=== PATIENT | female | born 1965 | race Caucasian/White ===

== ENCOUNTER → 2016-12-16 | Day surgery (SDC) | payer OTHER ==
[2016-12-15 09:14] VITALS: Ht 170.2 cm; Wt 95.5 kg
[~2016-12-16] VITALS: Ht 170.2 cm; Wt 95.5 kg
[~2016-12-16] MED LIST: AMLO2.5T PO; ASPI81TA28 PO; ATOR-26 PO; ATV/1 PO; CANA1TAB PO; DICY20TA10 PO; INSHI7030 SC; KFL500 PO; LCTX PO; LEVO175T3 PO; LIDOCAINE HCL 2% 2 ML VIAL (20MG/ML) ONE; LXP/20 PO; METF-384 PO; MIDAZOLAM HCL 1 MG/ML 2ML VIAL ONE; OMEP20CA9 PO; PROPOFOL IV EMULSION 10 MG/ML 20 ML VIAL IV ONE; TPRSR/25 PO
[2016-12-16 09:07] VITALS: TEMP 37
--- NOTE | 2016-12-16 09:55 | Endo History and Physical ---
History & Physical Date of Service: Dec 16, 2016. Chief Complaint: diarrhea and dyspepsia Referring Physician: Dr. Oralia Mccoy History of Present Illness ABd pain, diarrhea Past Medical History Diabetes, Anxiety, Cancer, Thyroid Disease, Depression Past Surgical History Hx Cardiac Surgery: No Hx Internal Defibrillator: No Hx Pacemaker: No Hx Abdominal Surgery: Yes (ZACKARY) Hx of Implantable Prosthesis: No Hx Post-Op Nausea and Vomiting: No Hx Cancer Surgery: Yes (THRYOIDECTOMY) Hx Thoracic Surgery: No Hx Orthopedic: Yes (LT FEMUR TUMOR REMOVAL X2 (BENIGN)) Hx Urinary Tract Surgery: No Family History None Social History Smoking Status: Never Smoker Hx Substance Use: No Hx Alcohol Use: No Allergies Coded Allergies: NO KNOWN DRUG ALLERGIES (Verified Allergy, Unknown, ., 12/15/16) Adhesives (Verified Adverse Reaction, Mild, TAPE-RASH, 12/15/16) Current Medications Reported Home Medications Medications Dose Route/Sig Max Daily Dose Days Date Category Dicyclomine Hcl 20 Mg Tab 2 Tabs PO HS 12/15/16 Reported Invokana (Canagliflozin) 100 Mg Tab 1 Tab PO QAM 12/15/16 Reported Ativan (Lorazepam) 1 Mg Tab 1 Mg PO Q6H PRN 12/15/16 Reported Aspirin Ec (Aspirin) 81 Mg Tab 81 Mg PO QAM 06/20/16 Reported Humulin 70/30 (Insulin Human Isoph/Insulin Regular) Inj 50 Units SC BID 06/20/16 Reported Glucophage (Metformin Hcl) 1,000 Mg Tab 1,000 Mg PO BID 06/20/16 Reported Metoprolol Succinate ER (Metoprolol Succinate) 25 Mg Tabcr 25 Mg PO HS 06/20/16 Reported Norvasc (Amlodipine Besylate) 2.5 Mg Tab 2.5 Mg PO HS 06/20/16 Reported Lipitor (Atorvastatin Calcium) 80 Mg Tab 80 Mg PO HS 06/20/16 Reported Ativan (Lorazepam) 1 Mg Tab 2 Tabs PO HS 06/20/16 Reported Escitalopram Oxalate 20 Mg Tab 20 Mg PO HS 06/20/16 Reported Prilosec (Omeprazole) 20 Mg Cap 20 Mg PO HS 09/26/14 Reported Levothyroxine Sodium 175 Mcg Tab 175 Mg PO HS 09/26/14 Reported Vital Signs Weight (Kilograms): 95.45 Height (Feet): 5 Height (Inches): 7 Date Time Temp Pulse Resp B/P Pulse Ox O2 Delivery O2 Flow Rate FiO2 12/16/16 09:07 37 70 20 137/76 98 Room Air Physical Exam General Appearance: no apparent distress Respiratory/Chest: Respiratory effort: no dyspnea Auscultation: breath sounds normal Cardiovascular: Heart Auscultation: RRR Abdomen: Inspection & Palpation: soft Assessment and Plan Abd pain, diarrhea - EGD, cscopy
--- NOTE | 2016-12-16 11:00 | GI REPORT ---
Procedure Date: 12/16/2016 9:23 AM Procedure: Upper GI endoscopy Indications: Abdominal pain - Pt describes left and right flank pain. Pain described as sharp, constant, not associated with food, worse when she lies on her left side. Medicines: See the Anesthesia note for documentation of the administered medications Complications: No immediate complications. Estimated Blood Loss: Estimated blood loss: none. Procedure: Pre-Anesthesia Assessment: - ASA Grade Assessment: III - A patient with severe systemic disease. After obtaining informed consent, the endoscope was passed under direct vision. Throughout the procedure, the patient's blood pressure, pulse, and oxygen saturations were monitored continuously. The scope was introduced through the mouth, and advanced to the second part of duodenum. The upper GI endoscopy was accomplished without difficulty. The patient tolerated the procedure well. Findings: The Z-line was irregular and was found 38 cm from the incisors. Biopsies were taken with a cold forceps for histology. The entire examined stomach was normal. Biopsies were taken with a cold forceps for histology. The examined duodenum was normal. Biopsies were taken with a cold forceps for histology. Impression: - Z-line irregular, 38 cm from the incisors. Biopsied. - Normal stomach. Biopsied. - Normal examined duodenum. Biopsied. Recommendation: - F/u with referring; please refer to GI clinic if needed. Her pain is likely functional; Would consider a trial of Bentyl for possible IBS/dysmotility. - Discharge patient to home. Alexey Urbina M.D. Alexey Urbina MD 12/16/2016 11:00:06 AM This report has been signed electronically. Note Initiated On: 12/16/2016 9:23 AM I attest to the content of the Intraoperative Record and orders documented therein, exceptions below
[2016-12-16 11:23] VITALS: BP 118/63; PULSE 66; O2SAT 99
--- NOTE | 2016-12-16 12:06 | Discharge Instructions ---
Endoscopy Patient Instructions Date / Procedure(s) Performed Dec 16, 2016. Colonoscopy, EGD Allergy Information Coded Allergies: NO KNOWN DRUG ALLERGIES (Verified Allergy, Unknown, ., 12/15/16) Adhesives (Verified Adverse Reaction, Mild, TAPE-RASH, 12/15/16) Discharge Date / Findings Dec 16, 2016. Normal colon. Unremarkable EGD. Biopsies done throughout. Medication Instructions Stopped Medication(s): stopped Metformin Wednesday,took ASA yesterday Restart Stopped Medication(s): Resume metformin, asa today. Provider Instructions Activity Restrictions - No exercising or heavy lifting for 24 hours. - Do not drink alcohol the day of the procedure. - Do not drive a car or operate machinery until the day after the procedure. - Do not make any important decisions or sign important papers in 24 hours after the procedure. Following Day: - Return to full activity which may include returning to work/school. Diet Start your diet with liquids and light foods (jello, soup, juice, toast). Then eat your usual diet if not nauseated. Treatment For Common After Affects For mild abdominal pain, bloating, or excessive gas: - Rest - Eat lightly - Lie on right side Follow-Up Information Follow-up with Dr. Oralia Mccoy as scheduled Anesthesia Information What You Should Know You have had a procedure that required some medicine to reduce anxiety and discomfort. This treatment is called moderate sedation. After receiving the treatment, you may be sleepy, but you will be able to breathe on your own. The effects of the treatment may last for several hours. Follow these instructions along with Activity/Diet recommendations noted above: * Do NOT do anything where dizziness or clumsiness would be dangerous. * Rest quietly at home today, then you can be up and about tomorrow. * Have a responsible person stay with you the rest of today. * You may have had an I.V. today. If so, you may take the dressing off later today. Recommendations Call your doctor if: * Trouble breathing * Continuous vomiting for more than 24 hours * Temperature above 101 degrees * Severe abdominal pain or bloating * Pain not relieved by pain medicine ordered * There is increased drainage or redness from any incision * A large amount of rectal bleeding greater than 2-3 tablespoons. (If you had a polyp/s removed or have hemorrhoids, a small amount of blood - from the rectum is to be expected.) * You have any unanswered questions or concerns. IN THE EVENT OF A SERIOUS EMERGENCY, GO TO THE NEAREST EMERGENCY ROOM Your discharge instructions were prepared by provider Aleexy Kraus. Patient Instructions Signature Page Juany Resendez Patient (or Guardian) Signature/Date: I have read and understand the instructions given to me by my caregivers. Caregiver/RN/Doctor Signature/Date: The above-named patient and/or guardian has received patient instructions on this date. + Original Patient Signature Page (only) stays with chart. Please make copy for patient.
--- NOTE | 2016-12-16 14:01 | Anesthesiology Progress Note ---
Anesthesia Post Op Note Date & Time Dec 16, 2016 at 14:01 Vital Signs Pain Intensity: 0 Vital Signs Past 12 Hours Date Time Temp Pulse Resp B/P Pulse Ox O2 Delivery O2 Flow Rate FiO2 12/16/16 11:23 66 20 118/63 99 Room Air 12/16/16 11:08 72 20 103/61 98 Room Air 12/16/16 10:53 72 20 101/55 96 Room Air 12/16/16 09:07 37 70 20 137/76 98 Room Air Notes Mental Status: alert / awake / arousable, participated in evaluation Pt Amnestic to Procedure: Yes Nausea / Vomiting: adequately controlled Pain: adequately controlled Airway Patency, RR, SpO2: stable & adequate BP & HR: stable & adequate Hydration State: stable & adequate Anesthetic Complications: no major complications apparent
[2016-12-17 21:35] LABS: O&P GIARDIA AG NOT DETECTED (NOT DETECTED)
== END | disposition home or self-care (01) ==
LOC: C.GI 08:10
PROVIDERS: ATTEND Internal Medicine Gastroenterology
DX: Z12.11 Encounter for screening for malignant neoplasm of colon (principal); D12.2 Benign neoplasm of ascending colon; K29.50 Unspecified chronic gastritis without bleeding; R19.7 Diarrhea, unspecified; R10.13 Epigastric pain; E11.9 Type 2 diabetes mellitus without complications; Z79.4 Long term (current) use of insulin; Z79.899 Other long term (current) drug therapy; E07.9 Disorder of thyroid, unspecified

== ENCOUNTER 2017-05-04 17:30 | Observation (INO) | payer OTHER ==
[~2017-05-04] VITALS: Ht 170.2 cm; Wt 95.4 kg
[~2017-05-04 17:30] MED LIST changes: -KFL500 PO; -LCTX PO; -LIDOCAINE HCL 2% 2 ML VIAL (20MG/ML) ONE; -MIDAZOLAM HCL 1 MG/ML 2ML VIAL ONE; -PROPOFOL IV EMULSION 10 MG/ML 20 ML VIAL IV ONE
--- NOTE | 2017-05-04 18:17 | DIAGNOSTIC IMAGING REPORT ---
CHEST ONE VIEW PORTABLE CLINICAL HISTORY: weakness dyspnea COMPARISON STUDY: 06/20/2016 FINDINGS: The bones soft tissues and hemidiaphragms are normal. The cardiomediastinal silhouette is normal. The lungs are clear. The pulmonary vasculature is normal. IMPRESSION: Negative chest. Electronically signed by: Christian Hughes M.D. 05/04/2017 6:16 PM Dictated Date/Time: 05/04/2017 6:15 PM
[2017-05-04 18:31] LABS: BASO % 0.7 %; BASO ABS # 0.09 K/uL (0-0.2); COMPLETE YES; EOS % 4.1 %; IG% 0.8 %; LYMPH % 26.1 %; LYMPH ABS # 3.45 K/uL (1.2-3.4); MEAN CELL VOLUME 86.6 fL (80-100); MEAN CORPUSCULAR HEMOGLOBIN 28.9 pg (25-34); MEAN CORPUSCULAR HGB CONC 33.4 g/dl (32-36); MEAN PLATELET VOLUME 9.6 fL (7.4-10.4); MONO % 7.8 %; NEUT % 60.5 %; PLATELET COUNT 320 K/uL (130-400); RED BLOOD COUNT 5.43 M/uL (4.2-5.4); WHITE BLOOD COUNT 13.23 K/uL (4.8-10.8)
[2017-05-04 18:49] LABS: ALT/SGPT 27 U/L (12-78); BLOOD UREA NITROGEN 19 mg/dl (7-18); BUN/CREATININE RATIO 24.6 (10-20); CALCIUM 9.3 mg/dl (8.5-10.1); CARBON DIOXIDE 26 mmol/L (21-32); CHLORIDE 102 mmol/L (98-107); CREATININE 0.79 mg/dl (0.60-1.20); GLUCOSE 135 mg/dl (70-99); MAGNESIUM 1.9 mg/dl (1.8-2.4); SODIUM 137 mmol/L (136-145)
[2017-05-04 18:55] LABS: PROTHROMBIN TIME (PATIENT) 10.2 SECONDS (9.0-12.0)
[2017-05-04 18:59] LABS: ALB/GLOB RATIO 0.9 (0.9-2); ALKALINE PHOSPHATASE 84 U/L (45-117); AST/SGOT 16 U/L (15-37)
[2017-05-04 19:39] LABS: URINE APPEARANCE CLOUDY (CLEAR); URINE BILIRUBIN NEG (NEG); URINE COLOR YELLOW; URINE EPITHELIAL CELL AUTO >30 /lpf (0-5); URINE NITRITE NEG (NEG); URINE SPECIFIC GRAVITY 1.032 (1.000-1.030); UROBILINOGEN NEG (NEG); ZZUR CULT IF INDIC CLEAN CATCH YES
[2017-05-04 19:42] LABS: MANUAL MICROSCOPIC REQUIRED? NO; REVIEW REQ? NO
[2017-05-04] MEDS ORDERED: SODIUM CHLORIDE 0.9% 1000ML 1,000 ML IV STA (19:45)
[2017-05-04] MEDS ORDERED: CEFTRIAXONE SOD INJ 1 GM ADDVIAL IV STA (19:45)
[2017-05-04 19:47] LABS: LYME DISEASE AB IGG NEG (NEG); LYME DISEASE AB IGM NEG (NEG)
--- NOTE | 2017-05-04 20:53 | EMERGENCY ROOM VISIT NOTE ---
History Report prepared by Maximilian: Fiorella Landry Under the Supervision of: Dr. Marti Talbot D.O. First contact with patient: 17:39 Chief Complaint: BILATERAL LEG WEAKNESS Stated Complaint: WEAKNESS IN ARMS & LEGS History of Present Illness The patient is a 52 year old female who presents to the Emergency Room with complaints of persistent bilateral arm and leg weakness starting 1 month ago. The patient was sent here by her PCP for blood work and possible admission. She notes that her arms and legs are sore. She has been taking ibuprofen to no significant relief. She thought she might have the flu at first, but is concerned because her symptoms have not improved. She reports that her legs are itchy, red, and warm. She denies any cough, diarrhea, SOB, or cold symptoms. She has been urinating often because of Invokana. She denies any sick contacts or recent travel. She was started on Invokana 1 month ago. Pt isn't sure if medication is related to this. She denies any other medication changes. Denies sick contacts. She is on aspirin. She has a history of HI and stroke. Source of History: patient Onset: 1 month ago Position: other (bilateral arms and legs) Quality: other (weakness) Timing: other (persistent) Associated Symptoms: No cough, No SOB, No diarrhea Note: Pt reports extremity warmth, redness, itchiness, and soreness. Pt denies cold symptoms. Review of Systems See HPI for pertinent positives & negatives. A total of 10 systems reviewed and were otherwise negative. Past Medical & Surgical Medical Problems: (1) Anxiety (2) Diabetes mellitus, type II (3) History enchondroma of left femur (4) History of thyroid cancer (5) History of toxic multinodular goiter (6) Obsessive compulsive disorder (7) Postsurgical hypothyroidism Surgical Problems: (1) Status post cholecystectomy (2) Status post excision enchondroma left femur (3) Status post thyroidectomy Family History Diabetes mellitus BROTHER BROTHER Myocardial infarction FATHER Ovarian cancer MOTHER Social History Smoking Status: Never Smoker Alcohol Use: none Marital Status: single Housing Status: lives with significant other Occupation Status: unemployed Current/Historical Medications Scheduled Amlodipine Besylate (Norvasc), 2.5 MG PO HS Aspirin (Aspirin Ec), 81 MG PO QAM Atorvastatin (Lipitor), 80 MG PO HS Canagliflozin (Invokana), 1 TAB PO QAM Cephalexin Monohydrate (Cephalexin), 500 MG PO TID Dicyclomine Hcl (Dicyclomine Hcl), 2 TABS PO HS Escitalopram Oxalate (Escitalopram Oxalate), 20 MG PO HS Insulin Human Isophan/Regular (Humulin 70/30), 50 UNITS SC BID Lactobacillus Acidophilus (Lactinex), 2 TAB PO TID Levothyroxine Sodium (Levothyroxine Sodium), 175 MG PO HS Lorazepam (Ativan), 2 TABS PO HS Metformin Hcl (Glucophage), 1,000 MG PO BID Metoprolol Succinate (Metoprolol Succinate ER), 25 MG PO HS Omeprazole (Prilosec), 20 MG PO HS Allergies Coded Allergies: NO KNOWN DRUG ALLERGIES (Verified Allergy, Unknown, ., 05/04/17) Adhesives (Verified Adverse Reaction, Mild, TAPE-RASH, 05/04/17) Physical Exam Vital Signs Date Time Temp Pulse Resp B/P (MAP) Pulse Ox O2 Delivery O2 Flow Rate FiO2 05/04/17 22:00 69 20 116/73 95 Room Air 05/04/17 19:38 74 20 119/76 95 Room Air 05/04/17 17:34 36.7 79 18 121/80 96 Room Air Physical Exam GENERAL: alert, well appearing, well nourished, no distress, non-toxic EYE EXAM: normal conjunctiva, PERRL and EOM's grossly intact OROPHARYNX: no exudate, no erythema, lips, buccal mucosa, and tongue normal and mucous membranes are moist NECK: supple, no nuchal rigidity, no adenopathy, non-tender LUNGS: Clear to auscultation. Normal chest wall mechanics HEART: no murmurs, S1 normal and S2 normal ABDOMEN: abdomen soft, non-tender, normo-active bowel sounds, no masses, no rebound or guarding. BACK: Back is symmetrical on inspection and there is no deformity, no midline tenderness, no CVA tenderness. SKIN: no rashes and no bruising EXTREMITIES: No pitting edema. Normal capillary refill. NEURO EXAM: Normal speech, no facial droop, markedly diminished reflexes in upper and lower extremities bilaterally, weakness in upper and lower extremities in proximal and distal muscles groups. Medical Decision & Procedures ER Provider Diagnostic Interpretation: Xray results have been interpreted by the radiologist and me. CHEST ONE VIEW PORTABLE CLINICAL HISTORY: weakness dyspnea COMPARISON STUDY: 06/20/2016 FINDINGS: The bones soft tissues and hemidiaphragms are normal. The cardiomediastinal silhouette is normal. The lungs are clear. The pulmonary vasculature is normal. IMPRESSION: Negative chest. Electronically signed by: Christian Hughes M.D. 05/04/2017 6:16 PM Dictated Date/Time: 05/04/2017 6:15 PM Laboratory Results 05/04/17 18:15 Test 05/04/17 18:15 05/04/17 18:45 05/04/17 18:50 Prothrombin Time 10.2 SECONDS (9.0-12.0) Prothromb Time International Ratio 1.0 (0.9-1.1) Anion Gap 9.0 mmol/L (3-11) Est Creatinine Clear Calc Drug Dose 96.6 ml/min Estimated GFR () 98.4 Estimated GFR (Non- 84.9 BUN/Creatinine Ratio 24.6 (10-20) Estimated Average Glucose 174 mg/dl Hemoglobin A1c 7.7 % (4.5-5.6) Calcium Level 9.3 mg/dl (8.5-10.1) Magnesium Level 1.9 mg/dl (1.8-2.4) Total Bilirubin 0.5 mg/dl (0.2-1) Aspartate Amino Transf (AST/SGOT) 16 U/L (15-37) Alanine Aminotransferase (ALT/SGPT) 27 U/L (12-78) Alkaline Phosphatase 84 U/L (45-117) Troponin I < 0.015 ng/ml (0-0.045) Total Protein 8.2 gm/dl (6.4-8.2) Albumin 3.8 gm/dl (3.4-5.0) Globulin 4.4 gm/dl (2.5-4.0) Albumin/Globulin Ratio 0.9 (0.9-2) Lipase 162 U/L (73-393) Thyroid Stimulating Hormone (TSH) 2.480 uIu/ml (0.300-4.500) Rapid Plasma Reagin NONREACTIVE (NONREACT) Lyme Disease IgG Antibody NEG (NEG) Lyme Disease IgM Antibody NEG (NEG) Monoscreen NEG (NEG) Urine Color YELLOW Urine Appearance CLOUDY (CLEAR) Urine pH 5.0 (4.5-7.5) Urine Specific [place] 1.032 (1.000-1.030) Urine Protein NEG (NEG) Urine Glucose (UA) 3+ (NEG) Urine Ketones NEG (NEG) Urine Occult Blood TRACE (NEG) Urine Nitrite NEG (NEG) Urine Bilirubin NEG (NEG) Urine Urobilinogen NEG (NEG) Urine Leukocyte Esterase MODERATE (NEG) Urine WBC (Auto) >30 /hpf (0-5) Urine RBC (Auto) 0-4 /hpf (0-4) Urine Hyaline Casts (Auto) 1-5 /lpf (0-5) Urine Epithelial Cells (Auto) >30 /lpf (0-5) Urine Bacteria (Auto) 1+ (NEG) Influenza Type A Antigen Neg for Influ A (NEG) Influenza Type B Antigen Neg for Influ B (NEG) Date/Time Source Procedure Growth Status 05/04/17 18:45 Urine , Clean Catch Urine Culture - Final THREE TYPES OF ORGANISMS PRESENT, ALL... Complete Laboratory results per my review. Medications Administered Medications (Trade) Dose Ordered Sig/Angie Route Start Time Stop Time Status Last Admin Dose Admin Ceftriaxone Sodium (Rocephin Inj) 1 gm NOW STAT IV 05/04/17 19:45 05/04/17 19:47 DC 05/04/17 19:58 1 GM Sodium Chloride 1,000 ml @ 999 mls/hr Q1H1M STAT IV 05/04/17 19:45 05/04/17 20:45 DC 05/04/17 19:45 999 MLS/HR ECG Indication: weakness Rate (beats per minute): 75 Rhythm: sinus rhythm Findings: Q waves (lead 3, aVF), RBBB, no acute ischemic change, other (normal axis) Comparison ECG Date: 20-Jun-2016 Change: no significant change ED Course 1750: The patient was evaluated in room B4B. A complete history and physical exam was performed. 0: I discussed the patient's case with the patient's PCP, Dr. Mccoy, [facility]. She informed me of her concerns regarding the patient. She feels pt needs admission and possible neurology evaluation. 0: Upon reevaluation, the patient is resting comfortably. I discussed the findings and the treatment plan with the patient. She expresses agreement and understanding. She will be evaluated for further management. 1944: NSS 1000 ml @ 999 mls/hr IV, Rocephin Inj 1 gm IV. 2045: I reviewed the patient's [facility] will evaluate the patient for further management. Medical Decision Differential diagnosis: Etiologies such as metabolic, infection, hypo/hyperglycemia, electrolyte abnormalities, cardiac sources, intracerebral event, toxicologic, neurologic, as well as others were entertained. Medication Reconciliation: I attest that I have personally reviewed the patient' s current medication list. Blood pressure screening: Patient was found to have normal blood pressure on screening and does not require follow-up. Pt well appearing here but with appreciable weakness and diminished reflexes with mild ataxia. VS stable. Labs reassuring. Early UTI but doubt etiology for one month of symptoms. Pt aware of all results here and PCP recommendation. Pt agreeable. No clear etiology, doubt cva/ICH, meningitis/ encephalitis. Did not feel pt warranted LP at this time. No evidence of bacteremia/sepsis, doubt vascular etiology. Consults Time Called: 1809 Consulting Physician: Caroline Gomes - [facility] Returned Call: [phone] I discussed the patient's case with her. She informed me of her concerns regarding the patient. Additional Consults: Time Called: 2005 [facility] Returned Call: 2045 Additional Comments: I reviewed the patient's case with him. He will evaluate the patient for further management. Impression Primary Impression: Generalized weakness Additional Impressions: Ataxia UTI (urinary tract infection) Scribe Attestation The scribe's documentation has been prepared under my direction and personally reviewed by me in its entirety. I confirm that the note above accurately reflects all work, treatment, procedures, and medical decision making performed by me. Departure Information Dispostion Being Evaluated By Hospitalist Prescriptions Lactobacillus Acidophilus (Lactinex) Tab 2 TAB PO TID, #30 TAB Prov: Richi Thornton M.D. 05/06/17 Cephalexin Monohydrate (Cephalexin) 500 Mg Cap 500 MG PO TID for 3 Days, #10 CAP Prov: Richi Thornton M.D. 05/06/17 Referrals Oralia Mccoy M.D. (PCP) Patient Instructions My [facility] Problem Qualifiers Additional Impressions: UTI (urinary tract infection) Urinary tract infection type: acute cystitis Hematuria presence: without hematuria Qualified Codes: N30.00 - Acute cystitis without hematuria
--- NOTE | 2017-05-04 21:49 | DIAGNOSTIC IMAGING REPORT ---
HEAD CT NONCONTRAST CT DOSE: 614.27 mGy.cm HISTORY: Mental status change arms, legs weakness TECHNIQUE: Multiaxial CT images of the head were performed without the use of intravenous contrast. Comparison: None. Findings: The paranasal sinuses and mastoid air cells are clear. The calvarium and skull base are intact. The ventricles and sulci are within normal limits. There is no mass, hematoma, midline shift, or acute infarct. Impression: No acute intracranial abnormality. Electronically signed by: Christian Hughes M.D. 05/04/2017 9:47 PM Dictated Date/Time: 05/04/2017 9:47 PM
[2017-05-04] MEDS ORDERED: INSULIN ASPART 100 UNITS/ML 3 ML PEN SC ONE (22:20)
[2017-05-04] MEDS ORDERED: KETOROLAC TROMETHAMINE 30 MG/ML VIAL IV ONE (22:20)
[2017-05-04] MEDS ORDERED: KETOROLAC TROMETHAMINE 30 MG/ML VIAL IV PRN (22:30)
[2017-05-04] MEDS ORDERED: GLUCAGON FOR INJ 1 MG VIAL SQ PRN (22:30)
[2017-05-04] MEDS ORDERED: GLUCOSE 10 TABS/TUBE PO PRN (22:30)
[2017-05-04] MEDS ORDERED: IBUPROFEN 200 MG TAB PO PRN (22:30)
[2017-05-04] MEDS ORDERED: TRAMADOL HCL 50 MG TAB PO PRN (22:30)
[2017-05-04] MEDS ORDERED: ACETAMINOPHEN 325 MG TAB PO PRN (22:30)
[2017-05-04] MEDS ORDERED: SODIUM CHLORIDE 0.9% 1000ML 1,000 ML IV ONE (22:30)
[2017-05-04] MEDS ORDERED: ONDANSETRON INJ 2 MG/ML 2 ML VIAL IV PRN (22:30)
[2017-05-04] MEDS ORDERED: GLUCOSE 40% GEL 15 GM TUBE PO PRN (22:30)
[2017-05-04] MEDS ORDERED: DEXTROSE 50% 50 ML SYR IV PRN (22:30)
[2017-05-04] MEDS ORDERED: IV FLUIDS COMPLETED PRN (23:00)
[2017-05-05] VITALS (7 sets, daily range): BP systolic 116–133; BP diastolic 73–96; PULSE 63–75; TEMP 36.7; O2SAT 97–98; Ht 170.2 cm; Wt 95.4 kg
[2017-05-05] MEDS ORDERED: GADAVIST IV PRN (01:00)
[2017-05-05] MEDS: LEVOTHYROXINE 175 MCG TAB PO SCH ×2 (01:27→19:54)
--- NOTE | 2017-05-05 01:48 | History and Physical ---
History & Physical Date & Time of Service: May 05, 2017 at 01:43 Chief Complaint: legs, arms weakness Primary Care Physician: Oralia Mccoy M.D. History of Present Illness Source: patient, clinic records, hospital records Last month patient started on Invokana by PCP for diabetes. Improved blood sugars. Patient recalls not feeling well after starting medication. Flulike symptoms. Patient later noted achy weakness both legs and arms, more of the legs. Some trouble walking. No headache no chest pain no shortness of breath. Denies abdominal discomfort or bladder symptoms. No unusual back pain. Patient sent to the ER by PCP for worsening symptoms. At the emergency room, patient received ceftriaxone for possible UTI. Past Medical/Surgical History Medical Problems: (1) Anxiety Status: Chronic (2) Diabetes mellitus, type II Status: Chronic (3) History enchondroma of left femur Status: Chronic (4) History of thyroid cancer Status: Chronic (5) History of toxic multinodular goiter Status: Chronic (6) Obsessive compulsive disorder Status: Chronic (7) Postsurgical hypothyroidism Status: Chronic Surgical Problems: (1) Status post cholecystectomy Status: Chronic (2) Status post excision enchondroma left femur Status: Chronic (3) Status post thyroidectomy Status: Chronic Family History Diabetes mellitus BROTHER BROTHER Myocardial infarction FATHER Ovarian cancer MOTHER Social History Smoking Status: Former Smoker Alcohol Use: none Marital Status: single Housing status: lives with significant other Occupational Status: unemployed, disabled Immunizations History of Influenza Vaccine: No History of Tetanus Vaccine?: No Tetanus Immunization Date: Feb 06, 2009 History of Pneumococcal: No History of Hepatitis B Vaccine: Unknown Multi-Drug Resistant Organisms History of MDRO: No Allergies Coded Allergies: NO KNOWN DRUG ALLERGIES (Verified Allergy, Unknown, ., 05/04/17) Adhesives (Verified Adverse Reaction, Mild, TAPE-RASH, 05/04/17) Home Medications Scheduled Amlodipine Besylate (Norvasc), 2.5 MG PO HS Aspirin (Aspirin Ec), 81 MG PO QAM Atorvastatin (Lipitor), 80 MG PO HS Canagliflozin (Invokana), 1 TAB PO QAM Dicyclomine Hcl (Dicyclomine Hcl), 2 TABS PO HS Escitalopram Oxalate (Escitalopram Oxalate), 20 MG PO HS Insulin Human Isophan/Regular (Humulin 70/30), 50 UNITS SC BID Levothyroxine Sodium (Levothyroxine Sodium), 175 MG PO HS Lorazepam (Ativan), 2 TABS PO HS Metformin Hcl (Glucophage), 1,000 MG PO BID Metoprolol Succinate (Metoprolol Succinate ER), 25 MG PO HS Omeprazole (Prilosec), 20 MG PO HS Physical Exam Vital Signs Date Time Temp Pulse Resp B/P (MAP) Pulse Ox O2 Delivery O2 Flow Rate FiO2 05/05/17 01:05 36.7 75 20 116/73 Room Air 05/04/17 22:00 69 20 116/73 95 Room Air 05/04/17 19:38 74 20 119/76 95 Room Air 05/04/17 17:34 36.7 79 18 121/80 96 Room Air General Appearance: no apparent distress, + obese Head: normocephalic Eyes: normal inspection ENT: pharynx normal Neck: supple (short), + pertinent finding Respiratory/Chest: + decreased breath sounds Cardiovascular: regular rate, rhythm Abdomen/GI: soft Extremities/Musculoskelatal: non-tender Neurologic/Psych: + motor weakness, + pertinent finding (upper extremity MMT 4 over 5 lower extremity MMT 3 over 5) Diagnostics Laboratory Results Results Past 24 Hours Test 05/04/17 18:15 05/04/17 18:45 05/04/17 18:50 05/05/17 00:21 Range/Units White Blood Count 13.23 4.8-10.8 K/uL Red Blood Count 5.43 4.2-5.4 M/uL Hemoglobin 15.7 12.0-16.0 g/dL Hematocrit 47.0 37-47 % Mean Corpuscular Volume 86.6 80-100 fL Mean Corpuscular Hemoglobin 28.9 25-34 pg Mean Corpuscular Hemoglobin Concent 33.4 32-36 g/dl Platelet Count 320 130-400 K/uL Mean Platelet Volume 9.6 7.4-10.4 fL Neutrophils (%) (Auto) 60.5 % Lymphocytes (%) (Auto) 26.1 % Monocytes (%) (Auto) 7.8 % Eosinophils (%) (Auto) 4.1 % Basophils (%) (Auto) 0.7 % Neutrophils # (Auto) 8.02 1.4-6.5 K/uL Lymphocytes # (Auto) 3.45 1.2-3.4 K/uL Monocytes # (Auto) 1.03 0.11-0.59 K/uL Eosinophils # (Auto) 0.54 0-0.5 K/uL Basophils # (Auto) 0.09 0-0.2 K/uL RDW Standard Deviation 49.0 36.4-46.3 fL RDW Coefficient of Variation 15.5 11.5-14.5 % Immature Granulocyte % (Auto) 0.8 % Immature Granulocyte # (Auto) 0.10 0.00-0.02 K/uL Prothrombin Time 10.2 9.0-12.0 SECONDS Prothromb Time International Ratio 1.0 0.9-1.1 Sodium Level 137 136-145 mmol/L Potassium Level 4.0 3.5-5.1 mmol/L Chloride Level 102 98-107 mmol/L Carbon Dioxide Level 26 21-32 mmol/L Anion Gap 9.0 3-11 mmol/L Blood Urea Nitrogen 19 7-18 mg/dl Creatinine 0.79 0.60-1.20 mg/dl Est Creatinine Clear Calc Drug Dose 96.6 ml/min Estimated GFR () 98.4 Estimated GFR (Non- 84.9 BUN/Creatinine Ratio 24.6 10-20 Random Glucose 135 70-99 mg/dl Lactic Acid Level 2.1 1.3 0.4-2.0 mmol/L Calcium Level 9.3 8.5-10.1 mg/dl Magnesium Level 1.9 1.8-2.4 mg/dl Total Bilirubin 0.5 0.2-1 mg/dl Aspartate Amino Transf (AST/SGOT) 16 15-37 U/L Alanine Aminotransferase (ALT/SGPT) 27 12-78 U/L Alkaline Phosphatase 84 45-117 U/L Total Creatine Kinase 99 26-192 U/L Troponin I < 0.015 0-0.045 ng/ml Total Protein 8.2 6.4-8.2 gm/dl Albumin 3.8 3.4-5.0 gm/dl Globulin 4.4 2.5-4.0 gm/dl Albumin/Globulin Ratio 0.9 0.9-2 Lipase 162 73-393 U/L Thyroid Stimulating Hormone (TSH) 2.480 0.300-4.500 uIu/ml Lyme Disease IgG Antibody NEG NEG Lyme Disease IgM Antibody NEG NEG Monoscreen NEG NEG Urine Color YELLOW Urine Appearance CLOUDY CLEAR Urine pH 5.0 4.5-7.5 Urine Specific [place] 1.032 1.000-1.030 Urine Protein NEG NEG Urine Glucose (UA) 3+ NEG Urine Ketones NEG NEG Urine Occult Blood TRACE NEG Urine Nitrite NEG NEG Urine Bilirubin NEG NEG Urine Urobilinogen NEG NEG Urine Leukocyte Esterase MODERATE NEG Urine WBC (Auto) >30 0-5 /hpf Urine RBC (Auto) 0-4 0-4 /hpf Urine Hyaline Casts (Auto) 1-5 0-5 /lpf Urine Epithelial Cells (Auto) >30 0-5 /lpf Urine Bacteria (Auto) 1+ NEG Influenza Type A Antigen Neg for Influ A NEG Influenza Type B Antigen Neg for Influ B NEG Test 05/05/17 00:43 Range/Units Bedside Glucose 80 70-90 mg/dl Microbiology Results 05/04/17 Urine Culture, Received Pending Diagnostic Radiology CT head no acute pathology Impression Assessment and Plan AP Bilateral LE > UE weakness of one month duration myopathy (? 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 LE pain 2 to myopathy ro recurrent DVT (hx DVT during as per px (did not need anticoag as per px) hx CVA as per records HTN, stable DM2, insulin requiring, suboptimal control as of recent HgA1c asymptomatic pyuria, no sepsis thyroid CA sp surgery OBS GMF MRI brain Neuro opinion RE ellen leg/arm weakness PT/OT eval LE dopplers ro dvt basal insulin, ISS BG goal 140-180, px due for HgA1C recheck hold Invokana (may need inclusion in ADR list) hold off on antibiotics for asymptomatic pyuria DVT prophylaxis, Lovenox SQ Full code Advanced Directives Existing Living Will: No Existing Power of Dressage Instructor: No VTE Prophylaxis VTE Risk Assessment Done? Y/N: Yes Risk Level: High
[2017-05-05] MEDS ORDERED: LEVOTHYROXINE 175 MCG TAB PO SCH (06:30)
[2017-05-05 06:34] LABS: ESTIMATED AVERAGE GLUCOSE 174 mg/dl; HA1C FLAG Normal (Normal)
[2017-05-05 06:45] LABS: BASO % 0.5 %; BASO ABS # 0.07 K/uL (0-0.2); COMPLETE YES; EOS % 3.6 %; HEMATOCRIT 43.8 % (37-47); IG% 0.5 %; LYMPH % 30.7 %; LYMPH ABS # 4.05 K/uL (1.2-3.4); MEAN CELL VOLUME 86.6 fL (80-100); MEAN CORPUSCULAR HEMOGLOBIN 28.3 pg (25-34); MEAN CORPUSCULAR HGB CONC 32.6 g/dl (32-36); MEAN PLATELET VOLUME 9.6 fL (7.4-10.4); MONO % 9.4 %; NEUT % 55.3 %; PLATELET COUNT 288 K/uL (130-400); RED BLOOD COUNT 5.06 M/uL (4.2-5.4); WHITE BLOOD COUNT 13.21 K/uL (4.8-10.8)
--- NOTE | 2017-05-05 07:04 | DIAGNOSTIC IMAGING REPORT ---
ULTRASOUND BILATERAL LOWER EXTREMITY VENOUS CLINICAL HISTORY: Leg pain. COMPARISON STUDY: Bilateral lower extremity venous ultrasound dated 03/31/2010. TECHNIQUE: Real-time, grayscale, and color Doppler sonography of the deep veins of the right and left lower extremity was performed from the inguinal crease to the calf. Compression and augmentation were utilized. FINDINGS: There is no sonographic evidence of deep venous thrombosis identified in the right or left lower extremity. The common femoral, superficial femoral, and popliteal veins are patent and normally compressible bilaterally. The greater saphenous vein and the profunda femoris vein at the junction with the common femoral vein are clear in both legs. The visualized calf veins are patent bilaterally. IMPRESSION: There is no sonographic evidence of deep venous thrombosis identified in the right or left lower extremity. Electronically signed by: Odilon Colon M.D. 05/05/2017 7:03 AM Dictated Date/Time: 05/05/2017 7:02 AM
--- NOTE | 2017-05-05 07:21 | DIAGNOSTIC IMAGING REPORT ---
MRI OF THE BRAIN COMBO CLINICAL HISTORY: Bilateral upper and lower extremity weakness. COMPARISON STUDY: CT of the brain dated 04/27/1717. MRI of the brain dated 03/18/2015. TECHNIQUE: MRI of the brain was performed utilizing various T1 and T2-weighted sequences in the axial, sagittal, and coronal planes. Contrast-enhanced sequences were acquired following the administration of 9.5 cc of Gadavist. FINDINGS: Brain parenchyma: There are scattered punctate foci of T2 signal abnormality within the periventricular white matter. This likely represents minimal microangiopathic change. The brain parenchyma is otherwise normal in appearance. There is no hemorrhage or mass effect. There is no restricted diffusion to suggest acute ischemia. No enhancing mass lesion is identified on the postcontrast images. Garza-white matter differentiation is preserved. No extra-axial fluid collection is seen. The cerebellar tonsils are normal in configuration. Ventricles, sulci, and cisterns: Normal in configuration. Pituitary and sella: Unremarkable. Intracranial vasculature: Normal flow voids are maintained at the skull base. Orbits: The bony orbits are grossly intact. Orbital contents are normal in appearance. Sinuses and mastoids: Clear. Calvarium: Unremarkable. Cervical cord: Partially visualized cervical spinal cord is normal in morphology and signal intensity. IMPRESSION: No acute intracranial abnormality. Electronically signed by: Odilon Colon M.D. 05/05/2017 7:20 AM Dictated Date/Time: 05/05/2017 7:17 AM
[2017-05-05] MEDS ORDERED: INSULIN GLARGINE SOLOSTAR 100 UNITS/ML 3 ML PEN SC SCH (08:00)
[2017-05-05] MEDS: INSULIN ASPART 100 UNITS/ML 3 ML PEN SC SCH ×4 (08:02→21:19)
[2017-05-05] MEDS: ENOXAPARIN 40 MG/0.4 ML SYR SQ SCH (08:14)
[2017-05-05] MEDS: ASPIRIN 81 MG ECTAB PO SCH (08:14)
[2017-05-05] MEDS: INSULIN GLARGINE SOLOSTAR 100 UNITS/ML 3 ML PEN SC SCH ×2 (08:17→19:53)
--- NOTE | 2017-05-05 14:55 | Progress Note ---
Internal Med Progress Note Date of Service: May 05, 2017. Provider Documentation: SUBJECTIVE: The patient was seen and examined Admitted with weak limbs ,Leg more than the arms Completely resolved now OBJECTIVE: Vital Signs-as noted below Exam: General-no distress at rest Eyes-normal ENT-normal Neck-Supple Lungs-clear to auscultate bilaterally Heart-Regular,no murmur Abdomen-Benign,no masses,bowel sound present Extremities-No edema Neuro-AAOx3 NO focal sensory and or motor deficit Lab data as noted below. 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 Symptoms resolved following admission to the hospital Denies any more symptoms Neurology consulted CT and MRI of the Head-unremarkable PT/OT eval LE pain 2 to myopathy ro recurrent DVT (hx DVT during as per px (did not need anticoag as per px) CVA as per records No evidence of DVT HTN, stable DM2, insulin requiring, suboptimal control as of recent HgA1c SSI and Blood sugar ACHS Possible UTI Asymptomatic pyuria, no sepsis Check U C/S Started on Ceftriaxone Thyroid CA sp surgery DVT prophylaxis, Lovenox SQ Full code Vital Signs: Date Time Temp Pulse Resp B/P (MAP) Pulse Ox O2 Delivery O2 Flow Rate FiO2 05/05/17 09:07 72 98 05/05/17 08:00 97 Room Air 05/05/17 07:12 36.7 64 18 124/75 (91) 97 Room Air 05/05/17 01:05 36.7 75 20 116/73 Room Air 05/04/17 22:00 69 20 116/73 95 Room Air 05/04/17 19:38 74 20 119/76 95 Room Air 05/04/17 17:34 36.7 79 18 121/80 96 Room Air Lab Results: Results Past 24 Hours Test 05/04/17 18:15 05/04/17 18:45 05/04/17 18:50 05/05/17 00:21 Range/Units White Blood Count 13.23 4.8-10.8 K/uL Red Blood Count 5.43 4.2-5.4 M/uL Hemoglobin 15.7 12.0-16.0 g/dL Hematocrit 47.0 37-47 % Mean Corpuscular Volume 86.6 80-100 fL Mean Corpuscular Hemoglobin 28.9 25-34 pg Mean Corpuscular Hemoglobin Concent 33.4 32-36 g/dl Platelet Count 320 130-400 K/uL Mean Platelet Volume 9.6 7.4-10.4 fL Neutrophils (%) (Auto) 60.5 % Lymphocytes (%) (Auto) 26.1 % Monocytes (%) (Auto) 7.8 % Eosinophils (%) (Auto) 4.1 % Basophils (%) (Auto) 0.7 % Neutrophils # (Auto) 8.02 1.4-6.5 K/uL Lymphocytes # (Auto) 3.45 1.2-3.4 K/uL Monocytes # (Auto) 1.03 0.11-0.59 K/uL Eosinophils # (Auto) 0.54 0-0.5 K/uL Basophils # (Auto) 0.09 0-0.2 K/uL RDW Standard Deviation 49.0 36.4-46.3 fL RDW Coefficient of Variation 15.5 11.5-14.5 % Immature Granulocyte % (Auto) 0.8 % Immature Granulocyte # (Auto) 0.10 0.00-0.02 K/uL Prothrombin Time 10.2 9.0-12.0 SECONDS Prothromb Time International Ratio 1.0 0.9-1.1 Sodium Level 137 136-145 mmol/L Potassium Level 4.0 3.5-5.1 mmol/L Chloride Level 102 98-107 mmol/L Carbon Dioxide Level 26 21-32 mmol/L Anion Gap 9.0 3-11 mmol/L Blood Urea Nitrogen 19 7-18 mg/dl Creatinine 0.79 0.60-1.20 mg/dl Est Creatinine Clear Calc Drug Dose 96.6 ml/min Estimated GFR () 98.4 Estimated GFR (Non- 84.9 BUN/Creatinine Ratio 24.6 10-20 Random Glucose 135 70-99 mg/dl Estimated Average Glucose 174 mg/dl Hemoglobin A1c 7.7 4.5-5.6 % Lactic Acid Level 2.1 1.3 0.4-2.0 mmol/L Calcium Level 9.3 8.5-10.1 mg/dl Magnesium Level 1.9 1.8-2.4 mg/dl Total Bilirubin 0.5 0.2-1 mg/dl Aspartate Amino Transf (AST/SGOT) 16 15-37 U/L Alanine Aminotransferase (ALT/SGPT) 27 12-78 U/L Alkaline Phosphatase 84 45-117 U/L Total Creatine Kinase 99 26-192 U/L Troponin I < 0.015 0-0.045 ng/ml Total Protein 8.2 6.4-8.2 gm/dl Albumin 3.8 3.4-5.0 gm/dl Globulin 4.4 2.5-4.0 gm/dl Albumin/Globulin Ratio 0.9 0.9-2 Lipase 162 73-393 U/L Thyroid Stimulating Hormone (TSH) 2.480 0.300-4.500 uIu/ml Rapid Plasma Reagin NONREACTIVE NONREACT Lyme Disease IgG Antibody NEG NEG Lyme Disease IgM Antibody NEG NEG Monoscreen NEG NEG Urine Color YELLOW Urine Appearance CLOUDY CLEAR Urine pH 5.0 4.5-7.5 Urine Specific [place] 1.032 1.000-1.030 Urine Protein NEG NEG Urine Glucose (UA) 3+ NEG Urine Ketones NEG NEG Urine Occult Blood TRACE NEG Urine Nitrite NEG NEG Urine Bilirubin NEG NEG Urine Urobilinogen NEG NEG Urine Leukocyte Esterase MODERATE NEG Urine WBC (Auto) >30 0-5 /hpf Urine RBC (Auto) 0-4 0-4 /hpf Urine Hyaline Casts (Auto) 1-5 0-5 /lpf Urine Epithelial Cells (Auto) >30 0-5 /lpf Urine Bacteria (Auto) 1+ NEG Influenza Type A Antigen Neg for Influ A NEG Influenza Type B Antigen Neg for Influ B NEG Test 05/05/17 00:43 05/05/17 06:12 05/05/17 07:35 05/05/17 14:37 Range/Units Bedside Glucose 80 94 70-90 mg/dl White Blood Count 13.21 4.8-10.8 K/uL Red Blood Count 5.06 4.2-5.4 M/uL Hemoglobin 14.3 12.0-16.0 g/dL Hematocrit 43.8 37-47 % Mean Corpuscular Volume 86.6 80-100 fL Mean Corpuscular Hemoglobin 28.3 25-34 pg Mean Corpuscular Hemoglobin Concent 32.6 32-36 g/dl Platelet Count 288 130-400 K/uL Mean Platelet Volume 9.6 7.4-10.4 fL Neutrophils (%) (Auto) 55.3 % Lymphocytes (%) (Auto) 30.7 % Monocytes (%) (Auto) 9.4 % Eosinophils (%) (Auto) 3.6 % Basophils (%) (Auto) 0.5 % Neutrophils # (Auto) 7.31 1.4-6.5 K/uL Lymphocytes # (Auto) 4.05 1.2-3.4 K/uL Monocytes # (Auto) 1.24 0.11-0.59 K/uL Eosinophils # (Auto) 0.48 0-0.5 K/uL Basophils # (Auto) 0.07 0-0.2 K/uL RDW Standard Deviation 49.2 36.4-46.3 fL RDW Coefficient of Variation 15.6 11.5-14.5 % Immature Granulocyte % (Auto) 0.5 % Immature Granulocyte # (Auto) 0.06 0.00-0.02 K/uL Microbiology Results 05/04/17 Urine Culture, Received Pending
--- NOTE | 2017-05-05 15:57 | Neurology Consultation ---
Neurology Consultation Date of Consultation: May 05, 2017. Attending Physician: Richi Thornton M.D. Primary Care Physician: Oralia Mccoy M.D. Reason for Consultation: bilateral LE weakness History of Present Illness Source: patient Juany is a 52 year old female who has a H anxiety, OCD, DM II insulin dependent, peripheral neuropathy, previous stroke (1 year ago) who was admitted for generalized weakness. She states this started about a month ago. She had recently been placed on Invokona by her PCP for DM control. On admission the medication was held and she was also found to have a UTI which she is being treated with ceftriaxone. denies falls, CP, SOB, abdominal pain, current weakness, N, V. She states along with the weakness she had pain in her limbs like a tooth ache. She states she is 90% back to normal Past Medical/Surgical History Medical Problems: (1) Ataxia Status: Acute (2) Back pain Status: Acute (3) Constipation Status: Acute (4) Contusion of multiple sites Status: Acute (5) Fall Status: Acute (6) Generalized weakness Status: Acute (7) Hyperglycemia Status: Acute (8) UTI (urinary tract infection) Status: Acute (9) UTI (urinary tract infection) Status: Acute Social History Smoking Status: Never smoker Marital Status: single Housing Status: lives with significant other Occupation Status: unemployed Allergies Coded Allergies: NO KNOWN DRUG ALLERGIES (Verified Allergy, Unknown, ., 05/04/17) Adhesives (Verified Adverse Reaction, Mild, TAPE-RASH, 05/04/17) Current Inpatient Medications Current Inpatient Medications Medications (Trade) Dose Ordered Sig/Angie Route Start Time Stop Time Status Last Admin Dose Admin Enoxaparin Sodium (Lovenox Inj) 40 mg Q24H SQ 05/05/17 08:00 06/04/17 07:59 05/05/17 08:14 40 MG Acetaminophen (Tylenol Tab) 650 mg Q4H PRN PO 05/04/17 22:30 06/03/17 22:29 Insulin Aspart (novoLOG ASPART) SLIDING SCALE If C... ACHS SC 05/05/17 06:30 06/04/17 06:59 Glucose (Glucose 40% Gel) 15-30 GRAMS 15 GRAMS... UD PRN PO 05/04/17 22:30 06/03/17 22:29 Glucose (Glucose Chew Tab) 4-8 Tablets 4 Tabl... UD PRN PO 05/04/17 22:30 06/03/17 22:29 Dextrose (Dextrose 50% 50ML Syringe) 25-50ML OF 50% DW IV FOR... UD PRN IV 05/04/17 22:30 06/03/17 22:29 Glucagon (Glucagon Inj) 1 mg UD PRN SQ 05/04/17 22:30 06/03/17 22:29 Amlodipine Besylate (Norvasc Tab) 2.5 mg HS PO 05/05/17 21:00 06/04/17 20:59 Aspirin (Ecotrin Tab) 81 mg QAM PO 05/05/17 08:00 06/04/17 08:59 05/05/17 08:14 81 MG Atorvastatin Calcium (Lipitor Tab) 80 mg HS PO 05/05/17 21:00 06/04/17 20:59 Dicyclomine HCl (Bentyl Tab) 40 mg HS PO 05/05/17 21:00 06/04/17 20:59 Escitalopram Oxalate (Lexapro Tab) 20 mg HS PO 05/05/17 21:00 06/04/17 20:59 Lorazepam (Ativan Tab) 2 mg HS PO 05/05/17 21:00 06/04/17 20:59 Metoprolol Succinate (Toprol Xl Tab) 25 mg HS PO 05/05/17 21:00 06/04/17 20:59 Pantoprazole Sodium (Protonix Tab) 40 mg HS PO 05/05/17 21:00 06/04/17 20:59 Ketorolac Tromethamine (Toradol Inj) 30 mg Q6H PRN IV 05/04/17 22:30 05/09/17 22:29 Ibuprofen (Advil Tab) 400 mg Q6H PRN PO 05/04/17 22:30 06/03/17 22:29 Tramadol HCl (Ultram Tab) 25 mg Q6H PRN PO 05/04/17 22:30 06/03/17 22:29 05/05/17 00:33 25 MG Ondansetron HCl (Zofran Inj) 4 mg Q6H PRN IV 05/04/17 22:30 06/03/17 22:29 Miscellaneous (Iv Fluids Completed) 1 ea PRN PRN N/A 05/04/17 23:00 05/04/18 22:59 Gadobutrol (Gadavist) 9.5 mmol UD PRN IV 05/05/17 01:00 05/09/17 00:59 Levothyroxine Sodium (Synthroid Tab) 175 mcg PM PO 05/05/17 01:30 06/04/17 01:29 Insulin Glargine (Lantus Solostar Pen) 5 unit BID SC 05/05/17 08:00 06/04/17 08:59 05/05/17 08:17 5 UNIT Ceftriaxone Sodium 1 gm/ Dextrose 50 ml @ 100 mls/hr DAILY@1999 IV 05/05/17 20:00 05/08/17 20:29 Physical Exam Vital Signs (Past 24 Hrs): Date Time Temp Pulse Resp B/P (MAP) Pulse Ox O2 Delivery O2 Flow Rate FiO2 05/05/17 15:36 36.7 63 16 126/78 (94) 97 Room Air 05/05/17 09:07 72 98 05/05/17 08:00 97 Room Air 05/05/17 07:12 36.7 64 18 124/75 (91) 97 Room Air 05/05/17 01:05 36.7 75 20 116/73 Room Air 05/04/17 22:00 69 20 116/73 95 Room Air 05/04/17 19:38 74 20 119/76 95 Room Air 05/04/17 17:34 36.7 79 18 121/80 96 Room Air Physical Exam: Constitutional: appearance nourished, healthy and normal Ears, Nose, Mouth and Throat: mucous membranes moist, no injection and skin normal, eyes normal Cardiovascular: normal S-1 and S-2 and regular rate and rhythm Respiratory: clear to auscultation (CTA) and no rales, ronchi or wheeze Musculoskeletal: no peripheral edema and good distal pulses Skin: no stigmata of neurocutaneous disease noted and normal and intact Eyes: extraocular muscles intact (EOMI) and pupils equal, round and reactive to light (PERRL), right eye strabismus with slight eye lid drooping NEUROLOGIC EXAMINATION: Mental status: Alert and interactive Oriented to full date and location Oriented to person Speech fluent with no evidence of aphasia Cranial Nerves smile eye brow raise symmetric, tongue midline Reflexes: Deep tendon reflexes were symmetrical and graded 2/5. Plantar responses were flexor. Sensory: deficit with vibration, cool sensation to upper calf, GT proprioception intact on left absent on right Coordination: Romberg absent Gait/Stance: Posture normal. Gait normal: with steady with steps, base, turning, heel and toe walking and tandem gait. Motor: Negative for pronator drift of out stretched arms with eyes closed. Strength: Normal - 5/5 all extremities Laboratory Results Past 24 Hours: 05/05/17 06:12 Red Blood Count 5.06, Mean Corpuscular Volume 86.6, Mean Corpuscular Hemoglobin 28.3, Mean Corpuscular Hemoglobin Concent 32.6, Mean Platelet Volume 9.6, Neutrophils (%) (Auto) 55.3, Lymphocytes (%) (Auto) 30.7, Monocytes (%) (Auto) 9.4, Eosinophils (%) (Auto) 3.6, Basophils (%) (Auto) 0.5, Neutrophils # (Auto) 7.31, Lymphocytes # (Auto) 4.05, Monocytes # (Auto) 1.24, Eosinophils # (Auto) 0.48, Basophils # (Auto) 0.07 05/04/17 18:15 Test 05/04/17 18:15 05/04/17 18:45 05/04/17 18:50 05/05/17 00:21 Prothrombin Time 10.2 SECONDS (9.0-12.0) Prothromb Time International Ratio 1.0 (0.9-1.1) Anion Gap 9.0 mmol/L (3-11) Est Creatinine Clear Calc Drug Dose 96.6 ml/min Estimated GFR () 98.4 Estimated GFR (Non- 84.9 BUN/Creatinine Ratio 24.6 (10-20) Estimated Average Glucose 174 mg/dl Hemoglobin A1c 7.7 % (4.5-5.6) Calcium Level 9.3 mg/dl (8.5-10.1) Magnesium Level 1.9 mg/dl (1.8-2.4) Total Bilirubin 0.5 mg/dl (0.2-1) Aspartate Amino Transf (AST/SGOT) 16 U/L (15-37) Alanine Aminotransferase (ALT/SGPT) 27 U/L (12-78) Alkaline Phosphatase 84 U/L (45-117) Troponin I < 0.015 ng/ml (0-0.045) Total Protein 8.2 gm/dl (6.4-8.2) Albumin 3.8 gm/dl (3.4-5.0) Globulin 4.4 gm/dl (2.5-4.0) Albumin/Globulin Ratio 0.9 (0.9-2) Lipase 162 U/L (73-393) Thyroid Stimulating Hormone (TSH) 2.480 uIu/ml (0.300-4.500) Rapid Plasma Reagin NONREACTIVE (NONREACT) Lyme Disease IgG Antibody NEG (NEG) Lyme Disease IgM Antibody NEG (NEG) Monoscreen NEG (NEG) Urine Color YELLOW Urine Appearance CLOUDY (CLEAR) Urine pH 5.0 (4.5-7.5) Urine Specific [place] 1.032 (1.000-1.030) Urine Protein NEG (NEG) Urine Glucose (UA) 3+ (NEG) Urine Ketones NEG (NEG) Urine Occult Blood TRACE (NEG) Urine Nitrite NEG (NEG) Urine Bilirubin NEG (NEG) Urine Urobilinogen NEG (NEG) Urine Leukocyte Esterase MODERATE (NEG) Urine WBC (Auto) >30 /hpf (0-5) Urine RBC (Auto) 0-4 /hpf (0-4) Urine Hyaline Casts (Auto) 1-5 /lpf (0-5) Urine Epithelial Cells (Auto) >30 /lpf (0-5) Urine Bacteria (Auto) 1+ (NEG) Influenza Type A Antigen Neg for Influ A (NEG) Influenza Type B Antigen Neg for Influ B (NEG) Lactic Acid Level 1.3 mmol/L (0.4-2.0) Test 05/05/17 06:12 05/05/17 07:35 05/05/17 14:37 White Blood Count 13.21 K/uL (4.8-10.8) Red Blood Count 5.06 M/uL (4.2-5.4) Hemoglobin 14.3 g/dL (12.0-16.0) Hematocrit 43.8 % (37-47) Mean Corpuscular Volume 86.6 fL (80-100) Mean Corpuscular Hemoglobin 28.3 pg (25-34) Mean Corpuscular Hemoglobin Concent 32.6 g/dl (32-36) Platelet Count 288 K/uL (130-400) Mean Platelet Volume 9.6 fL (7.4-10.4) Neutrophils (%) (Auto) 55.3 % Lymphocytes (%) (Auto) 30.7 % Monocytes (%) (Auto) 9.4 % Eosinophils (%) (Auto) 3.6 % Basophils (%) (Auto) 0.5 % Neutrophils # (Auto) 7.31 K/uL (1.4-6.5) Lymphocytes # (Auto) 4.05 K/uL (1.2-3.4) Monocytes # (Auto) 1.24 K/uL (0.11-0.59) Eosinophils # (Auto) 0.48 K/uL (0-0.5) Basophils # (Auto) 0.07 K/uL (0-0.2) RDW Standard Deviation 49.2 fL (36.4-46.3) RDW Coefficient of Variation 15.6 % (11.5-14.5) Immature Granulocyte % (Auto) 0.5 % Immature Granulocyte # (Auto) 0.06 K/uL (0.00-0.02) Bedside Glucose 94 mg/dl (70-90) Imaging CT head- No acute intracranial abnormality. LE doppler- : There is no sonographic evidence of deep venous thrombosis identified in the right or left lower extremity. MRI brain- No acute intracranial abnormality. some white matter changes Impression 52 year old female with UE/LE weakness, now 90 % recovered Plan 1. no evidence of demyelinating disease or new stroke on MRI 2. would continue to hold Invokona she should readdress DM control 3. severe peripheral neuropathy if continue painful would address with PCP or can be seen as outpatient with neurology 4. CK repeated 5. PT/OT for discharge needs 6. no further work up from neurology I have seen and discussed above patient with Dr Colby Cano, neurology I have seen this patient examined her reviewed the history and imaging studies and labs and agree with the above recommendations weakness may reflect effects of uti on preexisting neuropathy but role of invokana cannot be ignored and would suggest that it be held for now uti rxed and when patient is again clincally stable perhaps rechallenge her with it again It has apparently been quite successful in controlling her previously poorly controlled dm and determining if it indeed was responsible for her synptoms would appear to be very important Neuropahy while sensory predominantly thus far seems largely confined to large fiber function and is relatively nonpainful so we can likely defer on the usual neurontinjeffery discussion for now but as above we could get reinvolved neurologically in the future if symptoms change Colby Cano MD
[2017-05-05] MEDS ORDERED: CEFTRIAXONE SOD INJ 1 GM in DEXTROSE 5% ADD-VANTAGE 50ML 50 ML IV SCH (20:00)
[2017-05-05] MEDS ORDERED: ATORVASTATIN 40 MG TAB PO SCH (21:00)
[2017-05-05] MEDS ORDERED: PANTOprazole SOD 40 MG TAB PO SCH (21:00)
[2017-05-05] MEDS ORDERED: AMLODIPINE BESYLATE 5 MG TAB PO SCH (21:00)
[2017-05-05] MEDS ORDERED: DICYCLOMINE HCL 20 MG TAB PO SCH (21:00)
[2017-05-05] MEDS ORDERED: METOPROLOL SUCC 25MG EXT REL TAB PO SCH (21:00)
[2017-05-05] MEDS ORDERED: LORAZEPAM 1 MG TAB PO SCH (21:00)
[2017-05-05] MEDS ORDERED: ESCITALOPRAM OXALATE 20 MG TAB PO SCH (21:00)
[2017-05-06] VITALS: BP 102/54; PULSE 65; TEMP 36.8; O2SAT 96
[2017-05-06 08:01] VITALS: BP 114/67; PULSE 66; TEMP 36.6; O2SAT 97
[2017-05-06] MEDS: ASPIRIN 81 MG ECTAB PO SCH (08:52)
[2017-05-06] MEDS: ENOXAPARIN 40 MG/0.4 ML SYR SQ SCH (08:54)
[2017-05-06] MEDS: INSULIN ASPART 100 UNITS/ML 3 ML PEN SC SCH ×2 (08:57→11:55)
[2017-05-06] MEDS: INSULIN GLARGINE SOLOSTAR 100 UNITS/ML 3 ML PEN SC SCH (08:58)
[2017-05-06] MEDS ORDERED: CEPHALEXIN MONOHYDRATE 500 MG CAP PO ONE (12:25)
--- NOTE | 2017-05-06 12:30 | Progress Note ---
Internal Med Progress Note Date of Service: May 06, 2017. Provider Documentation: SUBJECTIVE: The patient was seen and examined Admitted with weak limbs ,Leg more than the arms Completely resolved now Remains stable Denies any complaints Ambulating well OBJECTIVE: Vital Signs-as noted below Exam: General-no distress at rest Eyes-normal ENT-normal Neck-Supple Lungs-clear to auscultate bilaterally Heart-Regular,no murmur Abdomen-Benign,no masses,bowel sound present Extremities-No edema Neuro-AAOx3 NO focal sensory and or motor deficit Lab data as noted below. ASSESSMENT & PLAN: Bilateral LE > UE weakness of one month duration Possible myopathy ,may have reaction to Invokana vs [employer] pathology Symptoms resolved following admission to the hospital Denies any more symptoms Neurology consulted CT and MRI of the Head-unremarkable PT/OT eval-recommended discharge home Ambulating well Will discharge home today -HOLD INVOKANA NOW Possible UTI Asymptomatic pyuria, no sepsis Check U C/S -Pin point growth Started on Ceftriaxone Will continue Keflex for 3 more days LE pain 2 to myopathy ro recurrent DVT (hx DVT during as per px (did not need anticoag as per px) CVA as per records No evidence of DVT HTN, stable DM2, insulin requiring, suboptimal control as of recent HgA1c SSI and Blood sugar ACHS Thyroid CA sp surgery DVT prophylaxis, Lovenox SQ Full code Vital Signs: Date Time Temp Pulse Resp B/P (MAP) Pulse Ox O2 Delivery O2 Flow Rate FiO2 05/06/17 08:01 36.6 66 16 114/67 (83) 97 Room Air 05/06/17 07:45 Room Air 05/06/17 00:00 Room Air 05/06/17 00:00 36.8 65 18 102/54 (70) 96 Room Air 05/05/17 21:08 74 133/96 (108) 05/05/17 16:00 97 Room Air 05/05/17 15:36 36.7 63 16 126/78 (94) 97 Room Air Lab Results: Results Past 24 Hours Test 05/05/17 14:37 05/05/17 16:38 05/05/17 20:31 05/06/17 07:34 Range/Units Total Creatine Kinase 80 26-192 U/L Bedside Glucose 163 187 183 70-90 mg/dl Test 05/06/17 11:16 Range/Units Bedside Glucose 224 70-90 mg/dl
[2017-05-06] MEDS ORDERED: LCTX PO (12:33)
[2017-05-06] MEDS ORDERED: KFL500 PO (12:33)
--- NOTE | 2017-05-06 12:37 | Discharge Instructions ---
Discharge Instructions Date of Service May 06, 2017. Admission Reason for Admission: Generalized Weakness Discharge Discharge Diagnosis / Problem: Weak Limbs,LE>UE-resolved .Possible UTI Discharge Goals Goal(s): Prevent Disease Progression Activity Recommendations Activity Limitations: resume your previous activity . Instructions / Follow-Up Instructions / Follow-Up Dr Mccoy on 05/13/17 at 10:45 Am.Do not take Invokona until cleared by your PCP Current Hospital Diet Patient's current hospital diet: Diabetes Type 2 Diet, AHA Diet (Heart Healthy) Discharge Diet Recommended Diet: Diabetes Type 2 Diet Pending Studies Studies pending at discharge: no Laboratory Results Hemoglobin A1c Test 05/04/17 18:15 Range/Units Estimated Average Glucose 174 mg/dl Hemoglobin A1c 7.7 H 4.5-5.6 % Medical Emergencies . Who to Call and When: Medical Emergencies: If at any time you feel your situation is an emergency, please call 911 immediately. . Non-Emergent Contact Non-Emergency issues call your: Primary Care Provider . Past History Medical & Surgical History: (1) Ataxia (2) UTI (urinary tract infection) (3) Obsessive compulsive disorder (4) Postsurgical hypothyroidism (5) Diabetes mellitus, type II (6) Status post cholecystectomy (7) Status post thyroidectomy (8) Status post excision enchondroma left femur . "Provider Documentation" section prepared by Richi Thornton. . VTE Core Measure Inpt VTE Proph given/why not?: Enoxaparin (Lovenox)SQ
[2017-05-06 14:51] VITALS: BP 114/67; PULSE 66; TEMP 36.6; O2SAT 97
[2017-05-06] MEDS ORDERED: CEPHALEXIN MONOHYDRATE 500 MG CAP PO SCH (20:00)
--- NOTE | 2017-05-07 07:57 | Discharge Summary ---
Discharge Summary Date of Service May 07, 2017. Discharge Summary Admission Date: May 04, 2017 at 22:19 Discharge Date: May 06, 2017 Discharge Disposition: Home Principal Diagnosis: Weak Limbs,LE>UE-resolved .Possible UTI Secondary Diagnoses/Problems: Please see H&P and Hospital Progress note Consultations: Neurology Medication Reconciliation New Medications: Lactobacillus Acidophilus (Lactinex) Tab 2 TAB PO TID, #30 TAB Cephalexin Monohydrate (Cephalexin) 500 Mg Cap 500 MG PO TID for 3 Days, #10 CAP Continued Medications: Amlodipine Besylate (Norvasc) 2.5 Mg Tab 2.5 MG PO HS Aspirin (Aspirin Ec) 81 Mg Tab 81 MG PO QAM Atorvastatin (Lipitor) 80 Mg Tab 80 MG PO HS Canagliflozin (Invokana) 100 Mg Tab 1 TAB PO QAM Dicyclomine Hcl (Dicyclomine Hcl) 20 Mg Tab 2 TABS PO HS Escitalopram Oxalate (Escitalopram Oxalate) 20 Mg Tab 20 MG PO HS Insulin Human Isophan/Regular (Humulin 70/30) Inj 50 UNITS SC BID Levothyroxine Sodium (Levothyroxine Sodium) 175 Mcg Tab 175 MG PO HS Lorazepam (Ativan) 1 Mg Tab 2 TABS PO HS Metformin Hcl (Glucophage) 1,000 Mg Tab 1000 MG PO BID, TAB Metoprolol Succinate (Metoprolol Succinate ER) 25 Mg Tabcr 25 MG PO HS Omeprazole (Prilosec) 20 Mg Cap 20 MG PO HS Admission Information HPI (per Admitting provider): Last month patient started on Invokana by PCP for diabetes. Improved blood sugars. Patient recalls not feeling well after starting medication. Flulike symptoms. Patient later noted achy weakness both legs and arms, more of the legs. Some trouble walking. No headache no chest pain no shortness of breath. Denies abdominal discomfort or bladder symptoms. No unusual back pain. Patient sent to the ER by PCP for worsening symptoms. At the emergency room, patient received ceftriaxone for possible UTI. Past Medical/Surgical History Medical Problems: (1) Anxiety Status: Chronic (2) Diabetes mellitus, type II Status: Chronic (3) History enchondroma of left femur Status: Chronic (4) History of thyroid cancer Status: Chronic (5) History of toxic multinodular goiter Status: Chronic (6) Obsessive compulsive disorder Status: Chronic (7) Postsurgical hypothyroidism Status: Chronic Surgical Problems: (1) Status post cholecystectomy Status: Chronic (2) Status post excision enchondroma left femur Status: Chronic (3) Status post thyroidectomy Status: Chronic Family History Diabetes mellitus BROTHER BROTHER Myocardial infarction FATHER Ovarian cancer MOTHER Social History Smoking Status: Former Smoker Alcohol Use: none Marital Status: single Housing status: lives with significant other Occupational Status: unemployed, disabled Immunizations History of Influenza Vaccine: No History of Tetanus Vaccine?: No Tetanus Immunization Date: Feb 06, 2009 History of Pneumococcal: No History of Hepatitis B Vaccine: Unknown Multi-Drug Resistant Organisms History of MDRO: No Allergies Coded Allergies: NO KNOWN DRUG ALLERGIES (Verified Allergy, Unknown, ., 05/04/17) Adhesives (Verified Adverse Reaction, Mild, TAPE-RASH, 05/04/17) Home Medications Scheduled Amlodipine Besylate (Norvasc), 2.5 MG PO HS Aspirin (Aspirin Ec), 81 MG PO QAM Atorvastatin (Lipitor), 80 MG PO HS Canagliflozin (Invokana), 1 TAB PO QAM Dicyclomine Hcl (Dicyclomine Hcl), 2 TABS PO HS Escitalopram Oxalate (Escitalopram Oxalate), 20 MG PO HS Insulin Human Isophan/Regular (Humulin 70/30), 50 UNITS SC BID Levothyroxine Sodium (Levothyroxine Sodium), 175 MG PO HS Lorazepam (Ativan), 2 TABS PO HS Metformin Hcl (Glucophage), 1,000 MG PO BID Metoprolol Succinate (Metoprolol Succinate ER), 25 MG PO HS Omeprazole (Prilosec), 20 MG PO HS Physical Ex - H&P Physical Exam Vital Signs Date Time Temp Pulse Resp B/P (MAP) Pulse Ox O2 Delivery O2 Flow Rate FiO2 05/05/17 01:05 36.7 75 20 116/73 Room Air 05/04/17 22:00 69 20 116/73 95 Room Air 05/04/17 19:38 74 20 119/76 95 Room Air 05/04/17 17:34 36.7 79 18 121/80 96 Room Air General Appearance: no apparent distress, + obese Head: normocephalic Eyes: normal inspection ENT: pharynx normal Neck: supple (short), + pertinent finding Respiratory/Chest: + decreased breath sounds Cardiovascular: regular rate, rhythm Abdomen/GI: soft Extremities/Musculoskelatal: non-tender Neurologic/Psych: + motor weakness, + pertinent finding (upper extremity MMT 4 over 5 lower extremity MMT 3 over 5) Diagnostics - H&P Diagnostics Laboratory Results Results Past 24 Hours Test 05/04/17 18:15 05/04/17 18:45 05/04/17 18:50 05/05/17 00:21 Range/Units White Blood Count 13.23 4.8-10.8 K/uL Red Blood Count 5.43 4.2-5.4 M/uL Hemoglobin 15.7 12.0-16.0 g/dL Hematocrit 47.0 37-47 % Mean Corpuscular Volume 86.6 80-100 fL Mean Corpuscular Hemoglobin 28.9 25-34 pg Mean Corpuscular Hemoglobin Concent 33.4 32-36 g/dl Platelet Count 320 130-400 K/uL Mean Platelet Volume 9.6 7.4-10.4 fL Neutrophils (%) (Auto) 60.5 % Lymphocytes (%) (Auto) 26.1 % Monocytes (%) (Auto) 7.8 % Eosinophils (%) (Auto) 4.1 % Basophils (%) (Auto) 0.7 % Neutrophils # (Auto) 8.02 1.4-6.5 K/uL Lymphocytes # (Auto) 3.45 1.2-3.4 K/uL Monocytes # (Auto) 1.03 0.11-0.59 K/uL Eosinophils # (Auto) 0.54 0-0.5 K/uL Basophils # (Auto) 0.09 0-0.2 K/uL RDW Standard Deviation 49.0 36.4-46.3 fL RDW Coefficient of Variation 15.5 11.5-14.5 % Immature Granulocyte % (Auto) 0.8 % Immature Granulocyte # (Auto) 0.10 0.00-0.02 K/uL Prothrombin Time 10.2 9.0-12.0 SECONDS Prothromb Time International Ratio 1.0 0.9-1.1 Sodium Level 137 136-145 mmol/L Potassium Level 4.0 3.5-5.1 mmol/L Chloride Level 102 98-107 mmol/L Carbon Dioxide Level 26 21-32 mmol/L Anion Gap 9.0 3-11 mmol/L Blood Urea Nitrogen 19 7-18 mg/dl Creatinine 0.79 0.60-1.20 mg/dl Est Creatinine Clear Calc Drug Dose 96.6 ml/min Estimated GFR () 98.4 Estimated GFR (Non- 84.9 BUN/Creatinine Ratio 24.6 10-20 Random Glucose 135 70-99 mg/dl Lactic Acid Level 2.1 1.3 0.4-2.0 mmol/L Calcium Level 9.3 8.5-10.1 mg/dl Magnesium Level 1.9 1.8-2.4 mg/dl Total Bilirubin 0.5 0.2-1 mg/dl Aspartate Amino Transf (AST/SGOT) 16 15-37 U/L Alanine Aminotransferase (ALT/SGPT) 27 12-78 U/L Alkaline Phosphatase 84 45-117 U/L Total Creatine Kinase 99 26-192 U/L Troponin I < 0.015 0-0.045 ng/ml Total Protein 8.2 6.4-8.2 gm/dl Albumin 3.8 3.4-5.0 gm/dl Globulin 4.4 2.5-4.0 gm/dl Albumin/Globulin Ratio 0.9 0.9-2 Lipase 162 73-393 U/L Thyroid Stimulating Hormone (TSH) 2.480 0.300-4.500 uIu/ml Lyme Disease IgG Antibody NEG NEG Lyme Disease IgM Antibody NEG NEG Monoscreen NEG NEG Urine Color YELLOW Urine Appearance CLOUDY CLEAR Urine pH 5.0 4.5-7.5 Urine Specific [place] 1.032 1.000-1.030 Urine Protein NEG NEG Urine Glucose (UA) 3+ NEG Urine Ketones NEG NEG Urine Occult Blood TRACE NEG Urine Nitrite NEG NEG Urine Bilirubin NEG NEG Urine Urobilinogen NEG NEG Urine Leukocyte Esterase MODERATE NEG Urine WBC (Auto) >30 0-5 /hpf Urine RBC (Auto) 0-4 0-4 /hpf Urine Hyaline Casts (Auto) 1-5 0-5 /lpf Urine Epithelial Cells (Auto) >30 0-5 /lpf Urine Bacteria (Auto) 1+ NEG Influenza Type A Antigen Neg for Influ A NEG Influenza Type B Antigen Neg for Influ B NEG Test 05/05/17 00:43 Range/Units Bedside Glucose 80 70-90 mg/dl Microbiology Results 05/04/17 Urine Culture, Received Pending Diagnostic Radiology CT head no acute pathology Impression - H&P Impression Assessment and Plan AP Bilateral LE > UE weakness of one month duration myopathy (? Invokana ADR) vs AUTOMATIC LATHE TENDER pathology LE pain 2 to myopathy ro recurrent DVT (hx DVT during as per px (did not need anticoag as per px) hx CVA as per records HTN, stable DM2, insulin requiring, suboptimal control as of recent HgA1c asymptomatic pyuria, no sepsis thyroid CA sp surgery OBS GMF MRI brain Neuro opinion RE ellen leg/arm weakness PT/OT eval LE dopplers ro dvt basal insulin, ISS BG goal 140-180, px due for HgA1C recheck hold Invokana (may need inclusion in ADR list) hold off on antibiotics for asymptomatic pyuria DVT prophylaxis, Lovenox SQ Full code Advanced Directives Existing Living Will: No Existing Power of Supervisor Cold Rolling: No VTE Prophylaxis VTE Risk Assessment Done? Y/N: Yes Risk Level: High Physical Exam (per Admitting): General Appearance: no apparent distress, + obese Head: normocephalic Eyes: normal inspection ENT: pharynx normal Neck: supple (short), + pertinent finding Respiratory/Chest: + decreased breath sounds Cardiovascular: regular rate, rhythm Abdomen/GI: soft Extremities/Musculoskelatal: non-tender Neurologic/Psych: + motor weakness, + pertinent finding (upper extremity MMT 4 over 5 lower extremity MMT 3 over 5) Hospital Course Bilateral LE > UE weakness of one month duration Possible myopathy ,may have reaction to Invokana vs AUT[employer] LATHE T[employer]ER pathology Symptoms resolved following admission to the hospital Denies any more symptoms Neurology consulted CT and MRI of the Head-unremarkable PT/OT eval-recommended discharge home Ambulating well Will discharge home today -HOLD INVOKANA NOW Possible UTI Asymptomatic pyuria, no sepsis Check U C/S -Pin point growth Started on Ceftriaxone Will continue Keflex for 3 more days LE pain 2 to myopathy ro recurrent DVT (hx DVT during as per px (did not need anticoag as per px) CVA as per records No evidence of DVT HTN, stable DM2, insulin requiring, suboptimal control as of recent HgA1c SSI and Blood sugar ACHS Thyroid CA sp surgery DVT prophylaxis, Lovenox SQ Full code Total time spent on discharge = 35 minutes This includes examination of the patient, discharge planning, medication reconciliation, and communication with other providers. Discharge Instructions Date of Service May 06, 2017. Admission Reason for Admission: Generalized Weakness Discharge Discharge Diagnosis / Problem: Weak Limbs,LE>UE-resolved .Possible UTI Discharge Goals Goal(s): Prevent Disease Progression Activity Recommendations Activity Limitations: resume your previous activity . Instructions / Follow-Up Instructions / Follow-Up Dr Mccoy on 05/13/17 at 10:45 Am.Do not take Invokona until cleared by your PCP Current Hospital Diet Patient's current hospital diet: Diabetes Type 2 Diet, AHA Diet (Heart Healthy) Discharge Diet Recommended Diet: Diabetes Type 2 Diet Pending Studies Studies pending at discharge: no Laboratory Results Hemoglobin A1c Test 05/04/17 18:15 Range/Units Estimated Average Glucose 174 mg/dl Hemoglobin A1c 7.7 H 4.5-5.6 % Medical Emergencies . Who to Call and When: Medical Emergencies: If at any time you feel your situation is an emergency, please call 911 immediately. . Non-Emergent Contact Non-Emergency issues call your: Primary Care Provider . Past History Medical & Surgical History: (1) Ataxia (2) UTI (urinary tract infection) (3) Obsessive compulsive disorder (4) Postsurgical hypothyroidism (5) Diabetes mellitus, type II (6) Status post cholecystectomy (7) Status post thyroidectomy (8) Status post excision enchondroma left femur . "Provider Documentation" section prepared by Richi Thornton. . VTE Core Measure Inpt VTE Proph given/why not?: Enoxaparin (Lovenox)SQ <Electronically signed by Richi Thornton M.D.> Signed: 05/06/17 9903 Additional Copies To Oralia Mccoy M.D.
== END 2017-05-06 15:20 | disposition home or self-care (01) ==
LOC: C.EDB 17:30 → C.MS4W 22:19 → ENRESERV 22:30
PROVIDERS: ADMIT Internal Medicine; ATTEND Internal Medicine
DX: R53.1 Weakness (principal); Z79.82 Long term (current) use of aspirin; Z79.4 Long term (current) use of insulin; E11.9 Type 2 diabetes mellitus without complications; Z85.850 Personal history of malignant neoplasm of thyroid; Z90.49 Acquired absence of other specified parts of digestive tract; Z83.3 Family history of diabetes mellitus; Z82.49 Family history of ischemic heart disease and other diseases of the circulatory system; Z80.41 Family history of malignant neoplasm of ovary; Z87.891 Personal history of nicotine dependence; Z79.899 Other long term (current) drug therapy; M79.604 Pain in right leg; M79.605 Pain in left leg

== ENCOUNTER 2018-02-21 15:42 | Inpatient (IN) | payer OTHER ==
[~2018-02-21] VITALS: Ht 175.3 cm; Wt 95.1 kg
[~2018-02-21 15:42] MED LIST changes: -ATV/1 PO; +KFL500 PO
[2018-02-21] MEDS ORDERED: ONDANSETRON INJ 2 MG/ML 2 ML VIAL IV STA (15:58)
[2018-02-21] MEDS ORDERED: SODIUM CHLORIDE 0.9% 1000ML 1,000 ML IV STA (15:58)
[2018-02-21] MEDS: FENTANYL CITRATE INJ 50 MCG/1 ML 2 ML VIAL IV PRN ×2 (16:30→17:45)
[2018-02-21 16:48] LABS: BASO % 0.7 %; BASO ABS # 0.07 K/uL (0-0.2); EOS % 4.3 %; EOS ABS # 0.45 K/uL (0-0.5); HEMATOCRIT 44.9 % (37-47); HEMOGLOBIN 14.7 g/dL (12.0-16.0); IG# 0.05 K/uL (0.00-0.02); LYMPH % 32.2 %; LYMPH ABS # 3.33 K/uL (1.2-3.4); MEAN CELL VOLUME 88.4 fL (80-100); MEAN CORPUSCULAR HEMOGLOBIN 28.9 pg (25-34); MEAN CORPUSCULAR HGB CONC 32.7 g/dl (32-36); MEAN PLATELET VOLUME 9.7 fL (7.4-10.4); MONO % 9.6 %; MONO ABS # 0.99 K/uL (0.11-0.59); NEUT % 52.7 %; NEUT ABS # 5.46 K/uL (1.4-6.5); PLATELET COUNT 299 K/uL (130-400); RED CELL DISTRIBUTION WIDTH CV 14.3 % (11.5-14.5); RED CELL DISTRIBUTION WIDTH SD 46.5 fL (36.4-46.3); WHITE BLOOD COUNT 10.35 K/uL (4.8-10.8)
--- NOTE | 2018-02-21 16:49 | DIAGNOSTIC IMAGING REPORT ---
CHEST ONE VIEW PORTABLE CLINICAL HISTORY: 53 years-old Female presenting with CHEST PAIN. TECHNIQUE: Portable upright AP view of the chest was obtained. COMPARISON: 05/04/2017. FINDINGS: Cardiomediastinal silhouette normal. Mildly low lung volumes with hypoventilatory changes. Subpleural left paramediastinal apical opacity increased in size from prior exam. No other focal opacity. No large effusion or pneumothorax. Degenerative changes of the thoracic spine. Surgical clips noted in the left axilla. Upper abdomen normal. IMPRESSION: 1. Subpleural left paramediastinal apical opacity increased in size from prior exam. This may represent mass effect on the left apex from an adjacent structure. Further evaluation with chest CT to be considered. 2. Mildly low lung volumes with hypoventilatory changes. No convincing evidence of acute cardiopulmonary disease. The report will be called/faxed according to standard departmental protocol. Electronically signed by: Migel Noonan M.D. 02/21/2018 4:47 PM Dictated Date/Time: 02/21/2018 4:46 PM
[2018-02-21 16:58] LABS: PTT PATIENT 26.9 SECONDS (21.0-31.0)
--- NOTE | 2018-02-21 17:01 | DIAGNOSTIC IMAGING REPORT ---
ABD/PELVIS NO IV OR ORAL CONT CLINICAL HISTORY: 53 years-old Female presenting with flank pain, low back pain, history of UTI. TECHNIQUE: Multidetector CT of the abdomen and pelvis was performed without the use of intravenous contrast. IV contrast: None. A dose lowering technique was used consistent with the principles of ALARA (as low as reasonably achievable). COMPARISON: 10/20/2016. CT DOSE (mGy.cm): The estimated cumulative dose is 989.66 mGy.cm. 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 Lung bases: Minimal basilar opacities, likely atelectasis. Normal heart size. No pericardial or pleural effusion. Liver: Normal morphology. Normal density. Biliary: No gross biliary ductal dilatation allowing for noncontrast technique. Gallbladder surgically absent. Pancreas: Mild parenchymal atrophy. Spleen: Normal noncontrast appearance. Adrenal glands: Normal noncontrast appearance. Kidneys and ureters: Normal noncontrast appearance. No nephrolithiasis. No hydronephrosis. Normal ureters. Bladder: Circumferential bladder wall thickening. Pelvic organs: Normal noncontrast appearance. Indeterminate 1.9 cm suspected cyst in the left ovary. Bowel: Normal appendix. No bowel obstruction. Peritoneal cavity: No free fluid or intraperitoneal gas. Lymph nodes: No gross lymphadenopathy allowing for noncontrast technique. Vasculature: Atherosclerosis of the normal caliber abdominal aorta. Abdominal wall: Normal. Musculoskeletal: Degenerative changes of the spine. IMPRESSION: 1. Bladder wall thickening could indicate cystitis. Correlate with urinalysis. No hydronephrosis or nephrolithiasis. 2. 1.9 cm suspected cyst in the left ovary. This is probably benign. No further follow-up is necessary in this perimenopausal female per the [employer] incidental findings committee recommendations. Electronically signed by: Migel Noonan M.D. 02/21/2018 4:59 PM Dictated Date/Time: 02/21/2018 4:52 PM
[2018-02-21 17:09] LABS: ALBUMIN 3.5 gm/dl (3.4-5.0); ALT/SGPT 26 U/L (12-78); AST/SGOT 17 U/L (15-37); BLOOD UREA NITROGEN 13 mg/dl (7-18); CALCIUM 8.1 mg/dl (8.5-10.1); CARBON DIOXIDE 29 mmol/L (21-32); CREATININE 0.74 mg/dl (0.60-1.20); GLUCOSE 95 mg/dl (70-99); LIPASE 148 U/L (73-393); POTASSIUM 3.5 mmol/L (3.5-5.1); SODIUM 137 mmol/L (136-145)
[2018-02-21 17:14] LABS: ALKALINE PHOSPHATASE 85 U/L (45-117); CKMB 2.8 ng/ml (0.5-3.6); TOTAL PROTEIN 7.8 gm/dl (6.4-8.2)
[2018-02-21] MEDS ORDERED: OPTIRAY 320 IV PRN (17:15)
[2018-02-21] MEDS ORDERED: CEFTRIAXONE SOD INJ 1 GM ADDVIAL IV STA (18:15)
--- NOTE | 2018-02-21 18:21 | DIAGNOSTIC IMAGING REPORT ---
CT (CHEST) THORAX WITH CLINICAL HISTORY: 53 years-old Female presenting with CP, abnormal CXR. TECHNIQUE: Multidetector CT imaging of the chest was performed after the administration of intravenous contrast. IV contrast: 114 mL of Optiray 320. A dose lowering technique was used consistent with the principles of ALARA (as low as reasonably achievable). COMPARISON: 04/01/2010 and chest x-ray performed the same day. CT DOSE (mGy.cm): The estimated cumulative dose is 814.01 mGy.cm. FINDINGS: Paper Cleaner topogram: Unremarkable. On soft tissue windows, thyroid not visualized. Ovoid soft tissue density mass at the superior mediastinum on the left, which corresponds to the radiographic finding. This measures 3.9 x 2.1 cm (series 5 image 41). No other axillary, supraclavicular, hilar, or mediastinal lymphadenopathy. Atherosclerosis of the aorta. Mild multichamber enlargement of the heart. No pericardial or pleural effusion. Cholelithiasis. On lung windows, minimal dependent changes likely atelectasis. No other focal nodule or infiltrate. Airways patent. On bone windows, degenerative changes of the spine. IMPRESSION: 1. 3.9 x 2.1 cm mass at the left superior mediastinum. Differential considerations include a nerve sheath tumor or, less likely, pathologically enlarged lymph node. 2. No acute intrathoracic pathology. The report will be called/faxed according to standard departmental protocol. Electronically signed by: Migel Noonan M.D. 02/21/2018 6:19 PM Dictated Date/Time: 02/21/2018 6:14 PM
--- NOTE | 2018-02-21 19:07 | History and Physical ---
History & Physical Date & Time of Service: Feb 21, 2018 at 19:07 Chief Complaint: Heavy Chest Pain/Kidney/Bladder Primary Care Physician: Oralia Mccoy M.D. History of Present Illness Source: patient Patient is a 53-year-old female with past medical history of CAD, CVA, DM II, depression, history of thyroid cancer S/P resection, postsurgical hypothyroidism , NBA, HTN and other problems presents with history of Persistent B/L flank pain and chest heaviness which started this morning. Patient describes the chest pain as heaviness, intermittent, nonradiating, 3/10 intensity which improves with pain medications. Denies any aggravating factors or associated nausea, dizziness, diaphoresis, cough, orthopnea, pedal edema, shortness of breath, fever and chills. She states flank pain is B/L which radiates across her abdomen which is associated with inability to urinate and suprapubic pressure. Also reports associated dysuria but denies any history of hematuria, constipation, fever or chills, nausea, vomiting, diarrhea. Patient required straight cath while in ED to help urinate. She had multiple UTIs in the past, last was in November. She was on Amox, Cipro previously. Denies any H/O urological procedures. Past Medical/Surgical History Medical Problems: (1) Anxiety (2) Ataxia (3) Back pain (4) Constipation (5) Contusion of multiple sites (6) Diabetes mellitus, type II (7) Fall (8) Generalized weakness (9) History enchondroma of left femur (10) History of thyroid cancer (11) History of toxic multinodular goiter (12) Hyperglycemia (13) Obsessive compulsive disorder (14) Postsurgical hypothyroidism (15) UTI (urinary tract infection) (16) UTI (urinary tract infection) Surgical Problems: (1) Status post cholecystectomy (2) Status post excision enchondroma left femur (3) Status post thyroidectomy Family History Diabetes mellitus BROTHER BROTHER Myocardial infarction FATHER Ovarian cancer MOTHER Social History Smoking Status: Never Smoker Alcohol Use: none Drug Use: none Marital Status: single Housing status: lives with significant other Occupational Status: unemployed, disabled Immunizations History of Influenza Vaccine: No History of Tetanus Vaccine?: No Tetanus Immunization Date: Feb 06, 2009 History of Pneumococcal: No History of Hepatitis B Vaccine: Unknown Allergies Coded Allergies: NO KNOWN DRUG ALLERGIES (Verified Allergy, Unknown, ., 05/04/17) Adhesives (Verified Adverse Reaction, Mild, TAPE-RASH, 02/21/18) Home Medications Scheduled Amlodipine Besylate (Norvasc), 2.5 MG PO HS Aspirin (Aspirin Ec), 81 MG PO QAM Atorvastatin (Lipitor), 80 MG PO HS Canagliflozin (Invokana), 100 MG PO QAM Escitalopram Oxalate (Escitalopram Oxalate), 20 MG PO HS Insulin Human Isophan/Regular (Humulin 70/30), 50 UNITS SC BID Levothyroxine Sodium (Levothyroxine Sodium), 175 MCG PO HS Lorazepam (Ativan), 2 MG PO HS Metformin Hcl (Glucophage), 1,000 MG PO BID Metoprolol Succinate (Metoprolol Succinate ER), 25 MG PO HS Omeprazole (Prilosec), 20 MG PO HS Review of Systems See HPI for pertinent positives & negatives. A total of 10 systems reviewed and were otherwise negative. Physical Exam Vital Signs Date Time Temp Pulse Resp B/P (MAP) Pulse Ox O2 Delivery O2 Flow Rate FiO2 02/21/18 17:46 69 16 127/74 98 Room Air 02/21/18 17:01 98 Room Air 02/21/18 17:01 98 Room Air 02/21/18 16:31 70 02/21/18 15:56 36.7 71 20 143/84 98 Room Air 02/21/18 15:54 98 Room Air General Appearance: WD/WN, no apparent distress Head: normocephalic, atraumatic Eyes: normal inspection, PERRL, EOMI, sclerae normal ENT: normal ENT inspection, hearing grossly normal Neck: supple, trachea midline Respiratory/Chest: chest non-tender, lungs clear, normal breath sounds, no respiratory distress, no accessory muscle use Cardiovascular: regular rate, rhythm, no edema, no murmur Abdomen/GI: normal bowel sounds, soft, + tenderness (B/L flank region) Back: normal inspection Extremities/Musculoskelatal: normal inspection, no pedal edema Neurologic/Psych: tag and label cutter II-XII nml as tested, no motor/sensory deficits, alert, normal mood/affect, oriented x 3 Skin: normal color, warm/dry Diagnostics Laboratory Results Results Past 24 Hours Test 02/21/18 00:00 02/21/18 16:20 Range/Units Urine Color YELLOW Urine Appearance CLOUDY CLEAR Urine pH 5.0 4.5-7.5 Urine Specific [place] 1.019 1.000-1.030 Urine Protein NEG NEG Urine Glucose (UA) 3+ NEG Urine Ketones NEG NEG Urine Occult Blood TRACE NEG Urine Nitrite POS NEG Urine Bilirubin NEG NEG Urine Urobilinogen NEG NEG Urine Leukocyte Esterase MODERATE NEG Urine WBC (Auto) >30 0-5 /hpf Urine RBC (Auto) 0-4 0-4 /hpf Urine Hyaline Casts (Auto) 0 0-5 /lpf Urine Epithelial Cells (Auto) >30 0-5 /lpf Urine Bacteria (Auto) 4+ NEG Urine Pathogenic Casts 0 /lpf White Blood Count 10.35 4.8-10.8 K/uL Red Blood Count 5.08 4.2-5.4 M/uL Hemoglobin 14.7 12.0-16.0 g/dL Hematocrit 44.9 37-47 % Mean Corpuscular Volume 88.4 80-100 fL Mean Corpuscular Hemoglobin 28.9 25-34 pg Mean Corpuscular Hemoglobin Concent 32.7 32-36 g/dl Platelet Count 299 130-400 K/uL Mean Platelet Volume 9.7 7.4-10.4 fL Neutrophils (%) (Auto) 52.7 % Lymphocytes (%) (Auto) 32.2 % Monocytes (%) (Auto) 9.6 % Eosinophils (%) (Auto) 4.3 % Basophils (%) (Auto) 0.7 % Neutrophils # (Auto) 5.46 1.4-6.5 K/uL Lymphocytes # (Auto) 3.33 1.2-3.4 K/uL Monocytes # (Auto) 0.99 0.11-0.59 K/uL Eosinophils # (Auto) 0.45 0-0.5 K/uL Basophils # (Auto) 0.07 0-0.2 K/uL RDW Standard Deviation 46.5 36.4-46.3 fL RDW Coefficient of Variation 14.3 11.5-14.5 % Immature Granulocyte % (Auto) 0.5 % Immature Granulocyte # (Auto) 0.05 0.00-0.02 K/uL Prothrombin Time 10.1 9.0-12.0 SECONDS Prothromb Time International Ratio 1.0 0.9-1.1 Activated Partial Thromboplast Time 26.9 21.0-31.0 SECONDS Partial Thromboplastin Ratio 1.0 Sodium Level 137 136-145 mmol/L Potassium Level 3.5 3.5-5.1 mmol/L Chloride Level 103 98-107 mmol/L Carbon Dioxide Level 29 21-32 mmol/L Anion Gap 5.0 3-11 mmol/L Blood Urea Nitrogen 13 7-18 mg/dl Creatinine 0.74 0.60-1.20 mg/dl Est Creatinine Clear Calc Drug Dose 105.8 ml/min Estimated GFR () 105.7 Estimated GFR (Non- 91.2 BUN/Creatinine Ratio 17.9 10-20 Random Glucose 95 70-99 mg/dl Calcium Level 8.1 8.5-10.1 mg/dl Total Bilirubin 0.7 0.2-1 mg/dl Direct Bilirubin 0.1 0-0.2 mg/dl Aspartate Amino Transf (AST/SGOT) 17 15-37 U/L Alanine Aminotransferase (ALT/SGPT) 26 12-78 U/L Alkaline Phosphatase 85 45-117 U/L Total Creatine Kinase 186 26-192 U/L Creatine Kinase MB 2.8 0.5-3.6 ng/ml Creatine Kinase MB Ratio 1.5 0-3.0 Troponin I < 0.015 0-0.045 ng/ml Total Protein 7.8 6.4-8.2 gm/dl Albumin 3.5 3.4-5.0 gm/dl Lipase 148 73-393 U/L Human Chorionic Gonadotropin, Qual NEG NEG Diagnostic Radiology CT ABD: 1. Bladder wall thickening could indicate cystitis. Correlate with urinalysis. No hydronephrosis or nephrolithiasis. 2. 1.9 cm suspected cyst in the left ovary. This is probably benign. No further follow-up is necessary in this perimenopausal female per the [employer] incidental findings committee recommendations. CT Chest: 1. 3.9 x 2.1 cm mass at the left superior mediastinum. Differential considerations include a nerve sheath tumor or, less likely, pathologically enlarged lymph node. 2. No acute intrathoracic pathology. The report will be called/faxed according to standard departmental protocol. CXR: 1. Subpleural left paramediastinal apical opacity increased in size from prior exam. This may represent mass effect on the left apex from an adjacent structure. Further evaluation with chest CT to be considered. 2. Mildly low lung volumes with hypoventilatory changes. No convincing evidence of acute cardiopulmonary disease. The report will be called/faxed according to standard departmental protocol. Renal USD: Unremarkable sonographic exam of the kidneys and urinary bladder. No renal calculi or hydronephrosis. EKG EKG: NSR, RBBB, Non specific T wave changes Impression Assessment and Plan UTI: Presented with dysuria, Inability to Urinate, B/L flank pain, Bladder pressure, abnormal UA No signs of sepsis Start IV Rocephin IV fluids Check Urine culture Urinary Retention: Imaging studies no signs of obstruction Bladder Scan PRN, Straight Cath PRN Will consider Urology if no resolution Chest Pain: R/O ACS Risk factors: H/O CAD, DM II, Obesity Initial troponin:Negative EKG shows: No signs of acute Ischemia CXR:No convincing evidence of acute cardiopulmonary disease. Trend serial cardiac enzymes, repeat EKG, fasting lipid panel in AM Continue Aspirin, statins Oxygen PRN NPO after midnight Cardiology consulted Left Ovarian Cyst: Family H/O Ovarian Cancer Needs follow up with OBGYN as outpatient Left superior mediastinum Mass: Denies any respiratory symptoms No H/O smoking CT suggestive of possible nerve sheath tumor or pathologically enlarged lymph node. Needs work up as outpatient H/O CVA: Continue Aspirin, Statins DM II Will hold oral diabetic meds Last A1c:7.7 ISS, basal Insulin, Accu checks, Diabetic diet Depression NBA: continue home meds H/O Thyroid cancer S/P resection Postsurgical hypothyroidism continue Levothyroxine check TSH HTN: Stable continue Home meds DVT Px: Heparin SQ Code Status: Full Code Resuscitation Status VTE Prophylaxis Will order VTE Prophylaxis: Yes
--- NOTE | 2018-02-21 19:17 | EMERGENCY ROOM VISIT NOTE ---
History Report prepared by Maximilian: Fiorella Landry Under the Supervision of: Dr. Kali Leyva D.O. First contact with patient: 15:52 Chief Complaint: CHEST PAIN Stated Complaint: HEAVY CHEST PAIN/KIDNEY/BLADDER Nursing Triage Summary: Patient ambulatory to triage, slowly, states "Right now, my chest is heavy. The thing I am most concerned about is pain in my lower back that woke me up around 0440 this morning. The back pain started this morning and is really bad today. I had the pain for the first time a couple of months ago. I have a lot of burning and pain with urination that has been going on for a while too." Patient reports bacteria in urine. Patient was on Amoxil and Bactrim for the urinary infection. Patient reports chest heaviness started this afternoon while sitting in a chair. The heaviness is associated with some shortness of breath and tightness. Patient reports that the pain has been constant since it started. History of Present Illness The patient is a 53 year old female who presents to the Emergency Room with complaints of persistent back pain starting 0400 this morning. The patient reports that she has been treated for a UTI since November. She was on amoxicillin and Cipro. She is continuing to have urinary frequency and burning. She reports lower abdominal pain like her bladder is full, but often does not urinate. Last night, she started having bilateral back pain. She is concerned about a kidney infection. She was sent to the ED by her PCP's office. She is also having constant chest heaviness which started around 1200 today. The patient was just sitting when the chest pain started. The pain does not worsen with walking or breathing. She does not identify anything that improves or worsens her pain. She denies any history of kidney stones. She has a history of [place] and stroke 2 years ago. Source of History: patient Onset: 0400 this morning Position: back (bilateral) Quality: other (kidney pain) Timing: other (persistent) Associated Symptoms: + chest pain, + abdominal pain, + urinary symptoms Review of Systems See HPI for pertinent positives & negatives. A total of 10 systems reviewed and were otherwise negative. Past Medical & Surgical Medical Problems: (1) Anxiety (2) Diabetes mellitus, type II (3) History enchondroma of left femur (4) History of thyroid cancer (5) History of toxic multinodular goiter (6) Obsessive compulsive disorder (7) Postsurgical hypothyroidism Surgical Problems: (1) Status post cholecystectomy (2) Status post excision enchondroma left femur (3) Status post thyroidectomy Family History Diabetes mellitus BROTHER BROTHER Myocardial infarction FATHER Ovarian cancer MOTHER Social History Smoking Status: Never Smoker Alcohol Use: none Marital Status: single Housing Status: lives with significant other Occupation Status: unemployed, disabled Current/Historical Medications Scheduled Amlodipine Besylate (Norvasc), 2.5 MG PO HS Aspirin (Aspirin Ec), 81 MG PO QAM Atorvastatin (Lipitor), 80 MG PO HS Canagliflozin (Invokana), 100 MG PO QAM Escitalopram Oxalate (Escitalopram Oxalate), 20 MG PO HS Insulin Human Isophan/Regular (Humulin 70/30), 50 UNITS SC BID Levothyroxine Sodium (Levothyroxine Sodium), 175 MCG PO HS Lorazepam (Ativan), 2 MG PO HS Metformin Hcl (Glucophage), 1,000 MG PO BID Metoprolol Succinate (Metoprolol Succinate ER), 25 MG PO HS Omeprazole (Prilosec), 20 MG PO HS Allergies Coded Allergies: NO KNOWN DRUG ALLERGIES (Verified Allergy, Unknown, ., 05/04/17) Adhesives (Verified Adverse Reaction, Mild, TAPE-RASH, 02/21/18) Physical Exam Vital Signs Date Time Temp Pulse Resp B/P (MAP) Pulse Ox O2 Delivery O2 Flow Rate FiO2 02/21/18 19:10 70 18 135/76 94 Room Air 02/21/18 17:46 69 16 127/74 98 Room Air 02/21/18 17:01 98 Room Air 02/21/18 17:01 98 Room Air 02/21/18 16:31 70 02/21/18 15:56 36.7 71 20 143/84 98 Room Air 02/21/18 15:54 98 Room Air Physical Exam GENERAL: Patient is awake, alert, somewhat anxious appearing and uncomfortable. EYES: The conjunctivae are clear. The pupils are round and reactive. EARS, NOSE, MOUTH AND THROAT: The nose is without any evidence of any deformity. Mucous membranes are moist tongue is midline NECK: The neck is nontender and supple. RESPIRATORY: Normal respiratory effort is noted there is no evidence of wheezing rhonchi or rales CARDIOVASCULAR: Regular rate and rhythm noted there no murmurs rubs or gallops normal S1 normal S2 GASTROINTESTINAL: The abdomen is moderately distended and diffusely tender. There was no guarding or rigidity appreciated. PELVIS: The Pelvis is stable. No tenderness to palpation is noted. BACK: No midline tenderness appreciated. There was bilateral CVA tenderness to percussion. Range of motion appeared intact. MUSCULOSKELETAL/EXTREMITIES: There is no evidence of gross deformity full range of motion is noted in the hips and shoulders SKIN: There is no obvious evidence of any rash. There are no petechiae, pallor or cyanosis noted. NEUROLOGIC: Patient is awake alert and oriented x3 strength is symmetric patellar reflexes are 2+ bilaterally Medical Decision & Procedures ER Provider Diagnostic Interpretation: X-ray results as stated below per interpretation by me and the radiologist. Radiology results as stated below per my review and radiologist interpretation: CHEST ONE VIEW PORTABLE CLINICAL HISTORY: 53 years-old Female presenting with CHEST PAIN. TECHNIQUE: Portable upright AP view of the chest was obtained. COMPARISON: 05/04/2017. FINDINGS: Cardiomediastinal silhouette normal. Mildly low lung volumes with hypoventilatory changes. Subpleural left paramediastinal apical opacity increased in size from prior exam. No other focal opacity. No large effusion or pneumothorax. Degenerative changes of the thoracic spine. Surgical clips noted in the left axilla. Upper abdomen normal. IMPRESSION: 1. Subpleural left paramediastinal apical opacity increased in size from prior exam. This may represent mass effect on the left apex from an adjacent structure. Further evaluation with chest CT to be considered. 2. Mildly low lung volumes with hypoventilatory changes. No convincing evidence of acute cardiopulmonary disease. The report will be called/faxed according to standard departmental protocol. Electronically signed by: Migel Noonan M.D. 02/21/2018 4:47 PM Dictated Date/Time: 02/21/2018 4:[address] (CHEST) THORAX WITH CLINICAL HISTORY: 53 years-old Female presenting with CP, abnormal CXR. TECHNIQUE: Multidetector CT imaging of the chest was performed after the administration of intravenous contrast. IV contrast: 114 mL of Optiray 320. A dose lowering technique was used consistent with the principles of ALARA (as low as reasonably achievable). COMPARISON: 04/01/2010 and chest x-ray performed the same day. CT DOSE (mGy.cm): The estimated cumulative dose is 814.01 mGy.cm. FINDINGS: Navigation Teacher topogram: Unremarkable. On soft tissue windows, thyroid not visualized. Ovoid soft tissue density mass at the superior mediastinum on the left, which corresponds to the radiographic finding. This measures 3.9 x 2.1 cm (series 5 image 41). No other axillary, supraclavicular, hilar, or mediastinal lymphadenopathy. Atherosclerosis of the aorta. Mild multichamber enlargement of the heart. No pericardial or pleural effusion. Cholelithiasis. On lung windows, minimal dependent changes likely atelectasis. No other focal nodule or infiltrate. Airways patent. On bone windows, degenerative changes of the spine. IMPRESSION: 1. 3.9 x 2.1 cm mass at the left superior mediastinum. Differential considerations include a nerve sheath tumor or, less likely, pathologically enlarged lymph node. 2. No acute intrathoracic pathology. The report will be called/faxed according to standard departmental protocol. Electronically signed by: Migel Noonan M.D. 02/21/2018 6:19 PM Dictated Date/Time: 02/21/2018 6:14 PM ABD/PELVIS NO IV OR ORAL CONT CLINICAL HISTORY: 53 years-old Female presenting with flank pain, low back pain, history of UTI. TECHNIQUE: Multidetector CT of the abdomen and pelvis was performed without the use of intravenous contrast. IV contrast: None. A dose lowering technique was used consistent with the principles of ALARA (as low as reasonably achievable). COMPARISON: 10/20/2016. CT DOSE (mGy.cm): The estimated cumulative dose is 989.66 mGy.cm. FINDINGS: Navigation Teacher topogram: Cholecystectomy clips noted. Lung bases: Minimal basilar opacities, likely atelectasis. Normal heart size. No pericardial or pleural effusion. Liver: Normal morphology. Normal density. Biliary: No gross biliary ductal dilatation allowing for noncontrast technique. Gallbladder surgically absent. Pancreas: Mild parenchymal atrophy. Spleen: Normal noncontrast appearance. Adrenal glands: Normal noncontrast appearance. Kidneys and ureters: Normal noncontrast appearance. No nephrolithiasis. No hydronephrosis. Normal ureters. Bladder: Circumferential bladder wall thickening. Pelvic organs: Normal noncontrast appearance. Indeterminate 1.9 cm suspected cyst in the left ovary. Bowel: Normal appendix. No bowel obstruction. Peritoneal cavity: No free fluid or intraperitoneal gas. Lymph nodes: No gross lymphadenopathy allowing for noncontrast technique. Vasculature: Atherosclerosis of the normal caliber abdominal aorta. Abdominal wall: Normal. Musculoskeletal: Degenerative changes of the spine. IMPRESSION: 1. Bladder wall thickening could indicate cystitis. Correlate with urinalysis. No hydronephrosis or nephrolithiasis. 2. 1.9 cm suspected cyst in the left ovary. This is probably benign. No further follow-up is necessary in this perimenopausal female per the [employer] incidental findings committee recommendations. Electronically signed by: Migel Noonan M.D. 02/21/2018 4:59 PM Dictated Date/Time: 02/21/2018 4:52 PM Laboratory Results Test 02/21/18 00:00 02/21/18 16:20 Urine Color YELLOW Urine Appearance CLOUDY (CLEAR) Urine pH 5.0 (4.5-7.5) Urine Specific Hooper 1.019 (1.000-1.030) Urine Protein NEG (NEG) Urine Glucose (UA) 3+ (NEG) Urine Ketones NEG (NEG) Urine Occult Blood TRACE (NEG) Urine Nitrite POS (NEG) Urine Bilirubin NEG (NEG) Urine Urobilinogen NEG (NEG) Urine Leukocyte Esterase MODERATE (NEG) Urine WBC (Auto) >30 /hpf (0-5) Urine RBC (Auto) 0-4 /hpf (0-4) Urine Hyaline Casts (Auto) 0 /lpf (0-5) Urine Epithelial Cells (Auto) >30 /lpf (0-5) Urine Bacteria (Auto) 4+ (NEG) Urine Pathogenic Casts /lpf (0) Immature Granulocyte % (Auto) 0.5 % White Blood Count 10.35 K/uL (4.8-10.8) Red Blood Count 5.08 M/uL (4.2-5.4) Hemoglobin 14.7 g/dL (12.0-16.0) Hematocrit 44.9 % (37-47) Mean Corpuscular Volume 88.4 fL (80-100) Mean Corpuscular Hemoglobin 28.9 pg (25-34) Mean Corpuscular Hemoglobin Concent 32.7 g/dl (32-36) Platelet Count 299 K/uL (130-400) Mean Platelet Volume 9.7 fL (7.4-10.4) Neutrophils (%) (Auto) 52.7 % Lymphocytes (%) (Auto) 32.2 % Monocytes (%) (Auto) 9.6 % Eosinophils (%) (Auto) 4.3 % Basophils (%) (Auto) 0.7 % Neutrophils # (Auto) 5.46 K/uL (1.4-6.5) Lymphocytes # (Auto) 3.33 K/uL (1.2-3.4) Monocytes # (Auto) 0.99 K/uL (0.11-0.59) Eosinophils # (Auto) 0.45 K/uL (0-0.5) Basophils # (Auto) 0.07 K/uL (0-0.2) Immature Granulocyte # (Auto) 0.05 K/uL (0.00-0.02) Prothrombin Time 10.1 SECONDS (9.0-12.0) Prothromb Time International Ratio 1.0 (0.9-1.1) Activated Partial Thromboplast Time 26.9 SECONDS (21.0-31.0) Partial Thromboplastin Ratio 1.0 Total Bilirubin 0.7 mg/dl (0.2-1) Direct Bilirubin 0.1 mg/dl (0-0.2) Aspartate Amino Transf (AST/SGOT) 17 U/L (15-37) Alanine Aminotransferase (ALT/SGPT) 26 U/L (12-78) Alkaline Phosphatase 85 U/L (45-117) Total Creatine Kinase 186 U/L (26-192) Creatine Kinase MB 2.8 ng/ml (0.5-3.6) Creatine Kinase MB Ratio 1.5 (0-3.0) Total Protein 7.8 gm/dl (6.4-8.2) Albumin 3.5 gm/dl (3.4-5.0) Lipase 148 U/L (73-393) Human Chorionic Gonadotropin, Qual NEG (NEG) Laboratory results per my review. Medications Administered Medications (Trade) Dose Ordered Sig/Angie Route Start Time Stop Time Status Last Admin Dose Admin Ondansetron HCl (Zofran Inj) 4 mg NOW STAT IV 02/21/18 15:58 02/21/18 16:02 DC 02/21/18 16:31 4 MG Sodium Chloride 1,000 ml @ 999 mls/hr Q1H1M STAT IV 02/21/18 15:58 02/21/18 16:58 DC 02/21/18 16:31 999 MLS/HR Fentanyl Citrate (Fentanyl Inj) 50 mcg Q15M PRN IV 02/21/18 16:00 02/21/18 21:46 DC 02/21/18 17:45 50 MCG Ceftriaxone Sodium (Rocephin Inj) 1 gm NOW STAT IV 02/21/18 18:15 02/21/18 18:16 DC 02/21/18 19:06 1 GM ECG Per My Interpretation Indication: chest pain Rate (beats per minute): 70 Rhythm: normal sinus Findings: RBBB, other (no PVC) Comparison ECG Date: 04-May-2017 Change: no significant change ED Course 1553: The patient was evaluated in room C3. A complete history and physical examination were performed. 1558: NSS 1,000 ml @ 999 mls/hr IV, Zofran Inj 4 mg IV. 1600: Fentanyl Inj 50 mcg IV. 1815: Rocephin Inj 1 gm IV. 1850: Upon reevaluation, the patient is stable. I discussed results and treatment plan with her. She verbalizes agreement and understanding. The patient will be evaluated for further management and care. 185: I [facility] The patient will be evaluated for further management. Medical Decision Prior records/ancillary studies reviewed. Triage Nursing notes reviewed. The patient's history was concerning for chest pain. Differential diagnosis: Etiologies such as cardiac ischemia, aortic dissection, pulmonary embolism, pneumonia, pneumothorax, musculoskeletal, infections, pericarditis, myocarditis , esophageal rupture, gastrointestinal, as well as others were entertained. The patient is a 53-year-old female who presented to the emergency department with multiple complaints. The patient describes chest discomfort. She is also had ongoing difficulty urinating with dysuria and frequency. The patient was sent to the emergency department by her primary care physician with concerns of this chest pain. I discussed patient's laboratory and radiographic studies with her. She was treated with IV fluids IV pain medicine and IV anti-medics. She was also given IV antibiotics for presumed urinary tract infection. Because of her symptoms and her past medical history risk factors I discussed her case [facility] They have agreed to evaluate the patient in the emergency department for further management and disposition. Medication Reconcilliation Current Medication List: was personally reviewed by me Blood Pressure Screening Patient's blood pressure: Normal blood pressure Blood pressure disposition: Did not require urgent referral Consults Time Called: 1853 Consulting Physician: CAROL Jansen hospitalist Returned Call: 1858 I discussed the patient's case with her. The patient will be evaluated for further management. Impression Primary Impression: UTI (urinary tract infection) Additional Impressions: Chest pain Mediastinal mass Scribe Attestation The scribe's documentation has been prepared under my direction and personally reviewed by me in its entirety. I confirm that the note above accurately reflects all work, treatment, procedures, and medical decision making performed by me. Departure Information Dispostion Being Evaluated By Hospitalist Referrals Oralia Mccoy M.D. (PCP) Patient Instructions My [facility] Problem Qualifiers Primary Impression: UTI (urinary tract infection) Urinary tract infection type: site unspecified Hematuria presence: without hematuria Qualified Codes: N39.0 - Urinary tract infection, site not specified Additional Impressions: Chest pain Chest pain type: unspecified Qualified Codes: R07.9 - Chest pain, unspecified
[2018-02-21] MEDS ORDERED: ACETAMINOPHEN 325 MG TAB PO PRN (20:00)
[2018-02-21] MEDS ORDERED: ONDANSETRON INJ 2 MG/ML 2 ML VIAL IV PRN (20:00)
[2018-02-21] MEDS ORDERED: NITROGLYCERIN 0.4 MG SL PER TAB CHARGE SL PRN (20:00)
[2018-02-21] MEDS ORDERED: ASPIRIN 81 MG ECTAB PO STA (20:15)
[2018-02-21] MEDS ORDERED: ATV/1 PO (20:20)
[2018-02-21 20:28] VITALS: BP 139/78; PULSE 76; TEMP 36.7; BMI 31.2; BMI 31.3
[2018-02-21] MEDS ORDERED: LEVOTHYROXINE 175 MCG TAB PO SCH (21:00)
[2018-02-21] MEDS ORDERED: PANTOprazole SOD 40 MG TAB PO SCH (21:00)
[2018-02-21] MEDS ORDERED: AMLODIPINE BESYLATE 5 MG TAB PO SCH (21:00)
[2018-02-21] MEDS ORDERED: ATORVASTATIN 40 MG TAB PO SCH (21:00)
[2018-02-21] MEDS ORDERED: METOPROLOL SUCC 25MG EXT REL TAB PO SCH (21:00)
--- NOTE | 2018-02-21 21:46 | DIAGNOSTIC IMAGING REPORT ---
(RENAL)RETROPERITON COMP HISTORY: 53 years-old Female flank pain, Inability to Urinate acute bilateral flank pain with difficulty urinating COMPARISON: CT abdomen and pelvis of same day TECHNIQUE: Multiple real-time sonographic images of the kidneys and bladder were obtained assessing grayscale appearance and color flow FINDINGS: Right kidney measures 11.9 x 5.4 x 6.3 cm and is unremarkable without renal calculi, hydronephrosis or suspicious mass lesions. The left kidney measures 12.4 x 6.3 x 5.3 cm and is also within normal limits without renal calculi, hydronephrosis or suspicious mass lesions. Urinary bladder is unremarkable with bilateral ureteral jets noted. IMPRESSION: Unremarkable sonographic exam of the kidneys and urinary bladder. No renal calculi or hydronephrosis. The above report was generated using voice recognition software. It may contain grammatical, syntax or spelling errors. Electronically signed by: Ashwin Martinez M.D. 02/21/2018 9:45 PM Dictated Date/Time: 02/21/2018 9:44 PM
[2018-02-21] MEDS: NSS + 20MEQ KCL 1000ML 1,000 ML IV SCH (22:24)
[2018-02-21] MEDS: ESCITALOPRAM OXALATE 20 MG TAB PO SCH (22:25)
[2018-02-21] MEDS: OXYCODONE/ACETAMINOPHEN 5-325 TAB PO PRN (22:25)
[2018-02-21] MEDS: HEPARIN SOD 5000 UNIT/0.5 ML CARP SQ SCH (22:30)
[2018-02-21] MEDS ORDERED: DEXTROSE 50% 50 ML SYR IV PRN (22:45)
[2018-02-21] MEDS ORDERED: GLUCAGON FOR INJ 1 MG VIAL SQ PRN (22:45)
[2018-02-21] MEDS ORDERED: GLUCOSE 10 TABS/TUBE PO PRN (22:45)
[2018-02-21] MEDS ORDERED: GLUCOSE 40% GEL 15 GM TUBE PO PRN (22:45)
[2018-02-21] MEDS: INSULIN ASPART 100 UNITS/ML 3 ML PEN SC SCH (23:36)
[2018-02-21 23:49] VITALS: BP 121/79; PULSE 68; TEMP 36.7; O2SAT 96
[2018-02-22] VITALS (8 sets, daily range): BP systolic 99–133; BP diastolic 55–79; PULSE 62–65; TEMP 36.5–36.9; O2SAT 91–97; Ht 175.3 cm; Wt 95.1 kg
[2018-02-22] MEDS: LORAZEPAM 1 MG TAB PO PRN ×2 (00:12→19:40)
[2018-02-22] MEDS: MoRPHine SULFATE 2 MG/ML CARP IV PRN ×2 (00:16→20:48)
[2018-02-22 04:29] LABS: HEMATOCRIT 42.1 % (37-47); HEMOGLOBIN 13.9 g/dL (12.0-16.0); MEAN CORPUSCULAR HEMOGLOBIN 29.4 pg (25-34); MEAN PLATELET VOLUME 9.7 fL (7.4-10.4); PLATELET COUNT 286 K/uL (130-400); RED CELL DISTRIBUTION WIDTH CV 14.3 % (11.5-14.5); RED CELL DISTRIBUTION WIDTH SD 47.1 fL (36.4-46.3); WHITE BLOOD COUNT 10.54 K/uL (4.8-10.8)
[2018-02-22 04:47] LABS: BLOOD UREA NITROGEN 13 mg/dl (7-18); CALCIUM 7.9 mg/dl (8.5-10.1); CARBON DIOXIDE 30 mmol/L (21-32); CREATININE 0.73 mg/dl (0.60-1.20); GLUCOSE 136 mg/dl (70-99); POTASSIUM 3.8 mmol/L (3.5-5.1); SODIUM 138 mmol/L (136-145)
[2018-02-22 04:58] LABS: CHOLESTEROL 115 mg/dl (0-200); LDL CHOLESTEROL CALCULATED 43 mg/dl
[2018-02-22] MEDS: HEPARIN SOD 5000 UNIT/0.5 ML CARP SQ SCH ×3 (06:12→21:55)
[2018-02-22 06:18] LABS: HEMOGLOBIN A1C 8.9 % (4.5-5.6)
[2018-02-22] MEDS: INSULIN ASPART 100 UNITS/ML 3 ML PEN SC SCH ×4 (07:00→20:55)
[2018-02-22] MEDS: INSULIN GLARGINE SOLOSTAR 100 UNITS/ML 3 ML PEN SC SCH ×2 (08:16→20:55)
[2018-02-22] MEDS: ASPIRIN 81 MG ECTAB PO SCH (09:54)
--- NOTE | 2018-02-22 10:41 | ECHOCARDIOGRAM REPORT ---
*NOTICE TO RECEIVING LIBERTARIAN AGENCY This information is strictly Confidential and protected under [place] law. [place] law prohibits you from making any further disclosure of this information unless further disclosure is expressly permitted by the written consent of the person to whom it pertains or is authorized by law. A general authorization for the release of medical or other information is not sufficient for this purpose. Hospital accepts no responsibility if the information is made available to any other person, INCLUDING THE PATIENT. Interpretation Summary * Name: HENRIK HOWARD Study Date: 02/22/2018 06:54 AM BP: 119/73 mmHg * Patient Location: [facility] HR: 63 * : 1965 (M/d/yyyy) Gender: Female Height: 69 in * Age: 53 yrs Ethnicity: CA Weight: 210 lb * Ordering Physician: Mainor Tan * Referring Physician: Oralia Mccoy * Performed By: Heidi Yo RDCS * * Reason For Study: Chest pain * BSA: 2.1 m2 * The study was technically adequate. * -- Conclusions -- * The left ventricular wall motion is normal. * Left ventricular systolic function is normal. * The LV Ejection Fraction = 60-65%. * There is trace tricuspid regurgitation. * Grade I diastolic dysfunction, (abnormal relaxation pattern). Procedure Details * A complete two-dimensional transthoracic echocardiogram was performed (2D, M-mode, Doppler and color flow Doppler). Left Ventricle * The left ventricle is normal in size. * There is normal left ventricular wall thickness. * Left ventricular systolic function is normal. * Ejection Fraction = 60-65%. * The left ventricular wall motion is normal. Right Ventricle * The right ventricle is normal size. * The right ventricular systolic function is normal as assessed by tricuspid annular plane systolic excursion (TAPSE) (normal >1.5 cm). Atria * The left atrial size is normal. * Right atrial size is normal. * There is no evidence of atrial septal defect, but resolution does not allow assessment for a patent foramen ovale. Mitral Valve * The mitral valve is normal. * There is no mitral valve stenosis. * Significant mitral regurgitation is absent. Tricuspid Valve * The tricuspid valve is normal. * There is no tricuspid stenosis. * There is trace tricuspid regurgitation. * Doppler findings do not suggest pulmonary hypertension. Aortic Valve * The aortic valve is trileaflet. * Aortic valve sclerosis mild, without significant aortic valvular stenosis. * Aortic stenosis is absent. * There is no significant aortic regurgitation. Pulmonic Valve * The pulmonary valve is not well seen, but the Doppler examination is normal without significant regurgitation or stenosis. Great Vessels * The aortic root and proximal ascending aorta are normal sized. Pericardium/Pleural * There is no pericardial effusion. Great Vessels * Normal inferior vena cava diameter and respiratory variation suggests normal central venous pressure. * Normal inferior vena cava size and collapsability with sniff indicates a normal right atrial pressure of 3 mmHg Left Ventricular Diastolic Function * Grade I diastolic dysfunction, (abnormal relaxation pattern). MMode 2D Measurements and Calculations IVSd 0.92 cm LVIDd 4.2 cm LVIDs 2.7 cm LVPWd 1.1 cm IVS/LVPW 0.83 FS 35.3 % EDV(Teich) 79.1 ml ESV(Teich) 27.6 ml EF(Teich) 65.1 % EDV(cubed) 74.8 ml ESV(cubed) 20.2 ml EF(cubed) 73.0 % LV mass(C)d 141.3 grams LV mass(C)dI 67.0 grams/m\S\2 SV(Teich) 51.5 ml SI(Teich) 24.4 ml/m\S\2 SV(cubed) 54.6 ml SI(cubed) 25.9 ml/m\S\2 Ao root diam 2.7 cm Ao root area 5.9 cm\S\2 ACS 1.4 cm LA dimension 3.4 cm asc Aorta Diam 2.8 cm LA/Ao 1.2 LVOT diam 2.0 cm LVOT area 3.1 cm\S\2 LVAd ap4 31.3 cm\S\2 LVLd ap4 8.3 cm EDV(MOD-sp4) 97.2 ml EDV(sp4-el) 100.0 ml LVAs ap4 16.4 cm\S\2 LVLs ap4 6.7 cm ESV(MOD-sp4) 34.5 ml ESV(sp4-el) 34.2 ml EF(MOD-sp4) 64.6 % EF(sp4-el) 65.8 % LVAd ap2 30.8 cm\S\2 LVLd ap2 8.3 cm EDV(MOD-sp2) 97.5 ml EDV(sp2-el) 96.6 ml LVAs ap2 16.4 cm\S\2 LVLs ap2 6.6 cm ESV(MOD-sp2) 33.8 ml ESV(sp2-el) 34.2 ml EF(MOD-sp2) 65.4 % EF(sp2-el) 64.6 % LVLd %diff -0.11 % EDV(MOD-bp) 96.6 ml LVLs %diff -0.73 % ESV(MOD-bp) 33.8 ml EF(MOD-bp) 65.0 % SV(MOD-sp4) 62.8 ml SI(MOD-sp4) 29.8 ml/m\S\2 SV(MOD-sp2) 63.7 ml SI(MOD-sp2) 30.2 ml/m\S\2 SV(MOD-bp) 62.8 ml SI(MOD-bp) 29.8 ml/m\S\2 SV(sp4-el) 65.7 ml SI(sp4-el) 31.2 ml/m\S\2 SV(sp2-el) 62.5 ml SI(sp2-el) 29.6 ml/m\S\2 Doppler Measurements and Calculations MV E max halina 63.5 cm/sec MV A max halina 72.3 cm/sec MV E/A 0.88 MV dec time 0.21 sec Ao V2 max 93.7 cm/sec Ao max PG 3.5 mmHg Ao max PG (full) 1.7 mmHg GEORGE(V,A) 2.2 cm\S\2 GEORGE(V,D) 2.2 cm\S\2 LV V1 max PG 1.8 mmHg LV V1 max 66.9 cm/sec PA V2 max 77.4 cm/sec PA max PG 2.4 mmHg PA acc slope 272.6 cm/sec\S\2 PA acc time 0.17 sec TR max halina 208.4 cm/sec PA pr(Accel) 2.9 mmHg
[2018-02-22] MEDS ORDERED: AMLODIPINE BESYLATE 5 MG TAB PO ONE (11:00)
--- NOTE | 2018-02-22 11:09 | Cardiology Consultation ---
Cardiology Consultation Date of Consultation: Feb 22, 2018 History of Present Illness Patient is a 53 year old female seen in cardiology consultation per the request of Dr. Tan for the evaluation of chest discomfort. The patient follows with Dr. Orozco of our practice with most recent clinic visit in January 2018. She has a long-standing history of diabetes. She underwent cardiac catheterization in December 2015 after an abnormal dobutamine stress echocardiogram with findings of branch vessel diabetic coronary artery disease with narrowing of the LAD, circumflex, and posterolateral right coronary branch for which medical management was recommended. She is a history of a chronic right bundle branch block. The patient tells me that she has been having problems with recurrent urinary tract infection since November, and has been on multiple medications. The last several days she has been having a pain in her right low back that radiates around her right flank and into the pubic region and she has had difficulty passing her urine. 2 nights ago she had onset of bandlike chest pressure over her anterior chest at 4 AM. The pain subsided on its own, and was present to a lesser degree throughout the day yesterday until she ultimately came to the emergency room for evaluation. EKG and serial troponin levels have been negative thus far. Currently when I saw the patient on the telemetry floor she was feeling well with the exception of having ongoing dysuria. Past Medical/Surgical History Problem List: Medical Problems: (1) Anxiety (2) Diabetes mellitus, type II (3) History enchondroma of left femur (4) History of thyroid cancer (5) History of toxic multinodular goiter (6) Obsessive compulsive disorder (7) Postsurgical hypothyroidism Surgical Problems: (1) Status post cholecystectomy (2) Status post excision enchondroma left femur (3) Status post thyroidectomy History Past Surgical History: 1. Cardiac catheterization 2015 2.Cholecystectomy, 2004 3.Remote thyroidectomy 2008 Social History: She works at home, she performs a lot of physical labor on her property including chopping wood at baseline Family History: Her father of a myocardial infarction in his 50s Review Of Systems 10 point review of systems was negative with the exception of that noted above. In addition the patient does have chronic back and shoulder discomfort with a chronic rotator cuff Allergies Coded Allergies: NO KNOWN DRUG ALLERGIES (Verified Allergy, Unknown, ., 05/04/17) Adhesives (Verified Adverse Reaction, Mild, TAPE-RASH, 02/21/18) Medications Reported Home Medications Medications Dose Route/Sig Max Daily Dose Days Date Category Invokana (Canagliflozin) 100 Mg Tab 100 Mg PO QAM 12/15/16 Reported Aspirin Ec (Aspirin) 81 Mg Tab 81 Mg PO QAM 06/20/16 Reported Humulin 70/30 (Insulin Human Isoph/Insulin Regular) Inj 50 Units SC BID 06/20/16 Reported Glucophage (Metformin Hcl) 1,000 Mg Tab 1,000 Mg PO BID 06/20/16 Reported Metoprolol Succinate ER (Metoprolol Succinate) 25 Mg Tabcr 25 Mg PO HS 06/20/16 Reported Norvasc (Amlodipine Besylate) 2.5 Mg Tab 2.5 Mg PO HS 06/20/16 Reported Lipitor (Atorvastatin Calcium) 80 Mg Tab 80 Mg PO HS 06/20/16 Reported Ativan (Lorazepam) 1 Mg Tab 2 Mg PO HS 06/20/16 Reported Escitalopram Oxalate 20 Mg Tab 20 Mg PO HS 06/20/16 Reported Prilosec (Omeprazole) 20 Mg Cap 20 Mg PO HS 09/26/14 Reported Levothyroxine Sodium 175 Mcg Tab 175 Mcg PO HS 09/26/14 Reported Physical Exam Vital Signs (Last 8hrs): Last 8 Hrs Date Time Temp Pulse Resp B/P (MAP) Pulse Ox O2 Delivery O2 Flow Rate FiO2 02/22/18 08:00 Room Air 02/22/18 07:23 36.6 63 20 117/76 (90) 94 Room Air 02/22/18 04:25 36.5 63 16 119/73 (88) 92 Room Air 02/22/18 04:15 92 Room Air General Appearance: Alert and Oriented x3. NAD. Head: Normocephalic Atraumatic. Eyes: PERRLA, EOMI, conjunctiva and sclera clear Neck: Supple. No carotid bruits noted. No JVD. No HJD. Respiratory: Breath sounds clear to auscultation bilaterally. No w/r/r. Cardiovascular: Reg rate and rhythm. S1 and S2 noted. No murmurs, rubs, gallops. PMI non displace. Abdomen: Normal bowel sounds, soft nontender. no abdominal bruits. Extremities: No edema, no clubbing or cyanosis. distal pulses 2/4 bilaterally. Neuro: No focal deficits. Psychiatric: Normal affect. Data Last 24 Hours Test 02/21/18 16:20 02/21/18 22:11 02/22/18 04:19 02/22/18 06:25 White Blood Count 10.35 K/uL 10.54 K/uL Red Blood Count 5.08 M/uL 4.73 M/uL Hemoglobin 14.7 g/dL 13.9 g/dL Hematocrit 44.9 % 42.1 % Mean Corpuscular Volume 88.4 fL 89.0 fL Mean Corpuscular Hemoglobin 28.9 pg 29.4 pg Mean Corpuscular Hemoglobin Concent 32.7 g/dl 33.0 g/dl Platelet Count 299 K/uL 286 K/uL Mean Platelet Volume 9.7 fL 9.7 fL Neutrophils (%) (Auto) 52.7 % Lymphocytes (%) (Auto) 32.2 % Monocytes (%) (Auto) 9.6 % Eosinophils (%) (Auto) 4.3 % Basophils (%) (Auto) 0.7 % Neutrophils # (Auto) 5.46 K/uL Lymphocytes # (Auto) 3.33 K/uL Monocytes # (Auto) 0.99 K/uL Eosinophils # (Auto) 0.45 K/uL Basophils # (Auto) 0.07 K/uL RDW Standard Deviation 46.5 fL 47.1 fL RDW Coefficient of Variation 14.3 % 14.3 % Immature Granulocyte % (Auto) 0.5 % Immature Granulocyte # (Auto) 0.05 K/uL Prothrombin Time 10.1 SECONDS Prothromb Time International Ratio 1.0 Activated Partial Thromboplast Time 26.9 SECONDS Partial Thromboplastin Ratio 1.0 Sodium Level 137 mmol/L 138 mmol/L Potassium Level 3.5 mmol/L 3.8 mmol/L Chloride Level 103 mmol/L 105 mmol/L Carbon Dioxide Level 29 mmol/L 30 mmol/L Anion Gap 5.0 mmol/L 3.0 mmol/L Blood Urea Nitrogen 13 mg/dl 13 mg/dl Creatinine 0.74 mg/dl 0.73 mg/dl Est Creatinine Clear Calc Drug Dose 105.8 ml/min 107.5 ml/min Estimated GFR () 105.7 107.5 Estimated GFR (Non- 91.2 92.7 BUN/Creatinine Ratio 17.9 18.3 Random Glucose 95 mg/dl 136 mg/dl Calcium Level 8.1 mg/dl 7.9 mg/dl Total Bilirubin 0.7 mg/dl Direct Bilirubin 0.1 mg/dl Aspartate Amino Transf (AST/SGOT) 17 U/L Alanine Aminotransferase (ALT/SGPT) 26 U/L Alkaline Phosphatase 85 U/L Total Creatine Kinase 186 U/L Creatine Kinase MB 2.8 ng/ml Creatine Kinase MB Ratio 1.5 Troponin I < 0.015 ng/ml < 0.015 ng/ml < 0.015 ng/ml Total Protein 7.8 gm/dl Albumin 3.5 gm/dl Lipase 148 U/L Human Chorionic Gonadotropin, Qual NEG Bedside Glucose 207 mg/dl 139 mg/dl Estimated Average Glucose 209 mg/dl Hemoglobin A1c 8.9 % Magnesium Level 2.0 mg/dl Triglycerides Level 130 mg/dl Cholesterol Level 115 mg/dl HDL Cholesterol 46 mg/dl LDL Cholesterol, Calculated 43 mg/dl VLDL Cholesterol, Calculated 26 mg/dl Cholesterol/HDL Ratio 2.5 Thyroid Stimulating Hormone (TSH) 3.800 uIu/ml Test 02/22/18 10:37 Bedside Glucose 134 mg/dl EKG performed on 02/21/18 again this morning 02/22/18 reveals sinus rhythm with right bundle branch block. EKG on 02/21/18 revealed T-wave inversions in V2 V3 which have since resolved on the repeat today. Assessment & Plan Impression: 1. Patient's age and suggestive of recurrent urinary tract infection 2. Superimposed chest pressure Discussion/recommendations: The patient is feeling well from a cardiac perspective at present. Concerned that perhaps her progressive urinary symptoms are in fact causing her to have increased myocardial workload and demand ischemia. Is difficult to say whether or not the T-wave inversions noted on the EKG on presentation yesterday are pathologic given her right bundle branch block. Cardiac enzymes are negative and she is comfortable at present. She has known small vessel diabetic related coronary disease. At present, I recommend that we continue treatment of suspected urinary tract infection. Urine cultures are pending at present she is on Rocephin. We will increase her antianginal medications with planned increase in amlodipine from 2.5 mg to 5 mg. I am going to advance patient's diet and observe her. Resting transthoracic echocardiogram been requested by the admitting team and I will follow-up on this. Review of her medication list reveals that she is on a diabetic agent Invokana as an outpatient. This medication can be associated with recurrent urinary tract infections, and perhaps ongoing use of this agent needs to be reassessed during his hospital stay for moving forward.
[2018-02-22] MEDS: OXYCODONE/ACETAMINOPHEN 5-325 TAB PO PRN ×2 (12:52→19:40)
--- NOTE | 2018-02-22 14:26 | Progress Note ---
Internal Med Progress Note Date of Service: Feb 22, 2018. Provider Documentation: SUBJECTIVE: The patient was seen and examined in the telemetry unit Was admitted with back pain and chest pressure Noted to have UTI Clinically better today and complains to have some back pain OBJECTIVE: Vital Signs-as noted below Exam: General-no distress at rest Eyes-normal ENT-normal Neck-supple Lungs-clear to auscultate bilaterally Heart-regular, no murmur appreciated Abdomen-benign, soft, mildly tender hypogastrium and bilateral renal angles Extremities-no edema Neuro-, awake, awake and oriented 3 alert No focal neuro deficit appreciated Lab data as noted below. ASSESSMENT & PLAN: UTI: Presented with dysuria, Inability to Urinate, B/L flank pain, Bladder pressure, abnormal UA Started on IV Rocephin and will continue IV fluids and encourage more oral fluid intake Urine culture-pending Clinically better Urinary Retention: Imaging studies no signs of obstruction Bladder Scan PRN, Straight Cath PRN Renal US-0unremarkable Chest Pain: R/O ACS Risk factors: H/O CAD, DM II, Obesity Initial troponin:Negative and serial troponis -negative EKG shows: No signs of acute Ischemia Appreciate cardiology input Left Ovarian Cyst: Family H/O Ovarian Cancer Needs follow up with OBGYN as outpatient Left superior mediastinum Mass: Denies any respiratory symptoms No H/O smoking CT suggestive of possible nerve sheath tumor or pathologically enlarged lymph node. Needs work up as outpatient H/O CVA: Continue Aspirin, Statins DM II Will hold oral diabetic meds Last A1c:7.7 ISS, basal Insulin, Accu checks, Diabetic diet Blood sugar controlled Depression NBA: continue home meds H/O Thyroid cancer S/P resection Postsurgical hypothyroidism continue Levothyroxine check TSH HTN: Stable continue Home meds DVT Px: Heparin SQ Code Status: Full Code Vital Signs: Date Time Temp Pulse Resp B/P (MAP) Pulse Ox O2 Delivery O2 Flow Rate FiO2 02/22/18 12:00 Room Air 02/22/18 11:07 36.9 64 18 124/77 (93) 96 Room Air 02/22/18 08:00 Room Air 02/22/18 07:23 36.6 63 20 117/76 (90) 94 Room Air 02/22/18 04:25 36.5 63 16 119/73 (88) 92 Room Air 02/22/18 04:15 92 Room Air 02/22/18 00:15 95 Room Air 02/21/18 23:49 36.7 68 17 121/79 (93) 96 Room Air 02/21/18 20:36 70 18 133/71 96 Room Air 02/21/18 20:28 36.7 76 18 139/78 Room Air 02/21/18 19:10 70 18 135/76 94 Room Air 02/21/18 17:46 69 16 127/74 98 Room Air 02/21/18 17:01 98 Room Air 02/21/18 17:01 98 Room Air 02/21/18 16:31 70 02/21/18 15:56 36.7 71 20 143/84 98 Room Air 02/21/18 15:54 98 Room Air Lab Results: Results Past 24 Hours Test 02/21/18 16:20 02/21/18 22:11 02/22/18 04:19 02/22/18 06:25 Range/Units White Blood Count 10.35 10.54 4.8-10.8 K/uL Red Blood Count 5.08 4.73 4.2-5.4 M/uL Hemoglobin 14.7 13.9 12.0-16.0 g/dL Hematocrit 44.9 42.1 37-47 % Mean Corpuscular Volume 88.4 89.0 80-100 fL Mean Corpuscular Hemoglobin 28.9 29.4 25-34 pg Mean Corpuscular Hemoglobin Concent 32.7 33.0 32-36 g/dl Platelet Count 299 286 130-400 K/uL Mean Platelet Volume 9.7 9.7 7.4-10.4 fL Neutrophils (%) (Auto) 52.7 % Lymphocytes (%) (Auto) 32.2 % Monocytes (%) (Auto) 9.6 % Eosinophils (%) (Auto) 4.3 % Basophils (%) (Auto) 0.7 % Neutrophils # (Auto) 5.46 1.4-6.5 K/uL Lymphocytes # (Auto) 3.33 1.2-3.4 K/uL Monocytes # (Auto) 0.99 0.11-0.59 K/uL Eosinophils # (Auto) 0.45 0-0.5 K/uL Basophils # (Auto) 0.07 0-0.2 K/uL RDW Standard Deviation 46.5 47.1 36.4-46.3 fL RDW Coefficient of Variation 14.3 14.3 11.5-14.5 % Immature Granulocyte % (Auto) 0.5 % Immature Granulocyte # (Auto) 0.05 0.00-0.02 K/uL Prothrombin Time 10.1 9.0-12.0 SECONDS Prothromb Time International Ratio 1.0 0.9-1.1 Activated Partial Thromboplast Time 26.9 21.0-31.0 SECONDS Partial Thromboplastin Ratio 1.0 Sodium Level 137 138 136-145 mmol/L Potassium Level 3.5 3.8 3.5-5.1 mmol/L Chloride Level 103 105 98-107 mmol/L Carbon Dioxide Level 29 30 21-32 mmol/L Anion Gap 5.0 3.0 3-11 mmol/L Blood Urea Nitrogen 13 13 7-18 mg/dl Creatinine 0.74 0.73 0.60-1.20 mg/dl Est Creatinine Clear Calc Drug Dose 105.8 107.5 ml/min Estimated GFR () 105.7 107.5 Estimated GFR (Non- 91.2 92.7 BUN/Creatinine Ratio 17.9 18.3 10-20 Random Glucose 95 136 70-99 mg/dl Calcium Level 8.1 7.9 8.5-10.1 mg/dl Total Bilirubin 0.7 0.2-1 mg/dl Direct Bilirubin 0.1 0-0.2 mg/dl Aspartate Amino Transf (AST/SGOT) 17 15-37 U/L Alanine Aminotransferase (ALT/SGPT) 26 12-78 U/L Alkaline Phosphatase 85 45-117 U/L Total Creatine Kinase 186 26-192 U/L Creatine Kinase MB 2.8 0.5-3.6 ng/ml Creatine Kinase MB Ratio 1.5 0-3.0 Troponin I < 0.015 < 0.015 < 0.015 0-0.045 ng/ml Total Protein 7.8 6.4-8.2 gm/dl Albumin 3.5 3.4-5.0 gm/dl Lipase 148 73-393 U/L Human Chorionic Gonadotropin, Qual NEG NEG Bedside Glucose 207 139 70-90 mg/dl Estimated Average Glucose 209 mg/dl Hemoglobin A1c 8.9 4.5-5.6 % Magnesium Level 2.0 1.8-2.4 mg/dl Triglycerides Level 130 0-150 mg/dl Cholesterol Level 115 0-200 mg/dl HDL Cholesterol 46 mg/dl LDL Cholesterol, Calculated 43 mg/dl VLDL Cholesterol, Calculated 26 mg/dl Cholesterol/HDL Ratio 2.5 Thyroid Stimulating Hormone (TSH) 3.800 0.300-4.500 uIu/ml Test 02/22/18 10:37 Range/Units Bedside Glucose 134 70-90 mg/dl Microbiology Results 02/22/18 Urine Culture, Received Pending
[2018-02-22] MEDS: NSS + 20MEQ KCL 1000ML 1,000 ML IV SCH (15:33)
[2018-02-22] MEDS ORDERED: NURSING DECISION MEDICATION ORDER SCH (17:30)
[2018-02-22] MEDS: METOPROLOL SUCC 25MG EXT REL TAB PO SCH (17:32)
[2018-02-22] MEDS: PANTOprazole SOD 40 MG TAB PO SCH (17:32)
[2018-02-22] MEDS: CEFTRIAXONE SOD INJ 1 GM in DEXTROSE 5% ADD-VANTAGE 50ML 50 ML IV SCH (17:32)
[2018-02-22] MEDS: LEVOTHYROXINE 175 MCG TAB PO SCH (17:32)
[2018-02-22] MEDS: ESCITALOPRAM OXALATE 20 MG TAB PO SCH (17:33)
[2018-02-22] MEDS: ATORVASTATIN 40 MG TAB PO SCH (17:33)
[2018-02-23 04:05] VITALS: BP 117/75; PULSE 64; TEMP 36.3; O2SAT 91
[2018-02-23] MEDS: HEPARIN SOD 5000 UNIT/0.5 ML CARP SQ SCH ×3 (06:04→20:52)
[2018-02-23 07:01] VITALS: BP 118/74; PULSE 64; TEMP 36.7; O2SAT 93
[2018-02-23] MEDS: AMLODIPINE BESYLATE 5 MG TAB PO SCH (08:59)
[2018-02-23] MEDS: ASPIRIN 81 MG ECTAB PO SCH (08:59)
[2018-02-23] MEDS: INSULIN ASPART 100 UNITS/ML 3 ML PEN SC SCH ×4 (09:00→20:51)
[2018-02-23] MEDS: INSULIN GLARGINE SOLOSTAR 100 UNITS/ML 3 ML PEN SC SCH ×2 (09:01→20:52)
[2018-02-23 10:34] VITALS: BP 127/78; PULSE 63; TEMP 36.9; O2SAT 93
--- NOTE | 2018-02-23 12:43 | Cardiology Follow-Up ---
Subjective General Date of Service: Feb 23, 2018. Chief Complaint: Follow-up, chest pain Pt evaluation today including: conversation w/ patient, physical exam History of Present Illness The patient is a 53 year old female seen in cardiology follow-up. Her chest pain is resolved. Her flank pain and suprapubic pain has improved, and she is urinating. She is currently on Rocephin. Urine culture is just come back as being positive for E. coli. Sensitivities are currently pending. EKG this morning reveals stable sinus rhythm with right bundle branch block and nonspecific anterior anteroseptal repolarization abnormalities, perhaps consistent with underlying right bundle branch block. Allergies Coded Allergies: NO KNOWN DRUG ALLERGIES (Verified Allergy, Unknown, ., 05/04/17) Adhesives (Verified Adverse Reaction, Mild, TAPE-RASH, 02/21/18) Social History Smoking Status: Never Smoker Hx Tobacco Use In Past Year?: No Hx Alcohol Use - Type And Amou: No Hx Substance Use - Type And Am: No Problem List Medical Problems: (1) Ataxia Status: Acute (2) Back pain Status: Acute (3) Chest pain Status: Acute (4) Constipation Status: Acute (5) Contusion of multiple sites Status: Acute (6) Fall Status: Acute (7) Generalized weakness Status: Acute (8) Hyperglycemia Status: Acute (9) Mediastinal mass Status: Acute (10) UTI (urinary tract infection) Status: Acute (11) UTI (urinary tract infection) Status: Acute (12) UTI (urinary tract infection) Status: Acute Physical Exam Vital Signs Last Vital Signs Documentation Date Time Temp Pulse Resp B/P (MAP) Pulse Ox O2 Delivery O2 Flow Rate FiO2 02/23/18 12:00 Room Air 02/23/18 10:34 36.9 63 20 127/78 (94) 93 Physical Exam Constitutional: Level of Distress: NAD Head: normocephalic Neck: supple Lungs: Auscultation: no wheezing, no rales/crackles, no rhonchi Cardiovascular: Heart Auscultation: RRR, normal S2, no rubs Extremities: no edema Neurologic: Gait & Station: pertinent finding (No focal neurologic deficits) Assessment and Plan Assessment and Plan Transthoracic echocardiogram performed 02/22/18 are reviewed and apparently by the undersigned: * -- Conclusions -- * The left ventricular wall motion is normal. * Left ventricular systolic function is normal. * The LV Ejection Fraction = 60-65%. * There is trace tricuspid regurgitation. * Grade I diastolic dysfunction, (abnormal relaxation pattern). Impression: 53-year-old female 1. Transient chest discomfort, perhaps angina induced in the setting of distress from underlying urinary tract infection. Cardiac enzymes negative. 2. E. coli UTI 3. 3.9 x 2.1 cm left superior mediastinal mass Plan: As noted in my initial consultation yesterday. The patient has a long-standing history of diabetes and diabetic related coronary artery disease. She had ischemic dobutamine stress echocardiogram in 2016 which prompted cardiac catheterization revealing diffuse small vessel diabetic coronary heart disease for which medical management was recommended. At present, I recommend intensifying her medication and therefore amlodipine was increased from 2.5 mg to 5 mg which she has tolerated well thus far. Await sensitivities of her urinalysis in order to specify antibiotic treatment of choice. Continue subcutaneous heparin. If as we increase the patient's activity after treatment for urinary tract infection if she describes exertional angina, may need to reconsider further ischemic evaluation. Would consider discontinuation of Invokana as outpatient as this medication has the known adverse effect of increased urinary tract infections. Plan to discuss further workup of the mediastinal mass with the primary service regarding outpatient versus inpatient workup. Laboratory Results Last 24 Hours Test 02/22/18 16:25 02/22/18 19:56 02/23/18 06:59 Bedside Glucose 162 mg/dl 174 mg/dl 163 mg/dl
[2018-02-23] MEDS: NSS + 20MEQ KCL 1000ML 1,000 ML IV SCH (13:34)
--- NOTE | 2018-02-23 15:21 | Progress Note ---
Internal Med Progress Note Date of Service: Feb 23, 2018. Provider Documentation: SUBJECTIVE: The patient was seen and examined in the telemetry unit Was admitted with back pain and chest pressure Noted to have UTI Minimal back pain last night Fine this AM OBJECTIVE: Vital Signs-as noted below Exam: General-no distress at rest Eyes-normal ENT-normal Neck-supple Lungs-clear to auscultate bilaterally Heart-regular, no murmur appreciated Abdomen-benign, soft, mildly tender hypogastrium and bilateral renal angles Extremities-no edema Neuro-, awake, awake and oriented 3 alert No focal neuro deficit appreciated Lab data as noted below. ASSESSMENT & PLAN: UTI:--E Coli Presented with dysuria, Inability to Urinate, B/L flank pain, Bladder pressure, abnormal UA Started on IV Rocephin and will continue IV fluids and encourage more oral fluid intake Urine culture-Sensitivity is pending Clinically better Urinary Retention: Imaging studies no signs of obstruction Bladder Scan PRN, Straight Cath PRN Renal US-0unremarkable No acute problem Chest Pain: R/O ACS Risk factors: H/O CAD, DM II, Obesity Initial troponin:Negative and serial troponis -negative EKG shows: No signs of acute Ischemia Appreciate cardiology input No more chest pain Left Ovarian Cyst: Family H/O Ovarian Cancer Needs follow up with OBGYN as outpatient Left superior mediastinum Mass: Denies any respiratory symptoms No H/O smoking CT suggestive of possible nerve sheath tumor or pathologically enlarged lymph node. Needs work up as outpatient H/O CVA: Continue Aspirin, Statins DM II Will hold oral diabetic meds Last A1c:7.7 ISS, basal Insulin, Accu checks, Diabetic diet Blood sugar controlled Depression NBA: continue home meds H/O Thyroid cancer S/P resection Postsurgical hypothyroidism continue Levothyroxine check TSH HTN: Stable continue Home meds DVT Px: Heparin SQ Code Status: Full Code Transfer to Medical Floor Likely discharge tomorrow Vital Signs: Date Time Temp Pulse Resp B/P (MAP) Pulse Ox O2 Delivery O2 Flow Rate FiO2 02/23/18 12:00 Room Air 02/23/18 10:34 36.9 63 20 127/78 (94) 93 Room Air 02/23/18 09:33 Room Air 02/23/18 08:00 Room Air 02/23/18 07:01 36.7 64 20 118/74 (89) 93 Room Air 02/23/18 04:05 36.3 64 14 117/75 (89) 91 Room Air 02/23/18 04:00 Room Air 02/23/18 00:01 Room Air 02/22/18 23:05 36.9 62 15 99/55 (70) 92 Room Air 02/22/18 20:00 Room Air 02/22/18 19:29 36.7 62 18 133/79 (97) 97 Room Air 02/22/18 16:17 36.6 65 17 127/75 (92) 91 Room Air 02/22/18 16:00 Room Air Lab Results: Results Past 24 Hours Test 02/22/18 16:25 02/22/18 19:56 02/23/18 06:59 Range/Units Bedside Glucose 162 174 163 70-90 mg/dl
[2018-02-23 15:29] VITALS: BP 124/73; PULSE 67; TEMP 38; O2SAT 95
[2018-02-23 16:11] VITALS: BP 132/81; PULSE 63; TEMP 36.5; O2SAT 96
[2018-02-23] MEDS: ATORVASTATIN 40 MG TAB PO SCH (18:01)
[2018-02-23] MEDS: METOPROLOL SUCC 25MG EXT REL TAB PO SCH (18:02)
[2018-02-23] MEDS: PANTOprazole SOD 40 MG TAB PO SCH (18:02)
[2018-02-23] MEDS: LEVOTHYROXINE 175 MCG TAB PO SCH (18:02)
[2018-02-23] MEDS: CEFTRIAXONE SOD INJ 1 GM in DEXTROSE 5% ADD-VANTAGE 50ML 50 ML IV SCH (18:04)
[2018-02-23] MEDS ORDERED: POLYETHYLENE (MIRALAX) 17 GM PACK PO PRN (20:00)
[2018-02-23] MEDS ORDERED: DOCUSATE SODIUM 100 MG CAP PO ONE (20:02)
[2018-02-23] MEDS ORDERED: POLYETHYLENE (MIRALAX) 17 GM PACK PO ONE (20:03)
[2018-02-23] MEDS: ESCITALOPRAM OXALATE 20 MG TAB PO SCH (20:38)
[2018-02-23] MEDS: LORAZEPAM 1 MG TAB PO PRN (20:42)
[2018-02-23 23:48] VITALS: BP 113/71; PULSE 63; TEMP 36.7; O2SAT 92
[2018-02-24 05:53] LABS: HEMATOCRIT 43.6 % (37-47); HEMOGLOBIN 14.3 g/dL (12.0-16.0); MEAN CELL VOLUME 89.5 fL (80-100); MEAN CORPUSCULAR HEMOGLOBIN 29.4 pg (25-34); MEAN CORPUSCULAR HGB CONC 32.8 g/dl (32-36); MEAN PLATELET VOLUME 9.4 fL (7.4-10.4); PLATELET COUNT 290 K/uL (130-400); RED CELL DISTRIBUTION WIDTH CV 14.4 % (11.5-14.5); RED CELL DISTRIBUTION WIDTH SD 46.7 fL (36.4-46.3); WHITE BLOOD COUNT 9.68 K/uL (4.8-10.8)
[2018-02-24] MEDS: HEPARIN SOD 5000 UNIT/0.5 ML CARP SQ SCH ×2 (06:34→13:31)
[2018-02-24 07:19] VITALS: BP 123/80; PULSE 66; TEMP 36.6; O2SAT 92
[2018-02-24 08:00] VITALS: O2SAT 92
[2018-02-24] MEDS ORDERED: DOCUSATE SODIUM 100 MG CAP PO SCH (08:00)
[2018-02-24] MEDS: AMLODIPINE BESYLATE 5 MG TAB PO SCH (08:08)
[2018-02-24] MEDS: ASPIRIN 81 MG ECTAB PO SCH (08:08)
[2018-02-24] MEDS: INSULIN ASPART 100 UNITS/ML 3 ML PEN SC SCH ×2 (08:10→13:31)
[2018-02-24] MEDS: INSULIN GLARGINE SOLOSTAR 100 UNITS/ML 3 ML PEN SC SCH (08:11)
[2018-02-24] MEDS: NSS + 20MEQ KCL 1000ML 1,000 ML IV SCH (10:03)
--- NOTE | 2018-02-24 11:17 | Progress Note ---
Internal Med Progress Note Date of Service: Feb 24, 2018. Provider Documentation: SUBJECTIVE: The patient was seen and examined in the telemetry unit Was admitted with back pain and chest pressure Noted to have UTI Complains hypogastric and back pain this morning No frequency Worried about the mediastinal mass OBJECTIVE: Vital Signs-as noted below Exam: General-no distress at rest Eyes-normal ENT-normal Neck-supple Lungs-clear to auscultate bilaterally Heart-regular, no murmur appreciated Abdomen-benign, soft, mildly tender hypogastrium and bilateral renal angles Extremities-no edema Neuro-, awake, awake and oriented 3 alert No focal neuro deficit appreciated Lab data as noted below. ASSESSMENT & PLAN: UTI:--E Coli Presented with dysuria, Inability to Urinate, B/L flank pain, Bladder pressure, abnormal UA Started on IV Rocephin and will continue IV fluids and encourage more oral fluid intake Urine culture-Sensitivity is pending Clinically worse today Advised more fluid intake and more ambulation Urinary Retention: Imaging studies no signs of obstruction Bladder Scan PRN, Straight Cath PRN Renal US-0unremarkable No acute problem Chest Pain: R/O ACS Risk factors: H/O CAD, DM II, Obesity Initial troponin:Negative and serial troponis -negative EKG shows: No signs of acute Ischemia Appreciate cardiology input No more chest pain Left Ovarian Cyst: Family H/O Ovarian Cancer Needs follow up with OBGYN as outpatient Left superior mediastinum Mass: Denies any respiratory symptoms No H/O smoking CT suggestive of possible nerve sheath tumor or pathologically enlarged lymph node. Patient is worried about the Mediastinal Mass-will ask Thoracic surgery opinion H/O CVA: Continue Aspirin, Statins DM II Will hold oral diabetic meds Last A1c:7.7 ISS, basal Insulin, Accu checks, Diabetic diet Blood sugar controlled Depression NBA: continue home meds H/O Thyroid cancer S/P resection Postsurgical hypothyroidism continue Levothyroxine check TSH HTN: Stable continue Home meds DVT Px: Heparin SQ Code Status: Full Code Transfer to Medical Floor Likely discharge this afternoon Vital Signs: Date Time Temp Pulse Resp B/P (MAP) Pulse Ox O2 Delivery O2 Flow Rate FiO2 02/24/18 07:19 36.6 66 18 123/80 (94) 92 Room Air 02/24/18 00:29 Room Air 02/23/18 23:48 36.7 63 18 113/71 (85) 92 Room Air 02/23/18 22:00 Room Air 02/23/18 16:11 36.5 63 18 132/81 (98) 96 Room Air 02/23/18 16:00 Room Air 02/23/18 15:29 38.0 67 18 124/73 (90) 95 Room Air 02/23/18 12:00 Room Air Lab Results: Results Past 24 Hours Test 02/23/18 16:47 02/23/18 20:01 02/24/18 05:24 02/24/18 07:45 Range/Units Bedside Glucose 263 246 231 70-90 mg/dl White Blood Count 9.68 4.8-10.8 K/uL Red Blood Count 4.87 4.2-5.4 M/uL Hemoglobin 14.3 12.0-16.0 g/dL Hematocrit 43.6 37-47 % Mean Corpuscular Volume 89.5 80-100 fL Mean Corpuscular Hemoglobin 29.4 25-34 pg Mean Corpuscular Hemoglobin Concent 32.8 32-36 g/dl RDW Standard Deviation 46.7 36.4-46.3 fL RDW Coefficient of Variation 14.4 11.5-14.5 % Platelet Count 290 130-400 K/uL Mean Platelet Volume 9.4 7.4-10.4 fL
[2018-02-24 15:17] VITALS: BP 122/72; PULSE 67; TEMP 36.8; O2SAT 94
--- NOTE | 2018-02-24 15:42 | Cardiology Follow-Up ---
Subjective General Date of Service: Feb 24, 2018. Chief Complaint: Follow-up, chest pain Pt evaluation today including: conversation w/ patient, physical exam History of Present Illness The patient is a 53 year old female seen in follow up . Patient feels well and is eager for discharge. Her dysuria is improved. Urine cultures revealed pansensitive E. coli. She has had an initial thoracic surgery evaluation by Ricky Cantu PA-C with whom I discuss her case by phone. She denies any chest discomfort with rest or with ambulation. She has been transferred off of telemetry and therefore there is no telemetry available for review. Allergies Coded Allergies: NO KNOWN DRUG ALLERGIES (Verified Allergy, Unknown, ., 05/04/17) Adhesives (Verified Adverse Reaction, Mild, TAPE-RASH, 02/21/18) Social History Smoking Status: Never Smoker Hx Tobacco Use In Past Year?: No Hx Alcohol Use - Type And Amou: No Hx Substance Use - Type And Am: No Problem List Medical Problems: (1) Ataxia Status: Acute (2) Back pain Status: Acute (3) Chest pain Status: Acute (4) Constipation Status: Acute (5) Contusion of multiple sites Status: Acute (6) Fall Status: Acute (7) Generalized weakness Status: Acute (8) Hyperglycemia Status: Acute (9) Mediastinal mass Status: Acute (10) UTI (urinary tract infection) Status: Acute (11) UTI (urinary tract infection) Status: Acute (12) UTI (urinary tract infection) Status: Acute Physical Exam Vital Signs Last Vital Signs Documentation Date Time Temp Pulse Resp B/P (MAP) Pulse Ox O2 Delivery O2 Flow Rate FiO2 02/24/18 15:17 36.8 67 20 122/72 (89) 94 Room Air Physical Exam Constitutional: Level of Distress: NAD Head: normocephalic Neck: supple Lungs: Auscultation: no wheezing, no rales/crackles, no rhonchi Cardiovascular: Heart Auscultation: RRR, normal S2, no rubs Extremities: no edema Neurologic: Gait & Station: pertinent finding (No focal neurologic deficits) Assessment and Plan Assessment and Plan Transthoracic echocardiogram performed 02/22/18 are reviewed and apparently by the undersigned: * -- Conclusions -- * The left ventricular wall motion is normal. * Left ventricular systolic function is normal. * The LV Ejection Fraction = 60-65%. * There is trace tricuspid regurgitation. * Grade I diastolic dysfunction, (abnormal relaxation pattern). Impression: 53-year-old female 1. Transient chest discomfort, perhaps angina induced in the setting of distress from underlying urinary tract infection. Cardiac enzymes negative. 2. E. coli UTI 3. 3.9 x 2.1 cm left superior mediastinal mass Plan: The patient is clinically improved with improvement in her dysuria symptoms and has had no additional chest discomfort. The patient has a long-standing history of diabetes and diabetes related coronary artery disease. She had ischemic dobutamine stress echocardiogram in 2016 which prompted cardiac catheterization revealing diffuse small vessel diabetic coronary heart disease for which medical management was recommended. She has tolerated an increase in her amlodipine from 2.5 mg daily to 5 mg daily. She remains on her same chronic metoprolol succinate dose. I plan no further evaluation in terms of her chest pain at this time. I believe she merely had a episode of angina that was exacerbated from her severe urinary discomfort. It is also somewhat difficult to distinguish between her urinary symptoms and angina given her chronic musculoskeletal back pain and rotator cuff pain. At any rate she is clinically improved now. She is stable from a cardiac perspective to undergo thoracic surgery for further investigation of her mediastinal mass. She will likely be discharged to complete therapy for her urinary tract infection and return to have this performed as an outpatient. The patient is eager for discharge, and I communicated to her that Dr Thornton plans to discharge her after Dr Benites has the opportunity to meet and examine and discuss her abnormal chest CT findings with her and discuss work up of this. Note: amlodipine dose was increased from 2.5 mg daily to 5 mg daily. Laboratory Results Last 24 Hours Test 02/23/18 16:47 02/23/18 20:01 02/24/18 05:24 02/24/18 07:45 Bedside Glucose 263 mg/dl 246 mg/dl 231 mg/dl White Blood Count 9.68 K/uL Red Blood Count 4.87 M/uL Hemoglobin 14.3 g/dL Hematocrit 43.6 % Mean Corpuscular Volume 89.5 fL Mean Corpuscular Hemoglobin 29.4 pg Mean Corpuscular Hemoglobin Concent 32.8 g/dl RDW Standard Deviation 46.7 fL RDW Coefficient of Variation 14.4 % Platelet Count 290 K/uL Mean Platelet Volume 9.4 fL Test 02/24/18 11:15 Bedside Glucose 227 mg/dl
[2018-02-24] MEDS ORDERED: CIPROFLOXACIN 500 MG TAB PO ONE (15:44)
[2018-02-24] MEDS ORDERED: CPR500 PO (15:49)
--- NOTE | 2018-02-24 15:51 | Discharge Instructions ---
Discharge Instructions Date of Service Feb 24, 2018. Admission Reason for Admission: Chest Pain, Mediastinal Mass,Uti Discharge Discharge Diagnosis / Problem: UTI,Chest pain-no ACS,Medistinal mass Discharge Goals Goal(s): Prevent Disease Progression Activity Recommendations Activity Limitations: resume your previous activity . Instructions / Follow-Up Instructions / Follow-Up DR Mccoy on 03/01/18 at 11:45AM.Please keep appointment with Dr Benites Current Hospital Diet Patient's current hospital diet: AHA Diet (Heart Healthy), Diabetes Type 2 Diet Discharge Diet Recommended Diet: AHA Diet (Heart Healthy), Diabetes Type 2 Diet Pending Studies Studies pending at discharge: no Laboratory Results Hemoglobin A1c Test 02/22/18 04:19 Range/Units Estimated Average Glucose 209 mg/dl Hemoglobin A1c 8.9 H 4.5-5.6 % Lipid Panel Test 02/22/18 04:19 Range/Units Triglycerides Level 130 0-150 mg/dl Cholesterol Level 115 0-200 mg/dl HDL Cholesterol 46 mg/dl Cholesterol/HDL Ratio 2.5 LDL Cholesterol, Calculated 43 mg/dl Medical Emergencies . Who to Call and When: Medical Emergencies: If at any time you feel your situation is an emergency, please call 911 immediately. . Non-Emergent Contact Non-Emergency issues call your: Primary Care Provider . Past History Medical & Surgical History: (1) UTI (urinary tract infection) (2) Chest pain (3) History of thyroid cancer (4) Postsurgical hypothyroidism (5) Diabetes mellitus, type II (6) Mediastinal mass (7) Status post cholecystectomy (8) Status post thyroidectomy (9) Status post excision enchondroma left femur . "Provider Documentation" section prepared by Richi Thornton. .
[2018-02-24 16:00] VITALS: O2SAT 92
[2018-02-24] MEDS ORDERED: CEPH500C2 PO (16:01)
[2018-02-24 16:16] VITALS: BP 122/72; PULSE 67; TEMP 36.8; O2SAT 94
[2018-02-24] MEDS ORDERED: CEPHALEXIN MONOHYDRATE 500 MG CAP PO SCH (16:30)
--- NOTE | 2018-02-24 17:27 | Discharge Summary ---
Discharge Summary Date of Service Feb 24, 2018. Discharge Summary Admission Date: Feb 21, 2018 at 20:00 Discharge Date: Feb 24, 2018 Discharge Disposition: Home Principal Diagnosis: UTI,Chest pain-no ACS,Medistinal mass Secondary Diagnoses/Problems: Please see H&P and Hospital progress note Consultations: Cardiology and Thoracic surgeon Medication Reconciliation New Medications: Cephalexin Monohydrate (Keflex) 500 Mg Cap 500 MG PO BID, #10 CAP Continued Medications: Amlodipine Besylate (Norvasc) 2.5 Mg Tab 5 MG PO HS Aspirin (Aspirin Ec) 81 Mg Tab 81 MG PO QAM Atorvastatin (Lipitor) 80 Mg Tab 80 MG PO HS Canagliflozin (Invokana) 100 Mg Tab 100 MG PO QAM Escitalopram Oxalate (Escitalopram Oxalate) 20 Mg Tab 20 MG PO HS Insulin Human Isophan/Regular (Humulin 70/30) Inj 50 UNITS SC BID Levothyroxine Sodium (Levothyroxine Sodium) 175 Mcg Tab 175 MCG PO HS Lorazepam (Ativan) 1 Mg Tab 2 MG PO HS Metformin Hcl (Glucophage) 1,000 Mg Tab 1000 MG PO BID, TAB Metoprolol Succinate (Metoprolol Succinate ER) 25 Mg Tabcr 25 MG PO HS Omeprazole (Prilosec) 20 Mg Cap 20 MG PO HS Admission Information HPI (per Admitting provider): Patient is a 53-year-old female with past medical history of CAD, CVA, DM II, depression, history of thyroid cancer S/P resection, postsurgical hypothyroidism , NBA, HTN and other problems presents with history of Persistent B/L flank pain and chest heaviness which started this morning. Patient describes the chest pain as heaviness, intermittent, nonradiating, 3/10 intensity which improves with pain medications. Denies any aggravating factors or associated nausea, dizziness, diaphoresis, cough, orthopnea, pedal edema, shortness of breath, fever and chills. She states flank pain is B/L which radiates across her abdomen which is associated with inability to urinate and suprapubic pressure. Also reports associated dysuria but denies any history of hematuria, constipation, fever or chills, nausea, vomiting, diarrhea. Patient required straight cath while in ED to help urinate. She had multiple UTIs in the past, last was in November. She was on Amox, Cipro previously. Denies any H/O urological procedures. Past Medical/Surgical History Medical Problems: (1) Anxiety (2) Ataxia (3) Back pain (4) Constipation (5) Contusion of multiple sites (6) Diabetes mellitus, type II (7) Fall (8) Generalized weakness (9) History enchondroma of left femur (10) History of thyroid cancer (11) History of toxic multinodular goiter (12) Hyperglycemia (13) Obsessive compulsive disorder (14) Postsurgical hypothyroidism (15) UTI (urinary tract infection) (16) UTI (urinary tract infection) Surgical Problems: (1) Status post cholecystectomy (2) Status post excision enchondroma left femur (3) Status post thyroidectomy Family History Diabetes mellitus BROTHER BROTHER Myocardial infarction FATHER Ovarian cancer MOTHER Social History Smoking Status: Never Smoker Alcohol Use: none Drug Use: none Marital Status: single Housing status: lives with significant other Occupational Status: unemployed, disabled Immunizations History of Influenza Vaccine: No History of Tetanus Vaccine?: No Tetanus Immunization Date: Feb 06, 2009 History of Pneumococcal: No History of Hepatitis B Vaccine: Unknown Allergies Coded Allergies: NO KNOWN DRUG ALLERGIES (Verified Allergy, Unknown, ., 05/04/17) Adhesives (Verified Adverse Reaction, Mild, TAPE-RASH, 02/21/18) Home Medications Scheduled Amlodipine Besylate (Norvasc), 2.5 MG PO HS Aspirin (Aspirin Ec), 81 MG PO QAM Atorvastatin (Lipitor), 80 MG PO HS Canagliflozin (Invokana), 100 MG PO QAM Escitalopram Oxalate (Escitalopram Oxalate), 20 MG PO HS Insulin Human Isophan/Regular (Humulin 70/30), 50 UNITS SC BID Levothyroxine Sodium (Levothyroxine Sodium), 175 MCG PO HS Lorazepam (Ativan), 2 MG PO HS Metformin Hcl (Glucophage), 1,000 MG PO BID Metoprolol Succinate (Metoprolol Succinate ER), 25 MG PO HS Omeprazole (Prilosec), 20 MG PO HS Review of Systems See HPI for pertinent positives & negatives. A total of 10 systems reviewed and were otherwise negative. Physical Exam H&P v2 Physical Exam Vital Signs Date Time Temp Pulse Resp B/P (MAP) Pulse Ox O2 Delivery O2 Flow Rate FiO2 02/21/18 17:46 69 16 127/74 98 Room Air 02/21/18 17:01 98 Room Air 02/21/18 17:01 98 Room Air 02/21/18 16:31 70 02/21/18 15:56 36.7 71 20 143/84 98 Room Air 02/21/18 15:54 98 Room Air General Appearance: WD/WN, no apparent distress Head: normocephalic, atraumatic Eyes: normal inspection, PERRL, EOMI, sclerae normal ENT: normal ENT inspection, hearing grossly normal Neck: supple, trachea midline Respiratory/Chest: chest non-tender, lungs clear, normal breath sounds, no respiratory distress, no accessory muscle use Cardiovascular: regular rate, rhythm, no edema, no murmur Abdomen/GI: normal bowel sounds, soft, + tenderness (B/L flank region) Back: normal inspection Extremities/Musculoskelatal: normal inspection, no pedal edema Neurologic/Psych: school 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 II-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 nml as tested, no motor/sensory deficits, alert, normal mood/affect, oriented x 3 Skin: normal color, warm/dry Diagnostics H&P v2 Diagnostics Laboratory Results Results Past 24 Hours Test 02/21/18 00:00 02/21/18 16:20 Range/Units Urine Color YELLOW Urine Appearance CLOUDY CLEAR Urine pH 5.0 4.5-7.5 Urine Specific [place] 1.019 1.000-1.030 Urine Protein NEG NEG Urine Glucose (UA) 3+ NEG Urine Ketones NEG NEG Urine Occult Blood TRACE NEG Urine Nitrite POS NEG Urine Bilirubin NEG NEG Urine Urobilinogen NEG NEG Urine Leukocyte Esterase MODERATE NEG Urine WBC (Auto) >30 0-5 /hpf Urine RBC (Auto) 0-4 0-4 /hpf Urine Hyaline Casts (Auto) 0 0-5 /lpf Urine Epithelial Cells (Auto) >30 0-5 /lpf Urine Bacteria (Auto) 4+ NEG Urine Pathogenic Casts 0 /lpf White Blood Count 10.35 4.8-10.8 K/uL Red Blood Count 5.08 4.2-5.4 M/uL Hemoglobin 14.7 12.0-16.0 g/dL Hematocrit 44.9 37-47 % Mean Corpuscular Volume 88.4 80-100 fL Mean Corpuscular Hemoglobin 28.9 25-34 pg Mean Corpuscular Hemoglobin Concent 32.7 32-36 g/dl Platelet Count 299 130-400 K/uL Mean Platelet Volume 9.7 7.4-10.4 fL Neutrophils (%) (Auto) 52.7 % Lymphocytes (%) (Auto) 32.2 % Monocytes (%) (Auto) 9.6 % Eosinophils (%) (Auto) 4.3 % Basophils (%) (Auto) 0.7 % Neutrophils # (Auto) 5.46 1.4-6.5 K/uL Lymphocytes # (Auto) 3.33 1.2-3.4 K/uL Monocytes # (Auto) 0.99 0.11-0.59 K/uL Eosinophils # (Auto) 0.45 0-0.5 K/uL Basophils # (Auto) 0.07 0-0.2 K/uL RDW Standard Deviation 46.5 36.4-46.3 fL RDW Coefficient of Variation 14.3 11.5-14.5 % Immature Granulocyte % (Auto) 0.5 % Immature Granulocyte # (Auto) 0.05 0.00-0.02 K/uL Prothrombin Time 10.1 9.0-12.0 SECONDS Prothromb Time International Ratio 1.0 0.9-1.1 Activated Partial Thromboplast Time 26.9 21.0-31.0 SECONDS Partial Thromboplastin Ratio 1.0 Sodium Level 137 136-145 mmol/L Potassium Level 3.5 3.5-5.1 mmol/L Chloride Level 103 98-107 mmol/L Carbon Dioxide Level 29 21-32 mmol/L Anion Gap 5.0 3-11 mmol/L Blood Urea Nitrogen 13 7-18 mg/dl Creatinine 0.74 0.60-1.20 mg/dl Est Creatinine Clear Calc Drug Dose 105.8 ml/min Estimated GFR () 105.7 Estimated GFR (Non- 91.2 BUN/Creatinine Ratio 17.9 10-20 Random Glucose 95 70-99 mg/dl Calcium Level 8.1 8.5-10.1 mg/dl Total Bilirubin 0.7 0.2-1 mg/dl Direct Bilirubin 0.1 0-0.2 mg/dl Aspartate Amino Transf (AST/SGOT) 17 15-37 U/L Alanine Aminotransferase (ALT/SGPT) 26 12-78 U/L Alkaline Phosphatase 85 45-117 U/L Total Creatine Kinase 186 26-192 U/L Creatine Kinase MB 2.8 0.5-3.6 ng/ml Creatine Kinase MB Ratio 1.5 0-3.0 Troponin I < 0.015 0-0.045 ng/ml Total Protein 7.8 6.4-8.2 gm/dl Albumin 3.5 3.4-5.0 gm/dl Lipase 148 73-393 U/L Human Chorionic Gonadotropin, Qual NEG NEG Diagnostic Radiology CT ABD: 1. Bladder wall thickening could indicate cystitis. Correlate with urinalysis. No hydronephrosis or nephrolithiasis. 2. 1.9 cm suspected cyst in the left ovary. This is probably benign. No further follow-up is necessary in this perimenopausal female per the [employer] incidental findings committee recommendations. CT Chest: 1. 3.9 x 2.1 cm mass at the left superior mediastinum. Differential considerations include a nerve sheath tumor or, less likely, pathologically enlarged lymph node. 2. No acute intrathoracic pathology. The report will be called/faxed according to standard departmental protocol. CXR: 1. Subpleural left paramediastinal apical opacity increased in size from prior exam. This may represent mass effect on the left apex from an adjacent structure. Further evaluation with chest CT to be considered. 2. Mildly low lung volumes with hypoventilatory changes. No convincing evidence of acute cardiopulmonary disease. The report will be called/faxed according to standard departmental protocol. Renal USD: Unremarkable sonographic exam of the kidneys and urinary bladder. No renal calculi or hydronephrosis. EKG EKG: NSR, RBBB, Non specific T wave changes Impression H&P v2 Impression Assessment and Plan UTI: Presented with dysuria, Inability to Urinate, B/L flank pain, Bladder pressure, abnormal UA No signs of sepsis Start IV Rocephin IV fluids Check Urine culture Urinary Retention: Imaging studies no signs of obstruction Bladder Scan PRN, Straight Cath PRN Will consider Urology if no resolution Chest Pain: R/O ACS Risk factors: H/O CAD, DM II, Obesity Initial troponin:Negative EKG shows: No signs of acute Ischemia CXR:No convincing evidence of acute cardiopulmonary disease. Trend serial cardiac enzymes, repeat EKG, fasting lipid panel in AM Continue Aspirin, statins Oxygen PRN NPO after midnight Cardiology consulted Left Ovarian Cyst: Family H/O Ovarian Cancer Needs follow up with OBGYN as outpatient Left superior mediastinum Mass: Denies any respiratory symptoms No H/O smoking CT suggestive of possible nerve sheath tumor or pathologically enlarged lymph node. Needs work up as outpatient H/O CVA: Continue Aspirin, Statins DM II Will hold oral diabetic meds Last A1c:7.7 ISS, basal Insulin, Accu checks, Diabetic diet Depression NBA: continue home meds H/O Thyroid cancer S/P resection Postsurgical hypothyroidism continue Levothyroxine check TSH HTN: Stable continue Home meds DVT Px: Heparin SQ Code Status: Full Code Resuscitation Status VTE Prophylaxis Will order VTE Prophylaxis: Yes Physical Exam (per Admitting): General Appearance: WD/WN, no apparent distress Head: normocephalic, atraumatic Eyes: normal inspection, PERRL, EOMI, sclerae normal ENT: normal ENT inspection, hearing grossly normal Neck: supple, trachea midline Respiratory/Chest: chest non-tender, lungs clear, normal breath sounds, no respiratory distress, no accessory muscle use Cardiovascular: regular rate, rhythm, no edema, no murmur Abdomen/GI: normal bowel sounds, soft, + tenderness (B/L flank region) Back: normal inspection Extremities/Musculoskelatal: normal inspection, no pedal edema Neurologic/Psych: school counsellor II-XII nml as tested, no motor/sensory deficits, alert , normal mood/affect, oriented x 3 Skin: normal color, warm/dry Hospital Course UTI:--E Coli Presented with dysuria, Inability to Urinate, B/L flank pain, Bladder pressure, abnormal UA Started on IV Rocephin and will continue IV fluids and encourage more oral fluid intake Urine culture-Sensitivity is pending Clinically worse today Advised more fluid intake and more ambulation Urinary Retention: Imaging studies no signs of obstruction Bladder Scan PRN, Straight Cath PRN Renal US-0unremarkable No acute problem Chest Pain: R/O ACS Risk factors: H/O CAD, DM II, Obesity Initial troponin:Negative and serial troponis -negative EKG shows: No signs of acute Ischemia Appreciate cardiology input No more chest pain Left Ovarian Cyst: Family H/O Ovarian Cancer Needs follow up with OBGYN as outpatient Left superior mediastinum Mass: Denies any respiratory symptoms No H/O smoking CT suggestive of possible nerve sheath tumor or pathologically enlarged lymph node. Patient is worried about the Mediastinal Mass-will ask Thoracic surgery opinion H/O CVA: Continue Aspirin, Statins DM II Will hold oral diabetic meds Last A1c:7.7 ISS, basal Insulin, Accu checks, Diabetic diet Blood sugar controlled Depression NBA: continue home meds H/O Thyroid cancer S/P resection Postsurgical hypothyroidism continue Levothyroxine check TSH HTN: Stable continue Home meds DVT Px: Heparin SQ Code Status: Full Code Transfer to Medical Floor Likely discharge this afternoon Total time spent on discharge = 35 minutes This includes examination of the patient, discharge planning, medication reconciliation, and communication with other providers. Discharge Instructions Date of Service Feb 24, 2018. Admission Reason for Admission: Chest Pain, Mediastinal Mass,Uti Discharge Discharge Diagnosis / Problem: UTI,Chest pain-no ACS,Medistinal mass Discharge Goals Goal(s): Prevent Disease Progression Activity Recommendations Activity Limitations: resume your previous activity . Instructions / Follow-Up Instructions / Follow-Up DR Mccoy on 03/01/18 at 11:45AM.Please keep appointment with Dr Benites Current Hospital Diet Patient's current hospital diet: AHA Diet (Heart Healthy), Diabetes Type 2 Diet Discharge Diet Recommended Diet: AHA Diet (Heart Healthy), Diabetes Type 2 Diet Pending Studies Studies pending at discharge: no Laboratory Results Hemoglobin A1c Test 02/22/18 04:19 Range/Units Estimated Average Glucose 209 mg/dl Hemoglobin A1c 8.9 H 4.5-5.6 % Lipid Panel Test 02/22/18 04:19 Range/Units Triglycerides Level 130 0-150 mg/dl Cholesterol Level 115 0-200 mg/dl HDL Cholesterol 46 mg/dl Cholesterol/HDL Ratio 2.5 LDL Cholesterol, Calculated 43 mg/dl Medical Emergencies . Who to Call and When: Medical Emergencies: If at any time you feel your situation is an emergency, please call 911 immediately. . Non-Emergent Contact Non-Emergency issues call your: Primary Care Provider . Past History Medical & Surgical History: (1) UTI (urinary tract infection) (2) Chest pain (3) History of thyroid cancer (4) Postsurgical hypothyroidism (5) Diabetes mellitus, type II (6) Mediastinal mass (7) Status post cholecystectomy (8) Status post thyroidectomy (9) Status post excision enchondroma left femur . "Provider Documentation" section prepared by Richi Thornton. . <Electronically signed by Richi Thornton M.D.> Signed: 02/24/18 [id number] Additional Copies To Oralia Mccoy M.D.
--- NOTE | 2018-02-24 18:05 | SURGICAL CONSULTATION ---
DATE OF CONSULTATION: 02/24/2018 REASON FOR CONSULTATION: Left paramediastinal mass. HISTORY OF PRESENT ILLNESS: This 53-year-old with history of coronary artery disease who presented to the hospital with chest discomfort. Amrit Orozco normally follows her from cardiology. She actually had right flank pain and had a urinary tract infection. This was an E. coli which was pansensitive. She stated that she "quit urinating" which is why she came in to the hospital. She was admitted to the hospitalist service and the chest heaviness was associated with her flank pain. She had suprapubic pressure and some dysuria before she stopped urinating. She was on amoxicillin, Cipro in the recent past. She does have a history of urinary tract infections, although does not remember one quite this bad. I was asked to evaluate her when a CT was done of her chest to evaluate her heaviness and she was found to have a paramediastinal mass in her upper left chest. I was asked to evaluate her from a surgical and diagnostic standpoint. Upon further questioning, the patient actually has some radicular type symptoms going down her left arm with paresthesias. She does not really have weakness. She also complains of severe pain between her scapulae on both sides but does not favor either side. This sounds neurogenic also. She underwent an x-ray, did not see any abnormalities, but this has been ongoing. PAST MEDICAL HISTORY: 1. Coronary artery disease. 2. Thyroid carcinoma. 3. Endochondroma, left femur. 4. Multinodular goiter. 5. Hyperglycemia. 6. Obsessive compulsive disorder. 7. Urinary tract infection. 8. Anxiety. 9. Repeated urinary tract infections. PAST SURGICAL HISTORY: 1. 2, para 2. 2. Thyroidectomy. 3. Excision of endochondroma, left femur. 4. Cholecystectomy. MEDICATIONS: (at home): 1. Prilosec. 2. Aspirin. 3. Metoprolol. 4. Norvasc. 5. Metformin. 6. Invokana. 7. Escitalopram. 8. Humulin sodium. 9. Synthroid. 10. Ativan. 11. Amlodipine. ALLERGIES: No known drug allergies. SOCIAL HISTORY: The patient is originally from [place]. She has never smoked cigarettes. She does not use alcohol. She lives with her . Her first is . She has 2 children, 1 in the in [place], [place] and a daughter who lives in [place]. FAMILY MEDICAL HISTORY: The patient's mother had ovarian cancer. Father had coronary artery disease and myocardial infarctions. She has 2 brothers with diabetes mellitus. Two children are healthy. REVIEW OF SYSTEMS: The patient's symptoms came on rather suddenly and these are much improved with the antibiotics. The pain she had in her chest was not associated with any arrhythmias or palpitations. She had no nausea, vomiting, diaphoresis. She felt a bit feverish. She has been a bit short of breath. She denies hematuria or constipation. She has had no fever or chills. She denied nausea, vomiting or diarrhea. The patient has had no skin breakdown. She has had no real peripheral edema. She denies any neurologic symptoms such as amaurosis fugax, transient ischemic attack. The patient denied change in her vision or her hearing. She denied throat pain. PHYSICAL EXAMINATION: GENERAL: This is a 5 feet 9 inch, 210 pound female who is awake, alert and oriented. HEENT: Her extraocular movements are intact. Her pupils are equally round and reactive. Her sclerae are anicteric. Her sclerae are a bit pale. Her tongue is midline. NECK: Supple. I detect no obvious lymphadenopathy, neck vein distention, or tracheal deviation. I could palpate no axillary adenopathy. LUNGS: Actually clear. She has no costovertebral artery tenderness today. ABDOMEN: A bit protuberant, soft, nontender with no chills. EXTREMITIES: She has excellent peripheral pulses. She has no joint effusions. She has no peripheral edema. NEUROLOGIC: She is completely awake, alert and oriented with no focal deficits. DATA: I reviewed her CT scan with radiology. She is going to be discharged and I am going to see her back in the office to make sure she has recovered well from her urinary tract infection. I am going to also do an MRI of her cervical and upper thoracic spine. I believe she is going to require surgical excision. I also think this is probably a neurogenic or a neural sheath tumor. ROB
[2018-02-24] MEDS ORDERED: CIPROFLOXACIN 500 MG TAB PO SCH (20:00)
== END 2018-02-24 16:45 | disposition home or self-care (01) | DRG 689 ==
LOC: C.EDB 15:43 → C.2T 20:00 → ENRESERV 20:06 → C.MS4W 02-23 16:02
PROVIDERS: ADMIT Internal Medicine; ATTEND Internal Medicine
DX: N39.0 Urinary tract infection, site not specified (principal); J98.59 Other diseases of mediastinum, not elsewhere classified; B96.20 Unspecified Escherichia coli [E. coli] as the cause of diseases classified elsewhere; R33.9 Retention of urine, unspecified; E11.59 Type 2 diabetes mellitus with other circulatory complications; I25.10 Atherosclerotic heart disease of native coronary artery without angina pectoris; I10 Essential (primary) hypertension; I25.2 Old myocardial infarction; F32.9 Major depressive disorder, single episode, unspecified; F41.1 Generalized anxiety disorder; E89.0 Postprocedural hypothyroidism; E66.9 Obesity, unspecified; Z79.2 Long term (current) use of antibiotics; Z79.4 Long term (current) use of insulin; Z79.82 Long term (current) use of aspirin; Z79.84 Long term (current) use of oral hypoglycemic drugs; Z79.899 Other long term (current) drug therapy; Z85.850 Personal history of malignant neoplasm of thyroid; Z86.73 Personal history of transient ischemic attack (TIA), and cerebral infarction without residual deficits; Z80.41 Family history of malignant neoplasm of ovary; Z83.3 Family history of diabetes mellitus; Z68.31 Body mass index [BMI] 31.0-31.9, adult

== ENCOUNTER → 2018-03-02 | Outpatient (CLI) | payer OTHER ==
[~2018-03-02] MED LIST changes: +ATV/1 PO; +CEPH500C2 PO; +CLB/200 PO; -DICY20TA10 PO; +GADAVIST IV PRN; -KFL500 PO; +VALA500T60 PO
--- NOTE | 2018-03-02 16:24 | DIAGNOSTIC IMAGING REPORT ---
MRI CERVICAL SPINE COMBO CLINICAL HISTORY: SCHWANNOMA TECHNIQUE: Sagittal and axial T1, T2 and STIR images were obtained. COMPARISON STUDY: Chest CT dated 02/21/2018 There are no suspicious areas of marrow replacement. No intrinsic cervical cord lesions are visualized. C2-3: There is no evidence of disc bulge or focal herniation. There is no spinal or foraminal stenosis. C3-4: There is suspected calcification of the posterior longitudinal ligament. There is minimal mass effect on the anterior thecal sac. There is no significant spinal or foraminal stenosis C4-5: There is suspected calcification of posterior longitudinal ligament. There is no significant spinal or foraminal stenosis C5-6 :There is suspected calcification of posterior longitudinal ligament. There is no significant spinal or foraminal stenosis C6-7: There is a small to moderate left posterior lateral disc protrusion. There is thecal sac deformity. C7-T1: There is no evidence of disc bulge or focal herniation. There is no evidence of spinal or foraminal stenosis. At the T1-2 level, there is a circumscribed intensely enhancing left paravertebral mass measuring 39, by 27, x 40 mm. This contains small nodular foci of decreased signal on both axial T2 merge images, as well as on the postcontrast images. On sagittal images, the mass extends into the T1-2 normal foramen. Likely diagnostic considerations include a neurogenic tumor, or thyroid neoplasm. IMPRESSION: 1. 39 x 27 x 40 mm intensely enhancing left paravertebral mass at the T1-2 level. Likely diagnostic considerations include a neurogenic tumor, or thyroid neoplasm in this patient with a history of bilateral thyroidectomy 2. Small to moderate left posterior lateral disc protrusion at the C6-7 level. Electronically signed by: Olu Agosto M.D. 03/02/2018 4:23 PM Dictated Date/Time: 03/02/2018 4:05 PM
== END | disposition home or self-care (01) ==
LOC: C.MRIBC 14:50
PROVIDERS: ATTEND Surgery
DX: D36.10 Benign neoplasm of peripheral nerves and autonomic nervous system, unspecified (principal)

== ENCOUNTER 2018-03-16 05:27 | Inpatient (IN) | payer OTHER ==
[2018-03-08 12:11] VITALS: BMI 32.0
[2018-03-16] VITALS (10 sets, daily range): BP systolic 107–125; BP diastolic 53–77; PULSE 63–78; TEMP 36.5–36.9; O2SAT 90–97; Ht 172.7 cm; Wt 95.5 kg
[~2018-03-16] VITALS: Ht 172.7 cm; Wt 95.5 kg
[~2018-03-16 05:27] MED LIST changes: -CEPH500C2 PO; -GADAVIST IV PRN
[2018-03-16] MEDS ORDERED: LACTATED RINGER'S 1000ML 1,000 ML IV SCH (06:00)
--- NOTE | 2018-03-16 06:39 | History & Physical Bridge Note ---
H&P Re-Evaluation Bridge Note: I have examined the patient, reviewed the History & Physical and in the interval since the performance of the History & Physical I have noted the following changes of clinical significance: No changes noted
[2018-03-16] MEDS ORDERED: MIDAZOLAM HCL 1 MG/ML 2ML VIAL ONE (06:54)
[2018-03-16] MEDS ORDERED: FENTANYL CITRATE INJ 50 MCG/1 ML 2 ML VIAL ONE ×2 (06:55)
[2018-03-16] MEDS ORDERED: LIDOCAINE HCL 2% JELLY 30 ML TUBE ONE (07:00)
[2018-03-16] MEDS ORDERED: KETOROLAC TROMETHAMINE 30 MG/ML VIAL IV. PRN (07:30)
[2018-03-16] MEDS ORDERED: ONDANSETRON INJ 2 MG/ML 2 ML VIAL IV PRN ×2 (07:30→10:45)
[2018-03-16] MEDS ORDERED: ATROPINE SULFATE 0.1 MG/ML 5ML SYR IV PRN (07:30)
[2018-03-16] MEDS ORDERED: LABETALOL HCL IV 5 MG/ML 20ML IV PRN (07:30)
[2018-03-16] MEDS ORDERED: BUPIVACAINE 0.5 % 5 MG/1 ML MPF 30ML VIAL ONE (07:32)
[2018-03-16] MEDS ORDERED: SODIUM CHLORIDE 0.9% PF 50 ML VIAL ONE ×2 (07:32)
[2018-03-16] MEDS ORDERED: BUPIVACAINE LIPOSOME 1/3% 266 MG/20 ML VIAL ONE (07:32)
[2018-03-16] MEDS ORDERED: EpHEDrine SULFATE 50MG/5ML SYR ONE (09:24)
[2018-03-16] MEDS ORDERED: PROPOFOL IV EMULSION 10 MG/ML 20 ML VIAL ONE (09:24)
[2018-03-16] MEDS ORDERED: LIDOCAINE HCL 2% 2 ML VIAL (20MG/ML) ONE (09:24)
[2018-03-16] MEDS ORDERED: ROCURONIUM BROMIDE 10 MG/ML 5 ML VIAL ONE (09:24)
[2018-03-16] MEDS ORDERED: ONDANSETRON INJ 2 MG/ML 2 ML VIAL ONE (09:24)
[2018-03-16] MEDS ORDERED: CEFAZOLIN SOD 1 GM VIAL ONE (09:24)
[2018-03-16] MEDS ORDERED: PHENYLEPHRINE HCL INJ 10 MG/ML VIAL ONE (10:07)
[2018-03-16] MEDS ORDERED: GLYCOPYRROLATE INJ 0.2 MG/ML VIAL ONE (10:07)
[2018-03-16] MEDS ORDERED: NEOSTIGMINE METHYLSULFATE 5 MG/5 ML SYR ONE (10:07)
[2018-03-16] MEDS ORDERED: TISSEEL FIBRIN SEALANT 4ML TOP ONE (10:11)
--- NOTE | 2018-03-16 10:27 | [facility] Post Operative Brief Note ---
Immediate Operative Summary Operative Date March 16, 2018. Pre-Operative Diagnosis Left upper paraspinal mass Post-Operative Diagnosis Schwannoma Procedure(s) Performed Robotic Assisted Left Video Thoracoscopy with Excision of Neurogenic Tumor Surgeon Dr Benites Track Patrol Surgeon(s) Ricky Cantu PA-C Estimated Blood Loss 10ML Findings Consistent with Post-Op Diagnosis Specimens Frozen section #1 Left upper paraspinal mass sent out at [address] Benites of results A. Schwannoma Anesthesia Type General
[2018-03-16] MEDS ORDERED: METOCLOPRAMIDE HCL INJ 5 MG/ML 2 ML VIAL IV. STA (10:36)
[2018-03-16] MEDS ORDERED: MoRPHine SULFATE 4 MG/ML 1 ML CARP\\VIAL IV PRN (10:45)
[2018-03-16] MEDS: HYDROmorphone INJ 2 MG/ML SYR/VIAL IV PRN ×4 (11:10→11:32)
[2018-03-16] MEDS ORDERED: METOCLOPRAMIDE HCL INJ 5 MG/ML 2 ML VIAL ONE (11:14)
--- NOTE | 2018-03-16 11:33 | DIAGNOSTIC IMAGING REPORT ---
CHEST ONE VIEW PORTABLE HISTORY: Postop. Mediastinal mass excision. COMPARISON: Chest 02/21/2018. FINDINGS: There are low lung volumes. Tiny left apical pneumothorax with a maximal pleural gap of 4 mm. There is a left-sided chest tube terminating in the left lung apex. Trace left chest wall subcutaneous emphysema. Surgical clips within the left axilla. The heart remains mildly enlarged. Linear densities at the left lung base. Cholecystectomy. There is superior mediastinal widening which has progressed. IMPRESSION: 1. Tiny left apical pneumothorax. The left chest tube terminates in the left lung apex. 2. Superior mediastinal widening. This could be related to the recent postoperative change. Follow-up is recommended to ensure stability/resolution and to exclude the possibility of a mediastinal hematoma. Electronically signed by: Elgin Mccoy M.D. 03/16/2018 11:31 AM Dictated Date/Time: 03/16/2018 11:27 AM
--- NOTE | 2018-03-16 12:14 | Anesthesiology Progress Note ---
Anesthesia Post Op Note Date & Time March 16, 2018 at 12:14 Vital Signs Pain Intensity: 4 Vital Signs Past 12 Hours Date Time Temp Pulse Resp B/P (MAP) Pulse Ox O2 Delivery O2 Flow Rate FiO2 03/16/18 11:50 37.0 63 11 112/74 96 Nasal Cannula 2 03/16/18 11:40 62 12 119/64 97 Nasal Cannula 2 03/16/18 11:30 58 12 119/67 96 Nasal Cannula 2 03/16/18 11:20 60 15 125/74 99 Nasal Cannula 2 03/16/18 11:10 56 15 114/70 100 Oxymask 10 03/16/18 11:00 56 11 124/76 99 Oxymask 10 03/16/18 10:50 36.0 54 18 105/64 100 Oxymask 10 03/16/18 06:06 36.5 63 20 125/77 97 Room Air Notes Mental Status: alert / awake / arousable, participated in evaluation Pt Amnestic to Procedure: Yes Nausea / Vomiting: adequately controlled Pain: adequately controlled Airway Patency, RR, SpO2: stable & adequate BP & HR: stable & adequate Hydration State: stable & adequate Anesthetic Complications: no major complications apparent
[2018-03-16] MEDS: SODIUM CHLORIDE 0.9% 1000ML 1,000 ML IV SCH (13:04)
--- NOTE | 2018-03-16 13:09 | OPERATIVE REPORT ---
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 POSTOPERATIVE DIAGNOSIS: Schwannoma T1-T2. PROCEDURE: Robot-assisted thoracoscopic excision of schwannoma T1 and T2. SURGEON: Nilton Benites MD HUMAN RESOURCES SPECIALIST: RALEIGH Lopez. (Mr. Cantu was present for the entire case. He was at the patient's bedside while I was at the console). ANESTHESIA: General anesthesia with endotracheal intubation with a double lumen tube. SPECIFICS OF PROCEDURE AND FINDINGS: This is a very nice 53-year-old female who has multiple issues who presented to the hospital last month and a CT scan was obtained of her abdomen. She actually presented with a urinary tract infection. A CT scan was performed and the mass was noted. She has very little in the way of symptoms. We had a long discussion about this and elected to proceed with resection. On 03/16/2018, the patient underwent an uncomplicated resection of this mass. We had excellent visualization. We identified the subclavian and the vertebral artery and care was taken to avoid injury to this. She had no air leak and no bleeding with this. She tolerated it quite well. DESCRIPTION OF PROCEDURE: Patient brought to operating room and placed in supine position. General anesthesia induced and draped the patient following double lumen tube. She was placed in right lateral decubitus position and the left chest was prepped and draped in usual sterile fashion. Ports were placed through the 8th interspace. A 12 mm camera port, two 8-mm ports were placed on either side of this, 1 anterior and 1 posterior and then the most posteriorly 5 mm port were placed. Upon entering, we see there were no adhesions. Carbon dioxide was infused. I put an assistant infant teacher's port 12 mm anteriorly. We had excellent visualization and we were able to open the pleura with bipolar. There was actually a nice capsule around this; however, it unfortunately ruptured and we carefully removed all of the contents and placed it in an Endobag for removal. This actually facilitated the procedure. We dissected off the arteries and we got this very nicely. Clips were left in 2 areas. I went to remove this in its entirety. Irrigated this out. Frozen section showed a schwannoma. 266 mg of Exparel mixed with 30 mL of bupivacaine and 150 mL of normal saline then used to inject the interspaces for intercostal block well as the incisions. A 20-Cymraes chest tube was left towards the apex through the anterior port and sutured in place. All the ports were closed with 4-0 Monocryl in running continuous fashion. The 2 larger ports were closed with 0 Vicryl for the muscle layers. She tolerated it well with no air leak. I attest to the content of the Intraoperative Record and any orders documented therein. Any exception s are noted below.
[2018-03-16] MEDS ORDERED: CARBOHYDRATES FOR HYPOGLYCEMIA PO PRN (13:15)
[2018-03-16] MEDS ORDERED: GLUCOSE 40% GEL 15 GM TUBE PO PRN (13:15)
[2018-03-16] MEDS ORDERED: DEXTROSE 50% 50 ML SYR IV PRN (13:15)
[2018-03-16] MEDS ORDERED: GLUCOSE 10 TABS/TUBE PO PRN (13:15)
[2018-03-16] MEDS ORDERED: GLUCAGON FOR INJ 1 MG VIAL IM PRN (13:15)
--- NOTE | 2018-03-16 13:45 | Gastrointestinal Consultation ---
Gastrointestinal Consultation Date of Consultation: March 16, 2018 Attending Physician: Delmis Consulting Physician: Jeremiah Reason for Consultation: BRBPR History of Present Illness Patient is a 53 year old female admitted for observation following surgical recision of thoracic schwannoma - GI was asked to evaluate the pt for two episodes of fecal incontinence with BRBPR. Pt was seen and evaluated, chart reviewed. Family at bedside who aided in history as Juany is still drowsy from anesthesia. Notes she does not have regular BRBPR at home. No reports of melena , hematemesis or coffee ground emesis. She denies abd pain, nausea, vomiting. Her only concern is her left eye is sore and itchy. No fever, chills, CP, SOB. EGD 12/16/16: Z-line irregular, 38 cm from the incisors. Biopsied. Normal stomach. Biopsied. Normal examined duodenum. Biopsied. Colonoscopy 12/16/16: 2 mm ascending colon polyp, otherwise WNL Past Medical/Surgical History Medical Problems: (1) Ataxia Status: Acute (2) Back pain Status: Acute (3) Chest pain Status: Acute (4) Constipation Status: Acute (5) Contusion of multiple sites Status: Acute (6) Fall Status: Acute (7) Generalized weakness Status: Acute (8) Hyperglycemia Status: Acute (9) Mediastinal mass Status: Acute (10) UTI (urinary tract infection) Status: Acute (11) UTI (urinary tract infection) Status: Acute (12) UTI (urinary tract infection) Status: Acute Past Medical History: Anxiety Ataxia Back pain ConstipationContusion of multiple sites Diabetes mellitus, type IIFallGeneralized weakness History enchondroma of left femur History of thyroid cancerHistory of toxic multinodular goiterHyperglycemia Obsessive compulsive disorderPostsurgical hypothyroidism UTI (urinary tract infection) Past Surgical History: Status post cholecystectomy Status post excision enchondroma left femur Status post thyroidectomy Family History Diabetes mellitus BROTHER BROTHER Myocardial infarction FATHER Ovarian cancer MOTHER Social History Smoking Status: Never Smoker Alcohol Use: none Drug Use: none Marital Status: single Housing Status: lives with significant other Occupation Status: unemployed, disabled Allergies Coded Allergies: NO KNOWN DRUG ALLERGIES (Verified Allergy, Unknown, ., 03/16/18) Adhesives (Verified Adverse Reaction, Mild, TAPE-RASH, 03/16/18) Current Medications Home Meds and Scripts Medications Dose Route/Sig Max Daily Dose Days Date Category Dose Instructions CeleBREX (Celecoxib) 200 Mg Cap 200 Mg PO DAILY PRN 03/08/18 Reported PATIENT INSTRUCTED TO CONTACT SURGEON OFFICE REGARDING PRE OP INSTRUCTIONS REGARDING USE OF THIS MEDICATION PRIOR TO SURGERY. PATIENT VOICES UNDERSTANDING. Invokana (Canagliflozin) 100 Mg Tab 100 Mg PO QAM 03/08/18 Reported Valtrex (Valacyclovir HCl) 500 Mg Tab 500 Mg PO TID PRN 03/08/18 Reported Aspirin Ec (Aspirin) 81 Mg Tab 81 Mg PO QAM 06/20/16 Reported PT INSTRUCTED TO CONTACT SURGEON OFFICE AND PRESCRIBING PHYSICIAN REGARDING PRE OP INSTRUCTIONS REGARDING THIS MEDICATION. PATIENT VOICES UNDERSTANDING. PATIENT REPORTS SHE WILL CALL TOMORROW 03/11/18. Humulin 70/30 (Insulin Human Isoph/Insulin Regular) Inj 50 Units SC BID 06/20/16 Reported Glucophage (Metformin Hcl) 1,000 Mg Tab 1,000 Mg PO BID 06/20/16 Reported Metoprolol Succinate ER (Metoprolol Succinate) 25 Mg Tabcr 25 Mg PO HS 06/20/16 Reported Norvasc (Amlodipine Besylate) 2.5 Mg Tab 2.5 Mg PO HS 06/20/16 Reported Lipitor (Atorvastatin Calcium) 80 Mg Tab 80 Mg PO HS 06/20/16 Reported Ativan (Lorazepam) 1 Mg Tab 2 Mg PO HS 06/20/16 Reported Escitalopram Oxalate 20 Mg Tab 20 Mg PO HS 06/20/16 Reported Prilosec (Omeprazole) 20 Mg Cap 20 Mg PO HS 09/26/14 Reported Levothyroxine Sodium 175 Mcg Tab 175 Mcg PO HS 09/26/14 Reported Review of Systems Constitutional: No fever, No chills Eyes: + problem reported Respiratory: No cough, No shortness of breath Cardiac: No chest pain, No edema Abdomen: No pain, No nausea, No vomiting, No diarrhea, No constipation, No GI bleeding Physical Exam Date Time Temp Pulse Resp B/P (MAP) Pulse Ox O2 Delivery O2 Flow Rate FiO2 03/16/18 12:25 94 Nasal Cannula 2.0 03/16/18 12:25 Nasal Cannula 2.0 03/16/18 12:25 36.8 71 20 125/72 (89) 94 Nasal Cannula 2.0 03/16/18 12:10 67 19 106/63 95 Nasal Cannula 2 03/16/18 12:00 66 17 119/68 96 Nasal Cannula 2 03/16/18 11:50 37.0 63 11 112/74 96 Nasal Cannula 2 03/16/18 11:40 62 12 119/64 97 Nasal Cannula 2 03/16/18 11:30 58 12 119/67 96 Nasal Cannula 2 03/16/18 11:20 60 15 125/74 99 Nasal Cannula 2 03/16/18 11:10 56 15 114/70 100 Oxymask 10 03/16/18 11:00 56 11 124/76 99 Oxymask 10 03/16/18 10:50 36.0 54 18 105/64 100 Oxymask 10 03/16/18 06:06 36.5 63 20 125/77 97 Room Air General Appearance: no apparent distress Eyes: PERRL ENT: hearing grossly normal Neck: supple, trachea midline Respiratory/Chest: lungs clear, normal breath sounds Abdomen: non tender, soft, no organomegaly Neurologic/Psych: alert, normal mood/affect, oriented x 3 Skin: normal color, warm/dry Laboratory Results Last 24 Hours Test 03/16/18 05:56 03/16/18 05:59 03/16/18 10:56 Human Chorionic Gonadotropin, Qual NEG Bedside Glucose 296 mg/dl 210 mg/dl Impression Patient is a 53 year old female admitted for observation following thoracic surgery w/ report of two incontinent episodes of BRB. She had recent colonoscopy in 2017. Hemorrhoidal vs fissure vs other Plan - CBC - No contraindication to anticoagulation if needed - Continue other medications as ordered - GI to follow up on HCT in the AM. Please call with any questions or concerns. I have seen and examined the patient with CAROL Gibson whose note reflects our findings and plan. Incidental rectal bleeding noted while patient here for removal of a benign mediastinal tumor. She has had a colonoscopy in the last 12 months. Low suspicion for malignancy or other significant cause for bleeding. Suspect outlet bleeding. Will observe and follow H/H. No plan for repeat colonoscopy at this time.
[2018-03-16] MEDS: METOCLOPRAMIDE HCL INJ 5 MG/ML 2 ML VIAL IV. SCH ×2 (14:11→21:30)
[2018-03-16] MEDS: ACETAMINOPHEN IV 1,000 MG in EMPTY BAG 0 ML IV SCH ×2 (14:12→21:30)
[2018-03-16 14:14] LABS: HEMATOCRIT 42.3 % (37-47); HEMOGLOBIN 13.9 g/dL (12.0-16.0); MEAN CELL VOLUME 87.8 fL (80-100); MEAN CORPUSCULAR HEMOGLOBIN 28.8 pg (25-34); MEAN CORPUSCULAR HGB CONC 32.9 g/dl (32-36); MEAN PLATELET VOLUME 9.2 fL (7.4-10.4); PLATELET COUNT 252 K/uL (130-400); RED CELL DISTRIBUTION WIDTH CV 14.4 % (11.5-14.5); RED CELL DISTRIBUTION WIDTH SD 46.1 fL (36.4-46.3); WHITE BLOOD COUNT 17.25 K/uL (4.8-10.8)
[2018-03-16] MEDS: OXYCODONE HCL IR 5 MG TAB (IMMEDIATE RELEASE) PO PRN (16:17)
[2018-03-16] MEDS: INSULIN 70% ASPART PROTAMINE/30% ASPART SC SCH (18:32)
[2018-03-16] MEDS: INSULIN ASPART 100 UNITS/ML 3 ML PEN SC SCH ×2 (18:33→21:19)
[2018-03-16] MEDS ORDERED: METOPROLOL SUCC 25MG EXT REL TAB PO SCH (21:00)
[2018-03-16] MEDS ORDERED: LORAZEPAM 1 MG TAB PO SCH (21:00)
[2018-03-16] MEDS ORDERED: AMLODIPINE BESYLATE 5 MG TAB PO SCH (21:00)
[2018-03-16] MEDS ORDERED: PANTOprazole SOD 40 MG TAB PO SCH (21:00)
[2018-03-16] MEDS ORDERED: ATORVASTATIN 40 MG TAB PO SCH (21:00)
[2018-03-16] MEDS ORDERED: ESCITALOPRAM OXALATE 20 MG TAB PO SCH (21:00)
[2018-03-16] MEDS ORDERED: LEVOTHYROXINE 175 MCG TAB PO SCH (21:00)
[2018-03-16] MEDS: DOCUSATE SODIUM 100 MG CAP PO SCH (21:19)
[2018-03-17] MEDS: OXYCODONE HCL IR 5 MG TAB (IMMEDIATE RELEASE) PO PRN ×2 (00:21→07:23)
[2018-03-17 00:59] VITALS: BP 115/71; PULSE 74; TEMP 36.8; O2SAT 90
[2018-03-17] MEDS: SODIUM CHLORIDE 0.9% 1000ML 1,000 ML IV SCH (02:50)
[2018-03-17 04:55] VITALS: BP 110/67; PULSE 73; TEMP 36.6; O2SAT 93
[2018-03-17] MEDS: METOCLOPRAMIDE HCL INJ 5 MG/ML 2 ML VIAL IV. SCH (05:48)
[2018-03-17] MEDS: ACETAMINOPHEN IV 1,000 MG in EMPTY BAG 0 ML IV SCH (05:49)
[2018-03-17] MEDS ORDERED: CLC100 PO (06:12)
--- NOTE | 2018-03-17 06:14 | Discharge Instructions ---
Discharge Instructions Date of Service March 17, 2018. Admission Reason for Admission: Paraspinal Mass Discharge Discharge Diagnosis / Problem: Schwanoma Discharge Goals Goal(s): Learn about illness Activity Recommendations Activity Limitations: as noted below Lifting Limitations: none 1. Do not fly or drive until cleared to do so by Dr. Benites. . Instructions / Follow-Up Instructions / Follow-Up 1. You may remove dressing in 3 days and shower thereafter. No tub baths. 2. Office appointment with Dr Benites in 1 week. Office will call with date and time of appointment. Go to hospital 1 hour before appointment to have a chest x-ray taken. Current Hospital Diet Patient's current hospital diet: Diabetes Type 1 Diet Discharge Diet Recommended Diet: Diabetes Type 1 Diet Procedures Procedures Performed: Robotic Assisted Left Video Thoracoscopy with Excision of Neurogenic Tumor Pending Studies Studies pending at discharge: no Laboratory Results Hemoglobin A1c Test 02/22/18 04:19 Range/Units Estimated Average Glucose 209 mg/dl Hemoglobin A1c 8.9 H 4.5-5.6 % Lipid Panel Test 02/22/18 04:19 Range/Units Triglycerides Level 130 0-150 mg/dl Cholesterol Level 115 0-200 mg/dl HDL Cholesterol 46 mg/dl Cholesterol/HDL Ratio 2.5 LDL Cholesterol, Calculated 43 mg/dl Medical Emergencies . Who to Call and When: Medical Emergencies: If at any time you feel your situation is an emergency, please call 911 immediately. . Non-Emergent Contact Non-Emergency issues call your: Surgeon Call Non-Emergent contact if: you have a fever, your pain is not controlled, wound has increased drainage . "Provider Documentation" section prepared by Edvin Cantu. .
[2018-03-17 07:00] VITALS: BP 119/74; PULSE 69; TEMP 36.7; O2SAT 92
--- NOTE | 2018-03-17 07:21 | DIAGNOSTIC IMAGING REPORT ---
CHEST ONE VIEW PORTABLE CLINICAL HISTORY: med. mass excision COMPARISON STUDY: 03/16/2018 FINDINGS: The heart remains enlarged. There is stable mediastinal widening. There is a left-sided chest tube present. There is a trace left apical pneumothorax. Bibasilar opacities are likely atelectatic.[ IMPRESSION: 1. Stable mediastinal widening 2. No change the position of the left-sided chest tube. Trace pneumothorax. 3. Minor basilar atelectasis Electronically signed by: Olu Agosto M.D. 03/17/2018 7:20 AM Dictated Date/Time: 03/17/2018 7:18 AM
[2018-03-17 08:06] LABS: HEMATOCRIT 41.9 % (37-47); HEMOGLOBIN 13.7 g/dL (12.0-16.0)
[2018-03-17] MEDS ORDERED: NURSING VERBAL MED ORDER ONE (09:00)
--- NOTE | 2018-03-17 09:29 | DIAGNOSTIC IMAGING REPORT ---
CHEST ONE VIEW PORTABLE HISTORY: tube removal COMPARISON: Chest 03/17/2018. FINDINGS: The left-sided chest tube is been removed. No definite pneumothorax. The heart remains enlarged. There are low lung volumes. Mild superior mediastinal widening remains unchanged. Left basilar atelectasis has improved. Mild central pulmonary vascular congestion without overt edema. IMPRESSION: 1. Left-sided chest tube is been removed. No pneumothorax identified. 2. Mild mediastinal widening, unchanged. 3. Mild central pulmonary vascular congestion without overt edema. Electronically signed by: Elgin Mccoy M.D. 03/17/2018 9:28 AM Dictated Date/Time: 03/17/2018 9:13 AM
[2018-03-17] MEDS ORDERED: KETOROLAC TROMETHAMINE 30 MG/ML VIAL IV. PRN (09:30)
--- NOTE | 2018-03-17 09:32 | Gastroenterology Progress Note ---
Progress Note Date of Service: March 17, 2018 Subjective Pt evaluation today including: conversation w/ patient, physical exam, chart review, lab review, review of studies, review of inpatient medication list Ms. Juany Resendez is a 53 yr old female who underwent Robot-assisted thoracoscopic excision of schwannoma T1 and T2 on 03/16 then experienced two episodes of incontinence of bright red rectal bleeding. Hb yesterday 13.9, today 13.7. No further rectal bleeding or other BMs. Pt denies any abdominal pain, nausea or vomiting. Review of Systems Constitutional: No fever Respiratory: No cough Cardiac: + chest pain (pt quiet - with painful faces and explained, "they just took the tube out.") Abdomen: + see HPI, No pain, No nausea, No vomiting, No diarrhea Musculoskeletal: No joint pain Female : No dysuria Neuro: No memory loss Psych: No depression symptoms Heme: No abnormal bleeding/bruising Endo: No fatigue Skin: No rash Medications Current Inpatient Medications Medications (Trade) Dose Ordered Sig/Angie Route Start Time Stop Time Status Last Admin Dose Admin Amlodipine Besylate (Norvasc Tab) 2.5 mg HS PO 03/16/18 21:00 04/15/18 20:59 03/16/18 21:27 2.5 MG Atorvastatin Calcium (Lipitor Tab) 80 mg HS PO 03/16/18 21:00 04/15/18 20:59 03/16/18 21:26 80 MG Escitalopram Oxalate (Lexapro Tab) 20 mg HS PO 03/16/18 21:00 04/15/18 20:59 03/16/18 21:26 20 MG Insulin Aspart Prota 70%/Aspart 30% (novoLOG MIX 70/ 30) 50 units BIDM SC 03/16/18 17:45 04/15/18 17:44 03/16/18 18:32 50 UNITS Levothyroxine Sodium (Synthroid Tab) 175 mcg HS PO 03/16/18 21:00 04/15/18 20:59 03/16/18 21:26 175 MCG Lorazepam (Ativan Tab) 2 mg HS PO 03/16/18 21:00 04/15/18 20:59 03/16/18 21:25 2 MG Metoprolol Succinate (Toprol Xl Tab) 25 mg HS PO 03/16/18 21:00 04/15/18 20:59 03/16/18 21:26 25 MG Valacyclovir HCl (Valtrex Tab) 500 mg TID PRN PO 03/16/18 10:45 03/26/18 10:44 Miscellaneous Information (Order Awaiting Action) 1 ea QS N/A 03/16/18 16:00 04/15/18 15:59 Pantoprazole Sodium (Protonix Tab) 40 mg HS PO 03/16/18 21:00 04/15/18 20:59 03/16/18 21:26 40 MG Insulin Aspart (novoLOG ASPART) SLIDING SCALE G... ACHS SC 03/16/18 17:15 04/15/18 17:14 03/16/18 21:19 2 UNITS Oxycodone HCl (Roxicodone Immediate Rel Tab) 5 mg Q6H PRN PO 03/16/18 10:45 03/30/18 10:44 03/17/18 07:23 5 MG Ondansetron HCl (Zofran Inj) 4 mg Q4H PRN IV 03/16/18 10:45 04/15/18 10:44 Docusate Sodium (coLACE CAP) 100 mg BID PO 03/16/18 21:00 04/15/18 20:59 03/16/18 21:19 100 MG Metoclopramide HCl (Reglan Inj) 10 mg Q8 IV. 03/16/18 14:00 03/17/18 13:59 03/17/18 05:48 10 MG Morphine Sulfate (MoRPHine SULFATE INJ) Q1H PRN IV 03/16/18 10:45 03/30/18 10:44 03/17/18 07:56 2 MG Glucose (Glucose 40% Gel) 15-30 GRAMS 15 GRAMS... UD PRN PO 03/16/18 13:15 04/15/18 13:14 Glucose (Glucose Chew Tab) 4-8 Tablets 4 Tabl... UD PRN PO 03/16/18 13:15 04/15/18 13:14 Dextrose (Dextrose 50% 50ML Syringe) 25-50ML 25ML FOR ... UD PRN IV 03/16/18 13:15 04/15/18 13:14 Glucagon (Glucagon Inj) 1 mg UD PRN IM 03/16/18 13:15 04/15/18 13:14 Carbohydrates (Carbohydrates For Hypoglycemia) 15-30 GRAMS 15 grams if BSG 54-69... UD PRN PO 03/16/18 13:15 04/15/18 13:14 Acetaminophen (Tylenol Tab) 650 mg Q6H PO 03/17/18 12:00 04/16/18 11:59 Ketorolac Tromethamine (Toradol Inj) 30 mg Q8H PRN IV. 03/17/18 09:30 03/22/18 09:29 Objective Vital Signs Date Time Temp Pulse Resp B/P (MAP) Pulse Ox O2 Delivery O2 Flow Rate FiO2 03/17/18 08:00 Room Air 03/17/18 07:00 36.7 69 18 119/74 (89) 92 Room Air 03/17/18 04:55 36.6 73 15 110/67 (81) 93 Room Air 03/17/18 00:59 36.8 74 16 115/71 (86) 90 Room Air 03/17/18 00:15 Nasal Cannula 2.0 03/16/18 23:02 36.7 75 16 114/70 (85) 92 Room Air 03/16/18 21:04 36.9 78 16 120/73 (89) 90 Room Air 03/16/18 19:09 36.7 72 16 120/75 (90) 93 Room Air 03/16/18 16:57 36.7 74 16 107/68 (81) 95 Nasal Cannula 2.0 03/16/18 16:00 36.8 77 16 110/70 (83) 96 Nasal Cannula 2.0 03/16/18 16:00 Nasal Cannula 2.0 03/16/18 14:55 36.8 77 18 111/69 (83) 96 Nasal Cannula 2.0 03/16/18 13:25 75 16 111/53 (72) 95 2.0 03/16/18 12:55 70 16 118/64 (82) 93 2.0 03/16/18 12:25 94 Nasal Cannula 2.0 03/16/18 12:25 Nasal Cannula 2.0 03/16/18 12:25 36.8 71 20 125/72 (89) 94 Nasal Cannula 2.0 03/16/18 12:10 67 19 106/63 95 Nasal Cannula 2 03/16/18 12:00 66 17 119/68 96 Nasal Cannula 2 03/16/18 11:50 37.0 63 11 112/74 96 Nasal Cannula 2 03/16/18 11:40 62 12 119/64 97 Nasal Cannula 2 03/16/18 11:30 58 12 119/67 96 Nasal Cannula 2 03/16/18 11:20 60 15 125/74 99 Nasal Cannula 2 03/16/18 11:10 56 15 114/70 100 Oxymask 10 03/16/18 11:00 56 11 124/76 99 Oxymask 10 03/16/18 10:50 36.0 54 18 105/64 100 Oxymask 10 Physical Exam General Appearance: + mild distress (post surgical chest pain) Neck: no JVD Respiratory/Chest: lungs clear Cardiovascular: regular rate, rhythm, no JVD, no murmur Abdomen: non tender, soft, + distended (very mild) Extremities: non-tender Neurologic/Psych: alert, oriented x 3 Skin: no jaundice Laboratory Results Last 24 Hours Test 03/16/18 10:56 03/16/18 12:48 03/16/18 14:04 03/16/18 17:32 Bedside Glucose 210 mg/dl 226 mg/dl 185 mg/dl White Blood Count 17.25 K/uL Red Blood Count 4.82 M/uL Hemoglobin 13.9 g/dL Hematocrit 42.3 % Mean Corpuscular Volume 87.8 fL Mean Corpuscular Hemoglobin 28.8 pg Mean Corpuscular Hemoglobin Concent 32.9 g/dl RDW Standard Deviation 46.1 fL RDW Coefficient of Variation 14.4 % Platelet Count 252 K/uL Mean Platelet Volume 9.2 fL Test 03/16/18 20:59 03/17/18 07:37 03/17/18 08:14 Bedside Glucose 196 mg/dl 168 mg/dl Hemoglobin 13.7 g/dL Hematocrit 41.9 % Assessment and Plan Ms Resendez is a 53 yr old female who experienced two episodes of rectal bleeding yesterday, after robotic chest surgery, w/o significant drop in Hb/Hct and w/o further occurrence. Plan: 1. Unsure of the significance of the bleeding, possibly hemorrhoidal or diverticular. 2. Hx of normal colonoscopy in 2017, no recommendation to repeat unless the bleeding recurs and becomes hemodynamically significant. 3. GI will watch peripherally. Please call if rectal bleeding recurs. I have seen and examined the patient with CAROL Dennis whose note reflects our findings and plan. No further bleeding. H/H stable. No abd pain. Please call with questions.
[2018-03-17] MEDS: DOCUSATE SODIUM 100 MG CAP PO SCH (09:44)
[2018-03-17] MEDS: INSULIN 70% ASPART PROTAMINE/30% ASPART SC SCH (09:46)
[2018-03-17] MEDS: INSULIN ASPART 100 UNITS/ML 3 ML PEN SC SCH ×2 (09:46→14:04)
[2018-03-17 11:54] VITALS: BP 105/65; PULSE 75; TEMP 36.8; O2SAT 92
[2018-03-17] MEDS ORDERED: ACETAMINOPHEN 325 MG TAB PO SCH (12:00)
[2018-03-17 13:59] VITALS: BP 105/65; PULSE 75; TEMP 36.8; O2SAT 92
--- NOTE | 2018-03-17 22:07 | DISCHARGE SUMMARY ---
DISCHARGE DIAGNOSIS: Schwannoma T1 and T2, on the left. HOSPITAL COURSE: This is a very nice 53-year-old female, who presented with urinary tract infection recently and had a CT scan, she was found to have a mass which was not present a few years ago at T1 and T2 in the left upper pleural cavity. On 03/16/2018, the patient was brought to the operating room and underwent an uncomplicated robot-assisted resection of this mass. Frozen section shows this to be a schwannoma. She did very well with the surgery with no blood loss. She awakened without a Al syndrome. She had no neurologic issues. We did peel this off of the vertebral artery. At any rate, we had no blood loss. Patient awakened without difficulty. We moved her to the floor. She was complaining of intense midsternal chest pain. This morning, I came in and removed her chest tube and she was still complaining of intense 8/10 pain. After removing the tube I came back to see her at about lunchtime and her pain had resolved. She felt "great." We went ahead and sent her home on some tramadol. Her x-ray looked quite good. Pathology of course is not back at this point. I will see her back in a week with a chest x-ray. Her incisions were clean. I was really quite pleased with this entire case.
== END 2018-03-17 14:27 | disposition home or self-care (01) | DRG 565 ==
LOC: C.ACU 05:27 → C.MSN 06:35 → ENRESERV 11:19
PROVIDERS: ADMIT Surgery; ATTEND Surgery
PROC: 8E0W4CZ Robotic Assisted Procedure of Trunk Region, Percutaneous Endoscopic Approach (ICD-10-PCS; principal; 2018-03-16 07:30)
PROC: 01B Peripheral Nervous System, Excision (ICD-10-PCS; principal; 2018-03-16 07:30)
DX: D36.14 Benign neoplasm of peripheral nerves and autonomic nervous system of thorax (principal); K62.5 Hemorrhage of anus and rectum; Z85.850 Personal history of malignant neoplasm of thyroid; E89.0 Postprocedural hypothyroidism; E11.9 Type 2 diabetes mellitus without complications; Z80.41 Family history of malignant neoplasm of ovary; R15.9 Full incontinence of feces; Z87.440 Personal history of urinary (tract) infections; F42.9 Obsessive-compulsive disorder, unspecified; Z83.3 Family history of diabetes mellitus

== ENCOUNTER → 2018-03-24 | Outpatient (CLI) | payer OTHER ==
[~2018-03-24] MED LIST changes: +CLC100 PO
--- NOTE | 2018-03-24 13:41 | DIAGNOSTIC IMAGING REPORT ---
CHEST 2 VIEWS ROUTINE HISTORY: 53 years-old Female D36.10 Schwannoma COMPARISON: Chest radiograph 03/17/2014 TECHNIQUE: PA and lateral views of the chest FINDINGS: Cardiac silhouette is moderately enlarged. Small left pleural effusion with subsegmental left basilar opacities. There is no pneumothorax. Right lung is generally clear. No overt pulmonary edema. Surgical clips project over the right upper quadrant abdomen and left axillary distribution. Degenerative changes of the shoulders and spine. IMPRESSION: 1. Cardiomegaly without overt pulmonary edema. 2. Small left pleural effusion with subsegmental left basilar opacities favoring atelectasis. The above report was generated using voice recognition software. It may contain grammatical, syntax or spelling errors. Electronically signed by: Ashwin Martinez M.D. 03/24/2018 1:40 PM Dictated Date/Time: 03/24/2018 1:38 PM
== END | disposition home or self-care (01) ==
LOC: C.RAD 13:13
PROVIDERS: ATTEND Surgery
DX: D36.10 Benign neoplasm of peripheral nerves and autonomic nervous system, unspecified (principal); I51.7 Cardiomegaly

== ENCOUNTER 2019-08-02 06:45 | Inpatient (IN) ==
--- NOTE | 2019-07-28 10:32 | Anesthesiology Consultation ---
Date of Service July 28, 2019 Assessment & Plan (1) Encounter for pre-operative examination: Chart Review Chart Review: Pending: Refer to Additional Notes / Consult section and Patient NOT seen in Pre Admission Testing pending labs and cxr Consults Requested none History Surgery Operation Date: 08/09/19 09:05 Proposed Procedures p C6-C7 Anterior Cervical Discectomy and Fusion with Spinal Cord Monitoring - Laz Ortega DO Height/Weight Height: 5 ft 8 in Weight: 96.4 kg Allergies Allergy/AdvReac Type Severity Reaction Status Date / Time adhesive tape Allergy Mild SKIN Verified 07/21/19 08:56 IRRITATION No Known Drug Allergies Allergy Verified 07/21/19 08:56 Medications Home Medications Medication Instructions Recorded Confirmed Last Taken aspirin 81 mg PO QAM 02/18/19 07/21/19 04/09/19 atorvastatin 80 mg PO QPM 02/18/19 07/21/19 04/09/19 escitalopram oxalate 20 mg PO QAM 02/18/19 07/21/19 04/09/19 levothyroxine 175 mcg PO HS 02/18/19 07/21/19 04/09/19 lorazepam 1 - 2 mg PO HS PRN 02/18/19 07/21/19 04/09/19 metformin 1,000 mg PO BID 02/18/19 07/21/19 04/10/19 08:00 metoprolol succinate 25 mg PO QPM 02/18/19 07/21/19 04/09/19 omeprazole 20 mg PO BID 02/18/19 07/21/19 04/10/19 Humulin 70/30 U-100 Insulin 60 unit SUBCUT BID 03/27/19 07/21/19 04/10/19 08:00 Invokana 200 mg PO QAM 03/27/19 07/21/19 04/10/19 08:00 amlodipine 2.5 mg PO HS 03/27/19 07/21/19 04/09/19 valacyclovir 1 gram tablet 1,000 mg PO QAM PRN 06/12/19 07/21/19 Unknown bupropion HCl [Wellbutrin XL] 300 mg PO QAM 07/21/19 07/21/19 Unknown gabapentin 200 mg PO HS 07/21/19 07/21/19 Unknown Past Medical History Medical History Anxiety (Chronic) History of thyroid cancer (Chronic) Diabetes mellitus, type II (Chronic) Schwannoma REMOVED BY DR. GROSSMAN MARCH 2018 Depression Hypertension Myocardial Infarction 12 YEARS AGO (FOLLOWED BY DR. 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 03/16/2018. SANG. A line. No issues. History of thyroidectomy, total History of tonsillectomy History of tooth extraction S/P LASIK surgery of both eyes Status post hysteroscopic ablation of endometrium STOP BANG Total 3 Social History Smoking Status: Never smoker Do You Dip or Chew Tobacco: No Hx Alcohol Use: No Alcohol type: wine alcohol intake frequency: holidays/special occasions only Hx Substance Use: No substance use type: does not use Physical Exam Vital Signs Last Vital Signs Temp 36.5 C 07/28/19 10:06 Pulse 64 07/28/19 10:06 Resp 18 07/28/19 10:06 BP 122/78 07/28/19 10:06 Pulse Ox 97 07/28/19 10:06 Constitutional + obese ENMT Mouth: + dentures Thyromental Distance: < 3.5 Finger Breadths Mallampati Class: II Neck + short neck and + thick neck symptomatic upon full neck extension. no issues with flexion or side to side movement Respiratory normal respiratory effort Auscultation: lungs clear to auscultation bilaterally Cardiovascular Rate/Rhythm: regular rate and regular rhythm Heart Sounds: no murmur Musculoskeletal Spine: + limited cervical ROM and + pain with cervical ROM Psychiatric Orientation: alert and oriented x 3 Testing Electrocardiogram Date: 05/09/19 Findings: + NSR @ RBBB HR 65 Chest X-Ray Date: 12/10/18 TWO VIEW CHEST CLINICAL HISTORY: Thoracic back pain. FINDINGS: PA and lateral chest radiographs are compared to study dated 03/17/2018 and correlated with chest CT dated 10/06/2018. The heart is top normal for projection. The pulmonary vasculature is noncongested. There is bibasilar atelectasis. No airspace consolidation or pleural effusion is identified. There is no pneumothorax. The bony thorax appears intact. Residual enteric contrast is noted in the colon. IMPRESSION: No active disease in the chest. Echocardiogram Date: 05/23/19 negative for inducible ischemia. 05/23/2019 no valvular pathology grade 1 diastolic dysfunction. Other Testing C-spine xray 12/2018 CERVICAL SPINE 3 VIEWS HISTORY: Neck pain. COMPARISON: None. FINDINGS: The cervical spine is visualized from C1 through the superior endplate of T1. There is no fracture. No subluxation. Disc spaces are preserved. Prevertebral soft tissues and the atlantodens interval are intact. IMPRESSION: No fracture or subluxation within the cervical spine.
--- NOTE | 2019-07-28 10:56 | XRay Report ---
XR chest Pre-admission PA/Lat CLINICAL HISTORY: Preoperative chest COMPARISON STUDY: December 27, 2018 FINDINGS: The heart is the upper limits of normal in size. There is mild soft tissue prominence of th e right jamir azygous region, unchanged from the prior study. There is no acute parenchymal consolidat ion. There is no failure. There are no pleural effusions.[ IMPRESSION: No active disease in the chest. Electronically signed by: Olu Agosto M.D. 07/28/2019 10:54 AM
[2019-07-28 11:38] LABS: Basophils # (auto) 0.05 K/uL (0-0.2); Basophils % (auto) 0.6 %; Eosinophils # (auto) 0.45 K/uL (0-0.5); Eosinophils % (auto) 5.6 %; Hematocrit (blood only) 45.1 % (37-47); Hemoglobin 14.5 g/dL (12.0-16.0); Immature Granulocytes # (auto) 0.03 K/uL (0.00-0.02); Immature Granulocytes % (auto) 0.4 %; Lymphocytes # (auto) 2.21 K/uL (1.2-3.4); Lymphocytes % (auto) 27.4 %; Mean Corpuscular Hemoglobin 29.1 pg (25-34); Mean Corpuscular Hgb Conc 32.2 g/dL (32-36); Mean Corpuscular Volume 90.6 fL (80-100); Mean Platelet Volume 10.2 fL (7.4-10.4); Monocytes # (auto) 0.65 K/uL (0.11-0.59); Monocytes % (auto) 8.1 %; Neutrophils # (auto) 4.67 K/uL (1.4-6.5); Neutrophils % (auto) 57.9 %; Platelet Count 255 K/uL (130-400); RDW Coefficient of Variation 14.3 % (11.5-14.5); RDW Standard Deviation 47.3 fL (36.4-46.3); Red Blood Count 4.98 M/uL (4.2-5.4); White Blood Count 8.06 K/uL (4.8-10.8)
[2019-07-28 11:44] LABS: BUN Creatinine Ratio 24.3 (10-20); Creatinine Clr Calc Pharmacy 112.1 ml/min; Est GFR (African American) 113.3; Est GFR (Non-African American) 97.8; Potassium 4.1 mmol/L (3.5-5.1)
[2019-07-28 11:45] LABS: Appearance Urine Cloudy (Clear); Bacteria Urine Automated 4+ (Negative); Bilirubin Urine Negative (Negative); Blood Urine Negative (Negative); Color Urine Yellow; Epithelial Cell Urine Auto >30 /lpf (0-5); Glucose Urine UA 1+ (Negative); Ketones Urine Negative (Negative); Leukocyte Esterase Urine 2+ (Negative); Nitrite Urine Negative (Negative); Protein Urine Negative (Negative); RBC Urine Automated 0-4 /hpf (0-4); Specific Gravity Urine 1.015 (1.000-1.030); Urobilinogen Urine Negative (Negative); WBC Urine Automated >30 /hpf (0-5)
[2019-07-28 11:51] LABS: INR 0.9 (0.9-1.1); Partial Thromboplastin Time 25.9 Seconds (21.0-31.0); Prothrombin Time 9.7 Seconds (9.0-12.0)
[~2019-08-02 06:45] MED LIST changes: +ACETAMINOPHEN 500 MG TAB PO SCH; -AMLO2.5T PO; -ASPI81TA28 PO; -ATOR-26 PO; -ATV/1 PO; -CANA1TAB PO; +CEFAZOLIN 2000MG 2,000 MG/15 ML SYR IV SCH; -CLB/200 PO; -CLC100 PO; +CeleBREX 200 MG CAP PO SCH; +DEXAMETHASONE SOD INJ 4 MG/ML VIAL ONE; +GABAPENTIN 600 MG DOSE PO SCH; +GLYCOPYRROLATE 0.2 MG/ML VIAL ONE; +HYDROmorphone INJ 2 MG/ML SYR/VIAL ONE; -INSHI7030 SC; -LEVO175T3 PO; +LIDOCAINE HCL 2% 2 ML VIAL/AMP(20MG/ML) INFIL ONE; +LR 15ML/HR IV SCH; -LXP/20 PO; -METF-384 PO; +MIDAZOLAM HCL 1 MG/ML 2ML VIAL ONE; +NEOSTIGMINE METHYLSULFATE 1 MG/ML 10ML VIAL ONE; -OMEP20CA9 PO; +ONDANSETRON INJ 2 MG/ML 2 ML VIAL ONE; +PROPOFOL IV EMULSION 10 MG/ML 20 ML VIAL IV ONE; +ROCURONIUM BROMIDE 10 MG/ML 5 ML VIAL ONE; -TPRSR/25 PO; -VALA500T60 PO; +fentaNYL citrate 100 MCG/2 ML VIAL ONE
[2019-08-02] MEDS ORDERED: PROPOFOL IV EMULSION 10 MG/ML 100 ML VIAL IV ONE (07:11)
[2019-08-02] MEDS ORDERED: BACITRACIN INJ 50,000 UNIT VIAL ONE (07:35)
--- NOTE | 2019-08-02 07:35 | History & Physical Bridge Note ---
Date of Service August 02, 2019 History & Physical Bridge Note I have examined the patient, reviewed the History & Physical and in the interval since the performance of the History & Physical I have noted the following changes of clinical significance: no changes noted
--- NOTE | 2019-08-02 07:37 | History & Physical Report ---
Date of Service August 02, 2019 Assessment & Plan (1) Cervical stenosis of spinal canal: Anterior cervical discectomy and fusion C6-7 Present on Admission?: Yes History of Present Illness Chief Complaint: Neck and arm pain Primary Care Provider: Oralia Mccoy MD This is a 54-year-old female presents with chronic persistent arm pain after failing extensive course of nonoperative care is here for surgical intervention. Allergies Allergy/AdvReac Type Severity Reaction Status Date / Time adhesive tape Allergy Mild SKIN Verified 08/02/19 07:09 IRRITATION No Known Drug Allergies Allergy Verified 08/02/19 07:09 Home Medications Home Medications Medication Instructions Recorded Confirmed Type aspirin 81 mg PO QAM 02/18/19 08/02/19 History atorvastatin 80 mg PO QPM 02/18/19 08/02/19 History escitalopram oxalate 20 mg PO QAM 02/18/19 08/02/19 History levothyroxine 175 mcg PO HS 02/18/19 08/02/19 History lorazepam 1 - 2 mg PO HS PRN 02/18/19 08/02/19 History metformin 1,000 mg PO BID 02/18/19 08/02/19 History metoprolol succinate 25 mg PO QPM 02/18/19 08/02/19 History omeprazole 20 mg PO BID 02/18/19 08/02/19 History Humulin 70/30 U-100 Insulin 70 unit SUBCUT BID 03/27/19 08/02/19 History Invokana 200 mg PO QAM 03/27/19 08/02/19 History amlodipine 2.5 mg PO HS 03/27/19 08/02/19 History valacyclovir 1 gram tablet 1,000 mg PO QAM PRN 06/12/19 08/02/19 History bupropion HCl [Wellbutrin XL] 300 mg PO QAM 07/21/19 08/02/19 History gabapentin 200 mg PO HS 07/21/19 08/02/19 History Past Med/Surg History Medical History Anxiety (Chronic) History of thyroid cancer (Chronic) Diabetes mellitus, type II (Chronic) Schwannoma REMOVED BY DR. GROSSMAN MARCH 2018 Hypertension Restless leg syndrome Depression Myocardial Infarction 12 YEARS AGO (FOLLOWED BY DR. 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 03/16/2018. SANG. A line. No issues. 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 Results & Data Vital Signs (Past 12 Hours) Vital Signs Temp Pulse Pulse Resp BP Pulse Ox 08/02/19 07:22 36.6 C 68 68 20 121/84 96
[2019-08-02] MEDS ORDERED: fentaNYL citrate 100 MCG/2 ML VIAL ONE ×3 (08:18→08:44)
[2019-08-02] MEDS ORDERED: LARYING-O-JET KIT (LTA) ONE (08:19)
[2019-08-02] MEDS ORDERED: HYDROmorphone INJ 2 MG/ML SYR/VIAL IV PRN (08:32)
[2019-08-02] MEDS ORDERED: ePHEDrine sulfate 50 MG/ML AMP IV PRN (08:32)
[2019-08-02] MEDS ORDERED: PROMETHAZINE HCL 12.5 MG in SODIUM CHLORIDE 0.9% 50 ML IV PRN ×2 (08:32→11:14)
[2019-08-02] MEDS ORDERED: fentaNYL citrate 100 MCG/2 ML VIAL IV PRN (08:32)
[2019-08-02] MEDS ORDERED: ATROPINE SULFATE 0.1 MG/ML 10ML SYR IV PRN (08:32)
[2019-08-02] MEDS ORDERED: ONDANSETRON INJ 2 MG/ML 2 ML VIAL IV PRN ×2 (08:32→11:14)
[2019-08-02] MEDS ORDERED: FLOSEAL HEMOSTATIC MATRIX 10ML TOP ONE (08:35)
--- NOTE | 2019-08-02 09:26 | Operative Report ---
Post Operative Report Pre & Post Diagnosis Operation Date: 08/02/19 07:45 Pre-Op Diagnosis: Spinal Stenosis Cervical Region Post-Op Diagnosis: Spinal Stenosis Cervical Region Procedure Operation Date: 08/02/19 07:45 Actual Procedures #1 anterior cervical discectomy with bilateral foraminotomies C6-7. #2 anterior cervical arthrodesis C6-7. #3 placement of titanium 9.9 mm cage filled with DBM and C6-7. #4 occasional hernandez plate and screws across C6-7. Surgeon Laz Ortega, Cab Station Attendant Cinthya Tanner Estimated Blood Loss 10 Findings See Below Patient is 5 foot 8 inches tall weighing over 99 kg with a BMI in excess of. Patient's body habitus added significant technical difficulty throughout the procedure creating difficulty with exposure and completion of the procedure. This added at least 50% increase in operative time. Specimens None Indications This is a 54-year-old female who presents with above-mentioned diagnosis after failing extensive course of nonoperative care is here for surgical intervention. Description of Procedure Patient was met with dental find informed consent obtained. Patient was then taken to the operative suite underwent intubation placed in a supine position on the Manfred table the head Avila department head. All bony prominences well- padded eyes inspected to ensure no external pressure response at this point the anterior cervical spine was prepped and draped in normal sterile fashion. With the assistance of fluoroscopy identified the see 6 7 disc space and a transverse incision was placed along the right anterior aspect of the cervical spinal sinus region. Sharp dissection with the assistance polar left cautery performed on April exposing the anterior cervical spine at C6-7. Self-retaining retractors placed. Then performed a complete discectomy of C6-7 out to the uncovertebral joints bilaterally. [place] distracting pins utilized to assist in her visualization. I removed all posterior annular fibers longitudinal ligament noting significant foraminal disease on the left. After this was decompressed endplates of bur to subcortical bleeding bone and a 9 mm Spira titanium cage filled with DBM tapped in position. Distraction apparatus was removed. All anterior osteophytes burred with smooth cortical surface and a hernandez plate and screws applied with the assistance of fluoroscopy. Incision was explored to ensure no damage to surrounding structures remaining bleeding. 15 round SARAH drain inserted. The incision was then closed with 2 Vicryl in a fashion of 4 Monocryl for final skin closure. Steri-Strip sterile dressings placed. Patient will continue to PACU stable condition. Please note Cinthya Tanner present throughout the entire procedure involved in patient positioning complex portions of the surgery and final skin closure. Lastly spinal cord monitoring was utilized that procedure and no changes noted. I attest to the content of the Intraoperative Record and any orders documented therein. Any exceptions are noted below.
--- NOTE | 2019-08-02 09:47 | Fluoroscopy Report ---
FL cervical 2-3V HISTORY: 54 years-old Female C6-C7 ACDF status post fusion of the cervical spine COMPARISON: None available TECHNIQUE: 3 spot fluoroscopic images of the cervical spine were obtained utilizing 24.4 seconds fluo roscopy time. FINDINGS: Anterior plate and screw fusion hardware noted at C6-C7. Overlying soft tissue limits the examination . As visualized, the alignment appears to be within normal limits. Mild multilevel spondylitic spurri ng. IMPRESSION: Fluoroscopic assistance as above. The above report was generated using voice recognition software. It may contain grammatical, syntax o r spelling errors. Electronically signed by: Ashwin Martinez M.D. 08/02/2019 9:46 AM
--- NOTE | 2019-08-02 10:34 | Anesthesiology Progress Note ---
Date of Service August 02, 2019 Anesthesia Post Procedure Vital Signs Vital Signs: Temp Pulse Pulse Resp BP Pulse Ox 08/02/19 10:25 36.4 C L 73 16 132/70 95 08/02/19 10:15 74 16 137/82 95 08/02/19 10:05 70 14 138/76 95 08/02/19 09:55 72 14 146/79 H 99 08/02/19 09:45 76 16 145/86 H 96 08/02/19 09:35 36.2 C L 74 14 148/82 H 98 08/02/19 07:22 36.6 C 68 68 20 121/84 96 Pain Intensity Posterior Neck: Pain Intensity: 3 Transfer of Care Handoff Completed per policy Notes Mental Status: alert / awake / arousable and participated in evaluation Patient Amnestic to Procedure: Yes Nausea / Vomiting: adequately controlled Pain: adequately controlled Airway Patency, RR, SpO2: stable & adequate BP & HR: stable & adequate Hydration State: stable & adequate Anesthetic Complications: no major complications apparent and Pt Satisfied with anesthetic care
[2019-08-02] MEDS ORDERED: SOD PHOSPHATE/SOD BIPHOSPHATE ENEMA 132 ML BTL PR PRN (11:14)
[2019-08-02] MEDS ORDERED: ACETAMINOPHEN 1,000 MG/100 ML VIAL IV PRN (11:14)
[2019-08-02] MEDS ORDERED: RACEPINEPHRINE 2.25% NEBU SOLN 0.5 ML VIAL INH PRN (11:14)
[2019-08-02] MEDS ORDERED: TRAMADOL HCL 50 MG TABLET PO PRN (11:14)
[2019-08-02] MEDS ORDERED: ONDANSETRON 4 MG TAB PO PRN (11:14)
[2019-08-02] MEDS ORDERED: DEXAMETHASONE SOD PHOSPHATE 8 MG in SYRINGE 0 ML IV PRN (11:14)
[2019-08-02] MEDS ORDERED: LORazepam 0.5 MG TAB PO PRN (11:14)
[2019-08-02] MEDS ORDERED: ALUMINUM/MAGNESIUM SUSP 30 ML UDC PO PRN (11:14)
[2019-08-02] MEDS ORDERED: LORazepam 0.5 MG/1 ML VIAL IV PRN (11:14)
[2019-08-02] MEDS ORDERED: MAGNESIUM HYDROXIDE SUSP 30 ML UDC PO PRN (11:14)
[2019-08-02] MEDS ORDERED: ACETAMINOPHEN 500 MG TAB PO PRN (11:14)
[2019-08-02] MEDS ORDERED: NALOXONE HCL 0.4 MG/1 ML VIAL/CARP IV PRN (11:14)
[2019-08-02] MEDS ORDERED: OXYCODONE HCL IR 5 MG TAB (IMMEDIATE RELEASE) PO PRN (11:14)
[2019-08-02] MEDS ORDERED: FAMOTIDINE 20 MG TAB PO PRN (11:14)
[2019-08-02] MEDS ORDERED: METOCLOPRAMIDE HCL INJ 5 MG/ML 2 ML VIAL IV PRN (11:14)
[2019-08-02] MEDS ORDERED: DO NOT ADMINISTER PNEUMOCOCCAL VACCINE PRN (11:14)
[2019-08-02] MEDS ORDERED: DO NOT ADMINISTER FLU VACCINE PRN (11:14)
[2019-08-02] MEDS ORDERED: SODIUM CHLORIDE 0.9% 1000ML 1,000 ML IV SCH (11:25)
--- NOTE | 2019-08-02 12:08 | Consultation ---
Date of Consultation August 02, 2019 Assessment & Plan (1) History of cervical spinal surgery: Post op day# 0 S/P anterior cervical discectomy and fusion C6-C7 by Dr Ortega Post op with some coughing with drinking water -aspiration precautions, will make npo for now -speech eval -pain management per ortho -wound management per ortho -PT/OT as appropriate -DVT prophylaxis per ortho -monitor H&H for acute blood loss anemia (2) UTI (urinary tract infection): C/O dysuria, urinary frequency. Pre-op urine culture on 07/28/19 +e coli -Pt receiving cefazolin post op -Start Rocephin tomorrow (3) CAD (coronary artery disease): cardiac cath 2015 with distal narrowing LAD, circumflex and posterolateral RCA branch -continue metoprolol -plan to resume aspirin, atorvastatin tomorrow if no swallowing difficulties (4) Hypertension: Stable -Continue metoprolol -Plan to resume amlodipine tomorrow if no swallowing difficulties (5) Diabetes mellitus, type II: A1c: 8.9 on 04/13/19 -Hold insulin 70/30 -Basal bolus insulin (6) History of thyroid cancer: S/P surgery TSH: 0.99 on 07/24/19 -Continue oral levothyroxine tomorrow if no swallowing difficulties, may need to change to IV (7) Depression: -Plan to resume bupropion, escitalopram tomorrow if no swallowing difficulties (8) Obesity: BMI: 33.5 -Lifestyle modifications recommended DVT Prophylaxis -SCDs per ortho Follows with Dr Mccoy for routine care Pt was seen and care coordinated with Dr Dasilva. See addendum Pt will be followed by Dr Camargo starting 08/03/19. Thank you for this consultation. We will follow the patient with you during their hospital stay. You can reach a member of the [facility] Hospitalist Team 31/05 via pager @ [phone]. Supervising Physician Co-Signing Physician Notes I, Dr. Viral Dasilva, have seen and examined the patient with physician prosthetic assistant and On physical exam: General: on nasal cannula, no acute distress, but occasional coughing which patient reports is from throat feeling irritation Neck: dressing over anterior neck Heart: regular rate Lung: on nasal cannula oxygen, lungs clear to auscultation Abdomen: soft, nontender, positive bowel sounds, trucnal obesity Extremities: Legs in SCDs Neuro/Psych: awake and alert, verbal, follows directions And I would like to comment in addition to history/assessment/plan as documented by physician prosthetic assistant that this is a 54 year old female patient who: Is being by hospitalist medicine as consultation as patient is under general surgery service who on 08/02/19 had cervical neck surgery for diagnosis of Spinal Stenosis Cervical Region by Dr. Ortega (Actual Procedures #1 anterior cervical discectomy with bilateral foraminotomies C6-7. #2 anterior cervical arthrodesis C6-7. #3 placement of titanium 9.9 mm cage filled with DBM and C6-7. #4 occasional hernandez plate and screws across C6-7.) Obesity with BMI 33.5 -Patients surgical course complicated by her Obesity with BMI 33.[address] Ortega commented that Patient's body habitus added significant technical difficulty throughout the procedure creating difficulty with exposure and completion of the procedure. This added at least 50% increase in operative time. -encourage PT/OT evaluations starting on 08/03/19 Post-operative State ; Post-op Care -because of throat irritation after a neck surgery, discussed with patient of holding off diet for now. Perhaps when feeling better and if patient more hungry then a diet can be started later tonight. However, currently advised to patient to avoid food for now. A formal speech and swallow consultation also ordered -will try to minimize tonights medications to home dose metoprolol alone to minimize pill burden Hypothyroidism -can resume home dose levothyroxine and other home medications starting tomorrow Diabetes with mcfp use of insulin -as NPO, medicine consult ordering D5 normal saline at 60 cc/hr to maintain blood sugars -patient is a known diabetic, so will do q8 hours glucose checks and arrange for short acting insulin to be given for coverage -patient at home on BID 70/30 insulin, will long acting glargine 10 units for now and this can be increased in later days as needed -holding home dose metformin while in the hospital to avoid having a potential lactic acidosis situation especially in context of recent surgery -holding off home dose Invokana for now Urinary tract infection suspected -patient with dysuria symptoms for a while even prior to surgery which can be attributable to Invokana -urine culture with E.coli which could be colonization versus specimen causing urinary tract infection -patient already to get post-op cefazolin x 2 doses -will therefore start ceftriaxone 1 gram daily on 08/03/19 for antibiotic coverage of urinary tract Agree with assessment and plan of other health issues as documented by physician prosthetic assistant Starting on 08/03/19, patient will be followed by my colleague as hospitalist medicine physician analytical consultant, Dr. Camargo History of Present Illness Reason for Consultation: Post op medical management Attending Physician: Laz Ortega, History of Present Illness Pt is 54 y/o F with PMH CAD, insulin dependent DM II, gastroparesis, HTN, HLD, chronic RBBB, depression, anxiety, obesity, thyroid cancer s/p surgery and post surgery hypothyroidism seen in medical consultation s/p anterior cervical discectomy and fusion C 6-C7 by Dr Ortega today. Post op pt reports some neck pain. Denies upper extremity pain or paresthesias. Reports is swallowing saliva without difficulty. Reports coughing with drinking water. Denies SOB, CP, nausea or vomiting. She states for past week week having dysuria, urinary frequency. States that has intermittent dysuria and urinary frequency which has been thought secondary to her Invokana. Denies flank pain, hematuria or fever. Denies V/D/C, THOMASON, dizziness, syncope, vision changes, orthopnea, palpitations, otalgia, rhinorrhea, abdominal pain, extremity weakness, extremity edema, rashes. Allergies Allergy/AdvReac Type Severity Reaction Status Date / Time adhesive tape Allergy Mild SKIN Verified 08/02/19 07:09 IRRITATION No Known Drug Allergies Allergy Verified 08/02/19 07:09 Home Medications Home Medications Medication Instructions Recorded Confirmed Type aspirin 81 mg PO QAM 02/18/19 08/02/19 History atorvastatin 80 mg PO QPM 02/18/19 08/02/19 History escitalopram oxalate 20 mg PO QAM 02/18/19 08/02/19 History levothyroxine 175 mcg PO HS 02/18/19 08/02/19 History lorazepam 1 - 2 mg PO HS PRN 02/18/19 08/02/19 History metformin 1,000 mg PO BID 02/18/19 08/02/19 History metoprolol succinate 25 mg PO QPM 02/18/19 08/02/19 History omeprazole 20 mg PO BID 02/18/19 08/02/19 History Humulin 70/30 U-100 Insulin 70 unit SUBCUT BID 03/27/19 08/02/19 History Invokana 200 mg PO QAM 03/27/19 08/02/19 History amlodipine 2.5 mg PO HS 03/27/19 08/02/19 History valacyclovir 1 gram tablet 1,000 mg PO QAM PRN 06/12/19 08/02/19 History bupropion HCl [Wellbutrin XL] 300 mg PO QAM 07/21/19 08/02/19 History gabapentin 200 mg PO HS 07/21/19 08/02/19 History Patient History Medical History Stroke (Chronic) 7 YEARS AGO (LEFT SIDE WEAKNESS/LEFT EYE DROOPING) Peripheral neuropathy (Chronic) Depression (Chronic) Tumor (Chronic) LEFT FEMUR (BENIGN) 2 TUMORS REMOVED Hypertension (Chronic) Restless leg syndrome (Chronic) Anxiety (Chronic) History of thyroid cancer (Chronic) Diabetes mellitus, type II (Chronic) Schwannoma (Chronic) REMOVED BY DR. GROSSMAN MARCH 2018 Myocardial Infarction 12 YEARS AGO (FOLLOWED BY DR. DODSON) VERBALIZED NO HEART CATH DONE Surgical History H/O blepharoplasty (Chronic) RT/LEFT History of tonsillectomy (Chronic) History of tooth extraction (Chronic) History of thyroidectomy, total (Chronic) History of cholecystectomy (Chronic) History of colonoscopy (Chronic) History of esophagogastroduodenoscopy (EGD) (Chronic) History of anesthesia reaction (Chronic) SLOW TO WAKE UP Family history of reaction to anesthesia (Chronic) BROTHER-NAUSEA Status post hysteroscopic ablation of endometrium (Chronic) S/P LASIK surgery of both eyes (Chronic) History of surgery (Chronic) robot-assist left thorascopic resection of schwannoma from left upper mediastinum. 03/16/2018. SANG. A line. No issues. Family History Grandmother (Maternal) Family history of diabetes mellitus Mother Ovarian cancer Social History Preferred Language: Togolese Communication Ability: Effective Shank Carrier Required: No Beliefs That Will Affect Care: None marital status: Current Living Situation: Significant Other Other Information That Helps Us Care for You: No Feels Safe at Home: Yes Safety Concerns: Feels Safe At This Time Smoking Status: Never smoker Do You Dip or Chew Tobacco: No ; Second Hand Exposure: No ; Tobacco Cessation Education Requested by Patient: No Hx Alcohol Use: No Hx Substance Use: No Review of Systems Review of Systems: All systems reviewed & are unremarkable except as noted in HPI & below Physical Exam Physical Exam: General: no distress, obese Head: normocephalic, atraumatic Eyes: PERRL, EOM's intact, conjunctiva non-injected, anicteric ENT: normal inspection external ears, nose, mucous membranes mildly dry Neck: supple, trachea midline, +dressing to anterior neck is dry and intact Lungs: clear, no respiratory distress, no wheezing/rhonchi/rales CV: RRR, no murmur, no pretibial edema Abd: normal BS, soft, non-tender Ext: no cyanosis, no calf tenderness; distal pulses palpable, sensation to light touch intact Neuro: A&O x 3, no focal deficits noted, normal affect Skin: warm, dry Results & Data Vital Signs (Past 12 Hours) Vital Signs Temp Pulse Pulse Resp BP Pulse Ox 08/02/19 11:37 70 15 99 08/02/19 10:35 36.4 C L 71 16 122/72 08/02/19 10:25 36.4 C L 73 16 132/70 08/02/19 10:15 74 16 137/82 95 08/02/19 10:05 70 14 138/76 08/02/19 09:55 72 14 146/79 H 99 08/02/19 09:45 76 16 145/86 H 96 08/02/19 09:35 36.2 C L 74 14 148/82 H 98 08/02/19 07:22 36.6 C 68 68 20 121/84 96
[2019-08-02] MEDS ORDERED: GLUCOSE 10 TABS/TUBE PO PRN (12:24)
[2019-08-02] MEDS ORDERED: GLUCAGON FOR INJ 1 MG VIAL SQ PRN (12:24)
[2019-08-02] MEDS ORDERED: CARBOHYDRATES FOR HYPOGLYCEMIA PO PRN (12:24)
[2019-08-02] MEDS ORDERED: DEXTROSE 50% 50 ML SYRINGE IV PRN (12:24)
[2019-08-02] MEDS ORDERED: GLUCOSE 40% GEL 15 GM TUBE PO PRN (12:24)
[2019-08-02] MEDS ORDERED: D5W AND 1/2NSS 1,000 ML IV SCH (12:30)
[2019-08-02] MEDS ORDERED: INSULIN GLARGINE SOLOSTAR 100 UNITS/ML 3 ML PEN SC SCH (13:00)
[2019-08-02] MEDS ORDERED: ALBUTEROL 0.5% NEB SOLN 2.5 MG/0.5 ML VIAL NEB PRN (15:17)
[2019-08-02] MEDS ORDERED: DiphenhydrAMINE HCL 50 MG/ML VIAL IV PRN (15:17)
[2019-08-02] MEDS ORDERED: INSULIN GLARGINE SOLOSTAR 100 UNITS/ML 3 ML PEN SC STA (15:28)
[2019-08-02] MEDS: HYDROmorphone INJ 0.5 MG/0.5 ML SYR IV PRN ×3 (15:59→23:12)
[2019-08-02] MEDS ORDERED: INSULIN ASPART 100 UNITS/ML 3 ML PEN SC SCH ×2 (16:30→22:00)
[2019-08-02] MEDS: METOPROLOL TARTRATE 1 MG/ML VIAL IV SCH ×2 (18:17→23:15)
[2019-08-02] MEDS: CEFAZOLIN 2000MG 2,000 MG/15 ML SYR IV SCH (18:19)
[2019-08-02] MEDS ORDERED: Nursing to Pharmacy Communication ONE (19:11)
[2019-08-02] MEDS ORDERED: CHLORASEPTIC 1.4% SOLN 180 ML BTL MT STA (20:27)
[2019-08-02] MEDS ORDERED: ATORVASTATIN 40 MG TAB PO SCH (21:00)
[2019-08-02] MEDS ORDERED: DOCUSATE SODIUM/SENNA 50/8.6MG TAB PO SCH (21:00)
[2019-08-02] MEDS ORDERED: PANTOprazole 40 MG TAB PO SCH (21:00)
[2019-08-02] MEDS ORDERED: LEVOTHYROXINE SODIUM 175 MCG TABLET PO SCH (21:00)
[2019-08-02] MEDS ORDERED: CHLORASEPTIC 1.4% SOLN 180 ML BTL MT PRN (21:00)
[2019-08-02] MEDS ORDERED: GABAPENTIN 100 MG CAP PO SCH (21:00)
[2019-08-02] MEDS ORDERED: AMLODIPINE BESYLATE 5 MG TAB PO SCH (21:00)
[2019-08-02] MEDS ORDERED: METOPROLOL SUCC 25MG EXT REL TAB PO SCH (21:00)
[2019-08-02] MEDS: DEXAMETHASONE SOD PHOSPHATE 8 MG in SYRINGE 0 ML IV SCH (21:26)
[2019-08-03] MEDS ORDERED: INSULIN ASPART 100 UNITS/ML 3 ML PEN SC ONE (00:15)
[2019-08-03] MEDS: CEFAZOLIN 2000MG 2,000 MG/15 ML SYR IV SCH (01:38)
[2019-08-03] MEDS ORDERED: HYDROmorphone INJ 1 MG/ML SYRINGE ONE (02:29)
[2019-08-03] MEDS: HYDROmorphone INJ 1 MG/ML SYRINGE IV PRN ×2 (02:30→06:14)
[2019-08-03 05:56] LABS: Hematocrit (blood only) 43.2 % (37-47); Hemoglobin 14.2 g/dL (12.0-16.0); Mean Corpuscular Hemoglobin 29.6 pg (25-34); Mean Corpuscular Hgb Conc 32.9 g/dL (32-36); Mean Corpuscular Volume 90.2 fL (80-100); Platelet Count 258 K/uL (130-400); RDW Standard Deviation 46.2 fL (36.4-46.3); Red Blood Count 4.79 M/uL (4.2-5.4); White Blood Count 8.74 K/uL (4.8-10.8)
[2019-08-03] MEDS ORDERED: POLYETHYLENE (MIRALAX) 17 GM PACK PO SCH (06:00)
[2019-08-03] MEDS ORDERED: INSULIN ASPART 100 UNITS/ML 3 ML PEN SC SCH ×3 (06:00→09:00)
[2019-08-03] MEDS: METOPROLOL TARTRATE 1 MG/ML VIAL IV SCH ×3 (06:16→18:44)
[2019-08-03] MEDS: DEXAMETHASONE SOD PHOSPHATE 8 MG in SYRINGE 0 ML IV SCH ×3 (06:22→22:03)
[2019-08-03] MEDS ORDERED: LEVOTHYROXINE SODIUM 175 MCG TABLET PO SCH (06:30)
[2019-08-03 06:34] LABS: Albumin Globulin Ratio 0.8 (0.9-2); Albumin Level 3.4 gm/dl (3.4-5.0); BUN Creatinine Ratio 20.8 (10-20); Bilirubin,Total 0.6 mg/dl (0.2-1); Calcium 8.2 mg/dl (8.5-10.1); Creatinine Clr Calc Pharmacy 80.1 ml/min; Est GFR (African American) 75.7; Est GFR (Non-African American) 65.3; Globulin 4.1 gm/dl (2.5-4.0); Potassium 4.1 mmol/L (3.5-5.1); Total Protein 7.5 gm/dl (6.4-8.2)
[2019-08-03] MEDS ORDERED: INSULIN GLARGINE SOLOSTAR 100 UNITS/ML 3 ML PEN SC SCH ×3 (06:45→18:00)
[2019-08-03 06:46] LABS: Beta-Hydroxybutyrate 1.79 mg/dl (0.2-2.81)
[2019-08-03] MEDS: SODIUM CHLORIDE 0.9% 1000ML 1,000 ML IV SCH (06:47)
[2019-08-03] MEDS ORDERED: PHARMACY GLYCEMIC MGMT CONSULT PRN (08:25)
[2019-08-03] MEDS: cefTRIAXone SODIUM 2,000 MG in DEXTROSE 5% 50 ML IV SCH (08:28)
[2019-08-03] MEDS: BuPROPion XL 150 MG TABCR PO SCH (08:29)
[2019-08-03] MEDS ORDERED: INSULIN GLARGINE SOLOSTAR 100 UNITS/ML 3 ML PEN SC STA (08:35)
--- NOTE | 2019-08-03 08:39 | Anesthesiology Progress Note ---
Date of Service August 03, 2019 Anesthesia Post Procedure Vital Signs Vital Signs: Temp Pulse Pulse Pulse Resp BP BP 08/03/19 07:26 36.9 C 68 20 133/72 08/03/19 07:11 71 18 08/03/19 06:16 72 08/03/19 05:00 37 C 76 20 128/65 08/03/19 03:37 76 16 08/03/19 03:04 36.6 C 74 20 117/70 08/03/19 00:54 36.8 C 70 18 125/68 08/02/19 23:15 72 74 16 08/02/19 23:06 37.1 C 70 18 112/73 08/02/19 21:07 36.9 C 68 19 08/02/19 19:05 70 18 08/02/19 18:55 36.9 C 65 20 08/02/19 18:17 72 125/76 08/02/19 17:44 36.9 C 67 16 08/02/19 15:23 69 18 08/02/19 15:00 36.8 C 72 16 08/02/19 13:50 36.8 C 71 16 08/02/19 12:50 36.8 C 70 16 08/02/19 11:50 36.5 C 74 16 08/02/19 11:37 70 15 08/02/19 11:20 36.7 C 83 16 08/02/19 10:50 36.7 C 71 16 08/02/19 10:35 36.4 C L 71 16 08/02/19 10:25 36.4 C L 73 16 08/02/19 10:15 74 16 08/02/19 10:05 70 14 08/02/19 09:55 72 14 08/02/19 09:45 76 16 08/02/19 09:35 36.2 C L 74 14 BP Pulse Ox 08/03/19 07:26 96 08/03/19 07:11 96 08/03/19 06:16 08/03/19 05:00 94 08/03/19 03:37 95 08/03/19 03:04 95 08/03/19 00:54 94 08/02/19 23:15 96 08/02/19 23:06 96 08/02/19 21:07 121/77 97 08/02/19 19:05 99 08/02/19 18:55 127/81 99 08/02/19 18:17 08/02/19 17:44 125/76 99 08/02/19 15:23 100 08/02/19 15:00 123/78 100 08/02/19 13:50 97 08/02/19 12:50 122/72 08/02/19 11:50 145/77 H 08/02/19 11:37 99 08/02/19 11:20 137/74 08/02/19 10:50 123/61 96 08/02/19 10:35 122/72 95 08/02/19 10:25 132/70 95 08/02/19 10:15 137/82 95 08/02/19 10:05 138/76 95 08/02/19 09:55 146/79 H 99 08/02/19 09:45 145/86 H 96 08/02/19 09:35 148/82 H 98 Pain Intensity Posterior Neck: Pain Intensity: 6 Notes Mental Status: alert / awake / arousable and participated in evaluation Patient Amnestic to Procedure: Yes Nausea / Vomiting: adequately controlled Pain: adequately controlled Airway Patency, RR, SpO2: stable & adequate BP & HR: stable & adequate Hydration State: stable & adequate Anesthetic Complications: no major complications apparent and Pt Satisfied with anesthetic care
[2019-08-03] MEDS ORDERED: ESCITALOPRAM OXALATE 20 MG TAB PO SCH (09:00)
[2019-08-03] MEDS ORDERED: ASPIRIN 81 MG ECTAB PO SCH (09:00)
--- NOTE | 2019-08-03 09:01 | Hospitalist Progress Note ---
Date of Service August 03, 2019 Assessment & Plan (1) History of cervical spinal surgery: Post op day# 1 S/P anterior cervical discectomy and fusion C6-C7 by Dr Ortega total SARAH drain output: 35ml -Post op with some coughing with drinking water. Had speech eval recommended npo -NPO -aspiration precautions -pain management per ortho -wound management per ortho -PT/OT as appropriate -DVT prophylaxis per ortho -H&H stable at 14/43, monitor H&H for acute blood loss anemia (2) UTI (urinary tract infection): C/O dysuria, urinary frequency. Pt on Invokana. Pre-op urine culture on 07/28/19 +e coli -Cont Rocephin (3) CAD (coronary artery disease): cardiac cath 2015 with distal narrowing LAD, circumflex and posterolateral RCA branch -Converted metoprolol succinate to Lopressor IV since NPO continue metoprolol -atorvastatin, aspirin was on hold since NPO (4) Hypertension: Stable -Metoprolol succinate po is converted to Lopressor IV since NPO -Amlodipine on hold (5) Diabetes mellitus, type II: A1c: 8.9 on 04/13/19 -Hold metformin, Invokana, home insulin 70/30 -Pt with elevated BSGs, initially received D5W as npo, and is receiving IV Decadron -Basal bolus insulin -Glycemic pharmacy to assist in glycemic control (6) History of thyroid cancer: S/P surgery TSH: 0.99 on 07/24/19 -Levothyroxine po converted to IV since NPO (7) Depression: -bupropion, escitalopram on hold currently while npo (8) GERD (gastroesophageal reflux disease): -Convert po PPI to IV H2 lorenzo as shortage of IV PPI (9) Obesity: BMI: 33.5 -Lifestyle modifications recommended DVT Prophylaxis -SCDs per ortho Pt was seen and care coordinated with Dr Camargo. See addendum Supervising Physician Co-Signing Physician Notes I have seen and examined the patient and have discussed the case with the provider above. I agree with the assessment and plan as stated. 54 yo F s/p ACDF with medicine consulted for assistance with post-operative medical management and help with dysphagia. Her dysphagia which was acute post- operatively, has improved so that she is managing her secretions and now small sips of water, which she was unable to do this morning. Appreciate Speech path attempts to see her to assess this today and track her progress closely. Etiologies are unclear and include but are not limited to swelling and erythema from manipulation during the surgery vs adverse reaction from anesthesia vs other. She is improved; will cont to monitor closely. No meds allowed yet. She denies any significant pain at this time, only sore throat which is managed with chloroseptic spray. Blood surgars are expected to improve after additional Lantus (40 Units) given this morning. Appreciate pharmacy assistance with glycemic management. Ideally will get this <180 for proper wound healing. She continues on the dexamethasone to help with swelling which adds to the hyperglycemia. Physical exam reveals stable vitals, good HR response to IV Lopressor, normal heart and lung exam and post-operative changes on her anterior neck with SARAH drain in place. Site well visualized with bandage change while I was in the room. No ecchymosis or erythema noted. Sutures are in place. Raman, DO Subjective Pt seen and examined. S/P POD #1 ACDF C6-C7. Lying in bed with C-Collar on. Pt reports some neck pain. Yesterday post op with noted coughing with drinking water and has been made NPO. She reports some intermittent coughing with swallow ing saliva overnight. Denies SOB, CP. Denies upper extremity paresthesias or pain. Reports chronic BLE paresthesias which are unchanged. No recorded fevers. No BM yesterday or today. Reports urinating and feels like emptying bladder, still with dysuria. Reports intermittent dysuria while on Invokana. Denies N/V, THOMASON, dizziness, syncope, vision changes, palpitations, abdominal pain, extremity edema, rashes. Review of Systems Review of Systems: All systems reviewed & are unremarkable except as noted in HPI & below Physical Exam Physical Exam: General: no acute distress, obese Head: normocephalic, atraumatic Eyes: conjunctiva non-injected, anicteric ENT: normal inspection external ears, nose, mucous membranes mildly dry Neck: C-Collar in place, supple, +dressing to anterior neck with blood drainage, SARAH drain intact Lungs: clear, no respiratory distress, no wheezing/rhonchi/rales CV: RRR, no murmur, no pretibial edema Abd: normal BS, soft, non-tender Ext: no cyanosis, no calf tenderness; Bilateral upper and lower extremities with distal pulses intact, brisk capillary refill, sensation to light touch intact, ROM intact Neuro: A&O x 3, no focal deficits noted, normal affect Skin: warm, dry Results & Data Vital Signs (Past 12 Hours) Vital Signs Temp Pulse Pulse Resp BP BP Pulse Ox 08/03/19 07:26 36.9 C 68 20 133/72 96 08/03/19 07:11 71 18 96 08/03/19 06:16 72 08/03/19 05:00 37 C 76 20 128/65 94 08/03/19 03:37 76 16 95 08/03/19 03:04 36.6 C 74 20 117/70 95 08/03/19 00:54 36.8 C 70 18 125/68 94 08/02/19 23:15 72 74 16 96 08/02/19 23:06 37.1 C 70 18 112/73 96 08/02/19 21:07 36.9 C 68 19 121/77 97 Laboratory Results Short CBC 07/28/19 08/03/19 08/03/19 Range/Units 09:57 05:22 05:22 WBC 8.74 (4.8-10.8) K/uL Hgb 14.2 (12.0-16.0) g/dL Hct 43.2 (37-47) % Plt Count 258 (130-400) K/uL Sodium 139 135 L (136-145) mmol/L BUN 16 20 H (7-18) mg/dl Creatinine 0.68 0.97 (0.6-1.2) mg/dl Glucose 215 H 332 H* (70-99) mg/dl Calcium 9.0 8.2 L (8.5-10.1) mg/dl BMP 08/03/19 05:22 Sodium 135 L Potassium 4.1 Chloride 97 L Carbon Dioxide 28 BUN 20 H Creatinine 0.97 Glucose 332 H* Calcium 8.2 L Liver Function 08/03/19 Range/Units 05:22 Total Bilirubin 0.6 (0.2-1) mg/dl AST 16 (15-37) U/L ALT 24 (12-78) U/L Alkaline Phosphatase 99 (45-117) U/L Albumin 3.4 (3.4-5.0) gm/dl
[2019-08-03] MEDS: LEVOTHYROXINE SODIUM 88 MCG in SYRINGE 0 ML IV SCH (10:25)
[2019-08-03] MEDS: HYDROmorphone INJ 0.5 MG/0.5 ML SYR IV PRN (10:26)
[2019-08-03] MEDS: INSULIN ASPART 100 UNITS/ML 3 ML PEN SC SCH ×3 (10:27→18:35)
[2019-08-03] MEDS ORDERED: FAMOTIDINE 20 MG TAB PO PRN (11:00)
--- NOTE | 2019-08-03 11:27 | Pharmacy Report ---
Pharmacy Glycemic Short Note 2 - Date of Service August 03, 2019 - Glycemic Short BSG Results (Last 24 hours): 08/02/19 08/02/19 08/02/19 12:09 16:41 22:01 Glucose POC Glucose 168 H 185 H 177 H 08/02/19 08/03/19 08/03/19 23:59 05:22 05:49 Glucose 332 H* POC Glucose 299 H 298 H 08/03/19 10:25 Glucose POC Glucose 271 H OUTPATIENT ANTIDIABETIC REGIMEN: * Humulin 70/30 70 units SQ BID * Invokana 200mg PO qAM * Metformin 1gm PO BID * HbA1c: pending with am labs ASSESSMENT: * Ms Resendez is a 54yo diabetic female POD#1 s/p spinal procedure with Dr Ortega yesterday. * Patient received 10 mg of IV dexamethasone in the OR and has ongoing DXM 8mg IV q8h ordered. This is expected to contribute to SIGNIFICANT steroid-induced hyperglycemia. * Patient is receiving IV Rocephin for UTI. * Patient remains NPO post-op per speech eval recommendations. * BSGs have been elevated post-op. * Basal insulin orders increased this morning, in addition to Novolog parameters being tightened. Will continue to adjust until BSGs are stable. * Regimen will require adjustment as steroid dose is tapered or discontinued. PLAN FOR INPATIENT GLYCEMIC CONTROL: * Hold outpatient oral diabetes medications * Basal insulin * Lantus 40 units SQ this morning * Lantus 50 units SQ BID starting with dinner tonight * Bolus insulin * NovoLog per scale ACHS or Q6hrs while NPO * Goal Range: Low 110 mg/dL - High 150 mg/dL * Correction Factor: 10 mg/dL/unit * Nutritional / Prandial insulin per carb ratio of 1 unit per 3 grams CHO consumed PLAN FOR DISCHARGE: * pending A1c results
--- NOTE | 2019-08-03 11:57 | Orthopedic Progress Note ---
Date of Service August 03, 2019 Assessment & Plan (1) Cervical stenosis of spinal canal: At this time she is being evaluated by speech pathology. She is n.p.o. until there evaluation. Hopefully we will be able to advance her diet and possible discharge home tomorrow. Present on Admission?: Yes Subjective Patient states her neck pain is controlled. She has no arm symptoms. She is on n.p.o. status. Physical Exam Physical Exam: On exam dressings in place collagen in place. She is excellent strength testing. Results & Data Vital Signs (Past 12 Hours) Vital Signs Temp Pulse Pulse Resp BP Pulse Ox 08/03/19 11:24 37 C 68 20 133/69 95 08/03/19 10:57 70 18 96 08/03/19 09:37 37.1 C 71 20 142/69 H 94 08/03/19 07:26 36.9 C 68 20 133/72 96 08/03/19 07:11 71 18 96 08/03/19 06:16 72 08/03/19 05:00 37 C 76 20 128/65 94 08/03/19 03:37 76 16 95 08/03/19 03:04 36.6 C 74 20 117/70 95 08/03/19 00:54 36.8 C 70 18 125/68 94
[2019-08-03] MEDS ORDERED: GABAPENTIN 100 MG CAP PO SCH (21:00)
[2019-08-03] MEDS ORDERED: ATORVASTATIN 40 MG TAB PO SCH (21:00)
[2019-08-03] MEDS ORDERED: AMLODIPINE BESYLATE 5 MG TAB PO SCH (21:00)
[2019-08-03] MEDS ORDERED: PANTOprazole 40 MG TAB PO SCH (21:00)
[2019-08-04] MEDS: HYDROmorphone INJ 1 MG/ML SYRINGE IV PRN (00:08)
[2019-08-04] MEDS: SODIUM CHLORIDE 0.9% 1000ML 1,000 ML IV SCH (00:08)
[2019-08-04] MEDS: METOPROLOL TARTRATE 1 MG/ML VIAL IV SCH ×4 (00:08→18:13)
[2019-08-04] MEDS: INSULIN ASPART 100 UNITS/ML 3 ML PEN SC SCH ×6 (00:13→22:04)
[2019-08-04 01:17] LABS: Basophils # (auto) 0.01 K/uL (0-0.2); Basophils % (auto) 0.1 %; Hematocrit (blood only) 42.1 % (37-47); Hemoglobin 13.7 g/dL (12.0-16.0); Immature Granulocytes # (auto) 0.11 K/uL (0.00-0.02); Immature Granulocytes % (auto) 0.7 %; Lymphocytes # (auto) 1.35 K/uL (1.2-3.4); Lymphocytes % (auto) 8.7 %; Mean Corpuscular Hemoglobin 28.9 pg (25-34); Mean Corpuscular Hgb Conc 32.5 g/dL (32-36); Mean Corpuscular Volume 88.8 fL (80-100); Mean Platelet Volume 9.9 fL (7.4-10.4); Monocytes # (auto) 0.52 K/uL (0.11-0.59); Monocytes % (auto) 3.4 %; Neutrophils # (auto) 13.47 K/uL (1.4-6.5); Neutrophils % (auto) 87.1 %; Platelet Count 276 K/uL (130-400); RDW Coefficient of Variation 13.9 % (11.5-14.5); RDW Standard Deviation 45.5 fL (36.4-46.3); Red Blood Count 4.74 M/uL (4.2-5.4); White Blood Count 15.46 K/uL (4.8-10.8)
[2019-08-04 01:31] LABS: Partial Thromboplastin Ratio 0.9; Partial Thromboplastin Time 25.1 Seconds (21.0-31.0)
[2019-08-04 01:36] LABS: Alanine Aminotransferase 21 U/L (12-78); Albumin Level 3.2 gm/dl (3.4-5.0); Aspartate Aminotransferase 17 U/L (15-37); BUN Creatinine Ratio 25.1 (10-20); Blood Urea Nitrogen 18 mg/dl (7-18); Calcium 8.1 mg/dl (8.5-10.1); Carbon Dioxide 29 mmol/L (21-32); Chloride 100 mmol/L (98-107); Est GFR (African American) 106.7; Est GFR (Non-African American) 92.1; Glucose 275 mg/dl (70-99); Lipase 44 U/L (73-393); Magnesium 1.8 mg/dl (1.8-2.4); Potassium 3.7 mmol/L (3.5-5.1); Sodium 137 mmol/L (136-145)
[2019-08-04 01:41] LABS: Albumin Globulin Ratio 0.8 (0.9-2); Alkaline Phosphatase 88 U/L (45-117); Bilirubin,Total 0.4 mg/dl (0.2-1); Total Protein 7.2 gm/dl (6.4-8.2); Troponin I < 0.015 ng/ml (0-0.045)
[2019-08-04] MEDS ORDERED: NSS + 20MEQ KCL 20 MEQ/1,000 ML BAG IV SCH (02:00)
[2019-08-04] MEDS ORDERED: MAGNESIUM SULFATE / D5W 1 GM/100 ML BAG IV ONE (02:00)
[2019-08-04] MEDS ORDERED: OPTIRAY 320 125ml IV PRN (02:30)
[2019-08-04] MEDS: DEXAMETHASONE SOD PHOSPHATE 8 MG in SYRINGE 0 ML IV SCH ×2 (06:21→14:52)
[2019-08-04] MEDS: HYDROmorphone INJ 0.5 MG/0.5 ML SYR IV PRN (06:22)
[2019-08-04 06:52] LABS: Estimated Average Glucose 203 mg/dl; Hemoglobin A1C 8.7 % (4.5-5.6)
--- NOTE | 2019-08-04 07:23 | CT Scan Report ---
CHEST CTA for PULMONARY ARTERIES CT DOSE: 737.07 mGy.cm HISTORY: Shortness of breath. TECHNIQUE: Multiaxial CT images of the chest were performed following the intravenous administration of contrast to evaluate the pulmonary arteries. Maximal intensity projection images were also obtaine d. A dose lowering technique was utilized adhering to the principles of ALARA. COMPARISON STUDY: Chest CT 03/29/2019. FINDINGS: Normal caliber thoracic aorta with no evidence for dissection. The heart is normal in size. No pleural or pericardial effusions. Small drainage catheter along the base of the right neck. Parti ally visualized cervical spinal fusion hardware is noted. Small amount of subcutaneous fat stranding and punctate foci of subcutaneous gas within the lower anterior neck. This is consistent with a posto perative changes. No filling defects within the pulmonary arteries to suggest pulmonary embolus. No s ignificant mediastinal or hilar lymphadenopathy. Normal esophagus. The visualized liver and spleen ar e unremarkable. No suspicious lytic are blastic osseous lesions. No pneumothorax. The central airways are patent. Bibasilar linear densities favor subsegmental atelectasis. IMPRESSION: 1. No evidence for pulmonary embolus. 2. Bibasilar linear densities are nonspecific but favor subsegmental atelectasis. 2. There is a small drainage catheter within the base of the right neck adjacent to the cervical spin al fusion hardware. This is consistent with a recent postoperative change. Electronically signed by: Elgin Mccoy M.D. 08/04/2019 7:22 AM
[2019-08-04] MEDS: cefTRIAXone SODIUM 2,000 MG in DEXTROSE 5% 50 ML IV SCH (08:55)
[2019-08-04] MEDS: BuPROPion XL 150 MG TABCR PO SCH (08:55)
[2019-08-04] MEDS: LEVOTHYROXINE SODIUM 88 MCG in SYRINGE 0 ML IV SCH (08:58)
[2019-08-04] MEDS ORDERED: INSULIN GLARGINE SOLOSTAR 100 UNITS/ML 3 ML PEN SC SCH ×2 (09:00→21:00)
[2019-08-04] MEDS ORDERED: bisacodyL 10 MG SUPP PR PRN (09:29)
--- NOTE | 2019-08-04 11:32 | Pharmacy Report ---
Pharmacy Glycemic Short Note 2 - Date of Service August 04, 2019 - Glycemic Short BSG Results (Last 24 hours): 08/03/19 08/03/19 08/04/19 14:33 18:15 00:00 Glucose POC Glucose 239 H 249 H 234 H 08/04/19 08/04/19 08/04/19 01:01 06:10 10:00 Glucose 275 H POC Glucose 259 H 290 H OUTPATIENT ANTIDIABETIC REGIMEN: * Humulin 70/30 70 units SQ BID * Invokana 200mg PO qAM * Metformin 1gm PO BID * HbA1c: 8.7% (08/04/19) ASSESSMENT: 08/04/19: * Still significant steroid-induced hyperglycemia today. * Basal insulin was increased this morning and Novolog parameters have been tightened once again. * If BSGs do not improve by this afternoon, would strongly consider adding an IV insulin infusion. * Patient remains NPO d/t concerns of aspiration. 08/03/19 * Ms Resendez is a 54yo diabetic female POD#1 s/p spinal procedure with Dr Ortega yesterday. * Patient received 10 mg of IV dexamethasone in the OR and has ongoing DXM 8mg IV q8h ordered. This is expected to contribute to SIGNIFICANT steroid-induced hyperglycemia. * Patient is receiving IV Rocephin for UTI. * Patient remains NPO post-op per speech eval recommendations. * BSGs have been elevated post-op. * Basal insulin orders increased this morning, in addition to Novolog parameters being tightened. Will continue to adjust until BSGs are stable. * Regimen will require adjustment as steroid dose is tapered or discontinued. PLAN FOR INPATIENT GLYCEMIC CONTROL: * Hold outpatient oral diabetes medications * Basal insulin * Lantus 65 units SQ BID, started this morning * Bolus insulin * NovoLog per scale q4h while NPO and until BSGs have resolved * Goal Range: Low 110 mg/dL - High 150 mg/dL * Correction Factor: 8 mg/dL/unit * Nutritional / Prandial insulin per carb ratio of 1 unit per 3 grams CHO consumed PLAN FOR DISCHARGE: * Patient's A1c (8.7%) indicates sub-optimal outpatient glycemic control for a 54yo. * Suspect that patient's insulin regimen requires adjustment on discharge, especially if she will be dc'd on steroids. * Recommend prompt f/u with outpatient provider to work toward optimizing A1c.
[2019-08-04] MEDS ORDERED: INSULIN HUMAN REGULAR PER UNIT 8 UNITS in SYRINGE 7.92 ML IV ONE (15:15)
--- NOTE | 2019-08-04 15:57 | Orthopedic Progress Note ---
Date of Service August 04, 2019 Assessment & Plan (1) Cervical stenosis of spinal canal: This time sure she is tolerating advance of diet reasonably well. If she continues is pattern we will discharge home tomorrow. I did stand down on the ENT consult she is improving. We can certainly pursue this in the future if necessary. Present on Admission?: Yes Subjective Patient's swelling is improving. Arm symptoms improved. Physical Exam Physical Exam: On exam the incision is clean dry and tract. The drain was removed without difficulty. She is good strength testing. She is tolerating a full liquid diet. Results & Data Vital Signs (Past 12 Hours) Vital Signs Temp Pulse Pulse Pulse Resp BP BP 08/04/19 15:26 36.7 C 56 L 19 118/65 08/04/19 15:13 62 18 08/04/19 11:32 36.4 C L 61 19 122/66 08/04/19 11:13 60 18 08/04/19 10:52 55 L 08/04/19 08:00 57 L 08/04/19 07:06 36.6 C 55 L 17 108/73 08/04/19 07:05 56 L 18 08/04/19 06:14 52 L Pulse Ox 08/04/19 15:26 93 08/04/19 15:13 96 08/04/19 11:32 92 08/04/19 11:13 97 08/04/19 10:52 08/04/19 08:00 08/04/19 07:06 97 08/04/19 07:05 97 08/04/19 06:14
--- NOTE | 2019-08-04 18:19 | Hospitalist Progress Note ---
Date of Service August 04, 2019 Assessment & Plan (1) History of cervical spinal surgery: Post op day# 2 S/P anterior cervical discectomy and fusion C6-C7 by Dr Ortega -pain management per ortho -wound management per ortho -PT/OT as appropriate -DVT prophylaxis per ortho Sore throat has improved and she is managing her secretions better. She is improved from a swallowing standpoint per Speech Pathology. Will transition her to PO and transfer her to the floor. (2) UTI (urinary tract infection): Rocephin changed to Macrobid (3) CAD (coronary artery disease): Nonobstructive disease that is medically managed. Cont holding aspirin until OK with Dr. Ortega, added Lipitor back onto regimen, converted Lopressor IV to Toprol XL. (4) Hypertension: at goal, cont current therapy. (5) Diabetes mellitus, type II: uncontrolled diabetes at baseline with A1C around 9. Now with steroids, this is even higher. Cont aggressive insulin administration for now. Will decide discharge plan once we see the glucose numbers nearer to that time and understand the plan for steroids going home. If steroids to be given going home, this should result in higher insulin needs. Appreciate pharmacy assistance with glucose management. (6) History of thyroid cancer: Cont home Synthroid. (7) Depression: restart Welbutrin and Lexapro per home regimen now. (8) GERD (gastroesophageal reflux disease): Stop ranitidine, cont protonix 40mg PO bID in place of home PPI and for ulcer prophylaxis prevention in setting of high dose steroid administration. (9) DVT prophylaxis: SCDs Full Code Dispo-poss home tomorrow, disposition per Dr. Ortega who is the attending physician. Mona Camargo DO [facility] Hospitalist Subjective pt doing well did have 5 minutes of chest pain and shortness of breath that was shortlived overnight while medications were being administered CTA was performed and negative trop was negative and this was trended this am and also negative. EKG did not reveal evidence of acute ischemia Pt reports diaphoresis since admission, which may have to do with the large amount of steroids she is receiving. glucose remains elevated she is improved from a swallowing standpoint and would like to advance her diet Review of Systems Review of Systems: All systems reviewed & are unremarkable except as noted in HPI & below Physical Exam Physical Exam: CONSTITUTIONAL: WNWD, vitals as above, generally well- appearing EYES: normal conjunctivae, no scleral icterus ENT: MMM, NECK: hard collar in place, +SARAH drain from neck RESPIRATORY: clear to auscultation bilaterally, no crackles, rales or wheezes, normal respiratory effort CARDIOVASCULAR: regular rate and rhythm, S1 and 2 heard without murmurs, gallops or rubs, no JVD, no peripheral edema GASTROINTESTINAL: soft, nontender, nondistended MUSCULOSKELETAL: strength 5/5 throughout, head is normocephalic and atraumatic SKIN: warm and dry, incision site to anterior neck covered with clean, dry gauze NEUROLOGIC: CN 2-12 grossly intact, normal cognition, no gross focal deficits. PSYCHIATRIC: alert cooperative and oriented to person, place and time. Results & Data Vital Signs (Past 12 Hours) Vital Signs Temp Pulse Pulse Pulse Resp BP BP 08/04/19 15:26 36.7 C 56 L 19 118/65 08/04/19 15:13 62 18 08/04/19 11:32 36.4 C L 61 19 122/66 08/04/19 11:13 60 18 08/04/19 10:52 55 L 08/04/19 08:00 57 L 08/04/19 07:06 36.6 C 55 L 17 108/73 08/04/19 07:05 56 L 18 08/04/19 06:14 52 L Pulse Ox 08/04/19 15:26 93 08/04/19 15:13 96 08/04/19 11:32 92 08/04/19 11:13 97 08/04/19 10:52 08/04/19 08:00 08/04/19 07:06 97 08/04/19 07:05 97 08/04/19 06:14 Laboratory Results Short CBC 08/04/19 Range/Units 01:01 WBC 15.46 H (4.8-10.8) K/uL Hgb 13.7 (12.0-16.0) g/dL Hct 42.1 (37-47) % Plt Count 276 (130-400) K/uL BMP 08/04/19 01:01 Sodium 137 Potassium 3.7 Chloride 100 Carbon Dioxide 29 BUN 18 Creatinine 0.73 Glucose 275 H Calcium 8.1 L Cardiac Enzymes 08/04/19 08/04/19 Range/Units 01:01 09:59 Troponin I < 0.015 < 0.015 (0-0.045) ng/ml Liver Function 08/04/19 Range/Units 01:01 Total Bilirubin 0.4 (0.2-1) mg/dl AST 17 (15-37) U/L ALT 21 (12-78) U/L Alkaline Phosphatase 88 (45-117) U/L Albumin 3.2 L (3.4-5.0) gm/dl Medications Administered Current Inpatient Medications Albuterol (Ventolin 0.5% 2.5mg/0.5ml) 2.5 mg NEB Q6R PRN PRN Reason: shortness of breath or wheezing Stop: 09/01/19 15:16 Bisacodyl (Dulcolax) 10 mg SD DAILY PRN PRN Reason: Constipation Stop: 09/03/19 09:28 Bupropion HCl (Wellbutrin-Xl) 300 mg PO QAM [facility] Stop: 09/02/19 08:59 Last Admin: 08/04/19 08:55 Dose: Not Given Documented by: Dextrose (Dextrose 50%) 25 - 50 ml IV UD PRN; Protocol PRN Reason: Hypoglycemia Protocol Stop: 09/01/19 12:23 Diphenhydramine HCl (Benadryl) 12.5 mg IV Q8H PRN PRN Reason: Allergy Symptoms Stop: 09/01/19 15:16 Glucagon (Glucagen) 1 mg SQ UD PRN; Protocol PRN Reason: Hypoglycemia Protocol Stop: 09/01/19 12:23 Glucose (Dex4 Glucose) 4 - 8 tabs PO UD PRN; Protocol PRN Reason: Hypoglycemia Protocol Stop: 09/01/19 12:23 Glucose (Glucose 40%) 15 - 30 gm PO UD PRN; Protocol PRN Reason: Hypoglycemia Protocol Stop: 09/01/19 12:23 Hydromorphone HCl (Dilaudid) 0.5 mg IV Q3H PRN PRN Reason: moderate pain (scale 4-6) Stop: 08/16/19 11:13 Last Admin: 08/04/19 06:22 Dose: 0.5 mg Documented by: Hydromorphone HCl (Dilaudid) 1 mg IV Q3H PRN PRN Reason: SEVERE pain (scale 7-10) Stop: 08/17/19 03:03 Last Admin: 08/04/19 00:08 Dose: 1 mg Documented by: Acetaminophen (Ofirmev) 1,000 mg in 100 mls @ 400 mls/hr IV Q8H PRN PRN Reason: pain rating 1-3 Stop: 09/01/19 11:13 Last Infusion: 08/03/19 03:07 Dose: Infused Documented by: Dexamethasone Sodium Phosphate (8 mg/ Syringe) 2 mls @ 1 mls/min IV NOW PRN PRN Reason: stridor Stop: 09/01/19 11:13 Influenza Virus Vaccine Quadrival (Flu Vaccine, Do Not Administer) 1 ea N/A PRN PRN PRN Reason: Notification Stop: 09/01/19 11:13 Insulin Aspart (Novolog Flexpen) 0 units SC Q4H [facility]; Protocol Stop: 09/03/19 09:59 Last Admin: 08/04/19 14:51 Dose: 15 units Documented by: Insulin Glargine (Lantus Solostar Pen) 65 units SC BID [facility]; Protocol Stop: 09/03/19 08:59 Last Admin: 08/04/19 08:56 Dose: 65 units Documented by: Ioversol (Optiray 320 125ml) 116 ml IV ONCE PRN PRN Reason: Interaction Checking Stop: 08/08/19 02:29 Last Admin: 08/04/19 02:30 Dose: 1 ml Documented by: Levothyroxine Sodium (Synthroid) 175 mcg PO DAILYBB [facility] Stop: 09/04/19 06:29 Metoprolol Succinate (Toprol Xl) 25 mg PO QAM [facility] Stop: 09/04/19 08:59 Miscellaneous Information (Consult Glycemic Management Pharmacy) 1 ea N/A UD PRN PRN Reason: Consult Stop: 09/02/19 08:24 Naloxone HCl (Narcan) 0.1 mg IV Q5M PRN PRN Reason: Oversedation/respiratory dep Stop: 09/01/19 11:13 Nitrofurantoin Macrocrystals (Macrobid) 100 mg PO BID [facility]; Protocol Stop: 08/09/19 20:59 Ondansetron HCl (Zofran) 4 mg IV Q6H PRN PRN Reason: Nausea &/or Vomiting Stop: 09/01/19 11:13 Last Admin: 08/04/19 00:16 Dose: 4 mg Documented by: Pantoprazole Sodium (Protonix) 40 mg PO BID [facility] Stop: 09/03/19 20:59 Phenol (Chloraseptic 1.4% [place]) 1 sprays MT Q12H PRN PRN Reason: Sore Throat Stop: 09/01/19 20:59 Pneumococcal Polyvalent Vaccine (Pneumococcal Vacc, Do Not Administer) 1 ea N/A PRN PRN PRN Reason: Notification Stop: 09/01/19 11:13
[2019-08-04] MEDS: NITROFURANTOIN MONOHYDRATE 100 MG CAP PO SCH (20:41)
[2019-08-04] MEDS: PANTOprazole 40 MG TAB PO SCH (20:41)
[2019-08-04] MEDS ORDERED: ATORVASTATIN 40 MG TAB PO SCH (21:00)
[2019-08-05] MEDS: INSULIN ASPART 100 UNITS/ML 3 ML PEN SC SCH ×2 (02:30→06:06)
[2019-08-05] MEDS ORDERED: LEVOTHYROXINE SODIUM 175 MCG TABLET PO SCH (06:30)
--- NOTE | 2019-08-05 08:30 | Orthopedic Progress Note ---
Date of Service August 05, 2019 Assessment & Plan (1) History of cervical spinal surgery: She is continued to improve. We will discharge her home today. I have stressed a soft diet. Other restrictions have been reviewed. We will continue usage of [place] J collar at all times gait with the exception of bathing eating Supervising Physician Co-Signing Physician Notes Dr. Laz Ortega Subjective Overall doing much better. Tolerating a soft diet. Denies shortness of breath. Is controlling her secretions. Denies radicular arm pain. Neck pain control. She is up and ambulatory. Review of Systems Review of Systems: All systems reviewed & are unremarkable except as noted in HPI & below Physical Exam Physical Exam: She sitting up in bed. Alert and oriented x3. No obvious distress. She is satting 96% on room air. [place] J collar is intact. Dressing is clean dry and intact. Speech is appropriate. 5/5 bilateral biceps, triceps, deltoid. Calves soft nontender bilaterally. Results & Data Vital Signs (Past 12 Hours) Vital Signs Temp Pulse Resp BP Pulse Ox 08/05/19 07:37 61 16 96 08/05/19 07:18 36.5 C 62 18 128/74 93 08/05/19 03:17 57 L 18 92 08/05/19 03:13 36.4 C L 56 L 14 132/76 92 08/05/19 00:05 36.5 C 55 L 14 134/78 95 08/04/19 23:20 64 14 97 08/04/19 21:44 97 08/04/19 21:38 88 L
--- NOTE | 2019-08-05 08:36 | Discharge Summary ---
Date of Service August 05, 2019 Admission HPI Per Admitting Provider This is a 54-year-old female presents with chronic persistent arm pain after failing extensive course of nonoperative care is here for surgical intervention. Admission Exam (Per Admitting) Constitutional WD/WN, vitals as above well developed Eyes normal visual staley by confrontation ENMT external ear and nose normal, oropharynx normal Neck normal visual inspection Thyroidectomy scar. Respiratory normal respiratory effort Cardiovascular Rate/Rhythm: regular rate Chest (Breasts) Chest: normal inspection of chest Gastrointestinal (Abdomen) Inspection/Auscultation: normal bowel sounds Musculoskeletal no cyanosis or clubbing, extremities motor strength 5/5 Spine: + cervical collar present Skin no rashes, warm and dry Neurologic patellar DTR's 2+ bilat, sensation intact normal touch/pain/proprioception and CN's II-XI intact bilaterally Psychiatric A+Ox3, euthymic affect Discharge Data Consultations 08/02/19 11:14 Consult Hospitalist Routine Procedures Performed Operation Date: 08/02/19 07:45 Actual Procedures p C6-C7 Anterior Cervical Discectomy and Fusion with Spinal Cord Monitoring(Not Applicable) - Laz Ortega DO Hospital Course (1) History of cervical spinal surgery: Patient postoperative day has struggled with some dysphagia. She was transferred to the ICU for observation. Speech eval was performed and we are following recommendations. On the evening of postoperative day 2 she felt had some chest pressure. CT the chest was performed and ruled out PE. This has since resolved. She is being discharged home on postoperative day 3. She is handling her secretions. She is following a soft diet. Pain is controlled.She was found to have a UTI which she is being sent home on Macrobid p.o. Discharge Instructions ACTIVITY RECOMMENDATIONS: SELF CARE INSTRUCTIONS AFTER CERVICAL FUSIONS 1. No smoking. Smoking drastically decreases the chance of a solid fusion. 2. No bending, lifting more than 5 pounds, or twisting (roll like a log when turning in bed). 3. You may shower 3 days after surgery. Thoroughly dry wound. Do not soak in the tub. 4. Cervical collar: Must be worn at all times including sleeping. You may remove the brace only to bath, eat and if you are sitting in a recliner. 5. Please walk as much as you can for exercise. Gradually increase the distance that you walk as your endurance increases. SPECIAL CARE INSTRUCTIONS: VERY IMPORTANT TO READ AND REVIEW A. Do not take any anti-inflammatory medications (i.e. Indocin, Advil, Aspirin, Naprosyn, Aleve, Motrin, etc.) as these may inhibit the chance of a solid fusion. Tylenol is okay to take. B. Your surgical incision has been closed with a cosmetic suture under the skin that will dissolve in about 6 weeks. In 14 days, you can use a pair of clean scissors and cut the suture that is left outside of the skin at the ends of your incision. C. Complications are uncommon, but please contact us if you have any signs or symptoms of: 1. wound infection (fever higher than 102.5 degrees F, redness, separation of wound, drainage, or increasing pain from the incision) 2. blood clots in legs (pain, swelling, redness and warmth in legs) 3. urinary tract infection (fever higher than 102.5 degrees, burning upon urination or increased frequency of urination) 4. nerve problems (inability to walk on your toes or heels, numbness, loss of bowel or bladder control) 5. any other symptoms that concern you. D. Please call the office at if you have any concerns or questions about your operation or recovery. MANAGING PAIN AFTER SPINAL SURGERY 1. Narcotic medication is intended for short-term use and will be provided for surgical pain. Surgical pain usually lasts for a period of 4-6 weeks. Narcotic medication includes Percocet, Vicodin, Darvocet, Tylenol #3 or Lortab. 2. Longer-term pain is more appropriately treated with non-narcotic medication such as Tylenol ES. 3. Muscle spasm is not appropriately treated with narcotics. Muscle relaxers such as Soma, Flexeril or Skelaxin can be used along with Tylenol ES. 4. Remember that we all live with some "aches and pains". This is not unusual or uncommon after an injury or as we get older. 5. We will provide appropriate medication within the normal guidelines of their prescribed use. We will also be very cautious and aware of potential abuse and extended duration of patients' medication needs. 6. Please allow 2-3 days to process refills. Prescriptions will not be mailed but must be picked up at the office. FOLLOW UP VISIT: Keep your scheduled follow-up appointment. Any questions, please call the office at . Supervising Physician Co-Signing Physician Notes Dr. Laz Ortega
[2019-08-05] MEDS ORDERED: METOPROLOL SUCC 25MG EXT REL TAB PO SCH (09:00)
[2019-08-05] MEDS ORDERED: INSULIN GLARGINE SOLOSTAR 100 UNITS/ML 3 ML PEN SC SCH (09:00)
--- NOTE | 2019-08-05 09:59 | Pharmacy Report ---
Pharmacy Glycemic Short Note 2 - Date of Service August 05, 2019 - Glycemic Short BSG Results (Last 24 hours): 08/04/19 08/04/19 08/04/19 10:00 12:07 14:48 POC Glucose 290 H 268 H 260 H 08/04/19 08/04/19 08/05/19 18:13 21:39 02:00 POC Glucose 202 H 164 H 131 H 08/05/19 08/05/19 05:58 08:21 POC Glucose 114 H 130 H OUTPATIENT ANTIDIABETIC REGIMEN: * Humulin 70/30 70 units SQ BID * Invokana 200mg PO qAM - Of note, patient reported to CDE that she did not take Invokana for a while due to running out of medication. She resumed this medication shortly before admission. * Metformin 1gm PO BID * HbA1c: 8.7% (08/04/19) ASSESSMENT: 08/05/19: * Dramatic improvement in BSGs noted this morning after IV dexamethasone was discontinued on 08/04 PM. Due to the long half life of dexamethasone, patients typically continue to require aggressive bolus insulin for ~24 hours. * Will conservatively loosen Novolog correction factor and carb ratio. * Will decrease Lantus dose based on home usage of ~140 units/day (50% of this regimen given as basal insulin equals 35 units BID) 08/04/19: * Still significant steroid-induced hyperglycemia today. * Basal insulin was increased this morning and Novolog parameters have been tightened once again. * If BSGs do not improve by this afternoon, would strongly consider adding an IV insulin infusion. * Patient remains NPO d/t concerns of aspiration. 08/03/19 * Ms Resendez is a 54yo diabetic female POD#1 s/p spinal procedure with Dr Ortega yesterday. * Patient received 10 mg of IV dexamethasone in the OR and has ongoing DXM 8mg IV q8h ordered. This is expected to contribute to SIGNIFICANT steroid-induced hyperglycemia. * Patient is receiving IV Rocephin for UTI. * Patient remains NPO post-op per speech eval recommendations. * BSGs have been elevated post-op. * Basal insulin orders increased this morning, in addition to Novolog parameters being tightened. Will continue to adjust until BSGs are stable. * Regimen will require adjustment as steroid dose is tapered or discontinued. PLAN FOR INPATIENT GLYCEMIC CONTROL: * Resume metformin 1000 mg PO BID * Basal insulin - decrease * Lantus per scale SQ BID * 35 units for BSG less than 140 mg/dL * 45 units for BSG 140 mg/dL or more * Bolus insulin - loosen * NovoLog per scale q4h while NPO and until BSGs have resolved * Goal Range: Low 110 mg/dL - High 150 mg/dL * Correction Factor: 12 mg/dL/unit * Nutritional / Prandial insulin per carb ratio of 1 unit per 4 grams CHO consumed PLAN FOR DISCHARGE: * Patient's A1c (8.7%) indicates sub-optimal outpatient glycemic control for a 54yo. * Recommend continuation of metformin and invokana. * Recommend increasing Humulin 70/30 to 80 units SQ BID * Recommend prompt f/u with outpatient provider to work toward optimizing A1c.
[2019-08-05] MEDS: NITROFURANTOIN MONOHYDRATE 100 MG CAP PO SCH (10:04)
[2019-08-05] MEDS: PANTOprazole 40 MG TAB PO SCH (10:05)
[2019-08-05] MEDS: BuPROPion XL 150 MG TABCR PO SCH (11:13)
[2019-08-05] MEDS ORDERED: INSULIN ASPART 100 UNITS/ML 3 ML PEN SC SCH (11:30)
== END 2019-08-05 11:21 | disposition home or self-care (01) | DRG 472 ==
LOC: ASU 06:45 → 3E 09:29 → 2E 15:01 → 3E 08-04 18:51

== ENCOUNTER 2021-03-11 16:10 | Inpatient (IN) ==
[2021-03-11] MEDS ORDERED: LORazepam 1 MG/2 ML VIAL IV STA (16:25)
--- NOTE | 2021-03-11 16:52 | CT Scan Report ---
CT head/brain wo con CLINICAL HISTORY: Headache COMPARISON STUDY: Noncontrast head CT dated 05/04/2017, MRI the brain dated 05/04/2017 TECHNIQUE: Axial CT of the brain is performed from the vertex to the skull base. IV contrast was not administered for this examination. A dose lowering technique was utilized adhering to the principles of ALARA. CT DOSE: 729.78 mGycm FINDINGS: No intra or extra-axial mass lesions are visualized. There is no CT evidence of acute cortical infarc tion. There is no evidence of midline shift. There is no acute hemorrhage. No calvarial fractures ar e visualized. There is no evidence of pathologic ventricular dilatation. There is no evidence of acute sinusitis IMPRESSION: No acute intracranial findings ACT 112: Negative or not required by law. Electronically signed by: Olu Agosto M.D. 03/11/2021 4:51 PM
[2021-03-11 17:45] LABS: Appearance Urine Clear (Clear); Bacteria Urine Automated Negative (Negative); Bilirubin Urine Negative (Negative); Blood Urine Negative (Negative); Color Urine Yellow; Epithelial Cell Urine Auto >30 /lpf (0-5); Glucose Urine UA Negative (Negative); Ketones Urine Trace (Negative); Leukocyte Esterase Urine Trace (Negative); Nitrite Urine Negative (Negative); Protein Urine Negative (Negative); RBC Urine Automated 0-4 /hpf (0-4); Specific Gravity Urine 1.018 (1.000-1.030); Urobilinogen Urine Negative (Negative)
[2021-03-11 17:45] LABS: Basophils # (auto) 0.05 K/uL (0-0.2); Basophils % (auto) 0.5 %; Eosinophils # (auto) 0.18 K/uL (0-0.5); Eosinophils % (auto) 1.7 %; Hematocrit (blood only) 42.7 % (37-47); Hemoglobin 14.1 g/dL (12.0-16.0); Immature Granulocytes # (auto) 0.02 K/uL (0.00-0.02); Immature Granulocytes % (auto) 0.2 %; Lymphocytes # (auto) 3.09 K/uL (1.2-3.4); Lymphocytes % (auto) 29.1 %; Mean Corpuscular Hemoglobin 28.3 pg (25-34); Mean Corpuscular Volume 85.7 fL (80-100); Monocytes # (auto) 1.02 K/uL (0.11-0.59); Monocytes % (auto) 9.6 %; Neutrophils # (auto) 6.26 K/uL (1.4-6.5); Neutrophils % (auto) 58.9 %; Platelet Count 296 K/uL (130-400); RDW Coefficient of Variation 13.5 % (11.5-14.5); RDW Standard Deviation 42.2 fL (36.4-46.3); Red Blood Count 4.98 M/uL (4.2-5.4); White Blood Count 10.62 K/uL (4.8-10.8)
[2021-03-11 18:03] LABS: Amphetamines+Metham, Urine Neg (Neg); Barbiturates, Urine Neg (Neg); Benzodiazepine, Urine Neg (Neg); Cocaine, Urine Neg (Neg); MDMA (Ecstacy), Urine Neg (Neg); Methadone, Urine Neg (Neg); Opiate, Urine Neg (Neg); Phencyclidine, Urine Neg (Neg)
[2021-03-11 18:16] LABS: BUN Creatinine Ratio 19.4 (10-20); Bilirubin,Total 1.4 mg/dl (0.2-1); Calcium 7.8 mg/dl (8.5-10.1); Creatinine Clr Calc Pharmacy 76.4 ml/min; Est GFR (African American) 75.6; Est GFR (Non-African American) 65.2; Globulin 4.1 gm/dl (2.5-4.0); Potassium 4.3 mmol/L (3.5-5.1); Total Protein 8.1 gm/dl (6.4-8.2)
[2021-03-11 18:22] LABS: Acetaminophen < 2 ug/ml (10-30); Salicylate < 1.7 mg/dl (2.8-20)
[2021-03-11 18:27] LABS: Thyroid Stimulating Hormone 0.084 uIu/ml (0.300-4.500)
[2021-03-11 18:39] LABS: T4 Free Thyroxine 1.84 ng/dl (0.8-1.6)
--- NOTE | 2021-03-11 20:20 | Emergency Department Note ---
History of Present Illness General Chief complaint: Mental Health Evaluation Stated complaint: MHID Time Seen by Provider: 03/11/21 16:15 Source: patient and family (Daughter at bedside) History of Present Illness Provider complaint: Mental health evaluation. Onset (ago): day(s) 2 56-year-old female presents emergency department for mental health evaluation. Patient is accompanied by her daughter. Daughter is providing history. Lupe cross is a nurse at this facility. The daughter states that the patient recently lost her spouse. The daughter reports that the patient has been having a tough time dealing with this. The daughter reports she had to go to work today when she came home the patient was having a "mental breakdown". Patient reports she is suicidal. The patient reports that she did take extra pills but she is not sure which which ones. Patient denies any homicidal ideation. No access to firearms. Home Medications Medication Instructions Recorded Confirmed Type aspirin 81 mg PO QAM 02/18/19 03/11/21 History atorvastatin 80 mg PO QPM 02/18/19 03/11/21 History escitalopram oxalate 40 mg PO QAM 02/18/19 03/11/21 History levothyroxine 175 mcg PO HS 02/18/19 03/11/21 History lorazepam 1 - 2 mg PO HS PRN 02/18/19 03/11/21 History metformin 1,000 mg PO BID 02/18/19 03/11/21 History metoprolol succinate 25 mg PO QPM 02/18/19 03/11/21 History omeprazole 20 mg PO BID 02/18/19 03/11/21 History Humulin 70/30 U-100 Insulin 100 unit SUBCUT HS 03/27/19 03/11/21 History amlodipine 2.5 mg PO HS 03/27/19 03/11/21 History valacyclovir 1 gram tablet 1,000 mg PO QAM PRN 06/12/19 03/11/21 History gabapentin 100 mg PO TID 07/21/19 03/11/21 History Allergies Allergy/AdvReac Type Severity Reaction Status Date / Time adhesive tape Allergy Mild SKIN Verified 09/27/20 12:50 IRRITATION Past Med/Surg History Medical History (Updated 03/12/21 @ 01:09 by Justen Galeano) Anxiety Benign neoplasm of vulva of clitoris Depression Diabetes mellitus, type II History of thyroid cancer Hypertension Myocardial Infarction 12 YEARS AGO (FOLLOWED BY DR. DODSON) VERBALIZED NO HEART CATH DONE Peripheral neuropathy Restless leg syndrome Schwannoma REMOVED BY DR. GROSSMAN MARCH 2018 Stroke 7 YEARS AGO (LEFT SIDE WEAKNESS/LEFT EYE DROOPING) Tumor LEFT FEMUR (BENIGN) 2 TUMORS REMOVED Vulvitis Surgical History Family history of reaction to anesthesia BROTHER-NAUSEA H/O blepharoplasty RT/LEFT History of anesthesia reaction SLOW TO WAKE UP History of cholecystectomy History of colonoscopy History of esophagogastroduodenoscopy (EGD) History of surgery robot-assist left thorascopic resection of schwannoma from left upper mediastinum. 03/16/2018. SANG. A line. No issues. History of thyroidectomy, total History of tonsillectomy History of tooth extraction S/P LASIK surgery of both eyes Status post hysteroscopic ablation of endometrium Family History Grandmother (Maternal) Family history of diabetes mellitus Mother Ovarian cancer Social History Smoking Status: Never smoker Second Hand Exposure: No; Hx Alcohol Use: No Hx Substance Use: No Preferred Language: Polish Communication Ability: Effective Rehabilitation Inspector Required: No Beliefs That Will Affect Care: None marital status: Current Living Situation: Significant Other Feels Safe at Home: Yes Assistive Devices: Denture - Upper, Denture - Lower and Glasses Review of Systems A total of 10 systems reviewed and were otherwise negative Physical Exam Vital Signs Vital Signs - 24 hr 03/11/21 16:06 03/11/21 20:18 Temperature 36.6 C Temperature Source Oral Pulse Rate 80 Pulse Rate [Left Finger] 62 Respiratory Rate 18 16 Respiratory Effort / Characteristics Non-Labored Spontaneous Respiratory Depth Normal Respiratory Pattern Regular Blood Pressure 120/87 Blood Pressure [Left Arm] 122/64 Blood Pressure Mean 98 Blood Pressure Mean [Left Arm] 83 Pulse Oximetry 92 100 Oxygen Delivery Method Room Air Sepsis Recent Fever Within 48 Hours No Sepsis New/Unexplained Change in Mental Status No Sepsis Action Taken by Nursing No Action Required Physical Exam HENT: Exam performed. -Head: Normocephalic and atraumatic. -Right Ear: External ear normal. No mastoid tenderness. -Left Ear: External ear normal. No mastoid tenderness. -Mouth/Throat: The oropharynx is clear and moist. No trismus in the jaw. No dental abscesses or uvula swelling. No oropharyngeal exudate or tonsillar abscesses. EYES: Conjunctivae and EOM are normal. Pupils are equal, round, and reactive to light. Right eye exhibits no discharge. Left eye exhibits no discharge. No scleral icterus. NECK: Normal range of motion. Neck supple. No JVD present. No spinous process tenderness present. No carotid bruit present. No rigidity. No tracheal deviation and normal range of motion present. No Brudzinski's sign and no Kernig's sign noted. CV: Normal rate, regular rhythm, normal heart sounds and intact distal pulses. There is no peripheral edema. Palpable radial pulses bue. PULM/CHEST: Effort normal and breath sounds normal. No respiratory distress. No stridor. She has no wheezes. She has no rales. -Chest Wall: She exhibits no tenderness. ABD: The abdomen is soft. Bowel sounds are normal. She has no distension. No mass is present. There is no tenderness. There is no rebound, no guarding, no Marcial's sign and no tenderness at McBurney's point. Rovsig negative MUSC/SKEL: Normal range of motion. There is no peripheral edema, tenderness or deformity. LYMPH: No cervical adenopathy. NEURO: Motor and sensation grossly intact. SKIN: Skin is warm and dry. She is not diaphoretic. PSYCH: Patient is crying and tremulous. Suicidal ideation. Course Course 161: The patient was evaluated in room A6. A complete history and physical exam was perfo 1730: Vital signs stable. Patient is more calm after receiving Ativan. Patient medically cleared. Awaiting evaluation by psychiatric director of casework department. Patient placed in observation at this time. 2129: Patient admitted to 3 S. Administered Medications Insulin Aspart (Insulin Aspart 100 Units/Ml 3 Ml Pen) 0 units SC ACHS WILLIAM Stop: 04/11/21 00:29 Last Admin: 03/12/21 00:40 Dose: Not Given Documented by: [id number] Discontinued Medications Lorazepam (Ativan) 1 mg in 2 mls @ 2 mls/min IV NOW STA Stop: 03/11/21 16:26 Last Admin: 03/11/21 17:34 Dose: 2 mls/min Documented by: [id number] Insulin Glargine (Insulin Glargine Solostar 100 Units/Ml 3 Ml Pen) 15 units SC ONE ONE Stop: 03/12/21 00:31 Last Admin: 03/12/21 00:41 Dose: 15 units Documented by: [id number] Cosigned by: [id number] Medical Decision Making Laboratory Data Result diagrams: 03/11/21 17:32 03/11/21 17:32 Lab Results 03/11/21 03/11/21 03/11/21 Range/Units 16:57 16:57 17:08 WBC (4.8-10.8) K/uL RBC (4.2-5.4) M/uL Hgb (12.0-16.0) g/dL Hct (37-47) % MCV (80-100) fL MCH (25-34) pg MCHC (32-36) g/dL RDW Std Deviation (36.4-46.3) fL RDW Coeff of Daphney (11.5-14.5) % Plt Count (130-400) K/uL MPV (7.4-10.4) fL Immature Gran % (Auto) % Neut % (Auto) % Lymph % (Auto) % [place] % (Auto) % Eos % (Auto) % Baso % (Auto) % Neut # (Auto) (1.4-6.5) K/uL Lymph # (Auto) (1.2-3.4) K/uL [place] # (Auto) (0.11-0.59) K/uL Eos # (Auto) (0-0.5) K/uL Baso # (Auto) (0-0.2) K/uL Immature Gran # (Auto) (0.00-0.02) K/uL Sodium (136-145) mmol/L Potassium (3.5-5.1) mmol/L Chloride (98-107) mmol/L Carbon Dioxide (21-32) mmol/L Anion Gap (3-11) BUN (7-18) mg/dl Creatinine (0.6-1.2) mg/dl Est Cr Clr Drug Dosing ml/min Est GFR ( Amer) Est GFR (Non-Af Amer) BUN/Creatinine Ratio (10-20) Glucose (70-99) mg/dl POC Glucose (70-99) mg/dl Calcium (8.5-10.1) mg/dl Total Bilirubin (0.2-1) mg/dl AST (15-37) U/L ALT (12-78) U/L Alkaline Phosphatase (45-117) U/L Total Protein (6.4-8.2) gm/dl Albumin (3.4-5.0) gm/dl Globulin (2.5-4.0) gm/dl Albumin/Globulin Ratio (0.9-2) TSH (0.300-4.500) uIu/ml Free T4 (0.8-1.6) ng/dl Urine Color Yellow Urine Appearance Clear (Clear) Urine pH 5.0 (4.5-7.5) Ur Specific [place] 1.018 (1.000-1.030) Urine Protein Negative (Negative) Urine Glucose (UA) Negative (Negative) Urine Ketones Trace H (Negative) Urine Blood Negative (Negative) Urine Nitrite Negative (Negative) Urine Bilirubin Negative (Negative) Urine Urobilinogen Negative (Negative) Ur Leukocyte Esterase Trace H (Negative) Urine WBC (Auto) 5-10 H (0-5) /hpf Urine RBC (Auto) 0-4 (0-4) /hpf U Hyaline Cast (Auto) 1-5 (0-5) /lpf U Epithel Cells (Auto) >30 H (0-5) /lpf Urine Bacteria (Auto) Negative (Negative) Ur Renal Epithelial Cell Not Reportable Salicylates (2.8-20) mg/dl Urine Opiates Screen (Neg) Ur Methadone, Qual (Neg) Acetaminophen (10-30) ug/ml Urine Barbiturates (Neg) Ur Phencyclidine (PCP) (Neg) U Amphetamin/Meth Scrn (Neg) MDMA (Ecstasy) Screen (Neg) U Benzodiazepines Scrn (Neg) Ur Cocaine Metabolite (Neg) U Marijuana (THC) Screen (Neg) Ethyl Alcohol mg/dL (0-3) mg/dl COVID-19 Eval Order Covid19 IDNow atMFLC SARS-CoV-2, RNA, NAAT NEGATIVE (NEGATIVE) 03/11/21 03/11/21 03/11/21 Range/Units 17:08 17:18 17:32 WBC 10.62 (4.8-10.8) K/uL RBC 4.98 (4.2-5.4) M/uL Hgb 14.1 (12.0-16.0) g/dL Hct 42.7 (37-47) % MCV 85.7 (80-100) fL MCH 28.3 (25-34) pg MCHC 33.0 (32-36) g/dL RDW Std Deviation 42.2 (36.4-46.3) fL RDW Coeff of Daphney 13.5 (11.5-14.5) % Plt Count 296 (130-400) K/uL MPV 10.0 (7.4-10.4) fL Immature Gran % (Auto) 0.2 % Neut % (Auto) 58.9 % Lymph % (Auto) 29.1 % [place] % (Auto) 9.6 % Eos % (Auto) 1.7 % Baso % (Auto) 0.5 % Neut # (Auto) 6.26 (1.4-6.5) K/uL Lymph # (Auto) 3.09 (1.2-3.4) K/uL [place] # (Auto) 1.02 H (0.11-0.59) K/uL Eos # (Auto) 0.18 (0-0.5) K/uL Baso # (Auto) 0.05 (0-0.2) K/uL Immature Gran # (Auto) 0.02 (0.00-0.02) K/uL Sodium (136-145) mmol/L Potassium (3.5-5.1) mmol/L Chloride (98-107) mmol/L Carbon Dioxide (21-32) mmol/L Anion Gap (3-11) BUN (7-18) mg/dl Creatinine (0.6-1.2) mg/dl Est Cr Clr Drug Dosing ml/min Est GFR ( Amer) Est GFR (Non-Af Amer) BUN/Creatinine Ratio (10-20) Glucose (70-99) mg/dl POC Glucose 144 H (70-99) mg/dl Calcium (8.5-10.1) mg/dl Total Bilirubin (0.2-1) mg/dl AST (15-37) U/L ALT (12-78) U/L Alkaline Phosphatase (45-117) U/L Total Protein (6.4-8.2) gm/dl Albumin (3.4-5.0) gm/dl Globulin (2.5-4.0) gm/dl Albumin/Globulin Ratio (0.9-2) TSH (0.300-4.500) uIu/ml Free T4 (0.8-1.6) ng/dl Urine Color Urine Appearance (Clear) Urine pH (4.5-7.5) Ur Specific [place] (1.000-1.030) Urine Protein (Negative) Urine Glucose (UA) (Negative) Urine Ketones (Negative) Urine Blood (Negative) Urine Nitrite (Negative) Urine Bilirubin (Negative) Urine Urobilinogen (Negative) Ur Leukocyte Esterase (Negative) Urine WBC (Auto) (0-5) /hpf Urine RBC (Auto) (0-4) /hpf U Hyaline Cast (Auto) (0-5) /lpf U Epithel Cells (Auto) (0-5) /lpf Urine Bacteria (Auto) (Negative) Ur Renal Epithelial Cell Salicylates (2.8-20) mg/dl Urine Opiates Screen Neg (Neg) Ur Methadone, Qual Neg (Neg) Acetaminophen (10-30) ug/ml Urine Barbiturates Neg (Neg) Ur Phencyclidine (PCP) Neg (Neg) U Amphetamin/Meth Scrn Neg (Neg) MDMA (Ecstasy) Screen Neg (Neg) U Benzodiazepines Scrn Neg (Neg) Ur Cocaine Metabolite Neg (Neg) U Marijuana (THC) Screen Neg (Neg) Ethyl Alcohol mg/dL (0-3) mg/dl COVID-19 Eval Order SARS-CoV-2, RNA, NAAT (NEGATIVE) 03/11/21 03/11/21 03/11/21 Range/Units 17:32 17:32 17:32 WBC (4.8-10.8) K/uL RBC (4.2-5.4) M/uL Hgb (12.0-16.0) g/dL Hct (37-47) % MCV (80-100) fL MCH (25-34) pg MCHC (32-36) g/dL RDW Std Deviation (36.4-46.3) fL RDW Coeff of Daphney (11.5-14.5) % Plt Count (130-400) K/uL MPV (7.4-10.4) fL Immature Gran % (Auto) % Neut % (Auto) % Lymph % (Auto) % [place] % (Auto) % Eos % (Auto) % Baso % (Auto) % Neut # (Auto) (1.4-6.5) K/uL Lymph # (Auto) (1.2-3.4) K/uL [place] # (Auto) (0.11-0.59) K/uL Eos # (Auto) (0-0.5) K/uL Baso # (Auto) (0-0.2) K/uL Immature Gran # (Auto) (0.00-0.02) K/uL Sodium 139 (136-145) mmol/L Potassium 4.3 (3.5-5.1) mmol/L Chloride 104 (98-107) mmol/L Carbon Dioxide 28 (21-32) mmol/L Anion Gap 7.0 (3-11) BUN 19 H (7-18) mg/dl Creatinine 0.96 (0.6-1.2) mg/dl Est Cr Clr Drug Dosing 76.4 ml/min Est GFR ( Amer) 75.6 Est GFR (Non-Af Amer) 65.2 BUN/Creatinine Ratio 19.4 (10-20) Glucose 147 H (70-99) mg/dl POC Glucose (70-99) mg/dl Calcium 7.8 L (8.5-10.1) mg/dl Total Bilirubin 1.4 H (0.2-1) mg/dl AST 36 (15-37) U/L ALT 37 (12-78) U/L Alkaline Phosphatase 99 (45-117) U/L Total Protein 8.1 (6.4-8.2) gm/dl Albumin 4.0 (3.4-5.0) gm/dl Globulin 4.1 H (2.5-4.0) gm/dl Albumin/Globulin Ratio 1.0 (0.9-2) TSH 0.084 L (0.300-4.500) uIu/ml Free T4 1.84 H (0.8-1.6) ng/dl Urine Color Urine Appearance (Clear) Urine pH (4.5-7.5) Ur Specific [place] (1.000-1.030) Urine Protein (Negative) Urine Glucose (UA) (Negative) Urine Ketones (Negative) Urine Blood (Negative) Urine Nitrite (Negative) Urine Bilirubin (Negative) Urine Urobilinogen (Negative) Ur Leukocyte Esterase (Negative) Urine WBC (Auto) (0-5) /hpf Urine RBC (Auto) (0-4) /hpf U Hyaline Cast (Auto) (0-5) /lpf U Epithel Cells (Auto) (0-5) /lpf Urine Bacteria (Auto) (Negative) Ur Renal Epithelial Cell Salicylates < 1.7 L (2.8-20) mg/dl Urine Opiates Screen (Neg) Ur Methadone, Qual (Neg) Acetaminophen < 2 L (10-30) ug/ml Urine Barbiturates (Neg) Ur Phencyclidine (PCP) (Neg) U Amphetamin/Meth Scrn (Neg) MDMA (Ecstasy) Screen (Neg) U Benzodiazepines Scrn (Neg) Ur Cocaine Metabolite (Neg) U Marijuana (THC) Screen (Neg) Ethyl Alcohol mg/dL < 3.0 (0-3) mg/dl COVID-19 Eval Order SARS-CoV-2, RNA, NAAT (NEGATIVE) 03/11/21 Range/Units 20:04 WBC (4.8-10.8) K/uL RBC (4.2-5.4) M/uL Hgb (12.0-16.0) g/dL Hct (37-47) % MCV (80-100) fL MCH (25-34) pg MCHC (32-36) g/dL RDW Std Deviation (36.4-46.3) fL RDW Coeff of Daphney (11.5-14.5) % Plt Count (130-400) K/uL MPV (7.4-10.4) fL Immature Gran % (Auto) % Neut % (Auto) % Lymph % (Auto) % [place] % (Auto) % Eos % (Auto) % Baso % (Auto) % Neut # (Auto) (1.4-6.5) K/uL Lymph # (Auto) (1.2-3.4) K/uL [place] # (Auto) (0.11-0.59) K/uL Eos # (Auto) (0-0.5) K/uL Baso # (Auto) (0-0.2) K/uL Immature Gran # (Auto) (0.00-0.02) K/uL Sodium (136-145) mmol/L Potassium (3.5-5.1) mmol/L Chloride (98-107) mmol/L Carbon Dioxide (21-32) mmol/L Anion Gap (3-11) BUN (7-18) mg/dl Creatinine (0.6-1.2) mg/dl Est Cr Clr Drug Dosing ml/min Est GFR ( Amer) Est GFR (Non-Af Amer) BUN/Creatinine Ratio (10-20) Glucose (70-99) mg/dl POC Glucose 137 H (70-99) mg/dl Calcium (8.5-10.1) mg/dl Total Bilirubin (0.2-1) mg/dl AST (15-37) U/L ALT (12-78) U/L Alkaline Phosphatase (45-117) U/L Total Protein (6.4-8.2) gm/dl Albumin (3.4-5.0) gm/dl Globulin (2.5-4.0) gm/dl Albumin/Globulin Ratio (0.9-2) TSH (0.300-4.500) uIu/ml Free T4 (0.8-1.6) ng/dl Urine Color Urine Appearance (Clear) Urine pH (4.5-7.5) Ur Specific [place] (1.000-1.030) Urine Protein (Negative) Urine Glucose (UA) (Negative) Urine Ketones (Negative) Urine Blood (Negative) Urine Nitrite (Negative) Urine Bilirubin (Negative) Urine Urobilinogen (Negative) Ur Leukocyte Esterase (Negative) Urine WBC (Auto) (0-5) /hpf Urine RBC (Auto) (0-4) /hpf U Hyaline Cast (Auto) (0-5) /lpf U Epithel Cells (Auto) (0-5) /lpf Urine Bacteria (Auto) (Negative) Ur Renal Epithelial Cell Salicylates (2.8-20) mg/dl Urine Opiates Screen (Neg) Ur Methadone, Qual (Neg) Acetaminophen (10-30) ug/ml Urine Barbiturates (Neg) Ur Phencyclidine (PCP) (Neg) U Amphetamin/Meth Scrn (Neg) MDMA (Ecstasy) Screen (Neg) U Benzodiazepines Scrn (Neg) Ur Cocaine Metabolite (Neg) U Marijuana (THC) Screen (Neg) Ethyl Alcohol mg/dL (0-3) mg/dl COVID-19 Eval Order SARS-CoV-2, RNA, NAAT (NEGATIVE) Imaging Data Radiologist's Impression: Head CT 03/11/21 16:26 CT head/brain wo con CLINICAL HISTORY: Headache COMPARISON STUDY: Noncontrast head CT dated 05/04/2017, MRI the brain dated 05/04/2017 TECHNIQUE: Axial CT of the brain is performed from the vertex to the skull base. IV contrast was not administered for this examination. A dose lowering technique was utilized adhering to the principles of ALARA. CT DOSE: 729.78 mGycm FINDINGS: No intra or extra-axial mass lesions are visualized. There is no CT evidence of acute cortical infarction. There is no evidence of midline shift. There is no acute hemorrhage. No calvarial fractures are visualized. There is no evidence of pathologic ventricular dilatation. There is no evidence of acute sinusitis IMPRESSION: No acute intracranial findings ACT 112: Negative or not required by law. Electronically signed by: Olu Agosto M.D. 03/11/2021 4:51 PM ECG Data Additional Comments: EKG at 2017: Sinus rhythm with rate of 69. CA 150 QRS 128 QTc 495. Right bundle branch block present. No ST elevation or ST depression. T wave inversion in lead III only. MDM Narrative Observation note Indication: Psych eval/placement Patient, with OCD and anxiety was first seen at 1615 hrs and the observation time began at 1730 hrs and was necessary in order to have psych evaluation completed . Upon re-evaluation, 4 hours of observation revealed that the patien t should be admitted to 3 S. Disposition date and time March 11, [id number]. Impression & Plan Suicidal ideation Discharge Plan Visit Data Chief Complaint: Mental Health Evaluation Stated Complaint: MHID ED Provider: Justen Galeano Discharge Problem: Suicidal ideation Patient Disposition: Admitted As Inpatient Discharge Instructions Interventions: ED Discharge Assessment Last Done: 03/11/21 21:56
[2021-03-11] MEDS ORDERED: BISMUTH SUBSALICYLATE LIQD 236 ML PO PRN (21:24)
[2021-03-11] MEDS ORDERED: ALUMINUM/MAGNESIUM SUSP 30 ML UDC PO PRN (21:24)
[2021-03-11] MEDS ORDERED: ACETAMINOPHEN 325 MG TAB PO PRN (21:24)
[2021-03-11] MEDS ORDERED: SODIUM CHLORIDE 0.65% NA SOLN 45 ML (OCEAN) PRN (21:24)
[2021-03-11] MEDS ORDERED: MAGNESIUM HYDROXIDE SUSP 30 ML UDC PO PRN (21:24)
[2021-03-11] MEDS ORDERED: hydrOXYzine HCl 25 MG TAB PO PRN ×2 (21:24)
[2021-03-11] MEDS ORDERED: LORazepam 1 MG TAB PO PRN (22:14)
[2021-03-12] MEDS ORDERED: PHARMACY GLYCEMIC MGMT CONSULT PRN (00:19)
[2021-03-12] MEDS ORDERED: CARBOHYDRATES FOR HYPOGLYCEMIA PO PRN (00:30)
[2021-03-12] MEDS ORDERED: GLUCOSE 40% GEL 15 GM TUBE PO PRN (00:30)
[2021-03-12] MEDS ORDERED: GLUCOSE 10 TABS/TUBE PO PRN (00:30)
[2021-03-12] MEDS ORDERED: GLUCAGON FOR INJ 1 MG VIAL SQ PRN (00:30)
[2021-03-12] MEDS ORDERED: DEXTROSE 50% 50 ML SYRINGE IV PRN (00:30)
[2021-03-12] MEDS ORDERED: INSULIN GLARGINE SOLOSTAR 100 UNITS/ML 3 ML PEN SC ONE ×2 (00:30→11:30)
[2021-03-12] MEDS: INSULIN ASPART 100 UNITS/ML 3 ML PEN SC SCH ×5 (00:40→20:40)
--- NOTE | 2021-03-12 08:49 | Electrocardiogram Report ---
Test Reason : Blood Pressure : / mmHG Vent. Rate : 069 BPM Atrial Rate : 069 BPM P-R Int : 150 ms QRS Dur : 128 ms QT Int : 462 ms P-R-T Axes : 029 078 002 degrees QTc Int : 495 ms Normal sinus rhythm Right bundle branch block Possible Old Inferior infarct (cited on or before 04-AUG-2019) Abnormal ECG When compared with ECG of 04-AUG-2019 08:18, No significant change Confirmed by Enrique Madden ([id number]) on 03/12/2021 8:48:31 AM Referred By: REFERRED SELF Confirmed By:Enrique Madden
[2021-03-12] MEDS: GABAPENTIN 100 MG CAP PO SCH ×3 (10:10→21:50)
[2021-03-12] MEDS: ASPIRIN 81 MG ECTAB PO SCH (10:10)
[2021-03-12] MEDS: LEVOTHYROXINE SODIUM 175 MCG TABLET PO SCH (10:10)
--- NOTE | 2021-03-12 10:47 | Pharmacy Report ---
Pharmacy Glycemic Short Note 2 - Date of Service March 12, 2021 - Glycemic Short BSG Results (Last 24 hours): 03/11/21 03/11/21 03/11/21 17:18 17:32 20:04 Glucose 147 H POC Glucose 144 H 137 H 03/12/21 03/12/21 00:27 09:58 Glucose POC Glucose 138 H 109 H OUTPATIENT ANTIDIABETIC REGIMEN (pump settings were reviewed): * Metformin 1gm PO BID w/ meals * Omnipod Dash: basal 43.95 units/day (1.8 units/hr 4887-6691; 1.9 units/hr 1630 -2359), correction factor 18, carb ratio 5, max bolus 30 units * A1c = 11.6 01/06/21 ASSESSMENT: * Patient typically follows with [facility] at [facility] * She does use the Omnipod system and settings were reviewed in her pump as well as via [employer] * Given patient's poor diet will scale back her basal insulin doses. She reported to [facility] staff that the pump has not been in use since the . She received a single dose of Lantus last evening in a dose ~ 1/3 her usual requirement. Her fasting BSG is at goal this AM despite this lower dose. Moving forward, will give 50% of usual basal once daily in the PM. Once daily dosing will allow for easier transition back to pump. * Novolog will be given SQ ACHS using a CF and CR slightly lesser (smaller do ses) than out-pt needs PLAN FOR INPATIENT GLYCEMIC CONTROL: * Hold outpatient oral diabetes medications * Basal insulin * Lantus 4 units SQ x 1 w/ lunch, then 22 units Q HS * Bolus insulin * NovoLog per scale ACHS or Q6hrs while NPO * Goal Range: Low 110 mg/dL - High 140 mg/dL * Correction Factor: 20 mg/dL/unit * Nutritional / Prandial insulin per carb ratio of 1 unit per 6 grams CHO consumed PLAN FOR DISCHARGE: * Insulin pump setting were altered at her last MTM clinic visit, which was the same date the A1c 11.6 resulted. Will defer insulin regimen adjustments to the MTM clinic on discharge. Will check A1c this visit to determine if control has worsened since last assessment.
--- NOTE | 2021-03-12 11:33 | History & Physical ---
Date of Service March 12, 2021 Impression / Recommendations Impression 56-year-old female with history of major depressive disorder currently presenting with decompensated depression. Patient is intentionally vague regarding her suicidal ideation. Doctor Osteopathic understands it to be passive at this time with no active plans. (1) Major depressive disorder with current active episode: -The patient was admitted to the [address] [place] [address] inpatient mental health unit on every 15 minute checks behavioral with suicide precautions for safety. The patient will participate in group, recreational, and milieu therapies and will be offered additional individual and family sessions as clinically appropriate. 03/12/21--patient's Lexapro will be discontinued. Patient will be started on 50 mg of Zoloft nightly. Inventory Assets Strengths: Supportive family Needs: Medication compliance Stability Risk Factors Assessment Male: No : Yes Do You Have Access To A Gun?: No Health Problems: Yes Mental Health Diagnoses: Yes Substance Use Disorders: No Previous Attempt: No Protective Factors Assessment Employed: No Psychiatric History Identifying Data HENRIK HOWARD is a 56-year-old F who [place], has a history of Major depressive disorder, and was admitted on 03/11/21 21:24 on a 201 voluntary commitment for depression and SI. Chief Complaint "I am very depressed I am not myself". History of Present Illness Patient is a 56-year-old woman with a history of major depressive disorder who presents following a decompensation in her depression. Patient states that she recently had 2 witnessed loss of one of her close friends. This friend while the patient was living in the home with them which reminded her of her 's passing 10 years prior as well as her father's passing 50 years prior. Patient states that she initially felt herself starting to become more d epressed but thought she could manage on her own. After some time she decided to stay with her daughter for a week. Patient states that this was a good weekend she was around her grandchildren and began to feel better. Patient was then set up in her own apartment. Upon entering her apartment patient was unable to fall asleep and found herself tearful and upset most of the night. When her daughter discovered her mood she brought her to the emergency department for evaluation. Patient's daughter adds that mother had been neglecting herself including not using her insulin pump. Patient acknowledges poor mood and poor sleep for the past month. She also acknowledges feelings of hopelessness and worthlessness. She states she has a difficult time dealing with the loss as well as a difficult time being alone. Patient states that her motivation and energy levels are low. She is intentionally vague and guarded when discussing suicidal ideation, but does acknowledge that she had stopped taking her necessary medication including her insulin. Past Psychiatric History Previous Psych History: Patient acknowledges prior psychiatric history of depression following the of her . Patient states that she had difficulty dealing with that as it had reminded her of her father's passing when she was a little girl. Patient states that she was put on some medications following the time of her 's passing and they were intermittently helpful. Current Psychiatric Diagnosis: MDD, Anxiety Do You Have Access To A Gun?: No History of Previous Suicide Attempt: No Past Head Trauma/Neuro History History of Concussion/Seizure: No Allergies Allergy/AdvReac Type Severity Reaction Status Date / Time adhesive tape Allergy Mild SKIN Verified 09/27/20 12:50 IRRITATION Home Medications Medication Instructions Recorded Confirmed Type aspirin 81 mg PO QAM 02/18/19 03/11/21 History atorvastatin 80 mg PO QPM 02/18/19 03/11/21 History escitalopram oxalate 40 mg PO QAM 02/18/19 03/11/21 History levothyroxine 175 mcg PO HS 02/18/19 03/11/21 History lorazepam 1 - 2 mg PO HS PRN 02/18/19 03/11/21 History metformin 1,000 mg PO BID 02/18/19 03/11/21 History metoprolol succinate 25 mg PO QPM 02/18/19 03/11/21 History omeprazole 20 mg PO BID 02/18/19 03/11/21 History Humulin 70/30 U-100 Insulin 100 unit SUBCUT HS 03/27/19 03/11/21 History amlodipine 2.5 mg PO HS 03/27/19 03/11/21 History valacyclovir 1 gram tablet 1,000 mg PO QAM PRN 06/12/19 03/11/21 History gabapentin 100 mg PO TID 07/21/19 03/11/21 History Family History Family History of: None Alcohol History Hx of Alcohol Use Over the Past 12 Months: No AUDIT Total Score: 0 Smoking Use Smoking Status: Never smoker Substance History Hx of Prescription Med Misuse Over the Past 12 Months: No Hx of Over the Counter Med Misuse Over the Past 12 Months: No Hx of Inhalent Misuse Over the Past 12 Months: No Hx of Organic Substance Use Over the Past 12 Months: No Hx of Illegal Substances/Street Drug Use Over Past 12 Months: No Problems as a Result of Past Substance Use: None Identified Personal History Living Arrangements: Apartment Living Arrangements Comments: Had only been in apt for 1 day prior to coming to the hospital. Prior to that had lived with partner of 7 years, when he , she stayed with her daughter until getting this apt. This is the first time of ever staying alone Highest Grade Completed: High School Graduate Number Of Children: 2 Beliefs That Will Affect Care: None Hx Legal Problems: No Hx Traumatic Life Events: Yes Psychological Trauma History Comment: father in arms at 6 years old Patient History Medical History (Updated 03/12/21 @ 11:48 by Migel Dean MD) Anxiety Benign neoplasm of vulva of clitoris Depression Diabetes mellitus, type II History of thyroid cancer Hypertension Myocardial Infarction 12 YEARS AGO (FOLLOWED BY DR. DODSON) VERBALIZED NO HEART CATH DONE Peripheral neuropathy Restless leg syndrome Schwannoma REMOVED BY DR. GROSSMAN MARCH 2018 Stroke 7 YEARS AGO (LEFT SIDE WEAKNESS/LEFT EYE DROOPING) Tumor LEFT FEMUR (BENIGN) 2 TUMORS REMOVED Vulvitis Surgical History Family history of reaction to anesthesia BROTHER-NAUSEA H/O blepharoplasty RT/LEFT History of anesthesia reaction SLOW TO WAKE UP History of cholecystectomy History of colonoscopy History of esophagogastroduodenoscopy (EGD) History of surgery robot-assist left thorascopic resection of schwannoma from left upper mediastinum. 03/16/2018. SANG. A line. No issues. History of thyroidectomy, total History of tonsillectomy History of tooth extraction S/P LASIK surgery of both eyes Status post hysteroscopic ablation of endometrium Family History Grandmother (Maternal) Family history of diabetes mellitus Mother Ovarian cancer Social History Smoking Status: Never smoker Second Hand Exposure: No; Hx Alcohol Use: No Hx Substance Use: No Preferred Language: Cameroonian Communication Ability: Effective Translation Director Required: No Beliefs That Will Affect Care: None marital status: Current Living Situation: Significant Other Feels Safe at Home: Yes Assistive Devices: Denture - Upper, Denture - Lower and Glasses Review of Systems Review of Systems: All systems reviewed & are unremarkable except as noted in HPI & below Physical Exam Mental Examination: Appearance: Disheveled Eye Contact: Fleeting Contact Motor Behavior: Restless Speech: Normal Mood: Depressed Affect: Congruent and Sad Thought Process: Intact Thought Content: Goal Oriented and Linear Hallucinations: None Insight: Fair Judgement: Fair Psychiatric: Orientation: alert and oriented x 3 Apperance: + disheveled Eye Contact: + fair eye contact Motor Behavior: steady gait and station Speech: normal rate/rhythm/volume of speech Affect: + depressed affect Mood: + depressed mood Thought Process: goal directed thought process Thought Content: + hopelessness and + loneliness; no delusions Suicidal Thoughts: + reports suicidal thoughts Homicidal Thoughts: denies homicidal thoughts Hallucinations: no auditory hallucinations and no visual hallu cinations Cognition: recent memory grossly intact Estimated Intelligence: average estimated intelligence Insight: + fair insight Judgement: + poor judgement Vital Signs (Past 24 Hours): Last Vital Signs Temp 36.6 C 03/12/21 06:31 Pulse 70 03/12/21 06:32 Resp 16 03/12/21 06:31 BP 121/76 03/12/21 06:32 Pulse Ox 100 03/11/21 20:18 Exam Statement: A physical exam was performed [in the ER] [on the medical floor] prior to admission to the unit by [ ]. I accept that physical as correct/medical clearance for the inpatient physical exam. Results & Data ([facility]) Laboratory Results Laboratory Results - last 24 hr 03/11/21 03/11/21 03/11/21 16:57 16:57 17:08 WBC RBC Hgb Hct MCV MCH MCHC RDW Std Deviation RDW Coeff of Daphney Plt Count MPV Immature Gran % (Auto) Neut % (Auto) Lymph % (Auto) Real % (Auto) Eos % (Auto) Baso % (Auto) Neut # (Auto) Lymph # (Auto) Real # (Auto) Eos # (Auto) Baso # (Auto) Immature Gran # (Auto) Sodium Potassium Chloride Carbon Dioxide Anion Gap BUN Creatinine Est Cr Clr Drug Dosing Est GFR ( Amer) Est GFR (Non-Af Amer) BUN/Creatinine Ratio Glucose POC Glucose Calcium Total Bilirubin AST ALT Alkaline Phosphatase Total Protein Albumin Globulin Albumin/Globulin Ratio TSH Free T4 Urine Color Yellow Urine Appearance Clear Urine pH 5.0 Ur Specific [place] 1.018 Urine Protein Negative Urine Glucose (UA) Negative Urine Ketones Trace H Urine Blood Negative Urine Nitrite Negative Urine Bilirubin Negative Urine Urobilinogen Negative Ur Leukocyte Esterase Trace H Urine WBC (Auto) 5-10 H Urine RBC (Auto) 0-4 U Hyaline Cast (Auto) 1-5 U Epithel Cells (Auto) >30 H Urine Bacteria (Auto) Negative Ur Renal Epithelial Cell Not Reportable Salicylates Urine Opiates Screen Ur Methadone, Qual Acetaminophen Urine Barbiturates Ur Phencyclidine (PCP) U Amphetamin/Meth Scrn MDMA (Ecstasy) Screen U Benzodiazepines Scrn Ur Cocaine Metabolite U Marijuana (THC) Screen Ethyl Alcohol mg/dL COVID-19 Eval Order Covid19 IDNow atMWVC SARS-CoV-2, RNA, NAAT NEGATIVE 03/11/21 03/11/21 03/11/21 17:08 17:18 17:32 WBC 10.62 RBC 4.98 Hgb 14.1 Hct 42.7 MCV 85.7 MCH 28.3 MCHC 33.0 RDW Std Deviation 42.2 RDW Coeff of Daphney 13.5 Plt Count 296 MPV 10.0 Immature Gran % (Auto) 0.2 Neut % (Auto) 58.9 Lymph % (Auto) 29.1 Real % (Auto) 9.6 Eos % (Auto) 1.7 Baso % (Auto) 0.5 Neut # (Auto) 6.26 Lymph # (Auto) 3.09 Real # (Auto) 1.02 H Eos # (Auto) 0.18 Baso # (Auto) 0.05 Immature Gran # (Auto) 0.02 Sodium Potassium Chloride Carbon Dioxide Anion Gap BUN Creatinine Est Cr Clr Drug Dosing Est GFR ( Amer) Est GFR (Non-Af Amer) BUN/Creatinine Ratio Glucose POC Glucose 144 H Calcium Total Bilirubin AST ALT Alkaline Phosphatase Total Protein Albumin Globulin Albumin/Globulin Ratio TSH Free T4 Urine Color Urine Appearance Urine pH Ur Specific [place] Urine Protein Urine Glucose (UA) Urine Ketones Urine Blood Urine Nitrite Urine Bilirubin Urine Urobilinogen Ur Leukocyte Esterase Urine WBC (Auto) Urine RBC (Auto) U Hyaline Cast (Auto) U Epithel Cells (Auto) Urine Bacteria (Auto) Ur Renal Epithelial Cell Salicylates Urine Opiates Screen Neg Ur Methadone, Qual Neg Acetaminophen Urine Barbiturates Neg Ur Phencyclidine (PCP) Neg U Amphetamin/Meth Scrn Neg MDMA (Ecstasy) Screen Neg U Benzodiazepines Scrn Neg Ur Cocaine Metabolite Neg U Marijuana (THC) Screen Neg Ethyl Alcohol mg/dL COVID-19 Eval Order SARS-CoV-2, RNA, NAAT 03/11/21 03/11/21 03/11/21 17:32 17:32 17:32 WBC RBC Hgb Hct MCV MCH MCHC RDW Std Deviation RDW Coeff of Daphney Plt Count MPV Immature Gran % (Auto) Neut % (Auto) Lymph % (Auto) Real % (Auto) Eos % (Auto) Baso % (Auto) Neut # (Auto) Lymph # (Auto) Real # (Auto) Eos # (Auto) Baso # (Auto) Immature Gran # (Auto) Sodium 139 Potassium 4.3 Chloride 104 Carbon Dioxide 28 Anion Gap 7.0 BUN 19 H Creatinine 0.96 Est Cr Clr Drug Dosing 76.4 Est GFR ( Amer) 75.6 Est GFR (Non-Af Amer) 65.2 BUN/Creatinine Ratio 19.4 Glucose 147 H POC Glucose Calcium 7.8 L Total Bilirubin 1.4 H AST 36 ALT 37 Alkaline Phosphatase 99 Total Protein 8.1 Albumin 4.0 Globulin 4.1 H Albumin/Globulin Ratio 1.0 TSH 0.084 L Free T4 1.84 H Urine Color Urine Appearance Urine pH Ur Specific [place] Urine Protein Urine Glucose (UA) Urine Ketones Urine Blood Urine Nitrite Urine Bilirubin Urine Urobilinogen Ur Leukocyte Esterase Urine WBC (Auto) Urine RBC (Auto) U Hyaline Cast (Auto) U Epithel Cells (Auto) Urine Bacteria (Auto) Ur Renal Epithelial Cell Salicylates < 1.7 L Urine Opiates Screen Ur Methadone, Qual Acetaminophen < 2 L Urine Barbiturates Ur Phencyclidine (PCP) U Amphetamin/Meth Scrn MDMA (Ecstasy) Screen U Benzodiazepines Scrn Ur Cocaine Metabolite U Marijuana (THC) Screen Ethyl Alcohol mg/dL < 3.0 COVID-19 Eval Order SARS-CoV-2, RNA, NAAT 03/11/21 03/12/21 03/12/21 20:04 00:27 09:58 WBC RBC Hgb Hct MCV MCH MCHC RDW Std Deviation RDW Coeff of Daphney Plt Count MPV Immature Gran % (Auto) Neut % (Auto) Lymph % (Auto) Real % (Auto) Eos % (Auto) Baso % (Auto) Neut # (Auto) Lymph # (Auto) Real # (Auto) Eos # (Auto) Baso # (Auto) Immature Gran # (Auto) Sodium Potassium Chloride Carbon Dioxide Anion Gap BUN Creatinine Est Cr Clr Drug Dosing Est GFR ( Amer) Est GFR (Non-Af Amer) BUN/Creatinine Ratio Glucose POC Glucose 137 H 138 H 109 H Calcium Total Bilirubin AST ALT Alkaline Phosphatase Total Protein Albumin Globulin Albumin/Globulin Ratio TSH Free T4 Urine Color Urine Appearance Urine pH Ur Specific [place] Urine Protein Urine Glucose (UA) Urine Ketones Urine Blood Urine Nitrite Urine Bilirubin Urine Urobilinogen Ur Leukocyte Esterase Urine WBC (Auto) Urine RBC (Auto) U Hyaline Cast (Auto) U Epithel Cells (Auto) Urine Bacteria (Auto) Ur Renal Epithelial Cell Salicylates Urine Opiates Screen Ur Methadone, Qual Acetaminophen Urine Barbiturates Ur Phencyclidine (PCP) U Amphetamin/Meth Scrn MDMA (Ecstasy) Screen U Benzodiazepines Scrn Ur Cocaine Metabolite U Marijuana (THC) Screen Ethyl Alcohol mg/dL COVID-19 Eval Order SARS-CoV-2, RNA, NAAT Current Inpatient Medications Current Inpatient Medications: Current Inpatient Medications Acetaminophen (Acetaminophen 325 Mg Tab) 650 mg PO Q4H PRN PRN Reason: Headache or Minor Fever Stop: 04/10/21 21:23 Al Hydrox/Mg Hydrox/Simethicone (Aluminum/Magnesium Susp 30 Ml Udc) 30 ml PO Q4H PRN PRN Reason: GI Upset Stop: 04/10/21 21:23 Amlodipine Besylate (Amlodipine Besylate 5 Mg Tab) 2.5 mg PO HS WILLIAM Stop: 04/11/21 21:59 Aspirin (Aspirin 81 Mg Ectab) 81 mg PO DAILY [facility]IAM Stop: 04/11/21 08:59 Last Admin: 03/12/21 10:10 Dose: 81 mg Documented by: Atorvastatin Calcium (Atorvastatin 40 Mg Tab) 80 mg PO HS WILLIAM Stop: 04/11/21 21:59 Bismuth Subsalicylate (Bismuth Subsalicylate Liqd 236 Ml) 15 ml PO PRN PRN PRN Reason: Loose Stool Stop: 04/10/21 21:23 Dextrose (Dextrose 50% 50 Ml Syringe) 25 - 50 ml IV UD PRN; Protocol PRN Reason: Hypoglycemia Protocol Stop: 04/11/21 00:29 Gabapentin (Gabapentin 100 Mg Cap) 100 mg PO TID [facility] Stop: 04/11/21 08:59 Last Admin: 03/12/21 10:10 Dose: 100 mg Documented by: Glucagon (Glucagon For Inj 1 Mg Vial) 1 mg SQ UD PRN; Protocol PRN Reason: Hypoglycemia Protocol Stop: 04/11/21 00:29 Glucose (Glucose 40% Gel 15 Gm Tube) 15 - 30 gm PO UD PRN; Protocol PRN Reason: Hypoglycemia Protocol Stop: 04/11/21 00:29 Glucose (Glucose 10 Tabs/Tube) 4 - 8 tabs PO UD PRN; Protocol PRN Reason: Hypoglycemia Protocol Stop: 04/11/21 00:29 Insulin Aspart (Insulin Aspart 100 Units/Ml 3 Ml Pen) 0 units SC ACHS WILLIAM Stop: 04/11/21 00:29 Last Admin: 03/12/21 10:12 Dose: Not Given Documented by: Insulin Glargine (Insulin Glargine Solostar 100 Units/Ml 3 Ml Pen) 22 units SC HS [facility] Stop: 04/11/21 21:59 Levothyroxine Sodium (Levothyroxine Sodium 175 Mcg Tablet) 175 mcg PO DAILYBB [facility] Stop: 04/11/21 07:59 Last Admin: 03/12/21 10:10 Dose: 175 mcg Documented by: Lorazepam (Lorazepam 1 Mg Tab) 1 mg PO HS PRN PRN Reason: Anxiety Stop: 04/10/21 22:13 Magnesium Hydroxide (Magnesium Hydroxide Susp 30 Ml Udc) 30 ml PO DAILY PRN PRN Reason: Constipation Stop: 04/10/21 21:23 Metformin HCl (Metformin Hcl 500 Mg Tab) 1,000 mg PO BIDM [facility] Stop: 04/11/21 08:59 Metoprolol Succinate (Metoprolol Succ 25mg Ext Rel Tab) 25 mg PO HS [facility] Stop: 04/11/21 21:59 Miscellaneous (Carbohydrates For Hypoglycemia ) 15 - 30 gm PO UD PRN PRN Reason: Hypoglycemia Treatment Stop: 04/11/21 00:29 Miscellaneous Information (Pharmacy Glycemic Mgmt Consult) 1 ea N/A UD PRN PRN Reason: Consult Stop: 04/11/21 00:18 Sodium Chloride (Sodium Chloride 0.65% Na Soln 45 Ml ([place])) 1 - 2 sprays NA PRN PRN PRN Reason: Nasal Dryness/Congestion Stop: 04/10/21 21:23
[2021-03-12] MEDS: metFORMIN HCL 500 MG TAB PO SCH (17:48)
[2021-03-12] MEDS: amLODIPine BESYLATE 5 MG TAB PO SCH (21:51)
[2021-03-12] MEDS: ATORVASTATIN 40 MG TAB PO SCH (21:52)
[2021-03-12] MEDS: INSULIN GLARGINE SOLOSTAR 100 UNITS/ML 3 ML PEN SC SCH (21:52)
[2021-03-12] MEDS: METOPROLOL SUCC 25MG EXT REL TAB PO SCH (21:53)
[2021-03-12] MEDS ORDERED: SERTRALINE HCL 50 MG TABLET PO SCH (22:00)
[2021-03-13] MEDS: INSULIN ASPART 100 UNITS/ML 3 ML PEN SC SCH ×4 (08:54→22:33)
[2021-03-13] MEDS: LEVOTHYROXINE SODIUM 175 MCG TABLET PO SCH (09:01)
[2021-03-13] MEDS: ASPIRIN 81 MG ECTAB PO SCH (09:02)
[2021-03-13] MEDS: metFORMIN HCL 500 MG TAB PO SCH ×2 (09:02→17:31)
[2021-03-13] MEDS: GABAPENTIN 100 MG CAP PO SCH ×3 (09:02→22:05)
[2021-03-13 10:48] LABS: Estimated Average Glucose 235 mg/dl; Hemoglobin A1C 9.8 % (4.5-5.6)
--- NOTE | 2021-03-13 12:04 | Psychiatric Progress Note ---
Date of Service March 13, 2021 Impression / Recommendations Impression 56-year-old female with history of major depressive disorder currently presenting with decompensated depression. Patient is intentionally vague regarding her suicidal ideation. Clinical Applications Manager understands it to be passive at this time with no active plans. (1) Major depressive disorder with current active episode: -The patient was admitted to the [address] [place] [address] inpatient mental health unit on every 15 minute checks behavioral with suicide precautions for safety. The patient will participate in group, recreational, and milieu therapies and will be offered additional individual and family sessions as clinically appropriate. 7-2-25upwcsue's Zoloft (sertraline) dose of 50 mg will be increased to 75 mg nightly. 03/12/21--patient's Lexapro will be discontinued. Patient will be started on 50 mg of Zoloft nightly. Inventory Assets Strengths: Supportive family Needs: Medication compliance Stability Risk Factors Assessment Male: No : Yes Do You Have Access To A Gun?: No Health Problems: Yes Mental Health Diagnoses: Yes Substance Use Disorders: No Previous Attempt: No Protective Factors Assessment Employed: No Interval History Chief Complaint "Thank you for everything, but I am still worried about being lonely". Review of Systems Sleep Information Total Hours of Sleep: 8.5 Meal Information Percent Meal Consumed - Breakfast: 100 Percent Meal Consumed - Lunch: 50 Percent Meal Consumed - Dinner: 50 Subjective Subjective Patient was seen & assessed and interval progress reviewed with treatment team nursing and social work Patient endorses a good night of sleep as well as a decent appetite. She denies any side effects of the sertraline medication and no side effects observed. Regarding her mood, patient still remains depressed particularly when thinking about her future living situation, and the loneliness she would experience. Patient is looking forward to family meeting with her daughter earlier this afternoon. Physical Exam Psychiatric Orientation: alert and oriented x 3 Apperance: + disheveled Eye Contact: + fair eye contact Motor Behavior: steady gait and station Speech: normal rate/rhythm/volume of speech Affect: + depressed affect Mood: + depressed mood Thought Process: goal directed thought process Thought Content: + hopelessness and + loneliness; no delusions Suicidal Thoughts: + reports suicidal thoughts Homicidal Thoughts: denies homicidal thoughts Hallucinations: no auditory hallucinations and no visual hallucinations Cognition: recent memory grossly intact Estimated Intelligence: average estimated intelligence Insight: + fair insight Judgement: + poor judgement Vital Signs (Past 24 Hours) Last Vital Signs Temp 36.4 C L 03/13/21 06:38 Pulse 62 03/13/21 06:39 Resp 16 03/13/21 06:38 BP 102/66 03/13/21 06:39 Pulse Ox 100 03/11/21 20:18 Results & Data ([facility]) Laboratory Results Laboratory Results - last 24 hr 03/12/21 03/12/21 03/12/21 12:47 17:13 20:35 POC Glucose 111 H 102 H 139 H Estimat Average Glucose Hemoglobin A1c 03/13/21 03/13/21 06:51 08:35 POC Glucose 128 H Estimat Average Glucose 235 Hemoglobin A1c 9.8 H Current Inpatient Medications Current Inpatient Medications: Current Inpatient Medications Acetaminophen (Acetaminophen 325 Mg Tab) 650 mg PO Q4H PRN PRN Reason: Headache or Minor Fever Stop: 04/10/21 21:23 Al Hydrox/Mg Hydrox/Simethicone (Aluminum/Magnesium Susp 30 Ml Udc) 30 ml PO Q4H PRN PRN Reason: GI Upset Stop: 04/10/21 21:23 Amlodipine Besylate (Amlodipine Besylate 5 Mg Tab) 2.5 mg PO HS [facility]IAM Stop: 04/11/21 21:59 Last Admin: 03/12/21 21:51 Dose: 2.5 mg Documented by: Aspirin (Aspirin 81 Mg Ectab) 81 mg PO DAILY [facility] Stop: 04/11/21 08:59 Last Admin: 03/13/21 09:02 Dose: 81 mg Documented by: Atorvastatin Calcium (Atorvastatin 40 Mg Tab) 80 mg PO [facility] Stop: 04/11/21 21:59 Last Admin: 03/12/21 21:52 Dose: 80 mg Documented by: Bismuth Subsalicylate (Bismuth Subsalicylate Liqd 236 Ml) 15 ml PO PRN PRN PRN Reason: Loose Stool Stop: 04/10/21 21:23 Dextrose (Dextrose 50% 50 Ml Syringe) 25 - 50 ml IV UD PRN; Protocol PRN Reason: Hypoglycemia Protocol Stop: 04/11/21 00:29 Gabapentin (Gabapentin 100 Mg Cap) 100 mg PO TID [facility] Stop: 04/11/21 08:59 Last Admin: 03/13/21 09:02 Dose: 100 mg Documented by: Glucagon (Glucagon For Inj 1 Mg Vial) 1 mg SQ UD PRN; Protocol PRN Reason: Hypoglycemia Protocol Stop: 04/11/21 00:29 Glucose (Glucose 40% Gel 15 Gm Tube) 15 - 30 gm PO UD PRN; Protocol PRN Reason: Hypoglycemia Protocol Stop: 04/11/21 00:29 Glucose (Glucose 10 Tabs/Tube) 4 - 8 tabs PO UD PRN; Protocol PRN Reason: Hypoglycemia Protocol Stop: 04/11/21 00:29 Insulin Aspart (Insulin Aspart 100 Units/Ml 3 Ml Pen) 0 units SC [facility] Stop: 04/11/21 00:29 Last Admin: 03/13/21 08:54 Dose: 4 units Documented by: Insulin Glargine (Insulin Glargine Solostar 100 Units/Ml 3 Ml Pen) 22 units SC [facility] Stop: 04/11/21 21:59 Last Admin: 03/12/21 21:52 Dose: 22 units Documented by: Levothyroxine Sodium (Levothyroxine Sodium 175 Mcg Tablet) [facility]: 04/11/21 07:59 Last Admin: 03/13/21 09:01 Dose: 175 mcg Documented by: Lorazepam (Lorazepam 1 Mg Tab) 1 mg PO HS PRN PRN Reason: Anxiety Stop: 04/10/21 22:13 Magnesium Hydroxide (Magnesium Hydroxide Susp 30 Ml Udc) 30 ml PO DAILY PRN PRN Reason: Constipation Stop: 04/10/21 21:23 Metformin HCl (Metformin Hcl 500 Mg Tab) 1,000 mg PO BIDM [facility] Stop: 04/11/21 08:59 Last Admin: 03/13/21 09:02 Dose: 1,000 mg Documented by: Metoprolol Succinate (Metoprolol Succ 25mg Ext Rel Tab) 25 mg PO [facility] Stop: 04/11/21 21:59 Last Admin: 03/12/21 21:53 Dose: 25 mg Documented by: Miscellaneous (Carbohydrates For Hypoglycemia ) 15 - 30 gm PO UD PRN PRN Reason: Hypoglycemia Treatment Stop: 04/11/21 00:29 Miscellaneous Information (Pharmacy Glycemic Mgmt Consult) 1 ea N/A UD PRN PRN Reason: Consult Stop: 04/11/21 00:18 Sertraline HCl (Sertraline Hcl 50 Mg Tablet) 75 mg PO [facility] Stop: 04/12/21 21:59 Sodium Chloride (Sodium Chloride 0.65% Na Soln 45 Ml ([place])) 1 - 2 sprays NA PRN PRN PRN Reason: Nasal Dryness/Congestion Stop: 04/10/21 21:23 Mental Health & Subst Abuse Tx Therapist Name of Therapist: None Manager Of Sustainability Name of Manager Of Sustainability: None Post Discharge Appointments Primary Care Physician Name Of Family Doctor: Kathy Velazquez (can't remember the name)
[2021-03-13] MEDS ORDERED: hydrOXYzine HCl 25 MG TAB PO PRN (16:38)
[2021-03-13] MEDS: hydrOXYzine HCl 25 MG TAB PO PRN (17:15)
[2021-03-13] MEDS ORDERED: SERTRALINE HCL 50 MG TABLET PO SCH (22:00)
[2021-03-13] MEDS: METOPROLOL SUCC 25MG EXT REL TAB PO SCH (22:05)
[2021-03-13] MEDS: amLODIPine BESYLATE 5 MG TAB PO SCH (22:05)
[2021-03-13] MEDS: ATORVASTATIN 40 MG TAB PO SCH (22:05)
[2021-03-13] MEDS: INSULIN GLARGINE SOLOSTAR 100 UNITS/ML 3 ML PEN SC SCH (22:34)
[2021-03-14] MEDS: LEVOTHYROXINE SODIUM 175 MCG TABLET PO SCH (08:38)
[2021-03-14] MEDS: GABAPENTIN 100 MG CAP PO SCH ×3 (08:38→21:09)
[2021-03-14] MEDS: metFORMIN HCL 500 MG TAB PO SCH ×2 (08:38→17:38)
[2021-03-14] MEDS: ASPIRIN 81 MG ECTAB PO SCH (08:38)
[2021-03-14] MEDS: INSULIN ASPART 100 UNITS/ML 3 ML PEN SC SCH ×4 (08:43→21:17)
--- NOTE | 2021-03-14 09:21 | Pharmacy Report ---
Pharmacy Glycemic Short Note 2 - Date of Service March 14, 2021 - Glycemic Short BSG Results (Last 24 hours): 03/13/21 03/13/21 03/13/21 12:44 16:41 20:25 POC Glucose 110 H 105 H 105 H 03/14/21 08:27 POC Glucose 120 H OUTPATIENT ANTIDIABETIC REGIMEN (pump settings were reviewed): * Metformin 1gm PO BID w/ meals * Omnipod Dash: basal 43.95 units/day (1.8 units/hr 0897-2641; 1.9 units/hr 9332-9885), correction factor 18, carb ratio 5, max bolus 30 units * A1c = 11.6 01/06/21 ASSESSMENT: 03/14/21 * Pt has received 32 units of insulin and metformin PO over the past 24hrs * 22 units of basal with Lantus * 10 units of bolus with NovoLog * BSGs 105-128 mg/dl * Excellent glycemic control on current regimen, no changes needed at this time * Updated A1c = 9.8% 03/12/21 * Patient typically follows with [facility] at [facility] * She does use the Omnipod system and settings were reviewed in her pump as well as via [employer] * Given patient's poor diet will scale back her basal insulin doses. She repo rted to [facility] staff that the pump has not been in use since the . She received a single dose of Lantus last evening in a dose ~ 1/3 her usual requirement. Her fasting BSG is at goal this AM despite this lower dose. Moving forward, will give 50% of usual basal once daily in the PM. Once daily dosing will allow for easier transition back to pump. * Novolog will be given SQ ACHS using a CF and CR slightly lesser (smaller doses) than out-pt needs PLAN FOR INPATIENT GLYCEMIC CONTROL: * Metformin 1g PO BID with meals * Basal insulin * Lantus 22 units Q HS * Bolus insulin * NovoLog per scale ACHS or Q6hrs while NPO * Goal Range: Low 110 mg/dL - High 140 mg/dL * Correction Factor: 20 mg/dL/unit * Nutritional / Prandial insulin per carb ratio of 1 unit per 6 grams CHO consumed PLAN FOR DISCHARGE: * Insulin pump setting were altered at her last [facility] clinic visit, which was the same date the A1c 11.6 resulted. Will defer insulin regimen adjustments to the [facility] clinic on discharge. Updated A1c = 9.8% 03/13/21.
--- NOTE | 2021-03-14 15:54 | Psychiatric Progress Note ---
Date of Service March 14, 2021 Impression / Recommendations Impression 56-year-old female with history of major depressive disorder currently presenting with decompensated depression. Patient is intentionally vague regarding her suicidal ideation. Potato Spotter understands it to be passive at this time with no active plans. (1) Major depressive disorder with current active episode: -The patient was admitted to the [address] [place] [address] inpatient mental health unit on every 15 minute checks behavioral with suicide precautions for safety. The patient will participate in group, recreational, and milieu therapies and will be offered additional individual and family sessions as clinically appropriate. 03/14/21--patient sertraline dose will be increased to 100 mg nightly. 03/13/21patient's Zoloft (sertraline) dose of 50 mg will be increased to 75 mg nightly. 03/12/21--patient's Lexapro will be discontinued. Patient will be started on 50 mg of Zoloft nightly. Inventory Assets Strengths: Supportive family Needs: Medication compliance Stability Risk Factors Assessment Male: No : Yes Do You Have Access To A Gun?: No Health Problems: Yes Mental Health Diagnoses: Yes Substance Use Disorders: No Previous Attempt: No Protective Factors Assessment Employed: No Interval History Chief Complaint "I was able to sleep last night". Review of Systems Sleep Information Total Hours of Sleep: 6.5 Meal Information Percent Meal Consumed - Breakfast: 100 Percent Meal Consumed - Lunch: 95 Percent Meal Consumed - Dinner: 75 Subjective Subjective Patient was seen & assessed and interval progress reviewed with treatment team nursing and social work Patient states that she has been able to obtain a good night sleep. She feels that her mood is improved accordingly. Patient states that she is eating well with a good appetite. She is more optimistic and positive today. She is denying any side effects of the medication no side effects observed. Physical Exam Psychiatric Orientation: alert and oriented x 3 Apperance: + disheveled Eye Contact: + fair eye contact Motor Behavior: steady gait and station Speech: normal rate/rhythm/volume of speech Affect: euthymic affect Mood: no depressed mood Thought Process: goal directed thought process Thought Content: reality based without delusions and + loneliness; no delusions Suicidal Thoughts: denies suicidal thoughts Homicidal Thoughts: denies homicidal thoughts Hallucinations: no auditory hallucinations and no visual hallucinations Cognition: recent memory grossly intact Estimated Intelligence: average estimated intelligence Insight: + fair insight Judgement: + fair judgement Vital Signs (Past 24 Hours) Last Vital Signs Temp 36.5 C 03/14/21 05:50 Pulse 63 03/14/21 05:51 Resp 17 03/14/21 05:50 BP 109/72 03/14/21 05:51 Pulse Ox 100 03/11/21 20:18 Results & Data ([facility]) Laboratory Results Laboratory Results - last 24 hr 03/13/21 03/13/21 03/14/21 16:41 20:25 08:27 POC Glucose 105 H 105 H 120 H 03/14/21 12:20 POC Glucose 122 H Current Inpatient Medications Current Inpatient Medications: Current Inpatient Medications Acetaminophen (Acetaminophen 325 Mg Tab) 650 mg PO Q4H PRN PRN Reason: Headache or Minor Fever Stop: 04/10/21 21:23 Al Hydrox/Mg Hydrox/Simethicone (Aluminum/Magnesium Susp 30 Ml Udc) 30 ml PO Q4H PRN PRN Reason: GI Upset Stop: 04/10/21 21:23 Amlodipine Besylate (Amlodipine Besylate 5 Mg Tab) 2.5 mg PO HS [facility] Stop: 04/11/21 21:59 Last Admin: 03/13/21 22:05 Dose: 2.5 mg Documented by: Aspirin (Aspirin 81 Mg Ectab) 81 mg PO DAILY [facility] Stop: 04/11/21 08:59 Last Admin: 03/14/21 08:38 Dose: 81 mg Documented by: Atorvastatin Calcium (Atorvastatin 40 Mg Tab) 80 mg PO HS [facility] Stop: 04/11/21 21:59 Last Admin: 03/13/21 22:05 Dose: 80 mg Documented by: Bismuth Subsalicylate (Bismuth Subsalicylate Liqd 236 Ml) 15 ml PO PRN PRN PRN Reason: Loose Stool Stop: 04/10/21 21:23 Dextrose (Dextrose 50% 50 Ml Syringe) 25 - 50 ml IV UD PRN; Protocol PRN Reason: Hypoglycemia Protocol Stop: 04/11/21 00:29 Gabapentin (Gabapentin 100 Mg Cap) 100 mg PO TID [facility]IAM Stop: 04/11/21 08:59 Last Admin: 03/14/21 14:03 Dose: 100 mg Documented by: Glucagon (Glucagon For Inj 1 Mg Vial) 1 mg SQ UD PRN; Protocol PRN Reason: Hypoglycemia Protocol Stop: 04/11/21 00:29 Glucose (Glucose 40% Gel 15 Gm Tube) 15 - 30 gm PO UD PRN; Protocol PRN Reason: Hypoglycemia Protocol Stop: 04/11/21 00:29 Glucose (Glucose 10 Tabs/Tube) 4 - 8 tabs PO UD PRN; Protocol PRN Reason: Hypoglycemia Protocol Stop: 04/11/21 00:29 Hydroxyzine HCl (Hydroxyzine Hcl 25 Mg Tab) 25 mg PO Q4H PRN PRN Reason: Anxiety Stop: 04/12/21 16:59 Last Admin: 03/13/21 17:15 Dose: 25 mg Documented by: Insulin Aspart (Insulin Aspart 100 Units/Ml 3 Ml Pen) 0 units SC [facility] Stop: 04/11/21 00:29 Last Admin: 03/14/21 12:40 Dose: 9 units Documented by: Insulin Glargine (Insulin Glargine Solostar 100 Units/Ml 3 Ml Pen) 22 units SC [facility] Stop: 04/11/21 21:59 Last Admin: 03/13/21 22:34 Dose: 22 units Documented by: Levothyroxine Sodium (Levothyroxine Sodium 175 Mcg Tablet) [facility] Stop: 04/11/21 07:59 Last Admin: 03/14/21 08:38 Dose: 175 mcg Documented by: Lorazepam (Lorazepam 1 Mg Tab) 1 mg PO HS PRN PRN Reason: Anxiety Stop: 04/10/21 22:13 Magnesium Hydroxide (Magnesium Hydroxide Susp 30 Ml Udc) 30 ml PO DAILY PRN PRN Reason: Constipation Stop: 04/10/21 21:23 Metformin HCl (Metformin Hcl 500 Mg Tab) 1,000 mg PO BIDM [facility] Stop: 04/11/21 08:59 Last Admin: 03/14/21 08:38 Dose: 1,000 mg Documented by: Metoprolol Succinate (Metoprolol Succ 25mg Ext Rel Tab) 25 mg PO HS [facility] Stop: 04/11/21 21:59 Last Admin: 03/13/21 22:05 Dose: 25 mg Documented by: Miscellaneous (Carbohydrates For Hypoglycemia ) 15 - 30 gm PO UD PRN PRN Reason: Hypoglycemia Treatment Stop: 04/11/21 00:29 Miscellaneous Information (Pharmacy Glycemic Mgmt Consult) 1 ea N/A UD PRN PRN Reason: Consult Stop: 04/11/21 00:18 Sertraline HCl (Sertraline Hcl 50 Mg Tablet) 75 mg PO HS [facility] Stop: 04/12/21 21:59 Last Admin: 03/13/21 22:08 Dose: 75 mg Documented by: Sodium Chloride (Sodium Chloride 0.65% Na Soln 45 Ml ([place])) 1 - 2 sprays NA PRN PRN PRN Reason: Nasal Dryness/Congestion Stop: 04/10/21 21:23 Mental Health & Subst Abuse Tx Therapist Name of Therapist: None Animal Cop Name of Animal Cop: None Post Discharge Appointments Primary Care Physician Name Of Family Doctor: Caroline Diaz Primary Care Date of Appointment with PCP: 03/25/21 Time of Appointment with PCP: 11:00 a.m. Provider Appointment Comment: Wade Mathis Contact Information Discharge Discharge Address: [address] [place] [address], [place] [address]
[2021-03-14] MEDS: ATORVASTATIN 40 MG TAB PO SCH (21:09)
[2021-03-14] MEDS: amLODIPine BESYLATE 5 MG TAB PO SCH (21:09)
[2021-03-14] MEDS: METOPROLOL SUCC 25MG EXT REL TAB PO SCH (21:10)
[2021-03-14] MEDS: SERTRALINE HCL 100 MG TABLET PO SCH (21:11)
[2021-03-14] MEDS: INSULIN GLARGINE SOLOSTAR 100 UNITS/ML 3 ML PEN SC SCH (21:18)
[2021-03-15] MEDS: ASPIRIN 81 MG ECTAB PO SCH (08:55)
[2021-03-15] MEDS: LEVOTHYROXINE SODIUM 175 MCG TABLET PO SCH (08:55)
[2021-03-15] MEDS: GABAPENTIN 100 MG CAP PO SCH ×3 (08:55→21:29)
[2021-03-15] MEDS: INSULIN ASPART 100 UNITS/ML 3 ML PEN SC SCH ×4 (08:56→21:32)
[2021-03-15] MEDS: metFORMIN HCL 500 MG TAB PO SCH ×2 (08:56→17:58)
--- NOTE | 2021-03-15 09:37 | Psychiatric Progress Note ---
Date of Service March 15, 2021 Impression / Recommendations Impression 56-year-old female with history of major depressive disorder currently presenting with decompensated depression. Patient is intentionally vague regarding her suicidal ideation. Patient Registration Rep understands it to be passive at this time with no active plans. (1) Major depressive disorder with current active episode: -The patient was admitted to the [address] [place] [address] inpatient mental health unit on every 15 minute checks behavioral with suicide precautions for safety. The patient will participate in group, recreational, and milieu therapies and will be offered additional individual and family sessions as clinically appropriate. 03/15/2021we will maintain patient on 100 mg of sertraline at this time. 03/14/21--patient sertraline dose will be increased to 100 mg nightly. 03/13/21patient's Zoloft (sertraline) dose of 50 mg will be increased to 75 mg nightly. 03/12/21--patient's Lexapro will be discontinued. Patient will be started on 50 mg of Zoloft nightly. Inventory Assets Strengths: Supportive family Needs: Medication compliance Stability Risk Factors Assessment Male: No : Yes Do You Have Access To A Gun?: No Health Problems: Yes Mental Health Diagnoses: Yes Substance Use Disorders: No Previous Attempt: No Protective Factors Assessment Employed: No Interval History Chief Complaint "Last night was very rough and I feel my mood going up and down.". Review of Systems Sleep Information Total Hours of Sleep: 6.5 Meal Information Percent Meal Consumed - Breakfast: 100 Percent Meal Consumed - Lunch: 95 Percent Meal Consumed - Dinner: 100 Subjective Subjective Patient was seen & assessed and interval progress reviewed with treatment team nursing and social work Patient states that she had a difficult night of sleep last night. She states that she found herself tossing and turning with poor sleep. She endorsed having nightmares as well. She is unsure if this can be attributed to the increase in the medication or to the natural progression of the grief process. Patient was told to continue to engage with group therapy as it has been shown to be benefiting her at this time. Mood still remains depressed Physical Exam Psychiatric Orientation: alert and oriented x 3 Apperance: + disheveled Eye Contact: + fair eye contact Motor Behavior: steady gait and station Speech: normal rate/rhythm/volume of speech Affect: + depressed affect Mood: + depressed mood Thought Process: goal directed thought process Thought Content: reality based without delusions, + hopelessness and + loneliness; no delusions Suicidal Thoughts: denies suicidal thoughts Homicidal Thoughts: denies homicidal thoughts Hallucinations: no auditory hallucinations and no visual hallucinations Cognition: recent memory grossly intact Estimated Intelligence: average estimated intelligence Insight: + fair insight Judgement: + poor judgement and + fair judgement Vital Signs (Past 24 Hours) Last Vital Signs Temp 36.4 C L 03/15/21 06:38 Pulse 68 03/15/21 06:39 Resp 16 03/15/21 06:38 BP 121/71 03/15/21 06:39 Pulse Ox 100 03/11/21 20:18 Results & Data ([facility]) Laboratory Results Laboratory Results - last 24 hr 03/14/21 03/14/21 03/14/21 12:20 17:14 20:49 POC Glucose 122 H 86 123 H 03/15/21 08:37 POC Glucose 128 H Current Inpatient Medications Current Inpatient Medications: Current Inpatient Medications Acetaminophen (Acetaminophen 325 Mg Tab) 650 mg PO Q4H PRN PRN Reason: Headache or Minor Fever Stop: 04/10/21 21:23 Al Hydrox/Mg Hydrox/Simethicone (Aluminum/Magnesium Susp 30 Ml Udc) 30 ml PO Q4H PRN PRN Reason: GI Upset Stop: 04/10/21 21:23 Amlodipine Besylate (Amlodipine Besylate 5 Mg Tab) 2.5 mg PO HS [facility] Stop: 04/11/21 21:59 Last Admin: 03/14/21 21:09 Dose: 2.5 mg Documented by: Aspirin (Aspirin 81 Mg Ectab) 81 mg PO DAILY [facility] Stop: 04/11/21 08:59 Last Admin: 03/15/21 08:55 Dose: 81 mg Documented by: Atorvastatin Calcium (Atorvastatin 40 Mg Tab) 80 mg PO HS [facility] Stop: 04/11/21 21:59 Last Admin: 03/14/21 21:09 Dose: 80 mg Documented by: Bismuth Subsalicylate (Bismuth Subsalicylate Liqd 236 Ml) 15 ml PO PRN PRN PRN Reason: Loose Stool Stop: 04/10/21 21:23 Dextrose (Dextrose 50% 50 Ml Syringe) 25 - 50 ml IV UD PRN; Protocol PRN Reason: Hypoglycemia Protocol Stop: 04/11/21 00:29 Gabapentin (Gabapentin 100 Mg Cap) 100 mg PO TID [facility] Stop: 04/11/21 08:59 Last Admin: 03/15/21 08:55 Dose: 100 mg Documented by: Glucagon (Glucagon For Inj 1 Mg Vial) 1 mg SQ UD PRN; Protocol PRN Reason: Hypoglycemia Protocol Stop: 04/11/21 00:29 Glucose (Glucose 40% Gel 15 Gm Tube) 15 - 30 gm PO UD PRN; Protocol PRN Reason: Hypoglycemia Protocol Stop: 04/11/21 00:29 Glucose (Glucose 10 Tabs/Tube) 4 - 8 tabs PO UD PRN; Protocol PRN Reason: Hypoglycemia Protocol Stop: 04/11/21 00:29 Hydroxyzine HCl (Hydroxyzine Hcl 25 Mg Tab) 25 mg PO Q4H PRN PRN Reason: Anxiety Stop: 04/12/21 16:59 Last Admin: 03/13/21 17:15 Dose: 25 mg Documented by: Insulin Aspart (Insulin Aspart 100 Units/Ml 3 Ml Pen) 0 units SC ACHS [facility] Stop: 04/11/21 00:29 Last Admin: 03/15/21 08:56 Dose: 4 units Documented by: Insulin Glargine (Insulin Glargine Solostar 100 Units/Ml 3 Ml Pen) 22 units SC HS [facility] Stop: 04/11/21 21:59 Last Admin: 03/14/21 21:18 Dose: 22 units Documented by: Levothyroxine Sodium (Levothyroxine Sodium 175 Mcg Tablet) 175 mcg PO DAILYBB [facility] Stop: 04/11/21 07:59 Last Admin: 03/15/21 08:55 Dose: 175 mcg Documented by: Lorazepam (Lorazepam 1 Mg Tab) 1 mg PO HS PRN PRN Reason: Anxiety Stop: 04/10/21 22:13 Magnesium Hydroxide (Magnesium Hydroxide Susp 30 Ml Udc) 30 ml PO DAILY PRN PRN Reason: Constipation Stop: 04/10/21 21:23 Metformin HCl (Metformin Hcl 500 Mg Tab) 1,000 mg PO BIDM [facility] Stop: 04/11/21 08:59 Last Admin: 03/15/21 08:56 Dose: 1,000 mg Documented by: Metoprolol Succinate (Metoprolol Succ 25mg Ext Rel Tab) 25 mg PO HS [facility] Stop: 04/11/21 21:59 Last Admin: 03/14/21 21:10 Dose: 25 mg Documented by: Miscellaneous (Carbohydrates For Hypoglycemia ) 15 - 30 gm PO UD PRN PRN Reason: Hypoglycemia Treatment Stop: 04/11/21 00:29 Miscellaneous Information (Pharmacy Glycemic Mgmt Consult) 1 ea N/A UD PRN PRN Reason: Consult Stop: 04/11/21 00:18 Sertraline HCl (Sertraline Hcl 100 Mg Tablet) 100 mg PO HS [facility] Stop: 04/13/21 21:59 Last Admin: 03/14/21 21:11 Dose: 100 mg Documented by: Sodium Chloride (Sodium Chloride 0.65% Na Soln 45 Ml ([place])) 1 - 2 sprays NA PRN PRN PRN Reason: Nasal Dryness/Congestion Stop: 04/10/21 21:23 Mental Health & Subst Abuse Tx Therapist Name of Therapist: None Aerodynamic Consultant Name of Aerodynamic Consultant: None Post Discharge Appointments Primary Care Physician Name Of Family Doctor: Caroline Diaz Primary Care Date of Appointment with PCP: 03/25/21 Time of Appointment with PCP: 11:00 a.m. Provider Appointment Comment: Wade Mathis Contact Information Discharge Discharge Address: [address] [place] [address], [place] [address]
[2021-03-15] MEDS: amLODIPine BESYLATE 5 MG TAB PO SCH (21:30)
[2021-03-15] MEDS: ATORVASTATIN 40 MG TAB PO SCH (21:30)
[2021-03-15] MEDS: INSULIN GLARGINE SOLOSTAR 100 UNITS/ML 3 ML PEN SC SCH (21:33)
[2021-03-15] MEDS: SERTRALINE HCL 100 MG TABLET PO SCH (21:34)
[2021-03-15] MEDS: METOPROLOL SUCC 25MG EXT REL TAB PO SCH (21:34)
--- NOTE | 2021-03-16 07:31 | Pharmacy Report ---
Pharmacy Glycemic Short Note 2 - Date of Service March 16, 2021 - Glycemic Short BSG Results (Last 24 hours): 03/15/21 03/15/21 03/15/21 08:37 12:32 17:05 POC Glucose 128 H 118 H 128 H 03/15/21 20:28 POC Glucose 104 H OUTPATIENT ANTIDIABETIC REGIMEN (pump settings were reviewed): * Metformin 1gm PO BIDM * Omnipod Dash: basal 43.95 units/day (1.8 units/hr 4612-3694; 1.9 units/hr 3072-9035), correction factor 18, carb ratio 5, max bolus 30 units * A1c = 9.8% (03/13/21) ASSESSMENT: 03/16: * Patient received a total of 44 units of insulin yesterday * 22 units basal + 22 units bolus * BSGs were: [phone] mg/dL * Fasting BSG this AM was 114 mg/dL * Patient has been well controlled on current regimen * No changes necessary 03/14: * Pt has received 32 units of insulin and metformin PO over the past 24hrs * 22 units of basal with Lantus * 10 units of bolus with NovoLog * BSGs 105-128 mg/dl * Excellent glycemic control on current regimen, no changes needed at this time PLAN FOR INPATIENT GLYCEMIC CONTROL: * Metformin 1g PO BIDM * Basal insulin * Lantus 22 units Q HS * Bolus insulin * NovoLog per scale ACHS or Q6hrs while NPO * Goal Range: Low 110 mg/dL - High 140 mg/dL * Correction Factor: 20 mg/dL/unit * Nutritional / Prandial insulin per carb ratio of 1 unit per 7 grams CHO consumed PLAN FOR DISCHARGE: * Insulin pump setting were altered at her last [facility] clinic visit, which was the same date the A1c 11.6 resulted. Will defer insulin regimen adjustments to the [facility] clinic on discharge. Updated A1c = 9.8% 03/13/21.
[2021-03-16] MEDS: metFORMIN HCL 500 MG TAB PO SCH ×2 (09:17→17:25)
[2021-03-16] MEDS: LEVOTHYROXINE SODIUM 175 MCG TABLET PO SCH (09:17)
[2021-03-16] MEDS: ASPIRIN 81 MG ECTAB PO SCH (09:17)
[2021-03-16] MEDS: GABAPENTIN 100 MG CAP PO SCH ×3 (09:17→21:24)
[2021-03-16] MEDS: INSULIN ASPART 100 UNITS/ML 3 ML PEN SC SCH ×4 (09:18→21:13)
[2021-03-16] MEDS ORDERED: clonazePAM 0.25 MG TAB PO STA (10:37)
--- NOTE | 2021-03-16 12:30 | Psychiatric Progress Note ---
Date of Service March 16, 2021 Impression / Recommendations Impression 56-year-old female with history of major depressive disorder currently presenting with decompensated depression. Patient is intentionally vague regarding her suicidal ideation. Ios Architect understands it to be passive at this time with no active plans. (1) Major depressive disorder with current active episode: -The patient was admitted to the [address] [place] [address] inpatient mental health unit on every 15 minute checks behavioral with suicide precautions for safety. The patient will participate in group, recreational, and milieu therapies and will be offered additional individual and family sessions as clinically appropriate. 03/16/2021atient states that she has been having adverse reactions to the medication. We will alter the treatment to address this. We will discontinue Zoloft tonight. We will start venlafaxine 37.5 mg p.o. every morning tomorrow morning. We will start clonazepam 0.25 mg twice daily today. Patient remains quite anxious at this time. 03/15/2021we will maintain patient on 100 mg of sertraline at this time. 03/14/21--patient sertraline dose will be increased to 100 mg nightly. 03/13/21patient's Zoloft (sertraline) dose of 50 mg will be increased to 75 mg nightly. 03/12/21--patient's Lexapro will be discontinued. Patient will be started on 50 mg of Zoloft nightly. Inventory Assets Strengths: Supportive family Needs: Medication compliance Stability Risk Factors Assessment Male: No : Yes Do You Have Access To A Gun?: No Health Problems: Yes Mental Health Diagnoses: Yes Substance Use Disorders: No Previous Attempt: No Protective Factors Assessment Employed: No Interval History Chief Complaint " I need to speak to about the medications I am having some side effects and I feel that they are not working well.". Review of Systems Sleep Information Total Hours of Sleep: 5.5 Meal Information Percent Meal Consumed - Breakfast: 75 Percent Meal Consumed - Lunch: 100 Percent Meal Consumed - Dinner: 100 Subjective Subjective Patient was seen & assessed and interval progress reviewed with treatment team nursing and social work Patient reports a poor night of sleep after having night terrors and tossing and turning. Patient feels that the medication is responsible as she formally continues to have such vivid dreams. Furthermore patient is complaining of severe heartburn at night. She states that this has been going on for 2 days and is now intolerable. She endorses anxious mood and displays this as she is speaking with comic book writer. Patient was given the option to take medications to address the side effects or to change to a different medication. Patient expressed agreement Physical Exam Psychiatric Orientation: alert and oriented x 3 Apperance: + disheveled Eye Contact: + fair eye contact Motor Behavior: steady gait and station Speech: normal rate/rhythm/volume of speech Affect: euthymic affect and + depressed affect Mood: + depressed mood Thought Process: goal directed thought process Thought Content: reality based without delusions, + hopelessness and + loneliness; no delusions Suicidal Thoughts: denies suicidal thoughts Homicidal Thoughts: denies homicidal thoughts Hallucinations: no auditory hallucinations and no visual hallucinations Cognition: recent memory grossly intact Estimated Intelligence: average estimated intelligence Insight: + fair insight Judgement: + poor judgement and + fair judgement Vital Signs (Past 24 Hours) Last Vital Signs Temp 36.4 C L 03/16/21 06:34 Pulse 76 03/16/21 06:35 Resp 16 03/16/21 06:34 BP 122/76 03/16/21 06:35 Pulse Ox 100 03/11/21 20:18 Results & Data ([facility]) Laboratory Results Laboratory Results - last 24 hr 03/15/21 03/15/21 03/15/21 12:32 17:05 20:28 POC Glucose 118 H 128 H 104 H 03/16/21 08:36 POC Glucose 114 H Current Inpatient Medications Current Inpatient Medications: Current Inpatient Medications Acetaminophen (Acetaminophen 325 Mg Tab) 650 mg PO Q4H PRN PRN Reason: Headache or Minor Fever Stop: 04/10/21 21:23 Al Hydrox/Mg Hydrox/Simethicone (Aluminum/Magnesium Susp 30 Ml Udc) 30 ml PO Q4H PRN PRN Reason: GI Upset Stop: 04/10/21 21:23 Amlodipine Besylate (Amlodipine Besylate 5 Mg Tab) 2.5 mg PO HS [facility] Stop: 04/11/21 21:59 Last Admin: 03/15/21 21:30 Dose: 2.5 mg Documented by: Aspirin (Aspirin 81 Mg Ectab) 81 mg PO DAILY [facility] Stop: 04/11/21 08:59 Last Admin: 03/16/21 09:17 Dose: 81 mg Documented by: Atorvastatin Calcium (Atorvastatin 40 Mg Tab) [address] [facility] Stop: 04/11/21 21:59 Last Admin: 03/15/21 21:30 Dose: 80 mg Documented by: Bismuth Subsalicylate (Bismuth Subsalicylate Liqd 236 Ml) 15 ml PO PRN PRN PRN Reason: Loose Stool Stop: 04/10/21 21:23 Dextrose (Dextrose 50% 50 Ml Syringe) 25 - 50 ml IV UD PRN; Protocol PRN Reason: Hypoglycemia Protocol Stop: 04/11/21 00:29 Gabapentin (Gabapentin 100 Mg Cap) [address] [facility] Stop: 04/11/21 08:59 Last Admin: 03/16/21 09:17 Dose: 100 mg Documented by: Glucagon (Glucagon For Inj 1 Mg Vial) 1 mg SQ UD PRN; Protocol PRN Reason: Hypoglycemia Protocol Stop: 04/11/21 00:29 Glucose (Glucose 40% Gel 15 Gm Tube) 15 - 30 gm PO UD PRN; Protocol PRN Reason: Hypoglycemia Protocol Stop: 04/11/21 00:29 Glucose (Glucose 10 Tabs/Tube) 4 - 8 tabs PO UD PRN; Protocol PRN Reason: Hypoglycemia Protocol Stop: 04/11/21 00:29 Hydroxyzine HCl (Hydroxyzine Hcl 25 Mg Tab) 25 mg PO Q4H PRN PRN Reason: Anxiety Stop: 04/12/21 16:59 Last Admin: 03/13/21 17:15 Dose: 25 mg Documented by: Insulin Aspart (Insulin Aspart 100 Units/Ml 3 Ml Pen) 0 units SC [facility] Stop: 04/11/21 00:29 Last Admin: 03/16/21 09:18 Dose: 7 units Documented by: Insulin Glargine (Insulin Glargine Solostar 100 Units/Ml 3 Ml Pen) 22 units SC [facility] Stop: 04/11/21 21:59 Last Admin: 03/15/21 21:33 Dose: 22 units Documented by: Levothyroxine Sodium (Levothyroxine Sodium 175 Mcg Tablet) [address] [facility] Stop: 04/11/21 07:59 Last Admin: 03/16/21 09:17 Dose: 175 mcg Documented by: Lorazepam (Lorazepam 1 Mg Tab) 1 mg PO HS PRN PRN Reason: Anxiety Stop: 04/10/21 22:13 Magnesium Hydroxide (Magnesium Hydroxide Susp 30 Ml Udc) 30 ml PO DAILY PRN PRN Reason: Constipation Stop: 04/10/21 21:23 Metformin HCl (Metformin Hcl 500 Mg Tab) 1,000 mg PO BIDM [facility] Stop: 04/11/21 08:59 Last Admin: 03/16/21 09:17 Dose: 1,000 mg Documented by: Metoprolol Succinate (Metoprolol Succ 25mg Ext Rel Tab) 25 mg PO HS [facility] Stop: 04/11/21 21:59 Last Admin: 03/15/21 21:34 Dose: Not Given Documented by: Miscellaneous (Carbohydrates For Hypoglycemia ) 15 - 30 gm PO UD PRN PRN Reason: Hypoglycemia Treatment Stop: 04/11/21 00:29 Miscellaneous Information (Pharmacy Glycemic Mgmt Consult) 1 ea N/A UD PRN PRN Reason: Consult Stop: 04/11/21 00:18 Sodium Chloride (Sodium Chloride 0.65% Na Soln 45 Ml ([place])) 1 - 2 sprays NA PRN PRN PRN Reason: Nasal Dryness/Congestion Stop: 04/10/21 21:23 Venlafaxine HCl (Venlafaxine Hcl Xr 37.5 Mg Capxr) 37.5 mg PO QAM [facility] Stop: 04/16/21 08:59 Mental Health & Subst Abuse Tx Therapist Name of Therapist: None Metal Tank Erector Name of Metal Tank Erector: None Post Discharge Appointments Primary Care Physician Name Of Family Doctor: Caroline Diaz Primary Care Date of Appointment with PCP: 03/25/21 Time of Appointment with PCP: 11:00 a.m. Provider Appointment Comment: Wade Mathis Contact Information Discharge Discharge Address: [address] [place] [address], [place] [address]
[2021-03-16] MEDS: INSULIN GLARGINE SOLOSTAR 100 UNITS/ML 3 ML PEN SC SCH (21:15)
[2021-03-16] MEDS: amLODIPine BESYLATE 5 MG TAB PO SCH (21:24)
[2021-03-16] MEDS: ATORVASTATIN 40 MG TAB PO SCH (21:25)
[2021-03-16] MEDS: METOPROLOL SUCC 25MG EXT REL TAB PO SCH (21:26)
[2021-03-16] MEDS: hydrOXYzine HCl 25 MG TAB PO PRN (21:27)
[2021-03-16] MEDS: clonazePAM 0.25 MG TAB PO SCH (21:46)
[2021-03-16] MEDS ORDERED: INSULIN GLARGINE SOLOSTAR 100 UNITS/ML 3 ML PEN SC SCH (22:00)
[2021-03-17] MEDS: INSULIN ASPART 100 UNITS/ML 3 ML PEN SC SCH ×4 (08:47→20:31)
[2021-03-17] MEDS: GABAPENTIN 100 MG CAP PO SCH ×3 (08:50→20:36)
[2021-03-17] MEDS: LEVOTHYROXINE SODIUM 175 MCG TABLET PO SCH (08:50)
[2021-03-17] MEDS: clonazePAM 0.25 MG TAB PO SCH ×2 (08:50→20:36)
[2021-03-17] MEDS: VENLAFAXINE HCL XR 37.5 MG CAPXR PO SCH (08:51)
[2021-03-17] MEDS: ASPIRIN 81 MG ECTAB PO SCH (08:51)
[2021-03-17] MEDS: metFORMIN HCL 500 MG TAB PO SCH ×2 (08:51→17:39)
--- NOTE | 2021-03-17 11:56 | Psychiatric Progress Note ---
Date of Service March 17, 2021 Impression / Recommendations Impression 56-year-old female with history of major depressive disorder currently presenting with decompensated depression. Patient is intentionally vague regarding her suicidal ideation. Cherry Picker Operator understands it to be passive at this time with no active plans. (1) Major depressive disorder with current active episode: -The patient was admitted to the [address] [place] [address] inpatient mental health unit on every 15 minute checks behavioral with suicide precautions for safety. The patient will participate in group, recreational, and milieu therapies and will be offered additional individual and family sessions as clinically appropriate. 03/16/2021atient states that she has been having adverse reactions to the medication. We will alter the treatment to address this. We will discontinue Zoloft tonight. We will start venlafaxine 37.5 mg p.o. every morning tomorrow morning. We will start clonazepam 0.25 mg twice daily today. Patient remains quite anxious at this time. 03/15/2021we will maintain patient on 100 mg of sertraline at this time. 03/14/21--patient sertraline dose will be increased to 100 mg nightly. 03/13/21patient's Zoloft (sertraline) dose of 50 mg will be increased to 75 mg nightly. 03/12/21--patient's Lexapro will be discontinued. Patient will be started on 50 mg of Zoloft nightly. Inventory Assets Strengths: Supportive family Needs: Medication compliance Stability Risk Factors Assessment Male: No : Yes Do You Have Access To A Gun?: No Health Problems: Yes Mental Health Diagnoses: Yes Substance Use Disorders: No Previous Attempt: No Protective Factors Assessment Employed: No Interval History Chief Complaint "Thank you I am feeling okay". Review of Systems Sleep Information Total Hours of Sleep: 6.5 Meal Information Percent Meal Consumed - Breakfast: 100 Percent Meal Consumed - Lunch: 100 Percent Meal Consumed - Dinner: 75 Subjective Subjective Patient was seen & assessed and interval progress reviewed with treatment team nursing and social work Patient seen in the dayroom interacting appropriately with peers. Patient states that she is no longer experiencing those adverse side effects since having stopped the Zoloft. She does not report any side effects of the venlafaxine. No side effects observed. Patient states that her mood seems improved. She continues to attend groups and feels they are beneficial to her. She is denying any suicidal ideation. She reports getting a good night sleep last night after taking medication to help her with sleep. Physical Exam Psychiatric Orientation: alert and oriented x 3 Apperance: + disheveled Eye Contact: + fair eye contact Motor Behavior: steady gait and station Speech: normal rate/rhythm/volume of speech Affect: euthymic affect and + depressed affect Mood: + depressed mood Thought Process: goal directed thought process Thought Content: reality based without delusions, + hopelessness and + loneliness; no delusions Suicidal Thoughts: denies suicidal thoughts Homicidal Thoughts: denies homicidal thoughts Hallucinations: no auditory hallucinations and no visual hallucinations Cognition: recent memory grossly intact Estimated Intelligence: average estimated intelligence Insight: + fair insight Judgement: + poor judgement and + fair judgement Vital Signs (Past 24 Hours) Last Vital Signs Temp 36.6 C 03/17/21 06:42 Pulse 73 03/17/21 06:43 Resp 16 03/17/21 06:42 BP 111/72 03/17/21 06:43 Pulse Ox 100 03/11/21 20:18 Results & Data ([facility]) Laboratory Results Laboratory Results - last 24 hr 03/16/21 03/16/21 03/16/21 12:42 16:47 20:43 POC Glucose 154 H 140 H 140 H 03/17/21 08:34 POC Glucose 135 H Current Inpatient Medications Current Inpatient Medications: Current Inpatient Medications Acetaminophen (Acetaminophen 325 Mg Tab) 650 mg PO Q4H PRN PRN Reason: Headache or Minor Fever Stop: 04/10/21 21:23 Al Hydrox/Mg Hydrox/Simethicone (Aluminum/Magnesium Susp 30 Ml Udc) 30 ml PO Q4H PRN PRN Reason: GI Upset Stop: 04/10/21 21:23 Amlodipine Besylate (Amlodipine Besylate 5 Mg Tab) 2.5 mg PO HS [facility] Stop: 04/11/21 21:59 Last Admin: 03/16/21 21:24 Dose: 2.5 mg Documented by: Aspirin (Aspirin 81 Mg Ectab) 81 mg PO DAILY [facility] Stop: 04/11/21 08:59 Last Admin: 03/17/21 08:51 Dose: 81 mg Documented by: Atorvastatin Calcium (Atorvastatin 40 Mg Tab) 80 mg PO HS [facility] Stop: 04/11/21 21:59 Last Admin: 03/16/21 21:25 Dose: 80 mg Documented by: Bismuth Subsalicylate (Bismuth Subsalicylate Liqd 236 Ml) 15 ml PO PRN PRN PRN Reason: Loose Stool Stop: 04/10/21 21:23 Clonazepam (Clonazepam 0.25 Mg Tab) 0.25 mg PO BID [facility] Stop: 04/15/21 21:44 Last Admin: 03/17/21 08:50 Dose: 0.25 mg Documented by: Dextrose (Dextrose 50% 50 Ml Syringe) 25 - 50 ml IV UD PRN; Protocol PRN Reason: Hypoglycemia Protocol Stop: 04/11/21 00:29 Gabapentin (Gabapentin 100 Mg Cap) 100 mg PO TID [facility] Stop: 04/11/21 08:59 Last Admin: 03/17/21 08:50 Dose: 100 mg Documented by: Glucagon (Glucagon For Inj 1 Mg Vial) 1 mg SQ UD PRN; Protocol PRN Reason: Hypoglycemia Protocol Stop: 04/11/21 00:29 Glucose (Glucose 40% Gel 15 Gm Tube) 15 - 30 gm PO UD PRN; Protocol PRN Reason: Hypoglycemia Protocol Stop: 04/11/21 00:29 Glucose (Glucose 10 Tabs/Tube) 4 - 8 tabs PO UD PRN; Protocol PRN Reason: Hypoglycemia Protocol Stop: 04/11/21 00:29 Hydroxyzine HCl (Hydroxyzine Hcl 25 Mg Tab) 25 mg PO Q4H PRN PRN Reason: Anxiety Stop: 04/12/21 16:59 Last Admin: 03/16/21 21:27 Dose: 25 mg Documented by: Insulin Aspart (Insulin Aspart 100 Units/Ml 3 Ml Pen) 0 units SC A[facility] Stop: 04/11/21 00:29 Last Admin: 03/17/21 08:47 Dose: 4 units Documented by: Insulin Glargine (Insulin Glargine Solostar 100 Units/Ml 3 Ml Pen) 22 units SC [facility] Stop: 04/11/21 21:59 Last Admin: 03/16/21 21:15 Dose: 22 units Documented by: Levothyroxine Sodium (Levothyroxine Sodium 175 Mcg Tablet) 175 mcg PO DAILYBB [facility] Stop: 04/11/21 07:59 Last Admin: 03/17/21 08:50 Dose: 175 mcg Documented by: Lorazepam (Lorazepam 1 Mg Tab) 1 mg PO HS PRN PRN Reason: Anxiety Stop: 04/10/21 22:13 Magnesium Hydroxide (Magnesium Hydroxide Susp 30 Ml Udc) 30 ml PO DAILY PRN PRN Reason: Constipation Stop: 04/10/21 21:23 Metformin HCl (Metformin Hcl 500 Mg Tab) 1,000 mg PO BIDM [facility] Stop: 04/11/21 08:59 Last Admin: 03/17/21 08:51 Dose: 1,000 mg Documented by: Metoprolol Succinate (Metoprolol Succ 25mg Ext Rel Tab) 25 mg PO HS [facility] Stop: 04/11/21 21:59 Last Admin: 03/16/21 21:26 Dose: 25 mg Documented by: Miscellaneous (Carbohydrates For Hypoglycemia ) 15 - 30 gm PO UD PRN PRN Reason: Hypoglycemia Treatment Stop: 04/11/21 00:29 Miscellaneous Information (Pharmacy Glycemic Mgmt Consult) 1 ea N/A UD PRN PRN Reason: Consult Stop: 04/11/21 00:18 Sodium Chloride (Sodium Chloride 0.65% Na Soln 45 Ml ([place])) 1 - 2 sprays NA PRN PRN PRN Reason: Nasal Dryness/Congestion Stop: 04/10/21 21:23 Venlafaxine HCl (Venlafaxine Hcl Xr 37.5 Mg Capxr) 37.5 mg PO QAM [facility] Stop: 04/16/21 08:59 Last Admin: 03/17/21 08:51 Dose: 37.5 mg Documented by: Mental Health & Subst Abuse Tx Therapist Name of Therapist: None Disc Inspector Name of Disc Inspector: None Post Discharge Appointments Primary Care Physician Name Of Family Doctor: Caroline Diaz Primary Care Date of Appointment with PCP: 03/25/21 Time of Appointment with PCP: 11:00 a.m. Provider Appointment Comment: Wade Mathis Contact Information Discharge Discharge Address: [address] [place] [address], [place] [address]
[2021-03-17] MEDS: amLODIPine BESYLATE 5 MG TAB PO SCH (20:36)
[2021-03-17] MEDS: ATORVASTATIN 40 MG TAB PO SCH (20:37)
[2021-03-17] MEDS: METOPROLOL SUCC 25MG EXT REL TAB PO SCH (20:38)
[2021-03-17] MEDS: INSULIN GLARGINE SOLOSTAR 100 UNITS/ML 3 ML PEN SC SCH (20:38)
[2021-03-17] MEDS: hydrOXYzine HCl 25 MG TAB PO PRN (20:42)
[2021-03-18] MEDS: LEVOTHYROXINE SODIUM 175 MCG TABLET PO SCH (08:14)
[2021-03-18] MEDS: clonazePAM 0.25 MG TAB PO SCH ×2 (08:36→21:27)
[2021-03-18] MEDS: ASPIRIN 81 MG ECTAB PO SCH (08:36)
[2021-03-18] MEDS: metFORMIN HCL 500 MG TAB PO SCH ×2 (08:37→17:18)
[2021-03-18] MEDS: GABAPENTIN 100 MG CAP PO SCH ×3 (08:37→21:27)
[2021-03-18] MEDS: VENLAFAXINE HCL XR 37.5 MG CAPXR PO SCH (08:38)
[2021-03-18] MEDS: INSULIN ASPART 100 UNITS/ML 3 ML PEN SC SCH ×4 (08:45→21:25)
--- NOTE | 2021-03-18 15:28 | Psychiatric Progress Note ---
Date of Service March 18, 2021 Impression / Recommendations Impression 56-year-old female with history of major depressive disorder currently presenting with decompensated depression. Patient is intentionally vague regarding her suicidal ideation. Sap Bw Architect understands it to be passive at this time with no active plans. (1) Major depressive disorder with current active episode: -The patient was admitted to the [address] [place] [address] inpatient mental health unit on every 15 minute checks behavioral with suicide precautions for safety. The patient will participate in group, recreational, and milieu therapies and will be offered additional individual and family sessions as clinically appropriate. 03/18/2021--patient continues to tolerate venlafaxine medication well. Also doing well on clonazepam medication. Patient's mood seems to be returning to baseline and improving incrementally. 03/16/2021atient states that she has been having adverse reactions to the medication. We will alter the treatment to address this. We will discontinue Zoloft tonight. We will start venlafaxine 37.5 mg p.o. every morning tomorrow morning. We will start clonazepam 0.25 mg twice daily today. Patient remains quite anxious at this time. 03/15/2021we will maintain patient on 100 mg of sertraline at this time. 03/14/21--patient sertraline dose will be increased to 100 mg nightly. 03/13/21patient's Zoloft (sertraline) dose of 50 mg will be increased to 75 mg nightly. 03/12/21--patient's Lexapro will be discontinued. Patient will be started on 50 mg of Zoloft nightly. Inventory Assets Strengths: Supportive family Needs: Medication compliance Stability Risk Factors Assessment Male: No : Yes Do You Have Access To A Gun?: No Health Problems: Yes Mental Health Diagnoses: Yes Substance Use Disorders: No Previous Attempt: No Protective Factors Assessment Employed: No Interval History Chief Complaint "I am doing okay". Review of Systems Sleep Information Total Hours of Sleep: 7 Meal Information Percent Meal Consumed - Breakfast: 100 Percent Meal Consumed - Lunch: 100 Percent Meal Consumed - Dinner: 100 Subjective Subjective Patient was seen & assessed and interval progress reviewed with treatment team nursing and social work. Patient is eating and sleeping well. Denies any adverse effects of the medications. Patient was compliant no side effects observed. Patient reports eating her meals as well as sleeping a good night sleep. Denies issues with heartburn that caused this to change regimen previously. Patient seems to be making good progress here. We will start discharge planning. Physical Exam Psychiatric Orientation: alert and oriented x 3 Apperance: + disheveled Eye Contact: + fair eye contact Motor Behavior: steady gait and station Speech: normal rate/rhythm/volume of speech Affect: euthymic affect and + depressed affect Mood: + depressed mood Thought Process: goal directed thought process Thought Content: reality based without delusions, + hopelessness and + loneliness; no delusions Suicidal Thoughts: denies suicidal thoughts Homicidal Thoughts: denies homicidal thoughts Hallucinations: no auditory hallucinations and no visual hallucinations Cognition: recent memory grossly intact Estimated Intelligence: average estimated intelligence Insight: + fair insight Judgement: + poor judgement and + fair judgement Vital Signs (Past 24 Hours) Last Vital Signs Temp 36.6 C 03/18/21 06:31 Pulse 75 03/18/21 06:32 Resp 16 03/18/21 06:31 BP 125/78 03/18/21 06:32 Pulse Ox 100 03/11/21 20:18 Results & Data ([facility]) Laboratory Results Laboratory Results - last 24 hr 03/17/21 03/17/21 03/18/21 17:11 20:10 08:10 POC Glucose 108 H 138 H 178 H 03/18/21 12:30 POC Glucose 168 H Current Inpatient Medications Current Inpatient Medications: Current Inpatient Medications Acetaminophen (Acetaminophen 325 Mg Tab) 650 mg PO Q4H PRN PRN Reason: Headache or Minor Fever Stop: 04/10/21 21:23 Al Hydrox/Mg Hydrox/Simethicone (Aluminum/Magnesium Susp 30 Ml Udc) 30 ml PO Q4H PRN PRN Reason: GI Upset Stop: 04/10/21 21:23 Amlodipine Besylate (Amlodipine Besylate 5 Mg Tab) 2.5 mg PO HS [facility] Stop: 04/11/21 21:59 Last Admin: 03/17/21 20:36 Dose: 2.5 mg Documented by: Aspirin (Aspirin 81 Mg Ectab) 81 mg PO DAILY [facility] Stop: 04/11/21 08:59 Last Admin: 03/18/21 08:36 Dose: 81 mg Documented by: Atorvastatin Calcium (Atorvastatin 40 Mg Tab) 80 mg PO HS [facility] Stop: 04/11/21 21:59 Last Admin: 03/17/21 20:37 Dose: 80 mg Documented by: Bismuth Subsalicylate (Bismuth Subsalicylate Liqd 236 Ml) 15 ml PO PRN PRN PRN Reason: Loose Stool Stop: 04/10/21 21:23 Clonazepam (Clonazepam 0.25 Mg Tab) 0.25 mg PO BID [facility] Stop: 04/15/21 21:44 Last Admin: 03/18/21 08:36 Dose: 0.25 mg Documented by: Dextrose (Dextrose 50% 50 Ml Syringe) 25 - 50 ml IV UD PRN; Protocol PRN Reason: Hypoglycemia Protocol Stop: 04/11/21 00:29 Gabapentin (Gabapentin 100 Mg Cap) 100 mg PO TID [facility] Stop: 04/11/21 08:59 Last Admin: 03/18/21 14:30 Dose: 100 mg Documented by: Glucagon (Glucagon For Inj 1 Mg Vial) 1 mg SQ UD PRN; Protocol PRN Reason: Hypoglycemia Protocol Stop: 04/11/21 00:29 Glucose (Glucose 40% Gel 15 Gm Tube) 15 - 30 gm PO UD PRN; Protocol PRN Reason: Hypoglycemia Protocol Stop: 04/11/21 00:29 Glucose (Glucose 10 Tabs/Tube) 4 - 8 tabs PO UD PRN; Protocol PRN Reason: Hypoglycemia Protocol Stop: 04/11/21 00:29 Hydroxyzine HCl (Hydroxyzine Hcl 25 Mg Tab) 25 mg PO Q4H PRN PRN Reason: Anxiety Stop: 04/12/21 16:59 Last Admin: 03/17/21 20:42 Dose: 25 mg Documented by: Insulin Aspart (Insulin Aspart 100 Units/Ml 3 Ml Pen) 0 units SC ACHS [facility] Stop: 04/11/21 00:29 Last Admin: 03/18/21 12:53 Dose: 12 units Documented by: Insulin Glargine (Insulin Glargine Solostar 100 Units/Ml 3 Ml Pen) 22 units SC HS [facility] Stop: 04/11/21 21:59 Last Admin: 03/17/21 20:38 Dose: 22 units Documented by: Levothyroxine Sodium (Levothyroxine Sodium 175 Mcg Tablet) 175 mcg PO DAILYBB [facility] Stop: 04/11/21 07:59 Last Admin: 03/18/21 08:14 Dose: 175 mcg Documented by: Lorazepam (Lorazepam 1 Mg Tab) 1 mg PO HS PRN PRN Reason: Anxiety Stop: 04/10/21 22:13 Magnesium Hydroxide (Magnesium Hydroxide Susp 30 Ml Udc) 30 ml PO DAILY PRN PRN Reason: Constipation Stop: 04/10/21 21:23 Metformin HCl (Metformin Hcl 500 Mg Tab) 1,000 mg PO BIDM [facility] Stop: 04/11/21 08:59 Last Admin: 03/18/21 08:37 Dose: 1,000 mg Documented by: Metoprolol Succinate (Metoprolol Succ 25mg Ext Rel Tab) 25 mg PO HS [facility] Stop: 04/11/21 21:59 Last Admin: 03/17/21 20:38 Dose: 25 mg Documented by: Miscellaneous (Carbohydrates For Hypoglycemia ) 15 - 30 gm PO UD PRN PRN Reason: Hypoglycemia Treatment Stop: 04/11/21 00:29 Miscellaneous Information (Pharmacy Glycemic Mgmt Consult) 1 ea N/A UD PRN PRN Reason: Consult Stop: 04/11/21 00:18 Sodium Chloride (Sodium Chloride 0.65% Na Soln 45 Ml ([place])) 1 - 2 sprays NA PRN PRN PRN Reason: Nasal Dryness/Congestion Stop: 04/10/21 21:23 Venlafaxine HCl (Venlafaxine Hcl Xr 37.5 Mg Capxr) 37.5 mg PO QAM [facility] Stop: 04/16/21 08:59 Last Admin: 03/18/21 08:38 Dose: 37.5 mg Documented by: Mental Health & Subst Abuse Tx Psychiatrist Name of Psychiatrist: Caroline Psychiatry Psychiatrist's Psychiatric Appointment Comment: Sent referral - please follow up through your PCP Therapist Name of Therapist: None Senior Oracle Soa Developer Name of Senior Oracle Soa Developer: MACEY Nicole Phone Number for Senior Oracle Soa Developer: cell: [phone] Case Management Appointment Comment: Will contact you to set up case work aide Post Discharge Appointments Primary Care Physician Name Of Family Doctor: Caroline Diaz Primary Care Date of Appointment with PCP: 03/25/21 Time of Appointment with PCP: 11:00 a.m. Provider Appointment Comment: Wade Mathis Specialist Name of Specialist: [facility] Phone Number for Specialist: [phone] Contact Information Discharge Discharge Address: [address] [place] [address], [place] [address]
[2021-03-18] MEDS: hydrOXYzine HCl 25 MG TAB PO PRN (19:11)
[2021-03-18] MEDS: INSULIN GLARGINE SOLOSTAR 100 UNITS/ML 3 ML PEN SC SCH (21:26)
[2021-03-18] MEDS: METOPROLOL SUCC 25MG EXT REL TAB PO SCH (21:27)
[2021-03-18] MEDS: ATORVASTATIN 40 MG TAB PO SCH (21:27)
[2021-03-18] MEDS: amLODIPine BESYLATE 5 MG TAB PO SCH (21:27)
[2021-03-19] MEDS: LEVOTHYROXINE SODIUM 175 MCG TABLET PO SCH (07:56)
[2021-03-19] MEDS: ASPIRIN 81 MG ECTAB PO SCH (08:46)
[2021-03-19] MEDS: GABAPENTIN 100 MG CAP PO SCH ×2 (08:46→14:12)
[2021-03-19] MEDS: metFORMIN HCL 500 MG TAB PO SCH (08:46)
[2021-03-19] MEDS: VENLAFAXINE HCL XR 37.5 MG CAPXR PO SCH (08:47)
[2021-03-19] MEDS: clonazePAM 0.25 MG TAB PO SCH (08:48)
[2021-03-19] MEDS: INSULIN ASPART 100 UNITS/ML 3 ML PEN SC SCH ×2 (09:06→12:57)
--- NOTE | 2021-03-19 10:30 | Pharmacy Report ---
Pharmacy Glycemic Short Note 2 - Date of Service March 19, 2021 - Glycemic Short BSG Results (Last 24 hours): 03/18/21 03/18/21 03/18/21 12:30 17:16 20:56 POC Glucose 168 H 132 H 155 H 03/19/21 08:33 POC Glucose 156 H OUTPATIENT ANTIDIABETIC REGIMEN (pump settings were reviewed): * Metformin 1gm PO BIDM * Omnipod Dash: basal 43.95 units/day (1.8 units/hr 7776-6476; 1.9 units/hr 6735-6015), correction factor 18, carb ratio 5, max bolus 30 units * A1c = 9.8% (03/13/21) ASSESSMENT: 03/19/21: * No changes to insulin regimen for the past several days. * BSGs remain stable. * Continue current regimen. 03/16: * Patient received a total of 44 units of insulin yesterday * 22 units basal + 22 units bolus * BSGs were: [id number] mg/dL * Fasting BSG this AM was 114 mg/dL * Patient has been well controlled on current regimen * No changes necessary 03/14: * Pt has received 32 units of insulin and metformin PO over the past 24hrs * 22 units of basal with Lantus * 10 units of bolus with NovoLog * BSGs 105-128 mg/dl * Excellent glycemic control on current regimen, no changes needed at this time PLAN FOR INPATIENT GLYCEMIC CONTROL: * Metformin 1g PO BIDM * Basal insulin * Lantus 22 units Q HS * Bolus insulin * NovoLog per scale ACHS or Q6hrs while NPO * Goal Range: Low 110 mg/dL - High 140 mg/dL * Correction Factor: 20 mg/dL/unit * Nutritional / Prandial insulin per carb ratio of 1 unit per 6 grams CHO consumed PLAN FOR DISCHARGE: * Insulin pump setting were altered at her last [place] clinic visit, which was the same date the A1c 11.6 resulted. Will defer insulin regimen adjustments to the [facility] clinic on discharge. Updated A1c = 9.8% 03/13/21.
--- NOTE | 2021-03-20 09:51 | Discharge Summary ---
Date of Service March 20, 2021 History of Present Illness Patient is a 56-year-old woman with a history of major depressive disorder who presents following a decompensation in her depression. Patient states that she recently had 2 witnessed loss of one of her close friends. This friend while the patient was living in the home with them which reminded her of her 's passing 10 years prior as well as her father's passing 50 years prior. Patient states that she initially felt herself starting to become more depressed but thought she could manage on her own. After some time she decided to stay with her daughter for a week. Patient states that this was a good weekend she was around her grandchildren and began to feel better. Patient was then set up in her own apartment. Upon entering her apartment patient was unable to fall asleep and found herself tearful and upset most of the night. When her daughter discovered her mood she brought her to the emergency department for evaluation. Patient's daughter adds that mother had been neglecting herself including not using her insulin pump. Patient acknowledges poor mood and poor sleep for the past month. She also acknowledges feelings of hopelessness and worthlessness. She states she has a difficult time dealing with the loss as well as a difficult time being alone. Patient states that her motivation and energy levels are low. She is intentionally vague and guarded when discussing suicidal ideation, but does acknowledge that she had stopped taking her necessary medication including her insulin. Physical Exam Psychiatric Orientation: alert and oriented x 3 Apperance: + disheveled Eye Contact: + fair eye contact Motor Behavior: steady gait and station Speech: normal rate/rhythm/volume of speech Affect: euthymic affect Mood: no depressed mood Thought Process: goal directed thought process Thought Content: reality based without delusions; no delusions Suicidal Thoughts: denies suicidal thoughts Homicidal Thoughts: denies homicidal thoughts Hallucinations: no auditory hallucinations and no visual hallucinations Cognition: recent memory grossly intact Estimated Intelligence: average estimated intelligence Insight: good insight Judgement: good judgement Vital Signs (Past 24 Hours) Last Vital Signs Temp 36.4 C L 03/19/21 13:41 Pulse 70 03/19/21 13:41 Resp 16 03/19/21 13:41 BP 103/65 03/19/21 13:41 Pulse Ox 100 03/19/21 13:41 Principal Diagnosis Major depressive disorder Psychiatric Data See daily stay summary. In short, safety was maintained, and the patient was cooperative with care. Medication changes included starting patient on Clonazepam and Venlafaxine and they tolerated this well. A family session was held and safety plan was completed prior to discharge. Day of Discharge Assessment Today the patient voices readiness for discharge. They note improvement in mood and deny thoughts to harm self or others. Thoughts remain organized and they are improved from admission. There is no evidence of psychosis. They agree to take medications as prescribed and keep follow-up appointments. They are stable for discharge to outpatient level of care. Transition of Care Transition Of Care Record: was reviewed with the patient Advance Directives Advance Directives Information Provided: Yes Advance Directives: No Mental Health Advance Directive: No Advance Directives on File: No Living Will: No Power of External Relations Director: No Advance Directives Reason:: Declines as Mental Health Visit. Risk Factors Assessment Male: No : Yes Do You Have Access To A Gun?: No Health Problems: Yes Mental Health Diagnoses: Yes Substance Use Disorders: No Previous Attempt: No Protective Factors Assessment Employed: No Tobacco Cessation at Discharge Tobacco Cessation Medication Prescribed at Discharge: Not Applicable/Non-Smoker Total Time Total Time Spent: Greater Than 30 Minutes Total Time Includes: Examination of the patient, Discharge Planning and Medication Reconciliation Discharge Data Lab Results 03/11/21 03/11/21 03/11/21 16:57 16:57 17:08 WBC RBC Hgb Hct MCV MCH MCHC RDW Std Deviation RDW Coeff of Daphney Plt Count MPV Immature Gran % (Auto) Neut % (Auto) Lymph % (Auto) [place] % (Auto) Eos % (Auto) Baso % (Auto) Neut # (Auto) Lymph # (Auto) [place] # (Auto) Eos # (Auto) Baso # (Auto) Immature Gran # (Auto) Sodium Potassium Chloride Carbon Dioxide Anion Gap BUN Creatinine Est Cr Clr Drug Dosing Est GFR ( Amer) Est GFR (Non-Af Amer) BUN/Creatinine Ratio Glucose POC Glucose Estimat Average Glucose Hemoglobin A1c Calcium Total Bilirubin AST ALT Alkaline Phosphatase Total Protein Albumin Globulin Albumin/Globulin Ratio TSH Free T4 Urine Color Yellow Urine Appearance Clear Urine pH 5.0 Ur Specific [place] 1.018 Urine Protein Negative Urine Glucose (UA) Negative Urine Ketones Trace H Urine Blood Negative Urine Nitrite Negative Urine Bilirubin Negative Urine Urobilinogen Negative Ur Leukocyte Esterase Trace H Urine WBC (Auto) 5-10 H Urine RBC (Auto) 0-4 U Hyaline Cast (Auto) 1-5 U Epithel Cells (Auto) >30 H Urine Bacteria (Auto) Negative Ur Renal Epithelial Cell Not Reportable Salicylates Urine Opiates Screen Ur Methadone, Qual Acetaminophen Urine Barbiturates Ur Phencyclidine (PCP) U Amphetamin/Meth Scrn MDMA (Ecstasy) Screen U Benzodiazepines Scrn Ur Cocaine Metabolite U Marijuana (THC) Screen Ethyl Alcohol mg/dL COVID-19 [facility] SARS-CoV-2, RNA, NAAT NEGATIVE 03/11/21 03/11/21 03/11/21 17:08 17:18 17:32 WBC 10.62 RBC 4.98 Hgb 14.1 Hct 42.7 MCV 85.7 MCH 28.3 MCHC 33.0 RDW Std Deviation 42.2 RDW Coeff of Daphney 13.5 Plt Count 296 MPV 10.0 Immature Gran % (Auto) 0.2 Neut % (Auto) 58.9 Lymph % (Auto) 29.1 [place] % (Auto) 9.6 Eos % (Auto) 1.7 Baso % (Auto) 0.5 Neut # (Auto) 6.26 Lymph # (Auto) 3.09 [place] # (Auto) 1.02 H Eos # (Auto) 0.18 Baso # (Auto) 0.05 Immature Gran # (Auto) 0.02 Sodium Potassium Chloride Carbon Dioxide Anion Gap BUN Creatinine Est Cr Clr Drug Dosing Est GFR ( Amer) Est GFR (Non-Af Amer) BUN/Creatinine Ratio Glucose POC Glucose 144 H Estimat Average Glucose Hemoglobin A1c Calcium Total Bilirubin AST ALT Alkaline Phosphatase Total Protein Albumin Globulin Albumin/Globulin Ratio TSH Free T4 Urine Color Urine Appearance Urine pH Ur Specific [place] Urine Protein Urine Glucose (UA) Urine Ketones Urine Blood Urine Nitrite Urine Bilirubin Urine Urobilinogen Ur Leukocyte Esterase Urine WBC (Auto) Urine RBC (Auto) U Hyaline Cast (Auto) U Epithel Cells (Auto) Urine Bacteria (Auto) Ur Renal Epithelial Cell Salicylates Urine Opiates Screen Neg Ur Methadone, Qual Neg Acetaminophen Urine Barbiturates Neg Ur Phencyclidine (PCP) Neg U Amphetamin/Meth Scrn Neg MDMA (Ecstasy) Screen Neg U Benzodiazepines Scrn Neg Ur Cocaine Metabolite Neg U Marijuana (THC) Screen Neg Ethyl Alcohol mg/dL COVID-19 Eval Order SARS-CoV-2, RNA, NAAT 03/11/21 03/11/21 03/11/21 17:32 17:32 17:32 WBC RBC Hgb Hct MCV MCH MCHC RDW Std Deviation RDW Coeff of Daphney Plt Count MPV Immature Gran % (Auto) Neut % (Auto) Lymph % (Auto) [place] % (Auto) Eos % (Auto) Baso % (Auto) Neut # (Auto) Lymph # (Auto) [place] # (Auto) Eos # (Auto) Baso # (Auto) Immature Gran # (Auto) Sodium 139 Potassium 4.3 Chloride 104 Carbon Dioxide 28 Anion Gap 7.0 BUN 19 H Creatinine 0.96 Est Cr Clr Drug Dosing 76.4 Est GFR ( Amer) 75.6 Est GFR (Non-Af Amer) 65.2 BUN/Creatinine Ratio 19.4 Glucose 147 H POC Glucose Estimat Average Glucose Hemoglobin A1c Calcium 7.8 L Total Bilirubin 1.4 H AST 36 ALT 37 Alkaline Phosphatase 99 Total Protein 8.1 Albumin 4.0 Globulin 4.1 H Albumin/Globulin Ratio 1.0 TSH 0.084 L Free T4 1.84 H Urine Color Urine Appearance Urine pH Ur Specific [place] Urine Protein Urine Glucose (UA) Urine Ketones Urine Blood Urine Nitrite Urine Bilirubin Urine Urobilinogen Ur Leukocyte Esterase Urine WBC (Auto) Urine RBC (Auto) U Hyaline Cast (Auto) U Epithel Cells (Auto) Urine Bacteria (Auto) Ur Renal Epithelial Cell Salicylates < 1.7 L Urine Opiates Screen Ur Methadone, Qual Acetaminophen < 2 L Urine Barbiturates Ur Phencyclidine (PCP) U Amphetamin/Meth Scrn MDMA (Ecstasy) Screen U Benzodiazepines Scrn Ur Cocaine Metabolite U Marijuana (THC) Screen Ethyl Alcohol mg/dL < 3.0 COVID-19 Eval Order SARS-CoV-2, RNA, NAAT 03/11/21 03/12/21 03/12/21 20:04 00:27 09:58 WBC RBC Hgb Hct MCV MCH MCHC RDW Std Deviation RDW Coeff of Daphney Plt Count MPV Immature Gran % (Auto) Neut % (Auto) Lymph % (Auto) [place] % (Auto) Eos % (Auto) Baso % (Auto) Neut # (Auto) Lymph # (Auto) [place] # (Auto) Eos # (Auto) Baso # (Auto) Immature Gran # (Auto) Sodium Potassium Chloride Carbon Dioxide Anion Gap BUN Creatinine Est Cr Clr Drug Dosing Est GFR ( Amer) Est GFR (Non-Af Amer) BUN/Creatinine Ratio Glucose POC Glucose 137 H 138 H 109 H Estimat Average Glucose Hemoglobin A1c Calcium Total Bilirubin AST ALT Alkaline Phosphatase Total Protein Albumin Globulin Albumin/Globulin Ratio TSH Free T4 Urine Color Urine Appearance Urine pH Ur Specific [place] Urine Protein Urine Glucose (UA) Urine Ketones Urine Blood Urine Nitrite Urine Bilirubin Urine Urobilinogen Ur Leukocyte Esterase Urine WBC (Auto) Urine RBC (Auto) U Hyaline Cast (Auto) U Epithel Cells (Auto) Urine Bacteria (Auto) Ur Renal Epithelial Cell Salicylates Urine Opiates Screen Ur Methadone, Qual Acetaminophen Urine Barbiturates Ur Phencyclidine (PCP) U Amphetamin/Meth Scrn MDMA (Ecstasy) Screen U Benzodiazepines Scrn Ur Cocaine Metabolite U Marijuana (THC) Screen Ethyl Alcohol mg/dL COVID-19 Eval Order SARS-CoV-2, RNA, NAAT 03/12/21 03/12/21 03/12/21 12:47 17:13 20:35 WBC RBC Hgb Hct MCV MCH MCHC RDW Std Deviation RDW Coeff of Daphney Plt Count MPV Immature Gran % (Auto) Neut % (Auto) Lymph % (Auto) [place] % (Auto) Eos % (Auto) Baso % (Auto) Neut # (Auto) Lymph # (Auto) [place] # (Auto) Eos # (Auto) Baso # (Auto) Immature Gran # (Auto) Sodium Potassium Chloride Carbon Dioxide Anion Gap BUN Creatinine Est Cr Clr Drug Dosing Est GFR ( Amer) Est GFR (Non-Af Amer) BUN/Creatinine Ratio Glucose POC Glucose 111 H 102 H 139 H Estimat Average Glucose Hemoglobin A1c Calcium Total Bilirubin AST ALT Alkaline Phosphatase Total Protein Albumin Globulin Albumin/Globulin Ratio TSH Free T4 Urine Color Urine Appearance Urine pH Ur Specific [place] Urine Protein Urine Glucose (UA) Urine Ketones Urine Blood Urine Nitrite Urine Bilirubin Urine Urobilinogen Ur Leukocyte Esterase Urine WBC (Auto) Urine RBC (Auto) U Hyaline Cast (Auto) U Epithel Cells (Auto) Urine Bacteria (Auto) Ur Renal Epithelial Cell Salicylates Urine Opiates Screen Ur Methadone, Qual Acetaminophen Urine Barbiturates Ur Phencyclidine (PCP) U Amphetamin/Meth Scrn MDMA (Ecstasy) Screen U Benzodiazepines Scrn Ur Cocaine Metabolite U Marijuana (THC) Screen Ethyl Alcohol mg/dL COVID-19 Eval Order SARS-CoV-2, RNA, NAAT 03/13/21 03/13/21 03/13/21 06:51 08:35 12:44 WBC RBC Hgb Hct MCV MCH MCHC RDW Std Deviation RDW Coeff of Daphney Plt Count MPV Immature Gran % (Auto) Neut % (Auto) Lymph % (Auto) [place] % (Auto) Eos % (Auto) Baso % (Auto) Neut # (Auto) Lymph # (Auto) [place] # (Auto) Eos # (Auto) Baso # (Auto) Immature Gran # (Auto) Sodium Potassium Chloride Carbon Dioxide Anion Gap BUN Creatinine Est Cr Clr Drug Dosing Est GFR ( Amer) Est GFR (Non-Af Amer) BUN/Creatinine Ratio Glucose POC Glucose 128 H 110 H Estimat Average Glucose 235 Hemoglobin A1c 9.8 H Calcium Total Bilirubin AST ALT Alkaline Phosphatase Total Protein Albumin Globulin Albumin/Globulin Ratio TSH Free T4 Urine Color Urine Appearance Urine pH Ur Specific [place] Urine Protein Urine Glucose (UA) Urine Ketones Urine Blood Urine Nitrite Urine Bilirubin Urine Urobilinogen Ur Leukocyte Esterase Urine WBC (Auto) Urine RBC (Auto) U Hyaline Cast (Auto) U Epithel Cells (Auto) Urine Bacteria (Auto) Ur Renal Epithelial Cell Salicylates Urine Opiates Screen Ur Methadone, Qual Acetaminophen Urine Barbiturates Ur Phencyclidine (PCP) U Amphetamin/Meth Scrn MDMA (Ecstasy) Screen U Benzodiazepines Scrn Ur Cocaine Metabolite U Marijuana (THC) Screen Ethyl Alcohol mg/dL COVID-19 Eval Order SARS-CoV-2, RNA, NAAT 03/13/21 03/13/21 03/14/21 16:41 20:25 08:27 WBC RBC Hgb Hct MCV MCH MCHC RDW Std Deviation RDW Coeff of Daphney Plt Count MPV Immature Gran % (Auto) Neut % (Auto) Lymph % (Auto) [place] % (Auto) Eos % (Auto) Baso % (Auto) Neut # (Auto) Lymph # (Auto) [place] # (Auto) Eos # (Auto) Baso # (Auto) Immature Gran # (Auto) Sodium Potassium Chloride Carbon Dioxide Anion Gap BUN Creatinine Est Cr Clr Drug Dosing Est GFR ( Amer) Est GFR (Non-Af Amer) BUN/Creatinine Ratio Glucose POC Glucose 105 H 105 H 120 H Estimat Average Glucose Hemoglobin A1c Calcium Total Bilirubin AST ALT Alkaline Phosphatase Total Protein Albumin Globulin Albumin/Globulin Ratio TSH Free T4 Urine Color Urine Appearance Urine pH Ur Specific [place] Urine Protein Urine Glucose (UA) Urine Ketones Urine Blood Urine Nitrite Urine Bilirubin Urine Urobilinogen Ur Leukocyte Esterase Urine WBC (Auto) Urine RBC (Auto) U Hyaline Cast (Auto) U Epithel Cells (Auto) Urine Bacteria (Auto) Ur Renal Epithelial Cell Salicylates Urine Opiates Screen Ur Methadone, Qual Acetaminophen Urine Barbiturates Ur Phencyclidine (PCP) U Amphetamin/Meth Scrn MDMA (Ecstasy) Screen U Benzodiazepines Scrn Ur Cocaine Metabolite U Marijuana (THC) Screen Ethyl Alcohol mg/dL COVID-19 Eval Order SARS-CoV-2, RNA, NAAT 03/14/21 03/14/21 03/14/21 12:20 17:14 20:49 WBC RBC Hgb Hct MCV MCH MCHC RDW Std Deviation RDW Coeff of Daphney Plt Count MPV Immature Gran % (Auto) Neut % (Auto) Lymph % (Auto) [place] % (Auto) Eos % (Auto) Baso % (Auto) Neut # (Auto) Lymph # (Auto) [place] # (Auto) Eos # (Auto) Baso # (Auto) Immature Gran # (Auto) Sodium Potassium Chloride Carbon Dioxide Anion Gap BUN Creatinine Est Cr Clr Drug Dosing Est GFR ( Amer) Est GFR (Non-Af Amer) BUN/Creatinine Ratio Glucose POC Glucose 122 H 86 123 H Estimat Average Glucose Hemoglobin A1c Calcium Total Bilirubin AST ALT Alkaline Phosphatase Total Protein Albumin Globulin Albumin/Globulin Ratio TSH Free T4 Urine Color Urine Appearance Urine pH Ur Specific [place] Urine Protein Urine Glucose (UA) Urine Ketones Urine Blood Urine Nitrite Urine Bilirubin Urine Urobilinogen Ur Leukocyte Esterase Urine WBC (Auto) Urine RBC (Auto) U Hyaline Cast (Auto) U Epithel Cells (Auto) Urine Bacteria (Auto) Ur Renal Epithelial Cell Salicylates Urine Opiates Screen Ur Methadone, Qual Acetaminophen Urine Barbiturates Ur Phencyclidine (PCP) U Amphetamin/Meth Scrn MDMA (Ecstasy) Screen U Benzodiazepines Scrn Ur Cocaine Metabolite U Marijuana (THC) Screen Ethyl Alcohol mg/dL COVID-19 Eval Order SARS-CoV-2, RNA, NAAT 03/15/21 03/15/21 03/15/21 08:37 12:32 17:05 WBC RBC Hgb Hct MCV MCH MCHC RDW Std Deviation RDW Coeff of Daphney Plt Count MPV Immature Gran % (Auto) Neut % (Auto) Lymph % (Auto) [place] % (Auto) Eos % (Auto) Baso % (Auto) Neut # (Auto) Lymph # (Auto) [place] # (Auto) Eos # (Auto) Baso # (Auto) Immature Gran # (Auto) Sodium Potassium Chloride Carbon Dioxide Anion Gap BUN Creatinine Est Cr Clr Drug Dosing Est GFR ( Amer) Est GFR (Non-Af Amer) BUN/Creatinine Ratio Glucose POC Glucose 128 H 118 H 128 H Estimat Average Glucose Hemoglobin A1c Calcium Total Bilirubin AST ALT Alkaline Phosphatase Total Protein Albumin Globulin Albumin/Globulin Ratio TSH Free T4 Urine Color Urine Appearance Urine pH Ur Specific [place] Urine Protein Urine Glucose (UA) Urine Ketones Urine Blood Urine Nitrite Urine Bilirubin Urine Urobilinogen Ur Leukocyte Esterase Urine WBC (Auto) Urine RBC (Auto) U Hyaline Cast (Auto) U Epithel Cells (Auto) Urine Bacteria (Auto) Ur Renal Epithelial Cell Salicylates Urine Opiates Screen Ur Methadone, Qual Acetaminophen Urine Barbiturates Ur Phencyclidine (PCP) U Amphetamin/Meth Scrn MDMA (Ecstasy) Screen U Benzodiazepines Scrn Ur Cocaine Metabolite U Marijuana (THC) Screen Ethyl Alcohol mg/dL COVID-19 Eval Order SARS-CoV-2, RNA, NAAT 03/15/21 03/16/21 03/16/21 20:28 08:36 12:42 WBC RBC Hgb Hct MCV MCH MCHC RDW Std Deviation RDW Coeff of Daphney Plt Count MPV Immature Gran % (Auto) Neut % (Auto) Lymph % (Auto) [place] % (Auto) Eos % (Auto) Baso % (Auto) Neut # (Auto) Lymph # (Auto) [place] # (Auto) Eos # (Auto) Baso # (Auto) Immature Gran # (Auto) Sodium Potassium Chloride Carbon Dioxide Anion Gap BUN Creatinine Est Cr Clr Drug Dosing Est GFR ( Amer) Est GFR (Non-Af Amer) BUN/Creatinine Ratio Glucose POC Glucose 104 H 114 H 154 H Estimat Average Glucose Hemoglobin A1c Calcium Total Bilirubin AST ALT Alkaline Phosphatase Total Protein Albumin Globulin Albumin/Globulin Ratio TSH Free T4 Urine Color Urine Appearance Urine pH Ur Specific [place] Urine Protein Urine Glucose (UA) Urine Ketones Urine Blood Urine Nitrite Urine Bilirubin Urine Urobilinogen Ur Leukocyte Esterase Urine WBC (Auto) Urine RBC (Auto) U Hyaline Cast (Auto) U Epithel Cells (Auto) Urine Bacteria (Auto) Ur Renal Epithelial Cell Salicylates Urine Opiates Screen Ur Methadone, Qual Acetaminophen Urine Barbiturates Ur Phencyclidine (PCP) U Amphetamin/Meth Scrn MDMA (Ecstasy) Screen U Benzodiazepines Scrn Ur Cocaine Metabolite U Marijuana (THC) Screen Ethyl Alcohol mg/dL COVID-19 Eval Order SARS-CoV-2, RNA, NAAT 03/16/21 03/16/21 03/17/21 16:47 20:43 08:34 WBC RBC Hgb Hct MCV MCH MCHC RDW Std Deviation RDW Coeff of Daphney Plt Count MPV Immature Gran % (Auto) Neut % (Auto) Lymph % (Auto) [place] % (Auto) Eos % (Auto) Baso % (Auto) Neut # (Auto) Lymph # (Auto) [place] # (Auto) Eos # (Auto) Baso # (Auto) Immature Gran # (Auto) Sodium Potassium Chloride Carbon Dioxide Anion Gap BUN Creatinine Est Cr Clr Drug Dosing Est GFR ( Amer) Est GFR (Non-Af Amer) BUN/Creatinine Ratio Glucose POC Glucose 140 H 140 H 135 H Estimat Average Glucose Hemoglobin A1c Calcium Total Bilirubin AST ALT Alkaline Phosphatase Total Protein Albumin Globulin Albumin/Globulin Ratio TSH Free T4 Urine Color Urine Appearance Urine pH Ur Specific [place] Urine Protein Urine Glucose (UA) Urine Ketones Urine Blood Urine Nitrite Urine Bilirubin Urine Urobilinogen Ur Leukocyte Esterase Urine WBC (Auto) Urine RBC (Auto) U Hyaline Cast (Auto) U Epithel Cells (Auto) Urine Bacteria (Auto) Ur Renal Epithelial Cell Salicylates Urine Opiates Screen Ur Methadone, Qual Acetaminophen Urine Barbiturates Ur Phencyclidine (PCP) U Amphetamin/Meth Scrn MDMA (Ecstasy) Screen U Benzodiazepines Scrn Ur Cocaine Metabolite U Marijuana (THC) Screen Ethyl Alcohol mg/dL COVID-19 Eval Order SARS-CoV-2, RNA, NAAT 03/17/21 03/17/21 03/17/21 12:02 17:11 20:10 WBC RBC Hgb Hct MCV MCH MCHC RDW Std Deviation RDW Coeff of Daphney Plt Count MPV Immature Gran % (Auto) Neut % (Auto) Lymph % (Auto) [place] % (Auto) Eos % (Auto) Baso % (Auto) Neut # (Auto) Lymph # (Auto) [place] # (Auto) Eos # (Auto) Baso # (Auto) Immature Gran # (Auto) Sodium Potassium Chloride Carbon Dioxide Anion Gap BUN Creatinine Est Cr Clr Drug Dosing Est GFR ( Amer) Est GFR (Non-Af Amer) BUN/Creatinine Ratio Glucose POC Glucose 120 H 108 H 138 H Estimat Average Glucose Hemoglobin A1c Calcium Total Bilirubin AST ALT Alkaline Phosphatase Total Protein Albumin Globulin Albumin/Globulin Ratio TSH Free T4 Urine Color Urine Appearance Urine pH Ur Specific [place] Urine Protein Urine Glucose (UA) Urine Ketones Urine Blood Urine Nitrite Urine Bilirubin Urine Urobilinogen Ur Leukocyte Esterase Urine WBC (Auto) Urine RBC (Auto) U Hyaline Cast (Auto) U Epithel Cells (Auto) Urine Bacteria (Auto) Ur Renal Epithelial Cell Salicylates Urine Opiates Screen Ur Methadone, Qual Acetaminophen Urine Barbiturates Ur Phencyclidine (PCP) U Amphetamin/Meth Scrn MDMA (Ecstasy) Screen U Benzodiazepines Scrn Ur Cocaine Metabolite U Marijuana (THC) Screen Ethyl Alcohol mg/dL COVID-19 Eval Order SARS-CoV-2, RNA, NAAT 03/18/21 03/18/21 03/18/21 08:10 12:30 17:16 WBC RBC Hgb Hct MCV MCH MCHC RDW Std Deviation RDW Coeff of Daphney Plt Count MPV Immature Gran % (Auto) Neut % (Auto) Lymph % (Auto) [place] % (Auto) Eos % (Auto) Baso % (Auto) Neut # (Auto) Lymph # (Auto) [place] # (Auto) Eos # (Auto) Baso # (Auto) Immature Gran # (Auto) Sodium Potassium Chloride Carbon Dioxide Anion Gap BUN Creatinine Est Cr Clr Drug Dosing Est GFR ( Amer) Est GFR (Non-Af Amer) BUN/Creatinine Ratio Glucose POC Glucose 178 H 168 H 132 H Estimat Average Glucose Hemoglobin A1c Calcium Total Bilirubin AST ALT Alkaline Phosphatase Total Protein Albumin Globulin Albumin/Globulin Ratio TSH Free T4 Urine Color Urine Appearance Urine pH Ur Specific [place] Urine Protein Urine Glucose (UA) Urine Ketones Urine Blood Urine Nitrite Urine Bilirubin Urine Urobilinogen Ur Leukocyte Esterase Urine WBC (Auto) Urine RBC (Auto) U Hyaline Cast (Auto) U Epithel Cells (Auto) Urine Bacteria (Auto) Ur Renal Epithelial Cell Salicylates Urine Opiates Screen Ur Methadone, Qual Acetaminophen Urine Barbiturates Ur Phencyclidine (PCP) U Amphetamin/Meth Scrn MDMA (Ecstasy) Screen U Benzodiazepines Scrn Ur Cocaine Metabolite U Marijuana (THC) Screen Ethyl Alcohol mg/dL COVID-19 Eval Order SARS-CoV-2, RNA, NAAT 03/18/21 03/19/21 03/19/21 20:56 08:33 12:31 WBC RBC Hgb Hct MCV MCH MCHC RDW Std Deviation RDW Coeff of Daphney Plt Count MPV Immature Gran % (Auto) Neut % (Auto) Lymph % (Auto) [place] % (Auto) Eos % (Auto) Baso % (Auto) Neut # (Auto) Lymph # (Auto) [place] # (Auto) Eos # (Auto) Baso # (Auto) Immature Gran # (Auto) Sodium Potassium Chloride Carbon Dioxide Anion Gap BUN Creatinine Est Cr Clr Drug Dosing Est GFR ( Amer) Est GFR (Non-Af Amer) BUN/Creatinine Ratio Glucose POC Glucose 155 H 156 H 153 H Estimat Average Glucose Hemoglobin A1c Calcium Total Bilirubin AST ALT Alkaline Phosphatase Total Protein Albumin Globulin Albumin/Globulin Ratio TSH Free T4 Urine Color Urine Appearance Urine pH Ur Specific [place] Urine Protein Urine Glucose (UA) Urine Ketones Urine Blood Urine Nitrite Urine Bilirubin Urine Urobilinogen Ur Leukocyte Esterase Urine WBC (Auto) Urine RBC (Auto) U Hyaline Cast (Auto) U Epithel Cells (Auto) Urine Bacteria (Auto) Ur Renal Epithelial Cell Salicylates Urine Opiates Screen Ur Methadone, Qual Acetaminophen Urine Barbiturates Ur Phencyclidine (PCP) U Amphetamin/Meth Scrn MDMA (Ecstasy) Screen U Benzodiazepines Scrn Ur Cocaine Metabolite U Marijuana (THC) Screen Ethyl Alcohol mg/dL COVID-19 Eval Order SARS-CoV-2, RNA, NAAT Hospital Course (1) Major depressive disorder with current active episode: -The patient was admitted to the [address] [place] [address] inpatient mental health unit on every 15 minute checks behavioral with suicide precautions for safety. The patient will participate in group, recreational, and milieu therapies and will be offered additional individual and family sessions as clinically appropriate. 03/18/2021--patient continues to tolerate venlafaxine medication well. Also doing well on clonazepam medication. Patient's mood seems to be returning to baseline and improving incrementally. 03/16/2021atient states that she has been having adverse reactions to the medication. We will alter the treatment to address this. We will discontinue Zoloft tonight. We will start venlafaxine 37.5 mg p.o. every morning tomorrow morning. We will start clonazepam 0.25 mg twice daily today. Patient remains quite anxious at this time. 03/15/2021we will maintain patient on 100 mg of sertraline at this time. 03/14/21--patient sertraline dose will be increased to 100 mg nightly. 03/13/21patient's Zoloft (sertraline) dose of 50 mg will be increased to 75 mg nightly. 03/12/21--patient's Lexapro will be discontinued. Patient will be started on 50 mg of Zoloft nightly. Mental Health & Subst Abuse Tx Psychiatrist Name of Psychiatrist: Aren Kessler, [facility] office, initial appt telehealth Psychiatrist's [phone] Date of Appointment with Psychiatrist: 03/24/21 Time of Appointment with Psychiatrist: Devonte Arenas for consents; 1100 Intake with [facility] Comment: [address] [facility] [address] Martinez, the back of [facility] Psychiatrist Release of Information: Obtained, Reviewed and Signed Therapist Name of Therapist: Will be referred to [facility], unable to locate therapist who accepts ins Ring Packer Name of Ring Packer: MACEY Nicole casemanager Phone Number for Ring Packer: cell: [phone] Date of Appointment with Ring Packer: 03/24/21 Time of Appointment with Ring Packer: 10:30 Case Management Appointment Comment: She plans to meet you at your new apt to help with intake and referral Ring Packer Release of Information: Obtained, Reviewed and Signed Post Discharge Appointments Primary Care Physician Name Of Family Doctor: Caroline [facility] Date of Appointment with PCP: 03/25/21 Time of Appointment with PCP: 11:00 a.m. Provider Appointment Comment: [address] [facility] [facility] Release of Information: Obtained, Reviewed and Signed Partial or Psych Rehab Name of Partial or Psych Rehab: MAXX Nicole is referring Partial or Psych Rehab Appointment Comment[place] [facility] [place] to schedule Release of Information for Partial or Psych Rehab: Obtained, Reviewed and Signed Specialist Name of Specialist: Caroline [facility] Phone Number for Specialist: [phone] Specialty Appointment Comment: Referral started, follow up to see when scheduled Specialist Release of Information: Obtained, Reviewed and Signed Smoking Cessation Counseling Tobacco Cessation Medication Prescribed at Discharge: Not Applicable/Non-Smoker Contact Information Discharge Discharge Address: [address] [place] [address] [place] [address] Discharge Plan Discharge Items Patient Disposition: Home - Self-Care Reason For Visit: MDD Discharge Diagnosis: Major depressive disorder Condition on Discharge: Good Activity: Resume your previous activity Non-emergency contact: Primary Care Provider, Psychiatrist and Therapist Call non-emergency contact if: you have any medication questions and your symptoms worsen Follow-up/Referrals: PCP,NO [Primary Care Provider] - Diet: Regular Addtl Attending Provider Instructions: SPECIAL CARE INSTRUCTIONS: 1. Follow through with your scheduled aftercare appointments. If unable to keep an appointment, please call to reschedule. 2. Take your medication only as prescribed. Medication should not be changed or stopped without the approval of your doctor. In the event of worsening symptoms or concerns about side effects, contact your doctor immediately. 3. Utilize new healthy coping skills, anger management skills, and stress management skills learned during your hospitalization. Journal feelings and process them with a support person. Identify stressors or situations that may result in relapse, deterioration or inappropriate behaviors and develop a plan to deal with those issues. 4. If your coping skills are ineffective and you are in crisis, contact your outpatient providers for direction. If unable to reach your providers, please call the [facility] CRISIS LINE AT , go to the [facility] walk-in center at [address], [address], [place], or go to the closest Emergency Room. 5. Avoid alcohol and un-prescribed drugs. 6. You have been provided with the Mental Health Advance Directives Pamphlet for your review. AFTERCARE APPOINTMENTS: * Please call your insurance company prior to your scheduled appointment to confirm your aftercare providers are covered. Take your insurance information to your appointments. WHO TO CALL AND WHEN: Medical Emergencies: For questions or emergencies related to your hospital stay, please contact the Inpatient Behavioral Health Unit at [phone]. A family service worker is on-call 31/05 for the Behavioral Health Unit for emergencies At any time you feel your situation is an emergency, you may also call 911 immediately. Pending Studies at Discharge: No Stand-Alone Forms: My [facility], Smoking Cessation Medications and DC Order Prescriptions: New venlafaxine 37.5 mg Capsule,Extended Release 24hr 37.5 mg PO QAM Qty: 30 RF: 0 clonazepam 0.5 mg Tablet 0.25 mg PO BID Qty: 60 RF: 0 Continued Humulin 70/30 U-100 Insulin 100 unit/mL (70-30) Suspension 100 unit subcut HS RF: 0 amlodipine 2.5 mg Tablet 2.5 mg PO HS RF: 0 valacyclovir [Valtrex] 1 gram tablet 1,000 mg PO QAM PRN (Reason: Cold Sores) RF: 0 metoprolol succinate 25 mg Tablet Extended Release 24 Hr 25 mg PO QPM RF: 0 aspirin 81 mg Tablet,Delayed Release (Dr/Ec) 81 mg PO QAM RF: 0 atorvastatin 80 mg Tablet 80 mg PO QPM RF: 0 omeprazole 20 mg Tablet,Delayed Release (Dr/Ec) 20 mg PO BID RF: 0 levothyroxine 175 mcg Tablet 175 mcg PO HS RF: 0 metformin 1,000 mg Tablet Extended Release 24hr 1,000 mg PO BID RF: 0 gabapentin 100 mg Capsule 100 mg PO TID RF: 0 Discontinued escitalopram oxalate 20 mg Tablet 40 mg PO QAM RF: 0 lorazepam 1 mg Tablet 1 - 2 mg PO HS PRN (Reason: Anxiety) RF: 0 Discharge Orders: Discharge Order (Routine); Ordered 03/19/21 Ordered By: Migel Dean Admission Data Admit Date/Time: 03/11/21 21:24 Attending Provider: Migel Dean Admit Provider: Migel Dean Primary Care Provider: PCP,NO Other Interventions: Discharge Summary Assessment (RN) Last Done: 03/19/21 13:41 PSY Interdisciplinary Discharge Planning Last Done: 03/19/21 14:17 Coding Level of Care Code 43725 D/C day mgmt > 30 min Diagnoses Major depressive disorder with current active episode F32.9
== END 2021-03-19 15:02 | disposition home or self-care (01) | DRG 881 ==
LOC: ED 16:10 → 3S 21:24

== ENCOUNTER 2021-04-01 17:04 | Inpatient (IN) ==
[2021-04-01 17:44] LABS: Basophils # (auto) 0.03 K/uL (0-0.2); Basophils % (auto) 0.3 %; Eosinophils # (auto) 0.22 K/uL (0-0.5); Eosinophils % (auto) 2.4 %; Hematocrit (blood only) 41.9 % (37-47); Hemoglobin 13.8 g/dL (12.0-16.0); Immature Granulocytes # (auto) 0.01 K/uL (0.00-0.02); Immature Granulocytes % (auto) 0.1 %; Lymphocytes # (auto) 2.91 K/uL (1.2-3.4); Lymphocytes % (auto) 31.4 %; Mean Corpuscular Hemoglobin 28.9 pg (25-34); Mean Corpuscular Hgb Conc 32.9 g/dL (32-36); Mean Corpuscular Volume 87.7 fL (80-100); Mean Platelet Volume 9.8 fL (7.4-10.4); Monocytes # (auto) 0.77 K/uL (0.11-0.59); Monocytes % (auto) 8.3 %; Neutrophils # (auto) 5.33 K/uL (1.4-6.5); Neutrophils % (auto) 57.5 %; Platelet Count 317 K/uL (130-400); RDW Coefficient of Variation 13.5 % (11.5-14.5); RDW Standard Deviation 43.5 fL (36.4-46.3); Red Blood Count 4.78 M/uL (4.2-5.4); White Blood Count 9.27 K/uL (4.8-10.8)
[2021-04-01] MEDS ORDERED: LORazepam 1 MG TAB SL STA (17:47)
--- NOTE | 2021-04-01 17:56 | Emergency Department Note ---
Impression & Plan Depression, Anxiety ED Provider Note Provider: Long Bill MD DATE OF SERVICE: 04/01/2021 CHIEF COMPLAINT: Depression, anxiety HISTORY OF PRESENT ILLNESS: Patient is a 56-year-old female with a history of type 2 diabetes, hypertension, recent hospitalization for depression here on 3 S. presenting today referred from her psychiatrist office. Patient states she is seeing her psychiatrist agrees was today and things not going well and came here. Her daughter has provided a involuntary mental health petition statement as well with concerns for her mother safety; the patient herself seems agreeable for inpatient and discussion. Patient herself is rocking in the room and states she has not slept in 3 days. She is been staying in her own apartment last 3 days and has not slept and eating little. States she feels very anxious and depressed. Patient states she has not had any thoughts to harm others. When asked if she has thoughts to harm her self she states "I do not know ". Patient denies trying to harm her self thus far. Patient states she has been taking her Zoloft and Effexor but does not believe these are strong enough or least they are not working. Patient states she is not functioning and believes she needs help and is open inpatient treatment. Patient states she has had much trauma in her life seeing her mother and father and that her significant other recently several months ago. Patient states this is very unexpected she never been alone before in her life. REVIEW OF SYSTEMS: A total of 10 review of systems was obtained and negative except as stated above in the HPI. PAST MEDICAL HISTORY: As noted above MEDICATIONS: Reviewed home medication with the patient. SOCIAL HISTORY: Non-smoker, currently residing alone in her apartment PHYSICAL EXAM: GENERAL: alert and oriented seated on the stretcher rocking back and forth appears quite anxious Head: normocephalic and atraumatic EYES: No injection, discharge or icterus. NECK: Trachea midline. LUNGS: Airway patent. No retractions or tachypnea. HEART: Regular rate and rhythm. SKIN: Acyanotic, warm, dry, without rashes EXTREMITIES: Without swelling, tenderness or deformity NEUROLOGICAL: No focal deficits. No aphasia. No facial droop or slurred speech. Psych: Patient denies wishes to harm others. She denies hallucinations. Patient appears quite anxious and is rocking back and forth and has some pressed speech. Not tangential or circumferential. Not responding to external stimuli. When asked if she has thoughts of going to harm her self she states "I do not know ". Patient's laboratory studies reviewed. Differential includes Mood disorder, infection, hypoglycemia, electrolyte abnormalities, cardiac sources, intracerebral event, toxicologic, trauma, neuro logic, as well as other pathologies. IMPRESSION/MEDICAL DECISION MAKING: Patient is quite anxious endorses depression. Patient wishing for inpatient treatment. Basic labs obtained here. TSH is somewhat low and free T4 was sent. Slightly worse than before the patient has been on levothyroxine related to postsurgical hypothyroidism; question if this dosage may be too high given these findings. Do not believe the patient is thyrotoxic however. Patient's records were reviewed from recent hospitalization. Patient denies wishing to harm others however is having significant functional issues. Seen with mental health case manager. Referrals will be placed. Given some Ativan here given her significant anxiety upon initial interview. Patient was excepted 3 S. after referrals for her depression & anxiety and a voluntary basis. DIAGNOSIS: Depression and anxiety DISPOSITION: Sent to 3 S. for further inpatient psychiatric care on 201 Past Med/Surg History Medical History (Updated 04/01/21 @ 23:26 by Long Bill M.D.) Anxiety Benign neoplasm of vulva of clitoris Depression Diabetes mellitus, type II History of thyroid cancer Hypertension Myocardial Infarction 12 YEARS AGO (FOLLOWED BY DR. DODSON) VERBALIZED NO HEART CATH DONE Peripheral neuropathy Restless leg syndrome Schwannoma REMOVED BY DR. GROSSMAN MARCH 2018 Stroke 7 YEARS AGO (LEFT SIDE WEAKNESS/LEFT EYE DROOPING) Suicidal ideation Tumor LEFT FEMUR (BENIGN) 2 TUMORS REMOVED Vulvitis Surgical History Family history of reaction to anesthesia BROTHER-NAUSEA H/O blepharoplasty RT/LEFT History of anesthesia reaction SLOW TO WAKE UP History of cholecystectomy History of colonoscopy History of esophagogastroduodenoscopy (EGD) History of surgery robot-assist left thorascopic resection of schwannoma from left upper mediastinum. 03/16/2018. SANG. A line. No issues. History of thyroidectomy, total History of tonsillectomy History of tooth extraction S/P LASIK surgery of both eyes Status post hysteroscopic ablation of endometrium Family History Grandmother (Maternal) Family history of diabetes mellitus Mother Ovarian cancer Social History Smoking Status: Never smoker Second Hand Exposure: No; Hx Alcohol Use: No Hx Substance Use: No Preferred Language: Occitan Communication Ability: Effective Welfare Manager Required: No Beliefs That Will Affect Care: None marital status: Current Living Situation: Significant Other Feels Safe at Home: Yes and Hesitant to Answer Assistive Devices: Denture - Upper, Denture - Lower and Glasses Allergies Allergies Allergy/AdvReac Type Severity Reaction Status Date / Time adhesive tape Allergy Mild SKIN Verified 09/27/20 12:50 IRRITATION Home Meds Home Medications Medication Instructions Recorded Confirmed aspirin 81 mg PO QAM 02/18/19 04/01/21 atorvastatin 80 mg PO QPM 02/18/19 04/01/21 levothyroxine 175 mcg PO HS 02/18/19 04/01/21 metformin 1,000 mg PO BID 02/18/19 04/01/21 omeprazole 20 mg PO BID 02/18/19 04/01/21 Humulin 70/30 U-100 Insulin See Rx Instructions .ROUTE .COMPLEX 03/27/19 04/01/21 amlodipine 2.5 mg PO HS 03/27/19 04/01/21 gabapentin 100 mg PO TID 07/21/19 04/01/21 Previous Rx's Medication Instructions Recorded clonazepam 0.25 mg PO BID #60 tab 03/19/21 venlafaxine 37.5 mg PO QAM #30 cap 03/19/21 Results & Data (ED) Vital Signs Vital Signs - 24 hr 04/01/21 17:07 Temperature 36.3 C L Temperature Source Temporal Artery Scan Pulse Rate 77 Respiratory Rate 20 Respiratory Effort / Characteristics Non-Labored Spontaneous Respiratory Depth Normal Respiratory Pattern Regular Blood Pressure 131/77 Blood Pressure Mean 95 Blood Pressure Position Sitting Pulse Oximetry 97 Oxygen Delivery Method Room Air Sepsis Recent Fever Within 48 Hours No Sepsis New/Unexplained Change in Mental Status N/A Sepsis Action Taken by Nursing No Action Required Laboratory Data Result diagrams: 04/01/21 17:31 04/01/21 17:31 Lab Results 04/01/21 04/01/21 04/01/21 Range/Units 17:31 17:31 17:31 WBC 9.27 (4.8-10.8) K/uL RBC 4.78 (4.2-5.4) M/uL Hgb 13.8 (12.0-16.0) g/dL Hct 41.9 (37-47) % MCV 87.7 (80-100) fL MCH 28.9 (25-34) pg MCHC 32.9 (32-36) g/dL RDW Std Deviation 43.5 (36.4-46.3) fL RDW Coeff of Daphney 13.5 (11.5-14.5) % Plt Count 317 (130-400) K/uL MPV 9.8 (7.4-10.4) fL Immature Gran % (Auto) 0.1 % Neut % (Auto) 57.5 % Lymph % (Auto) 31.4 % [place] % (Auto) 8.3 % Eos % (Auto) 2.4 % Baso % (Auto) 0.3 % Neut # (Auto) 5.33 (1.4-6.5) K/uL Lymph # (Auto) 2.91 (1.2-3.4) K/uL [place] # (Auto) 0.77 H (0.11-0.59) K/uL Eos # (Auto) 0.22 (0-0.5) K/uL Baso # (Auto) 0.03 (0-0.2) K/uL Immature Gran # (Auto) 0.01 (0.00-0.02) K/uL Sodium 136 (136-145) mmol/L Potassium 4.2 (3.5-5.1) mmol/L Chloride 103 (98-107) mmol/L Carbon Dioxide 29 (21-32) mmol/L Anion Gap 4.0 (3-11) BUN 12 (7-18) mg/dl Creatinine 0.76 (0.6-1.2) mg/dl Est Cr Clr Drug Dosing 92.2 ml/min Est GFR ( Amer) 100.2 ml/min Est GFR (Non-Af Amer) 86.5 ml/min BUN/Creatinine Ratio 15.5 (10-20) Glucose 227 H (70-99) mg/dl Calcium 9.0 (8.5-10.1) mg/dl Total Bilirubin 0.9 (0.2-1) mg/dl AST 21 (15-37) U/L ALT 31 (12-78) U/L Alkaline Phosphatase 115 (45-117) U/L Total Protein 7.9 (6.4-8.2) gm/dl Albumin 3.6 (3.4-5.0) gm/dl Globulin 4.3 H (2.5-4.0) gm/dl Albumin/Globulin Ratio 0.8 L (0.9-2) TSH 0.027 L (0.300-4.500) uIu/ml Free T4 1.99 H (0.8-1.6) ng/dl Urine Color Urine Appearance (Clear) Urine pH (4.5-7.5) Ur Specific [place] (1.000-1.030) Urine Protein (Negative) Urine Glucose (UA) (Negative) Urine Ketones (Negative) Urine Blood (Negative) Urine Nitrite (Negative) Urine Bilirubin (Negative) Urine Urobilinogen (Negative) Ur Leukocyte Esterase (Negative) Urine WBC (Auto) (0-5) /hpf Urine RBC (Auto) (0-4) /hpf U Hyaline Cast (Auto) (0-5) /lpf U Epithel Cells (Auto) (0-5) /lpf Urine Bacteria (Auto) (Negative) Salicylates < 1.7 L (2.8-20) mg/dl Urine Opiates Screen (Neg) Ur Methadone, Qual (Neg) Acetaminophen < 2 L (10-30) ug/ml Urine Barbiturates (Neg) Ur Phencyclidine (PCP) (Neg) U Amphetamin/Meth Scrn (Neg) MDMA (Ecstasy) Screen (Neg) U Benzodiazepines Scrn (Neg) Ur Cocaine Metabolite (Neg) U Marijuana (THC) Screen (Neg) Ethyl Alcohol mg/dL (0-3) mg/dl COVID-19 Eval Order SARS-CoV-2 (PCR) (Negative) 04/01/21 04/01/21 04/01/21 Range/Units 17:31 17:57 17:57 WBC (4.8-10.8) K/uL RBC (4.2-5.4) M/uL Hgb (12.0-16.0) g/dL Hct (37-47) % MCV (80-100) fL MCH (25-34) pg MCHC (32-36) g/dL RDW Std Deviation (36.4-46.3) fL RDW Coeff of Daphney (11.5-14.5) % Plt Count (130-400) K/uL MPV (7.4-10.4) fL Immature Gran % (Auto) % Neut % (Auto) % Lymph % (Auto) % [place] % (Auto) % Eos % (Auto) % Baso % (Auto) % Neut # (Auto) (1.4-6.5) K/uL Lymph # (Auto) (1.2-3.4) K/uL [place] # (Auto) (0.11-0.59) K/uL Eos # (Auto) (0-0.5) K/uL Baso # (Auto) (0-0.2) K/uL Immature Gran # (Auto) (0.00-0.02) K/uL Sodium (136-145) mmol/L Potassium (3.5-5.1) mmol/L Chloride (98-107) mmol/L Carbon Dioxide (21-32) mmol/L Anion Gap (3-11) BUN (7-18) mg/dl Creatinine (0.6-1.2) mg/dl Est Cr Clr Drug Dosing ml/min Est GFR ( Amer) ml/min Est GFR (Non-Af Amer) ml/min BUN/Creatinine Ratio (10-20) Glucose (70-99) mg/dl Calcium (8.5-10.1) mg/dl Total Bilirubin (0.2-1) mg/dl AST (15-37) U/L ALT (12-78) U/L Alkaline Phosphatase (45-117) U/L Total Protein (6.4-8.2) gm/dl Albumin (3.4-5.0) gm/dl Globulin (2.5-4.0) gm/dl Albumin/Globulin Ratio (0.9-2) TSH (0.300-4.500) uIu/ml Free T4 (0.8-1.6) ng/dl Urine Color Urine Appearance (Clear) Urine pH (4.5-7.5) Ur Specific [place] (1.000-1.030) Urine Protein (Negative) Urine Glucose (UA) (Negative) Urine Ketones (Negative) Urine Blood (Negative) Urine Nitrite (Negative) Urine Bilirubin (Negative) Urine Urobilinogen (Negative) Ur Leukocyte Esterase (Negative) Urine WBC (Auto) (0-5) /hpf Urine RBC (Auto) (0-4) /hpf U Hyaline Cast (Auto) (0-5) /lpf U Epithel Cells (Auto) (0-5) /lpf Urine Bacteria (Auto) (Negative) Salicylates (2.8-20) mg/dl Urine Opiates Screen (Neg) Ur Methadone, Qual (Neg) Acetaminophen (10-30) ug/ml Urine Barbiturates (Neg) Ur Phencyclidine (PCP) (Neg) U Amphetamin/Meth Scrn (Neg) MDMA (Ecstasy) Screen (Neg) U Benzodiazepines Scrn (Neg) Ur Cocaine Metabolite (Neg) U Marijuana (THC) Screen (Neg) Ethyl Alcohol mg/dL < 3.0 (0-3) mg/dl COVID-19 Eval Order Covid19 at [facility] SARS-CoV-2 (PCR) NEGATIVE (Negative) 04/01/21 04/01/21 Range/Units 18:00 18:00 WBC (4.8-10.8) K/uL RBC (4.2-5.4) M/uL Hgb (12.0-16.0) g/dL Hct (37-47) % MCV (80-100) fL MCH (25-34) pg MCHC (32-36) g/dL RDW Std Deviation (36.4-46.3) fL RDW Coeff of Daphney (11.5-14.5) % Plt Count (130-400) K/uL MPV (7.4-10.4) fL Immature Gran % (Auto) % Neut % (Auto) % Lymph % (Auto) % [place] % (Auto) % Eos % (Auto) % Baso % (Auto) % Neut # (Auto) (1.4-6.5) K/uL Lymph # (Auto) (1.2-3.4) K/uL [place] # (Auto) (0.11-0.59) K/uL Eos # (Auto) (0-0.5) K/uL Baso # (Auto) (0-0.2) K/uL Immature Gran # (Auto) (0.00-0.02) K/uL Sodium (136-145) mmol/L Potassium (3.5-5.1) mmol/L Chloride (98-107) mmol/L Carbon Dioxide (21-32) mmol/L Anion Gap (3-11) BUN (7-18) mg/dl Creatinine (0.6-1.2) mg/dl Est Cr Clr Drug Dosing ml/min Est GFR ( Amer) ml/min Est GFR (Non-Af Amer) ml/min BUN/Creatinine Ratio (10-20) Glucose (70-99) mg/dl Calcium (8.5-10.1) mg/dl Total Bilirubin (0.2-1) mg/dl AST (15-37) U/L ALT (12-78) U/L Alkaline Phosphatase (45-117) U/L Total Protein (6.4-8.2) gm/dl Albumin (3.4-5.0) gm/dl Globulin (2.5-4.0) gm/dl Albumin/Globulin Ratio (0.9-2) TSH (0.300-4.500) uIu/ml Free T4 (0.8-1.6) ng/dl Urine Color Dark Yellow Urine Appearance Clear (Clear) Urine pH 5.0 (4.5-7.5) Ur Specific [place] 1.021 (1.000-1.030) Urine Protein Negative (Negative) Urine Glucose (UA) Trace H (Negative) Urine Ketones Trace H (Negative) Urine Blood Negative (Negative) Urine Nitrite Negative (Negative) Urine Bilirubin Negative (Negative) Urine Urobilinogen Negative (Negative) Ur Leukocyte Esterase 1+ H (Negative) Urine WBC (Auto) 1-5 (0-5) /hpf Urine RBC (Auto) 0-4 (0-4) /hpf U Hyaline Cast (Auto) 5-10 H (0-5) /lpf U Epithel Cells (Auto) >30 H (0-5) /lpf Urine Bacteria (Auto) Negative (Negative) Salicylates (2.8-20) mg/dl Urine Opiates Screen Neg (Neg) Ur Methadone, Qual Neg (Neg) Acetaminophen (10-30) ug/ml Urine Barbiturates Neg (Neg) Ur Phencyclidine (PCP) Neg (Neg) U Amphetamin/Meth Scrn Neg (Neg) MDMA (Ecstasy) Screen Neg (Neg) U Benzodiazepines Scrn Neg (Neg) Ur Cocaine Metabolite Neg (Neg) U Marijuana (THC) Screen Neg (Neg) Ethyl Alcohol mg/dL (0-3) mg/dl COVID-19 Eval Order SARS-CoV-2 (PCR) (Negative) Administered Medications Amlodipine Besylate (Amlodipine Besylate 5 Mg Tab) 2.5 mg PO HS WILLIAM Stop: 05/01/21 20:59 Last Admin: 04/01/21 22:02 Dose: 2.5 mg Documented by: [id number] Atorvastatin Calcium (Atorvastatin 40 Mg Tab) 80 mg PO QPM WILLIAM Stop: 05/01/21 20:59 Last Admin: 04/01/21 22:01 Dose: 80 mg Documented by: [id number] Clonazepam (Clonazepam 0.25 Mg Tab) 0.25 mg PO BID WILLIAM Stop: 05/01/21 20:59 Last Admin: 04/01/21 22:17 Dose: 0.25 mg Documented by: [id number] Gabapentin (Gabapentin 100 Mg Cap) 100 mg PO TID WILLIAM Stop: 05/01/21 20:59 Last Admin: 04/01/21 22:01 Dose: 100 mg Documented by: [id number] Hydroxyzine HCl (Hydroxyzine Hcl 25 Mg Tab) 50 mg PO HSZ PRN PRN Reason: Insomnia Stop: 05/01/21 20:40 Last Admin: 04/01/21 22:17 Dose: 50 mg Documented by: [id number] Insulin Aspart (Insulin Aspart 100 Units/Ml 3 Ml Pen) 0 units SC [facility]; Pro tocol Stop: 05/01/21 21:59 Last Admin: 04/01/21 22:09 Dose: 3 units Documented by: [id number] Cosigned by: [id number] Insulin Glargine (Insulin Glargine Solostar 100 Units/Ml 3 Ml Pen) 22 units SC [facility]; Protocol Stop: 05/01/21 21:59 Last Admin: 04/01/21 22:08 Dose: 22 units Documented by: [id number] Cosigned by: [id number] Pantoprazole Sodium (Pantoprazole 40 Mg Tab) 40 mg PO BID WILLIAM Stop: 05/01/21 20:59 Last Admin: 04/01/21 22:02 Dose: 40 mg Documented by: [id number] Discontinued Medications Lorazepam (Lorazepam 1 Mg Tab) 1 mg SL NOW STA Stop: 04/01/21 17:48 Last Admin: 04/01/21 17:57 Dose: 1 mg Documented by: [id number] Discharge Plan Visit Data Chief Complaint: Mental Health Evaluation Stated Complaint: MENTAL HEALTH EVAL ED Provider: Long Bill Discharge Problem: Depression, Anxiety Patient Disposition: Admitted As Inpatient Discharge Instructions Interventions: ED Discharge Assessment Last Done: 04/01/21 20:57 Discharge Problem: Depression Qualifiers: Depression Type: major depressive disorder Major depression recurrence: recurrent Active/Remission status: currently active Major depression episode severity: severe Psychotic features: without psychotic features Qualified Code(s): F33.2 - Major depressive disorder, recurrent severe without psychotic features
[2021-04-01 18:09] LABS: Albumin Level 3.6 gm/dl (3.4-5.0); BUN Creatinine Ratio 15.5 (10-20); Creatinine Clr Calc Pharmacy 92.2 ml/min; Est GFR (African American) 100.2 ml/min; Est GFR (Non-African American) 86.5 ml/min; Potassium 4.2 mmol/L (3.5-5.1)
[2021-04-01 18:15] LABS: Acetaminophen < 2 ug/ml (10-30); Salicylate < 1.7 mg/dl (2.8-20)
[2021-04-01 18:19] LABS: Albumin Globulin Ratio 0.8 (0.9-2); Bilirubin,Total 0.9 mg/dl (0.2-1); Globulin 4.3 gm/dl (2.5-4.0); Thyroid Stimulating Hormone 0.027 uIu/ml (0.300-4.500); Total Protein 7.9 gm/dl (6.4-8.2)
[2021-04-01 18:33] LABS: Appearance Urine Clear (Clear); Bacteria Urine Automated Negative (Negative); Bilirubin Urine Negative (Negative); Blood Urine Negative (Negative); Color Urine Dark Yellow; Epithelial Cell Urine Auto >30 /lpf (0-5); Glucose Urine UA Trace (Negative); Ketones Urine Trace (Negative); Leukocyte Esterase Urine 1+ (Negative); Nitrite Urine Negative (Negative); Protein Urine Negative (Negative); RBC Urine Automated 0-4 /hpf (0-4); Specific Gravity Urine 1.021 (1.000-1.030); Urobilinogen Urine Negative (Negative)
[2021-04-01 18:50] LABS: T4 Free Thyroxine 1.99 ng/dl (0.8-1.6)
[2021-04-01 18:58] LABS: Amphetamines+Metham, Urine Neg (Neg); Barbiturates, Urine Neg (Neg); Benzodiazepine, Urine Neg (Neg); Cocaine, Urine Neg (Neg); MDMA (Ecstacy), Urine Neg (Neg); Methadone, Urine Neg (Neg); Opiate, Urine Neg (Neg); Phencyclidine, Urine Neg (Neg)
[2021-04-01] MEDS ORDERED: BISMUTH SUBSALICYLATE LIQD 236 ML PO PRN (20:41)
[2021-04-01] MEDS ORDERED: MAGNESIUM HYDROXIDE SUSP 30 ML UDC PO PRN (20:41)
[2021-04-01] MEDS ORDERED: hydrOXYzine HCl 25 MG TAB PO PRN ×2 (20:41)
[2021-04-01] MEDS ORDERED: SODIUM CHLORIDE 0.65% NA SOLN 45 ML (OCEAN) PRN (20:41)
[2021-04-01] MEDS ORDERED: ACETAMINOPHEN 325 MG TAB PO PRN (20:41)
[2021-04-01] MEDS ORDERED: ALUMINUM/MAGNESIUM SUSP 30 ML UDC PO PRN (20:41)
[2021-04-01] MEDS ORDERED: PHARMACY GLYCEMIC MGMT CONSULT PRN (21:15)
[2021-04-01] MEDS ORDERED: CARBOHYDRATES FOR HYPOGLYCEMIA PO PRN (21:30)
[2021-04-01] MEDS ORDERED: GLUCAGON FOR INJ 1 MG VIAL IM PRN (21:30)
[2021-04-01] MEDS ORDERED: GLUCOSE 10 TABS/TUBE PO PRN (21:30)
[2021-04-01] MEDS ORDERED: DEXTROSE 50% 50 ML SYRINGE IV PRN (21:30)
[2021-04-01] MEDS ORDERED: GLUCOSE 40% GEL 15 GM TUBE PO PRN (21:30)
[2021-04-01] MEDS ORDERED: INSULIN GLARGINE SOLOSTAR 100 UNITS/ML 3 ML PEN SC SCH (22:00)
[2021-04-01] MEDS ORDERED: LEVOTHYROXINE SODIUM 175 MCG TABLET PO SCH (22:00)
[2021-04-01] MEDS: ATORVASTATIN 40 MG TAB PO SCH (22:01)
[2021-04-01] MEDS: GABAPENTIN 100 MG CAP PO SCH (22:01)
[2021-04-01] MEDS: amLODIPine BESYLATE 5 MG TAB PO SCH (22:02)
[2021-04-01] MEDS: PANTOprazole 40 MG TAB PO SCH (22:02)
[2021-04-01] MEDS: INSULIN ASPART 100 UNITS/ML 3 ML PEN SC SCH (22:09)
[2021-04-01] MEDS: clonazePAM 0.25 MG TAB PO SCH (22:17)
[2021-04-02] MEDS: LEVOTHYROXINE SODIUM 175 MCG TABLET PO SCH (08:00)
--- NOTE | 2021-04-02 08:37 | Pharmacy Report ---
Pharmacy Glycemic Short Note 2 - Date of Service April 02, 2021 - Glycemic Short BSG Results (Last 24 hours): 04/01/21 04/01/21 04/02/21 17:31 22:07 07:44 Glucose 227 H POC Glucose 187 H 195 H OUTPATIENT ANTIDIABETIC REGIMEN: * metformin 1000 mg PO BIDM * OmniPod Dash * Basal: 7237-4950 - 1.8 unit/hr, 9722-3279 - 1.9 unit/hr (total: 43.95 unit/hr) * ICR: 5, CF: 18 * HbA1c: 9.8% (03/13/21) ASSESSMENT: * PB is a 56 year old female who presented last evening per referral from psychiatrist, as things have not been going well since her recent discharge on 03/19/21 * Omnipod pump disconnected on admission - will manage with SC basal/bolus insulin * Fasting BSG of 195 mg/dL this morning - received 22 units of basal * Maintained good glycemic control last admission, will plan to keep similar insulin doses and continue outpatient metformin * However, fasting BSGs were trending up towards end of last admission, so will plan to provide at least 22 units with allowance for ~25% increase PLAN FOR INPATIENT GLYCEMIC CONTROL: * Metformin 1000 mg PO BIDM * Basal insulin * Lantus 6 units SQ x1 this morning * Lantus 16-22 units SC HS (see EHR for details) * Reassess basal in AM * Bolus insulin * NovoLog per scale ACHS or Q6hrs while NPO * Goal Range: Low 110 mg/dL - High 140 mg/dL * Correction Factor: 20 mg/dL/unit * Nutritional / Prandial insulin per carb ratio of 1 unit per 6 grams CHO consumed PLAN FOR DISCHARGE: * tbd
[2021-04-02] MEDS ORDERED: INSULIN GLARGINE SOLOSTAR 100 UNITS/ML 3 ML PEN SC ONE (09:00)
[2021-04-02] MEDS: GABAPENTIN 100 MG CAP PO SCH ×3 (10:00→20:44)
[2021-04-02] MEDS: ASPIRIN 81 MG ECTAB PO SCH (10:00)
[2021-04-02] MEDS: PANTOprazole 40 MG TAB PO SCH ×2 (10:01→20:46)
[2021-04-02] MEDS: metFORMIN HCL 500 MG TAB PO SCH ×2 (10:01→17:27)
[2021-04-02] MEDS: clonazePAM 0.25 MG TAB PO SCH ×2 (10:02→20:43)
--- NOTE | 2021-04-02 10:11 | History & Physical ---
Date of Service April 02, 2021 Impression / Recommendations Impression 56 yo female presents with ongoing anxiety and depression due to complex bereavement given recent loss of partner and prior witness to own father's as a child. Although she is not actively suicidal she is unable to function at her apartment and is high risk as doesn't want to be a burden to her children and has insulin pump for management of DM. (1) Major depressive disorder with current active episode: Major depression recurrence: unspecified whether recurrent Major depression episode severity: severe Psychotic features: without psychotic features Qualified Code(s): F32.2 - Major depressive disorder, single episode, severe without psychotic features (2) Postsurgical hypothyroidism: current labs show mild overcorrection which may actually help to augment antidepressant, defer to PCP for recheck as outpatient. (3) Diabetes mellitus, type II: no insulin pump while on unit, glycemic pharmacy consult. Inventory Assets Strengths: builds strong attachments, help seeking Needs: sleep regulation, support around self-care Risk Factors Assessment Male: No : Yes Do You Have Access To A Gun?: No Health Problems: Yes Mental Health Diagnoses: Yes Substance Use Disorders: No Previous Attempt: No Previous Psychiatric Hospitalization: Yes Protective Factors Assessment : No Employed: No Supportive Family: Yes Psychiatric History Identifying Data HENRIK HOWARD is a 56-year-old F who was just discharged from on 03/19/21 for similar presentation, has a history of complicated bereavement, and was admitted on 04/01/21 20:41 on a 201 voluntary commitment for poor self-care. Chief Complaint "I didn't sleep for 3 days, I just don't feel safe alone". History of Present Illness Patient was admitted earlier this month for depressive symptoms, increased an xiety, and poor self-care following the of her partner of 7 years in January. This triggered past feelings of loss (ex. 10 years ago, father reportedly in her arms when she was 6 yo) and separation anxiety. She has always been afraid of the dark and she slept holding hands with her boyfriend. Following discharge she lived with her daughter and her family until the past 3 days. Daughter left a petitioning statement on the chart that mother was not taking her medications or managing her diabetes well. Ms. Howard was in contact with [facility] PCP office where she was noted to have lost weight since last contact, "not that that's a problem" and was directed to the ED for assessment following phone consultation by covering provider with psychiatry. She reports constant tearfulness, hopelessness and loss of interest in things but denies SI. She reports not wanting to be a burden for her daughter as Henrik took care of her own mother who had medical issues and "I said I would never do that to my kids." Past Psychiatric History Current Psychiatric Diagnosis: MDD Outpatient Services: had not yet had an appointments following discharge Previous Psych Admissions: [facility] 03/2021 Do You Have Access To A Gun?: No History of Previous Suicide Attempt: No Describe Attempts in the Past: None Past Medication Trials: Lexapro, Zoloft trial, Effexor XR. Allergies Allergy/AdvReac Type Severity Reaction Status Date / Time adhesive tape Allergy Mild SKIN Verified 09/27/20 12:50 IRRITATION Home Medications Medication Instructions Recorded Confirmed Type aspirin 81 mg PO QAM 02/18/19 04/01/21 History atorvastatin 80 mg PO QPM 02/18/19 04/01/21 History levothyroxine 175 mcg PO HS 02/18/19 04/01/21 History metformin 1,000 mg PO BID 02/18/19 04/01/21 History omeprazole 20 mg PO BID 02/18/19 04/01/21 History Humulin 70/30 U-100 Insulin See Rx Instructions .ROUTE .COMPLEX 03/27/19 04/01/21 History amlodipine 2.5 mg PO HS 03/27/19 04/01/21 History gabapentin 100 mg PO TID 07/21/19 04/01/21 History clonazepam 0.25 mg PO BID #60 tab 03/19/21 04/01/21 Rx venlafaxine 37.5 mg PO QAM #30 cap 03/19/21 04/01/21 Rx Family History Family History of: None Alcohol History Hx of Alcohol Use Over the Past 12 Months: No AUDIT Total Score: 0 Smoking Use Have You Smoked or Used Tobacco Products in the Last 30 Days: No Smoking Status: Never smoker Substance History Hx of Prescription Med Misuse Over the Past 12 Months: No Hx of Over the Counter Med Misuse Over the Past 12 Months: No Hx of Inhalent Misuse Over the Past 12 Months: No Hx of Organic Substance Use Over the Past 12 Months: No Hx of Illegal Substances/Street Drug Use Over Past 12 Months: No Problems as a Result of Past Substance Use: None Identified Personal History Living Arrangements: Apartment Highest Grade Completed: High School Graduate Marital Status: Number Of Children: 2 Beliefs That Will Affect Care: None Hx Legal Problems: No Hx Traumatic Life Events: Yes Psychological Trauma History Comment: witness father's as a child Patient History Medical History (Updated 04/02/21 @ 10:14 by Megha Cooley MD) Anxiety Benign neoplasm of vulva of clitoris Depression Diabetes mellitus, type II History of thyroid cancer Hypertension Myocardial Infarction 12 YEARS AGO (FOLLOWED BY DR. DODSON) VERBALIZED NO HEART CATH DONE Peripheral neuropathy Restless leg syndrome Schwannoma REMOVED BY DR. GROSSMAN MARCH 2018 Stroke 7 YEARS AGO (LEFT SIDE WEAKNESS/LEFT EYE DROOPING) Suicidal ideation Tumor LEFT FEMUR (BENIGN) 2 TUMORS REMOVED Vulvitis Surgical History Family history of reaction to anesthesia BROTHER-NAUSEA H/O blepharoplasty RT/LEFT History of anesthesia reaction SLOW TO WAKE UP History of cholecystectomy History of colonoscopy History of esophagogastroduodenoscopy (EGD) History of surgery robot-assist left thorascopic resection of schwannoma from left upper mediastinum. 03/16/2018. SANG. A line. No issues. History of thyroidectomy, total History of tonsillectomy History of tooth extraction S/P LASIK surgery of both eyes Status post hysteroscopic ablation of endometrium Family History Grandmother (Maternal) Family history of diabetes mellitus Mother Ovarian cancer Social History Smoking Status: Never smoker Second Hand Exposure: No; Hx Alcohol Use: No Hx Substance Use: No Preferred Language: Arabic Communication Ability: Effective Decision Analyst Required: No Beliefs That Will Affect Care: None marital status: Current Living Situation: Significant Other Feels Safe at Home: Yes and Hesitant to Answer Assistive Devices: Denture - Upper, Denture - Lower and Glasses Review of Systems Review of Systems: All systems reviewed & are unremarkable except as noted in HPI & below Physical Exam Psychiatric: Orientation: alert and cooperative Apperance: + disheveled Eye Contact: + fair eye contact Motor Behavior: no abnormal motor movements Speech: normal rate/rhythm/volume of speech Affect: + depressed affect Mood: + depressed mood and + anxious mood Thought Process: + perseveration Thought Content: reality based without delusions Suicidal Thoughts: denies suicidal thoughts Homicidal Thoughts: denies homicidal thoughts Hallucinations: no auditory hallucinations and no visual hallucinations Cognition: attention grossly intact Estimated Intelligence: consistent with education level Insight: + limited insight Judgement: + limited judgement Vital Signs (Past 24 Hours): Last Vital Signs Temp 36.6 C 04/02/21 06:40 Pulse 75 04/02/21 06:42 Resp 16 04/02/21 06:40 BP 109/69 04/02/21 06:42 Pulse Ox 98 04/01/21 20:57 Exam Statement: A physical exam was performed in the ED by Landy for the purposes of medical clearance. I accept that physical as correct and adequate for the purposes of the inpatient physical exam. Results & Data ([facility]) Laboratory Results Laboratory Results - last 24 hr 04/01/21 04/01/21 04/01/21 17:31 17:31 17:31 WBC 9.27 RBC 4.78 Hgb 13.8 Hct 41.9 MCV 87.7 MCH 28.9 MCHC 32.9 RDW Std Deviation 43.5 RDW Coeff of Daphney 13.5 Plt Count 317 MPV 9.8 Immature Gran % (Auto) 0.1 Neut % (Auto) 57.5 Lymph % (Auto) 31.4 [place] % (Auto) 8.3 Eos % (Auto) 2.4 Baso % (Auto) 0.3 Neut # (Auto) 5.33 Lymph # (Auto) 2.91 [place] # (Auto) 0.77 H Eos # (Auto) 0.22 Baso # (Auto) 0.03 Immature Gran # (Auto) 0.01 Sodium 136 Potassium 4.2 Chloride 103 Carbon Dioxide 29 Anion Gap 4.0 BUN 12 Creatinine 0.76 Est Cr Clr Drug Dosing 92.2 Est GFR ( Amer) 100.2 Est GFR (Non-Af Amer) 86.5 BUN/Creatinine Ratio 15.5 Glucose 227 H POC Glucose Calcium 9.0 Total Bilirubin 0.9 AST 21 ALT 31 Alkaline Phosphatase 115 Total Protein 7.9 Albumin 3.6 Globulin 4.3 H Albumin/Globulin Ratio 0.8 L TSH 0.027 L Free T4 1.99 H Urine Color Urine Appearance Urine pH Ur Specific [place] Urine Protein Urine Glucose (UA) Urine Ketones Urine Blood Urine Nitrite Urine Bilirubin Urine Urobilinogen Ur Leukocyte Esterase Urine WBC (Auto) Urine RBC (Auto) U Hyaline Cast (Auto) U Epithel Cells (Auto) Urine Bacteria (Auto) Salicylates < 1.7 L Urine Opiates Screen Ur Methadone, Qual Acetaminophen < 2 L Urine Barbiturates Ur Phencyclidine (PCP) U Amphetamin/Meth Scrn MDMA (Ecstasy) Screen U Benzodiazepines Scrn Ur Cocaine Metabolite U Marijuana (THC) Screen Ethyl Alcohol mg/dL COVID-19 Eval Order SARS-CoV-2 (PCR) 04/01/21 04/01/21 04/01/21 17:31 17:57 17:57 WBC RBC Hgb Hct MCV MCH MCHC RDW Std Deviation RDW Coeff of Daphney Plt Count MPV Immature Gran % (Auto) Neut % (Auto) Lymph % (Auto) [place] % (Auto) Eos % (Auto) Baso % (Auto) Neut # (Auto) Lymph # (Auto) [place] # (Auto) Eos # (Auto) Baso # (Auto) Immature Gran # (Auto) Sodium Potassium Chloride Carbon Dioxide Anion Gap BUN Creatinine Est Cr Clr Drug Dosing Est GFR ( Amer) Est GFR (Non-Af Amer) BUN/Creatinine Ratio Glucose POC Glucose Calcium Total Bilirubin AST ALT Alkaline Phosphatase Total Protein Albumin Globulin Albumin/Globulin Ratio TSH Free T4 Urine Color Urine Appearance Urine pH Ur Specific [place] Urine Protein Urine Glucose (UA) Urine Ketones Urine Blood Urine Nitrite Urine Bilirubin Urine Urobilinogen Ur Leukocyte Esterase Urine WBC (Auto) Urine RBC (Auto) U Hyaline Cast (Auto) U Epithel Cells (Auto) Urine Bacteria (Auto) Salicylates Urine Opiates Screen Ur Methadone, Qual Acetaminophen Urine Barbiturates Ur Phencyclidine (PCP) U Amphetamin/Meth Scrn MDMA (Ecstasy) Screen U Benzodiazepines Scrn Ur Cocaine Metabolite U Marijuana (THC) Screen Ethyl Alcohol mg/dL < 3.0 COVID-19 Eval Order Covid19 at [facility] SARS-CoV-2 (PCR) NEGATIVE 04/01/21 04/01/21 04/01/21 18:00 18:00 22:07 WBC RBC Hgb Hct MCV MCH MCHC RDW Std Deviation RDW Coeff of Daphney Plt Count MPV Immature Gran % (Auto) Neut % (Auto) Lymph % (Auto) [place] % (Auto) Eos % (Auto) Baso % (Auto) Neut # (Auto) Lymph # (Auto) [place] # (Auto) Eos # (Auto) Baso # (Auto) Immature Gran # (Auto) Sodium Potassium Chloride Carbon Dioxide Anion Gap BUN Creatinine Est Cr Clr Drug Dosing Est GFR ( Amer) Est GFR (Non-Af Amer) BUN/Creatinine Ratio Glucose POC Glucose 187 H Calcium Total Bilirubin AST ALT Alkaline Phosphatase Total Protein Albumin Globulin Albumin/Globulin Ratio TSH Free T4 Urine Color Dark Yellow Urine Appearance Clear Urine pH 5.0 Ur Specific [place] 1.021 Urine Protein Negative Urine Glucose (UA) Trace H Urine Ketones Trace H Urine Blood Negative Urine Nitrite Negative Urine Bilirubin Negative Urine Urobilinogen Negative Ur Leukocyte Esterase 1+ H Urine WBC (Auto) 1-5 Urine RBC (Auto) 0-4 U Hyaline Cast (Auto) 5-10 H U Epithel Cells (Auto) >30 H Urine Bacteria (Auto) Negative Salicylates Urine Opiates Screen Neg Ur Methadone, Qual Neg Acetaminophen Urine Barbiturates Neg Ur Phencyclidine (PCP) Neg U Amphetamin/Meth Scrn Neg MDMA (Ecstasy) Screen Neg U Benzodiazepines Scrn Neg Ur Cocaine Metabolite Neg U Marijuana (THC) Screen Neg Ethyl Alcohol mg/dL COVID-19 Eval Order SARS-CoV-2 (PCR) 04/02/21 07:44 WBC RBC Hgb Hct MCV MCH MCHC RDW Std Deviation RDW Coeff of Daphney Plt Count MPV Immature Gran % (Auto) Neut % (Auto) Lymph % (Auto) [place] % (Auto) Eos % (Auto) Baso % (Auto) Neut # (Auto) Lymph # (Auto) [place] # (Auto) Eos # (Auto) Baso # (Auto) Immature Gran # (Auto) Sodium Potassium Chloride Carbon Dioxide Anion Gap BUN Creatinine Est Cr Clr Drug Dosing Est GFR ( Amer) Est GFR (Non-Af Amer) BUN/Creatinine Ratio Glucose POC Glucose 195 H Calcium Total Bilirubin AST ALT Alkaline Phosphatase Total Protein Albumin Globulin Albumin/Globulin Ratio TSH Free T4 Urine Color Urine Appearance Urine pH Ur Specific [place] Urine Protein Urine Glucose (UA) Urine Ketones Urine Blood Urine Nitrite Urine Bilirubin Urine Urobilinogen Ur Leukocyte Esterase Urine WBC (Auto) Urine RBC (Auto) U Hyaline Cast (Auto) U Epithel Cells (Auto) Urine Bacteria (Auto) Salicylates Urine Opiates Screen Ur Methadone, Qual Acetaminophen Urine Barbiturates Ur Phencyclidine (PCP) U Amphetamin/Meth Scrn MDMA (Ecstasy) Screen U Benzodiazepines Scrn Ur Cocaine Metabolite U Marijuana (THC) Screen Ethyl Alcohol mg/dL COVID-19 Eval Order SARS-CoV-2 (PCR) Current Inpatient Medications Current Inpatient Medications: Current Inpatient Medications Acetaminophen (Acetaminophen 325 Mg Tab) 650 mg PO Q4H PRN PRN Reason: Headache or Minor Fever Stop: 05/01/21 20:40 Al Hydrox/Mg Hydrox/Simethicone (Aluminum/Magnesium Susp 30 Ml Udc) 30 ml PO Q4H PRN PRN Reason: GI Upset Stop: 05/01/21 20:40 Amlodipine Besylate (Amlodipine Besylate 5 Mg Tab) 2.5 mg PO HS WILLIAM Stop: 05/01/21 20:59 Last Admin: 04/01/21 22:02 Dose: 2.5 mg Documented by: Aspirin (Aspirin 81 Mg Ectab) 81 mg PO QAM WILLIAM Stop: 05/02/21 08:59 Atorvastatin Calcium (Atorvastatin 40 Mg Tab) 80 mg PO QPM WILLIAM Stop: 05/01/21 20:59 Last Admin: 04/01/21 22:01 Dose: 80 mg Documented by: Bismuth Subsalicylate (Bismuth Subsalicylate Liqd 236 Ml) 15 ml PO PRN PRN PRN Reason: Loose Stool Stop: 05/01/21 20:40 Clonazepam (Clonazepam 0.25 Mg Tab) 0.25 mg PO BID WILLIAM Stop: 05/01/21 20:59 Last Admin: 04/01/21 22:17 Dose: 0.25 mg Documented by: Dextrose (Dextrose 50% 50 Ml Syringe) 25 - 50 ml IV UD PRN; Protocol PRN Reason: Hypoglycemia Protocol Stop: 05/01/21 21:29 Gabapentin (Gabapentin 100 Mg Cap) 100 mg PO TID WILLIAM Stop: 05/01/21 20:59 Last Admin: 04/01/21 22:01 Dose: 100 mg Documented by: Glucagon (Glucagon For Inj 1 Mg Vial) 1 mg IM UD PRN; Protocol PRN Reason: Hypoglycemia Protocol Stop: 05/01/21 21:29 Glucose (Glucose 40% Gel 15 Gm Tube) 15 - 30 gm PO UD PRN; Protocol PRN Reason: Hypoglycemia Protocol Stop: 05/01/21 21:29 Glucose (Glucose 10 Tabs/Tube) 4 - 8 tabs PO UD PRN; Protocol PRN Reason: Hypoglycemia Protocol Stop: 05/01/21 21:29 Hydroxyzine HCl (Hydroxyzine Hcl 25 Mg Tab) 50 mg PO HSZ PRN PRN Reason: Insomnia Stop: 05/01/21 20:40 Last Admin: 04/01/21 22:17 Dose: 50 mg Documented by: Hydroxyzine HCl (Hydroxyzine Hcl 25 Mg Tab) 25 mg PO Q4H PRN PRN Reason: Anxiety Stop: 05/01/21 20:40 Insulin Aspart (Insulin Aspart 100 Units/Ml 3 Ml Pen) 0 units SC [facility]; Protocol Stop: 05/01/21 21:59 Last Admin: 04/01/21 22:09 Dose: 3 units Documented by: Insulin Glargine (Insulin Glargine Solostar 100 Units/Ml 3 Ml Pen) 22 units SC [facility]; Protocol Stop: 05/01/21 21:59 Last Admin: 04/01/21 22:08 Dose: 22 units Documented by: Levothyroxine Sodium (Levothyroxine Sodium 175 Mcg Tablet) 175 mcg PO DAILYBB S CH Stop: 05/02/21 07:59 Last Admin: 04/02/21 08:00 Dose: 175 mcg Documented by: Magnesium Hydroxide (Magnesium Hydroxide Susp 30 Ml Udc) 30 ml PO DAILY PRN PRN Reason: Constipation Stop: 05/01/21 20:40 Metformin HCl (Metformin Hcl 500 Mg Tab) 1,000 mg PO BIDM [facility] Stop: 05/02/21 08:59 Miscellaneous (Carbohydrates For Hypoglycemia ) 15 - 30 gm PO UD PRN PRN Reason: Hypoglycemia Treatment Stop: 05/01/21 21:29 Miscellaneous Information (Pharmacy Glycemic Mgmt Consult) 1 ea N/A UD PRN PRN Reason: Consult Stop: 05/01/21 21:14 Pantoprazole Sodium (Pantoprazole 40 Mg Tab) 40 mg PO BID WILLIAM Stop: 05/01/21 20:59 Last Admin: 04/01/21 22:02 Dose: 40 mg Documented by: Sodium Chloride (Sodium Chloride 0.65% Na Soln 45 Ml ([place])) 1 - 2 sprays NA PRN PRN PRN Reason: Nasal Dryness/Congestion Stop: 05/01/21 20:40
[2021-04-02] MEDS: INSULIN ASPART 100 UNITS/ML 3 ML PEN SC SCH ×4 (10:14→20:47)
[2021-04-02] MEDS: amLODIPine BESYLATE 5 MG TAB PO SCH (20:46)
[2021-04-02] MEDS: ATORVASTATIN 40 MG TAB PO SCH (20:46)
[2021-04-02] MEDS ORDERED: INSULIN GLARGINE SOLOSTAR 100 UNITS/ML 3 ML PEN SC SCH (22:00)
--- NOTE | 2021-04-03 08:36 | Pharmacy Report ---
Pharmacy Glycemic Short Note 2 - Date of Service April 03, 2021 - Glycemic Short BSG Results (Last 24 hours): 04/02/21 04/02/21 04/02/21 12:12 17:10 20:40 POC Glucose 136 H 128 H 142 H 04/03/21 07:28 POC Glucose 130 H OUTPATIENT ANTIDIABETIC REGIMEN: * Metformin 1000 mg PO BIDM * OmniPod Dash * Basal: 8909-1275 - 1.8 unit/hr, 5675-6619 - 1.9 unit/hr (total: 43.95 unit/hr) * ICR: 5, CF: 18 * HbA1c: 9.8% (03/13/21) ASSESSMENT: 04/04 * BSGs improved throughout the day yesterday, 195, 136, 128, and 142 mg/dL * Received 47 units of insulin (28 units of basal and 19 units of prandial/correctional bolus) in addition to metformin 1 g PO BIDM * Fasting BSG improved today to 130 mg/dL * Will continue yesterday's basal dose 04/03 * PB is a 56 year old female who presented last evening per referral from ps ychiatrist, as things have not been going well since her recent discharge on 03/19/21 * Omnipod pump disconnected on admission - will manage with SC basal/bolus insulin * Fasting BSG of 195 mg/dL this morning - received 22 units of basal * Maintained good glycemic control last admission, will plan to keep similar insulin doses and continue outpatient metformin * However, fasting BSGs were trending up towards end of last admission, so will plan to provide at least 22 units with allowance for ~25% increase PLAN FOR INPATIENT GLYCEMIC CONTROL: * Metformin 1000 mg PO BIDM * Basal insulin * Lantus 28 units SC HS (full weight-based stress of 2 dosing) * Bolus insulin * NovoLog per scale ACHS or Q6hrs while NPO * Goal Range: Low 110 mg/dL - High 140 mg/dL * Correction Factor: 20 mg/dL/unit * Nutritional / Prandial insulin per carb ratio of 1 unit per 6 grams CHO consumed PLAN FOR DISCHARGE: * tbd
[2021-04-03] MEDS: INSULIN ASPART 100 UNITS/ML 3 ML PEN SC SCH ×4 (08:44→21:06)
[2021-04-03] MEDS: LEVOTHYROXINE SODIUM 175 MCG TABLET PO SCH (08:49)
[2021-04-03] MEDS: metFORMIN HCL 500 MG TAB PO SCH ×2 (08:49→17:36)
[2021-04-03] MEDS: ASPIRIN 81 MG ECTAB PO SCH (08:49)
[2021-04-03] MEDS: clonazePAM 0.25 MG TAB PO SCH ×2 (08:50→20:53)
[2021-04-03] MEDS: GABAPENTIN 100 MG CAP PO SCH ×3 (08:51→20:54)
[2021-04-03] MEDS: PANTOprazole 40 MG TAB PO SCH ×2 (08:51→20:54)
[2021-04-03] MEDS: VENLAFAXINE HCL XR 75 MG CAPXR PO SCH (11:43)
--- NOTE | 2021-04-03 14:44 | Psychiatric Progress Note ---
Date of Service April 03, 2021 Impression / Recommendations Impression 56 yo female presents with ongoing anxiety and depression due to complex bereavement given recent loss of partner and prior witness to own father's as a child. Although she is not actively suicidal she is unable to function at her apartment and is high risk as doesn't want to be a burden to her children and has insulin pump for management of DM. 04/03/21--worsening emotional control this pm as faces realities that "can't live here". (1) Major depressive disorder with current active episode: 04/03/21--reassured patient that a prn for sleep will be provided upon cheryl mcdonald. 04/02/21--The patient was admitted to the [facility] ([facility] mental health unit) on q15 min checks (behavioral with suicide precautions) for safety. The patient will participate in group, recreational, and milieu therapies and will be offered additional individual and family sessions as clinically appropriate. Agreed to titration of Effexor XR to 75 mg daily with target dose of 150 mg daily. (2) Postsurgical hypothyroidism: 04/02/21 current labs show mild overcorrection which may actually help to augment antidepressant, defer to PCP for recheck as outpatient. (3) Diabetes mellitus, type II: 04/02/21 no insulin pump while on unit, glycemic pharmacy consult. Inventory Assets Strengths: builds strong attachments, help seeking Needs: sleep regulation, support around self-care Risk Factors Assessment Male: No : Yes Do You Have Access To A Gun?: No Health Problems: Yes Mental Health Diagnoses: Yes Substance Use Disorders: No Previous Attempt: No Previous Psychiatric Hospitalization: Yes Protective Factors Assessment : No Employed: No Supportive Family: Yes Interval History Chief Complaint "I know I just have to do it but I'm scare and can't stop crying". Review of Systems Sleep Information Total Hours of Sleep: 8.5 Meal Information Percent Meal Consumed - Breakfast: 75 Percent Meal Consumed - Lunch: 100 Percent Meal Consumed - Dinner: 95 Subjective Subjective Patient was seen & assessed and interval progress reviewed with nursing and social work. Slept again but only with light on and has significant fears and separation anxiety at night. Decompensating after emotional meeting with her daughter. Feels very helpless and hopeless like "I don't know why people get over and I can't continue to live". Denies active SI on unit. Physical Exam Psychiatric Orientation: alert and cooperative Apperance: + disheveled Eye Contact: + fair eye contact Motor Behavior: no abnormal motor movements Speech: normal rate/rhythm/volume of speech Affect: + depressed affect Mood: + depressed mood and + anxious mood Thought Process: + perseveration Thought Content: reality based without delusions Suicidal Thoughts: denies suicidal thoughts Homicidal Thoughts: denies homicidal thoughts Hallucinations: no auditory hallucinations and no visual hallucinations Cognition: attention grossly intact Estimated Intelligence: consistent with education level Insight: + limited insight Judgement: + limited judgement Vital Signs (Past 24 Hours) Last Vital Signs Temp 36.4 C L 04/03/21 06:36 Pulse 73 04/03/21 06:36 Resp 16 04/03/21 06:36 BP 107/73 04/03/21 06:36 Pulse Ox 98 04/01/21 20:57 Results & Data (U) Laboratory Results Laboratory Results - last 24 hr 04/02/21 04/02/21 04/03/21 17:10 20:40 07:28 POC Glucose 128 H 142 H 130 H 04/03/21 12:11 POC Glucose 164 H Current Inpatient Medications Current Inpatient Medications: Current Inpatient Medications Acetaminophen (Acetaminophen 325 Mg Tab) 650 mg PO Q4H PRN PRN Reason: Headache or Minor Fever Stop: 05/01/21 20:40 Al Hydrox/Mg Hydrox/Simethicone (Aluminum/Magnesium Susp 30 Ml Udc) 30 ml PO Q4H PRN PRN Reason: GI Upset Stop: 05/01/21 20:40 Amlodipine Besylate (Amlodipine Besylate 5 Mg Tab) 2.5 mg PO HS WILLIAM Stop: 05/01/21 20:59 Last Admin: 04/02/21 20:46 Dose: 2.5 mg Documented by: Aspirin (Aspirin 81 Mg Ectab) 81 mg PO QAM WILLIAM Stop: 05/02/21 08:59 Last Admin: 04/03/21 08:49 Dose: 81 mg Documented by: Atorvastatin Calcium (Atorvastatin 40 Mg Tab) 80 mg PO QPM WILLIAM Stop: 05/01/21 20:59 Last Admin: 04/02/21 20:46 Dose: 80 mg Documented by: Bismuth Subsalicylate (Bismuth Subsalicylate Liqd 236 Ml) 15 ml PO PRN PRN PRN Reason: Loose Stool Stop: 05/01/21 20:40 Clonazepam (Clonazepam 0.25 Mg Tab) 0.25 mg PO BID [facility] Stop: 05/01/21 20:59 Last Admin: 04/03/21 08:50 Dose: 0.25 mg Documented by: Dextrose (Dextrose 50% 50 Ml Syringe) 25 - 50 ml IV UD PRN; Protocol PRN Reason: Hypoglycemia Protocol Stop: 05/01/21 21:29 Gabapentin (Gabapentin 100 Mg Cap) 100 mg PO TID [facility] Stop: 05/01/21 20:59 Last Admin: 04/03/21 13:12 Dose: 100 mg Documented by: Glucagon (Glucagon For Inj 1 Mg Vial) 1 mg IM UD PRN; Protocol PRN Reason: Hypoglycemia Protocol Stop: 05/01/21 21:29 Glucose (Glucose 40% Gel 15 Gm Tube) 15 - 30 gm PO UD PRN; Protocol PRN Reason: Hypoglycemia Protocol Stop: 05/01/21 21:29 Glucose (Glucose 10 Tabs/Tube) 4 - 8 tabs PO UD PRN; Protocol PRN Reason: Hypoglycemia Protocol Stop: 05/01/21 21:29 Hydroxyzine HCl (Hydroxyzine Hcl 25 Mg Tab) 50 mg PO HSZ PRN PRN Reason: Insomnia Stop: 05/01/21 20:40 Last Admin: 04/01/21 22:17 Dose: 50 mg Documented by: Hydroxyzine HCl (Hydroxyzine Hcl 25 Mg Tab) 25 mg PO Q4H PRN PRN Reason: Anxiety Stop: 05/01/21 20:40 Insulin Aspart (Insulin Aspart 100 Units/Ml 3 Ml Pen) 0 units SC [facility]; Protocol Stop: 05/01/21 21:59 Last Admin: 04/03/21 12:58 Dose: 11 units Documented by: Insulin Glargine (Insulin Glargine Solostar 100 Units/Ml 3 Ml Pen) 28 units SC [facility]; Protocol Stop: 05/01/21 21:59 Levothyroxine Sodium (Levothyroxine Sodium 175 Mcg Tablet) 175 mcg PO DAILYBB [facility] Stop: 05/02/21 07:59 Last Admin: 04/03/21 08:49 Dose: 175 mcg Documented by: Magnesium Hydroxide (Magnesium Hydroxide Susp 30 Ml Udc) 30 ml PO DAILY PRN PRN Reason: Constipation Stop: 05/01/21 20:40 Metformin HCl (Metformin Hcl 500 Mg Tab) 1,000 mg PO BIDM WILLIAM Stop: 05/02/21 08:59 Last Admin: 04/03/21 08:49 Dose: 1,000 mg Documented by: Miscellaneous (Carbohydrates For Hypoglycemia ) 15 - 30 gm PO UD PRN PRN Reason: Hypoglycemia Treatment Stop: 05/01/21 21:29 Miscellaneous Information (Pharmacy Glycemic Mgmt Consult) 1 ea N/A UD PRN PRN Reason: Consult Stop: 05/01/21 21:14 Pantoprazole Sodium (Pantoprazole 40 Mg Tab) 40 mg PO BID WILLIAM Stop: 05/01/21 20:59 Last Admin: 04/03/21 08:51 Dose: 40 mg Documented by: Sodium Chloride (Sodium Chloride 0.65% Na Soln 45 Ml ([place])) 1 - 2 sprays NA PRN PRN PRN Reason: Nasal Dryness/Congestion Stop: 05/01/21 20:40 Venlafaxine HCl (Venlafaxine Hcl Xr 75 Mg Capxr) 75 mg PO QAM WILLIAM Stop: 05/03/21 10:14 Last Admin: 04/03/21 11:43 Dose: 75 mg Documented by: Mental Health & Subst Abuse Tx Psychiatrist Name of Psychiatrist: Christina Roberts Psychiatrist's Psychiatric Appointment Comment: [address] [facility] Therapist Name of Therapist: None - being set up with Psychiatric Rehab [employer] Make Up Helper Name of [employer] Make Up Helper: MACEY Nicole Post Discharge Appointments Primary Care Physician Name Of Family Doctor: Caroline Diaz Primary Care Provider [facility] [address] [facility] (1) Major depressive disorder with current active episode Major depression recurrence: unspecified whether recurrent Major depression episode severity: severe Psychotic features: without psychotic features Qualified Code(s): F32.2 - Major depressive disorder, single episode, severe without psychotic features
[2021-04-03] MEDS: ATORVASTATIN 40 MG TAB PO SCH (20:53)
[2021-04-03] MEDS: amLODIPine BESYLATE 5 MG TAB PO SCH (20:54)
[2021-04-03] MEDS: INSULIN GLARGINE SOLOSTAR 100 UNITS/ML 3 ML PEN SC SCH (21:04)
[2021-04-04] MEDS: LEVOTHYROXINE SODIUM 175 MCG TABLET PO SCH (07:48)
[2021-04-04] MEDS: INSULIN ASPART 100 UNITS/ML 3 ML PEN SC SCH ×4 (09:29→19:51)
[2021-04-04] MEDS: ASPIRIN 81 MG ECTAB PO SCH (09:30)
[2021-04-04] MEDS: PANTOprazole 40 MG TAB PO SCH ×2 (09:31→20:59)
[2021-04-04] MEDS: GABAPENTIN 100 MG CAP PO SCH ×3 (09:31→20:58)
[2021-04-04] MEDS: metFORMIN HCL 500 MG TAB PO SCH ×2 (09:31→17:11)
[2021-04-04] MEDS: VENLAFAXINE HCL XR 75 MG CAPXR PO SCH (09:31)
[2021-04-04] MEDS: clonazePAM 0.25 MG TAB PO SCH ×2 (09:32→20:58)
[2021-04-04] MEDS ORDERED: VENLAFAXINE HCL XR 37.5 MG CAPXR PO ONE (10:30)
--- NOTE | 2021-04-04 12:08 | Psychiatric Progress Note ---
Date of Service April 04, 2021 Impression / Recommendations Impression 56 yo female presents with ongoing anxiety and depression due to complex bereavement given recent loss of partner and prior witness to own father's as a child. Although she is not actively suicidal she is unable to function at her apartment and is high risk as doesn't want to be a burden to her children and has insulin pump for management of DM. 04/04/21--slow improvement (1) Major depressive disorder with current active episode: 04/04/21--titrate Effexor XR to 112.5 mg today and 150 mg po qam starting tomorrow. Requesting prn Vistaril 50 mg hs prn for discharge as sleep issues are mainly at home. D/C [facility]. 04/03/21--reassured patient that a prn for sleep will be provided upon discharge. 04/02/21--The patient was admitted to the [facility] ([facility] health unit) on q15 min checks (behavioral with suicide precautions) for safety. The patient will participate in group, recreational, and milieu therapies and will be offered additional individual and family sessions as clinically appropriate. Agreed to titration of Effexor XR to 75 mg daily with target dose of 150 mg daily. (2) Postsurgical hypothyroidism: 04/02/21 current labs show mild overcorrection which may actually help to augment antidepressant, defer to PCP for recheck as outpatient. (3) Diabetes mellitus, type II: 04/02/21 no insulin pump while on unit, glycemic pharmacy consult. Inventory Assets Strengths: builds strong attachments, help seeking Needs: sleep regulation, support around self-care Risk Factors Assessment Male: No : Yes Do You Have Access To A Gun?: No Health Problems: Yes Mental Health Diagnoses: Yes Substance Use Disorders: No Previous Attempt: No Previous Psychiatric Hospitalization: Yes Protective Factors Assessment : No Employed: No Supportive Family: Yes Interval History Chief Complaint "I'm going to by some plants". commenting on how to make her room more homey. Review of Systems Sleep Information Total Hours of Sleep: 7.5 Meal Information Percent Meal Consumed - Breakfast: 75 Percent Meal Consumed - Lunch: 100 Percent Meal Consumed - Dinner: 75 Subjective Subjective Patient was seen & assessed and interval progress reviewed with treatment team. She rated mood as a 3 last pm and "pissy", refers to self as stubborn. Is less angry with her daughter. Doesn't seem clear how to structure her time. Apartment doesn't allow pets, no even fish so she feels that plants would keep her company. Denies medication related side effects. States that when came to hospital she had thoughts of impulsively taking extra medication. Clarifies that mainly felt her anxiety was out of control but "I'm glad i'm here as I'm not sure I wouldn't have done it." Physical Exam Psychiatric Orientation: alert and cooperative Apperance: appropriately dressed Eye Contact: + fair eye contact Motor Behavior: no abnormal motor movements Speech: normal rate/rhythm/volume of speech Affect: + depressed affect Mood: + anxious mood Thought Process: + perseveration Thought Content: reality based without delusions Suicidal Thoughts: denies suicidal thoughts Homicidal Thoughts: denies homicidal thoughts Hallucinations: no auditory hallucinations and no visual hallucinations Cognition: attention grossly intact Estimated Intelligence: consistent with education level Insight: + limited insight Judgement: + limited judgement Vital Signs (Past 24 Hours) Last Vital Signs Temp 36.5 C 04/04/21 06:41 Pulse 78 04/04/21 06:42 Resp 16 04/04/21 06:41 BP 107/66 04/04/21 06:42 Pulse Ox 98 04/01/21 20:57 Results & Data ([facility]) Laboratory Results Laboratory Results - last 24 hr 04/03/21 04/03/21 04/03/21 12:11 17:10 20:58 POC Glucose 164 H 160 H 220 H 04/04/21 07:45 POC Glucose 154 H Current Inpatient Medications Current Inpatient Medications: Current Inpatient Medications Acetaminophen (Acetaminophen 325 Mg Tab) 650 mg PO Q4H PRN PRN Reason: Headache or Minor Fever Stop: 05/01/21 20:40 Al Hydrox/Mg Hydrox/Simethicone (Aluminum/Magnesium Susp 30 Ml Udc) 30 ml PO Q4H PRN PRN Reason: GI Upset Stop: 05/01/21 20:40 Amlodipine Besylate (Amlodipine Besylate 5 Mg Tab) 2.5 mg PO HS WILLIAM Stop: 05/01/21 20:59 Last Admin: 04/03/21 20:54 Dose: 2.5 mg Documented by: Aspirin (Aspirin 81 Mg Ectab) 81 mg PO QAM WILLIAM Stop: 05/02/21 08:59 Last Admin: 04/04/21 09:30 Dose: 81 mg Documented by: Atorvastatin Calcium (Atorvastatin 40 Mg Tab) 80 mg PO QPM WILLIAM Stop: 05/01/21 20:59 Last Admin: 04/03/21 20:53 Dose: 80 mg Documented by: Bismuth Subsalicylate (Bismuth Subsalicylate Liqd 236 Ml) 15 ml PO PRN PRN PRN Reason: Loose Stool Stop: 05/01/21 20:40 Clonazepam (Clonazepam 0.25 Mg Tab) 0.25 mg PO BID WILLIAM Stop: 05/01/21 20:59 Last Admin: 04/04/21 09:32 Dose: 0.25 mg Documented by: Dextrose (Dextrose 50% 50 Ml Syringe) 25 - 50 ml IV UD PRN; Protocol PRN Reason: Hypoglycemia Protocol Stop: 05/01/21 21:29 Gabapentin (Gabapentin 100 Mg Cap) 100 mg PO TID WILLIAM Stop: 05/01/21 20:59 Last Admin: 04/04/21 09:31 Dose: 100 mg Documented by: Glucagon (Glucagon For Inj 1 Mg Vial) 1 mg IM UD PRN; Protocol PRN Reason: Hypoglycemia Protocol Stop: 05/01/21 21:29 Glucose (Glucose 40% Gel 15 Gm Tube) 15 - 30 gm PO UD PRN; Protocol PRN Reason: Hypoglycemia Protocol Stop: 05/01/21 21:29 Glucose (Glucose 10 Tabs/Tube) 4 - 8 tabs PO UD PRN; Protocol PRN Reason: Hypoglycemia Protocol Stop: 05/01/21 21:29 Hydroxyzine HCl (Hydroxyzine Hcl 25 Mg Tab) 50 mg PO HSZ PRN PRN Reason: Insomnia Stop: 05/01/21 20:40 Last Admin: 04/01/21 22:17 Dose: 50 mg Documented by: Hydroxyzine HCl (Hydroxyzine Hcl 25 Mg Tab) 25 mg PO Q4H PRN PRN Reason: Anxiety Stop: 05/01/21 20:40 Insulin Aspart (Insulin Aspart 100 Units/Ml 3 Ml Pen) 0 units SC [facility]; Protocol Stop: 05/01/21 21:59 Last Admin: 04/04/21 09:29 Dose: 9 units Documented by: Insulin Glargine (Insulin Glargine Solostar 100 Units/Ml 3 Ml Pen) 28 units SC HS [facility]; Protocol Stop: 05/01/21 21:59 Last Admin: 04/03/21 21:04 Dose: 28 units Documented by: Levothyroxine Sodium (Levothyroxine Sodium 175 Mcg Tablet) 175 mcg PO DAILYBB WILLIAM Stop: 05/02/21 07:59 Last Admin: 04/04/21 07:48 Dose: 175 mcg Documented by: Magnesium Hydroxide (Magnesium Hydroxide Susp 30 Ml Udc) 30 ml PO DAILY PRN PRN Reason: Constipation Stop: 05/01/21 20:40 Metformin HCl (Metformin Hcl 500 Mg Tab) 1,000 mg PO BIDM WILLIAM Stop: 05/02/21 08:59 Last Admin: 04/04/21 09:31 Dose: 1,000 mg Documented by: Miscellaneous (Carbohydrates For Hypoglycemia ) 15 - 30 gm PO UD PRN PRN Reason: Hypoglycemia Treatment Stop: 05/01/21 21:29 Miscellaneous Information (Pharmacy Glycemic Mgmt Consult) 1 ea N/A UD PRN PRN Reason: Consult Stop: 05/01/21 21:14 Pantoprazole Sodium (Pantoprazole 40 Mg Tab) 40 mg PO BID WILLIAM Stop: 05/01/21 20:59 Last Admin: 04/04/21 09:31 Dose: 40 mg Documented by: Sodium Chloride (Sodium Chloride 0.65% Na Soln 45 Ml ([place])) 1 - 2 sprays NA PRN PRN PRN Reason: Nasal Dryness/Congestion Stop: 05/01/21 20:40 Venlafaxine HCl (Venlafaxine Hcl Xr 150 Mg Capxr) 150 mg PO QAM WILLIAM Stop: 05/05/21 08:59 Mental Health & Subst Abuse Tx Psychiatrist Name of Psychiatrist: Christina Roberts Psychiatrist's Time of Appointment with Psychiatrist: Will follow up with you to schedule Psychiatric Appointment Comment: [address] [facility] Therapist Name of Therapist: None - being set up with Psychiatric Rehab Calender Inspector Name of Calender Inspector: MACEY Nicole Phone Number for Calender Inspector: [phone] Date of Appointment with Calender Inspector: 04/10/21 Time of Appointment with Calender Inspector: 11:30 a.m. Case Management Appointment Comment: Will follow up with you Post Discharge Appointments Primary Care Physician Name Of Family Doctor: Caroline Aguilera - Dr. Glen Diaz Primary Care Date of Appointment with PCP: 04/14/21 Time of Appointment with PCP: 11:00 a.m. Provider Appointment Comment: Wade Mathis Contact Information Discharge Discharge Address: [address] [place] [address] [place] [id number] (1) Major depressive disorder with current active episode Major depression recurrence: unspecified whether recurrent Major depression episode severity: severe Psychotic features: without psychotic features Qualified Code(s): F32.2 - Major depressive disorder, single episode, severe without psychotic features
[2021-04-04] MEDS: ATORVASTATIN 40 MG TAB PO SCH (20:58)
[2021-04-04] MEDS: amLODIPine BESYLATE 5 MG TAB PO SCH (20:59)
[2021-04-04] MEDS: INSULIN GLARGINE SOLOSTAR 100 UNITS/ML 3 ML PEN SC SCH (21:00)
[2021-04-05] MEDS: VENLAFAXINE HCL XR 150 MG CAPXR PO SCH (07:54)
[2021-04-05] MEDS: GABAPENTIN 100 MG CAP PO SCH ×3 (07:54→21:09)
[2021-04-05] MEDS: PANTOprazole 40 MG TAB PO SCH ×2 (07:55→21:09)
[2021-04-05] MEDS: metFORMIN HCL 500 MG TAB PO SCH ×2 (07:55→16:52)
[2021-04-05] MEDS: ASPIRIN 81 MG ECTAB PO SCH (07:55)
[2021-04-05] MEDS: LEVOTHYROXINE SODIUM 175 MCG TABLET PO SCH (07:56)
[2021-04-05] MEDS: clonazePAM 0.25 MG TAB PO SCH ×2 (08:09→21:10)
[2021-04-05] MEDS: INSULIN ASPART 100 UNITS/ML 3 ML PEN SC SCH ×4 (08:57→21:07)
--- NOTE | 2021-04-05 14:27 | Psychiatric Progress Note ---
Date of Service April 05, 2021 Impression / Recommendations Impression 56 yo female presents with ongoing anxiety and depression due to complex bereavement given recent loss of partner and prior witness to own father's as a child. Although she is not actively suicidal she is unable to function at her apartment and is high risk as doesn't want to be a burden to her children and has insulin pump for management of DM. 03/09 07/29--patient taken first dose of higher level of antidepressant (venlafaxine 150 mg XL) without side effects today. 04/04/21--slow improvement (1) Major depressive disorder with current active episode: 04/04/21--titrate Effexor XR to 112.5 mg today and 150 mg po qam starting tomorrow. Requesting prn Vistaril 50 mg hs prn for discharge as sleep issues are mainly at home. D/C MNPR. 04/03/21--reassured patient that a prn for sleep will be provided upon discharge. 04/02/21--The patient was admitted to the [facility] ([facility] unit) on q15 min checks (behavioral with suicide precautions) for safety. The patient will participate in group, recreational, and milieu therapies and will be offered additional individual and family sessions as clinically appropriate. Agreed to titration of Effexor XR to 75 mg daily with target dose of 150 mg daily. (2) Postsurgical hypothyroidism: 04/02/21 current labs show mild overcorrection which may actually help to augment antidepressant, defer to PCP for recheck as outpatient. (3) Diabetes mellitus, type II: 04/02/21 no insulin pump while on unit, glycemic pharmacy consult. Inventory Assets Strengths: builds strong attachments, help seeking Needs: sleep regulation, support around self-care Risk Factors Assessment Male: No : Yes Do You Have Access To A Gun?: No Health Problems: Yes Mental Health Diagnoses: Yes Substance Use Disorders: No Previous Attempt: No Previous Psychiatric Hospitalization: Yes Protective Factors Assessment : No Employed: No Supportive Family: Yes Interval History Chief Complaint "I am okay, I just did not think the medication was enough.". Review of Systems Sleep Information Total Hours of Sleep: 8 Meal Information Percent Meal Consumed - Breakfast: 90 Percent Meal Consumed - Lunch: 100 Percent Meal Consumed - Dinner: 100 Nutrition Comment: per meal record Subjective Subjective Patient was seen & assessed and interval progress reviewed with treatment team nursing and social work. Patient seen doing her laundry in the main room. She denies any issues. No side effects of the medication ribs observed or reported. Patient is sleeping well and eating well. She states that her mood is "fine" but then goes on to state how she was very depressed on the lower doses of medication after leaving the hospital the first time. Patient acknowledging that she took her dose of 150 mg extended release this morning, and reports no issues at this time. Maintaining her ADLs. Physical Exam Psychiatric Orientation: alert and cooperative Apperance: appropriately dressed and + disheveled Eye Contact: + fair eye contact Motor Behavior: no abnormal motor movements Speech: normal rate/rhythm/volume of speech Affect: + depressed affect Mood: + depressed mood and + anxious mood Thought Process: + perseveration Thought Content: reality based without delusions Suicidal Thoughts: denies suicidal thoughts Homicidal Thoughts: denies homicidal thoughts Hallucinations: no auditory hallucinations and no visual hallucinations Cognition: attention grossly intact Estimated Intelligence: consistent with education level Insight: + limited insight Judgement: + limited judgement Vital Signs (Past 24 Hours) Last Vital Signs Temp 36.6 C 04/05/21 06:00 Pulse 74 04/05/21 06:31 Resp 16 04/05/21 06:00 BP 100/61 04/05/21 06:31 Pulse Ox 98 04/01/21 20:57 Results & Data ([facility]) Laboratory Results Laboratory Results - last 24 hr 04/04/21 04/04/21 04/05/21 17:11 19:45 07:48 POC Glucose 97 156 H 132 H 04/05/21 12:26 POC Glucose 131 H Current Inpatient Medications Current Inpatient Medications: Current Inpatient Medications Acetaminophen (Acetaminophen 325 Mg Tab) 650 mg PO Q4H PRN PRN Reason: Headache or Minor Fever Stop: 05/01/21 20:40 Al Hydrox/Mg Hydrox/Simethicone (Aluminum/Magnesium Susp 30 Ml Udc) 30 ml PO Q4H PRN PRN Reason: GI Upset Stop: 05/01/21 20:40 Amlodipine Besylate (Amlodipine Besylate 5 Mg Tab) 2.5 mg PO HS WILLIAM Stop: 05/01/21 20:59 Last Admin: 04/04/21 20:59 Dose: 2.5 mg Documented by: Aspirin (Aspirin 81 Mg Ectab) 81 mg PO QAM [facility] Stop: 05/02/21 08:59 Last Admin: 04/05/21 07:55 Dose: 81 mg Documented by: Atorvastatin Calcium (Atorvastatin 40 Mg Tab) 80 mg PO QPM WILLIAM Stop: 05/01/21 20:59 Last Admin: 04/04/21 20:58 Dose: 80 mg Documented by: Bismuth Subsalicylate (Bismuth Subsalicylate Liqd 236 Ml) 15 ml PO PRN PRN PRN Reason: Loose Stool Stop: 05/01/21 20:40 Clonazepam (Clonazepam 0.25 Mg Tab) 0.25 mg PO BID WILLIAM Stop: 05/01/21 20:59 Last Admin: 04/05/21 08:09 Dose: 0.25 mg Documented by: Dextrose (Dextrose 50% 50 Ml Syringe) 25 - 50 ml IV UD PRN; Protocol PRN Reason: Hypoglycemia Protocol Stop: 05/01/21 21:29 Gabapentin (Gabapentin 100 Mg Cap) 100 mg PO TID [facility] Stop: 05/01/21 20:59 Last Admin: 04/05/21 12:55 Dose: 100 mg Documented by: Glucagon (Glucagon For Inj 1 Mg Vial) 1 mg IM UD PRN; Protocol PRN Reason: Hypoglycemia Protocol Stop: 05/01/21 21:29 Glucose (Glucose 40% Gel 15 Gm Tube) 15 - 30 gm PO UD PRN; Protocol PRN Reason: Hypoglycemia Protocol Stop: 05/01/21 21:29 Glucose (Glucose 10 Tabs/Tube) 4 - 8 tabs PO UD PRN; Protocol PRN Reason: Hypoglycemia Protocol Stop: 05/01/21 21:29 Hydroxyzine HCl (Hydroxyzine Hcl 25 Mg Tab) 50 mg PO HSZ PRN PRN Reason: Insomnia Stop: 05/01/21 20:40 Last Admin: 04/01/21 22:17 Dose: 50 mg Documented by: Hydroxyzine HCl (Hydroxyzine Hcl 25 Mg Tab) 25 mg PO Q4H PRN PRN Reason: Anxiety Stop: 05/01/21 20:40 Insulin Aspart (Insulin Aspart 100 Units/Ml 3 Ml Pen) 0 units SC [facility]; Protocol Stop: 05/01/21 21:59 Last Admin: 04/05/21 12:52 Dose: 10 units Documented by: Insulin Glargine (Insulin Glargine Solostar 100 Units/Ml 3 Ml Pen) 28 units SC HS [facility]; Protocol Stop: 05/01/21 21:59 Last Admin: 04/04/21 21:00 Dose: 28 units Documented by: Levothyroxine Sodium (Levothyroxine Sodium 175 Mcg Tablet) 175 mcg PO DAILYBB [facility] Stop: 05/02/21 07:59 Last Admin: 04/05/21 07:56 Dose: 175 mcg Documented by: Magnesium Hydroxide (Magnesium Hydroxide Susp 30 Ml Udc) 30 ml PO DAILY PRN PRN Reason: Constipation Stop: 05/01/21 20:40 Metformin HCl (Metformin Hcl 500 Mg Tab) 1,000 mg PO BIDM [facility] Stop: 05/02/21 08:59 Last Admin: 04/05/21 07:55 Dose: 1,000 mg Documented by: Miscellaneous (Carbohydrates For Hypoglycemia ) 15 - 30 gm PO UD PRN PRN Reason: Hypoglycemia Treatment Stop: 05/01/21 21:29 Miscellaneous Information (Pharmacy Glycemic Mgmt Consult) 1 ea N/A UD PRN PRN Reason: Consult Stop: 05/01/21 21:14 Pantoprazole Sodium (Pantoprazole 40 Mg Tab) 40 mg PO BID WILLIAM Stop: 05/01/21 20:59 Last Admin: 04/05/21 07:55 Dose: 40 mg Documented by: Sodium Chloride (Sodium Chloride 0.65% Na Soln 45 Ml ([place])) 1 - 2 sprays NA PRN PRN PRN Reason: Nasal Dryness/Congestion Stop: 05/01/21 20:40 Venlafaxine HCl (Venlafaxine Hcl Xr 150 Mg Capxr) 150 mg PO QAM [facility] Stop: 05/05/21 08:59 Last Admin: 04/05/21 07:54 Dose: 150 mg Documented by: Mental Health & Subst Abuse Tx Psychiatrist Name of Psychiatrist: Christina Roberts Psychiatrist's Time of Appointment with Psychiatrist: Will follow up with you to schedule Psychiatric Appointment Comment: [address] [facility] Therapist Name of Therapist: None - being set up with Psychiatric Rehab Wine Consultant Name of Wine Consultant: MACEY Nicole Phone Number for Wine Consultant: [phone] Date of Appointment with Wine Consultant: 04/10/21 Time of Appointment with Wine Consultant: 11:30 a.m. Case Management Appointment Comment: Will follow up with you Post Discharge Appointments Primary Care Physician Name Of Family Doctor: Caroline Aguilera - Dr. Glen Diaz Primary Care Date of Appointment with PCP: 04/14/21 Time of Appointment with PCP: 11:00 a.m. Provider Appointment Comment: Wade Mathis Contact Information Discharge Discharge Address: [address] [place] [address] [place] [id number] (1) Major depressive disorder with current active episode Major depression recurrence: unspecified whether recurrent Major depression episode severity: severe Psychotic features: without psychotic features Qual ified Code(s): F32.2 - Major depressive disorder, single episode, severe without psychotic features
[2021-04-05] MEDS: INSULIN GLARGINE SOLOSTAR 100 UNITS/ML 3 ML PEN SC SCH (21:08)
[2021-04-05] MEDS: ATORVASTATIN 40 MG TAB PO SCH (21:09)
[2021-04-05] MEDS: amLODIPine BESYLATE 5 MG TAB PO SCH (21:10)
[2021-04-06] MEDS: VENLAFAXINE HCL XR 150 MG CAPXR PO SCH (08:44)
[2021-04-06] MEDS: ASPIRIN 81 MG ECTAB PO SCH (08:44)
[2021-04-06] MEDS: GABAPENTIN 100 MG CAP PO SCH ×3 (08:45→20:51)
[2021-04-06] MEDS: metFORMIN HCL 500 MG TAB PO SCH ×2 (08:45→17:07)
[2021-04-06] MEDS: LEVOTHYROXINE SODIUM 175 MCG TABLET PO SCH (08:45)
[2021-04-06] MEDS: PANTOprazole 40 MG TAB PO SCH ×2 (08:46→20:51)
[2021-04-06] MEDS: clonazePAM 0.25 MG TAB PO SCH ×2 (08:48→20:51)
[2021-04-06] MEDS: INSULIN ASPART 100 UNITS/ML 3 ML PEN SC SCH ×4 (08:50→20:54)
--- NOTE | 2021-04-06 12:14 | Psychiatric Progress Note ---
Date of Service April 06, 2021 Impression / Recommendations Impression 56 yo female presents with ongoing anxiety and depression due to complex bereavement given recent loss of partner and prior witness to own father's as a child. Although she is not actively suicidal she is unable to function at her apartment and is high risk as doesn't want to be a burden to her children and has insulin pump for management of DM. 04/06/21--D/C planning for tomorrow. 04/05/21--patient taken first dose of higher level of antidepressant (venlafaxine 150 mg XL) without side effects today. 04/04/21--slow improvement (1) Major depressive disorder with current active episode: 04/06/2021-- Continue on current dose of venlafaxine. 04/04/21--titrate Effexor XR to 112.5 mg today and 150 mg po qam starting tomorrow. Requesting prn Vistaril 50 mg hs prn for discharge as sleep issues are mainly at home. D/C MNPR. 04/03/21--reassured patient that a prn for sleep will be provided upon discharge. 04/02/21--The patient was admitted to the [facility] ([facility] mental health unit) on q15 min checks (behavioral with suicide precautions) for safety. The patient will participate in group, recreational, and milieu therapies and will be offered additional individual and family sessions as clinically appropriate. Agreed to titration of Effexor XR to 75 mg daily with target dose of 150 mg daily. (2) Postsurgical hypothyroidism: 04/02/21 current labs show mild overcorrection which may actually help to augment antidepressant, defer to PCP for recheck as outpatient. (3) Diabetes mellitus, type II: 04/02/21 no insulin pump while on unit, glycemic pharmacy consult. Inventory Assets Strengths: builds strong attachments, help seeking Needs: sleep regulation, support around self-care Risk Factors Assessment Male: No : Yes Do You Have Access To A Gun?: No Health Problems: Yes Mental Health Diagnoses: Yes Substance Use Disorders: No Previous Attempt: No Previous Psychiatric Hospitalization: Yes Protective Factors Assessment : No Employed: No Supportive Family: Yes Interval History Chief Complaint "I think i'm ready to go today but i'm upset about homa". Review of Systems Sleep Information Total Hours of Sleep: 6.5 Meal Information Percent Meal Consumed - Breakfast: 100 Percent Meal Consumed - Lunch: 75 Percent Meal Consumed - Dinner: 100 Nutrition Comment: per meal record Subjective Subjective Patient was seen & assessed and interval progress reviewed with treatment team nursing and social work. Patient was seen today along with group social worker. Patient states that she is improving with regard to her mood and level of energy. She denies any adverse effects of the medication. She is tearful when discussing the situation with her daughter and her feeling as if she is burden. Supportive therapy offered x 45 mins. Patient's blood sugars remain WNL. Eating well. Sleep is improved although still broken. Physical Exam Psychiatric Orientation: alert and cooperative Apperance: appropriately dressed and + disheveled Eye Contact: + fair eye contact Motor Behavior: no abnormal motor movements Speech: normal rate/rhythm/volume of speech Affect: + depressed affect Mood: + depressed mood and + anxious mood Thought Process: + perseveration Thought Content: reality based without delusions Suicidal Thoughts: denies suicidal thoughts Homicidal Thoughts: denies homicidal thoughts Hallucinations: no auditory hallucinations and no visual hallucinations Cognition: attention grossly intact Estimated Intelligence: consistent with education level Insight: + limited insight Judgement: + limited judgement Vital Signs (Past 24 Hours) Last Vital Signs Temp 36.6 C 04/06/21 06:00 Pulse 80 04/06/21 06:27 Resp 16 04/06/21 06:00 BP 107/68 04/06/21 06:27 Pulse Ox 98 04/01/21 20:57 Results & Data ([facility]) Laboratory Results Laboratory Results - last 24 hr 04/05/21 04/05/21 04/05/21 12:26 16:50 21:00 POC Glucose 131 H 143 H 145 H 04/06/21 08:26 POC Glucose 132 H Current Inpatient Medications Current Inpatient Medications: Current Inpatient Medications Acetaminophen (Acetaminophen 325 Mg Tab) 650 mg PO Q4H PRN PRN Reason: Headache or Minor Fever Stop: 05/01/21 20:40 Al Hydrox/Mg Hydrox/Simethicone (Aluminum/Magnesium Susp 30 Ml Udc) 30 ml PO Q4H PRN PRN Reason: GI Upset Stop: 05/01/21 20:40 Amlodipine Besylate (Amlodipine Besylate 5 Mg Tab) 2.5 mg PO HS WILLIAM Stop: 05/01/21 20:59 Last Admin: 04/05/21 21:10 Dose: 2.5 mg Documented by: Aspirin (Aspirin 81 Mg Ectab) 81 mg PO QAM [facility] Stop: 05/02/21 08:59 Last Admin: 04/06/21 08:44 Dose: 81 mg Documented by: Atorvastatin Calcium (Atorvastatin 40 Mg Tab) 80 mg PO QPM [facility] Stop: 05/01/21 20:59 Last Admin: 04/05/21 21:09 Dose: 80 mg Documented by: Bismuth Subsalicylate (Bismuth Subsalicylate Liqd 236 Ml) 15 ml PO PRN PRN PRN Reason: Loose Stool Stop: 05/01/21 20:40 Clonazepam (Clonazepam 0.25 Mg Tab) 0.25 mg PO BID [facility] Stop: 05/01/21 20:59 Last Admin: 04/06/21 08:48 Dose: 0.25 mg Documented by: Dextrose (Dextrose 50% 50 Ml Syringe) 25 - 50 ml IV UD PRN; Protocol PRN Reason: Hypoglycemia Protocol Stop: 05/01/21 21:29 Gabapentin (Gabapentin 100 Mg Cap) 100 mg PO TID [facility] Stop: 05/01/21 20:59 Last Admin: 04/06/21 08:45 Dose: 100 mg Documented by: Glucagon (Glucagon For Inj 1 Mg Vial) 1 mg IM UD PRN; Protocol PRN Reason: Hypoglycemia Protocol Stop: 05/01/21 21:29 Glucose (Glucose 40% Gel 15 Gm Tube) 15 - 30 gm PO UD PRN; Protocol PRN Reason: Hypoglycemia Protocol Stop: 05/01/21 21:29 Glucose (Glucose 10 Tabs/Tube) 4 - 8 tabs PO UD PRN; Protocol PRN Reason: Hypoglycemia Protocol Stop: 05/01/21 21:29 Hydroxyzine HCl (Hydroxyzine Hcl 25 Mg Tab) 50 mg PO HSZ PRN PRN Reason: Insomnia Stop: 05/01/21 20:40 Last Admin: 04/01/21 22:17 Dose: 50 mg Documented by: Hydroxyzine HCl (Hydroxyzine Hcl 25 Mg Tab) 25 mg PO Q4H PRN PRN Reason: Anxiety Stop: 05/01/21 20:40 Insulin Aspart (Insulin Aspart 100 Units/Ml 3 Ml Pen) 0 units SC [facility]; Protocol Stop: 05/01/21 21:59 Last Admin: 04/06/21 08:50 Dose: 5 units Documented by: Insulin Glargine (Insulin Glargine Solostar 100 Units/Ml 3 Ml Pen) 28 units SC [facility]; Protocol Stop: 05/01/21 21:59 Last Admin: 04/05/21 21:08 Dose: 28 units Documented by: Levothyroxine Sodium (Levothyroxine Sodium 175 Mcg Tablet) 175 mcg PO DAILYBB [facility] Stop: 05/02/21 07:59 Last Admin: 04/06/21 08:45 Dose: 175 mcg Documented by: Magnesium Hydroxide (Magnesium Hydroxide Susp 30 Ml Udc) 30 ml PO DAILY PRN PRN Reason: Constipation Stop: 05/01/21 20:40 Metformin HCl (Metformin Hcl 500 Mg Tab) 1,000 mg PO BIDM [facility] Stop: 05/02/21 08:59 Last Admin: 04/06/21 08:45 Dose: 1,000 mg Documented by: Miscellaneous (Carbohydrates For Hypoglycemia ) 15 - 30 gm PO UD PRN PRN Reason: Hypoglycemia Treatment Stop: 05/01/21 21:29 Miscellaneous Information (Pharmacy Glycemic Mgmt Consult) 1 ea N/A UD PRN PRN Reason: Consult Stop: 05/01/21 21:14 Pantoprazole Sodium (Pantoprazole 40 Mg Tab) 40 mg PO BID [facility] Stop: 05/01/21 20:59 Last Admin: 04/06/21 08:46 Dose: 40 mg Documented by: Sodium Chloride (Sodium Chloride 0.65% Na Soln 45 Ml ([place])) 1 - 2 sprays NA PRN PRN PRN Reason: Nasal Dryness/Congestion Stop: 05/01/21 20:40 Venlafaxine HCl (Venlafaxine Hcl Xr 150 Mg Capxr) 150 mg PO QAM [facility] Stop: 05/05/21 08:59 Last Admin: 04/06/21 08:44 Dose: 150 mg Documented by: Mental Health & Subst Abuse Tx Psychiatrist Name of Psychiatrist: Christina Roberts Psychiatrist's Time of Appointment with Psychiatrist: Will follow up with you to schedule Psychiatric Appointment Comment: [address] [facility] Therapist Name of Therapist: None - being set up with Psychiatric Rehab Crankshaft Straightener Name of Crankshaft Straightener: MACEY Nicole Phone Number for Crankshaft Straightener: [phone] Date of Appointment with Crankshaft Straightener: 04/10/21 Time of Appointment with Crankshaft Straightener: 11:30 a.m. Case Management Appointment Comment: Will follow up with you Post Discharge Appointments Primary Care Physician Name Of Family Doctor: Caroline Aguilera - Dr. Glen Diaz Primary Care Date of Appointment with PCP: 04/14/21 Time of Appointment with PCP: 11:00 a.m. Provider Appointment Comment: Wade Mathis Contact Information Discharge Discharge Address: [address] [place] [address] [place] [address] (1) Major depressive disorder with current active episode Major depression recurrence: unspecified whether recurrent Major depression episode severity: severe Psychotic features: without psychotic features Qualified Code(s): F32.2 - Major depressive disorder, single episode, severe without psychotic features
[2021-04-06] MEDS: amLODIPine BESYLATE 5 MG TAB PO SCH (20:51)
[2021-04-06] MEDS: ATORVASTATIN 40 MG TAB PO SCH (20:51)
[2021-04-06] MEDS: INSULIN GLARGINE SOLOSTAR 100 UNITS/ML 3 ML PEN SC SCH (20:53)
[2021-04-07] MEDS: LEVOTHYROXINE SODIUM 175 MCG TABLET PO SCH (08:14)
[2021-04-07] MEDS: INSULIN ASPART 100 UNITS/ML 3 ML PEN SC SCH (08:58)
[2021-04-07] MEDS: ASPIRIN 81 MG ECTAB PO SCH (08:59)
[2021-04-07] MEDS: GABAPENTIN 100 MG CAP PO SCH (09:00)
[2021-04-07] MEDS: metFORMIN HCL 500 MG TAB PO SCH (09:00)
[2021-04-07] MEDS: VENLAFAXINE HCL XR 150 MG CAPXR PO SCH (09:00)
[2021-04-07] MEDS: PANTOprazole 40 MG TAB PO SCH (09:00)
[2021-04-07] MEDS: clonazePAM 0.25 MG TAB PO SCH (09:01)
--- NOTE | 2021-04-07 10:06 | Discharge Summary ---
Date of Service April 07, 2021 History of Present Illness Patient was admitted earlier this month for depressive symptoms, increased anxiety, and poor self-care following the of her partner of 7 years in January. This triggered past feelings of loss (ex. 10 years ago, father reportedly in her arms when she was 6 yo) and separation anxiety. She has always been afraid of the dark and she slept holding hands with her boyfriend. Following discharge she lived with her daughter and her family until the past 3 days. Daughter left a petitioning statement on the chart that mother was not taking her medications or managing her diabetes well. Ms. Resendez was in contact with [facility] PCP office where she was noted to have lost weight since last contact, "not that that's a problem" and was directed to the ED for assessment following phone consultation by covering provider with psychiatry. She reports constant tearfulness, hopelessness and loss of interest in things but denies SI. She reports not wanting to be a burden for her daughter as Juany took care of her own mother who had medical issues and "I said I would never do that to my kids." Physical Exam Psychiatric Orientation: alert and cooperative Apperance: appropriately dressed and + disheveled Eye Contact: + fair eye contact Motor Behavior: no abnormal motor movements Speech: normal rate/rhythm/volume of speech Affect: euthymic affect Mood: no depressed mood and no anxious mood Thought Process: linear/logical thought process Thought Content: reality based without delusions Suicidal Thoughts: denies suicidal thoughts Homicidal Thoughts: denies homicidal thoughts Hallucinations: no auditory hallucinations and no visual hallucinations Cognition: attention grossly intact Estimated Intelligence: consistent with education level Insight: + fair insight Judgement: + fair judgement Vital Signs (Past 24 Hours) Last Vital Signs Temp 36.8 C 04/07/21 09:47 Pulse 107 H 04/07/21 09:47 Resp 16 04/07/21 09:47 BP 102/69 04/07/21 09:47 Pulse Ox 98 04/07/21 09:47 Principal Diagnosis major depressive disorder Psychiatric Data See daily stay summary. In short, safety was maintained, and the patient was cooperative with care. Medication changes included uptitration of venlafaxine and they tolerated this well. A family session was held and safety plan was completed prior to discharge. Day of Discharge Assessment Today the patient voices readiness for discharge. They note improvement in mood and deny thoughts to harm self or others. Thoughts remain organized and they are improved from admission. There is no evidence of psychosis. They agree to take medications as prescribed and keep follow-up appointments. They are stable for discharge to outpatient level of care. Transition of Care Transition Of Care Record: was reviewed with the patient Advance Directives Advance Directives Information Provided: Yes Advance Directives: No Mental Health Advance Directive: No Advance Directives on File: No Living Will: No Power of Stone Grader: Yes (Pt. "thinks daughter Jessica Dempsey is") Power of Stone Grader Name: Jessica Dempsey Needs confirmed Advance Directives Reason:: Declines as Mental Health Visit. Risk Factors Assessment Male: No : Yes Do You Have Access To A Gun?: No Health Problems: Yes Mental Health Diagnoses: Yes Substance Use Disorders: No Previous Attempt: No Previous Psychiatric Hospitalization: Yes Protective Factors Assessment : No Employed: No Supportive Family: Yes Tobacco Cessation at Discharge Tobacco Cessation Medication Prescribed at Discharge: Not Applicable/Non-Smoker Total Time Total Time Spent: Greater Than 30 Minutes Total Time Includes: Examination of the patient, Discharge Planning and Medication Reconciliation Discharge Data Lab Results 04/01/21 04/01/21 04/01/21 17:31 17:31 17:31 WBC 9.27 RBC 4.78 Hgb 13.8 Hct 41.9 MCV 87.7 MCH 28.9 MCHC 32.9 RDW Std Deviation 43.5 RDW Coeff of Daphney 13.5 Plt Count 317 MPV 9.8 Immature Gran % (Auto) 0.1 Neut % (Auto) 57.5 Lymph % (Auto) 31.4 [place] % (Auto) 8.3 Eos % (Auto) 2.4 Baso % (Auto) 0.3 Neut # (Auto) 5.33 Lymph # (Auto) 2.91 [place] # (Auto) 0.77 H Eos # (Auto) 0.22 Baso # (Auto) 0.03 Immature Gran # (Auto) 0.01 Sodium 136 Potassium 4.2 Chloride 103 Carbon Dioxide 29 Anion Gap 4.0 BUN 12 Creatinine 0.76 Est Cr Clr Drug Dosing 92.2 Est GFR ( Amer) 100.2 Est GFR (Non-Af Amer) 86.5 BUN/Creatinine Ratio 15.5 Glucose 227 H POC Glucose Calcium 9.0 Total Bilirubin 0.9 AST 21 ALT 31 Alkaline Phosphatase 115 Total Protein 7.9 Albumin 3.6 Globulin 4.3 H Albumin/Globulin Ratio 0.8 L TSH 0.027 L Free T4 1.99 H Urine Color Urine Appearance Urine pH Ur Specific [place] Urine Protein Urine Glucose (UA) Urine Ketones Urine Blood Urine Nitrite Urine Bilirubin Urine Urobilinogen Ur Leukocyte Esterase Urine WBC (Auto) Urine RBC (Auto) U Hyaline Cast (Auto) U Epithel Cells (Auto) Urine Bacteria (Auto) Salicylates < 1.7 L Urine Opiates Screen Ur Methadone, Qual Acetaminophen < 2 L Urine Barbiturates Ur Phencyclidine (PCP) U Amphetamin/Meth Scrn MDMA (Ecstasy) Screen U Benzodiazepines Scrn Ur Cocaine Metabolite U Marijuana (THC) Screen Ethyl Alcohol mg/dL COVID-19 Eval Order SARS-CoV-2 (PCR) 04/01/21 04/01/21 04/01/21 17:31 17:57 17:57 WBC RBC Hgb Hct MCV MCH MCHC RDW Std Deviation RDW Coeff of Daphney Plt Count MPV Immature Gran % (Auto) Neut % (Auto) Lymph % (Auto) [place] % (Auto) Eos % (Auto) Baso % (Auto) Neut # (Auto) Lymph # (Auto) [place] # (Auto) Eos # (Auto) Baso # (Auto) Immature Gran # (Auto) Sodium Potassium Chloride Carbon Dioxide Anion Gap BUN Creatinine Est Cr Clr Drug Dosing Est GFR ( Amer) Est GFR (Non-Af Amer) BUN/Creatinine Ratio Glucose POC Glucose Calcium Total Bilirubin AST ALT Alkaline Phosphatase Total Protein Albumin Globulin Albumin/Globulin Ratio TSH Free T4 Urine Color Urine Appearance Urine pH Ur Specific [place] Urine Protein Urine Glucose (UA) Urine Ketones Urine Blood Urine Nitrite Urine Bilirubin Urine Urobilinogen Ur Leukocyte Esterase Urine WBC (Auto) Urine RBC (Auto) U Hyaline Cast (Auto) U Epithel Cells (Auto) Urine Bacteria (Auto) Salicylates Urine Opiates Screen Ur Methadone, Qual Acetaminophen Urine Barbiturates Ur Phencyclidine (PCP) U Amphetamin/Meth Scrn MDMA (Ecstasy) Screen U Benzodiazepines Scrn Ur Cocaine Metabolite U Marijuana (THC) Screen Ethyl Alcohol mg/dL < 3.0 COVID-19 Eval Order Covid19 at [facility] SARS-CoV-2 (PCR) NEGATIVE 04/01/21 04/01/21 04/01/21 18:00 18:00 22:07 WBC RBC Hgb Hct MCV MCH MCHC RDW Std Deviation RDW Coeff of Daphney Plt Count MPV Immature Gran % (Auto) Neut % (Auto) Lymph % (Auto) [place] % (Auto) Eos % (Auto) Baso % (Auto) Neut # (Auto) Lymph # (Auto) [place] # (Auto) Eos # (Auto) Baso # (Auto) Immature Gran # (Auto) Sodium Potassium Chloride Carbon Dioxide Anion Gap BUN Creatinine Est Cr Clr Drug Dosing Est GFR ( Amer) Est GFR (Non-Af Amer) BUN/Creatinine Ratio Glucose POC Glucose 187 H Calcium Total Bilirubin AST ALT Alkaline Phosphatase Total Protein Albumin Globulin Albumin/Globulin Ratio TSH Free T4 Urine Color Dark Yellow Urine Appearance Clear Urine pH 5.0 Ur Specific [place] 1.021 Urine Protein Negative Urine Glucose (UA) Trace H Urine Ketones Trace H Urine Blood Negative Urine Nitrite Negative Urine Bilirubin Negative Urine Urobilinogen Negative Ur Leukocyte Esterase 1+ H Urine WBC (Auto) 1-5 Urine RBC (Auto) 0-4 U Hyaline Cast (Auto) 5-10 H U Epithel Cells (Auto) >30 H Urine Bacteria (Auto) Negative Salicylates Urine Opiates Screen Neg Ur Methadone, Qual Neg Acetaminophen Urine Barbiturates Neg Ur Phencyclidine (PCP) Neg U Amphetamin/Meth Scrn Neg MDMA (Ecstasy) Screen Neg U Benzodiazepines Scrn Neg Ur Cocaine Metabolite Neg U Marijuana (THC) Screen Neg Ethyl Alcohol mg/dL COVID-19 Eval Order SARS-CoV-2 (PCR) 04/02/21 04/02/21 04/02/21 07:44 12:12 17:10 WBC RBC Hgb Hct MCV MCH MCHC RDW Std Deviation RDW Coeff of Daphney Plt Count MPV Immature Gran % (Auto) Neut % (Auto) Lymph % (Auto) [place] % (Auto) Eos % (Auto) Baso % (Auto) Neut # (Auto) Lymph # (Auto) [place] # (Auto) Eos # (Auto) Baso # (Auto) Immature Gran # (Auto) Sodium Potassium Chloride Carbon Dioxide Anion Gap BUN Creatinine Est Cr Clr Drug Dosing Est GFR ( Amer) Est GFR (Non-Af Amer) BUN/Creatinine Ratio Glucose POC Glucose 195 H 136 H 128 H Calcium Total Bilirubin AST ALT Alkaline Phosphatase Total Protein Albumin Globulin Albumin/Globulin Ratio TSH Free T4 Urine Color Urine Appearance Urine pH Ur Specific [place] Urine Protein Urine Glucose (UA) Urine Ketones Urine Blood Urine Nitrite Urine Bilirubin Urine Urobilinogen Ur Leukocyte Esterase Urine WBC (Auto) Urine RBC (Auto) U Hyaline Cast (Auto) U Epithel Cells (Auto) Urine Bacteria (Auto) Salicylates Urine Opiates Screen Ur Methadone, Qual Acetaminophen Urine Barbiturates Ur Phencyclidine (PCP) U Amphetamin/Meth Scrn MDMA (Ecstasy) Screen U Benzodiazepines Scrn Ur Cocaine Metabolite U Marijuana (THC) Screen Ethyl Alcohol mg/dL COVID-19 Eval Order SARS-CoV-2 (PCR) 04/02/21 04/03/21 04/03/21 20:40 07:28 12:11 WBC RBC Hgb Hct MCV MCH MCHC RDW Std Deviation RDW Coeff of Daphney Plt Count MPV Immature Gran % (Auto) Neut % (Auto) Lymph % (Auto) [place] % (Auto) Eos % (Auto) Baso % (Auto) Neut # (Auto) Lymph # (Auto) [place] # (Auto) Eos # (Auto) Baso # (Auto) Immature Gran # (Auto) Sodium Potassium Chloride Carbon Dioxide Anion Gap BUN Creatinine Est Cr Clr Drug Dosing Est GFR ( Amer) Est GFR (Non-Af Amer) BUN/Creatinine Ratio Glucose POC Glucose 142 H 130 H 164 H Calcium Total Bilirubin AST ALT Alkaline Phosphatase Total Protein Albumin Globulin Albumin/Globulin Ratio TSH Free T4 Urine Color Urine Appearance Urine pH Ur Specific [place] Urine Protein Urine Glucose (UA) Urine Ketones Urine Blood Urine Nitrite Urine Bilirubin Urine Urobilinogen Ur Leukocyte Esterase Urine WBC (Auto) Urine RBC (Auto) U Hyaline Cast (Auto) U Epithel Cells (Auto) Urine Bacteria (Auto) Salicylates Urine Opiates Screen Ur Methadone, Qual Acetaminophen Urine Barbiturates Ur Phencyclidine (PCP) U Amphetamin/Meth Scrn MDMA (Ecstasy) Screen U Benzodiazepines Scrn Ur Cocaine Metabolite U Marijuana (THC) Screen Ethyl Alcohol mg/dL COVID-19 Eval Order SARS-CoV-2 (PCR) 04/03/21 04/03/21 04/04/21 17:10 20:58 07:45 WBC RBC Hgb Hct MCV MCH MCHC RDW Std Deviation RDW Coeff of Daphney Plt Count MPV Immature Gran % (Auto) Neut % (Auto) Lymph % (Auto) [place] % (Auto) Eos % (Auto) Baso % (Auto) Neut # (Auto) Lymph # (Auto) [place] # (Auto) Eos # (Auto) Baso # (Auto) Immature Gran # (Auto) Sodium Potassium Chloride Carbon Dioxide Anion Gap BUN Creatinine Est Cr Clr Drug Dosing Est GFR ( Amer) Est GFR (Non-Af Amer) BUN/Creatinine Ratio Glucose POC Glucose 160 H 220 H 154 H Calcium Total Bilirubin AST ALT Alkaline Phosphatase Total Protein Albumin Globulin Albumin/Globulin Ratio TSH Free T4 Urine Color Urine Appearance Urine pH Ur Specific [place] Urine Protein Urine Glucose (UA) Urine Ketones Urine Blood Urine Nitrite Urine Bilirubin Urine Urobilinogen Ur Leukocyte Esterase Urine WBC (Auto) Urine RBC (Auto) U Hyaline Cast (Auto) U Epithel Cells (Auto) Urine Bacteria (Auto) Salicylates Urine Opiates Screen Ur Methadone, Qual Acetaminophen Urine Barbiturates Ur Phencyclidine (PCP) U Amphetamin/Meth Scrn MDMA (Ecstasy) Screen U Benzodiazepines Scrn Ur Cocaine Metabolite U Marijuana (THC) Screen Ethyl Alcohol mg/dL COVID-19 Eval Order SARS-CoV-2 (PCR) 04/04/21 04/04/21 04/04/21 12:27 17:11 19:45 WBC RBC Hgb Hct MCV MCH MCHC RDW Std Deviation RDW Coeff of Daphney Plt Count MPV Immature Gran % (Auto) Neut % (Auto) Lymph % (Auto) [place] % (Auto) Eos % (Auto) Baso % (Auto) Neut # (Auto) Lymph # (Auto) [place] # (Auto) Eos # (Auto) Baso # (Auto) Immature Gran # (Auto) Sodium Potassium Chloride Carbon Dioxide Anion Gap BUN Creatinine Est Cr Clr Drug Dosing Est GFR ( Amer) Est GFR (Non-Af Amer) BUN/Creatinine Ratio Glucose POC Glucose 189 H 97 156 H Calcium Total Bilirubin AST ALT Alkaline Phosphatase Total Protein Albumin Globulin Albumin/Globulin Ratio TSH Free T4 Urine Color Urine Appearance Urine pH Ur Specific [place] Urine Protein Urine Glucose (UA) Urine Ketones Urine Blood Urine Nitrite Urine Bilirubin Urine Urobilinogen Ur Leukocyte Esterase Urine WBC (Auto) Urine RBC (Auto) U Hyaline Cast (Auto) U Epithel Cells (Auto) Urine Bacteria (Auto) Salicylates Urine Opiates Screen Ur Methadone, Qual Acetaminophen Urine Barbiturates Ur Phencyclidine (PCP) U Amphetamin/Meth Scrn MDMA (Ecstasy) Screen U Benzodiazepines Scrn Ur Cocaine Metabolite U Marijuana (THC) Screen Ethyl Alcohol mg/dL COVID-19 Eval Order SARS-CoV-2 (PCR) 04/05/21 04/05/21 04/05/21 07:48 12:26 16:50 WBC RBC Hgb Hct MCV MCH MCHC RDW Std Deviation RDW Coeff of Daphney Plt Count MPV Immature Gran % (Auto) Neut % (Auto) Lymph % (Auto) [place] % (Auto) Eos % (Auto) Baso % (Auto) Neut # (Auto) Lymph # (Auto) [place] # (Auto) Eos # (Auto) Baso # (Auto) Immature Gran # (Auto) Sodium Potassium Chloride Carbon Dioxide Anion Gap BUN Creatinine Est Cr Clr Drug Dosing Est GFR ( Amer) Est GFR (Non-Af Amer) BUN/Creatinine Ratio Glucose POC Glucose 132 H 131 H 143 H Calcium Total Bilirubin AST ALT Alkaline Phosphatase Total Protein Albumin Globulin Albumin/Globulin Ratio TSH Free T4 Urine Color Urine Appearance Urine pH Ur Specific [place] Urine Protein Urine Glucose (UA) Urine Ketones Urine Blood Urine Nitrite Urine Bilirubin Urine Urobilinogen Ur Leukocyte Esterase Urine WBC (Auto) Urine RBC (Auto) U Hyaline Cast (Auto) U Epithel Cells (Auto) Urine Bacteria (Auto) Salicylates Urine Opiates Screen Ur Methadone, Qual Acetaminophen Urine Barbiturates Ur Phencyclidine (PCP) U Amphetamin/Meth Scrn MDMA (Ecstasy) Screen U Benzodiazepines Scrn Ur Cocaine Metabolite U Marijuana (THC) Screen Ethyl Alcohol mg/dL COVID-19 Eval Order SARS-CoV-2 (PCR) 04/05/21 04/06/21 04/06/21 21:00 08:26 12:14 WBC RBC Hgb Hct MCV MCH MCHC RDW Std Deviation RDW Coeff of Daphney Plt Count MPV Immature Gran % (Auto) Neut % (Auto) Lymph % (Auto) [place] % (Auto) Eos % (Auto) Baso % (Auto) Neut # (Auto) Lymph # (Auto) [place] # (Auto) Eos # (Auto) Baso # (Auto) Immature Gran # (Auto) Sodium Potassium Chloride Carbon Dioxide Anion Gap BUN Creatinine Est Cr Clr Drug Dosing Est GFR ( Amer) Est GFR (Non-Af Amer) BUN/Creatinine Ratio Glucose POC Glucose 145 H 132 H 124 H Calcium Total Bilirubin AST ALT Alkaline Phosphatase Total Protein Albumin Globulin Albumin/Globulin Ratio TSH Free T4 Urine Color Urine Appearance Urine pH Ur Specific [place] Urine Protein Urine Glucose (UA) Urine Ketones Urine Blood Urine Nitrite Urine Bilirubin Urine Urobilinogen Ur Leukocyte Esterase Urine WBC (Auto) Urine RBC (Auto) U Hyaline Cast (Auto) U Epithel Cells (Auto) Urine Bacteria (Auto) Salicylates Urine Opiates Screen Ur Methadone, Qual Acetaminophen Urine Barbiturates Ur Phencyclidine (PCP) U Amphetamin/Meth Scrn MDMA (Ecstasy) Screen U Benzodiazepines Scrn Ur Cocaine Metabolite U Marijuana (THC) Screen Ethyl Alcohol mg/dL COVID-19 Eval Order SARS-CoV-2 (PCR) 04/06/21 04/06/21 04/07/21 16:52 20:35 07:56 WBC RBC Hgb Hct MCV MCH MCHC RDW Std Deviation RDW Coeff of Daphney Plt Count MPV Immature Gran % (Auto) Neut % (Auto) Lymph % (Auto) [place] % (Auto) Eos % (Auto) Baso % (Auto) Neut # (Auto) Lymph # (Auto) [place] # (Auto) Eos # (Auto) Baso # (Auto) Immature Gran # (Auto) Sodium Potassium Chloride Carbon Dioxide Anion Gap BUN Creatinine Est Cr Clr Drug Dosing Est GFR ( Amer) Est GFR (Non-Af Amer) BUN/Creatinine Ratio Glucose POC Glucose 171 H 188 H 135 H Calcium Total Bilirubin AST ALT Alkaline Phosphatase Total Protein Albumin Globulin Albumin/Globulin Ratio TSH Free T4 Urine Color Urine Appearance Urine pH Ur Specific [place] Urine Protein Urine Glucose (UA) Urine Ketones Urine Blood Urine Nitrite Urine Bilirubin Urine Urobilinogen Ur Leukocyte Esterase Urine WBC (Auto) Urine RBC (Auto) U Hyaline Cast (Auto) U Epithel Cells (Auto) Urine Bacteria (Auto) Salicylates Urine Opiates Screen Ur Methadone, Qual Acetaminophen Urine Barbiturates Ur Phencyclidine (PCP) U Amphetamin/Meth Scrn MDMA (Ecstasy) Screen U Benzodiazepines Scrn Ur Cocaine Metabolite U Marijuana (THC) Screen Ethyl Alcohol mg/dL COVID-19 Eval Order SARS-CoV-2 (PCR) Hospital Course (1) Major depressive disorder with current active episode: 04/06/2021-- Continue on current dose of venlafaxine. 04/04/21--titrate Effexor XR to 112.5 mg today and 150 mg po qam starting tomorr ow. Requesting prn Vistaril 50 mg hs prn for discharge as sleep issues are mainly at home. D/C MNPR. 04/03/21--reassured patient that a prn for sleep will be provided upon discharge. 04/02/21--The patient was admitted to the [facility] mental health unit) on q15 min checks (behavioral with suicide precautions) for safety. The patient will participate in group, recreational, and milieu therapies and will be offered additional individual and family sessions as clinically appropriate. Agreed to titration of Effexor XR to 75 mg daily with target dose of 150 mg daily. (2) Postsurgical hypothyroidism: 04/02/21 current labs show mild overcorrection which may actually help to augment antidepressant, defer to PCP for recheck as outpatient. (3) Diabetes mellitus, type II: 04/02/21 no insulin pump while on unit, glycemic pharmacy consult. Mental Health & Subst Abuse Tx Psychiatrist Name of Psychiatrist: Christina Roberts Psychiatrist's Time of Appointment with Psychiatrist: Will follow up with you to schedule Psychiatric App[facility]ment [facility] [id number] [facility] Release of Information: Obtained, Reviewed and Signed Therapist Name of Therapist: None - being set up with Psychiatric Rehab Security Operations Specialist Name of Security Operations Specialist: MACEY Nicole Phone Number for Security Operations Specialist: [phone] Date of Appointment with Security Operations Specialist: 04/10/21 Time of Appointment with Security Operations Specialist: 11:30 a.m. Case Management Appointment Comment: Will follow up with you Security Operations Specialist Release of Information: Obtained, Reviewed and Signed Post Discharge Appointments Primary Care Physician Name Of Family Doctor: Caroline Diaz [facility] Date of Appointment with PCP: 04/14/21 Time of Appointment with PCP: 11:00 a.m. Provider Appointment Comment: [address] [facility] Release of Information: Obtained, Reviewed and Signed Smoking Cessation Counseling Tobacco Cessation Medication Prescribed at Discharge: Not Applicable/Non-Smoker Contact Information Discharge Discharge Address: [place] [address] Discharge Plan Discharge Items Patient Disposition: Home - Self-Care Reason For Visit: MDD Discharge Diagnosis: Major depressive disorder Activity: Resume your previous activity Non-emergency contact: Primary Care Provider, Psychiatrist and Therapist Call non-emergency contact if: you have any medication questions Follow-up/Referrals: Glen Diaz DO [Primary Care Provider] - Diet: Regular Addtl Attending Provider Instructions: SPECIAL CARE INSTRUCTIONS: 1. Follow through with your scheduled aftercare appointments. If unable to keep an appointment, please call to reschedule. 2. Take your medication only as prescribed. Medication should not be changed or stopped without the approval of your doctor. In the event of worsening symptoms or concerns about side effects, contact your doctor immediately. 3. Utilize new healthy coping skills, anger management skills, and stress management skills learned during your hospitalization. Journal feelings and process them with a support person. Identify stressors or situations that may result in relapse, deterioration or inappropriate behaviors and develop a plan to deal with those issues. 4. If your coping skills are ineffective and you are in crisis, contact your outpatient providers for direction. If unable to reach your providers, please call the [facility] CRISIS LINE AT , go to the [facility] walk-in center at [address], [place], or go to the closest Emergency Room. 5. Avoid alcohol and un-prescribed drugs. 6. You have been provided with the Mental Health Advance Directives Pamphlet for your review. AFTERCARE APPOINTMENTS: * Please call your insurance company prior to your scheduled appointment to confirm your aftercare providers are covered. Take your insurance information to your appointments. WHO TO CALL AND WHEN: Medical Emergencies: For questions or emergencies related to your hospital stay, please contact the Inpatient Behavioral Health Unit at [phone]. A rn clinician is on-call 31/05 for the Behavioral Health Unit for emergencies At any time you feel your situation is an emergency, you may also call 911 immediately. Pending Studies at Discharge: No Stand-Alone Forms: My [employer], Smoking Cessation Medications and DC Order Prescriptions: New venlafaxine 150 mg Capsule,Extended Release 24hr 150 mg PO QAM Qty: 30 RF: 0 Continued Humulin 70/30 U-100 Insulin 100 unit/mL (70-30) Suspension See Rx Instructions .ROUTE .COMPLEX RF: 0 amlodipine 2.5 mg Tablet 2.5 mg PO HS RF: 0 aspirin 81 mg Tablet,Delayed Release (Dr/Ec) 81 mg PO QAM RF: 0 atorvastatin 80 mg Tablet 80 mg PO QPM RF: 0 omeprazole 20 mg Tablet,Delayed Release (Dr/Ec) 20 mg PO BID RF: 0 levothyroxine 175 mcg Tablet 175 mcg PO HS RF: 0 metformin 1,000 mg Tablet Extended Release 24hr 1,000 mg PO BID RF: 0 gabapentin 100 mg Capsule 100 mg PO TID RF: 0 clonazepam 0.5 mg Tablet 0.25 mg PO BID Qty: 60 RF: 0 Discontinued venlafaxine 37.5 mg Capsule,Extended Release 24hr 37.5 mg PO QAM Qty: 30 RF: 0 Discharge Orders: Discharge Order (Routine); Ordered 04/07/21 Ordered By: Migel Dean Admission Data Admit Date/Time: 04/01/21 20:41 Attending Provider: Migel Dean Admit Provider: Megha Cooley Primary Care Provider: Glen Diaz Other Interventions: Discharge Summary Assessment (RN) Last Done: 04/07/21 09:47 PSY Interdisciplinary Discharge Planning Last Done: 04/07/21 09:17 Coding Level of Care Code 57352 D/C day mgmt > 30 min Diagnoses Major depressive disorder with current active episode F32.2 Major depression recurrence: unspecified whether recurrent Major depression episode severity: severe Psychotic features: without psychotic features Postsurgical hypothyroidism E89.0 Diabetes mellitus, type II E11.9
== END 2021-04-07 11:05 | disposition home or self-care (01) | DRG 885 ==
LOC: ED 17:04 → 3S 20:41 → SUATTDRO 20:41 → 3S 20:57

== ENCOUNTER 2021-05-24 10:38 | Inpatient (IN) ==
[2021-05-24] MEDS ORDERED: CEFEPIME 2,000 MG/20 ML VIAL IV STA (11:23)
[2021-05-24] MEDS ORDERED: VANCOMYCIN HCL 2,250 MG in SODIUM CHLORIDE 0.9% 500 ML IV ONE (11:23)
[2021-05-24] MEDS ORDERED: VANCOMYCIN CONSULT ACTIVE PRN ×2 (11:23→18:03)
[2021-05-24] MEDS ORDERED: SODIUM CHLORIDE 0.9% 1000ML 1,000 ML IV SCH ×2 (11:30→18:03)
--- NOTE | 2021-05-24 11:45 | XRay Report ---
XR chest 1V portable HISTORY: SEPSIS COMPARISON: Chest 07/28/2019. FINDINGS: There are low lung volumes. No pneumothorax. No pleural effusions. No focal lung consolidat ions to suggest pneumonia. No evidence for pulmonary edema. Cervical spinal fusion hardware is again noted. The cardiac silhouette remains borderline enlarged. There are surgical clips within the left a xilla. Stable soft tissue prominence within the right paratracheal location. IMPRESSION: No significant change compared to the prior study. No acute process. ACT 112: Negative or not required by law. Electronically signed by: Elgin Mccoy M.D. 05/24/2021 11:43 AM
--- NOTE | 2021-05-24 11:47 | Emergency Department Note ---
History of Present Illness General Chief complaint: Infection Stated complaint: INFECTION Time Seen by Provider: 05/24/21 11:22 History of Present Illness Maximum Pain Intensity: 9 56-year-old female presents to the ED with a chief complaint of osteomyelitis of her left great toe. The patient states that her toenail ripped off about a month ago when she had fallen. She subsequently developed an infection that was treated with several courses of antibiotics but did not get any better. The patient saw her PCP today and had an x-ray that shows osteomyelitis of the left great toe. She was sent here for admission. Denies any other complaints at this time. No fevers. No nausea vomiting. The patient CBC was normal. Chest x-ray did not show acute process. Lactic acid was 3.4. Glucose is 292. EKG shows a normal sinus rhythm. The patient will be seen by the hospitalist for further inpatient evaluation and care. Home Medications Medication Instructions Recorded Confirmed Type aspirin 81 mg tablet,delayed 81 mg PO QAM 02/18/19 05/24/21 History release atorvastatin 80 mg tablet 80 mg PO QPM 02/18/19 05/24/21 History levothyroxine 175 mcg tablet 175 mcg PO HS 02/18/19 05/24/21 History metformin 1,000 mg tablet,extended 1,000 mg PO BID 02/18/19 05/24/21 History release 24hr omeprazole 20 mg tablet,delayed 20 mg PO BID 02/18/19 05/24/21 History release amlodipine 2.5 mg tablet 2.5 mg PO HS 03/27/19 05/24/21 History insulin human U-100 NPH-regulr See Rx Instructions .ROUTE .COMPLEX 03/27/19 05/24/21 History 70-30 mix 100 unit/mL subcutaneous susp (Humulin 70/30 U-100 Insulin) gabapentin 100 mg capsule 100 mg PO TID 07/21/19 05/24/21 History clonazepam 0.5 mg tablet 0.25 mg PO BID #60 tab 03/19/21 05/24/21 Rx venlafaxine 150 mg 150 mg PO QAM #30 cap 04/07/21 05/24/21 Rx capsule,extended release 24 hr Allergies Allergy/AdvReac Type Severity Reaction Status Date / Time adhesive tape Allergy Mild SKIN Verified 05/24/21 12:47 IRRITATION Past Med/Surg History Medical History Anxiety Benign neoplasm of vulva of clitoris Depression Diabetes mellitus, type II History of thyroid cancer Hypertension Myocardial Infarction 12 YEARS AGO (FOLLOWED BY DR. DODSON) VERBALIZED NO HEART CATH DONE Peripheral neuropathy Restless leg syndrome Schwannoma REMOVED BY DR. GROSSMAN MARCH 2018 Stroke 7 YEARS AGO (LEFT SIDE WEAKNESS/LEFT EYE DROOPING) Suicidal ideation Tumor LEFT FEMUR (BENIGN) 2 TUMORS REMOVED Vulvitis Surgical History Family history of reaction to anesthesia BROTHER-NAUSEA H/O blepharoplasty RT/LEFT History of anesthesia reaction SLOW TO WAKE UP History of cholecystectomy History of colonoscopy History of esophagogastroduodenoscopy (EGD) History of surgery robot-assist left thorascopic resection of schwannoma from left upper mediastinum. 03/16/2018. SANG. A line. No issues. 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 Beliefs That Will Affect Care: None marital status: Current Living Situation: Significant Other Feels Safe at Home: Yes Assistive Devices: Denture - Upper, Denture - Lower and Glasses Review of Systems As above otherwise negative for 10 systems Physical Exam Vital Signs Vital Signs - 24 hr 05/24/21 10:48 05/24/21 11:40 05/24/21 11:45 Temperature 37.1 C Temperature Source Temporal Artery Scan Pulse Rate 97 H 85 82 Pulse Rate from SpO2 Sensor Respiratory Rate 18 17 20 Blood Pressure 95/61 L 125/76 Blood Pressure Mean 72 92 Pulse Oximetry 99 98 98 Oxygen Delivery Method Room Air Sepsis Recent Fever Within 48 Hours No Sepsis New/Unexplained Change in Mental Status No Sepsis Action Taken by Nursing No Action Required 05/24/21 12:00 05/24/21 12:30 05/24/21 13:00 Temperature Temperature Source Pulse Rate 93 H 84 81 Pulse Rate from SpO2 Sensor 86 83 82 Respiratory Rate 23 22 17 Blood Pressure 122/73 118/67 128/69 Blood Pressure Mean 89 84 88 Pulse Oximetry 97 99 98 Oxygen Delivery Method Sepsis Recent Fever Within 48 Hours Sepsis New/Unexplained Change in Mental Status Sepsis Action Taken by Nursing 05/24/21 13:30 05/24/21 14:00 Temperature Temperature Source Pulse Rate 83 82 Pulse Rate from SpO2 Sensor 84 82 Respiratory Rate 18 15 Blood Pressure 139/87 123/79 Blood Pressure Mean 104 93 Pulse Oximetry 98 96 Oxygen Delivery Method Sepsis Recent Fever Within 48 Hours Sepsis New/Unexplained Change in Mental Status Sepsis Action Taken by Nursing CONSTITUTIONAL/VITAL SIGNS: Reviewed / noted above. GENERAL: Non-toxic in appearance. INTEGUMENTARY: Warm, dry, and [place]. HEAD: Normocephalic. EYES: without scleral icterus or trauma. ENT/OROPHARYNX: clear and moist. LYMPHADENOPATHY/NECK: Is supple without lymphadenopathy or meningismus. RESPIRATORY: Lungs clear and equal. CARDIOVASCULAR: Regular rate and rhythm. GI/ABDOMEN: Soft and nontender. No organomegaly or pulsatile mass. No rebound or guarding. Normal bowel sounds. EXTREMITIES: Warm and well perfused. Left great toe has an ulceration and some foul-smelling discharge. BACK: No CVA tenderness. NEUROLOGICAL: Intact without focal deficits. PSYCHIATRIC: normal affect. MUSCULOSKELETAL: Normally developed with good muscle tone. TRIAGE NURSING DOCUMENTATION REVIEWED. Course Administered Medications Discontinued Medications Vancomycin HCl 2,250 mg/ (Sodium Chloride) 545 mls @ 200 mls/hr IV NOW ONE Stop: 05/24/21 14:06 Last Admin: 05/24/21 11:59 Dose: 200 mls/hr Documented by: [id number] Sodium Chloride (Nss 1000ml) 1,000 mls @ 999 mls/hr IV .Q1H1M WILLIAM Stop: 05/24/21 12:30 Last Infusion: 05/24/21 13:32 Dose: 0 mls/hr Documented by: [id number] Admin: 05/24/21 11:56 Dose: 999 mls/hr Documented by: [id number] Cefepime HCl (Maxipime) 2,000 mg in 20 mls @ 5 mls/min IV NOW STA; Protocol Stop: 05/24/21 11:26 Last Admin: 05/24/21 11:56 Dose: 5 mls/min Documented by: [id number] Medical Decision Making Differential Diagnosis Cellulitis, abscess, MRSA infection, DVT, necrotizing fasciitis, dermatitis, drug eruption, allergic reaction, as well as other pathologies. Medical Records Attestation: I reviewed the patient's medical records. Home Medications Current Medication List: was personally reviewed by me Laboratory Data Attestation: I reviewed the patient's lab results. Result diagrams: 05/24/21 11:47 05/24/21 11:47 Lab Results 05/24/21 05/24/21 05/24/21 Range/Units 11:47 11:47 11:47 WBC 8.97 (4.8-10.8) K/uL RBC 4.38 (4.2-5.4) M/uL Hgb 12.7 (12.0-16.0) g/dL Hct 38.6 (37-47) % MCV 88.1 (80-100) fL MCH 29.0 (25-34) pg MCHC 32.9 (32-36) g/dL RDW Std Deviation 44.4 (36.4-46.3) fL RDW Coeff of [place] 13.7 (11.5-14.5) % Plt Count 328 (130-400) K/uL MPV 9.7 (7.4-10.4) fL Immature Gran % (Auto) 0.4 % Neut % (Auto) 53.9 % Lymph % (Auto) 33.8 % [place] % (Auto) 7.8 % Eos % (Auto) 3.5 % Baso % (Auto) 0.6 % Neut # (Auto) 4.84 (1.4-6.5) K/uL Lymph # (Auto) 3.03 (1.2-3.4) K/uL [place] # (Auto) 0.70 H (0.11-0.59) K/uL Eos # (Auto) 0.31 (0-0.5) K/uL Baso # (Auto) 0.05 (0-0.2) K/uL Immature Gran # (Auto) 0.04 H (0.00-0.02) K/uL Sodium 136 (136-145) mmol/L Potassium 4.6 (3.5-5.1) mmol/L Chloride 102 (98-107) mmol/L Carbon Dioxide 28 (21-32) mmol/L Anion Gap 6.0 (3-11) BUN 17 (7-18) mg/dl Creatinine 1.11 (0.6-1.2) mg/dl Est Cr Clr Drug Dosing 63.9 ml/min Est GFR ( Amer) 63.4 ml/min Est GFR (Non-Af Amer) 54.7 ml/min BUN/Creatinine Ratio 15.1 (10-20) Glucose 292 H (70-99) mg/dl Lactate 3.4 H* (0.4-2.0) mmol/L Calcium 8.7 (8.5-10.1) mg/dl Total Bilirubin 0.4 (0.2-1) mg/dl AST 16 (15-37) U/L ALT 28 (12-78) U/L Alkaline Phosphatase 98 (45-117) U/L Total Protein 8.0 (6.4-8.2) gm/dl Albumin 3.6 (3.4-5.0) gm/dl Globulin 4.4 H (2.5-4.0) gm/dl Albumin/Globulin Ratio 0.8 L (0.9-2) Imaging Data Radiologist's Impression: Chest X-Ray 05/24/21 11:23 XR chest 1V portable HISTORY: SEPSIS COMPARISON: Chest 07/28/2019. FINDINGS: There are low lung volumes. No pneumothorax. No pleural effusions. No focal lung consolidations to suggest pneumonia. No evidence for pulmonary edema. Cervical spinal fusion hardware is again noted. The cardiac silhouette remains borderline enlarged. There are surgical clips within the left axilla. Stable soft tissue prominence within the right paratracheal location. IMPRESSION: No significant change compared to the prior study. No acute process. ACT 112: Negative or not required by law. Electronically signed by: Elgin Mccoy M.D. 05/24/2021 11:43 AM ECG Data Additional Comments: Twelve-lead EKG: Per my interpretation there is a normal sinus rhythm at a rate of 85 with right bundle branch block. No ST elevation. No ectopy MDM Narrative Patient presents for admission for osteomyelitis. Evaluation as noted above. The patient CBC and chemistry panel was unremarkable with exception of a glucose of 292 and a lactate of 3.4. EKG showed a normal sinus rhythm. Chest x-ray was negative for acute disease. X-ray of the foot was done at the [facility] outpatient facility that showed osteomyelitis. The [facility] hospitalist was notified and they will see the patient for further inpatient evaluation and care. She was given IV empiric antibiotics in the form of vancomycin and c efepime, And some IV fluids. Impression & Plan Osteomyelitis of great toe of left foot Discharge Plan Visit Data Chief Complaint: Infection Stated Complaint: INFECTION ED Provider: Frandy Bowers Discharge Problem: Osteomyelitis of great toe of left foot Forms Stand Alone Forms: [facility] Prescriptions Prescriptions: No Action Humulin 70/30 U-100 Insulin 100 unit/mL (70-30) Suspension See Rx Instructions .ROUTE .COMPLEX RF: 0 amlodipine 2.5 mg Tablet 2.5 mg PO HS RF: 0 aspirin 81 mg Tablet,Delayed Release (Dr/Ec) 81 mg PO QAM RF: 0 atorvastatin 80 mg Tablet 80 mg PO QPM RF: 0 omeprazole 20 mg Tablet,Delayed Release (Dr/Ec) 20 mg PO BID RF: 0 levothyroxine 175 mcg Tablet 175 mcg PO HS RF: 0 metformin 1,000 mg Tablet Extended Release 24hr 1,000 mg PO BID RF: 0 gabapentin 100 mg Capsule 100 mg PO TID RF: 0 clonazepam 0.5 mg Tablet 0.25 mg PO BID Qty: 60 RF: 0 venlafaxine 150 mg Capsule,Extended Release 24hr 150 mg PO QAM Qty: 30 RF: 0 Referrals Referrals: Glen Diaz DO [Primary Care Provider] -
[2021-05-24 11:58] LABS: Basophils # (auto) 0.05 K/uL (0-0.2); Basophils % (auto) 0.6 %; Eosinophils # (auto) 0.31 K/uL (0-0.5); Eosinophils % (auto) 3.5 %; Hematocrit (blood only) 38.6 % (37-47); Hemoglobin 12.7 g/dL (12.0-16.0); Immature Granulocytes # (auto) 0.04 K/uL (0.00-0.02); Immature Granulocytes % (auto) 0.4 %; Lymphocytes # (auto) 3.03 K/uL (1.2-3.4); Lymphocytes % (auto) 33.8 %; Mean Corpuscular Hgb Conc 32.9 g/dL (32-36); Mean Corpuscular Volume 88.1 fL (80-100); Mean Platelet Volume 9.7 fL (7.4-10.4); Monocytes % (auto) 7.8 %; Neutrophils # (auto) 4.84 K/uL (1.4-6.5); Neutrophils % (auto) 53.9 %; Platelet Count 328 K/uL (130-400); RDW Coefficient of Variation 13.7 % (11.5-14.5); RDW Standard Deviation 44.4 fL (36.4-46.3); Red Blood Count 4.38 M/uL (4.2-5.4); White Blood Count 8.97 K/uL (4.8-10.8)
[2021-05-24 12:15] LABS: Albumin Level 3.6 gm/dl (3.4-5.0); BUN Creatinine Ratio 15.1 (10-20); Calcium 8.7 mg/dl (8.5-10.1); Creatinine Clr Calc Pharmacy 63.9 ml/min; Est GFR (African American) 63.4 ml/min; Est GFR (Non-African American) 54.7 ml/min; Potassium 4.6 mmol/L (3.5-5.1)
[2021-05-24 12:18] LABS: Albumin Globulin Ratio 0.8 (0.9-2); Bilirubin,Total 0.4 mg/dl (0.2-1); Globulin 4.4 gm/dl (2.5-4.0)
[2021-05-24] MEDS ORDERED: PHARMACY GLYCEMIC MGMT CONSULT STA (14:36)
[2021-05-24] MEDS ORDERED: SODIUM CHLORIDE 0.9% 1000ML 500 ML IV ONE (14:50)
[2021-05-24] MEDS ORDERED: CARBOHYDRATES FOR HYPOGLYCEMIA PO PRN ×2 (15:15→18:03)
[2021-05-24] MEDS ORDERED: GLUCOSE 40% GEL 15 GM TUBE PO PRN ×2 (15:15→18:03)
[2021-05-24] MEDS ORDERED: DEXTROSE 50% 50 ML SYRINGE IV PRN ×2 (15:15→18:03)
[2021-05-24] MEDS ORDERED: GLUCAGON FOR INJ 1 MG VIAL IM PRN (15:15)
[2021-05-24] MEDS ORDERED: GLUCOSE 10 TABS/TUBE PO PRN ×2 (15:15→18:03)
[2021-05-24] MEDS ORDERED: metroNIDAZOLE 500 MG/100 ML BAG IV STA (15:23)
[2021-05-24] MEDS ORDERED: PHARMACY GLYCEMIC MGMT CONSULT PRN (15:26)
--- NOTE | 2021-05-24 15:27 | History & Physical Report ---
Date of Service May 24, 2021 Assessment & Plan (1) Osteomyelitis of great toe of left foot: (2) Open wound of left great toe: Plan: This is a 56-year-old female who has significant past medical history of insulin-dependent T2DM, diabetic neuropathy, diabetic retinopathy, postsurgical hypothyroidism secondary to thyroid cancer, depression with anxiety, gastroparesis and other medical problems listed below who presents to ED secondary to worsening left great toe wound x1 month. She was seen and evaluated in orthopedic urgent care [facility] on 05/23. Per report imaging revealed findings consistent with left great toe osteomyelitis. She does have evidence of stage II wound with avulsed toenail and serosanguineous foul-smelling drainage. She does not meet criteria for SIRS/sepsis on admission. Admit to med telemetry Obtain MRI of left great toe Continue IV antibiotics with vancomycin, cefepime and Flagyl Consult wound care, obtain a surface wound culture Blood culture pending ESR 35, CRP 1.44 Consult orthopedics -unassigned is Mayra Offload left great toe until seen by Ortho SQ Heparin for dvt ppx PRN tylenol moderate pain/ Oxycodone 5mg IR severe pain neuropathy precautions (3) Diabetes mellitus, type II: Plan: Uncontrolled type II DM, A1c 05/23 9.3 Utilizes insulin pump, currently off pump as she states that she does not have appropriate supplies Lantus/NovoLog per protocol consult glycemic pharmacy - appreciate their management (4) CAD (coronary artery disease): Plan: chronic, stable, cont medical management. (5) Hypertension: Plan: Follows Dr. Orozco Branch vessel CAD by cardiac cath 12/2015, chronic right bundle jayesh block On ASA, statin, metoprolol as outpatient Denies chest pain or shortness of breath EKG unchanged (6) History of thyroid cancer: Plan: Status post total thyroidectomy Continue levothyroxine (7) Depression: Plan: With anxiety and acute stress reaction, recently January 2021 Continue venlafaxine and clonazepam Mood currently stable (8) DVT prophylaxis: Plan: SQ Heparin Dispo: med tele PCP: Dr. Diaz FULL CODE Pt was seen and examined in collaboration with Dr. Camargo, please see addendum History of Present Illness Chief Complaint: Left great toe wound worsening x1 month. Primary Care Provider: Glen Diaz, DO This is a 56-year-old female who has significant past medical history of insulin-dependent T2DM, diabetic neuropathy, diabetic retinopathy, postsurgical hypothyroidism secondary to thyroid cancer, depression with anxiety, gastroparesis and other medical problems listed below who presents to ED secondary to worsening left great toe wound x1 month. Of significance over a month ago patient sustained a fall when trying to get in the shower. She had her right foot off the soap dish and she is unsure what she hit her left foot off of. Subsequently her left great toenail avulsed and she has had a nonheali ng wound for the past month. Over the past 1 week it has significantly worsened. She has been on oral antibiotics as outpatient including Augmentin, doxycycline and so far 3 doses of Bactrim. She was seen and evaluated by orthopedic urgent care on 05/23 who obtained an x-ray today concerning for left great toe osteomyelitis. Her ESR and CRP at that time were 35 and 16 respectively. She was started on oral Bactrim. She does have a bloody foul- smelling drainage coming from the left foot. She overall has felt sweaty and feverish but no documented fevers. Over the past 5 months she admits to frequent falls. She states, "my legs just go out from under me." She has had no other injuries and denies any syncope, or presyncopal symptoms including lightheadedness, dizziness, chest pain, shortness of breath or nausea. She does history of neuropathy on gabapentin but does have pain on the L great toe extending to the L ankle. She further denies any recent illness, URI symptoms, chest pain, shortness of breath, nausea, vomiting, abdominal pain, change in her bowel or urinary habits. She has been taking her medications as prescribed. She lives with herself and is a recent in the past 4 months. She has been dealing with significant acute stress reaction. Her daughter has been helping her manage her medications. She is on an insulin pump but is currently off of it at the given time secondary to removing it when she was over in Ortho clinic. She states that she does not have her appropriate supplies with her. In ED patient remained hemodynamically stable. She did have an initial lactic acidosis at 3.4. After 1 L of fluid repeat was 2.8. She did receive IV vancomycin and cefepime. Lab work notable for H&H 12.7 and 38.6, RBC 3.87, platelet 328, ESR 35, BUN 17, creatinine 1.11, glucose 292, CRP and procalcitonin pending. Chest x-ray consistent with borderline enlarged cardiac silhouette but no acute abnormality. Allergies Allergy/AdvReac Type Severity Reaction Status Date / Time adhesive tape Allergy Mild SKIN Verified 05/24/21 12:47 IRRITATION Home Medications Medication Instructions Recorded Confirmed Type aspirin 81 mg tablet,delayed 81 mg PO QAM 02/18/19 05/24/21 History release levothyroxine 175 mcg tablet 175 mcg PO DAILY 02/18/19 05/24/21 History metformin 1,000 mg tablet,extended 1,000 mg PO BID 02/18/19 05/24/21 History release 24hr omeprazole 20 mg tablet,delayed 20 mg PO BID 02/18/19 05/24/21 History release amlodipine 2.5 mg tablet 2.5 mg PO HS 03/27/19 05/24/21 History insulin human U-100 NPH-regulr See Rx Instructions .ROUTE .COMPLEX 03/27/19 05/24/21 History 70-30 mix 100 unit/mL subcutaneous susp (Humulin 70/30 U-100 Insulin) gabapentin 100 mg capsule 100 mg PO TID 07/21/19 05/24/21 History clonazepam 0.5 mg tablet 0.25 mg PO BID #60 tab 03/19/21 05/24/21 Rx venlafaxine 150 mg 150 mg PO QAM #30 cap 04/07/21 05/24/21 Rx capsule,extended release 24 hr metoprolol succinate 25 mg 25 mg PO HS 05/24/21 05/24/21 History tablet,extended release 24 hr rosuvastatin 40 mg tablet 40 mg PO DAILY 05/24/21 05/24/21 History Past Med/Surg History Medical History (Updated 05/24/21 @ 15:53 by Aury Jane PA-C) Anxiety Benign neoplasm of vulva of clitoris CAD (coronary artery disease) Depression Diabetes mellitus, type II History of thyroid cancer Hypertension Myocardial Infarction 12 YEARS AGO (FOLLOWED BY DR. OROZCO) VERBALIZED NO HEART CATH DONE Peripheral neuropathy Restless leg syndrome Schwannoma REMOVED BY DR. GROSSMAN MARCH 2018 Stroke 7 YEARS AGO (LEFT SIDE WEAKNESS/LEFT EYE DROOPING) Suicidal ideation Tumor LEFT FEMUR (BENIGN) 2 TUMORS REMOVED Vulvitis Surgical History (Updated 05/24/21 @ 15:36 by Aury Jane PA-C) Family history of reaction to anesthesia BROTHER-NAUSEA H/O blepharoplasty RT/LEFT History of anesthesia reaction SLOW TO WAKE UP History of cholecystectomy History of colonoscopy History of esophagogastroduodenoscopy (EGD) History of neck surgery cervical fusion History of surgery robot-assist left thorascopic resection of schwannoma from left upper mediastinum. 03/16/2018. SANG. A line. No issues. History of thyroidectomy, total History of tonsillectomy History of tooth extraction S/P LASIK surgery of both eyes Status post hysteroscopic ablation of endometrium Family History (Updated 05/24/21 @ 15:37 by Aury Jane PA-C) Grandmother (Maternal) Family history of diabetes mellitus Mother Ovarian cancer Father Myocardial infarction Social History (Updated 05/24/21 @ 15:37 by Aury Jane PA-C) Smoking Status: Never smoker Second Hand Exposure: No; Do You Dip or Chew Tobacco: No; Hx Alcohol Use: Yes Alcohol type: wine Hx Substance Use: No Preferred Language: Yi Communication Ability: Effective 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 Driver Required: No Beliefs That Will Affect Care: None marital status: / Current Living Situation: Alone Feels Safe at Home: Yes Assistive Devices: Denture - Upper, Denture - Lower and Glasses Review of Systems Review of Systems: All systems reviewed & are unremarkable except as noted in HPI & below Physical Exam Physical Exam: Constitutional: WD/WN, female, vitals as above, NAD, sitting up in bed, pleasant, conversing easily Head: Normocephalic, Atraumatic Eyes: PERRL, conjunctivae normal, anicteric sclerae ENMT: external ear and nose normal, oropharynx normal Neck: trachea midline, no thyromegaly normal visual inspection Respiratory: normal respiratory effort, lungs clear to auscultation, no wheeze, rales, rhonchi. Normal insp/exp effort, no accessory muscle use Cardiovascular: RRR, no murmur, left pedal edema, bilateral pedal pulses +2 and equal, bilateral PT pulses +2 and equal, neurovascularly intact in bilateral lower extremities, no edema Vessels: no JVD or carotid bruit Chest: normal inspection of chest Abdomen: normal bowel sounds, soft, nontender, no hepatosplenomegaly Musculoskeletal: no cyanosis or clubbing, extremities motor strength 5/5 Skin: + Avulsed left great toenail, nail bed erythematous, soft, purulent with serosanguineous foul-smelling drainage, no rashes, warm and dry normal turgor Neurologic: PERRL, EOMI, accommodation nl, no face palsy, no dysarthria CN's II-XI intact bilaterally and moves all extremities Psychiatric: A+Ox3, euthymic affect Lymphatic: no cervical or axillary lymphadenopathy : deferred Results & Data Results & Data ([facility]) Vital Signs (Past 12 Hours) Vital Signs Temp Pulse Resp BP Pulse Ox 05/24/21 14:00 82 15 123/79 96 05/24/21 13:30 83 18 139/87 98 05/24/21 13:00 81 17 128/69 98 05/24/21 12:30 84 22 118/67 99 05/24/21 12:00 93 H 23 122/73 97 05/24/21 11:45 82 20 98 05/24/21 11:40 85 17 125/76 98 05/24/21 10:48 37.1 C 97 H 18 95/61 L 99 Laboratory Results Short CBC 05/24/21 Range/Units 11:47 WBC 8.97 (4.8-10.8) K/uL Hgb 12.7 (12.0-16.0) g/dL Hct 38.6 (37-47) % Plt Count 328 (130-400) K/uL BMP 05/24/21 11:47 Sodium 136 Potassium 4.6 Chloride 102 Carbon Dioxide 28 BUN 17 Creatinine 1.11 Glucose 292 H Calcium 8.7 Liver Function 05/24/21 Range/Units 11:47 Total Bilirubin 0.4 (0.2-1) mg/dl AST 16 (15-37) U/L ALT 28 (12-78) U/L Alkaline Phosphatase 98 (45-117) U/L Albumin 3.6 (3.4-5.0) gm/dl Diagnostic Findings Chest X-Ray 05/24/21 11:23 XR chest 1V portable HISTORY: SEPSIS COMPARISON: Chest 07/28/2019. FINDINGS: There are low lung volumes. No pneumothorax. No pleural effusions. No focal lung consolidations to suggest pneumonia. No evidence for pulmonary edema. Cervical spinal fusion hardware is again noted. The cardiac silhouette remains borderline enlarged. There are surgical clips within the left axilla. Stable soft tissue prominence within the right paratracheal location. IMPRESSION: No significant change compared to the prior study. No acute process. ACT 112: Negative or not required by law. Electronically signed by: Elgin Mccoy M.D. 05/24/2021 11:43 AM Medications Administered Medication List Insulin Aspart (Insulin Aspart 100 Units/Ml 3 Ml Pen) 0 units SC ACHS WILLIAM Stop: 06/23/21 16:29 Last Admin: 05/24/21 15:28 Dose: 7 units Documented by: [id number] Cosigned by: [id number] Discontinued Medications Vancomycin HCl 2,250 mg/ (Sodium Chloride) 545 mls @ 200 mls/hr IV NOW ONE Stop: 05/24/21 14:06 Last Infusion: 05/24/21 14:50 Dose: 0 mls/hr Documented by: [id number] Admin: 05/24/21 11:59 Dose: 200 mls/hr Documented by: [id number] Sodium Chloride (Nss 1000ml) 1,000 mls @ 999 mls/hr IV .Q1H1M WILLIAM Stop: 05/24/21 12:30 Last Infusion: 05/24/21 13:32 Dose: 0 mls/hr Documented by: [id number] Admin: 05/24/21 11:56 Dose: 999 mls/hr Documented by: [id number] Cefepime HCl (Maxipime) 2,000 mg in 20 mls @ 5 mls/min IV NOW STA; Protocol Stop: 05/24/21 11:26 Last Admin: 05/24/21 11:56 Dose: 5 mls/min Documented by: [id number] Sodium Chloride (Nss 1000ml) 500 mls @ 999 mls/hr IV .Q31M ONE Stop: 05/24/21 15:20 Last Admin: 05/24/21 15:31 Dose: 999 mls/hr Documented by: [id number] ECG Rate (beats per minute): 85 Rhythm: normal sinus Findings: + RBBB Additional Comments: inferior infarct noted on or before 08/04/19 no change from 03/11/21 COVID-19 Results Results COVID-19 Adm Lab Results: RBC 4.38 M/uL (4.2-5.4) 05/24/21 WBC 8.97 K/uL (4.8-10.8) 05/24/21 Hgb 12.7 g/dL (12.0-16.0) 05/24/21 Hct 38.6 % (37-47) 05/24/21 Plt Count 328 K/uL (130-400) 05/24/21 Neutrophils (%) (Auto) 53.9 % 05/24/21 Lymphocytes (%) (Auto) 33.8 % 05/24/21 Monocytes # (Auto) 0.70 K/uL (0.11-0.59) H 05/24/21 Eosinophils # (Auto) 0.31 K/uL (0-0.5) 05/24/21 Immature Granulocyte % (Auto) 0.4 % 05/24/21 Neutrophils # (Auto) 4.84 K/uL (1.4-6.5) 05/24/21 Lymphocytes # (Auto) 3.03 K/uL (1.2-3.4) 05/24/21 Monocytes # (Auto) 0.70 K/uL (0.11-0.59) H 05/24/21 Eosinophils # (Auto) 0.31 K/uL (0-0.5) 05/24/21 Basophils # (Auto) 0.05 K/uL (0-0.2) 05/24/21 Immature Granulocyte # (Auto) 0.04 K/uL (0.00-0.02) H 05/24/21 Na 136 mmol/L (136-145) 05/24/21 K 4.6 mmol/L (3.5-5.1) 05/24/21 Cl 102 mmol/L (98-107) 05/24/21 CO2 28 mmol/L (21-32) 05/24/21 Anion Gap 6.0 (3-11) 05/24/21 BUN 17 mg/dl (7-18) 05/24/21 Creatinine 1.11 mg/dl (0.6-1.2) 05/24/21 BUN/Creatinine Ratio 15.1 (10-20) 05/24/21 Glucose Level 292 mg/dl (70-99) H 05/24/21 Ca 8.7 mg/dl (8.5-10.1) 05/24/21 Total Bilirubin 0.4 mg/dl (0.2-1) 05/24/21 AST/SGOT 16 U/L (15-37) 05/24/21 ALT/SGPT 28 U/L (12-78) 05/24/21 Alkaline Phosphatase 98 U/L (45-117) 05/24/21 Total Protein 8.0 gm/dl (6.4-8.2) 05/24/21 Albumin 3.6 gm/dl (3.4-5.0) 05/24/21 Globulin 4.4 gm/dl (2.5-4.0) H 05/24/21 Albumin/Globulin Ratio 0.8 (0.9-2) L 05/24/21 CRP 1.44 mg/dl (0-0.29) H 05/24/21 Procalcitonin < 0.05 ng/ml (0-0.5) 05/24/21 COVID-19 PCR NEGATIVE (Negative) 05/24/21 Chest X-Ray 05/24/21 Code Status & VTE Plan Code Status FULL CODE VTE Prophylaxis Plan VTE Prophylaxis will be ordered: Yes Supervising Physician Co-Signing Physician Notes I have seen and examined the patient and have discussed the case with the provider above. I agree with the assessment and plan as stated. 56 yo F with uncontrolled DMII with neuropathy complications. She has good blood flow to the foot and sensation is intact throughout on the feet. Trauma and subsequent spontaneous avulsion of the nail plate approximately one month ago with a poorly healing wound. Despite two rounds of abx, erythema, pain and purulent drainage persist. No systemic symptoms or sepsis. She was seen at urgent care and a foot xray revealed possible osteomyelitis. Purulent drainage can be expressed from the wound and a wound sample was collected in the ER. She is not reporting other issues aside from pain in her foot moving proximally. She has no surrounding cellulitis present. Small closed wound on inside of great toe, nail is avulsed, dried blood/scabbing present. Otherwise physical exam unremarkable and as above. Agree with plan for broad IV abx, MRI to assess depth of infection, and ortho evaluation. DO Raman
[2021-05-24] MEDS: INSULIN ASPART 100 UNITS/ML 3 ML PEN SC SCH ×3 (15:28→23:56)
[2021-05-24 15:41] LABS: C Reactive Protein 1.44 mg/dl (0-0.29)
--- NOTE | 2021-05-24 17:55 | Magnetic Resonance Report ---
MR foot LT w/o con HISTORY: Left great toe swelling. Assess for osteomyelitis. TECHNIQUE: Multiplanar multisequence MRI of the left forefoot was performed without contrast accordin g to standard departmental protocol. COMPARISON STUDY: None. FINDINGS: Soft tissue edema within the left first toe. There is also abnormal faintly T1 hypointense signal within the distal phalanx of the first toe. Therefore, these findings are concerning for early osteomyelitis. No definite fracture or dislocation. No loculated fluid collections to suggest absces s. There is a punctate metallic focus along the dorsal lateral aspect of the first toe resulting in s usceptibility artifact. There is also edema within the plantar muscles of the foot. The Lisfranc join t appears aligned. IMPRESSION: 1. Abnormal marrow signal within the distal phalanx of the first toe. This likely represents a develo ping osteomyelitis. Follow-up dedicated left first toe radiograph recommended to better assess the po ssibility of underlying cortical destruction. 2. Soft tissue swelling within the first toe likely representing a cellulitis. 3. There is a punctate superficial metallic focus within the dorsolateral aspect of the first toe dem onstrate a by susceptibility artifact. This would also be better assessed on follow-up radiograph. ACT 112: Negative or not required by law. Electronically signed by: Elgin Mccoy M.D. 05/24/2021 5:54 PM
[2021-05-24] MEDS ORDERED: POLYETHYLENE (MIRALAX) 17 GM PACK PO PRN (18:03)
[2021-05-24] MEDS ORDERED: ALUMINUM/MAGNESIUM SUSP 30 ML UDC PO PRN (18:03)
[2021-05-24] MEDS ORDERED: CEFEPIME CONSULT ACTIVE PRN (18:03)
[2021-05-24] MEDS ORDERED: ACETAMINOPHEN 325 MG TAB PO PRN (18:03)
[2021-05-24] MEDS ORDERED: ONDANSETRON INJ 2 MG/ML 2 ML VIAL IV PRN (18:03)
[2021-05-24] MEDS ORDERED: MAGNESIUM HYDROXIDE SUSP 30 ML UDC PO PRN (18:03)
[2021-05-24] MEDS ORDERED: GLUCAGON FOR INJ 1 MG VIAL SQ PRN (18:03)
--- NOTE | 2021-05-24 18:56 | Pharmacy Report ---
Pharmacy Glycemic Short Note 2 - Date of Service May 24, 2021 - Glycemic Short BSG Results (Last 24 hours): 05/24/21 05/24/21 11:47 14:49 Glucose 292 H POC Glucose 201 H OUTPATIENT ANTIDIABETIC REGIMEN: * Omnipod (Patient unable to tell me any information about it) * Metformin 1000 mg PO BIDM * HbA1c: 9.8% (03/13/21) ASSESSMENT: * PB Is a 56 year old female with uncontrolled T2DM admitted for IV antibiotic treatment of suspected left great toe osteomyelitis * Currently receiving vancomycin, cefepime, and metronidazole * Omnipod was removed prior to MRI, patient does not have supplies with her and is agreeable to SC basal/bolus * Likely EBONY noted on admission, SCr of 1.1 mg/dL (baseline of ~0.7-0.8 mg/dL) * BSG at time of consult is 201 mg/dL * Will be slightly conservative with insulin dosing, as I cannot confirm any outpatient insulin information at this time PLAN FOR INPATIENT GLYCEMIC CONTROL: * Hold outpatient oral diabetes medications * Basal insulin * Lantus 25 units SC x 1 (slightly less than full weight-based stress of 2) * Bolus insulin * NovoLog per scale ACHS or Q6hrs while NPO * Goal Range: Low 110 mg/dL - High 140 mg/dL * Correction Factor: 25 mg/dL/unit * Nutritional / Prandial insulin per carb ratio of 1 unit per 9 grams CHO consumed PLAN FOR DISCHARGE: * tbd
[2021-05-24] MEDS ORDERED: INSULIN GLARGINE SOLOSTAR 100 UNITS/ML 3 ML PEN SC ONE (19:00)
--- NOTE | 2021-05-24 19:12 | Pharmacy Report ---
Pharmacy Vanc AUC Short Note - Date of Service May 24, 2021 - Assessment & Plan Assessment 56 year old F receiving vancomycin, cefepime, and metronidazole for treatment of left great toe osteomyelitis. Patient presented following an outpatient x-ray that revealed probable osteomyelitis, MRI confirmed. Likely secondary to fall ~1 month ago. Blood and toe cultures are pending. EBONY noted, as SCr is 1.1 mg/dL and baseline SCr is ~0.7-0.8 mg/dL. Lactate elevated at 3.4, procalcitonin negative, no leukocytosis, and afebrile. Plan Vancomycin * AUC/MAGDA is the preferred PK/PD target for vancomycin * AUC guided dosing is effective and associated with decreased risk of nephrotoxicity compared to traditional trough targets * Utilizing slightly higher dosing, as I am predicting improvement in renal function tomorrow and because of osteomyelitis indication * Will initiate at 1000 mg IV q12h (~11 mg/kg) * Will hold of on vanco trough at this time, dose/interval will likely need to be adjusted pending renal function in AM Cefepime * 2 g IV q8h - appropriate based on indication and renal function Metronidazole * 500 mg IV q8h - appropriate Pharmacy will continue to follow and will adjust dose/frequency as necessary. Thank you.
[2021-05-24] MEDS: METOPROLOL SUCC 25MG EXT REL TAB PO SCH (20:56)
[2021-05-24] MEDS: CEFEPIME 2,000 MG in SYRINGE 0 ML IV SCH (20:56)
[2021-05-24] MEDS: PANTOprazole 40 MG TAB PO SCH (20:56)
[2021-05-24] MEDS: clonazePAM 0.25 MG TAB PO SCH (20:56)
[2021-05-24] MEDS: amLODIPine BESYLATE 5 MG TAB PO SCH (20:57)
[2021-05-24] MEDS: GABAPENTIN 100 MG CAP PO SCH (20:57)
[2021-05-24] MEDS ORDERED: INSULIN HUMAN REGULAR PER UNIT 5 UNITS in SYRINGE 4.95 ML IV ONE (21:00)
[2021-05-24] MEDS: oxyCODONE HCL IR 5 MG TAB (IMMEDIATE RELEASE) PO PRN (21:09)
[2021-05-24] MEDS: HEPARIN SOD 5,000 UNIT/0.5 ML VIAL SQ SCH (21:52)
--- NOTE | 2021-05-24 22:16 | Orthopedic Consultation ---
Date of Consultation May 24, 2021 Assessment & Plan (1) Osteomyelitis of great toe of left foot: Discussed the diagnosis with the patient. Recommend antibiotic therapy per her medical team. Consider infectious diseases consult. Recommend she follows up with a car restorer either Dr. Bhavani Triplett in our group or otherwise as she may need amputation of her distal phalanx. Follow-up could be done as an outpatient whenever she is ready to discharge. Wound care per wound nurses. Feel free to contact me with any questions or concerns. History of Present Illness Attending Physician: Mona Camargo, History of Present Illness This is a 56-year-old female who has significant past medical history of insulin-dependent T2DM, diabetic neuropathy, diabetic retinopathy, postsurgical hypothyroidism secondary to thyroid cancer, depression with anxiety, gastroparesis and other medical problems listed below who presents to ED secondary to worsening left great toe wound x1 month. Of significance over a month ago patient sustained a fall when trying to get in the shower. She had her right foot off the soap dish and she is unsure what she hit her left foot off of. Her left great toenail was injured and ripped to the point where it was sticking nearly straight up so she pulled on it to remove it the remainder of the way. She attempted treating this with Epsom salts and local wound cares however She continued to notice purulent drainage. Over the past 1 week it has significantly worsened. She has been on oral antibiotics as outpatient including Augmentin, doxycycline and so far 3 doses of Bactrim. She was seen and evaluated by orthopedic urgent care on 05/23 who obtained an x-ray today concerning for left great toe osteomyelitis. Her ESR and CRP at that time were 35 and 16 respectively. She was started on oral Bactrim. She does have a bloody foul-smelling drainage coming from the left foot. She overall has felt sweaty and feverish but no documented fevers. Over the past 5 months she admits to frequent falls. She states, "my legs just go out from under me." She has had no other injuries and denies any syncope, or presyncopal symptoms including lightheadedness, dizziness, chest pain, shortness of breath or nausea. She does history of neuropathy on gabapentin but does have pain on the L great toe extending to the L ankle. She further denies any recent illness, URI symptoms, chest pain, shortness of breath, nausea, vomiting, abdominal pain, change in her bowel or urinary habits. She has been taking her medications as prescribed. She lives with herself and is a recent in the past 4 months. She has been dealing with significant acute stress reaction. Her daughter has been helping her manage her medications. She is on an insulin pump but is currently off of it at the given time secondary to removing it when she was over in Ortho clinic. She states that she does not have her appropriate supplies with her. In ED patient remained hemodynamically stable. She did have an initial lactic acidosis at 3.4. After 1 L of fluid repeat was 2.8. She did receive IV vancomycin and cefepime. Lab work notable for H&H 12.7 and 38.6, RBC 3.87, platelet 328, ESR 35, BUN 17, creatinine 1.11, glucose 292, CRP and procalcitonin pending. Chest x-ray consistent with borderline enlarged cardiac silhouette but no acute abnormality. Orthopedics was consulted for evaluation Allergies Allergy/AdvReac Type Severity Reaction Status Date / Time adhesive tape Allergy Mild SKIN Verified 05/24/21 12:47 IRRITATION Home Medications Medication Instructions Recorded Confirmed Type aspirin 81 mg tablet,delayed 81 mg PO QAM 02/18/19 05/24/21 History release levothyroxine 175 mcg tablet 175 mcg PO DAILY 02/18/19 05/24/21 History metformin 1,000 mg tablet,extended 1,000 mg PO BID 02/18/19 05/24/21 History release 24hr omeprazole 20 mg tablet,delayed 20 mg PO BID 02/18/19 05/24/21 History release amlodipine 2.5 mg tablet 2.5 mg PO HS 03/27/19 05/24/21 History insulin human U-100 NPH-regulr See Rx Instructions .ROUTE .COMPLEX 03/27/19 05/24/21 History 70-30 mix 100 unit/mL subcutaneous susp (Humulin 70/30 U-100 Insulin) gabapentin 100 mg capsule 100 mg PO TID 07/21/19 05/24/21 History clonazepam 0.5 mg tablet 0.25 mg PO BID #60 tab 03/19/21 05/24/21 Rx venlafaxine 150 mg 150 mg PO QAM #30 cap 04/07/21 05/24/21 Rx capsule,extended release 24 hr metoprolol succinate 25 mg 25 mg PO HS 05/24/21 05/24/21 History tablet,extended release 24 hr rosuvastatin 40 mg tablet 40 mg PO DAILY 05/24/21 05/24/21 History Patient History Medical History Anxiety Benign neoplasm of vulva of clitoris CAD (coronary artery disease) Depression Diabetes mellitus, type II History of thyroid cancer Hypertension Myocardial Infarction 12 YEARS AGO (FOLLOWED BY DR. DODSON) VERBALIZED NO HEART CATH DONE Peripheral neuropathy Restless leg syndrome Schwannoma REMOVED BY DR. GROSSMAN MARCH 2018 Stroke 7 YEARS AGO (LEFT SIDE WEAKNESS/LEFT EYE DROOPING) Suicidal ideation Tumor LEFT FEMUR (BENIGN) 2 TUMORS REMOVED Vulvitis Surgical History Family history of reaction to anesthesia BROTHER-NAUSEA H/O blepharoplasty RT/LEFT History of anesthesia reaction SLOW TO WAKE UP History of cholecystectomy History of colonoscopy History of esophagogastroduodenoscopy (EGD) History of neck surgery cervical fusion History of surgery robot-assist left thorascopic resection of schwannoma from left upper mediastinum. 03/16/2018. SANG. A line. No issues. History of thyroidectomy, total History of tonsillectomy History of tooth extraction S/P LASIK surgery of both eyes Status post hysteroscopic ablation of endometrium Family History Grandmother (Maternal) Family history of diabetes mellitus Mother Ovarian cancer Father Myocardial infarction Social History Smoking Status: Never smoker Second Hand Exposure: No; Do You Dip or Chew Tobacco: No; Hx Alcohol Use: Yes Alcohol type: wine Hx Substance Use: No Preferred Language: Nepali Communication Ability: Effective Air Director Required: No Beliefs That Will Affect Care: None marital status: / Current Living Situation: Alone Feels Safe at Home: Yes Assistive Devices: Denture - Upper, Denture - Lower and Glasses Physical Exam Physical Exam: On exam she is a pleasant female alert and oriented x3 in no acute distress. Left foot exam shows the patient's toenail to be missing off the great toe. She has a small eschar noted along the lateral aspect of the nailbed. No active drainage but this is where she says it drains from. There is some mild redness along the nail fold. She says this is about as red as its been. She is able to fire flexor and extensor tendons to the great toe. She has some tenderness to palpation over the distal phalanx maximally. More mild tenderness over the proximal phalanx. No pain with passive range of motion of the IP joint or the MTP joint. Results & Data ([facility]) Vital Signs (Past 12 Hours) Vital Signs Temp Pulse Pulse Resp BP BP BP 05/24/21 20:00 36.8 C 82 20 137/74 05/24/21 18:37 89 05/24/21 18:11 36.6 C 91 H 20 144/75 H 05/24/21 17:41 88 20 138/84 05/24/21 16:30 85 21 131/74 05/24/21 16:00 82 14 134/77 05/24/21 15:30 86 19 132/71 05/24/21 15:00 85 17 141/84 H 05/24/21 14:31 80 14 05/24/21 14:00 82 15 123/79 05/24/21 13:30 83 18 139/87 05/24/21 13:00 81 17 128/69 05/24/21 12:30 84 22 118/67 05/24/21 12:00 93 H 23 122/73 05/24/21 11:45 82 20 05/24/21 11:40 85 17 125/76 05/24/21 10:48 37.1 C 97 H 18 95/61 L Pulse Ox 05/24/21 20:00 97 05/24/21 18:37 05/24/21 18:11 97 05/24/21 17:41 96 05/24/21 16:30 96 05/24/21 16:00 05/24/21 15:30 05/24/21 15:00 05/24/21 14:31 96 05/24/21 14:00 96 05/24/21 13:30 98 05/24/21 13:00 98 05/24/21 12:30 99 05/24/21 12:00 97 05/24/21 11:45 98 05/24/21 11:40 98 05/24/21 10:48 99 Diagnostic Findings I reviewed her MRI scan of her foot. This shows bone marrow edema within the distal phalanx. Findings consistent with osteomyelitis. Proximal phalanx appears uninvolved. Soft tissue swelling is noted.
[2021-05-24] MEDS: metroNIDAZOLE 500 MG/100 ML BAG IV SCH (23:59)
[2021-05-25] MEDS ORDERED: VANCOMYCIN HCL 1,000 MG in SODIUM CHLORIDE 0.9% 250 ML IV SCH
[2021-05-25] MEDS: CEFEPIME 2,000 MG in SYRINGE 0 ML IV SCH ×3 (03:54→20:21)
[2021-05-25] MEDS: INSULIN ASPART 100 UNITS/ML 3 ML PEN SC SCH ×5 (03:58→21:15)
[2021-05-25] MEDS: LEVOTHYROXINE SODIUM 175 MCG TABLET PO SCH (05:57)
[2021-05-25] MEDS: HEPARIN SOD 5,000 UNIT/0.5 ML VIAL SQ SCH ×3 (05:57→21:29)
[2021-05-25 06:35] LABS: Basophils # (auto) 0.03 K/uL (0-0.2); Basophils % (auto) 0.4 %; Eosinophils # (auto) 0.39 K/uL (0-0.5); Eosinophils % (auto) 5.4 %; Hematocrit (blood only) 34.1 % (37-47); Hemoglobin 11.2 g/dL (12.0-16.0); Immature Granulocytes # (auto) 0.04 K/uL (0.00-0.02); Immature Granulocytes % (auto) 0.6 %; Lymphocytes # (auto) 2.66 K/uL (1.2-3.4); Lymphocytes % (auto) 36.8 %; Mean Corpuscular Hemoglobin 28.4 pg (25-34); Mean Corpuscular Hgb Conc 32.8 g/dL (32-36); Mean Corpuscular Volume 86.3 fL (80-100); Mean Platelet Volume 9.7 fL (7.4-10.4); Monocytes # (auto) 0.74 K/uL (0.11-0.59); Monocytes % (auto) 10.2 %; Neutrophils # (auto) 3.37 K/uL (1.4-6.5); Neutrophils % (auto) 46.6 %; Platelet Count 269 K/uL (130-400); RDW Coefficient of Variation 13.8 % (11.5-14.5); RDW Standard Deviation 43.4 fL (36.4-46.3); Red Blood Count 3.95 M/uL (4.2-5.4); White Blood Count 7.23 K/uL (4.8-10.8)
[2021-05-25 06:58] LABS: Appearance Urine Clear (Clear); Bilirubin Urine Negative (Negative); Blood Urine Negative (Negative); Color Urine Yellow; Glucose Urine UA Trace (Negative); Ketones Urine Negative (Negative); Leukocyte Esterase Urine Negative (Negative); Nitrite Urine Negative (Negative); Protein Urine Negative (Negative); Specific Gravity Urine 1.009 (1.000-1.030); Urobilinogen Urine Negative (Negative)
[2021-05-25 07:22] LABS: Albumin Globulin Ratio 0.9 (0.9-2); BUN Creatinine Ratio 20.8 (10-20); Bilirubin,Total 0.4 mg/dl (0.2-1); Calcium 8.2 mg/dl (8.5-10.1); Creatinine Clr Calc Pharmacy 92.1 ml/min; Est GFR (African American) 98.6 ml/min; Est GFR (Non-African American) 85.1 ml/min; Globulin 3.5 gm/dl (2.5-4.0); Potassium 3.7 mmol/L (3.5-5.1); Total Protein 6.5 gm/dl (6.4-8.2)
[2021-05-25] MEDS: metroNIDAZOLE 500 MG/100 ML BAG IV SCH ×3 (08:02→23:28)
[2021-05-25] MEDS: clonazePAM 0.25 MG TAB PO SCH ×2 (08:02→20:22)
[2021-05-25] MEDS: GABAPENTIN 100 MG CAP PO SCH ×3 (08:02→20:23)
[2021-05-25] MEDS: PANTOprazole 40 MG TAB PO SCH ×2 (08:02→20:23)
[2021-05-25] MEDS: ROSUVASTATIN CALCIUM 20 MG TAB PO SCH (08:02)
[2021-05-25] MEDS: ASPIRIN 81 MG ECTAB PO SCH (08:02)
[2021-05-25] MEDS: VENLAFAXINE HCL XR 150 MG CAPXR PO SCH (08:03)
--- NOTE | 2021-05-25 10:55 | XRay Report ---
XR foot LT min 3V routine CLINICAL HISTORY: re-eval metallic focus, ?deg cortical destruction. First toe infection. COMPARISON: MRI of the left foot May 24, 2021. FINDINGS: No definite correlate for the focus of susceptibility artifact within the medial aspect of the left first toe is identified on this examination. A punctate density is noted along the medial a spect of the distal phalanx of the left first toe however this does not correspond to the focus of treviño sceptibility artifact by MRI. No clear bony destruction is identified within the distal phalanx of th e left first toe by radiography. No acute fracture is present. Tarsometatarsal joints are intact. Not e is made of posterior and plantar calcaneal spurring. IMPRESSION: 1. Left first toe soft tissue swelling. No bony destruction by radiography. 2. No definite correlate for the focus of susceptibility artifact on MRI. ACT 112: Negative or not required by law. Electronically signed by: Erik Roman M.D. 05/25/2021 10:53 AM
--- NOTE | 2021-05-25 12:05 | Pharmacy Report ---
Pharmacy Glycemic Short Note 2 - Date of Service May 25, 2021 - Glycemic Short BSG Results (Last 24 hours): 05/24/21 05/24/21 05/24/21 11:47 14:49 20:16 Glucose 292 H POC Glucose 201 H 332 H* 05/24/21 05/24/21 05/25/21 20:17 23:47 03:53 Glucose POC Glucose 308 H* 274 H 206 H 05/25/21 05/25/21 05/25/21 05:50 07:28 11:34 Glucose 204 H POC Glucose 243 H 306 H* 05/25/21 11:35 Glucose POC Glucose 305 H* OUTPATIENT ANTIDIABETIC REGIMEN: * Omnipod (Patient unable to tell me any information about it) * from admission March 2021: Basal rate 43.95units/day, CF 18, CR 5 * Metformin 1000 mg PO BIDM * HbA1c: 9.8% (03/13/21) ASSESSMENT: 05/25 * Blood sugars uncontrolled, fasting 243mg/dl and up to 305mg/dl today prior to lunch, likely due to insufficient basal and bolus, despite tightening CF/CR at breakfast. * Increase basal to be similar to suspected outpatient pump settings and tighten CF/CR for better glycemic control, especially in the setting of osteomyelitis. 05/24 * PB Is a 56 year old female with uncontrolled T2DM admitted for IV antibiotic treatment of suspected left great toe osteomyelitis * Currently receiving vancomycin, cefepime, and metronidazole * Omnipod was removed prior to MRI, patient does not have supplies with her and is agreeable to SC basal/bolus * Likely EBONY noted on admission, SCr of 1.1 mg/dL (baseline of ~0.7-0.8 mg/dL) * BSG at time of consult is 201 mg/dL * Will be slightly conservative with insulin dosing, as I cannot confirm any outpatient insulin information at this time PLAN FOR INPATIENT GLYCEMIC CONTROL: * Hold outpatient oral diabetes medications * Basal insulin * Lantus SQ daily starting now * 40 units BSG < 140mg/dl * 50 units BSG 140mg/dl or greater * Bolus insulin * NovoLog per scale ACHS or Q6hrs while NPO * Goal Range: Low 110 mg/dL - High 140 mg/dL * Correction Factor: 12 mg/dL/unit * Nutritional / Prandial insulin per carb ratio of 1 unit per 4 grams CHO c onsumed PLAN FOR DISCHARGE: * tbd
[2021-05-25] MEDS: INSULIN GLARGINE SOLOSTAR 100 UNITS/ML 3 ML PEN SC SCH (12:11)
[2021-05-25] MEDS: VANCOMYCIN HCL 1,250 MG in SODIUM CHLORIDE 0.9% 250 ML IV SCH ×2 (13:00→23:28)
--- NOTE | 2021-05-25 13:15 | Electrocardiogram Report ---
Test Reason : Blood Pressure : / mmHG Vent. Rate : 085 BPM Atrial Rate : 085 BPM P-R Int : 148 ms QRS Dur : 136 ms QT Int : 388 ms P-R-T Axes : 014 078 -01 degrees QTc Int : 461 ms Normal sinus rhythm Right bundle branch block Inferior infarct (cited on or before 04-AUG-2019) Abnormal ECG When compared with ECG of 11-MAR-2021 20:17, No significant change was found Confirmed by Kali Yo ([id number]) on 05/25/2021 1:15:28 PM Referred By: REFERRED SELF Confirmed By:Kali Yo
[2021-05-25] MEDS ORDERED: INSULIN ASPART 100 UNITS/ML 3 ML PEN SC ONE (14:30)
--- NOTE | 2021-05-25 17:14 | Hospitalist Progress Note ---
Date of Service May 25, 2021 Assessment & Plan (1) Osteomyelitis of great toe of left foot: Plan: Continue broad-spectrum antibiotics with vancomycin, cefepime and Flagyl. Orthopedics is seen patient and no indication for surgical debridement at this time. Wound culture is growing group beta strep with sensitivities pending. Infectious disease consult is in place for tomorrow. Patient is stable and no concern for sepsis. A repeat foot x-ray revealed no definite correlate for the focus of susceptibility artifact that was seen on MRI. And there is no bony destruction by radiography. Continue pain medication as needed. Minimize oxycodone use. May consider scheduled Tylenol. (2) Diabetes mellitus, type II: Plan: Uncontrolled type II DM, A1c 05/23 9.3 Utilizes insulin pump which is disposable. She does not have this with her and is fine with basal bolus insulin during the hospital stay. Lantus/NovoLog per protocol consult glycemic pharmacy - appreciate their management (3) CAD (coronary artery disease): Plan: chronic, stable, cont medical management. Follows Dr. Orozco Branch vessel CAD by cardiac cath 12/2015, chronic RBBB On ASA, statin, metoprolol as outpatient Denies chest pain or shortness of breath EKG unchanged (4) Hypertension: Plan: controlled, cont current therapy. (5) History of thyroid cancer: Plan: Status post total thyroidectomy Continue levothyroxine (6) Depression: Plan: Continue venlafaxine and clonazepam per home regimen (7) DVT prophylaxis: Plan: SQ Heparin Full Code Dispo-dc telemetry, pending infectious disease recommendations. Mona [facility]argo [facility] and Anticipated Discharge Date Admission Date: May 24, 2021 Subjective 56 yo F admitted for osteomyelitis of the left great toe Seen by ortho overnight-no indication for surgical debridement Consult in for ID Continues on broad abx Pain managed with narcotics She is somewhat sleepy but doing well Non-weight bearing on this foot. Review of Systems Review of Systems: All systems were reviewed and negative except as indicated in HPI above. Physical Exam Physical Exam: CONSTITUTIONAL: WNWD, vitals as above, generally well- appearing EYES: normal conjunctivae, no scleral icterus ENT: external ear and nose normal, MMM RESPIRATORY: clear to auscultation bilaterally, no crackles, rales or wheezes, normal respiratory effort CARDIOVASCULAR: regular rate and rhythm, S1 and 2 heard without murmurs, gallops or rubs, no JVD, no peripheral edema GASTROINTESTINAL: soft, nontender, nondistended. MUSCULOSKELETAL: strength 5/5 throughout, head is normocephalic and atraumatic SKIN: warm and dry, closed wound on great left toe. wrapped in clean dry dressing with no surrounding erythema. Wound site was not directly visualized today. NEUROLOGIC: CN 2-12 grossly intact, no sensory deficit, normal cognition, normal speech, no tremor PSYCHIATRIC: alert cooperative and oriented to person, place and time. Results & Data Results & Data ([facility]) Vital Signs (Past 12 Hours) Vital Signs Temp Pulse Pulse Resp BP Pulse Ox 05/25/21 15:55 36.8 C 86 16 129/76 97 05/25/21 14:20 83 05/25/21 11:27 36.7 C 84 16 120/66 91 05/25/21 08:00 36.5 C 79 16 112/67 91 05/25/21 06:43 74 Laboratory Results Short CBC 05/25/21 Range/Units 05:50 WBC 7.23 (4.8-10.8) K/uL Hgb 11.2 L (12.0-16.0) g/dL Hct 34.1 L (37-47) % Plt Count 269 (130-400) K/uL BMP 05/25/21 05:50 Sodium 142 Potassium 3.7 D Chloride 108 H Carbon Dioxide 28 BUN 16 Creatinine 0.77 D Glucose 204 H Calcium 8.2 L Liver Function 05/25/21 Range/Units 05:50 Total Bilirubin 0.4 (0.2-1) mg/dl AST 14 L (15-37) U/L ALT 21 (12-78) U/L Alkaline Phosphatase 71 (45-117) U/L Albumin 3.0 L (3.4-5.0) gm/dl Urine 05/25/21 Range/Units 06:30 Urine Color Yellow Urine Appearance Clear (Clear) Urine pH 5.0 (4.5-7.5) Ur Specific Ranson 1.009 (1.000-1.030) Urine Protein Negative (Negative) Urine Glucose (UA) Trace H (Negative) Medications Administered Current Inpatient Medications Acetaminophen (Acetaminophen 325 Mg Tab) 650 mg PO Q4H PRN PRN Reason: Pain or Fever Stop: 06/23/21 18:02 Al Hydrox/Mg Hydrox/Simethicone (Aluminum/Magnesium Susp 30 Ml Udc) 15 ml PO Q4H PRN PRN Reason: Dyspepsia Stop: 06/23/21 18:02 Amlodipine Besylate (Amlodipine Besylate 5 Mg Tab) 2.5 mg PO HS [facility] Stop: 06/23/21 20:59 Last Admin: 05/24/21 20:57 Dose: 2.5 mg Documented by: Aspirin (Aspirin 81 Mg Ectab) 81 mg PO QAM WILILAM Stop: 06/24/21 08:59 Last Admin: 05/25/21 08:02 Dose: 81 mg Documented by: Clonazepam (Clonazepam 0.25 Mg Tab) 0.25 mg PO BID WILLIAM Stop: 06/23/21 20:59 Last Admin: 05/25/21 08:02 Dose: 0.25 mg Documented by: Dextrose (Dextrose 50% 50 Ml Syringe) 25 - 50 ml IV UD PRN; Protocol PRN Reason: Hypoglycemia Protocol Stop: 06/23/21 15:14 Dextrose (Dextrose 50% 50 Ml Syringe) 25 - 50 ml IV UD PRN; Protocol PRN Reason: Hypoglycemia Protocol Stop: 06/23/21 18:02 Gabapentin (Gabapentin 100 Mg Cap) 100 mg PO TID WILLIAM Stop: 06/23/21 20:59 Last Admin: 05/25/21 14:43 Dose: 100 mg Documented by: Glucagon (Glucagon For Inj 1 Mg Vial) 1 mg IM UD PRN; Protocol PRN Reason: Hypoglycemia Protocol Stop: 06/23/21 15:14 Glucagon (Glucagon For Inj 1 Mg Vial) 1 mg SQ UD PRN; Protocol PRN Reason: Hypoglycemia Protocol Stop: 06/23/21 18:02 Glucose (Glucose 40% Gel 15 Gm Tube) 15 - 30 gm PO UD PRN; Protocol PRN Reason: Hypoglycemia Protocol Stop: 06/23/21 15:14 Glucose (Glucose 10 Tabs/Tube) 4 - 8 tabs PO UD PRN; Protocol PRN Reason: Hypoglycemia Protocol Stop: 06/23/21 15:14 Glucose (Glucose 10 Tabs/Tube) 4 - 8 tabs PO UD PRN; Protocol PRN Reason: Hypoglycemia Protocol Stop: 06/23/21 18:02 Glucose (Glucose 40% Gel 15 Gm Tube) 15 - 30 gm PO UD PRN; Protocol PRN Reason: Hypoglycemia Protocol Stop: 06/23/21 18:02 Heparin Sodium (Porcine) (Heparin Sod 5,000 Unit/0.5 Ml Vial) 5,000 units SQ Q8 [facility] Stop: 06/23/21 21:59 Last Admin: 05/25/21 14:43 Dose: 5,000 units Documented by: Metronidazole (Flagyl) 500 mg in 100 mls @ 100 mls/hr IV Q8H WILLIAM Stop: 06/01/21 00:00 Last Admin: 05/25/21 16:42 Dose: 100 mls/hr Documented by: Cefepime HCl 2,000 mg/ Syringe 20 mls @ 5 mls/min IV Q8H [facility]; Protocol Stop: 07/05/21 19:59 Last Admin: 05/25/21 13:00 Dose: 5 mls/min Documented by: Vancomycin HCl 1,250 mg/ (Sodium Chloride) 275 mls @ 200 mls/hr IV Q12H [facility] Stop: 07/06/21 11:59 Last Infusion: 05/25/21 14:23 Dose: Infused Documented by: Insulin Aspart (Insulin Aspart 100 Units/Ml 3 Ml Pen) 0 units SC ACHS [facility] Stop: 06/23/21 16:29 Last Admin: 05/25/21 12:44 Dose: 26 units Documented by: Insulin Glargine (Insulin Glargine Solostar 100 Units/Ml 3 Ml Pen) 0 units SC DAILY [facility]; Protocol Stop: 06/24/21 11:59 Last Admin: 05/25/21 12:11 Dose: 50 units Documented by: Levothyroxine Sodium (Levothyroxine Sodium 175 Mcg Tablet) 175 mcg PO DAILYBB [facility] Stop: 06/24/21 06:29 Last Admin: 05/25/21 05:57 Dose: 175 mcg Documented by: Magnesium Hydroxide (Magnesium Hydroxide Susp 30 Ml Udc) 30 ml PO Q12H PRN PRN Reason: Constipation Stop: 06/23/21 18:02 Metoprolol Succinate (Metoprolol Succ 25mg Ext Rel Tab) 25 mg PO HS [facility] Stop: 06/23/21 20:59 Last Admin: 05/24/21 20:56 Dose: 25 mg Documented by: Miscellaneous (Carbohydrates For Hypoglycemia ) 15 - 30 gm PO UD PRN PRN Reason: Hypoglycemia Treatment Stop: 06/23/21 15:14 Miscellaneous (Carbohydrates For Hypoglycemia ) 15 - 30 gm PO UD PRN PRN Reason: Hypoglycemia Protocol Stop: 06/23/21 18:02 Miscellaneous Information (Pharmacy Glycemic Mgmt Consult) 1 ea N/A UD PRN; Protocol PRN Reason: Consult Stop: 06/23/21 15:25 Miscellaneous Information (Vancomycin Consult Active) 1 ea N/A UD PRN PRN Reason: Consult Stop: 06/23/21 18:02 Miscellaneous Information (Cefepime Consult Active) 1 ea N/A UD PRN PRN Reason: Consult Stop: 06/23/21 18:02 Ondansetron HCl (Ondansetron Inj 2 Mg/Ml 2 Ml Vial) 4 mg IV Q6H PRN PRN Reason: Nausea Stop: 06/23/21 18:02 Oxycodone HCl (Oxycodone Hcl Ir 5 Mg Tab (Immediate Release)) 5 mg PO Q4H PRN PRN Reason: severe pain Stop: 06/07/21 18:02 Last Admin: 05/24/21 21:09 Dose: 5 mg Documented by: Pantoprazole Sodium (Pantoprazole 40 Mg Tab) 40 mg PO BID [facility]; Protocol Stop: 06/23/21 20:59 Last Admin: 05/25/21 08:02 Dose: 40 mg Documented by: Polyethylene Glycol (Polyethylene (Miralax) 17 Gm Pack) 17 gm PO DAILY PRN PRN Reason: Constipation Stop: 06/23/21 18:02 Rosuvastatin Calcium (Rosuvastatin Calcium 20 Mg Tab) 40 mg PO DAILY [facility] Stop: 06/24/21 08:59 Last Admin: 05/25/21 08:02 Dose: 40 mg Documented by: Venlafaxine HCl (Venlafaxine Hcl Xr 150 Mg Capxr) 150 mg PO QAM [facility] Stop: 06/24/21 08:59 Last Admin: 05/25/21 08:03 Dose: 150 mg Documented by:
[2021-05-25] MEDS: amLODIPine BESYLATE 5 MG TAB PO SCH (20:21)
[2021-05-25] MEDS: METOPROLOL SUCC 25MG EXT REL TAB PO SCH (20:55)
[2021-05-26] MEDS: CEFEPIME 2,000 MG in SYRINGE 0 ML IV SCH ×2 (04:38→12:32)
[2021-05-26] MEDS: LEVOTHYROXINE SODIUM 175 MCG TABLET PO SCH (06:19)
[2021-05-26] MEDS: HEPARIN SOD 5,000 UNIT/0.5 ML VIAL SQ SCH ×3 (06:19→21:45)
[2021-05-26] MEDS: ASPIRIN 81 MG ECTAB PO SCH (07:57)
[2021-05-26] MEDS: VENLAFAXINE HCL XR 150 MG CAPXR PO SCH (07:57)
[2021-05-26] MEDS: ROSUVASTATIN CALCIUM 20 MG TAB PO SCH (07:58)
[2021-05-26] MEDS: GABAPENTIN 100 MG CAP PO SCH ×3 (07:58→19:46)
[2021-05-26] MEDS: PANTOprazole 40 MG TAB PO SCH ×2 (07:59→19:45)
[2021-05-26] MEDS: clonazePAM 0.25 MG TAB PO SCH ×2 (08:04→19:44)
[2021-05-26] MEDS: metroNIDAZOLE 500 MG/100 ML BAG IV SCH (08:04)
[2021-05-26] MEDS: INSULIN GLARGINE SOLOSTAR 100 UNITS/ML 3 ML PEN SC SCH (09:07)
[2021-05-26] MEDS: INSULIN ASPART 100 UNITS/ML 3 ML PEN SC SCH ×4 (09:08→21:44)
[2021-05-26 09:45] LABS: Hematocrit (blood only) 35.9 % (37-47); Hemoglobin 11.5 g/dL (12.0-16.0); Mean Corpuscular Hemoglobin 27.8 pg (25-34); Mean Corpuscular Volume 86.7 fL (80-100); Mean Platelet Volume 9.6 fL (7.4-10.4); Platelet Count 287 K/uL (130-400); RDW Standard Deviation 44.1 fL (36.4-46.3); Red Blood Count 4.14 M/uL (4.2-5.4); White Blood Count 7.05 K/uL (4.8-10.8)
[2021-05-26 10:22] LABS: BUN Creatinine Ratio 16.6 (10-20); C Reactive Protein 0.63 mg/dl (0-0.29); Calcium 8.6 mg/dl (8.5-10.1); Creatinine Clr Calc Pharmacy 72.3 ml/min; Est GFR (African American) 73.7 ml/min; Est GFR (Non-African American) 63.6 ml/min; Potassium 3.7 mmol/L (3.5-5.1)
[2021-05-26 10:38] LABS: Beta-Hydroxybutyrate 1.93 mg/dl (0.2-2.81)
[2021-05-26] MEDS ORDERED: VANCOMYCIN TROUGH ONE (11:30)
--- NOTE | 2021-05-26 12:24 | Hospitalist Progress Note ---
Date of Service May 26, 2021 Assessment & Plan (1) Osteomyelitis of great toe of left foot: Plan: Stop vancomycin, cefepime and Flagyl. Start Rocephin 2g IV Q24. ID recs amputation. I ordered a dedicatated XR of L great toe. Orthopedics has seen the patient and no indication for surgical debridement at this time. Wound culture is growing group beta strep with sensitivities pending. Infectious disease consult is on the chart. Patient is stable and no concern for sepsis. A repeat foot x-ray revealed no definite correlate for the focus of susceptibility artifact that was seen on MRI. Will still get dedicated L Great Toe XR. Continue pain medication as needed. Minimize oxycodone use. May consider scheduled Tylenol. (2) Diabetes mellitus, type II: Plan: Uncontrolled type II DM, A1c 05/23 9.3 Utilizes insulin pump which is disposable. She does not have this with her and is fine with basal bolus insulin during the hospital stay. Lantus/NovoLog per protocol consult glycemic pharmacy - appreciate their management (3) CAD (coronary artery disease): Plan: chronic, stable, cont medical management. Follows Dr. Orozco [place] vessel CAD by cardiac cath 12/2015, chronic RBBB On ASA, statin, metoprolol as outpatient Denies chest pain or shortness of breath EKG unchanged (4) Hypertension: Plan: controlled, cont current therapy. (5) History of thyroid cancer: Plan: Status post total thyroidectomy Continue levothyroxine (6) Depression: Plan: Continue venlafaxine and clonazepam per home regimen (7) DVT prophylaxis: Plan: SQ Heparin Full Code Dispo-Med Surg Labs checked ROS-No Headache, No Visual Changes, No Nausea, No Vomiting, No Fever, No Chills, No Neck Pain or Stiffness, No Chest Pain, No Palpitations, No SOB, No SARMIENTO, No Cough, No Sputum, No Wheezing, No Abdominal Pain, No Diarrhea, No Hematemesis, No Hemoptysis, No Unexpected Weight Loss, No Flank pain, No Melena, No Hematochezia, No Frequency, No Urgency, No Burning, No Hematuria, No Rashes, No Diaphoresis. Appetite is Normal, Painful L Great toe Physical Exam Gen-AAO x 3, NAD, Afebrile Head-NCAT, EOMI, PERRLA, Anicteric Sclera, No Posterior Pharyngeal Erythema Neck-Supple, No JVD, No Thyromegaly, No Masses, No LAD, No Bruits Lungs-Clear to Auscultation Bilaterally, No Rales, No Rhonchi, No Wheezing, No Crepitus Chest-No S4, +S1, +S2, No S3, No Murmurs, No Rubs, No Gallops, No Ectopy Abdomen-Soft, Bowel Sounds Present, Non Tender, Non Distended, No Hepatomegaly, No Splenomegaly, No Palpable Masses, No Rebound, No Rigidity, No Guarding Musculoskeletal-Full Range of Motion Bilaterally, No CVAT Extremities-No Cyanosis, No Clubbing, No Edema, L great toe c mild erythema Nuero-Cranial Nerves II-XII grossly intact, Motor WNL, DTRs WNL, Strength WNL, Non Focal Psych-Normal Mood Admission and Anticipated Discharge Date Admission Date: May 24, 2021 Results & Data Results & Data ([facility]) Vital Signs (Past 12 Hours) Vital Signs Temp Pulse Resp BP Pulse Ox 05/26/21 08:08 36.6 C 83 16 124/73 94 05/26/21 03:11 36.6 C 89 18 120/69 97
[2021-05-26] MEDS: VANCOMYCIN HCL 1,250 MG in SODIUM CHLORIDE 0.9% 250 ML IV SCH (12:32)
--- NOTE | 2021-05-26 13:21 | XRay Report ---
LEFT FIRST TOE 3 VIEWS CLINICAL HISTORY: First toe infection. FINDINGS: 3 views of the left first toe are correlated with radiographs of the left foot dated 021. The skeletal structures are osteopenic. No fracture is identified. There is no bony erosion or p eriostitis. Mild degenerative change is seen at the first metatarsophalangeal and interphalangeal rudy nts. Soft tissue edema is noted in the first toe. There is atherosclerotic calcification of the regio nal arteries. Question a punctate foreign body within the lateral soft tissues at the level of the tu ft of the distal phalanx. IMPRESSION: Soft tissue edema with no osseous abnormality identified. Electronically signed by: Odilon Colon M.D. 05/26/2021 1:20 PM
[2021-05-26] MEDS: cefTRIAXone SODIUM 2,000 MG in DEXTROSE 5% 50 ML IV SCH (13:29)
[2021-05-26] MEDS ORDERED: INSULIN GLARGINE SOLOSTAR 100 UNITS/ML 3 ML PEN SC ONE (15:00)
[2021-05-26] MEDS: METOPROLOL SUCC 25MG EXT REL TAB PO SCH (19:46)
[2021-05-26] MEDS: amLODIPine BESYLATE 5 MG TAB PO SCH (19:46)
[2021-05-26] MEDS: oxyCODONE HCL IR 5 MG TAB (IMMEDIATE RELEASE) PO PRN (21:43)
[2021-05-27] MEDS: INSULIN ASPART 100 UNITS/ML 3 ML PEN SC SCH ×4 (00:30→12:39)
[2021-05-27] MEDS: LEVOTHYROXINE SODIUM 175 MCG TABLET PO SCH (06:33)
[2021-05-27] MEDS: HEPARIN SOD 5,000 UNIT/0.5 ML VIAL SQ SCH ×2 (06:33→12:45)
[2021-05-27 07:34] LABS: Hemoglobin 12.1 g/dL (12.0-16.0); Mean Corpuscular Hemoglobin 28.1 pg (25-34); Mean Corpuscular Hgb Conc 32.7 g/dL (32-36); Mean Platelet Volume 9.4 fL (7.4-10.4); Platelet Count 273 K/uL (130-400); RDW Standard Deviation 43.5 fL (36.4-46.3); White Blood Count 8.41 K/uL (4.8-10.8)
[2021-05-27] MEDS: ROSUVASTATIN CALCIUM 20 MG TAB PO SCH (07:52)
[2021-05-27] MEDS: GABAPENTIN 100 MG CAP PO SCH ×2 (07:52→12:45)
[2021-05-27] MEDS: VENLAFAXINE HCL XR 150 MG CAPXR PO SCH (07:53)
[2021-05-27] MEDS: PANTOprazole 40 MG TAB PO SCH (07:53)
[2021-05-27] MEDS: ASPIRIN 81 MG ECTAB PO SCH (07:53)
[2021-05-27] MEDS: clonazePAM 0.25 MG TAB PO SCH (07:57)
[2021-05-27 08:13] LABS: BUN Creatinine Ratio 24.9 (10-20); Calcium 8.8 mg/dl (8.5-10.1); Creatinine Clr Calc Pharmacy 90.8 ml/min; Est GFR (African American) 97.1 ml/min; Est GFR (Non-African American) 83.8 ml/min; Potassium 3.6 mmol/L (3.5-5.1)
[2021-05-27] MEDS: INSULIN GLARGINE SOLOSTAR 100 UNITS/ML 3 ML PEN SC SCH (08:30)
--- NOTE | 2021-05-27 11:01 | Discharge Summary ---
Date of Service May 27, 2021 Admission HPI Per Admitting Provider This is a 56-year-old female who has significant past medical history of insulin-dependent T2DM, diabetic neuropathy, diabetic retinopathy, postsurgical hypothyroidism secondary to thyroid cancer, depression with anxiety, gastroparesis and other medical problems listed below who presents to ED secondary to worsening left great toe wound x1 month. Of significance over a month ago patient sustained a fall when trying to get in the shower. She had her right foot off the soap dish and she is unsure what she hit her left foot off of. Subsequently her left great toenail avulsed and she has had a nonhealing wound for the past month. Over the past 1 week it has significantly worsened. She has been on oral antibiotics as outpatient including Augmentin, doxycycline and so far 3 doses of Bactrim. She was seen and evaluated by orthopedic urgent care on 05/23 who obtained an x-ray today concerning for left great toe osteomyelitis. Her ESR and CRP at that time were 35 and 16 respectively. She was started on oral Bactrim. She does have a bloody foul- smelling drainage coming from the left foot. She overall has felt sweaty and feverish but no documented fevers. Over the past 5 months she admits to frequent falls. She states, "my legs just go out from under me." She has had no other injuries and denies any syncope, or presyncopal symptoms including lightheadedness, dizziness, chest pain, shortness of breath or nausea. She does history of neuropathy on gabapentin but does have pain on the L great toe extending to the L ankle. She further denies any recent illness, URI symptoms, chest pain, shortness of breath, nausea, vomiting, abdominal pain, change in her bowel or urinary habits. She has been taking her medications as prescribed. She lives with herself and is a recent in the past 4 months. She has been dealing with significant acute stress reaction. Her daughter has been helping her manage her medications. She is on an insulin pump but is currently off of it at the given time secondary to removing it when she was over in Ortho clinic. She states that she does not have her appropriate supplies with her. In ED patient remained hemodynamically stable. She did have an initial lactic acidosis at 3.4. After 1 L of fluid repeat was 2.8. She did receive IV vancomycin and cefepime. Lab work notable for H&H 12.7 and 38.6, RBC 3.87, platelet 328, ESR 35, BUN 17, creatinine 1.11, glucose 292, CRP and procalcitonin pending. Chest x-ray consistent with borderline enlarged cardiac silhouette but no acute abnormality. Admission Exam Per Admitting Provider Constitutional: WD/WN, female, vitals as above, NAD, sitting up in bed, pleasant, conversing easily Head: Normocephalic, Atraumatic Eyes: PERRL, conjunctivae normal, anicteric sclerae ENMT: external ear and nose normal, oropharynx normal Neck: trachea midline, no thyromegaly normal visual inspection Respiratory: normal respiratory effort, lungs clear to auscultation, no wheeze, rales, rhonchi. Normal insp/exp effort, no accessory muscle use Cardiovascular: RRR, no murmur, left pedal edema, bilateral pedal pulses +2 and equal, bilateral PT pulses +2 and equal, neurovascularly intact in bilateral lower extremities, no edema Vessels: no JVD or carotid bruit Chest: normal inspection of chest Abdomen: normal bowel sounds, soft, nontender, no hepatosplenomegaly Musculoskeletal: no cyanosis or clubbing, extremities motor strength 5/5 Skin: + Avulsed left great toenail, nail bed erythematous, soft, purulent with serosanguineous foul-smelling drainage, no rashes, warm and dry normal turgor Neurologic: PERRL, EOMI, accommodation nl, no face palsy, no dysarthria CN's II-XI intact bilaterally and moves all extremities Psychiatric: A+Ox3, euthymic affect Lymphatic: no cervical or axillary lymphadenopathy : deferred Principal Diagnosis (1) Osteomyelitis of great toe of left foot: (2) Diabetes mellitus, type II: (3) CAD (coronary artery disease): (4) Hypertension: (5) History of thyroid cancer: (6) Depression: Discharge Exam see below Discharge Data Allergies Allergy/AdvReac Type Severity Reaction Status Date / Time adhesive tape Allergy Mild SKIN Verified 05/24/21 12:47 IRRITATION Consultations 05/24/21 15:22 Consult Orthopedic Surgery Routine 05/25/21 09:06 Consult Infectious Diseases Routine Ordered Studies 05/24/21 15:18 MR foot LT w/o con Routine Current Diagnoses Type 2 diabetes mellitus without complications (05/24/21) Major depressive disorder, single episode, unspecified (05/24/21) Essential (primary) hypertension (05/24/21) Atherosclerotic heart disease of [place] coronary artery without angina pectoris (05/24/21) Osteomyelitis, unspecified (05/24/21) Unspecified open wound of left great toe without damage to nail, initial encounter (05/24/21) Encounter for prophylactic measures, unspecified (05/24/21) Personal history of malignant neoplasm of thyroid (05/24/21) Allergies adhesive tape Allergy (Mild, Verified 05/24/21 12:47) SKIN IRRITATION Height/Weight/Isolation Height 5 ft 8 in Weight 87 kg Chemistry 05/26/21 05/27/21 09:28 07:10 Sodium 137 141 Potassium 3.7 3.6 Chloride 103 106 Carbon Dioxide 28 28 Anion Gap 6.0 7.0 BUN 16 20 H Creatinine 0.98 0.78 Glucose 346 H* 185 H Microbiology 05/24/21 16:26 Toe,Left Great Gram Stain - Final 05/24/21 16:26 Toe,Left Great Wound Culture - Final Group B Beta Strep 05/24/21 11:47 Blood Aerobic Blood Culture - Preliminary No growth in Aerobic bottle after 48 hours. 05/24/21 11:47 Blood Anaerobic Blood Culture - Preliminary No growth in Anaerobic bottle after 48 hours. 05/24/21 11:45 Blood Aerobic Blood Culture - Preliminary No growth in Aerobic bottle after 48 hours. 05/24/21 11:45 Blood Anaerobic Blood Culture - Preliminary No growth in Anaerobic bottle after 48 hours. Diabetes Follow up Diabetes Follow-up Needed for HgbA1c >9% Hospital Course (1) Osteomyelitis of great toe of left foot: Off vancomycin, cefepime and Flagyl. Started Rocephin 2g IV Q24. ID recs amputation. Orthopedics has seen the patient and no indication for surgical debridement at this time. Wound culture is growing group beta strep with sensitivities pending. Infectious disease consult is on the chart. Patient is stable and no concern for sepsis. A repeat foot x-ray revealed no definite correlate for the focus of susceptibility artifact that was seen on MRI. Dedi cated L Great Toe XR no mention of OM. Continue pain medication as needed. Minimize oxycodone use. (2) Diabetes mellitus, type II: Uncontrolled type II DM, A1c 05/23 9.3 Utilizes insulin pump which is disposable. She does not have this with her and is fine with basal bolus insulin during the hospital stay. Lantus/NovoLog per protocol f/u in office (3) CAD (coronary artery disease): chronic, stable, cont medical management. Follows Dr. Orozco [place] vessel CAD by cardiac cath 12/2015, chronic RBBB On ASA, statin, metoprolol as outpatient Denies chest pain or shortness of breath EKG unchanged (4) Hypertension: controlled, cont current therapy. (5) History of thyroid cancer: Status post total thyroidectomy Continue levothyroxine (6) Depression: Continue venlafaxine and clonazepam per home regimen (7) DVT prophylaxis: SQ Heparin Full Code Dispo-Med Surg Labs checked ROS-No Headache, No Visual Changes, No Nausea, No Vomiting, No Fever, No Chills, No Neck Pain or Stiffness, No Chest Pain, No Palpitations, No SOB, No SARMINETO, No Cough, No Sputum, No Wheezing, No Abdominal Pain, No Diarrhea, No Hematemesis, No Hemoptysis, No Unexpected Weight Loss, No Flank pain, No Melena, No Hematochezia, No Frequency, No Urgency, No Burning, No Hematuria, No Rashes, No Diaphoresis. Appetite is Normal, Painful L Great toe Physical Exam Gen-AAO x 3, NAD, Afebrile Head-NCAT, EOMI, PERRLA, Anicteric Sclera, No Posterior Pharyngeal Erythema Neck-Supple, No JVD, No Thyromegaly, No Masses, No LAD, No Bruits Lungs-Clear to Auscultation Bilaterally, No Rales, No Rhonchi, No Wheezing, No Crepitus Chest-No S4, +S1, +S2, No S3, No Murmurs, No Rubs, No Gallops, No Ectopy Abdomen-Soft, Bowel Sounds Present, Non Tender, Non Distended, No Hepatomegaly, No Splenomegaly, No Palpable Masses, No Rebound, No Rigidity, No Guarding Musculoskeletal-Full Range of Motion Bilaterally, No CVAT Extremities-No Cyanosis, No Clubbing, No Edema, L great toe c mild erythema Nuero-Cranial Nerves II-XII grossly intact, Motor WNL, DTRs WNL, Strength WNL, Non Focal Psych-Normal Mood Total Time Total Time Spent Total Time Spent (In Minutes): 45 mins Total Time Includes: Examination of the Patient, Discharge Planning, Medication Reconciliation, Communication With Other Providers and Other Discharge Plan Discharge Items Patient Disposition: Home - Home Health Services Reason For Visit: L GREAT TOE OSTEOMYELITIS Discharge Diagnosis: (1) Osteomyelitis of great toe of left foot: (2) Diabetes mellitus, type II: (3) CAD (coronary artery disease): (4) Hypertension: (5) History of thyroid cancer: (6) Depression: Condition on Discharge: Good Activity: Resume your previous activity Lifting: Gradually increase as tolerated Bathing: No limitations Sexual Activity: When tolerated Exercise/Sports: Gradually increase as tolerated Driving/Machine Use: No limitations Weightbearing: Full weightbearing Non-emergency contact: Primary Care Provider and Surgeon Call non-emergency contact if: you have any medication questions Follow-up/Referrals: Migel Hunt MD [Physician] - (or associate EVY) Torrey Aldana MD [Physician] - (Call for first opening) Glen Diaz DO [Primary Care Provider] - Diet: Carb Consistent or DM2 and Heart Healthy Addtl Attending Provider Instructions: Follow up with Ortho-Call for instructions. Follow up with infectious disease in [place], ask for first available dr CMP, CBC, CRP weekly while on antibiotics Pending Studies at Discharge: No Stand-Alone Forms: My [facility], Opioid Pain Management, Smoking Cessation Medications and DC Order Prescriptions: New acetaminophen 325 mg Tablet 650 mg PO Q4H PRN (Reason: fever or pain) Qty: 90 RF: 0 oxycodone 5 mg Tablet 5 mg PO Q4H PRN (Reason: pain) Qty: 30 RF: 0 ceftriaxone 2 gram recon soln 2 g IV DAILY Qty: 42 RF: 0 Continued Humulin 70/30 U-100 Insulin 100 unit/mL (70-30) Suspension See Rx Instructions .ROUTE .COMPLEX RF: 0 amlodipine 2.5 mg Tablet 2.5 mg PO HS RF: 0 aspirin 81 mg Tablet,Delayed Release (Dr/Ec) 81 mg PO QAM RF: 0 omeprazole 20 mg Tablet,Delayed Release (Dr/Ec) 20 mg PO BID RF: 0 levothyroxine 175 mcg Tablet 175 mcg PO DAILY RF: 0 metformin 1,000 mg Tablet Extended Release 24hr 1,000 mg PO BID RF: 0 gabapentin 100 mg Capsule 100 mg PO TID RF: 0 clonazepam 0.5 mg Tablet 0.25 mg PO BID Qty: 60 RF: 0 metoprolol succinate 25 mg Tablet Extended Release 24 Hr 25 mg PO HS RF: 0 rosuvastatin 40 mg Tablet 40 mg PO DAILY RF: 0 venlafaxine 150 mg Capsule,Extended Release 24hr 150 mg PO QAM Qty: 30 RF: 0 Discharge Orders: Discharge Order (Routine); Ordered 05/27/21 Ordered By: Viral Mccormick Admission Data Admit Date/Time: 05/24/21 14:36 Attending Provider: Viral Mccormick Admit Provider: Mona Camargo Primary Care Provider: Glen Diaz Other Providers: Migel Hunt ; Jamir Fine ; Lachelle Purcell ; Torrey Aldana I. ; Babar Westbrook II ; Charmaine Pierce ; Christian Gutiérrez
[2021-05-27] MEDS: cefTRIAXone SODIUM 2,000 MG in DEXTROSE 5% 50 ML IV SCH (12:08)
== END 2021-05-27 14:10 | disposition home or self-care (01) | DRG 638 ==
LOC: ED 10:38 → SUATTDRO 14:36 → 2W 14:36

== ENCOUNTER 2021-07-13 17:47 | Observation (INO) ==
[2021-07-13 19:01] LABS: Basophils # (auto) 0.05 K/uL (0-0.2); Basophils % (auto) 0.6 %; Eosinophils % (auto) 3.5 %; Hematocrit (blood only) 40.3 % (37-47); Hemoglobin 12.9 g/dL (12.0-16.0); Immature Granulocytes # (auto) 0.02 K/uL (0.00-0.02); Immature Granulocytes % (auto) 0.2 %; Lymphocytes # (auto) 3.05 K/uL (1.2-3.4); Mean Corpuscular Hemoglobin 28.7 pg (25-34); Mean Corpuscular Volume 89.8 fL (80-100); Mean Platelet Volume 9.8 fL (7.4-10.4); Monocytes # (auto) 0.53 K/uL (0.11-0.59); Monocytes % (auto) 6.3 %; Neutrophils # (auto) 4.52 K/uL (1.4-6.5); Neutrophils % (auto) 53.4 %; Platelet Count 307 K/uL (130-400); RDW Coefficient of Variation 14.2 % (11.5-14.5); Red Blood Count 4.49 M/uL (4.2-5.4); White Blood Count 8.47 K/uL (4.8-10.8)
--- NOTE | 2021-07-13 19:04 | XRay Report ---
XR toe(s) LT min 2V CLINICAL HISTORY: great toe infection COMPARISON: Left foot radiographs June 19, 2021. FINDINGS: Amputation of the left first toe is noted. Postoperative appearance is unchanged since rad iograph June 19, 2021. Lateral view demonstrates osseous irregularity at the level of the amputatio n within the distal remaining portion of the proximal phalanx of the left first toe. There is no acut e fracture. IMPRESSION: Status post left first digit amputation. Osseous irregularity within the distal remaining portion of the proximal phalanx of the left first toe shown only on lateral projection. This could r eflect postsurgical change or osteomyelitis. ACT 112: Negative or not required by law. Electronically signed by: Erik Roman M.D. 07/13/2021 7:03 PM
[2021-07-13] MEDS ORDERED: VANCOMYCIN HCL 2,000 MG in SODIUM CHLORIDE 0.9% 500 ML IV ONE (19:24)
[2021-07-13] MEDS ORDERED: VANCOMYCIN CONSULT ACTIVE PRN (19:24)
[2021-07-13 19:26] LABS: BUN Creatinine Ratio 15.4 (10-20); Calcium 8.1 mg/dl (8.5-10.1); Creatinine Clr Calc Pharmacy 47.4 ml/min; Est GFR (African American) 45.5 ml/min; Est GFR (Non-African American) 39.3 ml/min; Potassium 4.8 mmol/L (3.5-5.1)
[2021-07-13] MEDS ORDERED: SODIUM CHLORIDE 0.9% 1000ML 2,000 ML IV ONE (19:28)
[2021-07-13 19:37] LABS: Beta-Hydroxybutyrate 2.06 mg/dl (0.2-2.81)
[2021-07-13] MEDS ORDERED: ONDANSETRON INJ 2 MG/ML 2 ML VIAL IV PRN (21:51)
[2021-07-13] MEDS ORDERED: ACETAMINOPHEN 325 MG TAB PO PRN (21:51)
[2021-07-13] MEDS ORDERED: oxyCODONE HCL IR 5 MG TAB (IMMEDIATE RELEASE) PO PRN (21:51)
[2021-07-13] MEDS ORDERED: PIPERACILL/TAZOBAC CONSULT ACTIVE PRN (21:51)
[2021-07-13] MEDS ORDERED: POLYETHYLENE (MIRALAX) 17 GM PACK PO PRN (21:51)
[2021-07-13] MEDS: SODIUM CHLORIDE 0.9% 1000ML 1,000 ML IV SCH (21:55)
[2021-07-13] MEDS ORDERED: INSULIN ASPART 100 UNITS/ML 3 ML PEN SC SCH (22:15)
[2021-07-13] MEDS ORDERED: PIPERACILLIN/TAZOBACTAM 4.5 GM in DEXTROSE 5% 100 ML IV ONE (22:15)
[2021-07-13] MEDS ORDERED: METOPROLOL SUCC 25MG EXT REL TAB PO SCH (22:15)
[2021-07-13] MEDS ORDERED: amLODIPine BESYLATE 5 MG TAB PO SCH (22:15)
[2021-07-13] MEDS: clonazePAM 0.25 MG TAB PO SCH (22:48)
[2021-07-13] MEDS: GABAPENTIN 100 MG CAP PO SCH (22:48)
[2021-07-13] MEDS: PANTOprazole 40 MG TAB PO SCH (22:49)
--- NOTE | 2021-07-13 23:26 | History and Physical Report ---
DATE OF ADMISSION: 07/13/2021. CHIEF COMPLAINT: Left great toe infection. HISTORY OF PRESENT ILLNESS: This is a 56-year-old female with past medical history significant for diabetes, diabetic neuropathy, diabetic retinopathy, nontoxic multinodular goiter, postsurgical hypothyroidism, vocal cord paralysis and right sided gastroparesis, idiopathic scoliosis, enchondroma femur, history of herpes simplex infection, major depression, family history of ovarian cancer, generalized anxiety disorder, history of thyroid cancer, status post surgery. The patient recently about last month in June, she had a left foot distal phalanx amputation for osteomyelitis. The patient says since the last few days, she noticed some blistering, pain and redness and warmth in that region and she was advised to come to the hospital. Denies any fevers. Able to ambulate on her leg. Denies any other problems. Currently, resting comfortably and hemodynamically stable. Denies any headache, no dizziness, no blurred vision, no earache, no runny nose, no sore throat. Appetite is okay. No difficulty swallowing. No chest pain or shortness of breath. No cough, no nausea, no vomiting, no abdominal pain, normal bowel and bladder movements. ALLERGIES: ADHESIVE TAPE. PAST MEDICAL HISTORY: As mentioned above. PAST SURGICAL HISTORY: Colonoscopy with biopsy, EGD with biopsy, laryngoplasty, laryngoscopy, vocal cord injection on the right side, total thyroidectomy, 8- inch tumor removed from left femur, bilateral cataract surgery, cholecystectomy. MEDICATIONS: The patient is on Tylenol 650 mg p.o. q. 4 hours p.r.n., amlodipine 2.5 mg q.p.m., aspirin 81 mg p.o. a.m., clonazepam 0.25 mg p.o. b.i.d., gabapentin 100 mg p.o. t.i.d., Humulin 70/30, as directed insulin pump, levothyroxine 175 mcg p.o. a.m., metformin 1000 mg p.o. b.i.d., metoprolol succinate 37.5 mg p.o. p.m., omeprazole 20 mg p.o. b.i.d., oxycodone 5 mg p.o. q. 4 hours p.r.n., rosuvastatin 40 mg p.o. a.m., Effexor XR 150 mg p.o. a.m. FAMILY HISTORY: Significant for father of [place]; mother, hospice care for ovarian cancer. SOCIAL HISTORY: . No smoking, alcohol, no drug use. REVIEW OF SYSTEMS: As per HPI. Rest of review of systems is negative. PHYSICAL EXAMINATION: GENERAL: The patient is of moderate build, not in acute distress. VITAL SIGNS: Temperature 36.8, pulse 91, respiratory rate 19, blood pressure 137/67, oxygen 100% on room air. HEENT: Pupils equal, round and reactive to light. Oral mucosa moist. NECK: No JVD, no neck masses. CARDIOVASCULAR: S1 and S2 heard. Regular rate and rhythm. No murmur, no gallop. RESPIRATORY SYSTEM: Normal AP diameter. No accessory muscle use. No wheezing, no crackles. ABDOMEN: Soft, bowel sounds present, nontender, no distention. CENTRAL NERVOUS SYSTEM: Cranial nerves II-XII grossly intact, nonfocal. EXTREMITIES: Left lower extremity, the great toe amputation site is slightly swollen and erythematous and slight tender on palpation. LABORATORY DATA: WBC 8.4, hemoglobin 12.9, hematocrit 40.3, platelets 307. Sodium 138, potassium 4.8, chloride 105, bicarbonate 25, BUN 22, creatinine 1.4, serum glucose 329. Lactate 2.1, calcium 8.1, . SARS-CoV-2 PCR negative. Toe x- ray, status post left 1st digit amputation, osseous irregularity of the distal remaining portion, phalanx of the first toe shown only on lateral projection. This could reflect postsurgical change or osteomyelitis. ASSESSMENT AND PLAN: This is a 56-year-old female who presents with infection of the left great toe amputation site. 1. Left great toe amputation site infection, possibly again recurrence of osteomyelitis. Empirically starting on vancomycin and Zosyn. N.p.o. after midnight, IV fluids. Consult orthopedics in the a.m. for further recommendations. 2. Diabetes. We will hold the metformin. We will hold her insulin pump. The patient is okay for holding insulin pump. Lantus insulin sliding scale. We will monitor blood sugar. Currently, patient will be n.p.o. from midnight. The patient seems to have chronic elevated lactic acid that was at last admission. Could be chronic, could be from acute from ongoing infection. Possible secondary to metformin. We will need to stop the metformin for now and follow out patient. 3. History of thyroid cancer, status post thyroidectomy. 4. Postsurgical hypothyroidism. Continue Synthroid. 5. Depression, anxiety. Continue her on Klonopin and Effexor. 6. Gastroesophageal reflux disease. Continue omeprazole. 7. Hypertension. Amlodipine and metoprolol succinate. We will monitor the blood pressure. 8. History of branch vessel coronary artery disease with cardiac catheterization in December 2015. . Chronic right bundle-branch block. On aspirin, statin, metoprolol. Currently stable. 9. Deep venous thrombosis prophylaxis. We will place on sequential compression devices for now if no plans for procedure to start on heparin subQ. DISPOSITION: We will monitor in the medical floor. PT/OT prior to discharge. Social service to help with discharge planning. Level 1 full code. Job ID: [id number]
--- NOTE | 2021-07-14 01:45 | Emergency Department Note ---
History of Present Illness General Chief complaint: Infection, Wound Stated complaint: BIG TOE AMPUTATED ON LEFT FOOT - POSSIBLY INFECTED Time Seen by Provider: 07/13/21 18:33 History of Present Illness Provider complaint: Left toe infection Onset (ago): day(s) 3 Location: lower extremity and left Radiation: non-radiation Severity: moderate Pain Consistency: + constant Maximum Pain Intensity: 6 Current Pain Intensity: 6 Quality: + aching Relieved By: + none Exacerbated By: + none Associated symptoms: + rash; no fever/chills, no headaches, no nausea/vomiting or no shortness of breath 56-year-old female presents emergency department for left toe infection. Patient states 3 weeks ago [facility] conducted a partial amputation of her left great toe. She states 3 days ago she started noticing redness and s welling over her stump. She denies any fevers. No discharge. Patient states she was told to come to the emergency department by Dr. Chance [facility]. Home Medications Medication Instructions Recorded Confirmed Type aspirin 81 mg tablet,delayed 81 mg PO QAM 02/18/19 07/13/21 History release levothyroxine 175 mcg tablet 175 mcg PO QAM 02/18/19 07/13/21 History metformin 1,000 mg tablet,extended 1,000 mg PO BID 02/18/19 07/13/21 History release 24hr omeprazole 20 mg tablet,delayed 20 mg PO BID 02/18/19 07/13/21 History release amlodipine 2.5 mg tablet 2.5 mg PO QPM 03/27/19 07/13/21 History insulin human U-100 NPH-regulr See Rx Instructions .ROUTE .COMPLEX 03/27/19 07/13/21 History 70-30 mix 100 unit/mL subcutaneous susp (Humulin 70/30 U-100 Insulin) gabapentin 100 mg capsule 100 mg PO TID 07/21/19 07/13/21 History clonazepam 0.5 mg tablet 0.25 mg PO BID #60 tab 03/19/21 07/13/21 Rx metoprolol succinate 25 mg 37.5 mg PO QPM 05/24/21 07/13/21 History tablet,extended release 24 hr rosuvastatin 40 mg tablet 40 mg PO QAM 05/24/21 07/13/21 History acetaminophen 325 mg tablet 650 mg PO Q4H PRN #90 tab 05/27/21 07/13/21 Rx oxycodone 5 mg tablet 5 mg PO Q4H PRN #30 tab 05/27/21 07/13/21 Rx venlafaxine 150 mg 150 mg PO QAM 05/28/21 07/13/21 History capsule,extended release 24 hr (Effexor XR) Allergies Allergy/AdvReac Type Severity Reaction Status Date / Time adhesive tape Allergy Mild PER PT Verified 07/13/21 19:32 "GLUE ON TAPE"--SKIN IRRITATION Past Med/Surg History Medical History Amputation of toe Anxiety Benign neoplasm of vulva of clitoris CAD (coronary artery disease) Depression Diabetes mellitus, type II insulin pump History of thyroid cancer with surgical intervention Hypertension Myocardial Infarction 12 YEARS AGO (FOLLOWED BY DR. DODSON) VERBALIZED NO HEART CATH DONE Peripheral neuropathy Restless leg syndrome Schwannoma REMOVED BY DR. GROSSMAN MARCH 2018 Stroke 7 YEARS AGO (LEFT SIDE WEAKNESS/LEFT EYE DROOPING) > follows with a neurologist unsure of name Suicidal ideation improving Tumor LEFT FEMUR (BENIGN) 2 TUMORS REMOVED > several yrs ago Vulvitis Surgical History Family history of reaction to anesthesia BROTHER-NAUSEA H/O blepharoplasty RT/LEFT History of anesthesia reaction SLOW TO WAKE UP History of cholecystectomy History of colonoscopy History of esophagogastroduodenoscopy (EGD) History of neck surgery anterior cervical discectomy with bilateral foraminotomies C6-7. #2 anterior cervical arthrodesis C6-7. #3 placement of titanium 9.9 mm cage filled with DBM and C6-7. #4 occasional hernandez plate and screws across C6-7 >> ROM no limitations History of surgery robot-assist left thorascopic resection of schwannoma from left upper mediastinum. 03/16/2018. SANG. A line. No issues. History of thyroidectomy, total History of tonsillectomy History of tooth extraction S/P LASIK surgery of both eyes Status post hysteroscopic ablation of endometrium Family History Grandmother (Maternal) Family history of diabetes mellitus Mother Ovarian cancer Father Myocardial infarction Social History Smoking Status: Never smoker Second Hand Exposure: No; Hx Alcohol Use: Yes Alcohol type: wine Hx Substance Use: No Preferred Language: Bruneian Communication Ability: Effective Computer Discovery Teacher Required: No Beliefs That Will Affect Care: None marital status: / Current Living Situation: Alone Other Information That Helps Us Care for You: No Feels Safe at Home: Yes Safety Concerns: Feels Safe At This Time Assistive Devices: Denture - Upper, Denture - Lower and Glasses Review of Systems A total of 10 systems reviewed and were otherwise negative Physical Exam Vital Signs Vital Signs - 24 hr 07/13/21 17:50 07/13/21 18:30 07/13/21 18:33 Temperature 36.2 C L Temperature Source Temporal Artery Scan Pulse Rate 94 H 89 Pulse Rate [Left] 95 H Pulse Rhythm Regular Pulse Rhythm [Left] Regular Pulse Strength [Left] Normal Respiratory Rate 18 18 19 Respiratory Effort / Characteristics Non-Labored Non-Labored Respiratory Depth Normal Normal Respiratory Pattern Regular Blood Pressure 146/63 H Blood Pressure [Left Arm] 129/65 Blood Pressure Mean 90 Blood Pressure Mean [Left Arm] 86 Blood Pressure Position [Left Arm] Lying Pulse Oximetry 97 98 99 Oxygen Delivery Method Room Air Room Air Room Air Sepsis Recent Fever Within 48 Hours No Sepsis New/Unexplained Change in Mental Status No Sepsis Action Taken by Nursing No Action Required 07/13/21 20:00 Temperature 36.8 C Temperature Source Oral Pulse Rate Pulse Rate [Left] 84 Pulse Rhythm Pulse Rhythm [Left] Regular Pulse Strength [Left] Normal Respiratory Rate 18 Respiratory Effort / Characteristics Non-Labored Respiratory Depth Normal Respiratory Pattern Blood Pressure Blood Pressure [Left Arm] 116/64 Blood Pressure Mean Blood Pressure Mean [Left Arm] 81 Blood Pressure Position [Left Arm] Lying Pulse Oximetry 99 Oxygen Delivery Method Room Air Sepsis Recent Fever Within 48 Hours Sepsis New/Unexplained Change in Mental Status Sepsis Action Taken by Nursing Physical Exam GENERAL: She is oriented to person, place, and time. She appears well-developed and well-nourished. She does not appear distressed. HENT: Exam performed. -Head: Normocephalic and atraumatic. -Right Ear: External ear normal. No mastoid tenderness. -Left Ear: External ear normal. No mastoid tenderness. -Mouth/Throat: The oropharynx is clear and moist. No trismus in the jaw. No dental abscesses or uvula swelling. No oropharyngeal exudate or tonsillar abscesses. EYES: Conjunctivae and EOM are normal. Pupils are equal, round, and reactive to light. Right eye exhibits no discharge. Left eye exhibits no discharge. No scleral icterus. NECK: Normal range of motion. Neck supple. No JVD present. No spinous process tenderness present. No carotid bruit present. No rigidity. No tracheal deviation and normal range of motion present. No Brudzinski's sign and no Kernig's sign noted. CV: Normal rate, regular rhythm, normal heart sounds and intact distal pulses. There is no peripheral edema. Palpable radial pulses bue. PULM/CHEST: Effort normal and breath sounds normal. No respiratory distress. No stridor. She has no wheezes. She has no rales. -Chest Wall: She exhibits no tenderness. ABD: The abdomen is soft. Bowel sounds are normal. She has no distension. No mass is present. There is no tenderness. There is no rebound, no guarding, no Marcial's sign and no tenderness at McBurney's point. Rovsig negative MUSC/SKEL: Left foot: Palpable DP and PT pulse. Left great toe stump is erythematous and swollen. Tender to touch. No discharge or crepitus. Right lower extremity within normal limits. LYMPH: No cervical adenopathy. NEURO: She is alert and oriented to person, place, and time. She has normal strength. No cranial nerve deficit or sensory deficit. Coordination and gait normal. GCS eye subscore is 4. GCS verbal subscore is 5. GCS motor subscore is 6. Cerebellar tests wnl. SKIN: Skin is warm and dry. She is not diaphoretic. PSYCH: She has a normal mood and affect. Behavior is normal. Judgment and thought content normal. Course Course 183: The patient was evaluated in room C7. A complete history and physical exam was performed Cardiac monitoring: An order was placed for continuous cardiac monitoring. The monitor shows a rate of 70 with sinus rhythm 1924: Vital signs stable. Imaging shows possible osteomyelitis. No white blood cell count elevation however the patient's lactic acid is elevated at 3.9. 30 cc/kg IV fluid bolus ordered for the patient. Patient was given vancomycin for the possible osteomyelitis. [facility]. Dr. Persaud notified Administered Medications Amlodipine Besylate (Amlodipine Besylate 5 Mg Tab) 2.5 mg PO QPM WILLIAM Stop: 08/12/21 22:14 Last Admin: 07/13/21 22:48 Dose: Not Given Documented by: [id number] Clonazepam (Clonazepam 0.25 Mg Tab) 0.25 mg PO BID WILLIAM Stop: 08/12/21 22:14 Last Admin: 07/13/21 22:48 Dose: Not Given Documented by: [id number] Gabapentin (Gabapentin 100 Mg Cap) 100 mg PO TID WILLIAM Stop: 08/12/21 22:14 Last Admin: 07/13/21 22:48 Dose: Not Given Documented by: [id number] Sodium Chloride (Nss 1000ml) 1,000 mls @ 100 mls/hr IV .Q10H WILLIAM Stop: 07/14/21 17:50 Last Infusion: 07/13/21 23:55 Dose: 100 mls/hr Documented by: [id number] Admin: 07/13/21 21:55 Dose: 100 mls/hr Documented by: [id number] Metoprolol Succinate (Metoprolol Succ 25mg Ext Rel Tab) 37.5 mg PO QPM WILLIAM Stop: 08/12/21 22:14 Last Admin: 07/13/21 22:49 Dose: Not Given Documented by: [id number] Pantoprazole Sodium (Pantoprazole 40 Mg Tab) 40 mg PO BID [facility]; Protocol Stop: 08/12/21 22:14 Last Admin: 07/13/21 22:49 Dose: Not Given Documented by: [id number] Discontinued Medications Vancomycin HCl 2,000 mg/ (Sodium Chloride) 540 mls @ 200 mls/hr IV NOW ONE Stop: 07/13/21 22:05 Last Infusion: 07/13/21 23:55 Dose: 0 mls/hr Documented by: [id number] Infusion: 07/13/21 23:19 Dose: 0 mls/hr Documented by: [id number] Admin: 07/13/21 20:24 Dose: 200 mls/hr Documented by: [id number] Sodium Chloride (Nss 1000ml) 2,000 mls @ 999 mls/hr IV .Q2H1M ONE Stop: 07/13/21 21:28 Last Infusion: 07/13/21 21:55 Dose: 0 mls/hr Documented by: [id number] Admin: 07/13/21 19:31 Dose: 999 mls/hr Documented by: [id number] Piperacillin Sod/Tazobactam (Sod 4.5 gm/ Dextrose) 120 mls @ 200 mls/hr IV ONE ONE; Protocol Stop: 07/13/21 22:50 Last Infusion: 07/13/21 23:55 Dose: 0 mls/hr Documented by: [id number] Admin: 07/13/21 23:19 Dose: 200 mls/hr Documented by: [id number] Insulin Aspart (Insulin Aspart 100 Units/Ml 3 Ml Pen) 0 units SC ACHS WILLIAM Stop: 08/12/21 22:14 Last Admin: 07/13/21 23:34 Dose: Not Given Documented by: [id number] Cosigned by: [id number] Medical Decision Making Laboratory Data Result diagrams: 07/13/21 18:45 07/13/21 18:45 Lab Results 07/13/21 07/13/21 07/13/21 Range/Units 18:45 18:45 18:45 WBC 8.47 (4.8-10.8) K/uL RBC 4.49 (4.2-5.4) M/uL Hgb 12.9 (12.0-16.0) g/dL Hct 40.3 (37-47) % MCV 89.8 (80-100) fL MCH 28.7 (25-34) pg MCHC 32.0 (32-36) g/dL RDW Std Deviation 47.0 H (36.4-46.3) fL RDW Coeff of Daphney 14.2 (11.5-14.5) % Plt Count 307 (130-400) K/uL MPV 9.8 (7.4-10.4) fL Immature Gran % (Auto) 0.2 % Neut % (Auto) 53.4 % Lymph % (Auto) 36.0 % Logan % (Auto) 6.3 % Eos % (Auto) 3.5 % Baso % (Auto) 0.6 % Neut # (Auto) 4.52 (1.4-6.5) K/uL Lymph # (Auto) 3.05 (1.2-3.4) K/uL Logan # (Auto) 0.53 (0.11-0.59) K/uL Eos # (Auto) 0.30 (0-0.5) K/uL Baso # (Auto) 0.05 (0-0.2) K/uL Immature Gran # (Auto) 0.02 (0.00-0.02) K/uL Sodium 138 (136-145) mmol/L Potassium 4.8 (3.5-5.1) mmol/L Chloride 105 (98-107) mmol/L Carbon Dioxide 25 (21-32) mmol/L Anion Gap 8.0 (3-11) BUN 22 H (7-18) mg/dl Creatinine 1.46 H (0.6-1.2) mg/dl Est Cr Clr Drug Dosing 47.4 ml/min Est GFR ( Amer) 45.5 ml/min Est GFR (Non-Af Amer) 39.3 ml/min BUN/Creatinine Ratio 15.4 (10-20) Glucose 329 H* (70-99) mg/dl Lactate 3.9 H* (0.4-2.0) mmol/L Calcium 8.1 L (8.5-10.1) mg/dl Beta-Hydroxybutyric Acd 2.06 (0.2-2.81) mg/dl COVID-19 Eval Order SARS-CoV-2 (PCR) (Negative) 07/13/21 07/13/21 07/13/21 Range/Units 19:40 19:40 20:42 WBC (4.8-10.8) K/uL RBC (4.2-5.4) M/uL Hgb (12.0-16.0) g/dL Hct (37-47) % MCV (80-100) fL MCH (25-34) pg MCHC (32-36) g/dL RDW Std Deviation (36.4-46.3) fL RDW Coeff of Daphney (11.5-14.5) % Plt Count (130-400) K/uL MPV (7.4-10.4) fL Immature Gran % (Auto) % Neut % (Auto) % Lymph % (Auto) % Logan % (Auto) % Eos % (Auto) % Baso % (Auto) % Neut # (Auto) (1.4-6.5) K/uL Lymph # (Auto) (1.2-3.4) K/uL Logan # (Auto) (0.11-0.59) K/uL Eos # (Auto) (0-0.5) K/uL Baso # (Auto) (0-0.2) K/uL Immature Gran # (Auto) (0.00-0.02) K/uL Sodium (136-145) mmol/L Potassium (3.5-5.1) mmol/L Chloride (98-107) mmol/L Carbon Dioxide (21-32) mmol/L Anion Gap (3-11) BUN (7-18) mg/dl Creatinine (0.6-1.2) mg/dl Est Cr Clr Drug Dosing ml/min Est GFR ( Amer) ml/min Est GFR (Non-Af Amer) ml/min BUN/Creatinine Ratio (10-20) Glucose (70-99) mg/dl Lactate 2.1 H* (0.4-2.0) mmol/L Calcium (8.5-10.1) mg/dl Beta-Hydroxybutyric Acd (0.2-2.81) mg/dl COVID-19 Eval Order Covid19 at [facility] SARS-CoV-2 (PCR) NEGATIVE (Negative) Imaging Data Radiologist's Impression: Toe X-Ray 07/13/21 18:42 XR toe(s) LT min 2V CLINICAL HISTORY: great toe infection COMPARISON: Left foot radiographs June 19, 2021. FINDINGS: Amputation of the left first toe is noted. Postoperative appearance is unchanged since radiograph June 19, 2021. Lateral view demonstrates osseous irregularity at the level of the amputation within the distal remaining portion of the proximal phalanx of the left first toe. There is no acute fracture. IMPRESSION: Status post left first digit amputation. Osseous irregularity within the distal remaining portion of the proximal phalanx of the left first toe shown only on lateral projection. This could reflect postsurgical change or osteomyelitis. ACT 112: Negative or not required by law. Electronically signed by: Erik Roman M.D. 07/13/2021 7:03 PM MDM Narrative Vital signs stable. Imaging shows possible osteomyelitis. No white blood cell count elevation however the patient's lactic acid is elevated at 3.9. 30 cc/kg IV fluid bolus ordered for the patient. Patient was given vancomycin for the possible osteomyelitis. [facility] be [facility]. Dr. Persaud notified Impression & Plan Osteomyelitis Discharge Plan Visit Data Chief Complaint: Infection, Wound Stated Complaint: BIG TOE AMPUTATED ON LEFT FOOT - POSSIBLY INFECTED Discharge Problem: Osteomyelitis Patient Disposition: Admitted As Inpatient Discharge Instructions Interventions: ED Discharge Assessment Last Done: 07/13/21 21:28
[2021-07-14] MEDS: PIPERACILLIN/TAZOBACTAM 3.375 GM in DEXTROSE 5% 100 ML IV SCH ×2 (03:50→12:30)
[2021-07-14] MEDS ORDERED: INSULIN ASPART 100 UNITS/ML 3 ML PEN SC SCH ×2 (06:00→11:30)
[2021-07-14 06:30] LABS: Basophils # (auto) 0.06 K/uL (0-0.2); Basophils % (auto) 0.9 %; Eosinophils # (auto) 0.38 K/uL (0-0.5); Eosinophils % (auto) 5.5 %; Hematocrit (blood only) 36.2 % (37-47); Hemoglobin 11.5 g/dL (12.0-16.0); Immature Granulocytes # (auto) 0.01 K/uL (0.00-0.02); Immature Granulocytes % (auto) 0.1 %; Lymphocytes # (auto) 2.24 K/uL (1.2-3.4); Lymphocytes % (auto) 32.5 %; Mean Corpuscular Hemoglobin 28.4 pg (25-34); Mean Corpuscular Hgb Conc 31.8 g/dL (32-36); Mean Corpuscular Volume 89.4 fL (80-100); Mean Platelet Volume 9.6 fL (7.4-10.4); Monocytes % (auto) 11.6 %; Neutrophils % (auto) 49.4 %; Platelet Count 280 K/uL (130-400); RDW Coefficient of Variation 14.3 % (11.5-14.5); RDW Standard Deviation 47.2 fL (36.4-46.3); Red Blood Count 4.05 M/uL (4.2-5.4); White Blood Count 6.89 K/uL (4.8-10.8)
[2021-07-14] MEDS ORDERED: LEVOTHYROXINE SODIUM 175 MCG TABLET PO SCH (06:30)
[2021-07-14 06:51] LABS: BUN Creatinine Ratio 15.7 (10-20); Calcium 7.6 mg/dl (8.5-10.1); Creatinine Clr Calc Pharmacy 71.2 ml/min; Est GFR (African American) 70.2 ml/min; Est GFR (Non-African American) 60.6 ml/min; Magnesium 1.5 mg/dl (1.8-2.4)
[2021-07-14] MEDS: SODIUM CHLORIDE 0.9% 1000ML 1,000 ML IV SCH (07:35)
--- NOTE | 2021-07-14 07:45 | Pharmacy Report ---
Pharmacy Vanc AUC Short Note - Date of Service July 14, 2021 - Assessment & Plan Laboratory Tests 07/13/21 07/14/21 07/14/21 18:45 06:10 06:10 Creatinine 1.46 H 1.02 Est Cr Clr Drug Dosing 47.4 71.2 Random Vancomycin 13.0 Assessment 56 year old F receiving VANC-iv for treatment of INFECTED L GREAT TOE (AMPUTATION SITE)[]. Day # 2/of antimicrobial therapy. Plan Vancomycin * AUC/MAGDA is the preferred PK/PD target for vancomycin * AUC guided dosing is effective and associated with decreased risk of nephrotoxicity compared to traditional trough targets * Trough level of 18 mcg/mL is predicted to achieve target AUC/MAGDA of 400-600 mg/L.hr * MAINTENANCE DOSE: Vanc 1000mg (11mg/kg) IV q12h * Trough level ordered @ [facility] for: 07/15/21 @ 2000 dose Zosyn: Continues 3.375g IV q 8 hours Pharmacy will continue to follow and will adjust dose/frequency as necessary. Thank you.
[2021-07-14] MEDS ORDERED: VANCOMYCIN HCL 1,000 MG in SODIUM CHLORIDE 0.9% 250 ML IV SCH (08:00)
[2021-07-14 08:10] VITALS: BP 111/74; PULSE 74; TEMP 97.7; O2SAT 93
[2021-07-14] MEDS: MAGNESIUM SULFATE / D5W 1 GM/100 ML BAG IV SCH ×2 (08:18→10:22)
[2021-07-14] MEDS: GABAPENTIN 100 MG CAP PO SCH ×2 (08:24→14:16)
[2021-07-14] MEDS: PANTOprazole 40 MG TAB PO SCH (08:24)
[2021-07-14] MEDS: clonazePAM 0.25 MG TAB PO SCH (08:33)
[2021-07-14] MEDS ORDERED: ASPIRIN 81 MG ECTAB PO SCH (09:00)
[2021-07-14] MEDS ORDERED: INSULIN GLARGINE SOLOSTAR 100 UNITS/ML 3 ML PEN SC SCH (09:00)
[2021-07-14] MEDS ORDERED: ROSUVASTATIN CALCIUM 20 MG TAB PO SCH (09:00)
[2021-07-14] MEDS ORDERED: VENLAFAXINE HCL XR 150 MG CAPXR PO SCH (09:00)
--- NOTE | 2021-07-14 09:56 | Hospitalist Progress Note ---
Date of Service July 14, 2021 Assessment & Plan (1) Osteomyelitis of great toe of left foot: Plan: This is a 56-year-old female who presents with infection of the left great toe amputation site. 1. Left great toe amputation site infection, possibly again recurrence of osteomyelitis. Left Toe X-ray - Status post left first digit amputation. Osseous irregularity within the distal remaining portion of the proximal phalanx of the left first toe shown only on lateral projection. This could reflect postsurgical change or osteomyelitis. ESR 21, CRP 0.35 Empirically started on vancomycin and Zosyn. N.p.o. for now until seen by ortho pedics, IV fluids. Orthopedics consulted for further recommendations. Awaiting their eval. 2. Diabetes. We will hold the metformin. We will hold her insulin pump. The patient is okay for holding insulin pump. Lantus insulin sliding scale. We will monitor blood sugar. Currently, patient is n.p.o. from midnight. The patient seems to have chronic elevated lactic acid that was at last admission. Could be chronic, could be from acute from ongoing infection. Possible secondary to metformin. We will need to stop the metformin for now and follow out patient. EBONY - resolved Cr on admission 1.5 Current Cr 1 Hypomagnesemia Currently Mag 1.5 - replete and monitor 3. History of thyroid cancer, status post thyroidectomy. 4. Postsurgical hypothyroidism. Continue Synthroid. 5. Depression, anxiety. Continue her on Klonopin and Effexor. 6. Gastroesophageal reflux disease. Continue omeprazole. 7. Hypertension. Amlodipine and metoprolol succinate. We will monitor the blood pressure. 8. History of branch vessel coronary artery disease with cardiac catheterization in December 2015. 9. Chronic right bundle-branch block. On aspirin, statin, metoprolol. Currently stable. DVT prophylaxis. SCDs for now if no plans for procedure to start on heparin subQ. DISPOSITION: medical floor. PT/OT prior to discharge. Social service to help with discharge planning. Code: Full Admission and Anticipated Discharge Date Admission Date: July 13, 2021 Subjective Patient seen in follow-up of great toe pain, infection/poss. osteomyelitis Currently patient is sitting up in bed, in no acute distress Denies any fevers, chills, chest pain, shortness of breath, abdominal pain, nausea vomiting Reports pain in the great toe Review of Systems Review of Systems: All systems reviewed & are unremarkable except as noted in Subjective Physical Exam Physical Exam: GENERAL: The patient is of moderate build, not in acute distress. HEENT: NC/AT, EOMI, Pupils equal, round and reactive to light. NECK: No JVD, no neck masses. CARDIOVASCULAR: S1 and S2 heard. Regular rate and rhythm. No murmur, no gallop. RESPIRATORY: Normal AP diameter. No accessory muscle use. No wheezing, no crackles. ABDOMEN: Soft, bowel sounds present, nontender, no distention. NEURO: alert and oriented x3, speech fluent, no facial asymmetry, moves extremities EXTREMITIES: Left lower extremity, the great toe amputation site is slightly swollen and erythematous and slight tender on palpation. Results & Data Results & Data ([facility]) Vital Signs (Past 12 Hours) Vital Signs Temp Pulse Resp BP Pulse Ox 07/14/21 07:35 36.5 C 74 18 111/74 93 Laboratory Results 07/14/21 07/14/21 07/14/21 Range/Units 06:10 06:10 06:10 WBC (4.8-10.8) K/uL RBC (4.2-5.4) M/uL Hgb (12.0-16.0) g/dL Hct (37-47) % MCV (80-100) fL MCH (25-34) pg MCHC (32-36) g/dL RDW Std Deviation (36.4-46.3) fL RDW Coeff of Daphney (11.5-14.5) % Plt Count (130-400) K/uL MPV (7.4-10.4) fL Immature Gran % (Auto) % Neut % (Auto) % Lymph % (Auto) % Bremer % (Auto) % Eos % (Auto) % Baso % (Auto) % Neut # (Auto) (1.4-6.5) K/uL Lymph # (Auto) (1.2-3.4) K/uL Bremer # (Auto) (0.11-0.59) K/uL Eos # (Auto) (0-0.5) K/uL Baso # (Auto) (0-0.2) K/uL Immature Gran # (Auto) (0.00-0.02) K/uL ESR 21 (0-30) mm/hr Sodium 140 (136-145) mmol/L Potassium 5.0 (3.5-5.1) mmol/L Chloride 109 H (98-107) mmol/L Carbon Dioxide 28 (21-32) mmol/L Anion Gap 3.0 (3-11) BUN 16 (7-18) mg/dl Creatinine 1.02 (0.6-1.2) mg/dl Est Cr Clr Drug Dosing 71.2 ml/min Est GFR ( Amer) 70.2 ml/min Est GFR (Non-Af Amer) 60.6 ml/min BUN/Creatinine Ratio 15.7 (10-20) Glucose 206 H (70-99) mg/dl POC Glucose (70-99) mg/dl Lactate (0.4-2.0) mmol/L Calcium 7.6 L (8.5-10.1) mg/dl Magnesium 1.5 L (1.8-2.4) mg/dl C-Reactive Protein 0.35 H (0-0.29) mg/dl Beta-Hydroxybutyric Acd (0.2-2.81) mg/dl Random Vancomycin mcg/ml COVID-19 Eval Order SARS-CoV-2 (PCR) (Negative) 07/14/21 07/14/21 07/14/21 Range/Units 06:10 06:10 06:02 WBC 6.89 (4.8-10.8) K/uL RBC 4.05 L (4.2-5.4) M/uL Hgb 11.5 L (12.0-16.0) g/dL Hct 36.2 L (37-47) % MCV 89.4 (80-100) fL MCH 28.4 (25-34) pg MCHC 31.8 L (32-36) g/dL RDW Std Deviation 47.2 H (36.4-46.3) fL RDW Coeff of Daphney 14.3 (11.5-14.5) % Plt Count 280 (130-400) K/uL MPV 9.6 (7.4-10.4) fL Immature Gran % (Auto) 0.1 % Neut % (Auto) 49.4 % Lymph % (Auto) 32.5 % Bremer % (Auto) 11.6 % Eos % (Auto) 5.5 % Baso % (Auto) 0.9 % Neut # (Auto) 3.40 (1.4-6.5) K/uL Lymph # (Auto) 2.24 (1.2-3.4) K/uL Bremer # (Auto) 0.80 H (0.11-0.59) K/uL Eos # (Auto) 0.38 (0-0.5) K/uL Baso # (Auto) 0.06 (0-0.2) K/uL Immature Gran # (Auto) 0.01 (0.00-0.02) K/uL ESR (0-30) mm/hr Sodium (136-145) mmol/L Potassium (3.5-5.1) mmol/L Chloride (98-107) mmol/L Carbon Dioxide (21-32) mmol/L Anion Gap (3-11) BUN (7-18) mg/dl Creatinine (0.6-1.2) mg/dl Est Cr Clr Drug Dosing ml/min Est GFR ( Amer) ml/min Est GFR (Non-Af Amer) ml/min BUN/Creatinine Ratio (10-20) Glucose (70-99) mg/dl POC Glucose 207 H (70-99) mg/dl Lactate (0.4-2.0) mmol/L Calcium (8.5-10.1) mg/dl Magnesium (1.8-2.4) mg/dl C-Reactive Protein (0-0.29) mg/dl Beta-Hydroxybutyric Acd (0.2-2.81) mg/dl Random Vancomycin 13.0 mcg/ml COVID-19 Eval Order SARS-CoV-2 (PCR) (Negative) 07/13/21 07/13/21 07/13/21 Range/Units 21:46 20:42 19:40 WBC (4.8-10.8) K/uL RBC (4.2-5.4) M/uL Hgb (12.0-16.0) g/dL Hct (37-47) % MCV (80-100) fL MCH (25-34) pg MCHC (32-36) g/dL RDW Std Deviation (36.4-46.3) fL RDW Coeff of Daphney (11.5-14.5) % Plt Count (130-400) K/uL MPV (7.4-10.4) fL Immature Gran % (Auto) % Neut % (Auto) % Lymph % (Auto) % Bremer % (Auto) % Eos % (Auto) % Baso % (Auto) % Neut # (Auto) (1.4-6.5) K/uL Lymph # (Auto) (1.2-3.4) K/uL Bremer # (Auto) (0.11-0.59) K/uL Eos # (Auto) (0-0.5) K/uL Baso # (Auto) (0-0.2) K/uL Immature Gran # (Auto) (0.00-0.02) K/uL ESR (0-30) mm/hr Sodium (136-145) mmol/L Potassium (3.5-5.1) mmol/L Chloride (98-107) mmol/L Carbon Dioxide (21-32) mmol/L Anion Gap (3-11) BUN (7-18) mg/dl Creatinine (0.6-1.2) mg/dl Est Cr Clr Drug Dosing ml/min Est GFR ( Amer) ml/min Est GFR (Non-Af Amer) ml/min BUN/Creatinine Ratio (10-20) Glucose (70-99) mg/dl POC Glucose 180 H (70-99) mg/dl Lactate 2.1 H* (0.4-2.0) mmol/L Calcium (8.5-10.1) mg/dl Magnesium (1.8-2.4) mg/dl C-Reactive Protein (0-0.29) mg/dl Beta-Hydroxybutyric Acd (0.2-2.81) mg/dl Random Vancomycin mcg/ml COVID-19 Eval Order SARS-CoV-2 (PCR) NEGATIVE (Negative) 07/13/21 07/13/21 07/13/21 Range/Units 19:40 18:45 18:45 WBC (4.8-10.8) K/uL RBC (4.2-5.4) M/uL Hgb (12.0-16.0) g/dL Hct (37-47) % MCV (80-100) fL MCH (25-34) pg MCHC (32-36) g/dL RDW Std Deviation (36.4-46.3) fL RDW Coeff of Daphney (11.5-14.5) % Plt Count (130-400) K/uL MPV (7.4-10.4) fL Immature Gran % (Auto) % Neut % (Auto) % Lymph % (Auto) % Bremer % (Auto) % Eos % (Auto) % Baso % (Auto) % Neut # (Auto) (1.4-6.5) K/uL Lymph # (Auto) (1.2-3.4) K/uL Bremer # (Auto) (0.11-0.59) K/uL Eos # (Auto) (0-0.5) K/uL Baso # (Auto) (0-0.2) K/uL Immature Gran # (Auto) (0.00-0.02) K/uL ESR (0-30) mm/hr Sodium 138 (136-145) mmol/L Potassium 4.8 (3.5-5.1) mmol/L Chloride 105 (98-107) mmol/L Carbon Dioxide 25 (21-32) mmol/L Anion Gap 8.0 (3-11) BUN 22 H (7-18) mg/dl Creatinine 1.46 H (0.6-1.2) mg/dl Est Cr Clr Drug Dosing 47.4 ml/min Est GFR ( Amer) 45.5 ml/min Est GFR (Non-Af Amer) 39.3 ml/min BUN/Creatinine Ratio 15.4 (10-20) Glucose 329 H* (70-99) mg/dl POC Glucose (70-99) mg/dl Lactate 3.9 H* (0.4-2.0) mmol/L Calcium 8.1 L (8.5-10.1) mg/dl Magnesium (1.8-2.4) mg/dl C-Reactive Protein (0-0.29) mg/dl Beta-Hydroxybutyric Acd 2.06 (0.2-2.81) mg/dl Random Vancomycin mcg/ml COVID-19 Eval Order Covid19 at [facility] SARS-CoV-2 (PCR) (Negative) 07/13/21 Range/Units 18:45 WBC 8.47 (4.8-10.8) K/uL RBC 4.49 (4.2-5.4) M/uL Hgb 12.9 (12.0-16.0) g/dL Hct 40.3 (37-47) % MCV 89.8 (80-100) fL MCH 28.7 (25-34) pg MCHC 32.0 (32-36) g/dL RDW Std Deviation 47.0 H (36.4-46.3) fL RDW Coeff of Daphney 14.2 (11.5-14.5) % Plt Count 307 (130-400) K/uL MPV 9.8 (7.4-10.4) fL Immature Gran % (Auto) 0.2 % Neut % (Auto) 53.4 % Lymph % (Auto) 36.0 % Bremer % (Auto) 6.3 % Eos % (Auto) 3.5 % Baso % (Auto) 0.6 % Neut # (Auto) 4.52 (1.4-6.5) K/uL Lymph # (Auto) 3.05 (1.2-3.4) K/uL Bremer # (Auto) 0.53 (0.11-0.59) K/uL Eos # (Auto) 0.30 (0-0.5) K/uL Baso # (Auto) 0.05 (0-0.2) K/uL Immature Gran # (Auto) 0.02 (0.00-0.02) K/uL ESR (0-30) mm/hr Sodium (136-145) mmol/L Potassium (3.5-5.1) mmol/L Chloride (98-107) mmol/L Carbon Dioxide (21-32) mmol/L Anion Gap (3-11) BUN (7-18) mg/dl Creatinine (0.6-1.2) mg/dl Est Cr Clr Drug Dosing ml/min Est GFR ( Amer) ml/min Est GFR (Non-Af Amer) ml/min BUN/Creatinine Ratio (10-20) Glucose (70-99) mg/dl POC Glucose (70-99) mg/dl Lactate (0.4-2.0) mmol/L Calcium (8.5-10.1) mg/dl Magnesium (1.8-2.4) mg/dl C-Reactive Protein (0-0.29) mg/dl Beta-Hydroxybutyric Acd (0.2-2.81) mg/dl Random Vancomycin mcg/ml COVID-19 Eval Order SARS-CoV-2 (PCR) (Negative)
--- NOTE | 2021-07-14 11:13 | Consultation Report ---
DATE OF SERVICE: 07/14/2021 I was consulted to see the patient about her left big toe. She is status post surgery with Dr. Estela Triplett on 06/13/2021 for osteomyelitis of the left big toe. She called the service yesterday noting t hat the wound did not look good, that there was a blister and drainage. She was instructed to come t o the Emergency Room where she was admitted by the medical service. She is currently on intravenous vancomycin. She reports that the toe is doing much better. The blister has gone down and there is n o further drainage. She did report that there was some drainage. Her past medical history is reviewed and noted. She has multiple medical problems including diabetes , anxiety, high blood pressure, stroke, neuropathy, coronary artery disease, obsessive compulsive dis order. Her allergies and medications are also noted and reviewed. SHE IS ALLERGIC TO ADHESIVE TAPE. She is afebrile. Her vital signs are stable. Her white count is normal. Radiographs show absence o f the distal phalanx. There is no clear evidence of ongoing osteomyelitis. There is no fracture. T he report is noted. On examination, the wound is benign. There is no blister evident. The place on the medial side wher e she states she saw a blister, which has now gone away, looks normal. There is very faint erythema of the toe and minimal swelling. Toward the lateral side of the toe, there is some very minimal escha r consistent with a healing wound along with some dried skin. There is no fluctuance. There is no a ctive drainage or purulence. There is minimal tenderness to firm palpation. She can wiggle the toe. The wound is completely closed. IMPRESSION: Wound problem status post toe amputation, left big toe. PLAN: Findings are discussed. I think the radiographic findings are postsurgical in nature. Clinic ally, the foot looks benign. She reports improvement being on the IV antibiotics. I think there are 2 options available, one is that she could stay here in the hospital and be followed up with Dr. Anthony Castro tomorrow. The other option I think given the benign nature of the toe is to discharge her ho me on some oral antibiotics and have her follow up with Dr. Davila as an outpatient. She could c ontinue her previous treatment. She actually wants to go home after her antibiotics are done. We wi ll coordinate care with Dr. Davila. Job ID: [id number]
[2021-07-14] MEDS ORDERED: Nursing to Pharmacy Communication SCH (11:45)
[2021-07-14] MEDS ORDERED: ADVANCED PROBIOTIC 1250 MG CAPSULE PO SCH (13:00)
--- NOTE | 2021-07-14 13:02 | Hospitalist Progress Note ---
Date of Service July 14, 2021 Assessment & Plan Admission and Anticipated Discharge Date Admission Date: July 13, 2021 Subjective By CMS guidelines, a determination that the admission or continued stay is not medically necessary has been made by a member of the UR committee and a physician for this hospital stay, therefore a Code 44 will be completed and the Inpatient admission will be changed to outpatient. MD Nik Results & Data Results & Data ([facility]) Vital Signs (Past 12 Hours) Vital Signs Temp Pulse Resp BP Pulse Ox 07/14/21 07:35 36.5 C 74 18 111/74 93
--- NOTE | 2021-07-14 13:02 | Discharge Summary ---
Date of Service July 14, 2021 Admission HPI Per Admitting Provider This is a 56-year-old female with past medical history significant for diabetes, diabetic neuropathy, diabetic retinopathy, nontoxic multinodular goiter, postsurgical hypothyroidism, vocal cord paralysis and right sided gastroparesis, idiopathic scoliosis, enchondroma femur, history of herpes simplex infection, major depression, family history of ovarian cancer, generalized anxiety disorder, history of thyroid cancer, status post surgery. The patient recently about last month in June, she had a left foot distal phalanx amputation for osteomyelitis. The patient says since the last few days, she noticed some blistering, pain and redness and warmth in that region and she was advised to come to the hospital. Denies any fevers. Able to ambulate on her leg. Denies any other problems. Currently, resting comfortably and hemodynamically stable. Denies any headache, no dizziness, no blurred vision, no earache, no runny nose, no sore throat. Appetite is okay. No difficulty swallowing. No chest pain or shortness of breath. No cough, no nausea, no vomiting, no abdominal pain, normal bowel and bladder movements. Admission Exam Per Admitting Provider GENERAL: The patient is of moderate build, not in acute distress. VITAL SIGNS: Temperature 36.8, pulse 91, respiratory rate 19, blood pressure 137/67, oxygen 100% on room air. HEENT: Pupils equal, round and reactive to light. Oral mucosa moist. NECK: No JVD, no neck masses. CARDIOVASCULAR: S1 and S2 heard. Regular rate and rhythm. No murmur, no gallop. RESPIRATORY SYSTEM: Normal AP diameter. No accessory muscle use. No wheezing, no crackles. ABDOMEN: Soft, bowel sounds present, nontender, no distention. CENTRAL NERVOUS SYSTEM: Cranial nerves II-XII grossly intact, nonfocal. EXTREMITIES: Left lower extremity, the great toe amputation site is slightly swollen and erythematous and slight tender on palpation. Principal Diagnosis Left great toe infection EBONY Hypomagnesemia Discharge Exam GENERAL: The patient is of moderate build, not in acute distress. HEENT: NC/AT, EOMI, Pupils equal, round and reactive to light. NECK: No JVD, no neck masses. CARDIOVASCULAR: S1 and S2 heard. Regular rate and rhythm. No murmur, no gallop. RESPIRATORY: Normal AP diameter. No accessory muscle use. No wheezing, no crackles. ABDOMEN: Soft, bowel sounds present, nontender, no distention. NEURO: alert and oriented x3, speech fluent, no facial asymmetry, moves extremities EXTREMITIES: Left lower extremity, the great toe amputation site is slightly swollen and erythematous and slight tender on palpation. Discharge Data Allergies Allergy/AdvReac Type Severity Reaction Status Date / Time adhesive tape Allergy Mild PER PT Verified 07/13/21 19:32 "GLUE ON TAPE"--SKIN IRRITATION Consultations 07/13/21 19:25 ED Decision to Admit Stat 07/14/21 07:18 Consult Orthopedic Surgery Routine Hospital Course (1) Osteomyelitis of great toe of left foot: This is a 56-year-old female who presents with infection of the left great toe amputation site. 1. Left great toe amputation site infection, possibly again recurrence of osteomyelitis. Left Toe X-ray - Status post left first digit amputation. Osseous irregularity within the distal remaining portion of the proximal phalanx of the left first toe shown only on lateral projection. This could reflect postsurgical change or osteomyelitis. ESR 21, CRP 0.35 Empirically started on vancomycin and Zosyn. N.p.o. for now until seen by orthopedics, IV fluids. Orthopedics consulted for further recommendations. Awaiting their eval. Per orthopedics, osteomyelitis not likely, and patient can be discharged on p.o. antibiotics, with close follow-up of her outpatient interviewing clerk. Patient would like to go home and will be discharged on p.o. antibiotics. 2. Diabetes. We will hold the metformin. We will hold her insulin pump. The patient is okay for holding insulin pump. Lantus insulin sliding scale. We will monitor blood sugar. Currently, patient is n.p.o. from midnight. The patient seems to have chronic elevated lactic acid that was at last admission. Could be chronic, could be from acute from ongoing infection. Possible secondary to metformin. We will need to stop the metformin for now and follow out patient. EBONY - resolved Cr on admission 1.5 Current Cr 1 Hypomagnesemia Currently Mag 1.5 - replete and monitor 3. History of thyroid cancer, status post thyroidectomy. 4. Postsurgical hypothyroidism. Continue Synthroid. 5. Depression, anxiety. Continue her on Klonopin and Effexor. 6. Gastroesophageal reflux disease. Continue omeprazole. 7. Hypertension. Amlodipine and metoprolol succinate. We will monitor the blood pressure. 8. History of branch vessel coronary artery disease with cardiac catheterization in December 2015. 9. Chronic right bundle-branch block. On aspirin, statin, metoprolol. Currently stable. DISPOSITION: Plan to discharge home, and follow-up with podiatry. Code: Full Total Time Total Time Spent Total Time Spent (In Minutes): 35 Discharge Plan Discharge Items Patient Disposition: Home - Self-Care Reason For Visit: LEFT GREAT TOE INFECTION Discharge Diagnosis: Left great toe infection EBONY Hypomagnesemia Activity: Per Instructions section Non-emergency contact: Primary Care Provider and Surgeon Call non-emergency contact if: you have any medication questions and your symptoms worsen Follow-up/Referrals: Glen Diaz, [Primary Care Provider] - Diet: Carb Consistent or DM2 and Heart Healthy Addtl Attending Provider Instructions: Follow-up with your outpatient interviewing clerk, within 1 week. In the meantime continue oral antibiotics - Augmentin and Bactrim, as prescribed. While you take antibiotics, it is recommended that you take also probiotics, which helps to prevent any stomach upset from taking antibiotics. Pending Studies at Discharge: Yes Studies:: Blood culture results Stand-Alone Forms: My [employer], Smoking Cessation Medications and DC Order Prescriptions: New Advanced Probiotic 625 mg (10 billion cell) Capsule 2 cap PO DAILY Qty: 20 RF: 0 amoxicillin-pot clavulanate [Augmentin] 875-125 mg tablet 1 tab PO BID Qty: 14 RF: 0 sulfamethoxazole-trimethoprim [Bactrim DS] 800-160 mg tablet 1 tab PO BID Qty: 14 RF: 0 Continued Humulin 70/30 U-100 Insulin 100 unit/mL (70-30) Suspension See Rx Instructions .ROUTE .COMPLEX RF: 0 amlodipine 2.5 mg Tablet 2.5 mg PO QPM RF: 0 aspirin 81 mg Tablet,Delayed Release (Dr/Ec) 81 mg PO QAM RF: 0 omeprazole 20 mg Tablet,Delayed Release (Dr/Ec) 20 mg PO BID RF: 0 levothyroxine 175 mcg Tablet 175 mcg PO QAM RF: 0 metformin 1,000 mg Tablet Extended Release 24hr 1,000 mg PO BID RF: 0 gabapentin 100 mg Capsule 100 mg PO TID RF: 0 clonazepam 0.5 mg Tablet 0.25 mg PO BID Qty: 60 RF: 0 metoprolol succinate 25 mg Tablet Extended Release 24 Hr 37.5 mg PO QPM RF: 0 rosuvastatin 40 mg Tablet 40 mg PO QAM RF: 0 acetaminophen 325 mg Tablet 650 mg PO Q4H PRN (Reason: fever or pain) Qty: 90 RF: 0 oxycodone 5 mg Tablet 5 mg PO Q4H PRN (Reason: pain) Qty: 30 RF: 0 venlafaxine [Effexor XR] 150 mg capsule,extended release 24hr 150 mg PO QAM RF: 0 Discharge Orders: Discharge Order (Routine); Ordered 07/14/21 Ordered By: Manuel Zaragoza Admission Data Admit Date/Time: 07/13/21 20:44 Attending Provider: Manuel Zaragoza Admit Provider: Jose Persaud Primary Care Provider: Glen Diaz Other Providers: Jose Persaud ; Migel Hunt
--- NOTE | 2021-07-14 14:43 | Communication Note ---
Date of Service: July 14, 2021 Code 44 attestation: She is a 56-year-old female with diabetes and was admitted with left great toe infection and was thought to be due to osteomyelitis. She was evaluated by the orthopedic surgeon and osteomyelitis has been ruled out and she was advised discharge on oral antibiotic. Her chart, labs and imaging studies reviewed. By [facility] guidelines, a determination that the admission or continued stay is not medically necessary has been made by a member of the UR committee and a physician for this hospital stay, therefore a Code 44 will be completed and the Inpatient admission will be changed to outpatient. Dr Jeffry Thornton Member UR Committee
[2021-07-15] MEDS ORDERED: VANCOMYCIN TROUGH ONE (19:30)
== END 2021-07-14 16:03 | disposition home or self-care (01) ==
LOC: ED 17:47 → 3W 20:44 → INTOOBSV 20:44 → 3W 21:28

== ENCOUNTER 2022-04-23 12:55 | Inpatient (IN) ==
--- NOTE | 2022-04-23 13:21 | Emergency Department Note ---
History of Present Illness General Chief complaint: Mental Health Evaluation Stated complaint: depression, etc Time Seen by Provider: 04/23/22 13:07 Source: patient Mode of arrival: ambulatory Limitations: no limitations History of Present Illness Provider complaint: Mental health evaluation This is a 57-year-old female who presents for mental health evaluation. She events at the encouragement of an outpatient mental health provider who was concerned for her worsening depression. Patient recently lost her , and their wedding anniversary was 2 days ago. This week and is also Father's Day. Patient feels increasing sadness. Patient does wish for inpatient treatment at this time. Pt seen during a time of high acuity and national emergency pandemic while wearing PPE. Home Medications Medication Instructions Recorded Confirmed Type aspirin 81 mg tablet,delayed 81 mg PO QAM 02/18/19 04/23/22 History release metformin 1,000 mg tablet,extended 1,000 mg PO BID 02/18/19 04/23/22 History release 24hr omeprazole 20 mg tablet,delayed 20 mg PO BID 02/18/19 04/23/22 History release amlodipine 2.5 mg tablet 2.5 mg PO QPM 03/27/19 04/23/22 History gabapentin 100 mg capsule 100 mg PO TID 07/21/19 04/23/22 History metoprolol succinate 25 mg 37.5 mg PO QPM 05/24/21 04/23/22 History tablet,extended release 24 hr rosuvastatin 40 mg tablet 40 mg PO QAM 05/24/21 04/23/22 History venlafaxine 150 mg 150 mg PO QAM 05/28/21 04/23/22 History capsule,extended release 24 hr (Effexor XR) cholecalciferol (vitamin D3) 50 50 mcg PO DAILY 12/30/21 04/23/22 History mcg (2,000 unit) capsule (Vitamin D3) cinnamon bark 500 mg capsule 1,000 mg PO QAM 12/30/21 04/23/22 History (Cinnamon) clonazepam 0.5 mg tablet 0.5 mg PO BID PRN 12/30/21 04/23/22 History insulin aspart U-100 100 unit/mL 200 unit SUBCUT UD 12/30/21 04/23/22 History subcutaneous solution insulin pump cart,cont inf,BT 12/30/21 04/23/22 History (Omnipod Dash Pods (Gen 4)) levothyroxine 150 mcg tablet 150 mcg PO DAILY 12/30/21 04/23/22 History (Synthroid) multivitamin with minerals 1 tab PO DAILY 12/30/21 04/23/22 History (Hair,Skin and Nails) turmeric root extract 500 mg 500 mg PO DAILY 12/30/21 04/23/22 History capsule dulaglutide 1.5 mg/0.5 mL 1.5 mg SUBCUT WK 03/18/22 04/23/22 History subcutaneous pen injector (Trulicity) Allergies Allergy/AdvReac Type Severity Reaction Status Date / Time adhesive tape Allergy Mild PER PT Verified 04/23/22 13:35 "GLUE ON TAPE"--SKIN IRRITATION Past Med/Surg History Medical History Amputation of toe Anxiety Benign neoplasm of vulva of clitoris CAD (coronary artery disease) Depression Diabetes mellitus, type II insulin pump History of thyroid cancer with surgical intervention Hypertension Myocardial Infarction 12 YEARS AGO (FOLLOWED BY DR. DODSON) VERBALIZED NO HEART CATH DONE Peripheral neuropathy Restless leg syndrome Schwannoma REMOVED BY DR. GROSSMAN MARCH 2018 Stroke 7 YEARS AGO (LEFT SIDE WEAKNESS/LEFT EYE DROOPING) > follows with a neurologist unsure of name Suicidal ideation improving Tumor LEFT FEMUR (BENIGN) 2 TUMORS REMOVED > several yrs ago Vulvitis Surgical History Family history of reaction to anesthesia BROTHER-NAUSEA H/O blepharoplasty RT/LEFT History of anesthesia reaction SLOW TO WAKE UP History of cholecystectomy History of colonoscopy History of esophagogastroduodenoscopy (EGD) History of neck surgery anterior cervical discectomy with bilateral foraminotomies C6-7. #2 anterior cervical arthrodesis C6-7. #3 placement of titanium 9.9 mm cage filled with DBM and C6-7. #4 occasional hernandez plate and screws across C6-7 >> ROM no limitations History of surgery robot-assist left thorascopic resection of schwannoma from left upper mediastinum. 03/16/2018. SANG. A line. No issues. History of thyroidectomy, total History of tonsillectomy History of tooth extraction S/P LASIK surgery of both eyes Status post hysteroscopic ablation of endometrium Family History Grandmother (Maternal) Family history of diabetes mellitus Mother Ovarian cancer Father Myocardial infarction Social History Smoking Status: Never smoker Second Hand Exposure: No; Hx Alcohol Use: No Hx Substance Use: No Preferred Language: Samoan Communication Ability: Effective Scrap Materials Buyer Required: No Beliefs That Will Affect Care: None marital status: / Current Living Situation: Alone Feels Safe at Home: Yes Assistive Devices: Denture - Upper and Denture - Lower Review of Systems A total of 10 systems reviewed and were otherwise negative All systems reviewed & are unremarkable except as noted in HPI & below Physical Exam Vital Signs Vital Signs - 24 hr 04/23/22 13:03 04/23/22 15:12 Temperature 37.1 C Temperature Source Temporal Artery Scan Pulse Rate 105 H Pulse Rate [Right Finger] 81 Respiratory Rate 20 20 Respiratory Effort / Characteristics Non-Labored Spontaneous Non-Labored Spontaneous Respiratory Depth Normal Normal Respiratory Pattern Regular Regular Blood Pressure 111/72 Blood Pressure [Left Arm] 128/75 Blood Pressure Mean 85 Blood Pressure Mean [Left Arm] 92 Pulse Oximetry 96 96 Oxygen Delivery Method Room Air Room Air Sepsis Recent Fever Within 48 Hours No Sepsis New/Unexplained Change in Mental Status No Sepsis Action Taken by Nursing No Action Required GENERAL: alert, well appearing, well nourished, no distress, non-toxic EYE EXAM: normal conjunctiva, PERRL and EOM's grossly intact OROPHARYNX: no exudate, no erythema, lips, buccal mucosa, and tongue normal and mucous membranes are moist NECK: supple, no nuchal rigidity, no adenopathy, non-tender LUNGS: Clear to auscultation. Normal chest wall mechanics, no w/r/r HEART: no murmurs, S1 normal and S2 normal ABDOMEN: abdomen soft, non-tender, normo-active bowel sounds, no masses, no rebound or guarding. BACK: Back is symmetrical on inspection and there is no deformity, no midline tenderness, no CVA tenderness. SKIN: no rashes and no bruising UPPER EXTREMITIES: upper extremities are grossly normal. FROM, nml pulses b/l. LOWER EXTREMITIES: No pitting edema. FROM, nml pulses b/l. NEURO EXAM: Normal sensorium, cranial nerves II-XII grossly intact, normal speech, no gross weakness of arms, no gross weakness of legs. Gross sensation intact. Course Administered Medications Discontinued Medications Insulin Aspart (Insulin Aspart Per Unit) 10 units SC ONE ONE Stop: 04/23/22 18:31 Last Admin: 04/23/22 18:33 Dose: 10 units Documented by: [id number] Cosigned by: [id number] Insulin Glargine (Insulin Glargine Solostar 100 Units/Ml 3 Ml Pen) 40 units SC ONE ONE Stop: 04/23/22 18:31 Last Admin: 04/23/22 19:17 Dose: 40 units Documented by: [id number] Cosigned by: [id number] Insulin Human Regular (Novolin-R Insulin Per Unit Charge) 6 units SC NOW STA Stop: 04/23/22 15:00 Last Admin: 04/23/22 15:34 Dose: Not Given Documented by: [id number] Insulin Human Regular (Novolin-R Insulin Per Unit Charge) 4 units SC NOW STA Stop: 04/23/22 15:27 Last Admin: 04/23/22 15:32 Dose: 4 units Documented by: [id number] Cosigned by: [id number] Medical Decision Making Medical Records Attestation: I reviewed the patient's medical records. Home Medications Current Medication List: was personally reviewed by me Laboratory Data Attestation: I reviewed the patient's lab results. Result diagrams: 04/23/22 13:45 04/23/22 13:45 Lab Results 04/23/22 04/23/22 04/23/22 Range/Units 13:30 13:30 13:34 WBC (4.8-10.8) K/uL RBC (4.2-5.4) M/uL Hgb (12.0-16.0) g/dL Hct (37-47) % MCV (80-100) fL MCH (25-34) pg MCHC (32-36) g/dL RDW Std Deviation (36.4-46.3) fL RDW Coeff of Daphney (11.5-14.5) % Plt Count (130-400) K/uL MPV (7.4-10.4) fL Immature Gran % (Auto) % Neut % (Auto) % Lymph % (Auto) % Larimer % (Auto) % Eos % (Auto) % Baso % (Auto) % Neut # (Auto) (1.4-6.5) K/uL Lymph # (Auto) (1.2-3.4) K/uL Larimer # (Auto) (0.11-0.59) K/uL Eos # (Auto) (0-0.5) K/uL Baso # (Auto) (0-0.2) K/uL Immature Gran # (Auto) (0.00-0.02) K/uL Sodium (136-145) mmol/L Potassium (3.5-5.1) mmol/L Chloride (98-107) mmol/L Carbon Dioxide (21-32) mmol/L Anion Gap (3-11) BUN (6-23) mg/dl Creatinine (0.6-1.2) mg/dl Est Cr Clr Drug Dosing ml/min Est GFR ( Amer) ml/min Est GFR (Non-Af Amer) ml/min BUN/Creatinine Ratio (10-20) Glucose (70-99(Fasting)) mg/dl POC Glucose (70-99) mg/dl Calcium (8.5-10.1) mg/dl Total Bilirubin (0.2-1.0) mg/dl AST (13-39) U/L ALT (7-52) U/L Alkaline Phosphatase (34-104) U/L Total Protein (6.0-8.3) gm/dl Albumin (3.4-5.0) gm/dl Globulin (2.5-4.0) gm/dl Albumin/Globulin Ratio (0.9-2) TSH (0.300-4.500) uIu/ml Urine Color Yellow Urine Appearance Clear (Clear) Urine pH 6.0 (4.5-7.5) Ur Specific Hasty 1.010 (1.000-1.030) Urine Protein 1+ H (Negative) Urine Glucose (UA) Trace H (Negative) Urine Ketones Negative (Negative) Urine Blood Negative (Negative) Urine Nitrite Negative (Negative) Urine Bilirubin Negative (Negative) Urine Urobilinogen Negative (Negative) Ur Leukocyte Esterase Trace H (Negative) Urine WBC (Auto) 10-30 H (0-5) /hpf Urine RBC (Auto) 0-4 (0-4) /hpf U Hyaline Cast (Auto) 1-5 (0-5) /lpf U Epithel Cells (Auto) >30 H (0-5) /lpf Urine Bacteria (Auto) Negative (Negative) Ur Renal Epithelial Cell Not Reportable Urine Mucus Present A (None Prsent) Salicylates (3.0-30) mg/dl Urine Opiates Screen Neg (Neg) Ur Methadone, Qual Neg (Neg) Acetaminophen (10-30) ug/ml Urine Barbiturates Neg (Neg) Ur Phencyclidine (PCP) Neg (Neg) U Amphetamin/Meth Scrn Neg (Neg) MDMA (Ecstasy) Screen Neg (Neg) U Benzodiazepines Scrn Neg (Neg) Ur Cocaine Metabolite Neg (Neg) U Marijuana (THC) Screen Neg (Neg) Ethyl Alcohol mg/dL (<10.0) mg/dl SARS-CoV-2, RNA, NAAT NEGATIVE (NEGATIVE) 04/23/22 04/23/22 04/23/22 Range/Units 13:45 13:45 13:45 WBC 13.20 H (4.8-10.8) K/uL RBC 5.16 (4.2-5.4) M/uL Hgb 15.0 (12.0-16.0) g/dL Hct 44.9 (37-47) % MCV 87.0 (80-100) fL MCH 29.1 (25-34) pg MCHC 33.4 (32-36) g/dL RDW Std Deviation 46.0 (36.4-46.3) fL RDW Coeff of Daphney 14.4 (11.5-14.5) % Plt Count 302 (130-400) K/uL MPV 9.7 (7.4-10.4) fL Immature Gran % (Auto) 0.3 % Neut % (Auto) 61.5 % Lymph % (Auto) 27.7 % Larimer % (Auto) 9.2 % Eos % (Auto) 0.8 % Baso % (Auto) 0.5 % Neut # (Auto) 8.14 H (1.4-6.5) K/uL Lymph # (Auto) 3.65 H (1.2-3.4) K/uL Larimer # (Auto) 1.21 H (0.11-0.59) K/uL Eos # (Auto) 0.10 (0-0.5) K/uL Baso # (Auto) 0.06 (0-0.2) K/uL Immature Gran # (Auto) 0.04 H (0.00-0.02) K/uL Sodium 136 (136-145) mmol/L Potassium 3.6 (3.5-5.1) mmol/L Chloride 98 (98-107) mmol/L Carbon Dioxide 27 (21-32) mmol/L Anion Gap 11 (3-11) BUN 10 (6-23) mg/dl Creatinine 1.08 (0.6-1.2) mg/dl Est Cr Clr Drug Dosing 64.1 ml/min Est GFR ( Amer) 65.1 ml/min Est GFR (Non-Af Amer) 56.1 ml/min BUN/Creatinine Ratio 9.3 L (10-20) Glucose 299 H (70-99(Fasting)) mg/dl POC Glucose (70-99) mg/dl Calcium 9.2 (8.5-10.1) mg/dl Total Bilirubin 0.6 (0.2-1.0) mg/dl AST 59 H (13-39) U/L ALT 64 H (7-52) U/L Alkaline Phosphatase 105 H (34-104) U/L Total Protein 8.3 (6.0-8.3) gm/dl Albumin 4.6 (3.4-5.0) gm/dl Globulin 3.7 (2.5-4.0) gm/dl Albumin/Globulin Ratio 1.2 (0.9-2) TSH 1.359 (0.300-4.500) uIu/ml Urine Color Urine Appearance (Clear) Urine pH (4.5-7.5) Ur Specific Hasty (1.000-1.030) Urine Protein (Negative) Urine Glucose (UA) (Negative) Urine Ketones (Negative) Urine Blood (Negative) Urine Nitrite (Negative) Urine Bilirubin (Negative) Urine Urobilinogen (Negative) Ur Leukocyte Esterase (Negative) Urine WBC (Auto) (0-5) /hpf Urine RBC (Auto) (0-4) /hpf U Hyaline Cast (Auto) (0-5) /lpf U Epithel Cells (Auto) (0-5) /lpf Urine Bacteria (Auto) (Negative) Ur Renal Epithelial Cell Urine Mucus (None Prsent) Salicylates (3.0-30) mg/dl Urine Opiates Screen (Neg) Ur Methadone, Qual (Neg) Acetaminophen (10-30) ug/ml Urine Barbiturates (Neg) Ur Phencyclidine (PCP) (Neg) U Amphetamin/Meth Scrn (Neg) MDMA (Ecstasy) Screen (Neg) U Benzodiazepines Scrn (Neg) Ur Cocaine Metabolite (Neg) U Marijuana (THC) Screen (Neg) Ethyl Alcohol mg/dL (<10.0) mg/dl SARS-CoV-2, RNA, NAAT (NEGATIVE) 04/23/22 04/23/22 04/23/22 Range/Units 13:45 13:45 15:05 WBC (4.8-10.8) K/uL RBC (4.2-5.4) M/uL Hgb (12.0-16.0) g/dL Hct (37-47) % MCV (80-100) fL MCH (25-34) pg MCHC (32-36) g/dL RDW Std Deviation (36.4-46.3) fL RDW Coeff of Daphney (11.5-14.5) % Plt Count (130-400) K/uL MPV (7.4-10.4) fL Immature Gran % (Auto) % Neut % (Auto) % Lymph % (Auto) % Lar[place] % (Auto) % Eos % (Auto) % Baso % (Auto) % Neut # (Auto) (1.4-6.5) K/uL Lymph # (Auto) (1.2-3.4) K/uL Larimer # (Auto) (0.11-0.59) K/uL Eos # (Auto) (0-0.5) K/uL Baso # (Auto) (0-0.2) K/uL Immature Gran # (Auto) (0.00-0.02) K/uL Sodium (136-145) mmol/L Potassium (3.5-5.1) mmol/L Chloride (98-107) mmol/L Carbon Dioxide (21-32) mmol/L Anion Gap (3-11) BUN (6-23) mg/dl Creatinine (0.6-1.2) mg/dl Est Cr Clr Drug Dosing ml/min Est GFR ( Amer) ml/min Est GFR (Non-Af Amer) ml/min BUN/Creatinine Ratio (10-20) Glucose (70-99(Fasting)) mg/dl POC Glucose 286 H (70-99) mg/dl Calcium (8.5-10.1) mg/dl Total Bilirubin (0.2-1.0) mg/dl AST (13-39) U/L ALT (7-52) U/L Alkaline Phosphatase (34-104) U/L Total Protein (6.0-8.3) gm/dl Albumin (3.4-5.0) gm/dl Globulin (2.5-4.0) gm/dl Albumin/Globulin Ratio (0.9-2) TSH (0.300-4.500) uIu/ml Urine Color Urine Appearance (Clear) Urine pH (4.5-7.5) Ur Specific Hasty (1.000-1.030) Urine Protein (Negative) Urine Glucose (UA) (Negative) Urine Ketones (Negative) Urine Blood (Negative) Urine Nitrite (Negative) Urine Bilirubin (Negative) Urine Urobilinogen (Negative) Ur Leukocyte Esterase (Negative) Urine WBC (Auto) (0-5) /hpf Urine RBC (Auto) (0-4) /hpf U Hyaline Cast (Auto) (0-5) /lpf U Epithel Cells (Auto) (0-5) /lpf Urine Bacteria (Auto) (Negative) Ur Renal Epithelial Cell Urine Mucus (None Prsent) Salicylates < 3.0 L (3.0-30) mg/dl Urine Opiates Screen (Neg) Ur Methadone, Qual (Neg) Acetaminophen < 3 L (10-30) ug/ml Urine Barbiturates (Neg) Ur Phencyclidine (PCP) (Neg) U Amphetamin/Meth Scrn (Neg) MDMA (Ecstasy) Screen (Neg) U Benzodiazepines Scrn (Neg) Ur Cocaine Metabolite (Neg) U Marijuana (THC) Screen (Neg) Ethyl Alcohol mg/dL < 10.0 (<10.0) mg/dl SARS-CoV-2, RNA, NAAT (NEGATIVE) 04/23/22 04/23/22 04/23/22 Range/Units 16:14 17:20 19:07 WBC (4.8-10.8) K/uL RBC (4.2-5.4) M/uL Hgb (12.0-16.0) g/dL Hct (37-47) % MCV (80-100) fL MCH (25-34) pg MCHC (32-36) g/dL RDW Std Deviation (36.4-46.3) fL RDW Coeff of Daphney (11.5-14.5) % Plt Count (130-400) K/uL MPV (7.4-10.4) fL Immature Gran % (Auto) % Neut % (Auto) % Lymph % (Auto) % Lar[place] % (Auto) % Eos % (Auto) % Baso % (Auto) % Neut # (Auto) (1.4-6.5) K/uL Lymph # (Auto) (1.2-3.4) K/uL Larimer # (Auto) (0.11-0.59) K/uL Eos # (Auto) (0-0.5) K/uL Baso # (Auto) (0-0.2) K/uL Immature Gran # (Auto) (0.00-0.02) K/uL Sodium (136-145) mmol/L Potassium (3.5-5.1) mmol/L Chloride (98-107) mmol/L Carbon Dioxide (21-32) mmol/L Anion Gap (3-11) BUN (6-23) mg/dl Creatinine (0.6-1.2) mg/dl Est Cr Clr Drug Dosing ml/min Est GFR ( Amer) ml/min Est GFR (Non-Af Amer) ml/min BUN/Creatinine Ratio (10-20) Glucose (70-99(Fasting)) mg/dl POC Glucose 274 H 269 H 234 H (70-99) mg/dl Calcium (8.5-10.1) mg/dl Total Bilirubin (0.2-1.0) mg/dl AST (13-39) U/L ALT (7-52) U/L Alkaline Phosphatase (34-104) U/L Total Protein (6.0-8.3) gm/dl Albumin (3.4-5.0) gm/dl Globulin (2.5-4.0) gm/dl Albumin/Globulin Ratio (0.9-2) TSH (0.300-4.500) uIu/ml Urine Color Urine Appearance (Clear) Urine pH (4.5-7.5) Ur Specific Hasty (1.000-1.030) Urine Protein (Negative) Urine Glucose (UA) (Negative) Urine Ketones (Negative) Urine Blood (Negative) Urine Nitrite (Negative) Urine Bilirubin (Negative) Urine Urobilinogen (Negative) Ur Leukocyte Esterase (Negative) Urine WBC (Auto) (0-5) /hpf Urine RBC (Auto) (0-4) /hpf U Hyaline Cast (Auto) (0-5) /lpf U Epithel Cells (Auto) (0-5) /lpf Urine Bacteria (Auto) (Negative) Ur Renal Epithelial Cell Urine Mucus (None Prsent) Salicylates (3.0-30) mg/dl Urine Opiates Screen (Neg) Ur Methadone, Qual (Neg) Acetaminophen (10-30) ug/ml Urine Barbiturates (Neg) Ur Phencyclidine (PCP) (Neg) U Amphetamin/Meth Scrn (Neg) MDMA (Ecstasy) Screen (Neg) U Benzodiazepines Scrn (Neg) Ur Cocaine Metabolite (Neg) U Marijuana (THC) Screen (Neg) Ethyl Alcohol mg/dL (<10.0) mg/dl SARS-CoV-2, RNA, NAAT (NEGATIVE) MDM Narrative This is a 57 yo female who presents from outpatient mental health provider due to worsening depression and passive SI. Patient calm and cooperative and seeking inpatient mental health treatment. Patient is a diabetic and did have hyperglycemia although stated her insulin pump wasn't working correctly. She was given subQ insulin and repeat BSG ordered. Mild leukocytosis noted, although pt denies any illness. No evidence of DKA. Patient denies any symptoms on ROS. Possible adr of meds. I suspect mild abnormality of LFT"s due to medications also. Patient being evaluated by [facility] for admission. Impression & Plan Depression, Anxiety, Diabetes mellitus, type II, Hyperglycemia Discharge Plan Visit Data Chief Complaint: Mental Health Evaluation Stated Complaint: depression, etc ED Provider: Kin Gonsalez Discharge Problem: Depression, Anxiety, Diabetes mellitus, type II, Hyperglycemia Forms Stand Alone Forms: My [facility], Suicide Prevention Resources Prescriptions Prescriptions: No Action amlodipine 2.5 mg Tablet 2.5 mg PO QPM RF: 0 aspirin 81 mg Tablet,Delayed Release (Dr/Ec) 81 mg PO QAM RF: 0 omeprazole 20 mg Tablet,Delayed Release (Dr/Ec) 20 mg PO BID RF: 0 metformin 1,000 mg Tablet Extended Release 24hr 1,000 mg PO BID RF: 0 gabapentin 100 mg Capsule 100 mg PO TID RF: 0 metoprolol succinate 25 mg Tablet Extended Release 24 Hr 37.5 mg PO QPM RF: 0 rosuvastatin 40 mg Tablet 40 mg PO QAM RF: 0 venlafaxine [Effexor XR] 150 mg capsule,extended release 24hr 150 mg PO QAM RF: 0 clonazepam 0.5 mg tablet 0.5 mg PO BID PRN (Reason: Anxiety) RF: 0 levothyroxine [Synthroid] 150 mcg Tablet 150 mcg PO DAILY RF: 0 Hair,Skin and Nails Tablet 1 tab PO DAILY RF: 0 cinnamon bark [Cinnamon] 500 mg Capsule 1,000 mg PO QAM RF: 0 cholecalciferol (vitamin D3) [Vitamin D3] 50 mcg (2,000 unit) Capsule 50 mcg PO DAILY RF: 0 turmeric root extract 500 mg Capsule 500 mg PO DAILY RF: 0 insulin aspart U-100 100 unit/mL Solution 200 unit SUBCUT UD RF: 0 (DME) Omnipod Dash Pods (Gen 4) Cartridge SUBCUT RF: 0 Trulicity 1.5 mg/0.5 mL Pen Injector 1.5 mg SUBCUT WK RF: 0 Referrals Referrals: Ivonne French PA-C [Primary Care Provider] - Discharge Problem: Depression Qualifiers: Depression Type: major depressive disorder Major depression recurrence: unspecified whether recurrent Active/Remission status: currently active Major depression episode severity: severe Psychotic features: without psychotic features Qualified Code(s): F32.2 - Major depressive disorder, single episode, severe without psychotic features Diabetes mellitus, type II Qualifiers: Diabetes mellitus custodial insulin use: with terminologist use Diabetes mellitus complication status: with hyperglycemia Qualified Code(s): E11.65 - Type 2 diab etes mellitus with hyperglycemia
[2022-04-23 13:51] LABS: Appearance Urine Clear (Clear); Bacteria Urine Automated Negative (Negative); Bilirubin Urine Negative (Negative); Blood Urine Negative (Negative); Color Urine Yellow; Epithelial Cell Urine Auto >30 /lpf (0-5); Glucose Urine UA Trace (Negative); Ketones Urine Negative (Negative); Leukocyte Esterase Urine Trace (Negative); Nitrite Urine Negative (Negative); Protein Urine 1+ (Negative); RBC Urine Automated 0-4 /hpf (0-4); Urobilinogen Urine Negative (Negative)
[2022-04-23 14:04] LABS: Basophils # (auto) 0.06 K/uL (0-0.2); Basophils % (auto) 0.5 %; Eosinophils % (auto) 0.8 %; Hematocrit (blood only) 44.9 % (37-47); Immature Granulocytes # (auto) 0.04 K/uL (0.00-0.02); Immature Granulocytes % (auto) 0.3 %; Lymphocytes # (auto) 3.65 K/uL (1.2-3.4); Lymphocytes % (auto) 27.7 %; Mean Corpuscular Hemoglobin 29.1 pg (25-34); Mean Corpuscular Hgb Conc 33.4 g/dL (32-36); Mean Platelet Volume 9.7 fL (7.4-10.4); Monocytes # (auto) 1.21 K/uL (0.11-0.59); Monocytes % (auto) 9.2 %; Neutrophils # (auto) 8.14 K/uL (1.4-6.5); Neutrophils % (auto) 61.5 %; Platelet Count 302 K/uL (130-400); RDW Coefficient of Variation 14.4 % (11.5-14.5); Red Blood Count 5.16 M/uL (4.2-5.4)
[2022-04-23 14:13] LABS: Mucus Urine Present (None Prsent)
[2022-04-23 14:36] LABS: Acetaminophen < 3 ug/ml (10-30); Salicylate < 3.0 mg/dl (3.0-30)
[2022-04-23 14:37] LABS: Albumin Globulin Ratio 1.2 (0.9-2); Albumin Level 4.6 gm/dl (3.4-5.0); BUN Creatinine Ratio 9.3 (10-20); Bilirubin,Total 0.6 mg/dl (0.2-1.0); Calcium 9.2 mg/dl (8.5-10.1); Creatinine Clr Calc Pharmacy 64.1 ml/min; Est GFR (African American) 65.1 ml/min; Est GFR (Non-African American) 56.1 ml/min; Globulin 3.7 gm/dl (2.5-4.0); Potassium 3.6 mmol/L (3.5-5.1); Total Protein 8.3 gm/dl (6.0-8.3)
[2022-04-23] MEDS ORDERED: NovoLIN-R INSULIN PER UNIT CHARGE SC STA ×2 (14:59→15:26)
[2022-04-23 15:26] LABS: Amphetamines+Metham, Urine Neg (Neg); Barbiturates, Urine Neg (Neg); Benzodiazepine, Urine Neg (Neg); Cocaine, Urine Neg (Neg); MDMA (Ecstacy), Urine Neg (Neg); Methadone, Urine Neg (Neg); Opiate, Urine Neg (Neg); Phencyclidine, Urine Neg (Neg)
--- NOTE | 2022-04-23 17:05 | Emergency Department Note ---
ED Visit Note The patient was taken in signout from [facility] at the change of shift. Please see that note for details. The patient was pending evaluation by [facility] for inpatient psychiatric admission for severe depression after her recently . Upon [facility] evaluation, it was communicated they will accept the patient once the patient has eaten and her glucose was under better control. The patient had stopped using her insulin pump because she was not eating and so this likely explains the elevated blood sugar but is also known to have uncontrolled diabetes per records. Importantly, there is no metabolic acidosis on chemistry. Additionally, no symptoms or lab results that suggest HHS either. Patient was encouraged to eat her dinner tray and then subsequently will be dosed her insulin accordingly with sliding scale and carb count. She did have some crackers and apple sauce. Review of [facility] records shows patient's hemoglobin A1c in October 2021 was 10. I met with the patient and unfortunately she is not aware what her sliding scale dosing would be in her current depressed state. Patient's case was reviewed with pharmacy. Patient appreciate recommendations and patient was dosed 40 units of Lantus and 10 units with sliding scale. BSG was subsequently 174. Patient was subsequently admitted/accepted to 3 [facility]. 201 was signed. . : Depression Qualifiers: Depression Type: major depressive disorder Major depression recurrence: unspecified whether recurrent Active/Remission status: currently active Major depression episode severity: severe Psychotic features: without psychotic features Qualified Code(s): F32.2 - Major depressive disorder, single episode, severe without psychotic features Diabetes mellitus, type II Qualifiers: Diabetes mellitus adjunct faculty for medical terminology insulin use: with jail use Diabetes mellitus complication status: with hyperglycemia Qualified Code(s): E11.65 - Type 2 diabetes mellitus with hyperglycemia
[2022-04-23] MEDS ORDERED: INSULIN GLARGINE SOLOSTAR 100 UNITS/ML 3 ML PEN SC ONE (18:30)
[2022-04-23] MEDS ORDERED: INSULIN ASPART PER UNIT SC ONE (18:30)
[2022-04-23] MEDS ORDERED: clonazePAM 0.5 MG TAB PO PRN (20:10)
[2022-04-23] MEDS ORDERED: GLUCOSE 10 TABS/TUBE PO PRN (21:15)
[2022-04-23] MEDS ORDERED: CARBOHYDRATES FOR HYPOGLYCEMIA PO PRN (21:15)
[2022-04-23] MEDS ORDERED: GLUCOSE 40% GEL 15 GM TUBE PO PRN (21:15)
[2022-04-23] MEDS ORDERED: GLUCAGON FOR INJ 1 MG VIAL IM PRN (21:15)
[2022-04-23] MEDS ORDERED: DEXTROSE 50% 50 ML SYRINGE IV PRN (21:15)
[2022-04-23] MEDS ORDERED: ALUMINUM/MAGNESIUM SUSP 30 ML UDC PO PRN (21:50)
[2022-04-23] MEDS ORDERED: ACETAMINOPHEN 325 MG TAB PO PRN (21:50)
[2022-04-23] MEDS ORDERED: BISMUTH SUBSALICYLATE LIQD 236 ML PO PRN (21:50)
[2022-04-23] MEDS ORDERED: MAGNESIUM HYDROXIDE SUSP 30 ML UDC PO PRN (21:50)
[2022-04-23] MEDS ORDERED: SODIUM CHLORIDE 0.65% NA SOLN 45 ML (OCEAN) PRN (21:50)
[2022-04-23] MEDS ORDERED: hydrOXYzine HCl 25 MG TAB PO PRN ×2 (21:50)
[2022-04-23] MEDS: amLODIPine BESYLATE 5 MG TAB PO SCH (22:10)
[2022-04-23] MEDS: GABAPENTIN 100 MG CAP PO SCH (22:10)
[2022-04-23] MEDS: METOPROLOL SUCC 25MG EXT REL TAB PO SCH (22:10)
[2022-04-23] MEDS: INSULIN ASPART PER UNIT SC SCH (22:11)
[2022-04-23] MEDS: PANTOprazole 40 MG TAB PO SCH (22:11)
[2022-04-23] MEDS ORDERED: PHARMACY GLYCEMIC MGMT CONSULT PRN (23:42)
[2022-04-24] MEDS ORDERED: INSULIN GLARGINE SOLOSTAR 100 UNITS/ML 3 ML PEN SC SCH ×2 (09:00→10:15)
--- NOTE | 2022-04-24 09:10 | History & Physical ---
Date of Service April 24, 2022 Impression / Recommendations Impression 57 yo female with worsening depression, circumstances similar to stay 1 year ago but appears more withdrawn with delay in response and more difficulty providing history. Cannot exclude pseudodementia, most consistent with psychomotor retardation. Unclear how consistently she has been taking Effexor XR. Will administer 75 mg today so less likely to experience discontinuation syndrome if taking 150 mg sporadically. Likely none for past 2-3 days. (1) Major depressive disorder with current active episode: Major depression recurrence: unspecified whether recurrent Major depression episode severity: severe Psychotic features: without psychotic features Qualified Code(s): F32.2 - Major depressive disorder, single episode, severe without psychotic features (2) Hyperglycemia: (3) Open fracture of right great toe: (4) Diabetic ulcer of toe of right foot: The patient was admitted to the [facility] ([facility]) on q15 min checks (behavioral with suicide precautions) for safety. The patient will participate in group, recreational, and milieu therapies and will be offered additional individual and family sessions as clinically appropriate. Tapering Effexor due to severe recurrence on therapeutic dose. She believes she has taken Wellbutrin in the past so discussed Cymbalta, particularly given co- morbid diabetic neuropathy. Insulin pump is out with glycemic management per pharmacy consult. Wound nurse consult for toe dressing. Inventory Assets Strengths: help seeking, willing for med trials Needs: improved coping, outpatient therapy Suicide Risk Level Suicide Risk Level: High (q15 min suicide checks) (recurrent hospitalizations, severe depression, has access to insulin outside of unit but contracts with staff in hospital) Risk Factors Assessment : Yes Do You Have Access To A Gun?: No Health Problems: Yes Family History of Suicide: Yes Previous Psychiatric Hospitalization: Yes Hopelessness: Yes Protective Factors Assessment Employed: No Psychiatric History Identifying Data HENRIK HOWARD is a 57-year-old F from [place], presents with similar symptoms as last 2 psychiatric admissions 03/2021 to , and was admitted on 04/23/22 21:50 on a 201 voluntary commitment for suicidal thoughts and poor self care. Chief Complaint "[]". History of Present Illness The patient has been struggling with depression, increase in anxiety, and poor self-care since the of her partner of 7 years in January 2021. This t riggered past feeling of loss of a previous and also her father dying of a heart attack in front of her as a child. She has felt like she is a burden to her children. During her last stay she was to follow up with [facility] and [facility]. It is not clear that she has been compliant with medications, appointments or seeing a therapist. Since last contact she had a toe amputation and is currently being followed by wound clinic after a fracture of a different digit. During her ED CM assessment she endorsed "sadness, crying, loss of appetite, not taking her medications, not showering, and inability to sleep. She states her peers at group told her she may be experiencing anxiety and admitted to feeling restless and muscle tension. She states that she lives alone and believes she is still struggling/adjusting to that. She denies any tobacco, alcohol, or drug use. Patient states that she feels as if her diabetes has "gotten worse" as of recently since she is not taking care of herself. BSG is noted in the ED to be 299". When assessed by the liaison she did not know the day of the week or that last time she ate. She was encouraged to eat in the ED as part of medical clearance as her insulin pump had been removed and at that point insulin was being held until taking PO. Past Psychiatric History Current Psychiatric Diagnosis: depression, anxiety, ptsd Outpatient Services: [facility]--need to confirm status with Josie Sahu Previous Psych Admissions: 03/2021 X2 [facility], also 2002 for depression Do You Have Access To A Gun?: No History of Previous Suicide Attempt: No Past Medication Trials: Effexor XR, Wellbutrin, Celexa, Lexapro, Zoloft Allergies Allergy/AdvReac Type Severity Reaction Status Date / Time adhesive tape Allergy Mild PER PT Verified 04/23/22 13:35 "GLUE ON TAPE"--SKIN IRRITATION Home Medications Medication Instructions Recorded Confirmed Type aspirin 81 mg tablet,delayed 81 mg PO QAM 02/18/19 04/23/22 History release metformin 1,000 mg tablet,extended 1,000 mg PO BID 02/18/19 04/23/22 History release 24hr omeprazole 20 mg tablet,delayed 20 mg PO BID 02/18/19 04/23/22 History release amlodipine 2.5 mg tablet 2.5 mg PO QPM 03/27/19 04/23/22 History gabapentin 100 mg capsule 100 mg PO TID 07/21/19 04/23/22 History metoprolol succinate 25 mg 37.5 mg PO QPM 05/24/21 04/23/22 History tablet,extended release 24 hr rosuvastatin 40 mg tablet 40 mg PO QAM 05/24/21 04/23/22 History venlafaxine 150 mg 150 mg PO QAM 05/28/21 04/23/22 History capsule,extended release 24 hr (Effexor XR) cholecalciferol (vitamin D3) 50 50 mcg PO DAILY 12/30/21 04/23/22 History mcg (2,000 unit) capsule (Vitamin D3) cinnamon bark 500 mg capsule 1,000 mg PO QAM 12/30/21 04/23/22 History (Cinnamon) clonazepam 0.5 mg tablet 0.5 mg PO BID PRN 12/30/21 04/23/22 History insulin aspart U-100 100 unit/mL 200 unit SUBCUT UD 12/30/21 04/23/22 History subcutaneous solution insulin pump cart,cont inf,BT 12/30/21 04/23/22 History (Omnipod Dash Pods (Gen 4)) levothyroxine 150 mcg tablet 150 mcg PO DAILY 12/30/21 04/23/22 History (Synthroid) multivitamin with minerals 1 tab PO DAILY 12/30/21 04/23/22 History (Hair,Skin and Nails) turmeric root extract 500 mg 500 mg PO DAILY 12/30/21 04/23/22 History capsule dulaglutide 1.5 mg/0.5 mL 1.5 mg SUBCUT WK 03/18/22 04/23/22 History subcutaneous pen injector (Trulicity) Family History Family History of: None Alcohol History Hx of Alcohol Use Over the Past 12 Months: No AUDIT Total Score: 0 Smoking Use Have You Smoked or Used Tobacco Products in the Last 30 Days: No Smoking Status: Never smoker Substance History Hx of Prescription Med Misuse Over the Past 12 Months: No Hx of Over the Counter Med Misuse Over the Past 12 Months: No Hx of Inhalent Misuse Over the Past 12 Months: No Hx of Organic Substance Use Over the Past 12 Months: No Hx of Illegal Substances/Street Drug Use Over Past 12 Months: No Problems as a Result of Past Substance Use: None Identified Personal History Living Arrangements: Apartment Employment Status: Disabled Marital Status: Beliefs That Will Affect Care: None Current Legal Problems: No Hx Legal Problems: No Hx Traumatic Life Events: Yes Patient History Medical History Amputation of toe Anxiety Benign neoplasm of vulva of clitoris CAD (coronary artery disease) Depression Diabetes mellitus, type II insulin pump History of thyroid cancer with surgical intervention Hypertension Myocardial Infarction 12 YEARS AGO (FOLLOWED BY DR. DODSON) VERBALIZED NO HEART CATH DONE Peripheral neuropathy Restless leg syndrome Schwannoma REMOVED BY DR. GROSSMAN MARCH 2018 Stroke 7 YEARS AGO (LEFT SIDE WEAKNESS/LEFT EYE DROOPING) > follows with a neurologist unsure of name Suicidal ideation improving Tumor LEFT FEMUR (BENIGN) 2 TUMORS REMOVED > several yrs ago Vulvitis Surgical History Family history of reaction to anesthesia BROTHER-NAUSEA H/O blepharoplasty RT/LEFT History of anesthesia reaction SLOW TO WAKE UP History of cholecystectomy History of colonoscopy History of esophagogastroduodenoscopy (EGD) History of neck surgery anterior cervical discectomy with bilateral foraminotomies C6-7. #2 anterior cervical arthrodesis C6-7. #3 placement of titanium 9.9 mm cage filled with DBM and C6-7. #4 occasional hernandez plate and screws across C6-7 >> ROM no limitations History of surgery robot-assist left thorascopic resection of schwannoma from left upper mediastinum. 03/16/2018. SANG. A line. No issues. History of thyroidectomy, total History of tonsillectomy History of tooth extraction S/P LASIK surgery of both eyes Status post hysteroscopic ablation of endometrium Family History Grandmother (Maternal) Family history of diabetes mellitus Mother Ovarian cancer Father Myocardial infarction Social History Smoking Status: Never smoker Second Hand Exposure: No; Hx Alcohol Use: No Hx Substance Use: No Preferred Language: Kyrgyz Communication Ability: Effective Telecommunications Professional Required: No Beliefs That Will Affect Care: None marital status: / Current Living Situation: Alone Feels Safe at Home: Yes Assistive Devices: Glasses Review of Systems Review of Systems: All systems reviewed & are unremarkable except as noted in HPI & below Physical Exam Psychiatric: Orientation: alert and oriented x 3 Apperance: appropriately dressed and appropriately groomed Eye Contact: good eye contact Motor Behavior: no abnormal motor movements Speech: normal rate/rhythm/volume of speech Affect: + depressed affect Mood: + depressed mood Thought Process: goal directed thought process Thought Content: reality based without delusions Suicidal Thoughts: denies suicidal thoughts (but very hopeless, poor self care, passive), denies suicidal plan (though not caring for diabetes is dangerous) and denies suicidal intent (contracts for safety on unit) Homicidal Thoughts: denies homicidal thoughts Hallucinations: no auditory hallucinations and no visual hallucinations Cognition: attention grossly intact and language grossly intact Estimated Intelligence: consistent with education level Insight: + limited insight Judgement: + limited judgement Vital Signs (Past 24 Hours): Last Vital Signs Temp 36.6 C 04/24/22 06:00 Pulse 72 04/24/22 06:17 Resp 16 04/24/22 06:00 BP 114/80 04/24/22 06:17 Pulse Ox 98 04/23/22 22:55 Exam Statement: A physical exam was performed in the ED by Dr. Talbot for the purposes of medical clearance. I accept that physical as correct and adequate for the purposes of the inpatient physical exam. Results & Data ([facility]) Laboratory Results Laboratory Results - last 24 hr 04/23/22 04/23/22 04/23/22 13:30 13:30 13:34 WBC RBC Hgb Hct MCV MCH MCHC RDW Std Deviation RDW Coeff of Daphney Plt Count MPV Immature Gran % (Auto) Neut % (Auto) Lymph % (Auto) Weakley % (Auto) Eos % (Auto) Baso % (Auto) Neut # (Auto) Lymph # (Auto) Weakley # (Auto) Eos # (Auto) Baso # (Auto) Immature Gran # (Auto) Sodium Potassium Chloride Carbon Dioxide Anion Gap BUN Creatinine Est Cr Clr Drug Dosing Est GFR ( Amer) Est GFR (Non-Af Amer) BUN/Creatinine Ratio Glucose POC Glucose Calcium Total Bilirubin AST ALT Alkaline Phosphatase Total Protein Albumin Globulin Albumin/Globulin Ratio TSH Urine Color Yellow Urine Appearance Clear Urine pH 6.0 Ur Specific Clements 1.010 Urine Protein 1+ H Urine Glucose (UA) Trace H Urine Ketones Negative Urine Blood Negative Urine Nitrite Negative Urine Bilirubin Negative Urine Urobilinogen Negative Ur Leukocyte Esterase Trace H Urine WBC (Auto) 10-30 H Urine RBC (Auto) 0-4 U Hyaline Cast (Auto) 1-5 U Epithel Cells (Auto) >30 H Urine Bacteria (Auto) Negative Ur Renal Epithelial Cell Not Reportable Urine Mucus Present A Nasal Screen MRSA (PCR) Salicylates Urine Opiates Screen Neg Ur Methadone, Qual Neg Acetaminophen Urine Barbiturates Neg Ur Phencyclidine (PCP) Neg U Amphetamin/Meth Scrn Neg MDMA (Ecstasy) Screen Neg U Benzodiazepines Scrn Neg Ur Cocaine Metabolite Neg U Marijuana (THC) Screen Neg Ethyl Alcohol mg/dL SARS-CoV-2, RNA, NAAT NEGATIVE 04/23/22 04/23/22 04/23/22 13:45 13:45 13:45 WBC 13.20 H RBC 5.16 Hgb 15.0 Hct 44.9 MCV 87.0 MCH 29.1 MCHC 33.4 RDW Std Deviation 46.0 RDW Coeff of Daphney 14.4 Plt Count 302 MPV 9.7 Immature Gran % (Auto) 0.3 Neut % (Auto) 61.5 Lymph % (Auto) 27.7 Weakley % (Auto) 9.2 Eos % (Auto) 0.8 Baso % (Auto) 0.5 Neut # (Auto) 8.14 H Lymph # (Auto) 3.65 H Weakley # (Auto) 1.21 H Eos # (Auto) 0.10 Baso # (Auto) 0.06 Immature Gran # (Auto) 0.04 H Sodium 136 Potassium 3.6 Chloride 98 Carbon Dioxide 27 Anion Gap 11 BUN 10 Creatinine 1.08 Est Cr Clr Drug Dosing 64.1 Est GFR ( Amer) 65.1 Est GFR (Non-Af Amer) 56.1 BUN/Creatinine Ratio 9.3 L Glucose 299 H POC Glucose Calcium 9.2 Total Bilirubin 0.6 AST 59 H ALT 64 H Alkaline Phosphatase 105 H Total Protein 8.3 Albumin 4.6 Globulin 3.7 Albumin/Globulin Ratio 1.2 TSH 1.359 Urine Color Urine Appearance Urine pH Ur Specific Clements Urine Protein Urine Glucose (UA) Urine Ketones Urine Blood Urine Nitrite Urine Bilirubin Urine Urobilinogen Ur Leukocyte Esterase Urine WBC (Auto) Urine RBC (Auto) U Hyaline Cast (Auto) U Epithel Cells (Auto) Urine Bacteria (Auto) Ur Renal Epithelial Cell Urine Mucus Nasal Screen MRSA (PCR) Salicylates Urine Opiates Screen Ur Methadone, Qual Acetaminophen Urine Barbiturates Ur Phencyclidine (PCP) U Amphetamin/Meth Scrn MDMA (Ecstasy) Screen U Benzodiazepines Scrn Ur Cocaine Metabolite U Marijuana (THC) Screen Ethyl Alcohol mg/dL SARS-CoV-2, RNA, NAAT 04/23/22 04/23/22 04/23/22 13:45 13:45 15:05 WBC RBC Hgb Hct MCV MCH MCHC RDW Std Deviation RDW Coeff of Daphney Plt Count MPV Immature Gran % (Auto) Neut % (Auto) Lymph % (Auto) Weakley % (Auto) Eos % (Auto) Baso % (Auto) Neut # (Auto) Lymph # (Auto) Weakley # (Auto) Eos # (Auto) Baso # (Auto) Immature Gran # (Auto) Sodium Potassium Chloride Carbon Dioxide Anion Gap BUN Creatinine Est Cr Clr Drug Dosing Est GFR ( Amer) Est GFR (Non-Af Amer) BUN/Creatinine Ratio Glucose POC Glucose 286 H Calcium Total Bilirubin AST ALT Alkaline Phosphatase Total Protein Albumin Globulin Albumin/Globulin Ratio TSH Urine Color Urine Appearance Urine pH Ur Specific Clements Urine Protein Urine Glucose (UA) Urine Ketones Urine Blood Urine Nitrite Urine Bilirubin Urine Urobilinogen Ur Leukocyte Esterase Urine WBC (Auto) Urine RBC (Auto) U Hyaline Cast (Auto) U Epithel Cells (Auto) Urine Bacteria (Auto) Ur Renal Epithelial Cell Urine Mucus Nasal Screen MRSA (PCR) Salicylates < 3.0 L Urine Opiates Screen Ur Methadone, Qual Acetaminophen < 3 L Urine Barbiturates Ur Phencyclidine (PCP) U Amphetamin/Meth Scrn MDMA (Ecstasy) Screen U Benzodiazepines Scrn Ur Cocaine Metabolite U Marijuana (THC) Screen Ethyl Alcohol mg/dL < 10.0 SARS-CoV-2, RNA, NAAT 04/23/22 04/23/22 04/23/22 16:14 17:20 19:02 WBC RBC Hgb Hct MCV MCH MCHC RDW Std Deviation RDW Coeff of Daphney Plt Count MPV Immature Gran % (Auto) Neut % (Auto) Lymph % (Auto) Weakley % (Auto) Eos % (Auto) Baso % (Auto) Neut # (Auto) Lymph # (Auto) Weakley # (Auto) Eos # (Auto) Baso # (Auto) Immature Gran # (Auto) Sodium Potassium Chloride Carbon Dioxide Anion Gap BUN Creatinine Est Cr Clr Drug Dosing Est GFR ( Amer) Est GFR (Non-Af Amer) BUN/Creatinine Ratio Glucose POC Glucose 274 H 269 H Calcium Total Bilirubin AST ALT Alkaline Phosphatase Total Protein Albumin Globulin Albumin/Globulin Ratio TSH Urine Color Urine Appearance Urine pH Ur Specific Clements Urine Protein Urine Glucose (UA) Urine Ketones Urine Blood Urine Nitrite Urine Bilirubin Urine Urobilinogen Ur Leukocyte Esterase Urine WBC (Auto) Urine RBC (Auto) U Hyaline Cast (Auto) U Epithel Cells (Auto) Urine Bacteria (Auto) Ur Renal Epithelial Cell Urine Mucus Nasal Screen MRSA (PCR) Negative Salicylates Urine Opiates Screen Ur Methadone, Qual Acetaminophen Urine Barbiturates Ur Phencyclidine (PCP) U Amphetamin/Meth Scrn MDMA (Ecstasy) Screen U Benzodiazepines Scrn Ur Cocaine Metabolite U Marijuana (THC) Screen Ethyl Alcohol mg/dL SARS-CoV-2, RNA, NAAT 04/23/22 04/23/22 04/24/22 19:07 21:02 08:39 WBC RBC Hgb Hct MCV MCH MCHC RDW Std Deviation RDW Coeff of Daphney Plt Count MPV Immature Gran % (Auto) Neut % (Auto) Lymph % (Auto) Weakley % (Auto) Eos % (Auto) Baso % (Auto) Neut # (Auto) Lymph # (Auto) Weakley # (Auto) Eos # (Auto) Baso # (Auto) Immature Gran # (Auto) Sodium Potassium Chloride Carbon Dioxide Anion Gap BUN Creatinine Est Cr Clr Drug Dosing Est GFR ( Amer) Est GFR (Non-Af Amer) BUN/Creatinine Ratio Glucose POC Glucose 234 H 174 H 76 Calcium Total Bilirubin AST ALT Alkaline Phosphatase Total Protein Albumin Globulin Albumin/Globulin Ratio TSH Urine Color Urine Appearance Urine pH Ur Specific Clements Urine Protein Urine Glucose (UA) Urine Ketones Urine Blood Urine Nitrite Urine Bilirubin Urine Urobilinogen Ur Leukocyte Esterase Urine WBC (Auto) Urine RBC (Auto) U Hyaline Cast (Auto) U Epithel Cells (Auto) Urine Bacteria (Auto) Ur Renal Epithelial Cell Urine Mucus Nasal Screen MRSA (PCR) Salicylates Urine Opiates Screen Ur Methadone, Qual Acetaminophen Urine Barbiturates Ur Phencyclidine (PCP) U Amphetamin/Meth Scrn MDMA (Ecstasy) Screen U Benzodiazepines Scrn Ur Cocaine Metabolite U Marijuana (THC) Screen Ethyl Alcohol mg/dL SARS-CoV-2, RNA, NAAT Current Inpatient Medications Current Inpatient Medications: Current Inpatient Medications Acetaminophen (Acetaminophen 325 Mg Tab) 650 mg PO Q4H PRN PRN Reason: Headache or Minor Fever Stop: 05/23/22 21:49 Al Hydrox/Mg Hydrox/Simethicone (Aluminum/Magnesium Susp 30 Ml Udc) 30 ml PO Q4H PRN PRN Reason: GI Upset Stop: 05/23/22 21:49 Amlodipine Besylate (Amlodipine Besylate 5 Mg Tab) 2.5 mg PO QPM WILLIAM Stop: 05/23/22 20:59 Last Admin: 04/23/22 22:10 Dose: 2.5 mg Documented by: Bismuth Subsalicylate (Bismuth Subsalicylate Liqd 236 Ml) 15 ml PO PRN PRN PRN Reason: Loose Stool Stop: 05/23/22 21:49 Clonazepam (Clonazepam 0.5 Mg Tab) 0.5 mg PO BID PRN PRN Reason: Anxiety Stop: 05/23/22 20:09 Dextrose (Dextrose 50% 50 Ml Syringe) 25 - 50 ml IV UD PRN; Protocol PRN Reason: Hypoglycemia Protocol Stop: 05/23/22 21:14 Gabapentin (Gabapentin 100 Mg Cap) 100 mg PO TID WILLIAM Stop: 05/23/22 20:59 Last Admin: 04/23/22 22:10 Dose: 100 mg Documented by: Glucagon (Glucagon For Inj 1 Mg Vial) 1 mg IM UD PRN; Protocol PRN Reason: Hypoglycemia Protocol Stop: 05/23/22 21:14 Glucose (Glucose 40% Gel 15 Gm Tube) 15 - 30 gm PO UD PRN; Protocol PRN Reason: Hypoglycemia Protocol Stop: 05/23/22 21:14 Glucose (Glucose 10 Tabs/Tube) 4 - 8 tabs PO UD PRN; Protocol PRN Reason: Hypoglycemia Protocol Stop: 05/23/22 21:14 Hydroxyzine HCl (Hydroxyzine Hcl 25 Mg Tab) 50 mg PO HSZ PRN PRN Reason: Insomnia Stop: 05/23/22 21:49 Hydroxyzine HCl (Hydroxyzine Hcl 25 Mg Tab) 25 mg PO Q4H PRN PRN Reason: Anxiety Stop: 05/23/22 21:49 Insulin Aspart (Insulin Aspart Per Unit) 0 units SC ACHS WILLIAM Stop: 05/23/22 20:59 Last Admin: 04/23/22 22:11 Dose: Not Given Documented by: Insulin Glargine (Insulin Glargine Solostar 100 Units/Ml 3 Ml Pen) 40 units SC QAM [facility] Stop: 05/24/22 08:59 Magnesium Hydroxide (Magnesium Hydroxide Susp 30 Ml Udc) 30 ml PO DAILY PRN PRN Reason: Constipation Stop: 05/23/22 21:49 Metoprolol Succinate (Metoprolol Succ 25mg Ext Rel Tab) 37.5 mg PO QPM [facility] Stop: 05/23/22 20:59 Last Admin: 04/23/22 22:10 Dose: 37.5 mg Documented by: Miscellaneous (Carbohydrates For Hypoglycemia ) 15 - 30 gm PO UD PRN PRN Reason: Hypoglycemia Treatment Stop: 05/23/22 21:14 Miscellaneous Information (Pharmacy Glycemic Mgmt Consult) 1 ea N/A UD PRN PRN Reason: Consult Stop: 05/23/22 23:41 Pantoprazole Sodium (Pantoprazole 40 Mg Tab) 40 mg PO BID [facility] Stop: 05/23/22 20:59 Last Admin: 04/23/22 22:11 Dose: 40 mg Documented by: Sodium Chloride (Sodium Chloride 0.65% Na Soln 45 Ml ([place])) 1 - 2 sprays NA PRN PRN PRN Reason: Nasal Dryness/Congestion Stop: 05/23/22 21:49
[2022-04-24] MEDS: GABAPENTIN 100 MG CAP PO SCH ×3 (09:35→21:12)
[2022-04-24] MEDS: PANTOprazole 40 MG TAB PO SCH ×2 (09:35→21:13)
[2022-04-24] MEDS: INSULIN ASPART PER UNIT SC SCH ×4 (10:03→21:34)
--- NOTE | 2022-04-24 13:10 | Pharmacy Report ---
Pharmacy Glycemic Short Note 2 - Date of Service April 24, 2022 - Glycemic Short BSG Results (Last 24 hours): 04/23/22 04/23/22 04/23/22 13:45 15:05 16:14 Glucose 299 H POC Glucose 286 H 274 H 04/23/22 04/23/22 04/23/22 17:20 19:07 21:02 Glucose POC Glucose 269 H 234 H 174 H 04/24/22 04/24/22 08:39 12:06 Glucose POC Glucose 76 101 H OUTPATIENT ANTIDIABETIC REGIMEN: * Trulicity 1.5 mg SQ weekly * Novolog in Omnipod insulin pump * Metformin ER 1 gm PO BID ASSESSMENT: * 57 y/o F admitted for mental health evaluation. Patient with history of Type 2 diabetes managed at home on 3 anti-diabetic meds including Novolog insulin pump. * Novolog insulin pump was taken off last night and patient is currently being managed on basal and bolus insulin only. * Oral Metformin on hold currently since patient has hardly been eating well. Plan to resume Metformin when food intake is better. * She received basal insulin 40 units last night. On prior admissions, patient has needed higher basal doses, between 65 to 75 units. * Yesterday at dinner, her BSG trended up to 274 mg/dl, she received 10 units of bolus at that time. * Since she is not eating well currently, I scaled back her basal insulin dose for tonight (between 20-30 units dependant on BSG at HS). * Fasting BSG was only 76 mg/dl this am and pre-lunch BSG of 101 mg/dl. * Novolog continued with meals and HS. PLAN FOR INPATIENT GLYCEMIC CONTROL: * Hold outpatient oral diabetes medications and Trulicity. * Basal insulin * Lantus 20-30 units scale SQ HS based on BSG (see EMR for details). * Bolus insulin * NovoLog per scale ACHS or Q6hrs while NPO * Goal Range: Low 110 mg/dL - High 140 mg/dL * Correction Factor: 20 mg/dL/unit * Nutritional / Prandial insulin per carb ratio of 1 unit per 6 grams CHO consumed
[2022-04-24] MEDS ORDERED: METFORMIN 1000 MG PO SCH (17:45)
[2022-04-24] MEDS: amLODIPine BESYLATE 5 MG TAB PO SCH (21:11)
[2022-04-24] MEDS: METOPROLOL SUCC 25MG EXT REL TAB PO SCH (21:12)
[2022-04-24] MEDS: INSULIN GLARGINE SOLOSTAR 100 UNITS/ML 3 ML PEN SC SCH (21:30)
[2022-04-25 08:57] LABS: Estimated Average Glucose 295 mg/dl; Hemoglobin A1C 11.9 % (4.5-5.6)
[2022-04-25] MEDS ORDERED: VENLAFAXINE HCL XR 75 MG CAPXR PO SCH (09:00)
[2022-04-25] MEDS: INSULIN ASPART PER UNIT SC SCH ×4 (09:25→21:40)
[2022-04-25] MEDS: PANTOprazole 40 MG TAB PO SCH ×2 (09:27→21:20)
[2022-04-25] MEDS: LEVOTHYROXINE SODIUM 150 MCG TABLET PO SCH (09:27)
[2022-04-25] MEDS: ASPIRIN 81 MG ECTAB PO SCH (09:28)
[2022-04-25] MEDS: GABAPENTIN 100 MG CAP PO SCH ×3 (09:28→21:19)
[2022-04-25] MEDS: CHOLECALCIFEROL 1,000 UNITS 25 MCG TAB PO SCH (09:28)
[2022-04-25] MEDS: ROSUVASTATIN CALCIUM 20 MG TAB PO SCH (09:28)
[2022-04-25] MEDS: amLODIPine BESYLATE 5 MG TAB PO SCH (21:17)
[2022-04-25] MEDS: METOPROLOL SUCC 25MG EXT REL TAB PO SCH (21:19)
[2022-04-25] MEDS: INSULIN GLARGINE SOLOSTAR 100 UNITS/ML 3 ML PEN SC SCH (21:46)
[2022-04-26] MEDS: LEVOTHYROXINE SODIUM 150 MCG TABLET PO SCH (08:47)
[2022-04-26] MEDS: ROSUVASTATIN CALCIUM 20 MG TAB PO SCH (08:48)
[2022-04-26] MEDS: ASPIRIN 81 MG ECTAB PO SCH (08:49)
[2022-04-26] MEDS: PANTOprazole 40 MG TAB PO SCH ×2 (08:49→20:50)
[2022-04-26] MEDS: CHOLECALCIFEROL 1,000 UNITS 25 MCG TAB PO SCH (08:49)
[2022-04-26] MEDS: GABAPENTIN 100 MG CAP PO SCH ×3 (08:49→20:50)
[2022-04-26] MEDS: INSULIN ASPART PER UNIT SC SCH ×4 (08:57→21:06)
[2022-04-26] MEDS ORDERED: VENLAFAXINE HCL XR 37.5 MG CAPXR PO ONE (09:00)
[2022-04-26] MEDS ORDERED: DULoxetine HCL 20 MG CAP PO SCH (09:00)
--- NOTE | 2022-04-26 13:02 | Pharmacy Report ---
Pharmacy Glycemic Short Note 2 - Date of Service April 26, 2022 - Glycemic Short BSG Results (Last 24 hours): 04/25/22 04/25/22 04/25/22 13:00 17:16 21:11 POC Glucose 132 H 181 H 173 H 04/26/22 04/26/22 08:35 12:46 POC Glucose 136 H 162 H OUTPATIENT ANTIDIABETIC REGIMEN: * Trulicity 1.5 mg SQ weekly * Novolog in Omnipod insulin pump * Metformin ER 1 gm PO BID HbA1c: 11.9% (04/25/22) ASSESSMENT: 04/26/22 * BSGs remain reasonably well-controlled over past 24 hours * Received 47 units of insulin yesterday (30 units of basal and 17 units of prandial/correctional bolus) * No change anticipated to current insulin regimen today 04/24/22 * 57 y/o F admitted for mental health evaluation. Patient with history of Type 2 diabetes managed at home on 3 anti-diabetic meds including Novolog insulin pump. * Novolog insulin pump was taken off last night and patient is currently being managed on basal and bolus insulin only. * Oral Metformin on hold currently since patient has hardly been eating well. Plan to resume Metformin when food intake is better. * She received basal insulin 40 units last night. On prior admissions, patient has needed higher basal doses, between 65 to 75 units. * Yesterday at dinner, her BSG trended up to 274 mg/dl, she received 10 units of bolus at that time. * Since she is not eating well currently, I scaled back her basal insulin dose for tonight (between 20-30 units dependant on BSG at HS). * Fasting BSG was only 76 mg/dl this am and pre-lunch BSG of 101 mg/dl. * Novolog continued with meals and HS. PLAN FOR INPATIENT GLYCEMIC CONTROL: * Hold outpatient oral diabetes medications and Trulicity. * Basal insulin * Lantus 30 units SC HS * Bolus insulin * NovoLog per scale ACHS or Q6hrs while NPO * Goal Range: Low 110 mg/dL - High 140 mg/dL * Correction Factor: 15 mg/dL/unit * Nutritional / Prandial insulin per carb ratio of 1 unit per 5 grams CHO consumed
--- NOTE | 2022-04-26 13:11 | Psychiatric Progress Note ---
Date of Service LATE ENTRY FOR APRIL 25, 2022 entered on April 26, 2022 Impression / Recommendations Impression 57 yo female with worsening depression, circumstances similar to stay 1 year ago but appears more withdrawn with delay in response and more difficulty providing history. Cannot exclude pseudodementia, most consistent with psychomotor retardation. 04/25/2022: Tapering Effexor in favor of a trial of Cymbalta. (1) Major depressive disorder with current active episode: (2) Hyperglycemia: (3) Open fracture of right great toe: (4) Diabetic ulcer of toe of right foot: 04/25/2022: Risks/benefits/alternatives reviewed re: antidepressants for the treatment of depression and/or anxiety. The patient agreed to a trial of Cymbalta 20 mg daily and titrate when done with Effexor taper. 04/24/2022: The patient was admitted to the [facility] ([facility] mental [facility] unit) on q15 min checks (behavioral with suicide precautions) for safety. The patient will participate in group, recreational, and milieu therapies and will be offered additional individual and family sessions as clinically appropriate. Tapering Effexor due to severe recurrence on therapeutic dose. She believes she has taken Wellbutrin in the past so discussed Cymbalta, particularly given co- morbid diabetic neuropathy. Insulin pump is out with glycemic management per pharmacy consult. Wound nurse consult for toe dressing. Inventory Assets Strengths: help seeking, willing for med trials Needs: improved coping, outpatient therapy Suicide Risk Level Suicide Risk Level: High (q15 min suicide checks) (recurrent hospitalizations, severe depression, has access to insulin outside of unit but contracts with staff in hospital) Risk Factors Assessment : Yes Do You Have Access To A Gun?: No Health Problems: Yes Family History of Suicide: Yes Previous Psychiatric Hospitalization: Yes Hopelessness: Yes Protective Factors Assessment Employed: No Interval History Identifying Information HENRIK HOWARD is a 57-year-old F from [place], presents with similar symptoms as last 2 psychiatric admissions 03/2021 to , and was admitted on 04/23/22 21:50 on a 201 voluntary commitment for suicidal thoughts and poor self care. Chief Complaint "I wasn't right yesterday". Review of Systems Sleep Information Total Hours of Sleep: 6.5 Sleep Comments: pt on q-15 minute checks Meal Information Percent Meal Consumed - Breakfast: 15 Percent Meal Consumed - Lunch: 50 Percent Meal Consumed - Dinner: 10 Subjective Subjective Patient was seen & assessed and interval progress reviewed with treatment team. Patient was rather slowed/quiet compared to her previous presentation. Seemed to have difficulty with memory but overall compliant with diabetes care/dressing changes, etc. Physical Exam Psychiatric Orientation: alert and oriented x 3 Apperance: appropriately dressed and appropriately groomed Eye Contact: good eye contact Motor Behavior: no abnormal motor movements Speech: normal rate/rhythm/volume of speech Affect: + depressed affect Mood: + depressed mood Thought Process: goal directed thought process Thought Content: reality based without delusions Suicidal Thoughts: denies suicidal thoughts (but very hopeless, poor self care, passive) Homicidal Thoughts: denies homicidal thoughts Hallucinations: no auditory hallucinations and no visual hallucinations Cognition: attention grossly intact and language grossly intact Estimated Intelligence: consistent with education level Insight: + limited insight Judgement: + limited judgement Vital Signs (Past 24 Hours) Last Vital Signs Temp 36.8 C 04/26/22 06:32 Pulse 73 04/26/22 06:33 Resp 16 04/26/22 06:32 BP 99/65 L 04/26/22 06:33 Pulse Ox 98 04/23/22 22:55 Results & Data ([facility]) Laboratory Results Laboratory Results - last 24 hr 04/25/22 04/25/22 04/26/22 17:16 21:11 08:35 POC Glucose 181 H 173 H 136 H 04/26/22 12:46 POC Glucose 162 H Current Inpatient Medications Current Inpatient Medications: Current Inpatient Medications Acetaminophen (Acetaminophen 325 Mg Tab) 650 mg PO Q4H PRN PRN Reason: Headache or Minor Fever Stop: 05/23/22 21:49 Al Hydrox/Mg Hydrox/Simethicone (Aluminum/Magnesium Susp 30 Ml Udc) 30 ml PO Q4H PRN PRN Reason: GI Upset Stop: 05/23/22 21:49 Amlodipine Besylate (Amlodipine Besylate 5 Mg Tab) 2.5 mg PO QPM WILLIAM Stop: 05/23/22 20:59 Last Admin: 04/25/22 21:17 Dose: 2.5 mg Documented by: Aspirin (Aspirin 81 Mg Ectab) 81 mg PO QAM WILLIAM Stop: 05/25/22 08:59 Last Admin: 04/26/22 08:49 Dose: 81 mg Documented by: Bismuth Subsalicylate (Bismuth Subsalicylate Liqd 236 Ml) 15 ml PO PRN PRN PRN Reason: Loose Stool Stop: 05/23/22 21:49 Clonazepam (Clonazepam 0.5 Mg Tab) 0.5 mg PO BID PRN PRN Reason: Anxiety Stop: 05/23/22 20:09 Dextrose (Dextrose 50% 50 Ml Syringe) 25 - 50 ml IV UD PRN; Protocol PRN Reason: Hypoglycemia Protocol Stop: 05/23/22 21:14 Duloxetine HCl (Duloxetine Hcl 20 Mg Cap) 20 mg PO QAM WILLIAM Stop: 05/26/22 08:59 Last Admin: 04/26/22 08:48 Dose: 20 mg Documented by: Gabapentin (Gabapentin 100 Mg Cap) 100 mg PO TID [facility] Stop: 05/23/22 20:59 Last Admin: 04/26/22 08:49 Dose: 100 mg Documented by: Glucagon (Glucagon For Inj 1 Mg Vial) 1 mg IM UD PRN; Protocol PRN Reason: Hypoglycemia Protocol Stop: 05/23/22 21:14 Glucose (Glucose 40% Gel 15 Gm Tube) 15 - 30 gm PO UD PRN; Protocol PRN Reason: Hypoglycemia Protocol Stop: 05/23/22 21:14 Glucose (Glucose 10 Tabs/Tube) 4 - 8 tabs PO UD PRN; Protocol PRN Reason: Hypoglycemia Protocol Stop: 05/23/22 21:14 Hydroxyzine HCl (Hydroxyzine Hcl 25 Mg Tab) 50 mg PO HSZ PRN PRN Reason: Insomnia Stop: 05/23/22 21:49 Hydroxyzine HCl (Hydroxyzine Hcl 25 Mg Tab) 25 mg PO Q4H PRN PRN Reason: Anxiety Stop: 05/23/22 21:49 Insulin Aspart (Insulin Aspart Per Unit) 0 units SC ACHS WILLIAM Stop: 05/23/22 20:59 Last Admin: 04/26/22 08:57 Dose: Not Given Documented by: Insulin Glargine (Insulin Glargine Solostar 100 Units/Ml 3 Ml Pen) 30 units SC HS [facility] Stop: 05/24/22 21:59 Levothyroxine Sodium (Levothyroxine Sodium 150 Mcg Tablet) 150 mcg PO DAILYBB WILLIAM Stop: 05/25/22 07:59 Last Admin: 04/26/22 08:47 Dose: 150 mcg Documented by: Magnesium Hydroxide (Magnesium Hydroxide Susp 30 Ml Udc) 30 ml PO DAILY PRN PRN Reason: Constipation Stop: 05/23/22 21:49 Metoprolol Succinate (Metoprolol Succ 25mg Ext Rel Tab) 37.5 mg PO QPM WILLIAM Stop: 05/23/22 20:59 Last Admin: 04/25/22 21:19 Dose: 37.5 mg Documented by: Miscellaneous (Carbohydrates For Hypoglycemia ) 15 - 30 gm PO UD PRN PRN Reason: Hypoglycemia Treatment Stop: 05/23/22 21:14 Miscellaneous Information (Pharmacy Glycemic Mgmt Consult) 1 ea N/A UD PRN PRN Reason: Consult Stop: 05/23/22 23:41 Pantoprazole Sodium (Pantoprazole 40 Mg Tab) 40 mg PO BID WILLIAM Stop: 05/23/22 20:59 Last Admin: 04/26/22 08:49 Dose: 40 mg Documented by: Rosuvastatin Calcium (Rosuvastatin Calcium 20 Mg Tab) 40 mg PO QAM WILLIAM Stop: 05/25/22 08:59 Last Admin: 04/26/22 08:48 Dose: 40 mg Documented by: Sodium Chloride (Sodium Chloride 0.65% Na Soln 45 Ml ([place])) 1 - 2 sprays NA PRN PRN PRN Reason: Nasal Dryness/Congestion Stop: 05/23/22 21:49 Vitamin D (Cholecalciferol 1,000 Units 25 Mcg Tab) 2,000 units PO DAILY WILLIAM Stop: 05/25/22 08:59 Last Admin: 04/26/22 08:49 Dose: 2,000 units Documented by: Mental Health & Subst Abuse Tx Psychiatrist Name of Psychiatrist: Josie Sahu PA-C,[facility] Time of Appointment with Psychiatrist: Pt is uncertain Therapist Name of Therapist: sees [facility] Mondays, Tuesdays, Reimbursement Rep Name of Reimbursement Rep: Denies Post Discharge Appointments Primary Care Physician Name Of Family Doctor: Ivonne French Time of Appointment with PCP: Pt is uncertain Partial or Psych Rehab Name of Partial or Psych Rehab: [facility] Phone Number of Partial or Psych Rehab: [phone] Specialist Name of Specialist: [facility] Phone Number for Specialist: [phone] Contact Information Discharge Discharge Address: [address] [place], [place] [address]RALE[place] Rolon [address] (1) Major depressive disorder with current active episode Major depression recurrence: unspecified whether recurrent Major depression episode severity: severe Psychotic features: without psychotic features Qualified Code(s): F32.2 - Major depressive disorder, single episode, severe without psychotic features
--- NOTE | 2022-04-26 13:34 | Psychiatric Progress Note ---
Date of Service April 26, 2022 Impression / Recommendations Impression 57 yo female with worsening depression, circumstances similar to stay 1 year ago but appears more withdrawn with delay in response and more difficulty providing history. Cannot exclude pseudodementia, most consistent with psychomotor retardation. 04/26/2022: Slight improvement, suspect her retardation or "brain fog" was related to Effexor XR discontinuation syndrome and poor diet/glucose control. (1) Major depressive disorder with current active episode: (2) Hyperglycemia: (3) Open fracture of right great toe: (4) Diabetic ulcer of toe of right foot: 04/26/22: wound management with dressing changes daily/cooperative with boot. Titrate Cymbalta to 30 mg tomorrow am. 04/25/2022: Risks/benefits/alternatives reviewed re: antidepressants for the treatment of depression and/or anxiety. The patient agreed to a trial of Cymbalta 20 mg daily and titrate when done with Effexor taper. 04/24/2022: The patient was admitted to the [facility] ([facility] mental health unit) on q15 min checks (behavioral with suicide precautions) for safety. The patient will participate in group, recreational, and milieu therapies and will be offered additional individual and family sessions as clinically appropriate. Tapering Effexor due to severe recurrence on therapeutic dose. She believes she has taken Wellbutrin in the past so discussed Cymbalta, particularly given co-mo rbid diabetic neuropathy. Insulin pump is out with glycemic management per pharmacy consult. Wound nurse consult for toe dressing. Inventory Assets Strengths: help seeking, willing for med trials Needs: improved coping, outpatient therapy Suicide Risk Level Suicide Risk Level: Moderate (q15 min suicide checks) (manuel on unit, mood appears to be improving.) Risk Factors Assessment : Yes Do You Have Access To A Gun?: No Health Problems: Yes Family History of Suicide: Yes Previous Psychiatric Hospitalization: Yes Hopelessness: Yes Protective Factors Assessment Employed: No Interval History Identifying Information HENRIK HOWARD is a 57-year-old F from [place], presents with similar symptoms as last 2 psychiatric admissions 03/2021 to , and was admitted on 04/23/22 21:50 on a 201 voluntary commitment for suicidal thoughts and poor self care. Chief Complaint "I guess I feel a little more like myself". Review of Systems Sleep Information Total Hours of Sleep: 6.5 Sleep Comments: pt on q-15 minute checks Meal Information Percent Meal Consumed - Breakfast: 15 Percent Meal Consumed - Lunch: 50 Percent Meal Consumed - Dinner: 10 Subjective Subjective Patient was seen & assessed and interval progress reviewed with nursing and social work. The patient has been cooperative with kaylynn. Good glycemic management by pharmacy. States she is better able to communicate. Admits again to poor compliance with medications on an outpatient basis. Physical Exam Psychiatric Orientation: alert and oriented x 3 Apperance: appropriately dressed and appropriately groomed Eye Contact: good eye contact Motor Behavior: no abnormal motor movements Speech: normal rate/rhythm/volume of speech Affect: euthymic affect Mood: + depressed mood Thought Process: goal directed thought process Thought Content: reality based without delusions Suicidal Thoughts: denies suicidal intent (contracts for safety on unit) Homicidal Thoughts: denies homicidal thoughts Hallucinations: no auditory hallucinations and no visual hallucinations Cognition: attention grossly intact and language grossly intact Estimated Intelligence: consistent with education level Insight: + limited insight Judgement: + limited judgement Vital Signs (Past 24 Hours) Last Vital Signs Temp 36.8 C 04/26/22 06:32 Pulse 73 04/26/22 06:33 Resp 16 04/26/22 06:32 BP 99/65 L 04/26/22 06:33 Pulse Ox 98 04/23/22 22:55 Results & Data ([facility]) Laboratory Results Laboratory Results - last 24 hr 04/25/22 04/25/22 04/26/22 17:16 21:11 08:35 POC Glucose 181 H 173 H 136 H 04/26/22 12:46 POC Glucose 162 H Current Inpatient Medications Current Inpatient Medications: Current Inpatient Medications Acetaminophen (Acetaminophen 325 Mg Tab) 650 mg PO Q4H PRN PRN Reason: Headache or Minor Fever Stop: 05/23/22 21:49 Al Hydrox/Mg Hydrox/Simethicone (Aluminum/Magnesium Susp 30 Ml Udc) 30 ml PO Q4H PRN PRN Reason: GI Upset Stop: 05/23/22 21:49 Amlodipine Besylate (Amlodipine Besylate 5 Mg Tab) 2.5 mg PO QPM WILLIAM Stop: 05/23/22 20:59 Last Admin: 04/25/22 21:17 Dose: 2.5 mg Documented by: Aspirin (Aspirin 81 Mg Ectab) 81 mg PO QAM WILLIAM Stop: 05/25/22 08:59 Last Admin: 04/26/22 08:49 Dose: 81 mg Documented by: Bismuth Subsalicylate (Bismuth Subsalicylate Liqd 236 Ml) 15 ml PO PRN PRN PRN Reason: Loose Stool Stop: 05/23/22 21:49 Clonazepam (Clonazepam 0.5 Mg Tab) 0.5 mg PO BID PRN PRN Reason: Anxiety Stop: 05/23/22 20:09 Dextrose (Dextrose 50% 50 Ml Syringe) 25 - 50 ml IV UD PRN; Protocol PRN Reason: Hypoglycemia Protocol Stop: 05/23/22 21:14 Duloxetine HCl (Duloxetine Hcl 20 Mg Cap) 20 mg PO QAM WILLIAM Stop: 05/26/22 08:59 Last Admin: 04/26/22 08:48 Dose: 20 mg Documented by: Gabapentin (Gabapentin 100 Mg Cap) 100 mg PO TID WILLIAM Stop: 05/23/22 20:59 Last Admin: 04/26/22 08:49 Dose: 100 mg Documented by: Glucagon (Glucagon For Inj 1 Mg Vial) 1 mg IM UD PRN; Protocol PRN Reason: Hypoglycemia Protocol Stop: 05/23/22 21:14 Glucose (Glucose 40% Gel 15 Gm Tube) 15 - 30 gm PO UD PRN; Protocol PRN Reason: Hypoglycemia Protocol Stop: 05/23/22 21:14 Glucose (Glucose 10 Tabs/Tube) 4 - 8 tabs PO UD PRN; Protocol PRN Reason: Hypoglycemia Protocol Stop: 05/23/22 21:14 Hydroxyzine HCl (Hydroxyzine Hcl 25 Mg Tab) 50 mg PO HSZ PRN PRN Reason: Insomnia Stop: 05/23/22 21:49 Hydroxyzine HCl (Hydroxyzine Hcl 25 Mg Tab) 25 mg PO Q4H PRN PRN Reason: Anxiety Stop: 05/23/22 21:49 Insulin Aspart (Insulin Aspart Per Unit) 0 units SC ACHS [facility] Stop: 05/23/22 20:59 Last Admin: 04/26/22 13:05 Dose: 4 units Documented by: Insulin Glargine (Insulin Glargine Solostar 100 Units/Ml 3 Ml Pen) 30 units SC HS [facility] Stop: 05/24/22 21:59 Levothyroxine Sodium (Levothyroxine Sodium 150 Mcg Tablet) 150 mcg PO DAILYBB [facility] Stop: 05/25/22 07:59 Last Admin: 04/26/22 08:47 Dose: 150 mcg Documented by: Magnesium Hydroxide (Magnesium Hydroxide Susp 30 Ml Udc) 30 ml PO DAILY PRN PRN Reason: Constipation Stop: 05/23/22 21:49 Metoprolol Succinate (Metoprolol Succ 25mg Ext Rel Tab) 37.5 mg PO QPM WILLIAM Stop: 05/23/22 20:59 Last Admin: 04/25/22 21:19 Dose: 37.5 mg Documented by: Miscellaneous (Carbohydrates For Hypoglycemia ) 15 - 30 gm PO UD PRN PRN Reason: Hypoglycemia Treatment Stop: 05/23/22 21:14 Miscellaneous Information (Pharmacy Glycemic Mgmt Consult) 1 ea N/A UD PRN PRN Reason: Consult Stop: 05/23/22 23:41 Pantoprazole Sodium (Pantoprazole 40 Mg Tab) 40 mg PO BID [facility] Stop: 05/23/22 20:59 Last Admin: 04/26/22 08:49 Dose: 40 mg Documented by: Rosuvastatin Calcium (Rosuvastatin Calcium 20 Mg Tab) 40 mg PO QAM WILLIAM Stop: 05/25/22 08:59 Last Admin: 04/26/22 08:48 Dose: 40 mg Documented by: Sodium Chloride (Sodium Chloride 0.65% Na Soln 45 Ml ([place])) 1 - 2 sprays NA PRN PRN PRN Reason: Nasal Dryness/Congestion Stop: 05/23/22 21:49 Vitamin D (Cholecalciferol 1,000 Units 25 Mcg Tab) 2,000 units PO DAILY WILLIAM Stop: 05/25/22 08:59 Last Admin: 04/26/22 08:49 Dose: 2,000 units Documented by: Mental Health & Subst Abuse Tx Psychiatrist Name of Psychiatrist: Josie Sahu PA-C,[facility] Time of Appointment with Psychiatrist: Pt is uncertain Therapist Name of Therapist: sees [facility] Mondays, Tuesdays, [address] Vendor Name of [address] Vendor: Denies Post Discharge Appointments Primary Care Physician Name Of Family Doctor: Ivonne French Time of Appointment with PCP: Pt is uncertain Partial or Psych Rehab Name of Partial or Psych Rehab: [facility] Phone Number of Partial or Psych Rehab: [phone] Specialist Name of Specialist: [facility] Phone Number for Specialist: [phone] Contact Information Discharge Discharge Address: [address] [place], [place] [address]on [id number] (1) Major depressive disorder with current active episode Major depression recurrence: unspecified whether recurrent Major depression episode severity: severe Psychotic features: without psychotic features Qualified Code(s): F32.2 - Major depressive disorder, single episode, severe without psychotic features
[2022-04-26] MEDS: METOPROLOL SUCC 25MG EXT REL TAB PO SCH (20:51)
[2022-04-26] MEDS: amLODIPine BESYLATE 5 MG TAB PO SCH (20:51)
[2022-04-26] MEDS ORDERED: INSULIN GLARGINE SOLOSTAR 100 UNITS/ML 3 ML PEN SC SCH (22:00)
[2022-04-27] MEDS: INSULIN ASPART PER UNIT SC SCH ×4 (08:34→20:52)
[2022-04-27] MEDS: GABAPENTIN 100 MG CAP PO SCH ×3 (08:35→20:49)
[2022-04-27] MEDS: CHOLECALCIFEROL 1,000 UNITS 25 MCG TAB PO SCH (08:35)
[2022-04-27] MEDS: DULoxetine HCL 30 MG CAP PO SCH (08:36)
[2022-04-27] MEDS: ASPIRIN 81 MG ECTAB PO SCH (08:36)
[2022-04-27] MEDS: LEVOTHYROXINE SODIUM 150 MCG TABLET PO SCH (08:37)
[2022-04-27] MEDS: ROSUVASTATIN CALCIUM 20 MG TAB PO SCH (08:38)
[2022-04-27] MEDS: PANTOprazole 40 MG TAB PO SCH ×2 (08:40→20:50)
--- NOTE | 2022-04-27 17:25 | Psychiatric Progress Note ---
Date of Service April 27, 2022 Impression / Recommendations Impression 57 yo female with worsening depression, circumstances similar to stay 1 year ago but appears more withdrawn with delay in response and more difficulty providing history. Cannot exclude pseudodementia, most consistent with psychomotor retardation. 04/27/22: tolerating Cymbalta (1) Major depressive disorder with current active episode: (2) Hyperglycemia: (3) Open fracture of right great toe: (4) Diabetic ulcer of toe of right foot: 04/27/22: continue current meds and tx plan. 04/26/22: wound management with dressing changes daily/cooperative with boot. Titrate Cymbalta to 30 mg tomorrow am. 04/25/2022: Risks/benefits/alternatives reviewed re: antidepressants for the treatment of depression and/or anxiety. The patient agreed to a trial of Cymbalta 20 mg daily and titrate when done with Effexor taper. 04/24/2022: The patient was admitted to the [facility] on q15 min checks (behavioral with suicide precautions) for safety. The patient will participate in group, recreational, and milieu therapies and will be offered additional individual and family sessions as clinically appropriate. Tapering Effexor due to severe recurrence on therapeutic dose. She believes she has taken Wellbutrin in the past so discussed Cymbalta, particularly given co- morbid diabetic neuropathy. Insulin pump is out with glycemic management per pharmacy consult. Wound nurse consult for toe dressing. Inventory Assets Strengths: help seeking, willing for med trials Needs: improved coping, outpatient therapy Suicide Risk Level Suicide Risk Level: Moderate (q15 min suicide checks) (manuel on unit, mood appears to be improving.) Risk Factors Assessment : Yes Do You Have Access To A Gun?: No Health Problems: Yes Family History of Suicide: Yes Previous Psychiatric Hospitalization: Yes Hopelessness: Yes Protective Factors Assessment Employed: No Interval History Identifying Information HENRIK HOWARD is a 57-year-old F from [place], presents with similar symptoms as last 2 psychiatric admissions 03/2021 to , and was admitted on 04/23/22 21:50 on a 201 voluntary commitment for suicidal thoughts and poor self care. Chief Complaint "yeah I guess I'll be able to manage soon". Review of Systems Sleep Information Total Hours of Sleep: 9 Sleep Comments: pt on q-15 minute checks Meal Information Percent Meal Consumed - Breakfast: 75 Percent Meal Consumed - Lunch: 100 Percent Meal Consumed - Dinner: 75 Subjective Subjective Patient was seen & assessed and interval progress reviewed with treatment team. Educated patient re: her HgbA1c and how this relates to her average daily sugar and self care. telehealth nurse educator came to meet with patient on unit as well. she stated she does not want to pursue a [facility]. She had a meeting with her brother. Physical Exam Psychiatric Orientation: alert and oriented x 3 Apperance: appropriately dressed and appropriately groomed Eye Contact: good eye contact Motor Behavior: no abnormal motor movements Speech: normal rate/rhythm/volume of speech Affect: + depressed affect Mood: + depressed mood Thought Process: goal directed thought process Thought Content: reality based without delusions Suicidal Thoughts: denies suicidal thoughts Homicidal Thoughts: denies homicidal thoughts Hallucinations: no auditory hallucinations and no visual hallucinations Cognition: attention grossly intact and language grossly intact Estimated Intelligence: consistent with education level Insight: + limited insight Judgement: + limited judgement Vital Signs (Past 24 Hours) Last Vital Signs Temp 36.7 C 04/27/22 06:38 Pulse 75 04/27/22 06:38 Resp 16 04/27/22 06:38 BP 105/66 04/27/22 06:38 Pulse Ox 98 04/23/22 22:55 Results & Data ([facility]) Laboratory Results Laboratory Results - last 24 hr 04/26/22 04/26/22 04/27/22 17:14 20:32 08:14 POC Glucose 184 H 223 H 108 H 04/27/22 04/27/22 12:26 16:56 POC Glucose 151 H 187 H Current Inpatient Medications Current Inpatient Medications: Current Inpatient Medications Acetaminophen (Acetaminophen 325 Mg Tab) 650 mg PO Q4H PRN PRN Reason: Headache or Minor Fever Stop: 05/23/22 21:49 Al Hydrox/Mg Hydrox/Simethicone (Aluminum/Magnesium Susp 30 Ml Udc) 30 ml PO Q4H PRN PRN Reason: GI Upset Stop: 05/23/22 21:49 Amlodipine Besylate (Amlodipine Besylate 5 Mg Tab) 2.5 mg PO QPM WILLIAM Stop: 05/23/22 20:59 Last Admin: 04/26/22 20:51 Dose: 2.5 mg Documented by: Aspirin (Aspirin 81 Mg Ectab) 81 mg PO QAM WILLIAM Stop: 05/25/22 08:59 Last Admin: 04/27/22 08:36 Dose: 81 mg Documented by: Bismuth Subsalicylate (Bismuth Subsalicylate Liqd 236 Ml) 15 ml PO PRN PRN PRN Reason: Loose Stool Stop: 05/23/22 21:49 Clonazepam (Clonazepam 0.5 Mg Tab) 0.5 mg PO BID PRN PRN Reason: Anxiety Stop: 05/23/22 20:09 Dextrose (Dextrose 50% 50 Ml Syringe) 25 - 50 ml IV UD PRN; Protocol PRN Reason: Hypoglycemia Protocol Stop: 05/23/22 21:14 Duloxetine HCl (Duloxetine Hcl 30 Mg Cap) 30 mg PO QAM [facility] Stop: 05/27/22 08:59 Last Admin: 04/27/22 08:36 Dose: 30 mg Documented by: Gabapentin (Gabapentin 100 Mg Cap) 100 mg PO TID WILLIAM Stop: 05/23/22 20:59 Last Admin: 04/27/22 13:59 Dose: 100 mg Documented by: Glucagon (Glucagon For Inj 1 Mg Vial) 1 mg IM UD PRN; Protocol PRN Reason: Hypoglycemia Protocol Stop: 05/23/22 21:14 Glucose (Glucose 40% Gel 15 Gm Tube) 15 - 30 gm PO UD PRN; Protocol PRN Reason: Hypoglycemia Protocol Stop: 05/23/22 21:14 Glucose (Glucose 10 Tabs/Tube) 4 - 8 tabs PO UD PRN; Protocol PRN Reason: Hypoglycemia Protocol Stop: 05/23/22 21:14 Hydroxyzine HCl (Hydroxyzine Hcl 25 Mg Tab) 50 mg PO HSZ PRN PRN Reason: Insomnia Stop: 05/23/22 21:49 Hydroxyzine HCl (Hydroxyzine Hcl 25 Mg Tab) 25 mg PO Q4H PRN PRN Reason: Anxiety Stop: 05/23/22 21:49 Insulin Aspart (Insulin Aspart Per Unit) 0 units SC ACHS WILLIAM Stop: 05/23/22 20:59 Last Admin: 04/27/22 12:45 Dose: 5 units Documented by: Insulin Glargine (Insulin Glargine Solostar 100 Units/Ml 3 Ml Pen) 27 units SC HS [facility] Stop: 05/27/22 21:59 Levothyroxine Sodium (Levothyroxine Sodium 150 Mcg Tablet) 150 mcg PO DAILYBB WILLIAM Stop: 05/25/22 07:59 Last Admin: 04/27/22 08:37 Dose: 150 mcg Documented by: Magnesium Hydroxide (Magnesium Hydroxide Susp 30 Ml Udc) 30 ml PO DAILY PRN PRN Reason: Constipation Stop: 05/23/22 21:49 Metoprolol Succinate (Metoprolol Succ 25mg Ext Rel Tab) 37.5 mg PO QPM WILLIAM Stop: 05/23/22 20:59 Last Admin: 04/26/22 20:51 Dose: 37.5 mg Documented by: Miscellaneous (Carbohydrates For Hypoglycemia ) 15 - 30 gm PO UD PRN PRN Reason: Hypoglycemia Treatment Stop: 05/23/22 21:14 Miscellaneous Information (Pharmacy Glycemic Mgmt Consult) 1 ea N/A UD PRN PRN Reason: Consult Stop: 05/23/22 23:41 Pantoprazole Sodium (Pantoprazole 40 Mg Tab) 40 mg PO BID WILLIAM Stop: 05/23/22 20:59 Last Admin: 04/27/22 08:40 Dose: 40 mg Documented by: Rosuvastatin Calcium (Rosuvastatin Calcium 20 Mg Tab) 40 mg PO QAM WILLIAM Stop: 05/25/22 08:59 Last Admin: 04/27/22 08:38 Dose: 40 mg Documented by: Sodium Chloride (Sodium Chloride 0.65% Na Soln 45 Ml ([place])) 1 - 2 sprays NA PRN PRN PRN Reason: Nasal Dryness/Congestion Stop: 05/23/22 21:49 Vitamin D (Cholecalciferol 1,000 Units 25 Mcg Tab) 2,000 units PO DAILY WILLIAM Stop: 05/25/22 08:59 Last Admin: 04/27/22 08:35 Dose: 2,000 units Documented by: Mental Health & Subst Abuse Tx Psychiatrist Name of Psychiatrist: Naheed Sahu PA-C Psychiatrist's Date of Appointment with Psychiatrist: 05/13/22 Time of Appointment with Psychiatrist: 10:00 am Psychiatric Appointment Comment: [address] [facility] [address] Therapist Name of Therapist: None Manufacturing Maintenance Technician Name of Manufacturing Maintenance Technician: None Post Discharge Appointments Primary Care Physician Name Of Family Doctor: [facility] Date of Appointment with PCP: 05/04/22 Time of Appointment with PCP: 10:55 AM Provider Appointment Comment: [address] [place], [place] [address] [address] Partial or Psych Rehab Name of Partial or Psych Rehab: [facility] Phone Number of Partial or Psych Rehab: [phone] Time of Appointment at Partial or Psych Rehab: Resume regular outpatient schedule (Wednesday/Wednesday/) Specialist Name of Specialist: [facility] Phone Number for Specialist: [phone] Date of Appointment with Specialist: 04/29/22 Time of Appointment with Specialist: 10:00 AM Specialty Appointment Comment: [address] [facility], [address] [facility] [address] Contact Information Discharge Discharge Address[address] [address] [place], [place] [address] [address] (1) Major depressive disorder with current active episode Major depression recurrence: unspecified whether recurrent Major depression episode severity: severe Psychotic features: without psychotic features Qualified Code(s): F32.2 - Major depressive disorder, single episode, severe without psychotic features
[2022-04-27] MEDS: amLODIPine BESYLATE 5 MG TAB PO SCH (20:48)
[2022-04-27] MEDS: METOPROLOL SUCC 25MG EXT REL TAB PO SCH (20:49)
[2022-04-27] MEDS ORDERED: INSULIN GLARGINE SOLOSTAR 100 UNITS/ML 3 ML PEN SC SCH (22:00)
[2022-04-28] MEDS: ASPIRIN 81 MG ECTAB PO SCH (08:29)
[2022-04-28] MEDS: LEVOTHYROXINE SODIUM 150 MCG TABLET PO SCH (08:30)
[2022-04-28] MEDS: CHOLECALCIFEROL 1,000 UNITS 25 MCG TAB PO SCH (08:31)
[2022-04-28] MEDS: DULoxetine HCL 30 MG CAP PO SCH (08:32)
[2022-04-28] MEDS: GABAPENTIN 100 MG CAP PO SCH (08:33)
[2022-04-28] MEDS: ROSUVASTATIN CALCIUM 20 MG TAB PO SCH (08:34)
[2022-04-28] MEDS: PANTOprazole 40 MG TAB PO SCH (08:34)
[2022-04-28] MEDS: INSULIN ASPART PER UNIT SC SCH (08:57)
--- NOTE | 2022-04-28 10:05 | Discharge Summary ---
Date of Service April 28, 2022 History of Present Illness The patient has been struggling with depression, increase in anxiety, and poor self-care since the of her partner of 7 years in January 2021. This triggered past feeling of loss of a previous and also her father dying of a heart attack in front of her as a child. She has felt like she is a burden to her children. During her last stay she was to follow up with [facility] and [facility]. It is not clear that she has been compliant with medications, appointments or seeing a therapist. Since last contact she had a toe amputation and is currently being followed by wound clinic after a fracture of a different digit. During her ED CM assessment she endorsed "sadness, crying, loss of appetite, not taking her medications, not showering, and inability to sleep. She states her peers at group told her she may be experiencing anxiety and admitted to feeling restless and muscle tension. She states that she lives alone and believes she is still struggling/adjusting to that. She denies any tobacco, alcohol, or drug use. Patient states that she feels as if her diabetes has "gotten worse" as of recently since she is not taking care of herself. BSG is noted in the ED to be 299". When assessed by the liaison she did not know the day of the week or that last time she ate. She was encouraged to eat in the ED as part of medical clearance as her insulin pump had been removed and at that point insulin was being held until taking PO. Physical Exam Psychiatric See admission H&P and DOD assessment. Vital Signs (Past 24 Hours) Last Vital Signs Temp 36.8 C 04/28/22 06:38 Pulse 74 04/28/22 06:39 Resp 16 04/28/22 06:38 BP 122/76 04/28/22 06:39 Pulse Ox 98 04/23/22 22:55 Principal Diagnosis major depressive disorder Psychiatric Data See daily stay summary. In short, safety was maintained and the patient was cooperative with care. Medication changes included taper of Effexor XR in favor of a trial of Cymbalta and they tolerated this well. A family session was brother and safety plan was completed prior to discharge. Wound nurse was consulted for recs. re: dressing changes and the patient met with the chemical laboratory chief. Day of Discharge Assessment Today the patient voices readiness for discharge. They note improvement in mood and deny thoughts to harm self or others. Thoughts remain organized and they are improved from admission. There is no evidence of psychosis. They agree to take mediations as prescribed and keep follow-up appointments. They are stable for discharge to outpatient level of care. Transition of Care Transition Of Care Record: was reviewed with the patient Advance Directives Advance Directives Information Provided: Yes Advance Directives: No Mental Health Advance Directive: No Advance Directives on File: No Living Will: No Power of Head Screen Worker: No Advance Directives Reason:: Declines as Mental Health Visit. Suicide Risk Level Suicide Risk Level Comments: Suicide risk at discharge is deemed low as the patient is no longer requiring 24-hr monitoring, has a safety plan, and is free of suicidal ideation at discharge. Risk Factors Assessment : Yes Do You Have Access To A Gun?: No Health Problems: Yes Family History of Suicide: Yes Previous Psychiatric Hospitalization: Yes Hopelessness: Yes Protective Factors Assessment Employed: No Tobacco Cessation at Discharge Tobacco Cessation Medication Prescribed at Discharge: Not Applicable/Non-Smoker Total Time Total Time Spent: Greater Than 30 Minutes Discharge Data Consultations wound nurse Lab Results 04/23/22 04/23/22 04/23/22 13:30 13:30 13:34 WBC RBC Hgb Hct MCV MCH MCHC RDW Std Deviation RDW Coeff of [place]aph[place] Plt Count MPV Immature Gran % (Auto) Neut % (Auto) Lymph % (Auto) Creek % (Auto) Eos % (Auto) Baso % (Auto) Neut # (Auto) Lymph # (Auto) Creek # (Auto) Eos # (Auto) Baso # (Auto) Immature Gran # (Auto) Sodium Potassium Chloride Carbon Dioxide Anion Gap BUN Creatinine Est Cr Clr Drug Dosing Est GFR ( Amer) Est GFR (Non-Af Amer) BUN/Creatinine Ratio Glucose POC Glucose Estimat Average Glucose Hemoglobin A1c Calcium Total Bilirubin AST ALT Alkaline Phosphatase Total Protein Albumin Globulin Albumin/Globulin Ratio TSH Urine Color Yellow Urine Appearance Clear Urine pH 6.0 Ur Specific [place] 1.010 Urine Protein 1+ H Urine Glucose (UA) Trace H Urine Ketones Negative Urine Blood Negative Urine Nitrite Negative Urine Bilirubin Negative Urine Urobilinogen Negative Ur Leukocyte Esterase Trace H Urine WBC (Auto) 10-30 H Urine RBC (Auto) 0-4 U Hyaline Cast (Auto) 1-5 U Epithel Cells (Auto) >30 H Urine Bacteria (Auto) Negative Ur Renal Epithelial Cell Not Reportable Urine Mucus Present A Nasal Screen MRSA (PCR) Salicylates Urine Opiates Screen Neg Ur Methadone, Qual Neg Acetaminophen Urine Barbiturates Neg Ur Phencyclidine (PCP) Neg U Amphetamin/Meth Scrn Neg MDMA (Ecstasy) Screen Neg U Benzodiazepines Scrn Neg Ur Cocaine Metabolite Neg U Marijuana (THC) Screen Neg Ethyl Alcohol mg/dL SARS-CoV-2, RNA, NAAT NEGATIVE 04/23/22 04/23/22 04/23/22 13:45 13:45 13:45 WBC 13.20 H RBC 5.16 Hgb 15.0 Hct 44.9 MCV 87.0 MCH 29.1 MCHC 33.4 RDW Std Deviation 46.0 RDW Coeff of [place] 14.4 Plt Count 302 MPV 9.7 Immature Gran % (Auto) 0.3 Neut % (Auto) 61.5 Lymph % (Auto) 27.7 Creek % (Auto) 9.2 Eos % (Auto) 0.8 Baso % (Auto) 0.5 Neut # (Auto) 8.14 H Lymph # (Auto) 3.65 H Creek # (Auto) 1.21 H Eos # (Auto) 0.10 Baso # (Auto) 0.06 Immature Gran # (Auto) 0.04 H Sodium 136 Potassium 3.6 Chloride 98 Carbon Dioxide 27 Anion Gap 11 BUN 10 Creatinine 1.08 Est Cr Clr Drug Dosing 64.1 Est GFR ( Amer) 65.1 Est GFR (Non-Af Amer) 56.1 BUN/Creatinine Ratio 9.3 L Glucose 299 H POC Glucose Estimat Average Glucose Hemoglobin A1c Calcium 9.2 Total Bilirubin 0.6 AST 59 H ALT 64 H Alkaline Phosphatase 105 H Total Protein 8.3 Albumin 4.6 Globulin 3.7 Albumin/Globulin Ratio 1.2 TSH 1.359 Urine Color Urine Appearance Urine pH Ur Specific [place] Urine Protein Urine Glucose (UA) Urine Ketones Urine Blood Urine Nitrite Urine Bilirubin Urine Urobilinogen Ur Leukocyte Esterase Urine WBC (Auto) Urine RBC (Auto) U Hyaline Cast (Auto) U Epithel Cells (Auto) Urine Bacteria (Auto) Ur Renal Epithelial Cell Urine Mucus Nasal Screen MRSA (PCR) Salicylates Urine Opiates Screen Ur Methadone, Qual Acetaminophen Urine Barbiturates Ur Phencyclidine (PCP) U Amphetamin/Meth Scrn MDMA (Ecstasy) Screen U Benzodiazepines Scrn Ur Cocaine Metabolite U Marijuana (THC) Screen Ethyl Alcohol mg/dL SARS-CoV-2, RNA, NAAT 04/23/22 04/23/22 04/23/22 13:45 13:45 15:05 WBC RBC Hgb Hct MCV MCH MCHC RDW Std Deviation RDW Coeff of [place] Plt Count MPV Immature Gran % (Auto) Neut % (Auto) Lymph % (Auto) Creek % (Auto) Eos % (Auto) Baso % (Auto) Neut # (Auto) Lymph # (Auto) Creek # (Auto) Eos # (Auto) Baso # (Auto) Immature Gran # (Auto) Sodium Potassium Chloride Carbon Dioxide Anion Gap BUN Creatinine Est Cr Clr Drug Dosing Est GFR ( Amer) Est GFR (Non-Af Amer) BUN/Creatinine Ratio Glucose POC Glucose 286 H Estimat Average Glucose Hemoglobin A1c Calcium Total Bilirubin AST ALT Alkaline Phosphatase Total Protein Albumin Globulin Albumin/Globulin Ratio TSH Urine Color Urine Appearance Urine pH Ur Specific [place] Urine Protein Urine Glucose (UA) Urine Ketones Urine Blood Urine Nitrite Urine Bilirubin Urine Urobilinogen Ur Leukocyte Esterase Urine WBC (Auto) Urine RBC (Auto) U Hyaline Cast (Auto) U Epithel Cells (Auto) Urine Bacteria (Auto) Ur Renal Epithelial Cell Urine Mucus Nasal Screen MRSA (PCR) Salicylates < 3.0 L Urine Opiates Screen Ur Methadone, Qual Acetaminophen < 3 L Urine Barbiturates Ur Phencyclidine (PCP) U Amphetamin/Meth Scrn MDMA (Ecstasy) Screen U Benzodiazepines Scrn Ur Cocaine Metabolite U Marijuana (THC) Screen Ethyl Alcohol mg/dL < 10.0 SARS-CoV-2, RNA, NAAT 04/23/22 04/23/22 04/23/22 16:14 17:20 19:02 WBC RBC Hgb Hct MCV MCH MCHC RDW Std Deviation RDW Coeff of [place] Plt Count MPV Immature Gran % (Auto) Neut % (Auto) Lymph % (Auto) Creek % (Auto) Eos % (Auto) Baso % (Auto) Neut # (Auto) Lymph # (Auto) Creek # (Auto) Eos # (Auto) Baso # (Auto) Immature Gran # (Auto) Sodium Potassium Chloride Carbon Dioxide Anion Gap BUN Creatinine Est Cr Clr Drug Dosing Est GFR ( Amer) Est GFR (Non-Af Amer) BUN/Creatinine Ratio Glucose POC Glucose 274 H 269 H Estimat Average Glucose Hemoglobin A1c Calcium Total Bilirubin AST ALT Alkaline Phosphatase Total Protein Albumin Globulin Albumin/Globulin Ratio TSH Urine Color Urine Appearance Urine pH Ur Specific [place] Urine Protein Urine Glucose (UA) Urine Ketones Urine Blood Urine Nitrite Urine Bilirubin Urine Urobilinogen Ur Leukocyte Esterase Urine WBC (Auto) Urine RBC (Auto) U Hyaline Cast (Auto) U Epithel Cells (Auto) Urine Bacteria (Auto) Ur Renal Epithelial Cell Urine Mucus Nasal Screen MRSA (PCR) Negative Salicylates Urine Opiates Screen Ur Methadone, Qual Acetaminophen Urine Barbiturates Ur Phencyclidine (PCP) U Amphetamin/Meth Scrn MDMA (Ecstasy) Screen U Benzodiazepines Scrn Ur Cocaine Metabolite U Marijuana (THC) Screen Ethyl Alcohol mg/dL SARS-CoV-2, RNA, NAAT 04/23/22 04/23/22 04/24/22 19:07 21:02 08:39 WBC RBC Hgb Hct MCV MCH MCHC RDW Std Deviation RDW Coeff of [place] Plt Count MPV Immature Gran % (Auto) Neut % (Auto) Lymph % (Auto) Creek % (Auto) Eos % (Auto) Baso % (Auto) Neut # (Auto) Lymph # (Auto) Creek # (Auto) Eos # (Auto) Baso # (Auto) Immature Gran # (Auto) Sodium Potassium Chloride Carbon Dioxide Anion Gap BUN Creatinine Est Cr Clr Drug Dosing Est GFR ( Amer) Est GFR (Non-Af Amer) BUN/Creatinine Ratio Glucose POC Glucose 234 H 174 H 76 Estimat Average Glucose Hemoglobin A1c Calcium Total Bilirubin AST ALT Alkaline Phosphatase Total Protein Albumin Globulin Albumin/Globulin Ratio TSH Urine Color Urine Appearance Urine pH Ur Specific [place] Urine Protein Urine Glucose (UA) Urine Ketones Urine Blood Urine Nitrite Urine Bilirubin Urine Urobilinogen Ur Leukocyte Esterase Urine WBC (Auto) Urine RBC (Auto) U Hyaline Cast (Auto) U Epithel Cells (Auto) Urine Bacteria (Auto) Ur Renal Epithelial Cell Urine Mucus Nasal Screen MRSA (PCR) Salicylates Urine Opiates Screen Ur Methadone, Qual Acetaminophen Urine Barbiturates Ur Phencyclidine (PCP) U Amphetamin/Meth Scrn MDMA (Ecstasy) Screen U Benzodiazepines Scrn Ur Cocaine Metabolite U Marijuana (THC) Screen Ethyl Alcohol mg/dL SARS-CoV-2, RNA, NAAT 04/24/22 04/24/22 04/24/22 12:06 17:17 21:27 WBC RBC Hgb Hct MCV MCH MCHC RDW Std Deviation RDW Coeff of [place] Plt Count MPV Immature Gran % (Auto) Neut % (Auto) Lymph % (Auto) Creek % (Auto) Eos % (Auto) Baso % (Auto) Neut # (Auto) Lymph # (Auto) Creek # (Auto) Eos # (Auto) Baso # (Auto) Immature Gran # (Auto) Sodium Potassium Chloride Carbon Dioxide Anion Gap BUN Creatinine Est Cr Clr Drug Dosing Est GFR ( Amer) Est GFR (Non-Af Amer) BUN/Creatinine Ratio Glucose POC Glucose 101 H 169 H 226 H Estimat Average Glucose Hemoglobin A1c Calcium Total Bilirubin AST ALT Alkaline Phosphatase Total Protein Albumin Globulin Albumin/Globulin Ratio TSH Urine Color Urine Appearance Urine pH Ur Specific [place] Urine Protein Urine Glucose (UA) Urine Ketones Urine Blood Urine Nitrite Urine Bilirubin Urine Urobilinogen Ur Leukocyte Esterase Urine WBC (Auto) Urine RBC (Auto) U Hyaline Cast (Auto) U Epithel Cells (Auto) Urine Bacteria (Auto) Ur Renal Epithelial Cell Urine Mucus Nasal Screen MRSA (PCR) Salicylates Urine Opiates Screen Ur Methadone, Qual Acetaminophen Urine Barbiturates Ur Phencyclidine (PCP) U Amphetamin/Meth Scrn MDMA (Ecstasy) Screen U Benzodiazepines Scrn Ur Cocaine Metabolite U Marijuana (THC) Screen Ethyl Alcohol mg/dL SARS-CoV-2, RNA, NAAT 04/25/22 04/25/22 04/25/22 07:26 09:06 13:00 WBC RBC Hgb Hct MCV MCH MCHC RDW Std Deviation RDW Coeff of [place] Plt Count MPV Immature Gran % (Auto) Neut % (Auto) Lymph % (Auto) Creek % (Auto) Eos % (Auto) Baso % (Auto) Neut # (Auto) Lymph # (Auto) Creek # (Auto) Eos # (Auto) Baso # (Auto) Immature Gran # (Auto) Sodium Potassium Chloride Carbon Dioxide Anion Gap BUN Creatinine Est Cr Clr Drug Dosing Est GFR ( Amer) Est GFR (Non-Af Amer) BUN/Creatinine Ratio Glucose POC Glucose 166 H 132 H Estimat Average Glucose 295 Hemoglobin A1c 11.9 H Calcium Total Bilirubin AST ALT Alkaline Phosphatase Total Protein Albumin Globulin Albumin/Globulin Ratio TSH Urine Color Urine Appearance Urine pH Ur Specific [place] Urine Protein Urine Glucose (UA) Urine Ketones Urine Blood Urine Nitrite Urine Bilirubin Urine Urobilinogen Ur Leukocyte Esterase Urine WBC (Auto) Urine RBC (Auto) U Hyaline Cast (Auto) U Epithel Cells (Auto) Urine Bacteria (Auto) Ur Renal Epithelial Cell Urine Mucus Nasal Screen MRSA (PCR) Salicylates Urine Opiates Screen Ur Methadone, Qual Acetaminophen Urine Barbiturates Ur Phencyclidine (PCP) U Amphetamin/Meth Scrn MDMA (Ecstasy) Screen U Benzodiazepines Scrn Ur Cocaine Metabolite U Marijuana (THC) Screen Ethyl Alcohol mg/dL SARS-CoV-2, RNA, NAAT 04/25/22 04/25/22 04/26/22 17:16 21:11 08:35 WBC RBC Hgb Hct MCV MCH MCHC RDW Std Deviation RDW Coeff of [place]aph[place] Plt Count MPV Immature Gran % (Auto) Neut % (Auto) Lymph % (Auto) Creek % (Auto) Eos % (Auto) Baso % (Auto) Neut # (Auto) Lymph # (Auto) Creek # (Auto) Eos # (Auto) Baso # (Auto) Immature Gran # (Auto) Sodium Potassium Chloride Carbon Dioxide Anion Gap BUN Creatinine Est Cr Clr Drug Dosing Est GFR ( Amer) Est GFR (Non-Af Amer) BUN/Creatinine Ratio Glucose POC Glucose 181 H 173 H 136 H Estimat Average Glucose Hemoglobin A1c Calcium Total Bilirubin AST ALT Alkaline Phosphatase Total Protein Albumin Globulin Albumin/Globulin Ratio TSH Urine Color Urine Appearance Urine pH Ur Specific [place] Urine Protein Urine Glucose (UA) Urine Ketones Urine Blood Urine Nitrite Urine Bilirubin Urine Urobilinogen Ur Leukocyte Esterase Urine WBC (Auto) Urine RBC (Auto) U Hyaline Cast (Auto) U Epithel Cells (Auto) Urine Bacteria (Auto) Ur Renal Epithelial Cell Urine Mucus Nasal Screen MRSA (PCR) Salicylates Urine Opiates Screen Ur Methadone, Qual Acetaminophen Urine Barbiturates Ur Phencyclidine (PCP) U Amphetamin/Meth Scrn MDMA (Ecstasy) Screen U Benzodiazepines Scrn Ur Cocaine Metabolite U Marijuana (THC) Screen Ethyl Alcohol mg/dL SARS-CoV-2, RNA, NAAT 04/26/22 04/26/22 04/26/22 12:46 17:14 20:32 WBC RBC Hgb Hct MCV MCH MCHC RDW Std Deviation RDW Coeff of Daphney Plt Count MPV Immature Gran % (Auto) Neut % (Auto) Lymph % (Auto) Creek % (Auto) Eos % (Auto) Baso % (Auto) Neut # (Auto) Lymph # (Auto) Creek # (Auto) Eos # (Auto) Baso # (Auto) Immature Gran # (Auto) Sodium Potassium Chloride Carbon Dioxide Anion Gap BUN Creatinine Est Cr Clr Drug Dosing Est GFR ( Amer) Est GFR (Non-Af Amer) BUN/Creatinine Ratio Glucose POC Glucose 162 H 184 H 223 H Estimat Average Glucose Hemoglobin A1c Calcium Total Bilirubin AST ALT Alkaline Phosphatase Total Protein Albumin Globulin Albumin/Globulin Ratio TSH Urine Color Urine Appearance Urine pH Ur Specific [place] Urine Protein Urine Glucose (UA) Urine Ketones Urine Blood Urine Nitrite Urine Bilirubin Urine Urobilinogen Ur Leukocyte Esterase Urine WBC (Auto) Urine RBC (Auto) U Hyaline Cast (Auto) U Epithel Cells (Auto) Urine Bacteria (Auto) Ur Renal Epithelial Cell Urine Mucus Nasal Screen MRSA (PCR) Salicylates Urine Opiates Screen Ur Methadone, Qual Acetaminophen Urine Barbiturates Ur Phencyclidine (PCP) U Amphetamin/Meth Scrn MDMA (Ecstasy) Screen U Benzodiazepines Scrn Ur Cocaine Metabolite U Marijuana (THC) Screen Ethyl Alcohol mg/dL SARS-CoV-2, RNA, NAAT 04/27/22 04/27/22 04/27/22 08:14 12:26 16:56 WBC RBC Hgb Hct MCV MCH MCHC RDW Std Deviation RDW Coeff of [place]aph[place] Plt Count MPV Immature Gran % (Auto) Neut % (Auto) Lymph % (Auto) Creek % (Auto) Eos % (Auto) Baso % (Auto) Neut # (Auto) Lymph # (Auto) Creek # (Auto) Eos # (Auto) Baso # (Auto) Immature Gran # (Auto) Sodium Potassium Chloride Carbon Dioxide Anion Gap BUN Creatinine Est Cr Clr Drug Dosing Est GFR ( Amer) Est GFR (Non-Af Amer) BUN/Creatinine Ratio Glucose POC Glucose 108 H 151 H 187 H Estimat Average Glucose Hemoglobin A1c Calcium Total Bilirubin AST ALT Alkaline Phosphatase Total Protein Albumin Globulin Albumin/Globulin Ratio TSH Urine Color Urine Appearance Urine pH Ur Specific [place] Urine Protein Urine Glucose (UA) Urine Ketones Urine Blood Urine Nitrite Urine Bilirubin Urine Urobilinogen Ur Leukocyte Esterase Urine WBC (Auto) Urine RBC (Auto) U Hyaline Cast (Auto) U Epithel Cells (Auto) Urine Bacteria (Auto) Ur Renal Epithelial Cell Urine Mucus Nasal Screen MRSA (PCR) Salicylates Urine Opiates Screen Ur Methadone, Qual Acetaminophen Urine Barbiturates Ur Phencyclidine (PCP) U Amphetamin/Meth Scrn MDMA (Ecstasy) Screen U Benzodiazepines Scrn Ur Cocaine Metabolite U Marijuana (THC) Screen Ethyl Alcohol mg/dL SARS-CoV-2, RNA, NAAT 04/27/22 04/28/22 20:40 08:23 WBC RBC Hgb Hct MCV MCH MCHC RDW Std Deviation RDW Coeff of [place]aph[place] Plt Count MPV Immature Gran % (Auto) Neut % (Auto) Lymph % (Auto) Creek % (Auto) Eos % (Auto) Baso % (Auto) Neut # (Auto) Lymph # (Auto) Creek # (Auto) Eos # (Auto) Baso # (Auto) Immature Gran # (Auto) Sodium Potassium Chloride Carbon Dioxide Anion Gap BUN Creatinine Est Cr Clr Drug Dosing Est GFR ( Amer) Est GFR (Non-Af Amer) BUN/Creatinine Ratio Glucose POC Glucose 208 H 169 H Estimat Average Glucose Hemoglobin A1c Calcium Total Bilirubin AST ALT Alkaline Phosphatase Total Protein Albumin Globulin Albumin/Globulin Ratio TSH Urine Color Urine Appearance Urine pH Ur Specific [place] Urine Protein Urine Glucose (UA) Urine Ketones Urine Blood Urine Nitrite Urine Bilirubin Urine Urobilinogen Ur Leukocyte Esterase Urine WBC (Auto) Urine RBC (Auto) U Hyaline Cast (Auto) U Epithel Cells (Auto) Urine Bacteria (Auto) Ur Renal Epithelial Cell Urine Mucus Nasal Screen MRSA (PCR) Salicylates Urine Opiates Screen Ur Methadone, Qual Acetaminophen Urine Barbiturates Ur Phencyclidine (PCP) U Amphetamin/Meth Scrn MDMA (Ecstasy) Screen U Benzodiazepines Scrn Ur Cocaine Metabolite U Marijuana (THC) Screen Ethyl Alcohol mg/dL SARS-CoV-2, RNA, NAAT Hospital Course (1) Major depressive disorder with current active episode: (2) Hyperglycemia: (3) Open fracture of right great toe: (4) Diabetic ulcer of toe of right foot: 04/27/22: continue current meds and tx plan. 04/26/22: wound management with dressing changes daily/cooperative with boot. Titrate Cymbalta to 30 mg tomorrow am. 04/25/2022: Risks/benefits/alternatives reviewed re: antidepressants for the treatment of depression and/or anxiety. The patient agreed to a trial of Cymbalta 20 mg daily and titrate when done with Effexor taper. 04/24/2022: The patient was admitted to the [facility] ([facility] inpatient mental health unit) on q15 min checks (behavioral with suicide precautions) for safety. The patient will participate in group, recreational, and milieu therapies and will be offered additional individual and family sessions as clinically appropriate. Tapering Effexor due to severe recurrence on therapeutic dose. She believes she has taken Wellbutrin in the past so discussed Cymbalta, particularly given co- morbid diabetic neuropathy. Insulin pump is out with glycemic management per pharmacy consult. Wound nurse consult for toe dressing. Mental Health & Subst Abuse Tx Psychiatrist Name of Psychiatrist: Naheed Sahu PA-C Psychiatrist's Date of Appointment with Psychiatrist: 05/13/22 Time of Appointment with Psychiatrist: 10:00 am Psychiatric Appointment Comment: [address] [facility] [id number] Therapist Name of Therapist: None Class 1 Owner Operator Name of Class 1 Owner Operator: None Post Discharge Appointments Primary Care Physician Name Of Family Doctor: Caroline Rolon - Dr. Evita Olivares Primary [facility] Date of Appointment with PCP: 05/04/22 Time of Appointment with PCP: 10:55 AM Provider Appointment Comment: [address] [facility] [id number] Partial or Psych Rehab Name of Partial or Psych Rehab: [facility] Psych Rehab Phone Number of Partial or Psych Rehab: [phone] Time of Appointment at Partial or Psych Rehab: Resume regular outpatient schedule (Wednesday/Wednesday/) Specialist Name of Specialist: [facility] Phone Number for Specialist: [phone] Date of Appointment with Specialist: 04/29/22 Time of Appointment with Specialist: 10:00 AM Specialty Appointment Comment: [address] [facility], [address] [facility] [address] Smoking Cessation Counseling Tobacco Cessation Medication Prescribed at Discharge: Not Applicable/Non-Smoker Other #1: Name of Aftercare Appointment: [facility]ilateral Arterial Duplex Study Phone Number of Aftercare Appointment: [phone] Date of Aftercare Appointment: 05/04/22 Time of Aftercare Appointment: 1:00 PM Aftercare Appointment Comment: [address] [facility] [address] Contact Information Discharge Discharge Address: [address] [place] [id number] Discharge Plan Discharge Items Patient Disposition: Home - Self-Care Reason For Visit: MDD Discharge Diagnosis: major depressive disorder Activity: Resume your previous activity Non-emergency contact: Primary Care Provider, Psychiatrist and Therapist Call non-emergency contact if: you have any medication questions and your symptoms worsen Follow-up/Referrals: Ivonne French PA-C [Primary Care Provider] - Diet: Carb Consistent or DM2 Addtl Attending Provider Instructions: SPECIAL CARE INSTRUCTIONS: 1. Follow through with your scheduled aftercare appointments. If unable to keep an appointment, please call to reschedule. 2. Take your medication only as prescribed. Medication should not be changed or stopped without the approval of your doctor. In the event of worsening symptoms or concerns about side effects, contact your doctor immediately. 3. Utilize new healthy coping skills, anger management skills, and stress management skills learned during your hospitalization. Journal feelings and process them with a support person. Identify stressors or situations that may result in relapse, deterioration or inappropriate behaviors and develop a plan to deal with those issues. 4. If your coping skills are ineffective and you are in crisis, contact your outpatient providers for direction. If unable to reach your providers, please call the [facility] CRISIS LINE AT , go to the [facility] walk-in center at [address] [facility], [address], [place], or go to the closest Emergency Room. 5. Avoid alcohol and un-prescribed drugs. 6. You have been provided with the Mental Health Advance Directives Pamphlet for your review. 7. Your condition is stable for discharge to outpatient level of care, but recovery is an ongoing process. Ifthoughts to harm yourself or others return, follow the safety plan developed during your stay. Planning for a safe return home includes securing weapons. Our treatment team recommends weaponsbe removed from the home until your outpatient provider reassesses your progress. In rare cases where the items themselvescannot be removed, guns and ammunitionshould be secured separatelyand keys stored by a reliable personoutside of the home. If you were admitted on an involuntary commitment, the police or other legal authorities may be involved in this process. AFTERCARE APPOINTMENTS: * Please call your insurance company prior to your scheduled appointment to confirm your aftercare providers are covered. Take your insurance information to your appointments. WHO TO CALL AND WHEN: Medical Emergencies: For questions or emergencies related to your hospital stay, please contact the Inpatient Behavioral Health Unit at [phone]. A supply chain program manager is on-call 31/05 for the Behavioral Health Unit for emergencies At any time you feel your situation is an emergency, you may also call 911 immediately. Pending Studies at Discharge: No Stand-Alone Forms: [facility], Smoking Cessation Medications and DC Order Prescriptions: New duloxetine 30 mg Capsule,Delayed Release(Dr/Ec) 30 mg PO QAM 30 Days Qty: 30 RF: 0 Continued amlodipine 2.5 mg Tablet 2.5 mg PO QPM RF: 0 aspirin 81 mg Tablet,Delayed Release (Dr/Ec) 81 mg PO QAM RF: 0 omeprazole 20 mg Tablet,Delayed Release (Dr/Ec) 20 mg PO BID RF: 0 gabapentin 100 mg Capsule 100 mg PO TID RF: 0 metoprolol succinate 25 mg Tablet Extended Release 24 Hr 37.5 mg PO QPM RF: 0 rosuvastatin 40 mg Tablet 40 mg PO QAM RF: 0 clonazepam 0.5 mg tablet 0.5 mg PO BID PRN (Reason: Anxiety) RF: 0 levothyroxine [Synthroid] 150 mcg Tablet 150 mcg PO DAILY RF: 0 Hair,Skin and Nails Tablet 1 tab PO DAILY RF: 0 cinnamon bark [Cinnamon] 500 mg Capsule 1,000 mg PO QAM RF: 0 cholecalciferol (vitamin D3) [Vitamin D3] 50 mcg (2,000 unit) Capsule 50 mcg PO DAILY RF: 0 turmeric root extract 500 mg Capsule 500 mg PO DAILY RF: 0 insulin aspart U-100 100 unit/mL Solution 200 unit SUBCUT UD RF: 0 (DME) Omnipod Dash Pods (Gen 4) Cartridge SUBCUT RF: 0 Trulicity 1.5 mg/0.5 mL Pen Injector 1.5 mg SUBCUT WK RF: 0 Changed metformin 1,000 mg Tablet Extended Release 24hr 1,000 mg PO BIDWMEAL Qty: 0 RF: 0 Discontinued venlafaxine [Effexor XR] 150 mg capsule,extended release 24hr 150 mg PO QAM RF: 0 Discharge Orders: Discharge Order (Routine); Ordered 04/28/22 Ordered By: Megha May/Other Patient Handouts: Managing Type 2 Diabetes Admission Data Admit Date/Time: 04/23/22 21:50 Attending Provider: Megha Cooley Admit Provider: Megha Cooley Primary Care Provider: Ivonne French Coding Level of Care Code 95953 D/C day mgmt > 30 min Diagnoses Major depressive disorder with current active episode F32.2 Major depression episode severity: severe Major depression recurrence: unspecified whether recurrent Psychotic features: without psychotic features Hyperglycemia R73.9 Open fracture of right great toe S92.401B Diabetic ulcer of toe of right foot 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
== END 2022-04-28 11:37 | disposition home or self-care (01) | DRG 885 ==
LOC: ED 12:55 → 3S 21:50

== ENCOUNTER 2022-06-15 14:42 | Inpatient (IN) ==
--- NOTE | 2022-06-15 14:55 | Emergency Department Note ---
Impression & Plan Syncope, Elevated troponin, AMS (altered mental status) ED Provider Note NAME: HENRIK HOWARD AGE: 57 SEX: F : 1965 ARRIVES VIA: Ambulance INFORMANT: Patient, EMS ED PROVIDER(S): Roger Felder DO CHIEF COMPLAINT: syncope HPI: Patient is a 57-year-old female with a past medical history of UTI, CAD, osteomyelitis, diabetes, presents the ER for syncopal event. She went to stand up and then she passed out. She has been very confused since then. There is no seizure activity. Patient denies all complaints at this time including headache, change in vision, chest pain, shortness of breath, nausea vomiting or diarrhea. Denies any belly pain. EMS noted that she has been confused since this occurred. She denies any dysuria urgency or frequency. No other exacerbating or remitting factors. ROS: See above HPI for pertinent positives & negatives. A total of 10 systems reviewed and were otherwise negative. PAST MEDICAL HISTORY:See Below PAST SURGICAL HISTORY:See Below FAMILY HISTORY:See Below SOCIAL HISTORY:See Below HOME MEDICATIONS:See Below ALLERGIES:See Below VITALS:See Below PHYSICAL EXAMINATION: GENERAL: Sitting up in bed, alert, well appearing, well nourished, no distress, non-toxic HEAD: NC/AT EYE EXAM: normal conjunctiva. PERRL and EOM's grossly intact. OROPHARYNX: no exudate, no erythema, lips, buccal mucosa, and tongue normal and mucous membranes are moist NECK: supple, no nuchal rigidity, no adenopathy, non-tender LUNGS: Clear to auscultation. Normal chest wall mechanics HEART: no murmurs, S1 normal and S2 normal ABDOMEN: abdomen soft, non-tender, normo-active bowel sounds, no masses, no rebound or guarding. UPPER EXTREMITIES: upper extremities are grossly normal. LOWER EXTREMITIES: No pitting edema. NEURO EXAM: Awake alert not oriented to person place or time, cranial nerves II- XII intact, normal speech, no weakness of arms, no weakness of legs. No drift. Finger to nose intact. Gross sensation intact. MEDICAL DECISION MAKING: Patient is a 57-year-old female who presents ER for above-stated complaint. IV was established blood work is obtained.Labs show no significant leukocytosis or anemia. ABG was unremarkable. BMP with mild hyponatremia 133. LFTs bilirubin was unremarkable. Initial troponin was elevated at 30. Lipase is unremarkable. UA was contaminated. Tox and alcohol were negative. COVID was negative.ED head and cervical spine was unremarkable. Chest x-ray was nondiagnostic. EKG was unremarkable and unchanged. With her confusion and reported syncope with a detectable troponin did discuss with hospitalist for further observation.Patient's mentation gradually improved throughout the stay in the ER. Triage Nursing notes reviewed. Limited review of prior medical records performed Vital Signs: reviewed and remarkable for no significant abnormalities Differential diagnosis: Differential diagnoses includes but is not limited to toxic, metabolic, infectious, traumatic, cardiac, neurologic, hematologic, psychiatric and inflammatory etiologies. ER treatment provided: See below Diagnostics interpreted by me: ECG:Sinus rhythm rate 87 Normal axis Right bundle branch block T wave inversion in V1 QTC 474 No significant change from previous on April 09, 2022 Cardiac Monitoring: An order was placed for continuous cardiac monitoring. The monitor shows a rate of 82 with sinus rhythm. Laboratory studies: As stated above and show below. Imaging studies: The head, cervical spine was unremarkable Chest x-ray no acute pathology Consultation(s): Discussed the hospitalist for further evaluation Procedures: none Critical Care: None Past Med/Surg History Medical History Amputation of toe Anxiety Benign neoplasm of vulva of clitoris CAD (coronary artery disease) Diabetes mellitus, type II insulin pump GERD (gastroesophageal reflux disease) History of thyroid cancer with surgical intervention Hyperglycemia Hypertension Myocardial Infarction 12 YEARS AGO (FOLLOWED BY DR. DODSON) VERBALIZED NO HEART CATH DONE Peripheral neuropathy Restless leg syndrome Schwannoma REMOVED BY DR. GROSSMAN MARCH 2018 Stroke 7 YEARS AGO (LEFT SIDE WEAKNESS/LEFT EYE DROOPING) > follows with a neurologist unsure of name Suicidal ideation resolved per pt Tumor LEFT FEMUR (BENIGN) 2 TUMORS REMOVED > several yrs ago Vulvitis resolved per pt Surgical History Family history of reaction to anesthesia BROTHER-NAUSEA H/O blepharoplasty RT/LEFT History of anesthesia reaction SLOW TO WAKE UP History of cardiac cath March 2022, [facility] > no stents/ just check up per pt History of cholecystectomy History of colonoscopy History of esophagogastroduodenoscopy (EGD) History of neck surgery anterior cervical discectomy with bilateral foraminotomies C6-7. #2 anterior cervical arthrodesis C6-7. #3 placement of titanium 9.9 mm cage filled with DBM and C6-7. #4 occasional hernandez plate and screws across C6-7 >> ROM no limitations History of surgery robot-assist left thorascopic resection of schwannoma from left upper mediastinum. 03/16/2018. SANG. A line. No issues. History of thyroidectomy, total History of tonsillectomy History of tooth extraction S/P LASIK surgery of both eyes Status post hysteroscopic ablation of endometrium Family History Grandmother (Maternal) Family history of diabetes mellitus Mother Ovarian cancer Father Myocardial infarction Social History Smoking Status: Never smoker Second Hand Exposure: Yes; Do You Dip or Chew Tobacco: No; Tobacco Cessation Education Requested by Patient: No Hx Alcohol Use: No Hx Substance Use: No Preferred Language: Albanian Communication Ability: Effective Pc Tech Required: No Beliefs That Will Affect Care: Anabaptism Anabaptism Beliefs: Tenriism marital status: / Current Living Situation: Alone Other Information That Helps Us Care for You: No Feels Safe at Home: Yes Safety Concerns: Feels Safe At This Time Assistive Devices: Denture - Upper, Denture - Lower and Glasses Allergies Allergies Allergy/AdvReac Type Severity Reaction Status Date / Time adhesive tape Allergy Mild PER PT Verified 06/15/22 18:01 "GLUE ON TAPE"--SKIN IRRITATION Home Meds Home Medications Medication Instructions Recorded Confirmed aspirin 81 mg tablet,delayed 81 mg PO QAM 02/18/19 06/15/22 release omeprazole 20 mg tablet,delayed 20 mg PO BID 02/18/19 06/15/22 release amlodipine 2.5 mg tablet 2.5 mg PO QPM 03/27/19 06/15/22 gabapentin 100 mg capsule 100 mg PO TID 07/21/19 06/15/22 metoprolol succinate 25 mg 25 mg PO QAM 05/24/21 06/15/22 tablet,extended release 24 hr rosuvastatin 40 mg tablet 40 mg PO QAM 05/24/21 06/15/22 clonazepam 0.5 mg tablet 0.5 mg PO BID PRN Anxiety 12/30/21 06/15/22 insulin aspart U-100 100 unit/mL 200 unit subcut UD 12/30/21 06/15/22 subcutaneous solution insulin pump cart,cont inf,BT 12/30/21 06/15/22 (Omnipod Dash Pods (Gen 4) subcutaneous cartridge) levothyroxine 150 mcg tablet 150 mcg PO QAM 12/30/21 06/15/22 (Synthroid) turmeric root extract 500 mg 500 mg PO QAM 12/30/21 06/15/22 capsule dulaglutide 1.5 mg/0.5 mL 1.5 mg subcut WK 03/18/22 06/15/22 subcutaneous pen injector (Trulicity) trazodone 50 mg tablet 50 mg PO HS 05/29/22 06/15/22 duloxetine 30 mg capsule,delayed 30 mg PO DAILY 06/15/22 06/15/22 release Previous Rx's Medication Instructions Recorded metformin 1,000 mg tablet,extended 1,000 mg PO BIDWMEAL #0 tabs 04/28/22 release 24hr Results & Data (ED) Vital Signs Vital Signs - 24 hr 06/15/22 14:53 06/15/22 15:12 06/15/22 15:30 Temperature 36.4 C L Temperature Source Oral Pulse Rate 83 Pulse Rate [Apical] 79 Respiratory Rate 18 18 Respiratory Effort / Characteristics Non-Labored Spontaneous Respiratory Depth Normal Blood Pressure Blood Pressure [Right Arm] 122/68 Blood Pressure Mean Blood Pressure Mean [Right Arm] 86 Pulse Oximetry 98 97 Oxygen Delivery Method Room Air Room Air Room Air Sepsis Recent Fever Within 48 Hours No Sepsis New/Unexplained Change in Mental Status No Sepsis Action Taken by Nursing No Action Required 06/15/22 15:10 06/15/22 16:00 06/15/22 16:30 Temperature Temperature Source Pulse Rate Pulse Rate [Apical] 81 Respiratory Rate 18 Respiratory Effort / Characteristics Respiratory Depth Blood Pressure 118/48 L Blood Pressure [Right Arm] 114/58 L Blood Pressure Mean 71 Blood Pressure Mean [Right Arm] 76 Pulse Oximetry 100 Oxygen Delivery Method Room Air Room Air Sepsis Recent Fever Within 48 Hours Sepsis New/Unexplained Change in Mental Status Sepsis Action Taken by Nursing 06/15/22 16:30 06/15/22 16:45 06/15/22 17:00 Temperature Temperature Source Pulse Rate 78 81 Pulse Rate [Apical] Respiratory Rate 20 19 Respiratory Effort / Characteristics Respiratory Depth Blood Pressure 130/72 Blood Pressure [Right Arm] Blood Pressure Mean 91 Blood Pressure Mean [Right Arm] Pulse Oximetry 100 Oxygen Delivery Method Sepsis Recent Fever Within 48 Hours Sepsis New/Unexplained Change in Mental Status Sepsis Action Taken by Nursing 06/15/22 17:00 Temperature Temperature Source Pulse Rate 79 Pulse Rate [Apical] Respiratory Rate 21 Respiratory Effort / Characteristics Respiratory Depth Blood Pressure Blood Pressure [Right Arm] Blood Pressure Mean Blood Pressure Mean [Right Arm] Pulse Oximetry 100 Oxygen Delivery Method Sepsis Recent Fever Within 48 Hours Sepsis New/Unexplained Change in Mental Status Sepsis Action Taken by Nursing Laboratory Data Result diagrams: 06/15/22 15:07 06/15/22 16:11 Lab Results 06/15/22 06/15/22 06/15/22 Range/Units 15:07 15:07 15:07 WBC 10.44 (4.8-10.8) K/ul RBC 4.57 (3.93-5.22) M/uL Hgb 13.1 (12.0-16.0) g/dl Hct 39.5 (34.1-44.9) % MCV 86.4 (80.0-100.0) fL MCH 28.7 (25.0-34.0) pg MCHC 33.2 (32.0-36.0) g/dL RDW Std Deviation 44.1 (36.4-46.3) fL RDW Coeff of Daphney 14.0 (11.5-14.5) % Plt Count 242 (130-400) K/uL MPV 10.2 (9.4-12.3) fL Immature Gran % (Auto) 0.4 % Neut % (Auto) 69.8 % Lymph % (Auto) 19.7 % Jenkins % (Auto) 8.4 % Eos % (Auto) 1.1 % Baso % (Auto) 0.6 % Neut # (Auto) 7.28 H (1.4-6.5) K/uL Lymph # (Auto) 2.06 (1.2-3.4) K/uL Jenkins # (Auto) 0.88 H (0.24-0.82) K/uL Eos # (Auto) 0.12 (0-0.50) K/uL Baso # (Auto) 0.06 (0-0.2) K/uL Immature Gran # (Auto) 0.04 H (0.00-0.02) K/uL VBG pH 7.41 (7.36-7.41) VBG pCO2 42 (38-50) mmHg VBG pO2 47 mmHg VBG HCO3 27 mmol/L VBG O2 Saturation 82.8 % VBG Base Excess 1.7 mEq/L Sodium (136-145) mmol/L Potassium Chloride (98-107) mmol/L Carbon Dioxide (21-32) mmol/L Anion Gap (3-11) BUN (6-23) mg/dl Creatinine (0.6-1.2) mg/dl Est Cr Clr Drug Dosing ml/min Est GFR ( Amer) ml/min Est GFR (Non-Af Amer) ml/min BUN/Creatinine Ratio (10-20) Glucose (70-99(Fasting)) mg/dl Calcium (8.5-10.1) mg/dl Total Bilirubin (0.2-1.0) mg/dl AST ALT (7-52) U/L Alkaline Phosphatase (34-104) U/L Troponin I High Sens (0-14) pg/ml Total Protein (6.0-8.3) gm/dl Albumin (3.4-5.0) gm/dl Globulin (2.5-4.0) gm/dl Albumin/Globulin Ratio (0.9-2) Lipase (11-82) U/L Urine Color Urine Appearance (Clear) Urine pH (4.5-7.5) Ur Specific [place] (1.000-1.030) Urine Protein (Negative) Urine Glucose (UA) (Negative) Urine Ketones (Negative) Urine Blood (Negative) Urine Nitrite (Negative) Urine Bilirubin (Negative) Urine Urobilinogen (Negative) Ur Leukocyte Esterase (Negative) Urine WBC (Auto) (0-5) /hpf Urine RBC (Auto) (0-4) /hpf U Hyaline Cast (Auto) (0-5) /lpf U Epithel Cells (Auto) (0-5) /lpf Urine Bacteria (Auto) (Negative) Urine Opiates Screen (Neg) Ur Methadone, Qual (Neg) Urine Barbiturates (Neg) Ur Phencyclidine (PCP) (Neg) U Amphetamin/Meth Scrn (Neg) MDMA (Ecstasy) Screen (Neg) U Benzodiazepines Scrn (Neg) Ur Cocaine Metabolite (Neg) U Marijuana (THC) Screen (Neg) Ethyl Alcohol mg/dL < 10.0 (<10.0) mg/dl SARS-CoV-2, RNA, NAAT (NEGATIVE) 06/15/22 06/15/22 06/15/22 Range/Units 15:07 15:30 16:11 WBC (4.8-10.8) K/ul RBC (3.93-5.22) M/uL Hgb (12.0-16.0) g/dl Hct (34.1-44.9) % MCV (80.0-100.0) fL MCH (25.0-34.0) pg MCHC (32.0-36.0) g/dL RDW Std Deviation (36.4-46.3) fL RDW Coeff of Daphney (11.5-14.5) % Plt Count (130-400) K/uL MPV (9.4-12.3) fL Immature Gran % (Auto) % Neut % (Auto) % Lymph % (Auto) % Jenkins % (Auto) % Eos % (Auto) % Baso % (Auto) % Neut # (Auto) (1.4-6.5) K/uL Lymph # (Auto) (1.2-3.4) K/uL Jenkins # (Auto) (0.24-0.82) K/uL Eos # (Auto) (0-0.50) K/uL Baso # (Auto) (0-0.2) K/uL Immature Gran # (Auto) (0.00-0.02) K/uL VBG pH (7.36-7.41) VBG pCO2 (38-50) mmHg VBG pO2 mmHg VBG HCO3 mmol/L VBG O2 Saturation % VBG Base Excess mEq/L Sodium 133 L (136-145) mmol/L Potassium TNP 4.5 Chloride 97 L (98-107) mmol/L Carbon Dioxide 24 (21-32) mmol/L Anion Gap 12 H (3-11) BUN 22 (6-23) mg/dl Creatinine 0.90 (0.6-1.2) mg/dl Est Cr Clr Drug Dosing 78.3 ml/min Est GFR ( Amer) 81.1 ml/min Est GFR (Non-Af Amer) 70.0 ml/min BUN/Creatinine Ratio 24.4 H (10-20) Glucose 286 H (70-99(Fasting)) mg/dl Calcium 9.0 (8.5-10.1) mg/dl Total Bilirubin 0.5 (0.2-1.0) mg/dl AST TNP 22 ALT 25 (7-52) U/L Alkaline Phosphatase 62 (34-104) U/L Troponin I High Sens 29.5 H (0-14) pg/ml Total Protein 7.5 (6.0-8.3) gm/dl Albumin 4.3 (3.4-5.0) gm/dl Globulin 3.2 (2.5-4.0) gm/dl Albumin/Globulin Ratio 1.3 (0.9-2) Lipase 23 (11-82) U/L Urine Color Urine Appearance (Clear) Urine pH (4.5-7.5) Ur Specific [place] (1.000-1.030) Urine Protein (Negative) Urine Glucose (UA) (Negative) Urine Ketones (Negative) Urine Blood (Negative) Urine Nitrite (Negative) Urine Bilirubin (Negative) Urine Urobilinogen (Negative) Ur Leukocyte Esterase (Negative) Urine WBC (Auto) (0-5) /hpf Urine RBC (Auto) (0-4) /hpf U Hyaline Cast (Auto) (0-5) /lpf U Epithel Cells (Auto) (0-5) /lpf Urine Bacteria (Auto) (Negative) Urine Opiates Screen (Neg) Ur Methadone, Qual (Neg) Urine Barbiturates (Neg) Ur Phencyclidine (PCP) (Neg) U Amphetamin/Meth Scrn (Neg) MDMA (Ecstasy) Screen (Neg) U Benzodiazepines Scrn (Neg) Ur Cocaine Metabolite (Neg) U Marijuana (THC) Screen (Neg) Ethyl Alcohol mg/dL (<10.0) mg/dl SARS-CoV-2, RNA, NAAT NEGATIVE (NEGATIVE) 06/15/22 06/15/22 Range/Units 16:20 16:20 WBC (4.8-10.8) K/ul RBC (3.93-5.22) M/uL Hgb (12.0-16.0) g/dl Hct (34.1-44.9) % MCV (80.0-100.0) fL MCH (25.0-34.0) pg MCHC (32.0-36.0) g/dL RDW Std Deviation (36.4-46.3) fL RDW Coeff of Daphney (11.5-14.5) % Plt Count (130-400) K/uL MPV (9.4-12.3) fL Immature Gran % (Auto) % Neut % (Auto) % Lymph % (Auto) % Jenkins % (Auto) % Eos % (Auto) % Baso % (Auto) % Neut # (Auto) (1.4-6.5) K/uL Lymph # (Auto) (1.2-3.4) K/uL Jenkins # (Auto) (0.24-0.82) K/uL Eos # (Auto) (0-0.50) K/uL Baso # (Auto) (0-0.2) K/uL Immature Gran # (Auto) (0.00-0.02) K/uL VBG pH (7.36-7.41) VBG pCO2 (38-50) mmHg VBG pO2 mmHg VBG HCO3 mmol/L VBG O2 Saturation % VBG Base Excess mEq/L Sodium (136-145) mmol/L Potassium Chloride (98-107) mmol/L Carbon Dioxide (21-32) mmol/L Anion Gap (3-11) BUN (6-23) mg/dl Creatinine (0.6-1.2) mg/dl Est Cr Clr Drug Dosing ml/min Est GFR ( Amer) ml/min Est GFR (Non-Af Amer) ml/min BUN/Creatinine Ratio (10-20) Glucose (70-99(Fasting)) mg/dl Calcium (8.5-10.1) mg/dl Total Bilirubin (0.2-1.0) mg/dl AST ALT (7-52) U/L Alkaline Phosphatase (34-104) U/L Troponin I High Sens (0-14) pg/ml Total Protein (6.0-8.3) gm/dl Albumin (3.4-5.0) gm/dl Globulin (2.5-4.0) gm/dl Albumin/Globulin Ratio (0.9-2) Lipase (11-82) U/L Urine Color Yellow Urine Appearance Clear (Clear) Urine pH 5.5 (4.5-7.5) Ur Specific [place] 1.010 (1.000-1.030) Urine Protein Negative (Negative) Urine Glucose (UA) 2+ H (Negative) Urine Ketones Negative (Negative) Urine Blood Negative (Negative) Urine Nitrite Negative (Negative) Urine Bilirubin Negative (Negative) Urine Urobilinogen Negative (Negative) Ur Leukocyte Esterase 2+ H (Negative) Urine WBC (Auto) 10-30 H (0-5) /hpf Urine RBC (Auto) 0-4 (0-4) /hpf U Hyaline Cast (Auto) 1-5 (0-5) /lpf U Epithel Cells (Auto) >30 H (0-5) /lpf Urine Bacteria (Auto) Negative (Negative) Urine Opiates Screen Neg (Neg) Ur Methadone, Qual Neg (Neg) Urine Barbiturates Neg (Neg) Ur Phencyclidine (PCP) Neg (Neg) U Amphetamin/Meth Scrn Neg (Neg) MDMA (Ecstasy) Screen Neg (Neg) U Benzodiazepines Scrn Neg (Neg) Ur Cocaine Metabolite Neg (Neg) U Marijuana (THC) Screen Neg (Neg) Ethyl Alcohol mg/dL (<10.0) mg/dl SARS-CoV-2, RNA, NAAT (NEGATIVE) Administered Medications Discontinued Medications Acetaminophen (Acetaminophen 325 Mg Tab) 650 mg PO NOW STA Stop: 06/15/22 17:53 Last Admin: 06/15/22 18:18 Dose: 650 mg Documented By: ASW Imaging Data Radiologist's Impression: Cervical Spine CT 06/15/22 14:50 CT OF THE CERVICAL SPINE WITHOUT CONTRAST CLINICAL HISTORY: Fall. COMPARISON STUDY: Cervical spine fluoroscopic images August 02, 2019. MRI of the cervical spine March 02, 2018. TECHNIQUE: Helical axial images of the cervical spine were obtained without IV contrast. Sagittal and coronal reconstructions were viewed. Automated exposure control was utilized for the study. A dose lowering technique was utilized adhering to the principles of ALARA. FINDINGS: Alignment of the cervical spine is anatomic. Vertebral body heights are maintained. No acute cervical spine fracture or subluxation is present. There is no prevertebral edema. Facet joints are intact. Postoperative findings consistent with C6-C7 anterior discectomy and fusion are noted. Hardware is intact. Multilevel disc space narrowing, osteophytosis and facet arthrosis is present. IMPRESSION: 1. No acute cervical spine fracture or subluxation. 2. Status post C6-C7 anterior discectomy and fusion. ACT 112: Negative or not required by law. Electronically signed by: Erik Roman M.D. 06/15/2022 3:[address] 06/15/22 14:50 CT head/brain wo con CLINICAL HISTORY: fall Technique: Contiguous axial CT images of the head were acquired from the base of the skull to the vertex without intravenous contrast administration. Images were viewed in brain, subdural and bone windows. Automated dose lowering techniques and/or adjustment according to patient size were utilized for this exam. Comparison: None available at the time of this dictation. Findings: The ventricles, basal cisterns, and cerebral sulci are normal. There is no acute intracranial hemorrhage or evidence of acute territorial infarction. Neither mass effect, shift of the midline structures, nor abnormal extra-axial fluid collections are shown. Imaged portions of the paranasal sinuses and mastoid air cells are clear. The orbits appear normal. There are no acute fractures of the calvaria or scalp swelling. Impression: No acute intracranial hemorrhage, no evidence of acute territorial infarction or other acute intracranial disease process. ACT 112: Negative or not required by law. Electronically signed by: Ayaz Santana M.D. 06/15/2022 3:40 PM Chest X-Ray 06/15/22 14:51 XR chest 1V portable CLINICAL HISTORY: Chest Pain. COMPARISON STUDY: 05/24/2021 TECHNIQUE: 1 view of the chest FINDINGS: Single frontal view of the chest demonstrates the cardiomediastinal silhouette to be within normal limits. There is a decreased inspiratory effort with eleva tion of the hemidiaphragms and crowding of the bronchovascular markings at the lung bases and centrally. The lungs are clear of alveolar opacities. There is no evidence for pleural effusion. There is no evidence for vascular congestion. There is no acute osseous pathology. IMPRESSION: 1. There is a decreased inspiratory effort with otherwise no acute chest dis ease. ACT 112: Negative or not required by law. Electronically signed by: Sebastián Benitez M.D. 06/15/2022 4:23 PM Discharge Plan Visit Data Chief Complaint: Syncope ED Provider: Roger Felder Discharge Problem: Syncope, Elevated troponin, AMS (altered mental status) Patient Disposition: Admitted As Inpatient Discharge Instructions Interventions: ED Discharge Assessment Last Done: 06/15/22 19:19
[2022-06-15 15:20] LABS: Base Excess VBG 1.7 mEq/L; HCO3 VBG 27 mmol/L; Oxygen Saturation VBG 82.8 %; PCO2 VBG 42 mmHg (38-50); PO2 VBG 47 mmHg; pH VBG 7.41 (7.36-7.41)
[2022-06-15 15:21] LABS: Basophils # (auto) 0.06 K/uL (0-0.2); Basophils % (auto) 0.6 %; Eosinophils # (auto) 0.12 K/uL (0-0.50); Eosinophils % (auto) 1.1 %; Hematocrit (blood only) 39.5 % (34.1-44.9); Hemoglobin 13.1 g/dl (12.0-16.0); Immature Granulocytes # (auto) 0.04 K/uL (0.00-0.02); Immature Granulocytes % (auto) 0.4 %; Lymphocytes # (auto) 2.06 K/uL (1.2-3.4); Lymphocytes % (auto) 19.7 %; Mean Corpuscular Hemoglobin 28.7 pg (25.0-34.0); Mean Corpuscular Hgb Conc 33.2 g/dL (32.0-36.0); Mean Corpuscular Volume 86.4 fL (80.0-100.0); Mean Platelet Volume 10.2 fL (9.4-12.3); Monocytes # (auto) 0.88 K/uL (0.24-0.82); Monocytes % (auto) 8.4 %; Neutrophils # (auto) 7.28 K/uL (1.4-6.5); Neutrophils % (auto) 69.8 %; Platelet Count 242 K/uL (130-400); RDW Standard Deviation 44.1 fL (36.4-46.3); Red Blood Count 4.57 M/uL (3.93-5.22); White Blood Count 10.44 K/ul (4.8-10.8)
--- NOTE | 2022-06-15 15:41 | CT Scan Report ---
CT head/brain wo con CLINICAL HISTORY: fall Technique: Contiguous axial CT images of the head were acquired from the base of the skull to the [facility] without intravenous contrast administration. Images were viewed in brain, subdural and bone [facility]. Automated dose lowering techniques and/or adjustment according to patient size were utilized for this exam. Comparison: None available at the time of this dictation. Findings: The ventricles, basal cisterns, and cerebral sulci are normal. There is no acute intracranial hemorrh age or evidence of acute territorial infarction. Neither mass effect, shift of the midline structures , nor abnormal extra-axial fluid collections are shown. Imaged portions of the paranasal sinuses and mastoid air cells are clear. The orbits appear normal. There are no acute fractures of the calvaria or scalp swelling. Impression: No acute intracranial hemorrhage, no evidence of acute territorial infarction or other acute intracra nial disease process. ACT 112: Negative or not required by law. Electronically signed by: Ayaz Santana M.D. 06/15/2022 3:40 PM
--- NOTE | 2022-06-15 15:54 | CT Scan Report ---
CT OF THE CERVICAL SPINE WITHOUT CONTRAST CLINICAL HISTORY: Fall. COMPARISON STUDY: Cervical spine fluoroscopic images August 02, 2019. MRI of the cervical spine A [facility] 2017. TECHNIQUE: Helical axial images of the cervical spine were obtained without IV contrast. Sagittal a nd coronal reconstructions were viewed. Automated exposure control was utilized for the study. A do se lowering technique was utilized adhering to the principles of ALARA. FINDINGS: Alignment of the cervical spine is anatomic. Vertebral body heights are maintained. No acut e cervical spine fracture or subluxation is present. There is no prevertebral edema. Facet joints are intact. Postoperative findings consistent with C6-C7 anterior discectomy and fusion are noted. Hard munoz is intact. Multilevel disc space narrowing, osteophytosis and facet arthrosis is present. IMPRESSION: 1. No acute cervical spine fracture or subluxation. 2. Status post C6-C7 anterior discectomy and fusion. ACT 112: Negative or not required by law. Electronically signed by: Erik Roman M.D. 06/15/2022 3:53 PM
[2022-06-15 15:59] LABS: Alanine Aminotransferase 25 U/L (7-52); Albumin Globulin Ratio 1.3 (0.9-2); Albumin Level 4.3 gm/dl (3.4-5.0); Alkaline Phosphatase 62 U/L (34-104); Anion Gap 12 (3-11); BUN Creatinine Ratio 24.4 (10-20); Bilirubin,Total 0.5 mg/dl (0.2-1.0); Blood Urea Nitrogen 22 mg/dl (6-23); Carbon Dioxide 24 mmol/L (21-32); Chloride 97 mmol/L (98-107); Creatinine Clr Calc Pharmacy 78.3 ml/min; Est GFR (African American) 81.1 ml/min; Globulin 3.2 gm/dl (2.5-4.0); Glucose 286 mg/dl (70-99(Fasting)); Lipase 23 U/L (11-82); Sodium 133 mmol/L (136-145); Total Protein 7.5 gm/dl (6.0-8.3); Troponin I High Sensitivity 29.5 pg/ml (0-14)
--- NOTE | 2022-06-15 16:24 | XRay Report ---
XR chest 1V portable CLINICAL HISTORY: Chest Pain. COMPARISON STUDY: 05/24/2021 TECHNIQUE: 1 view of the chest FINDINGS: Single frontal view of the chest demonstrates the cardiomediastinal silhouette to be within normal li mits. There is a decreased inspiratory effort with elevation of the hemidiaphragms and crowding of th e bronchovascular markings at the lung bases and centrally. The lungs are clear of alveolar opacities . There is no evidence for pleural effusion. There is no evidence for vascular congestion. There is n o acute osseous pathology. IMPRESSION: 1. There is a decreased inspiratory effort with otherwise no acute chest disease. ACT 112: Negative or not required by law. Electronically signed by: Sebastián Benitez M.D. 06/15/2022 4:23 PM
[2022-06-15 16:47] LABS: Appearance Urine Clear (Clear); Bacteria Urine Automated Negative (Negative); Bilirubin Urine Negative (Negative); Blood Urine Negative (Negative); Color Urine Yellow; Epithelial Cell Urine Auto >30 /lpf (0-5); Glucose Urine UA 2+ (Negative); Ketones Urine Negative (Negative); Leukocyte Esterase Urine 2+ (Negative); Nitrite Urine Negative (Negative); Protein Urine Negative (Negative); RBC Urine Automated 0-4 /hpf (0-4); Urobilinogen Urine Negative (Negative); pH Urine 5.5 (4.5-7.5)
[2022-06-15 16:52] LABS: Potassium 4.5 mmol/L (3.5-5.1)
[2022-06-15 17:14] LABS: Amphetamines+Metham, Urine Neg (Neg); Barbiturates, Urine Neg (Neg); Benzodiazepine, Urine Neg (Neg); Cocaine, Urine Neg (Neg); MDMA (Ecstacy), Urine Neg (Neg); Methadone, Urine Neg (Neg); Opiate, Urine Neg (Neg); Phencyclidine, Urine Neg (Neg)
--- NOTE | 2022-06-15 17:27 | History & Physical Report ---
Date of Service June 15, 2022 Assessment & Plan (1) Syncope: (2) Diabetes mellitus, type II: (3) Elevated troponin: (4) Chest pain: Plan Patient is a 57-year-old female with past medical history of type 2 diabetes mellitus, postsurgical hypothyroidism, generalized anxiety disorder, diabetic neuropathy, hyperlipidemia, coronary artery disease, chronic RBBB presents to the ED with complaint of chest pain and syncopal episode. 1) Syncopal episode ( ?Cardiogenic) 2) Chest pain 3) Elevated Troponin -Chest pain followed by syncopal episode sitting position No aura, abnormal body movements or confusion following the syncopal episode [id number] EKGsinus rhythm, right bundle branch block; similar to last admission's EKG Echo in 02/2022EF of 55 to 59%; grade 1 diastolic dysfunction Left heart cath in hronic chronic right coronary occlusion with collaterals fill via left anatomy. CT head and cervicalno acute abnormality Plan: Admit to telemetry; trend troponin. EKG as needed. -Cardiology consult; patient was recommended to have Zio patch as outpatient. Continue on aspirin, rosuvastatin and metoprolol. 4) Hyperglycemia Patient on insulin pump. - A1c is 12.6% in 04/2022 Plan; Stop insulin Pump while inpatient. Started on Lantus 16 units twice daily and NovoLog. Hypoglycemia protocol Chronic Conditions: Depression/NBA- Continue duloxetine, klocopin as needed Diabetic neuropathy- continue gabapentin Code status- DNR/DNI Diet- diabetic diet DVT- Lovenox History of Present Illness Chief Complaint: Chest pain for 1 day Syncopal episode Primary Care Provider: Ivonne French PA-C Patient is a 57-year-old female with past medical history of type 2 diabetes mellitus, postsurgical hypothyroidism, generalized anxiety disorder, diabetic neuropathy, hyperlipidemia, coronary artery disease, chronic RBBB presents to the ED with complaint of chest pain and syncopal episode. Patient complains of episode of chest pain on her left side followed by a syncopal episode . The pain was located on the left side, nonradiating, not associated with palpitation, diaphoresis or nausea or vomiting. Patient says that she passed out after the chest pain and does not remember the events thereafter. Patient was sitting when the event happened. She denies any preceding aura, bowel/bladder incontinence or confusion after the syncopal episode. She denies any fever, chills, abdominal pain or urinary symptoms. 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 Her last coronary angiography was on March 19, 2022 which showed a chronic right coronary occlusion with collaterals fill via left anatomy. She was recommended to have Zio patch event monitor during the visit. However, patient denies having Zio patch placed. Last echo was on February 2022, found to have EF of 55 to 59% with grade 1 diastolic dysfunction. Allergies Allergy/AdvReac Type Severity Reaction Status Date / Time adhesive tape Allergy Mild PER PT Verified 06/03/22 07:59 "GLUE ON TAPE"--SKIN IRRITATION Home Medications Medication Instructions Recorded Confirmed Type aspirin 81 mg tablet,delayed 81 mg PO QAM 02/18/19 06/15/22 History release omeprazole 20 mg tablet,delayed 20 mg PO BID 02/18/19 06/15/22 History release amlodipine 2.5 mg tablet 2.5 mg PO QPM 03/27/19 06/15/22 History gabapentin 100 mg capsule 100 mg PO TID 07/21/19 06/15/22 History metoprolol succinate 25 mg 25 mg PO QAM 05/24/21 06/15/22 History tablet,extended release 24 hr rosuvastatin 40 mg tablet 40 mg PO QAM 05/24/21 06/15/22 History cholecalciferol (vitamin D3) 50 50 mcg PO DAILY 12/30/21 06/15/22 History mcg (2,000 unit) capsule (Vitamin D3) clonazepam 0.5 mg tablet 0.5 mg PO BID PRN Anxiety 12/30/21 06/15/22 History insulin aspart U-100 100 unit/mL 200 unit subcut UD 12/30/21 06/15/22 History subcutaneous solution insulin pump cart,cont inf,BT 12/30/21 06/15/22 History (Omnipod Dash Pods (Gen 4) subcutaneous cartridge) levothyroxine 150 mcg tablet 150 mcg PO QAM 12/30/21 06/15/22 History (Synthroid) turmeric root extract 500 mg 500 mg PO QAM 12/30/21 06/15/22 History capsule dulaglutide 1.5 mg/0.5 mL 1.5 mg subcut WK 03/18/22 06/15/22 History subcutaneous pen injector (Trulicity) metformin 1,000 mg tablet,extended 1,000 mg PO BIDWMEAL #0 tabs 04/28/22 06/15/22 Rx release 24hr trazodone 50 mg tablet 50 mg PO HS 05/29/22 06/15/22 History duloxetine 30 mg capsule,delayed 30 mg PO DAILY 06/15/22 06/15/22 History release Past Med/Surg History Medical History Amputation of toe Anxiety Benign neoplasm of vulva of clitoris CAD (coronary artery disease) Diabetes mellitus, type II insulin pump GERD (gastroesophageal reflux disease) History of thyroid cancer with surgical intervention Hyperglycemia Hypertension Myocardial Infarction 12 YEARS AGO (FOLLOWED BY DR. DODSON) VERBALIZED NO HEART CATH DONE Peripheral neuropathy Restless leg syndrome Schwannoma REMOVED BY DR. GROSSMAN MARCH 2018 Stroke 7 YEARS AGO (LEFT SIDE WEAKNESS/LEFT EYE DROOPING) > follows with a neurologist unsure of name Suicidal ideation resolved per pt Tumor LEFT FEMUR (BENIGN) 2 TUMORS REMOVED > several yrs ago Vulvitis resolved per pt Surgical History Family history of reaction to anesthesia BROTHER-NAUSEA H/O blepharoplasty RT/LEFT History of anesthesia reaction SLOW TO WAKE UP History of cardiac cath March 2022, [facility] > no stents/ just check up per pt History of cholecystectomy History of colonoscopy History of esophagogastroduodenoscopy (EGD) History of neck surgery anterior cervical discectomy with bilateral foraminotomies C6-7. #2 anterior cervical arthrodesis C6-7. #3 placement of titanium 9.9 mm cage filled with DBM and C6-7. #4 occasional hernandez plate and screws across C6-7 >> ROM no limitations History of surgery robot-assist left thorascopic resection of schwannoma from left upper mediastinum. 03/16/2018. SANG. A line. No issues. 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 Head: Normocephalic, Atraumatic Eyes: PERRL, conjunctivae normal, anicteric sclerae ENMT: external ear and nose normal, oropharynx normal Neck: trachea midline, no thyromegaly normal visual inspection Respiratory: normal respiratory effort, lungs clear to auscultation, no wheeze, rales, rhonchi. Normal insp/exp effort, no accessory muscle use Cardiovascular: RRR, no murmur, no edema Vessels: no JVD or carotid bruit Chest: normal inspection of chest Abdomen: normal bowel sounds, soft, nontender, no hepatosplenomegaly Musculoskeletal: no cyanosis or clubbing, extremities motor strength 5/5 Skin: no rashes, warm and dry normal turgor Neurologic: PERRL, EOMI, accommodation nl, no face palsy, no dysarthria CN's II- XI intact bilaterally and moves all extremities Psychiatric: A+Ox3, euthymic affect Lymphatic: no cervical or axillary lymphadenopathy : deferred Results & Data Results & Data ([facility]) Vital Signs (Past 12 Hours) Vital Signs Temp Pulse Pulse Resp BP Pulse Ox O2 Del Method 06/15/22 16:00 81 18 114/58 L 100 Room Air 06/15/22 15:10 Room Air 06/15/22 15:30 79 18 122/68 97 Room Air 06/15/22 15:12 Room Air 06/15/22 14:53 36.4 C L 83 18 98 Room Air Diagnostic Findings Cervical Spine CT 06/15/22 14:50 CT OF THE CERVICAL SPINE WITHOUT CONTRAST CLINICAL HISTORY: Fall. COMPARISON STUDY: Cervical spine fluoroscopic images August 02, 2019. MRI of the cervical spine March 02, 2018. TECHNIQUE: Helical axial images of the cervical spine were obtained without IV contrast. Sagittal and coronal reconstructions were viewed. Automated exposure control was utilized for the study. A dose lowering technique was utilized adhering to the principles of ALARA. FINDINGS: Alignment of the cervical spine is anatomic. Vertebral body heights are maintained. No acute cervical spine fracture or subluxation is present. There is no prevertebral edema. Facet joints are intact. Postoperative findings consistent with C6-C7 anterior discectomy and fusion are noted. Hardware is intact. Multilevel disc space narrowing, osteophytosis and facet arthrosis is present. IMPRESSION: 1. No acute cervical spine fracture or subluxation. 2. Status post C6-C7 anterior discectomy and fusion. ACT 112: Negative or not required by law. Electronically signed by: Erik Roman M.D. 06/15/2022 3:[address] 06/15/22 14:50 CT head/brain wo con CLINICAL HISTORY: fall Technique: Contiguous axial CT images of the head were acquired from the base of the skull to the vertex without intravenous contrast administration. Images were viewed in brain, subdural and bone windows. Automated dose lowering techniques and/or adjustment according to patient size were utilized for this exam. Comparison: None available at the time of this dictation. Findings: The ventricles, basal cisterns, and cerebral sulci are normal. There is no acute intracranial hemorrhage or evidence of acute territorial infarction. Neither mass effect, shift of the midline structures, nor abnormal extra-axial fluid collections are shown. Imaged portions of the paranasal sinuses and mastoid air cells are clear. The orbits appear normal. There are no acute fractures of the calvaria or scalp swelling. Impression: No acute intracranial hemorrhage, no evidence of acute territorial infarction or other acute intracranial disease process. ACT 112: Negative or not required by law. Electronically signed by: Ayaz Santana M.D. 06/15/2022 3:40 PM Chest X-Ray 06/15/22 14:51 XR chest 1V portable CLINICAL HISTORY: Chest Pain. COMPARISON STUDY: 05/24/2021 TECHNIQUE: 1 view of the chest FINDINGS: Single frontal view of the chest demonstrates the cardiomediastinal silhouette to be within normal limits. There is a decreased inspiratory effort with elevation of the hemidiaphragms and crowding of the bronchovascular markings at the lung bases and centrally. The lungs are clear of alveolar opacities. There is no evidence for pleural effusion. There is no evidence for vascular congestion. There is no acute osseous pathology. IMPRESSION: 1. There is a decreased inspiratory effort with otherwise no acute chest disease. ACT 112: Negative or not required by law. Electronically signed by: Sebastián Benitez M.D. 06/15/2022 4:23 PM COVID-19 Results Results COVID-19 Adm Lab Results: RBC 4.57 M/uL (3.93-5.22) 06/15/22 WBC 10.44 K/ul (4.8-10.8) 06/15/22 Hgb 13.1 g/dl (12.0-16.0) 06/15/22 Hct 39.5 % (34.1-44.9) 06/15/22 Plt Count 242 K/uL (130-400) 06/15/22 Neutrophils (%) (Auto) 69.8 % 06/15/22 Lymphocytes (%) (Auto) 19.7 % 06/15/22 Monocytes # (Auto) 0.88 K/uL (0.24-0.82) H 06/15/22 Eosinophils # (Auto) 0.12 K/uL (0-0.50) 06/15/22 Immature Granulocyte % (Auto) 0.4 % 06/15/22 Neutrophils # (Auto) 7.28 K/uL (1.4-6.5) H 06/15/22 Lymphocytes # (Auto) 2.06 K/uL (1.2-3.4) 06/15/22 Monocytes # (Auto) 0.88 K/uL (0.24-0.82) H 06/15/22 Eosinophils # (Auto) 0.12 K/uL (0-0.50) 06/15/22 Basophils # (Auto) 0.06 K/uL (0-0.2) 06/15/22 Immature Granulocyte # (Auto) 0.04 K/uL (0.00-0.02) H 06/15 Na 133 mmol/L (136-145) L 06/15/22 K 4.5 mmol/L (3.5-5.1) 06/15/22 Cl 97 mmol/L (98-107) L 06/15/22 CO2 24 mmol/L (21-32) 06/15/22 Anion Gap 12 (3-11) H 06/15/22 BUN 22 mg/dl (6-23) 06/15/22 Creatinine 0.90 mg/dl (0.6-1.2) 06/15/22 BUN/Creatinine Ratio 24.4 (10-20) H 06/15/22 Glucose Level 286 mg/dl (70-99(Fasting)) H 06/15/22 Ca 9.0 mg/dl (8.5-10.1) 06/15/22 Total Bilirubin 0.5 mg/dl (0.2-1.0) 06/15/22 AST/SGOT 22 U/L (13-39) 06/15/22 ALT/SGPT 25 U/L (7-52) 06/15/22 Alkaline Phosphatase 62 U/L (34-104) 06/15/22 Total Protein 7.5 gm/dl (6.0-8.3) 06/15/22 Albumin 4.3 gm/dl (3.4-5.0) 06/15/22 Globulin 3.2 gm/dl (2.5-4.0) 06/15/22 Albumin/Globulin Ratio 1.3 (0.9-2) 06/15/22 SARS-CoV-2, RNA, NAAT Pending 06/15/22 Chest X-Ray 06/15/22 (1) Diabetes mellitus, type II Diabetes mellitus complication status: with hyperglycemia Diabetes mellitus assisted insulin use: with long wall shear operator use Qualified Code(s): E11.65 - Type 2 diabetes mellitus with hyperglycemia; 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
[2022-06-15] MEDS ORDERED: ACETAMINOPHEN 325 MG TAB PO STA (17:52)
[2022-06-15] MEDS ORDERED: GLUCOSE 40% GEL 15 GM TUBE PO PRN (20:07)
[2022-06-15] MEDS ORDERED: DEXTROSE 50% 50 ML SYRINGE IV PRN (20:07)
[2022-06-15] MEDS ORDERED: GLUCAGON FOR INJ 1 MG VIAL SQ PRN (20:07)
[2022-06-15] MEDS ORDERED: ACETAMINOPHEN 325 MG TAB PO PRN (20:07)
[2022-06-15] MEDS ORDERED: CARBOHYDRATES FOR HYPOGLYCEMIA PO PRN (20:07)
[2022-06-15] MEDS ORDERED: GLUCOSE 10 TAB/TUBE PO PRN (20:07)
[2022-06-15] MEDS ORDERED: ONDANSETRON INJ 2 MG/ML 2 ML VIAL IV PRN (20:07)
[2022-06-15] MEDS ORDERED: PHARMACY GLYCEMIC MGMT CONSULT PRN (20:07)
[2022-06-15] MEDS: INSULIN ASPART PER UNIT SC SCH (21:52)
[2022-06-15] MEDS: LANTUS PER UNIT CHARGE SQ SCH (21:52)
[2022-06-15] MEDS: GABAPENTIN 100 MG CAP PO SCH (21:56)
[2022-06-15] MEDS: amLODIPine BESYLATE 5 MG TAB PO SCH (21:56)
[2022-06-15] MEDS: traZODone HCL 50 MG TAB PO SCH (21:57)
[2022-06-15] MEDS: PANTOprazole 40 MG TAB PO SCH (21:57)
[2022-06-15] MEDS: clonazePAM 0.5 MG TAB PO PRN (21:59)
--- NOTE | 2022-06-16 06:14 | Electrocardiogram Report ---
Test Reason : Blood Pressure : / mmHG Vent. Rate : 087 BPM Atrial Rate : 087 BPM P-R Int : 142 ms QRS Dur : 140 ms QT Int : 394 ms P-R-T Axes : 033 081 024 degrees QTc Int : 474 ms Normal sinus rhythm Right bundle branch block Inferior infarct , age undetermined Abnormal ECG When compared with ECG of 09-APR-2022 15:12, No significant change was found Confirmed by Abel Hassan ([id number]) on 06/16/2022 6:13:48 AM Referred By: ED Confirmed By:Abel Hassan
[2022-06-16] MEDS: LEVOTHYROXINE SODIUM 150 MCG TABLET PO SCH (06:34)
--- NOTE | 2022-06-16 06:59 | Hospitalist Progress Note ---
Date of Service June 16, 2022 Assessment & Plan (1) Syncope: (2) Diabetes mellitus, type II: (3) Elevated troponin: (4) Chest pain: Plan Patient is a 57-year-old female with past medical history of type 2 diabetes mellitus, postsurgical hypothyroidism, generalized anxiety disorder, diabetic neuropathy, hyperlipidemia, coronary artery disease, chronic RBBB presents to the ED with complaint of chest pain and syncopal episode. 1) Syncopal episode ( ?Cardiogenic) 2) Chest pain 3) Elevated Troponin -Chest pain followed by syncopal episode sitting position No aura, abnormal body movements or confusion following the syncopal episode [id number] on admission, repeat essentially unchanged EKGsinus rhythm, right bundle branch block; similar to last admission's EKG Echo in 02/2022EF of 55 to 59%; grade 1 diastolic dysfunction Left heart cath in 03/2022 chronic chronic right coronary occlusion with collaterals fill via left anatomy -patient was recommended to have Zio patch as outpatient. CT head and cervicalno acute abnormality Continue on aspirin, rosuvastatin and metoprolol. Cardiology consulted - closely monitor on tele - plan to obtain echo - further recommendations after eval. by attending physician 4) Hyperglycemia Patient on insulin pump. - A1c is 12.6% in 04/2022 -glycemic pharmacy consulted 5) R toe wound -History of osteomyelitis on left toe -Patient had a trauma to the right toe, and was followed by [place] wound clinic -She was discharged by the wound clinic, however continues to have wound there, and also some bleeding -Blood cultures pending -ESR, CRP ordered, x-ray of right toe ordered -When results available, will decide if further Ortho evaluation necessary, or continue with wound care Chronic Conditions: Depression/NBA- Continue duloxetine, klonopin as needed Diabetic neuropathy- continue gabapentin Code status- DNR/DNI Diet- diabetic diet DVT- Lovenox Admission and Anticipated Discharge Date Admission Date: June 15, 2022 Subjective Patient seen in follow-up for chest pain and syncope Patient reports, that overnight she had several more episodes of chest discomfort, she reports pain as stabbing, comes and goes Currently no chest pain, no shortness of breath, no dizziness or lightheadedness. Reports some headache. Also reports right toe trauma, followed by wound care. She was discharged from wound care, however noted some bleeding there. Cardiology consulted Review of Systems Review of Systems: All systems reviewed & are unremarkable except as noted in Subjective Physical Exam Physical Exam: Constitutional: WD/WN F, Alert, oriented x3, not in acute distress. Head: Normocephalic, Atraumatic Eyes: PERRL, EOMI, conjunctivae normal, anicteric sclerae ENMT: external ear and nose normal, oropharynx normal Neck: normal visual inspection Respiratory: normal respiratory effort, lungs clear to auscultation, no wheeze, rales, rhonchi Cardiovascular: RRR, no murmur, no edema Vessels: no JVD Chest: normal inspection of chest Abdomen: normal bowel sounds, soft, nontender Musculoskeletal: moves extremities, no LE edema, R toe - small wound, small amount of bleeding (old injury) Skin: no rashes, warm and dry normal turgor Neurologic: PERRL, EOMI,no face palsy, answers questions appropriately, no dysarthria, moves all extremities Results & Data Results & Data ([facility]) Vital Signs (Past 12 Hours) Vital Signs Temp Pulse Resp BP BP Pulse Ox O2 Del Method 06/16/22 02:41 36.6 C 72 18 101/59 L 94 Room Air 06/15/22 23:22 36.7 C 74 18 109/51 L 96 Room Air 06/15/22 19:45 36.9 C 76 20 136/66 98 Room Air 06/15/22 19:19 Room Air 06/15/22 19:15 75 18 120/71 99 Room Air Laboratory Results 06/15/22 06/15/22 06/15/22 Range/Units 22:58 20:27 17:45 WBC (4.8-10.8) K/ul RBC (3.93-5.22) M/uL Hgb (12.0-16.0) g/dl Hct (34.1-44.9) % MCV (80.0-100.0) fL MCH (25.0-34.0) pg MCHC (32.0-36.0) g/dL RDW Std Deviation (36.4-46.3) fL RDW Coeff of Daphney (11.5-14.5) % Plt Count (130-400) K/uL MPV (9.4-12.3) fL Immature Gran % (Auto) % Neut % (Auto) % Lymph % (Auto) % [place] % (Auto) % Eos % (Auto) % Baso % (Auto) % Neut # (Auto) (1.4-6.5) K/uL Lymph # (Auto) (1.2-3.4) K/uL [place] # (Auto) (0.24-0.82) K/uL Eos # (Auto) (0-0.50) K/uL Baso # (Auto) (0-0.2) K/uL Immature Gran # (Auto) (0.00-0.02) K/uL VBG pH (7.36-7.41) VBG pCO2 (38-50) mmHg VBG pO2 mmHg VBG HCO3 mmol/L VBG O2 Saturation % VBG Base Excess mEq/L Sodium (136-145) mmol/L Potassium Chloride (98-107) mmol/L Carbon Dioxide (21-32) mmol/L Anion Gap (3-11) BUN (6-23) mg/dl Creatinine (0.6-1.2) mg/dl Est Cr Clr Drug Dosing ml/min Est GFR ( Amer) ml/min Est GFR (Non-Af Amer) ml/min BUN/Creatinine Ratio (10-20) Glucose (70-99(Fasting)) mg/dl POC Glucose 201 H (70-99) mg/dl Calcium (8.5-10.1) mg/dl Total Bilirubin (0.2-1.0) mg/dl AST ALT (7-52) U/L Alkaline Phosphatase (34-104) U/L Troponin I High Sens 28.2 H 30.4 H (0-14) pg/ml Total Protein (6.0-8.3) gm/dl Albumin (3.4-5.0) gm/dl Globulin (2.5-4.0) gm/dl Albumin/Globulin Ratio (0.9-2) Lipase (11-82) U/L Urine Color Urine Appearance (Clear) Urine pH (4.5-7.5) Ur Specific [place] (1.000-1.030) Urine Protein (Negative) Urine Glucose (UA) (Negative) Urine Ketones (Negative) Urine Blood (Negative) Urine Nitrite (Negative) Urine Bilirubin (Negative) Urine Urobilinogen (Negative) Ur Leukocyte Esterase (Negative) Urine WBC (Auto) (0-5) /hpf Urine RBC (Auto) (0-4) /hpf U Hyaline Cast (Auto) (0-5) /lpf U Epithel Cells (Auto) (0-5) /lpf Urine Bacteria (Auto) (Negative) Urine Opiates Screen (Neg) Ur Methadone, Qual (Neg) Urine Barbiturates (Neg) Ur Phencyclidine (PCP) (Neg) U Amphetamin/Meth Scrn (Neg) MDMA (Ecstasy) Screen (Neg) U Benzodiazepines Scrn (Neg) Ur Cocaine Metabolite (Neg) U Marijuana (THC) Screen (Neg) Ethyl Alcohol mg/dL (<10.0) mg/dl SARS-CoV-2, RNA, NAAT (NEGATIVE) 06/15/22 06/15/22 06/15/22 Range/Units 16:20 16:20 16:11 WBC (4.8-10.8) K/ul RBC (3.93-5.22) M/uL Hgb (12.0-16.0) g/dl Hct (34.1-44.9) % MCV (80.0-100.0) fL MCH (25.0-34.0) pg MCHC (32.0-36.0) g/dL RDW Std Deviation (36.4-46.3) fL RDW Coeff of Daphney (11.5-14.5) % Plt Count (130-400) K/uL MPV (9.4-12.3) fL Immature Gran % (Auto) % Neut % (Auto) % Lymph % (Auto) % [place] % (Auto) % Eos % (Auto) % Baso % (Auto) % Neut # (Auto) (1.4-6.5) K/uL Lymph # (Auto) (1.2-3.4) K/uL [place] # (Auto) (0.24-0.82) K/uL Eos # (Auto) (0-0.50) K/uL Baso # (Auto) (0-0.2) K/uL Immature Gran # (Auto) (0.00-0.02) K/uL VBG pH (7.36-7.41) VBG pCO2 (38-50) mmHg VBG pO2 mmHg VBG HCO3 mmol/L VBG O2 Saturation % VBG Base Excess mEq/L Sodium (136-145) mmol/L Potassium 4.5 Chloride (98-107) mmol/L Carbon Dioxide (21-32) mmol/L Anion Gap (3-11) BUN (6-23) mg/dl Creatinine (0.6-1.2) mg/dl Est Cr Clr Drug Dosing ml/min Est GFR ( Amer) ml/min Est GFR (Non-Af Amer) ml/min BUN/Creatinine Ratio (10-20) Glucose (70-99(Fasting)) mg/dl POC Glucose (70-99) mg/dl Calcium (8.5-10.1) mg/dl Total Bilirubin (0.2-1.0) mg/dl AST 22 ALT (7-52) U/L Alkaline Phosphatase (34-104) U/L Troponin I High Sens (0-14) pg/ml Total Protein (6.0-8.3) gm/dl Albumin (3.4-5.0) gm/dl Globulin (2.5-4.0) gm/dl Albumin/Globulin Ratio (0.9-2) Lipase (11-82) U/L Urine Color Yellow Urine Appearance Clear (Clear) Urine pH 5.5 (4.5-7.5) Ur Specific [place] 1.010 (1.000-1.030) Urine Protein Negative (Negative) Urine Glucose (UA) 2+ H (Negative) Urine Ketones Negative (Negative) Urine Blood Negative (Negative) Urine Nitrite Negative (Negative) Urine Bilirubin Negative (Negative) Urine Urobilinogen Negative (Negative) Ur Leukocyte Esterase 2+ H (Negative) Urine WBC (Auto) 10-30 H (0-5) /hpf Urine RBC (Auto) 0-4 (0-4) /hpf U Hyaline Cast (Auto) 1-5 (0-5) /lpf U Epithel Cells (Auto) >30 H (0-5) /lpf Urine Bacteria (Auto) Negative (Negative) Urine Opiates Screen Neg (Neg) Ur Methadone, Qual Neg (Neg) Urine Barbiturates Neg (Neg) Ur Phencyclidine (PCP) Neg (Neg) U Amphetamin/Meth Scrn Neg (Neg) MDMA (Ecstasy) Screen Neg (Neg) U Benzodiazepines Scrn Neg (Neg) Ur Cocaine Metabolite Neg (Neg) U Marijuana (THC) Screen Neg (Neg) Ethyl Alcohol mg/dL (<10.0) mg/dl SARS-CoV-2, RNA, NAAT (NEGATIVE) 06/15/22 06/15/22 06/15/22 Range/Units 15:30 15:07 15:07 WBC 10.44 (4.8-10.8) K/ul RBC 4.57 (3.93-5.22) M/uL Hgb 13.1 (12.0-16.0) g/dl Hct 39.5 (34.1-44.9) % MCV 86.4 (80.0-100.0) fL MCH 28.7 (25.0-34.0) pg MCHC 33.2 (32.0-36.0) g/dL RDW Std Deviation 44.1 (36.4-46.3) fL RDW Coeff of Adphney 14.0 (11.5-14.5) % Plt Count 242 (130-400) K/uL MPV 10.2 (9.4-12.3) fL Immature Gran % (Auto) 0.4 % Neut % (Auto) 69.8 % Lymph % (Auto) 19.7 % [place] % (Auto) 8.4 % Eos % (Auto) 1.1 % Baso % (Auto) 0.6 % Neut # (Auto) 7.28 H (1.4-6.5) K/uL Lymph # (Auto) 2.06 (1.2-3.4) K/uL [place] # (Auto) 0.88 H (0.24-0.82) K/uL Eos # (Auto) 0.12 (0-0.50) K/uL Baso # (Auto) 0.06 (0-0.2) K/uL Immature Gran # (Auto) 0.04 H (0.00-0.02) K/uL VBG pH (7.36-7.41) VBG pCO2 (38-50) mmHg VBG pO2 mmHg VBG HCO3 mmol/L VBG O2 Saturation % VBG Base Excess mEq/L Sodium 133 L (136-145) mmol/L Potassium TNP Chloride 97 L (98-107) mmol/L Carbon Dioxide 24 (21-32) mmol/L Anion Gap 12 H (3-11) BUN 22 (6-23) mg/dl Creatinine 0.90 (0.6-1.2) mg/dl Est Cr Clr Drug Dosing 78.3 ml/min Est GFR ( Amer) 81.1 ml/min Est GFR (Non-Af Amer) 70.0 ml/min BUN/Creatinine Ratio 24.4 H (10-20) Glucose 286 H (70-99(Fasting)) mg/dl POC Glucose (70-99) mg/dl Calcium 9.0 (8.5-10.1) mg/dl Total Bilirubin 0.5 (0.2-1.0) mg/dl AST TNP ALT 25 (7-52) U/L Alkaline Phosphatase 62 (34-104) U/L Troponin I High Sens 29.5 H (0-14) pg/ml Total Protein 7.5 (6.0-8.3) gm/dl Albumin 4.3 (3.4-5.0) gm/dl Globulin 3.2 (2.5-4.0) gm/dl Albumin/Globulin Ratio 1.3 (0.9-2) Lipase 23 (11-82) U/L Urine Color Urine Appearance (Clear) Urine pH (4.5-7.5) Ur Specific [place] (1.000-1.030) Urine Protein (Negative) Urine Glucose (UA) (Negative) Urine Ketones (Negative) Urine Blood (Negative) Urine Nitrite (Negative) Urine Bilirubin (Negative) Urine Urobilinogen (Negative) Ur Leukocyte Esterase (Negative) Urine WBC (Auto) (0-5) /hpf Urine RBC (Auto) (0-4) /hpf U Hyaline Cast (Auto) (0-5) /lpf U Epithel Cells (Auto) (0-5) /lpf Urine Bacteria (Auto) (Negative) Urine Opiates Screen (Neg) Ur Methadone, Qual (Neg) Urine Barbiturates (Neg) Ur Phencyclidine (PCP) (Neg) U Amphetamin/Meth Scrn (Neg) MDMA (Ecstasy) Screen (Neg) U Benzodiazepines Scrn (Neg) Ur Cocaine Metabolite (Neg) U Marijuana (THC) Screen (Neg) Ethyl Alcohol mg/dL (<10.0) mg/dl SARS-CoV-2, RNA, NAAT NEGATIVE (NEGATIVE) 06/15/22 06/15/22 Range/Units 15:07 15:07 WBC (4.8-10.8) K/ul RBC (3.93-5.22) M/uL Hgb (12.0-16.0) g/dl Hct (34.1-44.9) % MCV (80.0-100.0) fL MCH (25.0-34.0) pg MCHC (32.0-36.0) g/dL RDW Std Deviation (36.4-46.3) fL RDW Coeff of Daphney (11.5-14.5) % Plt Count (130-400) K/uL MPV (9.4-12.3) fL Immature Gran % (Auto) % Neut % (Auto) % Lymph % (Auto) % [place] % (Auto) % Eos % (Auto) % Baso % (Auto) % Neut # (Auto) (1.4-6.5) K/uL Lymph # (Auto) (1.2-3.4) K/uL [place] # (Auto) (0.24-0.82) K/uL Eos # (Auto) (0-0.50) K/uL Baso # (Auto) (0-0.2) K/uL Immature Gran # (Auto) (0.00-0.02) K/uL VBG pH 7.41 (7.36-7.41) VBG pCO2 42 (38-50) mmHg VBG pO2 47 mmHg VBG HCO3 27 mmol/L VBG O2 Saturation 82.8 % VBG Base Excess 1.7 mEq/L Sodium (136-145) mmol/L Potassium Chloride (98-107) mmol/L Carbon Dioxide (21-32) mmol/L Anion Gap (3-11) BUN (6-23) mg/dl Creatinine (0.6-1.2) mg/dl Est Cr Clr Drug Dosing ml/min Est GFR ( Amer) ml/min Est GFR (Non-Af Amer) ml/min BUN/Creatinine Ratio (10-20) Glucose (70-99(Fasting)) mg/dl POC Glucose (70-99) mg/dl Calcium (8.5-10.1) mg/dl Total Bilirubin (0.2-1.0) mg/dl AST ALT (7-52) U/L Alkaline Phosphatase (34-104) U/L Troponin I High Sens (0-14) pg/ml Total Protein (6.0-8.3) gm/dl Albumin (3.4-5.0) gm/dl Globulin (2.5-4.0) gm/dl Albumin/Globulin Ratio (0.9-2) Lipase (11-82) U/L Urine Color Urine Appearance (Clear) Urine pH (4.5-7.5) Ur Specific [place] (1.000-1.030) Urine Protein (Negative) Urine Glucose (UA) (Negative) Urine Ketones (Negative) Urine Blood (Negative) Urine Nitrite (Negative) Urine Bilirubin (Negative) Urine Urobilinogen (Negative) Ur Leukocyte Esterase (Negative) Urine WBC (Auto) (0-5) /hpf Urine RBC (Auto) (0-4) /hpf U Hyaline Cast (Auto) (0-5) /lpf U Epithel Cells (Auto) (0-5) /lpf Urine Bacteria (Auto) (Negative) Urine Opiates Screen (Neg) Ur Methadone, Qual (Neg) Urine Barbiturates (Neg) Ur Phencyclidine (PCP) (Neg) U Amphetamin/Meth Scrn (Neg) MDMA (Ecstasy) Screen (Neg) U Benzodiazepines Scrn (Neg) Ur Cocaine Metabolite (Neg) U Marijuana (THC) Screen (Neg) Ethyl Alcohol mg/dL < 10.0 (<10.0) mg/dl SARS-CoV-2, RNA, NAAT (NEGATIVE) Medications Administered Current Inpatient Medications Acetaminophen (Acetaminophen 325 Mg Tab) 650 mg PO Q4H PRN PRN Reason: Pain or Fever Stop: 07/15/22 20:06 Amlodipine Besylate (Amlodipine Besylate 5 Mg Tab) 2.5 mg PO QPM WILLIAM Stop: 07/15/22 20:59 Last Admin: 06/15/22 21:56 Dose: 2.5 mg Aspirin (Aspirin 81 Mg Ectab) 81 mg PO QAM WILLIAM Stop: 07/16/22 08:59 Clonazepam (Clonazepam 0.5 Mg Tab) 0.5 mg PO BID PRN PRN Reason: Anxiety Stop: 07/15/22 20:06 Last Admin: 06/15/22 21:59 Dose: 0.5 mg Dextrose (Dextrose 50% 50 Ml Syringe) 25 - 50 ml IV UD PRN; Protocol PRN Reason: Hypoglycemia Protocol Stop: 07/15/22 20:06 Duloxetine HCl (Duloxetine Hcl 30 Mg Cap) 30 mg PO DAILY [facility] Stop: 07/16/22 08:59 Enoxaparin Sodium (Enoxaparin Inj 40 Mg/0.4 Ml Syr) 40 mg SQ QAM [facility] Stop: 07/16/22 08:59 Gabapentin (Gabapentin 100 Mg Cap) 100 mg PO TID [facility] Stop: 07/15/22 20:59 Last Admin: 06/15/22 21:56 Dose: 100 mg Glucagon (Glucagon For Inj 1 Mg Vial) 1 mg SQ UD PRN; Protocol PRN Reason: Hypoglycemia Protocol Stop: 07/15/22 20:06 Glucose (Glucose 40% Gel 15 Gm Tube) 15 - 30 gm PO UD PRN; Protocol PRN Reason: Hypoglycemia Protocol Stop: 07/15/22 20:06 Glucose (Glucose 10 Tab/Tube) 4 - 8 tab PO UD PRN; Protocol PRN Reason: Hypoglycemia Treatment Stop: 07/15/22 20:06 Insulin Aspart (Insulin Aspart Per Unit) 0 units SC ACHS [facility] Stop: 07/15/22 20:59 Last Admin: 06/15/22 21:52 Dose: 9 units Insulin Glargine (Lantus Per Unit Charge) 30 units SQ HS [facility] Stop: 07/15/22 20:59 Last Admin: 06/15/22 21:52 Dose: 30 units Levothyroxine Sodium (Levothyroxine Sodium 150 Mcg Tablet) 150 mcg PO DAILYBB [facility] Stop: 07/16/22 06:29 Last Admin: 06/16/22 06:34 Dose: 150 mcg Metoprolol Succinate (Metoprolol Succ 25mg Ext Rel Tab) 25 mg PO QAM [facility] Stop: 07/16/22 08:59 Miscellaneous (Carbohydrates For Hypoglycemia ) 15 - 30 gm PO UD PRN PRN Reason: Hypoglycemia Protocol Stop: 07/15/22 20:06 Miscellaneous Information (Pharmacy Glycemic Mgmt Consult) 1 each N/A UD PRN PRN Reason: Consult Stop: 07/15/22 20:06 Ondansetron HCl (Ondansetron Inj 2 Mg/Ml 2 Ml Vial) 4 mg IV Q6H PRN PRN Reason: Nausea Stop: 07/15/22 20:06 Pantoprazole Sodium (Pantoprazole 40 Mg Tab) 40 mg PO BID [facility] Stop: 07/15/22 20:59 Last Admin: 06/15/22 21:57 Dose: 40 mg Rosuvastatin Calcium (Rosuvastatin Calcium 20 Mg Tab) 40 mg PO QAM [facility] Stop: 07/16/22 08:59 Trazodone HCl (Trazodone Hcl 50 Mg Tab) 50 mg PO HS [facility] Stop: 07/15/22 20:59 Last Admin: 06/15/22 21:57 Dose: 50 mg (1) Diabetes mellitus, type II Diabetes mellitus complication status: with hyperglycemia Diabetes mellitus 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
[2022-06-16] MEDS: GABAPENTIN 100 MG CAP PO SCH ×3 (08:20→20:57)
[2022-06-16] MEDS: PANTOprazole 40 MG TAB PO SCH ×2 (08:20→20:58)
[2022-06-16] MEDS: ENOXAPARIN INJ 40 MG/0.4 ML SYR SQ SCH (08:20)
[2022-06-16] MEDS: ROSUVASTATIN CALCIUM 20 MG TAB PO SCH (08:21)
[2022-06-16] MEDS: DULoxetine HCL 30 MG CAP PO SCH (08:21)
[2022-06-16] MEDS: ASPIRIN 81 MG ECTAB PO SCH (08:21)
[2022-06-16] MEDS: METOPROLOL SUCC 25MG EXT REL TAB PO SCH (08:21)
[2022-06-16 08:39] LABS: Hematocrit (blood only) 40.3 % (34.1-44.9); Hemoglobin 12.9 g/dl (12.0-16.0); Mean Corpuscular Hemoglobin 28.2 pg (25.0-34.0); Mean Corpuscular Volume 88.2 fL (80.0-100.0); Mean Platelet Volume 9.8 fL (9.4-12.3); Platelet Count 237 K/uL (130-400); RDW Coefficient of Variation 14.3 % (11.5-14.5); RDW Standard Deviation 45.9 fL (36.4-46.3); Red Blood Count 4.57 M/uL (3.93-5.22); White Blood Count 9.29 K/ul (4.8-10.8)
[2022-06-16] MEDS: INSULIN ASPART PER UNIT SC SCH ×4 (08:53→20:56)
[2022-06-16 09:02] LABS: BUN Creatinine Ratio 15.6 (10-20); Calcium 9.3 mg/dl (8.5-10.1); Chol HDL Ratio 2.6 (0-5); Creatinine Clr Calc Pharmacy 72.9 ml/min; Est GFR (Non-African American) 64.7 ml/min; Potassium 4.3 mmol/L (3.5-5.1)
--- NOTE | 2022-06-16 11:23 | Pharmacy Report ---
Pharmacy Glycemic Short Note 2 - Date of Service June 16, 2022 - Glycemic Short BSG Results (Last 24 hours): 06/15/22 06/15/22 06/16/22 15:07 20:27 07:22 Glucose 286 H POC Glucose 201 H 178 H 06/16/22 07:49 Glucose 183 H POC Glucose OUTPATIENT ANTIDIABETIC REGIMEN: * Trulicity * Metformin * Omnipod * HbA1c 11.9% on 04/25/22 ASSESSMENT: * 57 yo M w recent admission in April, admitted w syncope. * Will resume regimen similar to previous admission, except with slightly tighter CHO ratio as post-prandial BSG's were slightly elevated on previous regimen PLAN FOR INPATIENT GLYCEMIC CONTROL: * Hold outpatient oral diabetes medications * Basal insulin * Lantus 30 units SQ HS * Bolus insulin * NovoLog per scale ACHS or Q6hrs while NPO * Goal Range: Low 110 mg/dL - High 140 mg/dL * Correction Factor: 15 mg/dL/unit * Nutritional / Prandial insulin per carb ratio of 1 unit per 4 grams CHO consumed
--- NOTE | 2022-06-16 11:27 | Cardiology Consultation ---
Date of Consultation June 16, 2022 Assessment & Plan (1) AMS (altered mental status): (2) Loss of consciousness: (3) Chest pain: (4) Elevated troponin: (5) CAD (coronary artery disease): Plan 57-year-old female admitted following an episode of witnessed altered consciousness/possible loss of consciousness with associated urinary incontinence, undefined. Cardiac work-up thus far has been unyielding with minimal, possibly chronic, elevation of high sensitivity troponin I. EKG and symptom presentation are not consistent with acute coronary syndrome. Continuous telemetry monitoring without bradyarrhythmias or tachyarrhythmias thus far with recent ZIO monitoring obtained and reassuring as noted. Recommend resting echocardiography and continuous telemetry monitoring while assessing for noncardiac causes. Blood cultures requested. PE appears unlikely though is in the differential. Further recommendations pending the above, evaluation by Dr. Porras Supervising Physician Co-Signing Physician Notes Supervising Physician Attestation: I have personally performed a history and physical examination on the patient. I agree with the physician loan assistant's findings and plan as documented with the following additions. Subjective: Patient eating her evening meal at the time of my assessment. No acute complaints but did have a waxing and waning "stabbing "sensation in her chest when she was trying to sleep last night. Exam: Cardiovascular regular rhythm, no murmurs, no edema Data: EKG 06/15/2022 normal sinus rhythm, right bundle branch block, age-indeterminate inferior infarct pattern, unchanged compared to 04/09/2022 Mild, flat elevation in high-sensitivity troponin x4 measurements Echocardiogram reviewed, normal LV ejection fraction, 55 to 60%. With administration of ultrasound contrast, the right ventricle appears at least mildly dilated with mild to moderate diffuse right ventricular hypokinesis. Assessment and Plan: Incident above Given history of right toe/foot injury, and right ventricular hypokinesis as well as stabbing sensation in her chest, different from previous anginal equivalent, proceed with CT angiogram of the chest rule out PE. DVT prophylaxis: Enoxaparin 40 mg subcutaneous daily Madi Porras, DO History of Present Illness Reason for Consultation: Chest pain, syncope Requesting Physician: Mario Alberto Attending Physician: Nik History of Present Illness Ms. Juany Resendez is a 57-year-old female seen at the request of Dr. Llanes, evaluation of chest pain, syncope. History is somewhat difficult to discern. 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 She notes a weird feeling that is difficult for her to describe, difficulty getting her eyes to focus, sharp pinching left lower chest/left upper quadrant discomfort. She notes one moment speaking to her friend and the next she awoke in the emergency room. She denies biting her tongue. She was incontinent of urine. No reported seizure type activity. As per EMS documentation, 911 was summoned after patient felt near syncopal, felt out of the chair to the ground, and had difficulty breathing. Upon EMS arrival patient was lying on the ground, awoken by verbal stimuli, confused. Glucose was 259. Systolic blood pressure in the 130s. Heart rate in the 80s and regular. SPO2 99 to 100%. Respiratory rate 16. EKG on presentation to the ER revealed normal sinus rhythm at 87 bpm with a chronic right bundle branch block, possible old inferior infarct, unchanged compared to prior tracings. QTc 474 ms. High-sensitivity troponin I minimally elevated, similar findings in April 2022. White blood cell count was normal. H&H were normal at 13.1 and 39.5. Chemistry panel revealed mild hyponatremia with sodium of 133. Glucose was 286. CT scan of the head and cervical spine showed no acute issues. Chest x-ray showed no acute cardiopulmonary findings on plain film evaluation but was limited by decreased inspiratory effort. Continuous telemetry monitoring since admission has revealed sinus rhythm in the 70s and 80s. Recent outpatient ZIO monitor was obtained April 08, 2022 to April 14, 2022, demonstrating sinus as a predominant rhythm with an average heart rate of 79 bpm. Minimum heart rate was 62 bpm. Maximum heart rate was 146 bpm. One asymptomatic episode of SVT was observed lasting 12.8 seconds. Rare atrial and ventricular ectopy observed. Symptoms noted to correlate with sinus rhythm. Patient with a history of coronary artery disease. Abnormal dobutamine stress testing led to cardiac catheterization back in December 2015 revealing branch vessel disease, diabetic coronary disease with distal narrowing of the LAD, left circumflex, and posterolateral RCA branch. Catheterization last on March 19, 2022 (obtained due to complaints of exertional chest pain, increased exertional dyspnea, reduced exercise tolerance, abnormal Lexiscan nuclear stress testing on February 18, 2022 (technically limited, positive for myocardial infarction with mild inferior jamir-infarct ischemia encompassing 5% of the total myocardium)) revealed a chronic right coronary artery occlusion with collateral filling via left anatomy. Additional issues include chronic right bundle branch block, hypertension, dyslipidemia, type 2 diabetes mellitus, cervical radiculopathy status post anterior cervical disc fusion, right vocal cord paresis Past Medical and Surgical History ASCVD Chronic right bundle branch block Hypertension Dyslipidemia Type 2 diabetes mellitus with retinopathy, neuropathy, gastroparesis History of thyroid cancer, postsurgical hypothyroidism Cervical radiculopathy Major depression Generalized anxiety Obesity Cholecystectomy Cataract extraction Colonoscopy with polypectomy Status post partial amputation of the left great toe due to osteomyelitis Traumatic wound to the right great toe in May, with associated laceration and open fracture, followed by the [facility] Current right great toe injury and infection, treated by the wound clinic Family History: Father with an SC at 60. Mother at 75 with ovarian cancer. Two brothers with diabetes mellitus. Two children without cardiac issues. Social History: Nonsmoker. No alcohol. No illegal drug use. . Two children. Disabled. Lives alone. Complete Review of Systems is as stated above, negative, or noncontributory Allergies Allergy/AdvReac Type Severity Reaction Status Date / Time adhesive tape Allergy Mild PER PT Verified 06/15/22 18:01 "GLUE ON TAPE"--SKIN IRRITATION Home Medications Medication Instructions Recorded Confirmed Type aspirin 81 mg tablet,delayed 81 mg PO QAM 02/18/19 06/15/22 History release omeprazole 20 mg tablet,delayed 20 mg PO BID 02/18/19 06/15/22 History release amlodipine 2.5 mg tablet 2.5 mg PO QPM 03/27/19 06/15/22 History gabapentin 100 mg capsule 100 mg PO TID 07/21/19 06/15/22 History metoprolol succinate 25 mg 25 mg PO QAM 05/24/21 06/15/22 History tablet,extended release 24 hr rosuvastatin 40 mg tablet 40 mg PO QAM 05/24/21 06/15/22 History clonazepam 0.5 mg tablet 0.5 mg PO BID PRN Anxiety 12/30/21 06/15/22 History insulin aspart U-100 100 unit/mL 200 unit subcut UD 12/30/21 06/15/22 History subcutaneous solution insulin pump cart,cont inf,BT 12/30/21 06/15/22 History (Omnipod Dash Pods (Gen 4) subcutaneous cartridge) levothyroxine 150 mcg tablet 150 mcg PO QAM 12/30/21 06/15/22 History (Synthroid) turmeric root extract 500 mg 500 mg PO QAM 12/30/21 06/15/22 History capsule dulaglutide 1.5 mg/0.5 mL 1.5 mg subcut WK 03/18/22 06/15/22 History subcutaneous pen injector (Trulicity) metformin 1,000 mg tablet,extended 1,000 mg PO BIDWMEAL #0 tabs 04/28/22 06/15/22 Rx release 24hr trazodone 50 mg tablet 50 mg PO HS 05/29/22 06/15/22 History duloxetine 30 mg capsule,delayed 30 mg PO DAILY 06/15/22 06/15/22 History release Patient History Medical History Amputation of toe Anxiety Benign neoplasm of vulva of clitoris CAD (coronary artery disease) Diabetes mellitus, type II insulin pump GERD (gastroesophageal reflux disease) History of thyroid cancer with surgical intervention Hyperglycemia Hypertension Myocardial Infarction 12 YEARS AGO (FOLLOWED BY DR. DODSON) VERBALIZED NO HEART CATH DONE Peripheral neuropathy Restless leg syndrome Schwannoma REMOVED BY DR. GROSSMAN MARCH 2018 Stroke 7 YEARS AGO (LEFT SIDE WEAKNESS/LEFT EYE DROOPING) > follows with a neurologist unsure of name Suicidal ideation resolved per pt Tumor LEFT FEMUR (BENIGN) 2 TUMORS REMOVED > several yrs ago Vulvitis resolved per pt Surgical History Family history of reaction to anesthesia BROTHER-NAUSEA H/O blepharoplasty RT/LEFT History of anesthesia reaction SLOW TO WAKE UP History of cardiac cath March 2022, [facility] > no stents/ just check up per pt History of cholecystectomy History of colonoscopy History of esophagogastroduodenoscopy (EGD) History of neck surgery anterior cervical discectomy with bilateral foraminotomies C6-7. #2 anterior cervical arthrodesis C6-7. #3 placement of titanium 9.9 mm cage filled with DBM and C6-7. #4 occasional hernandez plate and screws across C6-7 >> ROM no limitations History of surgery robot-assist left thorascopic resection of schwannoma from left upper mediastinum. 03/16/2018. SANG. A line. No issues. History of thyroidectomy, total History of tonsillectomy History of tooth extraction S/P LASIK surgery of both eyes Status post hysteroscopic ablation of endometrium Family History Grandmother (Maternal) Family history of diabetes mellitus Mother Ovarian cancer Father Myocardial infarction Social History Smoking Status: Never smoker Second Hand Exposure: Yes; Do You Dip or Chew Tobacco: No; Tobacco Cessation Education Requested by Patient: No Hx Alcohol Use: No Hx Substance Use: No Preferred Language: Polish Communication Ability: Effective Head Of Housekeeping Required: No Beliefs That Will Affect Care: Jewish Jewish Beliefs: Druze marital status: / Current Living Situation: Alone How many Children do You have: 2 Other Information That Helps Us Care for You: No Feels Safe at Home: Yes Safety Concerns: Feels Safe At This Time Assistive Devices: None Physical Exam Physical Exam: General: A&Ox3. NAD. HENT: Normocephalic. Atraumatic. Mucous membranes are somewhat dry. Eyes: PER. Conjunctiva pink, sclera clear. Neck: Multiple surgical scars. No carotid bruits. No JVD. No HJR. Chest: There is reproducible chest wall tenderness that patient states is different than the prior sharp pain present prior to presentation. Heart: RRR. Soft systolic murmur. No rub. No gallop. Lungs: Clear to auscultation. Abdomen: +BS. Soft. Nontender. No masses or organomegaly. Extremities: Partial amputation of the left great toe, healed. Drainage from the right great toe, not overtly infected by visualization. No clubbing, cyanosis, or edema. Limited neurological examination is without focal deficits. Pulses: radial=2/4, posterior tibial=2/4. Results & Data ([facility]) Vital Signs (Past 12 Hours) Vital Signs Temp Pulse Pulse Resp BP BP Pulse Ox 06/16/22 07:30 73 06/16/22 08:19 103/65 06/16/22 07:22 36.9 C 76 19 99/61 L 93 06/16/22 02:41 36.6 C 72 18 101/59 L 94 O2 Del Method 06/16/22 07:30 06/16/22 08:19 06/16/22 07:22 Room Air 06/16/22 02:41 Room Air Laboratory Results Cardiac Enzymes 06/15/22 06/15/22 06/15/22 Range/Units 15:07 16:11 17:45 AST TNP 22 Troponin I High Sens 29.5 H 30.4 H (0-14) pg/ml 06/15/22 Range/Units 22:58 AST Troponin I High Sens 28.2 H (0-14) pg/ml Lipids 06/16/22 Range/Units 07:49 Triglycerides 146 (0-150) mg/dl Cholesterol 110 (0-200) mg/dl HDL Cholesterol 43 mg/dl Cholesterol/HDL Ratio 2.6 (0-5) CBC 06/15/22 06/16/22 Range/Units 15:07 07:49 WBC 10.44 9.29 (4.8-10.8) K/ul RBC 4.57 4.57 (3.93-5.22) M/uL Hgb 13.1 12.9 (12.0-16.0) g/dl Hct 39.5 40.3 (34.1-44.9) % Plt Count 242 237 (130-400) K/uL Neut # (Auto) 7.28 H (1.4-6.5) K/uL Lymph # (Auto) 2.06 (1.2-3.4) K/uL [place] # (Auto) 0.88 H (0.24-0.82) K/uL Eos # (Auto) 0.12 (0-0.50) K/uL Baso # (Auto) 0.06 (0-0.2) K/uL Comprehensive Metabolic Panel 06/15/22 06/15/22 06/16/22 Range/Units 15:07 16:11 07:49 Sodium 133 L 139 (136-145) mmol/L Potassium TNP 4.5 4.3 Chloride 97 L 101 (98-107) mmol/L Carbon Dioxide 24 30 (21-32) mmol/L BUN 22 15 (6-23) mg/dl Creatinine 0.90 0.96 (0.6-1.2) mg/dl Glucose 286 H 183 H (70-99(Fasting)) mg/dl Calcium 9.0 9.3 (8.5-10.1) mg/dl AST TNP 22 ALT 25 (7-52) U/L Alkaline Phosphatase 62 (34-104) U/L Total Protein 7.5 (6.0-8.3) gm/dl Albumin 4.3 (3.4-5.0) gm/dl Intake and Output 06/15/22 06/16/22 06/16/22 22:59 06:59 14:59 Intake Total 150 / 250 100 / 250 Balance 150 / 250 100 / 250 Intake: Oral 150 / 250 100 / 250 Other: # Unmeasured Voids 2 Weight 88 kg 87 kg Weight Measurement Method Built in [facility]
--- NOTE | 2022-06-16 18:01 | XRay Report ---
XR toe(s) RT min 2V CLINICAL HISTORY: trauma to toe/wound COMPARISON: Right first toe radiographs April 09, 2022. FINDINGS: Alignment of the right first toe is anatomic. No acute fracture is noted. There is no radi ographic evidence for acute osteomyelitis. Moderate osteoarthritis of the right first metatarsophalan geal joint is noted. IMPRESSION: No acute fracture or radiographic evidence for acute osteomyelitis within the right first toe. ACT 112: Negative or not required by law. Electronically signed by: Erik Roman M.D. 06/16/2022 5:59 PM
[2022-06-16] MEDS ORDERED: OPTIRAY 320 125ml IV ONE (18:17)
--- NOTE | 2022-06-16 18:35 | CT Scan Report ---
CT ANGIOGRAPHY OF THE CHEST, PULMONARY EMBOLUS PROTOCOL CLINICAL HISTORY: Atypical chest pain. Altered mental status. Evaluate for pulmonary embolus. COMPARISON STUDY: Chest CT August 04, 2019. Chest radiograph June 15, 2022. TECHNIQUE: Following IV administration of 117 mL of Optiray, helical axial images of the chest were o btained utilizing the pulmonary embolus protocol. Maximal intensity projections and sagittal and cor onal reformats were viewed on an independent 3D workstation. IV contrast was administered without co mplication. Automated exposure control was utilized for the study. A dose lowering technique was ut ilized adhering to the principles of ALARA. CT DOSE: 624.93 mGy.cm FINDINGS: No pulmonary emboli are identified. There is no thoracic aortic dissection. Size of the he art is normal. There is no pericardial effusion. No enlarged axillary, mediastinal or hilar lymph nod es are present. There is no consolidation to suggest pneumonia. A few small pulmonary nodules are unc hanged since CT of March 29, 2019. These are benign. There are no suspicious pulmonary nodules. No cons olidation to suggest pneumonia. Linear and ground glass opacities reflect atelectasis. Gallbladder is surgically absent. IMPRESSION: 1. No pulmonary emboli identified. 2. No acute intrathoracic findings. ACT 112: Negative or not required by law. Electronically signed by: Erik Roman M.D. 06/16/2022 6:33 PM
[2022-06-16] MEDS: LANTUS PER UNIT CHARGE SQ SCH (20:56)
[2022-06-16] MEDS: traZODone HCL 50 MG TAB PO SCH (20:57)
[2022-06-16] MEDS: amLODIPine BESYLATE 5 MG TAB PO SCH (20:58)
[2022-06-16] MEDS: clonazePAM 0.5 MG TAB PO PRN (21:03)
[2022-06-17] MEDS: LEVOTHYROXINE SODIUM 150 MCG TABLET PO SCH (06:03)
[2022-06-17 06:38] LABS: Hematocrit (blood only) 39.1 % (34.1-44.9); Hemoglobin 12.5 g/dl (12.0-16.0); Mean Corpuscular Hemoglobin 28.1 pg (25.0-34.0); Mean Corpuscular Volume 87.9 fL (80.0-100.0); Mean Platelet Volume 9.8 fL (9.4-12.3); Platelet Count 226 K/uL (130-400); Red Blood Count 4.45 M/uL (3.93-5.22); White Blood Count 9.52 K/ul (4.8-10.8)
[2022-06-17 06:56] LABS: Anion Gap 7 (3-11); BUN Creatinine Ratio 19.4 (10-20); Blood Urea Nitrogen 20 mg/dl (6-23); C Reactive Protein < 0.50 mg/dl (0-0.5); Calcium 9.4 mg/dl (8.5-10.1); Carbon Dioxide 31 mmol/L (21-32); Chloride 100 mmol/L (98-107); Creatinine Clr Calc Pharmacy 67.8 ml/min; Est GFR (African American) 68.9 ml/min; Est GFR (Non-African American) 59.5 ml/min; Glucose 171 mg/dl (70-99(Fasting)); Magnesium 1.9 mg/dl (1.7-2.4); Phosphorus 5.1 mg/dl (2.5-4.9); Sodium 138 mmol/L (136-145)
[2022-06-17] MEDS: INSULIN ASPART PER UNIT SC SCH ×4 (08:26→20:59)
[2022-06-17] MEDS: GABAPENTIN 100 MG CAP PO SCH ×3 (08:27→20:05)
[2022-06-17] MEDS: PANTOprazole 40 MG TAB PO SCH ×2 (08:27→20:05)
[2022-06-17] MEDS: ASPIRIN 81 MG ECTAB PO SCH (08:27)
[2022-06-17] MEDS: DULoxetine HCL 30 MG CAP PO SCH (08:27)
[2022-06-17] MEDS: METOPROLOL SUCC 25MG EXT REL TAB PO SCH (08:27)
[2022-06-17] MEDS: ROSUVASTATIN CALCIUM 20 MG TAB PO SCH (08:27)
[2022-06-17] MEDS: ENOXAPARIN INJ 40 MG/0.4 ML SYR SQ SCH (08:28)
--- NOTE | 2022-06-17 08:38 | Pharmacy Report ---
Pharmacy Glycemic Short Note 2 - Date of Service June 17, 2022 - Glycemic Short BSG Results (Last 24 hours): 06/16/22 06/16/22 06/16/22 07:49 11:26 16:21 Glucose 183 H POC Glucose 183 H 133 H 06/16/22 06/17/22 06/17/22 20:46 05:57 07:06 Glucose 171 H POC Glucose 169 H 171 H OUTPATIENT ANTIDIABETIC REGIMEN: * Trulicity 1.5 mg SC every Wednesday * Metformin 1000 mg PO BIDM * Omnipod: * Basal: 3.5 units/hr (84 units/day) * Correction Factor: 7 * Carb Ratio: 4 * HbA1c = 11.9% (04/25/22) ASSESSMENT: 06/17: * Juany received 54 units of insulin yesterday - 30 units basal + 24 units bolus. BSGs acceptable: [phone] mg/dL. * No improvement in fasting BSG today: 171 mg/dL. Will increase basal by 20% today. * No change to Novolog. 06/16: * 57 yo M w recent admission in April, admitted w syncope. * Will resume regimen similar to previous admission, except with slightly tighter CHO ratio as post-prandial BSG's were slightly elevated on previous regimen PLAN FOR INPATIENT GLYCEMIC CONTROL: * Hold outpatient oral diabetes medications * Basal insulin * Lantus 36 units SC HS * Bolus insulin * NovoLog per scale ACHS or Q6hrs while NPO * Goal Range: Low 110 mg/dL - High 140 mg/dL * Correction Factor: 15 mg/dL/unit * Nutritional / Prandial insulin per carb ratio of 1 unit per 4 grams CHO consumed
--- NOTE | 2022-06-17 10:16 | Cardiology Progress Note ---
Date of Service June 17, 2022 Assessment & Plan (1) AMS (altered mental status): (2) Loss of consciousness: (3) Chest pain: (4) Elevated troponin: (5) CAD (coronary artery disease): Plan 57-year-old female admitted following an episode of witnessed altered consciousness/possible loss of consciousness with associated urinary incontinence, undefined and atypical chest pain. Cardiac work-up thus far has been negative. High sensitivity troponin I noted to be minimally elevated and flat, possibly chronic, unchanged from April, without any other evidence to suggest an acute coronary syndrome. Patient with known codominant coronary anatomy with chronic total occlusion mid right coronary artery with distal filling via [id number] collaterals, thin mid and apical left anterior descending with diffuse atherosclerosis via March 19, 2022 cardiac catheterization. Continuous telemetry monitoring without arrhythmias. Recent outpatient ZIO monitoring obtained and reassuring. No further cardiac workup planned at this time. Continue the current cardiac regimen while exploring no ncardiac etiologies to complaints. Admission and Anticipated Discharge Date Admission Date: June 15, 2022 Supervising Physician Co-Signing Physician Notes Supervising Physician Attestation: I have personally performed a history and physical examination on the patient. I agree with the physician res habilitation assistant's findings and plan as documented with the following additions. Subjective: Patient without complaint. Telemetry without arrhythmia. Exam: Lungs clear to auscultation, no edema, right great toe wound noted, bandage in place Data: CTA negative for pulmonary embolism 06/16/2022 Assessment and Plan: As noted above DVT prophylaxis: Subcutaneous Lovenox Madi Porras DO Subjective Patient seen and examined. Chart, medications, and telemetry reviewed. No further chest pain. No palpitations. No resting shortness of breath, cough, orthopnea, PND, or peripheral edema. High-sensitivity troponin high 29.5 -> 30.4 -> 28.2 pg/mL this admission, essentially the same as when in the ER in April. Telemetry: Sinus in the 60s to 80s. No arrhythmias. June 16, 2022 TTE Interpretation Summary ([facility], Dr. Porras): The study is technically difficult, but adequate for the evaluation of the referral indication. There is mild concentric LVH. The left ventricular wall motion is normal. The left ventricular ejection fraction is 55 to 60%. The RV is mildly dilated. RV systolic function is moderately reduced. There is mild aortic valve sclerosis without significant stenosis. Grade 1 diastolic dysfunction. Chest CTA negative for PE or acute intrathoracic findings on June 16, 2022. Physical Exam Physical Exam: General: A&Ox3. NAD. HENT: Normocephalic. Atraumatic. Eyes: PER. Conjunctiva pink, sclera clear. Neck: Multiple surgical scars. No carotid bruits. No JVD. Chest: Reproducible chest wall tenderness Heart: RRR. Grade II/ systolic murmur. No rub. No gallop. Lungs: Clear to auscultation. Abdomen: +BS. Soft. Nontender. No masses or organomegaly. Extremities: Partial amputation of the left great toe, healed. The right great toe is dressed (not removed). No clubbing, cyanosis, or edema. Limited neurological examination is without focal deficits. Pulses: radial=2/4, posterior tibial=2/4. Results & Data ([facility]) Vital Signs (Past 12 Hours) Vital Signs Temp Pulse Pulse Resp BP BP Pulse Ox 06/17/22 09:00 06/17/22 07:45 66 06/17/22 07:15 36.9 C 69 17 106/66 93 06/17/22 03:31 36.4 C L 69 18 117/70 94 06/16/22 23:45 36.6 C 72 16 101/64 95 O2 Del Method 06/17/22 09:00 Room Air 06/17/22 07:45 06/17/22 07:15 Room Air 06/17/22 03:31 Room Air 06/16/22 23:45 Room Air Laboratory Results CBC 06/17/22 Range/Units 05:57 WBC 9.52 (4.8-10.8) K/ul RBC 4.45 (3.93-5.22) M/uL Hgb 12.5 (12.0-16.0) g/dl Hct 39.1 (34.1-44.9) % Plt Count 226 (130-400) K/uL Comprehensive Metabolic Panel 06/17/22 Range/Units 05:57 Sodium 138 (136-145) mmol/L Potassium 4.0 (3.5-5.1) mmol/L Chloride 100 (98-107) mmol/L Carbon Dioxide 31 (21-32) mmol/L BUN 20 (6-23) mg/dl Creatinine 1.03 (0.6-1.2) mg/dl Glucose 171 H (70-99(Fasting)) mg/dl Calcium 9.4 (8.5-10.1) mg/dl Intake and Output 06/16/22 06/17/22 06/17/22 22:59 06:59 14:59 Intake Total 300 / 840 Balance 300 / 840 Intake: Oral 300 / 840 Other: Weight 87 kg 86.7 kg Weight Measurement Method Standing Scale
[2022-06-17] MEDS ORDERED: VANCOMYCIN CONSULT ACTIVE PRN (15:15)
[2022-06-17] MEDS ORDERED: VANCOMYCIN HCL 1,250 MG in SODIUM CHLORIDE 0.9% 250 ML IV SCH (15:15)
[2022-06-17] MEDS ORDERED: PIPERACILLIN/TAZOBACTAM 4.5 GM in DEXTROSE 5% 100 ML IV SCH (15:30)
--- NOTE | 2022-06-17 15:43 | Hospitalist Progress Note ---
Date of Service June 17, 2022 Assessment & Plan (1) Syncope: (2) Chest pain: (3) Elevated troponin: (4) Diabetes mellitus, type II: (5) Diabetic infection of right foot: Plan Patient is a 57-year-old female with past medical history of type 2 diabetes mellitus, postsurgical hypothyroidism, generalized anxiety disorder, diabetic neuropathy, hyperlipidemia, coronary artery disease, chronic RBBB presents to the ED with complaint of chest pain and syncopal episode. 1) Syncopal episode ( ?Cardiogenic) 2) Chest pain 3) Elevated Troponin -Chest pain followed by syncopal episode sitting position [id number] on admission, repeat essentially unchanged EKGsinus rhythm, right bundle branch block; similar to last admission's EKG Echo in 02/2022EF of 55 to 59%; grade 1 diastolic dysfunction Left heart cath in 03/2022 chronic chronic right coronary occlusion with collaterals fill via left anatomy CT head and cervicalno acute abnormality Continue on aspirin, rosuvastatin and metoprolol. Cardiology work-up negative to date and she is improved. No evidence of acute coronary syndrome. Telemetry does not reveal evidence of arrhythmias and recent outpatient ZIO monitoring was obtained and normal. No further cardiac work-up planned. Encourage ambulation and will obtain PT and OT if needed. 4) DMII with hyperglycemia Patient on insulin pump. - A1c is 12.6% in 04/2022 -glycemic pharmacy consulted -inpatient BSG at goal, continues on basal bolus insulin as inpatient. 5) Diabetic R toe wound -History of osteomyelitis on left toe -Patient had a trauma to the right toe, and was followed by [place] wound clinic -She was discharged by the wound clinic two weeks ago, however continues to have wound there, and also some greenish discharge reported two days ago. -Blood cultures pending -ESR, CRP ordered, x-ray of right toe ordered showing cortical irregularity concerning for osteo -Ortho and ID consulted for further investigation/recs -started on broad spectrum antibiotics with Vanc and zosyn Chronic, stable Conditions: Depression/NBA- Continue duloxetine, klonopin as needed Diabetic neuropathy- continue gabapentin Code status- DNR/DNI DVT- Lovenox Dispo-to home after workup complete for her toe. Mona Camargo DO [facility] Hospitalist Admission and Anticipated Discharge Date Admission Date: June 15, 2022 Subjective 57 yo F presents after syncopal episode during group therapy with prodrome. chest pain resolved denies SOB feeling better but hasn't walked around today reports greenish discharge from right toe wound in the last couple of days. There is redness and a wound on this toe Denies fevers and chills. h/o osteo on the left toe s/p amputation last year. toe xr with cortical irregularity suggestive of osteo Review of Systems Review of Systems: All systems were reviewed and negative except as indicated above. Physical Exam Physical Exam: CONSTITUTIONAL: WNWD, vitals as above, generally well- appearing, NAD EYES: normal conjunctivae, no scleral icterus ENT: external ear and nose normal, MMM NECK: trachea midline RESPIRATORY: clear to auscultation bilaterally, no crackles, rales or wheezes, normal respiratory effort CARDIOVASCULAR: regular rate and rhythm, S1 and 2 heard without murmurs, gallops or rubs, no JVD, no peripheral edema CHEST: inspection of chest was normal GASTROINTESTINAL: soft, nontender, ND, no guarding MUSCULOSKELETAL: strength 5/5 throughout, head is normocephalic and atraumatic SKIN: warm and dry, erythematous wound around the nailbed of the first toe on the right foot. No spreading erythema or other signs of cellulitis. NEUROLOGIC: CN 2-12 grossly intact, no sensory deficit, normal cognition, normal speech, no tremor PSYCHIATRIC: alert cooperative and oriented to person, place and time. Euthymic mood, makes good eye contact, language grossly intact, recent and rem ote memory grossly intact. Results & Data Results & Data ([facility]) Vital Signs (Past 12 Hours) Vital Signs Temp Pulse Pulse Resp BP Pulse Ox O2 Del Method 06/17/22 14:56 72 06/17/22 12:38 36.6 C 75 18 117/72 96 Room Air 06/17/22 09:00 Room Air 06/17/22 07:45 66 06/17/22 07:15 36.9 C 69 17 106/66 93 Room Air Laboratory Results Short CBC 06/17/22 Range/Units 05:57 WBC 9.52 (4.8-10.8) K/ul Hgb 12.5 (12.0-16.0) g/dl Hct 39.1 (34.1-44.9) % Plt Count 226 (130-400) K/uL BMP 06/17/22 05:57 Sodium 138 Potassium 4.0 Chloride 100 Carbon Dioxide 31 BUN 20 Creatinine 1.03 Glucose 171 H Calcium 9.4 Medications Administered Current Inpatient Medications Acetaminophen (Acetaminophen 325 Mg Tab) 650 mg PO Q4H PRN PRN Reason: Pain or Fever Stop: 07/15/22 20:06 Last Admin: 06/16/22 08:59 Dose: 650 mg Amlodipine Besylate (Amlodipine Besylate 5 Mg Tab) 2.5 mg PO QPM WILLIAM Stop: 07/15/22 20:59 Last Admin: 06/16/22 20:58 Dose: 2.5 mg Aspirin (Aspirin 81 Mg Ectab) 81 mg PO QAM WILLIAM Stop: 07/16/22 08:59 Last Admin: 06/17/22 08:27 Dose: 81 mg Clonazepam (Clonazepam 0.5 Mg Tab) 0.5 mg PO BID PRN PRN Reason: Anxiety Stop: 07/15/22 20:06 Last Admin: 06/16/22 21:03 Dose: 0.5 mg Dextrose (Dextrose 50% 50 Ml Syringe) 25 - 50 ml IV UD PRN; Protocol PRN Reason: Hypoglycemia Protocol Stop: 07/15/22 20:06 Duloxetine HCl (Duloxetine Hcl 30 Mg Cap) 30 mg PO DAILY WILLIAM Stop: 07/16/22 08:59 Last Admin: 06/17/22 08:27 Dose: 30 mg Enoxaparin Sodium (Enoxaparin Inj 40 Mg/0.4 Ml Syr) 40 mg SQ QAM WILLIAM Stop: 07/16/22 08:59 Last Admin: 06/17/22 08:28 Dose: 40 mg Gabapentin (Gabapentin 100 Mg Cap) 100 mg PO TID WILLIAM Stop: 07/15/22 20:59 Last Admin: 06/17/22 13:56 Dose: 100 mg Glucagon (Glucagon For Inj 1 Mg Vial) 1 mg SQ UD PRN; Protocol PRN Reason: Hypoglycemia Protocol Stop: 07/15/22 20:06 Glucose (Glucose 40% Gel 15 Gm Tube) 15 - 30 gm PO UD PRN; Protocol PRN Reason: Hypoglycemia Protocol Stop: 07/15/22 20:06 Glucose (Glucose 10 Tab/Tube) 4 - 8 tab PO UD PRN; Protocol PRN Reason: Hypoglycemia Treatment Stop: 07/15/22 20:06 Vancomycin HCl 1,250 mg/ (Sodium Chloride) 275 mls @ 200 mls/hr IV Q12H [facility]; Protocol Stop: 07/29/22 15:14 Piperacillin Sod/Tazobactam (Sod 4.5 gm/ Dextrose) 120 mls @ 30 mls/hr IV Q8H [facility]; Protocol Stop: 07/29/22 15:29 Piperacillin Sod/Tazobactam (Sod 3.375 gm/ Dextrose) 115 mls @ 230 mls/hr IV NOW ONE; Protocol Stop: 06/17/22 16:14 Vancomycin HCl 2,000 mg/ (Sodium Chloride) 540 mls @ 200 mls/hr IV ONE ONE Stop: 06/17/22 18:26 Insulin Aspart (Insulin Aspart Per Unit) 0 units SC ACHS [facility]; Protocol Stop: 07/15/22 20:59 Last Admin: 06/17/22 12:25 Dose: 11 units Insulin Glargine (Lantus Per Unit Charge) 36 units SQ HS [facility]; Protocol Stop: 07/15/22 20:59 Levothyroxine Sodium (Levothyroxine Sodium 150 Mcg Tablet) 150 mcg PO DAILYBB [facility] Stop: 07/16/22 06:29 Last Admin: 06/17/22 06:03 Dose: 150 mcg Metoprolol Succinate (Metoprolol Succ 25mg Ext Rel Tab) 25 mg PO QAM [facility] Stop: 07/16/22 08:59 Last Admin: 06/17/22 08:27 Dose: 25 mg Miscellaneous (Carbohydrates For Hypoglycemia ) 15 - 30 gm PO UD PRN PRN Reason: Hypoglycemia Protocol Stop: 07/15/22 20:06 Miscellaneous Information (Pharmacy Glycemic Mgmt Consult) 1 each N/A UD PRN PRN Reason: Consult Stop: 07/15/22 20:06 Miscellaneous Information (Vancomycin Consult Active) 1 each N/A UD PRN PRN Reason: Consult Stop: 07/17/22 15:14 Ondansetron HCl (Ondansetron Inj 2 Mg/Ml 2 Ml Vial) 4 mg IV Q6H PRN PRN Reason: Nausea Stop: 07/15/22 20:06 Pantoprazole Sodium (Pantoprazole 40 Mg Tab) 40 mg PO BID [facility] Stop: 07/15/22 20:59 Last Admin: 06/17/22 08:27 Dose: 40 mg Rosuvastatin Calcium (Rosuvastatin Calcium 20 Mg Tab) 40 mg PO QAM [facility] Stop: 07/16/22 08:59 Last Admin: 06/17/22 08:27 Dose: 40 mg Trazodone HCl (Trazodone Hcl 50 Mg Tab) 50 mg PO [facility] Stop: 07/15/22 20:59 Last Admin: 06/16/22 20:57 Dose: 50 mg (1) Diabetes mellitus, type II Diabetes mellitus complication status: with hyperglycemia Diabetes mellitus correction insulin use: with technologies division chair use Qualified Code(s): E11.65 - Type 2 diabetes mellitus with hyperglycemia; 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
[2022-06-17] MEDS ORDERED: PIPERACILLIN/TAZOBACTAM 3.375 GM in DEXTROSE 5% 100 ML IV ONE (15:45)
[2022-06-17] MEDS ORDERED: VANCOMYCIN HCL 2,000 MG in SODIUM CHLORIDE 0.9% 500 ML IV ONE (15:45)
[2022-06-17 18:16] LABS: Appearance Urine Clear (Clear); Bacteria Urine Automated 2+ (Negative); Bilirubin Urine Negative (Negative); Blood Urine Negative (Negative); Color Urine Yellow; Glucose Urine UA Negative (Negative); Ketones Urine Negative (Negative); Leukocyte Esterase Urine 2+ (Negative); Nitrite Urine Negative (Negative); Protein Urine Negative (Negative); RBC Urine Automated 0-4 /hpf (0-4); Specific Gravity Urine 1.013 (1.000-1.030); Urobilinogen Urine Negative (Negative); WBC Urine Automated >30 /hpf (0-5); pH Urine 6.5 (4.5-7.5)
[2022-06-17] MEDS: amLODIPine BESYLATE 5 MG TAB PO SCH (20:05)
[2022-06-17] MEDS: clonazePAM 0.5 MG TAB PO PRN (20:05)
[2022-06-17] MEDS: traZODone HCL 50 MG TAB PO SCH (20:05)
[2022-06-17] MEDS: PIPERACILLIN/TAZOBACTAM 3.375 GM in DEXTROSE 5% 100 ML IV SCH (20:05)
[2022-06-17] MEDS ORDERED: LANTUS PER UNIT CHARGE SQ SCH (21:00)
[2022-06-18] MEDS: PIPERACILLIN/TAZOBACTAM 3.375 GM in DEXTROSE 5% 100 ML IV SCH ×3 (04:15→20:39)
[2022-06-18] MEDS: VANCOMYCIN HCL 1,000 MG in SODIUM CHLORIDE 0.9% 250 ML IV SCH ×2 (04:20→15:57)
[2022-06-18] MEDS: LEVOTHYROXINE SODIUM 150 MCG TABLET PO SCH (05:43)
--- NOTE | 2022-06-18 09:07 | Pharmacy Report ---
Pharmacy Glycemic Short Note 2 - Date of Service June 18, 2022 - Glycemic Short BSG Results (Last 24 hours): 06/17/22 06/17/22 06/17/22 11:20 16:38 20:08 POC Glucose 156 H 184 H 187 H 06/18/22 07:39 POC Glucose 184 H OUTPATIENT ANTIDIABETIC REGIMEN: * Trulicity 1.5 mg SC every Wednesday * Metformin 1000 mg PO BIDM * Omnipod: * Basal: 3.5 units/hr (84 units/day) * Correction Factor: 7 * Carb Ratio: 4 * HbA1c = 11.9% (04/25/22) ASSESSMENT: 06/18: * Received 66 units of insulin yesterday - 36 units basal + 30 units bolus. BSGs acceptable: 630-007-320-187 mg/dL. * Fasting BSG did not improved today: 184 mg/dL. Will increase basal by 10% which, combined with yesterday's increase, will be 30% total. * No change to Novolog. 06/17: * Juany received 54 units of insulin yesterday - 30 units basal + 24 units bolus. BSGs acceptable: 948-400-916-169 mg/dL. * No improvement in fasting BSG today: 171 mg/dL. Will increase basal by 20% today. * No change to Novolog. 06/16: * 57 yo M w recent admission in April, admitted w syncope. * Will resume regimen similar to previous admission, except with slightly tighter CHO ratio as post-prandial BSG's were slightly elevated on previous regimen PLAN FOR INPATIENT GLYCEMIC CONTROL: * Hold outpatient oral diabetes medications * Basal insulin * Lantus 40 units SC HS * Bolus insulin * NovoLog per scale ACHS or Q6hrs while NPO * Goal Range: Low 110 mg/dL - High 140 mg/dL * Correction Factor: 15 mg/dL/unit * Nutritional / Prandial insulin per carb ratio of 1 unit per 4 grams CHO consumed
[2022-06-18] MEDS: INSULIN ASPART PER UNIT SC SCH ×4 (09:30→20:40)
[2022-06-18] MEDS: PANTOprazole 40 MG TAB PO SCH ×2 (09:39→21:10)
[2022-06-18] MEDS: GABAPENTIN 100 MG CAP PO SCH ×3 (09:41→22:01)
--- NOTE | 2022-06-18 09:41 | Orthopedic Consultation ---
Date of Consultation June 18, 2022 Assessment & Plan (1) Diabetic infection of right foot: Discussed the x-ray findings with the patient. These combined with her clinical exam are highly suspicious for osteomyelitis. I would recommend a MRI of her forefoot to help confirm the diagnosis, and potentially to help with surgical planning. If the MRI does in fact show osteomyelitis, recommend infectious disease should be consulted for antibiotic treatment. Wound care as per the wound care nursing team. She will need follow-up with Dr. Bhavani Triplett as an outpatient. I told her she will need to discuss with her the possibility of having her distal phalanx amputated similar to what she had on the other side as the definitive treatment for her osteomyelitis. No indication for any acute surgical treatment, however. From an orthopedic standpoint, she may discharge from the hospital when medically stable. Feel free to contact orthopedics with any questions or concerns. (2) Acute osteomyelitis of toe of right foot: History of Present Illness Reason for Consultation: Concern for right great toe osteomyelitis Attending Physician: Mona Camargo, History of Present Illness Patient is a 57-year-old female with past medical history of type 2 diabetes mellitus, postsurgical hypothyroidism, generalized anxiety disorder, diabetic neuropathy, hyperlipidemia, coronary artery disease, chronic RBBB presented to the ED on June 15, 2022 with complaint of chest pain and syncopal episode. Patient complains of episode of chest pain on her left side followed by a syncopal episode . The pain was located on the left side, nonradiating, not associated with palpitation, diaphoresis or nausea or vomiting. Patient says that she passed out after the chest pain and does not remember the events thereafter. Patient was sitting when the event happened. She denies any preceding aura, bowel/bladder incontinence or confusion after the syncopal episode. She denies any fever, chills, abdominal pain or urinary symptoms. She has a history of coronary artery disease and follows up with her casino cage manager as outpatient regularly. Her last coronary angiography was on March 19, 2022 which showed a chronic right coronary occlusion with collaterals fill via left anatomy. She was recommended to have Zio patch event monitor during the visit. However, patient denies having Zio patch placed. Last echo was on February 2022, found to have EF of 55 to 59% with grade 1 diastolic dysfunction. She was admitted to the hospital and cardiology was consulted. She has had issues in the past with the right great toe which is followed by the wound care clinic up until about 3 weeks ago. She states that in the last 3 weeks she has been caring for her toe on her own. She reports she was using antibiotic ointment. She says that about 1 day before she came into the hospital she noticed some faint redness around the toe. She does not have a lot of pain but she has neuropathy in all of her toes resulting in inability to feel much pain. She has previously undergone a amputation of the distal phalanx of her left great toe by Dr. Bhavani Triplett in the past and follows with Dr. Bhavani Triplett her herpetologist as an outpatient. Patient denies any fevers or chills. Has not noticed any drainage from the toe. Allergies Allergy/AdvReac Type Severity Reaction Status Date / Time adhesive tape Allergy Mild PER PT Verified 06/15/22 18:01 "GLUE ON TAPE"--SKIN IRRITATION Home Medications Medication Instructions Recorded Confirmed Type aspirin 81 mg tablet,delayed 81 mg PO QAM 02/18/19 06/15/22 History release omeprazole 20 mg tablet,delayed 20 mg PO BID 02/18/19 06/15/22 History release amlodipine 2.5 mg tablet 2.5 mg PO QPM 03/27/19 06/15/22 History gabapentin 100 mg capsule 100 mg PO TID 07/21/19 06/15/22 History metoprolol succinate 25 mg 25 mg PO QAM 05/24/21 06/15/22 History tablet,extended release 24 hr rosuvastatin 40 mg tablet 40 mg PO QAM 05/24/21 06/15/22 History clonazepam 0.5 mg tablet 0.5 mg PO BID PRN Anxiety 12/30/21 06/15/22 History insulin aspart U-100 100 unit/mL 200 unit subcut UD 12/30/21 06/15/22 History subcutaneous solution insulin pump cart,cont inf,BT 12/30/21 06/15/22 History (Omnipod Dash Pods (Gen 4) subcutaneous cartridge) levothyroxine 150 mcg tablet 150 mcg PO QAM 12/30/21 06/15/22 History (Synthroid) turmeric root extract 500 mg 500 mg PO QAM 12/30/21 06/15/22 History capsule dulaglutide 1.5 mg/0.5 mL 1.5 mg subcut WK 03/18/22 06/15/22 History subcutaneous pen injector (Trulicity) metformin 1,000 mg tablet,extended 1,000 mg PO BIDWMEAL #0 tabs 04/28/22 06/15/22 Rx release 24hr trazodone 50 mg tablet 50 mg PO HS 05/29/22 06/15/22 History duloxetine 30 mg capsule,delayed 30 mg PO DAILY 06/15/22 06/15/22 History release Patient History Medical History Amputation of toe Anxiety Benign neoplasm of vulva of clitoris CAD (coronary artery disease) Diabetes mellitus, type II insulin pump GERD (gastroesophageal reflux disease) History of thyroid cancer with surgical intervention Hyperglycemia Hypertension Myocardial Infarction 12 YEARS AGO (FOLLOWED BY DR. DODSON) VERBALIZED NO HEART CATH DONE Peripheral neuropathy Restless leg syndrome Schwannoma REMOVED BY DR. GROSSMAN MARCH 2018 Stroke 7 YEARS AGO (LEFT SIDE WEAKNESS/LEFT EYE DROOPING) > follows with a neurologist unsure of name Suicidal ideation resolved per pt Tumor LEFT FEMUR (BENIGN) 2 TUMORS REMOVED > several yrs ago Vulvitis resolved per pt Surgical History Family history of reaction to anesthesia BROTHER-NAUSEA H/O blepharoplasty RT/LEFT History of anesthesia reaction SLOW TO WAKE UP History of cardiac cath March 2022, [facility] > no stents/ just check up per pt History of cholecystectomy History of colonoscopy History of esophagogastroduodenoscopy (EGD) History of neck surgery anterior cervical discectomy with bilateral foraminotomies C6-7. #2 anterior cervical arthrodesis C6-7. #3 placement of titanium 9.9 mm cage filled with DBM and C6-7. #4 occasional hernandez plate and screws across C6-7 >> ROM no limitations History of surgery robot-assist left thorascopic resection of schwannoma from left upper mediastinum. 03/16/2018. SANG. A line. No issues. History of thyroidectomy, total History of tonsillectomy History of tooth extraction S/P LASIK surgery of both eyes Status post hysteroscopic ablation of endometrium Family History Grandmother (Maternal) Family history of diabetes mellitus Mother Ovarian cancer Father Myocardial infarction Social History Smoking Status: Never smoker Second Hand Exposure: Yes; Do You Dip or Chew Tobacco: No; Tobacco Cessation Education Requested by Patient: No Hx Alcohol Use: No Hx Substance Use: No Communication Ability: Effective Chairman & Ceo Required: No Beliefs That Will Affect Care: Sikhism Sikhism Beliefs: Evangelical marital status: / Current Living Situation: Alone How many Children do You have: 2 Other Information That Helps Us Care for You: No Feels Safe at Home: Yes Safety Concerns: Feels Safe At This Time Assistive Devices: None Physical Exam Physical Exam: On exam she is resting comfortably in bed in no acute distress. Alert and oriented x3. Answers all questions appropriately. Right foot exam reveals the patient to have an open wound along the lateral aspect of the right great toe nailbed. This measures approximately 12 mm x 4 mm. The lateral side of the great toe nail has been removed. There is some faint yellow discoloration at the base of the wound suspicious for purulence although its not actively draining. The perinychium has some erosion along this lateral side of the nailbed. Adjacent to this there is faint erythema approximately 1.5 cm in diameter. Patient has absent sensation to light touch over all the toes with the exception of the little toe. She has a stocking glove type neuropathy going up to around the MTP joints. She has a palpable dorsalis pedis pulse, however I was unable to palpate her posterior tibial pulse. Results & Data ([facility]) Vital Signs (Past 12 Hours) Vital Signs Temp Pulse Resp BP Pulse Ox O2 Del Method 06/18/22 07:00 36.5 C 72 18 116/57 L 91 Room Air 06/18/22 04:06 36.5 C 67 18 116/70 91 Room Air 06/17/22 23:16 36.8 C 75 18 104/62 96 Room Air Diagnostic Findings X-rays 3 views of the right great toe were performed in the hospital on June 16, 2022. There is some subtle cortical erosion of the lateral aspect of the distal phalanx. On the oblique view there is some slight lucency. These findings are concerning for osteomyelitis of the distal phalanx.
[2022-06-18] MEDS: ASPIRIN 81 MG ECTAB PO SCH (09:42)
[2022-06-18] MEDS: ROSUVASTATIN CALCIUM 20 MG TAB PO SCH (09:42)
[2022-06-18] MEDS: DULoxetine HCL 30 MG CAP PO SCH (09:43)
[2022-06-18] MEDS: METOPROLOL SUCC 25MG EXT REL TAB PO SCH (09:43)
[2022-06-18] MEDS: ENOXAPARIN INJ 40 MG/0.4 ML SYR SQ SCH (09:44)
--- NOTE | 2022-06-18 10:27 | Pharmacy Report ---
Pharmacy PK ABX Note - Date of Service June 18, 2022 - Assessment and Plan Assessment 57 year old F receiving Vancomycin and Zosyn empirically for treatment of diabetic foot infection. * PMHx significant for T2DM. * Afebrile and without leukocytosis. ESR/CRP normal. Cultures pending. * Orthopedics and Infectious Disease consulted. ID consult pending. Ortho note states "x-ray results....combined with her clinical exam are highly suspicious for osteomyelitis". Foot MRI ordered as well. Plan Vancomycin * Loading dose: 2000 mg IV x 1 * Maintenance dose: 1000 mg IV every 12 hours * Regimen is predicted to achieve target AUC/MAGDA of 400-600 mg/L.hr * Trough level ordered for: 06/19/22 Zosyn * 3.375 g IV loading dose x 1 followed by 3.375 g IV every 8 hours Pharmacy will continue to follow and will adjust dose/frequency as necessary. Thank you. Pharmacy has transitioned to AUC monitoring for vancomycin. AUC/MAGDA is the preferred PK/PD target and is associated with decreased risk of nephrotoxicity compared to traditional trough targets.
--- NOTE | 2022-06-18 10:52 | Cardiology Progress Note ---
Date of Service June 18, 2022 Assessment & Plan (1) AMS (altered mental status): (2) Loss of consciousness: (3) Chest pain: (4) Elevated troponin: (5) CAD (coronary artery disease): Plan 57-year-old female admitted following an episode of witnessed altered consciousness/possible loss of consciousness with associated urinary incontinence, undefined, and atypical chest pain. Cardiac work-up negative. High sensitivity troponin I noted to be minimally elevated and flat, possibly chronic, unchanged from April, without any other evidence to suggest an acute coronary syndrome. Patient with known codominant coronary anatomy with chronic total occlusion mid right coronary artery with distal filling via [id number] collaterals, thin mid and apical left anterior descending with diffuse atherosclerosis via March 19, 2022 cardiac catheterization. Continuous telemetry monitoring without arrhythmias. Recent outpatient ZIO monitoring obtained and reassuring. No further cardiac workup planned at this time. Continue the current cardiac regimen while exploring noncardiac etiologies to complaints. Signing off; please contact with any questions or concerns. Admission and Anticipated Discharge Date Admission Date: June 15, 2022 Supervising Physician Co-Signing Physician Notes Supervising Physician Attestation: I have personally performed a history and physical examination on the patient. I agree with the physician animal care assistant's findings and plan as documented with the following additions. Subjective: No cardiac complaints Exam: Pulmonary: Lungs clear to auscultation bilaterally Cardiovascular regular rhythm, no murmurs, no edema Assessment and Plan: Assessment and plan as noted in Mr. Cardenas's progress note. Patient remains on antibiotics for treatment of diabetic foot wound. Madi Porras, Subjective Patient seen and examined. Chart, medications, and telemetry reviewed. No cardiac complaints. No chest pain. No palpitations. No resting shortness of breath, cough, orthopnea, PND, or peripheral edema. Telemetry: Sinus in the 60s to 70s. No arrhythmias. June 16, 2022 TTE Interpretation Summary ([facility], Dr. Porras): The study is technically difficult, but adequate for the evaluation of the referral indication. There is mild concentric LVH. The left ventricular wall motion is normal. The left ventricular ejection fraction is 55 to 60%. The RV is mildly dilated. RV systolic function is moderately reduced. There is mild aortic valve sclerosis without significant stenosis. Grade 1 diastolic dysfunction. Chest CTA negative for PE or acute intrathoracic findings on June 16, 2022. Physical Exam Physical Exam: General: A&Ox3. NAD. HENT: Normocephalic. Atraumatic. Eyes: PER. Conjunctiva pink, sclera clear. Neck: Multiple surgical scars. No carotid bruits. No JVD. Heart: RRR. Grade II/ systolic murmur. No rub. No gallop. Lungs: Clear to auscultation. Abdomen: +BS. Soft. Nontender. No masses or organomegaly. Extremities: Partial amputation of the left great toe, healed. No edema. Limited neurological examination is without focal deficits. Results & Data ([facility]) Vital Signs (Past 12 Hours) Vital Signs Temp Pulse Resp BP Pulse Ox O2 Del Method 06/18/22 07:00 36.5 C 72 18 116/57 L 91 Room Air 06/18/22 04:06 36.5 C 67 18 116/70 91 Room Air 06/17/22 23:16 36.8 C 75 18 104/62 96 Room Air Laboratory Results Intake and Output 06/17/22 06/18/22 06/18/22 22:59 06:59 14:59 Intake Total 1335 / 2350 535 / 2350 115 / 115 Output Total 400 / 650 250 / 650 Balance 935 / 1700 285 / 1700 115 / 115 Intake: IV 655 / 1040 385 / 1040 115 / 115 Piperacillin/Tazobactam 3.375 115 / 230 115 / 230 115 / 115 gm In Dextrose 5% 100 ml @ 28. 75 mls/hr IV Q8H [facility] Rx#: [id number] Vancomycin HCl 1,000 mg In 270 / 270 Sodium Chloride 0.9% 250 ml @ 200 mls/hr IV Q12H [facility] Rx#: [id number] Vancomycin HCl 2,000 mg In 540 / 540 Sodium Chloride 0.9% 500 ml @ 200 mls/hr IV [facility] Rx#: [id number] Oral 680 / 1310 150 / 1310 Output: Urine 400 / 650 250 / 650 Other: Weight 87.6 kg Weight Measurement Method Standing Scale
--- NOTE | 2022-06-18 14:35 | Magnetic Resonance Report ---
MR foot RT w/o con HISTORY: 57 years-old Female rule out Right first toe osteomyelitis chronic wound of the right great toe the patient with diabetes. COMPARISON: Toe radiographs 06/16/2022 TECHNIQUE: Multiplanar multisequence MRI of the right foot was obtained without the use of IV contras t. FINDINGS: There is mild multifocal osteoarthritis. No acute fracture, dislocation or osseous erosion. Motion de graded exam. There is minimal marrow edema involving the first distal phalanx with preserved T1 marro w signal. There is diffuse atrophy and edema of the foot musculature. The imaged flexor and extensor tendons appear intact. Mild subcutaneous edema is noted circumferentially involving the great toe wit h edema also noted beneath the nailbed. No drainable fluid collections. IMPRESSION: 1. Minimal marrow edema of the first distal phalanx with preserved T1 marrow signal is suggestive of reactive osteitis. No definitive MR evidence of acute osteomyelitis. 2. Findings suggestive of cellulitis within the great toe with possible paronychia. No abscess. 3. Chronic denervation changes of the foot musculature. ACT 112: Negative or not required by law. The above report was generated using voice recognition software. It may contain grammatical, syntax o r spelling errors. Electronically signed by: Deepak Martinez M.D. 06/18/2022 2:33 PM
[2022-06-18] MEDS ORDERED: LANTUS PER UNIT CHARGE SQ SCH (21:00)
[2022-06-18] MEDS: traZODone HCL 50 MG TAB PO SCH (21:10)
[2022-06-18] MEDS: amLODIPine BESYLATE 5 MG TAB PO SCH (21:10)
--- NOTE | 2022-06-18 22:09 | Hospitalist Progress Note ---
Date of Service June 18, 2022 Assessment & Plan (1) Syncope: (2) Chest pain: (3) Elevated troponin: (4) Diabetes mellitus, type II: (5) Diabetic infection of right foot: Plan Patient is a 57-year-old female with past medical history of type 2 diabetes mellitus, postsurgical hypothyroidism, generalized anxiety disorder, diabetic neuropathy, hyperlipidemia, coronary artery disease, chronic RBBB presents to the ED with complaint of chest pain and syncopal episode. 1) Syncopal episode ( ?Cardiogenic) 2) Chest pain 3) Elevated Troponin -Chest pain followed by syncopal episode sitting position [id number] on admission, repeat essentially unchanged EKGsinus rhythm, right bundle branch block; similar to last admission's EKG Echo in 02/2022EF of 55 to 59%; grade 1 diastolic dysfunction Left heart cath in 03/2022 chronic chronic right coronary occlusion with collaterals fill via left anatomy CT head and cervicalno acute abnormality Continue on aspirin, rosuvastatin and metoprolol. Cardiology work-up negative to date and she is improved. No evidence of acute coronary syndrome. Telemetry does not reveal evidence of arrhythmias and recent outpatient ZIO monitoring was obtained and normal. No further cardiac work-up planned. Encourage ambulation and will obtain PT and OT if needed. 4) DMII with hyperglycemia Patient on insulin pump. - A1c is 12.6% in 04/2022 -glycemic pharmacy consulted -inpatient BSG at goal, continues on basal bolus insulin as inpatient. 5) Diabetic R toe wound -History of osteomyelitis on left toe -Patient had a trauma to the right toe, and was followed by [place] wound [facility] -She was discharged by the wound clinic two weeks ago, however continues to have wound there, and also some greenish discharge reported two days ago. -Blood cultures pending -ESR, CRP ordered, x-ray of right toe ordered showing cortical irregularity concerning for osteo -Ortho and ID consulted for further investigation/recs -started on broad spectrum antibiotics with Vanc and zosyn -MRI revealing reactive osteitis -awaiting ID recs and cont abx for now Chronic, stable Conditions: Depression/NBA- Continue duloxetine, klonopin as needed Diabetic neuropathy- continue gabapentin Code status- DNR/DNI DVT- Lovenox Dispo-to home pending PT and OT evaluations and clinical improvement. Mona Camargo DO [facility] Hospitalist Admission and Anticipated Discharge Date Admission Date: June 15, 2022 Subjective 57 yo F presents after syncopal episode during group therapy with prodrome. some deconditioning and difficulty ambulating toe without pain MRI pending Doing well otherwise Review of Systems Review of Systems: All systems were reviewed and negative except as indicated above. Physical Exam Physical Exam: CONSTITUTIONAL: WNWD, vitals as above, generally well- appearing, NAD EYES: normal conjunctivae, no scleral icterus ENT: external ear and nose normal, MMM NECK: trachea midline RESPIRATORY: clear to auscultation bilaterally, no crackles, rales or wheezes, normal respiratory effort CARDIOVASCULAR: regular rate and rhythm, S1 and 2 heard without murmurs, gallops or rubs, no JVD, no peripheral edema CHEST: inspection of chest was normal GASTROINTESTINAL: soft, nontender, ND, no guarding MUSCULOSKELETAL: strength 5/5 throughout, head is normocephalic and atraumatic SKIN: warm and dry, erythematous wound around the nailbed of the first toe on the right foot. No spreading erythema or other signs of cellulitis. NEUROLOGIC: CN 2-12 grossly intact, no sensory deficit, normal cognition, normal speech, no tremor PSYCHIATRIC: alert cooperative and oriented to person, place and time. Euthymic mood, makes good eye contact, language grossly intact, recent and remote memory grossly intact. Results & Data Results & Data ([facility]) Vital Signs (Past 12 Hours) Vital Signs Temp Pulse Resp BP Pulse Ox O2 Del Method 06/18/22 19:30 36.8 C 76 19 120/70 94 Room Air 06/18/22 17:37 36.5 C 74 20 111/65 97 06/18/22 12:49 36.7 C 73 18 131/69 97 Diagnostic Findings Foot MRI 06/18/22 10:05 MR foot RT w/o con HISTORY: 57 years-old Female rule out Right first toe osteomyelitis chronic wound of the right great toe the patient with diabetes. COMPARISON: Toe radiographs 06/16/2022 TECHNIQUE: Multiplanar multisequence MRI of the right foot was obtained without the use of IV contrast. FINDINGS: There is mild multifocal osteoarthritis. No acute fracture, dislocation or osseous erosion. Motion degraded exam. There is minimal marrow edema involving the first distal phalanx with preserved T1 marrow signal. There is diffuse atrophy and edema of the foot musculature. The imaged flexor and extensor tendons appear intact. Mild subcutaneous edema is noted circumferentially involving the great toe with edema also noted beneath the nailbed. No drainable fluid collections. IMPRESSION: 1. Minimal marrow edema of the first distal phalanx with preserved T1 marrow signal is suggestive of reactive osteitis. No definitive MR evidence of acute osteomyelitis. 2. Findings suggestive of cellulitis within the great toe with possible paronychia. No abscess. 3. Chronic denervation changes of the foot musculature. ACT 112: Negative or not required by law. The above report was generated using voice recognition software. It may contain grammatical, syntax or spelling errors. Electronically signed by: Deepak Martinez M.D. 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
[2022-06-19] MEDS: VANCOMYCIN HCL 1,000 MG in SODIUM CHLORIDE 0.9% 250 ML IV SCH (05:05)
[2022-06-19] MEDS: PIPERACILLIN/TAZOBACTAM 3.375 GM in DEXTROSE 5% 100 ML IV SCH (05:05)
[2022-06-19] MEDS: LEVOTHYROXINE SODIUM 150 MCG TABLET PO SCH (05:07)
[2022-06-19] MEDS: ENOXAPARIN INJ 40 MG/0.4 ML SYR SQ SCH (08:05)
[2022-06-19] MEDS: GABAPENTIN 100 MG CAP PO SCH ×2 (08:05→13:45)
[2022-06-19] MEDS: ASPIRIN 81 MG ECTAB PO SCH (08:05)
[2022-06-19] MEDS: ROSUVASTATIN CALCIUM 20 MG TAB PO SCH (08:06)
[2022-06-19] MEDS: METOPROLOL SUCC 25MG EXT REL TAB PO SCH (08:06)
[2022-06-19] MEDS: DULoxetine HCL 30 MG CAP PO SCH (08:06)
[2022-06-19] MEDS: INSULIN ASPART PER UNIT SC SCH ×2 (08:14→12:49)
[2022-06-19 08:45] LABS: Creatinine Clr Calc Pharmacy 66.8 ml/min; Est GFR (African American) 67.3 ml/min; Est GFR (Non-African American) 58.1 ml/min
[2022-06-19] MEDS ORDERED: LANTUS PER UNIT CHARGE SQ SCH ×2 (09:00→21:00)
--- NOTE | 2022-06-19 09:47 | Orthopedic Progress Note ---
Date of Service June 19, 2022 Assessment & Plan (1) Diabetic infection of right foot: Plan: Discussed results of MRI with Cricket Niño PA-C. There is no acute osteomyelitis of the great toe. She had no erythema or drainage on the dressing today. Pt was strongly advised on monitoring feet daily. Pt has consult in for ID and orthopedics is recommending she follow up with Dr. Bhavani Triplett as an outpatient once she is d/c. Please contact orthopedics with any questions or concerns. Orthopedics will sign off. (2) Paronychia of great toe of right foot: Admission and Anticipated Discharge Date Admission Date: June 15, 2022 Subjective Patient was seen this am approx 9:00 am . She is in good spirits sitting in bed watching television. She states she is not having any pain in her right great toe. She states she has no sensation in the toe. She denies any redness surrounding toe or on right foot. She denies any fever, chills, night sweats, CP or SOB. She would like to discuss her MRI results. Review of Systems Review of Systems: refer to [facility] Physical Exam Physical Exam: Pt is alert and oriented x3. She is in no acute distress and in good spirits. Toe has dressing in place. This was lifted to examine the toe. Neg for any erythema or drainage on dressing. She has no sensation over the toes or plantar aspect of the right foot. She has diminished sensation over the dorsal aspect of the right foot. She is able to move the ankle and toes w/o pain. DP palpable 1+unable to appreciate posterior tibialis pulse. RLE is warm to touch and normal in color. RLE is NVI. Results & Data ([place]) Vital Signs (Past 12 Hours) Vital Signs Temp Pulse Resp BP Pulse Ox O2 Del Method 06/18/22 23:11 36.9 C 69 18 102/61 95 Room Air Diagnostic Findings Foot MRI 06/18/22 10:05 MR foot RT w/o con HISTORY: 57 years-old Female rule out Right first toe osteomyelitis chronic wound of the right great toe the patient with diabetes. COMPARISON: Toe radiographs 06/16/2022 TECHNIQUE: Multiplanar multisequence MRI of the right foot was obtained without the use of IV contrast. FINDINGS: There is mild multifocal osteoarthritis. No acute fracture, dislocation or osseous erosion. Motion degraded exam. There is minimal marrow edema involving the first distal phalanx with preserved T1 marrow signal. There is diffuse atrophy and edema of the foot musculature. The imaged flexor and extensor tendons appear intact. Mild subcutaneous edema is noted circumferentially involving the great toe with edema also noted beneath the nailbed. No drainable fluid collections. IMPRESSION: 1. Minimal marrow edema of the first distal phalanx with preserved T1 marrow signal is suggestive of reactive osteitis. No definitive MR evidence of acute osteomyelitis. 2. Findings suggestive of cellulitis within the great toe with possible paronychia. No abscess. 3. Chronic denervation changes of the foot musculature. ACT 112: Negative or not required by law. The above report was generated using voice recognition software. It may contain grammatical, syntax or spelling errors. Electronically signed by: Deepak Martinez M.D. 06/18/2022 2:33 PM
[2022-06-19] MEDS: PANTOprazole 40 MG TAB PO SCH (09:56)
[2022-06-19] MEDS ORDERED: SODIUM CHLORIDE 0.9% 1000ML 1,000 ML IV ONE (10:48)
--- NOTE | 2022-06-19 10:54 | Pharmacy Report ---
Pharmacy Glycemic Short Note 2 - Date of Service June 19, 2022 - Glycemic Short BSG Results (Last 24 hours): 06/18/22 06/18/22 06/18/22 11:35 16:39 20:21 POC Glucose 152 H 287 H 253 H 06/19/22 07:08 POC Glucose 201 H OUTPATIENT ANTIDIABETIC REGIMEN: * Trulicity 1.5 mg SC every Wednesday * Metformin 1000 mg PO BIDM * Omnipod: * Basal: 3.5 units/hr (84 units/day) * Correction Factor: 7 * Carb Ratio: 4 * HbA1c = 11.9% (04/25/22) ASSESSMENT: 06/19: * Patient received total of 87 units of insulin yesterday, of which 40 units were basal * Fasting BSG elevated at 201 mg/dL -we have been titrating up insulin each day, patient on a very large amount of basal with pump. Will provide scale for basal this evening and titrate up dose * Will continue with once daily dosing of basal as it will be easier to transition to insulin pump on discharge 06/18: * Received 66 units of insulin yesterday - 36 units basal + 30 units bolus. BSGs acceptable: 305-290-067-187 mg/dL. * Fasting BSG did not improved today: 184 mg/dL. Will increase basal by 10% which, combined with yesterday's increase, will be 30% total. * No change to Novolog. 06/17: * Juany received 54 units of insulin yesterday - 30 units basal + 24 units bolus. BSGs acceptable: 784-374-045-169 mg/dL. * No improvement in fasting BSG today: 171 mg/dL. Will increase basal by 20% today. * No change to Novolog. 06/16: * 57 yo M w recent admission in April, admitted w syncope. * Will resume regimen similar to previous admission, except with slightly tighter CHO ratio as post-prandial BSG's were slightly elevated on previous regimen PLAN FOR INPATIENT GLYCEMIC CONTROL: * Hold outpatient oral diabetes medications * Basal insulin * Lantus 40-50 units SC HS * Bolus insulin * NovoLog per scale ACHS or Q6hrs while NPO * Goal Range: Low 110 mg/dL - High 140 mg/dL * Correction Factor: 15 mg/dL/unit * Nutritional / Prandial insulin per carb ratio of 1 unit per 4 grams CHO consumed
--- NOTE | 2022-06-19 15:18 | Discharge Summary ---
Date of Service June 19, 2022 Admission HPI Per Admitting Provider Patient is a 57-year-old female with past medical history of type 2 diabetes mellitus, postsurgical hypothyroidism, generalized anxiety disorder, diabetic neuropathy, hyperlipidemia, coronary artery disease, chronic RBBB presents to the ED with complaint of chest pain and syncopal episode. Patient complains of episode of chest pain on her left side followed by a syncopal episode . The pain was located on the left side, nonradiating, not associated with palpitation, diaphoresis or nausea or vomiting. Patient says that she passed out after the chest pain and does not remember the events thereafter. Patient was sitting when the event happened. She denies any preceding aura, bowel/bladder incontinence or confusion after the syncopal episode. She denies any fever, chills, abdominal pain or urinary symptoms. She has a history of coronary artery disease and follows up with her neurology technologist as outpatient regularly. Her last coronary angiography was on March 19, 2022 which showed a chronic right coronary occlusion with collaterals fill via left anatomy. She was recommended to have Zio patch event monitor during the visit. However, patient denies having Zio patch placed. Last echo was on February 2022, found to have EF of 55 to 59% with grade 1 diastolic dysfunction. Principal Diagnosis syncope right diabetic foot infection Discharge Exam CONSTITUTIONAL: WNWD, vitals as above, generally well-appearing, NAD EYES: normal conjunctivae, no scleral icterus ENT: external ear and nose normal, MMM NECK: trachea midline RESPIRATORY: clear to auscultation bilaterally, no crackles, rales or wheezes, normal respiratory effort CARDIOVASCULAR: regular rate and rhythm, S1 and 2 heard without murmurs, gallops or rubs, no JVD, no peripheral edema CHEST: inspection of chest was normal GASTROINTESTINAL: soft, nontender, ND, no guarding MUSCULOSKELETAL: strength 5/5 throughout, head is normocephalic and atraumatic SKIN: warm and dry, erythematous wound around the nailbed of the first toe on the right foot. No spreading erythema or other signs of cellulitis. NEUROLOGIC: CN 2-12 grossly intact, no sensory deficit, normal cognition, normal speech, no tremor PSYCHIATRIC: alert cooperative and oriented to person, place and time. Euthymic mood, makes good eye contact, language grossly intact, recent and remote memory grossly intact. Discharge Data Allergies Allergy/AdvReac Type Severity Reaction Status Date / Time adhesive tape Allergy Mild PER PT Verified 06/15/22 18:01 "GLUE ON TAPE"--SKIN IRRITATION Consultations 06/15/22 16:31 ED Decision to Admit Stat 06/15/22 20:07 Consult Cardiology Routine 06/17/22 15:38 Consult Orthopedic Surgery Routine Ordered Studies 06/15/22 14:50 CT cervical spine wo con Stat CT head/brain wo con Stat 06/16/22 17:06 CT for pulmonary embolism PE [CT angio chest PE protocol] Urgent 06/18/22 10:05 MR foot RT w/o con Routine Hospital Course (1) Syncope: (2) Chest pain: (3) Elevated troponin: (4) Diabetes mellitus, type II: (5) Diabetic infection of right foot: Plan 57-year-old female was admitted following an episode of witnessed altered consciousness with possible loss of consciousness with associated urinary incontinence. She was found to have evidence of a urinary tract infection and orthostatic hypotension. Blood pressure was improved after normal saline administration. He was placed on vancomycin and Zosyn for a diabetic foot wound. She has a history of osteomyelitis and underwent an x-ray which revealed cortical irregularity in the right great toe. An MRI of the forefoot confirmed reactive osteitis and no evidence of osteomyelitis. Therefore, antibiotics were de-escalated. These antibiotics also covered the urinary tract infection. She was given a Darco shoe for help with ambulation and reported no pain. Of note cardiology was consulted for her syncopal episode given the elevated troponin that did not rise with high velocity. Continuous telemetry monitoring revealed no evidence of bradycardia arrhythmias or tachyarrhythmias and her recent ZIO monitoring as outpatient was reassuring. Resting echocardiogram was performed revealing an ejection fraction of 55 to 60% with a moderately reduced right ventricular systolic function. She had evidence of mild concentric left ventricular hypertrophy and the right ventricle was mildly dilated. Aortic stenosis was absent and grade 1 diastolic dysfunction was present. No further cardiac work-up was felt to be needed at this time. At time of discharge she was hemodynamically stable and afebrile and tolerating p.o. She was oxygenating well on room air and discharged in stable condition with close primary care follow-up recommended. Total Time Total Time Spent Total Time Spent (In Minutes): 60 Discharge Plan Discharge Items Patient Disposition: Home - Self-Care Reason For Visit: SYNCOPE Discharge Diagnosis: Syncope Diabetic foot infection Condition on Discharge: Good Activity: Resume your previous activity Non-emergency contact: Primary Care Provider Call non-emergency contact if: you have any medication questions, your symptoms worsen, your pain is not controlled, your pain is worsening, your pain is unusual for you, your pain is concerning for you and you have a fever Follow-up/Referrals: Ivonne French PA-C [Primary Care Provider] - (Date & Time 06/25/2022 12:00 PM Provider Juan Manuel Mancia MD [facility] ) Diet: Carb Consistent or DM2 Addtl Attending Provider Instructions: Please take all medications as instructed on discharge list below. Please complete the antibiotics as prescribed and followup with the wound care center for continued care of your nail and surrounding tissues. It is recommended that you follow-up with your primary care physician within 1 week to re-evaluate your foot and ensure you are healing well and tolerating the new medications for your foot. Also this will be important to discuss your syncopal episode and factors that may have contributed including food/water intake, medication review, etc. Please use the Darco orthotic shoe provided to take pressure off your foot as you walk around. It was a pleasure taking care of you! Please call if you have any questions or problems. You can reach a [facility] hospitalist on duty at [facility] 24 hours a day by calling [phone]. Take care of yourself. Mona Camargo, [facility] Hospitalist Pending Studies at Discharge: No Stand-Alone Forms: My [facility] Medications and DC Order Prescriptions: New amoxicillin-pot clavulanate 875-125 mg Tablet 1 tab PO BIDM Qty: 14 0RF sulfamethoxazole-trimethoprim [Bactrim DS] 800-160 mg Tablet 2 tab PO Q12 Qty: 28 0RF fluconazole [Diflucan] 150 mg tablet 150 mg PO ONCE PRN (Reason: as needed for yeast infections) Qty: 1 0RF Continued amlodipine 2.5 mg Tablet 2.5 mg PO QPM aspirin 81 mg Tablet,Delayed Release (Dr/Ec) 81 mg PO QAM omeprazole 20 mg Tablet,Delayed Release (Dr/Ec) 20 mg PO BID gabapentin 100 mg Capsule 100 mg PO TID metoprolol succinate 25 mg Tablet Extended Release 24 Hr 25 mg PO QAM rosuvastatin 40 mg Tablet 40 mg PO QAM clonazepam 0.5 mg tablet 0.5 mg PO BID PRN (Reason: Anxiety) levothyroxine [Synthroid] 150 mcg Tablet 150 mcg PO QAM turmeric root extract 500 mg Capsule 500 mg PO QAM insulin aspart U-100 100 unit/mL Solution 200 unit SUBCUT UD Rx Instructions: 200 units in omnipod pads form diabetes control (DME) Omnipod Dash Pods (Gen 4) Cartridge SUBCUT duloxetine 30 mg Capsule,Delayed Release(Dr/Ec) 30 mg PO DAILY Trulicity 1.5 mg/0.5 mL Pen Injector 1.5 mg SUBCUT WK Rx Instructions: pt states she doses on Mondays metformin 1,000 mg Tablet Extended Release 24hr 1,000 mg PO BIDWMEAL Qty: 0 0RF trazodone 50 mg Tablet 50 mg PO HS Discharge Orders: Discharge Order (Routine); Ordered 06/19/22 Ordered By: Mona Camargo Admission Data Admit Date/Time: 06/15/22 17:15 Attending Provider: Mona Camargo Admit Provider: Dinesh Llanes Primary Care Provider: Ivonne French Other Providers: Dinesh Llanes ; Madi Porras ; Migel Hunt Other Interventions: Discharge Summary Assessment (RN) Last Done: 06/19/22 15:49
[2022-06-19] MEDS ORDERED: VANCOMYCIN TROUGH LEVEL ONE (15:30)
[2022-06-19] MEDS ORDERED: AMOXICILLIN/CLAVULANATE 875 MG TAB PO SCH (17:00)
[2022-06-19] MEDS ORDERED: SULFAMETHOXAZOLE/TRIMETHOPRIM DS 800/160MG TAB PO SCH (21:00)
== END 2022-06-19 15:50 | disposition home or self-care (01) | DRG 312 ==
LOC: ED 14:42 → 2S 17:15 → SUATTDRO 17:15 → 2S 19:19
DX: Z66 Do not resuscitate; R07.9 Chest pain, unspecified; Z79.4 Long term (current) use of insulin; E89.0 Postprocedural hypothyroidism; R55 Syncope and collapse; Z79.82 Long term (current) use of aspirin; E87.1 Hypo-osmolality and hyponatremia; E11.43 Type 2 diabetes mellitus with diabetic autonomic (poly)neuropathy; F41.1 Generalized anxiety disorder; E11.65 Type 2 diabetes mellitus with hyperglycemia; I25.10 Atherosclerotic heart disease of native coronary artery without angina pectoris; R79.89 Other specified abnormal findings of blood chemistry; I45.10 Unspecified right bundle-branch block; E11.69 Type 2 diabetes mellitus with other specified complication; I25.2 Old myocardial infarction; E66.9 Obesity, unspecified; F32.A Depression, unspecified; Z68.29 Body mass index [BMI] 29.0-29.9, adult; M86.9 Osteomyelitis, unspecified; E11.40 Type 2 diabetes mellitus with diabetic neuropathy, unspecified; Z85.850 Personal history of malignant neoplasm of thyroid; E11.319 Type 2 diabetes mellitus with unspecified diabetic retinopathy without macular edema

== ENCOUNTER 2022-12-02 19:18 | Inpatient (IN) ==
[2022-12-02] MEDS ORDERED: SODIUM CHLORIDE 0.9% 1000ML 1,000 ML IV SCH (19:45)
--- NOTE | 2022-12-02 19:48 | Emergency Department Note ---
Impression & Plan Acute confusion, Syncope, Elevated lactic acid level, Hypomagnesemia ED Provider Note NAME: HENRIK HOWARD AGE: 57 SEX: F : 1965 ARRIVES VIA: Ambulance INFORMANT: [Patient][ems, nursing] ED PROVIDER(S): [Odilon Sierra MD] CHIEF COMPLAINT: Altered mental state HISTORY OF PRESENT ILLNESS: The patient is a 57-year-old female who presents by ambulance for confusion. The patient had gone to the [facility] walk-in clinic. She was altered. She had a syncopal spell in the chair while there. She apparently ran out of her insulin and has not had much to eat in 5 days. BSG by EMS was 274. Patient complains of some right knee pain, she thinks she must have bumped her knee when she passed out. She is a very poor historian, she cannot remember how she got to the [facility] walk-in clinic. She denies any chest pain or shortness of breath presently. Given the mental state, no further history obtainable. Of note, the patient does have a history of a previous stroke affecting her left side. She apparently has an ongoing left eye and left facial droop and some left-sided weakness from this previous CVA. PMHx/PSHx: See Below SOCIAL HISTORY: See Below. PHYSICAL EXAM: GENERAL: Patient is in no acute distress. HEENT: No acute trauma, normocephalic atraumatic, mucous membranes moist, no nasal congestion. NECK: No stridor, no adenopathy, no meningismus, trachea is midline. LUNGS: Clear to auscultation bilaterally, no wheeze, no rhonchi, breath sounds equal. HEART: Without murmurs gallops or rubs, regular rate and rhythm. ABDOMEN: Soft, nontender, bowel sounds positive, no peritonitis. EXTREMITIES: No cyanosis or edema, full range of motion of all the joints without pain or difficulty, no signs for acute trauma. I cannot elicit any focal discomfort with palpation of the right knee, no hematoma or joint effusion NEUROLOGIC: Confused, no speech slur. Raises her arms with equal strength. Extremity tremor noted SKIN: No rash, no jaundice, no diaphoresis. DIFFERENTIAL DIAGNOSIS: Dysrhythmia, electrolyte imbalance, dehydration, stroke, alcohol abuse, renal or liver failure, infection, psychosis, among others. EMERGENCY DEPARTMENT COURSE/PROCEDURES: Prior/Outside records reviewed: EMS records. ECG per my interpretation: Indication was confusion. The ECG shows a normal sinus rhythm with a rate of 79. There is a right bundle branch block. There are some inverted T waves seen diffusely. There is no ST elevation. The QTc is 470. Continuous Cardiac Monitoring per my interpretation: An order was placed for continuous cardiac monitoring. The monitor shows a rate of 77 with normal sinus rhythm. Critical Care Note: I have personally spent 39 minutes of critical care time in the direct management of this patient. This includes bedside care, interpretation of diagnostic studies, and testing, discussion with consultants, patient, and family members, and other required patient management activities. This 39 minutes is in excess of all separately billable procedures. MEDICAL DECISION MAKING: There is no leukocytosis or concerning anemia. There is a normal platelet count. No renal failure. Magnesium is low at 1.6. No concerning liver enzyme elevation. The patient appeared to be in a euthyroid state. ECG shows a normal sinus rhythm, no ST elevation. There was a right bundle branch block. Cardiac enzyme testing x1 does show a slight elevation, this troponin elevation could be from cardiac injury or potentially just mismatch. Urinalysis showed glucose, no infection. COVID, RSV and influenza testing was negative. Urine tox was positive for potentially ecstasy. Lactic acid level was elevated, this elevation could be from dehydration or potentially infection. Chest film per my review did not show pneumonia or CHF. Brain CT showed no acute bleed or mass- effect. On exam, the patient was somewhat confused. She could not remember how she had arrived at the outpatient center. The patient was not worked up as a stroke alert as the timing for all her symptoms was unclear. tPA was not indicated. The patient received IV saline, 2 L. She was given IV magnesium. He does appear somewhat improved. At this point, the cause for her confusion is unclear, the amount of time that she has been confused is unclear. I do think a hospital stay and further work-up/testing is indicated. I did speak with the patient about my findings, I did speak with case management. The on-call hospitalist was consulted. Patient does have a psychiatric history, psychosis must be considered as well as a potential reason for her presentation. DISPOSITION: Based on the patient's presentation and findings, I believe hospital admission is warranted/appropriate. Past Med/Surg History Medical History Amputation of toe Anxiety Benign neoplasm of vulva of clitoris CAD (coronary artery disease) Diabetes mellitus, type II insulin pump GERD (gastroesophageal reflux disease) History of thyroid cancer with surgical intervention Hyperglycemia Hypertension Myocardial Infarction 12 YEARS AGO (FOLLOWED BY DR. DODSON) VERBALIZED NO HEART CATH DONE Paronychia of great toe of right foot Peripheral neuropathy Restless leg syndrome Schwannoma REMOVED BY DR. GROSSMAN MARCH 2018 Stroke 7 YEARS AGO (LEFT SIDE WEAKNESS/LEFT EYE DROOPING) > follows with a neurologist unsure of name Suicidal ideation resolved per pt Tumor LEFT FEMUR (BENIGN) 2 TUMORS REMOVED > several yrs ago Vulvitis resolved per pt Surgical History Family history of reaction to anesthesia BROTHER-NAUSEA H/O blepharoplasty RT/LEFT History of anesthesia reaction SLOW TO WAKE UP History of cardiac cath March 2022, [facility] > no stents/ just check up per pt History of cholecystectomy History of colonoscopy History of esophagogastroduodenoscopy (EGD) History of neck surgery anterior cervical discectomy with bilateral foraminotomies C6-7. #2 anterior cervical arthrodesis C6-7. #3 placement of titanium 9.9 mm cage filled with DBM and C6-7. #4 occasional hernandez plate and screws across C6-7 >> ROM no limitations History of surgery robot-assist left thorascopic resection of schwannoma from left upper mediastinum. 03/16/2018. SANG. A line. No issues. History of thyroidectomy, total History of tonsillectomy History of tooth extraction S/P LASIK surgery of both eyes Status post hysteroscopic ablation of endometrium Family History Grandmother (Maternal) Family history of diabetes mellitus Mother Ovarian cancer Father Myocardial infarction Social History Smoking Status: Never smoker Second Hand Exposure: Yes; Hx Alcohol Use: No Hx Substance Use: No Preferred Language: Kosovan Communication Ability: Effective Roll Wrapper Required: No Beliefs That Will Affect Care: Hoahaoism Hoahaoism Beliefs: Anglican marital status: / Current Living Situation: Alone How many Children do You have: 2 Feels Safe at Home: Yes Assistive Devices: None Allergies Allergies Allergy/AdvReac Type Severity Reaction Status Date / Time adhesive tape Allergy Mild PER PT Verified 12/02/22 21:16 "GLUE ON TAPE"--SKIN IRRITATION Home Meds Home Medications Medication Instructions Recorded Confirmed aspirin 81 mg tablet,delayed 81 mg PO QAM 02/18/19 12/02/22 release omeprazole 20 mg tablet,delayed 20 mg PO BID 02/18/19 12/02/22 release amlodipine 2.5 mg tablet 2.5 mg PO QAM 03/27/19 12/02/22 gabapentin 100 mg capsule 100 mg PO TID 07/21/19 12/02/22 metoprolol succinate 25 mg 25 mg PO QAM 05/24/21 12/02/22 tablet,extended release 24 hr rosuvastatin 40 mg tablet 40 mg PO HS 05/24/21 12/02/22 clonazepam 0.5 mg tablet 0.5 mg PO BID PRN Anxiety 12/30/21 12/02/22 insulin pump cart,cont inf,BT 12/30/21 06/15/22 (Omnipod Dash Pods (Gen 4) subcutaneous cartridge) levothyroxine 150 mcg tablet 150 mcg PO QAM 12/30/21 12/02/22 (Synthroid) trazodone 50 mg tablet 50 mg PO HS 05/29/22 12/02/22 Striction D 1 tab PO BID 12/02/22 12/02/22 desvenlafaxine succinate 25 mg 25 mg PO QAM 12/02/22 12/02/22 tablet,extended release 24 hr duloxetine 60 mg capsule,delayed 60 mg PO QAM 12/02/22 12/02/22 release insulin aspart U-100 100 unit/mL 20 unit subcut TIDM 12/02/22 12/02/22 (3 mL) subcutaneous pen (Novolog FlexPen U-100 Insulin aspart) insulin glargine 100 unit/mL 30 unit subcut HS 12/02/22 12/02/22 subcutaneous solution (Lantus U-100 Insulin) melatonin 10 mg tablet 10 mg PO HS 12/02/22 12/02/22 metformin 1,000 mg tablet,extended 1,000 mg PO BIDM 12/02/22 12/02/22 release 24hr Results & Data (ED) Vital Signs Vital Signs - 24 hr 12/02/22 19:32 12/02/22 19:58 12/02/22 19:58 Temperature 36.6 C Temperature Source Oral Pulse Rate 76 Pulse Rate [Apical] 74 Pulse Rhythm [Apical] Regular Pulse Strength [Apical] Normal Respiratory Rate 18 Respiratory Effort / Characteristics Non-Labored Respiratory Depth Normal Respiratory Pattern Regular Blood Pressure 141/83 H Blood Pressure [Right Arm] 141/83 H Blood Pressure Mean 102 Blood Pressure Mean [Right Arm] 102 Blood Pressure Position [Right Arm] Lying Pulse Oximetry 95 96 Oxygen Delivery Method Room Air Room Air Room Air Sepsis Recent Fever Within 48 Hours No Sepsis New/Unexplained Change in Mental Status No Sepsis Action Taken by Nursing No Action Required 12/02/22 19:58 12/02/22 22:44 Temperature Temperature Source Pulse Rate 79 Pulse Rate [Apical] 77 Pulse Rhythm [Apical] Regular Pulse Strength [Apical] Normal Respiratory Rate 18 18 Respiratory Effort / Characteristics Non-Labored Respiratory Depth Normal Respiratory Pattern Regular Blood Pressure Blood Pressure [Right Arm] 126/61 Blood Pressure Mean Blood Pressure Mean [Right Arm] 82 Blood Pressure Position [Right Arm] Pulse Oximetry 96 94 Oxygen Delivery Method Room Air Room Air Sepsis Recent Fever Within 48 Hours Sepsis New/Unexplained Change in Mental Status Sepsis Action Taken by [facility] Medications Current Medication List: was personally reviewed by me Laboratory Data Attestation: I reviewed the patient's lab results. 12/02/22 19:30 12/02/22 19:30 Lab Results 12/02/22 12/02/22 12/02/22 Range/Units 19:30 19:30 19:30 WBC 9.38 (4.8-10.8) K/ul RBC 4.79 (4.20-5.40) M/uL Hgb 13.4 (12.0-16.0) g/dl Hct 40.3 (37.0-47.0) % MCV 84.1 (80.0-100.0) fL MCH 28.0 (25.0-34.0) pg MCHC 33.3 (32.0-36.0) g/dL RDW Std Deviation 40.0 (36.4-46.3) fL RDW Coeff of Daphney 13.1 (11.5-14.5) % Plt Count 252 (130-400) K/uL MPV 10.0 (9.4-12.4) fL Immature Gran % (Auto) 0.3 % Neut % (Auto) 50.9 % Lymph % (Auto) 37.8 % [place] % (Auto) 9.1 % Eos % (Auto) 1.3 % Baso % (Auto) 0.6 % Neut # (Auto) 4.77 (1.40-6.50) K/uL Lymph # (Auto) 3.55 H (1.2-3.4) K/uL [place] # (Auto) 0.85 H (0.11-0.59) K/uL Eos # (Auto) 0.12 (0-0.50) K/uL Baso # (Auto) 0.06 (0-0.2) K/uL Immature Gran # (Auto) 0.03 (0.01-0.20) K/uL Sodium 134 L (136-145) mmol/L Potassium 4.0 (3.5-5.1) mmol/L Chloride 96 L (98-107) mmol/L Carbon Dioxide 28 (21-32) mmol/L Anion Gap 10 (3-11) BUN 17 (6-23) mg/dl Creatinine 0.92 (0.6-1.2) mg/dl Est Cr Clr Drug Dosing 75.2 ml/min Est GFR ( Amer) 79.0 ml/min Est GFR (Non-Af Amer) 68.2 ml/min BUN/Creatinine Ratio 18.5 (10-20) Glucose 265 H (70-99(Fasting)) mg/dl Lactate (0.4-2.0) mmol/L Calcium 9.6 (8.5-10.1) mg/dl Magnesium 1.6 L (1.7-2.4) mg/dl Total Bilirubin 0.5 (0.2-1.0) mg/dl AST 18 (13-39) U/L ALT 20 (7-52) U/L Alkaline Phosphatase 60 (34-104) U/L Troponin I High Sens 36.0 H (0-14) pg/ml Total Protein 7.3 (6.0-8.3) gm/dl Albumin 4.4 (3.4-5.0) gm/dl Globulin 2.9 (2.5-4.0) gm/dl Albumin/Globulin Ratio 1.5 (0.9-2) TSH 1.088 (0.300-4.500) uIu/ml Urine Color Urine Appearance (Clear) Urine pH (4.5-7.5) Ur Specific [place] (1.000-1.030) Urine Protein (Negative) Urine Glucose (UA) (Negative) Urine Ketones (Negative) Urine Blood (Negative) Urine Nitrite (Negative) Urine Bilirubin (Negative) Urine Urobilinogen (Negative) Ur Leukocyte Esterase (Negative) Urine WBC (Auto) (0-5) /hpf Urine RBC (Auto) (0-4) /hpf U Hyaline Cast (Auto) (0-5) /lpf U Epithel Cells (Auto) (0-5) /lpf Urine Bacteria (Auto) (Negative) Urine Opiates Screen (Neg) Ur Methadone, Qual (Neg) Urine Barbiturates (Neg) Ur Phencyclidine (PCP) (Neg) U Amphetamin/Meth Scrn (Neg) MDMA (Ecstasy) Screen (Neg) U Benzodiazepines Scrn (Neg) Ur Cocaine Metabolite (Neg) U Marijuana (THC) Screen (Neg) Ethyl Alcohol mg/dL (<10.0) mg/dl SARS-CoV-2 (PCR) (Negative) Influenza Type A (PCR) (Neg) Influenza Type B (PCR) (Neg) RSV (RT-PCR) (Neg) 12/02/22 12/02/22 12/02/22 Range/Units 19:30 19:59 20:04 WBC (4.8-10.8) K/ul RBC (4.20-5.40) M/uL Hgb (12.0-16.0) g/dl Hct (37.0-47.0) % MCV (80.0-100.0) fL MCH (25.0-34.0) pg MCHC (32.0-36.0) g/dL RDW Std Deviation (36.4-46.3) fL RDW Coeff of Daphney (11.5-14.5) % Plt Count (130-400) K/uL MPV (9.4-12.4) fL Immature Gran % (Auto) % Neut % (Auto) % Lymph % (Auto) % [place] % (Auto) % Eos % (Auto) % Baso % (Auto) % Neut # (Auto) (1.40-6.50) K/uL Lymph # (Auto) (1.2-3.4) K/uL [place] # (Auto) (0.11-0.59) K/uL Eos # (Auto) (0-0.50) K/uL Baso # (Auto) (0-0.2) K/uL Immature Gran # (Auto) (0.01-0.20) K/uL Sodium (136-145) mmol/L Potassium (3.5-5.1) mmol/L Chloride (98-107) mmol/L Carbon Dioxide (21-32) mmol/L Anion Gap (3-11) BUN (6-23) mg/dl Creatinine (0.6-1.2) mg/dl Est Cr Clr Drug Dosing ml/min Est GFR ( Amer) ml/min Est GFR (Non-Af Amer) ml/min BUN/Creatinine Ratio (10-20) Glucose (70-99(Fasting)) mg/dl Lactate 3.5 H* (0.4-2.0) mmol/L Calcium (8.5-10.1) mg/dl Magnesium (1.7-2.4) mg/dl Total Bilirubin (0.2-1.0) mg/dl AST (13-39) U/L ALT (7-52) U/L Alkaline Phosphatase (34-104) U/L Troponin I High Sens (0-14) pg/ml Total Protein (6.0-8.3) gm/dl Albumin (3.4-5.0) gm/dl Globulin (2.5-4.0) gm/dl Albumin/Globulin Ratio (0.9-2) TSH (0.300-4.500) uIu/ml Urine Color Urine Appearance (Clear) Urine pH (4.5-7.5) Ur Specific [place] (1.000-1.030) Urine Protein (Negative) Urine Glucose (UA) (Negative) Urine Ketones (Negative) Urine Blood (Negative) Urine Nitrite (Negative) Urine Bilirubin (Negative) Urine Urobilinogen (Negative) Ur Leukocyte Esterase (Negative) Urine WBC (Auto) (0-5) /hpf Urine RBC (Auto) (0-4) /hpf U Hyaline Cast (Auto) (0-5) /lpf U Epithel Cells (Auto) (0-5) /lpf Urine Bacteria (Auto) (Negative) Urine Opiates Screen (Neg) Ur Methadone, Qual (Neg) Urine Barbiturates (Neg) Ur Phencyclidine (PCP) (Neg) U Amphetamin/Meth Scrn (Neg) MDMA (Ecstasy) Screen (Neg) U Benzodiazepines Scrn (Neg) Ur Cocaine Metabolite (Neg) U Marijuana (THC) Screen (Neg) Ethyl Alcohol mg/dL < 10.0 (<10.0) mg/dl SARS-CoV-2 (PCR) NEGATIVE (Negative) Influenza Type A (PCR) Negative (Neg) Influenza Type B (PCR) Negative (Neg) RSV (RT-PCR) Negative (Neg) 12/02/22 12/02/22 Range/Units 20:10 20:10 WBC (4.8-10.8) K/ul RBC (4.20-5.40) M/uL Hgb (12.0-16.0) g/dl Hct (37.0-47.0) % MCV (80.0-100.0) fL MCH (25.0-34.0) pg MCHC (32.0-36.0) g/dL RDW Std Deviation (36.4-46.3) fL RDW Coeff of Daphney (11.5-14.5) % Plt Count (130-400) K/uL MPV (9.4-12.4) fL Immature Gran % (Auto) % Neut % (Auto) % Lymph % (Auto) % [place] % (Auto) % Eos % (Auto) % Baso % (Auto) % Neut # (Auto) (1.40-6.50) K/uL Lymph # (Auto) (1.2-3.4) K/uL [place] # (Auto) (0.11-0.59) K/uL Eos # (Auto) (0-0.50) K/uL Baso # (Auto) (0-0.2) K/uL Immature Gran # (Auto) (0.01-0.20) K/uL Sodium (136-145) mmol/L Potassium (3.5-5.1) mmol/L Chloride (98-107) mmol/L Carbon Dioxide (21-32) mmol/L Anion Gap (3-11) BUN (6-23) mg/dl Creatinine (0.6-1.2) mg/dl Est Cr Clr Drug Dosing ml/min Est GFR ( Amer) ml/min Est GFR (Non-Af Amer) ml/min BUN/Creatinine Ratio (10-20) Glucose (70-99(Fasting)) mg/dl Lactate (0.4-2.0) mmol/L Calcium (8.5-10.1) mg/dl Magnesium (1.7-2.4) mg/dl Total Bilirubin (0.2-1.0) mg/dl AST (13-39) U/L ALT (7-52) U/L Alkaline Phosphatase (34-104) U/L Troponin I High Sens (0-14) pg/ml Total Protein (6.0-8.3) gm/dl Albumin (3.4-5.0) gm/dl Globulin (2.5-4.0) gm/dl Albumin/Globulin Ratio (0.9-2) TSH (0.300-4.500) uIu/ml Urine Color Yellow Urine Appearance Clear (Clear) Urine pH 5.5 (4.5-7.5) Ur Specific [place] 1.023 (1.000-1.030) Urine Protein Trace H (Negative) Urine Glucose (UA) 3+ H (Negative) Urine Ketones Negative (Negative) Urine Blood Negative (Negative) Urine Nitrite Negative (Negative) Urine Bilirubin Negative (Negative) Urine Urobilinogen Negative (Negative) Ur Leukocyte Esterase Negative (Negative) Urine WBC (Auto) 1-5 (0-5) /hpf Urine RBC (Auto) 0-4 (0-4) /hpf U Hyaline Cast (Auto) 0 (0-5) /lpf U Epithel Cells (Auto) 10-20 H (0-5) /lpf Urine Bacteria (Auto) Negative (Negative) Urine Opiates Screen Neg (Neg) Ur Methadone, Qual Neg (Neg) Urine Barbiturates Neg (Neg) Ur Phencyclidine (PCP) Neg (Neg) U Amphetamin/Meth Scrn Neg (Neg) MDMA (Ecstasy) Screen Pos H (Neg) U Benzodiazepines Scrn Neg (Neg) Ur Cocaine Metabolite Neg (Neg) U Marijuana (THC) Screen Neg (Neg) Ethyl Alcohol mg/dL (<10.0) mg/dl SARS-CoV-2 (PCR) (Negative) Influenza Type A (PCR) (Neg) Influenza Type B (PCR) (Neg) RSV (RT-PCR) (Neg) Administered Medications Discontinued Medications Sodium Chloride (Nss 1000ml) 1,000 mls @ 999 mls/hr IV .Q1H1M WILLIAM Stop: 12/02/22 20:45 Last Infusion: 12/02/22 21:26 Dose: 0 mls/hr Documented By: Admin: 12/02/22 20:22 Dose: 999 mls/hr Documented By: MES Magnesium Sulfate/Dextrose (Magnesium Sulfate / D5w) 1 gm in 100 mls @ 100 mls/hr IV NOW STA Stop: 12/02/22 21:15 Last Infusion: 12/02/22 21:26 Dose: 0 mls/hr Documented By: Admin: 12/02/22 20:22 Dose: 100 mls/hr Documented By: MES Sodium Chloride (Nss 1000ml) 1,000 mls @ 999 mls/hr IV .Q1H1M ONE Stop: 12/02/22 22:06 Last Infusion: 12/02/22 22:21 Dose: 0 mls/hr Documented By: Admin: 12/02/22 21:26 Dose: 999 mls/hr Documented By: RSL Imaging Data Radiologist's Impression: Chest X-Ray 12/02/22 19:40 XR chest 1V portable HISTORY: 57 years-old Female weakness acute weakness COMPARISON: Chest radiograph June 15, 2022 TECHNIQUE: AP view of the chest FINDINGS: Cardiac silhouette is enlarged. No pneumothorax, pleural effusion, airspace consolidation or overt pulmonary edema. Degenerative changes of the shoulders and spine. Surgical clips of the left axilla. Cervical spinal fusion hardware. IMPRESSION: Cardiomegaly without acute process. ACT 112: Negative or not required by law. The above report was generated using voice recognition software. It may contain grammatical, syntax or spelling errors. Electronically signed by: Deepak Martinez M.D. 12/02/2022 8:[address] 12/02/22 19:40 CT head/brain wo con CLINICAL HISTORY: 57 years-old Female with confusion. Acutely altered mental status with confusion TECHNIQUE: Multiple axial CT images of the head were obtained without contrast. A dose lowering technique was utilized adhering to the principles of ALARA. CT DOSE: 1048.27 mGy.cm COMPARISON: Head CT June 15, 2022 FINDINGS: No acute intracranial hemorrhage, midline shift, intracranial mass, hydrocephalus, territorial ischemia or abnormal extra-axial collection. Mildly motion degraded exam. The calvarium is intact. Prior bilateral lens repair. The paranasal sinuses, mastoid air cells, and middle ear cavities are clear. IMPRESSION: No acute intracranial abnormality. ACT 112: Negative or not required by law. The above report was generated using voice recognition software. It may contain grammatical, syntax or spelling errors. Electronically signed by: Deepak Martinez M.D. 12/02/2022 8:44 PM Discharge Plan Visit Data Chief Complaint: Altered Mental Status ED Provider: Odilon Sierra Discharge Problem: Acute confusion, Syncope, Elevated lactic acid level, Hypomagnesemia Patient Disposition: Admitted As Inpatient Condition: Fair Forms Stand Alone Forms: [facility] [employer] Prescriptions Prescriptions: No Action amlodipine 2.5 mg Tablet 2.5 mg PO QAM aspirin 81 mg Tablet,Delayed Release (Dr/Ec) 81 mg PO QAM omeprazole 20 mg Tablet,Delayed Release (Dr/Ec) 20 mg PO BID gabapentin 100 mg Capsule 100 mg PO TID metoprolol succinate 25 mg Tablet Extended Release 24 Hr 25 mg PO QAM rosuvastatin 40 mg Tablet 40 mg PO HS clonazepam 0.5 mg tablet 0.5 mg PO BID PRN (Reason: Anxiety) Rx Instructions: PER PT "HAVE BEEN OUT FOR SOME TIME, CAN'T REMEMBER WHEN TAKEN LAST". levothyroxine [Synthroid] 150 mcg Tablet 150 mcg PO QAM (DME) Omnipod Dash Pods (Gen 4) Cartridge SUBCUT trazodone 50 mg Tablet 50 mg PO HS insulin glargine [Lantus U-100 Insulin] 100 unit/mL Solution 30 unit SUBCUT HS Rx Instructions: PER PT "DID NOT SEND NEEDLES FOR PENS, UNABLE TO TAKE FOR ABOUT 5 DAYS". insulin aspart U-100 [Novolog FlexPen U-100 Insulin] 100 unit/mL (3 mL) Insulin Pen 20 unit SUBCUT TIDM Rx Instructions: PER PT "DID NOT SEND NEEDLES FOR PENS, UNABLE TO TAKE FOR ABOUT 5 DAYS". duloxetine 60 mg Capsule,Delayed Release(Dr/Ec) 60 mg PO QAM Rx Instructions: PER PT "HAVE BEEN OUT FOR SOME TIME, CAN'T REMEMBER WHEN TAKEN LAST". melatonin 10 mg Tablet 10 mg PO HS desvenlafaxine succinate 25 mg Tablet Extended Release 24 Hr 25 mg PO QAM Rx Instructions: PER PT "HAVE BEEN OUT FOR SOME TIME, CAN'T REMEMBER WHEN TAKEN LAST". Striction D 1 tab PO BID metformin 1,000 mg tablet extended release 24 hr 1,000 mg PO BIDM Referrals Referrals: Ivonne French PA-C [Primary Care Provider] -
[2022-12-02 19:57] LABS: Basophils # (auto) 0.06 K/uL (0-0.2); Basophils % (auto) 0.6 %; Eosinophils # (auto) 0.12 K/uL (0-0.50); Eosinophils % (auto) 1.3 %; Hematocrit (blood only) 40.3 % (37.0-47.0); Hemoglobin 13.4 g/dl (12.0-16.0); Immature Granulocytes # (auto) 0.03 K/uL (0.01-0.20); Immature Granulocytes % (auto) 0.3 %; Lymphocytes # (auto) 3.55 K/uL (1.2-3.4); Lymphocytes % (auto) 37.8 %; Mean Corpuscular Hgb Conc 33.3 g/dL (32.0-36.0); Mean Corpuscular Volume 84.1 fL (80.0-100.0); Monocytes # (auto) 0.85 K/uL (0.11-0.59); Monocytes % (auto) 9.1 %; Neutrophils # (auto) 4.77 K/uL (1.40-6.50); Neutrophils % (auto) 50.9 %; Platelet Count 252 K/uL (130-400); RDW Coefficient of Variation 13.1 % (11.5-14.5); Red Blood Count 4.79 M/uL (4.20-5.40); White Blood Count 9.38 K/ul (4.8-10.8)
--- NOTE | 2022-12-02 20:08 | XRay Report ---
XR chest 1V portable HISTORY: 57 years-old Female weakness acute weakness COMPARISON: Chest radiograph June 15, 2022 TECHNIQUE: AP view of the chest FINDINGS: Cardiac silhouette is enlarged. No pneumothorax, pleural effusion, airspace consolidation or overt pu lmonary edema. Degenerative changes of the shoulders and spine. Surgical clips of the left axilla. Ce rvical spinal fusion hardware. IMPRESSION: Cardiomegaly without acute process. ACT 112: Negative or not required by law. The above report was generated using voice recognition software. It may contain grammatical, syntax o r spelling errors. Electronically signed by: Deepak Martinez M.D. 12/02/2022 8:06 PM
[2022-12-02 20:13] LABS: Albumin Globulin Ratio 1.5 (0.9-2); Albumin Level 4.4 gm/dl (3.4-5.0); BUN Creatinine Ratio 18.5 (10-20); Bilirubin,Total 0.5 mg/dl (0.2-1.0); Calcium 9.6 mg/dl (8.5-10.1); Creatinine Clr Calc Pharmacy 75.2 ml/min; Est GFR (Non-African American) 68.2 ml/min; Globulin 2.9 gm/dl (2.5-4.0); Magnesium 1.6 mg/dl (1.7-2.4); Total Protein 7.3 gm/dl (6.0-8.3)
[2022-12-02] MEDS ORDERED: MAGNESIUM SULFATE / D5W 1 GM/100 ML BAG IV STA (20:16)
[2022-12-02 20:33] LABS: Appearance Urine Clear (Clear); Bacteria Urine Automated Negative (Negative); Bilirubin Urine Negative (Negative); Blood Urine Negative (Negative); Cast Urine Automated 0 /lpf (0-5); Color Urine Yellow; Glucose Urine UA 3+ (Negative); Ketones Urine Negative (Negative); Leukocyte Esterase Urine Negative (Negative); Nitrite Urine Negative (Negative); Protein Urine Trace (Negative); RBC Urine Automated 0-4 /hpf (0-4); Specific Gravity Urine 1.023 (1.000-1.030); Urobilinogen Urine Negative (Negative); pH Urine 5.5 (4.5-7.5)
--- NOTE | 2022-12-02 20:46 | CT Scan Report ---
CT head/brain wo con CLINICAL HISTORY: 57 years-old Female with confusion. Acutely altered mental status with confusion TECHNIQUE: Multiple axial CT images of the head were obtained without contrast. A dose lowering tech nique was utilized adhering to the principles of ALARA. CT DOSE: 1048.27 mGy.cm COMPARISON: Head CT June 15, 2022 FINDINGS: No acute intracranial hemorrhage, midline shift, intracranial mass, hydrocephalus, territorial ischem ia or abnormal extra-axial collection. Mildly motion degraded exam. The calvarium is intact. Prior bilateral lens repair. The paranasal sinuses, mastoid air cells, and m iddle ear cavities are clear. IMPRESSION: No acute intracranial abnormality. ACT 112: Negative or not required by law. The above report was generated using voice recognition software. It may contain grammatical, syntax o r spelling errors. Electronically signed by: Deepak Martinez M.D. 12/02/2022 8:44 PM
[2022-12-02] MEDS ORDERED: SODIUM CHLORIDE 0.9% 1000ML 1,000 ML IV ONE (21:06)
[2022-12-02 21:14] LABS: Influenza A virus by PCR Negative (Neg); Influenza B virus by PCR Negative (Neg); RSV by PCR Negative (Neg); SARS CoV2 RNA(COVID-19) Ceph NEGATIVE (Negative)
[2022-12-02 21:25] LABS: Amphetamines+Metham, Urine Neg (Neg); Barbiturates, Urine Neg (Neg); Benzodiazepine, Urine Neg (Neg); Cocaine, Urine Neg (Neg); MDMA (Ecstacy), Urine Pos (Neg); Methadone, Urine Neg (Neg); Opiate, Urine Neg (Neg); Phencyclidine, Urine Neg (Neg)
[2022-12-02] MEDS ORDERED: LACTATED RINGER'S 1,000 ML IV ONE (23:19)
--- NOTE | 2022-12-03 01:54 | History & Physical Report ---
Date of Service December 03, 2022 Assessment & Plan (1) Chest pain: Plan: Left-sided chest pain with troponin elevation Possible NSTEMI Syncope Differentials include : Cardiac pathology Orthostasis given possible autonomic neuropathy from poorly controlled DM Seizures given history CVA and incontinence symptoms Encephalopathy secondary to clinical dehydration Home neuropsychotropic meds contributory, hx anxiety/mood disorder/OCD. Lactic acidosis secondary to clinical dehydration hypertension, stable hyperlipidemia on statin Rx DM2 insulin requiring, suboptimal control as of recent hemoglobin A1c of 9 last September 2022 thyroid CA status post surgery postsurgical hypothyroidism, euthyroid as of today's TSH OBS PCU Aspirin for CAD prevention Follow troponin TTE, Cardiology consult Re: Chest pain with troponin elevation N.p.o. until patient seen by cardiology in anticipation of ischemic work-up Check orthostatic vitals, EEG in addition to TTE for syncopal work-up IVF, follow lactic acid Hold home neuropsychotropic medications until patient mentation back to baseline Basal bolus insulin adjusted for n.p.o. status, ISS BG goal 1 10-1 40 PT OT eval once medically stable. DVT prophylaxis per Lovenox subcu Full code Text document was generated using [employer] voice recognition software. It may contain grammatical or spelling errors. Kindly contact undersigned for clarification of any documentation item in question. History of Present Illness Chief Complaint: Confusion as per records Primary Care Provider: Ivonne French PA-C History obtained from patient and records. Patient is a fair historian. Medical history significant for CVA, hypertension, hyperlipidemia, DM2 insulin requiring, thyroid CA status post surgery, postsurgical hypothyroidism, anxiety/mood disorder/OCD. Last confinement June 2022 for syncope attributed to UTI and hypotension. Patient ran out of insulin supplies about 2 weeks ago. Poor appetite the last few days. Shaky and unstable on her feet. Some nausea symptoms without abdominal pain. Intermittent left-sided pleuritic chest pain complaints with shortness of breath the last 2 days. No cough symptoms. Patient seen at urgent care center yesterday for evaluation. Patient noted to be confused and distractible. Transient syncopal event witnessed by outpatient provider lasting 10 seconds while patient's BP was being checked.. No witnessed G TC seizures as per outpatient provider note. Urinary incontinence noted. Patient admits to depression but denies suicidality. SBP 140s and BSG BSG 245 at urgent care center. Patient brought by EMS to ER for evaluation. Medical History as above Surgical History : Toe amputation left, laryngoplasty, thyroidectomy, blepharoplasty, cataract surgeries, cholecystectomy Family History : Heart disease, ovarian cancer, MS, DM Personal/Social history : Non-smoker, no EtOH intake, disabled Allergies Allergy/AdvReac Type Severity Reaction Status Date / Time adhesive tape Allergy Mild PER PT Verified 12/02/22 21:16 "GLUE ON TAPE"--SKIN IRRITATION Home Medications Medication Instructions Recorded Confirmed Type aspirin 81 mg tablet,delayed 81 mg PO QAM 02/18/19 12/02/22 History release omeprazole 20 mg tablet,delayed 20 mg PO BID 02/18/19 12/02/22 History release amlodipine 2.5 mg tablet 2.5 mg PO QAM 03/27/19 12/02/22 History gabapentin 100 mg capsule 100 mg PO TID 07/21/19 12/02/22 History metoprolol succinate 25 mg 25 mg PO QAM 05/24/21 12/02/22 History tablet,extended release 24 hr rosuvastatin 40 mg tablet 40 mg PO HS 05/24/21 12/02/22 History clonazepam 0.5 mg tablet 0.5 mg PO BID PRN Anxiety 12/30/21 12/02/22 History insulin pump cart,cont inf,BT 12/30/21 06/15/22 History (Omnipod Dash Pods (Gen 4) subcutaneous cartridge) levothyroxine 150 mcg tablet 150 mcg PO QAM 12/30/21 12/02/22 History (Synthroid) trazodone 50 mg tablet 50 mg PO HS 05/29/22 12/02/22 History Striction D 1 tab PO BID 12/02/22 12/02/22 History desvenlafaxine succinate 25 mg 25 mg PO QAM 12/02/22 12/02/22 History tablet,extended release 24 hr duloxetine 60 mg capsule,delayed 60 mg PO QAM 12/02/22 12/02/22 History release insulin aspart U-100 100 unit/mL 20 unit subcut TIDM 12/02/22 12/02/22 History (3 mL) subcutaneous pen (Novolog FlexPen U-100 Insulin aspart) insulin glargine 100 unit/mL 30 unit subcut HS 12/02/22 12/02/22 History subcutaneous solution (Lantus U-100 Insulin) melatonin 10 mg tablet 10 mg PO HS 12/02/22 12/02/22 History metformin 1,000 mg tablet,extended 1,000 mg PO BIDM 12/02/22 12/02/22 History release 24hr Past Med/Surg History Medical History Amputation of toe Anxiety Benign neoplasm of vulva of clitoris CAD (coronary artery disease) Diabetes mellitus, type II insulin pump GERD (gastroesophageal reflux disease) History of thyroid cancer with surgical intervention Hyperglycemia Hypertension Myocardial Infarction 12 YEARS AGO (FOLLOWED BY DR. DODSON) VERBALIZED NO HEART CATH DONE Paronychia of great toe of right foot Peripheral neuropathy Restless leg syndrome Schwannoma REMOVED BY DR. GROSSMAN MARCH 2018 Stroke 7 YEARS AGO (LEFT SIDE WEAKNESS/LEFT EYE DROOPING) > follows with a neurologist unsure of name Suicidal ideation resolved per pt Tumor LEFT FEMUR (BENIGN) 2 TUMORS REMOVED > several yrs ago Vulvitis resolved per pt Surgical History Family history of reaction to anesthesia BROTHER-NAUSEA H/O blepharoplasty RT/LEFT History of anesthesia reaction SLOW TO WAKE UP History of cardiac cath March 2022, [facility] > no stents/ just check up per pt History of cholecystectomy History of colonoscopy History of esophagogastroduodenoscopy (EGD) History of neck surgery anterior cervical discectomy with bilateral foraminotomies C6-7. #2 anterior cervical arthrodesis C6-7. #3 placement of titanium 9.9 mm cage filled with DBM and C6-7. #4 occasional hernandez plate and screws across C6-7 >> ROM no limitations History of surgery robot-assist left thorascopic resection of schwannoma from left upper mediastinum. 03/16/2018. SANG. A line. No issues. History of thyroidectomy, total History of tonsillectomy History of tooth extraction S/P LASIK surgery of both eyes Status post hysteroscopic ablation of endometrium Family History Grandmother (Maternal) Family history of diabetes mellitus Mother Ovarian cancer Father Myocardial infarction Social History Smoking Status: Never smoker Second Hand Exposure: No; Do You Dip or Chew Tobacco: No; Tobacco Cessation Education Requested by Patient: No Hx Alcohol Use: No Hx Substance Use: No Preferred Language: German Communication Ability: Effective Profile Trimmer Required: No Beliefs That Will Affect Care: None marital status: / Current Living Situation: Alone How many Children do You have: 2 Other Information That Helps Us Care for You: No Feels Safe at Home: Yes Safety Concerns: Feels Safe At This Time Assistive Devices: Denture - Upper, Denture - Lower and Glasses Review of Systems Review of Systems: As per HPI, all other systems reviewed and negative Physical Exam Physical Exam: GENERAL: Comfortable, obese, slow to respond to some questions, no respiratory distress SKIN: Normal color, warm HEENT: [place] palpebral conjunctivae, no ptosis, dry buccal mucosa NECK : Supple, short neck, no tenderness CHEST : Decreased breath sounds, no tenderness HEART : RRR, no obvious murmurs ABDOMEN: Some distention, nontender EXTREMITIES : No LE swelling/tenderness, no other conspicuous deformities noted NEUROLOGIC : Coherent but slow to respond to some questions, no facial asymmetry, gait and stance not assessed Results & Data Results & Data ([facility]) Vital Signs (Past 12 Hours) Vital Signs Temp Pulse Pulse Resp BP BP Pulse Ox 12/03/22 00:00 73 18 130/72 97 12/02/22 22:44 77 18 126/61 94 12/02/22 19:58 79 18 96 12/02/22 19:58 74 18 141/83 H 96 12/02/22 19:58 12/02/22 19:32 36.6 C 76 141/83 H 95 O2 Del Method 12/03/22 00:00 Room Air 12/02/22 22:44 Room Air 12/02/22 19:58 Room Air 12/02/22 19:58 Room Air 12/02/22 19:58 Room Air 12/02/22 19:32 Room Air Laboratory Results Laboratory Results WBC 9.38 K/ul (4.8-10.8) 12/02/22 19:30 RBC 4.79 M/uL (4.20-5.40) 12/02/22 19:30 Hgb 13.4 g/dl (12.0-16.0) 12/02/22 19:30 Hct 40.3 % (37.0-47.0) 12/02/22: MCV 84.1 fL (80.0-100.0) 12/02/22: MCH 28.0 pg (25.0-34.0) 12/02/22 MCHC 33.3 g/dL (32.0-36.0) 12/02/22 RDW Std Deviation 40.0 fL (36.4-46.3) 12/02/22 RDW Coeff of Daphney 13.1 % (11.5-14.5) 12/02/22 Plt Count 252 K/uL (130-400) 12/02/22 MPV 10.0 fL (9.4-12.4) 12/02/22 Immature Gran % (Auto) 0.3 % 12/02/22: Neut % (Auto) 50.9 % 12/02/22: Lymph % (Auto) 37.8 % 12/02/22: [place] % (Auto) 9.1 % 12/02/22: Eos % (Auto) 1.3 % 12/02/22: Baso % (Auto) 0.6 % 12/02/22: Neut # (Auto) 4.77 K/uL (1.40-6.50) 12/02/22: Lymph # (Auto) 3.55 K/uL (1.2-3.4) H 12/02/22: [place] # (Auto) 0.85 K/uL (0.11-0.59) H 12/02/22: Eos # (Auto) 0.12 K/uL (0-0.50) 12/02/22: Baso # (Auto) 0.06 K/uL (0-0.2) 12/02/22 Immature Gran # (Auto) 0.03 K/uL (0.01-0.20) 12/02/22 Sodium 134 mmol/L (136-145) L 12/02/22: Potassium 4.0 mmol/L (3.5-5.1) 12/02/22 Chloride 96 mmol/L (98-107) L 12/02/22 19:30 Carbon Dioxide 28 mmol/L (21-32) 12/02/22 19:30 Anion Gap 10 (3-11) 12/02/22 19:30 BUN 17 mg/dl (6-23) 12/02/22 19:30 Creatinine 0.92 mg/dl (0.6-1.2) 12/02/22 19:30 Est Cr Clr Drug Dosing 75.2 ml/min 12/02/22 19:30 Est GFR ( Amer) 79.0 ml/min 12/02/22 19:30 Est GFR (Non-Af Amer) 68.2 ml/min 12/02/22 19:30 BUN/Creatinine Ratio 18.5 (10-20) 12/02/22 19: Glucose 265 mg/dl (70-99(Fasting)) H 12/02/22 19:30 Lactate 3.2 mmol/L (0.4-2.0) H* 12/02/22 22:37 Calcium 9.6 mg/dl (8.5-10.1) 12/02/22 19: Magnesium 1.6 mg/dl (1.7-2.4) L 12/02/22 19:30 Total Bilirubin 0.5 mg/dl (0.2-1.0) 12/02/22 19:30 AST 18 U/L (13-39) 12/02/22 19:30 ALT 20 U/L (7-52) 12/02/22 19:30 Alkaline Phosphatase 60 U/L (34-104) 12/02/22 19:30 Troponin I High Sens 36.0 pg/ml (0-14) H 12/02/22 19:30 Total Protein 7.3 gm/dl (6.0-8.3) 12/02/22 19:30 Albumin 4.4 gm/dl (3.4-5.0) 12/02/22 19:30 Globulin 2.9 gm/dl (2.5-4.0) 12/02/22 19:30 Albumin/Globulin Ratio 1.5 (0.9-2) 12/02/22 19:30 TSH 1.088 uIu/ml (0.300-4.500) 12/02/22 19:30 Urine Color Yellow 12/02/22 20:10 Urine Appearance Clear (Clear) 12/02/22 20:10 Urine pH 5.5 (4.5-7.5) 12/02/22 20:10 Ur Specific [place] 1.023 (1.000-1.030) 12/02/22 20:10 Urine Protein Trace (Negative) H 12/02/22 20:10 Urine Glucose (UA) 3+ (Negative) H 12/02/22 20:10 Urine Ketones Negative (Negative) 12/02/22 20:10 Urine Blood Negative (Negative) 12/02/22 20:10 Urine Nitrite Negative (Negative) 12/02/22 20:10 Urine Bilirubin Negative (Negative) 12/02/22 20:10 Urine Urobilinogen Negative (Negative) 12/02/22 20:10 Ur Leukocyte Esterase Negative (Negative) 12/02/22 20:10 Urine WBC (Auto) 1-5 /hpf (0-5) 12/02/22 20:10 Urine RBC (Auto) 0-4 /hpf (0-4) 12/02/22 20:10 U Hyaline Cast (Auto) 0 /lpf (0-5) 12/02/22 20:10 U Epithel Cells (Auto) 10-20 /lpf (0-5) H 12/02/22 20:10 Urine Bacteria (Auto) Negative (Negative) 12/02/22 20:10 Urine Opiates Screen Neg (Neg) 12/02/22 20:10 Ur Methadone, Qual Neg (Neg) 12/02/22 20:10 Urine Barbiturates Neg (Neg) 12/02/22 20:10 Ur Phencyclidine (PCP) Neg (Neg) 12/02/22 20:10 U Amphetamin/Meth Scrn Neg (Neg) 12/02/22 20:10 MDMA (Ecstasy) Screen Pos (Neg) H 12/02/22 20:10 U Benzodiazepines Scrn Neg (Neg) 12/02/22 20:10 Ur Cocaine Metabolite Neg (Neg) 12/02/22 20:10 U Marijuana (THC) Screen Neg (Neg) 12/02/22 20:10 Ethyl Alcohol mg/dL < 10.0 mg/dl (<10.0) 12/02/22 19:30 SARS-CoV-2 (PCR) NEGATIVE (Negative) 12/02/22 20:04 Influenza Type A (PCR) Negative (Neg) 12/02/22 20:04 Influenza Type B (PCR) Negative (Neg) 12/02/22 20:04 RSV (RT-PCR) Negative (Neg) 12/02/22 20:04 Impressions Chest X-Ray 12/02/22 19:40 XR chest 1V portable HISTORY: 57 years-old Female weakness acute weakness COMPARISON: Chest radiograph June 15, 2022 TECHNIQUE: AP view of the chest FINDINGS: Cardiac silhouette is enlarged. No pneumothorax, pleural effusion, airspace consolidation or overt pulmonary edema. Degenerative changes of the shoulders and spine. Surgical clips of the left axilla. Cervical spinal fusion hardware. IMPRESSION: Cardiomegaly without acute process. ACT 112: Negative or not required by law. The above report was generated using voice recognition software. It may contain grammatical, syntax or spelling errors. Electronically signed by: Deepak Martinez M.D. 12/02/2022 8:[address] 12/02/22 19:40 CT head/brain wo con CLINICAL HISTORY: 57 years-old Female with confusion. Acutely altered mental status with confusion TECHNIQUE: Multiple axial CT images of the head were obtained without contrast. A dose lowering technique was utilized adhering to the principles of ALARA. CT DOSE: 1048.27 mGy.cm COMPARISON: Head CT June 15, 2022 FINDINGS: No acute intracranial hemorrhage, midline shift, intracranial mass, hydrocephalus, territorial ischemia or abnormal extra-axial collection. Mildly motion degraded exam. The calvarium is intact. Prior bilateral lens repair. The paranasal sinuses, mastoid air cells, and middle ear cavities are clear. IMPRESSION: No acute intracranial abnormality. ACT 112: Negative or not required by law. The above report was generated using voice recognition software. It may contain grammatical, syntax or spelling errors. Electronically signed by: Deepak Martinez M.D. 12/02/2022 8:[address] chest initial read: No evidence of PE. Surgical changes cervical spine. Steatosis liver. EKG as per my interpretation :Rate 80, NSR, normal axis, RBBB, T wave abnormalities inferior lateral leads
[2022-12-03] MEDS ORDERED: DEXTROSE 50% 50 ML SYRINGE IV PRN (03:07)
[2022-12-03] MEDS ORDERED: GLUCAGON FOR INJ 1 MG VIAL SQ PRN (03:07)
[2022-12-03] MEDS ORDERED: GLUCOSE 10 TAB/TUBE PO PRN (03:07)
[2022-12-03] MEDS ORDERED: CARBOHYDRATES FOR HYPOGLYCEMIA PO PRN (03:07)
[2022-12-03] MEDS ORDERED: GLUCOSE 40% GEL 15 GM TUBE PO PRN (03:07)
[2022-12-03] MEDS ORDERED: LANTUS PER UNIT CHARGE SQ SCH (03:09)
[2022-12-03] MEDS ORDERED: LANTUS PER UNIT CHARGE SQ STA (03:09)
[2022-12-03] MEDS ORDERED: PROMETHAZINE HCL 12.5 MG in SODIUM CHLORIDE 0.9% 50 ML IV PRN (03:11)
[2022-12-03 03:16] LABS: Partial Thromboplastin Time 27.1 Seconds (21.0-31.0)
[2022-12-03] MEDS ORDERED: OPTIRAY 320 500ml IV ONE (04:20)
[2022-12-03] MEDS: INSULIN ASPART PER UNIT SC SCH ×4 (04:59→21:28)
[2022-12-03] MEDS ORDERED: LACTATED RINGER'S 1,000 ML IV ONE (05:00)
[2022-12-03] MEDS ORDERED: NITROGLYCERIN SL 0.4 MG/TAB TAB SL PRN (05:21)
[2022-12-03] MEDS ORDERED: ACETAMINOPHEN 325 MG TAB PO PRN (05:21)
[2022-12-03] MEDS: LEVOTHYROXINE SODIUM 150 MCG TABLET PO SCH (06:21)
[2022-12-03 07:21] LABS: BUN Creatinine Ratio 16.7 (10-20); Calcium 8.7 mg/dl (8.5-10.1); Creatinine Clr Calc Pharmacy 82.4 ml/min; Est GFR (African American) 88.2 ml/min; Est GFR (Non-African American) 76.1 ml/min; Magnesium 1.7 mg/dl (1.7-2.4); Potassium 4.3 mmol/L (3.5-5.1)
[2022-12-03 07:30] LABS: Troponin I High Sensitivity 36.4 pg/ml (0-14)
--- NOTE | 2022-12-03 09:08 | Electrocardiogram Report ---
Test Reason : Blood Pressure : / mmHG Vent. Rate : 079 BPM Atrial Rate : 079 BPM P-R Int : 164 ms QRS Dur : 140 ms QT Int : 410 ms P-R-T Axes : 070 089 016 degrees QTc Int : 470 ms Poor data quality, interpretation may be adversely affected Normal sinus rhythm Right bundle branch block T wave abnormality, consider inferolateral ischemia Abnormal ECG When compared with ECG of 28-JUL-2022 15:40, Minimal criteria for Anterior infarct are no longer Present No significant change was found Confirmed by Randy Victor ([id number]) on 12/03/2022 9:07:46 AM Referred By: REFERRED SELF Confirmed By:Cedrick Victor
[2022-12-03 09:27] LABS: Basophils # (auto) 0.07 K/uL (0-0.2); Basophils % (auto) 0.9 %; Eosinophils # (auto) 0.07 K/uL (0-0.50); Eosinophils % (auto) 0.9 %; Hematocrit (blood only) 37.1 % (37.0-47.0); Hemoglobin 12.5 g/dl (12.0-16.0); Immature Granulocytes # (auto) 0.03 K/uL (0.01-0.20); Immature Granulocytes % (auto) 0.4 %; Lymphocytes # (auto) 2.02 K/uL (1.2-3.4); Lymphocytes % (auto) 27.2 %; Mean Corpuscular Hemoglobin 28.5 pg (25.0-34.0); Mean Corpuscular Hgb Conc 33.7 g/dL (32.0-36.0); Mean Corpuscular Volume 84.5 fL (80.0-100.0); Mean Platelet Volume 9.8 fL (9.4-12.4); Monocytes % (auto) 6.7 %; Neutrophils # (auto) 4.74 K/uL (1.40-6.50); Neutrophils % (auto) 63.9 %; Platelet Count 243 K/uL (130-400); RDW Coefficient of Variation 13.2 % (11.5-14.5); RDW Standard Deviation 40.4 fL (36.4-46.3); Red Blood Count 4.39 M/uL (4.20-5.40); White Blood Count 7.43 K/ul (4.8-10.8)
[2022-12-03] MEDS: amLODIPine BESYLATE 5 MG TAB PO SCH (09:37)
[2022-12-03] MEDS: ASPIRIN 81 MG ECTAB PO SCH (09:42)
[2022-12-03] MEDS: PANTOprazole 40 MG TAB PO SCH ×2 (09:43→20:10)
[2022-12-03] MEDS: METOPROLOL SUCC 25MG EXT REL TAB PO SCH (09:43)
[2022-12-03] MEDS: ENOXAPARIN INJ 40 MG/0.4 ML SYR SQ SCH (09:44)
--- NOTE | 2022-12-03 10:00 | CT Scan Report ---
CT angio chest PE protocol CLINICAL HISTORY: cp TECHNIQUE: Multidetector row helical CT of the chest was performed with angiographic protocol. Barb[place] l and sagittal reformations were obtained. Coronal and sagittal MIPS were obtained from the axial livan a set and were submitted for review. Automated dose lowering techniques and/or adjustment according to patient size were utilized for this exam. Comparison: Comparison is made to CT chest 06/16/2022 FINDINGS: Lungs and pleura: Dependent atelectasis is seen bilaterally. No suspicious pulmonary nodules. Heart and pericardium: Heart size is normal. No pericardial effusion. Vessels: No evidence of pulmonary embolism. Pulmonary trunk measures 31 mm. Mediastinum and laura: Unremarkable. Chest wall and lower neck: Unremarkable. Abdomen: Hepatic steatosis is noted. Bones: ACDF is partially visualized. Degenerative changes are seen in the thoracic spine. IMPRESSION: No pulmonary embolus is seen. ACT 112: Negative or not required by law. Electronically signed by: Ayaz Santana M.D. 12/03/2022 8:16 AM
--- NOTE | 2022-12-03 14:10 | Hospitalist Progress Note ---
Date of Service December 03, 2022 Assessment & Plan (1) Chest pain: Plan: Chest Pain Rule out ACS Mild Troponin Elevation --CTA:No pulmonary embolus is seen. --ECHO: Left ventricle is normal in size, normal systolic function, EF 55 to 60%, right ventricle systolic function is qualitatively normal, left atrial size is normal, right atrial size is normal, grade 2 diastolic dysfunction, aortic valve sclerosis mild, without significant aortic valvular stenosis. --EKG:NSR, RBBB, T wave abnormality -Cardiology Consulted Syncope ? Autonomic Neuropathy CT head:No acute intracranial abnormality. EEG:pending Check Orthostatics Monitor on Tele Cardiology consulted Anxiety/mood disorder/OCD. Resume home meds as able Lactic acidosis Chronic hypertension, stable hyperlipidemia on statin Rx DM2 insulin requiring, suboptimal control as of recent hemoglobin A1c of 9 last September 2022 thyroid CA status post surgery postsurgical hypothyroidism, euthyroid as of today's TSH DM II Hold home meds Continue Insulin while hospitalized Monitor BGs DVT Px: Lovenox SQ Code Status Full code Admission and Anticipated Discharge Date Admission Date: December 03, 2022 Subjective Patient is seen and examined at bedside States having poor appetite Reports intermittent chest pain Currently denies any dyspnea, dizziness, nausea, abdominal pain No other complaints Review of Systems Review of Systems: All systems reviewed & are unremarkable except as noted in Subjective Physical Exam Physical Exam: Physical Exam: Vitals signs as noted above General Appearance:Obese, no apparent distress Head: normocephalic, Atraumatic Eyes: normal inspection, EOMI Neck: supple, Trachea midline Respiratory/Chest: Decreased breath sounds, CTA, No accessory muscle use Cardiovascular: S1, S2, No murmur Abdomen/GI:Soft, Non tender, Bowel sounds present Extremities/Musculoskeletal:normal inspection, no edema Neurologic/Psych:AAOX3, grossly no focal neurological deficits Skin: normal color, warm Results & Data Results & Data ([facility]) Vital Signs (Past 12 Hours) Vital Signs Temp Pulse Pulse Resp BP BP BP 12/03/22 12:48 37.0 C 70 19 109/63 12/03/22 07:00 72 12/03/22 07:28 36.8 C 74 19 119/69 12/03/22 05:59 12/03/22 05:40 37.3 C 104 H 18 152/66 H 12/03/22 05:20 12/03/22 05:31 37.3 C 104 H 20 152/66 H 12/03/22 04:00 74 16 12/03/22 04:00 122/67 12/03/22 03:50 75 16 12/03/22 03:40 74 16 12/03/22 03:30 76 17 12/03/22 03:30 131/56 L 12/03/22 03:20 74 15 12/03/22 03:10 74 16 12/03/22 03:00 74 16 12/03/22 03:00 127/61 12/03/22 02:50 77 19 12/03/22 02:40 76 16 12/03/22 02:30 77 14 12/03/22 02:30 134/68 12/03/22 02:20 76 15 12/03/22 02:10 73 14 Pulse Ox O2 Del Method 12/03/22 12:48 91 Room Air 12/03/22 07:00 12/03/22 07:28 Room Air 12/03/22 05:59 Room Air 12/03/22 05:40 96 Room Air 12/03/22 05:20 94 Room Air 12/03/22 05:31 96 Room Air 12/03/22 04:00 12/03/22 04:00 12/03/22 03:50 98 12/03/22 03:40 97 12/03/22 03:30 12/03/22 03:30 12/03/22 03:20 99 12/03/22 03:10 97 12/03/22 03:00 12/03/22 03:00 12/03/22 02:50 97 12/03/22 02:40 97 12/03/22 02:30 12/03/22 02:30 12/03/22 02:20 99 12/03/22 02:10 98 Laboratory Results Short CBC 12/02/22 12/03/22 Range/Units 19:30 06:40 WBC 9.38 7.43 (4.8-10.8) K/ul Hgb 13.4 12.5 (12.0-16.0) g/dl Hct 40.3 37.1 (37.0-47.0) % Plt Count 252 243 (130-400) K/uL BMP 12/02/22 12/03/22 19:30 06:40 Sodium 134 L 135 L Potassium 4.0 4.3 Chloride 96 L 100 Carbon Dioxide 28 28 BUN 17 14 Creatinine 0.92 0.84 Glucose 265 H 266 H Calcium 9.6 8.7 Liver Function 12/02/22 Range/Units 19:30 Total Bilirubin 0.5 (0.2-1.0) mg/dl AST 18 (13-39) U/L ALT 20 (7-52) U/L Alkaline Phosphatase 60 (34-104) U/L Albumin 4.4 (3.4-5.0) gm/dl Urine 12/02/22 Range/Units 20:10 Urine Color Yellow Urine Appearance Clear (Clear) Urine pH 5.5 (4.5-7.5) Ur Specific [place] 1.023 (1.000-1.030) Urine Protein Trace H (Negative) Urine Glucose (UA) 3+ H (Negative)
--- NOTE | 2022-12-03 14:20 | Cardiology Consultation ---
Date of Consultation December 03, 2022 Assessment & Plan (1) Acute confusion: (2) Syncope: (3) AMS (altered mental status): (4) Diabetes: Plan I think it is unlikely that the patient's troponin elevations are due to acute coronary syndrome. Her EKG is unchanged with an old right bundle branch block. Echocardiogram shows no wall motion abnormalities. I would recommend no additional cardiac testing at this time unless her clinical course changes. History of Present Illness Attending Physician: Mainor Tan MD History of Present Illness This is a 57-year-old diabetic female who ran out of her insulin several weeks ago and has been admitted with confusion and mental status changes. She had a similar presentation less than a year ago at which time she had minor elevation of her cardiac troponins as she does now. No symptoms that would suggest acute coronary syndrome. EKG shows no acute changes and her echocardiogram shows no wall motion abnormalities that would suggest ischemic heart disease. She has no complaints today. Allergies Allergy/AdvReac Type Severity Reaction Status Date / Time adhesive tape Allergy Mild PER PT Verified 12/02/22 21:16 "GLUE ON TAPE"--SKIN IRRITATION Home Medications Medication Instructions Recorded Confirmed Type aspirin 81 mg tablet,delayed 81 mg PO QAM 02/18/19 12/02/22 History release omeprazole 20 mg tablet,delayed 20 mg PO BID 02/18/19 12/02/22 History release amlodipine 2.5 mg tablet 2.5 mg PO QAM 03/27/19 12/02/22 History gabapentin 100 mg capsule 100 mg PO TID 07/21/19 12/02/22 History metoprolol succinate 25 mg 25 mg PO QAM 05/24/21 12/02/22 History tablet,extended release 24 hr rosuvastatin 40 mg tablet 40 mg PO HS 05/24/21 12/02/22 History clonazepam 0.5 mg tablet 0.5 mg PO BID PRN Anxiety 12/30/21 12/02/22 History insulin pump cart,cont inf,BT 12/30/21 06/15/22 History (Omnipod Dash Pods (Gen 4) subcutaneous cartridge) levothyroxine 150 mcg tablet 150 mcg PO QAM 12/30/21 12/02/22 History (Synthroid) trazodone 50 mg tablet 50 mg PO HS 05/29/22 12/02/22 History Striction D 1 tab PO BID 12/02/22 12/02/22 History desvenlafaxine succinate 25 mg 25 mg PO QAM 12/02/22 12/02/22 History tablet,extended release 24 hr duloxetine 60 mg capsule,delayed 60 mg PO QAM 12/02/22 12/02/22 History release insulin aspart U-100 100 unit/mL 20 unit subcut TIDM 12/02/22 12/02/22 History (3 mL) subcutaneous pen (Novolog FlexPen U-100 Insulin aspart) insulin glargine 100 unit/mL 30 unit subcut HS 12/02/22 12/02/22 History subcutaneous solution (Lantus U-100 Insulin) melatonin 10 mg tablet 10 mg PO HS 12/02/22 12/02/22 History metformin 1,000 mg tablet,extended 1,000 mg PO BIDM 12/02/22 12/02/22 History release 24hr Patient History Medical History Amputation of toe Anxiety Benign neoplasm of vulva of clitoris CAD (coronary artery disease) Diabetes mellitus, type II insulin pump GERD (gastroesophageal reflux disease) History of thyroid cancer with surgical intervention Hyperglycemia Hypertension Myocardial Infarction 12 YEARS AGO (FOLLOWED BY DR. DODSON) VERBALIZED NO HEART CATH DONE Paronychia of great toe of right foot Peripheral neuropathy Restless leg syndrome Schwannoma REMOVED BY DR. GROSSMAN MARCH 2018 Stroke 7 YEARS AGO (LEFT SIDE WEAKNESS/LEFT EYE DROOPING) > follows with a neurologist unsure of name Suicidal ideation resolved per pt Tumor LEFT FEMUR (BENIGN) 2 TUMORS REMOVED > several yrs ago Vulvitis resolved per pt Surgical History Family history of reaction to anesthesia BROTHER-NAUSEA H/O blepharoplasty RT/LEFT History of anesthesia reaction SLOW TO WAKE UP History of cardiac cath March 2022, [facility] > no stents/ just check up per pt History of cholecystectomy History of colonoscopy History of esophagogastroduodenoscopy (EGD) History of neck surgery anterior cervical discectomy with bilateral foraminotomies C6-7. #2 anterior cervical arthrodesis C6-7. #3 placement of titanium 9.9 mm cage filled with DBM and C6-7. #4 occasional hernandez plate and screws across C6-7 >> ROM no limitations History of surgery robot-assist left thorascopic resection of schwannoma from left upper medias tinum. 03/16/2018. SANG. A line. No issues. 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 All other 10 point review of systems are negative. Physical Exam Physical Exam: General: no acute distress and stated age Head: normocephalic, no masses, lesions, tenderness or abnormalities Eyes: conjunctiva are pink and non-injected, sclera clear Neck: supple, no adenopathy, no bruits, normal jugular venous pulse, no hepatojugular reflux Chest: normal shape and normal respiratory effort Lungs: clear to auscultation and percussion Cardiac Exam: - regular rate & rhythm, no murmurs gallops or rubs - normal S1, normal S2 Pulses: 2(+) throughout Abdomen: abdomen soft, non-tender, no abnormal masses and no hepatosplenomegaly Musculoskeletal: no gait disturbance, no joint inflammation, no deforming arthritis Extremities: no edema and no cyanosis Neuro: grossly normal exam Results & Data ([facility]) Vital Signs (Past 12 Hours) Vital Signs Temp Pulse Pulse Resp BP BP BP 12/03/22 14:13 36.7 C 73 17 115/67 12/03/22 12:48 37.0 C 70 19 109/63 12/03/22 07:00 72 12/03/22 07:28 36.8 C 74 19 119/69 12/03/22 05:59 12/03/22 05:40 37.3 C 104 H 18 152/66 H 12/03/22 05:20 12/03/22 05:31 37.3 C 104 H 20 152/66 H 12/03/22 04:00 74 16 12/03/22 04:00 122/67 12/03/22 03:50 75 16 12/03/22 03:40 74 16 12/03/22 03:30 76 17 12/03/22 03:30 131/56 L 12/03/22 03:20 74 15 12/03/22 03:10 74 16 12/03/22 03:00 74 16 12/03/22 03:00 127/61 12/03/22 02:50 77 19 12/03/22 02:40 76 16 12/03/22 02:30 77 14 12/03/22 02:30 134/68 12/03/22 02:20 76 15 Pulse Ox O2 Del Method 12/03/22 14:13 92 Room Air 12/03/22 12:48 91 Room Air 12/03/22 07:00 12/03/22 07:28 Room Air 12/03/22 05:59 Room Air 12/03/22 05:40 96 Room Air 12/03/22 05:20 94 Room Air 12/03/22 05:31 96 Room Air 12/03/22 04:00 12/03/22 04:00 12/03/22 03:50 98 12/03/22 03:40 97 12/03/22 03:30 12/03/22 03:30 12/03/22 03:20 99 12/03/22 03:10 97 12/03/22 03:00 12/03/22 03:00 12/03/22 02:50 97 12/03/22 02:40 97 12/03/22 02:30 12/03/22 02:30 12/03/22 02:20 99 Laboratory Results Laboratory Results - last 24 hr 12/02/22 12/02/22 12/02/22 19:30 19:30 19:30 WBC 9.38 RBC 4.79 Hgb 13.4 Hct 40.3 MCV 84.1 MCH 28.0 MCHC 33.3 RDW Std Deviation 40.0 RDW Coeff of Daphney 13.1 Plt Count 252 MPV 10.0 Immature Gran % (Auto) 0.3 Neut % (Auto) 50.9 Lymph % (Auto) 37.8 [place] % (Auto) 9.1 Eos % (Auto) 1.3 Baso % (Auto) 0.6 Neut # (Auto) 4.77 Lymph # (Auto) 3.55 H [place] # (Auto) 0.85 H Eos # (Auto) 0.12 Baso # (Auto) 0.06 Immature Gran # (Auto) 0.03 APTT PTT Ratio Sodium 134 L Potassium 4.0 Chloride 96 L Carbon Dioxide 28 Anion Gap 10 BUN 17 Creatinine 0.92 Est Cr Clr Drug Dosing 75.2 Est GFR ( Amer) 79.0 Est GFR (Non-Af Amer) 68.2 BUN/Creatinine Ratio 18.5 Glucose 265 H POC Glucose Lactate Calcium 9.6 Magnesium 1.6 L Total Bilirubin 0.5 AST 18 ALT 20 Alkaline Phosphatase 60 Ammonia Troponin I High Sens 36.0 H Total Protein 7.3 Albumin 4.4 Globulin 2.9 Albumin/Globulin Ratio 1.5 TSH 1.088 Urine Color Urine Appearance Urine pH Ur Specific [place] Urine Protein Urine Glucose (UA) Urine Ketones Urine Blood Urine Nitrite Urine Bilirubin Urine Urobilinogen Ur Leukocyte Esterase Urine WBC (Auto) Urine RBC (Auto) U Hyaline Cast (Auto) U Epithel Cells (Auto) Urine Bacteria (Auto) Urine Opiates Screen Ur Methadone, Qual Urine Barbiturates Ur Phencyclidine (PCP) U Amphetamin/Meth Scrn Urine MDEA MDMA (Ecstasy) Screen MDMA Urine MDMA U Benzodiazepines Scrn Ur Cocaine Metabolite U Marijuana (THC) Screen Ethyl Alcohol mg/dL SARS-CoV-2 (PCR) Influenza Type A (PCR) Influenza Type B (PCR) RSV (RT-PCR) 12/02/22 12/02/22 12/02/22 19:30 19:59 20:04 WBC RBC Hgb Hct MCV MCH MCHC RDW Std Deviation RDW Coeff of Daphney Plt Count MPV Immature Gran % (Auto) Neut % (Auto) Lymph % (Auto) [place] % (Auto) Eos % (Auto) Baso % (Auto) Neut # (Auto) Lymph # (Auto) [place] # (Auto) Eos # (Auto) Baso # (Auto) Immature Gran # (Auto) APTT PTT Ratio Sodium Potassium Chloride Carbon Dioxide Anion Gap BUN Creatinine Est Cr Clr Drug Dosing Est GFR ( Amer) Est GFR (Non-Af Amer) BUN/Creatinine Ratio Glucose POC Glucose Lactate 3.5 H* Calcium Magnesium Total Bilirubin AST ALT Alkaline Phosphatase Ammonia Troponin I High Sens Total Protein Albumin Globulin Albumin/Globulin Ratio TSH Urine Color Urine Appearance Urine pH Ur Specific [place] Urine Protein Urine Glucose (UA) Urine Ketones Urine Blood Urine Nitrite Urine Bilirubin Urine Urobilinogen Ur Leukocyte Esterase Urine WBC (Auto) Urine RBC (Auto) U Hyaline Cast (Auto) U Epithel Cells (Auto) Urine Bacteria (Auto) Urine Opiates Screen Ur Methadone, Qual Urine Barbiturates Ur Phencyclidine (PCP) U Amphetamin/Meth Scrn Urine MDEA MDMA (Ecstasy) Screen MDMA Urine MDMA U Benzodiazepines Scrn Ur Cocaine Metabolite U Marijuana (THC) Screen Ethyl Alcohol mg/dL < 10.0 SARS-CoV-2 (PCR) NEGATIVE Influenza Type A (PCR) Negative Influenza Type B (PCR) Negative RSV (RT-PCR) Negative 12/02/22 12/02/22 12/02/22 20:10 20:10 20:10 WBC RBC Hgb Hct MCV MCH MCHC RDW Std Deviation RDW Coeff of Daphney Plt Count MPV Immature Gran % (Auto) Neut % (Auto) Lymph % (Auto) [place] % (Auto) Eos % (Auto) Baso % (Auto) Neut # (Auto) Lymph # (Auto) [place] # (Auto) Eos # (Auto) Baso # (Auto) Immature Gran # (Auto) APTT PTT Ratio Sodium Potassium Chloride Carbon Dioxide Anion Gap BUN Creatinine Est Cr Clr Drug Dosing Est GFR ( Amer) Est GFR (Non-Af Amer) BUN/Creatinine Ratio Glucose POC Glucose Lactate Calcium Magnesium Total Bilirubin AST ALT Alkaline Phosphatase Ammonia Troponin I High Sens Total Protein Albumin Globulin Albumin/Globulin Ratio TSH Urine Color Yellow Urine Appearance Clear Urine pH 5.5 Ur Specific [place] 1.023 Urine Protein Trace H Urine Glucose (UA) 3+ H Urine Ketones Negative Urine Blood Negative Urine Nitrite Negative Urine Bilirubin Negative Urine Urobilinogen Negative Ur Leukocyte Esterase Negative Urine WBC (Auto) 1-5 Urine RBC (Auto) 0-4 U Hyaline Cast (Auto) 0 U Epithel Cells (Auto) 10-20 H Urine Bacteria (Auto) Negative Urine Opiates Screen Neg Ur Methadone, Qual Neg Urine Barbiturates Neg Ur Phencyclidine (PCP) Neg U Amphetamin/Meth Scrn Neg Urine MDEA Pending MDMA (Ecstasy) Screen Pos H MDMA Pending Urine MDMA Pending U Benzodiazepines Scrn Neg Ur Cocaine Metabolite Neg U Marijuana (THC) Screen Neg Ethyl Alcohol mg/dL SARS-CoV-2 (PCR) Influenza Type A (PCR) Influenza Type B (PCR) RSV (RT-PCR) 12/02/22 12/03/22 12/03/22 22:37 02:10 02:10 WBC RBC Hgb Hct MCV MCH MCHC RDW Std Deviation RDW Coeff of Daphney Plt Count MPV Immature Gran % (Auto) Neut % (Auto) Lymph % (Auto) [place] % (Auto) Eos % (Auto) Baso % (Auto) Neut # (Auto) Lymph # (Auto) [place] # (Auto) Eos # (Auto) Baso # (Auto) Immature Gran # (Auto) APTT PTT Ratio Sodium Potassium Chloride Carbon Dioxide Anion Gap BUN Creatinine Est Cr Clr Drug Dosing Est GFR ( Amer) Est GFR (Non-Af Amer) BUN/Creatinine Ratio Glucose POC Glucose Lactate 3.2 H* 2.2 H* Calcium Magnesium Total Bilirubin AST ALT Alkaline Phosphatase Ammonia 24.0 Troponin I High Sens Total Protein Albumin Globulin Albumin/Globulin Ratio TSH Urine Color Urine Appearance Urine pH Ur Specific [place] Urine Protein Urine Glucose (UA) Urine Ketones Urine Blood Urine Nitrite Urine Bilirubin Urine Urobilinogen Ur Leukocyte Esterase Urine WBC (Auto) Urine RBC (Auto) U Hyaline Cast (Auto) U Epithel Cells (Auto) Urine Bacteria (Auto) Urine Opiates Screen Ur Methadone, Qual Urine Barbiturates Ur Phencyclidine (PCP) U Amphetamin/Meth Scrn Urine MDEA MDMA (Ecstasy) Screen MDMA Urine MDMA U Benzodiazepines Scrn Ur Cocaine Metabolite U Marijuana (THC) Screen Ethyl Alcohol mg/dL SARS-CoV-2 (PCR) Influenza Type A (PCR) Influenza Type B (PCR) RSV (RT-PCR) 12/03/22 12/03/22 12/03/22 02:10 02:10 04:50 WBC RBC Hgb Hct MCV MCH MCHC RDW Std Deviation RDW Coeff of Daphney Plt Count MPV Immature Gran % (Auto) Neut % (Auto) Lymph % (Auto) [place] % (Auto) Eos % (Auto) Baso % (Auto) Neut # (Auto) Lymph # (Auto) [place] # (Auto) Eos # (Auto) Baso # (Auto) Immature Gran # (Auto) APTT 27.1 PTT Ratio 1.0 Sodium Potassium Chloride Carbon Dioxide Anion Gap BUN Creatinine Est Cr Clr Drug Dosing Est GFR ( Amer) Est GFR (Non-Af Amer) BUN/Creatinine Ratio Glucose POC Glucose 263 H Lactate Calcium Magnesium Total Bilirubin AST ALT Alkaline Phosphatase Ammonia Troponin I High Sens 34.8 H Total Protein Albumin Globulin Albumin/Globulin Ratio TSH Urine Color Urine Appearance Urine pH Ur Specific [place] Urine Protein Urine Glucose (UA) Urine Ketones Urine Blood Urine Nitrite Urine Bilirubin Urine Urobilinogen Ur Leukocyte Esterase Urine WBC (Auto) Urine RBC (Auto) U Hyaline Cast (Auto) U Epithel Cells (Auto) Urine Bacteria (Auto) Urine Opiates Screen Ur Methadone, Qual Urine Barbiturates Ur Phencyclidine (PCP) U Amphetamin/Meth Scrn Urine MDEA MDMA (Ecstasy) Screen MDMA Urine MDMA U Benzodiazepines Scrn Ur Cocaine Metabolite U Marijuana (THC) Screen Ethyl Alcohol mg/dL SARS-CoV-2 (PCR) Influenza Type A (PCR) Influenza Type B (PCR) RSV (RT-PCR) 12/03/22 12/03/22 12/03/22 06:40 06:40 06:40 WBC 7.43 RBC 4.39 Hgb 12.5 Hct 37.1 MCV 84.5 MCH 28.5 MCHC 33.7 RDW Std Deviation 40.4 RDW Coeff of Daphney 13.2 Plt Count 243 MPV 9.8 Immature Gran % (Auto) 0.4 Neut % (Auto) 63.9 Lymph % (Auto) 27.2 [place] % (Auto) 6.7 Eos % (Auto) 0.9 Baso % (Auto) 0.9 Neut # (Auto) 4.74 Lymph # (Auto) 2.02 [place] # (Auto) 0.50 Eos # (Auto) 0.07 Baso # (Auto) 0.07 Immature Gran # (Auto) 0.03 APTT PTT Ratio Sodium 135 L Potassium 4.3 Chloride 100 Carbon Dioxide 28 Anion Gap 7 BUN 14 Creatinine 0.84 Est Cr Clr Drug Dosing 82.4 Est GFR ( Amer) 88.2 Est GFR (Non-Af Amer) 76.1 BUN/Creatinine Ratio 16.7 Glucose 266 H POC Glucose Lactate 2.6 H* Calcium 8.7 Magnesium 1.7 Total Bilirubin AST ALT Alkaline Phosphatase Ammonia Troponin I High Sens 36.4 H Total Protein Albumin Globulin Albumin/Globulin Ratio TSH Urine Color Urine Appearance Urine pH Ur Specific [place] Urine Protein Urine Glucose (UA) Urine Ketones Urine Blood Urine Nitrite Urine Bilirubin Urine Urobilinogen Ur Leukocyte Esterase Urine WBC (Auto) Urine RBC (Auto) U Hyaline Cast (Auto) U Epithel Cells (Auto) Urine Bacteria (Auto) Urine Opiates Screen Ur Methadone, Qual Urine Barbiturates Ur Phencyclidine (PCP) U Amphetamin/Meth Scrn Urine MDEA MDMA (Ecstasy) Screen MDMA Urine MDMA U Benzodiazepines Scrn Ur Cocaine Metabolite U Marijuana (THC) Screen Ethyl Alcohol mg/dL SARS-CoV-2 (PCR) Influenza Type A (PCR) Influenza Type B (PCR) RSV (RT-PCR) 12/03/22 12/03/22 07:07 11:09 WBC RBC Hgb Hct MCV MCH MCHC RDW Std Deviation RDW Coeff of Daphney Plt Count MPV Immature Gran % (Auto) Neut % (Auto) Lymph % (Auto) [place] % (Auto) Eos % (Auto) Baso % (Auto) Neut # (Auto) Lymph # (Auto) [place] # (Auto) Eos # (Auto) Baso # (Auto) Immature Gran # (Auto) APTT PTT Ratio Sodium Potassium Chloride Carbon Dioxide Anion Gap BUN Creatinine Est Cr Clr Drug Dosing Est GFR ( Amer) Est GFR (Non-Af Amer) BUN/Creatinine Ratio Glucose POC Glucose 254 H 239 H Lactate Calcium Magnesium Total Bilirubin AST ALT Alkaline Phosphatase Ammonia Troponin I High Sens Total Protein Albumin Globulin Albumin/Globulin Ratio TSH Urine Color Urine Appearance Urine pH Ur Specific [place] Urine Protein Urine Glucose (UA) Urine Ketones Urine Blood Urine Nitrite Urine Bilirubin Urine Urobilinogen Ur Leukocyte Esterase Urine WBC (Auto) Urine RBC (Auto) U Hyaline Cast (Auto) U Epithel Cells (Auto) Urine Bacteria (Auto) Urine Opiates Screen Ur Methadone, Qual Urine Barbiturates Ur Phencyclidine (PCP) U Amphetamin/Meth Scrn Urine MDEA MDMA (Ecstasy) Screen MDMA Urine MDMA U Benzodiazepines Scrn Ur Cocaine Metabolite U Marijuana (THC) Screen Ethyl Alcohol mg/dL SARS-CoV-2 (PCR) Influenza Type A (PCR) Influenza Type B (PCR) RSV (RT-PCR) Medications Administered Current Inpatient Medications Acetaminophen (Acetaminophen 325 Mg Tab) 650 mg PO Q4H PRN PRN Reason: Pain or Fever Stop: 01/02/23 05:20 Amlodipine Besylate (Amlodipine Besylate 5 Mg Tab) 2.5 mg PO [facility] Stop: 01/02/23 08:59 Last Admin: 12/03/22 09:37 Dose: 2.5 mg Aspirin (Aspirin 81 Mg Ectab) [facility] Stop: 01/02/23 08:59 Last Admin: 12/03/22 09:42 Dose: 81 mg Dextrose (Dextrose 50% 50 Ml Syringe) 25 - 50 ml IV UD PRN; Protocol PRN Reason: Hypoglycemia Protocol Stop: 01/02/23 03:06 Enoxaparin Sodium (Enoxaparin Inj 40 Mg/0.4 Ml Syr) 40 mg SQ [facility] Stop: 01/02/23 08:59 Last Admin: 12/03/22 09:44 Dose: 40 mg Glucagon (Glucagon For Inj 1 Mg Vial) 1 mg SQ UD PRN; Protocol PRN Reason: Hypoglycemia Protocol Stop: 01/02/23 03:06 Glucose (Glucose 40% Gel 15 Gm Tube) 15 - 30 gm PO UD PRN; Protocol PRN Reason: Hypoglycemia Protocol Stop: 01/02/23 03:06 Glucose (Glucose 10 Tab/Tube) 4 - 8 tab PO UD PRN; Protocol PRN Reason: Hypoglycemia Treatment Stop: 01/02/23 03:06 Lactated Ringer's (Lr) 1,000 mls @ 100 mls/hr IV .Q10H ONE Stop: 12/03/22 14:59 Last Admin: 12/03/22 04:59 Dose: 100 mls/hr Promethazine HCl 12.5 mg/ (Sodium Chloride) 50.5 mls @ 202 mls/hr IV Q6H PRN PRN Reason: Nausea And Vomiting Stop: 01/02/23 03:10 Insulin Aspart (Insulin Aspart Per Unit) 0 units SC [facility] Stop: 01/02/23 03:09 Last Admin: 12/03/22 12:07 Dose: 4 units Insulin Glargine (Lantus Per Unit Charge) 15 units SQ [facility] Stop: 01/02/23 20:59 Levothyroxine Sodium (Levothyroxine Sodium 150 Mcg Tablet) 150 mcg PO DAILYBB [facility] Stop: 01/02/23 06:29 Last Admin: 12/03/22 06:21 Dose: 150 mcg Melatonin (Melatonin 3 Mg Tab) 9 mg PO HS [facility] Stop: 01/02/23 20:59 Metoprolol Succinate (Metoprolol Succ 25mg Ext Rel Tab) 25 mg PO QAM [facility] Stop: 01/02/23 08:59 Last Admin: 12/03/22 09:43 Dose: 25 mg Miscellaneous (Carbohydrates For Hypoglycemia ) 15 - 30 gm PO UD PRN PRN Reason: Hypoglycemia Protocol Stop: 01/02/23 03:06 Nitroglycerin (Nitroglycerin Sl 0.4 Mg/Tab Tab) 0.4 mg SL Q5M PRN PRN Reason: Chest Pain Stop: 01/02/23 05:20 Pantoprazole Sodium (Pantoprazole 40 Mg Tab) 40 mg PO BID [facility] Stop: 01/02/23 08:59 Last Admin: 12/03/22 09:43 Dose: 40 mg Rosuvastatin Calcium (Rosuvastatin Calcium 20 Mg Tab) 40 mg PO HS [facility] Stop: 01/02/23 20:59 (1) Syncope Syncope type: unspecified Qualified Code(s): R55 - Syncope and collapse
[2022-12-03] MEDS: ROSUVASTATIN CALCIUM 20 MG TAB PO SCH (20:10)
[2022-12-03] MEDS: MELATONIN 3 MG TAB PO SCH (20:10)
[2022-12-03] MEDS: LANTUS PER UNIT CHARGE SQ SCH (21:29)
[2022-12-04] MEDS: LEVOTHYROXINE SODIUM 150 MCG TABLET PO SCH (05:07)
[2022-12-04 06:27] LABS: Hematocrit (blood only) 35.9 % (37.0-47.0); Hemoglobin 12.2 g/dl (12.0-16.0); Mean Corpuscular Hemoglobin 28.2 pg (25.0-34.0); Mean Corpuscular Volume 82.9 fL (80.0-100.0); Mean Platelet Volume 9.6 fL (9.4-12.4); Platelet Count 234 K/uL (130-400); RDW Coefficient of Variation 13.2 % (11.5-14.5); RDW Standard Deviation 39.8 fL (36.4-46.3); Red Blood Count 4.33 M/uL (4.20-5.40)
[2022-12-04 06:38] LABS: Estimated Average Glucose 189 mg/dl; Hemoglobin A1C 8.2 % (4.5-5.6)
[2022-12-04 06:47] LABS: Calcium 8.8 mg/dl (8.5-10.1); Magnesium 1.8 mg/dl (1.7-2.4); Potassium 3.8 mmol/L (3.5-5.1)
[2022-12-04 06:53] LABS: BUN Creatinine Ratio 17.1 (10-20); Creatinine Clr Calc Pharmacy 91.8 ml/min; Est GFR (African American) 99.5 ml/min; Est GFR (Non-African American) 85.9 ml/min
[2022-12-04] MEDS: ASPIRIN 81 MG ECTAB PO SCH (08:08)
[2022-12-04] MEDS: METOPROLOL SUCC 25MG EXT REL TAB PO SCH (08:08)
[2022-12-04] MEDS: PANTOprazole 40 MG TAB PO SCH ×2 (08:09→20:25)
[2022-12-04] MEDS: amLODIPine BESYLATE 5 MG TAB PO SCH (08:09)
[2022-12-04] MEDS: ENOXAPARIN INJ 40 MG/0.4 ML SYR SQ SCH (08:11)
[2022-12-04] MEDS: INSULIN ASPART PER UNIT SC SCH ×4 (09:13→20:38)
--- NOTE | 2022-12-04 12:29 | Neurology Consultation ---
Date of Consultation December 04, 2022 Assessment & Plan (1) Acute confusion: Plan NEUROLOGY CONSULTATION Assessment & Plan: Impression: pt with recurrent alteration of awareness in setting of poorly controlled diabetes and significant psychatric disorders and metabolic disorder. overall picture not suggestive of seizure. pt has had similar events in the past and had extensive work up in the past. Not suggestive of Stroke or vascular event either. Agree that is more likely that pt is having orthostatic/autonomic dysfunction causing orthostatic hypersensitivity triggering her events. He ongoing psychia tric mood instability likely also has significant contributing factor and also need to consider somatoform disorder. Recommendations: -strict diabetes control. correct metabolic disorder avoid dehydration and poor po intake. psychiatry consult. i do not feel we need seizure work up at this point. avoid sudden position change and need to improve her mood/psychiatric disorders and nutritional status. supportive care as now. otherwise, not much else to add from neurology. call again if new question. Dr. Colby Tomas MD [facility] Neurology Chief Complaint: syncope History of Present Illness: HPI: pt with reported event of being confused and syncopal like event. As of note, this is not the first time. she has had similar "syncopal" like events and had extensive work up with cardiology and outpt cardiac monitoring and imaging, all negative. pt does have long hx of diabetic control issues with hard time managing her diet. she admits not eating for almost 5 days and running out of insulin. pt also with significant hx of psychiatric disorders with worsening depression and there is report of consideration for possible Pseuodementia type symptoms. she does have metabolic disorders on this admission and CT head and mri brain essentially unremarkable. there is no report of seizure like events. this morning feeling well and back to baseline. History of Present Illness Chief Complaint: Confusion as per records Primary Care Provider: Ivonne French PA-C History obtained from patient and records. Patient is a fair historian. Medical history significant for CVA, hypertension, hyperlipidemia, DM2 insulin requiring, thyroid CA status post surgery, postsurgical hypothyroidism, anxiety/mood disorder/OCD. Last confinement June 2022 for syncope attributed to UTI and hypotension. Patient ran out of insulin supplies about 2 weeks ago. Poor appetite the last few days. Shaky and unstable on her feet. Some nausea symptoms without abdominal pain. Intermittent left-sided pleuritic chest pain complaints with shortness of breath the last 2 days. No cough symptoms. Patient seen at urgent care center yesterday for evaluation. Patient noted to be confused and distractible. Transient syncopal event witnessed by outpatient provider lasting 10 seconds while patient's BP was being checked.. No witnessed G TC seizures as per outpatient provider note. Urinary incontinence noted. Patient admits to depression but denies suicidality. SBP 140s and BSG BSG 245 at urgent care center. Patient brought by EMS to ER for evaluation. Past Medical History: See chart Meds: See chart I personally reviewed all of the medications Social & Family History: See chart Review of Systems: Per initial HPI on admission. Physical Exam: GEN: NAD HEENT: Normocephalic Neuro: Mental status:A & O x 3.No dysarthria or aphasia.No neglect. Fluent speech. No apraxia Cranial Nerves:II-XII intact Motor:Normal bulk and tone,5/5 strength x 4 extremities (no prior report of weakness noted). left distal toe missing from prior surgery. Coordination:Intact Reflexes: down going toes ellen Sensation: Intact grossly b/l Chart reviewed I have spent more than 50% educating patient about potential diagnosis and neurological evaluation and coordinating care with patient's treatment team. Total time spent (including chart review and coordination of care): 80 min (this includes chart review). History of Present Illness Attending Physician: Mainor Tan MD Allergies Allergy/AdvReac Type Severity Reaction Status Date / Time adhesive tape Allergy Mild PER PT Verified 12/02/22 21:16 "GLUE ON TAPE"--SKIN IRRITATION Home Medications Medication Instructions Recorded Confirmed Type aspirin 81 mg tablet,delayed 81 mg PO QAM 02/18/19 12/02/22 History release omeprazole 20 mg tablet,delayed 20 mg PO BID 02/18/19 12/02/22 History release amlodipine 2.5 mg tablet 2.5 mg PO QAM 03/27/19 12/02/22 History gabapentin 100 mg capsule 100 mg PO TID 07/21/19 12/02/22 History metoprolol succinate 25 mg 25 mg PO QAM 05/24/21 12/02/22 History tablet,extended release 24 hr rosuvastatin 40 mg tablet 40 mg PO HS 05/24/21 12/02/22 History clonazepam 0.5 mg tablet 0.5 mg PO BID PRN Anxiety 12/30/21 12/02/22 History insulin pump cart,cont inf,BT 12/30/21 06/15/22 History (Omnipod Dash Pods (Gen 4) subcutaneous cartridge) levothyroxine 150 mcg tablet 150 mcg PO QAM 12/30/21 12/02/22 History (Synthroid) trazodone 50 mg tablet 50 mg PO HS 05/29/22 12/02/22 History Striction D 1 tab PO BID 12/02/22 12/02/22 History desvenlafaxine succinate 25 mg 25 mg PO QAM 12/02/22 12/02/22 History tablet,extended release 24 hr duloxetine 60 mg capsule,delayed 60 mg PO QAM 12/02/22 12/02/22 History release insulin aspart U-100 100 unit/mL 20 unit subcut TIDM 12/02/22 12/02/22 History (3 mL) subcutaneous pen (Novolog FlexPen U-100 Insulin aspart) insulin glargine 100 unit/mL 30 unit subcut HS 12/02/22 12/02/22 History subcutaneous solution (Lantus U-100 Insulin) melatonin 10 mg tablet 10 mg PO HS 12/02/22 12/02/22 History metformin 1,000 mg tablet,extended 1,000 mg PO BIDM 12/02/22 12/02/22 History release 24hr Patient History Medical History Amputation of toe Anxiety Benign neoplasm of vulva of clitoris CAD (coronary artery disease) Diabetes mellitus, type II insulin pump GERD (gastroesophageal reflux disease) History of thyroid cancer with surgical intervention Hyperglycemia Hypertension Myocardial Infarction 12 YEARS AGO (FOLLOWED BY DR. DODSON) VERBALIZED NO HEART CATH DONE Paronychia of great toe of right foot Peripheral neuropathy Restless leg syndrome Schwannoma REMOVED BY DR. GROSSMAN MARCH 2018 Stroke 7 YEARS AGO (LEFT SIDE WEAKNESS/LEFT EYE DROOPING) > follows with a neurolo gist unsure of name Suicidal ideation resolved per pt Tumor LEFT FEMUR (BENIGN) 2 TUMORS REMOVED > several yrs ago Vulvitis resolved per pt Surgical History Family history of reaction to anesthesia BROTHER-NAUSEA H/O blepharoplasty RT/LEFT History of anesthesia reaction SLOW TO WAKE UP History of cardiac cath March 2022, [facility] > no stents/ just check up per pt History of cholecystectomy History of colonoscopy History of esophagogastroduodenoscopy (EGD) History of neck surgery anterior cervical discectomy with bilateral foraminotomies C6-7. #2 anterior cervical arthrodesis C6-7. #3 placement of titanium 9.9 mm cage filled with DBM and C6-7. #4 occasional hernandez plate and screws across C6-7 >> ROM no limitations History of surgery robot-assist left thorascopic resection of schwannoma from left upper mediastinum. 03/16/2018. SANG. A line. No issues. History of thyroidectomy, total History of tonsillectomy History of tooth extraction S/P LASIK surgery of both eyes Status post hysteroscopic ablation of endometrium Family History Grandmother (Maternal) Family history of diabetes mellitus Mother Ovarian cancer Father Myocardial infarction Social History Smoking Status: Never smoker Second Hand Exposure: No; Do You Dip or Chew Tobacco: No; Tobacco Cessation Education Requested by Patient: No Hx Alcohol Use: No Hx Substance Use: No Preferred Language: Mauritian Communication Ability: Effective Debarker Operator Required: No Beliefs That Will Affect Care: None marital status: / Current Living Situation: Alone How many Children do You have: 2 Other Information That Helps Us Care for You: No Feels Safe at Home: Yes Safety Concerns: Feels Safe At This Time Assistive Devices: Denture - Upper, Denture - Lower and Glasses Results & Data ([facility]) Vital Signs (Past 12 Hours) Vital Signs Temp Pulse Pulse Resp BP Pulse Ox O2 Del Method 12/04/22 11:26 Room Air 12/04/22 10:29 36.6 C 76 18 136/81 95 Room Air 12/04/22 07:50 36.8 C 17 94 Room Air 12/04/22 07:42 65 12/04/22 04:07 36.7 C 70 18 123/72 93 Room Air :
[2022-12-04] MEDS ORDERED: GADOBUTROL 65ML VIAL IV ONE (12:46)
--- NOTE | 2022-12-04 13:30 | Magnetic Resonance Report ---
Brain MRI WITH AND WITHOUT CONTRAST HISTORY: Global Amnesia TECHNIQUE: Multiplanar multisequence MRI of the brain was performed both before and after the intrave nous administration of contrast. COMPARISON STUDY: Head CT 12/02/2022. Brain MRI 05/04/2017. FINDINGS: There are no areas of restricted diffusion to suggest acute infarction. The midline structu res are intact. The paranasal sinuses are clear. The mastoid air cells are clear. The ventricles and sulci are within normal limits for age. There is no mass, hematoma, midline shift. The major vascular flow-voids at the skull base are well maintained. Postcontrast sequences show no areas of abnormal e nhancement. Prior bilateral lens replacement. IMPRESSION: No acute intracranial abnormality. ACT 112: Negative or not required by law. Electronically signed by: Elgin Mccoy M.D. 12/04/2022 1:29 PM
[2022-12-04] MEDS ORDERED: clonazePAM 0.5 MG TAB PO PRN (14:18)
--- NOTE | 2022-12-04 14:20 | Hospitalist Progress Note ---
Date of Service December 04, 2022 Assessment & Plan (1) Chest pain: Plan: Chest Pain Rule out ACS Mild Troponin Elevation --CTA:No pulmonary embolus is seen. --ECHO: Left ventricle is normal in size, normal systolic function, EF 55 to 60%, right ventricle systolic function is qualitatively normal, left atrial size is normal, right atrial size is normal, grade 2 diastolic dysfunction, aortic valve sclerosis mild, without significant aortic valvular stenosis. --EKG:NSR, RBBB, T wave abnormality -Appreciate Cardiology Input Syncope Possible Autonomic Neuropathy Amnesia ? Depression contributing CT head:No acute intracranial abnormality. MRI Brain:No acute intracranial abnormality. Negative Orthostatics EEG:pending Ammonia, TSH, and B12 within normal Appreciate Neurology, Cardiology Input Anxiety/mood disorder/OCD. Resume home meds Psychiatry consulted Lactic acidosis Chronic Hypertension Continue amlodipine, metoprolol Hyperlipidemia on statin Thyroid CA S/P surgery Postsurgical hypothyroidism TSH normal Continue Levothyroxine DM II Hold home meds Continue Insulin while hospitalized Monitor BGs DVT Px: Lovenox SQ Code Status Full code Admission and Anticipated Discharge Date Admission Date: December 04, 2022 Subjective Patient is seen and examined at bedside States having blurry vision and couldn't remember events yesterday Also reports poor appetite Denies any dyspnea, chest pain, dizziness, nausea, abdominal pain Admits to feeling depressed, denies any suicidal thoughts Review of Systems Review of Systems: All systems reviewed & are unremarkable except as noted in Subjective Physical Exam Physical Exam: Physical Exam: Vitals signs as noted above General Appearance:Obese, no apparent distress Head: normocephalic, Atraumatic Eyes: normal inspection, EOMI Neck: supple, Trachea midline Respiratory/Chest: Decreased breath sounds, CTA, No accessory muscle use Cardiovascular: S1, S2, No murmur Abdomen/GI:Soft, Non tender, Bowel sounds present Extremities/Musculoskeletal:normal inspection, no edema Neurologic/Psych:AAOX3, grossly no focal neurological deficits Skin: normal color, warm Results & Data Results & Data ([facility]) Vital Signs (Past 12 Hours) Vital Signs Temp Pulse Pulse Resp BP Pulse Ox O2 Del Method 12/04/22 11:26 Room Air 12/04/22 10:29 36.6 C 76 18 136/81 95 Room Air 12/04/22 07:50 36.8 C 17 94 Room Air 12/04/22 07:42 65 12/04/22 04:07 36.7 C 70 18 123/72 93 Room Air Laboratory Results Short CBC 12/04/22 Range/Units 05:59 WBC 8.50 (4.8-10.8) K/ul Hgb 12.2 (12.0-16.0) g/dl Hct 35.9 L (37.0-47.0) % Plt Count 234 (130-400) K/uL BMP 12/04/22 05:59 Sodium 137 Potassium 3.8 Chloride 101 Carbon Dioxide 29 BUN 13 Creatinine 0.76 Glucose 177 H Calcium 8.8
--- NOTE | 2022-12-04 15:28 | Electrocardiogram Report ---
Test Reason : Blood Pressure : / mmHG Vent. Rate : 064 BPM Atrial Rate : 064 BPM P-R Int : 184 ms QRS Dur : 150 ms QT Int : 464 ms P-R-T Axes : 053 068 -10 degrees QTc Int : 478 ms Normal sinus rhythm Right bundle branch block possible Inferior infarct (cited on or before 15-JUN-2022) Abnormal ECG When compared with ECG of 03-DEC-2022 05:19, (unconfirmed) No significant change was found Confirmed by Randy Vitcor ([id number]) on 12/04/2022 3:28:09 PM Referred By: REFERRED SELF Confirmed By:Cedrick Victor
--- NOTE | 2022-12-04 15:37 | Electrocardiogram Report ---
Test Reason : Blood Pressure : / mmHG Vent. Rate : 082 BPM Atrial Rate : 082 BPM P-R Int : 170 ms QRS Dur : 136 ms QT Int : 402 ms P-R-T Axes : 052 079 002 degrees QTc Int : 469 ms Normal sinus rhythm Right bundle branch block possible Inferior infarct , age undetermined T wave abnormality, consider lateral ischemia Abnormal ECG When compared with ECG of 02-DEC-2022 19:26, No significant change was found Confirmed by Randy Victor ([id number]) on 12/04/2022 3:36:51 PM Referred By: REFERRED SELF Confirmed By:Cedrick Victor
[2022-12-04] MEDS: DULoxetine HCL 60 MG CAP PO SCH (16:21)
[2022-12-04] MEDS: ROSUVASTATIN CALCIUM 20 MG TAB PO SCH (20:25)
[2022-12-04] MEDS: GABAPENTIN 100 MG CAP PO SCH (20:25)
[2022-12-04] MEDS: traZODone HCL 50 MG TAB PO SCH (20:25)
[2022-12-04] MEDS: MELATONIN 3 MG TAB PO SCH (20:25)
[2022-12-04] MEDS: LANTUS PER UNIT CHARGE SQ SCH (20:39)
[2022-12-05] MEDS: LEVOTHYROXINE SODIUM 150 MCG TABLET PO SCH (05:45)
[2022-12-05 06:54] LABS: Calcium 8.8 mg/dl (8.5-10.1); Potassium 3.4 mmol/L (3.5-5.1)
[2022-12-05 07:00] LABS: BUN Creatinine Ratio 19.8 (10-20); Creatinine Clr Calc Pharmacy 445.8 ml/min; Est GFR (African American) 92.1 ml/min; Est GFR (Non-African American) 79.5 ml/min
[2022-12-05] MEDS: INSULIN ASPART PER UNIT SC SCH ×4 (08:33→22:02)
[2022-12-05] MEDS: DULoxetine HCL 60 MG CAP PO SCH (08:35)
[2022-12-05] MEDS: METOPROLOL SUCC 25MG EXT REL TAB PO SCH (08:36)
[2022-12-05] MEDS: ASPIRIN 81 MG ECTAB PO SCH (08:36)
[2022-12-05] MEDS: PANTOprazole 40 MG TAB PO SCH ×2 (08:36→21:51)
[2022-12-05] MEDS: amLODIPine BESYLATE 5 MG TAB PO SCH (08:36)
[2022-12-05] MEDS: GABAPENTIN 100 MG CAP PO SCH ×3 (08:37→21:50)
[2022-12-05] MEDS: ENOXAPARIN INJ 40 MG/0.4 ML SYR SQ SCH (08:38)
[2022-12-05] MEDS ORDERED: POTASSIUM CHLORIDE CRTAB 20 MEQ TABCR PO ONE (09:15)
--- NOTE | 2022-12-05 14:30 | Hospitalist Progress Note ---
Date of Service December 05, 2022 Assessment & Plan (1) Chest pain: Plan: Chest Pain Less likely ACS Mild Troponin Elevation --CTA:No pulmonary embolus is seen. --ECHO: Left ventricle is normal in size, normal systolic function, EF 55 to 60%, right ventricle systolic function is qualitatively normal, left atrial size is normal, right atrial size is normal, grade 2 diastolic dysfunction, aortic valve sclerosis mild, without significant aortic valvular stenosis. --EKG:NSR, RBBB, T wave abnormality -Appreciate Cardiology Input Resolved Syncope Possible Autonomic Neuropathy Amnesia ? Depression contributing CT head:No acute intracranial abnormality. MRI Brain:No acute intracranial abnormality. Negative Orthostatics EEG:pending Ammonia, TSH, and B12 within normal Appreciate Neurology, Cardiology Input No rhythm issues on monitor Anxiety/mood disorder/OCD. Resumed home meds Psychiatry consulted- Await Input Lactic acidosis Chronic Hypertension Continue amlodipine, metoprolol Hyperlipidemia on statin Thyroid CA S/P surgery Postsurgical hypothyroidism TSH normal Continue Levothyroxine DM II Hold home meds Continue Insulin while hospitalized Monitor BGs DVT Px: Lovenox SQ Code Status Full code Admission and Anticipated Discharge Date Admission Date: December 04, 2022 Subjective Patient is seen and examined at bedside States feeling better No new complaints Very poor oral intake Denies any dyspnea, chest pain, dizziness, nausea, abdominal pain Review of Systems Review of Systems: All systems reviewed & are unremarkable except as noted in Subjective Physical Exam Physical Exam: Physical Exam: Vitals signs as noted above General Appearance:Obese, no apparent distress Head: normocephalic, Atraumatic Eyes: normal inspection, EOMI Neck: supple, Trachea midline Respiratory/Chest: Decreased breath sounds, CTA, No accessory muscle use Cardiovascular: S1, S2, No murmur Abdomen/GI:Soft, Non tender, Bowel sounds present Extremities/Musculoskeletal:normal inspection, no edema Neurologic/Psych:AAOX3, grossly no focal neurological deficits Skin: normal color, warm Results & Data Results & Data ([facility]) Vital Signs (Past 12 Hours) Vital Signs Temp Pulse Pulse Resp BP BP Pulse Ox 12/05/22 12:08 36.8 C 72 18 150/71 H 96 12/05/22 07:21 36.9 C 68 18 136/70 94 12/05/22 04:17 36.7 C 64 20 130/72 93 O2 Del Method 01/28/23 12:08 Room Air 12/05/22 07:21 Room Air 12/05/22 04:17 Room Air Laboratory Results [facility] 12/05/22 05:26 Sodium 139 Potassium 3.4 L Chloride 103 Carbon Dioxide 28 BUN 16 Creatinine 0.81 Glucose 151 H Calcium 8.8
--- NOTE | 2022-12-05 16:05 | Psychiatric Consultation ---
Date of Consultation December 05, 2022 Impression / Recommendations Impression Currently doing well in terms of psychiatric symptoms - major depression is under moderately good control and is not experiencing obsessions or compulsions to a degree that causes signficant impairment. (1) Obsessive compulsive disorder: (2) Major depressive disorder with current active episode: Major depression recurrence: unspecified whether recurrent Major depression episode severity: severe Psychotic features: without psychotic features Qualified Code(s): F32.2 - Major depressive disorder, single episode, severe without psychotic features Plan Recommend continuing psychiatric medications unchanged. Pt should follow up as already planned with her outpatient team. Psych History Identifying Data 57 y/o woman with a history of major depression who was brought by ambulance after presenting to the [facility] walk-in clinic confused. Chief Complaint "Pretty good". History of Present Illness 57 y/o woman admitted with confusion. It's believed she may have gone without food for several days and may have missed insulin as well. She has no recall of a period of several days preceding her admission. She doesn't believe she was without food but says that in switching to a new insulin she got the injector but no needle tips. Today, she is very pleasant, cooperative, and cheerful. She says her depresion is "under pretty good control". She says she attends outpatient treatment appointments regularly and takes medication consistently, although she can't name any of her medications. She denies any suicidal thoughts. Past Psychiatric History Previous Psych History: Recurrent Major Depression Obsessive-compulsive Disorder Do You Have Access To A Gun?: No Allergies Allergy/AdvReac Type Severity Reaction Status Date / Time adhesive tape Allergy Mild PER PT Verified 12/02/22 21:16 "GLUE ON TAPE"--SKIN IRRITATION Home Medications Medication Instructions Recorded Confirmed Type aspirin 81 mg tablet,delayed 81 mg PO QAM 02/18/19 12/02/22 History release omeprazole 20 mg tablet,delayed 20 mg PO BID 02/18/19 12/02/22 History release amlodipine 2.5 mg tablet 2.5 mg PO QAM 03/27/19 12/02/22 History gabapentin 100 mg capsule 100 mg PO TID 07/21/19 12/02/22 History metoprolol succinate 25 mg 25 mg PO QAM 05/24/21 12/02/22 History tablet,extended release 24 hr rosuvastatin 40 mg tablet 40 mg PO HS 05/24/21 12/02/22 History clonazepam 0.5 mg tablet 0.5 mg PO BID PRN Anxiety 12/30/21 12/02/22 History insulin pump cart,cont inf,BT 12/30/21 06/15/22 History (Omnipod Dash Pods (Gen 4) subcutaneous cartridge) levothyroxine 150 mcg tablet 150 mcg PO QAM 12/30/21 12/02/22 History (Synthroid) trazodone 50 mg tablet 50 mg PO HS 05/29/22 12/02/22 History Striction D 1 tab PO BID 12/02/22 12/02/22 History desvenlafaxine succinate 25 mg 25 mg PO QAM 12/02/22 12/02/22 History tablet,extended release 24 hr duloxetine 60 mg capsule,delayed 60 mg PO QAM 12/02/22 12/02/22 History release insulin aspart U-100 100 unit/mL 20 unit subcut TIDM 12/02/22 12/02/22 History (3 mL) subcutaneous pen (Novolog FlexPen U-100 Insulin aspart) insulin glargine 100 unit/mL 30 unit subcut HS 12/02/22 12/02/22 History subcutaneous solution (Lantus U-100 Insulin) melatonin 10 mg tablet 10 mg PO HS 12/02/22 12/02/22 History metformin 1,000 mg tablet,extended 1,000 mg PO BIDM 12/02/22 12/02/22 History release 24hr Patient History Medical History Amputation of toe Anxiety Benign neoplasm of vulva of clitoris CAD (coronary artery disease) Diabetes mellitus, type II insulin pump GERD (gastroesophageal reflux disease) History of thyroid cancer with surgical intervention Hyperglycemia Hypertension Myocardial Infarction 12 YEARS AGO (FOLLOWED BY DR. DODSON) VERBALIZED NO HEART CATH DONE Paronychia of great toe of right foot Peripheral neuropathy Restless leg syndrome Schwannoma REMOVED BY DR. GROSSMAN MARCH 2018 Stroke 7 YEARS AGO (LEFT SIDE WEAKNESS/LEFT EYE DROOPING) > follows with a neurologist unsure of name Suicidal ideation resolved per pt Tumor LEFT FEMUR (BENIGN) 2 TUMORS REMOVED > several yrs ago Vulvitis resolved per pt Surgical History Family history of reaction to anesthesia BROTHER-NAUSEA H/O blepharoplasty RT/LEFT History of anesthesia reaction SLOW TO WAKE UP History of cardiac cath March 2022, [facility] > no stents/ just check up per pt History of cholecystectomy History of colonoscopy History of esophagogastroduodenoscopy (EGD) History of neck surgery anterior cervical discectomy with bilateral foraminotomies C6-7. #2 anterior cervical arthrodesis C6-7. #3 placement of titanium 9.9 mm cage filled with DBM and C6-7. #4 occasional hernandez plate and screws across C6-7 >> ROM no limitations History of surgery robot-assist left thorascopic resection of schwannoma from left upper mediastinum. 03/16/2018. SANG. A line. No issues. History of thyroidectomy, total History of tonsillectomy History of tooth extraction S/P LASIK surgery of both eyes Status post hysteroscopic ablation of endometrium Family History Grandmother (Maternal) Family history of diabetes mellitus Mother Ovarian cancer Father Myocardial infarction Social History Smoking Status: Never smoker Second Hand Exposure: No; Do You Dip or Chew Tobacco: No; Tobacco Cessation Education Requested by Patient: No Hx Alcohol Use: No Hx Substance Use: No Preferred Language: Micronesian Communication Ability: Effective Gum Puller Required: No Beliefs That Will Affect Care: None marital status: / Current Living Situation: Alone How many Children do You have: 2 Other Information That Helps Us Care for You: No Feels Safe at Home: Yes Safety Concerns: Feels Safe At This Time Assistive Devices: None Physical Exam Psychiatric: Orientation: alert and oriented x 3 Apperance: appropriately dressed and appropriately groomed Eye Contact: good eye contact Motor Behavior: no abnormal motor movements Speech: normal rate/rhythm/volume of speech Affect: euthymic affect Mood: + dysphoric mood Thought Process: goal directed thought process, linear/logical thought process and clear/coherent thought process Thought Content: reality based without delusions Suicidal Thoughts: denies suicidal thoughts Homicidal Thoughts: denies homicidal thoughts Hallucinations: no auditory hallucinations and no visual hallucinations Cognition: attention grossly intact and language grossly intact Estimated Intelligence: average estimated intelligence Insight: good insight Judgement: good judgement Vital Signs (Past 24 Hours): Last Vital Signs Temp 36.6 C 12/05/22 15:32 Pulse 73 12/05/22 15:32 Resp 17 12/05/22 15:32 BP 133/79 12/05/22 15:32 Pulse Ox 95 12/05/22 15:32 O2 Del Method 12/05/22 15:32 O2 Flow Rate 3 12/03/22 02:05 Review of Systems Psychiatric: no hopelessness, no anhedonia, no change in appetite, no suicidal ideation, no homicidal ideation, no hallucinations and no visual hallucinations Results & Data (PSY) Medications Administered Amlodipine Besylate (Amlodipine Besylate 5 Mg Tab) 2.5 mg PO [facility] Stop: 01/02/23 08:59 Last Admin: 12/05/22 08:36 Dose: 2.5 mg Documented By: Admin: 12/04/22 08:09 Dose: 2.5 mg Documented By: Admin: 12/03/22 09:37 Dose: 2.5 mg Documented By: Aspirin (Aspirin 81 Mg Ectab) 81 mg PO [facility] Stop: 01/02/23 08:59 Last Admin: 12/05/22 08:36 Dose: 81 mg Documented By: Admin: 12/04/22 08:08 Dose: 81 mg Documented By: Admin: 12/03/22 09:42 Dose: 81 mg Documented By: Duloxetine HCl (Duloxetine Hcl 60 Mg Cap) 60 mg PO [facility] Stop: 01/03/23 14:29 Last Admin: 12/05/22 08:35 Dose: 60 mg Documented By: Admin: 12/04/22 16:21 Dose: 60 mg Documented By: Enoxaparin Sodium (Enoxaparin Inj 40 Mg/0.4 Ml Syr) 40 mg SQ [facility] Stop: 01/02/23 08:59 Last Admin: 12/05/22 08:38 Dose: 40 mg Documented By: Admin: 12/04/22 08:11 Dose: 40 mg Documented By: Admin: 12/03/22 09:44 Dose: 40 mg Documented By: Gabapentin (Gabapentin 100 Mg Cap) 100 mg PO TID [facility] Stop: 01/03/23 20:59 Last Admin: 12/05/22 14:24 Dose: 100 mg Documented By: Admin: 12/05/22 08:37 Dose: 100 mg Documented By: Admin: 12/04/22 20:25 Dose: 100 mg Documented By: DAT Insulin Aspart (Insulin Aspart Per Unit) 0 units SC ACHS [facility] Stop: 01/02/23 03:09 Last Admin: 12/05/22 12:24 Dose: 2 units Documented By: DOMINIQUE Co-signed By: CARYN Admin: 12/05/22 08:33 Dose: 2 units Documented By: DOMINIQUE Co-signed By: TIFFANIE Admin: 12/04/22 20:38 Dose: 1 units Documented By: DAT Co-signed By: TOMAS Admin: 12/04/22 17:25 Dose: 3 units Documented By: Co-signed By: YAKOV Admin: 12/04/22 13:01 Dose: 3 units Documented By: Co-signed By: YAKOV Admin: 12/04/22 09:13 Dose: 2 units Documented By: Co-signed By: YAKOV Admin: 12/03/22 21:28 Dose: 3 units Documented By: DAT Co-signed By: TOMAS Admin: 12/03/22 17:42 Dose: 5 units Documented By: Co-signed By: GIOVANI Admin: 12/03/22 12:07 Dose: 4 units Documented By: Co-signed By: ALCON Admin: 12/03/22 04:59 Dose: 5 units Documented By: AMANDA Co-signed By: ROC Insulin Glargine (Lantus Per Unit Charge) 15 units SQ [facility] Stop: 01/02/23 20:59 Last Admin: 12/04/22 20:39 Dose: 15 units Documented By: DAT Co-signed By: TOMAS Admin: 12/03/22 21:29 Dose: 15 units Documented By: DAT Co-signed By: TOMAS Levothyroxine Sodium (Levothyroxine Sodium 150 Mcg Tablet) [facility] Stop: 01/02/23 06:29 Last Admin: 12/05/22 05:45 Dose: 150 mcg Documented By: Admin: 12/04/22 05:07 Dose: 150 mcg Documented By: Admin: 12/03/22 06:21 Dose: 150 mcg Documented By: DOROTHY Melatonin (Melatonin 3 Mg Tab) 9 mg PO [facility] Stop: 01/02/23 20:59 Last Admin: 12/04/22 20:25 Dose: 9 mg Documented By: Admin: 12/03/22 20:10 Dose: 9 mg Documented By: DAT Metoprolol Succinate (Metoprolol Succ 25mg Ext Rel Tab) 25 mg PO QAM [facility] Stop: 01/02/23 08:59 Last Admin: 12/05/22 08:36 Dose: 25 mg Documented By: Admin: 12/04/22 08:08 Dose: 25 mg Documented By: Admin: 12/03/22 09:43 Dose: 25 mg Documented By: Miscellaneous (Desvenlafaxine ~ Order Awaiting Action) 1 each N/A QS [facility] Stop: 01/03/23 15:59 Last Admin: 12/05/22 09:41 Dose: Not Given Documented By: Admin: 12/04/22 22:04 Dose: Not Given Documented By: Admin: 12/04/22 15:50 Dose: Not Given Documented By: Pantoprazole Sodium (Pantoprazole 40 Mg Tab) 40 mg PO BID [facility] Stop: 01/02/23 08:59 Last Admin: 12/05/22 08:36 Dose: 40 mg Documented By: Admin: 12/04/22 20:25 Dose: 40 mg Documented By: Admin: 12/04/22 08:09 Dose: 40 mg Documented By: Admin: 12/03/22 20:10 Dose: 40 mg Documented By: Admin: 12/03/22 09:43 Dose: 40 mg Documented By: Rosuvastatin Calcium (Rosuvastatin Calcium 20 Mg Tab) 40 mg PO [facility] Stop: 01/02/23 20:59 Last Admin: 12/04/22 20:25 Dose: 40 mg Documented By: Admin: 12/03/22 20:10 Dose: 40 mg Documented By: DAT Trazodone HCl (Trazodone Hcl 50 Mg Tab) 50 mg PO [facility] Stop: 01/03/23 20:59 Last Admin: 12/04/22 20:25 Dose: 50 mg Documented By: DAT Coding Level of Care Code INP/OBS CONSULT LVL 3, 45 MIN Diagnoses Obsessive compulsive disorder F42.9 Major depressive disorder with current active episode F32.2 Major depression recurrence: unspecified whether recurrent Major depression episode severity: severe Psychotic features: without psychotic features Time Spent (min) 51
[2022-12-05] MEDS: ROSUVASTATIN CALCIUM 20 MG TAB PO SCH (21:50)
[2022-12-05] MEDS: MELATONIN 3 MG TAB PO SCH (21:51)
[2022-12-05] MEDS: traZODone HCL 50 MG TAB PO SCH (21:51)
[2022-12-05] MEDS: LANTUS PER UNIT CHARGE SQ SCH (22:02)
[2022-12-06] MEDS: LEVOTHYROXINE SODIUM 150 MCG TABLET PO SCH (06:08)
[2022-12-06 07:46] LABS: Calcium 8.8 mg/dl (8.5-10.1); Potassium 3.5 mmol/L (3.5-5.1)
[2022-12-06 07:52] LABS: BUN Creatinine Ratio 17.5 (10-20); Creatinine Clr Calc Pharmacy 69.3 ml/min; Est GFR (African American) 74.1 ml/min; Est GFR (Non-African American) 63.9 ml/min
[2022-12-06] MEDS: METOPROLOL SUCC 25MG EXT REL TAB PO SCH (09:12)
[2022-12-06] MEDS: amLODIPine BESYLATE 5 MG TAB PO SCH (09:12)
[2022-12-06] MEDS: DULoxetine HCL 60 MG CAP PO SCH (09:12)
[2022-12-06] MEDS: PANTOprazole 40 MG TAB PO SCH (09:13)
[2022-12-06] MEDS: GABAPENTIN 100 MG CAP PO SCH ×2 (09:13→13:30)
[2022-12-06] MEDS: ASPIRIN 81 MG ECTAB PO SCH (09:13)
[2022-12-06] MEDS: INSULIN ASPART PER UNIT SC SCH ×2 (09:15→13:31)
[2022-12-06] MEDS: ENOXAPARIN INJ 40 MG/0.4 ML SYR SQ SCH (10:14)
--- NOTE | 2022-12-06 12:55 | Hospitalist Progress Note ---
Date of Service December 06, 2022 Assessment & Plan (1) Chest pain: Plan: Chest Pain Less likely ACS Mild Troponin Elevation --CTA:No pulmonary embolus is seen. --ECHO: Left ventricle is normal in size, normal systolic function, EF 55 to 60%, right ventricle systolic function is qualitatively normal, left atrial size is normal, right atrial size is normal, grade 2 diastolic dysfunction, aortic valve sclerosis mild, without significant aortic valvular stenosis. --EKG:NSR, RBBB, T wave abnormality -Appreciate Cardiology Input Resolved Syncope Possible Autonomic Neuropathy Amnesia ? Depression contributing CT head:No acute intracranial abnormality. MRI Brain:No acute intracranial abnormality. Negative Orthostatics EEG:pending Ammonia, TSH, and B12 within normal Appreciate Neurology, Cardiology Input No rhythm issues on monitor Anxiety/mood disorder/OCD. Continue home meds Appreciate Psychiatry Input Lactic acidosis Chronic Hypertension Continue amlodipine, metoprolol Hyperlipidemia on statin Thyroid CA S/P surgery Postsurgical hypothyroidism TSH normal Continue Levothyroxine DM II Hold home meds Continue Insulin while hospitalized Monitor BGs Ambulatory Dysfunction PT/OT recommends Rehab Plan to discharge to rehab facility if patient agrees DVT Px: Lovenox SQ Code Status Full code Admission and Anticipated Discharge Date Admission Date: December 04, 2022 Subjective Patient is seen and examined at bedside Sitting in chair comfortably Appetite better as per patient Denies any dyspnea, chest pain, dizziness, nausea, abdominal pain Offers no other compaints Review of Systems Review of Systems: All systems reviewed & are unremarkable except as noted in Subjective Physical Exam Physical Exam: Physical Exam: Vitals signs as noted above General Appearance:Obese, no apparent distress Head: normocephalic, Atraumatic Eyes: normal inspection, EOMI Neck: supple, Trachea midline Respiratory/Chest: Decreased breath sounds, CTA, No accessory muscle use Cardiovascular: S1, S2, No murmur Abdomen/GI:Soft, Non tender, Bowel sounds present Extremities/Musculoskeletal:normal inspection, no edema Neurologic/Psych:AAOX3, grossly no focal neurological deficits Skin: normal color, warm Results & Data Results & Data ([facility]) Vital Signs (Past 12 Hours) Vital Signs Temp Pulse Resp BP Pulse Ox O2 Del Method 12/06/22 07:45 36.7 C 64 18 132/73 94 Room Air Laboratory Results [facility] 12/06/22 06:56 Sodium 141 Potassium 3.5 Chloride 104 Carbon Dioxide 30 BUN 17 Creatinine 0.97 Glucose 137 H Calcium 8.8
--- NOTE | 2022-12-06 13:49 | Discharge Summary ---
Date of Service December 06, 2022 Admission HPI Per Admitting Provider History obtained from patient and records. Patient is a fair historian. Medical history significant for CVA, hypertension, hyperlipidemia, DM2 insulin requiring, thyroid CA status post surgery, postsurgical hypothyroidism, anxiety/mood disorder/OCD. Last confinement June 2022 for syncope attributed to UTI and hypotension. Patient ran out of insulin supplies about 2 weeks ago. Poor appetite the last few days. Shaky and unstable on her feet. Some nausea symptoms without abdominal pain. Intermittent left-sided pleuritic chest pain complaints with shortness of breath the last 2 days. No cough symptoms. Patient seen at urgent care center yesterday for evaluation. Patient noted to be confused and distractible. Transient syncopal event witnessed by outpatient provider lasting 10 seconds while patient's BP was being checked.. No witnessed G TC seizures as per outpatient provider note. Urinary incontinence noted. Patient admits to depression but denies suicidality. SBP 140s and BSG BSG 245 at urgent care center. Patient brought by EMS to ER for evaluation. Medical History as above Surgical History : Toe amputation left, laryngoplasty, thyroidectomy, blep haroplasty, cataract surgeries, cholecystectomy Family History : Heart disease, ovarian cancer, MS, DM Personal/Social history : Non-smoker, no EtOH intake, disabled Admission Exam Per Admitting Provider GENERAL: Comfortable, obese, slow to respond to some questions, no respiratory distress SKIN: Normal color, warm HEENT: [place] palpebral conjunctivae, no ptosis, dry buccal mucosa NECK : Supple, short neck, no tenderness CHEST : Decreased breath sounds, no tenderness HEART : RRR, no obvious murmurs ABDOMEN: Some distention, nontender EXTREMITIES : No LE swelling/tenderness, no other conspicuous deformities noted NEUROLOGIC : Coherent but slow to respond to some questions, no facial asymmetry, gait and stance not assessed Principal Diagnosis Chest Pain--Resolved Syncope- Possible Autonomic Neuropathy Mood disorder Discharge Data Allergies Allergy/AdvReac Type Severity Reaction Status Date / Time adhesive tape Allergy Mild PER PT Verified 12/02/22 21:16 "GLUE ON TAPE"--SKIN IRRITATION Consultations 12/02/22 21:41 ED Decision to Admit Stat 12/03/22 11:21 Consult Cardiology Routine 12/04/22 10:40 Consult Psychiatry Routine 12/04/22 10:43 Consult Neurology Routine Procedures Performed Laboratory Results WBC 8.50 K/ul (4.8-10.8) 12/04/22 05:59 RBC 4.33 M/uL (4.20-5.40) 12/04/22 05:59 Hgb 12.2 g/dl (12.0-16.0) 12/04/22 05:59 Hct 35.9 % (37.0-47.0) L 12/04/22 05:59 MCV 82.9 fL (80.0-100.0) 12/04/22 05:59 MCH 28.2 pg (25.0-34.0) 12/04/22 05:59 MCHC 34.0 g/dL (32.0-36.0) 12/04/22 05:59 RDW Std Deviation 39.8 fL (36.4-46.3) 12/04/22 05:59 RDW Coeff of Daphney 13.2 % (11.5-14.5) 12/04/22 05:59 Plt Count 234 K/uL (130-400) 12/04/22 05:59 MPV 9.6 fL (9.4-12.4) 12/04/22 05:59 Immature Gran % (Auto) 0.4 % 12/03/22 06:40 Neut % (Auto) 63.9 % 12/03/22 06:40 Lymph % (Auto) 27.2 % 12/03/22 06:40 [place] % (Auto) 6.7 % 12/03/22 06:40 Eos % (Auto) 0.9 % 12/03/22 06:40 Baso % (Auto) 0.9 % 12/03/22 06:40 Neut # (Auto) 4.74 K/uL (1.40-6.50) 12/03/22 06:40 Lymph # (Auto) 2.02 K/uL (1.2-3.4) 12/03/22 06:40 [place] # (Auto) 0.50 K/uL (0.11-0.59) 12/03/22 06:40 Eos # (Auto) 0.07 K/uL (0-0.50) 12/03/22 06:40 Baso # (Auto) 0.07 K/uL (0-0.2) 12/03/22 06:40 Immature Gran # (Auto) 0.03 K/uL (0.01-0.20) 12/03/22 06:40 APTT 27.1 Seconds (21.0-31.0) 12/03/22 02:10 PTT Ratio 1.0 12/03/22 02:10 Sodium 141 mmol/L (136-145) 12/06/22 06:56 Potassium 3.5 mmol/L (3.5-5.1) 12/06/22 06:56 Chloride 104 mmol/L (98-107) 12/06/22 06:56 Carbon Dioxide 30 mmol/L (21-32) 12/06/22 06:56 Anion Gap 7 (3-11) 12/06/22 06:56 BUN 17 mg/dl (6-23) 12/06/22 06:56 Creatinine 0.97 mg/dl (0.6-1.2) 12/06/22 06:56 Est Cr Clr Drug Dosing 69.3 ml/min 12/06/22 06:56 Est GFR ( Amer) 74.1 ml/min 12/06/22 06:56 Est GFR (Non-Af Amer) 63.9 ml/min 12/06/22 06:56 BUN/Creatinine Ratio 17.5 (10-20) 12/06/22 06:56 Glucose 137 mg/dl (70-99(Fasting)) H 12/06/22 06:56 POC Glucose 182 mg/dl (70-99) H 12/06/22 12:16 Estimat Average Glucose 189 mg/dl 12/04/22 05:59 Hemoglobin A1c 8.2 % (4.5-5.6) H 12/04/22 05:59 Lactate 2.6 mmol/L (0.4-2.0) H* 12/03/22 06:40 Calcium 8.8 mg/dl (8.5-10.1) 12/06/22 06:56 Phosphorus 3.6 mg/dl (2.5-4.9) 12/04/22 05:59 Magnesium 2.0 mg/dl (1.7-2.4) 12/05/22 05:26 Total Bilirubin 0.5 mg/dl (0.2-1.0) 12/02/22 19:30 AST 18 U/L (13-39) 12/02/22 19:30 ALT 20 U/L (7-52) 12/02/22 19:30 Alkaline Phosphatase 60 U/L (34-104) 12/02/22 19:30 Ammonia 24.0 umol/L (18-72) 12/03/22 02:10 Troponin I High Sens 36.4 pg/ml (0-14) H 12/03/22 06:40 Total Protein 7.3 gm/dl (6.0-8.3) 12/02/22 19:30 Albumin 4.4 gm/dl (3.4-5.0) 12/02/22 19:30 Globulin 2.9 gm/dl (2.5-4.0) 12/02/22 19:30 Albumin/Globulin Ratio 1.5 (0.9-2) 12/02/22 19:30 Vitamin B12 364 pg/ml (180-914) 12/04/22 10:59 TSH 1.088 uIu/ml (0.300-4.500) 12/02/22 19:30 Urine Color Yellow 12/02/22 20:10 Urine Appearance Clear (Clear) 12/02/22 20:10 Urine pH 5.5 (4.5-7.5) 12/02/22 20:10 Ur Specific [place] 1.023 (1.000-1.030) 12/02/22 20:10 Urine Protein Trace (Negative) H 12/02/22 20:10 Urine Glucose (UA) 3+ (Negative) H 12/02/22 20:10 Urine Ketones Negative (Negative) 12/02/22 20:10 Urine Blood Negative (Negative) 12/02/22 20:10 Urine Nitrite Negative (Negative) 12/02/22 20:10 Urine Bilirubin Negative (Negative) 12/02/22 20:10 Urine Urobilinogen Negative (Negative) 12/02/22 20:10 Ur Leukocyte Esterase Negative (Negative) 12/02/22 20:10 Urine WBC (Auto) 1-5 /hpf (0-5) 12/02/22 20:10 Urine RBC (Auto) 0-4 /hpf (0-4) 12/02/22 20:10 U Hyaline Cast (Auto) 0 /lpf (0-5) 12/02/22 20:10 U Epithel Cells (Auto) 10-20 /lpf (0-5) H 12/02/22 20:10 Urine Bacteria (Auto) Negative (Negative) 12/02/22 20:10 Urine Opiates Screen Neg (Neg) 12/02/22 20:10 Ur Methadone, Qual Neg (Neg) 12/02/22 20:10 Urine Barbiturates Neg (Neg) 12/02/22 20:10 Ur Phencyclidine (PCP) Neg (Neg) 12/02/22 20:10 U Amphetamin/Meth Scrn Neg (Neg) 12/02/22 20:10 MDMA (Ecstasy) Screen Pos (Neg) H 12/02/22 20:10 U Benzodiazepines Scrn Neg (Neg) 12/02/22 20:10 Ur Cocaine Metabolite Neg (Neg) 12/02/22 20:10 U Marijuana (THC) Screen Neg (Neg) 12/02/22 20:10 Ethyl Alcohol mg/dL < 10.0 mg/dl (<10.0) 12/02/22 19:30 RPR Nonreactive (Nonreactive) 12/04/22 10:59 SARS-CoV-2 (PCR) NEGATIVE (Negative) 12/02/22 20:04 Hepatitis C Ab (EIA) NON-REACTIVE (NON-REACTIVE) 12/04/22 05:59 Hep C Ab Signal/Cutoff <0.02 (<1.00) 12/04/22 05:59 Influenza Type A (PCR) Negative (Neg) 12/02/22 20:04 Influenza Type B (PCR) Negative (Neg) 12/02/22 20:04 RSV (RT-PCR) Negative (Neg) 12/02/22 20:04 Impressions Chest X-Ray 12/02/22 19:40 XR chest 1V portable HISTORY: 57 years-old Female weakness acute weakness COMPARISON: Chest radiograph June 15, 2022 TECHNIQUE: AP view of the chest FINDINGS: Cardiac silhouette is enlarged. No pneumothorax, pleural effusion, airspace consolidation or overt pulmonary edema. Degenerative changes of the shoulders and spine. Surgical clips of the left axilla. Cervical spinal fusion hardware. IMPRESSION: Cardiomegaly without acute process. ACT 112: Negative or not required by law. The above report was generated using voice recognition software. It may contain grammatical, syntax or spelling errors. Electronically signed by: Deepak Martinez M.D. 12/02/2022 8:[address] 12/02/22 19:40 CT head/brain wo con CLINICAL HISTORY: 57 years-old Female with confusion. Acutely altered mental status with confusion TECHNIQUE: Multiple axial CT images of the head were obtained without contrast. A dose lowering technique was utilized adhering to the principles of ALARA. CT DOSE: 1048.27 mGy.cm COMPARISON: Head CT June 15, 2022 FINDINGS: No acute intracranial hemorrhage, midline shift, intracranial mass, hydrocephalus, territorial ischemia or abnormal extra-axial collection. Mildly m otion degraded exam. The calvarium is intact. Prior bilateral lens repair. The paranasal sinuses, mastoid air cells, and middle ear cavities are clear. IMPRESSION: No acute intracranial abnormality. ACT 112: Negative or not required by law. The above report was generated using voice recognition software. It may contain grammatical, syntax or spelling errors. Electronically signed by: Deepak Martinez M.D. 12/02/2022 8:44 PM Chest CTA 12/03/22 02:56 CT angio chest PE protocol CLINICAL HISTORY: cp TECHNIQUE: Multidetector row helical CT of the chest was performed with angiographic protocol. Coronal and sagittal reformations were obtained. Coronal and sagittal MIPS were obtained from the axial data set and were submitted for review. Automated dose lowering techniques and/or adjustment according to patient size were utilized for this exam. Comparison: Comparison is made to CT chest 06/16/2022 FINDINGS: Lungs and pleura: Dependent atelectasis is seen bilaterally. No suspicious pulmonary nodules. Heart and pericardium: Heart size is normal. No pericardial effusion. Vessels: No evidence of pulmonary embolism. Pulmonary trunk measures 31 mm. Mediastinum and laura: Unremarkable. Chest wall and lower neck: Unremarkable. Abdomen: Hepatic steatosis is noted. Bones: ACDF is partially visualized. Degenerative changes are seen in the thoracic spine. IMPRESSION: No pulmonary embolus is seen. ACT 112: Negative or not required by law. Electronically signed by: Ayaz Santana M.D. 12/03/2022 8:16 AM Brain MRI 12/04/22 10:34 Brain MRI WITH AND WITHOUT CONTRAST HISTORY: Global Amnesia TECHNIQUE: Multiplanar multisequence MRI of the brain was performed both before and after the intravenous administration of contrast. COMPARISON STUDY: Head CT 12/02/2022. Brain MRI 05/04/2017. FINDINGS: There are no areas of restricted diffusion to suggest acute infarction. The midline structures are intact. The paranasal sinuses are clear. The mastoid air cells are clear. The ventricles and sulci are within normal limits for age. There is no mass, hematoma, midline shift. The major vascular flow-voids at the skull base are well maintained. Postcontrast sequences show no areas of abnormal enhancement. Prior bilateral lens replacement. IMPRESSION: No acute intracranial abnormality. ACT 112: Negative or not required by law. Electronically signed by: Elgin Mccoy M.D. 12/04/2022 1:29 PM Ordered Studies 12/02/22 19:40 CT head/brain wo con Stat 12/03/22 02:56 CT angio chest PE protocol Stat 12/04/22 10:34 MRI Brain [MR brain wo/w con] Urgent Hospital Course (1) Chest pain: Chest Pain Less likely ACS Mild Troponin Elevation --CTA:No pulmonary embolus is seen. --ECHO: Left ventricle is normal in size, normal systolic function, EF 55 to 60%, right ventricle systolic function is qualitatively normal, left atrial size is normal, right atrial size is normal, grade 2 diastolic dysfunction, aortic valve sclerosis mild, without significant aortic valvular stenosis. --EKG:NSR, RBBB, T wave abnormality -Appreciate Cardiology Input Resolved Syncope Possible Autonomic Neuropathy Amnesia ? Depression contributing CT head:No acute intracranial abnormality. MRI Brain:No acute intracranial abnormality. Negative [employer] EEG:pending Ammonia, TSH, and B12 within normal Appreciate Neurology, Cardiology Input No rhythm issues on monitor Anxiety/mood disorder/OCD. Continue home meds Appreciate Psychiatry Input Lactic acidosis Chronic Hypertension Continue amlodipine, metoprolol Hyperlipidemia on statin Thyroid CA S/P surgery Postsurgical hypothyroidism TSH normal Continue Levothyroxine DM II Hold home meds Continue Insulin while hospitalized Monitor BGs Ambulatory Dysfunction PT/OT recommends Rehab Plan to discharge to rehab facility if patient agrees DVT Px: Lovenox SQ Code Status Full code Total Time Total Time Spent Total Time Spent (In Minutes): 52 minutes Discharge Plan Discharge Items Patient Disposition: Home - Self-Care Reason For Visit: CP Discharge Diagnosis: Chest Pain--Resolved Syncope- Possible Autonomic Neuropathy Mood disorder Condition on Discharge: Fair Activity: Per Instructions section Exercise/Sports: Gradually increase as tolerated Non-emergency contact: Primary Care Provider and Psychiatrist Call non-emergency contact if: you have any medication questions, your symptoms worsen, your pain is concerning for you and you have a fever Follow-up/Referrals: Ivonne French PA-C [Primary Care Provider] - Diet: Carb Consistent or DM2 Addtl Attending Provider Instructions: Follow-up with your primary care physician Gillian TIDWELL in 1 week Follow-up with your psychiatrist in 3 to 4 weeks Seek immediate medical attention if your symptoms reoccur or worsen Please take all medications as instructed on discharge list below. Please call if you have any questions or problems. You can reach a [facility] hospitalist on duty at [facility] 24 hours a day by calling [phone] Pending Studies at Discharge: No Stand-Alone Forms: My [facility] [employer], Smoking Cessation Medications and DC Order Prescriptions: Continued amlodipine 2.5 mg Tablet 2.5 mg PO QAM aspirin 81 mg Tablet,Delayed Release (Dr/Ec) 81 mg PO QAM omeprazole 20 mg Tablet,Delayed Release (Dr/Ec) 20 mg PO BID gabapentin 100 mg Capsule 100 mg PO TID metoprolol succinate 25 mg Tablet Extended Release 24 Hr 25 mg PO QAM rosuvastatin 40 mg Tablet 40 mg PO HS clonazepam 0.5 mg tablet 0.5 mg PO BID PRN (Reason: Anxiety) Rx Instructions: PER PT "HAVE BEEN OUT FOR SOME TIME, CAN'T REMEMBER WHEN TAKEN LAST". levothyroxine [Synthroid] 150 mcg Tablet 150 mcg PO QAM (DME) Omnipod Dash Pods (Gen 4) Cartridge SUBCUT trazodone 50 mg Tablet 50 mg PO HS insulin glargine [Lantus U-100 Insulin] 100 unit/mL Solution 30 unit SUBCUT HS Rx Instructions: PER PT "DID NOT SEND NEEDLES FOR PENS, UNABLE TO TAKE FOR ABOUT 5 DAYS". insulin aspart U-100 [Novolog FlexPen U-100 Insulin] 100 unit/mL (3 mL) Insulin Pen 20 unit SUBCUT TIDM Rx Instructions: PER PT "DID NOT SEND NEEDLES FOR PENS, UNABLE TO TAKE FOR ABOUT 5 DAYS". duloxetine 60 mg Capsule,Delayed Release(Dr/Ec) 60 mg PO QAM Rx Instructions: PER PT "HAVE BEEN OUT FOR SOME TIME, CAN'T REMEMBER WHEN TAKEN LAST". melatonin 10 mg Tablet 10 mg PO HS desvenlafaxine succinate 25 mg Tablet Extended Release 24 Hr 25 mg PO QAM Rx Instructions: PER PT "HAVE BEEN OUT FOR SOME TIME, CAN'T REMEMBER WHEN TAKEN LAST". Striction D 1 tab PO BID metformin 1,000 mg tablet extended release 24 hr 1,000 mg PO BIDM Discharge Orders: Discharge Order (Routine); Ordered 12/06/22 Ordered By: Mainor Tan Admission Data Admit Date/Time: 12/04/22 10:44 Attending Provider: Mainor Tan Admit Provider: Nilton Morales Primary Care Provider: Ivonne French Other Providers: Nilton Morales ; Anant Alejandra ; Madi Porras ; Amrit Orozco ; Yoan Olivares ; Pablo Michael ; Christian Cardenas ; Mayrse Lorenzana ; Carolina Hazel ; Yadira Al ; Boris Beverly ; Ayana Wells ; Megha Cooley ; Christian Alfredo ; Colby Tomas Other Interventions: Discharge Summary Assessment (RN) Last Done: 12/06/22 13:26
--- NOTE | 2022-12-07 22:12 | Electroencephalogram ---
EEG Procedure Note Date of Service December 04, 2022 Start / End Times Start Time: 09:20 End Time: 09:[address] Tan History A 57 year old female with encephaloapthy. EEG performed for evaluation of epileptiform activity. Home Medication List Medication Instructions Recorded Confirmed Type aspirin 81 mg tablet,delayed 81 mg PO QAM 02/18/19 12/02/22 History release omeprazole 20 mg tablet,delayed 20 mg PO BID 02/18/19 12/02/22 History release amlodipine 2.5 mg tablet 2.5 mg PO QAM 03/27/19 12/02/22 History gabapentin 100 mg capsule 100 mg PO TID 07/21/19 12/02/22 History metoprolol succinate 25 mg 25 mg PO QAM 05/24/21 12/02/22 History tablet,extended release 24 hr rosuvastatin 40 mg tablet 40 mg PO HS 05/24/21 12/02/22 History clonazepam 0.5 mg tablet 0.5 mg PO BID PRN Anxiety 12/30/21 12/02/22 History insulin pump cart,cont inf,BT 12/30/21 06/15/22 History (Omnipod Dash Pods (Gen 4) subcutaneous cartridge) levothyroxine 150 mcg tablet 150 mcg PO QAM 12/30/21 12/02/22 History (Synthroid) trazodone 50 mg tablet 50 mg PO HS 05/29/22 12/02/22 History Striction D 1 tab PO BID 12/02/22 12/02/22 History desvenlafaxine succinate 25 mg 25 mg PO QAM 12/02/22 12/02/22 History tablet,extended release 24 hr duloxetine 60 mg capsule,delayed 60 mg PO QAM 12/02/22 12/02/22 History release insulin aspart U-100 100 unit/mL 20 unit subcut TIDM 12/02/22 12/02/22 History (3 mL) subcutaneous pen (Novolog FlexPen U-100 Insulin aspart) insulin glargine 100 unit/mL 30 unit subcut HS 12/02/22 12/02/22 History subcutaneous solution (Lantus U-100 Insulin) melatonin 10 mg tablet 10 mg PO HS 12/02/22 12/02/22 History metformin 1,000 mg tablet,extended 1,000 mg PO BIDM 12/02/22 12/02/22 History release 24hr Inpatient Medication List Discontinued Medications Amlodipine Besylate (Amlodipine Besylate 5 Mg Tab) [facility]: 01/02/23 08:59 Last Admin: 12/06/22 09:12 Dose: 2.5 mg Documented By: Admin: 12/05/22 08:36 Dose: 2.5 mg Documented By: Admin: 12/04/22 08:09 Dose: 2.5 mg Documented By: Admin: 12/03/22 09:37 Dose: 2.5 mg Documented By: Aspirin (Aspirin 81 Mg Ectab) 81 mg PO QAM [facility] Stop: 01/02/23 08:59 Last Admin: 12/06/22 09:13 Dose: 81 mg Documented By: Admin: 12/05/22 08:36 Dose: 81 mg Documented By: Admin: 12/04/22 08:08 Dose: 81 mg Documented By: Admin: 12/03/22 09:42 Dose: 81 mg Documented By: Duloxetine HCl (Duloxetine Hcl 60 Mg Cap) [facility] [place] Stop: 01/03/23 14:29 Last Admin: 12/06/22 09:12 Dose: 60 mg Documented By: Admin: 12/05/22 08:35 Dose: 60 mg Documented By: Admin: 12/04/22 16:21 Dose: 60 mg Documented By: Enoxaparin Sodium (Enoxaparin Inj 40 Mg/0.4 Ml Syr) 40 mg SQ QAM [facility] Stop: 01/02/23 08:59 Last Admin: 12/06/22 10:14 Dose: Not Given Documented By: Admin: 12/05/22 08:38 Dose: 40 mg Documented By: Admin: 12/04/22 08:11 Dose: 40 mg Documented By: Admin: 12/03/22 09:44 Dose: 40 mg Documented By: Gabapentin (Gabapentin 100 Mg Cap) 100 mg PO TID [facility] Stop: 01/03/23 20:59 Last Admin: 12/06/22 13:30 Dose: 100 mg Documented By: Admin: 12/06/22 09:13 Dose: 100 mg Documented By: Admin: 12/05/22 21:50 Dose: 100 mg Documented By: Admin: 12/05/22 14:24 Dose: 100 mg Documented By: Admin: 12/05/22 08:37 Dose: 100 mg Documented By: Admin: 12/04/22 20:25 Dose: 100 mg Documented By: DAT Gadobutrol (Gadobutrol 65ml Vial) 9 ml IV ONCE ONE Stop: 12/04/22 12:47 Last Admin: 12/04/22 12:49 Dose: 9 ml Documented By: SGE Sodium Chloride (Nss 1000ml) 1,000 mls @ 999 mls/hr IV .Q1H1M [facility] Stop: 12/02/22 20:45 Last Infusion: 12/02/22 21:26 Dose: 0 mls/hr Documented By: Admin: 12/02/22 20:22 Dose: 999 mls/hr Documented By: MES Magnesium Sulfate/Dextrose (Magnesium Sulfate / D5w) 1 gm in 100 mls @ 100 mls/hr IV NOW STA Stop: 12/02/22 21:15 Last Infusion: 12/02/22 21:26 Dose: 0 mls/hr Documented By: Admin: 12/02/22 20:22 Dose: 100 mls/hr Documented By: MES Sodium Chloride (Nss 1000ml) 1,000 mls @ 999 mls/hr IV .Q1H1M ONE Stop: 12/02/22 22:06 Last Infusion: 12/02/22 22:21 Dose: 0 mls/hr Documented By: Admin: 12/02/22 21:26 Dose: 999 mls/hr Documented By: RSL Lactated Ringer's (Lr) 1,000 mls @ 200 mls/hr IV .Q5H ONE Stop: 12/03/22 04:18 Last Infusion: 12/03/22 05:35 Dose: 0 mls/hr Documented By: Admin: 12/03/22 00:26 Dose: 200 mls/hr Documented By: RSL Lactated Ringer's (Lr) 1,000 mls @ 100 mls/hr IV .Q10H ONE Stop: 12/03/22 14:59 Last Infusion: 12/03/22 15:07 Dose: 0 mls/hr Documented By: Admin: 12/03/22 04:59 Dose: 100 mls/hr Documented By: AMANDA Insulin Aspart (Insulin Aspart Per Unit) 0 units SC ACHS [facility] Stop: 01/02/23 03:09 Last Admin: 12/06/22 13:31 Dose: 4 units Documented By: KEVYN Co-signed By: PURNIMA Admin: 12/06/22 09:15 Dose: 2 units Documented By: KEVYN Co-signed By: CARMELLA Admin: 12/05/22 22:02 Dose: 3 units Documented By: TEE Co-signed By: SHELLY Admin: 12/05/22 17:06 Dose: 2 units Documented By: DOMINIQUE Co-signed By: TIFFANIE Admin: 12/05/22 12:24 Dose: 2 units Documented By: DOMINIQUE Co-signed By: CARYN Admin: 12/05/22 08:33 Dose: 2 units Documented By: DOMINIQUE Co-signed By: TIFFANIE Admin: 12/04/22 20:38 Dose: 1 units Documented By: AMJeffry Co-signed By: TOMAS Admin: 12/04/22 17:25 Dose: 3 units Documented By: Co-signed By: YAKOV Admin: 12/04/22 13:01 Dose: 3 units Documented By: Co-signed By: YAOKV Admin: 12/04/22 09:13 Dose: 2 units Documented By: Co-signed By: YAKOV Admin: 12/03/22 21:28 Dose: 3 units Documented By: DAT Co-signed By: TOMAS Admin: 12/03/22 17:42 Dose: 5 units Documented By: Co-signed By: GIOVANI Admin: 12/03/22 12:07 Dose: 4 units Documented By: Co-signed By: ALCON Admin: 12/03/22 04:59 Dose: 5 units Documented By: AMANDA Co-signed By: ROC Insulin Glargine (Lantus Per Unit Charge) 15 units SQ HS [facility] Stop: 01/02/23 20:59 Last Admin: 12/05/22 22:02 Dose: 15 units Documented By: TEE Co-signed By: SHELLY Admin: 12/04/22 20:39 Dose: 15 units Documented By: AMJeffry Co-signed By: TOMAS Admin: 12/03/22 21:29 Dose: 15 units Documented By: AMJeffry Co-signed By: TOMAS Insulin Glargine (Lantus Per Unit Charge) 15 units SQ TODAY@0309 [facility] Stop: 12/03/22 06:00 Last Admin: 12/03/22 05:39 Dose: 15 units Documented By: DOROTHY Co-signed By: JEAN Ioversol (Optiray 320 500ml) 125 ml IV ONCE ONE Stop: 12/03/22 04:21 Last Admin: 12/03/22 04:20 Dose: 115 ml Documented By: VU Levothyroxine Sodium (Levothyroxine Sodium 150 Mcg Tablet) 150 mcg PO DAILYBB [facility] Stop: 01/02/23 06:29 Last Admin: 12/06/22 06:08 Dose: 150 mcg Documented By: Admin: 12/05/22 05:45 Dose: 150 mcg Documented By: Admin: 12/04/22 05:07 Dose: 150 mcg Documented By: Admin: 12/03/22 06:21 Dose: 150 mcg Documented By: DOROTHY Melatonin (Melatonin 3 Mg Tab) 9 mg PO HS [facility] Stop: 01/02/23 20:59 Last Admin: 12/05/22 21:51 Dose: 9 mg Documented By: Admin: 12/04/22 20:25 Dose: 9 mg Documented By: Admin: 12/03/22 20:10 Dose: 9 mg Documented By: DAT Metoprolol Succinate (Metoprolol Succ 25mg Ext Rel Tab) 25 mg PO QAM [facility] Stop: 01/02/23 08:59 Last Admin: 12/06/22 09:12 Dose: 25 mg Documented By: Admin: 12/05/22 08:36 Dose: 25 mg Documented By: Admin: 12/04/22 08:08 Dose: 25 mg Documented By: Admin: 12/03/22 09:43 Dose: 25 mg Documented By: Miscellaneous (Desvenlafaxine ~ Order Awaiting Action) 1 each N/A QS [facility] Stop: 01/03/23 15:59 Last Admin: 12/06/22 09:13 Dose: Not Given Documented By: Admin: 12/05/22 23:20 Dose: Not Given Documented By: Admin: 12/05/22 17:07 Dose: Not Given Documented By: Admin: 12/05/22 09:41 Dose: Not Given Documented By: Admin: 12/04/22 22:04 Dose: Not Given Documented By: Admin: 12/04/22 15:50 Dose: Not Given Documented By: Pantoprazole Sodium (Pantoprazole 40 Mg Tab) 40 mg PO BID [facility] Stop: 01/02/23 08:59 Last Admin: 12/06/22 09:13 Dose: 40 mg Documented By: Admin: 12/05/22 21:51 Dose: 40 mg Documented By: Admin: 12/05/22 08:36 Dose: 40 mg Documented By: Admin: 12/04/22 20:25 Dose: 40 mg Documented By: Admin: 12/04/22 08:09 Dose: 40 mg Documented By: Admin: 12/03/22 20:10 Dose: 40 mg Documented By: Admin: 12/03/22 09:43 Dose: 40 mg Documented By: Potassium Chloride (Potassium Chloride Crtab 20 Meq Tabcr) 40 meq PO ONE ONE Stop: 12/05/22 09:16 Last Admin: 12/05/22 09:41 Dose: 40 meq Documented By: DOMINIQUE Rosuvastatin Calcium (Rosuvastatin Calcium 20 Mg Tab) 40 mg PO [facility] Stop: 01/02/23 20:59 Last Admin: 12/05/22 21:50 Dose: 40 mg Documented By: Admin: 12/04/22 20:25 Dose: 40 mg Documented By: Admin: 12/03/22 20:10 Dose: 40 mg Documented By: DAT Trazodone HCl (Trazodone Hcl 50 Mg Tab) 50 mg PO HS [facility] Stop: 01/03/23 20:59 Last Admin: 12/05/22 21:51 Dose: 50 mg Documented By: Admin: 12/04/22 20:25 Dose: 50 mg Documented By: DAT Description This is a 21 electrode EEG with a single channel dedicated to limited EKG. The electrodes were placed in accordance with the International 10-20 system. REPORT: At the onset of the EEG, the patient is awake. The background activity consist of 10-11 Hz, persistent, posteriorly dominant, moderate amplitude, symmetric and rhythmic activity that is reactive to eye opening. Anteriorly, it consist of a mixture of low voltage indeterminate activity and 15-25 Hz, persistent, low amplitude, symmetric and rhythmic activity. Stepwise intermittent photic stimulation does not induce any abnormalities. Drowsiness is characterized by low amplitude mixed frequency activity, roving eye movements, and decreased eye blinking and muscle artifact. Interpretation IMPRESSION: This is a normal awake and drowsy EEG. There is no evidence of focal slowing or epileptiform activity.
[2022-12-08 16:57] LABS: MDA negative; MDEA negative; MDMA (Ecstasy) Urine, Confirm negative
== END 2022-12-06 15:54 | disposition home or self-care (01) | DRG 74 ==
LOC: ED 19:18 → 2S 19:18 → SUATTDRO 12-03 03:06 → 2S 12-03 05:20 → 3W 12-05 14:30

== ENCOUNTER 2024-01-29 21:03 | Inpatient (IN) ==
--- OUTSIDE RECORDS SUMMARY | 2024-01-29 21:18 | External Medical Summary | Summary of Care ---
Author Name Unknown Organization [facility] Address [address] [address] Phone [phone] Care Team Providers Care Tag And Label Cutter Name Role Phone Ivonne French PA-C Primary Care Provider [phone] Reason for Visit * Reason Comments Treatment HOLD BLOOD HGB 7.9 ( Pt refusing blood) Encounter Details Date Type Department Care Team (Late st Contact Info) Description 01/28/2024 8:30 AM EDT Hem/Onc Treatment Hematology/Oncology Treatment, [facility] [address] [place] [address] [facility], Chair4 Hem Onc [address] [place], [place] [id number] Allergies Active Allergy Reactions Criticality Noted Date Comments Adhesive Tape 04/21/2016 Glue off the old style medical tape. documented as of this encounter (statuses as of 01/28/2024) Medications Medication Sig Dispensed Refills Start Date End Date Status Aspirin 81 MG Tablet Take 1 Tablet by mouth in the morning. 0 Active DULoxetine HCl 60 MG Oral Capsule Delayed Release Particles (Cymbalta) Take 1 Capsule by mouth in the morning. 180 Capsule 0 11/24/2022 Active OneTouch Delica Lancets 33G Use to test blood sugar three times daily E 11.9 300 Each 5 05/25/2023 Active OneTouch Verio w/Device Kit Use up to 3 times a day E11.9 1 Kit 0 05/25/2023 Active Pen [place] 32G X 4 MM Use as directed. Use to inject insulin 4 times daily 100 Each 5 05/25/2023 Active Triamcinolone Acetonide 0.1 % External Ointment (Aristocort)Indica tions:Contact dermatitis, unspecified contact dermatitis type, unspecified trigger Apply topically to affected area 2 times a day. Apply to hands and feet 80 g 2 05/25/2023 Active Levothyroxine Sodium 150 MCG Oral Tablet (Synthroid) One tab daily Wednesday through Wednesday - half tab daily Wednesday and wednesday 90 Tablet 1 07/20/2023 Active Isosorbide Mononitrate ER 30 MG Oral Tablet Extended Release 24 Hour (Imdur) Take 1 Tablet by mouth in the morning. 30 Tablet 1 09/03/2023 Active Magnesium 400 MG Oral TabletIndications: Restless legs syndrome Take 1 Tablet by mouth at bedtime. 90 Tablet 1 09/03/2023 Active Mounjaro 10 MG/0.5ML Subcutaneous Solution Pen-injector (Tirzepatide) Inject 10 mg under the skin once a week. 6 mL 1 09/09/2023 Active Linzess 72 MCG Oral Capsule (linaCLOtide)Indic ations:Drug-induce d constipation Take 1 Capsule by mouth daily before breakfast. 90 Capsule 1 10/14/2023 Active Omeprazole 20 MG Oral Capsule Delayed Release (PriLOSEC) Take 1 Capsule by mouth in the morning and 1 Capsule before bedtime. 180 Capsule 1 10/14/2023 Active Rosuvastatin Calcium 20 MG Oral Tablet (Crestor) Take 1 Tablet by mouth daily. 90 Tablet 3 11/16/2023 Active OneTouch Verio In Vitro Strip (Glucose Blood) Use up to 3 times a day E11.9 400 Strip 3 11/19/2023 Active Allopurinol 300 MG Oral Tablet (Zyloprim)Indicati ons: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sion (HCC) Take 1 Tablet by mouth in the morning. 30 Tablet 2 11/23/2023 Active Insulin Glargine Solostar 100 UNIT/ML Subcutaneous Solution Pen-injector (Lantus SoloStar) Inject 25 Units under the skin at bedtime. 45 mL 3 12/28/2023 Active Metoprolol Succinate ER 25 MG Oral Tablet Extended Release 24 Hour (toPROL XL)Indications:Cor onary artery disease involving anvik coronary artery of anvik heart without angina pectoris Take 2 Tablets by mouth daily in the morning. 135 Tablet 1 12/28/2023 Active Acyclovir 400 MG Oral Tablet (Zovirax) Take 1 Tablet by mouth in the morning and 1 Tablet before bedtime. 60 Tablet 3 12/28/2023 Active levoFLOXacin 500 MG Oral Tablet (Levaquin) Take 1 Tablet by mouth daily in the morning. 30 Tablet 1 12/29/2023 Active OneTouch Verio In Vitro Strip (Glucose Blood) Use when checking blood glucose levels 4 times per day 200 Strip 5 12/28/2023 Active OneTouch Delica Plus [id number] Use as directed. Use when checking blood glucose levels 4 times per day 200 Each 10 12/28/2023 Active BD Pen Needle Ellie U/F 32G X 4 MM (Insulin Pen Needle) Use with insulin pens to inject insulin under the skin 4 times per day 150 Each 12/28/2023 Active NovoLOG FlexPen 100 UNIT/ML Subcutaneous Solution Pen-injector (insulin aspart) Inject under the skin as directed per the following sliding scale: less than 80 mg/dL: no insulin 81-100: 2 units 101-150: 4 units 151-190: 5 units 191 - 230: 6 units 231 - 270: 7 units 271 - 310: 8 units 311 - 350: 9 units 351 - 390: 10 units 21 mL 3 12/28/2023 Active Magic Swizzle (Lidocaine-Benadry l-Maalox) oral solutionIndication s: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sion (HCC),Hypervolemia , unspecified hypervolemia type Swish and spit 15 mL in the morning and 15 mL at noon and 15 mL before bedtime. 300 mL 1 01/04/2024 Active Furosemide 40 MG Oral Tablet (Lasix)Indications :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sion (HCC),Hypervolemia , unspecified hypervolemia type Take 1 Tablet by mouth in the morning. 31 Tablet 01/05/2024 Active Potassium Chloride ER 20 MEQ Oral Tablet Extended Release Take 1 Tablet by mouth in the morning. 31 Tablet 01/05/2024 Active Calcium Carb-Cholecalcifer ol 600-20 MG-MCG Oral Tablet (Caltrate 600+D3)Indications :Hypocalcemia Take 1 Tablet by mouth every morning. 90 Tablet 1 01/10/2024 Active Sennosides-Docusat e Sodium 8.6-50 MG Oral Tablet (Senokot S)Indications:Cons tipation, unspecified constipation type Take 2 Tablets by mouth in the morning and 2 Tablets before bedtime. 60 Tablet 1 01/10/2024 Active Lactulose 10 GM/15ML Oral Solution (Constulose) Take 15 mL by mouth 2 times a day as needed (constipation). severe constipation 237 mL 1 01/21/2024 Active Bisacodyl 10 MG Rectal Suppository (Dulcolax)Indicati ons:Constipation, unspecified constipation type Administer 1 Suppository into the rectum in the morning. 12 Suppository 0 01/21/2024 Active documented as of this encounter (statuses as of 01/28/2024) Active Problems Problem Noted Date Diagnosed Date Hypomagnesemia 01/07/2024 Hypocalcemia 01/07/2024 Acute myeloid leukemia 01/07/2024 Encounter to discuss test results 01/07/2024 Immunocompromised state due to drug therapy 12/09 Hypokalemia 12/18/2023 EBONY (acute kidney injury) 12/10/2023 Acute urinary retention 12/10/2023 At high risk for fluid overload 12/10/2023 Antineoplastic chemotherapy induced pancytopenia 12/09/2023 Precordial pain 12/05/2023 Thrombocytopenia 12/05/2023 Coronary artery disease 12/05/2023 Hyperkalemia 11/26/2023 Hyperphosphatemia 11/26/2023 Encounter for antineoplastic chemotherapy 2023 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 nya 11/24/2023 DM type 2 causing neurological disease ASCVD (arteriosclerotic cardiovascular disease) 11/24/2023 Febrile neutropenia 11/24/2023 Pyogenic inflammation of bone 11/24/2023 Osteomyelitis of great toe of left foot 11/09/19 24 Varicose veins of both lower extremities 023 Gastroesophageal reflux disease 08/15/2021 Hyperlipidemia 08/15/2021 Hyperthyroidism 08/15/2021 MEDICATION USE AGREEMENT 08/15/2021 Toe amputee 07/31/2021 S/P foot surgery, right 07/17/2021 Major depressive disorder, single episode, mild 01/06/2021 Diabetic polyneuropathy asso ciated with type 2 diabetes mellitus 01/06/2021 Vocal fold paralysis, right 10/09/2019 Overview: Post op HNP (herniated nucleus pulposus), cervical 05/09 Diabetic retinopathy associa bimal with diabetes mellitus due to underlying condition 08/24/2016 Herpes simplex virus infection 06/07/2015 NBA (generalized anxiety disorder) 03/11/2015 Compulsive eating patterns 08/09/2013 Herpes simplex type 1 antibody positive 06/07/20 13 Enchondroma of femur 05/10/2013 Diabetes mellitus 12/03/2011 Overview: ICD-10 update of inactive term OBESITY, BMI 30-34 (SEE ACTUAL BMI) 01/30/2010 Overview: Per Obesity Taxonomy Non-toxic multinodular goiter 12/09/2009 Overview: Main path dx was Nodular hyperplasia Postsurgical hypothyroidism 12/09/2009 Gastroparesis 07/13/2008 Diabetic neuropathy 12/14/2007 Idiopathic scoliosis 05/16/2007 Overview: Mild lower lumbar ADVANCE DIRECTIVE INFORMATION 03/10/2006 Overview: Pt given information Depressive disorder 03/23/2003 Overview: ICD-10 update of inactive term family history ovarian cancer (mother) documented as of this encounter (statuses as of 01/28/2024) Resolved Problems Problem Noted Date Diagnosed Date Resolved Date Acute hypoxemic respiratory failure 12/13/2023 01/07/2024 Toe osteomyelitis, left 05/29/2021 02/0 02/2022 Ulcer of left great toe due to diabetes mellitus 05/29/2021 11/10/2021 Morbid obesity, unspecified obesity type 02/13/2020 04/24/2021 Diabetes mellitus 08/16/2013 11/24/2022 Candidal vulvovaginitis 12/02/201003/08 History of thyroid cancer 12/05/2009 Overview: Incidental finding of a 1 mm focus of 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 OBESITY, UNSPECIFIED 03/23/2003 010 Overview: Per Obesity Taxonomy documented as of this encounter (statuses as of 01/28/2024) Immunizations Name Administration Dates Next Due COVID-19 mRNA, LNP-s, No Pre serve, 2-Dose Series (Moderna) 08/19/2021,07/22/2021 Hepatitis B, 20+ yrs 06/25/2017,03/28/2015 Pneumococcal Polysaccharide PPV23 (Pneumovax) TD, Preservative Free 10/26/2019 TDAP (age 11 and older)(Adacel) 02/28/2009 documented as of this encounter Social History Tobacco Use Types Packs/Day Years Used Date Smoking Tobacco: Never Passive Smoke Exposure: Current Smokeless Tobacco: Never Alcohol Use Standard Drinks/Week Comments No 0 (1 standard drink = 0.6 oz pur e alcohol) PHQ-2 Answer Date Recorded PHQ Adult Total Score 2 12/30/2023 Hunger Vital Sign Answer Date Recorded Within the past 12 months, y ou worried that your food would run out before you got the money to buy more. Never true 12/30/19 24 Within the past 12 months, t he food you bought just didn't last and you didn't have money to get more. Never true 12/30/2023 Sex and Gender Information Value Date Recorded Sex Assigned at Female 11/24/2022 9:33 AM EST Gender Identity Female 11/24/2022 9:33 AM EST Sexual Orientation Straight 07/22/2021 1: 54 PM EDT Job Start Date Occupation Industry Not on file Not on file Not on file documented as of this encounter Functional Status Functional Status Response Date of Assess ment Are you deaf or do you have serious difficulty h earing? No 11/24/2023 Are you blind or do you have serious difficulty seeing, even when wearing glasses? No 11/24/2023 Do you have serious difficul ty walking or climbing stairs? (5 years old or older) No 11/24/2023 Do you have difficulty dress ing or bathing? (5 years old or older) No 11/24/2023 Because of a physical, menta l, or emotional condition, do you have difficulty doing errands alone such as visiting a doctor s office or shopping? (15 years old or older) No 11/24/19 24 Cognitive Status Response Date of Assessm ent Because of a physical, menta l, or emotional condition, do you have serious difficulty concentrating, remembering, or making decisions? (5 years old or older) No 11/24/2023 documented as of this encounter Nursing Notes * Zahraa Drake, RN - 01/28/2024 8:30 AM EDT Pt presents today for possible blood transfusion. Pt states she is feeling well. Pt denies any abnormal bleeding from nose, bowel or bladder. Pt denies feeling tachycardic. Pt is refusing PRBC's today. Pt is wishing to reschedule until Wednesday when she sees Dr. Verde in the office. HGB-7.9. Patient left IVC by ambulating. Unaccompanied. Voiced no complaints. Zahraa Drake RN 01/28/2024 8:33 AM documented in this encounter Plan of Treatment Upcoming Encounters Date Type Department Care Team (Late st Contact Info) Description 01/31/2024 8:40 AM EDT Laboratory Laboratory, [address] [address] [facility], Lab [address] [place] [address] 01/31/2024 9:30 AM EDT Office Visit Hematology/Oncology, [address] [address] Ortega Verde MD [address] [place] [address] 01/31/2024 10:00 AM EDT Hem/Onc Treatment Hematology/Oncology Treatment, [address] [place] [address] Gl, Bed1 Hem Onc [address] [place] [address] 02/08/2024 12:30 PM EDT Office Visit Podiatry [address] [place] [address] Nayan Franklin, [facility] [address] [place] [address] 02/09/2024 11:00 AM EDT Office Visit Palliative Medicine, [facility] [address] [facility] 5th [place] [address] Nati Easley PA-C [address] [place] [address] 02/10/2024 11:40 AM EDT [address] [phone] Ivonne French PA-C [address] [facility] [place] [address] 02/11/2024 1:00 PM EDT Office Visit Pharmacy, [facility] [address] [facility] [place] [address] [facility] [address] [facility] [place] [address] 03/14/2024 10:00 AM EDT [address] [phone] Ivonne French PA-C [address] [facility] [address] 04/18/2024 10:00 AM EDT Office Visit [facility] [address] [place] [facility] [phone] Ivonne French PA-C [address] [place] [address] 05/10/2024 8:15 AM EDT Office Visit Ophthalmology, [place] [address] [facility] [place] [address] Migel Ramires MD [address] [facility] [place] [address] 05/16/2024 10:00 AM EDT Office Visit [facility] [address] [place] [facility] [place] [phone] Ivonne French PA-C [address] [place] [facility] [place] [address] Scheduled Procedures Name Priority Associated Diagnoses Date/Ti me COLONOSCOPY FLEXIBLE PROXIMAL DIAGNOSTIC Recall History of colon polyps Health Maintenance Due Date Last Done Comments Pneumococcal Vaccine: Pediatrics (0 to 5 Years) and At-Risk Patients (6 to 64 Years) (2 of 2 - PCV) 12/20/2007 12/20/2006 Hepatitis B (3 of 3 - 19+ 3-dose series) 08/20/2017 06/25/2017, 03/28/2015 COVID-19 Vaccine (3 - Moderna risk series) 09/16/2021 08/19/2021, 07/22/2021 Influenza Vaccine (FLU shot) (#1) 2023 Diabetic Foot Exam 11/24/2023 11/24/2022, 0 07/22/2021, 07/03/2020, Additional history exists Mammogram 01/28/2024 01/27/2023, 01/07, 08/03/2022, Additional history exists Diabetic Eye Exam 05/06/2024 05/06/2023, , 01/21/2022, Additional history exists HbA1c 05/09/2024 11/09/2023, 08/0 06/2023, 04/27/2023, Additional history exists Albumin/Creatinine Ratio 11/15/2024 024, 12/25/2022, 09/16/2022, Additional history exists TSH 12/12/2024 12/12/2023, 04/09, 12/25/2022, Additional history exists Depression Screening 12/30/2024 12/30/2023 GFR 01/27/2025 01/28/2024, 01/07, 01/24/2024, Additional history exists PAP SMEAR-EVERY 3 YRS,AGES 18-100 09/09/2026 09/09/2023, 12/12/2021, 12/20/2015, Additional history exists COLONOSCOPY-EVERY 5 YRS AGES 18-100 06/03/2027 06/03/2022, 06/03/2022, 12/16/2016, Additional history exists DTaP,Tdap,and Td Vaccines (4 - Td or Tdap) 09/24/2031 09/24/2021, 10/26/2019, 02/28/2009 GARDASIL-HPV IMMUNIZATION SERIES Aged Out No longer eligible based on patient's age to complete this topic MENINGOCOCCAL (MENACTRA/MENVEO) Aged Out No longer eligible based on patient's age to complete this topic Zoster Vaccines Discontinued documented as of this encounter Medical Devices Implanted Type Area House Manager Device Identifier Shelf Expiration Date Model / Serial / Lot Lens Intraoc 21.0 - [id number] - [id number] Implanted:Qty : 1 on 07/06/2017 by Luis Eduardo Cole MD at OR [facility] Left: Eye [employer] 01/05/2022 [id number] / [id number] / Lens Intraoc 21.0 - [id number] - [id number] Implanted:Qty : 1 on 07/20/2017 by Luis Eduardo Cole MD at OR [facility] Right: Eye [employer] 01/05/2022 [id number] / [id number] / Syringe Prolaryn Del 1.0cc - [id number] Implanted:Qty : 1 on 11/20/2019 by Amber Jain MD at [place] [facility] Right: Mouth [employer] 10/21/2021 [id number] / / [id number] Implant Silastic 7 Silicone Sw - [id number] Implanted:Qty : 1 on 05/28/2020 by Farhat Pate MD at [place] [facility] Right: Throat Edupath [id number] / / documented as of this encounter Advance Directives Latest Code Status on File Code Status Date Activated Date Inactivated Comments No Code 11/24/2023 7:24 PM 12/28/2023 9:25 PM This order reflects the patients wishes and were consensually agreed upon. Question Answer Comments Discussion of Advance Directives occurred with: Patient Does the patient have a Living Will? No Does the patient have Health Care Power of Skip Pitman? No Code Status History Code Status Date Activated Date Inactivated Comments Full Code 05/28/2020 5:20 PM 05/29/2020 6:19 PM Question Answer Comments Discussion of Advance Directives occurred with: Not Discussed Full Code 07/20/2017 6:51 AM 07/20/2017 12:59 PM This order reflects the patients wishes and were consensually agreed upon. Full Code 07/06/2017 7:58 AM 07/06/2017 1:37 PM This order reflects the patients wishes and were consensually agreed upon. Care Teams Tag And Label Cutter Relationship Specialty Start Date End Date Ivonne French PA-C [address] [place] [address] PCP - General Physician Tab Builder 07/24/21 documented as of this encounter
--- OUTSIDE RECORDS SUMMARY | 2024-01-29 21:19 | External Medical Summary ---
Author Name Unknown Address Unknown Organization K1F[facility] [address] [facility] [place] [address] Laboratory Report Ordering Provider Test Date Status BRADLY BERMAN 01/24/2024 10:28:49 Final Observation Date Value Abnormality Reference (Units ) Status BUN 01/24/2024 10:28:49 21 Above high normal 6-20 (mg/dL) Final Creatinine 01/24/2024 10:28:49 0.8 0.5-1.0 (mg/dL) Final Glomerular filtration rate/1.73 sq M.predicted [Volume Rate/Area] in Serum, Plasma or Blood by Creatinine-based formula (CKD-EPI) 01/24/2024 10:28:49 81 >=60 (mL/min) Final eGFR is calculated based on the CKD-EPI 2020 equation SODIUM 01/24/2024 10:28:49 135 135-146 (m mol/L) Final Potassium 01/24/2024 10:28:49 4.5 3.5-5.1 (m mol/L) Final Cl 01/24/2024 10:28:49 97 Below low normal 98- 107 (mmol/L) Final CO2 01/24/2024 10:28:49 27 22-32 (mmo l/L) Final Anion gap 01/24/2024 10:28:49 11 7-15 (mmol /L) Final Glucose 01/24/2024 10:28:49 493 Above high normal 70 -120 (mg/dL) Final Albumin 01/24/2024 10:28:49 4.0 3.8-5.0 (g /dL) Final AST (Aspartate aminotransferase) 01/24/2024 10:28:49 32 10-35 (U/L) Fin al Alk Phos 01/24/2024 10:28:49 155 Above high normal 35 -130 (U/L) Final Bilirubin, Total 01/24/2024 10:28:49 0.5 <=1 .2 (mg/dL) Final Calcium 01/24/2024 10:28:49 8.8 8.4-10.2 ( mg/dL) Final Protein 01/24/2024 10:28:49 7.5 6.0-8.3 (g /dL) Final ALT (Alanine aminotransferase) 01/24/2024 10:28:49 59 Above high normal 10-35 (U/L) Final Performing Location [facility] [place] [address]. [place] [address]
--- OUTSIDE RECORDS SUMMARY | 2024-01-29 21:19 | External Medical Summary | Summary of Care ---
Author Name Unknown Organization [facility] Address [address] [place] [address] Phone [phone] Care Team Providers Care Lock Plater Name Role Phone Ivonne French PA-C Primary Care Provider [phone] Reason for Visit * Reason Comments Follow Up Encounter Details Date Type Department Care Team (Late st Contact Info) Description 01/24/2024 11:00 AM EDT Office Visit Hematology/Oncology, [facility] [address] [place] [address] Dasha Morris CRNP [address], [place] [id number] 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sion (HCC)*; Constipation, unspecified constipation type; Encounter to discuss test results Allergies Active Allergy Reactions Criticality Noted Date Comments Adhesive Tape 04/21/2016 Glue off the old style medical tape. documented as of this encounter (statuses as of 01/24/2024) Medications Medication Sig Dispensed Refills Start Date [...] E11.9 1 Kit 0 05/25/2023 Active Pen Owings 32G X 4 MM Use as directed. [...] Hour (toPROL XL)Indications:Cor onary artery disease involving [place] coronary artery of [place] heart without angina pectoris Take 2 Tablets [...] per day 200 Strip 5 12/28/2023 Active QuinticTouch Delica Plus [id number] Use as directed. Use when checking blood glucose levels 4 times per day 200 Each 10 12/28/2023 Active BD Pen Needle Ellie U/F 32G X 4 MM (Insulin Pen Needle) Use with insulin pens to inject insulin under the skin 4 times per day 150 Each 3 12/28/2023 Active NovoLOG FlexPen 100 UNIT/ML Subcutaneous [...] and 15 mL before bedtime. 300 mL 01/04/2024 Active Furosemide 40 MG Oral Tablet [...] as of this encounter (statuses as of 01/24/2024) Active Problems Problem Noted Date Diagnosed Date [...] as of this encounter (statuses as of 01/24/2024) Resolved Problems Problem Noted Date Diagnosed Date [...] as of this encounter (statuses as of 01/24/2024) Immunizations Name Administration Dates Next Due COVID-19 [...] on file documented as of this encounter Last Filed Vital Signs Vital Sign Reading Time Taken Comments Blood Pressure 109/50 01/24/2024 11:09 AM EDT Pulse 75 01/24/2024 11:09 AM EDT Temperature 37 C (98.6 F) 01/24/2024 11: 09 AM EDT Respiratory Rate - - Oxygen Saturation 100% 01/24/2024 11: 09 AM EDT Inhaled Oxygen Concentration - - Weight 82.5 kg (181 lb 14.4 oz) 024 11:09 AM EDT Height - - Body Mass Index 27.66 01/12/2024 8:15 AM EST documented in this encounter Functional Status Functional Status Response [...] (15 years old or older) No 11/24/19 Cognitive Status Response Date of Assessm ent Because of a physical, menta l, or emotional condition, do you have serious difficulty concentrating, remembering, or making decisions? (5 years old or older) No 11/24/2023 documented as of this encounter Progress Notes * Dasha Morris CRNP - 01/24/2024 11:09 AM EDT Images from the original note were not included. Hematology/Oncology Outpatient Clinic note [address] [address] Name: Juany Resendez Date: 01/24/2024 CHIEF COMPLAINT: Juany Resendez is a 58 year old female patient here today for f/u visit She is a patient of Dr. 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 Chronic osteomyelitis of left great toe, s/p partial great toe amputation-->As per patient therewas a plan for full amputation, but was canceled because of AML. DM PN HTN HLP LBBB H/O CVA 2 years ago with no residual neurological deficit. S/P partial great toe amputation with chronic osteomyelitis left great toe stump Paralytic ptosis left eyelid Multilevel degenerative changes of the lumbar spine as described above, without evidence of a high-grade canal or foraminal stenosis. No suspicious enhancing abnormalities. Treatment rendered: N/A Current treatment: IP/OP Decitabine and Venetoclax with Inpatient ramp-up (AML) (11/25/23- 12/08/23) C1: Decitabine 20 mg/m2 x 5 d (11/25/23- 11/29/23), Venetoclax 100-->200--->400---> 100 x 14d(11/25/23-12/08/23) C2: Decitabine (01/17/2024 - ) Supportive medications: Acyclovir, Posaconazole, Levaquin ppx Allopurinol Chief Complaint Patient presents with Follow Up Oncology History Treatment Summary Treatment Summary 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sion (HCC) 11/24/2023 Initial Diagnosis 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sion (HCC) 11/25/2023 - Chemotherapy IP/OP Decitabine and Venetoclax with Inpatient ramp-up (AML) [id number] 01/03/2024 - Supportive Therapy SCP - PACKED RED BLOOD CELLS AND PLATELETS FOR ADULTS REQUIRING FREQUENT TRANSFUSIONS (3 TIMES A WEEK FOR 3 MONTHS) [id number] Plan Provider: Ortega Verde MD Treatment goal: Supportive Line of treatment: [No plan line of treatment] Acute myeloid leukemia (HCC) 01/07/2024 Initial Diagnosis Acute myeloid leukemia (HCC) 01/07/2024 - Supportive Therapy Blank Treatment Plan (Cycle 1/ Day 1) Plan Provider: CAROL Dorantes Treatment goal: Supportive Line of treatment: [No plan line of treatment] ECOG: Performance Status 2 = 60-70% Bedtime, < 50% daytime Interval history: Patient presented to my office today, unaccompanied, for follow-up of her AML, after getting Decitabine IV daily last week. Overall, she is doing well. She reports that she tolerated treatment well. Denies fever, chills or night sweats. She feels better with Lasix 40 mg p.o. q.day. she denied shortness of breath, or chest pain. History of present illness (at time of Dr. Verde's initial evaluation on 12/31/2023 ): Juany Resendez is a 58 year old female who presented to my office today, unaccompanied,to review symptoms from recent treatment. Patient is a , she lives alone. She lives about 1 hour away from [facility].Currently on disability. Her brother lives 10 minutes away from her. She had history of partial bigtoe amputation, and she started using cane recently. Patient was initially evaluated by Dr. Rice, then by Dr. Senior in [place], then admitted to the hospital, and coming now to [facility] follow-up with me as an outpatient. He had prolonged hospital stay, with the following hospital course 11/24/2023 - 12/28/2023 (34 days) : "ADMISSION HISTORY & PHYSICAL EXAM (focused): Ms. Resendez is a 58 y/o female who lives in [place] by herself. Her PMH includes DM2 on insulin with partial great toe amputation, HTN, dyslipidemia, multinodular goiter s/p total thyroidectomy with resulting postsurgical hypothyroidism, enchondroma femur, paralytic ptosis left eyelid, HTN/CAD s/p IN years ago, s/p ischemic stroke x 2 years ago without residual sx, right vocal cord paralysis with chronic osteomyelitis left great toe stump who was undergoing pre-op evaluation. Was noted to have abnormal CBC on 11/09/2023 with wbc 5900, PLT 141, ANC 420 and ALC 5100 with myelocytes in peripheral blood. Repeat bloodwork 11/15 showed ANC 350 now with absolute blasts 1400 with 40% blasts in peripheral blood. She was referred to Dr. Jaswinder Rice and underwent bone marrow biopsy 11/17/2023 showing AML with p53 mutation, del5q, monosomy 7. She was subsequently referred to Dr. Senior on 11/23/23 who started her on hydrea and allopurinol. She is subsequently admitted for induction therapy with decitabine/venetoclax. -She admits fatigue over last few months but no f/c/s, decreased appetite or unexplained weight loss. -She admits occasional chest pain 3/10, left sided radiating to left elbow occurring almost weekly for last 1 year. She states her rope cutter is aware of these sx and they are not increasing in frequency or intensity. They are sometimes associated with SOB and nausea and occur both when walking and at rest. Relieved with rest and deep breathing. Denies wheeze, cough. Never smoker. -She admits pain, erythema and swelling in left great toe stump currently none. No open skin wounds. -admits occasional headaches over last 2 years, no associated visual changes. -+constipation, not new. Was doubling up on linzess and took lactulose a few weeks ago with no effect. No BM for several days. Admits some abd fullness. HOSPITAL COURSE (focused): Patient was admitted for induction treatment for newly dx tp53+ AML with venetoclax and decitabine.She has a past medical history significant for coronary artery disease and did experience chest pain early in admission for which cardiology was consulted. She did not have ACS while admitted, but car diology recommended continuing aspirin as much as possible to help prevent IN. her blood counts dropped as expected and aspirin was held briefly when platelets were less than 20,000 and then resumed when platelets were above 20,000. Her medications including posaconazole and venetoclax had prior authorization done and delivered to her home while admitted. She developed febrile neutropenia and hypoxic respiratory failure. She was treated with cefepime, blood cultures remained negative. Hypoxic respiratory failure worsened and she required high- flow nasal cannula oxygen. CT chest showed bilateral ground-glass opacities but did not show focal or nodular opacifications. Pulmonology was consulted and consider bronchoscopy, however, her respiratory status improved significantly with a Lasix drip over several days. She had a repeat echocardiogram that did not show any changes in ejection fraction. She had EBONY during this time and Nephrology agreed with diuresis. Her blood counts improved andshe improved clinically. She was stable on room air no longer requiring oxygen. She required adjustment to her diabetic regimen as she is requiring much lower doses of insulin. She continued to do well clinically and desired to go home. We discharged her home with close follow-up at [facility]." HISTORY OF PRESENT ILLNESS: Juany Resendez is a 58 year old female with a history as outlined above. Currently here for f/u visit today. She states that she is doing ok. No side effects from daily Decitabine last week. She denies fever, chills or night sweats. No peripheral neuropathy. Denies chest pain or shortness of breath. Denies abdominal pain, cramping, constipation or diarrhea. No issues with rash. Denies N/V. We talked about her medications. She has not taken diabetic meds yet today. 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, right 10/09/2019 Post op Past Surgical History: Procedure Laterality Date AMPUTATION OF TOE Left 08/2021 tip of great toe COLONOSCOPY W/ BIOPSY (RECTUM) 04/14/2010 bxs COLONOSCOPY, DIAGNOSTIC (RECTUM) 12/16/2016 adenomatous polyps, repeat 5 yrs/[facility] COLONOSCOPY, DIAGNOSTIC (RECTUM) 06/03/2022 diverticulosis, fair prep, repeat 5 yrs / [facility] EGD, FLEXIBLE, DIAGNOSTIC 12/16/2016 normal bx/[facility] EGD, FLEXIBLE, W/BIOPSY 07/30/2010 esophagitis, await BX LARYNGOPLASTY MEDIALIZATION UNILATERAL Right 05/28/2020 LARYNGOPLASTY, MEDIALIZATION UNILATERAL [place] P[place] [facility] [place], VOCAL CORD INJECTION Right 11/20/2019 LARYNGOSCOPY DIRECT INJECTION VOCAL CORD WITH MICROSCOPE performed by Amber Jain MD [place] [facility] [place] ([facility] ONLY) Bilateral 11/24/2017 Reinheimer-bleph/levators-ou OTHER (3 times) 8 inch benign tumor removed from L femur; regrew x 3 OTHER Removal of a benign LN from L axilla REMOVAL OF THYROID GLAND 10/23/2009 total thyroidectomy 10/23/09, [facility], Dr. Vazquez REMOVE CATARACT, INSERT LENS PROSTH Right 07/20/2017 right EXTRACAPSULAR CATARACT REMOVAL WITH INTRAOCULAR LENS performed by Luis Eduardo Cole MD at OR [facility] REMOVE CATARACT, INSERT LENS PROSTH Left 07/06/2017 left EXTRACAPSULAR CATARACT REMOVAL WITH INTRAOCULAR LENS performed by Luis Eduardo Cole MD at [facility] REMOVE GALLBLADDER 2004 appox date Social History Socioeconomic History Marital status: Spouse name: Nasim ("Ruben") Number of children: 2 Years of education: 12 Highest education level: Not on file Occupational History 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 Tobacco Use Smoking status: Never Passive exposure: Current Smokeless tobacco: Never Vaping Use Vaping Use: Never used Substance and Sexual Activity Alcohol use: No Drug use: No Sexual activity: Yes Other Topics Concern Service Not Asked Blood Transfusions No Caffeine Concern Not Asked Occupational Exposure Not Asked Hobby Hazards Not Asked Sleep Concern Not Asked Stress Concern Not Asked Weight Concern Not Asked Special Diet No Back Care Not Asked Exercise Not Asked Bike Helmet Not Asked Seat Belt Yes Self-Exams Not Asked Social History Narrative Not on file Social Determinants of Health Financial Resource Strain: Not on file Food Insecurity: No Food Insecurity (12/30/2023) Hunger Vital Sign Worried About Running Out of Food in the Last Year: Never true Ran Out of Food in the Last Year: Never true Transportation Needs: Not on file Physical Activity: Not on file Stress: Not on file Social Connections: Not on file Intimate Partner Violence: Not on file Housing Stability: Not on file Review of patient's allergies indicates: Allergen Reactions Tape [Adhesive Tape] Glue off the old style medical tape. Current Outpatient Medications Medication Sig Dispense Refill Aspirin 81 MG Tablet Take 1 Tablet by mouth in the morning. DULoxetine HCl 60 MG Oral Capsule Delayed Release Particles (Cymbalta) Take 1 Capsule by mouth in the morning. 180 Capsule 0 OneTouch Delica Lancets 33G Use to test blood sugar three times daily E 11.9 300 Each 5 OneTouch Verio w/Device Kit Use up to 3 times a day E11.9 1 Kit 0 Pen Owings 32G X 4 MM Use as directed. Use to inject insulin 4 times daily 100 Each 5 Triamcinolone Acetonide 0.1 % External Ointment (Aristocort) Apply topically to affected area 2 times a day. Apply to hands and feet 80 g 2 Levothyroxine Sodium 150 MCG Oral Tablet (Synthroid) One tab daily Wednesday through Wednesday - half tabdaily Wednesday and wednesday 90 Tablet 1 Isosorbide Mononitrate ER 30 MG Oral Tablet Extended Release 24 Hour (Imdur) Take 1 Tablet by mouthin the morning. 30 Tablet 1 Magnesium 400 MG Oral Tablet Take 1 Tablet by mouth at bedtime. 90 Tablet 1 Mounjaro 10 MG/0.5ML Subcutaneous Solution Pen-injector (Tirzepatide) Inject 10 mg under the skin once a week. 6 mL 1 Linzess 72 MCG Oral Capsule (linaCLOtide) Take 1 Capsule by mouth daily before breakfast. 90 Capsule 1 Omeprazole 20 MG Oral Capsule Delayed Release (PriLOSEC) Take 1 Capsule by mouth in the morning and1 Capsule before bedtime. 180 Capsule 1 Rosuvastatin Calcium 20 MG Oral Tablet (Crestor) Take 1 Tablet by mouth daily. 90 Tablet 3 OneTouch Verio In Vitro Strip (Glucose Blood) Use up to 3 times a day E11.9 400 Strip 3 Allopurinol 300 MG Oral Tablet (Zyloprim) Take 1 Tablet by mouth in the morning. 30 Tablet 2 Insulin Glargine Solostar 100 UNIT/ML Subcutaneous Solution Pen-injector (Lantus SoloStar) Inject 25 Units under the skin at bedtime. 45 mL 3 Metoprolol Succinate ER 25 MG Oral Tablet Extended Release 24 Hour (toPROL XL) Take 2 Tablets by mouth daily in the morning. 135 Tablet 1 Acyclovir 400 MG Oral Tablet (Zovirax) Take 1 Tablet by mouth in the morning and 1 Tablet before bedtime. 60 Tablet 3 levoFLOXacin 500 MG Oral Tablet (Levaquin) Take 1 Tablet by mouth daily in the morning. 30 Tablet 1 OneTouch Verio In Vitro Strip (Glucose Blood) Use when checking blood glucose levels 4 times per day 200 Strip 5 OneTouch Delica Plus [id number] Use as directed. Use when checking blood glucose levels 4 times per day 200 Each 10 BD Pen Needle Ellie U/F 32G X 4 MM (Insulin Pen Needle) Use with insulin pens to inject insulin under the skin 4 times per day 150 Each 3 NovoLOG FlexPen 100 UNIT/ML Subcutaneous Solution Pen-injector (insulin aspart) Inject under the skin as directed per the following sliding scale: less than 80 mg/dL: no insulin 81-100: 2 units 101-150: 4 units 151-190: 5 units 191 - 230: 6 units 231 - 270: 7 units 271 - 310: 8 units 311 - 350: 9 units 351 - 390: 10 units 21 mL 3 Magic Swizzle (Skiwxsaey-Ilvqipjo-Sazapa) oral solution Swish and spit 15 mL in the morning and 15 mL at noon and 15 mL before bedtime. 300 mL 1 Furosemide 40 MG Oral Tablet (Lasix) Take 1 Tablet by mouth in the morning. 31 Tablet 5 Potassium Chloride ER 20 MEQ Oral Tablet Extended Release Take 1 Tablet by mouth in the morning. 31Tablet 5 Calcium Carb-Cholecalciferol 600-20 MG-MCG Oral Tablet (Caltrate 600+D3) Take 1 Tablet by mouth every morning. 90 Tablet 1 Sennosides-Docusate Sodium 8.6-50 MG Oral Tablet (Senokot S) Take 2 Tablets by mouth in the morningand 2 Tablets before bedtime. 60 Tablet 1 Lactulose 10 GM/15ML Oral Solution (Constulose) Take 15 mL by mouth 2 times a day as needed (constipation). severe constipation 237 mL 1 Bisacodyl 10 MG Rectal Suppository (Dulcolax) Administer 1 Suppository into the rectum in the morning. 12 Suppository 0 No current facility-administered medications for this visit. REVIEW OF SYSTEMS: Review of Systems Constitutional: Negative for appetite change, chills, fatigue and fever. HENT: Negative for mouth sores, sore throat and trouble swallowing. Respiratory: Negative for chest tightness, cough and hemoptysis. Cardiovascular: Negative for chest pain and leg swelling. Gastrointestinal: Negative for abdominal distention, abdominal pain, blood in stool, constipation, diarrhea, nausea and vomiting. Genitourinary: Negative. Musculoskeletal: Negative for back pain and neck pain. Skin: Negative for itching and rash. Neurological: Negative for dizziness, headaches and numbness. Hematological: Negative for adenopathy. Psychiatric/Behavioral: Negative for sleep disturbance. OBJECTIVE: Filed Vitals: 01/24/24 1109 BP: 109/50 Pulse: 75 Temp: 37 C (98.6 F) TempSrc: Tympanic SpO2: 100% Weight: 82.5 kg (181 lb 14.4 oz) Wt Readings from Last 5 Encounters: 01/24/24 82.5 kg (181 lb 14.4 oz) 01/20/24 84.9 kg (187 lb 1.6 oz) 01/19/24 83.8 kg (184 lb 12.8 oz) 01/17/24 85.2 kg (187 lb 13.3 oz) 01/17/24 85.2 kg (187 lb 14.4 oz) PHYSICAL EXAM: ECOG: Performance Status 1 = 80-90% Symptoms but nearly ambulatory General Appearance: Normal - pale tired appearing patient in no acute distress, flat affect HEENT: Normal - No oral or pharyngeal masses, ulceration or thrush noted, no sinus tenderness Lymph Nodes: Normal - No palpable lymph nodes in the neck or supraclavicular areas Lungs/Thorax: Normal - Clear to auscultation Heart: Normal - Regular rate and rhythm, normal S1, S2, no appreciable murmurs, rubs, gallops Pulses/Extremities: Normal - 2+ throughout and symmetrical, no edema Abdomen: Normal - Soft, nontender, bowel sounds present, no appreciable hepatosplenomegaly, no palpable masses Musculoskeletal: Normal - No pain on palpation over bony prominence, no joint or bony deformity Neurologic: Normal - Grossly intact LABS: Results for orders placed or performed in visit on 01/24/24 COMPREHENSIVE METABOLIC PANEL Result Value Ref Range BUN 21 (H) 6 - 20 mg/dL Creatinine 0.8 0.5 - 1.0 mg/dL Estimated Glomerular Filtration Rate 81 >=60 mL/min Sodium 135 135 - 146 mmol/L Potassium 4.5 3.5 - 5.1 mmol/L Chloride 97 (L) 98 - 107 mmol/L CO2 27 22 - 32 mmol/L Anion Gap 11 7 - 15 mmol/L Glucose 493 (H) 70 - 120 mg/dL Albumin 4.0 3.8 - 5.0 g/dL AST 32 10 - 35 U/L Alkaline Phosphatase 155 (H) 35 - 130 U/L Bilirubin, Total 0.5 <=1.2 mg/dL Calcium 8.8 8.4 - 10.2 mg/dL Protein 7.5 6.0 - 8.3 g/dL ALT 59 (H) 10 - 35 U/L LD Result Value Ref Range LD 209 <=250 U/L URIC ACID Result Value Ref Range Uric Acid 2.0 (L) 2.4 - 5.7 mg/dL CBC Result Value Ref Range WBC 0.78 (LL) 4.00 - 10.80 K/uL RBC 2.76 3.85 - 5.15 M/uL HGB 8.2 (L) 12.0 - 15.3 g/dL HCT 23.9 (L) 36.0 - 45.2 % MCV 86.6 81.5 - 97.5 fL MCH 29.7 27.0 - 34.0 pg MCHC 34.3 32.0 - 36.0 g/dL RDW 14.5 11.5 - 15.5 % PLT 116 (L) 140 - 400 K/uL MPV 9.2 6.6 - 11.1 fL nRBCs 0 <=0 /100 WBCs BILIRUBIN, DIRECT Result Value Ref Range Bilirubin, Direct <0.2 0.0 - 0.3 mg/dL DIFFERENTIAL, TECHNOLOGIST REVIEW Result Value Ref Range WBC 0.78 (LL) 4.00 - 10.80 K/uL Neutrophils % 10.0 (L) 40.0 - 75.0 % Lymphocytes % 87.0 (H) 18.0 - 42.0 % Monocytes % 1.0 1.0 - 11.0 % Basophils % 2.0 0.0 - 2.0 % Absolute Neutrophils 0.08 (L) 1.80 - 7.70 K/uL Absolute Lymphocytes 0.68 (L) 1.00 - 4.80 K/uL Absolute Monocytes 0.01 0.00 - 1.10 K/uL Absolute Basophils 0.02 0.00 - 0.20 K/uL *Note: Due to a large number of results and/or encounters for the requested time period, some results have not been displayed. A complete set of results can be found in Results Review. 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 Molecular: TP53 + (tier 2) 91.5%, CBL+ Unfortunately she has complicated past medical history, and significant comorbidities that will be a barrier for intensive chemotherapy for her AML. Also she carries poor prognosis because of TP53 mutation. Received C1 Decitabine and Venetoclax with Inpatient ramp-up from 11/25/23 to 12/08/23 with very complicated hospital course with acute hypoxic respiratory failure, cardiac decompensation requiring HFNC and Lasix drip. Patient did not receive the full 28 d cycle of venetoclax because of her current cardiac condition. Decitabine 20 mg/m2 x 5 d (11/25/23- 11/29/23) Venetoclax 100-->200--->400---> 100 x 14 d(11/25/23-12/08/23) Mucositis grade 1 Volume overload with bilateral lower extremity edema Pancytopenia Plan: Pt is due for treatment in 2 weeks. Follow up appointment MD in one week Also I offered her best supportive care, but patient prefers to proceed with decitabine for now, and based on her tolerance will decide about next step in her management. Patient is at high-risk of cytopenias, infection, worsening of cardiac condition, hospitalization, and deconditioning. Will continue monitor counts every other day, and transfuse for hemoglobin less than 8 (cardiac, and symptomatic patient). BMB in 3 weeks Continue aspirin, with close monitoring of any bleeding. Continue Senokot-S, MiraLax for constipation. She is following with palliative. Continue all supportive medications as recommended Conitnue Lasix to 40 mg p.o. daily, and add extra Lasix 20 mg with every unit of packed RBCs transfusion. Calcium is normal now. PTH is normal. Magic swizzle for mucositis is helping, continue the same for now. In patients with AML with TP53 mutation, a 10-day course of decitabine may be considered (Shine MOHAN,et al. N Engl J Med 2016;375:2490-9586). Response may not be evident before 3-4 cycles of treatmentwith HMAs (ie, azacitidine, decitabine). Continue HMA treatment until progression if patient is tolerating therapy. Similar delays in response are likely with novel agents in a clinical trial, but endpoints will be defined by the protocol. Plan IR biopsy 3 weeks Check-out note: No PRBCs transfusion today IR referral for BMB in 3 weeks Decitabine IV due in 2 weeks CBC/DIff, Type and screen QOD with Hb GOAL of 8. CMP, LDH and uric acid weekly RTC with [facility] Wednesday or Wednesday Call as needed CAROL Patton documented in this encounter Nursing Notes * oRgelio Orozco MED ASSIST - 01/24/2024 11:13 AM EDT Patient identified by name and date of . Do you have any concerns about pain management for today's visit? No Living Will or Advance Directive for Health Care as noted on problem list. My [facility] is a way you can talk to your provider online through e-mail. Would you like to sign up? I can activate it for you? ALREADY ACTIVE BP 109/50 (BP Site: Right Arm, BP Position: Sitting, BP Cuff Size: Regular) | Pulse 75 | Temp 37 C (98.6 F) (Tympanic) | Wt 82.5 kg (181 lb 14.4 oz) | LMP 09/08/2016 | SpO2 100% | BMI 27.66 kg/m | BSA 1.99 m Patient was instructed to not get up on the exam table/exam chair until directed and assisted by their provider; patient is to remain seated in the chair/ wheelchair/ exam table/ exam chair for fall prevention and safety reasons. Patient is aware to have assistance to step down off exam table/exam chair with personnel. Patient voiced full comprehension of instructions. documented in this encounter Plan of Treatment Upcoming Encounters Date Type Department Care Team (Late st Contact Info) Description 01/26/2024 7:00 AM EDT Laboratory Laboratory, [address] [phone] [facility], Lab [address] [place] [address] [place] [address] 01/26/2024 8:00 AM EDT Hem/Onc Treatment Hematology/Oncology Treatment, [address] [place] [address] [facility], Chair1 Hem Onc [address] [place], [place] [address] [address] 01/26/2024 9:00 AM EDT Office Visit Pharmacy, [facility] 132 [facility] [place] [address] [facility] [address] [place] [address] 01/28/2024 7:30 AM EDT Laboratory Laboratory, [address] [place] [phone] [facility], Lab [address] [place], [place] [address] [address] 01/28/2024 8:30 AM EDT Hem/Onc Treatment Hematology/Oncology Treatment, [address] [address] Gl, Chair4 Hem Onc 400 [place] [address] 01/31/2024 9:00 AM EDT Imaging Radiology [facility] 1st [facility], [address] [place] [address] 01/31/2024 9:30 AM EDT Office Visit Hematology/Oncology, [address] [place] [address] Ortega Verde MD [address] [facility] [address] 02/08/2024 12:30 PM EDT Office Visit Podiatry [address] [place] [address] Nayan Franklin, [facility] 1020 [place] [address] 02/09/2024 11:00 AM EDT Office Visit Palliative Medicine, [address] 5th Floor [place] [address] Nati Easley PA-C 400 [place] [address] 02/10/2024 11:40 AM EDT Office Visit [place] [address] [address] [facility], [place] [address] Ivonne French PA-C [address] [facility], [place] [address] 03/14/2024 10:00 AM EDT Office Visit [facility] [address] [facility] [address] Ivonne French PA-C [address] [facility], [place] [address] 04/18/2024 10:00 AM EDT Office Visit [place] [address] [address] [facility], [place] [address] Ivonne French PA-C [address] [facility], [place] [address] 05/10/2024 8:15 AM EDT Office Visit Ophthalmology, [place] [address] [place] [address] Migel Ramires MD [address] [place] [address] 05/16/2024 10:00 AM EDT Office Visit [place] [address] [address] [facility], [place] [phone] Ivonne French PA-C [address] [facility], [place] [phone] Scheduled Procedures Name Priority Associated Diagnoses Date/Ti [...] history exists Depression Screening 12/30/2024 12/30/2023 GFR 01/23/2025 01/24/2024, 01/06, 01/19/2024, Additional history exists PAP SMEAR-EVERY 3 YRS,AGES [...] this encounter Medical Devices Implanted Type Area Care Navigator Device Identifier Shelf Expiration Date Model / Serial / Lot Lens Intraoc 21.0 - [id number] - [id number] Implanted:Qty : 1 on 07/06/2017 by Luis Eduardo Cole MD at OR [facility] Left: Eye [employer]USCH [employer] LOMB 01/05/2022 [id number] / [id number] / Lens Intraoc 21.0 - [id number] - [id number] Implanted:Qty : 1 on 07/20/2017 by KelseyLuis Eduardo pedro MD at OR [facility] Right: Eye BAUSCH & LOMB 01/05/2022 [id number] / [id number] / Syringe Prolaryn Del 1.0cc - [id number] Implanted:Qty : 1 on 11/20/2019 by Amber Jain MD [place] [facility] [place] Mouth [employer] 10/21/2021 [id number] / / [id number] Implant Silastic 7 Silicone Sw - [id number] Implanted:Qty : 1 on 05/28/2020 by Farhat Pate MD [place] [facility] [place]: Throat Access Network [id number] / / documented as of this encounter Visit Diagnoses Diagnosis 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 Question Answer Comments Discussion of Advance Directives occurred with: Patient Does the patient have a Living Will? No Does the patient have Health Care Power of Salon Professional? No Code Status History Code Status Date [...] and were consensually agreed upon. Care Teams Lock Plater Relationship Specialty Start Date End Date Ivonne French PA-C [address] [place] [address] PCP - General Physician Senior Principal Software Engineer 07/24/21 documented as of this encounter
--- OUTSIDE RECORDS SUMMARY | 2024-01-29 21:19 | External Medical Summary ---
Author Name Unknown Address Unknown Organization K1F:LABORATORY [facility] - [address] [place] [address] Laboratory Report Ordering Provider Test Date Status BRADLY BERMAN 01/28/2024 07:46:33 Final Observation Date Value Abnormality Reference (Units ) Status WBC, Total 01/28/2024 07:46:33 1.53 Below low normal 4.00-10.80 (K/uL) Final RBC 01/28/2024 07:46:33 2.60 3.85-5.15 (M/uL) Final Hemoglobin 01/28/2024 07:46:33 7.9 Below low normal 12.0-15.3 (g/dL) Final HCT 01/28/2024 07:46:33 22.5 Below low normal 36.0-45.2 (%) Final MCV 01/28/2024 07:46:33 86.5 81.5-97.5 (fL) Final MCH 01/28/2024 07:46:33 30.4 27.0-34.0 (pg) Final MCHC 01/28/2024 07:46:33 35.1 32.0-36.0 (g/dL) Final RDW 01/28/2024 07:46:33 14.7 11.5-15.5 (%) Final Platelets 01/28/2024 07:46:33 78 Below low normal 140-400 (K/uL) Final MPV 01/28/2024 07:46:33 9.4 6.6-11.1 (fL) Final Nucleated erythrocytes/100 leukocytes [Ratio] in Blood by Automated count 01/28/2024 07:46:33 0 <=0 (/100 WBCs) Final Performing Location LABORATORY [facility] - [address] [place] [address]
--- OUTSIDE RECORDS SUMMARY | 2024-01-29 21:19 | External Medical Summary ---
Author Name Unknown Address Unknown Organization K1F:LABORATORY [facility] - [address] [place] [address] Laboratory Report Ordering Provider Test Date Status BRADLY BERMAN 01/24/2024 10:28:49 Final Observation Date Value Abnormality Reference (Units ) Status SYNC LEUKOCYTES IN BLOOD BY AUTOMATED COUNT 01/24/2024 10:28:49 0.78 Below lower panic limits 4.00-10.80 (K/uL) Final Neutrophils/100 leukocytes in Blood by Manual count 01/24/2024 10:28:49 10.0 Below low normal 40.0-75.0 (%) Final Lymphocytes/100 leukocytes in Blood by Manual count 01/24/2024 10:28:49 87.0 Above high normal 18.0-42.0 (%) Final Monocytes/100 leukocytes in Blood by Manual count 01/24/2024 10:28:49 1.0 1.0-11.0 (%) Final Basophils/100 leukocytes in Blood by Manual count 01/24/2024 10:28:49 2.0 0.0-2.0 (%) Final Neutrophils [#/volume] in Blood by Manual count 01/24/2024 10:28:49 0.08 Below low normal 1.80-7.70 (K/uL) Final Lymphocytes [#/volume] in Blood by Manual count 01/24/2024 10:28:49 0.68 Below low normal 1.00-4.80 (K/uL) Final Monocytes [#/volume] in Blood by Manual count 01/24/2024 10:28:49 0.01 0.00-1.10 (K/uL) Final Basophils [#/volume] in Blood by Manual count 01/24/2024 10:28:49 0.02 0.00-0.20 (K/uL) Final Performing Location LABORATORY [facility] - [address] [facility] [address] [place] [address]
--- OUTSIDE RECORDS SUMMARY | 2024-01-29 21:19 | External Medical Summary ---
Author Name Unknown Address Unknown Organization K1F:LABORATORY [facility] - [address] [place] [address] Laboratory Report Ordering Provider Test Date Status BRADLY BERMAN 01/28/2024 07:46:33 Final Observation Date Value Abnormality Reference (Units ) Status SYNC LEUKOCYTES IN BLOOD BY AUTOMATED COUNT 01/28/2024 07:46:33 1.53 Below low normal 4.00-10.80 (K/uL) Final Neutrophils/100 leukocytes in Blood by Manual count 01/28/2024 07:46:33 3.0 Below low normal 40.0-75.0 (%) Final Lymphocytes/100 leukocytes in Blood by Manual count 01/28/2024 07:46:33 94.0 Above high normal 18.0-42.0 (%) Final Eosinophils/100 leukocytes in Blood by Manual count 01/28/2024 07:46:33 2.0 0.0-6.0 (%) Final Basophils/100 leukocytes in Blood by Manual count 01/28/2024 07:46:33 1.0 0.0-2.0 (%) Final Neutrophils [#/volume] in Blood by Manual count 01/28/2024 07:46:33 0.05 Below low normal 1.80-7.70 (K/uL) Final Lymphocytes [#/volume] in Blood by Manual count 01/28/2024 07:46:33 1.44 1.00-4.80 (K/uL) Final Eosinophils [#/volume] in Blood by Manual count 01/28/2024 07:46:33 0.03 0.00-0.70 (K/uL) Final Basophils [#/volume] in Blood by Manual count 01/28/2024 07:46:33 0.02 0.00-0.20 (K/uL) Final Performing Location LABORATORY [facility] - 400 [facility] [address] [place] [address]
--- OUTSIDE RECORDS SUMMARY | 2024-01-29 21:19 | External Medical Summary | Summary of Care ---
Author Name Unknown Organization [facility] Address [address] [place] [address] Phone [phone] Care Team Providers Care Manager Traffic Name Role Phone Ivonne French PA-C Primary Care Provider [phone] Reason for Visit * Reason Comments Outpatient Testing Encounter Details Date Type Department Care Team (Late st Contact Info) Description 01/26/2024 7:00 AM EDT Laboratory Laboratory, [facility] 400 [place] [phone] [facility], Lab [address] [place], [place] [phone] 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sion (HCC) Allergies Active Allergy Reactions Criticality Noted Date Comments Adhesive Tape 04/21/2016 Glue off the old style medical tape. documented as of this encounter (statuses as of 01/26/2024) Medications Medication Sig Dispensed Refills Start Date End Date Status Aspirin 81 MG Tablet Take 1 Tablet by mouth in the morning. 0 Active DULoxetine HCl 60 MG Oral Capsule Delayed Release Particles (Cymbalta) Take 1 Capsule by mouth in the morning. 180 Capsule 0 11/24/2022 Active OneTouch Delica Lancets 33G Use to test blood sugar three times daily E 11.9 300 Each 05/25/2023 Active OneTouch Verio w/Device Kit Use up to 3 times a day E11.9 1 Kit 0 05/25/2023 Active Pen Lester 32G X 4 MM Use as directed. Use to inject insulin 4 times daily 100 Each 05/25/2023 Active Triamcinolone Acetonide 0.1 % External [...] Hour (toPROL XL)Indications:Cor onary artery disease involving [place] coronary artery of [place] heart without angina pectoris Take 2 Tablets [...] levels 4 times per day 200 Strip 12/28/2023 Active OneTouch Delica Plus [id number] Use as directed. Use when checking blood [...] 351 - 390: 10 units 21 mL 12/28/2023 Active Magic Swizzle (Lidocaine-Benadry l-Maalox) oral [...] as of this encounter (statuses as of 01/26/2024) Active Problems Problem Noted Date Diagnosed Date [...] as of this encounter (statuses as of 01/26/2024) Resolved Problems Problem Noted Date Diagnosed Date [...] as of this encounter (statuses as of 01/26/2024) Immunizations Name Administration Dates Next Due COVID-19 [...] No 11/24/2023 documented as of this encounter Plan of Treatment Upcoming Encounters Date Type Department Care Team (Late st Contact Info) Description 01/28/2024 7:30 AM EDT Laboratory Laboratory, [address] [phone] [facility], Lab [address] [place] [address] 01/28/2024 8:30 AM EDT Hem/Onc Treatment Hematology/Oncology Treatment, [address] [address] [facility], Chair Hem Onc [address] [place] [address] 01/31/2024 9:00 AM EDT Imaging Radiology [address] [address] 01/31/2024 9:30 AM EDT Office Visit Hematology/Oncology, [address] [address] Ortega Verde MD [address] [place], [place] [address] 02/08/2024 12:30 PM EDT Office Visit Podiatry [address] [place] [address] Nayan Franklin, EVANGELINA 1020 [place] [address] 02/09/2024 11:00 AM EDT Office Visit Palliative Medicine, [facility] 400 [facility] 5th Floor [place] [address] Nati Easley PA-C 400 [facility] [place] [address] 02/10/2024 11:40 AM EDT Office Visit [facility], [place] [address] [facility], [place] [address] Ivonne French PA-C [address] [facility], [place] [address] 02/11/2024 1:00 PM EDT Office Visit Pharmacy, [facility] 132 [facility] [place] [address] [facility] 132 [facility] [place] [address] 03/14/2024 10:00 AM EDT Office Visit [facility], [place] [address] [facility], [place] [address] Ivonne French PA-C [address] [facility], [place] [address] 04/18/2024 10:00 AM EDT Office Visit [facility], [place] [address] [facility] [address] Ivonne French PA-C [address] [facility], [place] [address] 05/10/2024 8:15 AM EDT Office Visit Ophthalmology, [place] 21 [facility] [address] Migel Ramires MD 21 [facility] [address] 05/16/2024 10:00 AM EDT Office Visit [facility] [address] [place] [phone] Ivonne French PA-C [address] [place] [address] Pending Results Name Type Priority Associated Diagnoses Date /Time CBC WITH WBC DIFFERENTIAL Lab STAT 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sion (HCC) 01/26/2024 8:01 AM EDT COMPREHENSIVE METABOLIC PANEL Lab STAT 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sion (HCC) 01/26/2024 8:01 AM EDT TYPE AND SCREEN Lab STAT 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sion (HCC) 01/26/2024 8:01 AM EDT CBC Lab STAT 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sion (HCC) 01/26/2024 8:01 AM EDT DIFFERENTIAL, AUTOMATED Lab STAT 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sion (HCC) 01/26/2024 8:01 AM EDT Scheduled Procedures Name Priority Associated Diagnoses Date/Ti [...] this encounter Medical Devices Implanted Type Area Home Hospice Aide Device Identifier Shelf Expiration Date Model / Serial / Lot Lens Intraoc 21.0 - [id number] - [id number] Implanted:Qty : 1 on 07/06/2017 by Luis Eduardo Cole MD at OR [facility] Left: Eye [employer]CH [employer] LOMB 01/05/2022 [id number] / [id number] / Lens Intraoc 21.0 - [id number] - [id number] Implanted:Qty : 1 on 07/20/2017 by Luis Eduardo Cloe MD at OR [facility] Right: Eye BAUSCH [employer] LOMB 01/05/2022 [id number] / [id number] / Syringe Prolaryn Del 1.0cc - [id number] Implanted:Qty : 1 on 11/20/2019 by Amber Jain MD at OR [facility] Right: Mouth [employer] 10/21/2021 [id number] / / [id number] Implant Silastic 7 Silicone Sw - [id number] Implanted:Qty : 1 on 05/28/2020 by Farhat Pate MD at OR [facility] Right: Throat [employer] [id number] / / documented as of this encounter Visit Diagnoses Diagnosis 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sion (HCC) documented in this encounter Advance Directives Latest Code Status on File Code Status Date Activated Date Inactivated Comments No Code 11/24/2023 7:24 PM 12/28/2023 9:25 PM This order reflects the patients wishes and were consensually agreed upon. Question Answer Comments Discussion of Advance Directives occurred with: Patient Does the patient have a Living Will? No Does the patient have Health Care Power of Intake Man? No Code Status History Code Status Date [...] and were consensually agreed upon. Care Teams Manager Traffic Relationship Specialty Start Date End Date Ivonne French PA-C [address] [facility] [place] [address] PCP - General Physician Neurobiologist 07/24/21 documented as of this encounter
--- OUTSIDE RECORDS SUMMARY | 2024-01-29 21:19 | External Medical Summary ---
Author Name Unknown Address Unknown Organization K1F:LABORATORY [facility] - [address] [place] [address] Laboratory Report Ordering Provider Test Date Status BRADLY BERMAN 01/26/2024 08:01:21 Final Observation Date Value Abnormality Reference (Units ) Status SYNC LEUKOCYTES IN BLOOD BY AUTOMATED COUNT 01/26/2024 08:01:21 0.80 Below lower panic limits 4.00-10.80 (K/uL) Final Neutrophils/100 leukocytes in Blood by Manual count 01/26/2024 08:01:21 7.0 Below low normal 40.0-75.0 (%) Final Lymphocytes/100 leukocytes in Blood by Manual count 01/26/2024 08:01:21 93.0 Above high normal 18.0-42.0 (%) Final Neutrophils [#/volume] in Blood by Manual count 01/26/2024 08:01:21 0.06 Below low normal 1.80-7.70 (K/uL) Final Lymphocytes [#/volume] in Blood by Manual count 01/26/2024 08:01:21 0.74 Below low normal 1.00-4.80 (K/uL) Final Performing Location LABORATORY [facility] - [address] [facility] [address] [place] [address]
--- OUTSIDE RECORDS SUMMARY | 2024-01-29 21:19 | External Medical Summary ---
Author Name Unknown Address Unknown Organization K1F:LABORATORY [facility] - [address] [place] [address] Laboratory Report Ordering Provider Test Date Status RUSH BELL 01/24/2024 10:28:49 Final Observation Date Value Abnormality Reference (Units ) Status Bilirubin, Direct 01/24/2024 10:28:49 <0.2 0. 0-0.3 (mg/dL) Final Performing Location LABORATORY [facility] - [address] [place] [address]
--- OUTSIDE RECORDS SUMMARY | 2024-01-29 21:19 | External Medical Summary | Summary of Care ---
Author Name Unknown Organization [facility] Address [address] [facility] [address] Phone [phone] Care Team Providers Care Last Putter Away Name Role Phone Ivonne French PA-C Primary Care Provider [phone] Reason for Visit * Reason Comments Nurse Documentation Packed Red Blood Opal ls Not Indicated as Hgb 8.2 Encounter Details Date Type Department Care Team (Late st Contact Info) Description 01/26/2024 8:00 AM EDT Hem/Onc Treatment Hematology/Oncology Treatment, [facility] [address] [place] [address] [facility], Chair1 Hem Onc 400 [place] [address] Allergies Active Allergy Reactions Criticality Noted Date [...] E11.9 1 Kit 0 05/25/2023 Active Pen [place] 32G X 4 MM Use as directed. [...] Hour (toPROL XL)Indications:Cor onary artery disease involving [place] coronary artery of [place] heart without angina pectoris Take 2 Tablets [...] 200 Strip 12/28/2023 Active OneTouch Delica Plus [id number] Use as directed. Use when checking blood [...] as of this encounter Nursing Notes * Francesca Beckham RN - 01/26/2024 8:26 AM EDT Packed Red Blood Cells Not Indicated as Hgb 8.2. Pt aware and instructed to keep appointments on 01/28/24. documented in this encounter Plan of Treatment Upcoming Encounters Date Type Department Care Team (Late st Contact Info) Description 01/28/2024 7:30 AM EDT Laboratory Laboratory, [address] [place] [address] [facility], Lab [address] [place], [place] [address] [address] 01/28/2024 8:30 AM EDT Hem/Onc Treatment Hematology/Oncology Treatment, [address] [place] [address] [facility], Chair4 Hem Onc [address] [place], [place] [address] [address] 01/31/2024 9:00 AM EDT Imaging Radiology [facility] 1st [facility], [address] [place] [address] 01/31/2024 9:30 AM EDT Office Visit Hematology/Oncology, [address] [place] [address] Ortega Verde MD [address] [place] [address] 02/08/2024 12:30 PM EDT Office Visit Podiatry [address] [place] [phone] Nayan Franklin, [facility] 10[address] [place] [address] 02/09/2024 11:00 AM EDT Office Visit Palliative Medicine, [facility] 400 [facility] 5th [place] [address] Nati Easley PA-C 400 [place] [address] 02/10/2024 11:40 AM EDT Office Visit [facility], [address] [place] [phone] Ivonne French PA-C 8[address] [place] [address] 02/11/2024 1:00 PM EDT Office Visit Pharmacy, [facility] 132 [facility] [place] [address] [facility] 132 [facility] [place] [address] 03/14/2024 10:00 AM EDT Office Visit [facility], [address] [address] Ivonne French PA-C [address] [facility] [place] [address] 04/18/2024 10:00 AM EDT Office Visit [facility], [address] [address] Ivonne French PA-C [address] [place] [address] 05/10/2024 8:15 AM EDT Office Visit Ophthalmology, [place] 21 [place] [address] Migel Ramires MD 21 [facility] [address] [place] [address] 05/16/2024 10:00 AM EDT Office Visit [facility], [place] [address] [facility] [phone] Ivonne French PA-C [address] [place] [address] Scheduled Procedures Name Priority Associated Diagnoses Date/Ti [...] history exists Depression Screening 12/30/2024 12/30/2023 GFR 01/25/2025 01/26/2024, 01/06, 01/21/2024, Additional history exists PAP SMEAR-EVERY 3 YRS,AGES [...] this encounter Medical Devices Implanted Type Area Senior Manager [employer] Device Identifier Shelf Expiration Date Model / Serial / Lot Lens Intraoc 21.0 - [id number] - [id number] Implanted:Qty : 1 on 07/06/2017 by Luis Eduardo Cole MD at OR [facility] Left: Eye [employer] 01/05/2022 [id number] / [id number] / Lens Intraoc 21.0 - [id number] - [id number] Implanted:Qty : 1 on 07/20/2017 by Luis Eduardo Cole MD at OR [facility] Right: Eye [employer] 01/05/2022 [id number] / [id number] / Syringe Prolaryn Del 1.0cc - [id number] Implanted:Qty : 1 on 11/20/2019 by Amber Jain MD [place] [facility] [place] Mouth [employer] 10/21/2021 [id number] / / [id number] Implant Silastic 7 Silicone Sw - [id number] Implanted:Qty : 1 on 05/28/2020 by Farhat Pate MD [place] [facility] [place] Throat [employer] [id number] / / documented as of this [...] the patient have Health Care Power of Management Consultant? No Code Status History Code Status Date [...] and were consensually agreed upon. Care Teams Last Putter Away Relationship Specialty Start Date End Date Ivonne French PA-C [address] [facility] [place] [address] PCP - General Physician Doctor Of Pharmacy 07/24/21 documented as of this encounter
--- OUTSIDE RECORDS SUMMARY | 2024-01-29 21:19 | External Medical Summary | Summary of Care ---
Author Name Unknown Organization [facility] Address [address] [place] [address] Phone [phone] Care Team Providers Care Dairy Frozen Manager Name Role Phone Ivonne French PA-C Primary Care Provider +1 [phone] Reason for Visit * Reason Comments Outpatient Testing Encounter Details Date Type Department Care Team (Late st Contact Info) Description 01/24/2024 9:00 AM EDT Laboratory Laboratory, [facility] [address] [place] [phone] [facility], Lab [address] [place], [place] [phone] Abnormal LFTs (liver function tests); 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sion [...] E11.9 1 Kit 0 05/25/2023 Active Pen [place] 32G X 4 MM Use as directed. 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 Use when checking blood [...] Team (Late st Contact Info) Description 01/26/2024 9:00 AM EDT Office Visit Pharmacy, [facility] [address] [facility] [place] [address] [facility] [address] [place] [address] 01/31/2024 9:00 AM EDT Imaging Radiology [facility]st [facility] [address] [place] [address] 02/08/2024 12:30 PM EDT Office Visit Podiatry [address] [place] [phone] Nayan Franklin, [facility] [address] [place] [address] 02/09/2024 11:00 AM EDT Office Visit Palliative Medicine, [facility] [address] 400 [facility] 5th Floor [facility] [place] [address] Nati Easley PA-C [address] [place] [address] 02/10/2024 11:40 AM EDT Office Visit Family [facility], [place] [address] [facility] [place] [phone] Ivonne French PA-C [address] [place] [address] 03/14/2024 10:00 AM EDT Office Visit [facility] [place] [address] [place] [facility] [address] Ivonne French PA-C [address] [place] [facility] [place] [address] 04/18/2024 10:00 AM EDT Office Visit [facility] [place] [address] [place] [facility] [address] Ivonne French PA-C [address] [facility], [place] [phone] 05/10/2024 8:15 AM EDT Office Visit Ophthalmology, [place] [address] [place] [address] Migel Ramires MD [address] [place] [address] 05/16/2024 10:00 AM EDT Office Visit [facility] [place] [address] [place] [facility] [place] [address] Ivonne French PA-C [address] [facility], [place] [phone] Pending Results Name Type Priority Associated Diagnoses Date /Time CBC WITH WBC DIFFERENTIAL Lab STAT 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sion (HCC) 01/24/2024 10:28 AM EDT COMPREHENSIVE METABOLIC PANEL Lab STAT 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sion (HCC) 01/24/2024 10:28 AM EDT LD Lab STAT 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sion (HCC) 01/24/2024 10:28 AM EDT URIC ACID Lab STAT 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sion (HCC) 01/24/2024 10:28 AM EDT DIFFERENTIAL, AUTOMATED Lab STAT 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sion (HCC) 01/24/2024 10:28 AM EDT BILIRUBIN, DIRECT Lab Routine Abnormal LFTs (liver function tests) 01/24/2024 10:28 AM EDT Scheduled Procedures Name Priority Associated [...] history exists Depression Screening 12/30/2024 12/30/2023 GFR 01/20/2025 01/21/2024, 01/06, 01/17/2024, Additional history exists PAP SMEAR-EVERY 3 YRS,AGES [...] this encounter Medical Devices Implanted Type Area Printer Slotter Feeder Device Identifier Shelf Expiration Date Model / Serial / Lot Lens Intraoc 21.0 - [id number] - [id number] Implanted:Qty : 1 on 07/06/2017 by Luis Eduardo Cole MD at OR [facility] Left: Eye [employer]USCH [employer] LOMB 01/05/2022 [id number] / [id number] / Lens Intraoc 21.0 - [id number] - [id number] Implanted:Qty : 1 on 07/20/2017 by Luis Eduardo Cole MD at OR [facility] Right: Eye BAUSCH & LOMB 01/05/2022 [id number] / [id number] / Syringe Prolaryn Del 1.0cc - [id number] Implanted:Qty : 1 on 11/20/2019 by Amber Jain MD at OR [facility] Right: Mouth [employer] 10/21/2021 [id number] / / [id number] Implant Silastic 7 Silicone Sw - [id number] Implanted:Qty : 1 on 05/28/2020 by Farhat Pate MD at OR [facility] Right: Throat [employer] [id number] / / documented as of this encounter Procedures Procedure Name Priority Date/Time Associated Diagnosis Comments CBC STAT 01/24/2024 10:28 AM EDT 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sion (HCC) documented in this encounter Results * (ABNORMAL) CBC (01/24/2024 10:28 AM EDT) WBC 0.78(LL) 4.00 - 10.80 K/uL 01/24/2024 10:42 AM EDT LAB[facility]ATORY [facility] RBC 2.76 3.85 - 5.15 M/uL 01/24/2024 10:42 AM EDT [facility] HGB 8.2(L) 12.0 - 15.3 g/dL 01/24/2024 10:42 AM EDT [facility] HCT 23.9(L) 36.0 - 45.2 % 01/24/2024 10:42 AM EDT [facility] MCV 86.6 81.5 - 97.5 fL 01/24/2024 10:42 AM EDT [facility] MCH 29.7 27.0 - 34.0 pg 01/24/2024 10:42 AM EDT [facility] MCHC 34.3 32.0 - 36.0 g/dL 01/24/2024 10:42 AM EDT [facility] RDW 14.5 11.5 - 15.5 % 01/24/2024 10:42 AM EDT [facility] PLT 116(L) 140 - 400 K/uL 01/24/2024 10:42 AM EDT [facility] MPV 9.2 6.6 - 11.1 fL 01/24/2024 10:42 AM EDT [facility] nRBCs 0 <=0 /100 WBCs 01/24/2024 10:42 AM EDT [facility] Blood Venous blood specimen / Unknown Venipuncture / Unknown 01/24/2024 10:28 AM EDT 01/24/2024 10:28 AM EDT Ortega Verde MD LAB BLOOD O RDERABLES Performing Organization Address City/State/[facility] Co de Phone Number [facility] [address] [place] [address] documented in this encounter Visit Diagnoses Diagnosis Abnormal LFTs (liver function tests) Other abnormal blood chemistry 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sion [...] the patient have Health Care Power of Machine Burrer? No Code Status History Code Status Date [...] and were consensually agreed upon. Care Teams Dairy Frozen Manager Relationship Specialty Start Date End Date Ivonne French PA-C [address] [place] [address] PCP - General Physician Envelope Patternmaker 07/24/21 documented as of this encounter
--- OUTSIDE RECORDS SUMMARY | 2024-01-29 21:19 | External Medical Summary ---
Author Name Unknown Address Unknown Organization K1F:LABORATORY [facility] - [address] [place] [address] Ave. [place] [address] Laboratory Report Ordering Provider Test Date Status BRADLY BERMAN 01/26/2024 08:01:21 Final Observation Date Value Abnormality Reference (Units ) Status WBC, Total 01/26/2024 08:01:21 0.80 Below lower panic limits 4.00-10.80 (K/uL) Final RBC 01/26/2024 08:01:21 2.74 3.85-5.15 (M/uL) Final Hemoglobin 01/26/2024 08:01:21 8.2 Below low normal 12.0-15.3 (g/dL) Final HCT 01/26/2024 08:01:21 23.6 Below low normal 36.0-45.2 (%) Final MCV 01/26/2024 08:01:21 86.1 81.5-97.5 (fL) Final MCH 01/26/2024 08:01:21 29.9 27.0-34.0 (pg) Final MCHC 01/26/2024 08:01:21 34.7 32.0-36.0 (g/dL) Final RDW 01/26/2024 08:01:21 14.6 11.5-15.5 (%) Final Platelets 01/26/2024 08:01:21 102 Below low normal 140-400 (K/uL) Final MPV 01/26/2024 08:01:21 9.3 6.6-11.1 (fL) Final Nucleated erythrocytes/100 leukocytes [Ratio] in Blood by Automated count 01/26/2024 08:01:21 0 <=0 (/100 WBCs) Final Performing Location LABORATORY [facility] - [address] [place] [address]
--- OUTSIDE RECORDS SUMMARY | 2024-01-29 21:19 | External Medical Summary ---
Author Name Unknown Address Unknown Organization K1F:LABORATORY [facility] - [address] [place] [address] Laboratory Report Ordering Provider Test Date Status BRADLY BERMAN 01/24/2024 10:28:49 Final Observation Date Value Abnormality Reference (Units ) Status LDH 01/24/2024 10:28:49 209 <=250 (U/L ) Final Performing Location LABORATORY [facility] - [address] [place] [address]
--- OUTSIDE RECORDS SUMMARY | 2024-01-29 21:19 | External Medical Summary | Summary of Care ---
Author Name Unknown Organization [facility] Address [address] [facility] [address] Phone [phone] Care Team Providers Care Auto Wheel Alignment Specialist Name Role Phone Ivonne French PA-C Primary Care Provider [phone] [phone] Reason for Visit * Reason Onset Date Comments Test Results 01/25/2024 Encounter Details Date Type Department Care Team (Late st Contact Info) Description 01/25/2024 Telephone Cardiology, [facility] [address] [place] [phone] Christian Cardenas PA-C [address] [place] [address] Test Results Allergies Active Allergy Reactions Criticality Noted Date Comments Adhesive Tape 04/21/2016 Glue off the old style medical tape. documented as of this encounter (statuses as of 01/25/2024) Medications Medication Sig Dispensed Refills Start Date [...] E11.9 1 Kit 0 05/25/2023 Active Pen [place] 32G X 4 MM Use as directed. [...] Hour (toPROL XL)Indications:Cor onary artery disease involving rosebud coronary artery of rosebud heart without angina pectoris Take 2 Tablets [...] 200 Strip 12/28/2023 Active OneTouch Delica Plus [id number] Use as directed. Use when checking blood [...] as of this encounter (statuses as of 01/25/2024) Active Problems Problem Noted Date Diagnosed Date [...] as of this encounter (statuses as of 01/25/2024) Resolved Problems Problem Noted Date Diagnosed Date [...] as of this encounter (statuses as of 01/25/2024) Immunizations Name Administration Dates Next Due COVID-19 [...] No 11/24/2023 documented as of this encounter Miscellaneous Notes * Telephone Encounter - Debbie Trimble CMA - 01/25/2024 10:02 AM EDT My g sent. * Telephone Encounter - Debbie Trimble CMA - 01/25/2024 10:01 AM EDT ----- Message from Christian Cardenas PA-C sent at 01/24/2024 7:32 PM EDT ----- Glucose significantly elevated - As per ordering provider/PCP/MTM Clinic Metabolic panel otherwise OK/stable. documented in this encounter Plan of Treatment Upcoming Encounters Date Type Department Care Team (Late st Contact Info) Description 01/26/2024 7:00 AM EDT Laboratory Laboratory, [address] [place] [address] [facility], Lab [address] [place], [place] [address] [address] 01/26/2024 8:00 AM EDT Hem/Onc Treatment Hematology/Oncology Treatment, [address] [place] [address] [facility], Chair1 Hem Onc [address] [place], [place] [address] [address] 01/28/2024 7:30 AM EDT Laboratory Laboratory, [address] [address] [facility], Lab [address] [place] [address] 01/28/2024 8:30 AM EDT Hem/Onc Treatment Hematology/Oncology Treatment, [address] [place] [address] [facility], Chair4 Hem Onc [address] [place], [place] [address] [address] 01/31/2024 9:00 AM EDT Imaging Radiology [facility] 1st [facility], [address] [place] [address] 01/31/2024 9:30 AM EDT Office Visit Hematology/Oncology, [address] [address] Ortega Verde MD [address] [place], [place] [phone] 02/08/2024 12:30 PM EDT Office Visit Podiatry [address] [place] [address] Nayan Franklin, [facility] [place] [address] 02/09/2024 11:00 AM EDT Office Visit Palliative Medicine, [address] 5th Floor [place] [address] Nati Easley PA-C [address] [place] [address] 02/10/2024 11:40 AM EDT Office Visit [address] [address] Ivonne French PA-C [address] [facility] [place] [address] 02/11/2024 1:00 PM EDT Office Visit Pharmacy, [facility] 132 [facility] [place] [address] [facility] 132 [facility] [place] [address] 03/14/2024 10:00 AM EDT Office Visit [facility] [place] [address] [facility] [place] [address] Ivonne French PA-C [address] [facility] [place] [address] 04/18/2024 10:00 AM EDT Office Visit [facility], [place] [address] [facility] [place] [phone] Ivonne French PA-C [address] [facility] [address] 05/10/2024 8:15 AM EDT [facility] [address] [place] [address] Migel Ramires MD [address] [place] [address] 05/16/2024 10:00 AM EDT Office Visit [facility], [place] [address] [facility] [place] [address] Ivonne French PA-C [address] [facility] [place] [address] Scheduled Procedures Name Priority Associated Diagnoses Date/Ti [...] this encounter Medical Devices Implanted Type Area Philosophy Faculty Device Identifier Shelf Expiration Date Model / Serial / Lot Lens Intraoc 21.0 - [id number] - [id number] Implanted:Qty : 1 on 07/06/2017 by Luis dEuardo Cole MD at OR [facility] Left: Eye [employer]OM[employer] 01/05/2022 [id number] / [id number] / Lens Intraoc 21.0 - [id number] - [id number] Implanted:Qty : 1 on 07/20/2017 by Luis Eduardo Cole MD at OR [facility] Right: Eye [employer] LOMB 01/05/2022 [id number] / [id number] / Syringe Prolaryn Del 1.0cc - [id number] Implanted:Qty : 1 on 11/20/2019 by Amber Jain MD at OR [facility] Right: Mouth [employer] 10/21/2021 [id number] / / [id number] Implant Silastic 7 Silicone Sw - [id number] Implanted:Qty : 1 on 05/28/2020 by Farhat Pate MD at OR [facility] Right: Throat [employer] [id number] / / documented as of this [...] the patient have Health Care Power of Gasoline Truck Crane Operator? No Code Status History Code Status Date [...] and were consensually agreed upon. Care Teams Auto Wheel Alignment Specialist Relationship Specialty Start Date End Date Ivonne French PA-C [address] [place] [address] PCP - General Physician Nursing Department Chairperson 07/24/21 documented as of this encounter
--- OUTSIDE RECORDS SUMMARY | 2024-01-29 21:19 | External Medical Summary | Summary of Care ---
Author Name Unknown Organization [facility] Address [address] [facility] [address] Phone [phone] Care Team Providers Care Manager Copy Name Role Phone Ivonne French PA-C Primary Care Provider [phone] [phone] Reason for Visit * Reason Comments Nurse Documentation No Blood Products Ne eded Today Hgb 8.2 and Platelets 116,000 Encounter Details Date Type Department Care Team (Late st Contact Info) Description 01/24/2024 10:30 AM EDT Hem/Onc Treatment Hematology/Oncology Treatment, [facility] [address] [place] [address] [facility], Chair1 Hem Onc [address] [place], [place] [phone] Arrived Allergies Active Allergy Reactions Criticality Noted Date [...] E11.9 1 Kit 0 05/25/2023 Active Pen [place] 32G X 4 MM Use as directed. [...] Hour (toPROL XL)Indications:Cor onary artery disease involving douglas coronary artery of douglas heart without angina pectoris Take 2 Tablets by mouth daily in the morning. 135 Tablet 1 12/28/2023 Active Acyclovir 400 MG Oral Tablet (Zovirax) Take 1 Tablet by mouth in the morning and 1 Tablet before bedtime. 60 Tablet 3 12/28/2023 Active levoFLOXacin 500 MG Oral Tablet (Levaquin) Take 1 Tablet by mouth daily in the morning. 30 Tablet 1 12/29/2023 Active Lending WorksTouch Verio In Vitro Strip (Glucose Blood) Use when checking blood glucose levels 4 times per day 200 Strip 5 12/28/2023 Active Lending WorksTouch Delica Plus [id number] Use as directed. Use when checking blood [...] of this encounter Nursing Notes * Francesca Beckham, RN - 01/24/2024 10:58 AM EDT No Blood Products Needed Today Hgb 8.2 and Platelets 116,000 documented in this encounter Plan of Treatment Upcoming Encounters Date Type Department Care Team (Late st Contact Info) Description 01/26/2024 9:00 AM EDT Office Visit Pharmacy, [facility] 132 [facility] [place] [address] [facility] 132 [facility] [place] [address] 01/31/2024 9:00 AM EDT Imaging Radiology [facility] 1st [facility] 132 [facility] [place] [address] 02/08/2024 12:30 PM EDT Office Visit Podiatry [address] [place] [phone] Nayan Franklin, [facility] [address] [place] [address] 02/09/2024 11:00 AM EDT Office Visit Palliative Medicine, [address] 5th Floor [place] [address] Nati Easley PA-C [address] [place], [place] [phone] 02/10/2024 11:40 AM EDT Office Visit [facility] [place] [address] [place] [facility] [address] Ivonne French PA-C [address] [place] [facility] [place] [address] 03/14/2024 10:00 AM EDT Office Visit [facility], [place] [address] [facility] [address] Ivonne French PA-C [address] [place] [facility] [place] [address] 04/18/2024 10:00 AM EDT Office Visit [place] [address] [address] [facility], [place] [phone] [phone] Ivonne French PA-C [address] [facility], [place] [address] 05/10/2024 8:15 AM EDT Office Visit Ophthalmology, [place] [address] [place] [address] Migel Ramires MD [address] [place] [address] 05/16/2024 10:00 AM EDT Office Visit [place] [address] [address] [facility], [place] [phone] [phone] Ivonne French PA-C [address] [facility], [place] [phone] Scheduled Procedures Name Priority Associated Diagnoses Date/Ti [...] this encounter Medical Devices Implanted Type Area Medical Planner Device Identifier Shelf Expiration Date Model / Serial / Lot Lens Intraoc 21.0 - [id number] - [id number] Implanted:Qty : 1 on 07/06/2017 by Luis Eduardo Cole MD at OR [facility] Left: Eye [employer] 01/05/2022 [id number] / [id number] / Lens Intraoc 21.0 - [id number] - [id number] Implanted:Qty : 1 on 07/20/2017 by Luis Eduardo Cole MD at OR [facility] Right: Eye [employer] 01/05/2022 [id number] / [id number] / Syringe Prolaryn Del 1.0cc - [id number] Implanted:Qty : 1 on 11/20/2019 by Amber Jain MD [place] [facility] Right: Mouth [employer] 10/21/2021 [id number] / / [id number] Implant Silastic 7 Silicone Sw - [id number] Implanted:Qty : 1 on 05/28/2020 by Farhat Pate MD [place] [facility] Right: Throat [employer] [id number] / / documented as of this [...] the patient have Health Care Power of Homebound Teacher? No Code Status History Code Status Date [...] were consensually agreed upon. Care Teams Manager Copy Relationship Specialty Start Date End Date Ivonne French PA-C [address] [place] [facility] [place] [address] PCP - General Physician Ctrs 07/24/21 documented as of this encounter
--- OUTSIDE RECORDS SUMMARY | 2024-01-29 21:19 | External Medical Summary ---
Author Name Unknown Address Unknown Organization K1F:LABORATORY [facility] - [address] [place] [address] Laboratory Report Ordering Provider Test Date Status ANTONELLABRADLY Feliz 01/24/2024 10:28:49 Final Observation Date Value Abnormality Reference (Units ) Status Uric Acid 01/24/2024 10:28:49 2.0 Below low normal 2.4 -5.7 (mg/dL) Final Performing Location LABORATORY [facility] - [address] [place] [address]
--- OUTSIDE RECORDS SUMMARY | 2024-01-29 21:19 | External Medical Summary ---
Author Name Unknown Address Unknown Organization K1F:LABORATORY [facility] - [address] [place] [address] Laboratory Report Ordering Provider Test Date Status BRADLY BERMAN 01/24/2024 10:28:49 Final Observation Date Value Abnormality Reference (Units ) Status WBC, Total 01/24/2024 10:28:49 0.78 Below lower panic limits 4.00-10.80 (K/uL) Final RBC 01/24/2024 10:28:49 2.76 3.85-5.15 (M/uL) Final Hemoglobin 01/24/2024 10:28:49 8.2 Below low normal 12.0-15.3 (g/dL) Final HCT 01/24/2024 10:28:49 23.9 Below low normal 36.0-45.2 (%) Final MCV 01/24/2024 10:28:49 86.6 81.5-97.5 (fL) Final MCH 01/24/2024 10:28:49 29.7 27.0-34.0 (pg) Final MCHC 01/24/2024 10:28:49 34.3 32.0-36.0 (g/dL) Final RDW 01/24/2024 10:28:49 14.5 11.5-15.5 (%) Final Platelets 01/24/2024 10:28:49 116 Below low normal 140-400 (K/uL) Final MPV 01/24/2024 10:28:49 9.2 6.6-11.1 (fL) Final Nucleated erythrocytes/100 leukocytes [Ratio] in Blood by Automated count 01/24/2024 10:28:49 0 <=0 (/100 WBCs) Final Performing Location LABORATORY [facility] - [address] [place] [address]
--- OUTSIDE RECORDS SUMMARY | 2024-01-29 21:19 | External Medical Summary ---
Author Name Unknown Address Unknown Organization K1F:LABORATORY [facility] - [address] [place] [address] Laboratory Report Ordering Provider Test Date Status DIEGO BERMANAPPLE 01/26/2024 08:01:21 Final Observation Date Value Abnormality Reference (Units ) Status ABO 01/26/2024 08:01:21 O Final RH 01/26/2024 08:01:21 Positive Final RED BLOOD CELL ANTIBODY SCREEN 01/26/2024 08:01:21 Negative Final SPECIMEN EXPIRATION DATE 01/26/2024 08:01:21 01/29/2024 23:59 Final Performing Location LABORATORY [facility] - [address] [place] [address]
--- OUTSIDE RECORDS SUMMARY | 2024-01-29 21:19 | External Medical Summary ---
Author Name Unknown Address Unknown Organization K1F:[facility] [address] [facility] [place] [address] Laboratory Report Ordering Provider Test Date Status BRADLY BERMAN 01/26/2024 08:01:21 Final Observation Date Value Abnormality Reference (Units ) Status BUN 01/26/2024 08:01:21 21 Above high normal 6-20 (mg/dL) Final Creatinine 01/26/2024 08:01:21 0.9 0.5-1.0 (mg/dL) Final Glomerular filtration rate/1.73 sq M.predicted [Volume Rate/Area] in Serum, Plasma or Blood by Creatinine-based formula (CKD-EPI) 01/26/2024 08:01:21 70 >=60 (mL/min) Final eGFR is calculated based on the CKD-EPI 2020 equation SODIUM 01/26/2024 08:01:21 136 135-146 (m mol/L) Final Potassium 01/26/2024 08:01:21 4.2 3.5-5.1 (m mol/L) Final Cl 01/26/2024 08:01:21 97 Below low normal 98- 107 (mmol/L) Final CO2 01/26/2024 08:01:21 27 22-32 (mmo l/L) Final Anion gap 01/26/2024 08:01:21 12 7-15 (mmol /L) Final Glucose 01/26/2024 08:01:21 355 Above high normal 70 -120 (mg/dL) Final Albumin 01/26/2024 08:01:21 4.0 3.8-5.0 (g /dL) Final AST (Aspartate aminotransferase) 01/26/2024 08:01:21 32 10-35 (U/L) Fin al Alk Phos 01/26/2024 08:01:21 143 Above high normal 35 -130 (U/L) Final Bilirubin, Total 01/26/2024 08:01:21 0.8 <=1 .2 (mg/dL) Final Calcium 01/26/2024 08:01:21 8.7 8.4-10.2 ( mg/dL) Final Protein 01/26/2024 08:01:21 7.3 6.0-8.3 (g /dL) Final ALT (Alanine aminotransferase) 01/26/2024 08:01:21 40 Above high normal 10-35 (U/L) Final Performing Location LABORATORY [facility] [address] [place] [address]
--- OUTSIDE RECORDS SUMMARY | 2024-01-29 21:19 | External Medical Summary | Summary of Care ---
Author Name Unknown Organization [facility] Address [address] [place] [address] Phone [phone] Care Team Providers Care Laboratory Animal Caretaker Name Role Phone Ivonne French PA-C Primary Care Provider [phone] [phone] Reason for Visit * Reason Comments Outpatient Testing Encounter Details Date Type Department Care Team (Late st Contact Info) Description 01/28/2024 7:30 AM EDT Laboratory Laboratory, [facility] [address] [place] [phone] [facility], Lab [address] [place], [place] [id number] 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sion [...] E11.9 1 Kit 0 05/25/2023 Active Pen [place] 32G X 4 MM Use as directed. [...] Hour (toPROL XL)Indications:Cor onary artery disease involving [place] coronary artery of [place] heart without angina pectoris Take 2 Tablets [...] 200 Strip 12/28/2023 Active OneTouch Delica Plus [id number] Use as directed. Use when checking blood [...] 8:30 AM EDT Hem/Onc Treatment Hematology/Oncology Treatment, [address] [address] [facility], Chair4 Hem Onc [address] [place] [address] Arrived 01/31/2024 9:30 AM EDT Office Visit Hematology/Oncology, [address] [place] [address] Ortega Verde MD [address] [place], [place] [id number] 02/08/2024 12:30 PM EDT Office Visit Podiatry [address] [place] [phone] Nayan Franklin, Jeffry [facility] [place] [address] 02/09/2024 11:00 AM EDT Office Visit Palliative Medicine, [address] 5th [place] [address] Nati Easley PAHanyC [address] [place] [address] 02/10/2024 11:40 AM EDT Office Visit [address] [address] Ivonne French PA-C [address] [facility] [place] [address] 02/11/2024 1:00 PM EDT Office Visit Pharmacy, [facility] [address] [facility] [place] [address] [facility] [place] [address] 03/14/2024 10:00 AM EDT Office Visit [facility], [place] [address] [address] [facility] [address] Ivonne French PA-C [address] [facility], [place] [address] 04/18/2024 10:00 AM EDT Office Visit [facility], [place] [address] [address] [facility] [address] Ivonne French PA-C [address] [facility] [address] 05/10/2024 8:15 AM EDT Office Visit [facility], [place] [address] [place] [address] Migel Ramires MD [address] [place] [address] 05/16/2024 10:00 AM EDT Office Visit [facility], [place] [address] [address] [facility] [address] Ivonne French PA-C [address] [facility] [address] Pending Results Name Type Priority Associated Diagnoses Date /Time CBC WITH WBC DIFFERENTIAL Lab STAT 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sion (HCC) 01/28/2024 7:46 AM EDT COMPREHENSIVE METABOLIC PANEL Lab STAT 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sion (HCC) 01/28/2024 7:46 AM EDT DIFFERENTIAL, AUTOMATED Lab STAT 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sion (HCC) 01/28/2024 7:46 AM EDT Scheduled Procedures Name Priority Associated [...] this encounter Medical Devices Implanted Type Area Graphic Design Professor Device Identifier Shelf Expiration Date Model / Serial / Lot Lens Intraoc 21.0 - [id number] - [id number] Implanted:Qty : 1 on 07/06/2017 by Luis Eduardo Cole MD at OR [facility] Left: Eye BAUSCH [employer] LOMB 01/05/2022 [id number] / [id number] / Lens Intraoc 21.0 - [id number] - [id number] Implanted:Qty : 1 on 07/20/2017 by Luis Eduardo Cole MD at OR [facility] Right: Eye BAUSCH & LOMB 01/05/2022 [id number] / [id number] / Syringe Prolaryn Del 1.0cc - [id number] Implanted:Qty : 1 on 11/20/2019 by Amber Jain MD at OR [facility] Right: Mouth [employer] 10/21/2021 [id number] / / [id number] Implant Silastic 7 Silicone Sw - [id number] Implanted:Qty : 1 on 05/28/2020 by Farhat Pate MD at OR [facility] Right: Throat Pairin [id number] / / documented as of this encounter Procedures Procedure Name Priority Date/Time Associated Diagnosis Comments CBC STAT 01/28/2024 7:46 AM EDT 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sion (HCC) documented in this encounter Results * (ABNORMAL) CBC (01/28/2024 7:46 AM EDT) WBC 1.53(L) 4.00 - 10.80 K/uL 01/28/2024 8:01 AM EDT LABORATORY [facility] RBC 2.60 3.85 - 5.15 M/uL 01/28/2024 8:01 AM EDT LABORATORY GL HGB 7.9(L) 12.0 - 15.3 g/dL 01/28/2024 8:01 AM EDT LABORATORY [facility] HCT 22.5(L) 36.0 - 45.2 % 01/28/2024 8:01 AM EDT LABORATORY [facility] MCV 86.5 81.5 - 97.5 fL 01/28/2024 8:01 AM EDT LABORATORY GL MCH 30.4 27.0 - 34.0 pg 01/28/2024 8:01 AM EDT LABORATORY GL MCHC 35.1 32.0 - 36.0 g/dL 01/28/2024 8:01 AM EDT LABORATORY GL RDW 14.7 11.5 - 15.5 % 01/28/2024 8:01 AM EDT LABORATORY GL PLT 78(L) 140 - 400 K/uL 01/28/2024 8:01 AM EDT LABORATORY GL MPV 9.4 6.6 - 11.1 fL 01/28/2024 8:01 AM EDT LABORATORY GL nRBCs 0 <=0 /100 WBCs 01/28/2024 8:01 AM EDT LABORATORY GL Blood Venous blood specimen / Unknown Venipuncture / Unknown 01/28/2024 7:46 AM EDT 01/28/2024 7:46 AM EDT Ortega Verde MD LAB BLOOD O RDERABLES LABORATORY [facility] [address] [place] [address] documented in this encounter Visit Diagnoses Diagnosis Acute myeloid [...] the patient have Health Care Power of Blocker And Sewer? No Code Status History Code Status Date [...] and were consensually agreed upon. Care Teams Laboratory Animal Caretaker Relationship Specialty Start Date End Date Ivonne French PA-C [address] [place] [address] PCP - General Physician Precision Instrument Maker And Repairer 07/24/21 documented as of this encounter
--- OUTSIDE RECORDS SUMMARY | 2024-01-29 21:19 | External Medical Summary ---
Author Name Unknown Address Unknown Organization K1F[facility] [address] [facility] [place] [address] Laboratory Report Ordering Provider Test Date Status BRADLY BERMAN 01/28/2024 07:46:33 Final Observation Date Value Abnormality Reference (Units ) Status BUN 01/28/2024 07:46:33 26 Above high normal 6-20 (mg/dL) Final Creatinine 01/28/2024 07:46:33 1.1 Above high normal 0.5-1.0 (mg/dL) Final Glomerular filtration rate/1.73 sq M.predicted [Volume Rate/Area] in Serum, Plasma or Blood by Creatinine-based formula (CKD-EPI) 01/28/2024 07:46:33 58 Below low normal >=60 (mL/min) Final eGFR is calculated based on the CKD-EPI 2020 equation Sodium 01/28/2024 07:46:33 135 135-146 (m mol/L) Final Potassium 01/28/2024 07:46:33 4.7 3.5-5.1 (m mol/L) Final Cl 01/28/2024 07:46:33 97 Below low normal 98- 107 (mmol/L) Final CO2 01/28/2024 07:46:33 27 22-32 (mmo l/L) Final Anion gap 01/28/2024 07:46:33 11 7-15 (mmol /L) Final Glucose 01/28/2024 07:46:33 326 Above high normal 70 -120 (mg/dL) Final Albumin 01/28/2024 07:46:33 4.0 3.8-5.0 (g /dL) Final AST (Aspartate aminotransferase) 01/28/2024 07:46:33 32 10-35 (U/L) Fin al Alk Phos 01/28/2024 07:46:33 147 Above high normal 35 -130 (U/L) Final Bilirubin, Total 01/28/2024 07:46:33 0.7 <=1 .2 (mg/dL) Final Calcium 01/28/2024 07:46:33 9.2 8.4-10.2 ( mg/dL) Final Protein 01/28/2024 07:46:33 7.1 6.0-8.3 (g /dL) Final ALT (Alanine aminotransferase) 01/28/2024 07:46:33 38 Above high normal 10-35 (U/L) Final Performing Location LABORATORY [facility] - [facility] [place] [address]
--- OUTSIDE RECORDS SUMMARY | 2024-01-29 21:19 | External Medical Summary | Summary of Care ---
Author Name Unknown Organization [facility] Address [address] [place] [address] Phone [phone] Care Team Providers Care Print Shop Assistant Name Role Phone Ivonne French PA-C Primary Care Provider [phone] Reason for Visit * Precert (Within 24 hrs (call dept; emergent)) - Authorized Specialty Diagnoses / Procedures Referred By Contac t Referred To Contact Radiology Diagnoses Constipation, unspecified constipation type Procedures CT ABD/PELVIS W IV AND W ORAL CONTRAST CT ABD/PELVIS W WO IV CONTRAST AND W ORAL CONT Tasneem Bryant CRNP [address] [facility] [place] [address] Referral ID Status Reason Start Date Expiration Date V isits Requested Visits Authorized [id number] Authorized 01/20/2024 [id number] Encounter Details Date Type Department Care Team (Latest Contact Info) Description 01/21/2024 11:45 AM EDT - 01/21/2024 11:59 PM EDT Hospital Encounter Radiology, [address] [address] [facility], [address] [place] [address] Arrived Discharge Disposition: Home - Self Care Allergies Active Allergy Reactions Criticality Noted Date Comments Adhesive Tape 04/21/2016 Glue off the old style medical tape. documented as of this encounter (statuses as of 01/22/2024) Medications Medication Sig Dispensed Refills Start Date End Date Status Aspirin 81 MG Tablet Take 1 Tablet by mouth in the morning. 0 Active DULoxetine HCl 60 MG Oral Capsule Delayed Release Particles (Cymbalta) Take 1 Capsule by mouth in the morning. 180 Capsule 0 11/24/2022 Active rimidiTouch Delica Lancets 33G Use to test blood sugar three times daily E 11.9 300 Each 05/25/2023 Active OneTouch Verio w/Device Kit Use up to 3 times a day E11.9 1 Kit 0 05/25/2023 Active Pen [place] 32G X 4 MM Use as directed. Use to inject insulin 4 times daily 100 Each 05/25/2023 Active Triamcinolone Acetonide 0.1 % External Ointment (Aristocort)Indicat ions:Contact dermatitis, unspecified contact dermatitis type, unspecified trigger [...] 1 09/03/2023 Active Magnesium 400 MG Oral TabletIndications:R estless legs syndrome Take 1 Tablet by mouth at bedtime. 90 Tablet 1 09/03/2023 Active Mounjaro 10 MG/0.5ML Subcutaneous Solution Pen-injector (Tirzepatide) Inject 10 mg under the skin once a week. 6 mL 1 09/09/2023 09/08/2024 Active Linzess 72 MCG Oral Capsule (linaCLOtide)Indica tions:Drug-induced constipation Take 1 Capsule by mouth daily [...] 11/19/2023 Active Allopurinol 300 MG Oral Tablet (Zyloprim)Indicatio ns: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sion (HCC) Take 1 Tablet by mouth in the morning. 30 Tablet 2 11/23/2023 Active Insulin Glargine Solostar 100 UNIT/ML Subcutaneous Solution Pen-injector (Lantus SoloStar) Inject 25 Units under the skin at bedtime. 45 mL 3 12/28/2023 Active Metoprolol Succinate ER 25 MG Oral Tablet Extended Release 24 Hour (toPROL XL)Indications:Craig nary artery disease involving [place] coronary artery of [place] heart without angina pectoris Take 2 Tablets by mouth daily in the morning. 135 Tablet 1 12/28/2023 Active Acyclovir 400 MG Oral Tablet (Zovirax) Take 1 Tablet by mouth in the morning and 1 Tablet before bedtime. 60 Tablet 3 12/28/2023 Active levoFLOXacin 500 MG Oral Tablet (Levaquin) Take 1 Tablet by mouth daily in the morning. 30 Tablet 1 12/29/2023 Active rimidiToPlatter Verio In Vitro Strip (Glucose Blood) Use when checking blood glucose levels 4 times per day 200 Strip 5 12/28/2023 Active rimidiTouch Delica Plus [id number] Use as directed. Use when checking blood [...] 21 mL 3 12/28/2023 Active Magic Swizzle (Lidocaine-Benadryl -Maalox) oral solutionIndications :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sion (HCC),Hypervolemia, unspecified hypervolemia type Swish and spit 15 mL in the morning and 15 mL at noon and 15 mL before bedtime. 300 mL 1 01/04/2024 Active Furosemide 40 MG Oral Tablet (Lasix)Indications: 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sion (HCC),Hypervolemia, unspecified hypervolemia type Take 1 Tablet by mouth in the morning. 31 Tablet 5 01/05/2024 Active Potassium Chloride ER 20 MEQ Oral Tablet Extended Release Take 1 Tablet by mouth in the morning. 31 Tablet 5 01/05/2024 Active Calcium Carb-Cholecalcifero l 600-20 MG-MCG Oral Tablet (Caltrate 600+D3)Indications: Hypocalcemia Take 1 Tablet by mouth every morning. 90 Tablet 1 01/10/2024 04/09/2024 Active Sennosides-Docusate Sodium 8.6-50 MG Oral Tablet (Senokot S)Indications:Const ipation, unspecified constipation type Take 2 Tablets by mouth in the morning and 2 Tablets before bedtime. 60 Tablet 1 01/10/2024 Active documented as of this encounter (statuses as of 01/22/2024) Active Problems Problem Noted Date Diagnosed Date [...] as of this encounter (statuses as of 01/22/2024) Resolved Problems Problem Noted Date Diagnosed Date [...] as of this encounter (statuses as of 01/22/2024) Immunizations Name Administration Dates Next Due COVID-19 [...] Description 01/24/2024 9:00 AM EDT Laboratory Laboratory, [address] [address] [facility], Lab [address] [place] [address] [place] [address] 01/24/2024 10:00 AM EDT Telemedicine Hematology/Oncology, [address] [address] Ortega Verde MD [address] [place] [address] Cart, [facility] Hem On[facility] [address] [place], [place] [address] [address] 01/24/2024 10:30 AM EDT Hem/Onc Treatment Hematology/Oncology Treatment, [address] [place] [address] [facility], Chair1 Hem Onc [address] [place], [place] [address] [address] 01/26/2024 9:00 AM EDT Office Visit Pharmacy, [address] [place] [address] [facility] [address] [place] [address] 01/31/2024 9:00 AM EDT Imaging Radiology [facility] 1st [facility] [address] [place] [address] 02/08/2024 12:30 PM EDT Office Visit Podiatry [facility], [address] [place] [phone] Nayan Franklin, [facility] [address] [place] [address] 02/09/2024 11:00 AM EDT Office Visit Palliative Medicine, [facility] [address] [facility] 5th Floor [place] [address] Nati Easley PA-C [address] [place] [address] 02/10/2024 11:40 AM EDT Office Visit [facility], [place] [address] [address] [facility], [place] [address] Ivonne French PA-C [address] [facility], [place] [address] 03/14/2024 10:00 AM EDT Office Visit [facility], [place] [address] [address] [facility] [address] Ivonne French PA-C [address] [facility], [place] [address] 04/18/2024 10:00 AM EDT Office Visit [facility], [place] [address] [address] [facility] [address] Ivonne French PA-C [address] [facility] [address] 05/10/2024 8:15 AM EDT Office Visit Ophthalmology, [place] [address] [place] [address] Migel Ramires MD [address] [place] [address] 05/16/2024 10:00 AM EDT Office Visit [facility] [address] [facility] [place] [phone] Ivonne French PA-C [address] [place] [address] Scheduled Procedures Name Priority Associated Diagnoses Date/Ti [...] this encounter Medical Devices Implanted Type Area Bilingual Teacher Device Identifier Shelf Expiration Date Model / Serial / Lot Lens Intraoc 21.0 - [id number] - [id number] Implanted:Qty : 1 on 07/06/2017 by Luis Eduardo Cole MD at OR [facility] Left: Eye BAUSCH [employer] LOMB 01/05/2022 [id number] / [id number] / Lens Intraoc 21.0 - [id number] - [id number] Implanted:Qty : 1 on 07/20/2017 by Luis Eduardo Cole MD at OR [facility] Right: Eye BAUSCH [employer] LOMB 01/05/2022 [id number] / [id number] / Syringe Prolaryn Del 1.0cc - [id number] Implanted:Qty : 1 on 11/20/2019 by Amber Jain MD at OR [facility] Right: Mouth [employer] 10/21/2021 [id number] / / [id number] Implant Silastic 7 Silicone Sw - [id number] Implanted:Qty : 1 on 05/28/2020 by Farhat Pate MD at OR [facility] Right: Throat [employer] [id number] / / documented as of this encounter Procedures Procedure Name Priority Date/Time Associated Diagnosis Comments CT ABD/PELVIS W IV AND W ORAL CONTRAST STAT 01/21/2024 1:13 PM EDT Constipation, unspecified constipation type documented in this encounter Results * CT ABD/PELVIS W IV AND W ORAL CONTRAST (01/21/2024 1:13 PM EDT) Anatomical Region Laterality Modality Body, Abdomen, Pelvis Computed T omography 01/21/2024 2:25 PM EDT Impressions 01/21/2024 2:23 PM EDT IMPRESSION 1. No bowel obstruction. 2. Focal fat stranding surrounding a normal sized lymph node along the root of the mesentery, which likely represents either edema or scarring from acute or prior infection/inflammation. Narrative 01/21/2024 2:[address] ABD/PELVIS W IV AND W ORAL CONTRAST01/21/2024 1:13 pm HISTORY suspected bowel obstruction TECHNIQUE Oral contrast: Oral contrast was administered. Intravenous contrast: Intravenous contrast was administered. COMPARISON CT of the chest dated 12/16/2023 FINDINGS LOWER CHEST: Mild dependent atelectasis. ABDOMEN: LIVER: Within normal limits. BILE DUCTS: Normal caliber. GALLBLADDER: Absent. PANCREAS: Within normal limits. SPLEEN: Within normal limits. ADRENALS: Within normal limits. KIDNEYS/URETERS: Mild multifocal scarring throughout both kidneys. Small bilateral external pelvises. No calculus or hydroureteronephrosis. PELVIS: BLADDER: Within normal limits. REPRODUCTIVE ORGANS: Within normal limits. BOWEL: Decompressed stomach. Normal caliber small and large bowel. No wall thickening. Normal appendix. LYMPH NODES: Focal fat stranding surrounding a normal sized lymph node along the root of the mesentery (series 4, image 50). No enlarged lymph nodes. VESSELS: Mild atherosclerotic calcification. No aortic aneurysm. Patent portal, splenic, superior mesenteric, and inferior mesenteric veins. PERITONEUM: No ascites, free air, or fluid collection. RETROPERITONEUM: Within normal limits. ABDOMINAL WALL: Mild diffuse subcutaneous fat stranding, which may represent edema or scarring. A few small hyperdensities in the anterior subcutaneous fat of the abdominal wall likely represent the sequelae of subcutaneous medication injection. BONES: Diffuse degenerative changes. Intraosseous hemangioma in the L1 vertebral body. No suspicious lesion. Procedure Note Roger Harry MD - 01/21/[address] ABD/PELVIS W IV AND W ORAL CONTRAST01/21/2024 1:13 pm HISTORY suspected bowel obstruction TECHNIQUE Oral contrast: Oral contrast was administered. Intravenous contrast: Intravenous contrast was administered. COMPARISON CT of the chest dated 12/16/2023 FINDINGS LOWER CHEST: Mild dependent atelectasis. ABDOMEN: LIVER: Within normal limits. BILE DUCTS: Normal caliber. GALLBLADDER: Absent. PANCREAS: Within normal limits. SPLEEN: Within normal limits. ADRENALS: Within normal limits. KIDNEYS/URETERS: Mild multifocal scarring throughout both kidneys. Smallbilateral external pelvises. No calculus or hydroureteronephrosis. PELVIS: BLADDER: Within normal limits. REPRODUCTIVE ORGANS: Within normal limits. BOWEL: Decompressed stomach. Normal caliber small and large bowel. Nowall thickening. Normal appendix. LYMPH NODES: Focal fat stranding surrounding a normal sized lymph nodealong the root of the mesentery (series 4, image 50). No enlarged lymphnodes. VESSELS: Mild atherosclerotic calcification. No aortic aneurysm. Patentportal, splenic, superior mesenteric, and inferior mesenteric veins. PERITONEUM: No ascites, free air, or fluid collection. RETROPERITONEUM: Within normal limits. ABDOMINAL WALL: Mild diffuse subcutaneous fat stranding, which mayrepresent edema or scarring. A few small hyperdensities in the anteriorsubcutaneous fat of the abdominal wall likely represent the sequelae ofsubcutaneous medication injection. BONES: Diffuse degenerative changes. Intraosseous hemangioma in the [id number] body. No suspicious lesion. IMPRESSION IMPRESSION 1. No bowel obstruction. 2. Focal fat stranding surrounding a normal sized lymph node along theroot of the mesentery, which likely represents either edema or scarringfrom acute or prior infection/inflammation. Tasneem MEDINA RAD CT documented in this encounter Visit Diagnoses Diagnosis Constipation, unspecified constipation type documented in this encounter Administered Medications Inactive Administered Medications - up to 3 most recent administrations Medication Order MAR Action Action Date Dose Rate Site Ioversol (Optiray 320) inj 100 mL 100 mL, Intravenous, ONCE, On 01/21/24 at 1316, For 1 dose, Radiology Medication Routing (Non-IR) Given 01/21/2024 1:15 PM EDT 100 mL documented in this encounter Advance Directives Latest Code Status on File Code Status Date Activated Date Inactivated Comments No Code 11/24/2023 7:24 PM 12/28/2023 9:25 PM This order reflects the patients wishes and were consensually agreed upon. Question Answer Comments Discussion of Advance Directives occurred with: Patient Does the patient have a Living Will? No Does the patient have Health Care Power of Medical Imaging Technician? No Code Status History Code Status Date [...] and were consensually agreed upon. Care Teams Print Shop Assistant Relationship Specialty Start Date End Date Ivonne French PA-C [address] [place] [address] PCP - General Physician [employer] 07/24/21 documented as of this encounter
--- OUTSIDE RECORDS SUMMARY | 2024-01-29 21:20 | External Medical Summary | Summary of Care ---
Author Name Unknown Organization [facility] Address [address] [place] [address] Phone [phone] Care Team Providers Care Business Process Lead Name Role Phone Ivonne Alfonso PA-C Primary Care Provider [phone] Reason for Visit * Reason Onset Date Comments Med Request 01/20/2024 Encounter Details Date Type Department Care Team ([facility] st Contact Info) Description 01/20/2024 Telephone [facility] [address] [place] [address] Ivonne Alfonso PA-C [address] [place] [address] Med Request (/) Allergies Active Allergy Reactions Criticality Noted Date Comments Adhesive Tape 04/21/2016 Glue off the old style medical tape. documented as of this encounter (statuses as of 01/21/2024) Medications Medication Sig Dispensed Refills Start Date [...] E11.9 1 Kit 0 05/25/2023 Active Pen Camp 32G X 4 MM Use as directed. [...] Hour (toPROL XL)Indications:Cor onary artery disease involving [place] coronary artery of [place] heart without angina pectoris Take 2 Tablets [...] 200 Strip 12/28/2023 Active OneTouch Delica Plus [id number] Use as directed. Use when checking blood [...] severe constipation 237 mL 1 01/21/2024 Active documented as of this encounter (statuses as of 01/21/2024) Active Problems Problem Noted Date Diagnosed Date [...] as of this encounter (statuses as of 01/21/2024) Resolved Problems Problem Noted Date Diagnosed Date [...] as of this encounter (statuses as of 01/21/2024) Immunizations Name Administration Dates Next Due COVID-19 [...] shopping? (15 years old or older) No 01/17/20 24 Cognitive Status Response Date of Assessm ent Because of a physical, menta l, or emotional condition, do you have serious difficulty concentrating, remembering, or making decisions? (5 years old or older) No 11/24/2023 documented as of this encounter Miscellaneous Notes * Addendum Note - Ivonne Alfonso PA-C - 01/21/2024 1:27 PM EDTAddended by: IVONNE ALFONSO on: 01/21/2024 01:27 PM Modules accepted: Orders * Telephone Encounter - Fernanda Olson CPhT - 01/20/2024 4:24 PM EDT Patient is requesting that it be refilled , it was discontinued while she was in the hospital. She is also asking if the dose could be higher. Patient requesting refills for Lactulose 10 mg. Upon chart review, medication is listed as discontinued, with discontinuation reason as "none". Please advise if you wish to continue this therapy for the patient. Thank you, Fernanda Olson CPhT [employer] [facility] ([facility]formerly telepharmacy) 01/20/2024,4:24 PM documented in this encounter Plan of Treatment Upcoming Encounters Date Type Department Care Team (Late st Contact Info) Description 01/24/2024 9:00 AM EDT Laboratory Laboratory, [address] [phone] [facility], Lab [address] [place] [address] 01/24/2024 10:00 AM EDT Telemedicine Hematology/Oncology, [address] [address] Ortega Verde MD [address] [place] [address] Cart, Telemed [facility] [address] 01/24/2024 10:30 AM EDT Hem/Onc Treatment Hematology/Oncology Treatment, [address] [place] [address] [facility], Chair1 Hem Onc [address] [place] [address], [place] [address] 01/26/2024 9:00 AM EDT Office Visit Pharmacy, [facility] 132 [facility] [place] [address] [facility] 132 [facility] [place] [address] 01/31/2024 9:00 AM EDT Imaging Radiology [facility]st [facility] 132 [facility] [place] [address] 02/08/2024 12:30 PM EDT Office Visit Podiatry [address] [place] [address] Nayan Franklin, [place] [address] [place] [address] 02/09/2024 11:00 AM EDT Office Visit Palliative Medicine, [address] 5th Floor [place] [address] Nati Easley PA-C 400 [facility] [place] [address] 02/10/2024 11:40 AM EDT Office Visit [address] [place] [phone] Ivonne Alfonso PA-C [address] [facility], [place] [address] 03/14/2024 10:00 AM EDT Office Visit [facility], [place] [address] [address] [facility] [place] [address] Ivonne Alfonso PA-C [address] [facility], [place] [address] 04/18/2024 10:00 AM EDT Office Visit [place] [address] [address] [facility], [place] [address] Ivonne Alfonso PA-C [address] [facility], [place] [address] 05/10/2024 8:15 AM EDT Office Visit [facility] [address] [place] [address] Migel Ramires MD [address] [place] [address] 05/16/2024 10:00 AM EDT Office Visit [place] [address] [address] [facility], [place] [address] Ivonne Alfonso PA-C [address] [facility], [place] [phone] Scheduled Procedures Name Priority Associated Diagnoses Date/Ti [...] this encounter Medical Devices Implanted Type Area Compliance Project Manager Device Identifier Shelf Expiration Date Model / Serial / Lot Lens Intraoc 21.0 - [id number] - [id number] Implanted:Qty : 1 on 07/06/2017 by Luis Eduardo Cole MD at OR [facility] Left: Eye BAUSCH & LOMB 01/05/2022 [id number] / [id number] / Lens Intraoc 21.0 - [id number] - [id number] Implanted:Qty : 1 on 07/20/2017 by Luis Eduardo Cole MD at OR [facility] Right: Eye BAUSCH & LOMB 01/05/2022 [id number] / [id number] / Syringe Prolaryn Del 1.0cc - [id number] Implanted:Qty : 1 on 11/20/2019 by Amber Jain MD at OR [facility] Right: Mouth [employer] 10/21/2021 [id number] / / [id number] Implant Silastic 7 Silicone Sw - [id number] Implanted:Qty : 1 on 05/28/2020 by Farhat Pate MD at OR [facility] Right: Throat Opp.io [id number] / / documented as of this [...] the patient have Health Care Power of Internal Auditor? No Code Status History Code Status Date [...] and were consensually agreed upon. Care Teams Business Process Lead Relationship Specialty Start Date End Date Ivonne Alfonso PA-C [address] [facility] [place] [address] PCP - General Physician Court Messenger 07/24/21 documented as of this encounter
--- OUTSIDE RECORDS SUMMARY | 2024-01-29 21:20 | External Medical Summary | Summary of Care ---
Author Name Unknown Organization [facility] Address [address] [place] [address] Phone [phone] Care Team Providers Care Security Team Lead Name Role Phone Ivonne French PA-C Primary Care Provider [phone] Reason for Visit * Episode Based Medications (Routine) - Authorized Specialty Diagnoses / Procedures Referred By Contac t Referred To Contact Diagnoses 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sion (HCC) Procedures CO DECITABINE INJECTION Nilton Senior MD [address] [place] [address] Anc Hem/Onc [place] [address] [place] [address] Referral ID Status Reason Start Date Expiration Date V isits Requested Visits Authorized [id number] Authorized 11/24/2023 11/07/2099 [id number] Encounter Details Date Type Department Care Team (Latest Contact Info) Description 01/21/2024 10:30 AM EDT Hem/Onc Treatment Hematology/Oncology Treatment, [address] [place] [address] [facility], Chair2 Hem Onc [address] [place] [address] 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sion (HCC)* Allergies Active Allergy Reactions Criticality Noted Date [...] E11.9 1 Kit 0 05/25/2023 Active Pen [place] 32G X 4 MM Use as directed. [...] Hour (toPROL XL)Indications:Craig nary artery disease involving [place] coronary artery of [place] heart without angina pectoris Take 2 Tablets [...] Strip 5 12/28/2023 Active OneTouch Delica Plus Ehpnps83K Use as directed. Use when checking blood [...] Sign Reading Time Taken Comments Blood Pressure 108/53 01/21/2024 10:32 AM EDT Pulse 64 01/21/2024 10:32 AM EDT Temperature 36.7 C (98.1 F) 01/21/2024 10:32 AM E DT Respiratory Rate 18 01/21/2024 10:32 AM EDT Oxygen Saturation - - Inhaled Oxygen Concentration - - Weight - - Height - - Body Mass Index - - documented in this encounter Functional Status Functional [...] as of this encounter Nursing Notes * Felicitas Ly RN - 01/21/2024 12:55 PM EDT Patient in chair 2 for her day 5 chemo today. Chemotherapy/Immunotherapy agents: Dacogen Consent for chemotherapy drug treatment complete, dated, and signed? yes, date - 11/25/22 Treatment lab parameters met? Yes Has treatment weight changed > than 10%? No Treatment preauthorized? Yes VITALS Filed Vitals: 01/21/24 1032 BP: 108/53 Pulse: 64 Resp: 18 Temp: 36.7 C (98.1 F) TempSrc: Tympanic Urine protein: N/A Patient education completed for treatment? Yes Blood transfusion consent signed and complete? Yes 12/07/23 Return appointment scheduled? Yes Patient had provider visit today? No - If no provider visit must complete Pretreatment Assessment Functional Status: Functional status at today's visit: Fully active, able to carry on all pre-disease performance without restriction The drug name, dose, infusion volume, rate and route of administration, expiration date and time, appearance and physical integrity of the drug and rate set on the pump and sequencing of drug administration (as applicable) were verified by me and second sign-in RN. Patient was assessed for symptoms or adverse side effects during treatment. Patient left IVC by ambulating. Unaccompanied. Voiced no complaints. Felicitas Ly, RN 01/21/2024 1:05 PM documented in this encounter Plan of Treatment Upcoming Encounters Date Type Department Care Team (Late st Contact Info) Description 01/24/2024 9:00 AM EDT Laboratory Laboratory, [address] [phone] [facility], Lab [address] [place] [address] 01/24/2024 10:00 AM EDT Telemedicine Hematology/Oncology, [address] [address] Ortega Verde MD [address] [place], [place] [address] Cart, Telemed [facility] Hem Onc Clinic [address] [place] [address] 01/24/2024 10:30 AM EDT Hem/Onc Treatment Hematology/Oncology Treatment, [address] [address] [facility], Chair1 Hem Onc [address] [place] [address] [place] [address] 01/26/2024 9:00 AM EDT Office Visit Pharmacy, [facility] 132 [facility] [place] [address] [facility] 132 [facility] [place] [address] 01/31/2024 9:00 AM EDT Imaging Radiology [facility] 1st Floor, [place] [address] [facility] [place] [address] 02/08/2024 12:30 PM EDT Office Visit Podiatry [address] [place] [address] Nayan Franklin, M [address] [place] [address] 02/09/2024 11:00 AM EDT Office Visit Palliative Medicine, [facility] 400 [facility] 5th [place] [address] Nati Easley PA-C [address] [place] [address] 02/10/2024 11:40 AM EDT Office Visit [facility], [place] [address] [facility] [address] Ivonne French PA-C [address] [place] [address] 03/14/2024 10:00 AM EDT Office Visit [facility], [place] [address] [facility] [address] Ivonne French PA-C [address] [facility], [place] [address] 04/18/2024 10:00 AM EDT Office Visit [facility], [place] [address] [address] [facility] [address] Ivonne French PA-C [address] [facility], [place] [address] 05/10/2024 8:15 AM EDT Office Visit Ophthalmology, [place] [address] [place] [address] Migel Ramires MD [address] [place] [address] 05/16/2024 10:00 AM EDT Office Visit [facility] [address] [place] [phone] Ivonne French PA-C [address] [place] [address] Scheduled Procedures Name Priority Associated Diagnoses Date/Ti [...] this encounter Medical Devices Implanted Type Area Bulk Mail Technician Device Identifier Shelf Expiration Date Model / Serial / Lot Lens Intraoc 21.0 - [id number] - [id number] Implanted:Qty : 1 on 07/06/2017 by Luis Eduardo Cole MD at OR [facility] Left: Eye BAUSCH & LOMB 01/05/2022 [id number] / [id number] / Lens Intraoc 21.0 - [id number] - [id number] Implanted:Qty : 1 on 07/20/2017 by Luis Eduardo Cole MD at OR [facility] Right: Eye BAUSCH & LOMB 01/05/2022 [id number] / [id number] / Syringe Prolaryn Del 1.0cc - [id number] Implanted:Qty : 1 on 11/20/2019 by Amber Jain MD at OR [facility] Right: Mouth [employer] 10/21/2021 [id number] / / [id number] Implant Silastic 7 Silicone Sw - [id number] Implanted:Qty : 1 on 05/28/2020 by Fahrat Pate MD at OR [facility] Right: Throat Sevenpop [id number] / / documented as of this encounter Visit Diagnoses Diagnosis 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sion (HCC)- Primary documented in this encounter Administered Medications Active Administered Medications - up to 3 most recent administrations Medication Order MAR Action Action Date Dose Rate Site diphenhydrAMINE (Benadryl) inj 50 mg 50 mg, IV Push, ONCE PRN Other, Hypersensitivity Reaction, Starting on Wed01/21/24 at 1033, Until 01/22/24 at 1032, For 24 hours EPINEPHrine 1 MG/ML inj 0.3 mg 0.3 mg, Intramuscular, ONCE PRN Other, Hypersensitivity Reaction or Anaphylaxis, Starting on Wed01/21/24 at 1033, Until 01/22/24 at 1032, For 24 hours hEParin 100 UNIT/ML Lock Flush inj 500 Units 500 Units (5 mL), IV Lock, PRN Other, IV Flush, Starting on Wed01/21/24 at 1033, Until 01/22/24 at 1032, For 24 hours, Do not flush if lock, PICC, or central line not in place; IV infusing or unable to flush. Hydrocortisone Sod Suc (PF) (Solu-Cortef) inj 100 mg 100 mg, IV Push, ONCE PRN Other, Hypersensitivity Reaction, Starting on Wed01/21/24 at 1033, Until 01/22/24 at 1032, For 24 hours NSS infusion Intravenous, at 50 mL/hr, PRN, Starting on Wed01/21/24 at 1145, Until Discontinued, Maintenance line Start Infusion 01/21/2024 10:39 AM EDT 50 mL/hr oxygen GAS Inhalation, OXYGEN, First dose on Wed01/21/24 at 1115, Until Discontinued, Device/Managed by: Low Flow Device, Goal SPO2 (%): 91-95, Starting Device: Nasal Cannula, Initial Flow Rate (LPM): 2, Lowest Support: Nasal Cannula: Flow 0-6 LPM. Titrate up/down by 1 LPM., Higher Support: Non-Rebreather (NRB) Mask: Minimum of 10 LPM. Titrate to maintain bag inflation., Titration Interval: Q2 minutes and as needed., Notify Provider: For sudden DECREASE in resting SPO2 to less than 85% and when escalating delivery device., Wean patient off Oxygen when the oxygen saturation is greater than or equal to 93% sodium chloride 0.9 % flush central line 10 mL 10 mL, IV Push, PRN Other, IV Flush, Starting on Wed01/21/24 at 1033, Until 01/22/24 at 1032, For 24 hours, Do not flush if lock, PICC, or central line not in place; IV infusing or unable to flush. Inactive Administered Medications - up to 3 most recent administrations Medication Order MAR Action Action Date Dose Rate Site Decitabine (Dacogen) 41.4 mg in NSS 100 mL infusion 41.4 mg (20 mg/m2 2.07 m2 Treatment Plan BSA from Recorded weight), IV Piggyback, ONCE, 1 dose, On Wed01/21/24 at 1145, Administer over 60 Minutes Start Infusion 01/21/2024 11:05 AM EDT 41.4 mg 100 mL/hr documented in this encounter Advance Directives Latest Code Status on File Code Status Date Activated Date Inactivated Comments No Code 11/24/2023 7:24 PM 12/28/2023 9:25 PM This order reflects the patients wishes and were consensually agreed upon. Question Answer Comments Discussion of Advance Directives occurred with: Patient Does the patient have a Living Will? No Does the patient have Health Care Power of Arranger Assembler? No Code Status History Code Status Date [...] and were consensually agreed upon. Care Teams Security Team Lead Relationship Specialty Start Date End Date Ivonne French PA-C [address] [place] [address] PCP - General Physician Barnworker Groom 07/24/21 documented as of this encounter
--- OUTSIDE RECORDS SUMMARY | 2024-01-29 21:20 | External Medical Summary | Summary of Care ---
Author Name Unknown Organization [facility] Address [address] [place] [address] Phone [phone] Care Team Providers Care Poultry Service Technician Name Role Phone Ivonne French PA-C Primary Care Provider [phone] Reason for Visit * Reason Onset Date Comments Other 01/21/2024 Encounter Details Date Type Department Care Team (Late st Contact Info) Description 01/21/2024 Telephone Hematology/Oncology Treatment, [facility] [address] [place] [address] Tasneem Bryant CRNP [address] [place], [place] [phone] Other Allergies Active Allergy Reactions Criticality Noted Date [...] E11.9 1 Kit 0 05/25/2023 Active Pen Ralph 32G X 4 MM Use as directed. [...] Hour (toPROL XL)Indications:Cor onary artery disease involving [place] coronary artery of [place] heart without angina pectoris Take 2 Tablets [...] 200 Strip 12/28/2023 Active OneTouch Delica Plus Utwasx37F Use as directed. Use when checking blood [...] encounter Miscellaneous Notes * Telephone Encounter - Terrie Baires RN - 01/21/2024 3:23 PM EDT Called and relayed the message from below. Verbalized understanding and is aware of the script that was sent to her pharmacy. * Telephone Encounter - Terrie Baires RN - 01/21/2024 3:21 PM EDT Tasneem Bryant CRNP P [facility] Hem/Onc Nurse Pool/Class I tried calling Juany to let her know that her CT results were negative for bowel obstruction but got her voicemail. I spoke with her today in infusion and I told her I would order a suppository that she can use oncedaily PRN if it was all clear. She has had some relief since yesterday, which was reassuring. I went ahead and ordered the suppository to her [facility] in [place] so that she can pick itup and try it this weekend, in addition to her Senna BID and Miralax PRN. Would you be able to please try and get in touch her to let her know about the suppository? Thank you, Tasneem Bryant documented in this encounter Plan of Treatment Upcoming Encounters Date Type Department Care Team (Late st Contact Info) Description 01/24/2024 9:00 AM EDT Laboratory Laboratory, [facility] [address] [place] [phone] [facility], Lab [address] [place] [address] 01/24/2024 10:00 AM EDT Telemedicine Hematology/Oncology, [address] [address] Ortega Verde MD [address] [place] [address] Cart, Telemed [facility] Hem Onc Clinic [address] [place] [address] 01/24/2024 10:30 AM EDT Hem/Onc Treatment Hematology/Oncology Treatment, [address] [address] [facility], Chair1 Hem Onc [address] [place] [address] 01/26/2024 9:00 AM EDT Office Visit Pharmacy, [facility] [address] [facility] 132 [place] [address] 01/31/2024 9:00 AM EDT Imaging Radiology [facility] 1st [facility] 132 [facility] [place] [address] 02/08/2024 12:30 PM EDT Office Visit Podiatry [address] [place] [address] Nayan Franklin, EVANGELINA [facility]0 [place], [place] [phone] 02/09/2024 11:00 AM EDT Office Visit Palliative Medicine, [address] 5th [place] [address] Nati Easley PA-C 400 [place] [address] 02/10/2024 11:40 AM EDT Office Visit [facility], [place] [address] [address] [facility], [place] [address] Ivonne French PA-C [address] [facility], [place] [address] 03/14/2024 10:00 AM EDT Office Visit [facility], [place] [address] [facility], [place] [address] Ivonne French PA-C [address] [facility], [place] [address] 04/18/2024 10:00 AM EDT Office Visit [facility], [place] [address] [address] [facility], [place] [address] Ivonne French PA-C [address] [facility], [place] [address] 05/10/2024 8:15 AM EDT [facility] [address] [place] [address] Migel Ramires MD [address] [place] [address] 05/16/2024 10:00 AM EDT Office Visit [place] [address] [address] [facility], [place] [address] Ivonne French PA-C [address] [facility], [place] [address] Scheduled Procedures Name Priority Associated Diagnoses Date/Ti [...] this encounter Medical Devices Implanted Type Area Acquisition Analyst Device Identifier Shelf Expiration Date Model / Serial / Lot Lens Intraoc 21.0 - [id number] - [id number] Implanted:Qty : 1 on 07/06/2017 by Luis Eduardo Cole MD at OR [facility] Left: Eye BAUSCH [employer] LOMB 01/05/2022 [id number] / [id number] / Lens Intraoc 21.0 - [id number] - [id number] Implanted:Qty : 1 on 07/20/2017 by Luis Eduardo Cole MD at OR [facility] Right: Eye BAUSCH & LOMB 01/05/2022 [id number] / [id number] / Syringe Prolaryn Del 1.0cc - [id number] Implanted:Qty : 1 on 11/20/2019 by Amber Jain MD at OR [facility] Right: Mouth [employer] 10/21/2021 [id number] / / [id number] Implant Silastic 7 Silicone Sw - [id number] Implanted:Qty : 1 on 05/28/2020 by Farhat Pate MD at OR [facility] Right: Throat JumpSeat [id number] / / documented as of this [...] patient have Health Care Power of Machine Feeder Raw Stock? No Code Status History Code Status Date [...] and were consensually agreed upon. Care Teams Poultry Service Technician Relationship Specialty Start Date End Date Ivonne French PA-C [address] [place] [address] PCP - General Physician Pest Control Supervisor 07/24/21 documented as of this encounter
--- OUTSIDE RECORDS SUMMARY | 2024-01-29 21:20 | External Medical Summary | Summary of Care ---
Author Name Unknown Organization [facility] Address [address] [place] [address] Phone [phone] Care Team Providers Care Injection Operator Name Role Phone Ivonne French PA-C Primary Care Provider [phone] Reason for Visit * Reason Comments Treatment C 2 D 4 Dacogen * Episode Based Medications (Routine) - Authorized Specialty Diagnoses / Procedures Referred By Contsumanth t Referred To Contact Diagnoses 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sion (HCC) Procedures NE DECITABINE INJECTION Nilton Senior MD [address] [place] [address] Anc Hem/Onc [place] [address] [place] [address] Referral ID Status Reason Start Date Expiration Date V isits Requested Visits Authorized [id number] Authorized 11/24/2023 11/07/2099 999 [id number] Encounter Details Date Type Department Care Team (Latest Contact Info) Description 01/20/2024 12:00 PM EDT Hem/Onc Treatment Hematology/Oncology Treatment, [address] [address] [facility], Chair3 Hem Onc [address] [place] [address] [place], [place] [id number] 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sion [...] the morning. 180 Capsule 0 11/24/2022 Active RevverTouch Delica Lancets 33G Use to test blood sugar three times daily E 11.9 300 Each 05/25/2023 Active OneTouch Verio w/Device Kit Use up to 3 times a day E11.9 1 Kit 0 05/25/2023 Active Pen Concan 32G X 4 MM Use as directed. 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 Use when checking blood [...] Nursing Notes * Francesca Beckham, RN - 01/20/2024 12:12 PM EDT [place] [facility] 10 Chemotherapy/Immunotherapy agents: Dacogen Consent for chemotherapy drug treatment complete, dated, and signed? yes, date - 11/25/23 Treatment lab parameters met? Yes Has treatment weight changed > than 10%? No Treatment preauthorized? Yes Urine protein: N/A Patient education completed for treatment? Yes Blood transfusion consent signed and complete? Yes 12/07/23 Return appointment scheduled? Yes Patient had provider visit today? Yes - Ok to release order and treat per provider Functional Status: Functional status at today's visit: Restricted in physically strenuous activity but ambulatory and able to carry out work on a light orsedentary nature, e.g. light house work, office work The drug name, dose, infusion volume, rate and route of administration, expiration date and time, appearance and physical integrity of the drug and rate set on the pump and sequencing of drug administration (as applicable) were verified by me and second sign-in RN. Patient was assessed for symptoms or adverse side effects during treatment. During infusion, pt reported wave of abdominal pain for which Tasneem MEDINA had ordered CT scan. Abdominal pain continued to worsen. Tasneem MEDINA did come over to infusion center to talk to pt. Tasneem MEDINA and pt agreed for pt to go to ER after chemo infusion for further evaluation andmanagement of pain. Pt tolerated treatment at infusion center. Patient left IVC by ambulating. Unaccompanied. Voiced no complaints. Francesca Beckham, RN 01/20/2024 [facility] Nursing Care Plan ID is not set. 01/20/2024 Safety and Risk for Injury Patient will remain free from injury. Assess patient's risk for falls per policy. Encourage activity as ordered per policy. Ensure appropriate safety devices are available. Implement fall prevention plan of care per policy. Include patient and caregiver in decisions related to safety. Perform safety rounds per policy. Provide and maintain safe environment. Goals: Pt will not fall at infusion center. Possible barriers to meeting goals: Ambulating with IV pole. Stability of the patient: Moderately stable - low risk of patient condition declining or worsening Summary regarding today's goals: Met: Pt did not fall at infusion center. Francesca Beckham RN documented in this encounter Plan of Treatment Upcoming Encounters Date Type Department Care Team (Late st Contact Info) Description 01/24/2024 9:00 AM EDT Laboratory Laboratory, [address] [phone] [facility], Lab [address] [place] [address] 01/24/2024 10:00 AM EDT Telemedicine Hematology/Oncology, [address] [address] Ortega Verde MD [address] [place] [address] Cart, Telemed [facility] Hem Onc Clinic [address] [place], [place] [address] [address] 01/24/2024 10:30 AM EDT Hem/Onc Treatment Hematology/Oncology Treatment, [address] [place] [address] [facility], Chair1 Hem Onc [address] [place], [place] [address] [address] 01/26/2024 9:00 AM EDT Office Visit Pharmacy, [facility] [address] [facility] [address] [place] [address] [facility] [address] [facility] [place] [address] 01/31/2024 9:00 AM EDT Imaging Radiology [facility] [address] [facility] [place] [address] 02/08/2024 12:30 PM EDT Office Visit Podiatry [address] [place] [address] Nayan Franklin[facility] [address] [place] [address] 02/09/2024 11:00 AM EDT Office Visit Palliative Medicine, [facility] [address] [facility] 5th Floor [place] [address] Nati Easley PA-C [address] [place] [address] 02/10/2024 11:40 AM EDT Office Visit [address], [place] [phone] Ivonne French PA-C [address] [facility] [place] [address] 03/14/2024 10:00 AM EDT Office Visit [place] [address] [address] [facility], [place] [address] Ivonne French PA-C [address] [facility] [place] [address] 04/18/2024 10:00 AM EDT Office Visit [facility] [address] [place] [facility] [place] [phone] Ivonne French PA-C [address] [place] [address] 05/10/2024 8:15 AM EDT Office Visit Ophthalmology, [place] [address] [place] [address] Migel Ramires MD [address] [place] [address] 05/16/2024 10:00 AM EDT Office Visit [facility] [address] [facility], [place] [address] Ivonne French PA-C [address] [place] [address] Scheduled Procedures Name Priority Associated Diagnoses Date/Ti [...] this encounter Medical Devices Implanted Type Area Foot And Ankle Surgeon Device Identifier Shelf Expiration Date Model / Serial / Lot Lens Intraoc 21.0 - [id number] - [id number] Implanted:Qty : 1 on 07/06/2017 by Luis Eduardo Cole MD at OR [facility] Left: Eye BAUSCH & LOMB 01/05/2022 [id number] / [id number] / Lens Intraoc 21.0 - [id number] - [id number] Implanted:Qty : 1 on 07/20/2017 by Luis Eduardo Cole MD at OR [facility] Right: Eye BAUSCH & LOMB 01/05/2022 [id number] / [id number] / Syringe Prolaryn Del 1.0cc - [id number] Implanted:Qty : 1 on 11/20/2019 by Amber Jain MD at OR [facility] Right: Mouth [employer] 10/21/2021 [id number] / / [id number] Implant Silastic 7 Silicone Sw - [id number] Implanted:Qty : 1 on 05/28/2020 by Farhat Pate MD at OR [facility] Right: Throat [employer] [id number] / / documented as of this encounter Visit Diagnoses Diagnosis 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sion (HCC)- Primary documented in this encounter Administered Medications Inactive Administered Medications - up to 3 most recent administrations Medication Order MAR Action Action Date Dose Rate Site Decitabine (Dacogen) 41.4 mg in NSS 100 mL infusion 41.4 mg (20 mg/m2 2.07 m2 Treatment Plan BSA from Recorded weight), IV Piggyback, ONCE, 1 dose, On Kaity 01/20/24 at 1315, Administer over 60 Minutes Start Infusion 01/20/2024 12:57 PM EDT 41.4 mg 100 mL/hr NSS infusion Intravenous, at 50 mL/hr, PRN, Starting on Kaity 01/20/24 at 1315, Until Kaity 01/20/24 at 1811, Maintenance line Start Infusion 01/20/2024 12:23 PM EDT 50 mL/hr documented in this encounter Advance Directives [...] the patient have Health Care Power of Rehab Therapist? No Code Status History Code Status Date [...] and were consensually agreed upon. Care Teams Injection Operator Relationship Specialty Start Date End Date Ivonne French PA-C [address] [place] [address] PCP - General Physician Acute Care Assistant 07/24/21 documented as of this encounter
--- OUTSIDE RECORDS SUMMARY | 2024-01-29 21:20 | External Medical Summary | Summary of Care ---
Author Name Unknown Organization [facility] Address [address] [place] [address] Phone [phone] Care Team Providers Care Ambulance Officer Name Role Phone Ivonne French PA-C Primary Care Provider [phone] Reason for Visit * Episode Based Medications (Routine) - Authorized Specialty Diagnoses / Procedures Referred By Contac t Referred To Contact Diagnoses 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sion (HCC) Procedures [place] DECITABINE INJECTION Nilton Senior MD [address] [place] [address] Anc Hem/Onc [place] [address] [place] [address] Referral ID Status Reason Start Date Expiration Date V isits Requested Visits Authorized [id number] Authorized 11/24/2023 11/07/2099 999 999 Encounter Details Date Type Department Care Team (Latest Contact Info) Description 01/21/2024 10:30 AM EDT Hem/Onc Treatment Hematology/Oncology Treatment, [address] [place] [address] [facility], Chair2 Hem Onc [address] [place] [address] 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sion [...] E11.9 1 Kit 0 05/25/2023 Active Pen [place] 32G X 4 MM Use as directed. [...] Hour (toPROL XL)Indications:Craig nary artery disease involving diomede coronary artery of diomede heart without angina pectoris Take 2 Tablets [...] Strip 5 12/28/2023 Active OneTouch Delica Plus Zappqs67Y Use as directed. Use when checking blood [...] Description 01/24/2024 9:00 AM EDT Laboratory Laboratory, [address] [phone] [facility], Lab [address] [place] [address] 01/24/2024 10:00 AM EDT Telemedicine Hematology/Oncology, [address] [address] Ortega Verde MD [address] [place], [place] [id number] Cart, Telemed [facility] Hem Onc Clinic [address] [place] [address] 01/24/2024 10:30 AM EDT Hem/Onc Treatment Hematology/Oncology Treatment, [address] [address] [facility], Chair1 Hem Onc [address] [place] [address] [place] [address] 01/26/2024 9:00 AM EDT Office Visit Pharmacy, [facility] 132 [facility] [place] [address] [facility] [address] [facility] [place] [address] 01/31/2024 9:00 AM EDT Imaging Radiology [facility] 1st Floor, [place] 132 Diana Arsh [facility] [place] [address] 02/08/2024 12:30 PM EDT Office Visit Podiatry [address] [place] [address] Nayan Franklin, M [address] [place] [address] 02/09/2024 11:00 AM EDT Office Visit Palliative Medicine, [facility] 400 [facility] 5th [place] [address] Nati Easley PA-C [address] [place] [address] 02/10/2024 11:40 AM EDT Office Visit [facility], [place] [address] [facility] [address] Ivonne French PA-C [address] [place] [address] 03/14/2024 10:00 AM EDT Office Visit [facility], [place] [address] [facility] [address] Ivonne French PA-C [address] [facility], [place] [address] 04/18/2024 10:00 AM EDT Office Visit [facility], [place] [address] [facility] [address] Ivonne French PA-C [address] [facility], [place] [address] 05/10/2024 8:15 AM EDT Office Visit Ophthalmology, [place] 21 [place] [address] Migel Ramires MD 21 [place] [address] 05/16/2024 10:00 AM EDT Office Visit [facility] [address] [place] [address] Ivonne French PA-C [address] [place] [address] Scheduled Procedures Name Priority Associated Diagnoses Date/Ti [...] this encounter Medical Devices Implanted Type Area Dust Mixer Device Identifier Shelf Expiration Date Model / Serial / Lot Lens Intraoc 21.0 - [id number] - [id number] Implanted:Qty : 1 on 07/06/2017 by Luis Eduardo Cole MD at OR [facility] Left: Eye BAUSCH & LOMB 01/05/2022 [id number] / [id number] / Lens Intraoc 21.0 - [id number] - [id number] Implanted:Qty : 1 on 07/20/2017 by Luis Eduardo Cole MD at OR [facility] Right: Eye BAUSCH & LOMB 01/05/2022 [id number] / [id number] / Syringe Prolaryn Del 1.0cc - [id number] Implanted:Qty : 1 on 11/20/2019 by Amber Jain MD at [place] [facility] [place] Right: Mouth [employer] 10/21/2021 [id number] / / [id number] Implant Silastic 7 Silicone Sw - [id number] Implanted:Qty : 1 on 05/28/2020 by Farhat Pate MD at OR [facility] [place] Right: Throat [employer] [id number] / / documented as of this [...] the patient have Health Care Power of Animal Science Instructor? No Code Status History Code Status Date [...] and were consensually agreed upon. Care Teams Ambulance Officer Relationship Specialty Start Date End Date Ivonne French PA-C [address] [place] [address] PCP - General Physician Commercial Banker 07/24/21 documented as of this encounter
--- OUTSIDE RECORDS SUMMARY | 2024-01-29 21:21 | External Medical Summary | Summary of Care ---
Author Name Unknown Organization [facility] Address [address] [place] [address] Phone [phone] Care Team Providers Care Cloth Dye Range Operator Name Role Phone Ivonne French PA-C Primary Care Provider [phone] Reason for Visit * Reason Onset Date Comments Med Request 01/20/2024 Encounter Details Date Type Department Care Team ([facility] st Contact Info) Description 01/20/2024 Telephone [facility] [address] [place] [address] Ivonne French PA-C [address] [place] [address] Med Request (/) Allergies Active [...] E11.9 1 Kit 0 05/25/2023 Active Pen [place] 32G X 4 MM Use as directed. [...] Hour (toPROL XL)Indications:Craig nary artery disease involving [place] coronary artery of [place] heart without angina pectoris [...] 200 Strip 12/28/2023 Active OneTouch Delica Plus Vumyzu38Q Use as directed. Use when checking blood [...] the morning. 31 Tablet 01/05/2024 Active Calcium Carb-Cholecalcifero l 600-20 MG-MCG [...] respiratory failure 12/13/2023 01/07/2024 Toe osteomyelitis, left 05/29/202102/2022 Ulcer of left great toe due to [...] money to buy more. Never true 12/30/19 Within the past 12 months, t he [...] encounter Miscellaneous Notes * Telephone Encounter - Fernanda Olson CPhT [...] the patient. Thank you, Fernanda Olson CPhT Supervisor [facility] ([facility])(formerly telepharmacy) 01/20/2024,4:24 PM documented in this encounter Plan of Treatment Upcoming Encounters Date Type Department Care Team (Late st Contact Info) Description 01/21/2024 11:45 AM EDT Hospital Encounter Radiology, [address] [address] Prep, [facility] [address] [place] [address] 01/24/2024 9:00 AM EDT Laboratory Laboratory, [address] [phone] [facility], Lab [address] [place] [address] 01/24/2024 10:00 AM EDT Telemedicine Hematology/Oncology, [address] [address] Ortega Verde MD [address] [place] [address] Cart, Telemed [facility] Hem Onc Clinic [address] [place] [address] 01/24/2024 10:30 AM EDT Hem/Onc Treatment Hematology/Oncology Treatment, [address] [address] [facility], Chair1 Hem Onc [address] [place], [place] [address] [address] 01/26/2024 9:00 AM EDT Office Visit Pharmacy, [facility] 132 [facility] [place] [address] [facility] 132 [facility] [place] [address] 01/31/2024 9:00 AM EDT Imaging Radiology [facility] 1st [facility] [address] [facility] [place] [address] 02/08/2024 12:30 PM EDT Office Visit Podiatry [address] [place] [address] Nayan Franklin, [facility] [address] [place] [address] 02/09/2024 11:00 AM EDT Office Visit Palliative Medicine, [address] 5th Floor [place] [address] Nati Easley PA-C [address] [facility] [address] 02/10/2024 11:40 AM EDT Office Visit [address] [place] [phone] Ivonne French PA-C [address] [place] [address] 03/14/2024 10:00 AM EDT Office Visit [facility], [place] [address] [facility], [place] [address] Ivonne French PA-C [address] [facility], [place] [address] 04/18/2024 10:00 AM EDT Office Visit [facility], [place] [address] [facility], [place] [address] Ivonne French PA-C [address] [facility], [place] [address] 05/10/2024 8:15 AM EDT Office Visit [facility], [place] [facility] [place] [address] Migel Ramires MD [address] [place] [address] 05/16/2024 10:00 AM EDT Office Visit [facility] [address] [facility], [place] [address] Ivonne French PA-C [address] [facility], [place] [phone] Scheduled Procedures Name Priority Associated Diagnoses Date/Ti [...] this encounter Medical Devices Implanted Type Area Corporate Safety Director Device Identifier Shelf Expiration Date Model / Serial / Lot Lens Intraoc 21.0 - [id number] - [id number] Implanted:Qty : 1 on 07/06/2017 by Luis Eduardo Cole MD at [facility] Left: Eye BAUSCH & LOMB 01/05/2022 [id number] / [id number] / Lens Intraoc 21.0 - [id number] - [id number] Implanted:Qty : 1 on 07/20/2017 by Luis Eduardo Cole MD at OR [facility] Right: Eye BAUSCH & LOMB 01/05/2022 [id number] / [id number] / Syringe Prolaryn Del 1.0cc - [id number] Implanted:Qty : 1 on 11/20/2019 by Amber Jain [place] [facility] [place]: Mouth [employer] 10/21/2021 [id number] / / [id number] Implant Silastic 7 Silicone Sw - [id number] Implanted:Qty : 1 on 05/28/2020 by Farhat Pate [place] [facility]: Throat [employer] [id number] / / documented as of this [...] the patient have Health Care Power of Clubhouse Attendant? No Code Status History Code Status Date [...] and were consensually agreed upon. Care Teams Cloth Dye Range Operator Relationship Specialty Start Date End Date Ivonne French PA-C [address] [place] [address] PCP - General Physician Skidder 07/24/21 documented as of this encounter
--- OUTSIDE RECORDS SUMMARY | 2024-01-29 21:21 | External Medical Summary | Summary of Care ---
Author Name Unknown Organization [facility] Address [address] [place] [address] Phone [phone] Care Team Providers Care Urban Designer Name Role Phone Ivonne French PA-C Primary Care Provider [phone] [phone] Reason for Visit * Reason Comments Chemotherapy C2D3 Dacogen * Episode Based Medications (Routine) - Authorized Specialty Diagnoses / Procedures Referred By Lupis t Referred To Contact Diagnoses 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sion (HCC) Procedures MO DECITABINE INJECTION Nilton Senior MD [address] [place] [address] Anc Hem/Onc [place] [address] [place] [address] Referral ID Status Reason Start Date Expiration Date V isits Requested Visits Authorized [id number] Authorized 11/24/2023 11/07/2099 999 [id number] Encounter Details Date Type Department Care Team (Latest Contact Info) Description 01/19/2024 11:30 AM EDT Hem/Onc Treatment Hematology/Oncology Treatment, [address] [place] [address] [facility], Chair11 Hem Onc [address] [place], [place] [address] [id number] 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sion (HCC)* Allergies Active Allergy Reactions Criticality Noted Date Comments Adhesive Tape 04/21/2016 Glue off the old style medical tape. documented as of this encounter (statuses as of 01/19/2024) Medications Medication Sig Dispensed Refills Start Date End Date Status Aspirin 81 MG Tablet Take 1 Tablet by mouth in the morning. 0 Active DULoxetine HCl 60 MG Oral Capsule Delayed Release Particles (Cymbalta) Take 1 Capsule by mouth in the morning. 180 Capsule 0 11/24/2022 Active SongHi EntertainmentTouch Delica Lancets 33G Use to test blood sugar three times daily E 11.9 300 Each 5 05/25/2023 Active SongHi EntertainmentTouch Verio w/Device Kit Use up to 3 times a day E11.9 1 Kit 0 05/25/2023 Active Pen Shellman 32G X 4 MM Use as directed. 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 Use when checking blood [...] as of this encounter (statuses as of 01/19/2024) Active Problems Problem Noted Date Diagnosed Date [...] as of this encounter (statuses as of 01/19/2024) Resolved Problems Problem Noted Date Diagnosed Date [...] as of this encounter (statuses as of 01/19/2024) Immunizations Name Administration Dates Next Due COVID-19 [...] Sign Reading Time Taken Comments Blood Pressure 113/48 01/19/2024 12:38 PM EDT Pulse 63 01/19/2024 12:38 PM EDT Temperature 36.7 C (98.1 F) 01/19/2024 1 2:38 PM EDT Respiratory Rate 20 01/19/2024 12:3 8 PM EDT Oxygen Saturation - - Inhaled Oxygen Concentration - - Weight 83.8 kg (184 lb 12.8 oz) 024 11:26 AM EDT Height - - Body Mass Index 28.1 01/12/2024 8:15 AM EST documented in this [...] Nursing Notes * Zahraa Drake, RN - 01/19/2024 1:05 PM EDT Patient left IVC by ambulating. Unaccompanied. Voiced no complaints. Zahraa Drake RN 01/19/2024 1:05 PM * Zahraa Drake RN - 01/19/2024 11:33 AM EDT Chair # 7 Chemo agents Dacogen Appetite -good Nausea/Vomiting -denies Diarrhea -denies Constipation -denies Mucositis -denies Fatigue -mild Bleeding -Denies Infection -denies Rash -denies Numbness tingling -denies Pain -denies Radiation N/A ABN Labs -all WNL Alt in Tx: -no Return in -1 day Chemotherapy/Immunotherapy agents: Dacogen Consent for chemotherapy drug treatment complete, dated, and signed? yes, date - 11/25/2023 Treatment lab parameters met? Yes Has treatment weight changed > than 10%? No Treatment preauthorized? Yes VITALS Filed Vitals: 01/19/24 1126 BP: 122/52 Pulse: 70 Resp: 20 Temp: 35.8 C (96.5 F) Weight: 83.8 kg (184 lb 12.8 oz) Urine protein: N/A Patient education completed for treatment? Yes Blood transfusion consent signed and complete? Yes 12/07/2023 Return appointment scheduled? Yes Patient had provider [...] symptoms or adverse side effects during treatment. [facility] Nursing Care Plan ID is not set. 01/19/2024 Safety and Risk for Injury Patient will remain free from injury. Assess patient's risk for falls per policy. Encourage activity as ordered per policy. Ensure appropriate safety devices are available. Implement fall prevention plan of care per policy. Include patient and caregiver in decisions related to safety. Perform safety rounds per policy. Provide and maintain safe environment. Zahraa Drake RN documented in this encounter Plan of Treatment Upcoming Encounters Date Type Department Care Team (Late st Contact Info) Description 01/20/2024 11:30 AM EDT Office Visit Hematology/Oncology, [facility] [address] [place] [address] Tasneem Bryant CRNP [facility] [place] [address] 01/20/2024 12:00 PM EDT Hem/Onc Treatment Hematology/Oncology Treatment, [address], [place] [address] [facility], Chair3 Hem Onc [address] [place] [address], [place] [address] 01/21/2024 9:30 AM EDT Laboratory Laboratory, [address] [place] [address] [facility], Lab [address] [place] [address] 01/21/2024 10:30 AM EDT Hem/Onc Treatment Hematology/Oncology Treatment, [address] [place] [address] [facility], Chair2 Hem Onc [address] [place] [address], [place] [address] 01/24/2024 9:00 AM EDT Laboratory Laboratory, [address] [place] [address] [facility], Lab [address] [place] [address] 01/24/2024 10:00 AM EDT Telemedicine Hematology/Oncology, [address] [place] [address] Ortega Verde MD [address] [place] [address] Alexandra Mcguireed [facility] Hem Onc Clinic [address] [place] [address], [place] [address] 01/24/2024 10:30 AM EDT Hem/Onc Treatment Hematology/Oncology Treatment, [facility] [address] [facility], Chair1 Hem Onc 400 [place] [address] 01/26/2024 9:00 AM EDT Office Visit Pharmacy, [facility] 132 [facility] [place] [address] [facility] 132 [facility] [place] [address] 01/31/2024 9:00 AM EDT Imaging Radiology [facility] 1st [facility] 132 [facility] [place] [address] 02/08/2024 12:30 PM EDT Office Visit Podiatry [address] [place] [address] Nayan [place], [place] [address] [place] [address] 02/09/2024 11:00 AM EDT Office Visit Palliative Medicine, [facility] 400 [facility] 5th [place] [address] Nati Easley PA-C [address] [place] [address] 02/10/2024 11:40 AM EDT [address] [phone] Ivonne French PA-C [address] [facility] [place] [address] 03/14/2024 10:00 AM EDT [address] [phone] Iovnne French PA-C [address] [place] [address] 04/18/2024 10:00 AM EDT Office Visit [place] [address] [place] [facility] [phone] Ivonne French PA-C [address] [place] [address] 05/10/2024 8:15 AM EDT Office Visit Ophthalmology, [place] [facility] [address] Migel Ramires MD 21 [facility] [place] [address] 05/16/2024 10:00 AM EDT Office Visit [place] [address] [place] [facility] [place] [phone] Ivonne French PA-C [address] [facility] [place] [phone] Scheduled Procedures Name Priority Associated Diagnoses Date/Ti [...] history exists Depression Screening 12/30/2024 12/30/2023 GFR 01/18/2025 01/19/2024, 01/06, 01/14/2024, Additional history exists PAP SMEAR-EVERY 3 YRS,AGES [...] this encounter Medical Devices Implanted Type Area Electric Crane Operator Device Identifier Shelf Expiration Date Model / Serial / Lot Lens Intraoc 21.0 - [id number] - [id number] Implanted:Qty : 1 on 07/06/2017 by Luis Eduardo Cole MD at OR [facility] Left: Eye BAUSCH & LOMB 01/05/2022 [id number] / [id number] / Lens Intraoc 21.0 - [id number] - [id number] Implanted:Qty : 1 on 07/20/2017 by Luis Eduardo Cole MD at OR [facility] Right: Eye BAUSCH & LOMB 01/05/2022 [id number] / [id number] / Syringe Prolaryn Del 1.0cc - [id number] Implanted:Qty : 1 on 11/20/2019 [place] J[place] [facility] [place] Mouth [employer] 10/21/2021 [id number] / / [id number] Implant Silastic 7 Silicone Sw - [id number] Implanted:Qty : 1 on 05/28/2020 by Farhat P[place] [facility] [place] Throat Storm Player [id number] / / documented as of this encounter Visit Diagnoses Diagnosis 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sion (HCC)- Primary documented in this encounter Administered Medications Active Administered Medications - up to 3 most recent administrations Medication Order MAR Action Action Date Dose Rate Site diphenhydrAMINE (Benadryl) inj 50 mg 50 mg, IV Push, ONCE PRN Other, Hypersensitivity Reaction, Starting on Wed01/19/24 at 1128, Until Wed01/20/24 at 1127, For 24 hours EPINEPHrine 1 MG/ML inj 0.3 mg 0.3 mg, Intramuscular, ONCE PRN Other, Hypersensitivity Reaction or Anaphylaxis, Starting on Wed01/19/24 at 1128, Until Wed01/20/24 at 1127, For 24 hours hEParin 100 UNIT/ML Lock Flush inj 500 Units 500 Units (5 mL), IV Lock, PRN Other, IV Flush, Starting on Wed01/19/24 at 1128, Until Wed01/20/24 at 1127, For 24 hours, Do not flush if lock, PICC, or central line not in place; IV infusing or unable to flush. Hydrocortisone Sod Suc (PF) (Solu-Cortef) inj 100 mg 100 mg, IV Push, ONCE PRN Other, Hypersensitivity Reaction, Starting on Wed01/19/24 at 1128, Until Kaity 01/20/24 at 1127, For 24 hours NSS infusion Intravenous, at 50 mL/hr, PRN, Starting on Wed01/19/24 at 1230, Until Discontinued, Maintenance line Start Infusion 01/19/2024 11:32 AM EDT 500 mL 50 mL/hr oxygen GAS Inhalation, OXYGEN, First dose on Wed01/19/24 at 1600, Until Discontinued, Device/Managed by: Low Flow Device, [...] Push, PRN Other, IV Flush, Starting on Wed01/19/24 at 1128, Until Kaity 01/20/24 at 1127, For 24 hours, Do not flush if [...] weight), IV Piggyback, ONCE, 1 dose, On Wed01/19/24 at 1230, Administer over 60 Minutes Start Infusion 01/19/2024 11:39 AM EDT 41.4 mg 100 mL/hr documented [...] the patient have Health Care Power of Industrial Manufacturing Technician? No Code Status History Code Status [...] and were consensually agreed upon. Care Teams Urban Designer Relationship Specialty Start Date End Date Ivonne French PA-C [address] [place] [address] PCP - General Physician Automobile Mechanic Supervisor 07/24/21 documented as of this encounter
--- OUTSIDE RECORDS SUMMARY | 2024-01-29 21:21 | External Medical Summary ---
Author Name Unknown Address Unknown Organization K1F:LABORATORY [facility] - [address] [place] [address] Laboratory Report Ordering Provider Test Date Status BRADLY BERMAN 01/21/2024 10:20:51 Final Observation Date Value Abnormality Reference (Units ) Status SYNC LEUKOCYTES IN BLOOD BY AUTOMATED COUNT 01/21/2024 10:20:51 0.84 Below lower panic limits 4.00-10.80 (K/uL) Final Neutrophils/100 leukocytes in Blood by Manual count 01/21/2024 10:20:51 11.0 Below low normal 40.0-75.0 (%) Final Lymphocytes/100 leukocytes in Blood by Manual count 01/21/2024 10:20:51 88.0 Above high normal 18.0-42.0 (%) Final Basophils/100 leukocytes in Blood by Manual count 01/21/2024 10:20:51 1.0 0.0-2.0 (%) Final Neutrophils [#/volume] in Blood by Manual count 01/21/2024 10:20:51 0.09 Below low normal 1.80-7.70 (K/uL) Final Lymphocytes [#/volume] in Blood by Manual count 01/21/2024 10:20:51 0.74 Below low normal 1.00-4.80 (K/uL) Final Basophils [#/volume] in Blood by Manual count 01/21/2024 10:20:51 0.01 0.00-0.20 (K/uL) Final Performing Location LAB[facility]ORY [facility] - [address] [place] [address]
--- OUTSIDE RECORDS SUMMARY | 2024-01-29 21:21 | External Medical Summary | Summary of Care ---
Author Name Unknown Organization [facility] Address [address] [place] [address] Phone [phone] Care Team Providers Care Tea Plantation Worker Name Role Phone Ivonne French PA-C Primary Care Provider [phone] Reason for Visit * Reason Comments Chemotherapy Dacogen * Episode Based Medications (Routine) - Authorized Specialty Diagnoses / Procedures Referred By Contsumanth t Referred To Contact Diagnoses 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sion (HCC) Procedures IN DECITABINE INJECTION Nilton Senior MD [address] [place] [address] Anc Hem/Onc [place] [address] [place] [address] Referral ID Status Reason Start Date Expiration Date V isits Requested Visits Authorized [id number] Authorized 11/24/2023 11/07/[phone] Encounter Details Date Type Department Care Team (Latest Contact Info) Description 01/18/2024 11:30 AM EDT Hem/Onc Treatment Hematology/Oncology Treatment, [address] [place] [address] [facility], Chair4 Hem Onc [address] [place] [address] [place] [address] 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sion [...] the morning. 180 Capsule 0 11/24/2022 Active DigitalSciroccoTouch Delica Lancets 33G Use to test blood sugar three times daily E 11.9 300 Each 05/25/2023 Active DigitalSciroccoTouch Verio w/Device Kit Use up to 3 times a day E11.9 1 Kit 0 05/25/2023 Active Pen [place] 32G X 4 MM Use as directed. 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 Use when checking blood [...] Sign Reading Time Taken Comments Blood Pressure 131/64 01/18/2024 11:19 AM EDT Pulse 68 01/18/2024 11:19 AM EDT Temperature 37.1 C (98.8 F) 01/18/2024 11:19 AM E DT Respiratory Rate 18 01/18/2024 11:19 AM EDT Oxygen Saturation - - Inhaled [...] Nursing Notes * Felicitas Ly RN - 01/18/2024 12:56 PM EDT Chemotherapy/Immunotherapy agents: Dacogen Consent for chemotherapy drug treatment complete, dated, and signed? yes, date - 11/25/23 Treatment lab parameters met? Yes Has treatment weight changed > than 10%? No Treatment preauthorized? Yes VITALS Filed Vitals: 01/18/24 1119 BP: 131/64 Pulse: 68 Resp: 18 Temp: 37.1 C (98.8 F) TempSrc: Tympanic Urine protein: N/A Patient [...] symptoms or adverse side effects during treatment. documented in this encounter Plan of Treatment Upcoming Encounters Date Type Department Care Team (Late st Contact Info) Description 01/20/2024 11:30 AM EDT Office Visit Hematology/Oncology, [address], [place] [address] Tasneem Bryant CRNP [address] [place] [address] 01/20/2024 12:00 PM EDT Hem/Onc Treatment Hematology/Oncology Treatment, [address] [address] [facility], Chair3 Hem Onc [address] [place] [address] [place] [address] 01/21/2024 9:30 AM EDT Laboratory Laboratory, [address], [place] [phone] [facility], Lab [address] [place] [address] 01/21/2024 10:30 AM EDT Hem/Onc Treatment Hematology/Oncology Treatment, [address] [address] [facility], Chair2 Hem Onc [address] [place], [place] [address] [address] 01/24/2024 9:00 AM EDT Laboratory Laboratory, [address] [phone] [facility], Lab [address] [place] [address] [place] [address] 01/24/2024 10:00 AM EDT Telemedicine Hematology/Oncology, [address] [address] Ortega Verde MD [address] [place] [address] Shayla, Telemed [facility] Hem Onc Clinic [address] [place] [address] 01/24/2024 10:30 AM EDT Hem/Onc Treatment Hematology/Oncology Treatment, [address] [address] [facility], Chair1 Hem Onc [address] [place] [address] 01/26/2024 9:00 AM EDT Office Visit Pharmacy, [facility] [address] [facility] [place] [address] 01/31/2024 9:00 AM EDT Imaging Radiology [facility] 1st [facility] 132 [facility] [place] [address] 02/08/2024 12:30 PM EDT Office Visit Podiatry [address] [place] [phone] Nayan [place], [place] [facility] [place] [address] 02/09/2024 11:00 AM EDT Office Visit Palliative Medicine, [address] 5th [place] [address] Nati Easley PA-C [address] [place] [address] [place] [address] 02/10/2024 11:40 AM EDT Office Visit [facility], [place] [address] [address] [facility], [place] [phone] Ivonne French PA-C [address] [facility], [place] [address] 03/14/2024 10:00 AM EDT Office Visit [facility], [place] [address] [facility], [place] [phone] Ivonne French PA-C [address] [facility], [place] [address] 04/18/2024 10:00 AM EDT Office Visit [facility], [place] [address] [address] [facility], [place] [address] Ivonne French PA-C [address] [facility], [place] [address] 05/10/2024 8:15 AM EDT [facility] [place] [address] Migel Ramires MD [address] [place] [address] 05/16/2024 10:00 AM EDT Office Visit [place] [address] [address] [facility], [place] [address] Ivonne French PA-C [address] [facility], [place] [phone] Scheduled Procedures Name Priority Associated Diagnoses Date/Ti [...] this encounter Medical Devices Implanted Type Area Import And Export Clerk Device Identifier Shelf Expiration Date Model / Serial / Lot Lens Intraoc 21.0 - [id number] - [id number] Implanted:Qty : 1 on 07/06/2017 by Luis Eduardo Cole MD at OR [facility] Left: Eye BAUSCH [employer] LOMB 01/05/2022 [id number] / [id number] / Lens Intraoc 21.0 - [id number] - [id number] Implanted:Qty : 1 on 07/20/2017 by Luis Eduardo Cole MD at OR [facility] Right: Eye BAUSCH [employer] LOMB 01/05/2022 [id number] / [id number] / Syringe Prolaryn Del 1.0cc - [id number] Implanted:Qty : 1 on 11/20/2019 [place] [facility] [place] Mouth [employer] 10/21/2021 [id number] / / [id number] Implant Silastic 7 Silicone Sw - [id number] Implanted:Qty : 1 on 05/28/2020 [place] Farhat P[place] [facility] [place] Throat weeSPIN [id number] / / documented as of this [...] weight), IV Piggyback, ONCE, 1 dose, On Wed01/18/24 at 1215, Administer over 60 Minutes Start Infusion 01/18/2024 11:40 AM EDT 41.4 mg 100 mL/hr NSS infusion Intravenous, at 50 mL/hr, PRN, Starting on Wed01/18/24 at 1215, Until Wed01/18/24 at 1659, Maintenance line Start Infusion 01/18/2024 11:23 AM EDT 50 mL/hr documented in this encounter [...] the patient have Health Care Power of Staff Nuclear Medicine Technologist? No Code Status History Code Status Date [...] and were consensually agreed upon. Care Teams Tea Plantation Worker Relationship Specialty Start Date End Date Ivonne French PA-C [address] [place] [address] PCP - General Physician Molder Punch 07/24/21 documented as of this encounter
--- OUTSIDE RECORDS SUMMARY | 2024-01-29 21:21 | External Medical Summary | Summary of Care ---
Author Name Unknown Organization [facility] Address [address] [place] [address] Phone [phone] Care Team Providers Care Department Supervisor Name Role Phone Ivonne French PA-C Primary Care Provider [phone] Reason for Referral * Precert (Within 24 hrs (call dept; emergent)) - Authorized Specialty Diagnoses / Procedures Referred By Contac t Referred To Contact Radiology Diagnoses Constipation, unspecified constipation type Procedures CT ABD/PELVIS W WO IV CONTRAST AND W ORAL CONT Tasneem Bryant CRNP [address] [place] [address] Referral ID Status Reason Start Date Expiration Date V isits Requested Visits Authorized [id number] Authorized 01/20/2024 999 999 Reason for Visit * Reason Comments Follow Up Encounter Details Date Type Department Care Team (Late st Contact Info) Description 01/20/2024 11:30 AM EDT Office Visit Hematology/Oncology , [facility] [address] [facility] [place] [address] Tasneem Bryant CRNP [address] [place] [address] 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sion (HCC)*; Encounter for antineoplastic chemotherapy; Encounter to discuss test results; Constipation, unspecified constipation type Allergies Active Allergy Reactions Criticality Noted Date Comments Adhesive Tape 04/21/2016 Glue off the old style medical tape. documented as of this encounter (statuses as of 01/20/2024) Medications Medication Sig Dispensed Refills Start Date End Date Status Aspirin 81 MG Tablet Take 1 Tablet by mouth in the morning. 0 Active DULoxetine HCl 60 MG Oral Capsule Delayed Release Particles (Cymbalta) Take 1 Capsule by mouth in the morning. 180 Capsule 0 11/24/2022 Active Allegory LawTouch Delica Lancets 33G Use to test blood sugar three times daily E 11.9 300 Each 05/25/2023 Active OneTouch Verio w/Device Kit Use up to 3 times a day E11.9 1 Kit 0 05/25/2023 Active Pen Butternut 32G X 4 MM Use as directed. [...] Hour (toPROL XL)Indications:Craig nary artery disease involving shoalwater coronary artery of shoalwater heart without angina pectoris Take 2 Tablets [...] Strip 5 12/28/2023 Active OneTouch Delica Plus [id number] Use as directed. Use when checking blood [...] as of this encounter (statuses as of 01/20/2024) Active Problems Problem Noted Date Diagnosed Date [...] 24 Varicose veins of both lower extremities 07/28/2 023 Gastroesophageal reflux disease 08/15/2021 Hyperlipidemia 08/15/2021 [...] as of this encounter (statuses as of 01/20/2024) Resolved Problems Problem Noted Date Diagnosed Date [...] as of this encounter (statuses as of 01/20/2024) Immunizations Name Administration Dates Next Due COVID-19 [...] Sign Reading Time Taken Comments Blood Pressure 151/69 01/20/2024 11:21 AM EDT Pulse 68 01/20/2024 11:21 AM EDT Temperature 36 C (96.8 F) 01/20/2024 11:21 AM EDT Respiratory Rate - - Oxygen Saturation 97% 01/20/2024 11:21 AM EDT Inhaled Oxygen Concentration - - Weight 84.9 kg (187 lb 1.6 oz) 01/20/2024 11:21 AM EDT Height - - Body Mass Index 28.45 01/12/2024 8:15 AM EST documented in this [...] as of this encounter Progress Notes * Tasneem Bryant CRNP - 01/20/2024 11:30 AM EDT Images from the original note were not included. Hematology/Oncology Outpatient Clinic note CAROL Ryan Hematology/Oncology, [address] [address] Name: Juany Resendez Date: 01/20/2024 CHIEF COMPLAINT: Juany Resendez is a 58 year old female patient of Dr. Ortega Verde here today for f/u visit today. From Patient chart confirmed with patient. From Dr. Ortega Verde note 01/17/2024. 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 Molecular: [...] - ) Supportive medications: Acyclovir, Posaconazole, Levaquin ppx, Allopurinol Treatment Summary 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sion (HCC) 11/24/2023 Initial Diagnosis 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sion (HCC) 11/25/2023 - Chemotherapy IP/OP Decitabine and Venetoclax with Inpatient ramp-up (AML) [id number] 01/03/2024 - Supportive Therapy SCP - PACKED RED BLOOD CELLS AND PLATELETS FOR ADULTS REQUIRING FREQUENT TRANSFUSIONS (3 TIMES A WEEK FOR 3 MONTHS) [id number] Plan Provider: Ortega Verde MD Treatment goal: Supportive Line of treatment: [No plan line of treatment] Acute myeloid leukemia (HCC) 01/07/2024 Initial Diagnosis Acute myeloid leukemia (HCC) 01/07/2024 - Supportive Therapy Blank Treatment Plan (Cycle 1/ Day 1) Plan Provider: CAROL Dorantes Treatment goal: Supportive Line of treatment: [No plan line of treatment] History of present illness (at time of my initial evaluation on 12/31/2023 ): Juany Resendez is a 58 year old female who presented to my office today, unaccompanied, to establish care with pet care assistant for her newly diagnosed AML. Patient is a , she lives alone. She lives about 1 hour away from [facility].Currently on disability. Her brother lives 10 minutes away from her. She had history of partial bigtoe amputation, and she started using cane recently. Patient was initially evaluated by Dr. Rice, then by Dr. Senior in [place], then admitted to the hospital, and coming now to [facility] follow-up with me as an outpatient. He had prolonged hospital stay, with the following hospital course 11/24/2023 - 12/28/2023 (34 days) : "ADMISSION HISTORY & PHYSICAL EXAM (focused): Ms. Resendez is a 58 y/o female who lives in [place] by herself. Her PMH includes DM2 on insulin with partial great toe amputation, HTN, dyslipidemia, multinodular goiter s/p total thyroidectomy with resulting postsurgical hypothyroidism, enchondroma femur, paralytic ptosis left eyelid, HTN/CAD s/p VA years ago, s/p ischemic stroke x 2 [...] for last 1 year. 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 her blood counts dropped as expected and [...] discharged her home with close follow-up at [facility]." Patient is still feel weak after hospital discharge. She is very confused about her disease, prognosis, and treatment options. ECOG: Performance Status 2 = 60-70% Bedtime, < 50% daytime Interval history: 01/17/2024 - Patient presented to my office today, unaccompanied, for follow-up of her AML, review results of her most recent bone marrow biopsy, discuss about treatment plan. Overall, she is doing well. She has been off AML treatment. She feels better with Lasix 40 mg p.o. q.day. she denied shortness of breath, or chest pain. Her case was reviewed today in Hematology tumor board. HISTORY OF PRESENT ILLNESS: Juany Resendez is a 58 year old female with a history as outlined above. Currently here for f/u visit today. Has been in contact with pharmacy for her diabetic medications and elevated blood sugars. Her appetite is on and off since she started treatment and her intake has not been consistent. Endorses some mild fatigue that does not get in the way of her daily activities. Previously had a mouth ulcer that has resolved using Magic Swizzle at home. Her main concern today is severe constipation that has been worsening over the past two weeks, accompanied by 9/10 abdominal pain today and discomfort both while sitting and lying down. Her PO intakehas decreased due to the pain, drinking adequate fluids, about 4 12-20 ounce water bottle daily. She has been taking Senna-S BID, Miralax BID, and OTC stool softener TID. Explains that she has tried manual disimpaction without much success, sometimes a small amount of liquid stool comes out. She states she has not had what she would consider a BM in about 2 weeks now. She is passing gas 1-2 timesper day. Denies fever, chills, night sweats, headaches, dizziness/lightheadedness, weakness, vision changes,arthralgias, neuropathies, mouth sores, SOB, SARMIENTO, chest tightness, palpitations, nausea, vomiting, dysuria, hematuria, melena, or hematochezia. Past Medical History: Diagnosis Date Diabetic neuropathy (HCC) DM type 2, not at goal (HCC) Enchondroma of femur left Family history of carrier of genetic disease Hyperlipidemia on Crestor Hypertension Mild nonproliferative diabetic retinopathy of both eyes without macular edema ([facility]) Non-toxic multinodular goiter 12/09/[address] [...] DIAGNOSTIC (RECTUM) 12/16/2016 adenomatous polyps, repeat 5 yrs/[facility] COLONOSCOPY, DIAGNOSTIC (RECTUM) 06/03/2022 diverticulosis, fair prep, repeat 5 yrs / [facility] EGD, FLEXIBLE, DIAGNOSTIC 12/16/2016 normal bx/[facility] EGD, FLEXIBLE, W/BIOPSY 07/30/2010 esophagitis, await BX LARYNGOPLASTY MEDIALIZATION UNILATERAL Right 05/28/2020 LARYNGOPLASTY, MEDIALIZATION UNILATERAL performed [place] Farhat Pate [place] [facility] [place]ARY[place]OS[place], VOCAL CORD INJECTION Right 11/20/2019 LARYNGOSCOPY DIRECT INJECTION VOCAL CORD WITH MICROSCOPE performed by Amber Jain MD [place] [facility] MISCELLANEOUS ORDER ([facility] ONLY) Bilateral 11/24/2017 Reinheimer-bleph/levators-ou OTHER (3 times) 8 inch benign tumor removed from L femur; regrew x 3 OTHER Removal of a benign LN from L axilla REMOVAL OF THYROID GLAND 10/23/2009 total thyroidectomy 10/23/09, [facility], Dr. Vazquez REMOVE CATARACT, INSERT LENS PROSTH Right 07/20/2017 right EXTRACAPSULAR CATARACT REMOVAL WITH INTRAOCULAR LENS performed by Luis Eduardo Cole MD at OR [facility] REMOVE CATARACT, INSERT LENS PROSTH Left 07/06/2017 left EXTRACAPSULAR CATARACT REMOVAL WITH INTRAOCULAR LENS performed by Luis Eduardo Cole MD at OR [facility] REMOVE GALLBLADDER 2005 appox date Social History Socioeconomic History Marital [...] a day E11.9 1 Kit 0 Pen Butternut 32G X 4 MM Use as directed. [...] day 200 Strip 5 OneTouch Delica Plus [id number] Use as directed. Use when checking blood [...] 10 units 21 mL 3 Magic Swizzle (Buwsopypr-Jjjlmreo-Urgwma) oral solution Swish and spit 15 mL [...] 2 Tablets before bedtime. 60 Tablet 1 No current facility-administered medications for this visit. REVIEW OF SYSTEMS: See HPI - otherwise negative OBJECTIVE: Filed Vitals: 01/20/24 1121 BP: 151/69 Pulse: 68 Temp: 36 C (96.8 F) TempSrc: Tympanic SpO2: 97% Weight: 84.9 kg (187 lb 1.6 oz) Wt Readings from Last 5 Encounters: 01/20/24 84.9 kg (187 lb 1.6 oz) 01/19/24 83.8 kg (184 lb 12.8 oz) 01/17/24 85.2 kg (187 lb 13.3 oz) 01/17/24 85.2 kg (187 lb 14.4 oz) 01/12/24 86 kg (189 lb 8 oz) PHYSICAL EXAM: ECOG: Performance Status 1 = 80-90% Symptoms but nearly ambulatory General Appearance: Normal - Healthy appearing patient in no acute distress HEENT: Normal - No oral or pharyngeal masses, ulceration or thrush noted, no sinus tenderness Lymph Nodes: Normal - No palpable lymph nodes in the neck or supraclavicular areas Lungs/Thorax: Normal - Clear to auscultation Heart: Normal - Regular rate and rhythm, normal S1, S2, no appreciable murmurs, rubs, gallops Pulses/Extremities: +1 bilateral lower extremity ankle edema. Normal - 2+ throughout and symmetrical. Abdomen: Abdomen distended with distant, hypoactive bowel sounds. No appreciable hepatosplenomegaly, no palpable masses. LABS: Results for orders placed or performed in visit on 01/19/24 COMPREHENSIVE METABOLIC PANEL Result Value Ref Range BUN 17 6 - 20 mg/dL Creatinine 0.9 0.5 - 1.0 mg/dL Estimated Glomerular Filtration Rate 75 >=60 mL/min Sodium 136 135 - 146 mmol/L Potassium 4.0 3.5 - 5.1 mmol/L Chloride 97 (L) 98 - 107 mmol/L CO2 29 22 - 32 mmol/L Anion Gap 10 7 - 15 mmol/L Glucose 333 (H) 70 - 120 mg/dL Albumin 3.9 3.8 - 5.0 g/dL AST 44 (H) 10 - 35 U/L Alkaline Phosphatase 141 (H) 35 - 130 U/L Bilirubin, Total 0.5 <=1.2 mg/dL Calcium 8.7 8.4 - 10.2 mg/dL Protein 7.5 6.0 - 8.3 g/dL ALT 46 (H) 10 - 35 U/L LD Result Value Ref Range LD 223 <=250 U/L URIC ACID Result Value Ref Range Uric Acid 2.4 2.4 - 5.7 mg/dL CBC Result Value Ref Range WBC 0.88 (LL) 4.00 - 10.80 K/uL RBC 2.79 3.85 - 5.15 M/uL HGB 8.3 (L) 12.0 - 15.3 g/dL HCT 24.2 (L) 36.0 - 45.2 % MCV 86.7 81.5 - 97.5 fL MCH 29.7 27.0 - 34.0 pg MCHC 34.3 32.0 - 36.0 g/dL RDW 13.7 11.5 - 15.5 % PLT 119 (L) 140 - 400 K/uL MPV 9.6 6.6 - 11.1 fL nRBCs 0 <=0 /100 WBCs DIFFERENTIAL, TECHNOLOGIST REVIEW Result Value Ref Range WBC 0.88 (LL) 4.00 - 10.80 K/uL Neutrophils % 8.0 (L) 40.0 - 75.0 % Lymphocytes % 91.0 (H) 18.0 - 42.0 % Monocytes % 1.0 1.0 - 11.0 % Absolute Neutrophils 0.07 (L) 1.80 - 7.70 K/uL Absolute Lymphocytes 0.80 (L) 1.00 - 4.80 K/uL Absolute Monocytes 0.01 0.00 - 1.10 K/uL *Note: Due to a large number of results and/or encounters for the requested time period, some results have not been displayed. A complete set of results can be found in Results Review. IMAGING: XR CHEST 1 VIEW Result Date: 12/20/2023 IMPRESSION 1. Pulmonary edema, significantly improved 2. Hypoventilatory exam with bibasilar atelectasis CT CHEST WO CONTRAST Result Date: 12/16/2023 IMPRESSION: Moderate bilateral diffuse ground-glass opacities and bilateral pleural effusions likely due to volume overload given cardiomegaly and dilation of pulmonary trunk. Atypical pneumonia/pneumonitis, ARDS are possibilities. Follow-up to resolution. Added to radiology results pathway communication system at 6:24 pm on 12/16/2023. I have personally reviewed this examination and agree with theresident/fellow physician's interpretation. XR CHEST 1 VIEW Result Date: 12/14/2023 IMPRESSION: Increased diffuse bilateral consolidations may represent multi lobar pneumonia and/or CHF. XR CHEST 1 VIEW Result Date: 12/10/2023 IMPRESSION 1. Underinflated chest. 2. Mild bibasilar airspace disease correlating with that seen onrecent CT. CT CHEST WO CONTRAST Result Date: 12/08/2023 IMPRESSION 1. Patchy ground-glass opacities within the posterior aspect of the left upper lobe and to a lesser extent the left lower lobe which may be infectious/inflammatory in etiology. 2. Trace bilateral pleural effusions with adjacent consolidations and volume loss. Findings favor atelectasis. However superimposed infection cannot be excluded. This exam was submitted to the radiology regulatory compliance officer worklist and the ordering provider will be notified that the final report is available in EPIC. XR CHEST 1 VIEW Result Date: 12/08/2023 IMPRESSION 1. Recommend contrast-enhanced chest CT or CT PE, as above. MRI FOOT LEFT W WO CONTRAST Result Date: 10/01/2023 IMPRESSION No evidence of osteomyelitis or abscess. IMPRESSION/PLAN: AML not having achieved remission Constipation Encounter for antineoplastic chemotherapy Encounter to discuss test results Reviewed results of CBC/diff, CMP, LDH, and Uric acid with the patient today Hgb 8.3 and PLT 119, no PRBC or PLT transfusion today Okay for Decitabine today Decitabine IV planned Q daily this week Repeat CBC/Diff, Type and screen QOD with Hb GOAL of 8 Repeat CMP, LDH and uric acid weekly IR referral for BMB in 4 weeks Continue aspirin, with close monitoring of any bleeding Continue Senokot-S, MiraLax for constipation Following with Palliative Medicine Continue all supportive medications as recommended Acyclovir, Posaconazole, Allopurinol and Levaquin Conitnue Lasix to 40 mg p.o. daily, and add extra Lasix 20 mg with every unit of packed RBCs transfusion No extra Lasix today Calcium is normal now. PTH is normal. Magic swizzle for mucositis is helping, continue the same for now Ordered STAT CT of abdomen and pelvis to evaluate for bowel obstruction Patient felt comfortable getting chemotherapy today and imaging is scheduled for immediately after she is done If no obstruction is present, patient prefers suppository over enema Discussed with the patient that if pain and discomfort become worse while not having a successful BM and/or she begins to experience nausea or vomiting - she should present to the ER RTC as scheduled with Dr. Ortega Verde, with CBC/diff, CMP, LDH and Uric acid CAROL Ryan documented in this encounter Nursing Notes * Ursula Camacho, MORRIS AVILEZ - 01/20/2024 11:23 AM EDT Chief Complaint Patient presents with Follow Up Provider aware of VS. BP 151/69 | Pulse 68 | Temp 36 C (96.8 F) (Tympanic) | Wt 84.9 kg (187 lb 1.6 oz) | LMP 09/08/2016 | SpO2 97% | BMI 28.45 kg/m | BSA 2.02 m Patient was instructed to not get [...] Team (Late st Contact Info) Description 01/20/2024 3:45 PM EDT Hospital En[address]iology, [address] [address] [address], [facility] [address] [place], [place] [address] [address] 01/21/2024 9:30 AM EDT Laboratory Laboratory, [address] [id number] [facility], Lab [address] [place], [place] [address] [address] 01/21/2024 10:30 AM EDT Hem/Onc Treatment Hematology/Oncology [address], [address] [address] [facility], Chair2 Hem Onc [address] [place], [place] [address] [address] 01/24/2024 9:00 AM EDT Laboratory Laboratory, [address] [address] [facility], Lab [address] [place], [place] [address] [address] 01/24/2024 10:00 AM EDT Telemedicine [facility], [facility] [address] [address] Ortega Verde MD [address] [place] [address] Alexandra Mcguireed [facility] Hem Onc Clinic [address] [place] [address] 01/24/2024 10:30 AM EDT Hem/Onc Treatment Hematology/Oncology Treatment, [address] [place] [address] [facility], Chair1 Hem Onc [address] [place] [address] 01/26/2024 9:00 AM EDT Office Visit Pharmacy, [address] [place] [address] [place] [address] 01/31/2024 9:00 AM EDT Imaging Radiology [facility] [address]st [facility] [address] [facility] [place] [address] 02/08/2024 12:30 PM EDT Office Visit Podiatry [address] [place] [id number] Nayan Franklin, [place] [id number] [place] [address] 02/09/2024 11:00 AM EDT Office Visit Palliative Medicine, [address] [place] [address] Nati Easley PA-C [address] [place] [address] 02/10/2024 11:40 AM EDT [facility] [address] [place] [facility] [place] [address] Ivonne French PA-C [address] [place] [facility] [place] [address] 03/14/2024 10:00 AM EDT Office Visit [facility], [place] [address] [place] [facility] [place] [address] Ivonne French PA-C [address] [place] [facility] [place] [address] 04/18/2024 10:00 AM EDT Office Visit [facility], [place] [address] [facility] [place] [address] Ivonne French PA-C [address] [facility], [place] [address] 05/10/2024 8:15 AM EDT Office Visit Ophthalmology, [place] [address] [facility] [place] [address] Migel Ramires MD [address] [facility] [place] [address] 05/16/2024 10:00 AM EDT Office Visit [facility], [place] [address] [address] [facility], [place] [address] Ivonne French PA-C [address] [facility], [place] [id number] Scheduled Orders Name Type Priority Associated Diagnoses Orde r Schedule CT ABD/PELVIS W WO IV CONTRAST AND W ORAL CONT Medical Imaging STAT Constipation, unspecified constipation type Expected: 01/20/2024, Expires: 02/19/2025 Scheduled Procedures Name Priority Associated Diagnoses Date/Ti [...] this encounter Medical Devices Implanted Type Area Underground Utility Locator Device Identifier Shelf Expiration Date Model / Serial / Lot Lens Intraoc 21.0 - [id number] - [id number] Implanted:Qty : 1 on 07/06/2017 by Luis Eduardo Cole MD at OR [facility] Left: Eye [employer] 01/05/2022 [id number] / [id number] / Lens Intraoc 21.0 - [id number] - [id number] Implanted:Qty : 1 on 07/20/2017 by Luis Eduardo Cole MD at OR [facility] Right: Eye [employer] 01/05/2022 [id number] / [id number] / Syringe Prolaryn Del 1.0cc - [id number] Implanted:Qty : 1 on 11/20/2019 [place] Amber Jain [place] [facility] Right: Mouth [employer] 10/21/2021 [id number] / / [id number] Implant Silastic 7 Silicone Sw - [id number] Implanted:Qty : 1 on 05/28/2020 by Farhat Pate MD [place] [facility] Right: Throat Socrative [id number] / / documented as of this encounter Visit Diagnoses Diagnosis 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sion (HCC)- Primary Encounter for antineoplastic chemotherapy Encounter to discuss test results Other specified counseling Constipation, unspecified constipation type documented in this encounter Advance Directives Latest Code Status on File Code Status Date Activated Date Inactivated Comments No Code 11/24/2023 7:24 PM 12/28/2023 9:25 PM This order reflects the patients wishes and were consensually agreed upon. Question Answer Comments Discussion of Advance Directives occurred with: Patient Does the patient have a Living Will? No Does the patient have Health Care Power of [place]? No Code Status History Code Status Date [...] and were consensually agreed upon. Care Teams Department Supervisor Relationship Specialty Start Date End Date Ivonne French PA-C [address] [facility] [place] [address] PCP - General Physician Assembler [employer] 07/24/21 documented as of this encounter
--- OUTSIDE RECORDS SUMMARY | 2024-01-29 21:21 | External Medical Summary | Summary of Care ---
Author Name Unknown Organization [facility] Address [address] [place] [address] Phone [phone] Care Team Providers Care Plating Department Helper Name Role Phone Ivonne French PA-C Primary Care Provider [phone] Reason for Visit * Reason Comments Outpatient Testing Encounter Details Date Type Department Care Team (Late st Contact Info) Description 01/19/2024 10:30 AM EDT Laboratory Laboratory, [facility] [address] [place] [phone] [facility], Lab [address] [place], [place] [id number] 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sion [...] E11.9 1 Kit 0 05/25/2023 Active Pen [place] 32G X 4 MM Use as directed. 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 Use when checking blood [...] Care Team (Late st Contact Info) Description 01/19/2024 11:30 AM EDT Hem/Onc Treatment Hematology/[address] Treatment, [address] [address] [facility], Chair11 Hem Onc [address] [place] [address] [place] [address] Arrived 01/20/2024 11:30 AM EDT Office Visit Hematology/Oncology, [address] [address] Tasneem Bryant CRNP [address] [place] [address] [place] [address] 01/20/2024 12:00 PM EDT Hem/Onc Treatment Hematology/Oncology Treatment, [address] [address] [facility], Chair3 Hem Onc [address] [place], [place] [address] [address] 01/21/2024 9:30 AM EDT Laboratory Laboratory, [address] [address] [facility], Lab [address] [place] [address], [place] [address] 01/21/2024 10:30 AM EDT Hem/Onc Treatment Hematology/Oncology Treatment, [address] [address] [facility], Chair2 Hem Onc [address] [place], [place] [address] [address] 01/24/2024 9:00 AM EDT Laboratory Laboratory, [address] [address] [facility], Lab [address] [place] [address] 01/24/2024 10:00 AM EDT Telemedicine Hematology/Oncology, [address] [address] Ortega Verde MD [address] [place] [address] Shayla, Telemed [facility] Hem Onc Clinic [address] [place] [address] 01/24/2024 10:30 AM EDT Hem/Onc Treatment Hematology/Oncology Treatment, [address] [address] [facility], Chair1 Hem Onc [address] [place] [address] 01/26/2024 9:00 AM EDT Office Visit Pharmacy, [facility] [address] [facility] [place] [address] [facility] [address] [facility] [place] [address] 01/31/2024 9:00 AM EDT Imaging Radiology [address] [facility] [place] [address] 02/08/2024 12:30 PM EDT Office Visit Podiatry [address] [place] [address] Nayan Franklin, EVANGELINA [address] [place] [address] 02/09/2024 11:00 AM EDT Office Visit Palliative Medicine, [facility] [address] [facility] 5th Floor [place] [address] Nati Easley PA-C [address] [place] [address] 02/10/2024 11:40 AM EDT Office Visit [facility], [place] [address] [facility], [place] [address] Ivonne French PA-C [address] [place], [place] [address] 03/14/2024 10:00 AM EDT Office Visit [facility] [place] [address] [place], [place] [address] Ivonne French PA-C [address] [facility], [place] [address] 04/18/2024 10:00 AM EDT Office Visit [facility] [place] [address] [facility] [place] [address] Ivonne French PA-C [address] [place] [address] 05/10/2024 8:15 AM EDT Office Visit Ophthalmology, [place] [address] [facility] [place] [address] Migel Ramires MD 21 [facility] [place] [address] 05/16/2024 10:00 AM EDT Office Visit [facility], [place] [address] [place], [place] [address] Ivonne French PA-C [address] [facility] [place] [address] Pending Results Name Type Priority Associated Diagnoses Date /Time CBC WITH WBC DIFFERENTIAL Lab STAT 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sion (HCC) 01/19/2024 10:25 AM EDT COMPREHENSIVE METABOLIC PANEL Lab STAT 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sion (HCC) 01/19/2024 10:25 AM EDT TYPE AND SCREEN Lab STAT 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sion (HCC) 01/19/2024 10:25 AM EDT LD Lab STAT 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sion (HCC) 01/19/2024 10:25 AM EDT URIC ACID Lab STAT 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sion (HCC) 01/19/2024 10:25 AM EDT DIFFERENTIAL, AUTOMATED Lab STAT 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sion (HCC) 01/19/2024 10:25 AM EDT Scheduled Procedures Name Priority Associated [...] history exists Depression Screening 12/30/2024 12/30/2023 GFR 01/16/2025 01/17/2024, 06/2024, 01/12/2024, Additional history exists PAP SMEAR-EVERY 3 YRS,AGES [...] this encounter Medical Devices Implanted Type Area Filter Tank Tender Helper Device Identifier Shelf Expiration Date Model / Serial / Lot Lens Intraoc 21.0 - [id number] - [id number] Implanted:Qty : 1 on 07/06/2017 by Luis Eduardo Cole MD at OR [facility] Left: Eye BAUSCH & LOMB 01/05/2022 [id number] / [id number] / Lens Intraoc 21.0 - [id number] - [id number] Implanted:Qty : 1 on 07/20/2017 by Luis Eduardo Cole MD at OR [facility] Right: Eye BAUSCH & LOMB 01/05/2022 [id number] / [id number] / Syringe Prolaryn Del 1.0cc - [id number] Implanted:Qty : 1 on 11/20/2019 by Amber Jain MD at OR [facility] Right: Mouth [employer] 10/21/2021 [id number] / / [id number] Implant Silastic 7 Silicone Sw - [id number] Implanted:Qty : 1 on 05/28/2020 by Farhat Pate MD at OR [facility] Right: Throat [employer] [id number] / / documented as of this encounter Procedures Procedure Name Priority Date/Time Associated Diagnosis Comments CBC STAT 01/19/2024 10:25 AM EDT 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sion (HCC) documented in this encounter Results * (ABNORMAL) CBC (01/19/2024 10:25 AM EDT) WBC 0.88(LL) 4.00 - 10.80 K/uL 01/19/2024 10:31 AM EDT LABORATORY [facility] RBC 2.79 3.85 - 5.15 M/uL 01/19/2024 10:31 AM EDT LABORATORY [facility] HGB 8.3(L) 12.0 - 15.3 g/dL 01/19/2024 10:31 AM EDT LABORATORY [facility] HCT 24.2(L) 36.0 - 45.2 % 01/19/2024 10:31 AM EDT LABORATORY [facility] MCV 86.7 81.5 - 97.5 fL 01/19/2024 10:31 AM EDT LAB[facility]ATORY [facility] MCH 29.7 27.0 - 34.0 pg 01/19/2024 10:31 AM EDT LABORATORY [facility] MCHC 34.3 32.0 - 36.0 g/dL 01/19/2024 10:31 AM EDT LAB[facility]ATORY [facility] RDW 13.7 11.5 - 15.5 % 01/19/2024 10:31 AM EDT LABORATORY [facility] PLT 119(L) 140 - 400 K/uL 01/19/2024 10:31 AM EDT LABORATORY [facility] MPV 9.6 6.6 - 11.1 fL 01/19/2024 10:31 AM EDT LABORATORY [facility] nRBCs 0 <=0 /100 WBCs 01/19/2024 10:31 AM EDT LABORATORY [facility] Blood Venous blood specimen / Unknown Venipuncture / Unknown 01/19/2024 10:25 AM EDT 01/19/2024 10:25 AM EDT Ortega Verde MD LAB BLOOD O RDERABLES [facility] [address] [facility] [place] [address] documented in this encounter Visit [...] the patient have Health Care Power of Geoscientist? No Code Status History Code Status Date [...] and were consensually agreed upon. Care Teams Plating Department Helper Relationship Specialty Start Date End Date Ivonne French PA-C [address] [facility] [place] [address] PCP - General Physician Loom Changeover Operator 07/24/21 documented as of this encounter
--- OUTSIDE RECORDS SUMMARY | 2024-01-29 21:21 | External Medical Summary | Summary of Care ---
Author Name Unknown Organization [facility] Address [address] [place] [address] Phone [phone] Care Team Providers Care Bottom Cager Name Role Phone Ivonne French PA-C Primary Care Provider [phone] Reason for Visit * Reason Comments Outpatient Testing Encounter Details Date Type Department Care Team (Late st Contact Info) Description 01/21/2024 9:30 AM EDT Laboratory Laboratory, [facility] [address] [place] [phone] [facility], Lab [address] [place], [place] [phone] 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sion [...] E11.9 1 Kit 0 05/25/2023 Active Pen [place] 32G X 4 MM Use as directed. 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 Use when checking blood [...] 01/21/2024 11:45 AM EDT Hospital Encounter Radiology, [address] [address] Prep, [facility] [address] [place] [address] 01/24/2024 9:00 AM EDT Laboratory Laboratory, [address] [phone] [facility], Lab [address] [place] [address] 01/24/2024 10:00 AM EDT Telemedicine Hematology/Oncology, [address] [address] Ortega Verde MD [address] [place] [address] Shayla, Telemed [facility] Hem Onc Clinic [address] [place] [address] 01/24/2024 10:30 AM EDT Hem/Onc Treatment Hematology/Oncology Treatment, [address] [address] [facility], Chair1 Hem Onc [address] [place] [address] 01/26/2024 9:00 AM EDT Office Visit Pharmacy, [facility] [address] [place] [address] [place], [facility] [address] [place] [address] 01/31/2024 9:00 AM EDT Imaging Radiology [facility] 1st Floor, [place] [address] [facility] [place] [address] 02/08/2024 12:30 PM EDT Office Visit Podiatry [address] [place] [phone] Nayan Franklin, [facility] [address] [place] [address] 02/09/2024 11:00 AM EDT Office Visit Palliative Medicine, [facility] 400 [facility] 5th Floor [facility] [place] [address] Nati Easley PA-C [address] [place] [address] 02/10/2024 11:40 AM EDT Office Visit [facility], [place] [address] [address] [facility], [place] [address] Ivonne French PA-C [address] [facility], [place] [address] 03/14/2024 10:00 AM EDT Office Visit [facility], [place] [address] [address] [facility], [place] [address] Ivonne French PA-C [address] [facility], [place] [address] 04/18/2024 10:00 AM EDT Office Visit [facility], [place] [address] [address] [facility], [place] [address] Ivonne French PA-C [address] [facility], [place] [address] 05/10/2024 8:15 AM EDT Office Visit Ophthalmology[address] [place] [address] Migel Ramires MD 21 [place] [address] 05/16/2024 10:00 AM EDT Office Visit [facility] [address] [place] [address] Ivonne French PA-C [address] [place], [place] [phone] Pending Results Name Type Priority Associated Diagnoses Date /Time CBC WITH WBC DIFFERENTIAL Lab STAT 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sion (HCC) 01/21/2024 10:20 AM EDT COMPREHENSIVE METABOLIC PANEL Lab STAT 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sion (HCC) 01/21/2024 10:20 AM EDT TYPE AND SCREEN Lab STAT 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sion (HCC) 01/21/2024 10:20 AM EDT CBC Lab STAT 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sion (HCC) 01/21/2024 10:20 AM EDT DIFFERENTIAL, AUTOMATED Lab STAT 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sion (HCC) 01/21/2024 10:20 AM EDT Scheduled Procedures Name Priority Associated [...] this encounter Medical Devices Implanted Type Area Dragline Mechanic Device Identifier Shelf Expiration Date Model / Serial / Lot Lens Intraoc 21.0 - [id number] - [id number] Implanted:Qty : 1 on 07/06/2017 by Luis Eduardo Cole MD at OR [facility] Left: Eye BAUSCH & LOMB 01/05/2022 [id number] / [id number] / Lens Intraoc 21.0 - [id number] - [id number] Implanted:Qty : 1 on 07/20/2017 by Luis Eduardo Cole MD at OR [facility] Right: Eye BAUSCH & LOMB 01/05/2022 [id number] / [id number] / Syringe Prolaryn Del 1.0cc - [id number] Implanted:Qty : 1 on 11/20/2019 by Amber Jain MD at OR [facility] Right: Mouth [employer] 10/21/2021 [id number] / / [id number] Implant Silastic 7 Silicone Sw - [id number] Implanted:Qty : 1 on 05/28/2020 by Farhat Pate MD at OR [facility] Right: Throat [employer] [id number] / / documented as of this [...] the patient have Health Care Power of Adzing And Boring Machine Feeder? No Code Status History Code Status Date [...] and were consensually agreed upon. Care Teams Bottom Cager Relationship Specialty Start Date End Date Ivonne French PA-C [address] [place] [address] PCP - General Physician Hand Welt Butter 07/24/21 documented as of this encounter
--- OUTSIDE RECORDS SUMMARY | 2024-01-29 21:21 | External Medical Summary | Summary of Care ---
Author Name Unknown Organization [facility] Address [address] [place] [address] Phone [phone] Care Team Providers Care Mottle Lay Up Operator Name Role Phone Ivonne French PA-C Primary Care Provider [phone] Reason for Visit * Reason Onset Date Comments Med Request 01/20/2024 Encounter Details Date Type Department Care Team ([facility] st Contact Info) Description 01/20/2024 Telephone [facility] [address] [place] [address] Ivonne French PA-C [address] [place] [address] Med Request (/) Allergies Active [...] E11.9 1 Kit 0 05/25/2023 Active Pen [place] 32G X 4 MM Use as directed. [...] Hour (toPROL XL)Indications:Craig nary artery disease involving nikolski coronary artery of nikolski heart without angina pectoris Take 2 Tablets [...] 200 Strip 12/28/2023 Active OneTouch Delica Plus [id number] Use as directed. Use when checking blood [...] the patient. Thank you, Fernanda Olson CPhT [facility] ([facility]formerly telepharmacy) 01/20/2024,4:24 PM documented in this encounter Plan of Treatment Upcoming Encounters Date Type Department Care Team (Late st Contact Info) Description 01/21/2024 9:30 AM EDT Laboratory Laboratory, [address] [address] [facility], Lab [address] [place], [place] [address] [address] 01/21/2024 10:30 AM EDT Hem/Onc Treatment Hematology/Oncology Treatment, [address] [address] [facility], Chair2 Hem Onc [address] [place], [place] [address] [address] 01/21/2024 11:45 AM EDT Hospital Encounter Radiology, [address] [place] [address] Prep, [facility] Ct [address] [place], [place] [address] [address] 01/24/2024 9:00 AM EDT Laboratory Laboratory, [place] [address] [facility], Lab [address] [place] [address] 01/24/2024 10:00 AM EDT Telemedicine Hematology/Oncology, [address] [address] Ortega Verde MD [address] [place] [address] Shayla, Telemed [facility] Hem Onc Clinic [address] [place] [address] 01/24/2024 10:30 AM EDT Hem/Onc Treatment Hematology/Oncology Treatment, [address] [address] [facility], Chair1 Hem Onc [address] [place] [address] 01/26/2024 9:00 AM EDT Office Visit Pharmacy, [facility] 132 [facility] [place] [address] [facility] [address] [place] [address] 01/31/2024 9:00 AM EDT Imaging Radiology [address] 132 [facility] [place] [address] 02/08/2024 12:30 PM EDT Office Visit Podiatry [address] [place] [address] Nayan Franklin, EVANGELINA [address] [place] [address] 02/09/2024 11:00 AM EDT Office Visit Palliative Medicine, [facility] 400 [facility] 5th Floor [place] [address] Nati Easley PA-C 400 [place] [address] 02/10/2024 11:40 AM EDT Office Visit [facility] [place] [address] [facility], [place] [address] Ivonne French PA-C [address] [facility], [place] [address] 03/14/2024 10:00 AM EDT Office Visit [facility] [place] [address] [facility], [place] [address] Ivonne French PA-C [address] [facility], [place] [address] 04/18/2024 10:00 AM EDT Office Visit [facility], [place] [address] [facility], [place] [address] Ivonne French PA-C [address] [facility] [place] [address] 05/10/2024 8:15 AM EDT [facility] [address] [facility] [place] [address] Migel Ramires MD 21 [facility] [place] [address] 05/16/2024 10:00 AM EDT Office Visit [facility], [place] [address] [facility], [place] [address] Ivonne French PA-C [address] [facility], [place] [address] Scheduled Procedures Name Priority Associated Diagnoses Date/Ti [...] this encounter Medical Devices Implanted Type Area Industrial Engineering Analyst Device Identifier Shelf Expiration Date Model / Serial / Lot Lens Intraoc 21.0 - [id number] - [id number] Implanted:Qty : 1 on 07/06/2017 by Luis Eduardo Cole MD at OR [facility] Left: Eye BAUSCH & LOMB 01/05/2022 [id number] / [id number] / Lens Intraoc 21.0 - [id number] - [id number] Implanted:Qty : 1 on 07/20/2017 by Luis Eduardo Cole MD at OR [facility] Right: Eye BAUSCH & LOMB 01/05/2022 [id number] / [id number] / Syringe Prolaryn Del 1.0cc - [id number] Implanted:Qty : 1 on 11/20/2019 by Amber Jain MD at OR [facility] Right: Mouth [employer] 10/21/2021 [id number] / / [id number] Implant Silastic 7 Silicone Sw - [id number] Implanted:Qty : 1 on 05/28/2020 by Farhat Pate MD at OR [facility] Right: Throat [employer] [id number] / / documented as of this [...] the patient have Health Care Power of Care Program Director? No Code Status History Code Status Date [...] and were consensually agreed upon. Care Teams Mottle Lay Up Operator Relationship Specialty Start Date End Date Ivonne French PA-C [address] [facility] [place] [address] PCP - General Physician Specialty Food Products Supervisor 07/24/21 documented as of this encounter
--- OUTSIDE RECORDS SUMMARY | 2024-01-29 21:21 | External Medical Summary | Summary of Care ---
Author Name Unknown Organization [facility] Address [address] [place] [address] Phone [phone] Care Team Providers Care Library Science Instructor Name Role Phone Ivonne French PA-C Primary Care Provider [phone] [phone] Reason for Visit * Reason Comments Treatment C 2 D 4 Dacogen * Episode Based Medications (Routine) - Authorized Specialty Diagnoses / Procedures Referred By Contsumanth t Referred To Contact Diagnoses 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sion (HCC) Procedures IA DECITABINE INJECTION Nilton Senior MD [address] [place] [address] Anc Hem/Onc [place] [address] [place] [address] Referral ID Status Reason Start Date Expiration Date V isits Requested Visits Authorized [id number] Authorized 11/24/2023 11/07/2099 999 999 Encounter Details Date Type Department Care Team (Latest Contact Info) Description 01/20/2024 12:00 PM EDT Hem/Onc Treatment Hematology/Oncology Treatment, [address] [address] [facility], Chair3 Hem Onc [address] [place] [address] [place], [place] [id number] 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sion [...] the morning. 180 Capsule 0 11/24/2022 Active Oculo TherapyTouch Delica Lancets 33G Use to test blood sugar three times daily E 11.9 300 Each 05/25/2023 Active OneTouch Verio w/Device Kit Use up to 3 times a day E11.9 1 Kit 0 05/25/2023 Active Pen [place] 32G X 4 MM Use as directed. 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 Use when checking blood [...] Beckham, RN - 01/20/2024 12:12 PM EDT Alcorn # 10 Chemotherapy/Immunotherapy agents: Dacogen Consent for [...] Voiced no complaints. Francesca Beckham, RN 01/20/2024 [facility] Nursing Care Plan ID is not [...] 01/20/2024 3:45 PM EDT Hospital Encounter Radiology, [address] [address] Prep, [facility] [address] [place], [place] [address] [address] 01/21/2024 9:30 AM EDT Laboratory Laboratory, [address] [address] [facility], Lab [address] [place], [place] [address] [address] 01/21/2024 10:30 AM EDT Hem/Onc Treatment Hematology/Oncology Treatment, [address] [place] [address] [facility], Chair2 Hem Onc [address] [place], [place] [address] [address] 01/24/2024 9:00 AM EDT Laboratory Laboratory, [address] [address] [facility], Lab [address] [place] [address] 01/24/2024 10:00 AM EDT Telemedicine Hematology/Oncology, [address] [address] Ortega Verde MD [address] [place] [address] Cart, Telemed [facility] [address] [place] [address] 01/24/2024 10:30 AM EDT Hem/Onc Treatment Hematology/Oncology Treatment, [address] [address] [facility], Chair1 Hem Onc [address] [place] [address] 01/26/2024 9:00 AM EDT Office Visit Pharmacy, [facility] [address] [place] [address] [facility] [address] [place] [address] 01/31/2024 9:00 AM EDT Imaging Radiology [facility] 1st [facility] [address] [facility] [place] [address] 02/08/2024 12:30 PM EDT Office Visit Podiatry [address] [place] [address] Nayan Franklin, EVANGELINA [facility]0 [place] [address] 02/09/2024 11:00 AM EDT Office Visit Palliative Medicine, [facility] 400 [facility] 5th Floor [place] [address] Nati Easley PA-C 400 [facility] [place] [address] 02/10/2024 11:40 AM EDT Office Visit [facility], [place] [address] [facility], [place] [address] Ivonne French PA-C [address] [place] [address] 03/14/2024 10:00 AM EDT Office Visit [facility], [place] [address] [place], [place] [address] Ivonne French PA-C [address] [place], [place] [address] 04/18/2024 10:00 AM EDT Office Visit [facility] [place] [address] [place], [place] [address] Ivonne French PA-C [address] [place] [address] 05/10/2024 8:15 AM EDT Office Visit Ophthalmology, [place] 21 [facility] [place] [address] Migel Ramires MD 21 [facility] [address] [address] 05/16/2024 10:00 AM EDT Office Visit [facility], [place] [address] [place], [place] [address] Ivonne French PA-C [address] [facility] [place] [address] Scheduled Procedures Name Priority Associated Diagnoses Date/Ti [...] this encounter Medical Devices Implanted Type Area Concert Or Lecture Hall Manager Device Identifier Shelf Expiration Date Model / Serial / Lot Lens Intraoc 21.0 - [id number] - [id number] Implanted:Qty : 1 on 07/06/2017 by Luis Eduardo Cole MD at OR [facility] Left: Eye [employer]USCH [employer] LOMB 01/05/2022 [id number] / [id number] / Lens Intraoc 21.0 - [id number] - [id number] Implanted:Qty : 1 on 07/20/2017 by Luis Eduardo Cole MD at OR [facility] Right: Eye [employer] LOMB 01/05/2022 [id number] / [id number] / Syringe Prolaryn Del 1.0cc - [id number] Implanted:Qty : 1 on 11/20/2019 by Amber Jain MD at [place] [facility] [place] [facility] Right: Mouth [employer] 10/21/2021 [id number] / / [id number] Implant Silastic 7 Silicone Sw - [id number] Implanted:Qty : 1 on 05/28/2020 by Farhat Pate MD at OR [facility] [facility] Right: Throat [employer] [id number] / / documented as of this encounter Visit Diagnoses Diagnosis 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sion (HCC)- Primary documented in this encounter Administered Medications Active Administered Medications - up to 3 most recent administrations Medication Order MAR Action Action Date Dose Rate Site diphenhydrAMINE (Benadryl) inj 50 mg 50 mg, IV Push, ONCE PRN Other, Hypersensitivity Reaction, Starting on Kaity 01/20/24 at 1211, Until Wed01/21/24 at 1210, For 24 hours EPINEPHrine 1 MG/ML inj 0.3 mg 0.3 mg, Intramuscular, ONCE PRN Other, Hypersensitivity Reaction or Anaphylaxis, Starting on Kaity 01/20/24 at 1211, Until Wed01/21/24 at 1210, For 24 hours hEParin 100 UNIT/ML Lock Flush inj 500 Units 500 Units (5 mL), IV Lock, PRN Other, IV Flush, Starting on Wed01/20/24 at 1211, Until Wed01/21/24 at 1210, For 24 hours, Do not flush if lock, PICC, or central line not in place; IV infusing or unable to flush. Hydrocortisone Sod Suc (PF) (Solu-Cortef) inj 100 mg 100 mg, IV Push, ONCE PRN Other, Hypersensitivity Reaction, Starting on Wed01/20/24 at 1211, Until Wed01/21/24 at 1210, For 24 hours NSS infusion Intravenous, at 50 mL/hr, PRN, Starting on Wed01/20/24 at 1315, Until Discontinued, Maintenance line Start Infusion 01/20/2024 12:23 PM EDT 50 mL/hr sodium chloride 0.9 % flush central line 10 mL 10 mL, IV Push, PRN Other, IV Flush, Starting on Wed01/20/24 at 1211, Until Wed01/21/24 at 1210, For 24 hours, Do not flush if [...] weight), IV Piggyback, ONCE, 1 dose, On Wed01/20/24 at 1315, Administer over 60 Minutes Start Infusion 01/20/2024 12:57 PM EDT 41.4 mg 100 mL/hr documented in [...] the patient have Health Care Power of Dock Clerk? No Code Status History Code Status Date [...] and were consensually agreed upon. Care Teams Library Science Instructor Relationship Specialty Start Date End Date Ivonne French PA-C [address] [place] [address] PCP - General Physician Systems Integration Advisor 07/24/21 documented as of this encounter
--- OUTSIDE RECORDS SUMMARY | 2024-01-29 21:21 | External Medical Summary | Summary of Care ---
Author Name Unknown Organization [facility] Address [address] [place] [address] Phone [phone] Care Team Providers Care Piping Drafter Name Role Phone Ivonne French PA-C Primary Care Provider [phone] Reason for Visit * Reason Comments Chemotherapy C2D3 Dacogen * Episode Based Medications (Routine) - Authorized Specialty Diagnoses / Procedures Referred By Lupis t Referred To Contact Diagnoses 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sion (HCC) Procedures WA DECITABINE INJECTION Nilton Senior MD [address] [place] [address] Anc Hem/Onc [place] [address] [place] [address] Referral ID Status Reason Start Date Expiration Date V isits Requested Visits Authorized [id number] Authorized 11/24/2023 11/07/2099 999 999 Encounter Details Date Type Department Care Team (Latest Contact Info) Description 01/19/2024 11:30 AM EDT Hem/Onc Treatment Hematology/Oncology Treatment, [address] [place] [address] [facility], Chair11 Hem Onc [address] [place], [place] [address] [phone] 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sion [...] the morning. 180 Capsule 0 11/24/2022 Active MyWaveTouch Delica Lancets 33G Use to test blood sugar three times daily E 11.9 300 Each 5 05/25/2023 Active MyWaveTouch Verio w/Device Kit Use up to 3 times a day E11.9 1 Kit 0 05/25/2023 Active Pen [place] 32G X 4 MM Use as directed. 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 Use when checking blood [...] symptoms or adverse side effects during treatment. [facility] Nursing Care Plan ID is not set. [...] 01/20/2024 11:30 AM EDT Office Visit Hematology/Oncology, [facility] [address] [place] [address] Tasneem Bryant CRNP 400 [facility] [place] [address] 01/20/2024 12:00 PM EDT Hem/Onc Treatment Hematology/Oncology Treatment, [address], [place] [address] [facility], Chair3 Hem Onc [address] [place] [address], [place] [address] 01/21/2024 9:30 AM EDT Laboratory Laboratory, [address] [place] [address] [facility], Lab [address] [place] [address] 01/21/2024 10:30 AM EDT Hem/Onc Treatment Hematology/Oncology Treatment, [address] [place] [address] [facility], Chair2 Hem Onc [address] [place] [address], [place] [address] 01/24/2024 9:00 AM EDT Laboratory Laboratory, [address] [place] [address] [facility], Lab [address] [place] [address] 01/24/2024 10:00 AM EDT Telemedicine Hematology/Oncology, [address] [place] [address] Ortega Verde MD [address] [place] [address] Alexandra Mcguireed [facility] Hem Onc Clinic [address] [place] [address], [place] [address] 01/24/2024 10:30 AM EDT Hem/Onc Treatment Hematology/Oncology Treatment, [facility] 400 [facility] [address] [facility], Chair1 Hem Onc 400 [place] [address] 01/26/2024 9:00 AM EDT Office Visit Pharmacy, [facility] 132 [facility] [place] [address] [facility] 132 [facility] [place] [address] 01/31/2024 9:00 AM EDT Imaging Radiology [facility] 1st [facility] 132 [facility] [place] [address] 02/08/2024 12:30 PM EDT Office Visit Podiatry [address] [place] [address] Nayan Franklin, [place] [address] [place] [address] 02/09/2024 11:00 AM EDT Office Visit Palliative Medicine, [facility] 400 [facility] 5th [place] [address] Nati Easley PA-C 400 [place] [address] 02/10/2024 11:40 AM EDT Office [address] [phone] Ivonne French PA-C 819 [facility] [place] [address] 03/14/2024 10:00 AM EDT Office Visit [address] [phone] Ivonne French PA-C [address] [place] [address] 04/18/2024 10:00 AM EDT Office Visit [place] [address] [address] [facility] [place] [address] Ivonne French PA-C [address] [place] [address] 05/10/2024 8:15 AM EDT Office Visit Ophthalmology, [place] [facility] [address] Migel Ramires MD 21 [facility] [address] 05/16/2024 10:00 AM EDT Office Visit [place] [address] [address] [facility] [place] [address] Ivonne French PA-C [address] [facility], [place] [address] Scheduled Procedures Name Priority Associated Diagnoses Date/Ti [...] this encounter Medical Devices Implanted Type Area Solar Project Coordination Specialist Device Identifier Shelf Expiration Date Model / Serial / Lot Lens Intraoc 21.0 - [id number] - [id number] Implanted:Qty : 1 on 07/06/2017 by Luis Eduardo Cole MD at OR [facility] Left: Eye [employer] 01/05/2022 [id number] / [id number] / Lens Intraoc 21.0 - [id number] - [id number] Implanted:Qty : 1 on 07/20/2017 by Luis Eduardo Cole MD at OR [facility] Right: Eye [employer] 01/05/2022 [id number] / [id number] / Syringe Prolaryn Del 1.0cc - [id number] Implanted:Qty : 1 on 11/20/2019 by Amber Jain MD at [place] [facility] Right: Mouth [employer] 10/21/2021 [id number] / / [id number] Implant Silastic 7 Silicone Sw - [id number] Implanted:Qty : 1 on 05/28/2020 by Farhat Pate MD at [place] [facility] Right: Throat [employer] [id number] / / documented as of this [...] the patient have Health Care Power of Plate Maker? No Code Status History Code Status Date [...] and were consensually agreed upon. Care Teams Piping Drafter Relationship Specialty Start Date End Date Ivonne French PA-C [address] [place] [address] PCP - General Physician Dress Operator 07/24/21 documented as of this encounter
--- OUTSIDE RECORDS SUMMARY | 2024-01-29 21:21 | External Medical Summary ---
Author Name Unknown Address Unknown Organization K1F:[facility] [address] [facility] [place] [address] Laboratory Report Ordering Provider Test Date Status BRADLY BERMAN 01/21/2024 10:20:51 Final Observation Date Value Abnormality Reference (Units ) Status BUN 01/21/2024 10:20:51 16 6-20 (mg/dL) Final Creatinine 01/21/2024 10:20:51 0.9 0.5-1.0 (mg/dL) Final Glomerular filtration rate/1.73 sq M.predicted [Volume Rate/Area] in Serum, Plasma or Blood by Creatinine-based formula (CKD-EPI) 01/21/2024 10:20:51 77 >=60 (mL/min) Final eGFR is calculated based on the CKD-EPI 2020 equation SODIUM 01/21/2024 10:20:51 137 135-146 (m mol/L) Final Potassium 01/21/2024 10:20:51 4.0 3.5-5.1 (m mol/L) Final Cl 01/21/2024 10:20:51 96 Below low normal 98- 107 (mmol/L) Final CO2 01/21/2024 10:20:51 29 22-32 (mmo l/L) Final Anion gap 01/21/2024 10:20:51 12 7-15 (mmol /L) Final Glucose 01/21/2024 10:20:51 309 Above high normal 70 -120 (mg/dL) Final Albumin 01/21/2024 10:20:51 4.0 3.8-5.0 (g /dL) Final AST (Aspartate aminotransferase) 01/21/2024 10:20:51 103 Above high normal 10-35 (U/L) Final Alk Phos 01/21/2024 10:20:51 162 Above high normal 35 -130 (U/L) Final Bilirubin, Total 01/21/2024 10:20:51 0.6 <=1 .2 (mg/dL) Final Calcium 01/21/2024 10:20:51 8.9 8.4-10.2 ( mg/dL) Final Protein 01/21/2024 10:20:51 7.6 6.0-8.3 (g /dL) Final ALT (Alanine aminotransferase) 01/21/2024 10:20:51 104 Above high normal 10-35 (U/L) Final Performing Location LABORATORY [facility] [place] [address]
--- OUTSIDE RECORDS SUMMARY | 2024-01-29 21:21 | External Medical Summary ---
Author Name Unknown Address Unknown Organization K1F:LABORATORY [facility] - [address] [place] [address] [address] [place] [address] Laboratory Report Ordering Provider Test Date Status BRADLY BERMAN 01/21/2024 10:20:51 Final Observation Date Value Abnormality Reference (Units ) Status WBC, Total 01/21/2024 10:20:51 0.84 Below lower panic limits 4.00-10.80 (K/uL) Final RBC 01/21/2024 10:20:51 2.78 3.85-5.15 (M/uL) Final Hemoglobin 01/21/2024 10:20:51 8.5 Below low normal 12.0-15.3 (g/dL) Final HCT 01/21/2024 10:20:51 24.2 Below low normal 36.0-45.2 (%) Final MCV 01/21/2024 10:20:51 87.1 81.5-97.5 (fL) Final MCH 01/21/2024 10:20:51 30.6 27.0-34.0 (pg) Final MCHC 01/21/2024 10:20:51 35.1 32.0-36.0 (g/dL) Final RDW 01/21/2024 10:20:51 14.1 11.5-15.5 (%) Final Platelets 01/21/2024 10:20:51 140 140-400 (K/uL) Final MPV 01/21/2024 10:20:51 9.8 6.6-11.1 (fL) Final Nucleated erythrocytes/100 leukocytes [Ratio] in Blood by Automated count 01/21/2024 10:20:51 0 <=0 (/100 WBCs) Final Performing Location LABORATORY [facility] - [address] [place] [address]
--- OUTSIDE RECORDS SUMMARY | 2024-01-29 21:22 | External Medical Summary ---
Author Name Unknown Address Unknown Organization K1F:LABORATORY [facility] - [address] [place] [address] Laboratory Report Ordering Provider Test Date Status ANTONELLABRADLY 01/19/2024 10:25:50 Final Observation Date Value Abnormality Reference (Units ) Status Uric Acid 01/19/2024 10:25:50 2.4 2.4-5.7 (m g/dL) Final Performing Location LAB[facility] - [address] [place] [address]
--- OUTSIDE RECORDS SUMMARY | 2024-01-29 21:22 | External Medical Summary | Summary of Care ---
Author Name Unknown Organization [facility] Address [address] [place] [address] Phone [phone] Care Team Providers Care Senior Contracts Administrator Name Role Phone Ivonne French PA-C Primary Care Provider [phone] Reason for Visit * Reason Comments Outpatient Testing Encounter Details Date Type Department Care Team (Late st Contact Info) Description 01/17/2024 10:30 AM EDT Laboratory Laboratory, [facility] 400 [place] [phone] [facility], Lab [address] [place], [place] [phone] 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sion (HCC) Allergies Active Allergy Reactions Criticality Noted Date Comments Adhesive Tape 04/21/2016 Glue off the old style medical tape. documented as of this encounter (statuses as of 01/17/2024) Medications Medication Sig Dispensed Refills Start Date [...] E11.9 1 Kit 0 05/25/2023 Active Pen [place] 32G X 4 MM Use as directed. 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 Use when checking blood [...] as of this encounter (statuses as of 01/17/2024) Active Problems Problem Noted Date Diagnosed Date [...] as of this encounter (statuses as of 01/17/2024) Resolved Problems Problem Noted Date Diagnosed Date [...] as of this encounter (statuses as of 01/17/2024) Immunizations Name Administration Dates Next Due COVID-19 [...] Care Team (Late st Contact Info) Description 01/17/2024 12:00 PM EDT Hem/Onc Treatment Hematology/Oncology Treatment, [facility] [address] [facility], Chair10 Hem Onc [address] [place], [place] [address] [address] Arrived 01/26/2024 9:00 AM EDT Office Visit Pharmacy, [facility] 132 [facility] [place] [address] [facility] 132 [facility] [place] [address] 01/31/2024 9:00 AM EDT Imaging Radiology [facility] 1st [facility] 132 [facility] [place] [address] 02/08/2024 12:30 PM EDT Office Visit Podiatry [address] [place] [address] Nayan Frnaklin, [facility] 1020 [place] [address] 02/09/2024 11:00 AM EDT Office Visit Palliative Medicine, [address] 5th Floor [place] [address] Nati Easley PA-C 400 [place] [address] 02/10/2024 11:40 AM EDT Office Visit [facility] [address] [facility] [address] Ivonne French PA-C [address] [place] [address] 03/14/2024 10:00 AM EDT Office Visit [facility] [place] [address] [place] [facility] [place] [address] Ivonne French PA-C [address] [facility] [place] [address] 04/18/2024 10:00 AM EDT Office Visit [facility] [place] [address] [place] [facility] [place] [address] Ivonne French PA-C [address] [place] [facility] [place] [address] 05/10/2024 8:15 AM EDT Office Visit Ophthalmology, [place] [address] [address] Migel Ramires MD [address] [address] 05/16/2024 10:00 AM EDT Office Visit [facility] [place] [address] [facility], [place] [phone] Ivonne French PA-C [address] [facility], [place] [phone] Pending Results Name Type Priority Associated Diagnoses Date /Time CBC WITH WBC DIFFERENTIAL Lab STAT 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sion (HCC) 01/17/2024 11:16 AM EDT COMPREHENSIVE METABOLIC PANEL Lab STAT 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sion (HCC) 01/17/2024 11:16 AM EDT TYPE AND SCREEN Lab STAT 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sion (HCC) 01/17/2024 11:16 AM EDT LD Lab STAT 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sion (HCC) 01/17/2024 11:16 AM EDT URIC ACID Lab STAT 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sion (HCC) 01/17/2024 11:16 AM EDT CBC Lab STAT 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sion (HCC) 01/17/2024 11:16 AM EDT DIFFERENTIAL, AUTOMATED Lab STAT 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sion (HCC) 01/17/2024 11:16 AM EDT Scheduled Procedures Name Priority Associated [...] history exists Depression Screening 12/30/2024 12/30/2023 GFR 01/13/2025 01/14/2024, 03/0 04/2024, 01/10/2024, Additional history exists PAP SMEAR-EVERY 3 YRS,AGES [...] this encounter Medical Devices Implanted Type Area Bottle Machine Operator Device Identifier Shelf Expiration Date Model / Serial / Lot Lens Intraoc 21.0 - [id number] - [id number] Implanted:Qty : 1 on 07/06/2017 by Luis Eduardo Cole MD at OR [facility] Left: Eye [employer] 01/05/2022 [id number] / [id number] / Lens Intraoc 21.0 - [id number] - [id number] Implanted:Qty : 1 on 07/20/2017 by Luis Eduardo Cole MD at OR [facility] Right: Eye [employer] 01/05/2022 [id number] / [id number] / Syringe Prolaryn Del 1.0cc - [id number] Implanted:Qty : 1 on 11/20/2019 by Amber Jain MD at [place] [facility] Right: Mouth [employer] 10/21/2021 [id number] / / [id number] Implant Silastic 7 Silicone Sw - [id number] Implanted:Qty : 1 on 05/28/2020 by Farhat Pate MD at [place] [facility] Right: Throat [employer] [id number] / / documented as of this [...] the patient have Health Care Power of Fruit Grader? No Code Status History Code Status Date [...] and were consensually agreed upon. Care Teams Senior Contracts Administrator Relationship Specialty Start Date End Date Ivonne French PA-C [address] [place] [address] PCP - General Physician Pharmacovigilance Safety Expert 07/24/21 documented as of this encounter
--- OUTSIDE RECORDS SUMMARY | 2024-01-29 21:22 | External Medical Summary | Summary of Care ---
Author Name Unknown Organization [facility] Address [address] [place] [address] Phone [phone] Care Team Providers Care Federal Air Marshal Name Role Phone Ivonne French PA-C Primary Care Provider [phone] Reason for Visit * Reason Onset Date Comments Scheduling 01/19/2024 Encounter Details Date Type Department Care Team (Late st Contact Info) Description 01/19/2024 Telephone Hematology Oncology [facility] [address] [place] [address] Ortega Verde MD [address] [place] [address] Scheduling Allergies Active Allergy Reactions Criticality Noted Date [...] E11.9 1 Kit 0 05/25/2023 Active Pen [place] 32G X 4 MM Use as directed. 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 Use when checking blood [...] encounter Miscellaneous Notes * Telephone Encounter - Maria R Agosto OSA - 01/19/2024 9:07 AM EDT Called patient to schedule Bone Marrow Biopsy. No answer. Left message for patient to return call. documented in this encounter Plan of Treatment Upcoming Encounters Date Type Department Care Team (Late st Contact Info) Description 01/19/2024 10:30 AM EDT Laboratory Laboratory, [address] [address] [facility], Lab [address] [place] [address] [place] [address] 01/19/2024 11:30 AM EDT Hem/Onc Treatment Hematology/Oncology Treatment, [address] [address] [facility], Chair11 Hem Onc [address] [place] [address] [place] [address] 01/20/2024 11:30 AM EDT Office Visit Hematology/Oncology, [address] [address] Tasneem Bryant CRNP [address] [place], [place] [address] [address] 01/20/2024 12:00 PM EDT Hem/Onc Treatment Hematology/Oncology Treatment, [address] [address] [facility], Chair3 Hem Onc [address] [place] [address] [place] [address] 01/21/2024 9:30 AM EDT Laboratory Laboratory, [address] [address] [facility], Lab [address] [place] [address] 01/21/2024 10:30 AM EDT Hem/Onc Treatment Hematology/Oncology Treatment, [address] [address] [facility], Chair2 Hem Onc [address] [place], [place] [address] [address] 01/24/2024 9:00 AM EDT Laboratory Laboratory, [address] [address] [facility], Lab [address] [place] [address] 01/24/2024 10:00 AM EDT Telemedicine Hematology/Oncology, [address] [address] Ortega Verde MD [address], [place] [id number] Shayla, Telemed [facility] Hem Onc Clinic [address] [place] [address] 01/24/2024 10:30 AM EDT Hem/Onc Treatment Hematology/Oncology Treatment, [address] [address] [facility], Chair1 Hem Onc [address] [place] [address] [address] 01/26/2024 9:00 AM EDT Office Visit Pharmacy, [facility] [address] [facility] [place] [address] [place], [address] [place] [address] 01/31/2024 9:00 AM EDT Imaging Radiology [facility] 1st [facility] [address] [facility] [place] [address] 02/08/2024 12:30 PM EDT Office Visit Podiatry [address] [place] [address] Nayan Franklin, [facility] [address] [place] [address] 02/09/2024 11:00 AM EDT Office Visit Palliative Medicine, [facility] 400 [facility] 5th [place] [address] Nati Easley PA-C [address] [place] [address] 02/10/2024 11:40 AM EDT Office Visit [facility], [place] [address] [address] [facility], [place] [address] Ivonne French PA-C [address] [facility], [place] [address] 03/14/2024 10:00 AM EDT Office Visit [facility], [place] [address] [address] [facility], [place] [address] Ivonne French PA-C [address] [facility], [place] [address] 04/18/2024 10:00 AM EDT Office Visit Family [facility], [place] [address] [address] [facility], [place] [address] Ivonne French PA-C [address] [facility], [place] [address] 05/10/2024 8:15 AM EDT Office Visit Ophthalmology, [place] [address] [place] [address] Migel Ramires MD [address] [place] [address] 05/16/2024 10:00 AM EDT Office Visit [facility] [address] [place] [address] Ivonne French PA-C [address] [place] [address] Scheduled Procedures Name Priority Associated Diagnoses Date/Ti [...] this encounter Medical Devices Implanted Type Area Manager Fire Device Identifier Shelf Expiration Date Model / Serial / Lot Lens Intraoc 21.0 - [id number] - [id number] Implanted:Qty : 1 on 07/06/2017 by Luis Eduardo Cole MD at OR [facility] Left: Eye BAUSCH & LOMB 01/05/2022 [id number] / [id number] / Lens Intraoc 21.0 - [id number] - [id number] Implanted:Qty : 1 on 07/20/2017 by Luis Eduardo Cole MD at OR [facility] Right: Eye BAUSCH & LOMB 01/05/2022 [id number] / [id number] / Syringe Prolaryn Del 1.0cc - [id number] Implanted:Qty : 1 on 11/20/2019 by Amber Jain MD [place] [facility] [place] Mouth [employer] 10/21/2021 [id number] / / [id number] Implant Silastic 7 Silicone Sw - [id number] Implanted:Qty : 1 on 05/28/2020 by Farhat Pate MD at [facility] Right: Throat Gravie [id number] / / documented as of this [...] the patient have Health Care Power of Topstitcher Zigzag? No Code Status History Code Status Date [...] and were consensually agreed upon. Care Teams Federal Air Marshal Relationship Specialty Start Date End Date Ivonne French PA-C [address] [place] [address] PCP - General Physician Die Cast Technician 07/24/21 documented as of this encounter
--- OUTSIDE RECORDS SUMMARY | 2024-01-29 21:22 | External Medical Summary | Summary of Care ---
Author Name Unknown Organization [facility] Address [address] [place] [address] Phone [phone] Care Team Providers Care Dental Technology Advisor Name Role Phone Ivonne French PA-C Primary Care Provider [phone] Reason for Visit * Reason Comments Chemotherapy Dacogen * Episode Based Medications (Routine) - Authorized Specialty Diagnoses / Procedures Referred By Contsumanth t Referred To Contact Diagnoses 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sion (HCC) Procedures MI DECITABINE INJECTION Nilton Senior MD [address] [place] [address] Anc Hem/Onc [place] [address] [place] [address] Referral ID Status Reason Start Date Expiration Date V isits Requested Visits Authorized [id number] Authorized 11/24/2023 11/07/2099 999 [id number] Encounter Details Date Type Department Care Team (Latest Contact Info) Description 01/18/2024 11:30 AM EDT Hem/Onc Treatment Hematology/Oncology Treatment, [address] [place] [address] [facility], Chair4 Hem Onc [address] [place] [address] [place] [address] 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sion (HCC)* Allergies Active Allergy Reactions Criticality Noted Date Comments Adhesive Tape 04/21/2016 Glue off the old style medical tape. documented as of this encounter (statuses as of 01/18/2024) Medications Medication Sig Dispensed Refills Start Date End Date Status Aspirin 81 MG Tablet Take 1 Tablet by mouth in the morning. 0 Active DULoxetine HCl 60 MG Oral Capsule Delayed Release Particles (Cymbalta) Take 1 Capsule by mouth in the morning. 180 Capsule 0 11/24/2022 Active Oxford SemiconductorTouch Delica Lancets 33G Use to test blood sugar three times daily E 11.9 300 Each 05/25/2023 Active Oxford SemiconductorTouch Verio w/Device Kit Use up to 3 times a day E11.9 1 Kit 0 05/25/2023 Active Pen [place] 32G X 4 MM Use as directed. 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 Use when checking blood [...] as of this encounter (statuses as of 01/18/2024) Active Problems Problem Noted Date Diagnosed Date [...] as of this encounter (statuses as of 01/18/2024) Resolved Problems Problem Noted Date Diagnosed Date [...] as of this encounter (statuses as of 01/18/2024) Immunizations Name Administration Dates Next Due COVID-19 [...] Description 01/19/2024 10:30 AM EDT Laboratory Laboratory, [address], [place] [phone] [facility], Lab [address] [place] [address] [place] [address] 01/19/2024 11:30 AM EDT Hem/Onc Treatment Hematology/Oncology Treatment, [address] [address] [facility], Chair11 Hem Onc [address] [place], [place] [address] [address] 01/20/2024 11:30 AM EDT Office Visit Hematology/Oncology, [address] [address] Tasneem Bryant CRNP [address] [place], [place] [address] [address] 01/20/2024 12:00 PM EDT Hem/Onc Treatment Hematology/Oncology Treatment, [address] [address] [facility], Chair3 Hem Onc [address] [place], [place] [address] [address] 01/21/2024 9:30 AM EDT Laboratory Laboratory, [address] [phone] [facility], Lab [address] [place] [address] [place] [address] 01/21/2024 10:30 AM EDT Hem/Onc Treatment Hematology/Oncology Treatment, [address] [address] [facility], Chair2 Hem Onc [address] [place] [address] 01/24/2024 10:00 AM EDT Laboratory Laboratory, [address] [phone] [facility], Lab [address] [place] [address] 01/24/2024 11:00 AM EDT Telemedicine Hematology/Oncology, [address] [address] Ortega Verde MD [address] [place] [address] Alexandra Mcguireed [facility] Hem Onc Clinic [address] [place] [address] 01/24/2024 11:30 AM EDT Hem/Onc Treatment Hematology/Oncology Treatment, [address] [address] [facility], Chair1 Hem Onc [address] [place] [address] 01/26/2024 9:00 AM EDT Office Visit Pharmacy, [facility] [address] [address] [facility] [address] [place] [address] 01/31/2024 9:00 AM EDT Imaging Radiology [facility] 1st Floor, [place] [address] [facility] [place] [address] 02/08/2024 12:30 PM EDT Office Visit Podiatry [facility] [address] [place] [address] [address] [place] [address] Nayan Franklin, [facility] [address] [place] [address] 02/09/2024 11:00 AM EDT Office Visit Palliative Medicine, [facility] [address] [facility] 5th Floor [place] [address] Nati Easley PA-C [address] [place] [address] 02/10/2024 11:40 AM EDT [facility] [place], [place] [address] [address] [facility] [address] Ivonne French PA-C [address] [facility] [place] [address] 03/14/2024 10:00 AM EDT Office [facility] [place] [place], [place] [address] [facility] [address] Ivonne French PA-C [address] [facility], [place] [address] 04/18/2024 10:00 AM EDT Office [facility] [place] [place], [place] [address] [facility] [address] Ivonne French PA-C [address] [facility], [place] [address] 05/10/2024 8:15 AM EDT [facility] [address] [place] [address] Migel Ramires MD [address] [place] [address] 05/16/2024 10:00 AM EDT Office Visit [facility] [address] [place] [address] Ivonne French PA-C [address] [place], [place] [id number] Scheduled Procedures Name Priority Associated Diagnoses Date/Ti [...] Depression Screening 12/30/2024 12/30/2023 GFR 01/16/2025 01/17/2024, 03/06/2024, 01/12/2024, Additional history exists P[facility] S[facility]-EVERY 3 [...] this encounter Medical Devices Implanted Type Area Openstack Cloud Consulting Architect Device Identifier Shelf Expiration Date Model / Serial / Lot Lens Intraoc 21.0 - [id number] - [id number] Implanted:Qty : 1 on 07/06/2017 by Luis Eduardo Cole MD at OR [facility] Left: Eye BAUSCH & LOMB 01/05/2022 [id number] / [id number] / Lens Intraoc 21.0 - [id number] - [id number] Implanted:Qty : 1 on 07/20/2017 by Luis Eduardo Cole MD at OR [facility] Right: Eye BAUSCH & LOMB 01/05/2022 [id number] / [id number] / Syringe Prolaryn Del 1.0cc - [id number] Implanted:Qty : 1 on 11/20/2019 [place] Amber J[place] [facility] [place]: Mouth [employer] 10/21/2021 [id number] / / [id number] Implant Silastic 7 Silicone Sw - [id number] Implanted:Qty : 1 on 05/28/2020 [place] Farhat Pate [place] [facility] [place]: Throat Roamer [id number] / / documented as of this encounter Visit Diagnoses Diagnosis 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sion (HCC)- Primary documented in this encounter Administered Medications Active Administered Medications - up to 3 most recent administrations Medication Order MAR Action Action Date Dose Rate Site diphenhydrAMINE (Benadryl) inj 50 mg 50 mg, IV Push, ONCE PRN Other, Hypersensitivity Reaction, Starting on Wed01/18/24 at 1112, Until Wed01/19/24 at 1111, For 24 hours EPINEPHrine 1 MG/ML inj 0.3 mg 0.3 mg, Intramuscular, ONCE PRN Other, Hypersensitivity Reaction or Anaphylaxis, Starting on Wed01/18/24 at 1112, Until Wed01/19/24 at 1111, For 24 hours hEParin 100 UNIT/ML Lock Flush inj 500 Units 500 Units (5 mL), IV Lock, PRN Other, IV Flush, Starting on Wed01/18/24 at 1112, Until Wed01/19/24 at 1111, For 24 hours, Do not flush if lock, PICC, or central line not in place; IV infusing or unable to flush. Hydrocortisone Sod Suc (PF) (Solu-Cortef) inj 100 mg 100 mg, IV Push, ONCE PRN Other, Hypersensitivity Reaction, Starting on Wed01/18/24 at 1112, Until Wed01/19/24 at 1111, For 24 hours NSS infusion Intravenous, at 50 mL/hr, PRN, Starting on Wed01/18/24 at 1215, Until Discontinued, Maintenance line Start Infusion 01/18/2024 11:23 AM EDT 50 mL/hr oxygen GAS Inhalation, OXYGEN, First dose on Wed01/18/24 at 1145, Until Discontinued, Device/Managed by: Low Flow Device, [...] Push, PRN Other, IV Flush, Starting on Wed01/18/24 at 1112, Until Wed01/19/24 at 1111, For 24 hours, Do not flush if [...] 11:40 AM EDT 41.4 mg 100 mL/hr documented [...] the patient have Health Care Power of Tube Laser Operator? No Code Status History Code Status [...] and were consensually agreed upon. Care Teams Dental Technology Advisor Relationship Specialty Start Date End Date Ivonne French PA-C [address] [place] [address] PCP - General Physician Channel Process Plant Operator 07/24/21 documented as of this encounter
--- OUTSIDE RECORDS SUMMARY | 2024-01-29 21:22 | External Medical Summary ---
Author Name Unknown Address Unknown Organization K1F:[facility] - [address] [place] [address] [address] [place] [address] Laboratory Report Ordering Provider Test Date Status BRADLY BERMAN 01/19/2024 10:25:50 Final Observation Date Value Abnormality Reference (Units ) Status WBC, Total 01/19/2024 10:25:50 0.88 Below lower panic limits 4.00-10.80 (K/uL) Final RBC 01/19/2024 10:25:50 2.79 3.85-5.15 (M/uL) Final Hemoglobin 01/19/2024 10:25:50 8.3 Below low normal 12.0-15.3 (g/dL) Final HCT 01/19/2024 10:25:50 24.2 Below low normal 36.0-45.2 (%) Final MCV 01/19/2024 10:25:50 86.7 81.5-97.5 (fL) Final MCH 01/19/2024 10:25:50 29.7 27.0-34.0 (pg) Final MCHC 01/19/2024 10:25:50 34.3 32.0-36.0 (g/dL) Final RDW 01/19/2024 10:25:50 13.7 11.5-15.5 (%) Final Platelets 01/19/2024 10:25:50 119 Below low normal 140-400 (K/uL) Final MPV 01/19/2024 10:25:50 9.6 6.6-11.1 (fL) Final Nucleated erythrocytes/100 leukocytes [Ratio] in Blood by Automated count 01/19/2024 10:25:50 0 <=0 (/100 WBCs) Final Performing Location [facility] - [address] [place] [address]
--- OUTSIDE RECORDS SUMMARY | 2024-01-29 21:22 | External Medical Summary | Summary of Care ---
Author Name Unknown Organization [facility] Address [address] [place] [address] Phone [phone] Care Team Providers Care Public Health Representative Name Role Phone Ivonne French PA-C Primary Care Provider [phone] Encounter Details Date Type Department Care Team (Late st Contact Info) Description 01/14/2024 12:30 PM EST Hem/Onc Treatment Hematology/Oncology Treatment, [facility] [address] [place] [address] [facility], Chair10 Hem Onc [address] [place] [address] Allergies Active Allergy Reactions Criticality Noted Date Comments Adhesive Tape 04/21/2016 Glue off the old style medical tape. documented as of this encounter (statuses as of 01/14/2024) Medications Medication Sig Dispensed Refills Start Date [...] E11.9 1 Kit 0 05/25/2023 Active Pen [place]vel[place] 32G X 4 MM Use as directed. [...] Hour (toPROL XL)Indications:Craig nary artery disease involving [place]wi[place]ayp coronary artery of ewiia[place]ayp heart without angina pectoris Take 2 Tablets by mouth daily in the morning. 135 Tablet 1 12/28/2023 Active Acyclovir 400 MG Oral Tablet (Zovirax) Take 1 Tablet by mouth in the morning and 1 Tablet before bedtime. 60 Tablet 12/28/2023 Active levoFLOXacin 500 MG Oral Tablet (Levaquin) Take 1 Tablet by mouth daily in the morning. 30 Tablet 1 12/29/2023 Active OneTouch Verio In Vitro Strip (Glucose Blood) Use when checking blood glucose levels 4 times per day 200 Strip 12/28/2023 Active OneTouch Delica Plus Dthdrp45M Use as directed. Use when checking blood [...] units 21 mL 12/28/2023 Active Magic Swizzle (Lidocaine-Benadryl -Maalox) oral [...] as of this encounter (statuses as of 01/14/2024) Active Problems Problem Noted Date Diagnosed Date [...] as of this encounter (statuses as of 01/14/2024) Resolved Problems Problem Noted Date Diagnosed Date [...] as of this encounter (statuses as of 01/14/2024) Immunizations Name Administration Dates Next Due COVID-19 [...] of this encounter Nursing Notes * Felicitas Ly, RN - 01/14/2024 10:58 AM EST Hgb 8.4, no blood products needed today per parameters between 7-8. Felicitas Ly RN 01/14/2024 10:58 AM documented in this encounter Plan of Treatment Upcoming Encounters Date Type Department Care Team (Late st Contact Info) Description 01/14/2024 11:30 AM EST Laboratory Laboratory, [address] [phone] [facility], Lab [address] [place] [address] 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sion (HCC) 01/17/2024 10:30 AM EDT Laboratory Laboratory, [address] [phone] [facility], Lab [address] [place] [address] 01/17/2024 11:30 AM EDT Office Visit Hematology/Oncolog y, [address] [place] [address] Ortega Verde MD [address] [place] [address] 01/17/2024 12:00 PM EDT Hem/Onc Treatment Hematology/Oncolog y Treatment, [address] [place] [address] [facility], Chair10 Hem Onc [address] [place] [address] [place] [address] 01/26/2024 9:00 AM EDT Office Visit Pharmacy, [facility] 132 [facility] [place] [address] [facility] 132 [facility] [place] [address] 01/31/2024 9:00 AM EDT Imaging Radiology [facility] [place] [address] 02/08/2024 12:30 PM EDT Office Visit Podiatry [facility], [address] [place] [address] Nayan Franklin, [facility] [address] [place] [address] 02/09/2024 11:00 AM EDT Office Visit Palliative Medicine, [facility] 400 [facility] 5th [place] [address] Nati Easley PA-C [address] [place] [address] 02/10/2024 11:40 AM EDT Office Visit [facility], [place] [address], [place] [address] Ivonen Frecnh PA-C [address] [facility], [place] [address] 03/14/2024 10:00 AM EDT Office Visit [facility], [place] [address], [place] [address] Ivonne French PA-C [address] [facility], [place] [address] 04/18/2024 10:00 AM EDT Office Visit [facility], [place] [address] [address] [address] Ivonne French PA-C [address] [place] [address] 05/10/2024 8:15 AM EDT Office Visit Ophthalmology, [place] [address] [place] [address] Migel Ramires MD 21 [facility] [place] [address] 05/16/2024 10:00 AM EDT Office Visit [facility], [place] [address] [place] [address] Ivonne French PA-C [address] [place] [address] Scheduled Procedures Name Priority Associated Diagnoses Date/Ti [...] 09/16/2022, Additional history exists TSH 12/12/2024 12/12/2023, 06/2 , 12/25/2022, Additional history exists Depression Screening 12/30/2024 [...] this encounter Medical Devices Implanted Type Area Pre Sales Architect Device Identifier Shelf Expiration Date Model / Serial / Lot Lens Intraoc 21.0 - [id number] - [id number] Implanted:Qty : 1 on 07/06/2017 by Luis Eduardo Cole MD at OR [facility] Left: Eye BAUSCH & LOMB 01/05/2022 [id number] / [id number] / Lens Intraoc 21.0 - [id number] - [id number] Implanted:Qty : 1 on 07/20/2017 by Luis Eduardo Cole MD at OR [facility] Right: Eye BAUSCH & LOMB 01/05/2022 [id number] / [id number] / Syringe Prolaryn Del 1.0cc - [id number] Implanted:Qty : 1 on 11/20/2019 by Amber J[place] [facility] [place] Mouth [employer] 10/21/2021 [id number] / / [id number] Implant Silastic 7 Silicone Sw - [id number] Implanted:Qty : 1 on 05/28/2020 by Farhat Pate MD [place] [facility] [place]: Throat [employer] [id number] / / documented as of this [...] the patient have Health Care Power of Assembler Erector? No Code Status History Code Status Date [...] and were consensually agreed upon. Care Teams Public Health Representative Relationship Specialty Start Date End Date Ivonne French PA-C [address] [place] [address] PCP - General Physician Steel Erector Apprentice 07/24/21 documented as of this encounter
--- OUTSIDE RECORDS SUMMARY | 2024-01-29 21:22 | External Medical Summary ---
Author Name Unknown Address Unknown Organization K1F:[facility] - [address] [place] [address] Laboratory Report Ordering Provider Test Date Status BRADLY BERMAN 01/19/2024 10:25:50 Final Observation Date Value Abnormality Reference (Units ) Status LDH 01/19/2024 10:25:50 223 <=250 (U/L ) Final Performing Location [facility] - [address] [place] [address]
--- OUTSIDE RECORDS SUMMARY | 2024-01-29 21:22 | External Medical Summary ---
Author Name Unknown Address Unknown Organization K1F:[facility]ORY [facility] - [address] [place] [address] Laboratory Report Ordering Provider Test Date Status ANTONELLADIEGOAPPLE 01/17/2024 11:16:38 Final Observation Date Value Abnormality Reference (Units ) Status Uric Acid 01/17/2024 11:16:38 2.1 Below low normal 2.4 -5.7 (mg/dL) Final Performing Location LAB[facility] - [address] [place] [address]
--- OUTSIDE RECORDS SUMMARY | 2024-01-29 21:22 | External Medical Summary | Summary of Care ---
Author Name Unknown Organization [facility] Address [address] [place] [address] Phone [phone] Care Team Providers Care Server Security Administrator Name Role Phone Ivonne French PA-C Primary Care Provider [phone] [phone] Reason for Visit * Reason Comments Chemotherapy Dacogen per Dr Gemini kennedy * Episode Based Medications (Routine) - Authorized Specialty Diagnoses / Procedures Referred By Contsumanth t Referred To Contact Diagnoses 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sion (HCC) Procedures MD DECITABINE INJECTION Nilton Senior MD [address] [place] [address] Anc Hem/Onc [place] [address] [place] [address] Referral ID Status Reason Start Date Expiration Date V isits Requested Visits Authorized [id number] Authorized 11/24/2023 11/07/2099 999 999 Encounter Details Date Type Department Care Team (Latest Contact Info) Description 01/17/2024 12:00 PM EDT Hem/Onc Treatment Hematology/Oncolog y Treatment, [address] [address] [facility], Chair10 Hem Onc [address] [place], [place] [address] [address] 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sion (HCC)*; Encounter for antineoplastic chemotherapy Allergies Active Allergy Reactions Criticality Noted Date [...] E11.9 1 Kit 0 05/25/2023 Active Pen [place] 32G X 4 MM Use as directed. [...] Hour (toPROL XL)Indications:Craig nary artery disease involving eastern shawnee tribe of [...] Strip 5 12/28/2023 Active OneTouch Delica Plus [id number] Use as directed. Use when checking blood [...] Passive Smoke Exposure: Current Smokeless Tobacco: Never Tobacco Cessation:Counseling Given: Not Answered Alcohol Use Standard Drinks/Week Comments No 0 [...] Sign Reading Time Taken Comments Blood Pressure 123/55 01/17/2024 2:37 PM EDT Pulse 62 01/17/2024 2:37 PM EDT Temperature 36.4 C (97.5 F) 01/17/2024 2:37 PM ED T Respiratory Rate 16 01/17/2024 2:37 PM EDT Oxygen Saturation 99% 01/17/2024 12: 54 PM EDT Inhaled Oxygen Concentration - - Weight 85.2 kg (187 lb 13.3 oz) 024 12:54 PM EDT Height - - Body Mass Index 28.56 01/12/2024 8:15 AM EST documented in this [...] as of this encounter Nursing Notes * Amy Baires RN - 01/17/2024 2:40 PM EDT Pt tolerated dacogen without any reported reaction or side effects. Vss. Pt request for peripheral iv site to remain intact for tomorrow infusion. Iv capped/locked and alcohol cap placed on line at this time. Pt instructed to keep area dry, out of direct water. Patient left IVC by ambulating. Unaccompanied. Voiced no complaints. Amy Baires RN 01/17/2024 2:48 PM * Amy Baires RN - 01/17/2024 2:15 PM EDT Pt in mead#21 present for dacogen per request. Chemotherapy/Immunotherapy agents: decitabine(dacogen) Consent for chemotherapy drug treatment complete, dated, and signed? yes, date - 11/25/23 Treatment lab parameters met? Yes Has treatment weight changed > than 10%? No Treatment preauthorized? Yes VITALS Filed Vitals: 01/17/24 1254 BP: 131/54 Pulse: 71 Resp: 16 Temp: 36.8 C (98.2 F) TempSrc: Tympanic SpO2: 99% Weight: 85.2 kg (187 lb 13.3 oz) Urine protein: N/A Patient education completed for treatment? Yes Blood transfusion consent signed and complete? Yes 12/07/23-pt current hgb 8.5 Pt does not meet parameters this date for blood products Return appointment scheduled? Yes Patient had provider [...] symptoms or adverse side effects during treatment. Pt inquiring about starting oral chemo pill. Tt sent to re: clarification. Per ,he is not planning to start oral chemo with pt, just dacogen; message communicated to patient at this time. Pt able to verbalize comprehension. [facility] Nursing Care Plan ID is not set. 01/17/2024 Knowledge Deficit Patient and Caregiver will demonstrate understanding. Assess current knowledge base. Assess level of understanding. Complete patient and caregiver learning assessment. Document Education in EHR. Reinforce education. Teach at level of understanding. Teach via preferred learning methods. Utilize teach back methodology. Goals: pt will be able to verbalize side effects of dacogen infusion Possible barriers to meeting goals: none Stability of the patient: Moderately stable - low risk of patient condition declining or worsening Summary regarding today's goals: Met: pt able to verbalize side effects of dacogen per Chantell handout Amy Baires RN documented in this encounter Miscellaneous Notes * Pt Handout (on AVS) - CHANTELL, PATIENT HANDOUT - 01/17/2024 2:21 PM EDT Images from the original note were not included. [id number] Decitabine Injection Brands: Dacogen Uses For treating cancer. Instructions This medicine is given as an IV injection into a vein. If you miss a dose, contact your doctor for instructions. Drug interactions can change how medicines work or increase risk for side effects. Tell your healthcare providers about all medicines taken. Include prescription and jvzr-ajf-qsfpsyc medicines, vitamins, and herbal medicines. Speak with your doctor or pharmacist before starting or stopping any medicine. Tell your doctor if symptoms do not get better or if they get worse. This medicine may affect your blood sugar levels. If you have diabetes, talk to your doctor before changing the dose of your diabetes medicine. Use effective control to avoid . Keep all appointments for medical exams and tests while on this medicine. Cautions Tell your doctor and pharmacist if you ever had an allergic reaction to a medicine. Some patients taking this medicine have experienced serious side effects. Please speak with your doctor to understand the risks and benefits associated with this medicine. There is an increased risk of bleeding while on this medicine, please tell your doctor or nurse if you notice any excessive bleeding or bruising. Watch for excessive bruising or bleeding. Contact your doctor if you notice any. This medicine may reduce your body's ability to fight infections. Avoid contact with people with colds, flu or other infections. Contact your doctor if you develop fever, cough, sore throat, or chills. Speak with your health care provider before receiving any vaccinations. Do not breastfeed while on this medicine. You may safely start 2 weeks after stoppingtreatment. This medicine can hurt a new baby in the womb. If you become while on this medicine, tell your doctor immediately. Your doctor may switch you to a different medicine. Women must use reliable forms of control while taking this medicine and for 6 months after stopping to prevent . Men with a female partner who is of childbearing age must use reliable control during sexual activity while taking this medicine and for 3 months after stopping to prevent . Side Effects The following is a list of some common side effects from this medicine. Please speak with your doctor about what you should do if you experience these or other side effects. agitated feeling or trouble sleeping constipation or diarrhea hair loss headaches high blood sugar pain, redness, swelling near injection joint or muscle pain nausea and vomiting stomach upset or abdominal pain Call your doctor or get medical help right away if you notice any of these more serious side effects: bleeding that is severe or takes longer to stop bloating shallow, irregular breathing confusion cough that does not go away lack of energy and tiredness fever or chills mouth sores or irritation pale or blue skin, lips or fingernails shortness of breath A few people may have an allergic reaction to this medicine. Symptoms can include difficulty breathing, skin rash, itching, swelling, or severe dizziness. If you notice any of these symptoms, seek medical help quickly. Extra Please speak with your doctor, nurse, or pharmacist if you have any questions about this medicine. [email or web address] IMPORTANT NOTE: This document tells you briefly how to take your medicine, but it does not tell youall there is to know about it. Your doctor or pharmacist may give you other documents about your medicine. Please talk to them if you have any questions. Always follow their advice. There is a more complete description of this medicine available in Spanish. Scan this code on your smartphone or tablet or use the web address below. You can also ask your pharmacist for a printout. If you have any questions, please ask your pharmacist. The display and use of this drug information is subject to Terms of Use. Copyright(c) 2022 [employer] 2873-7513 The [employer]. All rights reserved. This information is not intended as a substitute for professional medical care. Always follow your healthcare professional's instructions. documented in this encounter Plan of Treatment Upcoming Encounters Date Type Department Care Team (Late st Contact Info) Description 01/18/2024 11:30 AM EDT Hem/Onc Treatment Hematology/Oncology Treatment, [address] [place] [address] [facility], Chair4 Hem Onc [address] [place] [address], [place] [address] 01/19/2024 10:30 AM EDT Laboratory Laboratory, [address], [place] [address] [facility], Lab [address] [place] [address], [place] [address] 01/19/2024 11:30 AM EDT Hem/Onc Treatment Hematology/Oncology Treatment, [address], [place] [address] [facility], Chair11 Hem Onc [address] [place] [address], [place] [address] 01/20/2024 11:30 AM EDT Office Visit Hematology/Oncology, [address], [place] [address] Tasneem Bryant CRNP [address] [place] [address], [place] [address] 01/20/2024 12:00 PM EDT Hem/Onc Treatment Hematology/Oncology Treatment, [address], [place] [address] [facility], Chair3 Hem Onc [address] [place] [address], [place] [address] 01/21/2024 9:30 AM EDT Laboratory Laboratory, [address], [place] [address] [facility], Lab [address] [place] [address], [place] [address] 01/21/2024 10:30 AM EDT Hem/Onc Treatment Hematology/Oncology Treatment, [address] [address] [facility], Chair2 Hem Onc [address] [place] [address] 01/24/2024 10:00 AM EDT Laboratory Laboratory, [address] [phone] [facility], Lab [address] [place] [address] 01/24/2024 11:00 AM EDT Telemedicine Hematology/Oncology, [address] [address] Ortega Verde MD [address] [place] [address] Cart, Telemed [facility] Hem Onc Clinic [address] [place] [address] 01/24/2024 11:30 AM EDT Hem/Onc Treatment Hematology/Oncology Treatment, [address] [address] [facility], Chair1 Hem Onc [address] [place] [address] 01/26/2024 9:00 AM EDT Office Visit Pharmacy, [facility] [address] [facility] [place] [address] [place] [address] 01/31/2024 9:00 AM EDT Imaging Radiology [address] 132 [facility] [place] [address] 02/08/2024 12:30 PM EDT Office Visit Podiatry [address] [place] [phone] Nayan Franklin, DPJeffry [address] [place] [address] 02/09/2024 11:00 AM EDT Office Visit Palliative Medicine, [facility] [address] [facility] 5th [place] [address] Nati Easley PA-C [address] [place] [address] 02/10/2024 11:40 AM EDT Office Visit [facility], [place] [address] [address] [facility], [place] [address] Ivonne French PA-C [address] [facility], [place] [address] 03/14/2024 10:00 AM EDT Office Visit [facility], [place] [address] [address] [facility], [place] [address] Ivonne French PA-C [address] [facility], [place] [address] 04/18/2024 10:00 AM EDT Office Visit [facility], [place] [address] [address] [facility], [place] [address] Ivonne French PA-C [address] [facility], [place] [address] 05/10/2024 8:15 AM EDT Office [address] [address] Migel Ramires MD [address] [place] [address] 05/16/2024 10:00 AM EDT Office Visit [facility] [address] [place] [facility] [place] [phone] Ivonne French PA-C [address] [place] [address] Scheduled Procedures Name Priority Associated [...] Depression Screening 12/30/2024 12/30/2023 GFR 01/16/2025 01/17/2024, 0306/2024, 01/12/2024, Additional history exists P[employer]-EVERY 3 [...] this encounter Medical Devices Implanted Type Area Helicopter Mechanic Device Identifier Shelf Expiration Date Model / Serial / Lot Lens Intraoc 21.0 - [id number] - [id number] Implanted:Qty : 1 on 07/06/2017 by Luis Eduardo Cole MD at OR [facility] Left: Eye BAUSCH & LOMB 01/05/2022 [id number] / [id number] / Lens Intraoc 21.0 - [id number] - [id number] Implanted:Qty : 1 on 07/20/2017 by Luis Eduardo Cole MD at OR [facility] Right: Eye BAUSCH & LOMB 01/05/2022 [id number] / [id number] / Syringe Prolaryn Del 1.0cc - [id number] Implanted:Qty : 1 on 11/20/2019 by Amber Jain MD at [place] [facility] Right: Mouth [employer] 10/21/2021 [id number] / / [id number] Implant Silastic 7 Silicone Sw - [id number] Implanted:Qty : 1 on 05/28/2020 by Farhat Pate MD at OR [facility] Right: Throat PulseOn [id number] / / documented as of this encounter Visit Diagnoses Diagnosis 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sion (HCC)- Primary Encounter for antineoplastic chemotherapy documented in this encounter Administered Medications Active Administered Medications - up to 3 most recent administrations Medication Order MAR Action Action Date Dose Rate Site diphenhydrAMINE (Benadryl) inj 50 mg 50 mg, IV Push, ONCE PRN Other, Hypersensitivity Reaction, Starting on Wed01/17/24 at 1245, Until Wed01/18/24 at 1244, For 24 hours EPINEPHrine 1 MG/ML inj 0.3 mg 0.3 mg, Intramuscular, ONCE PRN Other, Hypersensitivity Reaction or Anaphylaxis, Starting on Wed01/17/24 at 1245, Until Wed01/18/24 at 1244, For 24 hours hEParin 100 UNIT/ML Lock Flush inj 500 Units 500 Units (5 mL), IV Lock, PRN Other, IV Flush, Starting on Wed01/17/24 at 1245, Until Wed01/18/24 at 124, For 24 hours, Do not flush if lock, PICC, or central line not in place; IV infusing or unable to flush. Hydrocortisone Sod Suc (PF) (Solu-Cortef) inj 100 mg 100 mg, IV Push, ONCE PRN Other, Hypersensitivity Reaction, Starting on Wed01/17/24 at 1245, Until Wed01/18/24 at 1244, For 24 hours NSS infusion Intravenous, at 50 mL/hr, PRN, Starting on Wed01/17/24 at 1400, Until Discontinued, Maintenance line Start Infusion 01/17/2024 12:53 PM EDT 50 mL/hr sodium chloride 0.9 % flush central line 10 mL 10 mL, IV Push, PRN Other, IV Flush, Starting on Wed01/17/24 at 1245, Until Wed01/18/24 at 1244, For 24 hours, Do not flush if lock, PICC, or central line not in place; IV infusing or unable to flush. Given 01/17/2024 2:45 PM EDT 10 mL Given 01/17/2024 12:47 PM EDT 10 mL Inactive Administered Medications - up to 3 most recent administrations Medication Order MAR Action Action Date Dose Rate Site Decitabine (Dacogen) 41.4 mg in NSS 100 mL infusion 41.4 mg (20 mg/m2 2.07 m2 Treatment Plan BSA from Recorded weight), IV Piggyback, ONCE, 1 dose, On Wed01/17/24 at 1400, Administer over 60 Minutes Start Infusion 01/17/2024 1:30 PM EDT 41.4 mg 100 mL/hr documented [...] the patient have Health Care Power of Agricultural Technician? No Code Status History Code Status [...] and were consensually agreed upon. Care Teams Server Security Administrator Relationship Specialty Start Date End Date Ivonne rFench PA-C [address] [facility] [place] [address] PCP - General Physician Sales Expert 07/24/21 documented as of this encounter
--- OUTSIDE RECORDS SUMMARY | 2024-01-29 21:22 | External Medical Summary | Summary of Care ---
Author Name Unknown Organization [facility] Address [address] [place] [address] Phone [phone] Care Team Providers Care Mission Assessment Specialist Name Role Phone Ivonne French PA-C Primary Care Provider [phone] Reason for Visit * Reason Comments Chemotherapy Dacogen per Dr Gemini kennedy * Episode Based Medications (Routine) - Authorized Specialty Diagnoses / Procedures Referred By Contsumanth t Referred To Contact Diagnoses 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sion (HCC) Procedures MA DECITABINE INJECTION Nilton Senior MD [address] [place] [address] Anc Hem/Onc [place] [address] [place] [address] Referral ID Status Reason Start Date Expiration Date V isits Requested Visits Authorized [id number] Authorized 11/24/2023 11/07/2099 999 999 Encounter Details Date Type Department Care Team (Latest Contact Info) Description 01/17/2024 12:00 PM EDT Hem/Onc Treatment Hematology/Oncolog y Treatment, [address] [address] [facility], Chair10 Hem Onc [address] [place], [place] [address] [address] 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sion [...] E11.9 1 Kit 0 05/25/2023 Active Pen [place] 32G X 4 MM Use as directed. 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 Use when checking blood [...] - 01/17/2024 2:15 PM EDT Pt in cre[place]#21 present for dacogen per request. Chemotherapy/Immunotherapy agents: [...] this time. Pt able to verbalize comprehension. [facility] Nursing Care Plan ID is not [...] from the original note were not included. [id number] Decitabine Injection Brands: Dacogen Uses For treating cancer. Instructions This medicine is given as an IV injection into a vein. If you miss a dose, contact your doctor for instructions. Drug interactions can change how medicines work or increase risk for side effects. Tell your healthcare providers about all medicines taken. Include prescription and wdjm-sqj-hrtdfyy medicines, vitamins, and herbal medicines. Speak with [...] you have any questions about this medicine. [email or web address] IMPORTANT NOTE: This document tells you briefly how to take your medicine, but it does not tell youall there is to know about it. Your doctor or pharmacist may give you other documents about your medicine. Please talk to them if you have any questions. Always follow their advice. There is a more complete description of this medicine available in Italian. Scan this code on your smartphone or tablet or use the web address below. You can also ask your pharmacist for a printout. If you have any questions, please ask your pharmacist. The display and use of this drug information is subject to Terms of Use. Copyright(c) 2022 [employer]. 8059-5522 The [employer]. All rights reserved. This information is not intended as a substitute for professional medical care. Always follow your healthcare professional's instructions. documented in this encounter Plan of Treatment Upcoming Encounters Date Type Department Care Team (Late st Contact Info) Description 01/18/2024 11:30 AM EDT Hem/Onc Treatment Hematology/Oncology Treatment, [address] [place] [address] [facility], Chair4 Hem Onc [address] [place] [address], [place] [address] 01/19/2024 10:30 AM EDT Laboratory Laboratory, [address], [place] [address] [facility], Lab [address] [place] [address], [place] [address] 01/19/2024 11:30 AM EDT Hem/Onc Treatment Hematology/Oncology Treatment, [address], [place] [address] [facility], Chair11 Hem Onc [address] [place] [address], [place] [address] 01/20/2024 11:30 AM EDT Office Visit Hematology/Oncology, [address], [place] [address] Tasneem Bryant CRNP [address] [place] [address], [place] [address] 01/20/2024 12:00 PM EDT Hem/Onc Treatment Hematology/Oncology Treatment, [address], [place] [address] [facility], Chair3 Hem Onc [address] [place] [address], [place] [address] 01/21/2024 9:30 AM EDT Laboratory Laboratory, [address], [place] [address] [facility], Lab [address] [place] [address], [place] [address] 01/21/2024 10:30 AM EDT Hem/Onc Treatment Hematology/Oncology Treatment, [address] [address] [facility], Chair2 Hem Onc [address] [place] [address] 01/24/2024 10:00 AM EDT Laboratory Laboratory, [address] [phone] [facility], Lab [address] [place] [address] 01/24/2024 11:00 AM EDT Telemedicine Hematology/Oncology, [address] [address] Ortega Verde MD [address] [place] [address] Cart, Telemed [facility] Hem Onc Clinic [address] [place] [address] 01/24/2024 11:30 AM EDT Hem/Onc Treatment Hematology/Oncology Treatment, [address] [address] [facility], Chair1 Hem Onc [address] [place] [address] 01/26/2024 9:00 AM EDT Office Visit Pharmacy, [facility] [address] [facility] [place] [address] [place] [address] 01/31/2024 9:00 AM EDT Imaging Radiology [address] 132 [facility] [place] [address] 02/08/2024 12:30 PM EDT Office Visit Podiatry [address] [place] [phone] Nayan Franklin, DPJeffry [address] [place] [address] 02/09/2024 11:00 AM EDT Office Visit Palliative Medicine, [facility] [address] [facility] 5th [place] [address] Nati Easley PA-C [address] [place] [address] 02/10/2024 11:40 AM EDT Office Visit [facility], [place] [address] [address] [facility], [place] [address] Ivonne French PA-C [address] [facility], [place] [address] 03/14/2024 10:00 AM EDT Office Visit [facility], [place] [address] [address] [facility], [place] [address] Ivonne French PA-C [address] [facility], [place] [address] 04/18/2024 10:00 AM EDT Office Visit [facility], [place] [address] [address] [facility], [place] [address] Ivonne French PA-C [address] [facility], [place] [address] 05/10/2024 8:15 AM EDT Office [address] [address] Migel Ramires MD [address] [place] [address] 05/16/2024 10:00 AM EDT Office Visit [facility] [address] [place] [facility] [place] [phone] Ivonne French PA-C [address] [place] [address] Scheduled Procedures Name Priority Associated [...] this encounter Medical Devices Implanted Type Area Load Out Supervisor Device Identifier Shelf Expiration Date Model / Serial / Lot Lens Intraoc 21.0 - [id number] - [id number] Implanted:Qty : 1 on 07/06/2017 by Luis Eduardo Cole MD at OR [facility] Left: Eye BAUSCH & LOMB 01/05/2022 [id number] / [id number] / Lens Intraoc 21.0 - [id number] - [id number] Implanted:Qty : 1 on 07/20/2017 by Luis Eduardo Cole MD at OR [facility] Right: Eye BAUSCH & LOMB 01/05/2022 [id number] / [id number] / Syringe Prolaryn Del 1.0cc - [id number] Implanted:Qty : 1 on 11/20/2019 by Amber Jain MD at OR [facility] Right: Mouth [employer] 10/21/2021 [id number] / / [id number] Implant Silastic 7 Silicone Sw - [id number] Implanted:Qty : 1 on 05/28/2020 by Farhat Pate MD at OR [facility] Right: Throat Loan[employer]ics [id number] / / documented as of this [...] the patient have Health Care Power of Evp Marketing? No Code Status History Code Status Date [...] and were consensually agreed upon. Care Teams Mission Assessment Specialist Relationship Specialty Start Date End Date Ivonne French PA-C [address] [facility] [place] [address] PCP - General Physician Rv Technician 07/24/21 documented as of this encounter
--- OUTSIDE RECORDS SUMMARY | 2024-01-29 21:22 | External Medical Summary | Summary of Care ---
Author Name Unknown Organization [facility] Address [address] [place] [address] Phone [phone] Care Team Providers Care Streets And Buildings Decorator Name Role Phone Ivonne French PA-C Primary Care Provider [phone] Reason for Visit * Reason Comments Follow Up Encounter Details Date Type Department Care Team (Latest Contact Info) Description 01/17/2024 11:30 AM EDT Office Visit Hematology/Oncology , [facility] [address] [place] [address] Ortega Verde MD [address] [place] [address] 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sion (HCC)*; Encounter for chemotherapy management; Encounter for antineoplastic chemotherapy; Encounter to discuss test results; Encounter to discuss treatment options; Constipation, unspecified constipation type Allergies Active Allergy [...] E11.9 1 Kit 0 05/25/2023 Active Pen Rice 32G X 4 MM Use as directed. [...] Hour (toPROL XL)Indications:Craig nary artery disease involving dot lake coronary artery of dot lake heart without angina pectoris Take 2 Tablets by mouth daily in the morning. 135 Tablet 12/28/2023 Active Acyclovir 400 MG Oral Tablet (Zovirax) Take 1 Tablet by mouth in the morning and 1 Tablet before bedtime. 60 Tablet 3 12/28/2023 Active levoFLOXacin 500 MG Oral Tablet (Levaquin) Take 1 Tablet by mouth daily in the morning. 30 Tablet 1 12/29/2023 Active Modern Family DoctorTouch Verio In Vitro Strip (Glucose Blood) Use when checking blood glucose levels 4 times per day 200 Strip 12/28/2023 Active Modern Family DoctorTouch Delica Plus [id number] Use as directed. Use when checking blood glucose levels 4 times per day 200 Each 12/28/2023 Active BD Pen Needle Ellie U/F [...] Sign Reading Time Taken Comments Blood Pressure 131/54 01/17/2024 11:21 AM EDT Pulse 71 01/17/2024 11:21 AM EDT Temperature 36.8 C (98.2 F) 01/17/2024 1 1:21 AM EDT Respiratory Rate - - Oxygen Saturation 99% 01/17/2024 11: 21 AM EDT Inhaled Oxygen Concentration - - Weight 85.2 kg (187 lb 14.4 oz) 024 11:21 AM EDT Height - - Body Mass Index 28.57 01/12/2024 8:15 AM EST documented in this [...] as of this encounter Progress Notes * Ortega Verde MD - 01/17/2024 11:56 AM EDT Images from the original note were not included. 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 Molecular: [...] Chief Complaint Patient presents with Follow Up Treatment Summary 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sion (HCC) 11/24/2023 Initial Diagnosis 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sion (HCC) 11/25/2023 - Chemotherapy IP/OP Decitabine and Venetoclax with Inpatient ramp-up (AML) [id number] 01/03/2024 - Supportive Therapy SCP - PACKED RED BLOOD CELLS AND PLATELETS FOR ADULTS REQUIRING FREQUENT TRANSFUSIONS (3 TIMES A WEEK FOR 3 MONTHS) [id number] Plan Provider: Ortega Verde MD Treatment goal: [...] was reviewed today in Hematology tumor board. 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 Patient is a , she lives alone. She lives about 1 hour away from [facility].Currently on disability. Her brother lives 10 minutes away from her. She had history of partial bigtoe amputation, and she started using cane recently. Patient was initially evaluated by Dr. Rice, then by Dr. Senior in [place], then admitted to the hospital, and coming now to [facility] follow-up with me as an outpatient. He had prolonged hospital stay, with the following hospital course 11/24/2023 - 12/28/2023 (34 days) : "ADMISSION HISTORY & PHYSICAL EXAM (focused): Ms. Resendez is a 58 y/o female who lives in [place] by herself. Her PMH includes DM2 on insulin with partial great toe amputation, HTN, dyslipidemia, multinodular goiter s/p total thyroidectomy with resulting postsurgical hypothyroidism, enchondroma femur, paralytic ptosis left eyelid, HTN/CAD s/p NE years ago, s/p ischemic stroke x 2 [...] for last 1 year. She states her pairer inspector is aware of these sx and they [...] as much as possible to help prevent NE. her blood counts dropped as expected and [...] discharged her home with close follow-up at [facility]." Patient is still feel weak after hospital discharge. She is very confused about her disease, prognosis, and treatment options. Review of Systems: Negative except as mentioned above Past Medical History: Diagnosis Date Diabetic neuropathy [...] DIAGNOSTIC (RECTUM) 12/16/2016 adenomatous polyps, repeat 5 yrs/[facility] COLONOSCOPY, DIAGNOSTIC (RECTUM) 06/03/2022 diverticulosis, fair prep, repeat 5 yrs / [facility] EGD, FLEXIBLE, DIAGNOSTIC 12/16/2016 normal bx/[facility] EGD, FLEXIBLE, W/BIOPSY 07/30/2010 esophagitis, await BX LARYNGOPLASTY MEDIALIZATION UNILATERAL Right 05/28/2020 LARYNGOPLASTY, MEDIALIZATION UNILATERAL performed by Farhat Pate MD at [place] [facility] LARYNGOSCOPY, VOCAL CORD INJECTION Right 11/20/2019 LARYNGOSCOPY DIRECT INJECTION VOCAL CORD WITH MICROSCOPE performed by Amber Jain MD at [facility] MISCELLANEOUS ORDER ([facility] ONLY) Bilateral 11/24/2017 Reinheimer-bleph/levators-ou OTHER (3 times) 8 inch benign tumor removed from L femur; regrew x 3 OTHER Removal of a benign LN from L axilla REMOVAL OF THYROID GLAND 10/23/2009 total thyroidectomy 10/23/09, [facility], Dr. Vazquez REMOVE CATARACT, INSERT LENS PROSTH Right 07/20/2017 right EXTRACAPSULAR CATARACT REMOVAL WITH INTRAOCULAR LENS performed by Luis Eduardo Cole MD at OR [facility] REMOVE CATARACT, INSERT LENS PROSTH Left 07/06/2017 left EXTRACAPSULAR CATARACT REMOVAL WITH INTRAOCULAR LENS performed by Luis Eduardo Cole MD at OR [facility] REMOVE GALLBLADDER 2004 appox date Social History Tobacco Use Smoking status: Never Passive exposure: Current Smokeless tobacco: Never Vaping Use Vaping Use: Never used Substance Use Topics Alcohol use: No Drug use: No Family History Problem Relation Age of Onset Ovarian cancer Mother Multiple Sclerosis Mother Heart Disorder Father Diabetes Brother Diabetes Brother Multiple Sclerosis Grandmother (Maternal) Glaucoma Grandmother (Maternal) Thyroid Disorder Daughter Stroke No significant family history Eye Problems No significant family history Patient denies HX AMD, retinal detachments or blindness Breast Cancer No significant family history Current Outpatient Medications Medication Sig Dispense Refill [...] a day E11.9 1 Kit 0 Pen Rice 32G X 4 MM Use as directed. [...] day 200 Strip 5 OneTouch Delica Plus [id number] Use as directed. Use when checking blood [...] 10 units 21 mL 3 Magic Swizzle (Kmizmfvex-Ullujmep-Azeldy) oral solution Swish and spit 15 mL [...] No current facility-administered medications for this visit. Review of patient's allergies indicates: Allergen Reactions Tape [Adhesive Tape] Glue off the old style medical tape. Physical exam: Vitals 01/07/2024 01/10/2024 01/11/2024 01/12/2024 01/13/2024 15:36 01/17/2024 11:21 Vitals BP 125/62 144/64 111/66 131/54 Pulse 63 64 75 71 Resp 18 16 16 Temp 36.1 C (97 F) 36.2 C (97.2 F) 36.4 C (97.6 F) 36.8 C (98.2 F) SpO2 96 % 99 % 94 % 99 % Weight 193 lb 9.6 oz 193 lb 12.6 oz 189 lb 8 oz 187 lb 14.4 oz Height 1.727 m (5' 8") 1.727 m (5' 8") BMI 29.66 28.82 Notes Notes Patient Instructions Addendum Francesca Beckham RN Progress Notes Signed Kathy Borges MD Telephone Encounter Signed Zahraa Rayo OSA Telephone Encounter Signed Austin Mckenna MSW Progress Notes Signed Carolina Gustafson RN Details More values are hidden. Newest values shown. Go to activity for more data. Wt Readings from Last 6 Encounters: 01/17/24 85.2 kg (187 lb 14.4 oz) 01/12/24 86 kg (189 lb 8 oz) 01/10/24 87.9 kg (193 lb 12.6 oz) 01/10/24 87.9 kg (193 lb 12.8 oz) 01/07/24 87.8 kg (193 lb 9.6 oz) 01/07/24 88.5 kg (195 lb) Patient is comfortable and privacy is respected General: alert and no distress Head: Normocephalic, No masses, lesions, tenderness or abnormalities Rest of exam can not be performed because of video visit. Labs: Results for orders placed or performed in visit on 01/17/24 CBC Result Value Ref Range WBC 0.73 (LL) 4.00 - 10.80 K/uL RBC 2.83 3.85 - 5.15 M/uL HGB 8.5 (L) 12.0 - 15.3 g/dL HCT 24.7 (L) 36.0 - 45.2 % MCV 87.3 81.5 - 97.5 fL MCH 30.0 27.0 - 34.0 pg MCHC 34.4 32.0 - 36.0 g/dL RDW 13.4 11.5 - 15.5 % PLT 127 (L) 140 - 400 K/uL MPV 9.3 6.6 - 11.1 fL nRBCs 3 (H) <=0 /100 WBCs *Note: Due to a large number of results and/or encounters for the requested time period, some results have not been displayed. A complete set of results can be found in Results Review. Imaging: XR CHEST 1 VIEW Result Date: 12/20/2023 [...] This exam was submitted to the radiology general office dispatcher worklist and the ordering provider will be notified that the final report is available in EPIC. XR CHEST 1 VIEW Result Date: 12/08/2023 IMPRESSION 1. Recommend contrast-enhanced chest CT or CT PE, as above. MRI FOOT LEFT W WO CONTRAST Result Date: 10/01/2023 IMPRESSION No evidence of osteomyelitis or abscess. 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 Molecular: [...] with bilateral lower extremity edema Pancytopenia Plan: Her case was discussed earlier today in Hematology tumor board, I reviewed her slides myself, discussed with the team. BMB from 01/11 showed non remission marrow. In one area there is an increase in the number of blasts as well as an occasional scattered islands of erythroid activity. A CD34 stain has approximately 30% positive cells in the background. Again, I informed patient that unfortunately she has aggressive disease with TP53 mutation, and in the setting of significant comorbidities and poor tolerance, she will not be able to tolerate intensive chemotherapy with venetoclax plus decitabine. Case discussed earlier this morning in tumor board, and recommendation is to proceed with single agent decitabine. Also I offered her best supportive care, but patient prefers to proceed with decitabine for now, and based on her tolerance will decide about next step in her management. Patient is at high-risk of cytopenias, infection, worsening of cardiac condition, hospitalization, and deconditioning. Will continue monitor counts every other day, and transfuse for hemoglobin less than 8 (cardiac, and symptomatic patient). BMB in 4 weeks Continue aspirin, with [...] (Shine MOHAN,et al. N Engl J Med 2016;375:4108-5493). Response may not be evident before 3-4 cycles of treatmentwith HMAs (ie, azacitidine, decitabine). Continue HMA treatment until progression if patient is tolerating therapy. Similar delays in response are likely with novel agents in a clinical trial, but endpoints will be defined by the protocol. Plan IR biopsy Check-out note: No PRBCs transfusion today IR referral for BMB in 4 weeks Decitabine IV Q daily this week CBC/DIff, Type and screen QOD with Hb GOAL of 8. CMP, LDH and uric acid weekly RTC with Tasneem in 3 days. RTC with Mehreen in 1 week. Less This chart was completed in part utilizing [employer] Speech Voice Recognition Software. Grammatical errors, random word insertions, pronoun errors, and incomplete sentences are an occasional consequence of this system due to software limitations, ambient noise, and hardware issues. Any formal questions or concerns about the content, text, or information contained within the body of this dictation should be directly addressed to the provider for clarification. I spent a total time of 80 minutes on the date of service in preparation, delivery, and documentation of the care provided, excluding any time spent in the performance of separately billed services. documented in this encounter Nursing Notes * Rogelio Orozco MED ASSIST - 01/17/2024 11:26 AM EDT Patient identified by name and [...] activate it for you? ALREADY ACTIVE BP 131/54 (BP Site: Right Arm, BP Position: Sitting, BP Cuff Size: Regular) | Pulse 71 | Temp 36.8 C (98.2 F) (Tympanic) | Wt 85.2 kg (187 lb 14.4 oz) | LMP 09/08/2016 | SpO2 99% | BMI 28.57 kg/m | BSA 2.02 m Patient was [...] Office Visit Pharmacy, [facility] [address] [facility] [place] [address] [facility] [address] [place] [address] 01/31/2024 9:00 AM EDT Imaging Radiology [facility] [address] [facility] [address] [place] [address] 02/08/2024 12:30 PM EDT Office Visit Podiatry [address] [place] [id number] Nayan Franklin, EVANGELINA [facility] [place] [address] 02/09/2024 11:00 AM EDT Office Visit Palliative Medicine, [facility] [address] [facility] 5th Floor [place] [address] Nati Easley PA-C [address] [place] [address] 02/10/2024 11:40 AM EDT Office Visit [facility] [place], [place] [address] [facility], [place] [address] Ivonne French PA-C [address] [facility], [place] [address] 03/14/2024 10:00 AM EDT Office Visit [facility] [place], [place] [address] [facility], [place] [address] Ivonne French PA-C [address] [facility], [place] [address] 04/18/2024 10:00 AM EDT Office Visit [facility] [place], [place] [address] [facility], [place] [address] Ivonne French PA-C [address] [facility], [place] [address] 05/10/2024 8:15 AM EDT Office Visit Ophthalmology, [place] [address] [facility] [place] [address] Migel Ramires MD [facility] [place] [address] 05/16/2024 10:00 AM EDT Office Visit [facility], [place] [address] [facility], [place] [address] Ivonne French PA-C [address] [place] [address] Scheduled Orders Name Type Priority Associated Diagnoses Orde r Schedule IR BIOPSY Medical Imaging Routine 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sion (HCC) Expected: 02/16/2024, Expires: 02/16/2025 Scheduled Procedures Name Priority Associated Diagnoses Date/Ti [...] Depression Screening 12/30/2024 12/30/2023 GFR 01/16/2025 01/17/2024, 03/0 06/2024, 01/12/2024, Additional history exists PAP SMEAR-EVERY [...] this encounter Medical Devices Implanted Type Area Production Control Planner Device Identifier Shelf Expiration Date Model / Serial / Lot Lens Intraoc 21.0 - [id number] - [id number] Implanted:Qty : 1 on 07/06/2017 by Luis Eduardo Cole MD at OR [facility] Left: Eye [employer] 01/05/2022 [id number] / [id number] / Lens Intraoc 21.0 - [id number] - [id number] Implanted:Qty : 1 on 07/20/2017 by Luis Eduardo Cole MD at OR [facility] Right: Eye [employer] 01/05/2022 [id number] / [id number] / Syringe Prolaryn Del 1.0cc - [id number] Implanted:Qty : 1 on 11/20/2019 by Amber Jain MD at [place] [facility] Right: Mouth [employer] 10/21/2021 [id number] / / [id number] Implant Silastic 7 Silicone Sw - [id number] Implanted:Qty : 1 on 05/28/2020 by Farhat Pate MD at [place] [facility] Right: Throat [employer] [id number] / / documented as of this encounter Visit Diagnoses Diagnosis 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sion (HCC)- Primary Encounter for chemotherapy management Encounter for antineoplastic chemotherapy Encounter to discuss test results Other specified counseling Encounter to discuss treatment options Other specified counseling Constipation, unspecified constipation type [...] the patient have Health Care Power of Loan Servicing Specialist? No Code Status History Code Status Date [...] and were consensually agreed upon. Care Teams Streets And Buildings Decorator Relationship Specialty Start Date End Date Ivonne French PA-C [address] [facility] [place] [address] PCP - General Physician Gear Repair Supervisor 07/24/21 documented as of this encounter
--- OUTSIDE RECORDS SUMMARY | 2024-01-29 21:22 | External Medical Summary ---
Author Name Unknown Address Unknown Organization K1F:[facility] - [address] [place] [address] Laboratory Report Ordering Provider Test Date Status BRADLY BERMAN 01/17/2024 11:16:38 Final Observation Date Value Abnormality Reference (Units ) Status LDH 01/17/2024 11:16:38 200 <=250 (U/L ) Final Performing Location [facility] - [address] [place] [address]
--- OUTSIDE RECORDS SUMMARY | 2024-01-29 21:22 | External Medical Summary ---
Author Name Unknown Address Unknown Organization K1F:[facility] - [address] [place] [address] Laboratory Report Ordering Provider Test Date Status BRADLY BERMAN 01/17/2024 11:16:38 Final Observation Date Value Abnormality Reference (Units ) Status WBC, Total 01/17/2024 11:16:38 0.73 Below lower panic limits 4.00-10.80 (K/uL) Final RBC 01/17/2024 11:16:38 2.83 3.85-5.15 (M/uL) Final Hemoglobin 01/17/2024 11:16:38 8.5 Below low normal 12.0-15.3 (g/dL) Final HCT 01/17/2024 11:16:38 24.7 Below low normal 36.0-45.2 (%) Final MCV 01/17/2024 11:16:38 87.3 81.5-97.5 (fL) Final MCH 01/17/2024 11:16:38 30.0 27.0-34.0 (pg) Final MCHC 01/17/2024 11:16:38 34.4 32.0-36.0 (g/dL) Final RDW 01/17/2024 11:16:38 13.4 11.5-15.5 (%) Final Platelets 01/17/2024 11:16:38 127 Below low normal 140-400 (K/uL) Final MPV 01/17/2024 11:16:38 9.3 6.6-11.1 (fL) Final Nucleated erythrocytes/100 leukocytes [Ratio] in Blood by Automated count 01/17/2024 11:16:38 3 Above high normal <=0 (/100 WBCs) Final Performing Location LAB[facility]ORY [facility] - [address] [place] [address]
--- OUTSIDE RECORDS SUMMARY | 2024-01-29 21:22 | External Medical Summary ---
Author Name Unknown Address Unknown Organization K1F:[facility] - [address] [place] [address] Laboratory Report Ordering Provider Test Date Status BRADLY BERMAN 01/17/2024 11:16:38 Final Observation Date Value Abnormality Reference (Units ) Status SYNC LEUKOCYTES IN BLOOD BY AUTOMATED COUNT 01/17/2024 11:16:38 0.73 Below lower panic limits 4.00-10.80 (K/uL) Final Neutrophils/100 leukocytes in Blood by Manual count 01/17/2024 11:16:38 5.0 Below low normal 40.0-75.0 (%) Final Lymphocytes/100 leukocytes in Blood by Manual count 01/17/2024 11:16:38 92.0 Above high normal 18.0-42.0 (%) Final Monocytes/100 leukocytes in Blood by Manual count 01/17/2024 11:16:38 2.0 1.0-11.0 (%) Final Myelocytes/100 leukocytes in Blood by Manual count 01/17/2024 11:16:38 1.0 Above high normal <=0.0 (%) Final Neutrophils [#/volume] in Blood by Manual count 01/17/2024 11:16:38 0.04 Below low normal 1.80-7.70 (K/uL) Final Lymphocytes [#/volume] in Blood by Manual count 01/17/2024 11:16:38 0.67 Below low normal 1.00-4.80 (K/uL) Final Monocytes [#/volume] in Blood by Manual count 01/17/2024 11:16:38 0.01 0.00-1.10 (K/uL) Final Myelocytes [#/volume] in Blood by Manual count 01/17/2024 11:16:38 0.01 Above high normal <=0.00 (K/uL) Final Performing Location [facility] - [address] [facility] [address] [place] [address]
--- OUTSIDE RECORDS SUMMARY | 2024-01-29 21:22 | External Medical Summary ---
Author Name Unknown Address Unknown Organization K1F[facility] [address] [facility] [place] [address] Laboratory Report Ordering Provider Test Date Status BRADLY BERMAN 01/17/2024 11:16:38 Final Observation Date Value Abnormality Reference (Units ) Status BUN 01/17/2024 11:16:38 23 Above high normal 6-20 (mg/dL) Final Creatinine 01/17/2024 11:16:38 0.9 0.5-1.0 (mg/dL) Final Glomerular filtration rate/1.73 sq M.predicted [Volume Rate/Area] in Serum, Plasma or Blood by Creatinine-based formula (CKD-EPI) 01/17/2024 11:16:38 71 >=60 (mL/min) Final eGFR is calculated based on the CKD-EPI 2020 equation SODIUM 01/17/2024 11:16:38 139 135-146 (m mol/L) Final Potassium 01/17/2024 11:16:38 4.6 3.5-5.1 (m mol/L) Final Cl 01/17/2024 11:16:38 100 98-107 (mm ol/L) Final CO2 01/17/2024 11:16:38 28 22-32 (mmo l/L) Final Anion gap 01/17/2024 11:16:38 11 7-15 (mmol /L) Final Glucose 01/17/2024 11:16:38 301 Above high normal 70 -120 (mg/dL) Final Albumin 01/17/2024 11:16:38 3.6 Below low normal 3.8 -5.0 (g/dL) Final AST (Aspartate aminotransferase) 01/17/2024 11:16:38 32 10-35 (U/L) Fin al Alk Phos 01/17/2024 11:16:38 131 Above high normal 35 -130 (U/L) Final Bilirubin, Total 01/17/2024 11:16:38 0.4 <=1 .2 (mg/dL) Final Calcium 01/17/2024 11:16:38 8.8 8.4-10.2 ( mg/dL) Final Protein 01/17/2024 11:16:38 7.1 6.0-8.3 (g /dL) Final ALT (Alanine aminotransferase) 01/17/2024 11:16:38 35 10-35 (U/L) Colin lee Performing Location LABORATORY [facility] - [address] [place], [place] [address]j[place] [address]
--- OUTSIDE RECORDS SUMMARY | 2024-01-29 21:22 | External Medical Summary ---
Author Name Unknown Address Unknown Organization [facility] [address] [facility] [place] [address] Laboratory Report Ordering Provider Test Date Status BRADLY BERMAN 01/19/2024 10:25:50 Final Observation Date Value Abnormality Reference (Units ) Status BUN 01/19/2024 10:25:50 17 6-20 (mg/dL) Final Creatinine 01/19/2024 10:25:50 0.9 0.5-1.0 (mg/dL) Final Glomerular filtration rate/1.73 sq M.predicted [Volume Rate/Area] in Serum, Plasma or Blood by Creatinine-based formula (CKD-EPI) 01/19/2024 10:25:50 75 >=60 (mL/min) Final eGFR is calculated based on the CKD-EPI 2020 equation SODIUM 01/19/2024 10:25:50 136 135-146 (m mol/L) Final Potassium 01/19/2024 10:25:50 4.0 3.5-5.1 (m mol/L) Final Cl 01/19/2024 10:25:50 97 Below low normal 98- 107 (mmol/L) Final CO2 01/19/2024 10:25:50 29 22-32 (mmo l/L) Final Anion gap 01/19/2024 10:25:50 10 7-15 (mmol /L) Final Glucose 01/19/2024 10:25:50 333 Above high normal 70 -120 (mg/dL) Final Albumin 01/19/2024 10:25:50 3.9 3.8-5.0 (g /dL) Final AST (Aspartate aminotransferase) 01/19/2024 10:25:50 44 Above high normal 10-35 (U/L) Final Alk Phos 01/19/2024 10:25:50 141 Above high normal 35 -130 (U/L) Final Bilirubin, Total 01/19/2024 10:25:50 0.5 <=1 .2 (mg/dL) Final Calcium 01/19/2024 10:25:50 8.7 8.4-10.2 ( mg/dL) Final Protein 01/19/2024 10:25:50 7.5 6.0-8.3 (g /dL) Final ALT (Alanine aminotransferase) 01/19/2024 10:25:50 46 Above high normal 10-35 (U/L) Final Performing Location LABORATORY [facility] - [facility] [place] [address]
--- OUTSIDE RECORDS SUMMARY | 2024-01-29 21:22 | External Medical Summary | Summary of Care ---
Author Name Unknown Organization [facility] Address [address] [place] [address] Phone [phone] Care Team Providers Care Patternator Name Role Phone Ivonne French PA-C Primary Care Provider [phone] Reason for Visit * Reason Onset Date Comments Scheduling 01/18/2024 Encounter Details Date Type Department Care Team (Late st Contact Info) Description 01/18/2024 Telephone Hematology Oncology [facility] [address] [place] [address] Ortega Verde MD [address] [place] [address] Scheduling Allergies Active Allergy Reactions [...] E11.9 1 Kit 0 05/25/2023 Active Pen [place] 32G X 4 MM Use as directed. 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 Use when checking blood [...] Encounter - Maria R Agosto OSA - 01/18/2024 10:26 AM EDT Spoke to patient to schedule the Bone marrow biopsy but she was in route to the hospital for chemo today so I told her I would call her later today to get that scheduled. documented in this encounter Plan of Treatment Upcoming Encounters Date Type Department Care Team (Late st Contact Info) Description 01/18/2024 11:30 AM EDT Hem/Onc Treatment Hematology/Oncology Treatment, [address] [place] [address] [facility], Chair4 Hem Onc [address] [place] [address] [place] [address] 01/19/2024 10:30 AM EDT Laboratory Laboratory, [address] [place] [address] [facility], Lab [address] [place] [address] 01/19/2024 11:30 AM EDT Hem/Onc Treatment Hematology/Oncology Treatment, [address] [address] [facility], Chair11 Hem Onc [address] [place], [place] [address] [address] 01/20/2024 11:30 AM EDT Office Visit Hematology/Oncology, [address] [address] Tasneem Bryant CRNP [address] [place] [address] [place] [address] 01/20/2024 12:00 PM EDT Hem/Onc Treatment Hematology/Oncology Treatment, [address], [place] [address] [facility], Chair3 Hem Onc [address] [place] [address] 01/21/2024 9:30 AM EDT Laboratory Laboratory, [address] [place] [address] [facility], Lab [address] [place] [address] 01/21/2024 10:30 AM EDT Hem/Onc Treatment Hematology/Oncology Treatment, [address] [place] [address] [facility], Chair2 Hem Onc [address] [place] [address], [place] [address] 01/24/2024 10:00 AM EDT Laboratory Laboratory, [address] [place] [phone] [facility], Lab [address] [place] [address] 01/24/2024 11:00 AM EDT Telemedicine Hematology/Oncology, [address] [place] [address] Ortega Verde MD [address] [place] [address] Alexandra Mcguireed [facility] Hem Onc Clinic [address] [place] [address], [place] [address] 01/24/2024 11:30 AM EDT Hem/Onc Treatment Hematology/Oncology Treatment, [address] [address] [facility], Chair1 Hem Onc [address] [place] [address] 01/26/2024 9:00 AM EDT Office Visit Pharmacy, [facility] 132 [facility] [place] [address] [facility] 132 [facility] [place] [address] 01/31/2024 9:00 AM EDT Imaging Radiology [facility] 1st [facility] 132 [facility] [place] [address] 02/08/2024 12:30 PM EDT Office Visit Podiatry [address] [place] [address] Nayan Franklin, [place] [address] [place] [address] 02/09/2024 11:00 AM EDT Office Visit Palliative Medicine, [facility] 400 [facility] 5th Floor [facility] [place] [address] Nati Easley PA-C [address] [place] [address] 02/10/2024 11:40 AM EDT [address] [address] Ivonne French PA-C [address] [facility] [place] [address] 03/14/2024 10:00 AM EDT Office [address] [phone] Ivonne French PA-C [address] [facility] [place] [address] 04/18/2024 10:00 AM EDT Office Visit [facility] [address] [facility], [place] [address] Ivonne French PA-C [address] [facility], [place] [address] 05/10/2024 8:15 AM EDT Office Visit Ophthalmology, [place] [facility] [place] [address] Migel Ramires MD 21 [place] [address] 05/16/2024 10:00 AM EDT Office Visit [facility] [address] [facility] [phone] Ivonne French PA-C [address] [facility], [place] [id number] Scheduled Procedures Name Priority Associated Diagnoses Date/Ti [...] 01/21/2022, Additional history exists HbA1c 05/09/2024 11/09/2023, 080 06/2023, 04/27/2023, Additional history exists Albumin/Creatinine Ratio [...] this encounter Medical Devices Implanted Type Area Wound Care Nurse Device Identifier Shelf Expiration Date Model / Serial / Lot Lens Intraoc 21.0 - [id number] - [id number] Implanted:Qty : 1 on 07/06/2017 by Luis Eduardo Cole MD at OR [facility] Left: Eye BAUSCH & LOMB 01/05/2022 [id number] / [id number] / Lens Intraoc 21.0 - [id number] - [id number] Implanted:Qty : 1 on 07/20/2017 by Luis Eduardo Cole MD at OR [facility] Right: Eye BAUSCH & LOMB 01/05/2022 [id number] / [id number] / Syringe Prolaryn Del 1.0cc - [id number] Implanted:Qty : 1 on 11/20/2019 by Amber Jain MD at OR [facility] Right: Mouth [employer] 10/21/2021 [id number] / / [id number] Implant Silastic 7 Silicone Sw - [id number] Implanted:Qty : 1 on 05/28/2020 by Farhat Pate MD at OR [facility] Right: Throat [employer] [id number] / / documented as of this [...] the patient have Health Care Power of Marketing Sales Supervisor? No Code Status History Code Status Date [...] and were consensually agreed upon. Care Teams Patternator Relationship Specialty Start Date End Date Ivonne French PA-C [address] [place] [address] PCP - General Physician Obstetrics Specialist 07/24/21 documented as of this encounter
--- OUTSIDE RECORDS SUMMARY | 2024-01-29 21:22 | External Medical Summary ---
Author Name Unknown Address Unknown Organization [id number]:LABORATORY [facility] - [address] [place] [address] Laboratory Report Ordering Provider Test Date Status BRADLY BERMAN 01/19/2024 10:25:50 Final Observation Date Value Abnormality Reference (Units ) Status SYNC LEUKOCYTES IN BLOOD BY AUTOMATED COUNT 01/19/2024 10:25:50 0.88 Below lower panic limits 4.00-10.80 (K/uL) Final Neutrophils/100 leukocytes in Blood by Manual count 01/19/2024 10:25:50 8.0 Below low normal 40.0-75.0 (%) Final Lymphocytes/100 leukocytes in Blood by Manual count 01/19/2024 10:25:50 91.0 Above high normal 18.0-42.0 (%) Final Monocytes/100 leukocytes in Blood by Manual count 01/19/2024 10:25:50 1.0 1.0-11.0 (%) Final Neutrophils [#/volume] in Blood by Manual count 01/19/2024 10:25:50 0.07 Below low normal 1.80-7.70 (K/uL) Final Lymphocytes [#/volume] in Blood by Manual count 01/19/2024 10:25:50 0.80 Below low normal 1.00-4.80 (K/uL) Final Monocytes [#/volume] in Blood by Manual count 01/19/2024 10:25:50 0.01 0.00-1.10 (K/uL) Final Performing Location LABORATORY [facility] - [address] [facility] [address] [place] [address]
--- OUTSIDE RECORDS SUMMARY | 2024-01-29 21:22 | External Medical Summary ---
Author Name Unknown Address Unknown Organization K1F:LABORATORY [facility] - [address] [place] [address] Laboratory Report Ordering Provider Test Date Status DIEGO BERMANAPPLE 01/17/2024 11:16:38 Final Observation Date Value Abnormality Reference (Units ) Status ABO 01/17/2024 11:16:38 O Final RH 01/17/2024 11:16:38 Positive Final RED BLOOD CELL ANTIBODY SCREEN 01/17/2024 11:16:38 Negative Final SPECIMEN EXPIRATION DATE 01/17/2024 11:16:38 01/20/2024 23:59 Final Performing Location LABORATORY [facility] - [address] [place] [address]
--- OUTSIDE RECORDS SUMMARY | 2024-01-29 21:23 | External Medical Summary | Summary of Care ---
Author Name Unknown Organization [facility] Address [address] [place] [address] Phone [phone] Care Team Providers Care Web Operations Lead Name Role Phone Ivonne French PA-C Primary Care Provider [phone] Reason for Visit * Reason Onset Date Comments Information 01/11/2024 Encounter Details Date Type Department Care Team ([facility] st Contact Info) Description 01/11/2024 Telephone [facility] [address] [place] [address] Dandy Enamorado MD [address] [place] [address] Information Allergies Active Allergy Reactions Criticality Noted Date Comments Adhesive Tape 04/21/2016 Glue off the old style medical tape. documented as of this encounter (statuses as of 01/12/2024) Medications Medication Sig Dispensed Refills Start Date [...] E11.9 1 Kit 0 05/25/2023 Active Pen [place] 32G X 4 MM Use as directed. 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 Use when checking blood [...] as of this encounter (statuses as of 01/12/2024) Active Problems Problem Noted Date Diagnosed Date [...] as of this encounter (statuses as of 01/12/2024) Resolved Problems Problem Noted Date Diagnosed Date [...] as of this encounter (statuses as of 01/12/2024) Immunizations Name Administration Dates Next Due COVID-19 [...] encounter Miscellaneous Notes * Telephone Encounter - Estephania Crenshaw LPN - 01/12/2024 7:31 AM EST Spoke with pt. She has been busy traveling to [place] three time a week an has not had time. Whenpt has time she will call us back to reopen referral. * Telephone Encounter - Zahraa Rayo OSA - 01/11/2024 4:13 PM EST Yodit called to notify Dr Enamorado's office that they have not seen the patient at all. She does not return phone calls and they even went to the house once and no one answered. They had to closethe referral. They tried her emergency contact and he was not helpful. She mentioned that the office might want to request a well check on her. She also stated that if you get in touch with the patient, they would be glad to take a new referral. Please call Yodit with any questions. Thank you. documented in this encounter Plan of Treatment Upcoming Encounters Date Type Department Care Team (Late st Contact Info) Description 01/12/2024 8:10 AM EST Laboratory Laboratory [facility] Sofie Humboldt [address] [place] [address] [facility] [address] [place] [address] [address] 01/12/2024 8:45 AM EST Office Visit Hematology/Oncology [facility] State Walter Carrizales [address] [place] [address] [phone] Shon Rice MD 200 [facility] [place] [address] 01/12/2024 10:30 AM EST Hem/Onc Treatment Hematology/Oncology Treatment, [address] [place] [id number] [facility], Chair11 Hem Onc [address] [place] [address], [place] [address] 01/14/2024 11:30 AM EST Laboratory Laboratory, [address] [place] [address] [facility], Lab [address] [place] [address], [place] [address] 01/14/2024 12:30 PM EST Hem/Onc Treatment Hematology/Oncology Treatment, [address] [place] [address] [facility], Chair10 Hem Onc [address] [place] [address], [place] [address] 01/17/2024 10:30 AM EDT Laboratory Laboratory, [address] [place] [address] [facility], Lab [address] [place] [address] 01/17/2024 11:30 AM EDT Office Visit Hematology/Oncology, [address] [address] Ortega Verde MD [address] [place] [address] 01/17/2024 12:00 PM EDT Hem/Onc Treatment Hematology/Oncology Treatment, [address] [place] [address] [facility], Chair10 Hem Onc [address] [place] [address], [place] [address] 01/26/2024 9:00 AM EDT Office Visit Pharmacy, [facility] 132 [facility] [place] [address] [facility] [address] [facility] [place] [address] 01/31/2024 9:00 AM EDT Imaging Radiology [facility] 1st [facility] [address] [place] [address] 02/09/2024 11:00 AM EDT Office Visit Palliative Medicine, [facility] 400 [facility] 5th Floor [place] [address] Nati Easley PA-C [address] [place] [address] 02/10/2024 11:40 AM EDT Office Visit Family Practice, [place] [address] [facility] [address] Ivonne French PA-C [address] [facility], [place] [address] 03/14/2024 10:00 AM EDT Office Visit Family Practice, [place] [address] [facility] [place] [address] Ivonne French PA-C [address] [facility], [place] [address] 04/18/2024 10:00 AM EDT Office Visit Family Practice, [place] [address] [facility] [place] [address] Ivonne French PA-C [address] [facility], [place] [address] 05/10/2024 8:15 AM EDT Office Visit Ophthalmology, [address] [place] [address] Migel Ramires MD [address] [place] [address] 05/16/2024 10:00 AM EDT Office Visit [facility] [address] [place] [facility] [place] [address] Ivonne French PA-C [address] [place] [address] Scheduled Procedures Name Priority Associated [...] history exists Depression Screening 12/30/2024 12/30/2023 GFR 01/09/2025 01/10/2024, 030 11/2023, 01/05/2024, Additional history exists PAP SMEAR-EVERY 3 YRS,AGES [...] encounter Medical Devices Implanted Type Area Medical Examiner Device Identifier Shelf Expiration Date Model / Serial / Lot Lens Intraoc 21.0 - [id number] - [id number] Implanted:Qty : 1 on 07/06/2017 by Luis Eduardo Cole MD at OR [facility] Left: Eye BAUSCH & LOMB 01/05/2022 [id number] / [id number] / Lens Intraoc 21.0 - [id number] - [id number] Implanted:Qty : 1 on 07/20/2017 by Luis Eduardo Cole MD at OR [facility] Right: Eye BAUSCH & LOMB 01/05/2022 [id number] / [id number] / Syringe Prolaryn Del 1.0cc - [id number] Implanted:Qty : 1 on 11/20/2019 by Amber Jain MD at OR [facility] Right: Mouth [employer] 10/21/2021 [id number] / / [id number] Implant Silastic 7 Silicone Sw - [id number] Implanted:Qty : 1 on 05/28/2020 by Farhat Pate MD at OR [facility] Right: Throat [employer] [id number] / / documented as of this [...] the patient have Health Care Power of Parks And Recreation Manager? No Code Status History Code Status Date [...] and were consensually agreed upon. Care Teams Web Operations Lead Relationship Specialty Start Date End Date Ivonne French PA-C [address] [place] [address] PCP - General Physician Bail Attacher 07/24/21 documented as of this encounter
--- OUTSIDE RECORDS SUMMARY | 2024-01-29 21:23 | External Medical Summary | Summary of Care ---
Author Name Unknown Organization [facility] Address [address] [place] [address] Phone [phone] Care Team Providers Care Rubber Grinder Name Role Phone Ivonne French PA-C Primary Care Provider [phone] Encounter Details Date Type Department Care Team (Late st Contact Info) Description 01/12/2024 9:15 AM EST Scheduled Telephone Care Coordination and Integration [address] [place] [address] Matthew Lieberman [facility] Health Business Systems Architect [address] [place], [place] [id number] Allergies Active Allergy Reactions Criticality Noted Date [...] E11.9 1 Kit 0 05/25/2023 Active Pen [place] 32G X 4 MM Use as directed. [...] Strip 5 12/28/2023 Active OneTouch Delica Plus Wbmfrx14R Use as directed. Use when checking blood [...] as of this encounter Progress Notes * Matthew Lieberman [facility] Business Systems Architect - 01/12/2024 9:32 AM EST Telemedicine visit: No [facility] Business Systems Architect (DINORAH) documentation: DINORAH attempted follow up phone call for the RNCM andreached the patient's voicemail. DINORAH left a brief message with the RNCM's callback information. Carlos Lieberman [facility] [place] [facility] Business Systems Architect II [facility] [phone] Electronically signed by Matthew Lieberman [facility] [place] [facility] Business Systems Architect at 01/12/2024 9:33 AM EST documented in this encounter Plan of Treatment Upcoming Encounters Date Type Department Care Team (Late st Contact Info) Description 01/14/2024 11:30 AM EST Laboratory Laboratory, [address] [phone] [facility], Lab [address] [place] [address] 01/14/2024 12:30 PM EST Hem/Onc Treatment Hematology/Oncology Treatment, [address] [address] [facility], Chair10 Hem Onc [address] [place] [address] 01/17/2024 10:30 AM EDT Laboratory Laboratory, [address] [address] [facility], Lab [address] [place] [address] 01/17/2024 11:30 AM EDT Office Visit Hematology/Oncology, [address] [place] [address] Ortega Verde MD [address] [place] [address] 01/17/2024 12:00 PM EDT Hem/Onc Treatment Hematology/Oncology Treatment, [facility] 400 [facility], [place] [address] [facility], Chair10 Hem Onc 400 [place] [address] 01/26/2024 9:00 AM EDT Office Visit Pharmacy, [facility] 132 [facility] [place] [address] [facility] [place] [address] 01/31/2024 9:00 AM EDT Imaging Radiology [facility] 1st [facility] 132 [facility] [place] [address] 02/09/2024 11:00 AM EDT Office Visit Palliative Medicine, [facility] 400 [facility] 5th Floor [place] [address] Nati Easley PA-C 400 [facility] [address] 02/10/2024 11:40 AM EDT Office [facility], [place] [address] [address] [facility], [place] [address] Ivonne French PA-C [address] [facility], [place] [address] 03/14/2024 10:00 AM EDT [facility], [place] [address] [address] [facility] [address] Ivonne French PA-C [address] [facility], [place] [address] 04/18/2024 10:00 AM EDT [facility], [place] [address] [address] [facility] [address] Ivonne French PA-C [address] [place] [address] 05/10/2024 8:15 AM EDT Office Visit Ophthalmology, [place] [address] [place] [address] Migel Ramires MD [address] [facility] [place] [address] 05/16/2024 10:00 AM EDT Office Visit Family [facility], [place] [address] [facility] [phone] Ivonne French PA-C [address] [place] [address] Scheduled Procedures Name Priority Associated Diagnoses Date/Ti [...] history exists Depression Screening 12/30/2024 12/30/2023 GFR 01/11/2025 01/12/2024, 03/0 02/2024, 01/07/2024, Additional history exists PAP SMEAR-EVERY 3 YRS,AGES [...] this encounter Medical Devices Implanted Type Area Infectious Diseases Physician Device Identifier Shelf Expiration Date Model / Serial / Lot Lens Intraoc 21.0 - [id number] - [id number] Implanted:Qty : 1 on 07/06/2017 by Luis Eduardo Cole MD at OR [facility] Left: Eye BAUSCH & LOMB 01/05/2022 [id number] / [id number] / Lens Intraoc 21.0 - [id number] - [id number] Implanted:Qty : 1 on 07/20/2017 by Luis Eduardo Cole MD at OR [facility] Right: Eye BAUSCH & LOMB 01/05/2022 [id number] / [id number] / Syringe Prolaryn Del 1.0cc - [id number] Implanted:Qty : 1 on 11/20/2019 by Amber Jain MD at OR [facility] Right: Mouth [employer] 10/21/2021 [id number] / / [id number] Implant Silastic 7 Silicone Sw - [id number] Implanted:Qty : 1 on 05/28/2020 by Farhat Pate MD at OR [facility] Right: Throat [place] [id number] / / documented as of this [...] the patient have Health Care Power of Fibreglass Gun Hand? No Code Status History Code Status Date [...] and were consensually agreed upon. Care Teams Rubber Grinder Relationship Specialty Start Date End Date Ivonne French PA-C [address] [facility] [place] [address] PCP - General Physician Business Systems Architect 07/24/21 documented as of this encounter
--- OUTSIDE RECORDS SUMMARY | 2024-01-29 21:23 | External Medical Summary ---
Author Name Unknown Address Unknown Organization K01:LABORATORY [facility] - [address] [place] [address] Laboratory Report Ordering Provider Test Date Status BRENNAN JOSEPH 01/12/2024 08:45:00 Final Observation Date Value Abnormality Reference (Units ) Status REFERENCE LAB SCANNED REPORT 01/12/2024 08:45:00 See Scanned Report Final Performing Location LABORATORY C - [address] [place] [address]
--- OUTSIDE RECORDS SUMMARY | 2024-01-29 21:23 | External Medical Summary | Summary of Care ---
Author Name Unknown Organization [facility] Address [address] [facility] [address] Phone [phone] Care Team Providers Care Ferry Pilot Name Role Phone Ivonne French PA-C Primary Care Provider [phone] [phone] Reason for Visit * Reason Comments Infusion 1uprbc Encounter Details Date Type Department Care Team (Latest Contact Info) Description 01/10/2024 12:00 PM EST Hem/Onc Treatment Hematology/Oncology Treatment, [address] [address] [facility], Chair9 Hem Onc [address] [place] [id number] 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sion (HCC)* Allergies Active Allergy Reactions Criticality Noted Date Comments Adhesive Tape 04/21/2016 Glue off the old style medical tape. documented as of this encounter (statuses as of 01/10/2024) Medications Medication Sig Dispensed Refills Start Date [...] E11.9 1 Kit 0 05/25/2023 Active Pen [place] 32G X 4 MM Use as directed. 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 135 Tablet 1 12/28/2023 Active Acyclovir 400 MG Oral Tablet (Zovirax) Take 1 Tablet by mouth in the morning and 1 Tablet before bedtime. 60 Tablet 3 12/28/2023 Active levoFLOXacin 500 MG Oral Tablet (Levaquin) Take 1 Tablet by mouth daily in the morning. 30 Tablet 1 12/29/2023 Active MiraklTouch Verio In Vitro Strip (Glucose Blood) Use when checking blood glucose levels 4 times per day 200 Strip 12/28/2023 Active OneTouch Delica Plus [id number] Use as directed. Use when checking blood [...] morning. 90 Tablet 1 01/10/2024 04/09/2024 Active documented as of this encounter (statuses as of 01/10/2024) Active Problems Problem Noted Date Diagnosed Date [...] as of this encounter (statuses as of 01/10/2024) Resolved Problems Problem Noted Date Diagnosed Date [...] as of this encounter (statuses as of 01/10/2024) Immunizations Name Administration Dates Next Due COVID-19 [...] Sign Reading Time Taken Comments Blood Pressure 144/64 01/10/2024 3:26 PM EST Pulse 64 01/10/2024 3:26 PM EST Temperature 36.2 C (97.2 F) 01/10/2024 3:26 PM ES T Respiratory Rate 16 01/10/2024 3:26 PM EST Oxygen Saturation 99% 01/10/2024 2:02 PM EST Inhaled Oxygen Concentration - - Weight - [...] No 11/24/2023 documented as of this encounter Patient Instructions * Patient Instructions* Amy Baires RN - 01/10/2024 12:53 PM EST POST TRANSFUSION INSTRUCTIONS FOR THE AMBULATORY PATIENT You have just completed your blood transfusion. Every effort has been made to ensure that you have received the safest blood product available. However, side effects or complications can occur. Thesecomplications are called transfusion reactions. These reactions are rare. It is important that you be able to recognize a reaction should one occur. If any of the following symptoms occur over the next 12 hours, please notify your physician immediately: Shaking chills Back pain (that is new or different) Chest pain Dizziness (that was not present before the transfusion) Fainting If any of the following symptoms occur over the next 10 days, please notify your physician right away: Fever greater than 100.5F Jaundice (the white part of your eyes turn yellow) Color of urine changes to pink, red, or brown. Shortness of breath (that was not present before the transfusion) Weakness after normal exercise Decrease in amount of urine or frequency or urinating. Every effort has been made to prevent any reactions and make your transfusion as safe as possible. Should you have any questions, please contact your physician. After hours and on weekends, call the hospital-paging demolition hammer operator at one of the below listed numbers and ask to speak with an emergency room physician or the family practice medical doctor of transfusion medicine. [facility] - [phone] [facility] - [phone] [facility] - [phone] [facility] - [phone] [facility] - [phone] [facility] - [phone] [facility] - ext. 4 [facility] - You received 1uprbc Your temperature, pulse, and blood pressure at the end of your transfusion are as follows: Temperature: 36.2 Pulse: 64 Blood Pressure: 144/64 documented in this encounter Nursing Notes * Amy Baires RN - 01/10/2024 3:27 PM EST Lung sounds clear to auscultation in all 4 quadrants. Vss. Pt tolerated 1UPRBC without difficulty. Pt schedule reviewed with her and able to verbalize instructions. Patient left IVC by ambulating. Unaccompanied. Voiced no complaints. Amy Baires RN 01/10/2024 3:33 PM * Amy Baires RN - 01/10/2024 3:18 PM EST Pt in bay#7 present for blood products. Vss. Current hgb 7.1-blood bank triage completed, pt ok for 1 unit PrBC. Consent on file dated 12/07/23 Pt denies any previous reactions to blood products. Pt agreeable to 1UPRBC this date. [facility] Nursing Care Plan ID is not set. 01/10/2024 Safety and Risk for Injury Patient will remain free from injury. Assess patient's risk for falls per policy. Encourage activity as ordered per policy. Ensure appropriate safety devices are available. Implement fall prevention plan of care per policy. Include patient and caregiver in decisions related to safety. Perform safety rounds per policy. Provide and maintain safe environment. Use appropriate transfer methods. Goals: pt will not fall while in iv clinic Possible barriers to meeting goals: iv pole,general malaise Stability of the patient: Moderately stable - low risk of patient condition declining or worsening Summary regarding today's goals: Met: pt did not fall while in iv clinic Amy Baires RN documented in this encounter Plan of Treatment Upcoming Encounters Date Type Department Care Team (Late st Contact Info) Description 01/12/2024 8:10 AM EST Laboratory Laboratory [facility] [place] [address] [place], [place] [address] [place], Lab Scenery [address] [place], [place] [address] 01/12/2024 8:45 AM EST Office Visit Hematology/Oncology [facility] [place] [address] [place] [phone] Shon Rice MD [address] [place], [place] [address] 01/12/2024 10:30 AM EST Hem/Onc Treatment Hematology/Oncology Treatment, [address] [place] [address] [facility], Chair11 Hem Onc [address] [place] [address] 01/14/2024 11:30 AM EST Laboratory Laboratory, [address], [place] [address] [facility], Lab [address] [place] [address], [place] [address] 01/14/2024 12:30 PM EST Hem/Onc Treatment Hematology/Oncology Treatment, [address], [place] [address] [facility], Chair10 Hem Onc [address] [place] [address], [place] [address] 01/17/2024 10:30 AM EDT Laboratory Laboratory, [address], [place] [address] [facility], Lab [address] [place] [address], [place] [address] 01/17/2024 11:30 AM EDT Office Visit Hematology/Oncology, [address] [address] Ortega Verde MD [address] [place] [address] 01/17/2024 12:00 PM EDT Hem/Onc Treatment Hematology/Oncology Treatment, [address] [place] [address] [place], Chair10 Hem Onc [address] [place] [address] 01/26/2024 9:00 AM EDT Office Visit Pharmacy, [facility] [address] [facility] [address] [facility] 132 [facility] [place] [address] 01/31/2024 9:00 AM EDT Imaging Radiology [facility]st [facility] 132 [facility] [place] [address] 02/09/2024 11:00 AM EDT Office Visit Palliative Medicine, [address] 5th [place] [address] Nati Easley PA-C [address] [place] [address] 02/10/2024 11:40 AM EDT Office Visit [address] [phone] Ivonne French PA-C [address] [place] [address] 03/14/2024 10:00 AM EDT Office Visit [place] [address] [place] [place] [address] Ivonne French PA-C [address] [place] [facility] [address] 04/18/2024 10:00 AM EDT Office Visit [facility] [address] [place] [facility] [address] Ivonne French PA-C [address] [place] [facility] [address] 05/10/2024 8:15 AM EDT Office Visit Ophthalmology, [place] [address] [facility] [address] [place] [address] Migel Ramires MD 21 [facility] [place] [address] 05/16/2024 10:00 AM EDT Office Visit [facility] [address] [facility], [place] [address] Ivonne French PA-C [address] [facility], [place] [phone] Scheduled Procedures Name Priority Associated Diagnoses Date/Ti [...] Depression Screening 12/30/2024 12/30/2023 GFR 01/09/2025 01/10/2024, 03/0 11/2023, 01/05/2024, Additional history exists PAP SMEAR-EVERY [...] this encounter Medical Devices Implanted Type Area Texture Artist Device Identifier Shelf Expiration Date Model / Serial / Lot Lens Intraoc 21.0 - [id number] - [id number] Implanted:Qty : 1 on 07/06/2017 by Luis Eduardo Cole MD at [facility] Left: Eye [employer] 01/05/2022 [id number] / [id number] / Lens Intraoc 21.0 - [id number] - [id number] Implanted:Qty : 1 on 07/20/2017 by Luis Eduardo Cole MD at OR [facility] Right: Eye [employer] LOM[employer] 01/05/2022 [id number] / [id number] / Syringe Prolaryn Del 1.0cc - [id number] Implanted:Qty : 1 on 11/20/2019 by Amber Jain MD at OR [facility] Right: Mouth [employer] 10/21/2021 [id number] / / [id number] Implant Silastic 7 Silicone Sw - [id number] Implanted:Qty : 1 on 05/28/2020 by Farhat Pate MD at OR [facility] Right: Throat [employer] [id number] / / documented as of this encounter Procedures Procedure Name Priority Date/Time Associated Diagnosis Comments TRANSFUSE PACKED RED BLOOD CELLS Routine 01/10/2024 12:51 PM EST 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sion (HCC) PREPARE PACKED RED BLOOD CELLS Routine 01/10/2024 12:40 PM EST 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sion (HCC) documented in this encounter Results * TRANSFUSE PACKED RED BLOOD CELLS (01/10/2024 3:15 PM EST) Ortega Verde MD [facility] TR ANFUSE ORDERABLES * TRANSFUSE PACKED RED BLOOD CELLS (01/10/2024 3:15 PM EST) Ortega Verde MD D BANK TR ANFUSE ORDERABLES * PREPARE PACKED RED BLOOD CELLS (01/10/2024 12:40 PM EST) Unit Product Code [id number] [facility] BLOOD BANK Unit Number [id number] [facility] BLOOD [facility] Unit ABO O [facility] BLOOD [facility] Unit Rh POS [facility] BLOOD BANK Unit Crossmatch Compatible [facility] BLOOD BANK Unit Status IS LABOR[facility]O RY [facility] BLOOD BANK Unit Blood Type OPOS [facility] BLOOD BANK Unit Expiration [id number] [facility] BLOOD BANK Unit Barcode 5100 LABORAT ORY [facility] BLOOD BANK 01/10/2024 12:4 0 PM EST Ortega Verde MD BLD BANK [place] ODUCT ORDERABLES [facility] BLOOD BANK [address] [place] [address] documented in this encounter Visit Diagnoses Diagnosis 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sion (HCC)- Primary documented in this encounter Administered Medications Active Administered Medications - up to 3 most recent administrations Medication Order MAR Action Action Date Dose Rate Site Acetaminophen (Tylenol) tab 650 mg 650 mg, Oral, ONCE PRN Other, If previous infusion reaction with blood transfusion, Starting on Wed01/10/24 at 1345, Until Discontinued, Maximum of 4 grams (4000 mg) per day. Acetaminophen (Tylenol) tab 650 mg 650 mg, Oral, ONCE PRN Other, Transfusion Reaction, Starting on Wed01/10/24 at 1235, Until Wed01/11/24 at 1234, For 24 hours, Maximum of 4 grams (4000 mg) per day. diphenhydrAMINE (Benadryl) cap 25 mg 25 mg, Oral, ONCE PRN Other, If previous infusion reaction with blood transfusion, Starting on Wed01/10/24 at 1345, Until Discontinued diphenhydrAMINE (Benadryl) cap 25 mg 25 mg, Oral, ONCE PRN Other, Transfusion Reaction, Starting on Wed01/10/24 at 1235, Until Wed01/11/24 at 1234, For 24 hours diphenhydrAMINE (Benadryl) inj 50 mg 50 mg, IV Push, ONCE PRN Other, Hypersensitivity Reaction, Starting on Wed01/10/24 at 1235, Until Wed01/11/24 at 1234, For 24 hours EPINEPHrine 1 MG/ML inj 0.3 mg 0.3 mg, Intramuscular, ONCE PRN Other, Hypersensitivity Reaction or Anaphylaxis, Starting on Wed01/10/24 at 1235, Until Wed01/11/24 at 1234, For 24 hours hEParin 100 UNIT/ML Lock Flush inj 500 Units 500 Units (5 mL), IV Lock, PRN Other, IV Flush, Starting on Wed01/10/24 at 1235, Until Wed01/11/24 at 1234, For 24 hours, Do not flush if lock, PICC, or central line not in place; IV infusing or unable to flush. Hydrocortisone Sod Suc (PF) (Solu-Cortef) inj 100 mg 100 mg, IV Push, ONCE PRN Other, If previous infusion reaction with blood transfusion, Starting on Wed01/10/24 at 1345, Until Discontinued Hydrocortisone Sod Suc (PF) (Solu-Cortef) inj 100 mg 100 mg, IV Push, ONCE PRN Other, Hypersensitivity Reaction, Starting on Wed01/10/24 at 1235, Until Wed01/11/24 at 1234, For 24 hours NSS infusion 500 mL, Intravenous, at 50 mL/hr, CONTINUOUS, Starting on Wed01/10/24 at 1345, Until Wed01/10/24 at 2344 sodium chloride 0.9 % flush central line 10 mL 10 mL, IV Push, PRN Other, IV Flush, Starting on Wed01/10/24 at 1235, Until Wed01/11/24 at 1234, For 24 hours, Do not flush if lock, PICC, or central line not in place; IV infusing or unable to flush. Given 01/10/2024 3:31 PM EST 10 mL Given 01/10/2024 12:36 PM EST 10 mL documented in this encounter Advance Directives [...] the patient have Health Care Power of Computer Video Game Designer? No Code Status History Code Status Date [...] and were consensually agreed upon. Care Teams Ferry Pilot Relationship Specialty Start Date End Date Ivonne French PA-C [address] [place] [address] PCP - General Physician Manager Transfusion 07/24/21 documented as of this encounter
--- OUTSIDE RECORDS SUMMARY | 2024-01-29 21:23 | External Medical Summary ---
Author Name Unknown Address Unknown Organization K09:[facility] [address] [place] [address] Laboratory Report Ordering Provider Test Date Status BRADLY BERMAN 01/12/2024 07:56:34 Final Observation Date Value Abnormality Reference (Units ) Status BUN 01/12/2024 07:56:34 18 6-20 (mg/dL) Final Creatinine 01/12/2024 07:56:34 1.0 0.5-1.0 (mg/dL) Final Glomerular filtration rate/1.73 sq M.predicted [Volume Rate/Area] in Serum, Plasma or Blood by Creatinine-based formula (CKD-EPI) 01/12/2024 07:56:34 64 >=60 (mL/min) Final eGFR is calculated based on the CKD-EPI 2020 equation SODIUM 01/12/2024 07:56:34 139 135-146 (m mol/L) Final Potassium 01/12/2024 07:56:34 3.7 3.5-5.1 (m mol/L) Final Cl 01/12/2024 07:56:34 99 98-107 (mm ol/L) Final CO2 01/12/2024 07:56:34 28 22-32 (mmo l/L) Final Anion gap 01/12/2024 07:56:34 12 7-15 (mmol /L) Final Glucose 01/12/2024 07:56:34 197 Above high normal 70 -120 (mg/dL) Final Albumin 01/12/2024 07:56:34 3.6 Below low normal 3.8 -5.0 (g/dL) Final AST (Aspartate aminotransferase) 01/12/2024 07:56:34 26 10-35 (U/L) Fin al Alk Phos 01/12/2024 07:56:34 121 35-130 (U/ L) Final Bilirubin, Total 01/12/2024 07:56:34 0.8 <=1 .2 (mg/dL) Final Calcium 01/12/2024 07:56:34 8.3 Below low normal 8.4 -10.2 (mg/dL) Final Protein 01/12/2024 07:56:34 6.9 6.0-8.3 (g /dL) Final ALT (Alanine aminotransferase) 01/12/2024 07:56:34 26 10-35 (U/L) Colin lee Performing Location [facility] [address] [place] [address]
--- OUTSIDE RECORDS SUMMARY | 2024-01-29 21:23 | External Medical Summary | Summary of Care ---
Author Name Unknown Organization [facility] Address [address] [place] [address] Phone [phone] Care Team Providers Care Cut Off Saw Tender Metal Name Role Phone Ivonne French PA-C Primary Care Provider [phone] Reason for Visit * Reason Comments Outpatient Testing Encounter Details Date Type Department Care Team (Late st Contact Info) Description 01/14/2024 11:30 AM EST Laboratory Laboratory, [facility] [address] [place] [address] [facility], Lab [address] [place] [address] 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sion [...] E11.9 1 Kit 0 05/25/2023 Active Pen [place] 32G X 4 MM Use as directed. [...] Hour (toPROL XL)Indications:Craig nary artery disease involving alutiiq coronary artery of alutiiq heart without angina pectoris Take 2 Tablets [...] 200 Strip 12/28/2023 Active OneTouch Delica Plus [id number] Use as directed. Use when checking blood [...] 12:30 PM EST Hem/Onc Treatment Hematology/Oncology Treatment, [address] [address] [facility], Chair10 Hem Onc [address] [place] [address] Arrived 01/17/2024 10:30 AM EDT Laboratory Laboratory, [address] [phone] [facility], Lab [address] [place] [address] 01/17/2024 11:30 AM EDT Office Visit Hematology/Oncology, [address] [address] Ortega Verde MD [address] [place] [address] 01/17/2024 12:00 PM EDT Hem/Onc Treatment Hematology/Oncology Treatment, [address] [address] [facility], Chair10 Hem Onc [address] [place] [address] 01/26/2024 9:00 AM EDT Office Visit Pharmacy, [facility] [address] [place] [address] [facility] [address] [place] [address] 01/31/2024 9:00 AM EDT Imaging Radiology [address] [place] [address] 02/08/2024 12:30 PM EDT Office Visit Podiatry [facility], [address] [place] [address] Nayan Franklin, DPJeffry [address] [facility] [place] [address] 02/09/2024 11:00 AM EDT Office Visit Palliative Medicine, [facility] [address] [facility] 5th [place] [address] Nati Easley PA-C [address] [place] [address] 02/10/2024 11:40 AM EDT Office Visit [facility], [place] [address] [place] [address] Ivonne French PA-C [address] [place] [address] 03/14/2024 10:00 AM EDT Office Visit [facility], [place] [address] [address] [facility], [place] [address] Ivonne French PA-C [address] [place] [facility] [place] [address] 04/18/2024 10:00 AM EDT Office Visit [facility], [place] [address] [address] [facility], [place] [address] Ivonne French PA-C [address] [place] [address] 05/10/2024 8:15 AM EDT [facility] [place] [address] Migel Ramires MD [address] [facility] [place] [address] 05/16/2024 10:00 AM EDT Office Visit [facility] [address] [place] [phone] Ivonne French PA-C [address] [place] [address] Pending Results Name Type Priority Associated Diagnoses Date /Time CBC WITH WBC DIFFERENTIAL Lab STAT 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sion (HCC) 01/14/2024 10:23 AM EST COMPREHENSIVE METABOLIC PANEL Lab STAT 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sion (HCC) 01/14/2024 10:23 AM EST TYPE AND SCREEN Lab STAT 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sion (HCC) 01/14/2024 10:23 AM EST CBC Lab STAT 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sion (HCC) 01/14/2024 10:23 AM EST DIFFERENTIAL, AUTOMATED Lab STAT 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sion (HCC) 01/14/2024 10:23 AM EST Scheduled Procedures Name Priority Associated Diagnoses Date/Ti [...] this encounter Medical Devices Implanted Type Area Patternmaker Helper Device Identifier Shelf Expiration Date Model / Serial / Lot Lens Intraoc 21.0 - [id number] - [id number] Implanted:Qty : 1 on 07/06/2017 by Luis Eduardo Cole MD at OR [facility] Left: Eye [employer] 01/05/2022 [id number] / [id number] / Lens Intraoc 21.0 - [id number] - [id number] Implanted:Qty : 1 on 07/20/2017 by Luis Eduardo Cole MD at OR [facility] Right: Eye [employer]OM[employer] 01/05/2022 [id number] / [id number] / Syringe Prolaryn Del 1.0cc - [id number] Implanted:Qty : 1 on 11/20/2019 by Amber Jain MD at OR [facility] Right: Mouth [employer] 10/21/2021 [id number] / / [id number] Implant Silastic 7 Silicone Sw - [id number] Implanted:Qty : 1 on 05/28/2020 by Farhat Pate MD at OR [facility] Right: Throat [employer] [id number] / / documented as of this [...] patient have Health Care Power of Medical Office Professional Instructor? No Code Status History Code Status [...] and were consensually agreed upon. Care Teams Cut Off Saw Tender Metal Relationship Specialty Start Date End Date Ivonne French PA-C [address] [facility] [place] [address] PCP - General Physician Sales Clerk 07/24/21 documented as of this encounter
--- OUTSIDE RECORDS SUMMARY | 2024-01-29 21:23 | External Medical Summary | Summary of Care ---
Author Name Unknown Organization [facility] Address [address] [place] [address] Phone [phone] Care Team Providers Care Assessment Clinician Name Role Phone Ivonne French PA-C Primary Care Provider [phone] Reason for Visit * Reason Onset Date Comments Other 01/11/2024 LLS/Jani Perks Encounter Details Date Type Department Care Team (Late st Contact Info) Description 01/11/2024 Telephone Hematology/Oncology, [facility] [address] [place] [address] Ortega Verde MD [address] [place] [address] Other (LLS/Jani Perks) Allergies Active Allergy Reactions Criticality Noted Date Comments Adhesive Tape 04/21/2016 Glue off the old style medical tape. documented as of this encounter (statuses as of 01/11/2024) Medications Medication Sig Dispensed Refills Start Date [...] E11.9 1 Kit 0 05/25/2023 Active Pen [place] 32G X 4 MM Use as directed. 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 Use when checking blood [...] as of this encounter (statuses as of 01/11/2024) Active Problems Problem Noted Date Diagnosed Date [...] as of this encounter (statuses as of 01/11/2024) Resolved Problems Problem Noted Date Diagnosed Date [...] as of this encounter (statuses as of 01/11/2024) Immunizations Name Administration Dates Next Due COVID-19 [...] encounter Miscellaneous Notes * Telephone Encounter - Marialuisa Ny LPN - 01/11/2024 11:34 AM EST Juany was supposed to bring income verification to the office so we could submit to S for financial assistance. I have not received any income info. Called pt to remind her of this, left VM. Also made her aware that Rosette would give her a [employer] aung tomorrow at her bone marrow biopsy w/Dr Rice. Advised that she could call back with questions. documented in this encounter Plan of Treatment Upcoming Encounters Date Type Department Care Team (Late st Contact Info) Description 01/12/2024 8:10 AM EST Laboratory Laboratory [facility] [place] [address] [facility] [place] [phone] [place], [address] [place] [address] 01/12/2024 8:45 AM EST Office Visit Hematology/Oncology [facility] [place] [address] [facility] [place] [phone] Shon Rice [facility] [address] 01/12/2024 10:30 AM EST Hem/Onc Treatment Hematology/Oncology [address], [address] [place] [address] [facility], Chair11 Hem Onc [address] [place], [place] [address] [address] 01/14/2024 11:30 AM EST Laboratory Laboratory, [address] [place] [address] [facility], Lab 400 [facility] [address] 01/14/2024 12:30 PM EST Hem/Onc Treatment Hematology/Oncology Treatment, [address] [address] [facility], Chair10 Hem Onc [address] [place] [address] 01/17/2024 10:30 AM EDT Laboratory Laboratory, [address] [phone] [facility], Lab [address] [place] [address] 01/17/2024 11:30 AM EDT Office Visit Hematology/Oncology, [address] [address] Ortega Verde MD [address] [place] [address] 01/17/2024 12:00 PM EDT Hem/Onc Treatment Hematology/Oncology Treatment, [address] [address] [facility], Chair10 Hem Onc [address] [place] [address] 01/26/2024 9:00 AM EDT Office Visit Pharmacy, [facility] [place] [address] [facility] [address] [place] [address] 01/31/2024 9:00 AM EDT Imaging Radiology [address] 132 [place] [address] 02/09/2024 11:00 AM EDT Office Visit Palliative Medicine, [facility] 400 [facility] 5th Floor [place] [address] Nati Easley PA-C 400 [facility] [place] [address] 02/10/2024 11:40 AM EDT Office Visit [facility] [place] [address] [facility], [place] [address] Ivonne French PA-C [address] [place], [place] [address] 03/14/2024 10:00 AM EDT Office Visit [facility] [place] [address] [place], [place] [address] Ivonne French PA-C [address] [facility], [place] [address] 04/18/2024 10:00 AM EDT Office [facility] [place] [address] [facility] [place] [address] Ivonne French PA-C [address] [place] [address] 05/10/2024 8:15 AM EDT Office Visit Ophthalmology, [place] 21 [facility] [place] [address] Migel Ramires MD [facility] [place] [address] 05/16/2024 10:00 AM EDT Office Visit [facility] [place] [address] [place], [place] [address] Ivonne French PA-C [address] [facility] [place] [address] Scheduled Procedures Name Priority Associated Diagnoses Date/Ti [...] this encounter Medical Devices Implanted Type Area Marine Architect Device Identifier Shelf Expiration Date Model / Serial / Lot Lens Intraoc 21.0 - [id number] - [id number] Implanted:Qty : 1 on 07/06/2017 by Luis Eduardo Cole MD at OR [facility] Left: Eye BAUSCH & LOMB 01/05/2022 [id number] / [id number] / Lens Intraoc 21.0 - [id number] - [id number] Implanted:Qty : 1 on 07/20/2017 by Luis Eduardo Cole MD at OR [facility] Right: Eye BAUSCH & LOMB 01/05/2022 [id number] / [id number] / Syringe Prolaryn Del 1.0cc - [id number] Implanted:Qty : 1 on 11/20/2019 by Amber Jain MD at OR [facility] Right: Mouth [employer] 10/21/2021 [id number] / / [id number] Implant Silastic 7 Silicone Sw - [id number] Implanted:Qty : 1 on 05/28/2020 by Farhat Pate MD at OR [facility] Right: Throat Elimi [id number] / / documented as of this [...] the patient have Health Care Power of Pediatric Immunologist? No Code Status History Code Status Date [...] and were consensually agreed upon. Care Teams Assessment Clinician Relationship Specialty Start Date End Date Ivonne French PA-C [address] [facility] [place] [address] PCP - General Physician Wood Processing Worker 07/24/21 documented as of this encounter
--- OUTSIDE RECORDS SUMMARY | 2024-01-29 21:23 | External Medical Summary ---
Author Name Unknown Address Unknown Organization K01:LABORATORY [facility] - [address] [place] [address] Laboratory Report Ordering Provider Test Date Status BRENNAN JOSEPH 01/12/2024 08:45:00 Final Observation Date Value Abnormality Reference (Units ) Status REFERENCE LAB SCANNED REPORT 01/12/2024 08:45:00 See Scanned Report Final Performing Location LABORATORY C - [address] [place] [address]
--- OUTSIDE RECORDS SUMMARY | 2024-01-29 21:23 | External Medical Summary ---
Author Name Unknown Address Unknown Organization K1F:LABORATORY [facility] - [address] [place] [address] [address] [place] [address] Laboratory Report Ordering Provider Test Date Status BRADLY BERMAN 01/14/2024 10:23:48 Final Observation Date Value Abnormality Reference (Units ) Status WBC, Total 01/14/2024 10:23:48 0.81 Below lower panic limits 4.00-10.80 (K/uL) Final RBC 01/14/2024 10:23:48 2.71 3.85-5.15 (M/uL) Final Hemoglobin 01/14/2024 10:23:48 8.4 Below low normal 12.0-15.3 (g/dL) Final HCT 01/14/2024 10:23:48 23.8 Below low normal 36.0-45.2 (%) Final MCV 01/14/2024 10:23:48 87.8 81.5-97.5 (fL) Final MCH 01/14/2024 10:23:48 31.0 27.0-34.0 (pg) Final MCHC 01/14/2024 10:23:48 35.3 32.0-36.0 (g/dL) Final RDW 01/14/2024 10:23:48 13.4 11.5-15.5 (%) Final Platelets 01/14/2024 10:23:48 74 Below low normal 140-400 (K/uL) Final MPV 01/14/2024 10:23:48 9.8 6.6-11.1 (fL) Final Nucleated erythrocytes/100 leukocytes [Ratio] in Blood by Automated count 01/14/2024 10:23:48 0 <=0 (/100 WBCs) Final Performing Location LABORATORY [facility] [place] [address]
--- OUTSIDE RECORDS SUMMARY | 2024-01-29 21:23 | External Medical Summary ---
Author Name Unknown Address Unknown Organization K01:LABORATORY [facility] - [address] [place] [address] Laboratory Report Ordering Provider Test Date Status BRENNAN JOSEPH 01/12/2024 08:45:00 Final Observation Date Value Abnormality Reference (Units ) Status BONE MARROW FOR FLOW CYTOMETRY 01/12/2024 08:45:00 Yes Final Performing Location LABORATORY [facility] - [address] [place] [address]
--- OUTSIDE RECORDS SUMMARY | 2024-01-29 21:23 | External Medical Summary ---
Author Name Unknown Address Unknown Organization K1F:[facility]ORY [facility] [address] [facility] [place] [address] Laboratory Report Ordering Provider Test Date Status BRADLY BERMAN 01/14/2024 10:23:48 Final Observation Date Value Abnormality Reference (Units ) Status BUN 01/14/2024 10:23:48 25 Above high normal 6-20 (mg/dL) Final Creatinine 01/14/2024 10:23:48 0.9 0.5-1.0 (mg/dL) Final Glomerular filtration rate/1.73 sq M.predicted [Volume Rate/Area] in Serum, Plasma or Blood by Creatinine-based formula (CKD-EPI) 01/14/2024 10:23:48 75 >=60 (mL/min) Final eGFR is calculated based on the CKD-EPI 2020 equation SODIUM 01/14/2024 10:23:48 138 135-146 (m mol/L) Final Potassium 01/14/2024 10:23:48 4.1 3.5-5.1 (m mol/L) Final Cl 01/14/2024 10:23:48 98 98-107 (mm ol/L) Final CO2 01/14/2024 10:23:48 27 22-32 (mmo l/L) Final Anion gap 01/14/2024 10:23:48 13 7-15 (mmol /L) Final Glucose 01/14/2024 10:23:48 289 Above high normal 70 -120 (mg/dL) Final Albumin 01/14/2024 10:23:48 3.6 Below low normal 3.8 -5.0 (g/dL) Final AST (Aspartate aminotransferase) 01/14/2024 10:23:48 26 10-35 (U/L) Fin al Alk Phos 01/14/2024 10:23:48 118 35-130 (U/ L) Final Bilirubin, Total 01/14/2024 10:23:48 0.6 <=1 .2 (mg/dL) Final Calcium 01/14/2024 10:23:48 8.4 8.4-10.2 ( mg/dL) Final Protein 01/14/2024 10:23:48 6.9 6.0-8.3 (g /dL) Final ALT (Alanine aminotransferase) 01/14/2024 10:23:48 26 10-35 (U/L) Colin lee Performing Location LABORATORY [facility] [place] [address]
--- OUTSIDE RECORDS SUMMARY | 2024-01-29 21:23 | External Medical Summary | Summary of Care ---
Author Name Unknown Organization [facility] Address [address] [facility] [address] Phone [phone] Care Team Providers Care Director Life Name Role Phone Ivonne French PA-C Primary Care Provider [phone] Reason for Visit * Reason Comments Procedure BONE MARROW BIOPSY Encounter Details Date Type Department Care Team (Late st Contact Info) Description 01/12/2024 8:45 AM EST Office Visit Hematology/Oncology [facility] [place] [facility] [address] Shon Rice MD [address] [place] [address] 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sion [...] E11.9 1 Kit 0 05/25/2023 Active Pen [place] 32G X 4 MM Use as directed. [...] Hour (toPROL XL)Indications:Craig nary artery disease involving orutsararmiut coronary artery of orutsararmiut heart without angina pectoris Take 2 Tablets [...] 200 Strip 12/28/2023 Active OneTouch Delica Plus [id number] Use as directed. Use when checking blood [...] Sign Reading Time Taken Comments Blood Pressure 111/66 01/12/2024 8:15 AM EST Pulse 75 01/12/2024 8:15 AM EST Temperature 36.4 C (97.6 F) 01/12/2024 8:15 AM ES T Respiratory Rate 16 01/12/2024 8:15 AM EST Oxygen Saturation 94% 01/12/2024 8:15 AM EST Inhaled Oxygen Concentration - - Weight 86 kg (189 lb 8 oz) 01/12/2024 8:15 AM ES T Height 172.7 cm (5' 8") 01/12/2024 8:15 AM EST Body Mass Index 28.81 01/12/2024 8:15 AM EST documented in this [...] this encounter Patient Instructions * Patient Instructions* Shon Rice MD - 01/12/2024 8:53 AM EST Patient Instructions for Bone Marrow Aspiration/Biopsy A pressure dressing was applied to your bone marrow aspiration/biopsy site. This should be checked when you return home to look for any bleeding. If the dressing is wet with blood apply pressure to the site for ten minutes and then replace the dressing with a new bandage. If the bleeding doesn't stop, then call the doctor's office immediately or go to the local emergency room. If the dressing is dry when you check it, please remove the dressing prior to going to bed. You may want to cover the site with a bandaid for one or two days until the wound is healed. Should you notice any redness or warmth around the wound, please notify the doctor's office immediately. You may use Tylenol as directed on the bottle for any discomfort that occurs after you return home. Shon Rice MD documented in this encounter Progress Notes * Shon Rice MD - 01/12/2024 8:26 AM EST PROCEDURE: Bone Marrow Biopsy and Aspiration INDICATION: Case of acute myeloid leukemia, received Dacogen and venetoclax between 11/25/2023 -12/08/2023. INFORMED CONSENT: Obtain and in chart. Risks, benefits, and complications discussed with patient prior to procedure. SITE OF BONE MARROW: Right posterior superior iliac crest. ANESTHESIA: 1% Lidocaine - Local SUMMARY OF PROCEDURE: Patient place in left lateral decubitus position and posterior superior iliacspine palpated and marked. Area clean and draped in the usual fashion using sterile technique with Betadine. The skin, superficial and deep tissues, and periosteum anesthetized with 1% lidocaine in the usual fashion. Small skin incision made and bone marrow needle placed through this opening. Bone marrow needle advanced into bone with minimal difficulty. Bone marrow aspirate obtained without difficulty. Bone marrow needle advanced further and biopsy taken in the usual fashion without difficulty. Lab assisted and spicules present with biopsy specimen. Direct pressure applied to incisional sitewith good hemostasis and a 4 x [address] as a pressure dressing. Patient tolerated the procedure well and will remain in the Heme/Onc Clinic for approx 30 minutes. SPECIMENS: Bone marrow aspiration and bone marrow biopsy sent to the laboratory. Bone marrow sent for flow cytometry cytogenetics, FISH. ESTIMATED BLOOD LOSS: Less than approx 2 milliliters. COMPLICATIONS: NONE DISPOSITION: As above, patient to remain in Heme/Onc Clinic for approx 30 minutes prior to going home. May remove pressure dressing tomorrow AM. Will inform her regarding the bone marrow findings. Dr. Shon Rice Hem/Onc documented in this encounter Nursing Notes * Lenore Diaz LPN - 01/12/2024 8:16 AM EST Patient identifed by name and birthdate Do you have any concerns about pain management for today's visit? No Living Will or Advance Directive for Health Care as noted on the problem list. [facility] is a way you can talk to your provider on line through e-mail. Would you like to sign up? I can activate it for you? ALREADY ACTIVE Filed Vitals: 01/12/24 0815 BP: 111/66 Pulse: 75 Resp: 16 Temp: 36.4 C (97.6 F) TempSrc: Tympanic SpO2: 94% Weight: 86 kg (189 lb 8 oz) Height: 1.727 m (5' 8") Patient was instructed to not get up [...] Description 01/14/2024 11:30 AM EST Laboratory Laboratory, [address] [phone] [facility], Lab [address] [place] [address] 01/14/2024 12:30 PM EST Hem/Onc Treatment Hematology/Oncology Treatment, [address] [place] [address] [facility], Chair10 Hem Onc [address] [place] [address] [place] [address] 01/17/2024 10:30 AM EDT Laboratory Laboratory, [address] [place] [address] [facility], Lab [address] [place] [address] 01/17/2024 11:30 AM EDT Office Visit Hematology/Oncology, [address] [place] [address] Ortega Verde MD [address] [place] [address] 01/17/2024 12:00 PM EDT Hem/Onc Treatment Hematology/Oncology Treatment, [address] [place] [address] [facility], Chair10 Hem Onc [facility] [place] [address] 01/26/2024 9:00 AM EDT Office Visit Pharmacy, [facility] [place] [address] [facility] [address] [place] [place] [address] 01/31/2024 9:00 AM EDT Imaging Radiology [facility] 1st [facility] [address] [place] [address] 02/09/2024 11:00 AM EDT Office Visit Palliative Medicine, [facility] [place] 400 [facility] 5th [place] [address] Nati Easley PA-C 400 [facility] [place] [address] 02/10/2024 11:40 AM EDT Office Visit [facility] [place] [address] [address] [facility], [place] [phone] [phone] Ivonne French PA-C [address] [facility], [place] [address] 03/14/2024 10:00 AM EDT Office Visit [facility] [place] [address] [facility], [place] [address] Ivonne French PA-C [address] [facility], [place] [address] 04/18/2024 10:00 AM EDT Office Visit [facility] [place] [address] [facility], [place] [address] Ivonne French PA-C [address] [place] [address] 05/10/2024 8:15 AM EDT Office Visit Ophthalmology, [place] 21 [place] [address] Migel Ramires MD 21 [place] [address] 05/16/2024 10:00 AM EDT Office Visit [facility] [address] [place] [address] Ivonne French PA-C [address] [place] [address] Pending Results Name Type Priority Associated Diagnoses Date /Time BONE MARROW PANEL Lab Routine 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sion (HCC) 01/12/2024 7:56 AM EST SURGICAL PATHOLOGY Pathology Routine 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sion (HCC) 01/12/2024 8:45 AM EST BONE MARROW ASPIRATE LAVENDER (MOLECULAR) - 2 TUB* Lab Routine 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sion (HCC) 01/12/2024 8:45 AM EST BONE MARROW ASPIRATE GREEN (FLOW) Lab Routine 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sion (HCC) 01/12/2024 8:45 AM EST BONE MARROW ASPIRATE GREEN (REFERRED) Lab Routine 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sion (HCC) 01/12/2024 8:45 AM EST BONE MARROW WITH REFLEX TESTING Pathology Routine 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sion (HCC) 01/12/2024 7:56 AM EST COMPREHENSIVE BONE MARROW CONSULTATION Pathology Routine 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sion (HCC) 01/12/2024 8:45 AM EST Scheduled Orders Name Type Priority Associated Diagnoses Orde r Schedule DIAGNOSTIC BONE MARROW; BIOPSY(IES) AND ASPIRATION(S) Procedures Routine 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sion (HCC) Ordered: 01/12/2024 BONE MARROW PANEL Lab Routine 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sion (HCC) Expected: 01/12/2024, Expires: 01/11/2025 Scheduled Procedures Name Priority Associated Diagnoses Date/Ti [...] this encounter Medical Devices Implanted Type Area Airport Operations Officer Device Identifier Shelf Expiration Date Model / Serial / Lot Lens Intraoc 21.0 - [id number] - [id number] Implanted:Qty : 1 on 07/06/2017 by Luis Eduardo Cole MD at OR [facility] Left: Eye BAUSCH [employer] LOMB 01/05/2022 [id number] / [id number] / Lens Intraoc 21.0 - [id number] - [id number] Implanted:Qty : 1 on 07/20/2017 by Luis Eduardo Cole MD at OR [facility] Right: Eye BAUSCH [employer] LOMB 01/05/2022 [id number] / [id number] / Syringe Prolaryn Del 1.0cc - [id number] Implanted:Qty : 1 on 11/20/2019 by Amber Jain MD at OR [facility] [place] [place] Right: Mouth [employer] 10/21/2021 [id number] / / [id number] Implant Silastic 7 Silicone Sw - [id number] Implanted:Qty : 1 on 05/28/2020 by Farhat Pate MD at OR [facility] [place] [place] Right: Throat Skilljar [id number] / / documented as of this encounter Visit Diagnoses Diagnosis 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sion (HCC)- Primary documented in this encounter Advance Directives Latest Code Status on File Code Status Date Activated Date Inactivated Comments No Code 11/24/2023 7:24 PM 12/28/2023 9:25 PM This order reflects the patients wishes and were consensually agreed upon. Question Answer Comments Discussion of Advance Directives occurred with: Patient Does the patient have a Living Will? No Does the patient have Health Care Power of Retail And Promotions Coordinator? No Code Status History Code Status Date [...] and were consensually agreed upon. Care Teams Director Life Relationship Specialty Start Date End Date Ivonne French PA-C [address] [place] [address] PCP - General Physician Attendant [facility] 07/24/21 documented as of this encounter
--- OUTSIDE RECORDS SUMMARY | 2024-01-29 21:23 | External Medical Summary ---
Author Name Unknown Address Unknown Organization K09:LABORATORY [place] [address] Laboratory Report Ordering Provider Test Date Status BRADLY BERMAN 01/12/2024 07:56:34 Final Observation Date Value Abnormality Reference (Units ) Status SYNC LEUKOCYTES IN BLOOD BY AUTOMATED COUNT 01/12/2024 07:56:34 0.74 Below lower panic limits 4.00-10.80 (K/uL) Final Neutrophils/100 leukocytes in Blood by Manual count 01/12/2024 07:56:34 4.0 Below low normal 40.0-75.0 (%) Final Lymphocytes/100 leukocytes in Blood by Manual count 01/12/2024 07:56:34 92.0 Above high normal 18.0-42.0 (%) Final Monocytes/100 leukocytes in Blood by Manual count 01/12/2024 07:56:34 4.0 1.0-11.0 (%) Final Neutrophils [#/volume] in Blood by Manual count 01/12/2024 07:56:34 0.03 Below low normal 1.80-7.70 (K/uL) Final Lymphocytes [#/volume] in Blood by Manual count 01/12/2024 07:56:34 0.68 Below low normal 1.00-4.80 (K/uL) Final Monocytes [#/volume] in Blood by Manual count 01/12/2024 07:56:34 0.03 0.00-1.10 (K/uL) Final Nucleated erythrocytes/100 leukocytes [Ratio] in Blood by Automated count 01/12/2024 07:56:34 Final Performing Location [facility]ATORY [place] [address]
--- OUTSIDE RECORDS SUMMARY | 2024-01-29 21:23 | External Medical Summary ---
Author Name Unknown Address Unknown Organization K1F:LABORATORY [facility] - [address] [place] [address] [place] [address] Laboratory Report Ordering Provider Test Date Status BRADLY BERMAN 01/14/2024 10:23:48 Final Observation Date Value Abnormality Reference (Units ) Status SYNC LEUKOCYTES IN BLOOD BY AUTOMATED COUNT 01/14/2024 10:23:48 0.81 Below lower panic limits 4.00-10.80 (K/uL) Final Neutrophils/100 leukocytes in Blood by Manual count 01/14/2024 10:23:48 6.0 Below low normal 40.0-75.0 (%) Final Lymphocytes/100 leukocytes in Blood by Manual count 01/14/2024 10:23:48 92.0 Above high normal 18.0-42.0 (%) Final Monocytes/100 leukocytes in Blood by Manual count 01/14/2024 10:23:48 2.0 1.0-11.0 (%) Final Neutrophils [#/volume] in Blood by Manual count 01/14/2024 10:23:48 0.05 Below low normal 1.80-7.70 (K/uL) Final Lymphocytes [#/volume] in Blood by Manual count 01/14/2024 10:23:48 0.75 Below low normal 1.00-4.80 (K/uL) Final Monocytes [#/volume] in Blood by Manual count 01/14/2024 10:23:48 0.02 0.00-1.10 (K/uL) Final Performing Location LABORATORY [facility] - [address] [facility] [address] [place] [address]
--- OUTSIDE RECORDS SUMMARY | 2024-01-29 21:23 | External Medical Summary ---
Author Name Unknown Address Unknown Organization K09:LABORATORY [place] [address] Laboratory Report Ordering Provider Test Date Status BRADLY BERMAN 01/12/2024 07:56:34 Final Observation Date Value Abnormality Reference (Units ) Status WBC, Total 01/12/2024 07:56:34 0.74 Below lower panic limits 4.00-10.80 (K/uL) Final RBC 01/12/2024 07:56:34 2.65 3.85-5.15 (M/uL) Final Hemoglobin 01/12/2024 07:56:34 8.0 Below low normal 12.0-15.3 (g/dL) Final HCT 01/12/2024 07:56:34 23.4 Below low normal 36.0-45.2 (%) Final MCV 01/12/2024 07:56:34 88.3 81.5-97.5 (fL) Final MCH 01/12/2024 07:56:34 30.2 27.0-34.0 (pg) Final MCHC 01/12/2024 07:56:34 34.2 32.0-36.0 (g/dL) Final RDW 01/12/2024 07:56:34 13.7 11.5-15.5 (%) Final Platelets 01/12/2024 07:56:34 62 Below low normal 140-400 (K/uL) Final MPV 01/12/2024 07:56:34 9.1 6.6-11.1 (fL) Final Performing Location LABORATORY [place] [address]
--- OUTSIDE RECORDS SUMMARY | 2024-01-29 21:23 | External Medical Summary | Summary of Care ---
Author Name Unknown Organization [facility] Address [address] [place] [address] Phone [phone] Care Team Providers Care Sales Trainer Name Role Phone Ivonne French PA-C Primary Care Provider [phone] Reason for Visit * Reason Onset Date Comments Outreach Specialist Documentation 01/12/2024 Encounter Details Date Type Department Care Team (Late st Contact Info) Description [facility]/12[facility] [address], [place] [phone] Austin Mckenna, MALKA Outreach Specialist Documentation Allergies Active Allergy Reactions Criticality Noted Date [...] E11.9 1 Kit 0 05/25/2023 Active Pen Pierson 32G X 4 MM Use as directed. 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 Use when checking blood [...] failure 12/13/2023 01/07/2024 Toe osteomyelitis, left 05/29/2021 2022 Ulcer of left great toe due to [...] encounter Miscellaneous Notes * Telephone Encounter - Austin Mckenna MSW - 01/12/2024 12:50 PM EST SW left a message for Ms. Resendez introducing himself and encouraging her to call back at her earliest convenience. SW stated he would like to speak with her about possible supports and resources available to her within the [facility]. SW stated he would also be sending his contact informationto her e- mail address. Services provided include: Care Coordination Community Resource Planning Follow-up Calls and Visits Mina Lopez, FULL FASHIONED GARMENT KNITTER, FORGESMITH Patient Access Director Hematology/Oncology [place] Office: [phone] [place] Office: [phone] E-mail: [email or web address] documented in this encounter Plan of Treatment Upcoming Encounters Date Type Department Care Team (Late st Contact Info) Description 01/14/2024 11:30 AM EST Laboratory Laboratory, [address] [place] [phone] [facility], Lab [address] [place] [address] [place] [address] 01/14/2024 12:30 PM EST Hem/Onc Treatment Hematology/Oncology Treatment, [address] [address] [facility], Chair10 Hem Onc [address] [place], [place] [address] [address] 01/17/2024 10:30 AM EDT Laboratory Laboratory, [address] [phone] [facility], Lab [address] [place], [place] [address] [address] 01/17/2024 11:30 AM EDT Office Visit Hematology/Oncology, [address] [address] Ortega Verde MD [address] [place] [address] 01/17/2024 12:00 PM EDT Hem/Onc Treatment Hematology/Oncology Treatment, [facility] 400 [facility] [address] Gl, Chair10 Hem Onc 400 [place] [address] 01/26/2024 9:00 AM EDT Office Visit Pharmacy, [facility] [address] [facility] [place] [address] [facility] [address] [facility] [place] [address] 01/31/2024 9:00 AM EDT Imaging Radiology [facility] [address] [facility] [place] [address] 02/09/2024 11:00 AM EDT Office Visit Palliative Medicine, [address] 5th [place] [address] Nati Easley PA-C 400 [place] [address] 02/10/2024 11:40 AM EDT Office [address] [phone] Ivonne French PA-C [address] [facility] [address] 03/14/2024 10:00 AM EDT Office Visit [place] [address] [address] [facility] [phone] Ivonne French PA-C [address] [facility], [place] [address] 04/18/2024 10:00 AM EDT Office Visit [facility], [place] [address] [address] [facility], [place] [address] Ivonne French PA-C [address] [facility], [place] [address] 05/10/2024 8:15 AM EDT Office Visit Ophthalmology, [place] [address] [facility] [place] [address] Migel Ramires MD [address] [place] [address] 05/16/2024 10:00 AM EDT Office Visit [facility] [address] [facility] [phone] Ivonne French PA-C [address] [facility], [place] [phone] Scheduled Procedures Name Priority Associated Diagnoses Date/Ti [...] Depression Screening 12/30/2024 12/30/2023 GFR 01/11/2025 01/12/2024, 0302/2024, 01/07/2024, Additional history exists PAP SMEAR-EVERY 3 [...] this encounter Medical Devices Implanted Type Area Managed Care Liaison Device Identifier Shelf Expiration Date Model / Serial / Lot Lens Intraoc 21.0 - [id number] - [id number] Implanted:Qty : 1 on 07/06/2017 by Luis Eduardo Cole MD at OR [facility] Left: Eye BAUSCH & LOMB 01/05/2022 [id number] / [id number] / Lens Intraoc 21.0 - [id number] - [id number] Implanted:Qty : 1 on 07/20/2017 by Luis Eduardo Cole MD at OR [facility] Right: Eye BAUSCH & LOMB 01/05/2022 [id number] / [id number] / Syringe Prolaryn Del 1.0cc - [id number] Implanted:Qty : 1 on 11/20/2019 by Amber Jain MD at [place] [facility] Right: Mouth [employer] 10/21/2021 [id number] / / [id number] Implant Silastic 7 Silicone Sw - [id number] Implanted:Qty : 1 on 05/28/2020 by Farhat Pate MD at [place] [facility] Right: Throat [id number] / / documented as of this [...] the patient have Health Care Power of Appliance Worker? No Code Status History Code Status Date [...] and were consensually agreed upon. Care Teams Sales Trainer Relationship Specialty Start Date End Date Ivonne French PA-C [address] [facility] [place] [address] PCP - General Physician Wrapper Selector 07/24/21 documented as of this encounter
--- OUTSIDE RECORDS SUMMARY | 2024-01-29 21:23 | External Medical Summary | Summary of Care ---
Author Name Unknown Organization [facility] Address [address] [place] [address] Phone [phone] Care Team Providers Care Car Scrubber Name Role Phone Ivonne French PA-C Primary Care Provider [phone] Reason for Visit * Reason Comments Outpatient Testing Encounter Details Date Type Department Care Team (Late st Contact Info) Description 01/12/2024 8:10 AM EST Laboratory Laboratory [facility] [address] [place] [phone] [facility] [address] [place] [address] 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sion [...] E11.9 1 Kit 0 05/25/2023 Active Pen [place] 32G X 4 MM Use as directed. [...] Hour (toPROL XL)Indications:Craig nary artery disease involving [place] coronary artery of [place] heart without angina pectoris Take 2 Tablets [...] 200 Strip 12/28/2023 Active OneTouch Delica Plus Tehskd78N Use as directed. Use when checking blood [...] 01/12/2024 8:45 AM EST Office Visit Hematology/Oncology [facility] [place] [address] [facility] [place], [place] [phone] Shon Rice MD [address] [place] [address] Arrived 01/12/2024 10:30 AM EST Hem/Onc Treatment Hematology/Oncology Treatment, [address], [place] [address] [facility], Chair11 Hem Onc [address] [place] [address], [place] [address] 01/14/2024 11:30 AM EST Laboratory Laboratory, [address] [place] [phone] [facility], Lab [address] [place] [address], [place] [address] 01/14/2024 12:30 PM EST Hem/Onc Treatment Hematology/Oncology Treatment, [address], [place] [address] [facility], Chair10 Hem Onc [address] [place] [address], [place] [address] 01/17/2024 10:30 AM EDT Laboratory Laboratory, [address], [place] [address] [facility], Lab [address] [place] [address], [place] [address] 01/17/2024 11:30 AM EDT Office Visit Hematology/Oncology, [address] [place] [address] Ortega Manuel MD [address] [place] [address] 01/17/2024 12:00 PM EDT Hem/Onc Treatment Hematology/Oncology Treatment, [facility] 400 [place] [address] Gl, Chair10 Hem Onc [address] [place] [address] 01/26/2024 9:00 AM EDT Office Visit Pharmacy, [facility] 132 [facility] [place] [address] [facility] 132 [facility] [place] [address] 01/31/2024 9:00 AM EDT Imaging Radiology [facility]st [facility] 132 [facility] [place] [address] 02/09/2024 11:00 AM EDT Office Visit Palliative Medicine, [address] 5th [place] [address] Nati Easley PA-C 400 [place] [address] 02/10/2024 11:40 AM EDT Office Visit [address], [place] [phone] Ivonne French PA-C [address] [facility], [place] [address] 03/14/2024 10:00 AM EDT Office Visit [place] [address] [facility] [phone] Ivonne French PA-C [address] [facility], [place] [address] 04/18/2024 10:00 AM EDT Office Visit [facility] [place] [address] [place] [facility] [place] [phone] Ivonne French PA-C [address] [facility], [place] [phone] 05/10/2024 8:15 AM EDT Office Visit Ophthalmology, [place] [address] [place] [address] Migel Ramires MD [facility] [place] [address] 05/16/2024 10:00 AM EDT Office Visit [facility] [place] [address] [facility], [place] [address] Ivonne French PA-C [address] [facility], [place] [phone] Pending Results Name Type Priority Associated Diagnoses Date /Time CBC WITH WBC DIFFERENTIAL Lab STAT 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sion (HCC) 01/12/2024 7:56 AM EST COMPREHENSIVE METABOLIC PANEL Lab STAT 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sion (HCC) 01/12/2024 7:56 AM EST CBC Lab STAT 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sion (HCC) 01/12/2024 7:56 AM EST DIFFERENTIAL, AUTOMATED Lab STAT 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sion (HCC) 01/12/2024 7:56 AM EST Scheduled Procedures Name Priority Associated [...] 07/03/2020, Additional history exists Mammogram 01/28/2024 01/27/2023, 2 12/2022, 08/03/2022, Additional history exists Diabetic Eye Exam [...] this encounter Medical Devices Implanted Type Area Rig Hand Device Identifier Shelf Expiration Date Model / Serial / Lot Lens Intraoc 21.0 - [id number] - [id number] Implanted:Qty : 1 on 07/06/2017 by Luis Eduardo Cole MD at OR [facility] Left: Eye BAUSCH [employer] LOMB 01/05/2022 [id number] / [id number] / Lens Intraoc 21.0 - [id number] - [id number] Implanted:Qty : 1 on 07/20/2017 by Luis Eduardo Cole MD at OR [facility] Right: Eye BAUSCH & LOMB 01/05/2022 [id number] / [id number] / Syringe Prolaryn Del 1.0cc - [id number] Implanted:Qty : 1 on 11/20/2019 by Amber Jain MD at OR [facility] Right: Mouth [employer] 10/21/2021 [id number] / / [id number] Implant Silastic 7 Silicone Sw - [id number] Implanted:Qty : 1 on 05/28/2020 by Farhat Pate MD at OR [facility] Right: Throat [id number] / / documented as of this [...] the patient have Health Care Power of Commissary Superintendent? No Code Status History Code Status Date [...] and were consensually agreed upon. Care Teams Car Scrubber Relationship Specialty Start Date End Date Ivonne French PA-C [address] [place] [address] [place] [address] PCP - General Physician Rock Splitter 07/24/21 documented as of this encounter
--- OUTSIDE RECORDS SUMMARY | 2024-01-29 21:24 | External Medical Summary | Summary of Care ---
Author Name Unknown Organization [facility] Address [address] [place] [address] Phone [phone] Care Team Providers Care Social Sciences Lecturer Name Role Phone Ivonne French PA-C Primary Care Provider [phone] Reason for Visit * Reason Comments Outpatient Testing Encounter Details Date Type Department Care Team (Late st Contact Info) Description 01/07/2024 11:30 AM EST Laboratory Laboratory, [facility] 400 [place] [phone] [facility], Lab [address] [place] [address] 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sion (HCC); Hypocalcemia Allergies Active Allergy Reactions Criticality Noted Date Comments Adhesive Tape 04/21/2016 Glue off the old style medical tape. documented as of this encounter (statuses as of 01/07/2024) Medications Medication Sig Dispensed Refills Start Date [...] E11.9 1 Kit 0 05/25/2023 Active Pen [place] 32G X 4 MM Use as directed. [...] Hour (toPROL XL)Indications:Craig nary artery disease involving [place] coronary artery of [place] heart without angina pectoris Take 2 Tablets [...] per day 200 Strip 5 12/28/2023 Active tu.nrTouch Delica Plus Jalmfy91G Use as directed. Use when checking blood [...] the morning. 31 Tablet 5 01/05/2024 Active documented as of this encounter (statuses as of 01/07/2024) Active Problems Problem Noted Date Diagnosed Date Immunocompromised state due to drug therapy 12/09 [...] as of this encounter (statuses as of 01/07/2024) Resolved Problems Problem Noted Date Diagnosed Date [...] as of this encounter (statuses as of 01/07/2024) Immunizations Name Administration Dates Next Due COVID-19 [...] Care Team (Late st Contact Info) Description 01/07/2024 12:30 PM EST Hem/Onc Treatment Hematology/Oncology Treatment, [address] [address] [facility], Chair4 Hem Onc [address] [place], [place] [address] [address] Arrived 01/10/2024 10:30 AM EST Laboratory Laboratory, [address] [place] [address] [facility], Lab [address] [place] [address] 01/10/2024 11:30 AM EST Telemedicine Hematology/Oncology , [address] [address] Ortega Verde MD [address] [place] [address] Cart, Telemed [facility] Hem Onc Clinic [address] [place] [address] 01/10/2024 12:00 PM EST Hem/Onc Treatment Hematology/Oncology Treatment, [address] [address] [facility], Chair9 Hem Onc [address] [place] [address] 01/10/2024 12:30 PM EST Office Visit Palliative Medicine, [address] 5th [place] [address] Nati Easley, PA-C [address] [place] [address] 01/12/2024 8:10 AM EST Laboratory Laboratory [address] [place] [place] [address] [place] [address] [place], Lab Scenery [address] [place] [address] 01/12/2024 8:45 AM EST Office Visit Hematology/Oncology [address] [place] [address] [place] [phone] Shon Rice MD [address] [place], [place] [address] 01/14/2024 11:30 AM EST Laboratory Laboratory, [facility] 400 [facility] [place] [address] [facility], Lab [address] [facility] [address] 01/14/2024 12:30 PM EST Hem/Onc Treatment Hematology/Oncology Treatment, [address] [address] [facility], Chair10 Hem Onc [address] [place], [place] [address] [address] 01/17/2024 10:00 AM EDT Hospital Encounter OR [facility], Operating Room, [facility] - 4th Floor [address] [place] [address] [facility], In And Out Surgery [address] [place] [address] 01/17/2024 10:00 AM EDT - 01/17/2024 11:00 AM EDT Surgery OR [facility], Operating Room, [facility] - [address] [place] [address] [place] [address] [facility], In And Out Surgery [address] [place] [address] PRE / POST CARE 01/26/2024 9:00 AM EDT [facility] 132 [facility] [place] [address] [facility] [address] [place] [address] 01/31/2024 9:00 AM EDT Imaging Radiology [address] 132 [place] [address] 02/10/2024 11:40 AM EDT Office [address] [phone] Ivonne French PA-C [address] [facility] [place] [address] 03/14/2024 10:00 AM EDT Office Visit [facility] [place] [address] [place] [address] Ivonne French PA-C [address] [place] [facility] [place] [address] 04/18/2024 10:00 AM EDT Office Visit [facility] [place] [address] [facility], [place] [address] Ivonne French PA-C [address] [facility], [place] [address] 05/10/2024 8:15 AM EDT Office Visit [facility] [place] 21 [place] [address] Migel Ramires MD 21 [place] [address] 05/16/2024 10:00 AM EDT Office Visit [facility] [place] [address] [facility], [place] [phone] Ivonne French PA-C [address] [facility], [place] [phone] Pending Results Name Type Priority Associated Diagnoses Date /Time CBC WITH WBC DIFFERENTIAL Lab STAT 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sion (HCC) 01/07/2024 11:27 AM EST COMPREHENSIVE METABOLIC PANEL Lab STAT 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sion (HCC) 01/07/2024 11:27 AM EST TYPE AND SCREEN Lab STAT 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sion (HCC) 01/07/2024 11:27 AM EST CBC Lab STAT 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sion (HCC) 01/07/2024 11:27 AM EST DIFFERENTIAL, AUTOMATED Lab STAT 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sion (HCC) 01/07/2024 11:27 AM EST 25-HYDROXY VITAMIN D Lab STAT 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sion (HCC) Hypocalcemia 01/07/2024 11:26 AM EST CALCIUM, IONIZED Lab STAT 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sion (HCC) Hypocalcemia 01/07/2024 11:26 AM EST MAGNESIUM Lab STAT 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sion (HCC) Hypocalcemia 01/07/2024 11:26 AM EST PTH-RELATED PROTEIN (PTH-RP) Lab STAT 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sion (HCC) Hypocalcemia 01/07/2024 11:26 AM EST PHOSPHORUS Lab STAT 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sion (HCC) Hypocalcemia 01/07/2024 11:26 AM EST Scheduled Procedures Name Priority Associated Diagnoses Date/Ti me PRE / POST CARE 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sion (HCC) 01/17/2024 10:00 AM EDT COLONOSCOPY FLEXIBLE PROXIMAL DIAGNOSTIC Recall History of [...] history exists Depression Screening 12/30/2024 12/30/2023 GFR 01/05/2025 01/05/2024, 12/10, 12/28/2023, Additional history exists PAP SMEAR-EVERY 3 YRS,AGES [...] this encounter Medical Devices Implanted Type Area Editorial Specialist Device Identifier Shelf Expiration Date Model / Serial / Lot Lens Intraoc 21.0 - [id number] - [id number] Implanted:Qty : 1 on 07/06/2017 by Luis Eduardo Cole MD at OR [facility] Left: Eye BAUSCH [employer] LOMB 01/05/2022 [id number] / [id number] / Lens Intraoc 21.0 - [id number] - [id number] Implanted:Qty : 1 on 07/20/2017 by Luis Eduardo Cole MD at OR [facility] Right: Eye BAUSCH [employer] LOMB 01/05/2022 [id number] / [id number] / Syringe Prolaryn Del 1.0cc - [id number] Implanted:Qty : 1 on 11/20/2019 by Amber Jain [place] [facility] [place]: Mouth [employer] 10/21/2021 [id number] / / [id number] Implant Silastic 7 Silicone Sw - [id number] Implanted:Qty : 1 on 05/28/2020 by Farhat Pate MD [place] [facility] Right: Throat [employer] [id number] / / documented as of this encounter Visit Diagnoses Diagnosis 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sion (HCC) Hypocalcemia 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sion [...] the patient have Health Care Power of Italian Lecturer? No Code Status History Code Status Date [...] and were consensually agreed upon. Care Teams Social Sciences Lecturer Relationship Specialty Start Date End Date Ivonne French PA-C [address] [place] [facility] [address] PCP - General Physician Dietary Aid 07/24/21 documented as of this encounter
--- OUTSIDE RECORDS SUMMARY | 2024-01-29 21:24 | External Medical Summary | Summary of Care ---
Author Name Unknown Organization [facility] Address [address] [place] [address] Phone [phone] Care Team Providers Care Customer Service Driver Name Role Phone Ivonne French PA-C Primary Care Provider [phone] Reason for Visit * Reason Comments Follow Up Encounter Details Date Type Department Care Team (Late st Contact Info) Description 01/10/2024 12:30 PM EST Office Visit Palliative Medicine, [facility] [address] [facility] 5th [place] [address] Nati Easley PA-C [address] [place] [address] Other constipation*; Encounter for palliative care Allergies Active Allergy Reactions Criticality Noted Date [...] E11.9 1 Kit 0 05/25/2023 Active Pen Cascade 32G X 4 MM Use as directed. 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 Use when checking blood [...] Sign Reading Time Taken Comments Blood Pressure 109/46 01/10/2024 11:13 AM EST Pulse 76 01/10/2024 11:13 AM EST Temperature 37.4 C (99.3 F) 01/10/2024 1 1:13 AM EST Respiratory Rate - - Oxygen Saturation 96% 01/10/2024 11: 13 AM EST Inhaled Oxygen Concentration - - Weight 87.9 kg (193 lb 12.6 oz) 024 11:13 AM EST Height - - Body Mass Index 29.46 01/07/2024 9:59 AM EST documented in this encounter Functional [...] this encounter Patient Instructions * Patient Instructions* Reyna Hirsch LPN - 01/10/2024 11:13 AM EST Our Palliative Medicine Clinic is available Wednesday through Wednesday during business hours, so we are unavailable on weekends and holidays. Please ensure that you request refills early in the week as itmay take 1-2 days for them to be addressed and filled, for authorizations to be approved, or for the pharmacy to order them if needed. You can contact our office at [phone], which is our clinic in [place], or you can message us on [email or web address]. If you have an emergency outside of these hours, we recommend calling your primary care clinic, Oncology office, or going to the ER if you have a medical emergency. 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 Patient doing okay, however she is very constipated. She is taking Colace, Linzess and MiraLax daily. Her last bowel movement was 3 days ago. Palliative ROS: Pain: no Nausea/Vomiting no Constipation: as above Confusion: no Sleep: good Activities: trying to do usual activities Appetite: poor, but improving Mood: denies anxiety/depression today Other: Examination: BP 109/46 | Pulse 76 | Temp 37.4 C (99.3 F) | Wt 87.9 kg (193 lb 12.6 oz) | LMP 09/08/2016 | SpO2 96% | BMI 29.46 kg/m | BSA 2.05 m Constitutional: no acute distress, chronically ill HENT: normocephalic, atraumatic. Eyes: anicteric, sclera and conjunctiva normal. Neck: no stridor Chest: normal respiratory effort Abdominal: nondistended Extremities: no edema Data Review: External notes reviewed: - Reviewed notes from Dr Verde from 01/10/2024 - plan is to get a unit of blood - Reviewed notes from PCP on 01/06/23 - no changes Decision-making Capacity: Does Patient have Decisional Capacity? y Does Patient have a Healthcare Agent? Y, brother Advanced Care Planning (see ACP Tab): AD in EMR: no POLST in EMR: no ASSESSMENT/PLAN: Junay Resendez is a 58 year old female seen in follow-up for goals of care and pain and symptom management. AML - Plan is to get blood transfusion today Constipation - Offered suppository, she declines at this time, Heme-Onc sent in a prescription for senna-Colace 2 tablets twice daily, advised her to not take the other Colace that she is taking with this. Follow up in 3-4 weeks I spent a total of 26 minutes on the date of service in preparation, delivery, and documentation ofthe care provided to Juany Resendez excluding any time spent in the performance of separately billed services. Kathy Borges MD Palliative Medicine Physician [facility] Office: [phone] 01/10/2024 documented in this encounter Plan of Treatment Upcoming Encounters Date Type Department Care Team (Late st Contact Info) Description 01/12/2024 8:10 AM EST Laboratory Laboratory [place] [place] [facility] Carrizales [address] [place] [phone] Sofie [facility] [address] [place] [address] 01/12/2024 8:45 AM EST Office Visit Hematology/Oncology Camryn Carrizales [place] [address] [facility] [place], [place] [address] Shon Rice MD [address] [facility] [place] [address] 01/13/2024 9:00 AM EST Hem/Onc Treatment Hematology/Oncology Treatment, [address] [address] [facility], Bed1 Hem Onc [address] [place] [address] 01/14/2024 11:30 AM EST Laboratory Laboratory, [address] [address] [facility], Lab [address] [place] [address] 01/14/2024 12:30 PM EST Hem/Onc Treatment Hematology/Oncology Treatment, [address] [address] [facility], Chair10 Hem Onc [address] [place] [address] 01/17/2024 10:30 AM EDT Laboratory Laboratory, [address] [address] [facility], Lab [address] [place] [address] 01/17/2024 11:30 AM EDT Office Visit Hematology/Oncology, [address] [address] Ortega Verde MD [address] [place], [place] [phone] 01/17/2024 12:00 PM EDT Hem/Onc Treatment Hematology/Oncology Treatment, [facility] [address] [place], [place] [address] [facility], Chair10 Hem Onc [address] [facility] [place], [place] [address] 01/26/2024 9:00 AM EDT Office Visit Pharmacy, [facility] [address] [facility] [place] [address] [facility] [address] [facility] [place] [address] 01/31/2024 9:00 AM EDT Imaging Radiology [facility] 1st [facility] [address] [place] [address] 02/10/2024 11:40 AM EDT Office Visit [facility] [place] [address] [address] [facility] [address] Ivonne French PA-C [address] [facility], [place] [address] 03/14/2024 10:00 AM EDT Office Visit [facility] [place] [address] [address] [facility] [address] Ivonne French PA-C [address] [facility], [place] [address] 04/18/2024 10:00 AM EDT Office Visit [facility] [place] [address] [address] [facility] [place] [address] Ivonne French PA-C [address] [facility], [place] [address] 05/10/2024 8:15 AM EDT Office Visit Ophthalmology, [place] [address] [place] [address] Migel Ramires MD [address] [place] [address] 05/16/2024 10:00 AM EDT Office Visit [facility] [address] [place] [address] Ivonne French PA-C [address] [place], [place] [phone] Scheduled Procedures Name Priority Associated Diagnoses Date/Ti [...] 01/21/2022, Additional history exists HbA1c 05/09/2024 11/09/2023, 08/06/2023, 04/27/2023, Additional history exists Albumin/Creatinine Ratio 11/15/2024 [...] this encounter Medical Devices Implanted Type Area Forestry Fire Aide Device Identifier Shelf Expiration Date Model / Serial / Lot Lens Intraoc 21.0 - [id number] - [id number] Implanted:Qty : 1 on 07/06/2017 by Luis Eduardo Cole MD at OR [facility] Left: Eye [employer] 01/05/2022 [id number] / [id number] / Lens Intraoc 21.0 - [id number] - [id number] Implanted:Qty : 1 on 07/20/2017 by Luis Eduardo Cole MD at OR [facility] Right: Eye [employer]OM[employer] 01/05/2022 [id number] / [id number] / Syringe Prolaryn Del 1.0cc - [id number] Implanted:Qty : 1 on 11/20/2019 by Amber Jain MD at [place] [facility] Right: Mouth [employer] 10/21/2021 [id number] / / [id number] Implant Silastic 7 Silicone Sw - [id number] Implanted:Qty : 1 on 05/28/2020 by Farhat Pate MD at OR [facility] Right: Throat [employer] [id number] / / documented as of this encounter Visit Diagnoses Diagnosis Other constipation- Primary Encounter for palliative care documented in this encounter Advance Directives Latest Code Status on File Code Status Date Activated Date Inactivated Comments No Code 11/24/2023 7:24 PM 12/28/2023 9:25 PM This order reflects the patients wishes and were consensually agreed upon. Question Answer Comments Discussion of Advance Directives occurred with: Patient Does the patient have a Living Will? No Does the patient have Health Care Power of Set O Type Operator? No Code Status History Code Status [...] and were consensually agreed upon. Care Teams Customer Service Driver Relationship Specialty Start Date End Date Ivonne French PA-C [address] [place] [address] PCP - General Physician Senior Geologist 07/24/21 documented as of this encounter"
--- OUTSIDE RECORDS SUMMARY | 2024-01-29 21:24 | External Medical Summary ---
Author Name Unknown Address Unknown Organization K1F:LAB[facility]ATORY [facility] - [address] [place] [address] Laboratory Report Ordering Provider Test Date Status ANTONELLABRADLY 01/10/2024 10:33:28 Final Observation Date Value Abnormality Reference (Units ) Status ABO 01/10/2024 10:33:28 O Final RH 01/10/2024 10:33:28 Positive Final RED BLOOD CELL ANTIBODY SCREEN 01/10/2024 10:33:28 Negative Final SPECIMEN EXPIRATION DATE 01/10/2024 10:33:28 01/13/2024 23:59 Final Performing Location [facility] - [address] [place] [address]
--- OUTSIDE RECORDS SUMMARY | 2024-01-29 21:24 | External Medical Summary ---
Author Name Unknown Address Unknown Organization K1F:[facility] - [address] [place] [address] Laboratory Report Ordering Provider Test Date Status BRADLY BERMAN 01/10/2024 10:33:28 Final Observation Date Value Abnormality Reference (Units ) Status SYNC LEUKOCYTES IN BLOOD BY AUTOMATED COUNT 01/10/2024 10:33:28 0.86 Below lower panic limits 4.00-10.80 (K/uL) Final Neutrophils/100 leukocytes in Blood by Manual count 01/10/2024 10:33:28 4.0 Below low normal 40.0-75.0 (%) Final Lymphocytes/100 leukocytes in Blood by Manual count 01/10/2024 10:33:28 95.0 Above high normal 18.0-42.0 (%) Final Monocytes/100 leukocytes in Blood by Manual count 01/10/2024 10:33:28 1.0 1.0-11.0 (%) Final Neutrophils [#/volume] in Blood by Manual count 01/10/2024 10:33:28 0.03 Below low normal 1.80-7.70 (K/uL) Final Lymphocytes [#/volume] in Blood by Manual count 01/10/2024 10:33:28 0.82 Below low normal 1.00-4.80 (K/uL) Final Monocytes [#/volume] in Blood by Manual count 01/10/2024 10:33:28 0.01 0.00-1.10 (K/uL) Final Performing Location LABORATORY [facility] - [address] [facility] [address] [place] [address]
--- OUTSIDE RECORDS SUMMARY | 2024-01-29 21:24 | External Medical Summary ---
Author Name Unknown Address Unknown Organization K1F:[facility] [address] [facility] [place] [address] Laboratory Report Ordering Provider Test Date Status BRADLY BERMAN 01/10/2024 10:33:28 Final Observation Date Value Abnormality Reference (Units ) Status BUN 01/10/2024 10:33:28 20 6-20 (mg/dL) Final Creatinine 01/10/2024 10:33:28 1.0 0.5-1.0 (mg/dL) Final Glomerular filtration rate/1.73 sq M.predicted [Volume Rate/Area] in Serum, Plasma or Blood by Creatinine-based formula (CKD-EPI) 01/10/2024 10:33:28 64 >=60 (mL/min) Final eGFR is calculated based on the CKD-EPI 2020 equation SODIUM 01/10/2024 10:33:28 141 135-146 (m mol/L) Final Potassium 01/10/2024 10:33:28 3.8 3.5-5.1 (m mol/L) Final Cl 01/10/2024 10:33:28 101 98-107 (mm ol/L) Final CO2 01/10/2024 10:33:28 26 22-32 (mmo l/L) Final Anion gap 01/10/2024 10:33:28 14 7-15 (mmol /L) Final Glucose 01/10/2024 10:33:28 228 Above high normal 70 -120 (mg/dL) Final Albumin 01/10/2024 10:33:28 3.6 Below low normal 3.8 -5.0 (g/dL) Final AST (Aspartate aminotransferase) 01/10/2024 10:33:28 22 10-35 (U/L) Fin al Alk Phos 01/10/2024 10:33:28 124 35-130 (U/ L) Final Bilirubin, Total 01/10/2024 10:33:28 0.6 <=1 .2 (mg/dL) Final Calcium 01/10/2024 10:33:28 8.0 Below low normal 8.4 -10.2 (mg/dL) Final Protein 01/10/2024 10:33:28 6.7 6.0-8.3 (g /dL) Final ALT (Alanine aminotransferase) 01/10/2024 10:33:28 26 10-35 (U/L) Colin lee Performing Location LABORATORY [facility] - [facility] [place] [address]
--- OUTSIDE RECORDS SUMMARY | 2024-01-29 21:24 | External Medical Summary | Summary of Care ---
Author Name Unknown Organization [facility] Address [address] [place] [address] Phone [phone] Care Team Providers Care Health And Physical Education Teacher Name Role Phone Ivonne French PA-C Primary Care Provider [phone] Encounter Details Date Type Department Care Team (Late st Contact Info) Description 01/07/2024 Orders Only Hematology/Oncology, [facility] [address] [place], [place] [phone] Tasneem Bryant CRNP [address] [place], [place] [phone] Hypomagnesemia* Allergies Active Allergy Reactions Criticality Noted Date [...] E11.9 1 Kit 0 05/25/2023 Active Pen [place] 32G X 4 MM Use as directed. [...] Hour (toPROL XL)Indications:Craig nary artery disease involving sokaogon coronary artery of sokaogon heart without angina pectoris Take 2 Tablets [...] 200 Strip 12/28/2023 Active OneTouch Delica Plus [id number] Use as directed. Use when checking blood [...] the morning. 31 Tablet 5 01/05/2024 Active Hospital, Clinic, or Other Facility Administered Medication Ordered Dose Route Frequency Start Date End Date Status magnesium sulfate 1 g in d5w 100mL LOCKED DOSEIndications:Hypomagnese evelyn 1 g IVPB ONCE 01/07/2024 01/08/2024 Active documented as of this encounter (statuses [...] Team (Late st Contact Info) Description 01/10/2024 10:30 AM EST Laboratory Laboratory, [address] [place] [address] [facility], Lab [address] [place], [place] [address] [address] 01/10/2024 11:30 AM EST Telemedicine Hematology/Oncology , [address] [address] Ortega Verde MD [address] [place] [address] Cart, Telemed [facility] Hem Onc Clinic [address] [place] [address] 01/10/2024 12:00 PM EST Hem/Onc Treatment Hematology/Oncology Treatment, [address] [address] [facility], Chair9 Hem Onc [address] [place] [address] 01/10/2024 12:30 PM EST Office Visit Palliative Medicine, [address] 5th [place] [address] Nati Easley, PA-C [address] [place] [address] 01/12/2024 8:10 AM EST Laboratory Laboratory [facility] [place] [address] [place], [place] [address] [place], Lab Scenery [address] [place], [place] [address] 01/12/2024 8:45 AM EST Office Visit Hematology/Oncology [facility] [place] [address] [place] [address] Shon Rice MD [address] [place] [address] 01/14/2024 11:30 AM EST Laboratory Laboratory, [address] [place] [address] [facility], Lab [address] [place] [place] [address] 01/14/2024 12:30 PM EST Hem/Onc Treatment Hematology/Oncology Treatment, [facility] [address] [place] [place] [address] [facility], Chair10 Hem Onc [address] [place] [place] [address] 01/17/2024 10:00 AM EDT Hospital Encounter OR [facility], Operating Room, [facility] - 4th Floor [address] [place] [address] [facility], In And Out Surgery [address] [place] [address] 01/17/2024 10:00 AM EDT - 01/17/2024 11:00 AM EDT Surgery OR [facility], Operating Room, [facility] - 4th Floor [address] [place] [address] [facility], In And Out Surgery [address] [place] [address] PRE / POST CARE 01/26/2024 9:00 AM EDT Office Visit Pharmacy, [facility] [address] [place] [address] [place] [address] [address] [place] [address] 01/31/2024 9:00 AM EDT Imaging Radiology [facility] 1st [facility] [address] [place] [address] 02/10/2024 11:40 AM EDT [facility] [address] [facility] [address] Ivonne French PA-C [address] [facility] [place] [address] 03/14/2024 10:00 AM EDT Office Visit [facility], [place] [address] [address] [facility], [place] [address] Ivonne French PA-C [address] [facility], [place] [address] 04/18/2024 10:00 AM EDT Office Visit [place] [address] [place] [facility] [address] Ivonne French PA-C [address] [facility], [place] [address] 05/10/2024 8:15 AM EDT [facility] [address] [place] [address] Migel Ramires MD [address] [place] [address] 05/16/2024 10:00 AM EDT Office Visit [place] [address] [place] [facility] [address] [phone] Ivonne French PA-C [address] [facility], [place] [phone] Scheduled Procedures Name Priority Associated Diagnoses Date/Ti [...] history exists Depression Screening 12/30/2024 12/30/2023 GFR 01/06/2025 01/07/2024, 12/10, 12/31/2023, Additional history exists PAP SMEAR-EVERY 3 YRS,AGES [...] this encounter Medical Devices Implanted Type Area Video Game Engineer Device Identifier Shelf Expiration Date Model / Serial / Lot Lens Intraoc 21.0 - [id number] - [id number] Implanted:Qty : 1 on 07/06/2017 by Luis Eduardo Cole MD at OR [facility] Left: Eye [employer] 01/05/2022 [id number] / [id number] / Lens Intraoc 21.0 - [id number] - [id number] Implanted:Qty : 1 on 07/20/2017 by Luis Eduardo Cole MD at OR 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 No Code Status History Code Status Date [...] and were consensually agreed upon. Care Teams Health And Physical Education Teacher Relationship Specialty Start Date End Date Ivonne French PA-C [facility] [address] [place] [address] PCP - General Physician Pricing/Signage Team Member 07/24/21 documented as of this encounter
--- OUTSIDE RECORDS SUMMARY | 2024-01-29 21:24 | External Medical Summary ---
Author Name Unknown Address Unknown Organization K1F:LABORATORY [facility] - [address] [place] [address] Laboratory Report Ordering Provider Test Date Status BRADLY BERMAN 01/10/2024 10:33:28 Final Observation Date Value Abnormality Reference (Units ) Status WBC, Total 01/10/2024 10:33:28 0.86 Below lower panic limits 4.00-10.80 (K/uL) Final RBC 01/10/2024 10:33:28 2.38 3.85-5.15 (M/uL) Final Hemoglobin 01/10/2024 10:33:28 7.1 Below low normal 12.0-15.3 (g/dL) Final HCT 01/10/2024 10:33:28 20.8 Below low normal 36.0-45.2 (%) Final MCV 01/10/2024 10:33:28 87.4 81.5-97.5 (fL) Final MCH 01/10/2024 10:33:28 29.8 27.0-34.0 (pg) Final MCHC 01/10/2024 10:33:28 34.1 32.0-36.0 (g/dL) Final RDW 01/10/2024 10:33:28 13.2 11.5-15.5 (%) Final Platelets 01/10/2024 10:33:28 46 Below low normal 140-400 (K/uL) Final MPV 01/10/2024 10:33:28 10.7 6.6-11.1 (fL) Final Nucleated erythrocytes/100 leukocytes [Ratio] in Blood by Automated count 01/10/2024 10:33:28 0 <=0 (/100 WBCs) Final Performing Location [facility] [address] [facility] [place] [address]
--- OUTSIDE RECORDS SUMMARY | 2024-01-29 21:24 | External Medical Summary | Summary of Care ---
Author Name Unknown Organization [facility] Address [address] [place] [address] Phone [phone] Care Team Providers Care Fuel House Attendant Name Role Phone Ivonne French PA-C Primary Care Provider [phone] [phone] Encounter Details Date Type Department Care Team (Late st Contact Info) Description 01/07/2024 Orders Only Hematology/Oncology, [facility] [address] [place], [place] [phone] Tasneem Bryant CRNP [address] [place], [place] [phone] Hypocalcemia* Allergies Active Allergy Reactions Criticality Noted Date [...] E11.9 1 Kit 0 05/25/2023 Active Pen [place] 32G X 4 MM Use as directed. [...] Hour (toPROL XL)Indications:Craig nary artery disease involving mi'kmaq coronary artery of mi'kmaq heart without angina pectoris Take 2 Tablets [...] 200 Strip 12/28/2023 Active OneTouch Delica Plus [id number] Use as directed. Use when checking blood [...] morning. 90 Tablet 1 01/10/2024 04/09/2024 Active Hospital, Clinic, or Other Facility Administered Medication Ordered Dose Route Frequency Start Date End Date Status magnesium sulfate 1 g in d5w 100mL LOCKED DOSEIndications:Hypom agnesemia 1 g IVPB ONCE 01/07/2024 01/07/2024 Discontinued documented as of this encounter (statuses as [...] 12:30 PM EST Office Visit Palliative Medicine, [address]th [place] [address] Nati Easley PA-C [address] [place] [address] Palliative Medicine Outpatient Progress Note 01/12/2024 8:10 AM EST Laboratory [facility] [address] [place] [phone] Rena Lara, [facility] Scenery [address] [place] [address] 01/12/2024 8:45 AM EST Office Visit Hematology/Oncolog y Scenery [place] [address] [place] [address] Shon Rice MD [address] [place] [address] 01/13/2024 9:00 AM EST Hem/Onc Treatment Hematology/Oncolog y Treatment, [address] [place] [address] [facility], Bed1 Hem Onc [address] [place] [address] 01/14/2024 11:30 AM EST Laboratory Laboratory, [address] [address] [facility], Lab [address] [place] [address], [place] [address] 01/14/2024 12:30 PM EST Hem/Onc Treatment Hematology/Oncolog y Treatment, [address] [address] [facility], Chair10 Hem Onc [address] [place], [place] [address], [place] [address] 01/26/2024 9:00 AM EDT Office Visit Pharmacy, [facility] [address] [facility] [place] [address] [facility] [address] [facility] [place] [address] 01/31/2024 9:00 AM EDT Imaging Radiology [address] [facility] [place] [address] 02/10/2024 11:40 AM EDT Office Visit Family Practice, [place] [address] [address] [facility], [place] [address] Ivonne French PA-C [address] [facility], [place] [address] 03/14/2024 10:00 AM EDT Office Visit Family Practice, [place] [address] [facility], [place] [address] Ivonne French PA-C [address] [facility], [place] [address] 04/18/2024 10:00 AM EDT Office Visit Family [facility], [place] [address] [facility] [address] Ivonne French PA-C [address] [facility], [place] [address] 05/10/2024 8:15 AM EDT Office Visit Ophthalmology, [place] [address] [place] [address] Migel Ramires MD [address] [place] [address] 05/16/2024 10:00 AM EDT Office Visit [facility] [address] [place] [facility] [place] [address] Ivonne French PA-C [address] [place] [address] Scheduled Procedures Name Priority Associated Diagnoses Date/Ti [...] this encounter Medical Devices Implanted Type Area Air Pollution Compliance Inspector Device Identifier Shelf Expiration Date Model / Serial / Lot Lens Intraoc 21.0 - [id number] - [id number] Implanted:Qty : 1 on 07/06/2017 by Luis Eduardo Cole MD at OR [facility] Left: Eye BAUSCH & LOMB 01/05/2022 [id number] / [id number] / Lens Intraoc 21.0 - [id number] - [id number] Implanted:Qty : 1 on 07/20/2017 by Luis Eduardo Cole MD at OR [facility] Right: Eye BAUSCH & LOMB 01/05/2022 [id number] / [id number] / Syringe Prolaryn Del 1.0cc - [id number] Implanted:Qty : 1 on 11/20/2019 by Amber Jain MD [place] [facility] Right: Mouth [employer] 10/21/2021 [id number] / / [id number] Implant Silastic 7 Silicone Sw - [id number] Implanted:Qty : 1 on 05/28/2020 by Farhat Paet MD [place] [facility] [place]: Throat [employer] [id number] / / documented as of this encounter Visit Diagnoses Diagnosis Hypocalcemia- Primary documented in this encounter Advance Directives [...] the patient have Health Care Power of Restaurant General Manager? No Code Status History Code Status [...] and were consensually agreed upon. Care Teams Fuel House Attendant Relationship Specialty Start Date End Date Ivonne French PA-C [address] [place] [address] PCP - General Physician Marine Reporter 07/24/21 documented as of this encounter
--- OUTSIDE RECORDS SUMMARY | 2024-01-29 21:24 | External Medical Summary ---
Author Name Unknown Address Unknown Organization K01:[facility] [place] [address] [place] [address] Laboratory Report Ordering Provider Test Date Status BRADLY BERMAN 01/10/2024 10:33:28 Final Observation Date Value Abnormality Reference (Units ) Status Parathyrin.intact [Mass/volume] in Serum or Plasma 01/10/2024 10:33:28 50 15-65 (pg/mL) Final Performing Location [facility] [place] [address] [place] [address]
--- OUTSIDE RECORDS SUMMARY | 2024-01-29 21:24 | External Medical Summary | Summary of Care ---
Author Name Unknown Organization [facility] Address [address] [place] [address] Phone [phone] Care Team Providers Care Development Lead Name Role Phone Ivonne French PA-C Primary Care Provider [phone] Reason for Visit * Reason Comments Outpatient Testing Encounter Details Date Type Department Care Team (Late st Contact Info) Description 01/07/2024 11:30 AM EST Laboratory Laboratory, [facility] [address] [place] [phone] [facility], Lab [address] [place] [address] 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sion [...] E11.9 1 Kit 0 05/25/2023 Active Pen [place] 32G X 4 MM Use as directed. 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 Use when checking blood [...] 12:30 PM EST Hem/Onc Treatment Hematology/Oncology Treatment, [address] [place] [address] [facility], Chair4 Hem Onc [address] [place], [place] [address] [address] Arrived 01/10/2024 10:30 AM EST Laboratory Laboratory, [address] [place] [address] [facility], Lab [address] [place] [address] 01/10/2024 11:30 AM EST Telemedicine Hematology/Oncology , [address] [address] Ortega Verde MD [address] [place] [address] Cart, Telemed [facility] Hem Onc Clinic [address] [place] [address] 01/10/2024 12:00 PM EST Hem/Onc Treatment Hematology/Oncology Treatment, [address] [address] [facility], Chair9 Hem Onc [address] [place] [address] 01/10/2024 12:30 PM EST Office Visit Palliative Medicine, [address] 5th [place] [address] Nati Easley, PA-C [address] [place] [address] 01/12/2024 8:10 AM EST Laboratory Laboratory Scenery [place] [address] [place] [address] [place], Lab Scenery [address] [place] [address] 01/12/2024 8:45 AM EST Office Visit Hematology/Oncology Scenery [place] [address] [place] [phone] Shon Rice MD [address] [place], [place] [address] 01/14/2024 11:30 AM EST Laboratory Laboratory, [facility] [address] [facility] [place] [address] [facility], Lab [address] [facility] [address] 01/14/2024 12:30 PM EST Hem/Onc Treatment Hematology/Oncology Treatment, [address] [address] [facility], Chair10 Hem Onc [address] [place], [place] [address] [address] 01/17/2024 10:00 AM EDT Hospital Encounter OR [facility], Operating Room, [facility] - 4th Floor [address] [place] [address] [facility], In And Out Surgery [address] [place] [address] 01/17/2024 10:00 AM EDT - 01/17/2024 11:00 AM EDT Surgery OR [facility], Operating Room, [facility] - [address] [place] [address] [place] [address] [facility], In And Out Surgery [address] [place] [address] PRE / POST CARE 01/26/2024 9:00 AM EDT Office Visit Pharmacy, [facility] [address] [facility] [place] [address] [facility] [address] [place] [address] 01/31/2024 9:00 AM EDT Imaging Radiology [address] [place] [address] 02/10/2024 11:40 AM EDT Office [address] [phone] Ivonne French PA-C [address] [place] [facility] [address] 03/14/2024 10:00 AM EDT Office Visit [facility] [place] [address] [place] [facility] [place] [address] Ivonne French PA-C [address] [place] [facility] [address] 04/18/2024 10:00 AM EDT Office Visit [facility] [place] [address] [facility], [place] [address] Ivonne French PA-C [address] [facility], [place] [phone] 05/10/2024 8:15 AM EDT Office Visit [facility] [place] [address] [place] [address] Migel Ramires MD [address] [place] [address] 05/16/2024 10:00 AM EDT Office Visit [facility] [place] [address] [facility], [place] [phone] Ivonne French PA-C [address] [facility], [place] [phone] Pending Results Name Type Priority Associated Diagnoses [...] this encounter Medical Devices Implanted Type Area Ep Specialist Device Identifier Shelf Expiration Date Model / Serial / Lot Lens Intraoc 21.0 - [id number] - [id number] Implanted:Qty : 1 on 07/06/2017 by Luis Eduardo Cole MD at OR [facility] Left: Eye BAUSCH & LOMB 01/05/2022 [id number] / [id number] / Lens Intraoc 21.0 - [id number] - [id number] Implanted:Qty : 1 on 07/20/2017 by Luis Eduardo Cole MD at OR [facility] Right: Eye BAUSCH & LOMB 01/05/2022 [id number] / [id number] / Syringe Prolaryn Del 1.0cc - [id number] Implanted:Qty : 1 on 11/20/2019 by Amber Jain MD at [place] [facility] Right: Mouth [employer] 10/21/2021 [id number] / / [id number] Implant Silastic 7 Silicone Sw - [id number] Implanted:Qty : 1 on 05/28/2020 by Farhat Pate MD at [place] [facility] Right: Throat [employer] [id number] / / documented as of this [...] the patient have Health Care Power of Spool Salvager? No Code Status History Code Status Date [...] and were consensually agreed upon. Care Teams Development Lead Relationship Specialty Start Date End Date Ivonne French PA-C [address] [place] [address] PCP - General Physician Pharmacy Tech 07/24/21 documented as of this encounter
--- OUTSIDE RECORDS SUMMARY | 2024-01-29 21:24 | External Medical Summary | Summary of Care ---
Author Name Unknown Organization [facility] Address [address] [place] [address] Phone [phone] Care Team Providers Care Jewelry Internship Name Role Phone Ivonne French PA-C Primary Care Provider [phone] Reason for Visit * Reason Onset Date Comments Scheduling 12/31/2023 Encounter Details Date Type Department Care Team (Late st Contact Info) Description 12/31/2023 Telephone Interventional Radiology, [facility] [address] [place] [address] Richard Moreira PA-C [address] [place] [address] Scheduling Allergies Active Allergy Reactions [...] E11.9 1 Kit 0 05/25/2023 Active Pen [place] 32G X 4 MM Use as directed. 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 Use when checking blood [...] 10 units 21 mL 3 12/28/2023 Active documented as of this encounter (statuses [...] failure 12/13/2023 01/07/2024 Toe osteomyelitis, left 05/29/2021 0202/2022 Ulcer of left great toe due to [...] encounter Miscellaneous Notes * Telephone Encounter - Memo Young RN - 01/10/2024 9:46 AM EST Spoke with patient about upcoming procedure scheduled for 01/16 at [facility], pt states this appointment was cancelled. * Telephone Encounter - Maria R Agosto OSA - 12/31/2023 10:44 AM EST Spoke to patient to schedule the Bone Marrow Biopsy for 01/16 at [facility]. Patient identified by: name/birthdate Person taught: Patient METHOD: Lecture-telephone interview Patient Preferred Learning Methods: Lecture-Telephone interview PATIENT INSTRUCTIONS GIVEN: - General Preoperative Instructions Reviewed - NPO Instructions Reviewed, pt to stop eating 8 hours prior to procedure and stop drinking 2 hoursprior to procedure. -Software Development Project Manager required Location and check-in instructions Verbalizes understanding of education: Yes Procedure date at time of Imaging Encounter: 01/16 What procedure is patient having? Bone Marrow Biopsy Laterality confirmed as no Does the patient have a yellow bar? Did not The Patient was given the opportunity to ask questions concerning the procedure. Signature: GILBERT Garcia 12/31/2023 documented in this encounter Plan of Treatment Upcoming Encounters Date Type Department Care Team (Late st Contact Info) Description 01/10/2024 10:30 AM EST Laboratory Laboratory, [address] [address] [facility], Lab [address] [place] [address] 01/10/2024 11:30 AM EST Telemedicine Hematology/Oncology, [address] [address] Ortega Verde MD [address] [place] [address] Cart, Telemed [facility] Hem Onc Clinic [address] [place] [address] 01/10/2024 12:00 PM EST Hem/Onc Treatment Hematology/Oncology Treatment, [address] [address] [facility], Chair9 Hem Onc [address] [place] [address] 01/10/2024 12:30 PM EST Office Visit Palliative Medicine, [address] 5th [place] [address] Nati Easley PA-C [address] [place] [address] 01/12/2024 8:10 AM EST Laboratory Laboratory Camryn Carriz[place] 200 [facility] [place] [address] [place] Lab Scenery [address] [place], [place] [address] 01/12/2024 8:45 AM EST Office Visit Hematology/Oncology [facility] Sofie [place] [address] [place] [address] Shon Rice MD [address] [place] [address] 01/14/2024 11:30 AM EST Laboratory Laboratory, [address] [phone] [facility], Lab [address] [place] [address] 01/14/2024 12:30 PM EST Hem/Onc Treatment Hematology/Oncology Treatment, [address] [address] [facility], Chair10 Hem Onc [address] [place] [address] [place] [address] 01/26/2024 9:00 AM EDT Office Visit Pharmacy, [facility] [address] [facility] [place] [address] [place] [address] 01/31/2024 9:00 AM EDT Imaging Radiology [facility] [address] [facility] [place] [address] 02/10/2024 11:40 AM EDT Office Visit [facility] [address] [place] [address] Ivonne French PA-C [address] [place] [address] 03/14/2024 10:00 AM EDT Office Visit [facility] [place] [address] [facility], [place] [address] Ivonne French PA-C [address] [facility], [place] [address] 04/18/2024 10:00 AM EDT Office Visit [facility] [address] [place] [facility] [place] [address] Ivonne French PA-C [address] [facility], [place] [address] 05/10/2024 8:15 AM EDT [facility] [place] [address] Migel Ramires MD 21 [place] [address] 05/16/2024 10:00 AM EDT Office Visit [place] [address] [facility] [place] [address] [phone] Ivonne French PA-C [address] [facility], [place] [address] Scheduled Procedures Name Priority Associated Diagnoses Date/Ti [...] this encounter Medical Devices Implanted Type Area Psychiatric Technician Assistant Device Identifier Shelf Expiration Date Model / Serial / Lot Lens Intraoc 21.0 - [id number] - [id number] Implanted:Qty : 1 on 07/06/2017 by Luis Eduardo Cole MD at OR [facility] Left: Eye BAUSCH & LOMB 01/05/2022 [id number] / [id number] / Lens Intraoc 21.0 - [id number] - [id number] Implanted:Qty : 1 on 07/20/2017 by Luis Eduardo Cole MD at OR [facility] Right: Eye BAUSCH & LOMB 01/05/2022 [id number] / [id number] / Syringe Prolaryn Del 1.0cc - [id number] Implanted:Qty : 1 on 11/20/2019 by Amber Jain MD at [place] [facility] Right: Mouth [employer] 10/21/2021 [id number] / / [id number] Implant Silastic 7 Silicone Sw - [id number] Implanted:Qty : 1 on 05/28/2020 by Farhat Pate MD at OR [facility] Right: Throat [employer] [id number] / / documented as of [...] the patient have Health Care Power of Consulting Property Manager? No Code Status History Code Status [...] and were consensually agreed upon. Care Teams Jewelry Internship Relationship Specialty Start Date End Date Ivonne French PA-C [address] [facility] [place] [address] PCP - General Physician Assisted Living Administrator 07/24/21 documented as of this encounter
--- OUTSIDE RECORDS SUMMARY | 2024-01-29 21:24 | External Medical Summary | Summary of Care ---
Author Name Unknown Organization [facility] [address] [address] Address [address] [place] [address] Phone [phone] Care Team Providers Care Jewel Hole Finish Opener Name Role Phone Ivonne French PA-C Primary Care Provider [phone] Reason for Visit * Reason Comments Follow Up Encounter Details Date Type Department Care Team (Late st Contact Info) Description 01/10/2024 11:30 AM EST Telemedicine Hematology/Oncology, [facility] [address] [place] [address] Ortega Verde MD [address] [place] [address] Shayla, Telemed [facility] Hem Onc Clinic [address] [place] [address] 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sion (HCC)*; Hypocalcemia; Constipation, unspecified constipation type; Encounter to discuss test results; Encounter to discuss treatment options; Volume overload state of heart; Antineoplastic chemotherapy induced anemia Allergies Active Allergy Reactions Criticality Noted Date [...] E11.9 1 Kit 0 05/25/2023 Active Pen Billings 32G X 4 MM Use as directed. [...] under the skin at bedtime. 45 mL 12/28/2023 Active Metoprolol Succinate ER 25 MG Oral Tablet Extended Release 24 Hour (toPROL XL)Indications:Craig nary artery disease involving [place] coronary artery of [place] heart without angina pectoris Take 2 Tablets by mouth daily in the morning. 135 Tablet 12/28/2023 Active Acyclovir 400 MG Oral Tablet (Zovirax) Take 1 Tablet by mouth in the morning and 1 Tablet before bedtime. 60 Tablet 12/28/2023 Active levoFLOXacin 500 MG Oral Tablet (Levaquin) Take 1 Tablet by mouth daily in the morning. 30 Tablet 12/29/2023 Active OneTouch Verio In Vitro Strip (Glucose Blood) Use when checking blood glucose levels 4 times per day 200 Strip 12/28/2023 Active OneTouch Delica Plus [id number] Use as directed. Use when checking blood [...] Time Taken Comments Blood Pressure 109/46 01/10/2024 11:08 AM EST Pulse 76 01/10/2024 11:08 AM EST Temperature 37.4 C (99.3 F) 01/10/2024 1 1:08 AM EST Respiratory Rate - - Oxygen Saturation 96% 01/10/2024 11: 08 AM EST Inhaled Oxygen Concentration - - Weight 87.9 kg (193 lb 12.8 oz) 024 11:08 AM EST Height - - Body Mass Index 29.47 01/07/2024 9:59 AM EST documented in this [...] Progress Notes * Ortega Verde MD - 01/10/2024 10:43 AM EST Images from the original note were not included. TeleVIDEO Visit Patient location: CLINIC. I was not in a hospital or clinic location. After connecting through televideo, patient was verified with two unique identifiers. 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 My office door was closed. No one else was in the room with me. Patient acknowledged consent and understanding of privacy and security of the Telemedicine visit, and gave permission to have atelemedicine presenter stay in the room in order to assist with the history and to conduct the examas needed. I informed the patient that I have reviewed their record in [facility] and presented the opportunity for them to ask any questions regarding the visit today. The patient agreed to participate. 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 Molecular: [...] stenosis. No suspicious enhancing abnormalities. Treatment rendered: IP/OP Decitabine and Venetoclax with Inpatient ramp-up (AML) (11/25/23- 12/08/23) Decitabine 20 mg/m2 x 5 d (11/25/23- 11/29/23) Venetoclax 100-->200--->400---> 100 x 14 d(11/25/23-12/08/23) Current treatment: TBD Supportive medications: Acyclovir, Posaconazole, Levaquin ppx Allopurinol Chief Complaint Patient presents with Follow Up Treatment Summary 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sion (HCC) 11/24/2023 Initial Diagnosis 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sion (HCC) 11/25/2023 - Chemotherapy IP/OP Decitabine and Venetoclax with Inpatient ramp-up (AML) [id number] 01/03/2024 - Supportive Therapy SCP - PACKED RED BLOOD CELLS AND PLATELETS FOR ADULTS REQUIRING FREQUENT TRANSFUSIONS (3 TIMES A WEEK FOR 3 MONTHS) [id number] Plan Provider: Ortega Verde MD Treatment goal: [...] office today, unaccompanied, for follow-up of her AML. Overall, she is doing well. She has been off treatment. She was seen by Cardiology last week, and they recommended increase Lasix to 40 mg p.o. daily. Patient has been complaining of constipation. She is scheduled for bone marrow biopsy on January 12, [address] Rice. History of present illness (at time of my initial evaluation on 12/31/2023 ): Juany Resendez is a 58 year old female who presented to my office today, unaccompanied, to establish care with publicity manager for her newly diagnosed AML. Patient is a , she lives alone. She lives about 1 hour away from [facility].Currently on disability. Her brother lives 10 minutes away from her. She had history of partial bigtoe amputation, and she started using cane recently. Patient was initially evaluated by Dr. Rice, then by Dr. Senior in [place], then admitted to the hospital, and coming now to [facility] follow-up with me as an outpatient. He had prolonged hospital stay, with the following hospital course 11/24/2023 - 12/28/2023 (34 days) : "ADMISSION HISTORY & PHYSICAL EXAM (focused): Ms. Resendez is a 58 y/o female who lives in [place] by herself. Her PMH includes DM2 on insulin with partial great toe amputation, HTN, dyslipidemia, multinodular goiter s/p total thyroidectomy with resulting postsurgical hypothyroidism, enchondroma femur, paralytic ptosis left eyelid, HTN/CAD s/p SC years ago, s/p ischemic stroke x 2 [...] for last 1 year. She states her frequency checker is aware of these sx and they [...] as much as possible to help prevent SC. her blood counts dropped as expected and [...] discharged her home with close follow-up at [facility]." Patient is still feel weak [...] DIAGNOSTIC (RECTUM) 12/16/2016 adenomatous polyps, repeat 5 yrs/[facility] COLONOSCOPY, DIAGNOSTIC (RECTUM) 06/03/2022 diverticulosis, fair prep, repeat 5 yrs / [facility] EGD, FLEXIBLE, DIAGNOSTIC 12/16/2016 normal bx/[facility] EGD, FLEXIBLE, W/BIOPSY 07/30/2010 esophagitis, await BX LARYNGOPLASTY MEDIALIZATION UNILATERAL Right 05/28/2020 LARYNGOPLASTY, MEDIALIZATION UNILATERAL performed by Farhat Pate MD at [place] [facility] LARYNGOSCOPY, VOCAL CORD INJECTION Right 11/20/2019 LARYNGOSCOPY DIRECT INJECTION VOCAL CORD WITH MICROSCOPE performed by Amber Jain MD at OR [facility] MISCELLANEOUS ORDER ([facility] ONLY) Bilateral 11/24/2017 Reinheimer-bleph/levators-ou OTHER (3 times) 8 inch benign tumor removed from L femur; regrew x 3 OTHER Removal of a benign LN from L axilla REMOVAL OF THYROID GLAND 10/23/2009 total thyroidectomy 10/23/09, [facility], Dr. Vazquez REMOVE CATARACT, INSERT LENS PROSTH Right 07/20/2017 right EXTRACAPSULAR CATARACT REMOVAL WITH INTRAOCULAR LENS performed by Luis Eduardo Cole MD at OR [facility] REMOVE CATARACT, INSERT LENS PROSTH Left 07/06/2017 left EXTRACAPSULAR CATARACT REMOVAL WITH INTRAOCULAR LENS performed by Luis Eduardo Cole MD at OR [facility] REMOVE GALLBLADDER 2004 appox date Social History [...] Current Outpatient Medications Medication Sig Dispense Refill Sennosides-Docusate Sodium 8.6-50 MG Oral Tablet (Senokot S) Take 2 Tablets by mouth in the morningand 2 Tablets before bedtime. 60 Tablet 1 Aspirin 81 MG Tablet Take 1 Tablet [...] a day E11.9 1 Kit 0 Pen Billings 32G X 4 MM Use as directed. [...] day 200 Strip 5 OneTouch Delica Plus [id number] Use as directed. Use when checking blood [...] 10 units 21 mL 3 Magic Swizzle (Wlnftlork-Rptvcgzk-Dlbzkr) oral solution Swish and spit 15 mL [...] by mouth every morning. 90 Tablet 1 No current facility-administered medications for this visit. Review of patient's allergies indicates: Allergen Reactions Tape [Adhesive Tape] Glue off the old style medical tape. Physical exam: Vitals 01/03/2024 01/04/2024 01/05/2024 01/06/2024 01/07/2024 01/10/2024 Vitals BP 135/69 98/46 125/62 109/46 Pulse 61 77 63 76 Resp 18 18 18 Temp 36.1 C (97 F) 36 C (96.8 F) 36.1 C (97 F) 37.4 C (99.3 F) SpO2 100 % 100 % 96 % 96 % Weight 192 lb 7.4 oz 196 lb 1.6 oz 193 lb 9.6 oz 193 lb 12.6 oz Height 1.727 m (5' 8") BMI 29.66 Notes Notes Patient Instructions Signed Felicitas Ly RN Telephone Encounter Signed Christian Cardenas PA-C Telephone Encounter Signed Reyna Lowery OSA Telephone Encounter Addendum Rosette Cilnton RN Patient Instructions Addendum Francesca Beckham RN Progress Notes Sign when Signing Visit Nati Easley PA-C Details More values are hidden. Newest values shown. Go to activity for more data. Wt Readings from Last 6 Encounters: 01/10/24 87.9 kg (193 lb 12.8 oz) 01/07/24 87.8 kg (193 lb 9.6 oz) 01/07/24 88.5 kg (195 lb) 01/05/24 89 kg (196 lb 1.6 oz) 01/05/24 88 kg (194 lb) 01/03/24 87.3 kg (192 lb 7.4 oz) Patient is comfortable and privacy is respected General: alert and no distress Head: Normocephalic, No masses, lesions, tenderness or abnormalities Rest of exam can not be performed because of video visit. Labs: Results for orders placed or performed in visit on 01/10/24 COMPREHENSIVE METABOLIC PANEL Result Value Ref Range BUN 20 6 - 20 mg/dL Creatinine 1.0 0.5 - 1.0 mg/dL Estimated Glomerular Filtration Rate 64 >=60 mL/min Sodium 141 135 - 146 mmol/L Potassium 3.8 3.5 - 5.1 mmol/L Chloride 101 98 - 107 mmol/L CO2 26 22 - 32 mmol/L Anion Gap 14 7 - 15 mmol/L Glucose 228 (H) 70 - 120 mg/dL Albumin 3.6 (L) 3.8 - 5.0 g/dL AST 22 10 - 35 U/L Alkaline Phosphatase 124 35 - 130 U/L Bilirubin, Total 0.6 <=1.2 mg/dL Calcium 8.0 (L) 8.4 - 10.2 mg/dL Protein 6.7 6.0 - 8.3 g/dL ALT 26 10 - 35 U/L TYPE AND SCREEN Result Value Ref Range ABO O Rh Positive Red Blood Cell Antibody Screen Negative Specimen Expiration Date 01/13/2024 23:59 CBC Result Value Ref Range WBC 0.86 (LL) 4.00 - 10.80 K/uL RBC 2.38 3.85 - 5.15 M/uL HGB 7.1 (L) 12.0 - 15.3 g/dL HCT 20.8 (L) 36.0 - 45.2 % MCV 87.4 81.5 - 97.5 fL MCH 29.8 27.0 - 34.0 pg MCHC 34.1 32.0 - 36.0 g/dL RDW 13.2 11.5 - 15.5 % PLT 46 (L) 140 - 400 K/uL MPV 10.7 6.6 - 11.1 fL nRBCs 0 <=0 /100 WBCs DIFFERENTIAL, TECHNOLOGIST REVIEW Result Value Ref Range WBC 0.86 (LL) 4.00 - 10.80 K/uL Neutrophils % 4.0 (L) 40.0 - 75.0 % Lymphocytes % 95.0 (H) 18.0 - 42.0 % Monocytes % 1.0 1.0 - 11.0 % Absolute Neutrophils 0.03 (L) 1.80 - 7.70 K/uL Absolute Lymphocytes 0.82 (L) 1.00 - 4.80 K/uL Absolute Monocytes [...] This exam was submitted to the radiology labor relations officer worklist and the ordering provider will [...] loss of RUNX1 or chromosome 21/21q, del 8p68-p51, monosomy 7, consistent with complex karyotype. Molecular: [...] with bilateral lower extremity edema Pancytopenia Plan: Hemoglobin today 7.1. Will continue holding chemotherapy, transfused 1 unit of packed RBCs today. Scheduled for repeat bone marrow biopsy on January 12, [address] Rice, will review her repeat bone marrow biopsy on him tumor board next week. Will continue monitor counts every other day, and transfuse for hemoglobin less than 8 (cardiac, and symptomatic patient). Continue aspirin, with close monitoring of any bleeding. Will add Senokot-S for constipation Will be seen by palliative team today. I discussed with palliative team today. Different treatment options includin- Julio + Decitabine (May be very challenging for her d/t cardiac condition and expected severe pancytopenia) 2- Single agent HMA 3- BSC 4- Palliative/Hospice Continue all supportive medications as recommended Because of progressive lower extremity edema, shortness of breath, and her need for IV Lasix duringhospitalization, cardiology increase her Lasix to 40 mg p.o. daily, which I agree on. I also recommended adding extra Lasix 20 mg with every unit of packed RBCs transfusion. Corrected calcium is 8.3. She reports that she has been having these twitches is in her hands even prior to her hospitalization. Will continue to monitor. I added PTH today. Will see Cardiology again in 2 weeks. Magic swizzle for mucositis is helping, continue the same for now. In patients with AML with TP53 mutation, a 10-day course of decitabine may be considered (Shine MOHAN,et al. N Engl J Med 2016;375:4342-3791). Response may not be evident before 3-4 cycles of treatmentwith HMAs (ie, azacitidine, decitabine). Continue HMA treatment until progression if patient is tolerating therapy. Similar delays in response are likely with novel agents in a clinical trial, but endpoints will be defined by the protocol. Oral Aza maintenance therapy was associated with significantly longer overall and relapse-free survival than placebo among older patients with AML who were in remission after chemotherapy. Side effects were mainly gastrointestinal symptoms and neutropenia. Fcrqwsj-lu-zelr measures were maintained throughout treatment. (Supported by [employer]; QUIRAAR AML-001 ClinicalTrials.gov number, [id number].) Plan PTH Sennosides-Docusate Sodium 8.6-50 MG Oral Tablet (Senokot S) Check-out note: PRBCs transfusion today CBC/DIff, CMP, Type and screen QOD with Hb GOAL of 8. LDH and uric acid weekly RTC with Makary on Tuesday 01/16. This chart was completed in part utilizing [employer] Speech Voice Recognition Software. Grammatical errors, random word insertions, pronoun errors, and incomplete sentences are an occasional consequence of this system due to software limitations, ambient noise, and hardware issues. Any formal questions or concerns about the content, text, or information contained within the body of this dictation should be directly addressed to the provider for clarification. I spent a total time of 60 minutes on the date of service in preparation, delivery, and documentation of the care provided, excluding any time spent in the performance of separately billed services. documented in this encounter Nursing Notes * Rogelio Orozco MED ASSIST - 01/10/2024 11:12 AM EST Patient identified by name and date of . Do you have any concerns about pain management for today's visit? No Living Will or Advance Directive for Health Care as noted on problem list. My [facility] is a way you can talk to your provider online through e-mail. Would you like to sign up? I can activate it for you? ALREADY ACTIVE BP 109/46 (BP Site: Right Arm, BP Position: Sitting, BP Cuff Size: Regular) | Pulse 76 | Temp 37.4 C (99.3 F) (Tympanic) | Wt 87.9 kg (193 lb 12.8 oz) | LMP 09/08/2016 | SpO2 96% | BMI 29.47 kg/m | BSA 2.05 m Patient was instructed to not get [...] Description 01/12/2024 8:10 AM EST Laboratory Laboratory [facility] Walter Carrizales [address] [place] [id number] Sofie Lab [facility] [address] [place] [address] 01/12/2024 8:45 AM EST Office Visit Hematology/Oncology [facility] Marroquin [address] [place] [id number] Shon Rice MD [address] [place] [address] 01/13/2024 9:00 AM EST Hem/Onc Treatment Hematology/Oncology Treatment, [address] [place] [address] [facility], Bed1 Hem Onc [address] [place] [address] 01/14/2024 11:30 AM EST Laboratory Laboratory, [address] [place] [address] [facility], Lab [address] [place] [address] 01/14/2024 12:30 PM EST Hem/Onc Treatment Hematology/Oncology Treatment, [address] [address] [facility], Chair10 Hem Onc [address] [place] [address], [place] [address] 01/17/2024 10:30 AM EDT Laboratory Laboratory, [address] [place] [address] [facility], Lab [address] [place] [address] 01/17/2024 11:30 AM EDT Office Visit Hematology/Oncology, [address] [place] [address] Ortega Verde MD [address] [place] [address] 01/17/2024 12:00 PM EDT Hem/Onc Treatment Hematology/Oncology Treatment, [address] [address] [facility], Chair10 Hem Onc [address] [place], [place] [address], [place] [address] 01/26/2024 9:00 AM EDT Office Visit Pharmacy, [facility] [place] [address] [facility] [place] [address] [facility] [address] [facility] [place] [address] 01/31/2024 9:00 AM EDT Imaging Radiology [facility] [facility] [address] [facility] [place] [address] 02/10/2024 11:40 AM EDT Office Visit Family Practice, [place] [address] [address] [facility], [place] [address] Ivonne French PA-C [address] [facility], [place] [address] 03/14/2024 10:00 AM EDT Office Visit Family Practice, [place] [address] [facility], [place] [address] Ivonne French PA-C [address] [place] [place] [address] 04/18/2024 10:00 AM EDT Office Visit Family [facility], [place] [address] [facility] [address] Ivonne French PA-C [address] [facility], [place] [address] 05/10/2024 8:15 AM EDT Office Visit Ophthalmology, [address] [place] [address] [address] Migel Ramires MD [address] [place] [address] [address] 05/16/2024 10:00 AM EDT Office Visit [facility], [place] [address] [place] [address] Ivonne French PA-C [address] [place] [address] Pending Results Name Type Priority Associated Diagnoses Date /Time PTH Lab STAT Hypocalcemia 01/10/2024 10:33 AM EST Scheduled Orders Name Type Priority Associated Diagnoses Orde r Schedule PTH Lab STAT Hypocalcemia Expected: 01/10/2024, Expires: Scheduled Procedures Name Priority Associated Diagnoses Date/Ti [...] this encounter Medical Devices Implanted Type Area Pharmacovigilance Scientist Device Identifier Shelf Expiration Date Model / Serial / Lot Lens Intraoc 21.0 - [id number] - [id number] Implanted:Qty : 1 on 07/06/2017 by Luis Eduardo Cole MD at OR [facility] Left: Eye [employer] 01/05/2022 [id number] / [id number] / Lens Intraoc 21.0 - [id number] - [id number] Implanted:Qty : 1 on 07/20/2017 by Luis Eduardo Cole MD at OR [facility] Right: Eye [employer] 01/05/2022 [id number] / [id number] / Syringe Prolaryn Del 1.0cc - [id number] Implanted:Qty : 1 on 11/20/2019 by Amber Jain MD at [facility] Right: Mouth [employer] 10/21/2021 [id number] / / [id number] Implant Silastic 7 Silicone Sw - [id number] Implanted:Qty : 1 on 05/28/2020 by Farhat Pate MD at OR [facility] Right: Throat Aspida [id number] / / documented as of this encounter Visit Diagnoses Diagnosis 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sion (HCC)- Primary Hypocalcemia Constipation, unspecified constipation type Encounter to discuss test results Other specified counseling Encounter to discuss treatment options Other specified counseling Volume overload state of heart Antineoplastic chemotherapy induced anemia documented in this encounter Advance Directives Latest Code Status on File Code Status Date Activated Date Inactivated Comments No Code 11/24/2023 7:24 PM 12/28/2023 9:25 PM This order reflects the patients wishes and were consensually agreed upon. Question Answer Comments Discussion of Advance Directives occurred with: Patient Does the patient have a Living Will? No Does the patient have Health Care Power of Assessment Specialist? No Code Status History Code Status [...] and were consensually agreed upon. Care Teams Jewel Hole Finish Opener Relationship Specialty Start Date End Date Ivonne French PA-C [address] [place] [address] PCP - General Physician Behavioral Analyst 07/24/21 documented as of this encounter
--- OUTSIDE RECORDS SUMMARY | 2024-01-29 21:24 | External Medical Summary | Summary of Care ---
Author Name Unknown Organization [facility] Address [address] [place] [address] Phone [phone] Care Team Providers Care Lie Detector Operator Name Role Phone Ivonne French PA-C Primary Care Provider [phone] Reason for Visit * Reason Comments Outpatient Testing Encounter Details Date Type Department Care Team (Late st Contact Info) Description 01/10/2024 10:30 AM EST Laboratory Laboratory, [facility] [address] [place] [phone] [facility], Lab [address] [place] [address] 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sion [...] E11.9 1 Kit 0 05/25/2023 Active Pen [place] 32G X 4 MM Use as directed. 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 Use when checking blood [...] Description 01/10/2024 11:30 AM EST Telemedicine Hematology/Oncology, [address] [place] [address] Ortega Verde MD [address] [place] [address] [facility] Hem Onc Clinic [address] [place] [address] 01/10/2024 12:00 PM EST Hem/Onc Treatment Hematology/Oncology Treatment, [address] [address] [facility], Chair9 Hem Onc [address] [place] [address] Arrived 01/10/2024 12:30 PM EST Office Visit Palliative Medicine, [address] [place] [address] Nati Easley PA-C [address] [place] [address] Arrived 01/12/2024 8:10 AM EST Laboratory Laboratory [facility] Sofie [place] [address] [place] [phone] [facility] [address] [place], [place] [address] 01/12/2024 8:45 AM EST Office Visit Hematology/Oncology [facility] [place] [address] [place], [place] [phone] Shon Rice MD [address] [place], [place] [address] 01/14/2024 11:30 AM EST Laboratory Laboratory, [address] [address] [facility], Lab [address] [place] [address] 01/14/2024 12:30 PM EST Hem/Onc Treatment Hematology/Oncology Treatment, [facility] [address] [facility] [place], [place] [address] [facility], Chair10 Hem Onc [address] [facility] [place], [place] [address] 01/26/2024 9:00 AM EDT Office Visit Pharmacy, [facility] [address] [facility] [place] [address] [facility] [address] [facility] [place] [address] 01/31/2024 9:00 AM EDT Imaging Radiology [facility] 1st [facility] [address] [place] [address] 02/10/2024 11:40 AM EDT Office Visit [facility] [place] [address] [facility], [place] [address] Ivonne French PA-C [address] [facility], [place] [address] 03/14/2024 10:00 AM EDT Office Visit [facility] [place] [address] [facility] [address] Ivonne French PA-C [address] [facility], [place] [address] 04/18/2024 10:00 AM EDT Office Visit [facility] [place] [address] [facility], [place] [address] Ivonne French PA-C [address] [facility] [address] 05/10/2024 8:15 AM EDT Office Visit Ophthalmology, [place] [address] [place] [address] Migel Ramires MD [address] [place] [address] 05/16/2024 10:00 AM EDT [facility] [address] [place] [phone] Ivonne French PA-C [address] [place], [place] [phone] Pending Results Name Type Priority Associated Diagnoses Date /Time CBC WITH WBC DIFFERENTIAL Lab STAT 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sion (HCC) 01/10/2024 10:33 AM EST COMPREHENSIVE METABOLIC PANEL Lab STAT 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sion (HCC) 01/10/2024 10:33 AM EST TYPE AND SCREEN Lab STAT 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sion (HCC) 01/10/2024 10:33 AM EST CBC Lab STAT 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sion (HCC) 01/10/2024 10:33 AM EST DIFFERENTIAL, AUTOMATED Lab STAT 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sion (HCC) 01/10/2024 10:33 AM EST Scheduled Procedures Name Priority Associated [...] this encounter Medical Devices Implanted Type Area R And D Lab Technician Device Identifier Shelf Expiration Date Model / Serial / Lot Lens Intraoc 21.0 - [id number] - [id number] Implanted:Qty : 1 on 07/06/2017 by Luis Eduardo Cole MD at OR [facility] Left: Eye BAUSCH [employer] LOMB 01/05/2022 [id number] / [id number] / Lens Intraoc 21.0 - [id number] - [id number] Implanted:Qty : 1 on 07/20/2017 by Luis Eduardo Cole MD at OR [facility] Right: Eye BAUSCH & LOMB 01/05/2022 [id number] / [id number] / Syringe Prolaryn Del 1.0cc - [id number] Implanted:Qty : 1 on 11/20/2019 by Amber J[place] [facility] [place]: Mouth [employer] 10/21/2021 [id number] / / [id number] Implant Silastic 7 Silicone Sw - [id number] Implanted:Qty : 1 on 05/28/2020 by Farhat Pate MD [place] [facility] Right: Throat iDoneThis [id number] / / documented as of this [...] the patient have Health Care Power of Crusher Loader Equipment Operator? No Code Status History Code Status [...] and were consensually agreed upon. Care Teams Lie Detector Operator Relationship Specialty Start Date End Date Ivonne French PA-C [address] [facility] [place] [address] PCP - General Physician Grants And Contracts Assistant 07/24/21 documented as of this encounter
--- OUTSIDE RECORDS SUMMARY | 2024-01-29 21:24 | External Medical Summary | Summary of Care ---
Author Name Unknown Organization [facility] Address [address] [place] [place] [address] Phone [phone] Care Team Providers Care Editor Farm Journal Name Role Phone Ivonne French PA-C Primary Care Provider [phone] Reason for Visit * Reason Comments Treatment Packed Red Blood Opal ls and Magnesium Infusion Encounter Details Date Type Department Care Team (Latest Contact Info) Description 01/07/2024 12:30 PM EST Hem/Onc Treatment Hematology/Oncology Treatment, [address] [address] [facility], Chair4 Hem Onc [address] [place] [address] 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sion (HCC)*; Encounter to discuss test results; Hypocalcemia; Hypomagnesemia Allergies Active Allergy Reactions Criticality Noted Date [...] E11.9 1 Kit 0 05/25/2023 Active Pen [place] 32G X 4 MM Use as directed. [...] Strip 5 12/28/2023 Active OneTouch Delica Plus [id number] Use as directed. Use when checking blood [...] Sign Reading Time Taken Comments Blood Pressure 125/62 01/07/2024 4:02 PM EST Pulse 63 01/07/2024 4:02 PM EST Temperature 36.1 C (97 F) 01/07/2024 4:02 PM EST Respiratory Rate 18 01/07/2024 4:02 PM EST Oxygen Saturation - - Inhaled Oxygen Concentration - - Weight 87.8 kg (193 lb 9.6 oz) 01/07/2024 12:05 PM EST Height - - Body Mass Index 29.44 01/07/2024 9:59 AM EST documented in this [...] this encounter Patient Instructions * Patient Instructions* Francesca Beckham RN - 01/07/2024 2:35 PM EST POST TRANSFUSION INSTRUCTIONS FOR THE [...] hours and on weekends, call the hospital-paging wrecker operator at one of the below listed numbers and ask to speak with an emergency room physician or the medical center representative of transfusion medicine. [facility] - [phone] [facility] - [phone] [facility] - [phone] [facility], a campus of [facility] - [phone] [facility] - [phone] [facility] - [phone] [facility] - ext. 4 [facility] - You received 1 unit of packed red blood cells. Your temperature, pulse, and blood pressure at the end of your transfusion are as follows: Temperature: 36.4 Pulse: 63 Blood Pressure: 122/61 documented in this encounter Nursing Notes * Francesca Beckham RN - 01/07/2024 12:06 PM EST [place] # 10 Pt is here for 1 unit of packed red blood cells and magnesium infusion. Consent for blood signed on 12/07/23. Lungs auscultated to be clear throughout prior to starting transfusion and following blood transfusion. Pt tolerated blood transfusion and magnesium infusion well. Patient left IVC by ambulating. Unaccompanied. Voiced no complaints. Francesca Beckham RN 01/07/2024 [facility] Nursing Care Plan ID is not set. 01/07/2024 Safety and Risk for Injury Patient will [...] Description 01/10/2024 10:30 AM EST Laboratory Laboratory, [address] [place] [address] [facility], Lab [address] [place] [address] 01/10/2024 11:30 AM EST Telemedicine Hematology/Oncology , [address] [place] [address] Ortega Verde MD [address] [place] [address] Shayla, Telemed [facility] Hem Onc Clinic [address] [place] [address] 01/10/2024 12:00 PM EST Hem/Onc Treatment Hematology/Oncology Treatment, [address] [address] [facility], Chair9 Hem Onc [address] [place] [address] 01/10/2024 12:30 PM EST Office Visit Palliative Medicine, [address] [place] [address] Nati Easley PA-C [address] [place] [address] 01/12/2024 8:10 AM EST Laboratory Laboratory [facility] [address] [place] [phone] [place] [address] 01/12/2024 8:45 AM EST Office Visit Hematology/Oncology [facility] [place] [address] [place], [place] [phone] Shon Rice MD [address] [place] [address] 01/14/2024 11:30 AM EST Laboratory Laboratory, [address] [address] [facility], Lab [address] [place] [address] 01/14/2024 12:30 PM EST Hem/Onc Treatment Hematology/Oncology Treatment, [facility] [address] [place] [address] [facility], Chair10 Hem Onc [address] [place] [address] 01/17/2024 10:00 AM EDT Hospital Encounter OR [facility], Operating Room, [facility] - 4th Floor [address] [place] [address] [facility], In And Out Surgery [address] [place] [address] 01/17/2024 10:00 AM EDT - 01/17/2024 11:00 AM EDT Surgery OR [facility], Operating Room, [facility] - 4th Floor [address] [place] [address] [facility], In And Out Surgery [address] [place] [address] PRE / POST CARE 01/26/2024 9:00 AM EDT Office Visit Pharmacy, [facility] [address] [place] [address] [facility] [address] [place] [address] 01/31/2024 9:00 AM EDT Imaging Radiology [facility] 1st [facility] [address] [place] [address] 02/10/2024 11:40 AM EDT Office Visit Nyasia Floresefonte [address] [place] [phone] Ivonne French PA-C [address] [facility] [place] [address] 03/14/2024 10:00 AM EDT Office Visit [place] [address] [place] [phone] Ivonne French PA-C [address] [place] [address] 04/18/2024 10:00 AM EDT Office Visit [place] [address] [place] [facility] [place] [address] Ivonne French PA-C [address] [place] [address] 05/10/2024 8:15 AM EDT Office Visit Ophthalmology, [place] [address] [facility] [place] [address] Migel Ramires MD [address] [place] [address] 05/16/2024 10:00 AM EDT Office Visit [place] [address] [place] [phone] Ivonne French PA-C [address] [place], [place] [phone] Scheduled Procedures Name Priority Associated Diagnoses Date/Ti [...] this encounter Medical Devices Implanted Type Area Invas Tech Device Identifier Shelf Expiration Date Model / Serial / Lot Lens Intraoc 21.0 - [id number] - [id number] Implanted:Qty : 1 on 07/06/2017 by Luis Eduardo Cole MD at [facility] Left: Eye BAUSCH [employer]OM[employer] 01/05/2022 [id number] / [id number] / Lens Intraoc 21.0 - [id number] - [id number] Implanted:Qty : 1 on 07/20/2017 by Luis Eduardo Cole MD at OR [facility] Right: Eye [employer]OM[employer] 01/05/2022 [id number] / [id number] / Syringe Prolaryn Del 1.0cc - [id number] Implanted:Qty : 1 on 11/20/2019 by Amber Jain MD [place] [facility] [place]: Mouth [employer] 10/21/2021 [id number] / / [id number] Implant Silastic 7 Silicone Sw - [id number] Implanted:Qty : 1 on 05/28/2020 by Farhat Pate MD [place] [facility] Right: Throat [employer] [id number] / / documented as of this encounter Procedures Procedure Name Priority Date/Time Associated Diagnosis Comments TRANSFUSE PACKED RED BLOOD CELLS Routine 01/07/2024 12:34 PM EST 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sion (HCC) PREPARE PACKED RED BLOOD CELLS Routine 01/07/2024 12:05 PM EST 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sion (HCC) documented in this encounter Results * TRANSFUSE PACKED RED BLOOD CELLS (01/07/2024 2:46 PM EST) Ortega Verde MD [facility] BANK TR ANFUSE ORDERABLES * TRANSFUSE PACKED RED BLOOD CELLS (01/07/2024 2:46 PM EST) Ortega Verde MD [facility] B[facility] TR ANFUSE ORDERABLES * PREPARE PACKED RED BLOOD CELLS (01/07/2024 12:05 PM EST) Unit Product Code [id number] LABORATORY [facility] BLOOD BANK Unit Number [id number] LABO RATORY [facility] BLOOD BANK Unit ABO O LABORATORY [facility] BLOOD BANK Unit Rh POS LABORATORY [facility] BLOOD BANK Unit Crossmatch Compatible LABORATORY [facility] BLOOD BANK Unit Status IS LABORATO RY [facility] BLOOD BANK Unit Blood Type OPOS LABORATORY [facility] BLOOD BANK Unit Expiration [id number] LABORATORY [facility] BLOOD BANK Unit Barcode 5100 LABORAT ORY [facility] BLOOD BANK 01/07/2024 12:0 5 PM EST Ortega Verde MD BLD BANK ND ODUCT ORDERABLES LABORATORY [facility] BLOOD BANK [address] [place] [address] documented in this encounter Visit Diagnoses Diagnosis 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sion (HCC)- Primary Encounter to discuss test results Other specified counseling Hypocalcemia Hypomagnesemia 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 Acetaminophen (Tylenol) tab 650 mg 650 mg, Oral, ONCE PRN Other, Transfusion Reaction, Starting on Wed01/07/24 at 1202, Until 01/08/24 at 1201, For 24 hours, Maximum of 4 grams (4000 mg) per day. diphenhydrAMINE (Benadryl) cap 25 mg 25 mg, Oral, ONCE PRN Other, If previous infusion reaction with blood transfusion, Starting on Wed01/07/24 at 1315, Until Discontinued diphenhydrAMINE (Benadryl) cap 25 mg 25 mg, Oral, ONCE PRN Other, Transfusion Reaction, Starting on Wed01/07/24 at 1202, Until 01/08/24 at 1201, For 24 hours diphenhydrAMINE (Benadryl) inj 50 mg 50 mg, IV Push, ONCE PRN Other, Hypersensitivity Reaction, Starting on Wed01/07/24 at 1202, Until 01/08/24 at 1201, For 24 hours diphenhydrAMINE (Benadryl) inj 50 mg 50 mg, IV Push, ONCE PRN Other, Hypersensitivity Reaction, Starting on Wed01/07/24 at 1421, Until 01/08/24 at 1420, For 24 hours EPINEPHrine 1 MG/ML inj 0.3 mg 0.3 mg, Intramuscular, ONCE PRN Other, Hypersensitivity Reaction or Anaphylaxis, Starting on Wed01/07/24 at 1202, Until 01/08/24 at 1201, For 24 hours EPINEPHrine 1 MG/ML inj 0.3 mg 0.3 mg, Intramuscular, ONCE PRN Other, Hypersensitivity Reaction or Anaphylaxis, Starting on Wed01/07/24 at 1421, Until 01/08/24 at 1420, For 24 hours hEParin 100 UNIT/ML Lock Flush inj 500 Units 500 Units (5 mL), IV Lock, PRN Other, IV Flush, Starting on Wed01/07/24 at 1202, Until 01/08/24 at 1201, For 24 hours, Do not flush if lock, PICC, or central line not in place; IV infusing or unable to flush. hEParin 100 UNIT/ML Lock Flush inj 500 Units 500 Units (5 mL), IV Lock, PRN Other, IV Flush, Starting on Wed01/07/24 at 1421, Until 01/08/24 at 1420, For 24 hours, Do not flush if lock, PICC, or central line not in place; IV infusing or unable to flush. Hydrocortisone Sod Suc (PF) (Solu-Cortef) inj 100 mg 100 mg, IV Push, ONCE PRN Other, If previous infusion reaction with blood transfusion, Starting on Wed01/07/24 at 1315, Until Discontinued Hydrocortisone Sod Suc (PF) (Solu-Cortef) inj 100 mg 100 mg, IV Push, ONCE PRN Other, Hypersensitivity Reaction, Starting on Wed01/07/24 at 1202, Until 01/08/24 at 1201, For 24 hours Hydrocortisone Sod Suc (PF) (Solu-Cortef) inj 100 mg 100 mg, IV Push, ONCE PRN Other, Hypersensitivity Reaction, Starting on Wed01/07/24 at 1421, Until 01/08/24 at 1420, For 24 hours NSS infusion 500 mL, Intravenous, at 50 mL/hr, CONTINUOUS, Starting on Wed01/07/24 at 1315, Until Wed01/07/24 at 2314 Start Infusion 01/07/2024 2:48 PM EST 500 mL 50 mL/hr oxygen GAS Inhalation, OXYGEN, First dose on Wed01/07/24 at 1600, Until Discontinued, Device/Managed by: Low [...] Push, PRN Other, IV Flush, Starting on Wed01/07/24 at 1202, Until 01/08/24 at 1201, For 24 hours, Do not flush if lock, PICC, or central line not in place; IV infusing or unable to flush. sodium chloride 0.9 % flush central line 10 mL 10 mL, IV Push, PRN Other, IV Flush, Starting on Wed01/07/24 at 1421, Until 01/08/24 at 1420, For 24 hours, Do not flush if lock, PICC, or central line not in place; IV infusing or unable to flush. Inactive Administered Medications - up to 3 most recent administrations Medication Order MAR Action Action Date Dose Rate Site NSS 100 mL with magnesium sulfate 1 g INFUSION Peripheral IV, at 100 mL/hr Administer over 1 Hours, ONCE, 1 dose, On Wed01/07/24 at 1500 Start Infusion 01/07/2024 2:51 PM EST 100 mL/hr documented in this encounter Advance [...] the patient have Health Care Power of Clearing House Clerk? No Code Status History Code Status [...] and were consensually agreed upon. Care Teams Editor Farm Journal Relationship Specialty Start Date End Date Ivonne French PA-C [address] [place] [address] PCP - General Physician Stone Mill Operator 07/24/21 documented as of this encounter
--- OUTSIDE RECORDS SUMMARY | 2024-01-29 21:25 | External Medical Summary | Summary of Care ---
Author Name Unknown Organization [facility] Address [address] [place] [address] Phone [phone] Care Team Providers Care Digital Asset Coordinator Name Role Phone Ivonne French PA-C Primary Care Provider [phone] [phone] Reason for Visit * Reason Onset Date Comments Appointment 01/06/2024 Encounter Details Date Type Department Care Team (Late st Contact Info) Description 01/06/2024 Telephone Hematology/Oncology Treatment, [place] [address] [place] [address] Ortega Verde MD [address] [place] [address] Appointment Allergies Active Allergy Reactions Criticality Noted Date Comments Adhesive Tape 04/21/2016 Glue off the old style medical tape. documented as of this encounter (statuses as of 01/06/2024) Medications Medication Sig Dispensed Refills Start Date [...] E11.9 1 Kit 0 05/25/2023 Active Pen [place] 32G X 4 MM Use as directed. [...] Hour (toPROL XL)Indications:Craig nary artery disease involving lumbee coronary artery of lumbee heart without angina pectoris Take 2 Tablets [...] Strip 5 12/28/2023 Active OneTouch Delica Plus Aladtb25A Use as directed. 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 Needs repeat BMBx next week. Requesting to have this done at . Reviewed with Dr Rice, he is agreeable. Scheduling: - please call patient to offer BMBx appt with Dr Rice 01/12/24 at 8:45am - she will need labs 30 min prior "CBCd, CMP" - please notify lab this is being added (for the usual- flow, cyto, fish) so that they have this ontheir schedule Thanks! documented in this encounter Plan of Treatment Upcoming Encounters Date Type Department Care Team (Late st Contact Info) Description 01/07/2024 10:00 AM EST Office Visit [facility] [address] [facility], [place] [address] Ivonne French PA-C [address] [place] [facility] [address] 01/07/2024 11:30 AM EST Laboratory Laboratory, [address] [phone] [facility], Lab [address] [place] [address] 01/07/2024 12:30 PM EST Hem/Onc Treatment Hematology/Oncology Treatment, [address] [address] [facility], [facility] Hem Onc [address] [place] [address] 01/10/2024 10:30 AM EST Laboratory Laboratory, [address] [phone] [facility], Lab [address] [place] [address] 01/10/2024 11:30 AM EST Telemedicine Hematology/Oncology , [address] [address] Ortega Verde MD [address] [place] [address] Cart, Telemed [facility] Hem Onc Clinic [address] [place], [place] [address] [address] 01/10/2024 12:00 PM EST Hem/Onc Treatment Hematology/Oncology Treatment, [address], [place] [address] [facility], Chair9 Hem Onc [address] [place] [address], [place] [address] 01/10/2024 12:30 PM EST Office Visit Palliative Medicine, [address] 5th [facility], [place] [address] Nati Easley, PA-C [address] [place] [address] 01/14/2024 11:30 AM EST Laboratory Laboratory, [address], [place] [address] [facility], Lab [address] [place] [address], [place] [address] 01/14/2024 12:30 PM EST Hem/Onc Treatment Hematology/Oncology Treatment, [address], [place] [address] [facility], Chair10 Hem Onc [address] [place] [address], [place] [address] 01/17/2024 10:00 AM EDT Hospital Encounter OR [facility], Operating Room, [facility] - 4th Floor [address] [place] [address] [place] [address] [facility], In And Out Surgery [address] [place] [address] [place] [address] 01/17/2024 10:00 AM EDT - 01/17/2024 11:00 AM EDT Surgery OR [facility], Operating Room, [facility] - 4th Floor [address] [place] [address] [place] [address] [facility], [facility] [place] [address] PRE / POST CARE 01/26/2024 9:00 AM EDT Office Visit Pharmacy, [facility] [address] [facility] [place] [address] [facility] [address] [facility] [place] [address] 01/31/2024 9:00 AM EDT Imaging Radiology [facility] 1st [facility] [address] [place] [address] 02/10/2024 11:40 AM EDT Office Visit [facility] [address] [facility] [phone] Ivonne French PA-C [address] [facility] [place] [address] 05/10/2024 8:15 AM EDT Office Visit Ophthalmology, [place] [address] [place] [address] Migel Ramires MD [address] [place] [address] Scheduled Procedures Name Priority Associated Diagnoses Date/Ti [...] 11/24/2022, 0 07/22/2021, 07/03/2020, Additional history exists B-12 12/25/2023 12/25/2022, 06/0 06/2022, 07/23/2021, Additional history exists Mammogram 01/28/2024 01/27/2023, 01/07, [...] this encounter Medical Devices Implanted Type Area Rice Cleaning Machine Tender Device Identifier Shelf Expiration Date Model / Serial / Lot Lens Intraoc 21.0 - [id number] - [id number] Implanted:Qty : 1 on 07/06/2017 by Luis Eduardo Cole MD at OR [facility] Left: Eye [employer]US[employer] LOMB 01/05/2022 [id number] / [id number] / Lens Intraoc 21.0 - [id number] - [id number] Implanted:Qty : 1 on 07/20/2017 by Luis Eduardo Cole MD at OR [facility] Right: Eye BAUSCH & LOMB 01/05/2022 [id number] / [id number] / Syringe Prolaryn Del 1.0cc - [id number] Implanted:Qty : 1 on 11/20/2019 by Amber Jain MD at OR [facility] Right: Mouth [employer] 10/21/2021 [id number] / / [id number] Implant Silastic 7 Silicone Sw - [id number] Implanted:Qty : 1 on 05/28/2020 by Farhat Pate MD at OR [facility] Right: Throat Synthego [id number] / / documented as of this [...] the patient have Health Care Power of Ladies Locker Room Attendant? No Code Status History Code Status [...] and were consensually agreed upon. Care Teams Digital Asset Coordinator Relationship Specialty Start Date End Date Ivonne French PA-C [address] [place] [address] PCP - General Physician Epidemiology Internship 07/24/21 documented as of this encounter
--- OUTSIDE RECORDS SUMMARY | 2024-01-29 21:25 | External Medical Summary ---
Author Name Unknown Address Unknown Organization K1F:[facility] [address] [facility] [place] [address] Laboratory Report Ordering Provider Test Date Status BRADLY BERMAN 01/07/2024 11:27:15 Final Observation Date Value Abnormality Reference (Units ) Status BUN 01/07/2024 11:27:15 28 Above high normal 6-20 (mg/dL) Final Creatinine 01/07/2024 11:27:15 1.0 0.5-1.0 (mg/dL) Final Glomerular filtration rate/1.73 sq M.predicted [Volume Rate/Area] in Serum, Plasma or Blood by Creatinine-based formula (CKD-EPI) 01/07/2024 11:27:15 67 >=60 (mL/min) Final eGFR is calculated based on the CKD-EPI 2020 equation SODIUM 01/07/2024 11:27:15 137 135-146 (m mol/L) Final Potassium 01/07/2024 11:27:15 4.0 3.5-5.1 (m mol/L) Final Cl 01/07/2024 11:27:15 97 Below low normal 98- 107 (mmol/L) Final CO2 01/07/2024 11:27:15 25 22-32 (mmo l/L) Final Anion gap 01/07/2024 11:27:15 15 7-15 (mmol /L) Final Glucose 01/07/2024 11:27:15 353 Above high normal 70 -120 (mg/dL) Final Albumin 01/07/2024 11:27:15 3.5 Below low normal 3.8 -5.0 (g/dL) Final AST (Aspartate aminotransferase) 01/07/2024 11:27:15 19 10-35 (U/L) Fin al Alk Phos 01/07/2024 11:27:15 128 35-130 (U/ L) Final Bilirubin, Total 01/07/2024 11:27:15 0.6 <=1 .2 (mg/dL) Final Calcium 01/07/2024 11:27:15 7.9 Below low normal 8.4 -10.2 (mg/dL) Final Protein 01/07/2024 11:27:15 6.7 6.0-8.3 (g /dL) Final ALT (Alanine aminotransferase) 01/07/2024 11:27:15 26 10-35 (U/L) Colin lee Performing Location LABORATORY [address] [place] [address]
--- OUTSIDE RECORDS SUMMARY | 2024-01-29 21:25 | External Medical Summary ---
Author Name Unknown Address Unknown Organization K1F:[facility] - [address] [place] [address] Laboratory Report Ordering Provider Test Date Status PHILLIP SERNA 01/07/2024 11:26:08 Final Observation Date Value Abnormality Reference (Units ) Status Magnesium 01/07/2024 11:26:08 1.5 1.5-2.6 (m g/dL) Final Performing Location LABORATORY [facility] - [address] [place] [address]
--- OUTSIDE RECORDS SUMMARY | 2024-01-29 21:25 | External Medical Summary ---
Author Name Unknown Address Unknown Organization : Laboratory Report Ordering Provider Test Date Status PHILLIP SERNA 01/07/2024 11:26:08 Final Observation Date Value Abnormality Reference (Units ) Status PTH-related Protein 01/07/2024 11:26:08 9 Below low normal 11-20 (pg/mL) Final This is a C-terminal PTH-RP assay. PTH-RP is
useful in the differential diagnosis of
hypercalcemia and levels may be elevated in
patients with tumor-associated hypercalcemia.
Elevated results may also be observed in patients
with renal disease.
This test was developed and its analytical
performance characteristics have been determined
by [facility]. It has not been cleared or
approved by FDA. This assay has been validated
pursuant to the CLIA regulations and is used for
clinical purposes.
Test performed by [facility]
[address],
[place] [address]

Blind Stitch Machine Operator: Kusum Rothman MD,PHD,LUIS CARLOS
Test Reported by [facility],
[facility],
[address] [place], [place]
Elgin Redman M.D., Ph.D., Director of Laboratories
, CLIA [id number] Performing Location
--- OUTSIDE RECORDS SUMMARY | 2024-01-29 21:25 | External Medical Summary | Summary of Care ---
Author Name Unknown Organization [facility] Address [address] [place] [address] Phone [phone] Care Team Providers Care Home Health Caregiver Name Role Phone Ivonne French PA-C Primary Care Provider [phone] Reason for Visit * Reason Onset Date Comments Appointment 01/06/2024 Encounter Details Date Type Department Care Team (Late st Contact Info) Description 01/06/2024 Telephone Hematology/Oncology Treatment, [place] [address] [place] [address] Ortega Verde MD [address] [place] [address] Appointment Allergies Active Allergy Reactions [...] E11.9 1 Kit 0 05/25/2023 Active Pen [place] 32G X 4 MM Use as directed. 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 Use when checking blood [...] encounter Miscellaneous Notes * Telephone Encounter - Lenore Diaz LPN - 01/07/2024 8:07 AM EST Called cell left detailed message about scheduling BMBX 01/11 arrival at 815am for labs and 845 for procedure and to return our call to confirm information above * Telephone Encounter - Rosette Clinton RN - 01/06/2024 3:27 PM EST Patient currently seeing Dr Verde at [facility]. Needs repeat BMBx next week. Requesting to [...] Description 01/07/2024 11:30 AM EST Laboratory Laboratory, [address] [phone] [facility], Lab [address] [place] [address] 01/07/2024 12:30 PM EST Hem/Onc Treatment Hematology/Oncology Treatment, [address] [address] [facility], [facility] Hem Onc [address] [place] [address] 01/10/2024 10:30 AM EST Laboratory Laboratory, [address] [phone] [facility], Lab [address] [place] [address] 01/10/2024 11:30 AM EST Telemedicine Hematology/Oncology , [address] [address] Ortega Verde MD [address] [place] [address] Cart, Telemed [facility] Hem Onc Clinic [address] [place] [address] 01/10/2024 12:00 PM EST Hem/Onc Treatment Hematology/Oncology Treatment, [address] [place] [address] [facility], Chair9 Hem Onc [address] [place] [address], [place] [address] 01/10/2024 12:30 PM EST Office Visit Palliative Medicine, [address] 5th [facility] [place] [address] Nati Easley PA-C [address] [place] [address] 01/12/2024 8:10 AM EST Laboratory Laboratory [facility] [address] [place] [phone] [place] [address] 01/12/2024 8:45 AM EST Office Visit Hematology/Oncology [facility] [place] [address] [facility] [phone] Shon Rice MD [address] [place] [facility] [place] [address] 01/14/2024 11:30 AM EST Laboratory Laboratory, [address], [place] [address] [facility], Lab [address] [place] [address], [place] [address] 01/14/2024 12:30 PM EST Hem/Onc Treatment Hematology/Oncology Treatment, [address] [address] [facility], Chair10 Hem Onc [address] [place] [address] 01/17/2024 10:00 AM EDT Hospital Encounter OR [facility], Operating Room, [facility] - 4th Floor [address] [place] [address] [facility], In And Out Surgery [address] [place] [address] 01/17/2024 10:00 AM EDT - 01/17/2024 11:00 AM EDT Surgery OR [facility], Operating Room, [facility] - 4th Floor [address] [place] [address] [facility], In And Out Surgery [address] [place] [address] PRE / POST CARE 01/26/2024 9:00 AM EDT Office Visit Pharmacy, [facility] [address] [facility] [place] [address] [facility] [address] [facility] [place] [address] 01/31/2024 9:00 AM EDT Imaging Radiology [facility] 1st [facility] [address] [place] [address] 02/10/2024 11:40 AM EDT Office Visit [facility] [address] [place] [phone] Ivonne French PA-C [address] [place] [address] 05/10/2024 8:15 AM EDT Office Visit Ophthalmology, [address] [place] [address] Migel Ramires MD [address] [place] [address] Scheduled Procedures Name Priority Associated Diagnoses Date/Ti [...] this encounter Medical Devices Implanted Type Area Director Of Audiology Device Identifier Shelf Expiration Date Model / Serial / Lot Lens Intraoc 21.0 - [id number] - [id number] Implanted:Qty : 1 on 07/06/2017 by Luis Eduardo Cole MD at OR [facility] Left: Eye BAUSCH & LOMB 01/05/2022 [id number] / [id number] / Lens Intraoc 21.0 - [id number] - [id number] Implanted:Qty : 1 on 07/20/2017 by Luis Eduardo Cole MD at OR [facility] Right: Eye BAUSCH & LOMB 01/05/2022 [id number] / [id number] / Syringe Prolaryn Del 1.0cc - [id number] Implanted:Qty : 1 on 11/20/2019 by Amber Jain MD at OR [facility] Right: Mouth [employer] 10/21/2021 [id number] / / [id number] Implant Silastic 7 Silicone Sw - [id number] Implanted:Qty : 1 on 05/28/2020 by Farhat Pate MD at OR [facility] Right: Throat [employer] [id number] / / documented as of this [...] the patient have Health Care Power of Ocular Pathologist? No Code Status History Code Status Date [...] and were consensually agreed upon. Care Teams Home Health Caregiver Relationship Specialty Start Date End Date Ivonne French PA-C [address] [place] [address] PCP - General Physician Scientific Linguist 07/24/21 documented as of this encounter
--- OUTSIDE RECORDS SUMMARY | 2024-01-29 21:25 | External Medical Summary | Summary of Care ---
Author Name Unknown Organization [facility] Address [address] [place] [address] Phone [phone] Care Team Providers Care Senior Analytical Chemist Name Role Phone Ivonne French PA-C Primary Care Provider [phone] Reason for Visit * Reason Onset Date Comments Appointment 01/06/2024 Encounter Details Date Type Department Care Team (Late st Contact Info) Description 01/06/2024 Telephone Hematology/Oncology Treatment, [place] [address] [place] [address] Ortega Verde MD [address] [place] [address] Appointment Allergies Active Allergy Reactions [...] E11.9 1 Kit 0 05/25/2023 Active Pen [place] 32G X 4 MM Use as directed. [...] Hour (toPROL XL)Indications:Craig nary artery disease involving southern ute coronary artery of southern ute heart without angina pectoris Take 2 Tablets [...] Strip 5 12/28/2023 Active OneTouch Delica Plus Kyavbd27Y Use as directed. Use when checking blood [...] Encounter - Lenore Diaz LPN - 01/07/2024 10:12 AM EST Lab was made aware of appt * Telephone Encounter - Lenore Diaz LPN - 01/07/2024 8:07 AM EST Called cell left detailed message about scheduling BMBX 01/11 arrival at 815am for labs and 845 for procedure and to return our call to confirm information above * Telephone Encounter - Rosette Clinton RN - 01/06/2024 3:27 PM EST Patient currently seeing Dr Verde at [facility]. Needs repeat BMBx next week. Requesting [...] Description 01/07/2024 11:30 AM EST Laboratory Laboratory, [address] [phone] [facility], Lab [address] [place] [address], [place] [address] 01/07/2024 12:30 PM EST Hem/Onc Treatment Hematology/Oncology Treatment, [address] [address] [facility], Chair4 Hem Onc [address] [place] [address], [place] [address] 01/10/2024 10:30 AM EST Laboratory Laboratory, [address] [address] [facility], Lab [address] [facility], [place] [address] 01/10/2024 11:30 AM EST Telemedicine Hematology/Oncology , [address] [address] Ortega Verde MD [address] [place] [address] Shayla, Telemed [facility] Hem Onc Clinic [address] [place] [address] 01/10/2024 12:00 PM EST Hem/Onc Treatment Hematology/Oncology Treatment, [address] [address] [facility], Chair9 Hem Onc [address] [place] [address] 01/10/2024 12:30 PM EST Office Visit Palliative Medicine, [address] 5th [place] [address] Nati Easley PA-C [address] [place] [address] 01/12/2024 8:10 AM EST Laboratory Laboratory [facility] [address] [place] [phone] [facility] [address] [place] [address] 01/12/2024 8:45 AM EST Office Visit Hematology/Oncology [facility] [place] [address] [place], [place] [phone] Shon Rice MD [address] [place] [address] 01/14/2024 11:30 AM EST Laboratory Laboratory, [address] [address] [facility], Lab [address] [place] [address] 01/14/2024 12:30 PM EST Hem/Onc Treatment Hematology/Oncology Treatment, [facility] [address] [place] [address] [facility], Chair10 Hem Onc [address] [address] 01/17/2024 10:00 AM EDT Hospital Encounter OR [facility], Operating Room, [facility] - 4th Floor [address] [place] [address] [facility], In And Out Surgery [address] [place] [address] 01/17/2024 10:00 AM EDT - 01/17/2024 11:00 AM EDT Surgery OR [facility], Operating Room, [facility] - 4th Floor [address] [address] [facility], In And Out Surgery [address] [place] [address] PRE / POST CARE 01/26/2024 9:00 AM EDT Office Visit Pharmacy, [facility] [place] [address] [facility] [address] [place] [address] 01/31/2024 9:00 AM EDT Imaging Radiology [facility] 1st [facility] 132 [facility] [place] [address] 02/10/2024 11:40 AM EDT Office Visit [facility] [address] [place] [phone] Ivonne French PA-C [address] [place] [address] 05/10/2024 8:15 AM EDT Office Visit Ophthalmology, [address] [place] [address] Migel Ramires MD 21 [facility] [place] [address] Scheduled Procedures Name Priority Associated Diagnoses Date/Ti [...] this encounter Medical Devices Implanted Type Area Nuclear Medicine Medical Director Device Identifier Shelf Expiration Date Model / Serial / Lot Lens Intraoc 21.0 - [id number] - [id number] Implanted:Qty : 1 on 07/06/2017 by Luis Eduardo Cole MD at OR [facility] Left: Eye [employer]CH [employer] LOMB 01/05/2022 [id number] / [id number] / Lens Intraoc 21.0 - [id number] - [id number] Implanted:Qty : 1 on 07/20/2017 by Luis Eduardo Cole MD at OR [facility] Right: Eye [employer] LOMB 01/05/2022 [id number] / [id number] / Syringe Prolaryn Del 1.0cc - [id number] Implanted:Qty : 1 on 11/20/2019 by Amber Jain MD at OR [facility] Right: Mouth [employer] 10/21/2021 [id number] / / [id number] Implant Silastic 7 Silicone Sw - [id number] Implanted:Qty : 1 on 05/28/2020 by Farhat Pate MD at OR [facility] Right: Throat Desti [id number] / / documented as of this [...] the patient have Health Care Power of Assistant Foreman? No Code Status History Code Status Date [...] were consensually agreed upon. Care Teams Senior Analytical Chemist Relationship Specialty Start Date End Date Ivonne French PA-C [address] [place] [address] PCP - General Physician Claim Service Representative 07/24/21 documented as of this encounter
--- OUTSIDE RECORDS SUMMARY | 2024-01-29 21:25 | External Medical Summary ---
Author Name Unknown Address Unknown Organization K1F:LABORATORY [facility] - [address] [place] [place] [address] Laboratory Report Ordering Provider Test Date Status BRADLY BERMAN 01/07/2024 11:27:17 Final Observation Date Value Abnormality Reference (Units ) Status SYNC LEUKOCYTES IN BLOOD BY AUTOMATED COUNT 01/07/2024 11:27:17 0.70 Below lower panic limits 4.00-10.80 (K/uL) Final Lymphocytes/100 leukocytes in Blood by Manual count 01/07/2024 11:27:17 99.0 Above high normal 18.0-42.0 (%) Final Monocytes/100 leukocytes in Blood by Manual count 01/07/2024 11:27:17 1.0 1.0-11.0 (%) Final Lymphocytes [#/volume] in Blood by Manual count 01/07/2024 11:27:17 0.69 Below low normal 1.00-4.80 (K/uL) Final Monocytes [#/volume] in Blood by Manual count 01/07/2024 11:27:17 0.01 0.00-1.10 (K/uL) Final Performing Location LABORATORY [facility] - 400 [facility] [place] [place] [address]
--- OUTSIDE RECORDS SUMMARY | 2024-01-29 21:25 | External Medical Summary ---
Author Name Unknown Address Unknown Organization K1F:LABORATORY [facility] - [address] [place] [address] Laboratory Report Ordering Provider Test Date Status BRADLY BERMAN 01/07/2024 11:27:17 Final Observation Date Value Abnormality Reference (Units ) Status WBC, Total 01/07/2024 11:27:17 0.70 Below lower panic limits 4.00-10.80 (K/uL) Final RBC 01/07/2024 11:27:17 2.33 3.85-5.15 (M/uL) Final Hemoglobin 01/07/2024 11:27:17 6.9 Below low normal 12.0-15.3 (g/dL) Final HCT 01/07/2024 11:27:17 20.4 Below low normal 36.0-45.2 (%) Final MCV 01/07/2024 11:27:17 87.6 81.5-97.5 (fL) Final MCH 01/07/2024 11:27:17 29.6 27.0-34.0 (pg) Final MCHC 01/07/2024 11:27:17 33.8 32.0-36.0 (g/dL) Final RDW 01/07/2024 11:27:17 13.7 11.5-15.5 (%) Final Platelets 01/07/2024 11:27:17 36 Below low normal 140-400 (K/uL) Final MPV 01/07/2024 11:27:17 10.7 6.6-11.1 (fL) Final Nucleated erythrocytes/100 leukocytes [Ratio] in Blood by Automated count 01/07/2024 11:27:17 0 <=0 (/100 WBCs) Final Performing Location [facility] - [address] [place] [address]
--- OUTSIDE RECORDS SUMMARY | 2024-01-29 21:25 | External Medical Summary ---
Author Name Unknown Address Unknown Organization K1F:[facility] - [address] [place] [address] Laboratory Report Ordering Provider Test Date Status PHILLIP SERNA 01/07/2024 11:26:08 Final Observation Date Value Abnormality Reference (Units ) Status Phosphate 01/07/2024 11:26:08 3.7 2.5-4.8 (m g/dL) Final Performing Location [facility] - [address] [place] [address]
--- OUTSIDE RECORDS SUMMARY | 2024-01-29 21:25 | External Medical Summary | Summary of Care ---
Author Name Unknown Organization [facility] Address [address] [place] [address] Phone [phone] Care Team Providers Care Well Logging Operator Mud Analysis Name Role Phone Ivonne French PA-C Primary Care Provider [phone] Reason for Visit * Reason Onset Date Comments Appointment 01/06/2024 Encounter Details Date Type Department Care Team (Late st Contact Info) Description 01/06/2024 Telephone Hematology/Oncology Treatment, [place] [address] [place] [address] Ortega Vered MD [address] [place] [address] Appointment Allergies Active Allergy Reactions [...] E11.9 1 Kit 0 05/25/2023 Active Pen Lincoln 32G X 4 MM Use as directed. [...] Hour (toPROL XL)Indications:Craig nary artery disease involving [place] coronary artery of [place] heart without angina pectoris Take 2 Tablets [...] Strip 5 12/28/2023 Active OneTouch Delica Plus [id number] Use as directed. Use when checking blood [...] EST Patient currently seeing Dr Verde at [facility]. Needs repeat BMBx next week. Requesting [...] Description 01/07/2024 10:00 AM EST Office Visit [facility] [address] [facility], [place] [address] Ivonne Frecnh PA-C [address] [place] [facility] [place] [facility] [address] 01/07/2024 11:30 AM EST Laboratory Laboratory, [address] [phone] [facility], Lab [address] [place] [address] 01/07/2024 12:30 PM EST Hem/Onc Treatment Hematology/Oncology Treatment, [address] [address] [facility], [facility] Hem Onc [address] [place] [address] 01/10/2024 10:30 AM EST Laboratory Laboratory, [address] [phone] [facility], Lab [address] [place] [address] 01/10/2024 11:30 AM EST Telemedicine Hematology/Oncology , [address] [address] Ortega Verde MD [address] [place] [address] Cart, Telemed [facility] Hem Onc Clinic [address] [place], [place] [address] [address] 01/10/2024 12:00 PM EST Hem/Onc Treatment Hematology/Oncology Treatment, [address] [address] [facility], Chair9 Hem Onc [address] [place] [address] 01/10/2024 12:00 PM EST Laboratory Laboratory Hem/Onc [facility], [place] [address] [place] [address] [place], [place] [address] [place] [address] 01/10/2024 12:30 PM EST Office Visit Palliative Medicine, [address] [address] Nati Easley PA-C [address] [place] [address] 01/10/2024 1:00 PM EST Office Visit Hematology Oncology [facility], [place] [address] [place] [address] Cassandra Garcia CRNP [address] [place] [address] Leonie Ordaz PA-C [address] [place] [address] 01/14/2024 11:30 AM EST Laboratory Laboratory, [address] [phone] [facility], Lab [address] [place] [address] 01/14/2024 12:30 PM EST Hem/Onc Treatment Hematology/Oncology Treatment, [facility] [address] [place] [address] [facility], Chair10 Hem Onc [address] [place] [address] 01/17/2024 10:00 AM EDT Hospital Encounter OR [facility], Operating Room, [facility] - 4th Floor [address] [place] [address] [facility], In And Out Surgery [address] [place] [address] 01/17/2024 10:00 AM EDT Appointment Radiology, [facility] [address] [place] [address] 01/17/2024 10:00 AM EDT - 01/17/2024 11:00 AM EDT Surgery OR [facility], Operating Room, [facility] - 4th Floor [address] [place] [address] [facility], In And Out Surgery [address] [place] [address] PRE / POST CARE 01/26/2024 9:00 AM EDT Office Visit Pharmacy, [facility] [address] [facility] [place] [address] [place] [address] [place] [address] 01/31/2024 9:00 AM EDT Imaging Radiology [facility] 1st [facility] [address] [facility] [place] [address] 02/10/2024 11:40 AM EDT Office Visit [facility] [address] [facility] [phone] Ivonne French PA-C [address] [facility] [address] 05/10/2024 8:15 AM EDT Office Visit Ophthalmology, [address] [place] [address] Migel Ramires MD [address] [facility] [address] [place] [address] Scheduled Procedures Name Priority Associated Diagnoses Date/Ti [...] this encounter Medical Devices Implanted Type Area Dog Pound Attendant Device Identifier Shelf Expiration Date Model / Serial / Lot Lens Intraoc 21.0 - [id number] - [id number] Implanted:Qty : 1 on 07/06/2017 by Luis Eduardo Cole MD at OR [facility] Left: Eye [employer] 01/05/2022 [id number] / [id number] / Lens Intraoc 21.0 - [id number] - [id number] Implanted:Qty : 1 on 07/20/2017 by Luis Eduardo Cole MD at OR [facility] Right: Eye [employer]OM[employer] 01/05/2022 [id number] / [id number] / Syringe Prolaryn Del 1.0cc - [id number] Implanted:Qty : 1 on 11/20/2019 by Amber Jain MD at OR [facility] Right: Mouth [employer] 10/21/2021 [id number] / / [id number] Implant Silastic 7 Silicone Sw - [id number] Implanted:Qty : 1 on 05/28/2020 by Farhat Pate MD at OR [facility] Right: Throat [employer] [id number] / / documented as of this [...] the patient have Health Care Power of Production Floater? No Code Status History Code Status Date [...] and were consensually agreed upon. Care Teams Well Logging Operator Mud Analysis Relationship Specialty Start Date End Date Ivonne French PA-C [address] [place] [address] PCP - General Physician Ekg Monitor Tech 07/24/21 documented as of this encounter
--- OUTSIDE RECORDS SUMMARY | 2024-01-29 21:25 | External Medical Summary ---
Author Name Unknown Address Unknown Organization K1F:LABORATORY [facility] - [address] [place] [address] Laboratory Report Ordering Provider Test Date Status PHILLIP SERNA 01/07/2024 11:26:08 Final Observation Date Value Abnormality Reference (Units ) Status Calcium.ionized [Moles/volume] in Serum or Plasma by Ion-selective membrane electrode (ISE) 01/07/2024 11:26:08 1.03 Below low normal 1.13-1.32 (mmol/L) Final This test was developed and its performance characteristics dtermined by [employer]. It has not been cleared or approved by the [place] Food and Drug Administration Performing Location [facility] - [address] [place] [address]
--- OUTSIDE RECORDS SUMMARY | 2024-01-29 21:25 | External Medical Summary | Summary of Care ---
Author Name Unknown Organization [facility] Address [address] [place] [address] Phone [phone] Care Team Providers Care Industrial Maintenance Manager Name Role Phone Ivonne French PA-C Primary Care Provider [phone] Reason for Visit * Reason Onset Date Comments Scheduling 01/05/2024 BMB Encounter Details Date Type Department Care Team (Late st Contact Info) Description 01/05/2024 Telephone Hematology/Oncology Treatment, [facility] [address] [place] [address] Ortega Vedre MD [address] [place] [address] Scheduling (BMB) Allergies Active Allergy Reactions Criticality Noted Date [...] E11.9 1 Kit 0 05/25/2023 Active Pen Irving 32G X 4 MM Use as directed. 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 Wanted to check with [facility] first. [facility] nurses contacted - verbalized Dr. Rice willing to do BMB 01/11 at 0845. Patient agreeable to thisand aware of the changes to her scheduled appointments. No further questions voiced at this time. * Telephone Encounter - Reyna Lowery OSA - 01/05/2024 1:53 PM EST Pt called states she had a vm from hem/onc but not sure who had left the message. * Telephone Encounter - Terrie Baires RN - 01/05/2024 12:30 PM EST Spoke with patient at her appointment today, 01/05/24 regarding her bone marrow biopsy that is scheduled for 01/17/24. Aware the provider wants to have this done sooner. There are no available appointments in [place] to complete this sooner. Did ask if she would be willing to travel to [place] to get this done if they have an appointment available and the patient verbalized she was. Staff message sent to Amara Waters to see if this can be coordinated. documented in this encounter Plan of Treatment Upcoming Encounters Date Type Department Care Team (Late st Contact Info) Description 01/07/2024 10:00 AM EST Office Visit [facility] [address] [place] [phone] Ivonne French PA-C [address] [place] [address] 01/07/2024 11:30 AM EST Laboratory Laboratory, [address] [address] [facility], Lab [address] [place], [place] [address] [address] 01/07/2024 12:30 PM EST Hem/Onc Treatment Hematology/Oncology Treatment, [address] [place] [address] [facility], Chair Hem Onc [address] [place], [place] [address] [address] 01/10/2024 10:30 AM EST Laboratory Laboratory, [address] [phone] [facility], Lab [address] [place] [address] 01/10/2024 11:30 AM EST Telemedicine Hematology/Oncology , [address] [address] Ortega Verde MD [address] [place] [address] Shayla, Telemed [facility] Hem Onc Clinic [address] [place] [address] 01/10/2024 12:00 PM EST Hem/Onc Treatment Hematology/Oncology Treatment, [address] [address] [facility], Chair9 Hem Onc [address] [place] [address] 01/10/2024 12:30 PM EST Office Visit Palliative Medicine, [address] [place] [address] Nati Easley PAHanyC [address] [place] [address] 01/14/2024 11:30 AM EST Laboratory Laboratory, [address] [place] [phone] [facility], Lab [address] [place] [address] 01/14/2024 12:30 PM EST Hem/Onc Treatment Hematology/Oncology Treatment, [facility] [address] [place] [address] [facility], Chair10 Hem Onc [address] [place] [address] 01/17/2024 10:00 AM EDT Hospital Encounter OR [facility], Operating Room, [facility] - 4th Floor [address] [place] [address] [facility], In And Out Surgery [address] [place] [address] 01/17/2024 10:00 AM EDT - 01/17/2024 11:00 AM EDT Surgery OR [facility], Operating Room, [facility] - 4th Floor [address] [address] [facility], In And Out Surgery [address] [place] [address] PRE / POST CARE 01/26/2024 9:00 AM EDT Office Visit Pharmacy, [facility] [address] [facility] [place] [address] [facility] [address] [facility] [place] [address] 01/31/2024 9:00 AM EDT Imaging Radiology [address] [place] [address] 02/10/2024 11:40 AM EDT Office Visit [facility] [address] [facility] [phone] Ivonne French PA-C [address] [place] [address] 05/10/2024 8:15 AM EDT Office Visit Ophthalmology, [place] [address] [place] [address] Migel Ramires MD [address] [place] [address] Scheduled Procedures Name Priority Associated Diagnoses Date/Ti [...] this encounter Medical Devices Implanted Type Area Clean Up Person Device Identifier Shelf Expiration Date Model / Serial / Lot Lens Intraoc 21.0 - [id number] - [id number] Implanted:Qty : 1 on 07/06/2017 by Luis Eduardo Cole MD at OR [facility] Left: Eye [employer] 01/05/2022 [id number] / [id number] / Lens Intraoc 21.0 - [id number] - [id number] Implanted:Qty : 1 on 07/20/2017 by Luis Eduardo Cole MD at OR [facility] Right: Eye [employer] 01/05/2022 [id number] / [id number] / Syringe Prolaryn Del 1.0cc - [id number] Implanted:Qty : 1 on 11/20/2019 by Amber Jain MD at OR [facility] Right: Mouth [employer] 10/21/2021 [id number] / / [id number] Implant Silastic 7 Silicone Sw - [id number] Implanted:Qty : 1 on 05/28/2020 by Farhat Pate MD at OR [facility] Right: Throat [employer] [id number] / / documented as of this encounter Visit Diagnoses Diagnosis 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sion (HCC)- Primary 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sion [...] the patient have Health Care Power of School Clerk? No Code Status History Code Status [...] and were consensually agreed upon. Care Teams Industrial Maintenance Manager Relationship Specialty Start Date End Date Ivonne French PA-C [address] [place] [address] PCP - General Physician Assembler Clip On Sunglasses 07/24/21 documented as of this encounter
--- OUTSIDE RECORDS SUMMARY | 2024-01-29 21:25 | External Medical Summary ---
Author Name Unknown Address Unknown Organization K01:LABORATORY [facility] - [address] [place] [address] Laboratory Report Ordering Provider Test Date Status PHILLIP SERNA 01/07/2024 11:26:08 Final Deficient: <20 ng/mL
Ins ufficient: 20-29 ng/mL
Recommended/Optimum:30-50 ng/mL

Vitamin D intoxication is rare. If suspicious of Vitamin D toxicity, evaluation of serum Calcium and PTH is recommended. Observation Date Value Abnormality Reference (Units ) Status 25-OH Vitamin D total 01/07/2024 11:26:08 27 >19 (ng/mL) Final Performing Location LABORATORY [facility] - [address] [place] [address]
--- OUTSIDE RECORDS SUMMARY | 2024-01-29 21:25 | External Medical Summary | Summary of Care ---
Author Name Unknown Organization [facility] Address [address] [place] [address] Phone [phone] Care Team Providers Care Cook Candy Name Role Phone Ivonne French PA-C Primary Care Provider [phone] Reason for Visit * Reason Comments Follow Up 4 month return Encounter Details Date Type Department Care Team (Late st Contact Info) Description 01/07/2024 10:00 AM EST Office Visit [facility] [address] [place] [address] Ivonne French PA-C [address] [place] [address] Major depressive disorder, single episode, mild (HCC)*; DM type 2 causing neurological disease (HCC); EBONY (acute kidney injury) (HCC); 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sion [...] E11.9 1 Kit 0 05/25/2023 Active Pen Pitman 32G X 4 MM Use as directed. [...] Hour (toPROL XL)Indications:Craig nary artery disease involving aniak coronary artery of aniak heart without angina pectoris Take 2 Tablets [...] per day 200 Strip 5 12/28/2023 Active On The BillTouch Delica Plus [id number] Use as directed. Use when checking blood [...] Sign Reading Time Taken Comments Blood Pressure 116/58 01/07/2024 9:59 AM EST Pulse 82 01/07/2024 9:59 AM EST Temperature 36.3 C (97.3 F) 01/07/2024 9:59 AM ES T Respiratory Rate 16 01/07/2024 9:59 AM EST Oxygen Saturation 96% 01/07/2024 9:59 AM EST Inhaled Oxygen Concentration - - Weight 88.5 kg (195 lb) 01/07/2024 9:59 AM EST Height 172.7 cm (5' 8") 01/07/2024 9:59 AM EST Body Mass Index 29.65 01/07/2024 9:59 AM EST documented in this [...] as of this encounter Progress Notes * Ivonne French PA-C - 01/07/2024 10:02 AM EST Images from the original note were not included. History of Present Illness Juany Resendez is a 58 year old female that presents for Follow Up (4 month return ) Here for reg return At her last appointment, she was in for preop Cbc was abnormal Eventual labs showed AML Had hospital course for induction therapy Has seen cardiology and heme onc. She reports she is not doing well Feels tired. She has not really had time to process Sugar has been great Things taste funny to her Metallic taste . Toe amputation is on hold. Physical Exam Vitals: 01/07/24 0959 Temp: 36.3 C (97.3 F) Pulse: 82 Resp: 16 SpO2: 96% BP: 116/58 BMI: 29.66 BP Readings from Last 3 Encounters: 01/07/24 116/58 01/05/24 98/46 01/05/24 114/54 Wt Readings from Last 3 Encounters: 01/07/24 88.5 kg (195 lb) 01/05/24 89 kg (196 lb 1.6 oz) 01/05/24 88 kg (194 lb) BMI Readings from Last 3 Encounters: 01/07/24 29.65 kg/m 01/05/24 29.82 kg/m 01/05/24 29.50 kg/m Ht Readings from Last 3 Encounters: 01/07/24 1.727 m (5' 8") 11/24/23 1.727 m (5' 8") 11/23/23 1.727 m (5' 7.99") General: alert, healthy, and no distress Head: Normocephalic, No masses, lesions, tenderness or abnormalities Extremities: less than 2 second capillary refill, no joint deformities, effusion, or inflammation Skin: skin color, texture, turgor are normal, no rashes or significant lesions Assessment and Plan Major depressive disorder, single episode, mild (HCC) (Primary) - sees psych, encouraged to reach out DM type 2 causing neurological disease (HCC) Hemoglobin AIC Results: EBONY (acute kidney injury) (HCC) - repeat bmp normalized 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sion (HCC) Sees heme onc Wrap-Up Time: I spent a total of 20-29 minutes (exact time 29 mins) on the date of service in preparation, delivery, and documentation of the care provided to Juany Resendez excluding any time spent in the performance of separately billed services. Ivonne French PA-C 01/07/2024 10:20 AM documented in this encounter Nursing Notes * Iman Rapp CCMA - 01/07/2024 9:59 AM EST Juany Resendez is a 58 year old female who presents today for Chief Complaint Patient presents with Follow Up 4 month return documented in this encounter Plan of Treatment Upcoming Encounters Date Type Department Care Team (Late st Contact Info) Description 01/07/2024 11:30 AM EST Laboratory Laboratory, [address] [place] [phone] [facility], Lab [address] [facility] [address] 01/07/2024 12:30 PM EST Hem/Onc Treatment Hematology/Oncology Treatment, [address] [facility] [place] [address] [facility], Chair4 Hem Onc [address] [place], [place] [address] [address] 01/10/2024 10:30 AM EST Laboratory Laboratory, [address] [place] [phone] [facility], Lab [address] [place] [address] 01/10/2024 11:30 AM EST Telemedicine Hematology/Oncology , [address] [address] Ortega Verde MD [address] [place] [address] Cart, Telemed [facility] Hem Onc Clinic [address] [place] [address] 01/10/2024 12:00 PM EST Hem/Onc Treatment Hematology/Oncology Treatment, [address] [address] [facility], Chair9 Hem Onc [address] [place] [address] 01/10/2024 12:30 PM EST Office Visit Palliative Medicine, [address] 5th [place] [address] Nati Easley, PA-C [address] [place] [address] 01/12/2024 8:10 AM EST Laboratory Laboratory [facility] [place] [address] [place], [place] [phone] [facility] [place], [address] Scenery [address] [place], [place] [address] 01/12/2024 8:45 AM EST Office Visit Hematology/Oncology [facility] [address] [place] [address] [place] [phone] Shon Rice MD [address] [place] [address] 01/14/2024 11:30 AM EST Laboratory Laboratory, [facility] [address] [place] [address] [facility], Lab 400 [facility] [place] [address] 01/14/2024 12:30 PM EST Hem/Onc Treatment Hematology/Oncology Treatment, [facility] [address] [facility] [place] [address] [facility], Chair10 Hem Onc [address] [place], [place] [address] [address] 01/17/2024 10:00 AM EDT Hospital Encounter OR [facility], Operating Room, [facility] - 4th Floor [address] [place] [address] [facility], In And Out Surgery [address] [place] [address] 01/17/2024 10:00 AM EDT - 01/17/2024 11:00 AM EDT Surgery OR [facility], Operating Room, [facility] - 4th Floor [address] [place] [address] [facility], In And Out Surgery [address] [place] [address] PRE / POST CARE 01/26/2024 9:00 AM EDT Office Visit Pharmacy, [facility] [address] [place] [address] [facility] [address] [place] [address] 01/31/2024 9:00 AM EDT Imaging Radiology [facility] [address] [facility] [address] [place] [address] 02/10/2024 11:40 AM EDT [address] [phone] Ivonne French PA-C [address] [facility], [place] [address] 03/14/2024 10:00 AM EDT Office Visit [facility], [place] [address] [place] [facility] [address] Ivonne French PA-C [address] [facility], [place] [address] 04/18/2024 10:00 AM EDT Office Visit [place] [address] [facility], [place] [address] Ivonne French PA-C [address] [facility], [place] [address] 05/10/2024 8:15 AM EDT Office Visit Ophthalmology, [place] [address] [place] [address] Migel Ramires MD [address] [place] [address] 05/16/2024 10:00 AM EDT Office Visit [place] [address] [address] [facility], [place] [address] Ivonne French PA-C [address] [facility], [place] [phone] Scheduled Procedures Name Priority Associated Diagnoses Date/Ti [...] this encounter Medical Devices Implanted Type Area Tile Grader Device Identifier Shelf Expiration Date Model / Serial / Lot Lens Intraoc 21.0 - [id number] - [id number] Implanted:Qty : 1 on 07/06/2017 by Luis Eduardo Cole MD at OR [facility] Left: Eye BAUSCH & LOMB 01/05/2022 [id number] / [id number] / Lens Intraoc 21.0 - [id number] - [id number] Implanted:Qty : 1 on 07/20/2017 by Luis Eduardo Cole MD at OR [facility] Right: Eye BAUSCH & LOMB 01/05/2022 [id number] / [id number] / Syringe Prolaryn Del 1.0cc - [id number] Implanted:Qty : 1 on 11/20/2019 by Amber Jain MD at [place] [facility] Right: Mouth [employer] 10/21/2021 [id number] / / [id number] Implant Silastic 7 Silicone Sw - [id number] Implanted:Qty : 1 on 05/28/2020 by Farhat Pate MD at [place] [facility] Right: Throat earthmine [id number] / / documented as of this encounter Visit Diagnoses Diagnosis Major depressive disorder, single episode, mild (HCC)- Primary Major depressive disorder, single episode, mild DM type 2 causing neurological disease (HCC) Type II or unspecified type diabetes mellitus with neurological manifestations, not stated as uncontrolled EBONY (acute kidney injury) (HCC) Acute kidney failure, unspecified 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sion (HCC) 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sion [...] the patient have Health Care Power of Senior Controls Technician? No Code Status History Code Status [...] and were consensually agreed upon. Care Teams Cook Candy Relationship Specialty Start Date End Date Ivonne French PA-C [address] [address] PCP - General Physician Drop Wire Aliner 07/24/21 documented as of this encounter
--- OUTSIDE RECORDS SUMMARY | 2024-01-29 21:25 | External Medical Summary ---
Author Name Unknown Address Unknown Organization K1F:LABORATORY [facility] - [address] [place] [address] Laboratory Report Ordering Provider Test Date Status DIEGO BERMANAPPLE 01/07/2024 11:27:20 Final Observation Date Value Abnormality Reference (Units ) Status ABO 01/07/2024 11:27:20 O Final RH 01/07/2024 11:27:20 Positive Final RED BLOOD CELL ANTIBODY SCREEN 01/07/2024 11:27:20 Negative Final SPECIMEN EXPIRATION DATE 01/07/2024 11:27:20 01/10/2024 23:59 Final Performing Location LABORATORY [facility] - [address] [place] [address]
--- OUTSIDE RECORDS SUMMARY | 2024-01-29 21:25 | External Medical Summary | Summary of Care ---
Author Name Unknown Organization [facility] Address [address] [place] [address] Phone [phone] Care Team Providers Care Academic Support Specialist Name Role Phone Ivonne French PA-C Primary Care Provider [phone] Reason for Visit * Reason Onset Date Comments Appointment 01/06/2024 Encounter Details Date Type Department Care Team (Late st Contact Info) Description 01/06/2024 Telephone Hematology/Oncology Treatment, [place] [address] [place] [address] Ortega Verde MD [address] [place] [address] Appointment Allergies Active Allergy Reactions [...] E11.9 1 Kit 0 05/25/2023 Active Pen Kimberly 32G X 4 MM Use as directed. [...] Strip 5 12/28/2023 Active OneTouch Delica Plus Uyafpo81W Use as directed. Use when checking blood [...] EST Patient currently seeing Dr Verde at [facility]. Needs repeat BMBx next week. Requesting [...] Description 01/07/2024 10:00 AM EST Office Visit [facility] [address] [facility], [place] [address] Ivonne French PA-C [address] [place] [address] 01/07/2024 11:30 AM EST Laboratory Laboratory, [address] [phone] [facility], Lab [address] [place] [address] 01/07/2024 12:30 PM EST Hem/Onc Treatment Hematology/Oncology Treatment, [address] [address] [facility], [facility] Hem Onc [address] [place] [address] 01/10/2024 10:30 AM EST Laboratory Laboratory, [address] [phone] [facility], Lab [address] [place] [address] 01/10/2024 11:30 AM EST Telemedicine Hematology/Oncology , [address] [address] Ortega Verde MD [address] [place] [address] Cart, Telemed [facility] Hem Onc Clinic [address] [place], [place] [address] [address] 01/10/2024 12:00 PM EST Hem/Onc Treatment Hematology/Oncology Treatment, [address] [address] [facility], Chair9 Hem Onc [address] [place] [address] 01/10/2024 12:30 PM EST Office Visit Palliative Medicine, [address] [place] [address] Nati Easley PA-Antoni [address] [place] [address] 01/12/2024 8:10 AM EST Laboratory Laboratory [facility] [address] [place] [phone] [place] [address] 01/12/2024 8:45 AM EST Office Visit Hematology/Oncology [facility] [address] [place], [place] [phone] Shon Rice MD [address] [place] [address] 01/14/2024 11:30 AM EST Laboratory Laboratory, [address], [place] [address] [facility], Lab [address] [place] [address] 01/14/2024 12:30 PM EST Hem/Onc Treatment Hematology/Oncology Treatment, [address], [place] [address] [facility], Chair10 Hem Onc [address] [place] [address], [place] [address] 01/17/2024 10:00 AM EDT Hospital Encounter OR [facility], Operating Room, [facility] - 4th Floor [address] [place] [address] [facility], In And Out Surgery [address] [place] [address] 01/17/2024 10:00 AM EDT - 01/17/2024 11:00 AM EDT Surgery OR [facility], Operating Room, [facility] - 4th Floor [address] [place] [address] [facility], In And Out Surgery [address] [place] [address] PRE / POST CARE 01/26/2024 9:00 AM EDT Office Visit Pharmacy, [facility] [address] [facility] [place] [address] [facility] [place] [address] 01/31/2024 9:00 AM EDT Imaging Radiology [address] [place] [address] 02/10/2024 11:40 AM EDT Office Visit [facility] [address] [place] [address] Ivonne French PA-C [address] [place] [address] 05/10/2024 8:15 AM EDT Office Visit Ophthalmology, [place] [address] [place] [address] Migel Ramires MD [address] [place] [address] Scheduled Procedures Name Priority Associated Diagnoses Date/Ti [...] this encounter Medical Devices Implanted Type Area Stencil Maker Device Identifier Shelf Expiration Date Model / Serial / Lot Lens Intraoc 21.0 - [id number] - [id number] Implanted:Qty : 1 on 07/06/2017 by Luis Eduardo Cole MD at OR [facility] Left: Eye BAUSCH & LOMB 01/05/2022 [id number] / [id number] / Lens Intraoc 21.0 - [id number] - [id number] Implanted:Qty : 1 on 07/20/2017 by Luis Eduardo Cole MD at OR [facility] Right: Eye BAUSCH & LOMB 01/05/2022 [id number] / [id number] / Syringe Prolaryn Del 1.0cc - [id number] Implanted:Qty : 1 on 11/20/2019 by Amber Jain MD [place] [facility] [place]: Mouth [employer] 10/21/2021 [id number] / / [id number] Implant Silastic 7 Silicone Sw - [id number] Implanted:Qty : 1 on 05/28/2020 by Farhat Pate MD [place] [facility] [place]: Throat LocalSense [id number] / / documented as of this [...] the patient have Health Care Power of Plant Anatomy Teacher? No Code Status History Code Status [...] and were consensually agreed upon. Care Teams Academic Support Specialist Relationship Specialty Start Date End Date Ivonne French PA-C [address] [place] [address] PCP - General Physician Bundle Breaker 07/24/21 documented as of this encounter
--- OUTSIDE RECORDS SUMMARY | 2024-01-29 21:25 | External Medical Summary | Summary of Care ---
Author Name Unknown Organization [facility] Address [address] [place] [address] Phone [phone] Care Team Providers Care Copywriter Name Role Phone Ivonne French PA-C Primary Care Provider [phone] Reason for Visit * Reason Comments Follow Up Encounter Details Date Type Department Care Team (Late st Contact Info) Description 01/05/2024 8:30 AM EST Office Visit Cardiology, [facility] [address] [facility] [place] [address] Christian Cardenas PA-C [address] [place] [address] Precordial chest pain*; 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sion (HCC); Hypervolemia, unspecified hypervolemia type; Coronary artery disease involving prairie band coronary artery of prairie band heart, unspecified whether angina present; HTN, goal below 130/80; Dyslipidemia, goal LDL below 70 Allergies Active Allergy Reactions Criticality Noted Date Comments Adhesive Tape 04/21/2016 Glue off the old style medical tape. documented as of this encounter (statuses as of 01/05/2024) Medications Medication Sig Dispensed Refills Start Date [...] E11.9 1 Kit 0 05/25/2023 Active Pen [place] 32G X 4 MM Use as directed. Use to inject insulin 4 times daily 100 Each 5 05/25/2023 Active Triamcinolone Acetonide 0.1 % External Ointment (Aristocort)Indic ations:Contact dermatitis, unspecified contact dermatitis type, unspecified trigger [...] 1 09/03/2023 Active Magnesium 400 MG Oral TabletIndications :Restless legs syndrome Take 1 Tablet by mouth at bedtime. 90 Tablet 1 09/03/2023 Active Mounjaro 10 MG/0.5ML Subcutaneous Solution Pen-injector (Tirzepatide) Inject 10 mg under the skin once a week. 6 mL 1 09/09/2023 4 Active Linzess 72 MCG Oral Capsule (linaCLOtide)Lety cations:Drug-marian isael constipation Take 1 Capsule by mouth daily [...] 11/19/2023 Active Allopurinol 300 MG Oral Tablet (Zyloprim)Indicat ions: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sion (HCC) Take 1 Tablet by mouth in the morning. 30 Tablet 2 11/23/2023 Active Insulin Glargine Solostar 100 UNIT/ML Subcutaneous Solution Pen-injector (Lantus SoloStar) Inject 25 Units under the skin at bedtime. 45 mL 3 12/28/2023 Active Metoprolol Succinate ER 25 MG Oral Tablet Extended Release 24 Hour (toPROL XL)Indications:Co ronary artery disease involving prairie band coronary artery of prairie band heart without angina pectoris Take 2 Tablets [...] 200 Strip 12/28/2023 Active OneTouch Delica Plus [id number] Use as directed. Use when checking blood [...] units 21 mL 12/28/2023 Active Magic Swizzle (Lidocaine-Benadr yl-Maalox) oral solutionIndicatio ns: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sion (HCC),Hypervolemi a, unspecified hypervolemia type Swish and spit 15 mL in the morning and 15 mL at noon and 15 mL before bedtime. 300 mL 01/04/2024 Active Furosemide 40 MG Oral Tablet (Lasix)Indication s: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sion (HCC),Hypervolemi a, unspecified hypervolemia type Take 1 Tablet by mouth in the morning. 31 Tablet 01/05/2024 Active Potassium Chloride ER 20 MEQ Oral Tablet Extended Release Take 1 Tablet by mouth in the morning. 31 Tablet 01/05/2024 Active Furosemide 20 MG Oral Tablet (Lasix)Indication s: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sion (HCC),Hypervolemi a, unspecified hypervolemia type Take 1 Tablet by mouth in the morning. 90 Tablet 0 01/03/2024 4 Discontinued documented as of this encounter (statuses as of 01/05/2024) Active Problems Problem Noted Date Diagnosed Date [...] as of this encounter (statuses as of 01/05/2024) Resolved Problems Problem Noted Date Diagnosed Date [...] as of this encounter (statuses as of 01/05/2024) Immunizations Name Administration Dates Next Due COVID-19 [...] Sign Reading Time Taken Comments Blood Pressure 114/54 01/05/2024 8:16 AM EST Pulse 76 01/05/2024 8:16 AM EST Temperature - - Respiratory Rate 18 01/05/2024 8:16 AM EST Oxygen Saturation - - Inhaled Oxygen Concentration - - Weight 88 kg (194 lb) 01/05/2024 8:16 AM EST Height - - Body Mass Index 29.5 11/24/2023 5:00 PM EST documented in this encounter Functional Status [...] as of this encounter Progress Notes * Christian Cardenas PA-C - 01/05/2024 8:19 AM EST History of Present Illness: Juany Resendez is a 58 year old female here today as an add on, evaluation of chest pain. Patient with interim diagnosis of acute myeloid leukemia. Poor prognosis noted. [facility] [place] Decit[place] and Ventoclax in November 2023. Hospital course complicated. Records reviewed. "When I was down in [facility] I was having chest pain and stuff. They had to put that white pill under my tongue. I was pretty much out of it for a few days there. The day before yesterday, at night, I had chest pain again. The a/c tech down there said I need to sleep with my head higher than my heart." The patient presents today for evaluation of 4 out of 10 chest pressure under the left breast. The pains occurs randomly. When the pain occurs, it's duration is a few minutes. The discomfort radiatesdown the left arm. Associated symptoms described are shortness of breath. Precipitating factors arenot described by the patient. Factors which relieve the discomfort are breathing through the nose and out the mouth. The characteristics of the pain suggest angina leading to anxiety. + Peripheral edema since [facility]. + Four pillow orthopnea. + Shortness of breath. Just started furosemide yesterday, without increased urine output. No pleuritic chest pain. No dizziness, near syncope, or syncope. No fevers since [facility]. No epistaxis since [facility]. No hemoptysis, melena, hematochezia, or hematuria. Past Medical and Surgical History ASCVD Abnormal dobutamine stress testing led to cardiac catheterization back in December 2015 revealing branch vessel disease, diabetic coronary disease with distal narrowing of the LAD, left circumflex, and posterolateral RCA branch. Catheterization last on March 19, 2022 (obtained due to complaints of exertional chest pain, increased exertional dyspnea, reduced exercise tolerance, abnormal Lexiscan nuclear stress testing on February 18, 2022 (technically limited, positive for myocardial infarction with mild inferior jamir-infarct ischemia encompassing 5% of the total myocardium)) revealed a chronic right coronary artery occlusion with collateral filling via left anatomy, thin mid and apical left anterior descending with diffuse atherosclerosis Chronic right bundle branch block Hypertension Dyslipidemia Type 2 diabetes mellitus with retinopathy, neuropathy, gastroparesis History of thyroid cancer, postsurgical hypothyroidism Cervical radiculopathy status post anterior cervical disc fusion Major depression Generalized anxiety Obesity Cholecystectomy Cataract extraction Colonoscopy with polypectomy 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 Herpes simplex type 1 antibody positive B00.9 Compulsive eating patterns F50.9 NBA (generalized anxiety disorder) F41.1 Herpes simplex virus infection B00.9 Diabetic retinopathy associated with diabetes mellitus due to underlying condition ([facility]) E08.319 Vocal fold paralysis, 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 Major depressive disorder, single episode, mild ([facility]) F32.0 Diabetic polyneuropathy associated with type 2 diabetes mellitus (HCC) E11.42 Gastroesophageal reflux disease K21.9 HNP (herniated nucleus pulposus), cervical M50.20 Hyperlipidemia E78.5 Hyperthyroidism E05.90 S/P foot surgery, right Z98.890 Toe amputee ([facility]) Z89.429 MEDICATION USE AGREEMENT [id number] Varicose veins of both lower extremities I83.93 Osteomyelitis of great toe of left foot ([facility]) M86.9 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sion ([facility]) C92.00 DM type 2 causing neurological disease (HCC) E11.49 ASCVD (arteriosclerotic cardiovascular disease) I25.10 Febrile neutropenia ([facility]) D70.9, R50.81 Pyogenic inflammation of bone (HCC) M86.9 Encounter for antineoplastic chemotherapy Z51.11 Hyperkalemia E87.5 Hyperphosphatemia E83.39 Precordial pain R07.2 Thrombocytopenia (HCC) D69.6 Coronary artery disease I25.10 Antineoplastic chemotherapy induced pancytopenia (HCC) D61.810, T45.1X5A EBONY (acute kidney injury) (HCC) N17.9 Acute urinary retention R33.8 At high risk for fluid overload Z91.89 Acute hypoxemic respiratory failure (HCC) J96.01 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) D84.821, Z79.899 Hypokalemia E87.6 Past Medical History: Diagnosis Date Diabetic neuropathy [...] DIAGNOSTIC (RECTUM) 12/16/2016 adenomatous polyps, repeat 5 yrs/[facility] COLONOSCOPY, DIAGNOSTIC (RECTUM) 06/03/2022 diverticulosis, fair prep, repeat 5 yrs / [facility] EGD, FLEXIBLE, DIAGNOSTIC 12/16/2016 normal bx/[facility] EGD, FLEXIBLE, W/BIOPSY 07/30/2010 esophagitis, await BX LARYNGOPLASTY MEDIALIZATION UNILATERAL Right 05/28/2020 LARYNGOPLASTY, MEDIALIZATION UNILATERAL performed by Farhat Pate MD at [place] [facility] LARYNGOSCOPY, VOCAL CORD INJECTION Right 11/20/2019 LARYNGOSCOPY DIRECT INJECTION VOCAL CORD WITH MICROSCOPE performed by Amber Jain MD at [facility] MISCELLANEOUS ORDER ([facility] ONLY) Bilateral 11/24/2017 Reinheimer-bleph/levators-ou OTHER 1990's (3 times) 8 inch benign tumor removed from L femur; regrew x 3 OTHER Removal of a benign LN from L axilla REMOVAL OF THYROID GLAND 10/23/2009 total thyroidectomy 10/23/09, [facility], Dr. Vazquez REMOVE CATARACT, INSERT LENS PROSTH Right 07/20/2017 right EXTRACAPSULAR CATARACT REMOVAL WITH INTRAOCULAR LENS performed by Luis Eduardo Cole MD at OR [facility] REMOVE CATARACT, INSERT LENS PROSTH Left 07/06/2017 left EXTRACAPSULAR CATARACT REMOVAL WITH INTRAOCULAR LENS performed by Luis Eduardo Cole MD at [facility] REMOVE GALLBLADDER 2005 appox date Family History: Father with an DC at 60. Mother at 75 with ovarian cancer. Two brothers with diabetes mellitus. Two children without cardiac issues. Social History: Nonsmoker. No alcohol. No illegal drug use. . Two children. Son in the [facility]. Daughter lives in [place]. Three grandchild (daughter). Disabled. Lives alone. Complete Review of Systems is as stated above, negative, or noncontributory. Review of patient's allergies indicates: Allergen Reactions Tape [Adhesive Tape] Glue off the old style medical tape. Current Outpatient Medications Medication Sig Dispense Refill Aspirin 81 MG Tablet Take 1 Tablet by mouth in the morning. DULoxetine HCl 60 MG Oral Capsule Delayed Release Particles (Cymbalta) Take 1 Capsule by mouth in the morning. 180 Capsule 0 Levothyroxine Sodium 150 MCG Oral Tablet (Synthroid) [...] Tablet by mouth daily. 90 Tablet 3 Allopurinol 300 MG Oral Tablet (Zyloprim) [...] daily in the morning. 30 Tablet 1 NovoLOG FlexPen 100 UNIT/ML Subcutaneous Solution Pen-injector (insulin aspart) Inject under the skin as directed per the following sliding scale: less than 80 mg/dL: no insulin 81-100: 2 units 101-150: 4 units 151-190: 5 units 191 - 230: 6 units 231 - 270: 7 units 271 - 310: 8 units 311 - 350: 9 units 351 - 390: 10 units 21 mL 3 Furosemide 20 MG Oral Tablet (Lasix) Take 1 Tablet by mouth in the morning. 90 Tablet 0 Magic Swizzle (Iwsqliaka-Pamzgnbi-Dnetip) oral solution Swish and spit 15 mL in the morning and 15 mL at noon and 15 mL before bedtime. 300 mL 1 OneTouch Delica Lancets 33G Use to test blood sugar three times daily E 11.9 300 Each 5 OneTouch Verio w/Device Kit Use up to 3 times a day E11.9 1 Kit 0 Pen [place] 32G X 4 MM Use as directed. Use to inject insulin 4 times daily 100 Each 5 Triamcinolone Acetonide 0.1 % External Ointment (Aristocort) Apply topically to affected area 2 times a day. Apply to hands and feet 80 g 2 OneTouch Verio In Vitro Strip (Glucose Blood) Use up to 3 times a day E11.9 400 Strip 3 OneTouch Verio In Vitro Strip (Glucose Blood) Use when checking blood glucose levels 4 times per day 200 Strip 5 OneTouch Delica Plus [id number] Use as directed. Use when checking blood glucose levels 4 times per day 200 Each 10 BD Pen Needle Ellie U/F 32G X 4 MM (Insulin Pen Needle) Use with insulin pens to inject insulin under the skin 4 times per day 150 Each 3 No current facility-administered medications for this visit. OBJECTIVE/PHYSICAL EXAMINATION: BP 114/54 | Pulse 76 | Resp 18 | Wt 88 kg (194 lb) | LMP 09/08/2016 | BMI 29.50 kg/m | BSA 2.05 m General: Alert, no distress, comfortable and cooperative Skin: Pale Eyes: PER. Conjunctiva pink, sclera pale HENT: Normocephalic. Atraumatic. Neck: No carotid bruits. No JVD. No HJR. Heart: RRR, 70 bpm. No murmur. No rub. No gallop. Lungs: Decreased breath sounds at the bases. Faint right basilar rales. No wheeze. Abdomen: +BS. Soft. Nontender. No masses. No organomegaly. Extremities: 1+ edema. No clubbing. No cyanosis. Pulses: radial=2/4, posterior tibial=1/4. Limited neurological examination: No focal deficit. Data: December 03, 2022 TTE Interpretation Summary ([facility], Dr. Michael): Normal size left ventricle. Normal LV systolic function. Ejection fraction 55 to 60%. RV not well visualized. RV systolic function qualitatively normal. Normal left atrial size. Normal right atrial size. Grade 2 diastolic dysfunction. Mild aortic valve sclerosis without significant aortic valve stenosis. November 25, 2023 TTE Interpretation Summary ([facility], as per Dr. Quinones): The qualitative LV ejection fraction is 55-59% (normal). No LV segmental wall motion abnormalities. Image quality does not allow for measruement of global longitudinal strain. The right ventricular cavity size is normal (basal dimen nya < 4.2 cm RV apical 4 chamber view). The right ventricular systolic function is qualitatively normal. December 10, 2023 TTE Interpretation Summary ([facility], as per Dr. Quinones): The examination is adequate to evaluate the referral indication. The qualitative LV ejection fraction is 60-64% (normal). No LV segmental wall motion abnormalities. The right ventricular cavity size is normal. The right ventricular systolic function is qualitatively normal. Dilated IVC with reduced collapsability with sniff indicates an elevated right atrial pressure of 15mmHg. Mild pulmonary hypertension is present December 20, 2023 TTE Interpretation Summary ([facility], Dr. Jimenez): The examination is limited quality but adequate for evaluation of the referral indication.The apical images are are very limited. The left ventricular wall motion is normal by limited analysis. All left ventricular segments are not visualized. Probably nomal LV systolic function. Becasue not all of sanjana LV juares are seen a more quantitative assessment of the ejection fraction could not be given. The left ventricular diastolic function is mildly abnormal (grade I). Mild aortic valve regurgitation is present. Mild tricuspid regurgitation is present.Indeterminate IVC size and collapsability. Right atrial pressure estimated at 8 mmHg. EKG on December 19, 2023 revealed normal sinus rhythm at 60 bpm with a right bundle branch block. CBC yesterday notable for hemoglobin of 6.9. Platelet count 30 K. Status post transfusion of pRBC's. EKG on January 05, 2024 normal sinus rhythm at 72 bpm. Chronic right bundle branch block. ASSESSMENT: 58 year old female seen today as an add on due to chest pain, angina, leading to anxiety. Angina aggravated by significant anemia and volume overload. Patient with known CAD as detailed above. Patient high risk for cardiovascular events. RECOMMENDATIONS/PLAN: Maintain hemoglobin of at least 8 g/dL. Increase furosemide to 40 mg/day. Start potassium chloride 20 mEq/day Metabolic panel in one week Continue aspirin 81 mg/day Continue metoprolol succinate 50 mg/day Continue Isosorbide at 30 mg/day mg/day for now (consider titration to 60 mg/day) PRN Sublingual nitroglycerin provided, use and risks explained. Recommend medical management, very high risk for catheterization and intervention which would require uninterrupted dual antiplatelet therapy. Cardiology follow-up in 2 weeks or as needed. ER with emergencies. Christian Cardenas PA-C Department of Cardiology Instructions written. Benefits, use, and risks of the above explained. Medication list updated. Prescription for furosemide and potassium sent to the pharmacy of her choice electronically. I spent a total of 30-39 minutes (exact time 38 mins) on the date of service in preparation, delivery, and documentation of the care provided to Juany Resendez excluding any time spent in the performance of separately billed services. This chart was completed in part utilizing [employer] Speech Voice RecognitionSoftware. Grammatical errors, random word insertions, prounoun errors, and incomplete sentences arean occasional consequence of this system due to software limitations, ambient noise, and hardware issues. Any formal questions or concerns about the content, text, or information contained within thebody of this dictation should be directly addressed to the provider for clarification. documented in this encounter Procedure Notes * Madi Porras DO - 01/05/2024 8:25 AM ESTAssociated Order(s): EKG REASON FOR STUDY: cp;cp CONCLUSIONS: Normal sinus rhythm Right bundle branch block Abnormal ECG When compared with ECG of 19-DEC-2023 15:10, No significant change was found Ventricular Rate: 72 Atrial Rate: 72 UT Interval: 160 QRS Duration: 136 QT/QTc: 484/529 ms P-R-T [place]anger: 48 : 83 : 8 degrees documented in this encounter Nursing Notes * Laz Richmond RN - 01/05/2024 8:14 AM EST Examination Room: room 2 Name: Juany Resendez Date of : (1965). Reason for Visit: for follow up Interim Hospitalization(s): [facility] 11/14/2023-12/26/2023 Problems/Concerns: acute myeloid leukemia Chest Pain/SOB: has shortness of breath with chest pain [facility] Discussed: Not applicable [employer], a [employer] is a way you can talk to your provider online through e-mail. Would you like to sign up? I can activate it for you? YES Patient was instructed to not get up on the exam table until directed and assisted by their provider; patient is to remain seated in the chair/ wheelchair/ exam table for fall prevention and safety reasons. Patient is aware to have assistance to step down off exam table with personnel. Patient voiced full comprehension of instructions. documented in this encounter Plan of Treatment Upcoming Encounters Date Type Department Care Team (Late st Contact Info) Description 01/07/2024 10:00 AM EST Office Visit Family Practice, [place] [address] [facility], [place] [phone] Ivonne French PA-C [address] [facility] [place] [address] 01/07/2024 11:30 AM EST Laboratory Laboratory, [address] [phone] [facility], Lab [address] [place] [address] 01/07/2024 12:30 PM EST Hem/Onc Treatment Hematology/Oncology Treatment, [address] [place] [address] [facility] Hem Onc [address] [place] [address], [place] [address] 01/10/2024 10:30 AM EST Laboratory Laboratory, [address] [place] [address] [facility], Lab [address] [place] [address], [place] [address] 01/10/2024 11:30 AM EST Telemedicine Hematology/Oncology , [address] [place] [address] Ortega Verde MD [address] [place] [address] Alexandra Mcguireed [facility] Hem Onc Clinic [address] [place] [address] 01/10/2024 12:00 PM EST Hem/Onc Treatment Hematology/Oncology Treatment, [address] [address] [facility], Chair9 Hem Onc [address] [place] [address], [place] [address] 01/10/2024 12:30 PM EST Office Visit Palliative Medicine, [address], [place] [address] Nati Easley PA-Antoni [address] [place] [address] [place] [address] 01/12/2024 10:30 AM EST Laboratory Laboratory, [address], [place] [phone] [facility], Lab [address] [place] [address], [place] [address] 01/12/2024 11:30 AM EST Hem/Onc Treatment Hematology/Oncology Treatment, [address], [place] [address] [facility], Chair7 Hem Onc [address] [place] [address], [place] [address] 01/14/2024 11:30 AM EST Laboratory Laboratory, [address], [place] [address] [facility], Lab [address] [place] [address], [place] [address] 01/14/2024 12:30 PM EST Hem/Onc Treatment Hematology/Oncology Treatment, [address], [place] [address] [facility], Chair10 Hem Onc [address] [place] [address], [place] [address] 01/17/2024 10:00 AM EDT Hospital Encounter OR [facility], Operating Room, [facility] - 4th Floor [address] [place] [address] [facility], In And Out Surgery [address] [place] [address] 01/17/2024 10:00 AM EDT Appointment Radiology, [facility] [address] [place] [address] 01/17/2024 10:00 AM EDT - 01/17/2024 11:00 AM EDT Surgery OR [facility], Operating Room, [facility] - 4th Floor [address] [place] [address] [facility], In And Out Surgery [address] [place] [address] PRE / POST CARE 01/26/2024 9:00 AM EDT Office Visit Pharmacy, [facility] [address] [place] [address] [facility] [place] [address] 01/31/2024 9:00 AM EDT Imaging Radiology [facility] [facility] [address] [place] [address] 02/10/2024 11:40 AM EDT Office Visit [facility] [address] [place] [phone] Ivonne French PA-C [address] [place] [address] 05/10/2024 8:15 AM EDT Office Visit Ophthalmology, [place] [address] [place] [address] Migel Ramires MD [address] [place] [address] Scheduled Procedures Name Priority Associated Diagnoses Date/Ti [...] this encounter Medical Devices Implanted Type Area Prevocational/Rehabilitation Counselor Device Identifier Shelf Expiration Date Model / Serial / Lot Lens Intraoc 21.0 - [id number] - [id number] Implanted:Qty : 1 on 07/06/2017 by Luis Eduardo Cole MD at OR [facility] Left: Eye [employer] 01/05/2022 [id number] / [id number] / Lens Intraoc 21.0 - [id number] - [id number] Implanted:Qty : 1 on 07/20/2017 by Luis Eduardo Cole MD at OR [facility] Right: Eye [employer] 01/05/2022 [id number] / [id number] / Syringe Prolaryn Del 1.0cc - [id number] Implanted:Qty : 1 on 11/20/2019 by Amber Jain MD at [place] [facility] Right: Mouth [employer] 10/21/2021 [id number] / / [id number] Implant Silastic 7 Silicone Sw - [id number] Implanted:Qty : 1 on 05/28/2020 by Farhat Pate MD at [place] [facility] Right: Throat [id number] / / documented as of this encounter Procedures Procedure Name Priority Date/Time Associated Diagnosis Comments UT ECG ROUTINE ECG W/LEAST 12 LDS W/I&R Routine 01/05/2024 8:25 AM EST Precordial chest pain documented in this encounter Results * EKG (01/05/2024 8:25 AM EST) 01/05/2024 8:25 AM EST Narrative Procedure Note Madi Porras DO - 01/05/2024 8:25 AM EST REASON FOR STUDY: cp;cp CONCLUSIONS: Normal sinus rhythm Right bundle branch block Abnormal ECG When compared with ECG of 19-DEC-2023 15:10, No significant change was found Ventricular Rate: 72 Atrial Rate: 72 UT Interval: 160 QRS Duration: 136 QT/QTc: 484/529 ms P-R-T Granger: 48 : 83 : 8 degrees Christian Cardenas PA-C EKG [facility] documented in this encounter Visit Diagnoses Diagnosis Precordial chest pain- Primary Precordial pain 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sion (HCC) Hypervolemia, unspecified hypervolemia type Coronary artery disease involving prairie band coronary artery of prairie band heart, unspecified whether angina present HTN, goal below 130/80 Unspecified essential hypertension Dyslipidemia, goal LDL below 70 Other and unspecified hyperlipidemia 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sion [...] the patient have Health Care Power of Attending Physician? No Code Status History Code Status Date [...] and were consensually agreed upon. Care Teams Copywriter Relationship Specialty Start Date End Date Ivonne French PA-C [address] [facility] [place] [address] PCP - General Physician Coloring Room Man 07/24/21 documented as of this encounter
--- OUTSIDE RECORDS SUMMARY | 2024-01-29 21:25 | External Medical Summary | Summary of Care ---
Author Name Unknown Organization [facility] Address [address] [place] [address] Phone [phone] Care Team Providers Care Ordnance Artificer Helper Name Role Phone Ivonne French PA-C Primary Care Provider [phone] Reason for Visit * Reason Onset Date Comments Appointment 01/06/2024 Encounter Details Date Type Department Care Team (Late st Contact Info) Description 01/06/2024 Telephone Hematology/Oncology Treatment, [place] [address] [place] [address] Ortega Verde MD [address] [place] [address] Appointment Allergies Active Allergy Reactions [...] E11.9 1 Kit 0 05/25/2023 Active Pen [place] 32G X 4 MM Use as directed. 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 Use when checking blood [...] EST Patient currently seeing Dr Verde at [facility]. Needs repeat BMBx next week. Requesting [...] Description 01/07/2024 10:00 AM EST Office Visit [facility] [address] [place] [phone] Ivonne French PA-C [address] [place], [place] [phone] 01/07/2024 11:30 AM EST Laboratory Laboratory, [address] [place] [phone] [facility], Lab [address] [place] [address] 01/07/2024 12:30 PM EST Hem/Onc Treatment Hematology/Oncology Treatment, [address] [address] [facility], Chair4 Hem Onc [address] [place] [address], [place] [address] 01/10/2024 10:30 AM EST Laboratory Laboratory, [address] [place] [phone] [facility], Lab [address] [place] [address] 01/10/2024 11:30 AM EST Telemedicine Hematology/Oncology , [address] [address] Ortega Verde MD [address] [place] [address] Cart, Telemed [facility] Hem Onc Clinic [address] [place] [address] 01/10/2024 12:00 PM EST Hem/Onc Treatment Hematology/Oncology Treatment, [address] [address] [facility], Chair9 Hem Onc [address] [place] [address] 01/10/2024 12:30 PM EST Office Visit Palliative Medicine, [address] [address] Nati Easley, PA-C [address] [place] [address] 01/12/2024 8:10 AM EST Laboratory Laboratory [facility] [address] [place], [place] [phone] [place], [facility] [address] [place], [place] [address] 01/12/2024 8:45 AM EST Office Visit Hematology/Oncology [facility] Sofie [place] [address] [place], [place] [phone] Shon Rice MD [address] [place], [place] [address] 01/14/2024 11:30 AM EST Laboratory Laboratory, [address] [phone] [facility], Lab [address] [place] [address] 01/14/2024 12:30 PM EST Hem/Onc Treatment Hematology/Oncology Treatment, [facility] [address] [place] [address] [place], Chair10 Hem Onc [address] [place] [address] 01/17/2024 10:00 AM EDT Hospital Encounter OR [facility], Operating Room, [facility] - 4th Floor [address] [place] [address] [facility], In And Out Surgery [address] [place] [address] 01/17/2024 10:00 AM EDT - 01/17/2024 11:00 AM EDT Surgery OR [facility], Operating Room, [facility] Floor [address] [place] [address] [facility], In And Out Surgery [address] [place] [address] PRE / POST CARE 01/26/2024 9:00 AM EDT Office Visit Pharmacy, [facility] [address] [facility] [place] [address] [place] [address] 01/31/2024 9:00 AM EDT Imaging Radiology [facility] [address] [facility] [place] [address] 02/10/2024 11:40 AM EDT Office Visit [facility] [address] [facility] [phone] Ivonne French PA-C [address] [facility] [place] [address] 05/10/2024 8:15 AM EDT Office Visit Ophthalmology, [address] [place] [address] Migel Ramires MD [address] [place] [address] Scheduled Procedures Name Priority Associated Diagnoses Date/Ti [...] this encounter Medical Devices Implanted Type Area Linen Manager Device Identifier Shelf Expiration Date Model / Serial / Lot Lens Intraoc 21.0 - [id number] - [id number] Implanted:Qty : 1 on 07/06/2017 by Luis Eduardo Cole MD at OR [facility] Left: Eye BAUSCH & LOMB 01/05/2022 [id number] / [id number] / Lens Intraoc 21.0 - [id number] - [id number] Implanted:Qty : 1 on 07/20/2017 by Luis Eduardo Cole MD at OR [facility] Right: Eye BAUSCH & LOMB 01/05/2022 [id number] / [id number] / Syringe Prolaryn Del 1.0cc - [id number] Implanted:Qty : 1 on 11/20/2019 by Amber Jain MD [place] [facility] [place]: Mouth [employer] 10/21/2021 [id number] / / [id number] Implant Silastic 7 Silicone Sw - [id number] Implanted:Qty : 1 on 05/28/2020 by Farhat Pate MD [place] [facility] [place]: Throat Validus [id number] / / documented as of this [...] the patient have Health Care Power of Pocket Setter Lockstitch? No Code Status History Code Status Date [...] and were consensually agreed upon. Care Teams Ordnance Artificer Helper Relationship Specialty Start Date End Date Ivonne French PA-C [address] [facility] [place] [address] PCP - General Physician Remote Advisor 07/24/21 documented as of this encounter
--- OUTSIDE RECORDS SUMMARY | 2024-01-29 21:26 | External Medical Summary | Summary of Care ---
Author Name Unknown Organization [facility] Address [address] [place] [address] Phone [phone] Care Team Providers Care Plisse Machine Operator Helper Name Role Phone Ivonne French PA-C Primary Care Provider [phone] Reason for Visit * Reason Onset Date Comments Scheduling 01/05/2024 BMB Encounter Details Date Type Department Care Team (Late st Contact Info) Description 01/05/2024 Telephone Hematology/Oncology Treatment, [facility] [address] [place] [address] Ortega Verde MD [address] [place] [address] Scheduling (BMB) Allergies Active Allergy [...] E11.9 1 Kit 0 05/25/2023 Active Pen [place] 32G X 4 MM Use as directed. 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 Use when checking blood [...] Miscellaneous Notes * Telephone Encounter - Terrie Baires, RN - 01/05/2024 12:30 PM EST Spoke with patient at her appointment today, 01/05/24 regarding her bone marrow biopsy that is scheduled for 01/17/24. Aware the provider wants to have this done sooner. There are no available appointments in [place] to complete this sooner. Did ask if she would be willing to travel to [place] to get this done if they have an appointment available and the patient verbalized she was. Staff message sent to Amara Waters to see if this can be coordinated. documented in this encounter Plan of Treatment Upcoming Encounters Date Type Department Care Team (Late st Contact Info) Description 01/07/2024 10:00 AM EST Office Visit [facility] [address] [facility], [place] [phone] Ivonne French PA-C [address] [facility], [place] [address] 01/07/2024 11:30 AM EST Laboratory Laboratory, [address] [phone] [facility], Lab [address] [place] [address] 01/07/2024 12:30 PM EST Hem/Onc Treatment Hematology/Oncology Treatment, [address] [address] [facility], [facility] Hem Onc [address] [place] [address] 01/10/2024 10:30 AM EST Laboratory Laboratory, [address] [phone] [facility], Lab [address] [place] [address] 01/10/2024 11:30 AM EST Telemedicine Hematology/Oncology , [address] [address] Ortega Verde MD [address] [facility] [address] Shayla, Telemed [facility] Hem Onc Clinic [address] [place], [place] [address] [address] 01/10/2024 12:00 PM EST Hem/Onc Treatment Hematology/Oncology Treatment, [address], [place] [address] [facility], Chair9 Hem Onc [address] [place] [address], [place] [address] 01/10/2024 12:30 PM EST Office Visit Palliative Medicine, [address], [place] [address] Nati Easley PA-C [address] [place] [address] [place] [address] 01/12/2024 10:30 AM EST Laboratory Laboratory, [address], [place] [address] [facility], Lab [address] [place] [address], [place] [address] 01/12/2024 11:30 AM EST Hem/Onc Treatment Hematology/Oncology Treatment, [address], [place] [address] [facility], Chair7 Hem Onc [address] [place] [address], [place] [address] 01/14/2024 11:30 AM EST Laboratory Laboratory, [address], [place] [address] [facility], Lab [address] [place] [address], [place] [address] 01/14/2024 12:30 PM EST Hem/Onc Treatment Hematology/Oncology Treatment, [address], [place] [address] [facility], Chair10 Hem Onc [address] [place] [address] 01/17/2024 10:00 AM EDT Hospital Encounter OR [facility], Operating Room, [facility] - 4th Floor [address] [place] [address] [facility], In And Out Surgery [address] [place] [address] 01/17/2024 10:00 AM EDT Appointment Radiology, [facility] [address] [place] [address] 01/17/2024 10:00 AM EDT - 01/17/2024 11:00 AM EDT Surgery OR [facility], Operating Room, [facility] - 4th Floor [address] [place] [address] [facility], In And Out Surgery [address] [place] [address] PRE / POST CARE 01/26/2024 9:00 AM EDT Office Visit Pharmacy, [facility] [address] [facility] [place] [address] [facility] [address] [place] [address] 01/31/2024 9:00 AM EDT Imaging Radiology [facility] 1st [facility] [address] [facility] [place] [address] 02/10/2024 11:40 AM EDT Office Visit [facility] [address] [facility] [phone] Ivonne French PA-C [address] [place] [address] 05/10/2024 8:15 AM EDT Office Visit Ophthalmology, [place] [address] [place] [address] Migel Ramires MD [address] [facility] [place] [address] Scheduled Procedures Name Priority Associated Diagnoses Date/Ti [...] this encounter Medical Devices Implanted Type Area Aquatic Instructor Device Identifier Shelf Expiration Date Model / Serial / Lot Lens Intraoc 21.0 - [id number] - [id number] Implanted:Qty : 1 on 07/06/2017 by Luis Eduardo Cole MD at OR [facility] Left: Eye BAUSCH & LOMB 01/05/2022 [id number] / [id number] / Lens Intraoc 21.0 - [id number] - [id number] Implanted:Qty : 1 on 07/20/2017 by Luis Eduardo Cole MD at OR [facility] Right: Eye BAUSCH & LOMB 01/05/2022 [id number] / [id number] / Syringe Prolaryn Del 1.0cc - [id number] Implanted:Qty : 1 on 11/20/2019 by Amber Jain MD at [place] [facility] Right: Mouth [employer] 10/21/2021 [id number] / / [id number] Implant Silastic 7 Silicone Sw - [id number] Implanted:Qty : 1 on 05/28/2020 by Farhat Pate MD at [place] [facility] Right: Throat eCurv [id number] / / documented as of this [...] the patient have Health Care Power of Ruling Machine Feeder? No Code Status History Code [...] and were consensually agreed upon. Care Teams Plisse Machine Operator Helper Relationship Specialty Start Date End Date Ivonne French PA-C [address] [place] [address] PCP - General Physician Director Fixed Income 07/24/21 documented as of this encounter
--- OUTSIDE RECORDS SUMMARY | 2024-01-29 21:26 | External Medical Summary ---
Author Name Unknown Address Unknown Organization K1F:[facility] - [address] [place] [address] Laboratory Report Ordering Provider Test Date Status BRADLY BERMAN 01/05/2024 10:14:36 Final Anticoagulation may affect t esting. Refer to [employer] Test Catalog for a list of effects. Observation Date Value Abnormality Reference (Units ) Status aPTT panel - Platelet poor plasma 01/05/2024 10:14:36 42 Above high normal 21-38 (seconds) Final Performing Location [facility] - [address] [place] [address]
--- OUTSIDE RECORDS SUMMARY | 2024-01-29 21:26 | External Medical Summary | Summary of Care ---
Author Name Unknown Organization [facility] Address [address] [place] [address] Phone [phone] Care Team Providers Care Forestry Worker Name Role Phone Ivnone French PA-C Primary Care Provider [phone] Reason for Visit * Reason Comments Outpatient Testing Encounter Details Date Type Department Care Team (Late st Contact Info) Description 01/05/2024 10:30 AM EST Laboratory Laboratory, [facility] [address] [place] [phone] [facility], Lab [address] [place] [address] 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sion (HCC); Pancytopenia ([facility]); DM type 2 causing neurological disease (HCC); 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 [...] Hour (toPROL XL)Indications:Craig nary artery disease involving little traverse coronary artery of little traverse heart without angina pectoris Take 2 Tablets by mouth daily in the morning. 135 Tablet 12/28/2023 Active Acyclovir 400 MG Oral Tablet (Zovirax) Take 1 Tablet by mouth in the morning and 1 Tablet before bedtime. 60 Tablet 12/28/2023 Active levoFLOXacin 500 MG Oral Tablet (Levaquin) Take 1 Tablet by mouth daily in the morning. 30 Tablet 12/29/2023 Active HeiaHeia.comTouch Verio In Vitro Strip (Glucose Blood) Use when checking blood glucose levels 4 times per day 200 Strip 12/28/2023 Active HeiaHeia.comTouch Delica Plus [id number] Use as directed. Use when checking blood [...] Team (Late st Contact Info) Description 01/05/2024 11:30 AM EST Office Visit Hematology/Oncolog , [address] [place] [address] Tasneem Mcdonald CRNP [address] [place] [address] [place] [address] PENDING VISIT DRAFT 01/05/2024 12:00 PM EST Hem/Onc Treatment Hematology/Oncolog y Treatment, [address], [place] [address] [facility], Chair10 Hem Onc [address] [place] [address], [place] [address] Arrived 01/07/2024 10:00 AM EST Office Visit [facility] [address] [place] [facility] [place] [phone] Ivonne French PA-C [address] [facility] [place] [address] 01/07/2024 11:30 AM EST Laboratory Laboratory, [address], [place] [address] [facility], Lab [address] [place] [address], [place] [address] 01/07/2024 12:30 PM EST Hem/Onc Treatment Hematology/Oncolog y Treatment, [address] [address] [facility], Chair4 Hem Onc [address] [place] [address], [place] [address] 01/10/2024 10:30 AM EST Laboratory Laboratory, [address], [place] [address] [facility], Lab [address] [place] [address], [place] [address] 01/10/2024 11:30 AM EST Telemedicine Hematology/Oncolog y, [address] [address] Ortega Verde MD [address] [place] [address] Shayla, Telemed [facility] Hem Onc Clinic [address] [place] [address] 01/10/2024 12:00 PM EST Hem/Onc Treatment Hematology/Oncolog y Treatment, [address] [address] [facility], Chair9 Hem Onc [address] [place] [address] 01/10/2024 12:30 PM EST Office Visit Palliative Medicine, [address], [place] [address] Nati Easley PA-C [address] [place] [address] 01/12/2024 10:30 AM EST Laboratory Laboratory, [address] [address] [facility], Lab [address] [place] [address] 01/12/2024 11:30 AM EST Hem/Onc Treatment Hematology/Oncolog y Treatment, [address] [address] [facility], Chair7 Hem Onc [address] [place] [address] 01/14/2024 11:30 AM EST Laboratory Laboratory, [address] [place] [address] [facility], Lab 400 [facility] [place] [address] 01/14/2024 12:30 PM EST Hem/Onc Treatment Hematology/Oncolog y Treatment, [address] [place] [address] [facility], Chair10 Hem Onc [address] [place], [place] [address] [address] 01/17/2024 10:00 AM EDT Hospital Encounter OR [facility], Operating Room, [facility] - 4th Floor [facility] [place] [address] [facility], In And Out Surgery [address] [place] [address] [place] [address] 01/17/2024 10:00 AM EDT Appointment Radiology, [address] [address] 01/17/2024 10:00 AM EDT - 01/17/2024 11:00 AM EDT Surgery OR [facility], Operating Room, [facility] - 4th Floor [address] [place], [place] [address] [address] [facility], In And Out Surgery [address] [place] [address] [place] [address] PRE / POST CARE 01/26/2024 9:00 AM EDT Office Visit Pharmacy, [facility] [address] [place] [address] [facility] [address] [place] [address] 01/31/2024 9:00 AM EDT Imaging Radiology [facility] 1st [facility] [address] [place] [address] 02/10/2024 11:40 AM EDT Office [address] [phone] Ivonne French PA-C [address] [place] [address] 05/10/2024 8:15 AM EDT Office Visit Ophthalmology, [place] [address] [place] [address] Migel Ramires MD [address] [facility] [place] [address] Pending Results Name Type Priority Associated Diagnoses Date /Time CBC WITH WBC DIFFERENTIAL Lab STAT 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sion (HCC) 01/05/2024 10:14 AM EST COMPREHENSIVE METABOLIC PANEL Lab STAT 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sion (HCC) 01/05/2024 10:14 AM EST TYPE AND SCREEN Lab STAT 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sion (HCC) 01/05/2024 10:14 AM EST LD Lab STAT 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sion (HCC) 01/05/2024 10:14 AM EST URIC ACID Lab STAT 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sion (HCC) 01/05/2024 10:14 AM EST PT INR Lab STAT 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sion (HCC) Pancytopenia (HCC) 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) Diabetic mononeuropathy associated with diabetes mellitus due to underlying condition (HCC) Diabetes mellitus (HCC) Hyperthyroidism Thrombocytopenia (HCC) 01/05/2024 10:14 AM EST APTT Lab STAT 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sion (HCC) Pancytopenia (HCC) 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) Diabetic mononeuropathy associated with diabetes mellitus due to underlying condition (HCC) Diabetes mellitus (HCC) Hyperthyroidism Thrombocytopenia (HCC) 01/05/2024 10:14 AM EST DIFFERENTIAL, AUTOMATED Lab STAT 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sion (HCC) 01/05/2024 10:14 AM EST Scheduled Procedures Name Priority Associated [...] history exists Depression Screening 12/30/2024 12/30/2023 GFR 12/31/2024 12/31/2023, 12/10, 12/27/2023, Additional history exists PAP SMEAR-EVERY 3 YRS,AGES [...] this encounter Medical Devices Implanted Type Area Cradle Placer Device Identifier Shelf Expiration Date Model / Serial / Lot Lens Intraoc 21.0 - [id number] - [id number] Implanted:Qty : 1 on 07/06/2017 by Luis Eduardo Cole MD at OR [facility] Left: Eye BAUSCH & LOMB 01/05/2022 [id number] / [id number] / Lens Intraoc 21.0 - [id number] - [id number] Implanted:Qty : 1 on 07/20/2017 by Luis Eduardo Cole MD at OR [facility] Right: Eye BAUSCH & LOMB 01/05/2022 [id number] / [id number] / Syringe Prolaryn Del 1.0cc - [id number] Implanted:Qty : 1 on 11/20/2019 by Amber Jain MD at [place] [facility] Right: Mouth [employer] 10/21/2021 [id number] / / [id number] Implant Silastic 7 Silicone Sw - [id number] Implanted:Qty : 1 on 05/28/2020 by Farhat Pate MD at [place] [facility] Right: Throat [employer] [id number] / / documented as of this encounter Procedures Procedure Name Priority Date/Time Associated Diagnosis Comments CBC STAT 01/05/2024 10:14 AM EST 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sion (HCC) documented in this encounter Results * (ABNORMAL) CBC (01/05/2024 10:14 AM EST) WBC 0.66(LL) 4.00 - 10.80 K/uL 01/05/2024 10:29 AM EST LABORATORY [facility] RBC 2.43 3.85 - 5.15 M/uL 01/05/2024 10:29 AM EST [facility] HGB 7.4(L) 12.0 - 15.3 g/dL 01/05/2024 10:29 AM EST [facility] HCT 20.8(L) 36.0 - 45.2 % 01/05/2024 10:29 AM EST [facility] MCV 85.6 81.5 - 97.5 fL 01/05/2024 10:29 AM EST [facility] MCH 30.5 27.0 - 34.0 pg 01/05/2024 10:29 AM EST [facility] MCHC 35.6 32.0 - 36.0 g/dL 01/05/2024 10:29 AM EST [facility] RDW 14.1 11.5 - 15.5 % 01/05/2024 10:29 AM EST [facility] PLT 29(L) 140 - 400 K/uL 01/05/2024 10:29 AM EST [facility] MPV 10.2 6.6 - 11.1 fL 01/05/2024 10:29 AM EST [facility] nRBCs 0 <=0 /100 WBCs 01/05/2024 10:29 AM EST [facility] Blood Venous blood specimen / Unknown Venipuncture / Unknown 01/05/2024 10:14 AM EST 01/05/2024 10:14 AM EST Ortega Verde MD LAB BLOOD O RDERABLES Performing Organization Address City/State/[facility] Co de Phone Number LABORATORY GL [address] [place] [address] documented in this encounter Visit Diagnoses Diagnosis 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sion (HCC) Pancytopenia (HCC) Other pancytopenia DM type 2 causing neurological disease (HCC) Type II or unspecified type diabetes mellitus with neurological manifestations, not stated as uncontrolled 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 No Code Status History Code Status [...] and were consensually agreed upon. Care Teams Forestry Worker Relationship Specialty Start Date End Date Ivonne French PA-C [address] [place] [address] PCP - General Physician Head Of Training And Development 07/24/21 documented as of this encounter
--- OUTSIDE RECORDS SUMMARY | 2024-01-29 21:26 | External Medical Summary ---
Author Name Unknown Address Unknown Organization K1F:LABORATORY [facility] - [address] [place] [address] Laboratory Report Ordering Provider Test Date Status ANTONELLADIEGOAPPLE 01/05/2024 10:14:36 Final Observation Date Value Abnormality Reference (Units ) Status Uric Acid 01/05/2024 10:14:36 1.7 Below low normal 2.4 -5.7 (mg/dL) Final Performing Location LABORATORY GL - [address] [place] [address]
--- OUTSIDE RECORDS SUMMARY | 2024-01-29 21:26 | External Medical Summary ---
Author Name Unknown Address Unknown Organization K1F[facility] [address] [facility] [place] [address] Laboratory Report Ordering Provider Test Date Status BRADLY BERMAN 01/05/2024 10:14:36 Final Observation Date Value Abnormality Reference (Units ) Status BUN 01/05/2024 10:14:36 23 Above high normal 6-20 (mg/dL) Final Creatinine 01/05/2024 10:14:36 0.9 0.5-1.0 (mg/dL) Final Glomerular filtration rate/1.73 sq M.predicted [Volume Rate/Area] in Serum, Plasma or Blood by Creatinine-based formula (CKD-EPI) 01/05/2024 10:14:36 70 >=60 (mL/min) Final eGFR is calculated based on the CKD-EPI 2020 equation SODIUM 01/05/2024 10:14:36 136 135-146 (m mol/L) Final Potassium 01/05/2024 10:14:36 4.3 3.5-5.1 (m mol/L) Final Cl 01/05/2024 10:14:36 98 98-107 (mm ol/L) Final CO2 01/05/2024 10:14:36 25 22-32 (mmo l/L) Final Anion gap 01/05/2024 10:14:36 13 7-15 (mmol /L) Final Glucose 01/05/2024 10:14:36 245 Above high normal 70 -120 (mg/dL) Final Albumin 01/05/2024 10:14:36 3.5 Below low normal 3.8 -5.0 (g/dL) Final AST (Aspartate aminotransferase) 01/05/2024 10:14:36 19 10-35 (U/L) Fin al Alk Phos 01/05/2024 10:14:36 131 Above high normal 35 -130 (U/L) Final Bilirubin, Total 01/05/2024 10:14:36 0.7 <=1 .2 (mg/dL) Final Calcium 01/05/2024 10:14:36 7.7 Below low normal 8.4 -10.2 (mg/dL) Final Protein 01/05/2024 10:14:36 6.5 6.0-8.3 (g /dL) Final ALT (Alanine aminotransferase) 01/05/2024 10:14:36 34 10-35 (U/L) Colin lee Performing Location LABORATORY [address] [place] [address]
--- OUTSIDE RECORDS SUMMARY | 2024-01-29 21:26 | External Medical Summary ---
Author Name Unknown Address Unknown Organization K1F:LABORATORY [facility] - [address] [place] [address] [address] [place] [address] Laboratory Report Ordering Provider Test Date Status BRADLY BERMAN 01/05/2024 10:14:36 Final Observation Date Value Abnormality Reference (Units ) Status WBC, Total 01/05/2024 10:14:36 0.66 Below lower panic limits 4.00-10.80 (K/uL) Final RBC 01/05/2024 10:14:36 2.43 3.85-5.15 (M/uL) Final Hemoglobin 01/05/2024 10:14:36 7.4 Below low normal 12.0-15.3 (g/dL) Final HCT 01/05/2024 10:14:36 20.8 Below low normal 36.0-45.2 (%) Final MCV 01/05/2024 10:14:36 85.6 81.5-97.5 (fL) Final MCH 01/05/2024 10:14:36 30.5 27.0-34.0 (pg) Final MCHC 01/05/2024 10:14:36 35.6 32.0-36.0 (g/dL) Final RDW 01/05/2024 10:14:36 14.1 11.5-15.5 (%) Final Platelets 01/05/2024 10:14:36 29 Below low normal 140-400 (K/uL) Final MPV 01/05/2024 10:14:36 10.2 6.6-11.1 (fL) Final Nucleated erythrocytes/100 leukocytes [Ratio] in Blood by Automated count 01/05/2024 10:14:36 0 <=0 (/100 WBCs) Final Performing Location LABORATORY [facility] [address] [facility] [place] [address]
--- OUTSIDE RECORDS SUMMARY | 2024-01-29 21:26 | External Medical Summary | Summary of Care ---
Author Name Unknown Organization [facility] Address [address] [facility] [place] [address] Phone [phone] Care Team Providers Care Answering Service Operator Name Role Phone Ivonne French PA-C Primary Care Provider [phone] Reason for Visit * Reason Onset Date Comments Scheduling 01/04/2024 URGENT - Please transfer call to [address] [place] [address] - Change in 01/05 schedule. Encounter Details Date Type Department Care Team (Late st Contact Info) Description 01/04/2024 Telephone Hematology/Oncology, [facility] [address] [place] [address] Tasneem Bryant CRNP [address] [place] [address] Scheduling (URGENT - Please transfer call ... Allergies Active Allergy Reactions Criticality Noted Date Comments Adhesive Tape 04/21/2016 Glue off the old style medical tape. documented as of this encounter (statuses as of 01/04/2024) Medications Medication Sig Dispensed Refills Start Date [...] E11.9 1 Kit 0 05/25/2023 Active Pen [place] 32G X 4 MM Use as directed. 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 Use when checking blood [...] 10 units 21 mL 3 12/28/2023 Active Furosemide 20 MG Oral Tablet (Lasix)Indications :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sion (HCC),Hypervolemia , unspecified hypervolemia type Take 1 Tablet by mouth in the morning. 90 Tablet 0 01/03/2024 Active Magic Swizzle (Lidocaine-Benadry l-Maalox) oral solutionIndication s: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sion (HCC),Hypervolemia , unspecified hypervolemia type Swish and spit 15 mL in the morning and 15 mL at noon and 15 mL before bedtime. 300 mL 1 01/03/2024 Discontinue d(Refill) documented as of this encounter (statuses as of 01/04/2024) Active Problems Problem Noted Date Diagnosed Date [...] as of this encounter (statuses as of 01/04/2024) Resolved Problems Problem Noted Date Diagnosed Date [...] as of this encounter (statuses as of 01/04/2024) Immunizations Name Administration Dates Next Due COVID-19 [...] encounter Miscellaneous Notes * Telephone Encounter - Aury Schulz OSA - 01/04/2024 3:11 PM EST Patient and brother have been notified of the message. Patient and brother have no further questions. Thank you. * Telephone Encounter - Donovan Perez OSA - 01/04/2024 2:27 PM EST PLEASE MAKE PT AWARE OF EACH OF THESE APPOINTMENTS IF SHE CALLS or transfer her call to Donovan or Charmaine @ ext [phone] Pt is currently scheduled tomorrow (01/05/24) in the [facility] Cardiology Office @ 830 am. I left a voicemail for the pt with these appt details... Her schedule for here is labs at 1030 for cbc and T&C then to see CAROL Boateng here in Hem/Onc @1130 and with tentative PRBC @ 1200. I have attempted to call this pt multiple times today and have left messages each time. Not actually talked to her at all. * Telephone Encounter - Donovan Perez OSA - 01/04/2024 10:18 AM EST URGENT: PLEASE TRANSFER CALL TO DONOVAN OR CHARMAINE @ EXT [phone] Need pt to have labs draw at 8 am, see Tasneem @ 9 and tent prbc @ 930... Switching spots with other pt to accommodate IR scheduling.... documented in this encounter Plan of Treatment Upcoming Encounters Date Type Department Care Team (Late st Contact Info) Description 01/05/2024 8:30 AM EST Office Visit [facility]iology, [facility] [place] [address] Christian Cardenas PA-C [address] [place] [address] 01/05/2024 10:30 AM EST Laboratory Laboratory, [address] [place] [phone] [facility], Lab [address] [place] [address] [place] [address] 01/05/2024 11:30 AM EST Office Visit Hematology/Oncology , [address] [place] [address] Tasneem Bryant CRNP [address] [place] [address], [place] [address] 01/05/2024 12:00 PM EST Hem/Onc Treatment Hematology/Oncology Treatment, [address], [place] [address] [facility], Chair10 Hem Onc [address] [place] [address], [place] [address] 01/07/2024 10:00 AM EST Office Visit [facility] [address] [facility], [place] [phone] Ivonne French PA-C [address] [facility], [place] [address] 01/07/2024 11:30 AM EST Laboratory Laboratory, [address], [place] [address] [facility], Lab [address] [place] [address], [place] [address] 01/07/2024 12:30 PM EST Hem/Onc Treatment Hematology/Oncology Treatment, [address], [place] [address] [facility], Chair4 Hem Onc [address] [place] [address], [place] [address] 01/10/2024 10:30 AM EST Laboratory Laboratory, [address], [place] [address] [facility], Lab [address] [place] [address], [place] [address] 01/10/2024 11:30 AM EST Telemedicine Hematology/Oncology , [address] [place] [address] Ortega Verde MD [address] [place] [address] Shayla, Telemed [facility] Hem Onc Clinic [address] [place] [address], [place] [address] 01/10/2024 12:00 PM EST Hem/Onc Treatment Hematology/Oncology Treatment, [address] [place] [address] [facility], Chair9 Hem Onc [address] [place] [address], [place] [address] 01/10/2024 12:30 PM EST Office Visit Palliative Medicine, [address], [place] [address] Nati Easley PA-C [address] [place] [address] [place] [address] 01/12/2024 10:30 AM EST Laboratory Laboratory, [address] [place] [address] [facility], Lab [address] [place] [address], [place] [address] 01/12/2024 11:30 AM EST Hem/Onc Treatment Hematology/Oncology Treatment, [address], [place] [address] [facility], Chair7 Hem Onc [address] [place] [address], [place] [address] 01/14/2024 11:30 AM EST Laboratory Laboratory, [address], [place] [address] [facility], Lab [address] [place] [address] 01/14/2024 12:30 PM EST Hem/Onc Treatment Hematology/Oncology Treatment, [facility] [address] [place] [address] [facility], Chair10 Hem Onc [address] [facility] [place] [address] 01/17/2024 10:00 AM EDT Hospital Encounter OR [facility], Operating Room, [facility] - 4th Floor [address] [place] [address] [facility], In And Out Surgery [address] [place] [address] 01/17/2024 10:00 AM EDT Appointment Radiology, [address] [place] [address] 01/17/2024 10:00 AM EDT - 01/17/2024 11:00 AM EDT Surgery OR [facility], Operating Room, [facility] - 4th Floor [address] [place] [address] [facility], In And Out Surgery [address] [place] [address] PRE / POST CARE 01/26/2024 9:00 AM EDT Office Visit Pharmacy, [facility] 132 [place] [address] [facility] 132 [place] [address] 01/31/2024 9:00 AM EDT Imaging Radiology [address] 132 [place] [address] 02/10/2024 11:40 AM EDT [address] [phone] Ivonne French PA-C [address] [place] [address] 05/10/2024 8:15 AM EDT Office Visit Ophthalmology, [address] [place] [address] Migel Ramires MD [address] [place] [address] Scheduled Procedures Name Priority Associated Diagnoses Date/Ti [...] this encounter Medical Devices Implanted Type Area Tailer In Device Identifier Shelf Expiration Date Model / Serial / Lot Lens Intraoc 21.0 - [id number] - [id number] Implanted:Qty : 1 on 07/06/2017 by Luis Eduardo Cole MD at OR [facility] Left: Eye [employer] 01/05/2022 [id number] / [id number] / Lens Intraoc 21.0 - [id number] - [id number] Implanted:Qty : 1 on 07/20/2017 by Luis Eduardo Cole MD at OR [facility] Right: Eye [employer] 01/05/2022 [id number] / [id number] / Syringe Prolaryn Del 1.0cc - [id number] Implanted:Qty : 1 on 11/20/2019 by Amber Jain MD at OR [facility] Right: Mouth [employer] 10/21/2021 [id number] / / [id number] Implant Silastic 7 Silicone Sw - [id number] Implanted:Qty : 1 on 05/28/2020 by Farhat Pate MD at OR [facility] Right: Throat [employer] [id number] / / documented as of this [...] the patient have Health Care Power of Medicine And Health Service Manager? No Code Status History Code Status [...] and were consensually agreed upon. Care Teams Answering Service Operator Relationship Specialty Start Date End Date Ivonne French PA-C [address] [place] [address] PCP - General Physician Foot Piece Assembler 07/24/21 documented as of this encounter
--- OUTSIDE RECORDS SUMMARY | 2024-01-29 21:26 | External Medical Summary | Summary of Care ---
Author Name Unknown Organization [facility] Address [address] [place] [address] Phone [phone] Care Team Providers Care Translation Director Name Role Phone Ivonne French PA-C Primary Care Provider [phone] Reason for Visit * Reason Onset Date Comments Scheduling 01/05/2024 BMB Encounter Details Date Type Department Care Team (Late st Contact Info) Description 01/05/2024 Telephone Hematology/Oncology Treatment, [facility] [address] [place] [address] Ortega Verde MD [address] [place] [address] Scheduling (BMB) Allergies Active Allergy [...] E11.9 1 Kit 0 05/25/2023 Active Pen [place] 32G X 4 MM Use as directed. [...] Hour (toPROL XL)Indications:Craig nary artery disease involving [place] coronary artery of [place] heart without angina pectoris Take 2 Tablets [...] per day 200 Strip 5 12/28/2023 Active Health: EltTouch Delica Plus [id number] Use as directed. Use when checking blood [...] encounter Miscellaneous Notes * Telephone Encounter - Reyna Lowery OSA [...] sooner. There are no available appointments in [place] to complete this sooner. Did ask if she would be willing to travel to [place] to get this done if they have an appointment available and the patient verbalized she was. Staff message sent to Amara Waters to see if this can be coordinated. documented in this encounter Plan of Treatment Upcoming Encounters Date Type Department Care Team (Late st Contact Info) Description 01/07/2024 10:00 AM EST Office Visit [facility] [address] [place] [phone] Ivonne French PA-C [address] [place] [address] 01/07/2024 11:30 AM EST Laboratory Laboratory, [address] [place] [phone] [facility], Lab [address] [place] [address] 01/07/2024 12:30 PM EST Hem/Onc Treatment Hematology/Oncology Treatment, [address] [place] [address] [facility], Chair4 Hem Onc [address] [place], [place] [address] [address] 01/10/2024 10:30 AM EST Laboratory Laboratory, [address] [address] [facility], Lab [address] [place] [address], [place] [address] 01/10/2024 11:30 AM EST Telemedicine Hematology/Oncology , [address] [place] [address] Ortega Verde MD [address] [place] [address] Shakira Mcguire [facility] Hem Onc Clinic [address] [place] [address] 01/10/2024 12:00 PM EST Hem/Onc Treatment Hematology/Oncology Treatment, [address] [address] [facility], Chair9 Hem Onc [address] [place] [address] 01/10/2024 12:30 PM EST Office Visit Palliative Medicine, [address] [place] [address] Nati Easley PA-C [address] [place] [address] 01/12/2024 10:30 AM EST Laboratory Laboratory, [address] [phone] [facility], Lab [address] [place] [address] 01/12/2024 11:30 AM EST Hem/Onc Treatment Hematology/Oncology Treatment, [address], [place] [address] [facility], Chair7 Hem Onc [address] [place] [address] 01/14/2024 11:30 AM EST Laboratory Laboratory, [address] [phone] [facility], Lab [address] [place] [address] 01/14/2024 12:30 PM EST Hem/Onc Treatment Hematology/Oncology Treatment, [facility] [address] [place] [address] [facility], Chair10 Hem Onc [address] [place] [address] 01/17/2024 10:00 AM EDT Hospital Encounter OR [facility], Operating Room, [facility] - 4th Floor [address] [place] [address] [facility], In And Out Surgery [address] [place] [address] 01/17/2024 10:00 AM EDT Appointment Radiology, [facility] [address] [place] [address] 01/17/2024 10:00 AM EDT - 01/17/2024 11:00 AM EDT Surgery OR [facility], Operating Room, [facility] - 4th Floor [address] [place] [address] [facility], In And Out Surgery [address] [address] PRE / POST CARE 01/26/2024 9:00 AM EDT Office Visit Pharmacy, [facility] [address] [place] [address] [facility] [address] [place] [address] 01/31/2024 9:00 AM EDT Imaging Radiology [facility] 1st [facility] [address] [place] [address] 02/10/2024 11:40 AM EDT [address] [phone] Ivonne French PA-C [address] [facility] [address] 05/10/2024 8:15 AM EDT Office Visit Ophthalmology, [facility] [address] [place] [address] Migel Ramires MD [address] [place] [address] Scheduled Procedures Name Priority Associated Diagnoses Date/Ti [...] this encounter Medical Devices Implanted Type Area Mechanical Estimator Device Identifier Shelf Expiration Date Model / Serial / Lot Lens Intraoc 21.0 - [id number] - [id number] Implanted:Qty : 1 on 07/06/2017 by Luis Eduardo Cole MD at [facility] Left: Eye BAUSCH & LOMB 01/05/2022 [id number] / [id number] / Lens Intraoc 21.0 - [id number] - [id number] Implanted:Qty : 1 on 07/20/2017 by Luis Eduardo Cole MD at OR [facility] Right: Eye BAUSCH & LOMB 01/05/2022 [id number] / [id number] / Syringe Prolaryn Del 1.0cc - [id number] Implanted:Qty : 1 on 11/20/2019 by Amber Jain MD [place] [facility] [place]: Mouth [employer] 10/21/2021 [id number] / / [id number] Implant Silastic 7 Silicone Sw - [id number] Implanted:Qty : 1 on 05/28/2020 by Farhat Pate MD at OR [facility] Right: Throat Cell>Point [id number] / / documented as of this [...] the patient have Health Care Power of Physical Education Professor? No Code Status History Code Status Date [...] and were consensually agreed upon. Care Teams Translation Director Relationship Specialty Start Date End Date Ivonne French PA-C [address] [facility] [place] [address] PCP - General Physician Hydrological Technical Officer 07/24/21 documented as of this encounter
--- OUTSIDE RECORDS SUMMARY | 2024-01-29 21:26 | External Medical Summary | Summary of Care ---
Author Name Unknown Organization [facility] Address [address] [facility] [address] Phone [phone] Care Team Providers Care Petrography Teacher Name Role Phone Ivonne French PA-C Primary Care Provider [phone] Reason for Visit * Reason Onset Date Comments Advice 01/04/2024 Needs urgent aung t Encounter Details Date Type Department Care Team (Late st Contact Info) Description 01/04/2024 Telephone Cardiology, [facility] [address] [place] [address] Yadira Al CRNP [address] [place] [address] Advice (Needs urgent appt) Allergies Active Allergy Reactions Criticality Noted Date [...] E11.9 1 Kit 0 05/25/2023 Active Pen [place] 32G X 4 MM Use as directed. [...] Hour (toPROL XL)Indications:Craig nary artery disease involving [place] coronary artery of [place] heart without angina pectoris Take 2 Tablets by mouth daily in the morning. 135 Tablet 1 12/28/2023 Active Acyclovir 400 MG Oral Tablet (Zovirax) Take 1 Tablet by mouth in the morning and 1 Tablet before bedtime. 60 Tablet 3 12/28/2023 Active levoFLOXacin 500 MG Oral Tablet (Levaquin) Take 1 Tablet by mouth daily in the morning. 30 Tablet 1 12/29/2023 Active DashBurstTouch Verio In Vitro Strip (Glucose Blood) Use when checking blood glucose levels 4 times per day 200 Strip 5 12/28/2023 Active DashBurstTouch Delica Plus [id number] Use as directed. Use when checking blood [...] 12/28/2023 Active Furosemide 20 MG Oral Tablet (Lasix)Indications: 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sion (HCC),Hypervolemia, unspecified hypervolemia type Take 1 Tablet by mouth in the morning. 90 Tablet 0 01/03/2024 Active Magic Swizzle (Lidocaine-Benadryl -Maalox) oral solutionIndications :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sion (HCC),Hypervolemia, unspecified hypervolemia type Swish and spit 15 mL in the morning and 15 mL at noon and 15 mL before bedtime. 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 * Telephone Encounter - nA Mallory OSA - 01/04/2024 1:42 PM EST Person calling: Arsh Mcgovern Infusion Relationship to patient: nurse Number to return call: Pt's # [phone] Reason for call: Palliative, Hematology Oncology Docs need this pt seen this week due to new & worsening issues. Please call the pt back Pharmacy: N/A Provider Name:MikaelaYadira documented in this encounter Plan of Treatment Upcoming Encounters Date Type Department Care Team (Late st Contact Info) Description 01/05/2024 8:30 AM EST Office Visit Cardiology, [facility] [address] [place] [address] Christian Cardenas PA-C [address] [place] [address] 01/05/2024 10:30 AM EST Laboratory Laboratory, [address] [phone] [facility], Lab [address] [place] [address] 01/05/2024 11:30 AM EST Office Visit Hematology/Oncology , [address] [address] Tasneem Bryant CRNP [address] [place] [address] 01/05/2024 12:00 PM EST Hem/Onc Treatment Hematology/Oncology Treatment, [address] [place] [address] [facility], Chair10 Hem Onc [address] [place] [address] 01/07/2024 10:00 AM EST Office Visit [place] [address] [address] [facility] [place] [address] Ivonne French PA-C [address] [facility] [place] [address] 01/07/2024 11:30 AM EST Laboratory Laboratory, [address], [place] [address] [facility], Lab [address] [place] [address], [place] [address] 01/07/2024 12:30 PM EST Hem/Onc Treatment Hematology/Oncology Treatment, [address], [place] [address] [facility], Chair4 Hem Onc [address] [place], [place] [address] [address] 01/10/2024 10:30 AM EST Laboratory Laboratory, [address], [place] [address] [facility], Lab [address] [place] [address], [place] [address] 01/10/2024 11:30 AM EST Telemedicine Hematology/Oncology , [address] [address] Ortega Verde MD [address] [place] [address] Shayla, Telemed [facility] Hem Onc Clinic [address] [place], [place] [address] [address] 01/10/2024 12:00 PM EST Hem/Onc Treatment Hematology/Oncology Treatment, [address] [address] [facility], Chair9 Hem Onc [address] [place], [place] [address] [address] 01/10/2024 12:30 PM EST Office Visit Palliative Medicine, [address], [place] [address] Nati Easley PA-C [address] [place] [address] 01/12/2024 10:30 AM EST Laboratory Laboratory, [address], [place] [address] [facility], Lab [address] [place] [address], [place] [address] 01/12/2024 11:30 AM EST Hem/Onc Treatment Hematology/Oncology Treatment, [address], [place] [address] [facility], Chair7 Hem Onc [address] [place] [address], [place] [address] 01/14/2024 11:30 AM EST Laboratory Laboratory, [address], [place] [address] [facility], Lab [address] [place] [address], [place] [address] 01/14/2024 12:30 PM EST Hem/Onc Treatment Hematology/Oncology Treatment, [address] [address] [facility], Chair10 Hem Onc [address] [place] [address], [place] [address] 01/17/2024 10:00 AM EDT Hospital Encounter OR [facility], Operating Room, [facility] - 4th Floor [address] [place], [place] [address] [address] [facility], In And Out Surgery [address] [place] [address] [place] [address] 01/17/2024 10:00 AM EDT Appointment Radiology, [address] [place] [address] 01/17/2024 10:00 AM EDT - 01/17/2024 11:00 AM EDT Surgery OR [facility], Operating Room, [facility] - 4th Floor [address] [place] [address] [facility], In And Out Surgery [address] [place] [address] PRE / POST CARE 01/26/2024 9:00 AM EDT Office Visit Pharmacy, [facility] 132 [facility] [place] [address] [facility] 132 [facility] [place] [address] 01/31/2024 9:00 AM EDT Imaging Radiology [facility] 1st [facility] 132 [facility] [place] [address] 02/10/2024 11:40 AM EDT Office Visit [facility] [address] [place] [address] Ivonne French PA-C [address] [place] [address] 05/10/2024 8:15 AM EDT Office Visit Ophthalmology, [facility] [address] [place] [address] Migel Ramires MD [address] [place] [address] Scheduled Procedures Name Priority Associated Diagnoses Date/Ti [...] this encounter Medical Devices Implanted Type Area Red Cap Device Identifier Shelf Expiration Date Model / Serial / Lot Lens Intraoc 21.0 - [id number] - [id number] Implanted:Qty : 1 on 07/06/2017 by Luis Eduardo Cole MD at OR [facility] Left: Eye [employer]OM[employer] 01/05/2022 [id number] / [id number] / Lens Intraoc 21.0 - [id number] - [id number] Implanted:Qty : 1 on 07/20/2017 by Luis Eduardo Cole MD at OR [facility] Right: Eye BAUSCH & LOMB 01/05/2022 [id number] / [id number] / Syringe Prolaryn Del 1.0cc - [id number] Implanted:Qty : 1 on 11/20/2019 by Amber Jain MD [place] [facility] [place] Mouth [employer] 10/21/2021 [id number] / / [id number] Implant Silastic 7 Silicone Sw - [id number] Implanted:Qty : 1 on 05/28/2020 by Farhat Pate MD [place] [facility] [place] Throat [place] [id number] / / documented as of this [...] the patient have Health Care Power of Boom Man? No Code Status History Code Status [...] and were consensually agreed upon. Care Teams Petrography Teacher Relationship Specialty Start Date End Date Ivonne French PA-C [address] [facility] [place] [phone] PCP - General Physician Ceramic Engineer 07/24/21 documented as of this encounter
--- OUTSIDE RECORDS SUMMARY | 2024-01-29 21:26 | External Medical Summary | Summary of Care ---
Author Name Unknown Organization [facility] Address [address] [place] [address] Phone [phone] Care Team Providers Care Tar Leveler Name Role Phone Ivonne French PA-C Primary Care Provider [phone] Reason for Visit * Reason Comments Follow Up Encounter Details Date Type Department Care Team (Late st Contact Info) Description 01/05/2024 11:30 AM EST Office Visit Hematology/Oncology, [facility] [address] [place] [address] Tasneem Bryant CRNP [address] [place] [address] 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sion (HCC)*; Encounter to discuss test results; Hypocalcemia; Coarse tremors Allergies Active Allergy Reactions Criticality Noted Date [...] E11.9 1 Kit 0 05/25/2023 Active Pen [place] 32G X 4 MM Use as directed. [...] Hour (toPROL XL)Indications:Craig nary artery disease involving telida coronary artery of telida heart without angina pectoris Take 2 Tablets [...] Strip 5 12/28/2023 Active OneTouch Delica Plus [id number] Use as directed. Use when checking blood [...] 9:33 AM EST Sexual Orientation Straight 07/22/2021 1 :54 PM EDT Job Start Date Occupation Industry Not on file Not on file Not on file documented as of this encounter Last Filed Vital Signs Vital Sign Reading Time Taken Comments Blood Pressure 98/46 01/05/2024 11:27 AM EST Pulse 77 01/05/2024 11:27 AM EST Temperature 36 C (96.8 F) 01/05/2024 11:27 AM EST Respiratory Rate - - Oxygen Saturation 100% 01/05/2024 11:27 AM EST Inhaled Oxygen Concentration - - Weight 89 kg (196 lb 1.6 oz) 01/05/2024 11:27 AM EST Height - - Body Mass Index 29.82 11/24/2023 5:00 PM EST documented in this [...] Progress Notes * Tasneem Bryant CRNP - 01/05/2024 9:00 AM EST Images from the original note were not included. Hematology/Oncology Outpatient Clinic note CAR[facility] Ryan Hematology/Oncology, [address] [address] Name: Juany Resendez Date: 01/04/2024 CHIEF COMPLAINT: Juany Resendez is a 58 year old female patient of Dr. Ortega Verde here today for f/u visit today. From Patient chart confirmed with patient. From Dr. Ortega Verde note 01/03/2024. 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 Molecular: [...] treatment: TBD Supportive medications: Acyclovir, Posaconazole, Levaquin ppx, Allopurinol TREATMENT HISTORY: Treatment Summary 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sion (HCC) 11/24/2023 Initial Diagnosis 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sion (HCC) 11/25/2023 - Chemotherapy IP/OP Decitabine and Venetoclax with Inpatient ramp-up (AML) [id number] 01/03/2024 - Supportive Therapy SCP - PACKED RED BLOOD CELLS AND PLATELETS FOR ADULTS REQUIRING FREQUENT TRANSFUSIONS (3 TIMES A WEEK FOR 3 MONTHS) [id number] Plan Provider: Ortega Verde MD Treatment goal: Supportive Line of treatment: [No plan line of treatment] ONCOLOGY HISTORY: History of present illness (at time of my initial evaluation on 12/31/2023 ): Juany Resendez is a 58 year old female who presented to my office today, unaccompanied, to establish care with cafe associate for her newly diagnosed AML. Patient is a , she lives alone. She lives about 1 hour away from [facility].Currently on disability. Her brother lives 10 minutes away from her. She had history of partial bigtoe amputation, and she started using cane recently. Patient was initially evaluated by Dr. Rice, then by Dr. Senior in [place], then admitted to the hospital, and coming now to [facility] follow-up with me as an outpatient. She had prolonged hospital stay, with the following hospital course 11/24/2023 - 12/28/2023 (34 days): "ADMISSION HISTORY & PHYSICAL EXAM (focused): Ms. Resendez is a 58 y/o female who lives in [place] by herself. Her PMH includes DM2 on insulin with partial great toe amputation, HTN, dyslipidemia, multinodular goiter s/p total thyroidectomy with resulting postsurgical hypothyroidism, enchondroma femur, paralytic ptosis left eyelid, HTN/CAD s/p OK years ago, s/p ischemic stroke x 2 [...] for last 1 year. She states her machinist apprentice is aware of these sx and they [...] as much as possible to help prevent OK. her blood counts dropped as expected and [...] discharged her home with close follow-up at [facility]." Patient is still feel weak after hospital discharge. She is very confused about her disease, prognosis, and treatment options. INTERVAL HISTORY: ECOG: Performance Status 2 = 60-70% Bedtime, < 50% daytime Interval history: Patient presented to my office today, unaccompanied, for follow-up of her AML. Patient reviewed print out of the education material of AML. She reported shortness of breath last night, and worsening lower extremity edema. Also reported soreness in the inner part of the right cheek. HISTORY OF PRESENT ILLNESS: Juany Resendez is a 58 year old female with a history as outlined above. Currently here for f/u visit today, unaccompanied. She was very recently diagnosed with AML and experienced and extended hospitalization at [facility] for inpatient chemotherapy during which time she required HFNC and a lasix drip. She was discharged home 12/28/2023, since followed in [facility] Hem/Onc clinic. Currently scheduled [facility] forCBC monitoring. On Wednesday she experienced some chest heaviness with difficulty breathing while lying flat which has completely resolved, no recurrence at this time. Improved when she slept with additional pillows. She had an appointment with Cardiology in [facility] this AM and made them aware. Started PO lasix yesterday evening. Has all prophylactic medications at home and taking as prescribed. On Wednesday she reached out with generalized joint pain and headache that improves with Tylenol butnot resolved but much improved. Reports that her appetite has been very poor since her diagnosis, that everything tastes like metal, but is doing her best to eat and drink. In the clinic today she has mild tremors at rest, she states that she started with tremors about 2 weeks ago, and that they affect her ability to use her smartphone. Denies fever, weakness, fatigue, cough, vision changes, SOB/SARMIENTO, chest pain/tightness/heaviness, palpitations, rash, paresthesias, myalgias, abdominal pain, nausea, vomiting, diarrhea, constipation, melena, or hematochezia. Past Medical History: Diagnosis [...] 12/16/2016 adenomatous polyps, repeat 5 yrs/[facility] COLONOSCOPY, DIAGNOSTIC (RECTUM) 06/03/2022 diverticulosis, fair prep, repeat 5 yrs / [facility] EGD, FLEXIBLE, DIAGNOSTIC 12/16/2016 normal bx/[facility] EGD, FLEXIBLE, W/BIOPSY 07/30/2010 esophagitis, await BX LARYNGOPLASTY MEDIALIZATION UNILATERAL Right 05/28/2020 LARYNGOPLASTY, MEDIALIZATION UNILATERAL performed by Farhat Pate MD at [facility] LARYNGOSCOPY, VOCAL CORD INJECTION Right 11/20/2019 LARYNGOSCOPY DIRECT INJECTION VOCAL CORD WITH MICROSCOPE performed by Amber Jain MD at OR [facility] MISCELLANEOUS ORDER ([facility] ONLY) Bilateral 11/24/2017 Reinheimer-bleph/levators-ou OTHER (3 times) 8 inch benign tumor removed from L femur; regrew x 3 OTHER Removal of a benign LN from L axilla REMOVAL OF THYROID GLAND 10/23/2009 total thyroidectomy 10/23/09, [facility], Dr. Vazquez REMOVE CATARACT, INSERT LENS PROSTH Right 07/20/2017 right EXTRACAPSULAR CATARACT REMOVAL WITH INTRAOCULAR LENS performed by Luis Eduardo Cole MD at OR [facility] REMOVE CATARACT, INSERT LENS PROSTH Left 07/06/2017 left EXTRACAPSULAR CATARACT REMOVAL WITH INTRAOCULAR LENS performed by Luis Eduardo Cole MD at OR [facility] REMOVE GALLBLADDER 2005 appox date Social History [...] a day E11.9 1 Kit 0 Pen [place] 32G X 4 MM Use as directed. [...] day 200 Strip 5 OneTouch Delica Plus [id number] Use as directed. Use when checking blood [...] 10 units 21 mL 3 Magic Swizzle (Dtzctxyno-Fydrzovj-Zhucob) oral solution Swish and spit 15 mL in the morning and 15 mL at noon and 15 mL before bedtime. 300 mL 1 Furosemide 20 MG Oral Tablet (Lasix) Take 1 Tablet by mouth in the morning. 90 Tablet 0 No current facility-administered medications for this visit. REVIEW OF SYSTEMS: See HPI - otherwise negative OBJECTIVE: Filed Vitals: 01/05/24 1127 BP: 98/46 Pulse: 77 Temp: 36 C (96.8 F) TempSrc: Tympanic SpO2: 100% Weight: 89 kg (196 lb 1.6 oz) Wt Readings from Last 5 Encounters: 01/05/24 89 kg (196 lb 1.6 oz) 01/05/24 88 kg (194 lb) 01/03/24 87.3 kg (192 lb 7.4 oz) 01/03/24 87.3 kg (192 lb 8 oz) 12/31/23 87.2 kg (192 lb 4.8 oz) PHYSICAL EXAM: ECOG: Performance Status 1 = 80-90% Symptoms but nearly ambulatory General Appearance: Normal - Healthy appearing patient in no acute distress Lymph Nodes: Normal - No palpable lymph nodes in the neck or supraclavicular areas Lungs/Thorax: Normal - Clear to auscultation Heart: Normal - Regular rate and rhythm, normal S1, S2, no appreciable murmurs, rubs, gallops Pulses/Extremities: +1 pitting bilateral ankle edema. Normal pulses - 2+ throughout and symmetrical. Neurologic: Moderate tremors bilateral upper extremities. Otherwise normal neuro exam. LABS: Results for orders placed or performed in visit on 01/05/24 COMPREHENSIVE METABOLIC PANEL Result Value Ref Range BUN 23 (H) 6 - 20 mg/dL Creatinine 0.9 0.5 - 1.0 mg/dL Estimated Glomerular Filtration Rate 70 >=60 mL/min Sodium 136 135 - 146 mmol/L Potassium 4.3 3.5 - 5.1 mmol/L Chloride 98 98 - 107 mmol/L CO2 25 22 - 32 mmol/L Anion Gap 13 7 - 15 mmol/L Glucose 245 (H) 70 - 120 mg/dL Albumin 3.5 (L) 3.8 - 5.0 g/dL AST 19 10 - 35 U/L Alkaline Phosphatase 131 (H) 35 - 130 U/L Bilirubin, Total 0.7 <=1.2 mg/dL Calcium 7.7 (L) 8.4 - 10.2 mg/dL Protein 6.5 6.0 - 8.3 g/dL ALT 34 10 - 35 U/L LD Result Value Ref Range LD 191 <=250 U/L URIC ACID Result Value Ref Range Uric Acid 1.7 (L) 2.4 - 5.7 mg/dL PT INR Result Value Ref Range Prothrombin Time 14.7 11.6 - 15.2 seconds INR 1.2 0.8 - 1.2 APTT Result Value Ref Range aPTT 42 (H) 21 - 38 seconds CBC Result Value Ref Range WBC 0.66 (LL) 4.00 - 10.80 K/uL RBC 2.43 3.85 - 5.15 M/uL HGB 7.4 (L) 12.0 - 15.3 g/dL HCT 20.8 (L) 36.0 - 45.2 % MCV 85.6 81.5 - 97.5 fL MCH 30.5 27.0 - 34.0 pg MCHC 35.6 32.0 - 36.0 g/dL RDW 14.1 11.5 - 15.5 % PLT 29 (L) 140 - 400 K/uL MPV 10.2 6.6 - 11.1 fL nRBCs 0 <=0 /100 WBCs *Note: Due to a [...] This exam was submitted to the radiology public health service officer worklist and the ordering provider will be notified that the final report is available in [facility]. XR CHEST 1 VIEW Result Date: 12/08/2023 IMPRESSION 1. Recommend contrast-enhanced chest CT or CT PE, as above. MRI FOOT LEFT W WO CONTRAST Result Date: 10/01/2023 IMPRESSION No evidence of osteomyelitis or abscess. IMPRESSION/PLAN: Acute Myeloid Leukemia not having achieved remission Hypocalcemia Tremors Encounter to discuss test results Reviewed CBC/Diff, CMP, LDH, and Uric acid results with the patient today No PRBC or Platelet transfusion today 01/04/2024 Hgb 7.4 PLT 29 Monitor CBC/Diff every other day and transfuse PRN for Hgb < 7 and PLT < 10 Low threshold to transfuse PRBCs for Hgb 7-8 if symptomatic due to cardiac hx Ordered ionized calcium, magnesium, phosphorus, PTH, and vitamin D labs to be drawn STAT to evaluate hypocalcemia Patient agreeable to go to the [facility] lab and have them drawn immediately following her appointment today Tremors may be caused by hypocalcemia - will decide next steps based on results Plan reviewed and discussed with Dr. Verde Bone marrow biopsy scheduled for 01/17/2024 Will try to schedule sooner, patient willing to travel to [place] Schedule follow up with Cardiology Patient was told that she would return in two weeks but there do not appear to be any upcoming scheduled appointments RTC as scheduled with CAROL Pal documented in this encounter Nursing Notes * Ursula Camacho MED ASSIST - 01/05/2024 11:30 AM EST Chief Complaint Patient presents with Follow Up Provider aware of VS. BP 98/46 | Pulse 77 | Temp 36 C (96.8 F) (Tympanic) | Wt 89 kg (196 lb 1.6 oz) | LMP 09/08/2016| SpO2 100% | BMI 29.82 kg/m | BSA 2.07 m Patient was instructed to not get [...] Description 01/07/2024 10:00 AM EST Office Visit [address] [place] [address] Ivonne French PA-C [address] [place] [address] 01/07/2024 11:30 AM EST Laboratory Laboratory, [address] [id number] [facility], Lab [address] [place] [address] 01/07/2024 12:30 PM EST Hem/Onc Treatment Hematology/Oncology Treatment, [address] [place] [address] [facility], Chair4 Hem Onc [address] [place] [address], [place] [address] 01/10/2024 10:30 AM EST Laboratory Laboratory, [address] [place] [address] [facility], Lab [address] [place] [address] 01/10/2024 11:30 AM EST Telemedicine Hematology/Oncology , [address] [place] [address] Ortega Verde MD [address] [place] [address] Shayla, Telemed [facility] Hem Onc Clinic [address] [place] [address], [place] [address] 01/10/2024 12:00 PM EST Hem/Onc Treatment Hematology/Oncology Treatment, [address] [address] [facility], Chair9 Hem Onc [address] [place] [address], [place] [address] 01/10/2024 12:30 PM EST Office Visit Palliative Medicine, [address] [facility], [place] [address] Nati Easley, PA-C [address] [place] [address] 01/12/2024 10:30 AM EST Laboratory Laboratory, [address], [place] [address] [facility], Lab [address] [place] [address], [place] [address] 01/12/2024 11:30 AM EST Hem/Onc Treatment Hematology/Oncology Treatment, [address], [place] [address] [facility], Chair7 Hem Onc [address] [place] [address], [place] [address] 01/14/2024 11:30 AM EST Laboratory Laboratory, [address], [place] [address] [facility], Lab [address] [place] [address], [place] [address] 01/14/2024 12:30 PM EST Hem/Onc Treatment Hematology/Oncology Treatment, [address], [place] [address] [facility], Chair10 Hem Onc [address] [place] [address], [place] [address] 01/17/2024 10:00 AM EDT Hospital Encounter OR [facility], Operating Room, [facility] - 4th Floor [address] [place] [address] [facility], In And Out Surgery [address] [place] [address] 01/17/2024 10:00 AM EDT Appointment Radiology, [facility] [address] [place] [address] 01/17/2024 10:00 AM EDT - 01/17/2024 11:00 AM EDT Surgery OR [facility], Operating Room, [facility] - 4th Floor [address] [place] [address] [facility], In And Out Surgery [address] [place] [address] PRE / POST CARE 01/26/2024 9:00 AM EDT Office Visit Pharmacy, [facility] [address] [facility] [place] [address] [facility] [address] [facility] [place] [address] 01/31/2024 9:00 AM EDT Imaging Radiology [address] [place] [address] 02/10/2024 11:40 AM EDT Office Visit [facility] [address] [place] [address] Ivonne French PA-C [address] [place] [address] 05/10/2024 8:15 AM EDT Office Visit Ophthalmology, [place] [address] [place] [address] Migel Ramires MD [address] [place] [address] Scheduled Orders Name Type Priority Associated Diagnoses Orde r Schedule 25-HYDROXY VITAMIN D Lab STAT 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sion (HCC) Hypocalcemia Expected: 01/05/2024, Expires: 01/05/2025 CALCIUM, IONIZED Lab STAT 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sion (HCC) Hypocalcemia Expected: 01/05/2024, Expires: 01/05/2025 MAGNESIUM Lab STAT 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sion (HCC) Hypocalcemia Expected: 01/05/2024, Expires: 01/05/2025 PTH-RELATED PROTEIN (PTH-RP) Lab STAT 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sion (HCC) Hypocalcemia Expected: 01/05/2024, Expires: 01/05/2025 PHOSPHORUS Lab STAT 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sion (HCC) Hypocalcemia Expected: 01/05/2024, Expires: 01/05/2025 Scheduled Procedures Name Priority Associated Diagnoses Date/Ti [...] this encounter Medical Devices Implanted Type Area Heater Operator Helper Device Identifier Shelf Expiration Date Model / Serial / Lot Lens Intraoc 21.0 - [id number] - [id number] Implanted:Qty : 1 on 07/06/2017 by Luis Eduardo Cole MD at OR [facility] Left: Eye [employer] 01/05/2022 [id number] / [id number] / Lens Intraoc 21.0 - [id number] - [id number] Implanted:Qty : 1 on 07/20/2017 by Luis Eduardo Cole MD at OR [facility] Right: Eye [employer] 01/05/2022 [id number] / [id number] / Syringe Prolaryn Del 1.0cc - [id number] Implanted:Qty : 1 on 11/20/2019 by Amber Jain MD at OR [facility] Right: Mouth [employer] 10/21/2021 [id number] / / [id number] Implant Silastic 7 Silicone Sw - [id number] Implanted:Qty : 1 on 05/28/2020 by Farhat Pate MD at OR [facility] Right: Throat [employer] [id number] / / documented as of this encounter Visit Diagnoses Diagnosis 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sion (HCC)- Primary Encounter to discuss test results Other specified counseling Hypocalcemia Coarse tremors Abnormal involuntary movements 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sion [...] patient have Health Care Power of Medical Transcriptionist? No Code Status History Code Status Date [...] and were consensually agreed upon. Care Teams Tar Leveler Relationship Specialty Start Date End Date Ivonne French PA-C [address] [place] [address] PCP - General Physician Chemical Process Operator 07/24/21 documented as of this encounter
--- OUTSIDE RECORDS SUMMARY | 2024-01-29 21:26 | External Medical Summary ---
Author Name Unknown Address Unknown Organization K1F:LABORATORY [facility] - [address] [place] [address] Laboratory Report Ordering Provider Test Date Status BRADLY BERMAN 01/05/2024 10:14:36 Final Warfarin Therapy
INR: 2 .0-3.0 conventional anticoagulation
INR: 2.5- 3.5 high intensity anticoagulation Observation Date Value Abnormality Reference (Units ) Status PT 01/05/2024 10:14:36 14.7 11.6-15.2 (seconds) Final INR 01/05/2024 10:14:36 1.2 0.8-1.2 Final Performing Location LAB[facility] - [address] [place] [address]
--- OUTSIDE RECORDS SUMMARY | 2024-01-29 21:26 | External Medical Summary ---
Author Name Unknown Address Unknown Organization K1F:[facility] - [address] [place] [address] Laboratory Report Ordering Provider Test Date Status BRADLY BERMAN 01/05/2024 10:14:36 Final Observation Date Value Abnormality Reference (Units ) Status LDH 01/05/2024 10:14:36 191 <=250 (U/L ) Final Performing Location LABORATORY [facility] - [address] [place] [address]
--- OUTSIDE RECORDS SUMMARY | 2024-01-29 21:26 | External Medical Summary | Summary of Care ---
Author Name Unknown Organization [facility] Address [address] [facility] [address] Phone [phone] Care Team Providers Care Balance Recesser Name Role Phone Ivonne French PA-C Primary Care Provider +[phone] Reason for Visit * Reason Onset Date Comments Advice 01/04/2024 Needs urgent aung t Encounter Details Date Type Department Care Team (Late st Contact Info) Description 01/04/2024 Telephone Cardiology, [facility] [address] [place] [address] Yadira Al CRNP [address] [place] [address] Advice (Needs urgent appt) Allergies Active Allergy [...] E11.9 1 Kit 0 05/25/2023 Active Pen Rector 32G X 4 MM Use as directed. 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 135 Tablet 1 12/28/2023 Active Acyclovir 400 MG Oral Tablet (Zovirax) Take 1 Tablet by mouth in the morning and 1 Tablet before bedtime. 60 Tablet 3 12/28/2023 Active levoFLOXacin 500 MG Oral Tablet (Levaquin) Take 1 Tablet by mouth daily in the morning. 30 Tablet 1 12/29/2023 Active [employer]Touch Verio In Vitro Strip (Glucose Blood) Use when checking blood glucose levels 4 times per day 200 Strip 5 12/28/2023 Active [employer]Touch Delica Plus Cebocc75I Use as directed. Use when checking blood [...] encounter Miscellaneous Notes * Telephone Encounter - Christian Cardenas PA-C - 01/04/2024 4:18 PM EST Noted. Thanks for the heads up! Interim diagnosis of acute myeloid leukemia. Poor prognosis noted. [place] [facility] [place] Dec[place] Ventocl[place] in November 2023. Hospital course complicated. Records reviewed. November 25, 2023 TTE Interpretation Summary [place]. Quinones): The qualitative LV ejection fraction is 55-59% (normal). No LV segmental wall motion abnormalities. Image quality does not allow for measruement of global longitudinal strain. The right ventricular cavity size is normal (basal dimen nya < 4.2 cm RV apical 4 chamber view). The right ventricular systolic function is qualitatively normal. December 10, 2023 TTE Interpretation Summary ([facility], as per Dr. Quinones): The examination is [...] present December 20, 2023 TTE Interpretation Summary ([facility], Dr. Jimenez): The examination is limited quality [...] hemoglobin of 6.9. Platelet count 30 K. Christian Cardenas PA-C Department of Cardiology * Telephone Encounter - Vandana Priest OSA - 01/04/2024 2:15 PM EST Pt already scheduled with Christian tomorrow. * Telephone Encounter - An Mallory OSA - 01/04/2024 1:42 PM EST Person calling: Arsh Mcgovern Infusion Relationship to patient: nurse Number to return call: Pt's # [phone] Reason for call: Palliative, Hematology Oncology Docs need this pt seen this week due to new & worsening issues. Please call the pt back Pharmacy: N/A Provider Name:Yadira Al documented in this encounter Plan of Treatment Upcoming Encounters Date Type Department Care Team (Late st Contact Info) Description 01/05/2024 8:30 AM EST Office Visit Cardiology, [facility] [address] [place] [address] Christian Cardenas PA-C [address] [place] [address] 01/05/2024 10:30 AM EST Laboratory Laboratory, [address] [phone] [facility], Lab [address] [place] [address] 01/05/2024 11:30 AM EST Office Visit Hematology/Oncology , [address] [address] Tasneem Bryant CRNP [address] [place] [address] 01/05/2024 12:00 PM EST Hem/Onc Treatment Hematology/Oncology Treatment, [address] [address] [facility], Chair10 Hem Onc [address] [place] [address] 01/07/2024 10:00 AM EST Office Visit [place] [address] [address] [facility] [place] [phone] Ivonne French PA-C [address] [facility], [place] [address] 01/07/2024 11:30 AM EST Laboratory Laboratory, [address], [place] [address] [facility], Lab [address] [place] [address], [place] [address] 01/07/2024 12:30 PM EST Hem/Onc Treatment Hematology/Oncology Treatment, [address], [place] [address] [facility], Chair4 Hem Onc [address] [place] [address], [place] [address] 01/10/2024 10:30 AM EST Laboratory Laboratory, [address], [place] [address] [facility], Lab [address] [place] [address], [place] [address] 01/10/2024 11:30 AM EST Telemedicine Hematology/Oncology , [address], [place] [address] Ortega Verde MD 100 [facility] [place] [address] Cart, Telemed [facility] Hem Onc Clinic [address] [place] [address] [address] 01/10/2024 12:00 PM EST Hem/Onc Treatment Hematology/Oncology Treatment, [address] [address] [facility], Chair9 Hem Onc [address] [place], [place] [address] [address] 01/10/2024 12:30 PM EST Office Visit Palliative Medicine, [address] [address] Nati Easley PA-C [address] [place] [address], [place] [address] 01/12/2024 10:30 AM EST Laboratory Laboratory, [address], [place] [address] [facility], Lab [address] [place] [address], [place] [address] 01/12/2024 11:30 AM EST Hem/Onc Treatment Hematology/Oncology Treatment, [address], [place] [address] [facility], Chair7 Hem Onc [address] [place] [address], [place] [address] 01/14/2024 11:30 AM EST Laboratory Laboratory, [address], [place] [address] [facility], Lab [address] [place] [address], [place] [address] 01/14/2024 12:30 PM EST Hem/Onc Treatment Hematology/Oncology Treatment, [address] [address] [facility], Chair10 Hem Onc [address] [place] [address], [place] [address] 01/17/2024 10:00 AM EDT Hospital Encounter OR [facility], Operating Room, [facility] - 4th Floor [address] [place] [address] [address] [address] [facility], In And Out Surgery [address] [place], [place] [address] [address] 01/17/2024 10:00 AM EDT Appointment Radiology, [address] [address] 01/17/2024 10:00 AM EDT - 01/17/2024 11:00 AM EDT Surgery OR [facility], Operating Room, [facility] - 4th Floor [address] [place] [address] [facility], In And Out Surgery [address] [place] [address] PRE / POST CARE 01/26/2024 9:00 AM EDT Office Visit Pharmacy, [facility] 132 [facility] [place] [address] [facility] 132 [facility] [place] [address] 01/31/2024 9:00 AM EDT Imaging Radiology [facility] 1st [facility] 132 [facility] [place] [address] 02/10/2024 11:40 AM EDT Office Visit [facility] [address] [facility] [address] Ivonne French PA-C [address] [facility] [place] [address] 05/10/2024 8:15 AM EDT Office Visit Ophthalmology, [address] [place] [address] Migel Ramires MD [address] [place] [address] Scheduled Procedures Name Priority Associated Diagnoses Date/Ti [...] this encounter Medical Devices Implanted Type Area Bushing And Broach Operator Device Identifier Shelf Expiration Date Model / Serial / Lot Lens Intraoc 21.0 - [id number] - [id number] Implanted:Qty : 1 on 07/06/2017 by Luis Eduardo Cole MD at OR [facility] Left: Eye BAUSCH & LOMB 01/05/2022 [id number] / [id number] / Lens Intraoc 21.0 - [id number] - [id number] Implanted:Qty : 1 on 07/20/2017 by Luis Eduardo Cole MD at OR [facility] Right: Eye BAUSCH & LOMB 01/05/2022 [id number] / [id number] / Syringe Prolaryn Del 1.0cc - [id number] Implanted:Qty : 1 on 11/20/2019 by Amber Jain [place] [facility] [place] Right: Mouth [employer] 10/21/2021 [id number] / / [id number] Implant Silastic 7 Silicone Sw - [id number] Implanted:Qty : 1 on 05/28/2020 by Farhat Pate [place] [facility] Right: Throat [email or web address] [id number] / / documented as of this [...] the patient have Health Care Power of Tierce Filler? No Code Status History Code Status Date [...] and were consensually agreed upon. Care Teams Balance Recesser Relationship Specialty Start Date End Date Ivonne French PA-C [address] [place] [address] PCP - General Physician Intensive Care Specialist 07/24/21 documented as of this encounter
--- OUTSIDE RECORDS SUMMARY | 2024-01-29 21:26 | External Medical Summary | Summary of Care ---
Author Name Unknown Organization [facility] Address [address] [place] [address] Phone [phone] Care Team Providers Care Medical Collections Specialist Name Role Phone Ivonne French PA-C Primary Care Provider [phone] Encounter Details Date Type Department Care Team (Late st Contact Info) Description 01/05/2024 12:15 PM EST Scheduled Telephone Care Coordination and Integration [address] [place] [address] Matthew Lieberman [facility] Health Exam [place] [address] [place], [place] [id number] Allergies Active Allergy Reactions Criticality Noted Date [...] E11.9 1 Kit 0 05/25/2023 Active Pen [place] 32G X 4 MM Use as directed. 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 Use when checking blood [...] Progress Notes * Matthew Lieberman [facility] Exam [place] - 01/05/2024 12:26 PM EST Telemedicine visit: No Community Health Exam [place] (DINORAH) documentation: [facility] follow up phone call with patient for RNCM. Patient reports she is currently at the hospital, so she is unable to talk right now. [facility] will notify RNCM. Carlos Lieberman Community Health Exam [place] II [facility] - [place] [phone] documented in this encounter Plan of Treatment Upcoming Encounters Date Type Department Care Team (Late st Contact Info) Description 01/07/2024 10:00 AM EST Office Visit [place] [address] [place] [facility] [address] Ivonne French PA-C [address] [place] [address] 01/07/2024 11:30 AM EST Laboratory Laboratory, [address] [phone] [facility], Lab [address] [place] [address] 01/07/2024 12:30 PM EST Hem/Onc Treatment Hematology/Oncology Treatment, [address] [place] [address] [facility], Chair4 Hem Onc [address] [place] [address], [place] [address] 01/10/2024 10:30 AM EST Laboratory Laboratory, [address] [place] [address] [facility], Lab [address] [place] [address] 01/10/2024 11:30 AM EST Telemedicine Hematology/Oncology , [address] [place] [address] Ortega Verde MD [address] [place] [address] Shayla, Telemed [facility] Hem Onc Clinic [address] [place] [address], [place] [address] 01/10/2024 12:00 PM EST Hem/Onc Treatment Hematology/Oncology Treatment, [address] [address] [facility], Chair9 Hem Onc [address] [place] [address], [place] [address] 01/10/2024 12:30 PM EST Office Visit Palliative Medicine, [address] [facility] [facility], [place] [address] Nati Easley PA-C [address] [place] [address] 01/12/2024 10:30 AM EST Laboratory Laboratory, [address], [place] [address] [facility], Lab [address] [place] [address], [place] [address] 01/12/2024 11:30 AM EST Hem/Onc Treatment Hematology/Oncology Treatment, [address], [place] [address] [facility], Chair7 Hem Onc [address] [place] [address], [place] [address] 01/14/2024 11:30 AM EST Laboratory Laboratory, [address], [place] [address] [facility], Lab 400 [facility], [place] [address] 01/14/2024 12:30 PM EST Hem/Onc Treatment Hematology/Oncology Treatment, [address], [place] [address] [facility], Chair10 Hem Onc [address] [place] [address], [place] [address] 01/17/2024 10:00 AM EDT Hospital Encounter OR [facility], Operating Room, [facility] - 4th Floor [address] [place] [address] [facility], In And Out Surgery [address] [place] [address] 01/17/2024 10:00 AM EDT Appointment Radiology, [facility] [address] [address] 01/17/2024 10:00 AM EDT - 01/17/2024 11:00 AM EDT Surgery OR [facility], Operating Room, [facility] - 4th Floor [address] [place] [address] [facility], In And Out Surgery [address] [place] [address] PRE / POST CARE 01/26/2024 9:00 AM EDT Office Visit Pharmacy, [facility] 132 [facility] [place] [address] [facility] 132 [facility] [place] [address] 01/31/2024 9:00 AM EDT Imaging Radiology [address] [place] [address] 02/10/2024 11:40 AM EDT Office Visit [facility] [address] [place] [address] Ivonne French PA-C [address] [place] [address] 05/10/2024 8:15 AM EDT Office Visit Ophthalmology, [place] [address] [place] [address] Migel Ramires MD [address] [place] [address] Scheduled Procedures Name Priority Associated Diagnoses Date/Ti [...] this encounter Medical Devices Implanted Type Area Reverse Logistics Analyst Device Identifier Shelf Expiration Date Model / Serial / Lot Lens Intraoc 21.0 - [id number] - [id number] Implanted:Qty : 1 on 07/06/2017 by Luis Eduardo Cole MD at OR [facility] Left: Eye BAUSCH & LOMB 01/05/2022 [id number] / [id number] / Lens Intraoc 21.0 - [id number] - [id number] Implanted:Qty : 1 on 07/20/2017 by Luis Eduardo Cole MD at OR [facility] Right: Eye BAUSCH & LOMB 01/05/2022 [id number] / [id number] / Syringe Prolaryn Del 1.0cc - [id number] Implanted:Qty : 1 on 11/20/2019 by Amber Jain MD at OR [facility] Right: Mouth [employer] 10/21/2021 [id number] / / [id number] Implant Silastic 7 Silicone Sw - [id number] Implanted:Qty : 1 on 05/28/2020 by Farhat Pate MD at OR [facility] Right: Throat [employer] [id number] / / documented as of this [...] the patient have Health Care Power of Manufacturing Operations Manager? No Code Status History Code Status [...] and were consensually agreed upon. Care Teams Medical Collections Specialist Relationship Specialty Start Date End Date Ivonne French PA-C [address] [place] [address] PCP - General Physician Exam [place] 07/24/21 documented as of this encounter
--- OUTSIDE RECORDS SUMMARY | 2024-01-29 21:26 | External Medical Summary | Summary of Care ---
Author Name Unknown Organization [facility] Address [address] [place] [address] Phone [phone] Care Team Providers Care Firer Locomotive Name Role Phone Ivonne French PA-C Primary Care Provider [phone] Reason for Visit * Reason Comments Nurse Documentation Hold blood products, parameters not met Encounter Details Date Type Department Care Team (Late st Contact Info) Description 01/05/2024 12:00 PM EST Hem/Onc Treatment Hematology/Oncology Treatment, [facility] [address] [place] [address] [facility], Chair10 Hem Onc [address] [place] [address] Arrived Allergies Active Allergy Reactions Criticality Noted [...] E11.9 1 Kit 0 05/25/2023 Active Pen [place] 32G X 4 MM Use as directed. 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 Use when checking blood [...] of this encounter Nursing Notes * Amy Baires, RN - 01/05/2024 12:24 PM EST Pt seen by provider, hgb 7.4 Per provider and parameters not being met, pt blood held this date. Pt to return on 01/07/24 documented in this encounter Plan of Treatment Upcoming Encounters Date Type Department Care Team (Late st Contact Info) Description 01/07/2024 10:00 AM EST Office Visit [place] [address] [place] [address] Ivonne French PA-C [address] [place] [address] 01/07/2024 11:30 AM EST Laboratory Laboratory, [address] [phone] [facility], Lab [address] [place] [address] 01/07/2024 12:30 PM EST Hem/Onc Treatment Hematology/Oncology Treatment, [address] [place] [address] [facility], Chair4 Hem Onc [address] [place] [address], [place] [address] 01/10/2024 10:30 AM EST Laboratory Laboratory, [address] [place] [address] [facility], Lab [address] [place] [address] 01/10/2024 11:30 AM EST Telemedicine Hematology/Oncology , [address] [place] [address] Ortega Verde MD [address] [place] [address] Shayla, Telemed [facility] Hem Onc Clinic [address] [place] [address], [place] [address] 01/10/2024 12:00 PM EST Hem/Onc Treatment Hematology/Oncology Treatment, [address] [address] [facility], Chair9 Hem Onc [address] [place] [address], [place] [address] 01/10/2024 12:30 PM EST Office Visit Palliative Medicine, [address] [facility], [place] [address] Nati Easley PA-C [address] [place] [address] 01/12/2024 10:30 AM EST Laboratory Laboratory, [address], [place] [address] [facility], Lab [address] [place] [address], [place] [address] 01/12/2024 11:30 AM EST Hem/Onc Treatment Hematology/Oncology Treatment, [address], [place] [address] [facility], Chair7 Hem Onc [address] [place] [address], [place] [address] 01/14/2024 11:30 AM EST Laboratory Laboratory, [address], [place] [address] [facility], Lab 400 [facility], [place] [address] 01/14/2024 12:30 PM EST Hem/Onc Treatment Hematology/Oncology Treatment, [address], [place] [address] [facility], Chair10 Hem Onc [address] [place] [address], [place] [address] 01/17/2024 10:00 AM EDT Hospital Encounter OR [facility], Operating Room, [facility] - 4th Floor [address] [place] [address] [facility], In And Out Surgery [address] [place] [address] 01/17/2024 10:00 AM EDT Appointment Radiology, [facility] [address] [place] [address] 01/17/2024 10:00 AM EDT - 01/17/2024 11:00 AM EDT Surgery OR [facility], Operating Room, [facility] - 4th Floor [address] [place] [address] [facility], In And Out Surgery [address] [place] [address] PRE / POST CARE 01/26/2024 9:00 AM EDT Office Visit Pharmacy, [facility] 132 [facility] [place] [address] [facility] 132 [facility] [place] [address] 01/31/2024 9:00 AM EDT Imaging Radiology [address] [place] [address] 02/10/2024 11:40 AM EDT Office Visit [facility] [address] [place] [address] Ivonne French PA-C [address] [place] [address] 05/10/2024 8:15 AM EDT Office Visit Ophthalmology, [place] [address] [place] [address] Migel Ramires MD [address] [place] [address] Scheduled Procedures Name Priority Associated Diagnoses Date/Ti [...] this encounter Medical Devices Implanted Type Area Pointing Machine Operator Device Identifier Shelf Expiration Date Model / Serial / Lot Lens Intraoc 21.0 - [id number] - [id number] Implanted:Qty : 1 on 07/06/2017 by Luis Eduardo Cole MD at OR [facility] Left: Eye BAUSCH & LOMB 01/05/2022 [id number] / [id number] / Lens Intraoc 21.0 - [id number] - [id number] Implanted:Qty : 1 on 07/20/2017 by Luis Eduardo Cole MD at OR [facility] Right: Eye BAUSCH & LOMB 01/05/2022 [id number] / [id number] / Syringe Prolaryn Del 1.0cc - [id number] Implanted:Qty : 1 on 11/20/2019 by Amber Jain MD at [place] [facility] Right: Mouth [employer] 10/21/2021 [id number] / / [id number] Implant Silastic 7 Silicone Sw - [id number] Implanted:Qty : 1 on 05/28/2020 by Farhat Pate MD at [place] [facility] Right: Throat Night Up [id number] / / documented as of this [...] the patient have Health Care Power of Dial Painter? No Code Status History Code Status Date [...] and were consensually agreed upon. Care Teams Firer Locomotive Relationship Specialty Start Date End Date Ivonne French PA-C [address] [place] [address] PCP - General Physician Financial Services Specialist 07/24/21 documented as of this encounter
--- NOTE | 2024-01-29 21:27 | Emergency Department Note ---
Impression & Plan Hyperglycemia due to type 2 diabetes mellitus, EBONY (acute kidney injury), Hypokalemia, Pancytopenia, Symptomatic anemia, Leukemia ED Provider Note NAME: HENRIK HOWARD AGE: 58 SEX: F : 1965 ARRIVES VIA: Ambulance INFORMANT: Patient ED PROVIDER(S): Kin Gonsalez MD CHIEF COMPLAINT: Fall PLAN: Disposition: Admit MEDICAL DECISION MAKING: The patient is a pleasant 58-year-old woman with a past medical history of CAD, DVT on Eliquis, CVA, diabetes, osteomyelitis, OCD, recent diagnosis of leukemia status post chemotherapy treatment cycle a week ago who presents to the emergency department via EMS accompanied by her brother for evaluation after having a fall where she reports she was in the kitchen and her legs gave out from weakness and she fell backwards into the refrigerator which had the door open hitting her head on one of the shelves. She denies loss of consciousness. She reports pain in the back of her head and neck. She denies any new weakness in her arms or legs. She has baseline weakness in her legs. She denies any recent fevers, chills, cough congestion. She reports she has been feeling increasingly weak in the setting of her recent chemotherapy. She reports she had outpatient blood work performed that demonstrated hemoglobin of 7.8 where she understands that they had offered blood transfusion however the patient wanted to see how she would do. On evaluation patient is fatigued appearing but no distress, afebrile stable vital signs. She appears clinically dry. She has minor contusion of the left and right occipital region as well as the lower C upper thoracic region without bony crepitus. She has normal strength of bilateral upper extremities. She has baseline generalized weakness with 4/5 strength of bilateral lower extremities. There is no midline T or L-spine test palpation or step-offs. Pelvis is stable with hips with full range of motion bilaterally. EKG without overt acute ischemia. CXR negative for acute cardiopulmonary process per my personal preliminary review/interpretation. Pancytopenia is present with WBC 0.85 with ANC of 0.04 and lymphopenia of 0.78. H/H 7.3/20.6 slightly decreased from patient's hemoglobin of 7.8 on Wednesday per her report. Platelets 92 K. Chemistry without metabolic acidosis. Glucose though is elevated at 524 and so sodium of 130 corrects to approximately 140. Serum osmolality is marginally elevated at 308 consistent with patient's clinically dry appearance. Creatinine is 1.4 also consistent with component of dehydration. TSH within normal limits. UA without evidence of infection. CT of the head, C-spine, T-spine and L-spine as well as pelvis were negative for acute traumatic findings or acute process otherwise. Given the patient's hyperglycemia and pancytopenia with symptomatic anemia patient referred to hospital service for further management. Patient did consent to blood transfusion given symptomatic anemia. Patient ordered for 1 unit of PRBCs. Patient's blood sugar did remain elevated in 400s after initial IV fluid hydration and so insulin drip ordered. Case was discussed with [facility] who will evaluate the patient for admission. Further management per admitting team. Triage Nursing notes reviewed and agree them. Prior/external medical records reviewed Vital Signs: reviewed Differential diagnosis: Infection, dehydration, metabolic abnormality, hypo/hyperglycemia, electrolyte disturbance, anemia, hypoxia, cardiac sources, intracerebral event, toxicologic, neurologic, as well as other pathologies. ER treatment provided: See below. Diagnostics interpreted by me: ECG: Normal sinus rhythm, 73 bpm, no ectopy, right bundle branch block, no overt ST ovation depression, QTc 504, cures 136. Cardiac Monitoring: An order for continuous cardiac monitoring was placed and demonstrated normal sinus rhythm, 73 bpm, no ectopy. Laboratory studies: See below Imaging studies: See below Consultation(s): Case was discussed with Dr. Morales [facility] who will evaluate the patient for admission. HPI: The patient is a pleasant 58-year-old woman with a past medical history of CAD, DVT on Eliquis, CVA, diabetes, osteomyelitis, OCD, recent diagnosis of leukemia status post chemotherapy treatment cycle a week ago who presents to the emergency department via EMS accompanied by her brother for evaluation after having a fall where she reports she was in the kitchen and her legs gave out from weakness and she fell backwards into the refrigerator which had the door open hitting her head on one of the shelves. She denies loss of consciousness. She reports pain in the back of her head and neck. She denies any new weakness in her arms or legs. She has baseline weakness in her legs. She denies any recent fevers, chills, cough congestion. She reports she has been feeling increasingly weak in the setting of her recent chemotherapy. She reports she had outpatient blood work performed that demonstrated hemoglobin of 7.8 where she understands that they had offered blood transfusion however the patient wanted to see how she would do. ROS: See above HPI for pertinent positives & negatives. A total of 10 systems reviewed and were otherwise negative. VITALS:See Below PHYSICAL EXAMINATION: GENERAL: Awake, alert, fatigued-appearing, in no distress, BMI 29.0. HENT: Normocephalic, minor contusion of the left and right occipital region as well as the lower C upper thoracic region without bony crepitus. Oropharynx with dry mucous membranes and otherwise unremarkable. EYES: Normal conjunctiva. Sclera non-icteric. NECK: Supple. No nuchal rigidity. FROM. No JVD. RESPIRATORY: Clear to auscultation. CARDIAC: Regular rate, normal rhythm. Extremities warm and well perfused. Pulses equal. ABDOMEN: Soft, non-distended. No tenderness to palpation. No rebound or guarding. No masses. RECTAL: Deferred. MUSCULOSKELETAL: Chest examination reveals no tenderness. The back is symmetrical on inspection without obvious abnormality. There is no CVA tenderness to palpation. No joint edema. LOWER EXTREMITIES: Calves are equal size bilaterally and non-tender. Mild BLE lymphedema. No discoloration. NEURO: Normal strength of bilateral upper extremities. She has baseline generalized weakness with 4/5 strength of bilateral lower extremities. SKIN: No rash or jaundice noted. ED COURSE: Critical Care: I have personally spent greater than 65 minutes of critical care time in the direct management of this patient. This includes bedside care, interpretation of diagnostic studies, and testing, discussion with consultants, patient, and family members, and other required patient management activities. This 65 minutes is in excess of all separately billable procedures. Kin Gonsalez MD Past Med/Surg History Medical History Paronychia of great toe of right foot GERD (gastroesophageal reflux disease) Hyperglycemia Amputation of toe CAD (coronary artery disease) Suicidal ideation resolved per pt Vulvitis resolved per pt Benign neoplasm of vulva of clitoris Restless leg syndrome Hypertension Tumor LEFT FEMUR (BENIGN) 2 TUMORS REMOVED > several yrs ago Peripheral neuropathy Stroke 7 YEARS AGO (LEFT SIDE WEAKNESS/LEFT EYE DROOPING) > follows with a neurologist unsure of name Myocardial Infarction 12 YEARS AGO (FOLLOWED BY DR. DODSON) VERBALIZED NO HEART CATH DONE Schwannoma REMOVED BY DR. GROSSMAN MARCH 2018 Diabetes mellitus, type II insulin pump History of thyroid cancer with surgical intervention Anxiety Surgical History History of cardiac cath March 2022, [facility] > no stents/ just check up per pt History of neck surgery anterior cervical discectomy with bilateral foraminotomies C6-7. #2 anterior cervical arthrodesis C6-7. #3 placement of titanium 9.9 mm cage filled with DBM and C6-7. #4 occasional hernandez plate and screws across C6-7 >> ROM no limitations History of surgery robot-assist left thorascopic resection of schwannoma from left upper mediastinum. 03/16/2018. SANG. A line. No issues. S/P LASIK surgery of both eyes Status post hysteroscopic ablation of endometrium Family history of reaction to anesthesia BROTHER-NAUSEA History of anesthesia reaction SLOW TO WAKE UP History of esophagogastroduodenoscopy (EGD) History of colonoscopy History of cholecystectomy History of thyroidectomy, total History of tooth extraction History of tonsillectomy H/O blepharoplasty RT/LEFT Family History Grandmother (Maternal) Family history of diabetes mellitus Mother Ovarian cancer Father Myocardial infarction Social History Smoking Status: Never smoker Second Hand Exposure: No; Do You Dip or Chew Tobacco: No; Hx Alcohol Use: No Hx Substance Use: No Preferred Language: Vietnamese Communication Ability: Effective Blocker And Polisher Required: No Beliefs That Will Affect Care: None marital status: / Current Living Situation: Alone How many Children do You have: 2 Feels Safe at Home: Yes Assistive Devices: None Allergies Allergies Allergy/AdvReac Type Severity Reaction Status Date / Time adhesive tape Allergy Mild PER PT Verified 01/29/24 23:05 "GLUE ON TAPE"--SKIN IRRITATION Home Meds Home Medications Medication Instructions Recorded Confirmed aspirin 81 mg tablet,delayed 81 mg PO QAM 02/18/19 01/29/24 release omeprazole 20 mg tablet,delayed 20 mg PO BID 02/18/19 01/29/24 release metoprolol succinate 25 mg 50 mg PO QAM 05/24/21 01/29/24 tablet,extended release 24 hr insulin pump cart,cont inf,BT 12/30/21 01/30/24 (Omnipod Dash Pods (Gen 4) subcutaneous cartridge) levothyroxine 150 mcg tablet 150 mcg PO 5XWK 12/30/21 01/29/24 (Synthroid) duloxetine 60 mg capsule,delayed 60 mg PO QAM 12/02/22 01/29/24 release insulin aspart U-100 100 unit/mL 0 unit subcut TIDM 12/02/22 01/29/24 (3 mL) subcutaneous pen (Novolog FlexPen U-100 Insulin aspart) insulin glargine 100 unit/mL 25 unit subcut HS 12/02/22 01/29/24 subcutaneous solution (Lantus U-100 Insulin) melatonin 10 mg tablet 10 mg PO HS 12/02/22 01/29/24 acyclovir 400 mg tablet 400 mg PO BID 01/29/24 01/29/24 allopurinol 300 mg tablet 300 mg PO QAM 01/29/24 01/29/24 calcium carb,cit ER 600 mg-vit D3 1 tab PO QAM 01/29/24 01/29/24 12.5 mcg (500 unit) tablet,ext.rel furosemide 40 mg tablet 40 mg PO QAM 01/29/24 01/29/24 isosorbide mononitrate 30 mg 30 mg PO QAM 01/29/24 01/29/24 tablet,extended release 24 hr lactulose 10 gram/15 mL oral 15 ml PO BID PRN Constipation 01/29/24 01/29/24 solution levothyroxine 75 mcg tablet 75 mcg PO 2XWK 01/29/24 01/29/24 linaclotide 72 mcg capsule 72 mcg PO DAILYBB 01/29/24 01/29/24 (Linzess) magnesium oxide 400 mg PO HS 01/29/24 01/29/24 potassium chloride 20 mEq 20 meq PO QAM 01/29/24 01/29/24 tablet,extended release rosuvastatin 20 mg tablet 20 mg PO DAILY 01/29/24 01/29/24 sennosides 8.6 mg-docusate sodium 2 tab-cap PO BID PRN Constipation 01/29/24 01/29/24 50 mg tablet tirzepatide 10 mg/0.5 mL 10 mg subcut WK 01/29/24 01/29/24 subcutaneous pen injector (Gabriel) triamcinolone acetonide 0.1 % 1 applic topical BID PRN Skin 01/29/24 01/29/24 topical ointment Irritation Results & Data (ED) Vital Signs Vital Signs - 24 hr 01/29/24 20:56 01/29/24 21:09 01/29/24 21:10 Temperature 36.6 C Temperature Source Oral Pulse Rate 73 73 72 Pulse Rate from SpO2 Sensor 72 Respiratory Rate 17 12 Respiratory Effort / Characteristics Non-Labored Spontaneous Respiratory Depth Normal Respiratory Pattern Regular Blood Pressure 124/61 Blood Pressure Mean 82 Pulse Oximetry 96 96 Oxygen Delivery Method Room Air Sepsis Recent Fever Within 48 Hours No Sepsis New/Unexplained Change in Mental Status N/A Sepsis Action Taken by Nursing No Action Required 01/29/24 21:29 01/29/24 21:30 01/29/24 21:30 Temperature Temperature Source Pulse Rate 72 Pulse Rate from SpO2 Sensor 72 Respiratory Rate 16 Respiratory Effort / Characteristics Respiratory Depth Respiratory Pattern Blood Pressure 99/46 L Blood Pressure Mean 64 Pulse Oximetry 95 96 Oxygen Delivery Method Room Air Sepsis Recent Fever Within 48 Hours Sepsis New/Unexplained Change in Mental Status Sepsis Action Taken by Nursing 01/29/24 22:13 01/29/24 22:30 01/29/24 22:30 Temperature Temperature Source Pulse Rate 73 69 Pulse Rate from SpO2 Sensor 72 69 Respiratory Rate 9 L 16 Respiratory Effort / Characteristics Respiratory Depth Respiratory Pattern Blood Pressure 118/58 L Blood Pressure Mean 79 Pulse Oximetry 96 95 Oxygen Delivery Method Room Air Room Air Sepsis Recent Fever Within 48 Hours Sepsis New/Unexplained Change in Mental Status Sepsis Action Taken by Nursing 01/29/24 23:00 01/29/24 23:30 01/30/24 00:00 Temperature Temperature Source Pulse Rate 70 70 70 Pulse Rate from SpO2 Sensor 70 70 70 Respiratory Rate 16 16 16 Respiratory Effort / Characteristics Respiratory Depth Respiratory Pattern Blood Pressure 104/59 L 109/59 L 112/60 Blood Pressure Mean 74 75 77 Pulse Oximetry 95 96 95 Oxygen Delivery Method Sepsis Recent Fever Within 48 Hours Sepsis New/Unexplained Change in Mental Status Sepsis Action Taken by Nursing 01/30/24 00:30 Temperature Temperature Source Pulse Rate 69 Pulse Rate from SpO2 Sensor 69 Respiratory Rate 15 Respiratory Effort / Characteristics Respiratory Depth Respiratory Pattern Blood Pressure 115/61 Blood Pressure Mean 79 Pulse Oximetry 96 Oxygen Delivery Method Sepsis Recent Fever Within 48 Hours Sepsis New/Unexplained Change in Mental Status Sepsis Action Taken by Nursing Laboratory Data Attestation: I reviewed the patient's lab results. 01/29/24 21:16 01/29/24 21:16 Lab Results 01/29/24 01/29/24 01/30/24 Range/Units 21:16 21:22 00:42 WBC 0.85 L* (4.8-10.8) K/ul RBC 2.42 L (4.20-5.40) M/uL Hgb 7.3 L (12.0-16.0) g/dl POC Hgb 7.5 L (12.0-16.0) g/dl Hct 20.6 L* (37.0-47.0) % POC Hct 22 L (37-47) % MCV 85.1 (80.0-100.0) fL MCH 30.2 (25.0-34.0) pg MCHC 35.4 (32.0-36.0) g/dL RDW Std Deviation 41.5 (36.4-46.3) fL RDW Coeff of Daphney 14.8 H (11.5-14.5) % Plt Count 92 L (130-400) K/uL MPV 10.8 (9.4-12.4) fL Immature Gran % (Auto) 0.0 % Neut % (Auto) 4.6 % Lymph % (Auto) 91.8 % [place] % (Auto) 1.2 % Eos % (Auto) 1.2 % Baso % (Auto) 1.2 % Reticulocyte % (Auto) 1.68 (0.50-2.00) % Neut # (Auto) 0.04 L* (1.40-6.50) K/uL Lymph # (Auto) 0.78 L (1.20-3.40) K/uL [place] # (Auto) 0.01 L (0.11-0.59) K/uL Eos # (Auto) 0.01 (0.00-0.50) K/uL Baso # (Auto) 0.01 (0.00-0.20) K/uL Reticulocyte # 0.040 (0.020-0.100) 10^6/uL Immature Gran # (Auto) 0.00 L (0.01-0.20) K/uL Anisocytosis Present PT 11.3 (9.0-12.0) Seconds INR 1.0 (0.9-1.1) POC Sodium 131 L (135-144) mmol/L Sodium 130 L (136-145) mmol/L POC Potassium 4.3 (3.3-5.0) mmol/L Potassium 4.3 (3.5-5.1) mmol/L POC Chloride 92 L (101-112) mmol/L Chloride 94 L (98-107) mmol/L Carbon Dioxide 27 (21-32) mmol/L POC Total CO2 26 (24-31) mmol/L Anion Gap 9 (3-11) POC Anion Gap 18.0 (16-25) mmol/L POC BUN 24 H (7-18) mg/dl BUN 25 H (6-23) mg/dl Creatinine 1.41 H (0.6-1.2) mg/dl POC Creatinine 1.4 H (0.6-1.3) mg/dl Est Cr Clr Drug Dosing 48.9 ml/min Est GFR ( Amer) 46.8 ml/min Est GFR (Non-Af Amer) 40.4 ml/min BUN/Creatinine Ratio 17.7 (10-20) Glucose 524 H* (70-99(Fasting)) mg/dl POC Glucose 486 H* (70-99) mg/dl POC Glucose (other) 516 H* (70-99) mg/dl Osmolality 308 H (280-300) mOsm/kg Calcium 8.6 (8.6-10.3) mg/dl POC Ioniz Calcium [place] 1.13 (1.12-1.32) mmol/l Phosphorus 3.7 (2.5-4.9) mg/dl Magnesium 1.9 (1.7-2.4) mg/dl Iron 141 (35-150) mcg/dl Unsaturated IBC 146 L (155-355) mcg/dl Transferrin 197 L (200-360) mg/dl Ferritin 1292.0 H (8-388) ng/ml Total Bilirubin 0.8 (0.2-1.0) mg/dl AST 22 (13-39) U/L ALT 28 (7-52) U/L Alkaline Phosphatase 128 H (34-104) U/L Total Creatine Kinase 48 (26-192) U/L Total Protein 7.3 (6.0-8.3) gm/dl Albumin 4.0 (3.4-5.0) gm/dl Globulin 3.3 (2.5-4.0) gm/dl Albumin/Globulin Ratio 1.2 (0.9-2) TSH 1.187 (0.300-4.500) uIu/ml Urine Color Urine Appearance (Clear) Urine pH (4.5-7.5) Ur Specific [place] (1.000-1.030) Urine Protein (Negative) Urine Glucose (UA) (Negative) Urine Ketones (Negative) Urine Blood (Negative) Urine Nitrite (Negative) Urine Bilirubin (Negative) Urine Urobilinogen (Negative) Ur Leukocyte Esterase (Negative) Blood Type Antibody Screen Crossmatch 01/30/24 01/30/24 Range/Units 00:43 Unknown WBC (4.8-10.8) K/ul RBC (4.20-5.40) M/uL Hgb (12.0-16.0) g/dl POC Hgb (12.0-16.0) g/dl Hct (37.0-47.0) % POC Hct (37-47) % MCV (80.0-100.0) fL MCH (25.0-34.0) pg MCHC (32.0-36.0) g/dL RDW Std Deviation (36.4-46.3) fL RDW Coeff of Daphney (11.5-14.5) % Plt Count (130-400) K/uL MPV (9.4-12.4) fL Immature Gran % (Auto) % Neut % (Auto) % Lymph % (Auto) % [place] % (Auto) % Eos % (Auto) % Baso % (Auto) % Reticulocyte % (Auto) (0.50-2.00) % Neut # (Auto) (1.40-6.50) K/uL Lymph # (Auto) (1.20-3.40) K/uL [place] # (Auto) (0.11-0.59) K/uL Eos # (Auto) (0.00-0.50) K/uL Baso # (Auto) (0.00-0.20) K/uL Reticulocyte # (0.020-0.100) 10^6/uL Immature Gran # (Auto) (0.01-0.20) K/uL Anisocytosis PT (9.0-12.0) Seconds INR (0.9-1.1) POC Sodium (135-144) mmol/L Sodium (136-145) mmol/L POC Potassium (3.3-5.0) mmol/L Potassium (3.5-5.1) mmol/L POC Chloride (101-112) mmol/L Chloride (98-107) mmol/L Carbon Dioxide (21-32) mmol/L POC Total CO2 (24-31) mmol/L Anion Gap (3-11) POC Anion Gap (16-25) mmol/L POC BUN (7-18) mg/dl BUN (6-23) mg/dl Creatinine (0.6-1.2) mg/dl POC Creatinine (0.6-1.3) mg/dl Est Cr Clr Drug Dosing ml/min Est GFR ( Amer) ml/min Est GFR (Non-Af Amer) ml/min BUN/Creatinine Ratio (10-20) Glucose (70-99(Fasting)) mg/dl POC Glucose (70-99) mg/dl POC Glucose (other) (70-99) mg/dl Osmolality (280-300) mOsm/kg Calcium (8.6-10.3) mg/dl POC Ioniz Calcium [place] (1.12-1.32) mmol/l Phosphorus (2.5-4.9) mg/dl Magnesium (1.7-2.4) mg/dl Iron (35-150) mcg/dl Unsaturated IBC (155-355) mcg/dl Transferrin (200-360) mg/dl Ferritin (8-388) ng/ml Total Bilirubin (0.2-1.0) mg/dl AST (13-39) U/L ALT (7-52) U/L Alkaline Phosphatase (34-104) U/L Total Creatine Kinase (26-192) U/L Total Protein (6.0-8.3) gm/dl Albumin (3.4-5.0) gm/dl Globulin (2.5-4.0) gm/dl Albumin/Globulin Ratio (0.9-2) TSH (0.300-4.500) uIu/ml Urine Color Yellow Urine Appearance Clear (Clear) Urine pH 5.5 (4.5-7.5) Ur Specific [place] 1.017 (1.000-1.030) Urine Protein Negative (Negative) Urine Glucose (UA) 3+ H (Negative) Urine Ketones Negative (Negative) Urine Blood Negative (Negative) Urine Nitrite Negative (Negative) Urine Bilirubin Negative (Negative) Urine Urobilinogen Negative (Negative) Ur Leukocyte Esterase Negative (Negative) Blood Type O Positive Antibody Screen NEGATIVE Crossmatch See Detail Administered Medications Insulin Aspart (Insulin Aspart Per Unit Charge) 0 units SC ACHS WILLIAM Stop: 02/29/24 01:29 Last Admin: 01/30/24 01:55 Dose: 14 units Documented By: ROSSI Co-signed By: AUSTIN Discontinued Medications Acetaminophen (Ofirmev) 1,000 mg in 100 mls @ 400 mls/hr IV NOW STA Stop: 01/29/24 21:54 Last Infusion: 01/29/24 22:45 Dose: Infused Documented By: Admin: 01/29/24 21:49 Dose: 400 mls/hr Documented By: VICTORINA Sodium Chloride (Nss) 500 mls @ 125 mls/hr IV .Q4H WILLIAM Stop: 02/28/24 21:44 Last Admin: 01/29/24 21:48 Dose: 125 mls/hr Documented By: VICTORINA Sodium Chloride (Nss) 1,000 mls @ 999 mls/hr IV .Q1H1M ONE Stop: 01/30/24 00:27 Last Infusion: 01/30/24 00:44 Dose: Infused Documented By: Admin: 01/29/24 23:41 Dose: 999 mls/hr Documented By: ROSSI Insulin Human Regular 250 (units/ Sodium Chloride) 250 mls @ 8.7 mls/hr IV .Q24H [facility]; Protocol Stop: 02/29/24 00:29 Last Admin: 01/30/24 01:42 Dose: Not Given Documented By: ROSSI Insulin Glargine (Lantus Per Unit Charge) 40 units SQ NOW STA Stop: 01/30/24 01:30 Last Admin: 01/30/24 01:56 Dose: 40 units Documented By: ROSSI Co-signed By: AUSTIN Insulin Human Regular (Novolin-R Bolus From Bag) 8.7 units IV ONE ONE Stop: 01/30/24 00:46 Last Admin: 01/30/24 01:41 Dose: Not Given Documented By: ROSSI Miscellaneous (Hhs Goal Range 250-350 Mg/Dl) 1 each N/A ONE ONE Stop: 01/30/24 00:27 Last Admin: 01/30/24 01:42 Dose: Not Given Documented By: ROSSI Sullivancellaneous (Stat Iv Infusion Titration Per Protocol) 1 each N/A NOW STA Stop: 01/30/24 00:27 Last Admin: 01/30/24 01:42 Dose: Not Given Documented By: ROSSI Imaging Data Radiologist's Impression: Cervical Spine CT 01/29/24 21:39 Exam(s): CT C SPINE EXAM: CT Cervical Spine Without Intravenous Contrast CLINICAL HISTORY: Reason for exam: pain fall. TECHNIQUE: Axial computed tomography images of the cervical spine without intravenous contrast. Automated exposure control was utilized for the study. A dose lowering technique was utilized adhering to the principles of ALARA. COMPARISON: Comparison made to prior CT scan of the cervical spine from June 15, 2022. FINDINGS: Vertebrae: Status post anterior fusion of C6 and C7. No acute fracture. Discs/spinal canal/neural foramina: No acute findings. There is a severe spinal canal stenosis at C6-7. Soft tissues: Unremarkable. IMPRESSION: No evidence of acute cervical spine pathology. Electronically signed by: Sharlene Rawls MD 01/29/24 23:[address] 01/29/24 21:39 Exam(s): CT HEAD Without Contrast EXAM: CT Head Without Intravenous Contrast CLINICAL HISTORY: Reason for exam: pain fall. TECHNIQUE: Axial computed tomography images of the head/brain without intravenous contrast. Automated exposure control was utilized for the study. A dose lowering technique was utilized adhering to the principles of ALARA. COMPARISON: No relevant prior studies available. FINDINGS: Brain: Unremarkable. No hemorrhage. No significant white matter disease. No edema. Ventricles: Unremarkable. No ventriculomegaly. Bones/joints: Hyperostosis frontalis interna. No acute fracture. Soft tissues: There are bilateral lens replacements. Sinuses: Unremarkable as visualized. No acute sinusitis. Mastoid air cells: Unremarkable as visualized. No mastoid effusion. IMPRESSION: No evidence of acute intracranial pathology. Electronically signed by: Sharlene Rawls MD 01/29/24 23:[address] 01/29/24 21:39 Exam(s): CT L SPINE EXAM: CT Lumbar Spine Without Intravenous Contrast CLINICAL HISTORY: Reason for exam: pain fall. TECHNIQUE: Axial computed tomography images of the lumbar spine without intravenous contrast. Automated exposure control was utilized for the study. A dose lowering technique was utilized adhering to the principles of ALARA. COMPARISON: No relevant prior studies available. FINDINGS: Vertebrae: Unremarkable. No acute fracture. Discs/spinal canal/neural foramina: No acute findings. No spinal canal stenosis. Soft tissues: Unremarkable. IMPRESSION: No evidence of acute lumbar spine pathology. Electronically signed by: Sharlene Rawls MD 01/30/24 00:[address] 01/29/24 21:39 Exam(s): CT PELVIS Without Contrast EXAM: CT Pelvis Without Intravenous Contrast CLINICAL HISTORY: Reason for exam: pain fall. TECHNIQUE: Axial computed tomography images of the pelvis without intravenous contrast. Automated exposure control was utilized for the study. A dose lowering technique was utilized adhering to the principles of ALARA. COMPARISON: No relevant prior studies available. FINDINGS: No femoral neck or intertrochanteric hip fracture. No pelvic fracture. Intact bilateral superior and inferior pubic rami. Degenerative changes of the bilateral hip joints, pubic symphysis, and sacroiliac joints. Diffuse osseous demineralization. Lumbar spondylosis and disc space narrowing. Intrapelvic contents are within normal limits for the patient's age. Intact sacrum. IMPRESSION: No hip or pelvic fracture. Electronically signed by: Scott Esquivel MD 01/29/24 23:[address] 01/29/24 21:39 Exam(s): CT T SPINE EXAM: CT Thoracic Spine Without Intravenous Contrast CLINICAL HISTORY: Reason for exam: pain fall. TECHNIQUE: Axial computed tomography images of the thoracic spine without intravenous contrast. Automated exposure control was utilized for the study. A dose lowering technique was utilized adhering to the principles of ALARA. COMPARISON: No relevant prior studies available. FINDINGS: Vertebrae: Unremarkable. No acute fracture. Anterior fusion of C6-C7. Discs/spinal canal/neural foramina: No acute findings. No spinal canal stenosis. Soft tissues: Findings concerning bronchitis, which may be infectious or inflammatory etiologies. IMPRESSION: No evidence of acute thoracic spine pathology. Electronically signed by: Sharlene Rawls MD 01/30/24 00:12 AM Discharge Plan Visit Data Chief Complaint: Fall Stated Complaint: Fall, Hit Head ED Provider: Kin Gonsalez Discharge Problem: Hyperglycemia due to type 2 diabetes mellitus, EBONY (acute kidney injury), Hypokalemia, Pancytopenia, Symptomatic anemia, Leukemia Forms Stand Alone Forms: My [facility] Prescriptions Prescriptions: No Action aspirin 81 mg Tablet,Delayed Release (Dr/Ec) 81 mg PO QAM omeprazole 20 mg Tablet,Delayed Release (Dr/Ec) 20 mg PO BID metoprolol succinate 25 mg Tablet Extended Release 24 Hr 50 mg PO QAM levothyroxine [Synthroid] 150 mcg Tablet 150 mcg PO 5XWK Rx Instructions: TAKE THIS MED EVERY WEDNESDAY THRU WEDNESDAY IN THE MORNING BEFORE BREAKFAST. (DME) Omnipod Dash Pods (Gen 4) Cartridge SUBCUT insulin glargine [Lantus U-100 Insulin] 100 unit/mL Solution 25 unit SUBCUT HS insulin aspart U-100 [Novolog FlexPen U-100 Insulin] 100 unit/mL (3 mL) Insulin Pen 0 unit SUBCUT TIDM Rx Instructions: PER SLIDING SCALE duloxetine 60 mg Capsule,Delayed Release(Dr/Ec) 60 mg PO QAM melatonin 10 mg Tablet 10 mg PO HS Mounjaro 10 mg/0.5 mL Pen Injector 10 mg SUBCUT WK Rx Instructions: TAKE THIS MED EVERY WEDNESDAY calcium carb and citrate-vitD3 600 mg-12.5 mcg (500 unit) Tablet Extended Release 1 tab PO QAM magnesium oxide 400 mg magnesium Tablet 400 mg PO HS isosorbide mononitrate 30 mg Tablet Extended Release 24 Hr 30 mg PO QAM rosuvastatin 20 mg Tablet 20 mg PO DAILY Linzess 72 mcg Capsule 72 mcg PO DAILYBB triamcinolone acetonide 0.1 % Ointment 1 applic TOPICAL BID PRN (Reason: Skin Irritation) Rx Instructions: APPLY TO HANDS AND FEET levothyroxine 75 mcg Tablet 75 mcg PO 2XWK Rx Instructions: TAKE THIS MED EVERY WEDNESDAY AND WEDNESDAY IN THE MORNING BEFORE BREAKFAST. allopurinol 300 mg Tablet 300 mg PO QAM potassium chloride 20 mEq Tablet Extended Release 20 meq PO QAM acyclovir 400 mg Tablet 400 mg PO BID furosemide 40 mg Tablet 40 mg PO QAM lactulose 10 gram/15 mL Solution 15 ml PO BID PRN (Reason: Constipation) sennosides-docusate sodium 8.6-50 mg Tablet 2 tab-cap PO BID PRN (Reason: Constipation) Referrals Referrals: Ivonne French PA-C [Primary Care Provider] - Discharge Problem: Hyperglycemia due to type 2 diabetes mellitus Qualifiers: Diabetes mellitus half-way insulin use: with half-way use Qualified Code(s): E11.65 - Type 2 diabetes mellitus with hyperglycemia Leukemia Qualifiers: Leukemia type: unspecified
--- OUTSIDE RECORDS SUMMARY | 2024-01-29 21:27 | External Medical Summary | Summary of Care ---
Author Name Unknown Organization [facility] Address [address] [place] [address] Phone [phone] Care Team Providers Care Bioinformatics Computer Scientist Name Role Phone Ivonne French PA-C Primary Care Provider [phone] Reason for Referral * Evaluate & Treat - Unlimited Visits (Within 10 days (routine)) - Authorized Specialty Diagnoses / Procedures Referred By Contsumanth t Referred To Contact Hospice and Palliative Medicine / Palliative Medicine Diagnoses 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sion (HCC) Ortega Verde MD [address] [place] [address] Referral ID Status Reason Start Date Expiration Date Visits Requested Visits Authorized [id number] Authorized Specialty Services Required 01/03/2024 999 999 Question Answer Referral Priority Within 10 days (routine) Where should this appointment be scheduled? [facility] Reason for Referral: Cancer Palliative Medicine To Address: Goals of Care Referral Location Office Comments New Poor risk AML with multiple comorbidities. Reason for Visit * Reason Comments Follow Up Encounter Details Date Type Department Care Team (Late st Contact Info) Description 01/03/2024 9:30 AM EST Office Visit Hematology/Oncology, [address] [address] Ortega Verde MD [address] [place] [address] 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sion (HCC)*; Hypervolemia, unspecified hypervolemia type; Encounter to discuss test results; Encounter to discuss treatment options; SOB (shortness of breath); Goals of care, counseling/discussion ; Thrombocytopenia (HCC); On aspirin at home Allergies Active Allergy Reactions Criticality Noted Date [...] the morning. 180 Capsule 0 11/24/2022 Active StartForce Delica Lancets 33G Use to test blood sugar three times daily E 11.9 300 Each 05/25/2023 Active SurfkitchenTouch Verio w/Device Kit Use up to 3 times a day E11.9 1 Kit 0 05/25/2023 Active Pen Omaha 32G X 4 MM Use as directed. [...] Hour (toPROL XL)Indications:Cor onary artery disease involving nikolai coronary artery of nikolai heart without angina pectoris Take 2 Tablets [...] Strip 5 12/28/2023 Active OneTouch Delica Plus [id number] Use as directed. Use when checking blood [...] Sign Reading Time Taken Comments Blood Pressure 100/33 01/03/2024 9:29 AM EST Pulse 67 01/03/2024 9:29 AM EST Temperature 36.7 C (98.1 F) 01/03/2024 9:29 AM ES T Respiratory Rate - - Oxygen Saturation 100% 01/03/2024 9:29 AM EST Inhaled Oxygen Concentration - - Weight 87.3 kg (192 lb 8 oz) 01/03/2024 9:29 AM EST Height - - Body Mass Index 29.27 11/24/2023 5:00 PM EST documented in this [...] Progress Notes * Ortega Verde MD - 01/03/2024 9:36 AM EST Images from the original note were not included. TeleVIDEO Visit Patient location: CLINIC. I was in a different facility from the patient. After connecting through televideo, patient was verified with two unique identifiers. 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 My office door was closed. No one else was in the room with me. Patient acknowledged consent and understanding of privacy and security of the Telemedicine visit, and gave permission to have a telemedicine presenter stay in the room in order to assist with the history and to conduct the exam as needed. I informed the patient that I have reviewed their record in [facility] and presented the opportunity for them to ask any questions regarding the visit today. The patient agreed to participate. 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 Molecular: [...] Decitabine and Venetoclax with Inpatient ramp-up (AML) [id number] ECOG: Performance Status 2 = 60-70% Bedtime, < 50% daytime History of present illness (at time of my initial evaluation on 12/31/2023 ): Juany Resendez is a 58 year old female who presented to my office today, unaccompanied, to establish care with spareribs trimmer for her newly diagnosed AML. Patient is a , she lives alone. She lives about 1 hour away from [facility].Currently on disability. Her brother lives 10 minutes away from her. She had history of partial bigtoe amputation, and she started using cane recently. Patient was initially evaluated by Dr. Rice, then by Dr. Senior in [place], then admitted to the hospital, and coming now to [facility] follow-up with me as an outpatient. He had prolonged hospital stay, with the following hospital course 11/24/2023 - 12/28/2023 (34 days) : "ADMISSION HISTORY & PHYSICAL EXAM (focused): Ms. Resendez is a 58 y/o female who lives in [place] by herself. Her PMH includes DM2 on insulin with partial great toe amputation, HTN, dyslipidemia, multinodular goiter s/p total thyroidectomy with resulting postsurgical hypothyroidism, enchondroma femur, paralytic ptosis left eyelid, HTN/CAD s/p PR years ago, s/p ischemic stroke x 2 [...] for last 1 year. She states her nuclear officer is aware of these sx and they [...] as much as possible to help prevent PR. her blood counts dropped as expected and [...] discharged her home with close follow-up at [facility]." Patient is still feel weak [...] DIAGNOSTIC (RECTUM) 12/16/2016 adenomatous polyps, repeat 5 yrs/[facility] COLONOSCOPY, DIAGNOSTIC (RECTUM) 06/03/2022 diverticulosis, fair prep, repeat 5 yrs / [facility] EGD, FLEXIBLE, DIAGNOSTIC 12/16/2016 normal bx/[facility] EGD, FLEXIBLE, W/BIOPSY 07/30/2010 esophagitis, await BX LARYNGOPLASTY MEDIALIZATION UNILATERAL Right 05/28/2020 LARYNGOPLASTY, MEDIALIZATION UNILATERAL performed by Farhat Pate MD at [facility] LARYNGOSCOPY, VOCAL CORD INJECTION Right 11/20/2019 LARYNGOSCOPY DIRECT INJECTION VOCAL CORD WITH MICROSCOPE performed by Amber Jain MD at [facility] MISCELLANEOUS ORDER ([facility] ONLY) Bilateral 11/24/2017 Reinheimer-bleph/levators-ou OTHER (3 times) 8 inch benign tumor removed from L femur; regrew x 3 OTHER Removal of a benign LN from L axilla REMOVAL OF THYROID GLAND 10/23/2009 total thyroidectomy 10/23/09, [facility], Dr. Vazquez REMOVE CATARACT, INSERT LENS PROSTH Right 07/20/2017 right EXTRACAPSULAR CATARACT REMOVAL WITH INTRAOCULAR LENS performed by Luis Eduardo Cole MD at [facility] REMOVE CATARACT, INSERT LENS PROSTH Left 07/06/2017 left EXTRACAPSULAR CATARACT REMOVAL WITH INTRAOCULAR LENS performed by Luis Eduardo Cole MD at [facility] REMOVE GALLBLADDER 2005 appox date Social History Tobacco Use Smoking [...] mouth in the morning. 180 Capsule 0 SurfkitchenToMelophone DelVana Workforce Lancets 33G Use to test blood sugar three times daily E 11.9 300 Each 5 SurfkitchenTouch Verio w/Device Kit Use up to 3 times a day E11.9 1 Kit 0 Pen Omaha 32G X 4 MM Use as directed. [...] day 200 Strip 5 OneTouch Delica Plus [id number] Use as directed. Use when checking blood [...] - 390: 10 units 21 mL 3 No current facility-administered medications for this visit. Review of patient's allergies indicates: Allergen Reactions Tape [Adhesive Tape] Glue off the old style medical tape. Physical exam: Vitals 12/27/2023 12/28/2023 12/29/2023 12/30/2023 12/31/2023 01/03/2024 Vitals BP 97/54 103/46 94/41 100/33 Pulse 58 54 73 67 Resp 16 16 Temp 35.6 C (96.1 F) 36.4 C (97.5 F) 37 C (98.6 F) 36.7 C (98.1 F) SpO2 96 % 100 % 100 % 100 % Weight 185 lb 180 lb 192 lb 4.8 oz 192 lb 8 oz Notes Notes Inpatient Ask-A-Doc Signed Harjeet Villaseñor DO Progress Notes Signed Zuri Alejandra [facility] Progress Notes Signed Carolina Gustafson RN Progress Notes Signed Bannach, Carolina Julia, RN Telephone Encounter Signed Maria R Agosto, GILBERT Addendum Note Signed Lenore López PBT Details More values are hidden. Newest values shown. Go to activity for more data. Wt Readings from Last 6 Encounters: 01/03/24 87.3 kg (192 lb 8 oz) 12/31/23 87.2 kg (192 lb 4.8 oz) 12/28/23 81.6 kg (180 lb) 11/23/23 88.9 kg (196 lb) 11/17/23 89.6 kg (197 lb 8 oz) 11/12/23 89.8 kg (198 lb) Patient is comfortable and privacy is respected General: alert and no distress Head: Normocephalic, No masses, lesions, tenderness or abnormalities Remaining of physical exam was not performed because of being on telehealth visit Labs: Results for orders placed or performed in visit on 01/03/24 TYPE AND SCREEN Result Value Ref Range ABO O Rh Positive Red Blood Cell Antibody Screen Negative Specimen Expiration Date 01/06/2024 23:59 CBC Result Value Ref Range WBC 0.85 (LL) 4.00 - 10.80 K/uL RBC 2.31 3.85 - 5.15 M/uL HGB 6.9 (L) 12.0 - 15.3 g/dL HCT 19.7 (L) 36.0 - 45.2 % MCV 85.3 81.5 - 97.5 fL MCH 29.9 27.0 - 34.0 pg MCHC 35.0 32.0 - 36.0 g/dL RDW 14.0 11.5 - 15.5 % PLT 30 (L) 140 - 400 K/uL MPV 10.8 6.6 - 11.1 fL nRBCs 0 <=0 /100 WBCs DIFFERENTIAL, TECHNOLOGIST REVIEW Result Value Ref Range WBC 0.85 (LL) 4.00 - 10.80 K/uL Lymphocytes % 99.0 (H) 18.0 - 42.0 % Monocytes % 1.0 1.0 - 11.0 % Absolute Lymphocytes 0.84 (L) 1.00 - 4.80 K/uL Absolute Monocytes [...] This exam was submitted to the radiology command and control officer worklist and the ordering provider will [...] loss of RUNX1 or chromosome 21/21q, del 8t47-y99, monosomy 7, consistent with complex karyotype. Molecular: TP53 + (tier 2) 91.5%, CBL+ Plan: Patient with intermediate or adverse risk disease: Who received prior intensive chemotherapy and whose disease is now in remission Completed no consolidation, some consolidation or a recommended course of consolidation and No allogeneic HCT is planned See Surveillance (AML-10) Maintenance therapy with oral azacitidine until progression or unacceptable toxicity (category 1, preferred for age ?55 y)zz Maintenance therapy with HMA until progression or unacceptable toxicity Azacitidine Decitabine (category 2B Patient is very anxious, and was confused about her diagnosis, prognosis, treatment options. I havea long discussion with her about the current diagnosis, prognosis, and her treatment options. Unfortunately she is complicated past medical history, and significant comorbidities that will be abarrier for intensive chemotherapy for her AML. Also she carries poor prognosis because of TP53 mutation. Received C1 Decitabine and Venetoclax with Inpatient ramp-up from 11/25/23 to 12/08/23 with very complicated hospital course with acute hypoxic respiratory failure, cardiac decompensation requiring HFNC and Lasix drip. Patient did not receive the full 28 d cycle of venetoclax because of her current cardiac condition.I discussed with Dr. Wakefield from inpatient team, who reported that she has experience on venetoclax for 2 weeks only, and repeat bone marrow biopsy in 6 weeks. Patient has bone marrow biopsy ordered to be done in 2 weeks from now which will be 6 weeks from starting her treatment. Decitabine 20 mg/m2 x 5 d (11/25/23- 11/29/23) Venetoclax 100-->200--->400---> 100 x 14 d(11/25/23-12/08/23) Discussed different treatment options including low intense chemotherapy with single agent hypomethylating agent, best supportive care, or hospice. Based on results of repeat bone marrow biopsy that is scheduled in 2 weeks, will discuss further about treatment options. Patient will think about it, and will discuss again next week. She has not sure about her home medications, I requested to bring all her bottles with her next week when I see her again for further discussion. Still have significant cytopenias. Hemoglobin 7.8, WBCs 0.87, platelets 28. She is back on her aspirin. She denied any bleeding. Will continue to monitor her counts and transfuse as needed. Continue aspirin, with close monitoring for any bleeding. Consider palliative referral on her next visit. Will need to follow-up with cardiology as an outpatient (order placed by inpatient team) May need Lasix if worsening CHF, or volume overload from blood transfusions. D/W inpatient team(Dr. Wakefield, and Richard) Education material for AML, and leukemia was printed out and given to the patient for more education about leukemia. Patient appreciated our efforts. In patients with AML with TP53 mutation, a 10-day course of decitabine may be considered (Shine JS,et al. N Engl J Med 2016;375:4183-1409). Response may not be evident before 3-4 cycles of treatmentwith HMAs (ie, azacitidine, decitabine). Continue HMA treatment until progression if patient is tolerating therapy. Similar delays in response are likely with novel agents in a clinical trial, but endpoints will be defined by the protocol. No orders of the defined types were placed in this encounter. This chart was completed in part utilizing [employer] Speech Voice Recognition Software. Grammatical errors, random word insertions, pronoun errors, and incomplete sentences are an occasional consequence of this system due to software limitations, ambient noise, and hardware issues. Any formal questions or concerns about the content, text, or information contained within the body of this dictation should be directly addressed to the provider for clarification. I spent a total time of 120 minutes on the date of service in preparation, delivery, and documentation of the care provided, excluding any time spent in the performance of separately billed services. * Ortega Verde MD - 01/03/2024 9:36 AM EST Images from the original note were not included. 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 Molecular: [...] Decitabine and Venetoclax with Inpatient ramp-up (AML) [id number] ECOG: Performance Status 2 = 60-70% Bedtime, < 50% daytime Interval history: Patient presented to my office today, unaccompanied, for follow-up of her AML. Patient reviewed print out of the education material of AML. She reported shortness of breath last night, and worsening lower extremity edema. Also reported soreness in the inner part of the right cheek. History of present illness (at time of my initial evaluation on 12/31/2023 ): Juany Resendez is a 58 year old female who presented to my office today, unaccompanied, to establish care with spareribs trimmer for her newly diagnosed AML. Patient is a , she lives alone. She lives about 1 hour away from [facility].Currently on disability. Her brother lives 10 minutes away from her. She had history of partial bigtoe amputation, and she started using cane recently. Patient was initially evaluated by Dr. Rice, then by Dr. Senior in [place], then admitted to the hospital, and coming now to [facility] follow-up with me as an outpatient. He had prolonged hospital stay, with the following hospital course 11/24/2023 - 12/28/2023 (34 days) : "ADMISSION HISTORY & PHYSICAL EXAM (focused): Ms. Resendez is a 58 y/o female who lives in [place] by herself. Her PMH includes DM2 on insulin with partial great toe amputation, HTN, dyslipidemia, multinodular goiter s/p total thyroidectomy with resulting postsurgical hypothyroidism, enchondroma femur, paralytic ptosis left eyelid, HTN/CAD s/p PR years ago, s/p ischemic stroke x 2 [...] for last 1 year. She states her nuclear officer is aware of these sx and they [...] as much as possible to help prevent PR. her blood counts dropped as expected and [...] discharged her home with close follow-up at [facility]." Patient is still feel weak [...] DIAGNOSTIC (RECTUM) 12/16/2016 adenomatous polyps, repeat 5 yrs/[facility] COLONOSCOPY, DIAGNOSTIC (RECTUM) 06/03/2022 diverticulosis, fair prep, repeat 5 yrs / [facility] EGD, FLEXIBLE, DIAGNOSTIC 12/16/2016 normal bx/[facility] EGD, FLEXIBLE, W/BIOPSY 07/30/2010 esophagitis, await BX LARYNGOPLASTY MEDIALIZATION UNILATERAL Right 05/28/2020 LARYNGOPLASTY, MEDIALIZATION UNILATERAL performed by Farhat Pate MD at [facility] LARYNGOSCOPY, VOCAL CORD INJECTION Right 11/20/2019 LARYNGOSCOPY DIRECT INJECTION VOCAL CORD WITH MICROSCOPE performed by Amber Jain MD at [facility] MISCELLANEOUS ORDER ([facility] ONLY) Bilateral 11/24/2017 Reinheimer-bleph/levators-ou OTHER s (3 times) 8 inch benign tumor removed from L femur; regrew x 3 OTHER Removal of a benign LN from L axilla REMOVAL OF THYROID GLAND 10/23/2009 total thyroidectomy 10/23/09, [facility], Dr. Vazquez REMOVE CATARACT, INSERT LENS PROSTH Right 07/20/2017 right EXTRACAPSULAR CATARACT REMOVAL WITH INTRAOCULAR LENS performed by Luis Eduardo Cole MD at [facility] REMOVE CATARACT, INSERT LENS PROSTH Left 07/06/2017 left EXTRACAPSULAR CATARACT REMOVAL WITH INTRAOCULAR LENS performed by Luis Eduardo Cole MD at [facility] REMOVE GALLBLADDER 2004 appox date Social [...] mouth in the morning. 180 Capsule 0 SurfkitchenTouch Delica Lancets 33G Use to test blood sugar three times daily E 11.9 300 Each 5 SurfkitchenTouch Verio w/Device Kit Use up to 3 times a day E11.9 1 Kit 0 Pen Omaha 32G X 4 MM Use as directed. [...] day 200 Strip 5 OneTouch Delica Plus [id number] Use as directed. Use when checking blood [...] - 390: 10 units 21 mL 3 No current facility-administered medications for this visit. Review of patient's allergies indicates: Allergen Reactions Tape [Adhesive Tape] Glue off the old style medical tape. Physical exam: Vitals 12/27/2023 12/28/2023 12/29/2023 12/30/2023 12/31/2023 01/03/2024 Vitals BP 97/54 103/46 94/41 100/33 Pulse 58 54 73 67 Resp 16 16 Temp 35.6 C (96.1 F) 36.4 C (97.5 F) 37 C (98.6 F) 36.7 C (98.1 F) SpO2 96 % 100 % 100 % 100 % Weight 185 lb 180 lb 192 lb 4.8 oz 192 lb 8 oz Notes Notes Inpatient Ask-A-Doc Signed Harjeet Villaseñor, Progress Notes Signed Zuri Alejandra [facility] Progress Notes Signed Carolina Gustafson, MICHAELA Progress Notes Signed Carolina Gustafson RN Telephone Encounter Signed Maria R Agosto GILBERT Addendum Note Signed Lenore López PBT Details More values are hidden. Newest values shown. Go to activity for more data. Wt Readings from Last 6 Encounters: 01/03/24 87.3 kg (192 lb 8 oz) 12/31/23 87.2 kg (192 lb 4.8 oz) 12/28/23 81.6 kg (180 lb) 11/23/23 88.9 kg (196 lb) 11/17/23 89.6 kg (197 lb 8 oz) 11/12/23 89.8 kg (198 lb) Patient is comfortable and privacy is respected General: alert and no distress Head: Normocephalic, No masses, lesions, tenderness or abnormalities Mucositis- grage1 Chest exam: Diminished breath sounds on bilateral bases. Lower extremities: Bilateral extremity pitting edema 2+ Labs: Results for orders placed or performed in visit on 01/03/24 TYPE AND SCREEN Result Value Ref Range ABO O Rh Positive Red Blood Cell Antibody Screen Negative Specimen Expiration Date 01/06/2024 23:59 CBC Result Value Ref Range WBC 0.85 (LL) 4.00 - 10.80 K/uL RBC 2.31 3.85 - 5.15 M/uL HGB 6.9 (L) 12.0 - 15.3 g/dL HCT 19.7 (L) 36.0 - 45.2 % MCV 85.3 81.5 - 97.5 fL MCH 29.9 27.0 - 34.0 pg MCHC 35.0 32.0 - 36.0 g/dL RDW 14.0 11.5 - 15.5 % PLT 30 (L) 140 - 400 K/uL MPV 10.8 6.6 - 11.1 fL nRBCs 0 <=0 /100 WBCs DIFFERENTIAL, TECHNOLOGIST REVIEW Result Value Ref Range WBC 0.85 (LL) 4.00 - 10.80 K/uL Lymphocytes % 99.0 (H) 18.0 - 42.0 % Monocytes % 1.0 1.0 - 11.0 % Absolute Lymphocytes 0.84 (L) 1.00 - 4.80 K/uL Absolute Monocytes [...] This exam was submitted to the radiology command and control officer worklist and the ordering provider will [...] loss of RUNX1 or chromosome 21/21q, del 2v24-i88, monosomy 7, consistent with complex karyotype. Molecular: TP53 + (tier 2) 91.5%, CBL+ Mucositis grade 1 Volume overload with bilateral lower extremity edema Pancytopenia Plan: Again, I have a long discussion with her about the current diagnosis, prognosis, and her treatment options. Unfortunately she has complicated past medical history, [...] of venetoclax because of her current cardiac condition.I discussed with Dr. Wakefield from inpatient team, who reported that she has experience in venetoclax for 2 weeks only, and repeat bone marrow biopsy in 6 weeks. Decitabine 20 mg/m2 x 5 d (11/25/23- 11/29/23) Venetoclax 100-->200--->400---> 100 x 14 d(11/25/23-12/08/23) Discussed different treatment options includin- Julio + Decitabine (May be very challenging for her d/t cardiac condition and expected severe pancytopenia) 2- Single agent HMA 3- BSC 4- Palliative/Hospice Bone marrow biopsy scheduled for 01/17/24. Based on results of repeat bone marrow biopsy, will discuss further about treatment options. She brought all her home medications, and we reviewed them together, she is on all her supportive medications as recommended Still have significant cytopenias. Hemoglobin 6.9, WBCs 0.85, platelets 30. She is on aspirin. She denied any bleeding. Will continue to monitor her counts QOD and transfuse as needed. Patient is a cardiac patient, and may have low threshold to transfuse for Hb 7-8, if symptomatic. Continue aspirin, with close monitoring for any bleeding. Palliative consult. D/W palliative team Because of progressive lower extremity edema, shortness of breath, and her need for IV Lasix duringhospitalization, I will start Lasix 20 mg p.o. q.day, with close monitoring of her kidney function. Vanessa swizzle for mucositis I highly recommend follow-up with cardiology, will try to help her to schedule an appointment soon. In patients with AML with TP53 mutation, a 10-day course of decitabine may be considered (Shine MOHAN,et al. N Engl J Med 2016;375:6960-0960). Response may not be evident before 3-4 [...] effects were mainly gastrointestinal symptoms and neutropenia. Axdhvfq-wo-ijye measures were maintained throughout treatment. (Supported by Networked Organisms; QUIRAAR AML-001 ClinicalTrials.gov number, FSY68966802.) Plan Uric Acid Palliative Care Referral Op Vanessa Strong (Rpiwijhsm-Lmkoqllz-Dartrs) oral solution Furosemide 20 MG Oral Tablet (Lasix) New Supportive Care Plan Treatment Ordered By: Hem/Onc --- Protocol: SCP - PACKED RED BLOOD CELLS AND PLATELETS FOR ADULTS REQUIRING FREQUENT TRANSFUSIONS (3 TIMES A WEEK FOR 3 MONTHS) [id number] --- Transfuse 1 unit for Hgb Less than: 7 g/dL --- Tr... Follow Up: Return for folic acid. | For: folic acid | Check-out note: PRBCs transfusion today Please help patient to schedule an appointment with cardiology this week. Palliative referral CBC/DIff, CMP, Type and screen QOD LDH and uric acid weekly RTC with Tasneem as schedule on Wednesday RTC with Mehreen in 7-10 days This chart was completed in part utilizing [employer] Speech Voice Recognition Software. Grammatical errors, random [...] Notes * Ursula Camacho MED ASSIST - 01/03/2024 9:30 AM EST Chief Complaint Patient presents with Follow Up Provider aware of VS. BP 100/33 | Pulse 67 | Temp 36.7 C (98.1 F) (Tympanic) | Wt 87.3 kg (192 lb 8 oz) | LMP 09/08/2016 | SpO2 100% | BMI 29.27 kg/m | BSA 2.05 m Patient was [...] personnel. Patient voiced full comprehension of instructions. PT stated her BP has been running low since she was admitted to [facility] November- December 27. She is not sure why it is running low. documented in this encounter Plan of Treatment Upcoming Encounters Date Type Department Care Team (Late st Contact Info) Description 01/05/2024 8:00 AM EST Laboratory Laboratory, [address] [place] [address] [facility], Lab [address] [place] [id number] 01/05/2024 9:00 AM EST Office Visit Hematology/Oncology , [address], [place] [address] Tasneem Bryant CRNP [address] [place] [address], [place] [address] 01/05/2024 9:30 AM EST Hem/Onc Treatment Hematology/Oncology Treatment, [address], [place] [address] [facility], Chair1 Hem Onc [address] [place] [address], [place] [address] 01/07/2024 10:00 AM EST Office Visit [facility] [address] [place] [facility] [place] [address] Ivonne French PA-C [address] [place] [facility] [place] [address] 01/07/2024 11:30 AM EST Laboratory Laboratory, [address], [place] [address] [facility], Lab [address] [place] [address], [place] [address] 01/07/2024 12:30 PM EST Hem/Onc Treatment Hematology/Oncology Treatment, [address], [place] [address] [facility], Chair4 Hem Onc [address] [place] [address], [place] [address] 01/10/2024 10:30 AM EST Laboratory Laboratory, [address], [place] [address] [facility], Lab [address] [facility] [address] 01/10/2024 11:30 AM EST Telemedicine Hematology/Oncology , [address], [place] [address] Ortega Verde MD [address] [place] [address] Cart, Telemed [facility] Hem Onc Clinic [address] [place] [address] 01/10/2024 12:00 PM EST Hem/Onc Treatment Hematology/Oncology Treatment, [address] [place] [address] [facility], Chair9 Hem Onc [address] [place] [address], [place] [address] 01/10/2024 12:30 PM EST Office Visit Palliative Medicine, [address] 5th Floor [facility], [place] [address] Nati Easley PA-C [address] [place] [address] 01/11/2024 2:30 PM EST Office Visit Cardiology, [facility] [address] [facility] [place] [address] Yadira Al CRNP [address] [place] [address] 01/12/2024 10:30 AM EST Laboratory Laboratory, [address], [place] [phone] [facility], Lab [address] [place] [address], [place] [address] 01/12/2024 11:30 AM EST Hem/Onc Treatment Hematology/Oncology Treatment, [address] [place] [address] [facility], Chair7 Hem Onc [address] [place] [address] [place] [address] 01/14/2024 11:30 AM EST Laboratory Laboratory, [address] [address] [facility], Lab [address] [place] [address] [address] 01/14/2024 12:30 PM EST Hem/Onc Treatment Hematology/Oncology Treatment, [address] [place] [address] [facility], Chair10 Hem Onc [address] [place], [place] [address] [address] 01/17/2024 10:00 AM EDT Hospital Encounter OR [facility], Operating Room, [facility] - 4th Floor [address] [place] [address] [facility], In And Out Surgery [address] [place] [address] 01/17/2024 10:00 AM EDT Appointment Radiology, [address] [place] [address] 01/17/2024 10:00 AM EDT - 01/17/2024 11:00 AM EDT Surgery OR [facility], Operating Room, [facility] - 4th Floor [address] [place] [address] [facility], In And Out Surgery [facility] [place] [address] PRE / POST CARE 01/26/2024 9:00 AM EDT Office Visit Pharmacy, Kathy Aguilera[address] [place] [address] [facility] [address] [place] [address] 01/31/2024 9:00 AM EDT Imaging Radiology [facility] 1st [facility] [address] [place] [address] 02/10/2024 11:40 AM EDT Office Visit Family [facility] [place] [address] [facility] [phone] Ivonne French PA-C [address] [facility] [place] [address] 05/10/2024 8:15 AM EDT Office Visit Ophthalmology, [facility] [address] [place] [address] Migel Ramires MD [address] [place] [address] Scheduled Procedures Name Priority Associated Diagnoses Date/Ti me PRE / POST CARE 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sion (HCC) 01/17/2024 10:00 AM EDT COLONOSCOPY FLEXIBLE PROXIMAL DIAGNOSTIC Recall History of colon polyps Scheduled Referrals Name Type Priority Associated Diagnoses Orde r Schedule PALLIATIVE CARE REFERRAL OP Referral Within 10 days (routine) 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sion (HCC) Ordered: 01/03/2024 Health Maintenance Due Date Last Done Comments [...] 01/21/2022, Additional history exists HbA1c 05/09/2024 11/09/2023, 06/2023, 04/27/2023, Additional history exists Albumin/Creatinine Ratio [...] this encounter Medical Devices Implanted Type Area Records Associate Device Identifier Shelf Expiration Date Model / Serial / Lot Lens Intraoc 21.0 - [id number] - [id number] Implanted:Qty : 1 on 07/06/2017 by Luis Eduardo Cole MD at [facility] Left: Eye [employer]OM[employer] 01/05/2022 [id number] / [id number] / Lens Intraoc 21.0 - [id number] - [id number] Implanted:Qty : 1 on 07/20/2017 by Luis Eduardo Cloe MD at OR [facility] Right: Eye [employer]CH [employer] LOMB 01/05/2022 [id number] / [id number] / Syringe Prolaryn Del 1.0cc - [id number] Implanted:Qty : 1 on 11/20/2019 by Amber Jain MD at OR [facility] Right: Mouth [employer] 10/21/2021 [id number] / / [id number] Implant Silastic 7 Silicone Sw - [id number] Implanted:Qty : 1 on 05/28/2020 by Farhat Pate MD at OR [facility] Right: Throat [employer] [id number] / / documented as of this encounter Results * (ABNORMAL) URIC ACID (01/03/2024 8:33 AM EST) Uric Acid 2.0(L) 2.4 - 5.7 mg/dL 01/03/2024 10:43 AM EST LABORATORY GL Blood Venous blood specimen / Unknown Venipuncture / Unknown 01/03/2024 8:33 AM EST 01/03/2024 8:39 AM EST Ortega Verde MD LAB BLOOD O RDERABLES Performing Organization Address City/State/[facility] Co de Phone Number LABORATORY GL [address] [place] [address] documented in this encounter Visit Diagnoses Diagnosis 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sion (HCC)- Primary Hypervolemia, unspecified hypervolemia type Encounter to discuss test results Other specified counseling Encounter to discuss treatment options Other specified counseling SOB (shortness of breath) Shortness of breath Goals of care, counseling/discussion Other specified counseling Thrombocytopenia (HCC) Thrombocytopenia, unspecified On aspirin at home 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sion [...] the patient have Health Care Power of Laboratory Inspector? No Code Status History Code Status Date [...] and were consensually agreed upon. Care Teams Bioinformatics Computer Scientist Relationship Specialty Start Date End Date Ivonne French PA-C [address] [place] [address] PCP - General Physician Exhaust And Muffler Repairer 07/24/21 documented as of this encounter
--- OUTSIDE RECORDS SUMMARY | 2024-01-29 21:27 | External Medical Summary | Summary of Care ---
Author Name Unknown Organization [facility] Address [address] [place] [address] Phone [phone] Care Team Providers Care Ep Tech Name Role Phone Ivonne French PA-C Primary Care Provider [phone] Reason for Visit * Reason Onset Date Comments Advice 01/04/2024 Mehreen patient. Encounter Details Date Type Department Care Team (Late st Contact Info) Description 01/04/2024 Telephone Hematology/Oncology, [facility] [address] [place] [address] Ortega Verde MD [address] [place] [address] Advice (Mehreen patient./) Allergies Active Allergy Reactions Criticality Noted Date [...] E11.9 1 Kit 0 05/25/2023 Active Pen [place] 32G X 4 MM Use as directed. 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 Use when checking blood [...] encounter Miscellaneous Notes * Telephone Encounter - Constance Perez OSA - 01/04/2024 1:55 PM EST Sent a teams message to the PARS in the [facility] office to see if they can get Juany in this week. On a different note.... I have been trying to reach her all day to discuss the changes that we had to make for tomorrow's schedule for here in Hem/Onc and infusion. * Telephone Encounter - Marialuisa Ny LPN - 01/04/2024 10:25 AM EST Juany calling, states that she has pain all over - legs, neck, back, arms She states that she thinks it's joint pain as it seems to be worse with movement. States she couldn't lay still last night, she was very restless. Did not mention chest pain to me. She hasn't taken anything for pain relief Pain was 7-8/10 and she hasn't slept for 2 days now. States she is feeling overwhelmed Ronald at [facility] is her nutrition assistant and they can't get her in until May [facility] pharmacy never got the script for lasix, the nationwide outage has their system down, I will call this in Also requesting yessy coe go to [facility] which I will call that in as well. Looking for advice on what to take for her pain, she does have an appt w/dagoberto tomorrow. Including her as FYI. Juany: [phone] * Telephone Encounter - Jeannette Oconnor OSA - 01/04/2024 10:22 AM EST What is the reason for call? Joint pain all over body. What Clinic is the patient trying to reach? [facility]- Is the clinic open? Yes- Other: transfer to specialty Call was warm transferred to Marialuisa * Telephone Encounter - Regla Norris PHARM Tech - 01/04/2024 10:15 AM EST Pt calling with complaint of chest pain last night, states pain has improved so far today. Pt states just not feeling well and was told to contact office if not feeling well. Warm transferred to nurse line. Thanks, Regla Norris Taffy Puller [facility] (formerly Tele[facility]) 01/04/2024,10:17 AM documented in this encounter Plan of Treatment Upcoming Encounters Date Type Department Care Team (Late st Contact Info) Description 01/05/2024 8:00 AM EST Laboratory [address], [address] [address] [facility], Lab [address] [place] [address] [place] [address] 01/05/2024 9:00 AM EST Office Visit Hematology/Oncology , [address] [address] Dagoberto Bryant CRNP [address] [place], [place] [address] [address] 01/05/2024 9:30 AM EST Hem/Onc Treatment Hematology/Oncology Treatment, [address] [address] [facility], Chair1 Hem Onc [address] [place], [place] [address] [address] 01/07/2024 10:00 AM EST Office Visit [address] [address] Ivonne French PA-C [address] [place] [address] 01/07/2024 11:30 AM EST Laboratory Laboratory, [address] [address] [facility], Lab [address] [place], [place] [address] [address] 01/07/2024 12:30 PM EST Hem/Onc Treatment Hematology/Oncology Treatment, [address] [place] [address] [facility], Chair4 Hem Onc [address] [place] [address], [place] [address] 01/10/2024 10:30 AM EST Laboratory Laboratory, [address], [place] [phone] [facility], Lab [address] [place] [address], [place] [address] 01/10/2024 11:30 AM EST Telemedicine Hematology/Oncology , [address], [place] [address] Ortega Verde MD [address] [place] [address] Cart, Telemed [facility] Hem Onc Clinic [address] [place] [address], [place] [address] 01/10/2024 12:00 PM EST Hem/Onc Treatment Hematology/Oncology Treatment, [address], [place] [address] [facility], Chair9 Hem Onc [address] [place] [address], [place] [address] 01/10/2024 12:30 PM EST Office Visit Palliative Medicine, [address], [place] [address] Nati Easley PAHanyC [address] [place] [address] 01/12/2024 10:30 AM EST Laboratory Laboratory, [address], [place] [phone] [facility], Lab [address] [place] [address], [place] [address] 01/12/2024 11:30 AM EST Hem/Onc Treatment Hematology/Oncology Treatment, [address] [place] [address] [facility], Chair7 Hem Onc [address] [place], [place] [address] [address] 01/14/2024 11:30 AM EST Laboratory Laboratory, [address] [phone] [facility] [address] [facility] [address] 01/14/2024 12:30 PM EST Hem/Onc Treatment Hematology/Oncology Treatment, [address] [place] [address] [facility], Chair10 Hem Onc [address] [place], [place] [address] [address] 01/17/2024 10:00 AM EDT Hospital Encounter OR [facility], Operating Room, [facility] - 4th Floor [address] [place] [address] [facility], In And Out Surgery [address] [address] 01/17/2024 10:00 AM EDT Appointment Radiology, [address] [place] [address] 01/17/2024 10:00 AM EDT - 01/17/2024 11:00 AM EDT Surgery OR [facility], Operating Room, [facility] - 4th Floor [address] [place] [address] [facility], In And Out Surgery [address] [place] [address] [place] [address] PRE / POST CARE 01/26/2024 9:00 AM EDT Office Visit Pharmacy, [facility] [address] [facility] [place] [address] [facility] [address] [facility] [place] [address] 01/31/2024 9:00 AM EDT Imaging Radiology [facility] 1st [facility] [address] [facility] [place] [address] 02/10/2024 11:40 AM EDT Office Visit Family [facility] [address] [facility] [phone] Ivonne Frecnh PA-C [address] [place] [address] 05/10/2024 8:15 AM EDT Office Visit Ophthalmology, [place] [address] [place] [address] Migel Ramires MD [address] [place] [address] Scheduled Procedures Name Priority Associated Diagnoses Date/Ti [...] 01/21/2022, Additional history exists HbA1c 05/09/2024 11/09/2023, [address]806/2023, 04/27/2023, Additional history exists Albumin/Creatinine Ratio 11/15/2024 [...] this encounter Medical Devices Implanted Type Area [employer] And Silverware Salesperson Device Identifier Shelf Expiration Date Model / Serial / Lot Lens Intraoc 21.0 - [id number] - [id number] Implanted:Qty : 1 on 07/06/2017 by Luis Eduardo Cole MD at [facility] Left: Eye [employer]OM[employer] 01/05/2022 [id number] / [id number] / Lens Intraoc 21.0 - [id number] - [id number] Implanted:Qty : 1 on 07/20/2017 by Luis Eduardo Cole MD at OR [facility] Right: Eye [employer] 01/05/2022 [id number] / [id number] / Syringe Prolaryn Del 1.0cc - [id number] Implanted:Qty : 1 on 11/20/2019 by Amber Jain MD at OR [facility] Right: Mouth [employer] 10/21/2021 [id number] / / [id number] Implant Silastic 7 Silicone Sw - [id number] Implanted:Qty : 1 on 05/28/2020 by Farhat Pate MD at OR [facility] Right: Throat [employer] [id number] / / documented as of this [...] the patient have Health Care Power of Dog Or Horse Racing Official? No Code Status History Code Status Date [...] and were consensually agreed upon. Care Teams Ep Tech Relationship Specialty Start Date End Date Ivonne French PA-C [address] [place] [address] PCP - General Physician Plastic Dolls Mold Filler 07/24/21 documented as of this encounter
--- OUTSIDE RECORDS SUMMARY | 2024-01-29 21:27 | External Medical Summary | Summary of Care ---
Author Name Unknown Organization [facility] Address [address] [place] [facility] [place] [address] Phone [phone] Care Team Providers Care Processing Clerk Name Role Phone Ivonne French PA-C Primary Care Provider [phone] Reason for Visit * Reason Onset Date Comments Scheduling 01/04/2024 URGENT - Please transfer call to [address] [place] [address] - Change in 01/05 schedule. Encounter Details Date Type Department Care Team (Late st Contact Info) Description 01/04/2024 Telephone Hematology/Oncology, [facility] [address] [place] [address] Tasneem Bryant CRNP [address] [place] [address] Scheduling (URGENT - Please transfer [...] E11.9 1 Kit 0 05/25/2023 Active Pen [place] 32G X 4 MM Use as directed. [...] Hour (toPROL XL)Indications:Cor onary artery disease involving [place] coronary artery of [place] heart without angina pectoris Take 2 Tablets [...] Strip 5 12/28/2023 Active OneTouch Delica Plus [id number] Use as directed. Use when checking blood [...] encounter Miscellaneous Notes * Telephone Encounter - Donovan Perez S, GILBERT - 01/04/2024 2:27 PM EST PLEASE MAKE PT AWARE OF EACH OF THESE APPOINTMENTS IF SHE CALLS or transfer her call to Donovan or Charmaine @ ext [phone] Pt is currently scheduled tomorrow (01/05/24) in the [facility] Cardiology Office @ 830 am. I left [...] CALL TO DONOVAN OR CHARMAINE @ EXT [phone] Need pt to have labs draw at 8 am, see Tasneem @ 9 and tent prbc @ 930... Switching spots with other pt to accommodate IR scheduling.... documented in this encounter Plan of Treatment Upcoming Encounters Date Type Department Care Team (Late st Contact Info) Description 01/05/2024 8:30 AM EST Office Visit Cardiology, [facility] [address] [place] [address] Christian Cardenas PA-C [address] [place] [address] 01/05/2024 10:30 AM EST Laboratory Laboratory, [address] [address] [facility], Lab [address] [place] [address] [place] [address] 01/05/2024 11:30 AM EST Office Visit Hematology/Oncology , [address] [place] [address] [facility]em [facility] CRNP [address] [facility] [address] 01/05/2024 12:00 PM EST Hem/Onc Treatment Hematology/Oncology Treatment, [address] [place] [address] [facility], Chair10 Hem Onc [address] [place] [address] 01/07/2024 10:00 AM EST Office Visit [facility] [address] [facility], [place] [address] Ivonne French PA-C [address] [facility], [place] [address] 01/07/2024 11:30 AM EST Laboratory Laboratory, [address] [phone] [facility], Lab [address] [place] [address] 01/07/2024 12:30 PM EST Hem/Onc Treatment Hematology/Oncology Treatment, [address] [place] [address] [facility], Chair4 Hem Onc [address] [place] [address], [place] [address] 01/10/2024 10:30 AM EST Laboratory Laboratory, [address] [place] [address] [facility], Lab [address] [place] [address], [place] [address] 01/10/2024 11:30 AM EST Telemedicine Hematology/Oncology , [address] [address] Ortega Verde MD [address] [facility] [place] [address] Shayla, Telemed [facility] Hem Onc Clinic [address] [place] [address], [place] [address] 01/10/2024 12:00 PM EST Hem/Onc Treatment Hematology/Oncology Treatment, [address], [place] [address] [facility], Chair9 Hem Onc [address] [place] [address], [place] [address] 01/10/2024 12:30 PM EST Office Visit Palliative Medicine, [address], [place] [address] Nati Easley PA-Antoni [address] [place] [address] 01/12/2024 10:30 AM EST Laboratory Laboratory, [address], [place] [address] [facility], Lab [address] [place] [address], [place] [address] 01/12/2024 11:30 AM EST Hem/Onc Treatment Hematology/Oncology Treatment, [address], [place] [address] [facility], Chair7 Hem Onc [address] [place] [address], [place] [address] 01/14/2024 11:30 AM EST Laboratory Laboratory, [address], [place] [address] [facility], Lab [address] [place] [address], [place] [address] 01/14/2024 12:30 PM EST Hem/Onc Treatment Hematology/Oncology Treatment, [address] [place] [address] [facility], Chair10 Hem Onc [address] [place] [address] 01/17/2024 10:00 AM EDT Hospital Encounter OR [facility], Operating Room, [facility] - 4th Floor [address] [place] [address] [facility], In And Out Surgery [address] [place] [address] 01/17/2024 10:00 AM EDT Appointment Radiology, [facility] [address] [place] [address] 01/17/2024 10:00 AM EDT - 01/17/2024 11:00 AM EDT Surgery OR [facility], Operating Room, [facility] - 4th Floor [address] [place] [address] [facility], In And Out Surgery [address] [place] [address] PRE / POST CARE 01/26/2024 9:00 AM EDT Office Visit Pharmacy, [facility] [address] [facility] [place] [address] [facility] [address] [place] [address] 01/31/2024 9:00 AM EDT Imaging Radiology [facility] 1st [facility] [address] [place] [address] 02/10/2024 11:40 AM EDT Office Visit [facility] [address] [facility] [phone] Ivonne French PA-C [address] [facility] [place] [address] 05/10/2024 8:15 AM EDT Office Visit Ophthalmology, [address] [place] [address] Migel Ramires MD [address] [facility] [address] [place] [address] Scheduled Procedures Name Priority Associated Diagnoses Date/Ti [...] this encounter Medical Devices Implanted Type Area Oil Well Service Operator Device Identifier Shelf Expiration Date Model / Serial / Lot Lens Intraoc 21.0 - [id number] - [id number] Implanted:Qty : 1 on 07/06/2017 by Luis Eduardo Cole MD at OR [facility] Left: Eye [employer] 01/05/2022 [id number] / [id number] / Lens Intraoc 21.0 - [id number] - [id number] Implanted:Qty : 1 on 07/20/2017 by Luis Eduardo Cole MD at OR [facility] Right: Eye [employer]OM[employer] 01/05/2022 [id number] / [id number] / Syringe Prolaryn Del 1.0cc - [id number] Implanted:Qty : 1 on 11/20/2019 by Amber Jain MD at OR [facility] Right: Mouth [employer] 10/21/2021 [id number] / / [id number] Implant Silastic 7 Silicone Sw - [id number] Implanted:Qty : 1 on 05/28/2020 by Farhat Pate MD at OR [facility] Right: Throat YouTube [id number] / / documented as of this [...] the patient have Health Care Power of Lump Maker? No Code Status History Code Status [...] and were consensually agreed upon. Care Teams Processing Clerk Relationship Specialty Start Date End Date Ivonne French PA-C [address] [place] [address] PCP - General Physician Label Press Operator 07/24/21 documented as of this encounter
--- OUTSIDE RECORDS SUMMARY | 2024-01-29 21:27 | External Medical Summary | Summary of Care ---
Author Name Unknown Organization [facility] Address [address] [place] [address] Phone [phone] Care Team Providers Care Library Information Technician Name Role Phone Ivonne French PA-C Primary Care Provider [phone] Encounter Details Date Type Department Care Team (Late st Contact Info) Description 01/03/2024 Orders Only Hematology/Oncology Treatment, 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 [...] Hour (toPROL XL)Indications:Cor onary artery disease involving atka coronary artery of atka heart without angina pectoris Take 2 Tablets by mouth daily in the morning. 135 Tablet 1 12/28/2023 Active Acyclovir 400 MG Oral Tablet (Zovirax) Take 1 Tablet by mouth in the morning and 1 Tablet before bedtime. 60 Tablet 3 12/28/2023 Active levoFLOXacin 500 MG Oral Tablet (Levaquin) Take 1 Tablet by mouth daily in the morning. 30 Tablet 1 12/29/2023 Active KettoTouch Verio In Vitro Strip (Glucose Blood) Use when checking blood glucose levels 4 times per day 200 Strip 5 12/28/2023 Active KettoTouch Delica Plus [id number] Use as directed. Use when checking blood [...] encounter Miscellaneous Notes * Addendum Note - Terrie Manrique RN - 01/04/2024 10:54 AM ESTAddended by: TERRIE MANRIQUE on: 01/04/2024 10:54 AM Modules accepted: Orders documented in this encounter Plan of Treatment Upcoming Encounters Date Type Department Care Team (Late st Contact Info) Description 01/05/2024 8:00 AM EST Laboratory Laboratory, [address] [address] [facility], Lab [address] [place], [place] [address] [address] 01/05/2024 9:00 AM EST Office Visit Hematology/Oncology , [address] [address] Tasneem Bryant CRNP [address] [place], [place] [address] [address] 01/05/2024 9:30 AM EST Hem/Onc Treatment Hematology/Oncology Treatment, [address] [address] [facility], Chair1 Hem Onc [address] [place], [place] [address] [address] 01/07/2024 10:00 AM EST Office Visit [address] [phone] Ivonne French PA-C [address] [place] [address] 01/07/2024 11:30 AM EST Laboratory Laboratory, [address] [address] [facility], Lab [address] [place], [place] [address] [address] 01/07/2024 12:30 PM EST Hem/Onc Treatment Hematology/Oncology Treatment, [address] [address] [facility], Chair4 Hem Onc [address] [place] [address] 01/10/2024 10:30 AM EST Laboratory Laboratory, [address] [phone] [facility], Lab [address] [place] [address] 01/10/2024 11:30 AM EST Telemedicine Hematology/Oncology , [address] [address] Ortega Verde MD [address] [place] [address] Cart, Telemed [facility] Hem Onc Clinic [address] [place] [address] 01/10/2024 12:00 PM EST Hem/Onc Treatment Hematology/Oncology Treatment, [address] [address] [facility], Chair9 Hem Onc [address] [place] [address] 01/10/2024 12:30 PM EST Office Visit Palliative Medicine, [address] 5th Floor [place] [address] Nati Easley PAHanyC [address] [place] [address] 01/11/2024 2:30 PM EST Office Visit Cardiology, [facility] [address] [place] [address] Yadira Al CRNP [address] [place] [address] 01/12/2024 10:30 AM EST Laboratory Laboratory, [address], [place] [address] [facility], Lab [address] [facility], [place] [address] 01/12/2024 11:30 AM EST Hem/Onc Treatment Hematology/Oncology Treatment, [address], [place] [address] [facility], Chair7 Hem Onc [address] [place] [address], [place] [address] 01/14/2024 11:30 AM EST Laboratory Laboratory, [address], [place] [address] [facility], Lab [address] [place] [address], [place] [address] 01/14/2024 12:30 PM EST Hem/Onc Treatment Hematology/Oncology Treatment, [address], [place] [address] [facility], Chair10 Hem Onc [address] [place] [address], [place] [address] 01/17/2024 10:00 AM EDT Hospital Encounter OR [facility], Operating Room, [facility] - 4th Floor [address] [place], [place] [address] [address] [facility], In And Out Surgery [address] [place], [place] [address] [address] 01/17/2024 10:00 AM EDT Appointment Radiology, [address] [address] 01/17/2024 10:00 AM EDT - 01/17/2024 11:00 AM EDT Surgery OR [facility], Operating Room, [facility] - 4th Floor [address] [place] [address] [facility], In And Out Surgery [address] [place] [address] PRE / POST CARE 01/26/2024 9:00 AM EDT Office Visit Pharmacy, [facility] [address] [facility] [place] [address] [facility] [address] [facility] [place] [address] 01/31/2024 9:00 AM EDT Imaging Radiology [facility] 1st [facility] [address] [place] [address] 02/10/2024 11:40 AM EDT Office Visit [facility] [address] [facility] [place] [phone] Ivonne French PA-C [address] [place] [address] 05/10/2024 8:15 AM EDT Office Visit Ophthalmology, [address] [place] [address] Migel Ramires MD [address] [place] [address] Scheduled Orders Name Type Priority Associated Diagnoses Orde r Schedule CBC WITH WBC DIFFERENTIAL Lab STAT 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sion (HCC) Every Mon, Wed, Fri for 52 Occurrences starting 01/03/2024 until 01/01/2025 COMPREHENSIVE METABOLIC PANEL Lab STAT 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sion (HCC) Every Mon, Wed, Fri for 52 Occurrences starting 01/03/2024 until 01/01/2025 TYPE AND SCREEN Lab STAT 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sion (HCC) Every Mon, Wed, Fri for 52 Occurrences starting 01/03/2024 until 01/01/2025 LD Lab STAT 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sion (HCC) Every Week for 52 Occurrences starting 01/03/2024 until 01/03/2025 URIC ACID Lab STAT 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sion (HCC) Every Week for 52 Occurrences starting 01/03/2024 until 01/03/2025 CBC WITH WBC DIFFERENTIAL Lab STAT 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sion (HCC) Pancytopenia (HCC) 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) Diabetic mononeuropathy associated with diabetes mellitus due to underlying condition (HCC) Diabetes mellitus (HCC) Hyperthyroidism Thrombocytopenia (HCC) Expected: 01/05/2024 (Approximate), Expires: 01/04/2025 PT INR Lab STAT 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sion (HCC) Pancytopenia (HCC) 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) Diabetic mononeuropathy associated with diabetes mellitus due to underlying condition (HCC) Diabetes mellitus (HCC) Hyperthyroidism Thrombocytopenia (HCC) Expected: 01/05/2024 (Approximate), Expires: 01/04/2025 APTT Lab STAT 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sion (HCC) Pancytopenia (HCC) 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 Left: Eye [employer] 01/05/2022 [id number] / [id number] / Lens Intraoc 21.0 - [id number] - [id number] Implanted:Qty : 1 on 07/20/2017 by Luis Eduardo Cole MD at OR [facility] Right: Eye [employer] 01/05/2022 [id number] / [id number] / Syringe Prolaryn Del 1.0cc - [id number] Implanted:Qty : 1 on 11/20/2019 by Amber Jain MD [place] [facility] Right: Mouth [employer] 10/21/2021 [id number] / / [id number] Implant Silastic 7 Silicone Sw - [id number] Implanted:Qty : 1 on 05/28/2020 by Farhat Pate MD [place] [facility] Right: Throat [employer] [id number] / / documented as of this encounter Visit Diagnoses Diagnosis Acute myeloid leukemia not having achieved remission (HCC)- Primary Pancytopenia (HCC) Other pancytopenia Myelodysplastic disease, not elsewhere classified (HCC) DM type 2 causing neurological disease [...] the patient have Health Care Power of Sales Attendant Building Materials? No Code Status History Code Status Date [...] were consensually agreed upon. Care Teams Library Information Technician Relationship Specialty Start Date End Date Ivonne French PA-C [address] [facility] [place] [address] PCP - General Physician Warehouse Team Member 07/24/21 documented as of this encounter
--- OUTSIDE RECORDS SUMMARY | 2024-01-29 21:27 | External Medical Summary | Summary of Care ---
Author Name Unknown Organization [facility] Address [address] [place] [address] Phone [phone] Care Team Providers Care Winchman/Crane Operator Name Role Phone Ivonne French PA-C Primary Care Provider [phone] [phone] Reason for Visit * Reason Onset Date Comments Scheduling 01/04/2024 URGENT - Please transfer call to [address] [place] [address] - Change in 01/05 schedule. Encounter Details Date Type Department Care Team (Late st Contact Info) Description 01/04/2024 Telephone Hematology/Oncology, [facility] [address] [place] [address] Tasneem Bryant CRNP [address] [place] [address] Scheduling (URGENT - Please transfer [...] E11.9 1 Kit 0 05/25/2023 Active Pen [place] 32G X 4 MM Use as directed. [...] Hour (toPROL XL)Indications:Cor onary artery disease involving igiugig coronary artery of [...] Strip 5 12/28/2023 Active OneTouch Delica Plus [id number] Use as directed. Use when checking blood [...] Notes * Telephone Encounter - Donovan Perez OSA - 01/04/2024 10:18 AM EST URGENT: PLEASE TRANSFER CALL TO DONOVAN OR JANELLE @ EXT [phone] Need pt to have labs draw at 8 am, see Tasneem @ 9 and tal may @ 930... Switching spots with other pt to accommodate IR scheduling.... documented in this encounter Plan of Treatment Upcoming Encounters Date Type Department Care Team (Late st Contact Info) Description 01/05/2024 8:00 AM EST Laboratory Laboratory, [address], [place] [address] [facility], Lab [address] [place] [address] [place] [address] 01/05/2024 9:00 AM EST Office Visit Hematology/Oncology , [address], [place] [address] Tasneem Bryant CRNP [address] [place] [address], [place] [address] 01/05/2024 9:30 AM EST Hem/Onc Treatment Hematology/Oncology Treatment, [address] [address] [facility], Chair1 Hem Onc [address] [place] [address], [place] [address] 01/07/2024 10:00 AM EST Office Visit [address] [phone] Ivonne French PAHanyC [address] [place] [address] 01/07/2024 11:30 AM EST Laboratory Laboratory, [address], [place] [address] [facility], Lab [address] [place] [address], [place] [address] 01/07/2024 12:30 PM EST Hem/Onc Treatment Hematology/Oncology Treatment, [address] [address] [facility], Chair4 Hem Onc [address] [place] [address] [address] 01/10/2024 10:30 AM EST Laboratory Laboratory, [address] [phone] [facility], Lab [address] [place] [address] 01/10/2024 11:30 AM EST Telemedicine Hematology/Oncology , [address] [address] Ortega Verde MD [address] [place] [address] Cart, Telemed [facility] [address] [place] [address] 01/10/2024 12:00 PM EST Hem/Onc Treatment Hematology/Oncology Treatment, [address] [address] [facility], Chair9 Hem Onc [address] [place] [address] 01/10/2024 12:30 PM EST Office Visit Palliative Medicine, [address] 5th [place] [address] Nati Easley PA-C [address] [place] [address] 01/11/2024 2:30 PM EST Office Visit Cardiology, [facility] [address] [place] [address] Yadira Al CRNP [address] [place] [address] 01/12/2024 10:30 AM EST Laboratory Laboratory, [address], [place] [address] [facility], Lab 400 [place] [address] 01/12/2024 11:30 AM EST Hem/Onc Treatment Hematology/Oncology Treatment, [address], [place] [address] [facility], Chair7 Hem Onc [address] [place] [address], [place] [address] 01/14/2024 11:30 AM EST Laboratory Laboratory, [address], [place] [address] [facility], Lab [address] [place] [address], [place] [address] 01/14/2024 12:30 PM EST Hem/Onc Treatment Hematology/Oncology Treatment, [address], [place] [address] [facility], Chair10 Hem Onc [address] [place] [address], [place] [address] 01/17/2024 10:00 AM EDT Hospital Encounter OR [facility], Operating Room, [facility] - 4th Floor [address] [place] [address], [place] [address] [facility], In And Out Surgery [address] [place], [place] [address] [address] 01/17/2024 10:00 AM EDT Appointment Radiology, [address], [place] [address] 01/17/2024 10:00 AM EDT - 01/17/2024 11:00 AM EDT Surgery OR [facility], Operating Room, [facility] - 4th Floor [address] [place] [address] [facility], In And Out Surgery [address] [place] [address] PRE / POST CARE 01/26/2024 9:00 AM EDT Office Visit Pharmacy, [facility] 132 [facility] [place] [address] [facility] 132 [facility] [place] [address] 01/31/2024 9:00 AM EDT Imaging Radiology [facility]st [facility] [address] [place] [address] 02/10/2024 11:40 AM EDT Office Visit [facility] [address] [facility] [place] [phone] Ivonne French PA-C [address] [place] [address] 05/10/2024 8:15 AM EDT Office Visit Ophthalmology, [place] 21 [place] [address] Migel Ramires MD 21 [place] [address] Scheduled Procedures Name Priority Associated Diagnoses Date/Ti [...] this encounter Medical Devices Implanted Type Area Fish Protector Device Identifier Shelf Expiration Date Model / Serial / Lot Lens Intraoc 21.0 - [id number] - [id number] Implanted:Qty : 1 on 07/06/2017 by Luis Eduardo Cole MD at [facility] Left: Eye BAUSCH [employer] LOMB 01/05/2022 [id number] / [id number] / Lens Intraoc 21.0 - [id number] - [id number] Implanted:Qty : 1 on 07/20/2017 by Luis Eduardo Cole MD at OR [facility] Right: Eye BAUSCH [employer] LOMB 01/05/2022 [id number] / [id number] / Syringe Prolaryn Del 1.0cc - [id number] Implanted:Qty : 1 on 11/20/2019 by Amber Jain [place] [facility] [place]: Mouth [employer] 10/21/2021 [id number] / / [id number] Implant Silastic 7 Silicone Sw - [id number] Implanted:Qty : 1 on 05/28/2020 by Farhat Pate MD [place] [facility] [place]: Throat [employer] [id number] / / documented as of this [...] the patient have Health Care Power of Making Department Preparer? No Code Status History Code Status Date [...] and were consensually agreed upon. Care Teams Winchman/Crane Operator Relationship Specialty Start Date End Date Ivonne French PA-C [address] [place] [address] [place] [address] PCP - General Physician Embossing Clerk 07/24/21 documented as of this encounter
--- OUTSIDE RECORDS SUMMARY | 2024-01-29 21:27 | External Medical Summary | Summary of Care ---
Author Name Unknown Organization [facility] Address [address] [place] [address] Phone [phone] Care Team Providers Care Non Licensed Nuclear Plant Operator Name Role Phone Ivonne French PA-C Primary Care Provider [phone] [phone] Reason for Visit * Reason Onset Date Comments Advice 01/04/2024 Mehreen patient. Encounter Details Date Type Department Care Team (Late st Contact Info) Description 01/04/2024 Telephone Hematology/Oncology, [facility] [address] [place] [address] Ortega Verde MD [address] [place] [address] Advice (Mehreen patient./) Allergies Active [...] E11.9 1 Kit 0 05/25/2023 Active Pen [place] 32G X 4 MM Use as directed. 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 Use when checking blood [...] Miscellaneous Notes * Telephone Encounter - Constance Perez, GILBERT - 01/04/2024 2:24 PM EST Pt is currently scheduled tomorrow (01/05/24) in the [facility] Cardiology Office @ 830 am. I [...] her at all. * Telephone Encounter - Constance Peerz OSA - 01/04/2024 1:55 PM EST Sent a teams message to the PARS in the [facility] Cardiology office to see if they can [...] States she is feeling overwhelmed Ronald at [facility] is her processing mgr and they can't get her in until May [facility] pharmacy never got the script for lasix, the nationwide outage has their system down, I will call this in Also requesting yessy coe go to [facility] which I will call that in as well. Looking for advice on what to take for her pain, she does have an appt w/dagoberto tomorrow. Including her as FYI. Juany: [phone] * Telephone Encounter - Jeannette Oconnor OSA [...] feeling well. Warm transferred to nurse line. ThanksRegla Ironing Worker [facility] ([facility]) (formerly Telepharmacy) 01/04/2024,10:17 AM documented in this encounter Plan of Treatment Upcoming Encounters Date Type Department Care Team (Late st Contact Info) Description 01/05/2024 8:30 AM EST Office Visit Cardiology, [facility] [address] [place] [address] Christian Cardenas PA-C [address] [place] [address] 01/05/2024 10:30 AM EST Laboratory Laboratory, [address] [place] [address] [facility], Lab [address] [place], [place] [address] [address] 01/05/2024 11:30 AM EST Office Visit Hematology/Oncology , [address] [place] [address] Dagoberto Bryant CRNP 400 [facility] [address] 01/05/2024 12:00 PM EST Hem/Onc Treatment Hematology/Oncology Treatment, [address] [place] [address] [facility], Chair10 Hem Onc [address] [place] [address], [place] [address] 01/07/2024 10:00 AM EST Office Visit [facility] [address] [facility], [place] [address] Ivonne French PA-C [address] [facility], [place] [address] 01/07/2024 11:30 AM EST Laboratory Laboratory, [address], [place] [phone] [facility], Lab [address] [place] [address], [place] [address] 01/07/2024 12:30 PM EST Hem/Onc Treatment Hematology/Oncology Treatment, [address], [place] [address] [facility], Chair4 Hem Onc [address] [place] [address], [place] [address] 01/10/2024 10:30 AM EST Laboratory Laboratory, [address] [phone] [facility], Lab [address] [place] [address], [place] [address] 01/10/2024 11:30 AM EST Telemedicine Hematology/Oncology , [address], [place] [address] Ortega Verde MD [address] [facility] [address] Shayla Telemed [facility] Hem Onc Clinic [address] [place], [place] [address] [address] 01/10/2024 12:00 PM EST Hem/Onc Treatment Hematology/Oncology Treatment, [address], [place] [address] [facility], Chair9 Hem Onc [address] [place] [address], [place] [address] 01/10/2024 12:30 PM EST Office Visit Palliative Medicine, [address], [place] [address] Nati Easley PACuong [address] [place] [address] [place] [address] 01/12/2024 10:30 AM EST Laboratory Laboratory, [address], [place] [address] [facility], Lab [address] [place] [address], [place] [address] 01/12/2024 11:30 AM EST Hem/Onc Treatment Hematology/Oncology Treatment, [address], [place] [address] [facility], Chair7 Hem Onc [address] [place] [address], [place] [address] 01/14/2024 11:30 AM EST Laboratory Laboratory, [address], [place] [address] [facility], Lab [address] [place] [address], [place] [address] 01/14/2024 12:30 PM EST Hem/Onc Treatment Hematology/Oncology Treatment, [address], [place] [address] [facility], Chair10 Hem Onc 400 [place] [address] 01/17/2024 10:00 AM EDT Hospital Encounter OR [facility], Operating Room, [facility] - 4th Floor 400 [place] [address] [facility], In And Out Surgery 400 [place] [address] 01/17/2024 10:00 AM EDT Appointment Radiology, [facility] 400 [place] [address] 01/17/2024 10:00 AM EDT - 01/17/2024 11:00 AM EDT Surgery OR [facility], Operating Room, [facility] - 4th Floor 400 [place] [address] [facility], In And Out Surgery [address] [place] [address] PRE / POST CARE 01/26/2024 9:00 AM EDT Office Visit Pharmacy, [facility] 132 [facility] [place] [address] [facility] [address] [place] [address] 01/31/2024 9:00 AM EDT Imaging Radiology [facility] 1st [facility] 132 [facility] [place] [address] 02/10/2024 11:40 AM EDT Office Visit [facility] [address] [place] [phone] Ivonne French PA-C [address] [place] [address] 05/10/2024 8:15 AM EDT Office Visit Ophthalmology, [place] 21 [facility] [place] [address] Migel Ramires MD 21 [facility] [place] [address] Scheduled Procedures Name Priority Associated Diagnoses Date/Ti [...] this encounter Medical Devices Implanted Type Area Investigation Division Lieutenant Device Identifier Shelf Expiration Date Model / Serial / Lot Lens Intraoc 21.0 - [id number] - [id number] Implanted:Qty : 1 on 07/06/2017 by Luis Eduardo Cole MD at OR [facility] Left: Eye BAUSCH [employer] LOMB 01/05/2022 [id number] / [id number] / Lens Intraoc 21.0 - [id number] - [id number] Implanted:Qty : 1 on 07/20/2017 by Luis Eduardo Cole MD at OR [facility] Right: Eye BAUSCH & LOMB 01/05/2022 [id number] / [id number] / Syringe Prolaryn Del 1.0cc - [id number] Implanted:Qty : 1 on 11/20/2019 by Amber Jain MD at OR [facility] Right: Mouth [employer] 10/21/2021 [id number] / / [id number] Implant Silastic 7 Silicone Sw - [id number] Implanted:Qty : 1 on 05/28/2020 by Farhat Pate MD at OR [facility] Right: Throat [employer] [id number] / / documented as of this [...] the patient have Health Care Power of House Wrecker? No Code Status History Code Status Date [...] and were consensually agreed upon. Care Teams Non Licensed Nuclear Plant Operator Relationship Specialty Start Date End Date Ivonne French PA-C [address] [address] PCP - General Physician Lag Screwer 07/24/21 documented as of this encounter
--- OUTSIDE RECORDS SUMMARY | 2024-01-29 21:27 | External Medical Summary | Summary of Care ---
Author Name Unknown Organization [facility] Address [address] [place] [address] Phone [phone] Care Team Providers Care Hemstitching Machine Operator Name Role Phone Ivonne French PA-C Primary Care Provider +[phone] Reason for Visit * Reason Onset Date Comments Scheduling 12/31/2023 Encounter Details Date Type Department Care Team (Late st Contact Info) Description 12/31/2023 Telephone Interventional Radiology, [facility] [address] [place] [address] Richard Moreira PA-C [address] [place] [address] Scheduling Allergies Active Allergy Reactions [...] E11.9 1 Kit 0 05/25/2023 Active Pen [place] 32G X 4 MM Use as [...] Hour (toPROL XL)Indications:Craig nary artery disease involving [place] coronary artery of [place] heart without angina pectoris Take 2 Tablets [...] per day 200 Strip 5 12/28/2023 Active Takeda CambridgeTouch Delica Plus [id number] Use as directed. Use when checking blood [...] the Bone Marrow Biopsy for 01/[address] [facility]. Patient identified by: name/birthdate Person taught: Patient METHOD: Lecture-telephone interview Patient Preferred Learning Methods: Lecture-Telephone interview PATIENT INSTRUCTIONS GIVEN: - General Preoperative Instructions Reviewed - NPO Instructions Reviewed, pt to stop eating 8 hours prior to procedure and stop drinking 2 hoursprior to procedure. -Sustainability Specialist required Location and check-in instructions Verbalizes understanding [...] Description 01/05/2024 8:00 AM EST Laboratory Laboratory, [address] [place] [phone] [facility], Lab [address] [place], [place] [address] [address] 01/05/2024 9:00 AM EST Office Visit Hematology/Oncology , [address], [place] [address] Tasneem Bryant CRNP [address] [place] [address], [place] [address] 01/05/2024 9:30 AM EST Hem/Onc Treatment Hematology/Oncology Treatment, [address], [place] [address] [facility], Chair1 Hem Onc [address] [place] [address], [place] [address] 01/07/2024 10:00 AM EST Office Visit [facility] [address] [place] [address] Ivonne French PAHanyC [address] [place] [address] 01/07/2024 11:30 AM EST Laboratory Laboratory, [address], [place] [address] [facility], Lab [address] [place] [address], [place] [address] 01/07/2024 12:30 PM EST Hem/Onc Treatment Hematology/Oncology Treatment, [address], [place] [address] [facility], Chair4 Hem Onc [address] [place] [address], [place] [address] 01/10/2024 10:30 AM EST Laboratory Laboratory, [address] [phone] [facility], Lab [address] [place] [address] 01/10/2024 11:30 AM EST Telemedicine Hematology/Oncology , [address] [address] Ortega Verde MD [address] [facility] [place] [address] Shayla, Telemed [facility] Hem Onc Clinic [address] [place] [address] 01/10/2024 12:00 PM EST Hem/Onc Treatment Hematology/Oncology Treatment, [address] [address] [facility], Chair9 Hem Onc [address] [place] [address] 01/10/2024 12:30 PM EST Office Visit Palliative Medicine, [address] 5th [place] [address] Nati Easley PA-C [address] [place] [address] 01/11/2024 2:30 PM EST Office Visit Cardiology, [facility] [address] [place] [address] Yadira Al CRNP [address] [place] [address] 01/12/2024 10:30 AM EST Laboratory Laboratory, [address] [phone] [facility], Lab 400 [facility] [address] 01/12/2024 11:30 AM EST Hem/Onc Treatment Hematology/Oncology Treatment, [address] [address] [facility], Chair7 Hem Onc [address] [place], [place] [address] [address] 01/14/2024 11:30 AM EST Laboratory Laboratory, [address] [address] [facility], Lab 400 [facility] [address] 01/14/2024 12:30 PM EST Hem/Onc Treatment Hematology/Oncology Treatment, [address] [place] [address] [facility], Chair10 Hem Onc [address] [place], [place] [address] [address] 01/17/2024 10:00 AM EDT Hospital Encounter OR [facility], Operating Room, [facility] - 4th Floor [address] [place] [address] [place] [address] [facility], In And Out Surgery 400 [place] [address] 01/17/2024 10:00 AM EDT Appointment Radiology, [address] [place] [address] 01/17/2024 10:00 AM EDT - 01/17/2024 11:00 AM EDT Surgery OR [facility], Operating Room, [facility] - 4th Floor [address] [place] [address] [place] [address] [facility], In And Out Surgery [address] [place] [address] [place] [address] PRE / POST CARE 01/26/2024 9:00 AM EDT Office Visit Pharmacy, [facility] 132 [facility] [place] [address] [facility] 132 [facility] [place] [address] 01/31/2024 9:00 AM EDT Imaging Radiology [facility] 1st [facility] [place] [address] 02/10/2024 11:40 AM EDT Office Visit Family [facility] [address] [facility] [place] [phone] Ivonne French PA-C [address] [place] [address] 05/10/2024 8:15 AM EDT Office Visit Ophthalmology, [place] 21 [place] [address] Migel Ramires MD 21 [place] [address] Scheduled Procedures Name Priority Associated Diagnoses Date/Ti [...] 07/03/2020, Additional history exists B-12 12/25/2023 12/25/2022, 0606/2022, 07/23/2021, Additional history exists Mammogram 01/28/2024 01/27/2023, [...] this encounter Medical Devices Implanted Type Area Electrical Unit Rebuilder Device Identifier Shelf Expiration Date Model / Serial / Lot Lens Intraoc 21.0 - [id number] - [id number] Implanted:Qty : 1 on 07/06/2017 by Luis Eduardo Cole MD at [facility] Left: Eye [employer]OMB 01/05/2022 [id number] / [id number] / Lens Intraoc 21.0 - [id number] - [id number] Implanted:Qty : 1 on 07/20/2017 by Luis Eduardo Cole MD at OR [facility] Right: Eye [employer] 01/05/2022 [id number] / [id number] / Syringe Prolaryn Del 1.0cc - [id number] Implanted:Qty : 1 on 11/20/2019 by Amber Jain MD [place] [facility] [place]: Mouth [employer] 10/21/2021 [id number] / / [id number] Implant Silastic 7 Silicone Sw - [id number] Implanted:Qty : 1 on 05/28/2020 by Farhat Pate MD [place] [facility] [place]: Throat [employer] [id number] / / documented as of this [...] the patient have Health Care Power of Uranium Processing Supervisor? No Code Status History Code Status [...] and were consensually agreed upon. Care Teams Hemstitching Machine Operator Relationship Specialty Start Date End Date Ivonne French PA-C [address] [place] [address] PCP - General Physician Millinery Teacher 07/24/21 documented as of this encounter
--- OUTSIDE RECORDS SUMMARY | 2024-01-29 21:27 | External Medical Summary | Summary of Care ---
Author Name Unknown Organization [facility] Address [address] [place] [address] Phone [phone] Care Team Providers Care Farm Mortgage Agent Name Role Phone Ivonne French PA-C Primary Care Provider [phone] Reason for Visit * Reason Onset Date Comments Advice 01/04/2024 Mehreen patient. Encounter Details Date Type Department Care Team (Late st Contact Info) Description 01/04/2024 Telephone Hematology/Oncology, [facility] [address] [place] [address] Ortega Verde MD [address] [place] [address] Advice (Mehreen patient./) Allergies Active [...] E11.9 1 Kit 0 05/25/2023 Active Pen [place] 32G X 4 MM Use as directed. [...] Hour (toPROL XL)Indications:Craig nary artery disease involving rampart coronary artery of rampart heart without angina pectoris Take 2 Tablets by mouth daily in the morning. 135 Tablet 1 12/28/2023 Active Acyclovir 400 MG Oral Tablet (Zovirax) Take 1 Tablet by mouth in the morning and 1 Tablet before bedtime. 60 Tablet 3 12/28/2023 Active levoFLOXacin 500 MG Oral Tablet (Levaquin) Take 1 Tablet by mouth daily in the morning. 30 Tablet 1 12/29/2023 Active SmartMenuCardTouch Verio In Vitro Strip (Glucose Blood) Use when checking blood glucose levels 4 times per day 200 Strip 5 12/28/2023 Active SmartMenuCardTouch Delica Plus [id number] Use as directed. Use when checking blood [...] mL before bedtime. 300 mL 1 01/03/2024 Active Furosemide 20 MG Oral Tablet (Lasix)Indications: Acute myeloid leukemia not having achieved remission (HCC),Hypervolemia, unspecified hypervolemia type Take 1 Tablet by mouth in the morning. 90 Tablet 0 01/03/2024 Active documented as of this encounter (statuses [...] Miscellaneous Notes * Telephone Encounter - Marialuisa Ny, LUI - 01/04/2024 10:25 AM EST Juany delgado, states that she has pain all over - legs, neck, back, arms She states that she thinks it's joint pain as it seems to be worse with movement. States she couldn't lay still last night, she was very restless She hasn't taken anything for pain relief Pain was 10/10 and she hasn't slept for 2 days now. States she is feeling overwhelmed Ronald at [facility] is her automotive engineering teacher and they can't get her in until May [facility] pharmacy never got the script for lasix, the nationwide outage has their system down, I will call this in Also requesting yessy coe go to [facility] which I will call that in as well. Looking for advice on what to take for her pain, she does have an appt w/dagoberto tomorrow. Including her as FYI. Juany: [phone] * Telephone Encounter - Jeannette Oconnor OSA [...] transferred to nurse line. Thanks, Regla Norris Sales Receptionist [facility] Services (CCPS) (formerly Telepharmacy) 01/04/2024,10:17 AM documented in this encounter Plan of Treatment Upcoming Encounters Date Type Department Care Team (Late st Contact Info) Description 01/05/2024 8:00 AM EST Laboratory Laboratory, [address] [place] [address] [facility], Lab [address] [place] [address] [place] [address] 01/05/2024 9:00 AM EST Office Visit Hematology/Oncology , [address] [place] [address] Dagoberto Bryant CRNP [address] [place] [address], [place] [address] 01/05/2024 9:30 AM EST Hem/Onc Treatment Hematology/Oncology Treatment, [address], [place] [address] [facility], Chair1 Hem Onc [address] [place] [address], [place] [address] 01/07/2024 10:00 AM EST [facility] [address] [facility], [place] [phone] Ivonne French PA-C [address] [facility], [place] [address] 01/07/2024 11:30 AM EST Laboratory Laboratory, [address], [place] [address] [facility], Lab [address] [place] [address], [place] [address] 01/07/2024 12:30 PM EST Hem/Onc Treatment Hematology/Oncology Treatment, [address], [place] [address] [facility], Chair4 Hem Onc [address] [place] [address], [place] [address] 01/10/2024 10:30 AM EST Laboratory Laboratory, [address], [place] [address] [facility], Lab [address] [place] [address], [place] [address] 01/10/2024 11:30 AM EST Telemedicine Hematology/Oncology , [address] [address] Ortega Verde MD [address] [facility] [place] [address] Shayla, Telemed [facility] Hem Onc Clinic [address] [place] [address] [place] [address] 01/10/2024 12:00 PM EST Hem/Onc Treatment Hematology/Oncology Treatment, [address] [address] [facility], Chair9 Hem Onc [address] [place] [address] 01/10/2024 12:30 PM EST Office Visit Palliative Medicine, [address] [place] [address] Nati Easley PA-C [address] [place] [address] 01/11/2024 2:30 PM EST Office Visit Cardiology, [facility] [address] [facility] [place] [address] Yadira Al CRNP [address] [place] [address] 01/12/2024 10:30 AM EST Laboratory Laboratory, [address] [phone] [facility], Lab [address] [place] [address] [place] [address] 01/12/2024 11:30 AM EST Hem/Onc Treatment Hematology/Oncology Treatment, [address] [address] [facility], Chair7 Hem Onc [facility] [address] 01/14/2024 11:30 AM EST Laboratory Laboratory, [address] [address] [facility], Lab [address] [facility], [place] [address] 01/14/2024 12:30 PM EST Hem/Onc Treatment Hematology/Oncology Treatment, [address] [place] [address] [facility], Chair10 Hem Onc [address] [place] [address] [address] 01/17/2024 10:00 AM EDT Hospital Encounter OR [facility], Operating Room, [facility] - 4th Floor [address] [place] [address] [facility], In And Out Surgery [address] [place] [address] 01/17/2024 10:00 AM EDT Appointment Radiology, [address] [place] [address] 01/17/2024 10:00 AM EDT - 01/17/2024 11:00 AM EDT Surgery OR [facility], Operating Room, [facility] Floor [address] [facility] [place] [address] [facility], In And Out Surgery [address] [place], [place] [address] [address] PRE / POST CARE 01/26/2024 9:00 AM EDT [facility] [address] [place] [address] [facility] [address] [place] [address] 01/31/2024 9:00 AM EDT Imaging Radiology [facility] 1st [facility] [place] 132 [facility] [place] [address] 02/10/2024 11:40 AM EDT Office Visit Family Practice, [facility] [address] [facility] [address] Ivonne French PA-C [address] [facility] [place] [address] 05/10/2024 8:15 AM EDT Office Visit Ophthalmology, [place] [address] [place] [address] Migel Ramires MD [address] [place] [address] Scheduled Procedures Name Priority Associated Diagnoses Date/Ti [...] this encounter Medical Devices Implanted Type Area Reimbursement Counselor Device Identifier Shelf Expiration Date Model / Serial / Lot Lens Intraoc 21.0 - [id number] - [id number] Implanted:Qty : 1 on 07/06/2017 by Luis Eduardo Cole MD at OR [facility] Left: Eye [employer] 01/05/2022 [id number] / [id number] / Lens Intraoc 21.0 - [id number] - [id number] Implanted:Qty : 1 on 07/20/2017 by Luis Eduardo Cole MD at OR [facility] Right: Eye [employer] 01/05/2022 [id number] / [id number] / Syringe Prolaryn Del 1.0cc - [id number] Implanted:Qty : 1 on 11/20/2019 [place] Amber J[place] [facility] [place] Mouth [employer] 10/21/2021 [id number] / / [id number] Implant Silastic 7 Silicone - [id number] Implanted:Qty : 1 on 05/28/2020 by Farhat Pate [place] [facility] [place]: Throat [employer] [id number] / / documented as of [...] the patient have Health Care Power of Forestry Faculty Member? No Code Status History Code Status Date [...] and were consensually agreed upon. Care Teams Farm Mortgage Agent Relationship Specialty Start Date End Date Ivonne French PA-C [address] [place] [address] PCP - General Physician Materials And Processes Manager 07/24/21 documented as of this encounter
--- OUTSIDE RECORDS SUMMARY | 2024-01-29 21:27 | External Medical Summary | Summary of Care ---
Author Name Unknown Organization [facility] Address [address] [place] [address] Phone [phone] Care Team Providers Care Hearing Impaired Teacher Name Role Phone Ivonne French PA-C Primary Care Provider [phone] Reason for Visit * Reason Onset Date Comments Other 01/04/2024 Encounter Details Date Type Department Care Team (Late st Contact Info) Description 01/04/2024 Telephone Hematology Oncology [facility] [address] [place] [address] Ortega Verde MD [address] [place] [address] Other Allergies Active Allergy Reactions Criticality Noted [...] E11.9 1 Kit 0 05/25/2023 Active Pen [place] 32G X 4 MM Use as directed. 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 Use when checking blood [...] before bedtime. 300 mL 1 01/04/2024 Active Magic Swizzle (Lidocaine-Benadry l-Maalox) oral solutionIndication [...] encounter Miscellaneous Notes * Addendum Note - Umm Reynaga RPh - 01/04/2024 10:36 AM ESTAddended by: UMM REYNAGA on: 01/04/2024 10:36 AM Modules accepted: Orders * Telephone Encounter - Umm Reynaga [facility] - 01/04/2024 10:22 AM EST Called script for magic swizzle in to [facility] per request as verbally as compounds do not e-scribe. Thanks, Umm Reynaga [facility] Clinical Pharmacist Centralized Clinical Pharmacy Services (CCPS) (Formerly Telepharmacy) [phone] * Addendum Note - Sly Jacobsen dry can tender - 01/04/2024 10:14 AM ESTAddended by: SLY JACOBSEN on: 01/04/2024 10:14 AM Modules accepted: Orders * Telephone Encounter - Sly Jacobsen dry can tender - 01/04/2024 10:13 AM EST Please reroute Rx to [facility] Pending Prescriptions: Disp Refills Magic Swizzle (Bigetcovs-Lhhodswu-Svksse)*300 mL 1 Sig: Swish and spit 15 mL in the morning and 15 mL at noon and 15 mL before bedtime. Last Visit: 11/23/2023 (in office), Visit date not found (telemedicine) Visit date not found If no future appointments scheduled, and last appointment is greater than a year ago, please schedule patient for a follow-up appointment Last date the medication was ordered: 01/03/2024 Patient Phone Numbers Labs: Lab Results Component Value Date/Time CREAT 1.1 (H) 12/31/2023 07:45 AM CREAT 0.8 10/14/2020 12:10 PM POTASSIUM 4.4 12/31/2023 07:45 AM POTASSIUM 4.8 10/14/2020 12:10 PM TSH 0.75 12/12/2023 07:14 AM TSH 1.14 10/14/2020 12:10 PM LDLCALC 49 07/23/2021 08:43 AM LDLCALC 82 07/15/2016 12:38 PM LDLDIRECT 142 (H) 11/15/2023 01:05 PM LDLDIRECT 78 10/14/2020 12:10 PM LDLDIRECT 72 07/20/2018 01:52 PM ALT 106 (H) 12/31/2023 07:45 AM ALT 26 05/25/2020 09:44 AM HGBA1C 10.7 (H) 11/09/2023 03:17 PM HGBA1C 10.9 (H) 10/14/2020 12:10 PM * Telephone Encounter - Fernanda Olson CPhT - 01/04/2024 10:11 AM EST Hem/Onc call transferred Thank you, Fernanda Olson CPhT [employer] Central[facility] Clinical Pharmacy Services (CCPS)(formerly telepharmacy) 01/04/2024,10:11 AM documented in this encounter Plan of Treatment Upcoming Encounters Date Type Department Care Team (Late st Contact Info) Description 01/05/2024 8:00 AM EST Laboratory Laboratory, [address] [place] [address] [facility], Lab [address] [place], [place] [address] [address] 01/05/2024 9:00 AM EST Office Visit Hematology/Oncology , [address] [place] [address] Tasneem Bryant CRNP [address] [facility] [place] [address] 01/05/2024 9:30 AM EST Hem/Onc Treatment Hematology/Oncology Treatment, [address] [place] [address] [facility], Chair1 Hem Onc [address] [place] [address], [place] [address] 01/07/2024 10:00 AM EST Office Visit [facility] [address] [facility], [place] [address] Ivonne French PA-C [address] [facility], [place] [address] 01/07/2024 11:30 AM EST Laboratory Laboratory, [address], [place] [phone] [facility], Lab [address] [place] [address], [place] [address] 01/07/2024 12:30 PM EST Hem/Onc Treatment Hematology/Oncology Treatment, [address], [place] [address] [facility], Chair4 Hem Onc [address] [place] [address], [place] [address] 01/10/2024 10:30 AM EST Laboratory Laboratory, [address], [place] [address] [facility], Lab [address] [place] [address], [place] [address] 01/10/2024 11:30 AM EST Telemedicine Hematology/Oncology , [address], [place] [address] Ortega Verde MD [address] [facility] [address] Alexandra Mcguireed [facility] Hem Onc Clinic [address] [place], [place] [address] [address] 01/10/2024 12:00 PM EST Hem/Onc Treatment Hematology/Oncology Treatment, [address], [place] [address] [facility], Chair9 Hem Onc [address] [place], [place] [address] [address] 01/10/2024 12:30 PM EST Office Visit Palliative Medicine, [address] [place] [address] Nati Easley PA-C [address] [place] [address] [place] [address] 01/11/2024 2:30 PM EST Office Visit Cardiology, [facility] [address] [place] [address] Yadira Al CRNP [address] [place] [address] 01/12/2024 10:30 AM EST Laboratory Laboratory, [address] [address] [facility], Lab [address] [place], [place] [address] [address] 01/12/2024 11:30 AM EST Hem/Onc Treatment Hematology/Oncology Treatment, [address] [address] [facility], Chair7 Hem Onc [address] [place], [place] [address] [address] 01/14/2024 11:30 AM EST Laboratory Laboratory, [address] [address] [facility], Lab [address] [place] [address] 01/14/2024 12:30 PM EST Hem/Onc Treatment Hematology/Oncology Treatment, [facility] [address] [place] [address] [facility], Chair10 Hem Onc [address] [facility] [place] [address] 01/17/2024 10:00 AM EDT Hospital Encounter OR [facility], Operating Room, [facility] - 4th Floor [address] [place] [address] [facility], In And Out Surgery [address] [place] [address] 01/17/2024 10:00 AM EDT Appointment Radiology, [facility] [address] [place] [address] 01/17/2024 10:00 AM EDT - 01/17/2024 11:00 AM EDT Surgery OR [facility], Operating Room, [facility] - 4th Floor [address] [place] [address] [facility], In And Out Surgery [address] [address] PRE / POST CARE 01/26/2024 9:00 AM EDT Office Visit Pharmacy, [facility] [address] [place] [address] [facility] [address] [place] [address] 01/31/2024 9:00 AM EDT Imaging Radiology [facility] 1st [facility] [address] [place] [address] 02/10/2024 11:40 AM EDT Office Visit [address] [facility] [phone] Ivonne French PAHanyC [address] [facility] [address] 05/10/2024 8:15 AM EDT Office Visit Ophthalmology, [place] [address] [place] [address] Migel Ramires MD [address] [place] [address] Scheduled Procedures Name Priority Associated Diagnoses Date/Ti [...] this encounter Medical Devices Implanted Type Area Local Bulk Driver Device Identifier Shelf Expiration Date Model / Serial / Lot Lens Intraoc 21.0 - [id number] - [id number] Implanted:Qty : 1 on 07/06/2017 by Luis Eduardo Cole MD at OR [facility] Left: Eye [employer] 01/05/2022 [id number] / [id number] / Lens Intraoc 21.0 - [id number] - [id number] Implanted:Qty : 1 on 07/20/2017 by Luis Eduardo Cole MD at OR [facility] Right: Eye [employer] 01/05/2022 [id number] / [id number] / Syringe Prolaryn Del 1.0cc - [id number] Implanted:Qty : 1 on 11/20/2019 by Amber Jain MD [place] [facility] [place]: Mouth [employer] 10/21/2021 [id number] / / [id number] Implant Silastic 7 Silicone Sw - [id number] Implanted:Qty : 1 on 05/28/2020 by Farhat Pate MD [place] [facility] [place]: Throat [employer] [id number] / / documented as of this encounter Visit Diagnoses Diagnosis Acute myeloid leukemia not having achieved remission (HCC) Hypervolemia, unspecified hypervolemia type Acute myeloid leukemia not having achieved remission [...] the patient have Health Care Power of Tufting Machine Fixer? No Code Status History Code Status Date [...] and were consensually agreed upon. Care Teams Hearing Impaired Teacher Relationship Specialty Start Date End Date Ivonne French PA-C [address] [place] [address] PCP - General Physician Shared Services Representative 07/24/21 documented as of this encounter
--- OUTSIDE RECORDS SUMMARY | 2024-01-29 21:27 | External Medical Summary | Summary of Care ---
Author Name Unknown Organization [facility] Address [address] [place] [address] Phone [phone] Care Team Providers Care Saw Operator Name Role Phone Ivonne French PA-C Primary Care Provider [phone] Reason for Visit * Reason Onset Date Comments Advice 01/04/2024 Mehreen patient. Encounter Details Date Type Department Care Team (Late st Contact Info) Description 01/04/2024 Telephone Hematology/Oncology, [facility] [address] [place] [address] Ortega Verde MD [address] [place] [address] Advice (Mehreen patient./) Allergies Active [...] E11.9 1 Kit 0 05/25/2023 Active Pen Isabella 32G X 4 MM Use as directed. [...] per day 200 Strip 5 12/28/2023 Active TruzipTouch Delica Plus Orgxpa84E Use as directed. 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 Looking for advice on what to take for her pain, she does have an appt w/dagoberto tomorrow. Including her as FYI. Juany: [phone] * Telephone Encounter - Jeannette Oconnor OSA [...] transferred to nurse line. Thanks, Regla Norris Relay Assembler [facility] ([facility]) (formerly Telepharmacy) 01/04/2024,10:17 AM documented in this encounter Plan of Treatment Upcoming Encounters Date Type Department Care Team (Late st Contact Info) Description 01/05/2024 8:00 AM EST Laboratory Laboratory, [address] [id number] [facility], Lab [address] [place], [place] [address] [address] 01/05/2024 9:00 AM EST Office Visit Hematology/Oncology , [address] [address] Dagoberto Bryant CRNP [address] [place], [place] [address] [address] 01/05/2024 9:30 AM EST Hem/Onc Treatment Hematology/Oncology Treatment, [address] [address] [facility], Chair1 Hem Onc [address] [place], [place] [address] [address] 01/07/2024 10:00 AM EST Office Visit [address] [phone] Ivonne French PA-C [address] [place] [address] 01/07/2024 11:30 AM EST Laboratory Laboratory, [address] [address] [facility], Lab [address] [place], [place] [address] [address] 01/07/2024 12:30 PM EST Hem/Onc Treatment Hematology/Oncology Treatment, [address] [place] [address] [facility], Chair4 Hem Onc [address] [place] [address], [place] [address] 01/10/2024 10:30 AM EST Laboratory Laboratory, [address], [place] [address] [facility], Lab [address] [place] [address], [place] [address] 01/10/2024 11:30 AM EST Telemedicine Hematology/Oncology , [address] [address] Ortega Verde MD 100 [facility] [place] [address] Shayla, Telemed [facility] Hem Onc Clinic [address] [place] [address], [place] [address] 01/10/2024 12:00 PM EST Hem/Onc Treatment Hematology/Oncology Treatment, [address], [place] [address] [facility], Chair9 Hem Onc [address] [place] [address], [place] [address] 01/10/2024 12:30 PM EST Office Visit Palliative Medicine, [address] 5th Floor [place], [place] [address] Nati Easley PA-C [address] [place] [address] 01/12/2024 10:30 AM EST Laboratory Laboratory, [address], [place] [phone] [facility], Lab [address] [place] [address], [place] [address] 01/12/2024 11:30 AM EST Hem/Onc Treatment Hematology/Oncology Treatment, [address] [place], [place] [address] [facility], Chair7 Hem Onc [address] [place], [place] [address] [address] 01/14/2024 11:30 AM EST Laboratory Laboratory, [address] [phone] [facility], Lab [address] [place], [place] [address] [address] 01/14/2024 12:30 PM EST Hem/Onc Treatment Hematology/Oncology Treatment, [address] [place] [address] [facility], Chair10 Hem Onc [address] [place], [place] [address] [address] 01/17/2024 10:00 AM EDT Hospital Encounter OR [facility], Operating Room, [facility] - 4th Floor [address] [place] [address] [facility], In And Out Surgery [address] [place] [address] 01/17/2024 10:00 AM EDT Appointment Radiology, [address] [place] [address] 01/17/2024 10:00 AM EDT - 01/17/2024 11:00 AM EDT Surgery OR [facility], Operating Room, [facility] - 4th Floor [address] [place] [address] [facility], In And Out Surgery [address] [place] [address] [place] [address] PRE / POST CARE 01/26/2024 9:00 AM EDT Office Visit Pharmacy, [facility] [address] [facility] [place] [address] [facility] [place] [address] 01/31/2024 9:00 AM EDT Imaging Radiology [facility] [place] [address] 02/10/2024 11:40 AM EDT Office Visit Family Practice, [place] [address] [place] [address] Ivonne French PA-C [address] [place] [address] 05/10/2024 8:15 AM EDT Office Visit Ophthalmology, [place] [address] [place] [address] Migel Ramires MD [address] [place] [address] Scheduled Procedures Name Priority Associated Diagnoses Date/Ti [...] this encounter Medical Devices Implanted Type Area Date Pitter Device Identifier Shelf Expiration Date Model / Serial / Lot Lens Intraoc 21.0 - [id number] - [id number] Implanted:Qty : 1 on 07/06/2017 by Luis Eduardo Cole MD at [facility] Left: Eye [employer] 01/05/2022 [id number] / [id number] / Lens Intraoc 21.0 - [id number] - [id number] Implanted:Qty : 1 on 07/20/2017 by Luis Eduardo Cole MD at OR [facility] Right: Eye [employer] LOM[employer] 01/05/2022 [id number] / [id number] / Syringe Prolaryn Del 1.0cc - [id number] Implanted:Qty : 1 on 11/20/2019 by Amber Jain MD at OR [facility] Right: Mouth [employer] 10/21/2021 [id number] / / [id number] Implant Silastic 7 Silicone Sw - [id number] Implanted:Qty : 1 on 05/28/2020 by Farhat Pate MD at OR [facility] Right: Throat Sitesimon [id number] / / documented as of this [...] the patient have Health Care Power of Polymer Engineer? No Code Status History Code Status Date [...] and were consensually agreed upon. Care Teams Saw Operator Relationship Specialty Start Date End Date Ivonne French PA-C [address] [facility] [place] [address] PCP - General Physician Timber Watchman 07/24/21 documented as of this encounter
--- OUTSIDE RECORDS SUMMARY | 2024-01-29 21:28 | External Medical Summary | Summary of Care ---
Author Name Unknown Organization [facility] Address [address] [place] [address] Phone [phone] Care Team Providers Care Plastic Maker Name Role Phone Ivonne French PA-C Primary Care Provider [phone] Reason for Visit * Reason Onset Date Comments Other 01/04/2024 Encounter Details Date Type Department Care Team (Late st Contact Info) Description 01/04/2024 Telephone Hematology Oncology [facility] [address] [place] [address] Ortega Verde MD [address] [place] [address] Other Allergies Active Allergy Reactions [...] E11.9 1 Kit 0 05/25/2023 Active Pen Combes 32G X 4 MM Use as directed. [...] Hour (toPROL XL)Indications:Craig nary artery disease involving sioux coronary artery of sioux heart without angina pectoris Take 2 Tablets [...] Strip 5 12/28/2023 Active OneTouch Delica Plus Uonttj73V Use as directed. Use when checking blood [...] encounter Miscellaneous Notes * Addendum Note - Sly Jacobsen PHARM Tech - 01/04/2024 10:14 AM ESTAddended by: SLY JACOBSEN on: 01/04/2024 10:14 AM Modules accepted: Orders * Telephone Encounter - Sly Jacobsen PHARM Tech - 01/04/2024 10:13 AM EST Please reroute Rx to E [facility] [address] [facility]. Pending Prescriptions: Disp Refills Magic Swizzle (Wiooglkja-Vifllyzf-Chcrvi)*300 mL 1 Sig: Swish and spit 15 [...] call transferred Thank you, Fernanda Olson CPhT Is Manager [facility] Pharmacy Services (CCPS)(formerly telepharmacy) 01/04/2024,10:11 AM documented in this encounter Plan of Treatment Upcoming Encounters Date Type Department Care Team (Late st Contact Info) Description 01/05/2024 8:00 AM EST Laboratory Laboratory, [address], [place] [address] [facility], Lab [address] [place] [address], [place] [address] 01/05/2024 9:00 AM EST Office Visit Hematology/Oncology , [address], [place] [address] Tasneem Bryant CRNP [address] [place] [address], [place] [address] 01/05/2024 9:30 AM EST Hem/Onc Treatment Hematology/Oncology Treatment, [address], [place] [address] [facility], Bed1 Hem Onc [address] [place] [address], [place] [address] 01/07/2024 10:00 AM EST Office Visit [facility] [address] [place] [facility] [place] [phone] Ivonne French, PA-C [address] [place] [address] 01/07/2024 11:30 AM EST Laboratory Laboratory, [address], [place] [address] [facility], Lab [address] [place] [address], [place] [address] 01/07/2024 12:30 PM EST Hem/Onc Treatment Hematology/Oncology Treatment, [address], [place] [address] [facility], Chair4 Hem Onc [address] [place] [address], [place] [address] 01/10/2024 10:30 AM EST Laboratory Laboratory, [address] [phone] [facility], Lab [address] [place] [address] 01/10/2024 11:30 AM EST Telemedicine Hematology/Oncology , [address] [address] Ortega Verde MD [address] [place], [place] [id number] Shayla, Telemed [facility] Hem Onc Clinic [address] [place] [address] 01/10/2024 12:00 PM EST Hem/Onc Treatment Hematology/Oncology Treatment, [address] [address] [facility], Chair9 Hem Onc [address] [place] [address] 01/10/2024 12:30 PM EST Office Visit Palliative Medicine, [address] 5th [place] [address] Nati Easley PACuong [address] [place] [address] 01/11/2024 2:30 PM EST Office Visit Cardiology, [facility] [address] [place] [address] Yadira Al CRNP [address] [place] [address] 01/12/2024 10:30 AM EST Laboratory Laboratory, [address] [place], [place] [address] [facility], Lab [address] [facility], [place] [address] 01/12/2024 11:30 AM EST Hem/Onc Treatment Hematology/Oncology Treatment, [address], [place] [address] [facility], Chair7 Hem Onc [address] [place] [address], [place] [address] 01/14/2024 11:30 AM EST Laboratory Laboratory, [address], [place] [address] [facility], Lab [address] [facility], [place] [address] 01/14/2024 12:30 PM EST Hem/Onc Treatment Hematology/Oncology Treatment, [address] [address] [facility], Chair10 Hem Onc [address] [place] [address], [place] [address] 01/17/2024 10:00 AM EDT Hospital Encounter OR [facility], Operating Room, [facility] - 4th Floor [address] [place] [address] [place] [address] [facility], In And Out Surgery [address] [place] [address] [place] [address] 01/17/2024 10:00 AM EDT Appointment Radiology, [address] [place] [address] 01/17/2024 10:00 AM EDT - 01/17/2024 11:00 AM EDT Surgery OR [facility], Operating Room, [facility] - 4th Floor [address] [place], [place] [address] [address] Gl[facility], In And Out Surgery [address] [facility] [place] [address] PRE / POST CARE 01/26/2024 9:00 AM EDT Office Visit Pharmacy, [facility] [address] [facility] [place] [address] [facility] [place] [address] 01/31/2024 9:00 AM EDT Imaging Radiology [facility] 1st Floor, [place] [address] [place] [address] 02/10/2024 11:40 AM EDT Office Visit Family [facility] [place] [address] [facility] [place] [phone] Ivonne French PA-C [address] [facility] [address] 05/10/2024 8:15 AM EDT Office Visit Ophthalmology, [place] [address] [place] [address] Migel Ramires MD [address] [place] [address] Scheduled Procedures Name Priority Associated Diagnoses Date/Ti [...] this encounter Medical Devices Implanted Type Area Freight Conductor Device Identifier Shelf Expiration Date Model / Serial / Lot Lens Intraoc 21.0 - [id number] - [id number] Implanted:Qty : 1 on 07/06/2017 by Luis Eduardo Cole MD at OR [facility] Left: Eye [employer] 01/05/2022 [id number] / [id number] / Lens Intraoc 21.0 - [id number] - [id number] Implanted:Qty : 1 on 07/20/2017 by Luis Eduardo Cole MD at OR [facility] Right: Eye [employer] 01/05/2022 [id number] / [id number] / Syringe Prolaryn Del 1.0cc - [id number] Implanted:Qty : 1 on 11/20/2019 by Amber Jain MD at OR [facility] Right: Mouth [employer] 10/21/2021 [id number] / / [id number] Implant Silastic 7 Silicone Sw - [id number] Implanted:Qty : 1 on 05/28/2020 by Farhat Pate MD at OR [facility] Right: Throat SignNow [id number] / / documented as of this [...] the patient have Health Care Power of Preparation Room Worker? No Code Status History Code Status [...] and were consensually agreed upon. Care Teams Plastic Maker Relationship Specialty Start Date End Date Ivonne French PA-C [address] [place] [address] PCP - General Physician Button Maker And Installer 07/24/21 documented as of this encounter
--- OUTSIDE RECORDS SUMMARY | 2024-01-29 21:28 | External Medical Summary | Summary of Care ---
Author Name Unknown Organization [facility] [address] [facility] [address] Phone [phone] Care Team Providers Care Risk Control Product Liability Director Name Role Phone Ivonne French PA-C Primary Care Provider [phone] Reason for Visit * Reason Comments Treatment 1 unit of packed red blood cells Encounter Details Date Type Department Care Team (Latest Contact Info) Description 01/03/2024 10:00 AM EST Hem/Onc Treatment Hematology/Oncology Treatment, [address] [place] [address] [facility], Chair8 Hem Onc [address] [place] [address] Acute myeloid leukemia not having achieved remission (HCC)* Allergies Active Allergy Reactions Criticality Noted Date Comments Adhesive Tape 04/21/2016 Glue off the old style medical tape. documented as of this encounter (statuses as of 01/03/2024) Medications Medication Sig Dispensed Refills Start Date [...] E11.9 1 Kit 0 05/25/2023 Active Pen Cascilla 32G X 4 MM Use as directed. 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 135 Tablet 1 12/28/2023 Active Acyclovir 400 MG Oral Tablet (Zovirax) Take 1 Tablet by mouth in the morning and 1 Tablet before bedtime. 60 Tablet 3 12/28/2023 Active levoFLOXacin 500 MG Oral Tablet (Levaquin) Take 1 Tablet by mouth daily in the morning. 30 Tablet 1 12/29/2023 Active ThromboVisionToAgile Energy Verio In Vitro Strip (Glucose Blood) Use when checking blood glucose levels 4 times per day 200 Strip 5 12/28/2023 Active ThromboVisionTouch Delica Plus [id number] Use as directed. Use when checking blood [...] as of this encounter (statuses as of 01/03/2024) Active Problems Problem Noted Date Diagnosed Date [...] as of this encounter (statuses as of 01/03/2024) Resolved Problems Problem Noted Date Diagnosed Date [...] as of this encounter (statuses as of 01/03/2024) Immunizations Name Administration Dates Next Due COVID-19 [...] Sign Reading Time Taken Comments Blood Pressure 135/69 01/03/2024 1:59 PM EST Pulse 61 01/03/2024 1:59 PM EST Temperature 36.1 C (97 F) 01/03/2024 1:59 PM EST Respiratory Rate 18 01/03/2024 1:59 PM EST Oxygen Saturation - - Inhaled [...] this encounter Patient Instructions * Patient Instructions* Felicitas Ly RN - 01/03/2024 2:04 PM EST POST TRANSFUSION INSTRUCTIONS FOR THE [...] hours and on weekends, call the hospital-paging kennel operator at one of the below listed numbers and ask to speak with an emergency room physician or the certified medical technician of transfusion medicine. [facility] - [phone] [facility] - [phone] [facility] - [phone] [facility], a campus of [facility] - [phone] [facility] - [phone] [facility] - [phone] [facility] - ext. 4 [facility] - You received Red Blood Cells Your temperature, pulse, and blood pressure at the end of your transfusion are as follows: Temperature: 36.1 Pulse: 61 Blood Pressure: 135/69* documented in this encounter Nursing Notes * Felicitas Ly RN - 01/03/2024 2:03 PM EST Tolerated blood transfusion without complications. Lungs clear post transfusion. Patient left IVC by ambulating. Unaccompanied. Voiced no complaints. Felicitas Ly RN 01/03/2024 2:03 PM * Francesca Beckham RN - 01/03/2024 10:40 AM EST [place] # 9 Pt is here for 1 unit of packed red blood cells. [facility] Nursing Care Plan ID is not set. 01/03/2024 Safety and Risk for Injury Patient will [...] did not fall at infusion center. Francesca Beckham, RN documented in this encounter Plan of Treatment Upcoming Encounters Date Type Department Care Team (Late st Contact Info) Description 01/05/2024 10:40 AM EST Laboratory Laboratory, [address] [address] [facility], Lab [address] [place] [address] 01/05/2024 11:30 AM EST Office Visit Hematology/Oncology , [address] [place] [address] Tasneem Bryant CRNP [address] [place] [address] 01/05/2024 12:00 PM EST Hem/Onc Treatment Hematology/Oncology Treatment, [address] [place] [address] [facility], Chair1 Hem Onc [address] [place] [address] 01/07/2024 10:00 AM EST Office Visit [facility] [address] [place] [id number] Ivonne French PA-C [address] [place] [facility] [place] [address] 01/07/2024 11:30 AM EST Laboratory Laboratory, [address] [place] [address] [facility], Lab [address] [place] [address] 01/07/2024 12:30 PM EST Hem/Onc Treatment Hematology/Oncology Treatment, [address] [place] [address] [facility], Chair4 Hem Onc [address] [place] [address], [place] [address] 01/10/2024 10:30 AM EST Laboratory Laboratory, [address] [place] [address] [facility], Lab [address] [place] [address] 01/10/2024 11:30 AM EST Telemedicine Hematology/Oncology , [address], [place] [address] Ortega Verde MD [address] [place] [address] Shayla, Telemed [facility] Hem Onc Clinic [address] [place], [place] [address] [address] 01/10/2024 12:00 PM EST Hem/Onc Treatment Hematology/Oncology Treatment, [address] [address] [facility], Chair9 Hem Onc [address] [place], [place] [address] [address] 01/11/2024 2:30 PM EST Office Visit Cardiology, [facility] [address] [place] [address] Yadira Al CRNP [address] [place] [address] 01/12/2024 10:30 AM EST Laboratory Laboratory, [address] [address] [facility], Lab [address] [facility], [place] [address] 01/12/2024 11:30 AM EST Hem/Onc Treatment Hematology/[address]cology Treatment, [address] [address] [facility], Chair7 Hem Onc [address] [place], [place] [address] [address] 01/14/2024 11:30 AM EST [address] Laboratory, [address] [address] [facility], Lab [address] [place] [address] [address] 01/14/2024 12:30 PM EST Hem/Onc Treatment Hematology/Oncology Treatment, [address] [address] [facility], Chair10 Hem Onc [address] [place], [place] [address] [address] 01/17/2024 10:00 AM EDT Hospital Encounter OR [facility], Operating Room, [facility] - 4th Floor [address] [place] [address] [place] [address] [facility], In And Out Surgery [address] [place], [place] [address] [address] 01/17/2024 10:00 AM EDT Appointment Radiology, [place] [address] [place] [address] 01/17/2024 10:00 AM EDT - 01/17/2024 11:00 AM EDT Surgery OR [facility], Operating Room, [facility] - 4th Floor [address] [place] [address] [facility], In And Out Surgery [address] [address] PRE / POST CARE 01/26/2024 9:00 AM EDT Office Visit Pharmacy, [facility] [address] [facility] [place] [address] [facility] [address] [facility] [place] [address] 01/31/2024 9:00 AM EDT Imaging Radiology [facility] 1st [facility] [address] [place] [address] 02/10/2024 11:40 AM EDT Office Visit [facility] [address] [place] [address] Ivonne French PA-C [address] [place] [address] 05/10/2024 8:15 AM EDT [facility] [address] [place] [address] Migel Ramires MD [address] [place] [address] Scheduled Procedures Name Priority Associated Diagnoses Date/Ti [...] this encounter Medical Devices Implanted Type Area Physical Therapy Attendant Device Identifier Shelf Expiration Date Model / Serial / Lot Lens Intraoc 21.0 - [id number] - [id number] Implanted:Qty : 1 on 07/06/2017 by Luis Eduardo Cole MD at OR [facility] Left: Eye BAUSCH & LOMB 01/05/2022 [id number] / [id number] / Lens Intraoc 21.0 - [id number] - [id number] Implanted:Qty : 1 on 07/20/2017 by Luis Eduardo Cole MD at OR [facility] Right: Eye BAUSCH & LOMB 01/05/2022 [id number] / [id number] / Syringe Prolaryn Del 1.0cc - [id number] Implanted:Qty : 1 on 11/20/2019 by Amber Jain MD at OR [facility] Right: Mouth [employer] 10/21/2021 [id number] / / [id number] Implant Silastic 7 Silicone Sw - [id number] Implanted:Qty : 1 on 05/28/2020 by Farhat Pate MD at OR [facility] Right: Throat MicroVision [id number] / / documented as of this encounter Procedures Procedure Name Priority Date/Time Associated Diagnosis Comments TRANSFUSE PACKED RED BLOOD CELLS Routine 01/03/2024 11:35 AM EST Acute myeloid leukemia not having achieved remission (HCC) PREPARE PACKED RED BLOOD CELLS Routine 01/03/2024 11:00 AM EST Acute myeloid leukemia not having achieved remission (HCC) documented in this encounter Results * TRANSFUSE PACKED RED BLOOD CELLS (01/03/2024 1:33 PM EST) Ortega Verde MD Emiliano BANK TR ANFUSE ORDERABLES * TRANSFUSE PACKED RED BLOOD CELLS (01/03/2024 1:33 PM EST) Ortega VILLARREAL BANK TR ANFUSE ORDERABLES * PREPARE PACKED RED BLOOD CELLS (01/03/2024 11:00 AM EST) Unit Product Code [id number] LABORATORY [facility] BLOOD B[facility] Unit Number [id number] LABO [facility] BLOOD [facility] Unit ABO O LABORAT[facility] Unit Rh POS LABORAT[facility] Unit Crossmatch Compatible LABORATORY [facility] BLOOD [facility] Unit Status IS LABORATO RY [facility]LOOD [facility] Unit Blood Type OPOS LABORATORY [facility]LO[facility] Unit Expiration [id number] LAB[facility]ATORY [facility] BLOOD [facility] Unit Barcode 5100 LABORAT ORY [facility] B[facility]OD [facility] 01/03/2024 11:0 0 AM EST Ortega Verde MD BLD BANK MT ODUCT ORDERABLES LABORATORY [facility] BLOOD BANK [address] [place] [address] documented in this encounter Visit Diagnoses [...] infusion reaction with blood transfusion, Starting on Wed01/03/24 at 1200, Until Discontinued, Maximum of 4 grams (4000 mg) per day. Acetaminophen (Tylenol) tab 650 mg 650 mg, Oral, ONCE PRN Other, Transfusion Reaction, Starting on Wed01/03/24 at 1056, Until Wed01/04/24 at 1055, For 24 hours, Maximum of 4 grams (4000 mg) per day. diphenhydrAMINE (Benadryl) cap 25 mg 25 mg, Oral, ONCE PRN Other, If previous infusion reaction with blood transfusion, Starting on Wed01/03/24 at 1200, Until Discontinued diphenhydrAMINE (Benadryl) cap 25 mg 25 mg, Oral, ONCE PRN Other, Transfusion Reaction, Starting on Wed01/03/24 at 1056, Until Wed01/04/24 at 1055, For 24 hours diphenhydrAMINE (Benadryl) inj 50 mg 50 mg, IV Push, ONCE PRN Other, Hypersensitivity Reaction, Starting on Wed01/03/24 at 1056, Until Wed01/04/24 at 1055, For 24 hours EPINEPHrine 1 MG/ML inj 0.3 mg 0.3 mg, Intramuscular, ONCE PRN Other, Hypersensitivity Reaction or Anaphylaxis, Starting on Wed01/03/24 at 1056, Until Wed01/04/24 at 1055, For 24 hours hEParin 100 UNIT/ML Lock Flush inj 500 Units 500 Units (5 mL), IV Lock, PRN Other, IV Flush, Starting on Wed01/03/24 at 1056, Until Wed01/04/24 at 1055, For 24 hours, Do not flush if lock, PICC, or central line not in place; IV infusing or unable to flush. Hydrocortisone Sod Suc (PF) (Solu-Cortef) inj 100 mg 100 mg, IV Push, ONCE PRN Other, If previous infusion reaction with blood transfusion, Starting on Wed01/03/24 at 1200, Until Discontinued Hydrocortisone Sod Suc (PF) (Solu-Cortef) inj 100 mg 100 mg, IV Push, ONCE PRN Other, Hypersensitivity Reaction, Starting on Wed01/03/24 at 1056, Until Wed01/04/24 at 1055, For 24 hours NSS infusion 500 mL, Intravenous, at 50 mL/hr, CONTINUOUS, Starting on Wed01/03/24 at 1200, Until Wed01/03/24 at 2159 oxygen GAS Inhalation, OXYGEN, First dose on Wed01/03/24 at 1130, Until Discontinued, Device/Managed by: Low Flow Device, [...] Push, PRN Other, IV Flush, Starting on Wed01/03/24 at 1056, Until Wed01/04/24 at 1055, For 24 hours, Do not flush if lock, PICC, or central line not in place; IV infusing or unable to flush. documented in this encounter Advance Directives Latest Code Status on File Code Status Date Activated Date Inactivated Comments No Code 11/24/2023 7:24 PM 12/28/2023 9:25 PM This order reflects the patients wishes and were consensually agreed upon. Question Answer Comments Discussion of Advance Directives occurred with: Patient Does the patient have a Living Will? No Does the patient have Health Care Power of Surgical Supply Assistant? No Code Status History Code Status Date [...] and were consensually agreed upon. Care Teams Risk Control Product Liability Director Relationship Specialty Start Date End Date Ivonne French PA-C [address] [place] [address] PCP - General Physician Senior Internet Sales Consultant 07/24/21 documented as of this encounter
--- OUTSIDE RECORDS SUMMARY | 2024-01-29 21:28 | External Medical Summary | Summary of Care ---
Author Name Unknown Organization [facility] Address [address] [place] [address] Phone [phone] Care Team Providers Care Furnace Attendant Name Role Phone Ivonne French PA-C Primary Care Provider [phone] Reason for Visit * Reason Onset Date Comments Advice 01/04/2024 Mehreen patient. Encounter Details Date Type Department Care Team (Late st Contact Info) Description 01/04/2024 Telephone Hematology/Oncology, [facility] [address] [place] [address] Ortega Verde MD [address] [place] [address] Advice (Mehreen patient./) Allergies Active [...] E11.9 1 Kit 0 05/25/2023 Active Pen [place] 32G X 4 MM Use as directed. 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 135 Tablet 1 12/28/2023 Active Acyclovir 400 MG Oral Tablet (Zovirax) Take 1 Tablet by mouth in the morning and 1 Tablet before bedtime. 60 Tablet 3 12/28/2023 Active levoFLOXacin 500 MG Oral Tablet (Levaquin) Take 1 Tablet by mouth daily in the morning. 30 Tablet 1 12/29/2023 Active TymphanyTouch Verio In Vitro Strip (Glucose Blood) Use when checking blood glucose levels 4 times per day 200 Strip 5 12/28/2023 Active TymphanyTouch Delica Plus [id number] Use as directed. Use when checking blood [...] encounter Miscellaneous Notes * Telephone Encounter - Jeannette Oconnor OSA - 01/04/2024 10:22 AM EST What is the reason for call? Joint pain all over body. What Clinic is the patient trying to reach? [facility]- Is the clinic open? Yes- Other: transfer to specialty Call was warm transferred to [place] * Telephone Encounter - Regla Norris, carpenter repair - 01/04/2024 10:15 AM EST Pt calling with complaint of chest pain last night, states pain has improved so far today. Pt states just not feeling well and was told to contact office if not feeling well. Warm transferred to nurse line. Thanks, Regla Norris [facility] ([facility] (formerly Telepharmacy) 01/04/2024,10:17 AM documented in this encounter Plan of Treatment Upcoming Encounters Date Type Department Care Team (Late st Contact Info) Description 01/05/2024 8:00 AM EST Laboratory Laboratory, [address] [phone] [facility], Lab [address] [place] [address] 01/05/2024 9:00 AM EST Office Visit Hematology/Oncology , [address] [address] Tasneem Bryant CRNP [address] [place] [address] 01/05/2024 9:30 AM EST Hem/Onc Treatment Hematology/Oncology Treatment, [address] [place] [address] [facility], Bed1 Hem Onc [address] [place] [address] 01/07/2024 10:00 AM EST Office Visit [facility] [address] [place] [address] Ivonne French PA-C [address] [place] [address] 01/07/2024 11:30 AM EST Laboratory Laboratory, [address] [phone] [facility], Lab [address] [place] [address], [place] [address] 01/07/2024 12:30 PM EST Hem/Onc Treatment Hematology/Oncology Treatment, [address], [place] [address] [facility], Chair4 Hem Onc [address] [place] [address], [place] [address] 01/10/2024 10:30 AM EST Laboratory Laboratory, [address] [place] [address] [facility], Lab [address] [place] [address], [place] [address] 01/10/2024 11:30 AM EST Telemedicine Hematology/Oncology , [address], [place] [address] Ortega Verde MD [address] [place] [address] [facility] Hem Onc Clinic [address] [place] [address], [place] [address] 01/10/2024 12:00 PM EST Hem/Onc Treatment Hematology/Oncology Treatment, [address], [place] [address] [facility], Chair9 Hem Onc [address] [place] [address], [place] [address] 01/10/2024 12:30 PM EST Office Visit Palliative Medicine, [address], [place] [address] Nati Easley PAHanyC [address] [place] [address] [place] [address] 01/11/2024 2:30 PM EST Office Visit Cardiology, Health system [address] [place] [address] Yadira Al CRNP [address] [place] [address] 01/12/2024 10:30 AM EST Laboratory Laboratory, [address] [address] [facility], Lab [address] [place], [place] [address] [address] 01/12/2024 11:30 AM EST Hem/Onc Treatment Hematology/Oncology Treatment, [address] [address] [facility], Chair7 Hem Onc [address] [place], [place] [address] [address] 01/14/2024 11:30 AM EST Laboratory Laboratory, [address] [place] [address] [facility], Lab [address] [place], [place] [address] [address] 01/14/2024 12:30 PM EST Hem/Onc Treatment Hematology/Oncology Treatment, [address] [address] [facility], Chair10 Hem Onc [address] [place], [place] [address] [address] 01/17/2024 10:00 AM EDT Hospital Encounter OR [facility], Operating Room, [facility] - 4th Floor [address] [place] [address] [place] [address] [facility], In And Out Surgery [address] [place] [address] 01/17/2024 10:00 AM EDT Appointment Radiology, [facility] [address] [place] [place] [address] 01/17/2024 10:00 AM EDT - 01/17/2024 11:00 AM EDT Surgery [facility], Operating Room, [facility] - 4th Floor [address] [address] [facility], In And Out Surgery [address] [place] [place] [address] PRE / POST CARE 01/26/2024 9:00 AM EDT Office Visit Pharmacy, Health system [address] [facility] [place] [address] [facility] [address] [facility] [place] [address] 01/31/2024 9:00 AM EDT Imaging Radiology [facility] 1st [facility] [address] [facility] [place] [address] 02/10/2024 11:40 AM EDT Office Visit [facility] [address] [place] [address] Ivonne French PA-C [address] [place] [address] 05/10/2024 8:15 AM EDT Office Visit Ophthalmology, [place] [address] [place] [address] Migel Ramires MD [address] [place] [address] Scheduled Procedures Name Priority Associated Diagnoses Date/Ti [...] this encounter Medical Devices Implanted Type Area Die Maker Stamping Device Identifier Shelf Expiration Date Model / Serial / Lot Lens Intraoc 21.0 - [id number] - [id number] Implanted:Qty : 1 on 07/06/2017 by Luis Eduardo Cole MD at OR [facility] Left: Eye BAUSCH [employer] LOMB 01/05/2022 [id number] / [id number] / Lens Intraoc 21.0 - [id number] - [id number] Implanted:Qty : 1 on 07/20/2017 by Luis Eduardo Cole MD at OR [facility] Right: Eye BAUSCH & LOMB 01/05/2022 [id number] / [id number] / Syringe Prolaryn Del 1.0cc - [id number] Implanted:Qty : 1 on 11/20/2019 by Amber Jain MD at [facility] Right: Mouth [employer] 10/21/2021 [id number] / / [id number] Implant Silastic 7 Silicone Sw - [id number] Implanted:Qty : 1 on 05/28/2020 by Farhat Pate MD at [facility] Right: Throat Groupiter [id number] / / documented as of this [...] the patient have Health Care Power of Land Management Forester? No Code Status History Code Status Date [...] and were consensually agreed upon. Care Teams Furnace Attendant Relationship Specialty Start Date End Date Ivonne French PA-C [address] [place] [address] PCP - General Physician State Trooper 07/24/21 documented as of this encounter
--- OUTSIDE RECORDS SUMMARY | 2024-01-29 21:28 | External Medical Summary | Summary of Care ---
Author Name Unknown Organization [facility] Address [address] [facility] [address] Phone [phone] Care Team Providers Care Demurrage Agent Name Role Phone Ivonne French PA-C Primary Care Provider +1 [phone] Reason for Visit * Reason Onset Date Comments Medication Question 12/29/2023 Encounter Details Date Type Department Care Team (Late st Contact Info) Description 12/29/2023 Telephone Pharmacy, [facility] 132 [facility] [place] [id number] [facility] 21 [facility] [place] [address] Medication Question Allergies Active Allergy Reactions Criticality Noted Date [...] E11.9 1 Kit 0 05/25/2023 Active Pen [place] 32G X 4 MM Use as directed. 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 Use when checking blood [...] encounter Miscellaneous Notes * Telephone Encounter - Mary Grace Farmer RPh - 12/29/2023 9:11 AM EST Dolores, Patient [facility] by [facility] today. Patient was very confused about her medications from discharge. Believe mostly making sense to her now, however she needs to discuss how to take her oral chemo, she is unsure how or when to take. Please follow up with patient. Thank you, Mary Grace Farmer, Pharm D, BCACP Clinical Pharmacist 12/29/2023, 9:12 AM documented in this encounter Plan of Treatment Upcoming Encounters Date Type Department Care Team (Late st Contact Info) Description 01/05/2024 10:40 AM EST Laboratory Laboratory, [address] [place] [address] [facility], Lab [address] [place] [address] [place] [address] 01/05/2024 11:30 AM EST Office Visit Hematology/Oncology , [address] [place] [address] Tasneem Bryant CRNP [address] [place] [address], [place] [address] 01/05/2024 12:00 PM EST Hem/Onc Treatment Hematology/Oncology Treatment, [address], [place] [address] [facility], Chair1 Hem Onc [address] [place] [address], [place] [address] 01/07/2024 10:00 AM EST Office Visit [facility] [address] [facility], [place] [phone] Ivonne French PA-C [address] [facility], [place] [address] 01/07/2024 11:30 AM EST Laboratory Laboratory, [address], [place] [address] [facility], Lab [address] [place] [address], [place] [address] 01/07/2024 12:30 PM EST Hem/Onc Treatment Hematology/Oncology Treatment, [address], [place] [address] [facility], Chair4 Hem Onc [address] [place] [address], [place] [address] 01/10/2024 10:30 AM EST Laboratory Laboratory, [address], [place] [address] [facility], Lab [address] [place] [address], [place] [address] 01/10/2024 11:30 AM EST Telemedicine Hematology/Oncology , [address] [address] Ortega Verde MD [address] [place] [address] Shayla, Telemed [facility] Hem Onc Clinic [address] [place] [address], [place] [address] 01/10/2024 12:00 PM EST Hem/Onc Treatment Hematology/Oncology Treatment, [address] [place] [address] [facility], Chair9 Hem Onc [address] [place] [address] 01/10/2024 12:30 PM EST Office Visit Palliative Medicine, [address] [place] [address] Nati Easley PA-C [address] [place] [address] 01/11/2024 2:30 PM EST Office Visit Cardiology, [facility] [address] [facility] [place] [address] Yadira Al CRNP [address] [facility] [place] [address] 01/12/2024 10:30 AM EST Laboratory Laboratory, [address] [phone] [facility], Lab [address] [place] [address] [place] [address] 01/12/2024 11:30 AM EST Hem/Onc Treatment Hematology/Oncology Treatment, [address] [address] [facility], Chair7 Hem Onc [facility] [address] 01/14/2024 11:30 AM EST Laboratory Laboratory, [facility] 400 [facility] [address] [facility], Lab 400 [facility], [place] [address] 01/14/2024 12:30 PM EST Hem/Onc Treatment Hematology/Oncology Treatment, [address] [place] [address] [facility], Chair10 Hem Onc [facility] [address] 01/17/2024 10:00 AM EDT Hospital Encounter OR [facility], Operating Room, [facility] - 4th Floor [address] [place] [address] [facility], In And Out Surgery [address] [place] [address] 01/17/2024 10:00 AM EDT Appointment Radiology, [address] [place] [address] 01/17/2024 10:00 AM EDT - 01/17/2024 11:00 AM EDT Surgery OR [facility], Operating Room, [facility] - 4th Floor 400 [facility] [place] [address] [facility], [facility] 400 [facility] [place] [address] PRE / POST CARE 01/26/2024 9:00 AM EDT [facility] 132 [place] [address] [facility] [address] [place] [address] 01/31/2024 9:00 AM EDT Imaging Radiology [facility] 1st [facility] 132 [facility] [place] [address] 02/10/2024 11:40 AM EDT Office Visit Family Practice, [place] [address] [facility] [place] [phone] Ivonne French PA-C [address] [facility] [place] [address] 05/10/2024 8:15 AM EDT Office Visit Ophthalmology, [place] 21 [place] [address] Migel Ramires MD 21 [place] [address] Scheduled Procedures Name Priority Associated Diagnoses Date/Ti [...] this encounter Medical Devices Implanted Type Area Landcare Facilitator Device Identifier Shelf Expiration Date Model / Serial / Lot Lens Intraoc 21.0 - [id number] - [id number] Implanted:Qty : 1 on 07/06/2017 by Luis Eduardo Cole MD at OR [facility] Left: Eye BAUSCH & LOMB 01/05/2022 [id number] / [id number] / Lens Intraoc 21.0 - [id number] - [id number] Implanted:Qty : 1 on 07/20/2017 by Luis Eduardo Cole MD at OR [facility] Right: Eye BAUSCH & LOMB 01/05/2022 [id number] / [id number] / Syringe Prolaryn Del 1.0cc - [id number] Implanted:Qty : 1 on 11/20/2019 by Amber Jain MD at [place] [facility] Right: Mouth [employer] 10/21/2021 [id number] / / [id number] Implant Silastic 7 Silicone Sw - [id number] Implanted:Qty : 1 on 05/28/2020 by Farhat Pate MD at [place] [facility] Right: Throat [employer] [id number] / / documented as of this [...] the patient have Health Care Power of Cabin Crew? No Code Status History Code Status Date [...] and were consensually agreed upon. Care Teams Demurrage Agent Relationship Specialty Start Date End Date Ivonne French PA-C [address] [place] [address] PCP - General Physician Rfid Specialist 07/24/21 documented as of this encounter
--- OUTSIDE RECORDS SUMMARY | 2024-01-29 21:28 | External Medical Summary | Summary of Care ---
Author Name Unknown Organization [facility] Address [address] [place] [address] Phone [phone] Care Team Providers Care Retail Administrative Assistant Name Role Phone Ivonne French PA-C Primary Care Provider +1 [phone] Reason for Visit * Reason Onset Date Comments Advice 01/04/2024 Mehreen patient. 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 Use when checking blood [...] now. States she is feeling overwhelmed [facility] is her [facility] and they can't get her in until May [facility] pharmacy never got the script for lasix, the nationwide outage has their system down, I will call this in Also requesting yessy coe go to [facility] which I will call that in as well. Looking for advice on what to take for her pain, she does have an appt w/dagoberto tomorrow. Including her as FYI. Juany: [phone] * Telephone Encounter - Jeannette Oconnor OSA [...] transferred to nurse line. Thanks, Regla Norris Patrol Agent [facility] ([facility]) (formerly Telepharmacy) 01/04/2024,10:17 AM documented in this encounter Plan of Treatment Upcoming Encounters Date Type Department Care Team (Late st Contact Info) Description 01/05/2024 8:00 AM EST Laboratory Laboratory, [facility] [address] [place] [address] [facility], Lab [address] [place], [place] [address]ia [place] [address] 01/05/2024 9:00 AM EST Office Visit Hematology/Oncology , [address], [place] [address] Dagoberto Bryant CRNP [address] [place] [address], [place] [address] 01/05/2024 9:30 AM EST Hem/Onc Treatment Hematology/Oncology Treatment, [address], [place] [address] [facility], Chair1 Hem Onc [address] [place] [address], [place] [address] 01/07/2024 10:00 AM EST Office Visit [facility] [address] [place] [address] Ivonne French PA-C [address] [place], [place] [phone] 01/07/2024 11:30 AM EST Laboratory Laboratory, [address], [place] [address] [facility], Lab [address] [place] [address], [place] [address] 01/07/2024 12:30 PM EST Hem/Onc Treatment Hematology/Oncology Treatment, [address], [place] [address] [facility], Chair4 Hem Onc [address] [place] [address], [place] [address] 01/10/2024 10:30 AM EST Laboratory Laboratory, [address], [place] [address] [facility], Lab [address] [place] [address], [place] [address] 01/10/2024 11:30 AM EST Telemedicine Hematology/Oncology , [address] [address] Ortega Verde MD [address] [place] [address] Cart, Telemed [facility] Hem Onc Clinic [address] [place] [address] 01/10/2024 12:00 PM EST Hem/Onc Treatment Hematology/Oncology Treatment, [address] [address] [facility], Chair9 Hem Onc [address] [place] [address] 01/10/2024 12:30 PM EST Office Visit Palliative Medicine, [address] 5th [place] [address] Nati Easley PA-C [address] [place] [address] 01/11/2024 2:30 PM EST Office Visit Cardiology, [facility] [address] [facility] [place] [address] Yadira Al CRNP [address] [facility] [place] [address] 01/12/2024 10:30 AM EST Laboratory Laboratory, [address] [phone] [facility], Lab [address] [place] [address] 01/12/2024 11:30 AM EST Hem/Onc Treatment Hematology/Oncology Treatment, [address], [place] [address] [facility], Chair7 Hem Onc [address] [place] [address], [place] [address] 01/14/2024 11:30 AM EST Laboratory Laboratory, [address], [place] [address] [facility], Lab [address] [place] [address], [place] [address] 01/14/2024 12:30 PM EST Hem/Onc Treatment Hematology/Oncology Treatment, [address], [place] [address] [facility], Chair10 Hem Onc [address] [place] [address] [address] 01/17/2024 10:00 AM EDT Hospital Encounter OR [facility], Operating Room, [facility] - 4th Floor [address] [place] [address] [facility], In And Out Surgery 400 [place] [address] 01/17/2024 10:00 AM EDT Appointment Radiology, [address] [place] [address] 01/17/2024 10:00 AM EDT - 01/17/2024 11:00 AM EDT Surgery OR [facility], Operating Room, [facility] - 4th Floor 400 [facility] [place] [address] [facility], In And Out Surgery [address] [place] [address] PRE / POST CARE 01/26/2024 9:00 AM EDT [facility] [address] [place] [address] [facility] [address] [address] 01/31/2024 9:00 AM EDT Imaging Radiology [facility] 1st [facility] [address] [place] [address] 02/10/2024 11:40 AM EDT Office Visit Family [facility] [place] [address] [facility] [place] [phone] Ivonne French PA-C [address] [place] [address] 05/10/2024 8:15 AM EDT Office Visit Ophthalmology, [place] 21 [place] [address] Migel Ramires MD 21 [place] [address] Scheduled Procedures Name Priority Associated Diagnoses Date/Ti [...] this encounter Medical Devices Implanted Type Area Chair Spring Assembler Device Identifier Shelf Expiration Date Model / Serial / Lot Lens Intraoc 21.0 - [id number] - [id number] Implanted:Qty : 1 on 07/06/2017 by Luis Eduardo Cole MD at OR [facility] Left: Eye BAUSCH & LOMB 01/05/2022 [id number] / [id number] / Lens Intraoc 21.0 - [id number] - [id number] Implanted:Qty : 1 on 07/20/2017 by Luis Eduardo Cole MD at OR [facility] Right: Eye BAUSCH & LOMB 01/05/2022 [id number] / [id number] / Syringe Prolaryn Del 1.0cc - [id number] Implanted:Qty : 1 on 11/20/2019 by Amber Jain MD at OR [facility] Right: Mouth [employer] 10/21/2021 [id number] / / [id number] Implant Silastic 7 Silicone Sw - [id number] Implanted:Qty : 1 on 05/28/2020 by Farhat Pate MD at OR [facility] Right: Throat [employer] [id number] / / documented as of this [...] the patient have Health Care Power of Grants Administrator? No Code Status History Code Status Date [...] and were consensually agreed upon. Care Teams Retail Administrative Assistant Relationship Specialty Start Date End Date Ivonne French PA-C [address] [place] [address] PCP - General Physician Slime Plant Operator Helper 07/24/21 documented as of this encounter
--- OUTSIDE RECORDS SUMMARY | 2024-01-29 21:28 | External Medical Summary | Summary of Care ---
Author Name Unknown Organization [facility] Address [address] [place] [address] Phone [phone] Care Team Providers Care Pre Sales Technical Consultant Name Role Phone Ivonne French PA-C Primary Care Provider +[phone] Reason for Visit * Reason Onset Date Comments Scheduling 12/31/2023 Encounter Details Date Type Department Care Team (Late st Contact Info) Description 12/31/2023 Telephone Interventional Radiology, [facility] [address] [place] [address] Richard Moreira PA-C [address] [place] [address] Scheduling Allergies Active Allergy Reactions [...] Hour (toPROL XL)Indications:Craig nary artery disease involving [place] coronary artery of [place] heart without angina pectoris Take 2 Tablets [...] per day 200 Strip 5 12/28/2023 Active Certified Security SolutionsTouch Delica Plus Eyoyme99B Use as directed. Use when checking blood [...] the Bone Marrow Biopsy for 01/16 at [facility]. Patient identified by: name/birthdate Person taught: Patient METHOD: Lecture-telephone interview Patient Preferred Learning Methods: Lecture-Telephone interview PATIENT INSTRUCTIONS GIVEN: - General Preoperative Instructions Reviewed - NPO Instructions Reviewed, pt to stop eating 8 hours prior to procedure and stop drinking 2 hoursprior to procedure. -Grievance Coordinator required Location and check-in instructions Verbalizes understanding [...] Description 01/05/2024 10:40 AM EST Laboratory Laboratory, [address] [place] [phone] [facility], Lab [address] [place], [place] [address] [address] 01/05/2024 11:30 AM EST Office Visit Hematology/Oncology , [address], [place] [address] Tasneem Bryant CRNP [address] [place] [address], [place] [address] 01/05/2024 12:00 PM EST Hem/Onc Treatment Hematology/Oncology Treatment, [address], [place] [address] [facility], Chair1 Hem Onc [address] [place] [address], [place] [address] 01/07/2024 10:00 AM EST Office Visit [facility] [address] [place] [address] Ivonne French PAHanyC [address] [place] [address] 01/07/2024 11:30 AM EST Laboratory Laboratory, [address], [place] [address] [facility], Lab [address] [place] [address], [place] [address] 01/07/2024 12:30 PM EST Hem/Onc Treatment Hematology/Oncology Treatment, [address], [place] [address] [facility], Chair4 Hem Onc [address] [place] [address], [place] [address] 01/10/2024 10:30 AM EST Laboratory Laboratory, [address] [address] [facility], Lab 400 [place] [address] 01/10/2024 11:30 AM EST Telemedicine Hematology/Oncology , [address] [address] Ortega Verde MD [address] [facility] [place] [address] Shayla, Telemed [facility] Hem Onc Clinic [address] [place] [address] 01/10/2024 12:00 PM EST Hem/Onc Treatment Hematology/Oncology Treatment, [address] [address] [facility], Chair9 Hem Onc [address] [place] [address] 01/10/2024 12:30 PM EST Office Visit Palliative Medicine, [address] 5th [place] [address] Nati Easley PA-C [address] [place] [address] 01/11/2024 2:30 PM EST Office Visit Cardiology, [facility] [address] [place] [address] Yadira Al CRNP [address] [place] [address] 01/12/2024 10:30 AM EST Laboratory Laboratory, [address] [phone] [facility], Lab 400 [facility] [address] 01/12/2024 11:30 AM EST Hem/Onc Treatment Hematology/Oncology Treatment, [address] [address] [facility], Chair7 Hem Onc [address] [place], [place] [address] [address] 01/14/2024 11:30 AM EST Laboratory Laboratory, [address] [phone] [facility], Lab 400 [facility] [address] 01/14/2024 12:30 PM EST Hem/Onc Treatment Hematology/Oncology Treatment, [address] [place] [address] [facility], Chair10 Hem Onc [address] [place], [place] [address] [address] 01/17/2024 10:00 AM EDT Hospital Encounter OR [facility], Operating Room, [facility] - 4th Floor [address] [place] [address] [place] [address] [facility], In And Out Surgery 400 [place] [address] 01/17/2024 10:00 AM EDT Appointment Radiology, [address] [place] [address] 01/17/2024 10:00 AM EDT - 01/17/2024 11:00 AM EDT Surgery OR [facility], Operating Room, [facility] - 4th Floor [address] [place] [address] [place] [address] [facility], In And Out Surgery [address] [place] [address] [place] [address] PRE / POST CARE 01/26/2024 9:00 AM EDT Office Visit Pharmacy, [facility] 132 [facility] [place] [address] [facility] 132 [facility] [place] [address] 01/31/2024 9:00 AM EDT Imaging Radiology [facility] 1st [facility] [place] [address] 02/10/2024 11:40 AM EDT Office Visit Family [facility] [place] [address] [facility] [place] [phone] Ivonne French PA-C [address] [place] [address] 05/10/2024 8:15 AM EDT Office Visit Ophthalmology, [place] 21 [place] [address] Migel Ramires MD 21 [place] [address] Scheduled Procedures Name Priority Associated Diagnoses Date/Ti [...] Medical Devices Implanted Type Area Director Of Business Development Device Identifier Shelf Expiration Date Model / Serial / Lot Lens Intraoc 21.0 - [id number] - [id number] Implanted:Qty : 1 on 07/06/2017 by Luis Eduardo Cole MD at [facility] Left: Eye BAUSCH & LOMB 01/05/2022 [id number] / [id number] / Lens Intraoc 21.0 - [id number] - [id number] Implanted:Qty : 1 on 07/20/2017 by Luis Eduardo Cole MD at OR [facility] Right: Eye BAUSCH & LOMB 01/05/2022 [id number] / [id number] / Syringe Prolaryn Del 1.0cc - [id number] Implanted:Qty : 1 on 11/20/2019 by Amber Jain MD at [place] [facility] Right: Mouth [employer] 10/21/2021 [id number] / / [id number] Implant Silastic 7 Silicone Sw - [id number] Implanted:Qty : 1 on 05/28/2020 by Farhat Pate MD at [place] [facility] Right: Throat [employer] [id number] / / documented as of this [...] the patient have Health Care Power of Temporary Staff Accountant? No Code Status History Code Status Date [...] and were consensually agreed upon. Care Teams Pre Sales Technical Consultant Relationship Specialty Start Date End Date Ivonne French PA-C [address] [place] [address] PCP - General Physician Research Technologist 07/24/21 documented as of this encounter
--- OUTSIDE RECORDS SUMMARY | 2024-01-29 21:28 | External Medical Summary | Summary of Care ---
Author Name Unknown Organization [facility] Address [address] [place] [address] Phone [phone] Care Team Providers Care Monogram Operator Name Role Phone Ivonne French PA-C Primary Care Provider [phone] Reason for Referral * Evaluate & Treat - Unlimited Visits (Within 10 days (routine)) - Authorized Specialty Diagnoses / Procedures Referred By Contsumanth t Referred To Contact Hospice and Palliative Medicine / Palliative Medicine Diagnoses Acute myeloid leukemia not having achieved remission (HCC) Ortega Verde MD [address] [place] [address] Referral ID Status Reason Start Date Expiration Date Visits Requested Visits Authorized [id number] Authorized Specialty Services Required 01/03/2024 999 999 [...] 01/03/2024 9:30 AM EST Office Visit Hematology/Oncology, [address] [address] Ortega Verde MD [address] [place] [address] Acute myeloid leukemia not having [...] the morning. 180 Capsule 0 11/24/2022 Active Unight Delica Lancets 33G Use to test blood sugar three times daily E 11.9 300 Each 05/25/2023 Active Casual CollectiveTouch Verio w/Device Kit Use up to 3 times a day E11.9 1 Kit 0 05/25/2023 Active Pen Miami 32G X 4 MM Use as directed. [...] Hour (toPROL XL)Indications:Craig nary artery disease involving solomon coronary artery of solomon heart without angina pectoris Take 2 Tablets [...] Strip 5 12/28/2023 Active OneTouch Delica Plus [id number] Use as directed. Use when checking blood [...] two unique identifiers. 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 The patient agreed to participate. 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 Molecular: [...] Decitabine and Venetoclax with Inpatient ramp-up (AML) [id number] ECOG: Performance Status 2 = 60-70% Bedtime, < 50% daytime History of present illness (at time of my initial evaluation on 12/31/2023 ): Juany Resendez is a 58 year old female who presented to my office today, unaccompanied, to establish care with car supplier for her newly diagnosed AML. Patient is a , she lives alone. She lives about 1 hour away from [facility].Currently on disability. Her brother lives 10 minutes away from her. She had history of partial bigtoe amputation, and she started using cane recently. Patient was initially evaluated by Dr. Rice, then by Dr. Senior in [place], then admitted to the hospital, and coming now to [facility] follow-up with me as an outpatient. He had prolonged hospital stay, with the following hospital course 11/24/2023 - 12/28/2023 (34 days) : "ADMISSION HISTORY & PHYSICAL EXAM (focused): Ms. Resendez is a 58 y/o female who lives in [place] by herself. Her PMH includes DM2 on insulin with partial great toe amputation, HTN, dyslipidemia, multinodular goiter s/p total thyroidectomy with resulting postsurgical hypothyroidism, enchondroma femur, paralytic ptosis left eyelid, HTN/CAD s/p CO years ago, s/p ischemic stroke x 2 [...] for last 1 year. She states her summer analyst is aware of these sx and they [...] as much as possible to help prevent CO. her blood counts dropped as expected and [...] discharged her home with close follow-up at [facility]." Patient is still feel weak [...] DIAGNOSTIC (RECTUM) 12/16/2016 adenomatous polyps, repeat 5 yrs/[facility] COLONOSCOPY, DIAGNOSTIC (RECTUM) 06/03/2022 diverticulosis, fair prep, repeat 5 yrs / [facility] EGD, FLEXIBLE, DIAGNOSTIC 12/16/2016 normal bx/[facility] EGD, FLEXIBLE, W/BIOPSY 07/30/2010 esophagitis, await BX LARYNGOPLASTY MEDIALIZATION UNILATERAL Right 05/28/2020 LARYNGOPLASTY, MEDIALIZATION UNILATERAL performed by Farhat Pate MD at [facility] LARYNGOSCOPY, VOCAL CORD INJECTION Right 11/20/2019 LARYNGOSCOPY DIRECT INJECTION VOCAL CORD WITH MICROSCOPE performed by Amber Jain MD at [facility] MISCELLANEOUS ORDER ([facility] ONLY) Bilateral 11/24/2017 Reinheimer-bleph/levators-ou OTHER s (3 times) 8 inch benign tumor removed from L femur; regrew x 3 OTHER Removal of a benign LN from L axilla REMOVAL OF THYROID GLAND 10/23/2009 total thyroidectomy 10/23/09, [facility], Dr. Vazquez REMOVE CATARACT, INSERT LENS PROSTH Right 07/20/2017 right EXTRACAPSULAR CATARACT REMOVAL WITH INTRAOCULAR LENS performed by Luis Eduardo Cole MD at [facility] REMOVE CATARACT, INSERT LENS PROSTH Left 07/06/2017 left EXTRACAPSULAR CATARACT REMOVAL WITH INTRAOCULAR LENS performed by Luis Eduardo Cole MD at [facility] REMOVE GALLBLADDER 2005 appox date Social [...] mouth in the morning. 180 Capsule 0 Casual CollectiveTouch Delica Lancets 33G Use to test blood sugar three times daily E 11.9 300 Each 5 OneTouch Verio w/Device Kit Use up to 3 times a day E11.9 1 Kit 0 Pen Miami 32G X 4 MM Use as directed. [...] day 200 Strip 5 OneTouch Delica Plus [id number] Use as directed. Use when checking blood [...] Villaseñor DO Progress Notes Signed Zuri Alejandra [facility] Progress Notes Signed Carolina Gustafson RN Progress Notes Signed Carolina Gustafson RN Telephone Encounter Signed Maria R Agosto, GILBERT Addendum Note Signed Lenore López, PBT Details More values are hidden. Newest [...] This exam was submitted to the radiology artillery officer worklist and the ordering provider will [...] loss of RUNX1 or chromosome 21/21q, del 0x73-z99, monosomy 7, consistent with complex karyotype. Molecular: [...] (Shine MOHAN,et al. N Engl J Med 2016;375:1838-0742). Response may not be evident before 3-4 cycles of treatmentwith HMAs (ie, azacitidine, decitabine). Continue HMA treatment until progression if patient is tolerating therapy. Similar delays in response are likely with novel agents in a clinical trial, but endpoints will be defined by the protocol. No orders of the defined types were placed in this encounter. This chart was completed in part utilizing [employer] Speech Voice Recognition Software. Grammatical errors, random [...] included. 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 Molecular: [...] Decitabine and Venetoclax with Inpatient ramp-up (AML) [id number] ECOG: Performance Status 2 = 60-70% Bedtime, [...] office today, unaccompanied, to establish care with car supplier for her newly diagnosed AML. Patient is a , she lives alone. She lives about 1 hour away from [facility].Currently on disability. Her brother lives 10 minutes away from her. She had history of partial bigtoe amputation, and she started using cane recently. Patient was initially evaluated by Dr. Rice, then by Dr. Senior in [place], then admitted to the hospital, and coming now to [facility] follow-up with me as an outpatient. He had prolonged hospital stay, with the following hospital course 11/24/2023 - 12/28/2023 (34 days) : "ADMISSION HISTORY & PHYSICAL EXAM (focused): Ms. Resendez is a 58 y/o female who lives in [place] by herself. Her PMH includes DM2 on insulin with partial great toe amputation, HTN, dyslipidemia, multinodular goiter s/p total thyroidectomy with resulting postsurgical hypothyroidism, enchondroma femur, paralytic ptosis left eyelid, HTN/CAD s/p CO years ago, s/p ischemic stroke x 2 [...] for last 1 year. She states her summer analyst is aware of these sx and they [...] as much as possible to help prevent CO. her blood counts dropped as expected and [...] discharged her home with close follow-up at [facility]." Patient is still feel weak [...] DIAGNOSTIC (RECTUM) 12/16/2016 adenomatous polyps, repeat 5 yrs/[facility] COLONOSCOPY, DIAGNOSTIC (RECTUM) 06/03/2022 diverticulosis, fair prep, repeat 5 yrs / [facility] EGD, FLEXIBLE, DIAGNOSTIC 12/16/2016 normal bx/[facility] EGD, FLEXIBLE, W/BIOPSY 07/30/2010 esophagitis, await BX LARYNGOPLASTY MEDIALIZATION UNILATERAL Right 05/28/2020 LARYNGOPLASTY, MEDIALIZATION UNILATERAL performed by Farhat Pate MD at [facility] LARYNGOSCOPY, VOCAL CORD INJECTION Right 11/20/2019 LARYNGOSCOPY DIRECT INJECTION VOCAL CORD WITH MICROSCOPE performed by Amber Jain MD at [facility] MISCELLANEOUS ORDER ([facility] ONLY) Bilateral 11/24/2017 Reinheimer-bleph/levators-ou OTHER s (3 times) 8 inch benign tumor removed from L femur; regrew x 3 OTHER Removal of a benign LN from L axilla REMOVAL OF THYROID GLAND 10/23/2009 total thyroidectomy 10/23/09, [facility], Dr. Vazquez REMOVE CATARACT, INSERT LENS PROSTH Right 07/20/2017 right EXTRACAPSULAR CATARACT REMOVAL WITH INTRAOCULAR LENS performed by Luis Eduardo Cole MD at [facility] REMOVE CATARACT, INSERT LENS PROSTH Left 07/06/2017 left EXTRACAPSULAR CATARACT REMOVAL WITH INTRAOCULAR LENS performed by Luis Eduardo Cole MD at OR [facility] REMOVE GALLBLADDER 2004 appox date Social [...] times daily E 11.9 300 Each 5 Casual CollectiveTouch Verio w/Device Kit Use up to 3 times a day E11.9 1 Kit 0 Pen [place] 32G X 4 MM Use as directed. [...] day 200 Strip 5 OneTouch Delica Plus [id number] Use as directed. Use when checking blood [...] Villaseñor DO Progress Notes Signed Zuri Alejandra [facility] Progress Notes Signed Carolina Gustafson RN Progress Notes Signed Carolina Gustafson RN Telephone Encounter Signed Maria R Agosto OSA Addendum Note Signed Lenore López PBT Details [...] This exam was submitted to the radiology artillery officer worklist and the ordering provider will [...] loss of RUNX1 or chromosome 21/21q, del 9o40-q17, monosomy 7, consistent with complex karyotype. Molecular: [...] close monitoring of her kidney function. Vanessa strong for mucositis I highly recommend follow-up with cardiology, will try to help her to schedule an appointment soon. In patients with AML with TP53 mutation, a 10-day course of decitabine may be considered (Shine JS,et al. N Engl J Med 2016;375:0870-9982). Response may not be evident before 3-4 [...] effects were mainly gastrointestinal symptoms and neutropenia. Vdjfure-gj-euzi measures were maintained throughout treatment. (Supported by aaTag; QUIRAAR AML-001 ClinicalTrials.gov number, TPP25214695.) Plan Uric Acid Palliative Care Referral Op Vanessa Strong (Uhklaqwjm-Dalwrtie-Vjxfnu) oral solution Furosemide 20 MG Oral Tablet (Lasix) New Supportive Care Plan Treatment Ordered By: Hem/Onc --- Protocol: SCP - PACKED RED BLOOD CELLS AND PLATELETS FOR ADULTS REQUIRING FREQUENT TRANSFUSIONS (3 TIMES A WEEK FOR 3 MONTHS) [id number] --- Transfuse 1 unit for Hgb Less [...] This chart was completed in part utilizing [employer] Speech Voice Recognition Software. Grammatical errors, random [...] running low since she was admitted to [facility] November- December 27. She is not sure why it is running low. documented in this encounter Plan of Treatment Upcoming Encounters Date Type Department Care Team (Late st Contact Info) Description 01/05/2024 10:40 AM EST Laboratory Laboratory, [address] [place] [id number] [facility], Lab [address] [place], [place] [address] [address] 01/05/2024 11:30 AM EST Office Visit Hematology/Oncology , [address], [place] [address] Tasneem Bryant CRNP [address] [place] [address], [place] [address] 01/05/2024 12:00 PM EST Hem/Onc Treatment Hematology/Oncology Treatment, [address], [place] [address] [facility], Chair1 Hem Onc [address] [place] [address], [place] [id number] 01/07/2024 10:00 AM EST Office Visit [place] [address] [place] [phone] Ivonne French PA-C [address] [place] [address] 01/07/2024 11:30 AM EST Laboratory Laboratory, [address], [place] [phone] [facility], Lab [address] [place] [address], [place] [id number] 01/07/2024 12:30 PM EST Hem/Onc Treatment Hematology/Oncology Treatment, [address], [place] [address] [facility], Chair4 Hem Onc [address] [place] [address], [place] [address] 01/10/2024 10:30 AM EST Laboratory Laboratory, [address], [place] [address] [facility], Lab [address] [place] [address], [place] [address] 01/10/2024 11:30 AM EST Telemedicine Hematology/Oncology , [address] [address] Ortega Verde MD [address] [facility], [place] [address] Shayla, Telemed [facility] Hem Onc Clinic [address] [place], [place] [address] [address] 01/10/2024 12:00 PM EST Hem/Onc Treatment Hematology[address]cology [address], [address] [address] [facility], Chair9 Hem Onc [address] [place] [address], [place] [address] 01/11/2024 2:30 PM EST Office Visit Cardiology, [facility] [address] [place] [address] MikaelaYadira martin CRNP [address] [place] [address] 01/12/2024 10:30 AM EST Laboratory Laboratory, [address] [address] [facility], Lab [address] [place] [address], [place] [address] 01/12/2024 11:30 AM EST Hem/Onc Treatment Hematology/[address]cology [address], [address] [address] [facility], Chair7 Hem Onc [address] [place] [address] [address] 01/14/2024 11:30 AM EST Laboratory Laboratory, [facility] [address] [facility] [place] [address] [facility] [address] [facility] [place] [address] 01/14/2024 12:30 PM EST Hem/Onc Treatment Hematology/Oncology Treatment, [facility] [address] [place] [address] [facility], Chair10 Hem Onc [facility] [address] 01/17/2024 10:00 AM EDT Hospital Encounter OR [facility], Operating Room, [facility] - 4th Floor [address] [place] [address] [facility], In And Out Surgery [address] [place] [address] 01/17/2024 10:00 AM EDT Appointment Radiology, [address] [place] [address] 01/17/2024 10:00 AM EDT - 01/17/2024 11:00 AM EDT Surgery OR [facility], Operating Room, [facility] - 4th Floor [address] [address] [facility], In And Out Surgery [address] [place] [address] PRE / POST CARE 01/26/2024 9:00 AM EDT Office Visit Pharmacy, [facility] [address] [place] [address] [facility] [address] [place] [address] 01/31/2024 9:00 AM EDT Imaging Radiology [facility] 1st [facility] [address] [place] [address] 02/10/2024 11:40 AM EDT [address] [phone] Ivonne French PA-C [address] [place] [address] 05/10/2024 8:15 AM EDT Office Visit Ophthalmology, [place] [address] [place] [address] Migel Ramires MD [address] [place] [address] Scheduled Procedures Name Priority Associated Diagnoses Date/Ti [...] this encounter Medical Devices Implanted Type Area Driver Sales Device Identifier Shelf Expiration Date Model / Serial / Lot Lens Intraoc 21.0 - [id number] - [id number] Implanted:Qty : 1 on 07/06/2017 by Luis Eduardo Cole MD at OR [facility] Left: Eye [employer]OM[employer] 01/05/2022 [id number] / [id number] / Lens Intraoc 21.0 - [id number] - [id number] Implanted:Qty : 1 on 07/20/2017 by Luis Eduardo Cole MD at OR [facility] Right: Eye [employer] LOMB 01/05/2022 [id number] / [id number] / Syringe Prolaryn Del 1.0cc - [id number] Implanted:Qty : 1 on 11/20/2019 by Amber Jain MD at [facility] Right: Mouth [employer] 10/21/2021 [id number] / / [id number] Implant Silastic 7 Silicone Sw - [id number] Implanted:Qty : 1 on 05/28/2020 by Farhat Pate MD at [facility] Right: Throat ControlCircle [id number] / / documented as of this encounter Results * (ABNORMAL) URIC ACID (01/03/2024 8:33 AM EST) Uric Acid 2.0(L) 2.4 - 5.7 mg/dL 01/03/2024 10:43 AM EST LABORATORY GL Blood Venous blood specimen / Unknown Venipuncture / Unknown 01/03/2024 8:33 AM EST 01/03/2024 8:39 AM EST Ortega Verde MD LAB BLOOD O RDERABLES Performing Organization Address City/State/[place] Co de Phone Number LABORATORY [facility] [address] [place] [address] documented in this encounter Visit Diagnoses [...] the patient have Health Care Power of Phone Technician? No Code Status History Code Status [...] and were consensually agreed upon. Care Teams Monogram Operator Relationship Specialty Start Date End Date Ivonne French PA-C [address] [place] [address] PCP - General Physician Electrical Wirer 07/24/21 documented as of this encounter
--- OUTSIDE RECORDS SUMMARY | 2024-01-29 21:28 | External Medical Summary | Summary of Care ---
Author Name Unknown Organization [facility] Address [address] [place] [address] Phone [phone] Care Team Providers Care Mobile Ui Developer Name Role Phone Ivonne French PA-C Primary Care Provider [phone] Reason for Visit * Reason Onset Date Comments Other 01/04/2024 Encounter Details Date Type Department Care Team (Late st Contact Info) Description 01/04/2024 Telephone Hematology Oncology [facility] [address] [place] [address] Ortega Verde MD [address] [place] [address] Other Allergies Active Allergy Reactions [...] E11.9 1 Kit 0 05/25/2023 Active Pen [place] 32G X 4 MM Use as directed. [...] Hour (toPROL XL)Indications:Craig nary artery disease involving [place] coronary artery of [place] heart without angina pectoris Take 2 Tablets [...] Strip 5 12/28/2023 Active OneTouch Delica Plus Hthynx78Y Use as directed. Use when checking blood [...] AM EST Please reroute Rx to E [facility] [address] [facility]. Pending Prescriptions: Disp Refills Magic Swizzle (Tqznlnbrt-Biquslrb-Cmjrgh)*300 mL 1 Sig: Swish and spit 15 [...] call transferred Thank you, Fernanda Olson CPhT Product Strategy Director Centralized Clinical Pharmacy Services (CCPS)(formerly telepharmacy) 01/04/2024,10:11 AM documented in this encounter Plan of Treatment Upcoming Encounters Date Type Department Care Team (Late st Contact Info) Description 01/05/2024 10:40 AM EST Laboratory Laboratory, [address], [place] [address] [facility], Lab [address] [place] [address], [place] [address] 01/05/2024 11:30 AM EST Office Visit Hematology/Oncology , [address], [place] [address] Tasneem Bryant CRNP [address] [place] [address], [place] [address] 01/05/2024 12:00 PM EST Hem/Onc Treatment Hematology/Oncology Treatment, [address], [place] [address] [facility], Chair1 Hem Onc [address] [place] [address], [place] [address] 01/07/2024 10:00 AM EST Office Visit [facility] [address] [facility] [place] [phone] Ivonne French, PA-C [address] [place] [address] 01/07/2024 11:30 AM EST Laboratory Laboratory, [address], [place] [address] [facility], Lab [address] [place] [address], [place] [address] 01/07/2024 12:30 PM EST Hem/Onc Treatment Hematology/Oncology Treatment, [address], [place] [address] [facility], Chair4 Hem Onc [address] [place] [address], [place] [address] 01/10/2024 10:30 AM EST Laboratory Laboratory, [address] [phone] [facility], Lab [address] [place] [address] 01/10/2024 11:30 AM EST Telemedicine Hematology/Oncology , [address] [address] Ortega Verde MD [address], [place] [id number] Shayla, Telemed [facility] Hem Onc Clinic [address] [place] [address] 01/10/2024 12:00 PM EST Hem/Onc Treatment Hematology/Oncology Treatment, [address] [address] [facility], Chair9 Hem Onc [address] [place] [address] 01/10/2024 12:30 PM EST Office Visit Palliative Medicine, [address] 5th [place] [address] Nati Easley PACuong [address] [place] [address] 01/11/2024 2:30 PM EST Office Visit Cardiology, [facility] [address] [place] [address] Yadira Al CRNP [address] [place] [address] 01/12/2024 10:30 AM EST Laboratory Laboratory, [address] [place], [place] [address] Gl, Lab [address] [facility], [place] [address] 01/12/2024 11:30 AM EST Hem/Onc Treatment Hematology/Oncology Treatment, [address], [place] [address] [facility], Chair7 Hem Onc [address] [place] [address], [place] [address] 01/14/2024 11:30 AM EST Laboratory Laboratory, [address], [place] [address] [facility], Lab [address] [facility], [place] [address] 01/14/2024 12:30 PM EST Hem/Onc Treatment Hematology/Oncology Treatment, [address] [address] [facility], Chair10 Hem Onc [address] [place] [address], [place] [address] 01/17/2024 10:00 AM EDT Hospital Encounter OR GL, Operating Room, [facility] - 4th Floor [address] [place] [address] [place] [address] Gl, In And Out Surgery [address] [place] [address] [place] [address] 01/17/2024 10:00 AM EDT Appointment Radiology, [address] [place] [address] 01/17/2024 10:00 AM EDT - 01/17/2024 11:00 AM EDT Surgery OR GL, Operating Room, [facility] - 4th Floor [address] [place], [place] [address] [address] Glh, In And Out Surgery [address] [facility] [place] [address] PRE / POST CARE 01/26/2024 9:00 AM EDT Office Visit Pharmacy, [facility] [address] [facility] [place] [address] [facility] [place] [address] 01/31/2024 9:00 AM EDT Imaging Radiology [facility] 1st Floor, [place] [address] [place] [address] 02/10/2024 11:40 AM EDT Office Visit Family [facility], [place] [address] [facility] [phone] Ivonne French PA-C [address] [facility] [address] 05/10/2024 8:15 AM EDT Office Visit Ophthalmology, [address] [place] [address] Migel Ramires MD [address] [place] [address] Scheduled Procedures Name Priority Associated Diagnoses Date/Ti [...] this encounter Medical Devices Implanted Type Area Youth Agent Device Identifier Shelf Expiration Date Model / Serial / Lot Lens Intraoc 21.0 - [id number] - [id number] Implanted:Qty : 1 on 07/06/2017 by Luis Eduardo Cole MD at OR [facility] Left: Eye BAUSCH & LOMB 01/05/2022 [id number] / [id number] / Lens Intraoc 21.0 - [id number] - [id number] Implanted:Qty : 1 on 07/20/2017 by Luis Eduardo Cole MD at OR [facility] Right: Eye BAUSCH & LOMB 01/05/2022 [id number] / [id number] / Syringe Prolaryn Del 1.0cc - [id number] Implanted:Qty : 1 on 11/20/2019 by Amber Jain MD [place] [facility] Right: Mouth [employer] 10/21/2021 [id number] / / [id number] Implant Silastic 7 Silicone Sw - [id number] Implanted:Qty : 1 on 05/28/2020 by Farhat Pate MD at [place] [facility] Right: Throat [employer] [id number] / / documented as of this [...] the patient have Health Care Power of Storage Management Architect? No Code Status History Code Status Date [...] and were consensually agreed upon. Care Teams Mobile Ui Developer Relationship Specialty Start Date End Date Ivonne French PA-C [address] [place] [address] PCP - General Physician Resource Conservation Specialist 07/24/21 documented as of this encounter
--- OUTSIDE RECORDS SUMMARY | 2024-01-29 21:28 | External Medical Summary | Summary of Care ---
Author Name Unknown Organization [facility] Address [address] [place] [address] Phone [phone] Care Team Providers Care Wire Drawing Die Maker Name Role Phone Ivonne French PA-C Primary Care Provider [phone] Reason for Referral * Social Care (Within 3 days (urgent)) - Authorized Specialty Diagnoses / Procedures Referred By Lupis t Referred To Contact Regional Controller Diagnoses Acute myeloid leukemia not having achieved remission (HCC) Kathy Borges MD [address] [place] [address] Referral ID Status Reason Start Date Expiration Date Visits Requested Visits Authorized [id number] Authorized Specialty Services Required 01/03/2024 999 999 Question Answer Referral Priority Within 3 days (urgent) Where should this appointment be scheduled? [facility] Role Bag Bailer Referring Reason: Coordinate Cancer Resources Comments Is patient being transitioned from [facility] to Complex Case Management? No Needs any sort of resources you have available to her Reason for Visit * Reason Comments NEW PATIENT * Evaluate & Treat - Unlimited Visits (Within 10 days (routine)) - Authorized Specialty Diagnoses / Procedures Referred By Contac t Referred To Contact Hospice and Palliative Medicine / Palliative Medicine Diagnoses Acute myeloid leukemia not having achieved remission (HCC) Ortega Verde MD [address] [place] [address] Referral ID Status Reason Start Date Expiration Date Visits Requested Visits Authorized [id number] Authorized Specialty Services Required 01/03/2024 999 999 Encounter Details Date Type Department Care Team (Late st Contact Info) Description 01/03/2024 10:30 AM EST Office Visit Palliative Medicine, [facility] [address] [facility] 5th Floor [place] [address] Kathy Borges MD [address] [facility] [place] [address] Acute myeloid leukemia not having achieved remission (HCC)*; Palliative care encounter; ASCVD (arteriosclerotic cardiovascular disease) Allergies Active Allergy Reactions Criticality Noted Date [...] the morning. 180 Capsule 0 11/24/2022 Active NovaThermal EnergyTouch Delica Lancets 33G Use to test blood sugar three times daily E 11.9 300 Each 05/25/2023 Active NovaThermal EnergyTouch Verio w/Device Kit Use up to 3 times a day E11.9 1 Kit 0 05/25/2023 Active Pen [place] 32G X 4 MM Use as directed. [...] Hour (toPROL XL)Indications:Craig nary artery disease involving [place] coronary artery of [place] heart without angina pectoris Take 2 Tablets [...] Strip 5 12/28/2023 Active OneTouch Delica Plus Fempmy67E Use as directed. Use when checking blood [...] Date Resolved Date Toe osteomyelitis, left 05/29/2021 0202/2022 Ulcer of [...] Time Taken Comments Blood Pressure 100/33 01/03/2024 10:30 AM EST Pulse 67 01/03/2024 10:30 AM EST Temperature 36.7 C (98.1 F) 01/03/2024 10:[address] Respiratory Rate - - Oxygen Saturation 100% 01/03/2024 10:30 AM EST Inhaled Oxygen Concentration - - Weight 87.3 kg (192 lb 7.4 oz) 01/03/2024 10:30 AM EST Height - - Body Mass Index 29.26 11/24/2023 5:00 PM EST documented in this [...] * Patient Instructions* Reyna Hirsch LPN - 01/03/2024 10:30 AM EST Our Palliative Medicine Clinic is [...] needed. You can contact our office at [phone], which is our clinic in [place], or you can message us on [employer]. If you have an emergency outside of these hours, we recommend calling your primary care clinic, Oncology office, or going to the ER if you have a medical emergency. documented in this encounter Progress Notes * Kathy Borges MD - 01/03/2024 10:29 AM EST Images from the original note were not included. 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 She has a background of diabetes, HTN, hx of CVA 2 years ago (w/no residual deficit) and others. She was admitted to [facility] from 11/25 - 12/08/23 to start treatment. She met with Dr Verde today and plan is to consider either a more mild treatment or supportive care. Referred to palliative care for goals of care. Met with patient in the infusion center while she was about to receive blood. She said she has beenfeeling overwhelmed with everything, and very tired overall. ROS: See HPI. All other systems negative. Functional Status: - Palliative Performance Scale: 90% - Activities of Daily Living: (bolded items indicate areas of independence) 6/6 BADL (transfer, toilet, continence, bathe, dress self, feed self) 7/7 IADL (meds, transport, telephone, shop, housekeeping, meal prep, money management) - Ambulates: unassited SHx: Family Support: (per ACP note she had multiple close people to her pass recently) Language: albanian Lives with: alone Prior employment: [employer] Relevant Medications: Current Outpatient Medications Medication Sig Dispense Refill [...] a day E11.9 1 Kit 0 Pen [place] 32G X 4 MM Use as directed. [...] day 200 Strip 5 OneTouch Delica Plus Wzreze54W Use as directed. Use when checking blood [...] 10 units 21 mL 3 Magic Swizzle (Aqdsxkgjd-Fhbubaum-Yigkbn) oral solution Swish and spit 15 mL in the morning and 15 mL at noon and 15 mL before bedtime. 300 mL 1 Furosemide 20 MG Oral Tablet (Lasix) Take 1 Tablet by mouth in the morning. 90 Tablet 0 No current facility-administered medications for this visit. PHYSICAL EXAMINATION: Constitutional: BP 100/33 | Pulse 67 | Temp 36.7 C (98.1 F) | Wt 87.3 kg (192 lb 7.4 oz) | LMP 09/08/2016 | SpO2 100% | BMI 29.26 kg/m | BSA 2.05 m , no acute distress, chronically ill, pleasant and cooperative, breathing ambient air comfortably HENT: normocephalic, atraumatic. Eyes: anicteric, sclera and conjunctiva normal. Neck: no stridor Chest: normal respiratory effort Abdominal: nondistended Extremities: no edema, no clubbing, no cyanosis Neuro: alert, oriented to person, place, and time Psych: normal mood and affect Data Review: External notes reviewed: Reviewed notes from Dr Verde today and information learned includes he discussed various options with her, she is not sure at this point what to do Lab / Imaging Results: WBC 0.85, very low, from today, Hb 6.9, low from today Discussion with other team members: I discussed patient with Dr Verde about her case and arranged to see her today Decision-making Capacity: Does Patient have Decisional Capacity? Yes Does Patient have a Healthcare Agent? Yes, verbally designates her brother Discussion with Patient & Family: Met with patient Introduced role of Outpatient Palliative Medicine team and reviewed symptoms as above. Reviewed patient's/family's understanding of current medical situation. She said she is still confused about things overall. She understands Dr Verde mentioned 4 options: Aggressive treatment - but she is unlikely to be able to tolerate this given her other comorbidities Limited treatments - single agent treatments Supportive care - with blood transfusions etc Hospice care - focusing on comfort at home At this point she is not in the 1st or 4th categories, she will think about what else to do Advanced Care Planning: I briefly asked her wishes for things like CPR and intubation, she said she would NOT want these things. Given how recent all this is, we did not discuss further as she seemed a bit overwhelmed. ASSESSMENT/PLAN: Juany Resendez is a/an 58 year old female referred for consultation to Palliative Medicine with theprimary diagnosis of: AML CAD, on aspirin HTN Diabetes Hx of CVA Chronic osteomyelitis of L toe Goals of care - does not want v aggressive tx, is ok with LIMITED tx at this time Recommendations: Will continue to support patient, either here or at [facility] bingo worker referral Offered therapy referral, she will wait on this Will plan to f/u in 2-3 weeks or so Thank you for this consult. We appreciate the opportunity to take part in the care of your patient. Note routed back to referring provider and PCP. I spent a total of 45 minutes on the date of service in preparation, delivery, and documentation ofthe care provided to Juany Resendez excluding any time spent in the performance of separately billed services. Kathy Borges MD Palliative Medicine Physician [facility] Office: [phone] 01/03/2024 documented in this encounter Plan of Treatment Upcoming Encounters Date Type Department Care Team (Late st Contact Info) Description 01/05/2024 10:40 AM EST Laboratory Laboratory, [facility] [address] [place] [address] [facility], Lab [address] [facility] [place] [address] 01/05/2024 11:30 AM EST Office Visit Hematology/Oncology , [facility] [address] [address] Tasneem Bryant CRNP [address] [facility] [place] [address] 01/05/2024 12:00 PM EST Hem/Onc Treatment Hematology/Oncology Treatment, [address], [place] [address] [facility], Chair1 Hem Onc [address] [place] [address], [place] [address] 01/07/2024 10:00 AM EST Office Visit [facility] [address] [facility], [place] [phone] Ivonne French PA-C [address] [facility], [place] [address] 01/07/2024 11:30 AM EST Laboratory Laboratory, [address], [place] [address] [facility], Lab [address] [place] [address], [place] [address] 01/07/2024 12:30 PM EST Hem/Onc Treatment Hematology/Oncology Treatment, [address], [place] [address] [facility], Chair4 Hem Onc [address] [place] [address], [place] [address] 01/10/2024 10:30 AM EST Laboratory Laboratory, [address], [place] [address] [facility], Lab [address] [place] [address], [place] [address] 01/10/2024 11:30 AM EST Telemedicine Hematology/Oncology , [address], [place] [address] Ortega Verde MD [address] [facility], [place] [address] [facility] Hem Onc Clinic [address] [place], [place] [address] [address] 01/10/2024 12:00 PM EST Hem/Onc Treatment Hematology/Oncology Treatment, [address] [address] [facility], Chair9 Hem Onc [address] [place], [place] [address] [address] 01/11/2024 2:30 PM EST Office Visit Cardiology, [facility] [address] [place] [address] Yadira Al CRNP [address] [place] [address] 01/12/2024 10:30 AM EST Laboratory Laboratory, [address] [phone] [facility], Lab [address] [place], [place] [address] [address] 01/12/2024 11:30 AM EST Hem/Onc Treatment Hematology/Oncology Treatment, [address] [address] [facility], Chair7 Hem Onc [address] [place], [place] [address] [address] 01/14/2024 11:30 AM EST Laboratory Laboratory, [address] [address] [facility] [address] [facility] [address] 01/14/2024 12:30 PM EST Hem/Onc Treatment Hematology/Oncology Treatment, [facility] [address] [place] [address] Gl, Chair10 Hem Onc 400 [place] [address] 01/17/2024 10:00 AM EDT Hospital Encounter OR [facility], Operating Room, [facility] - 4th Floor [address] [place] [address] [address] [facility], In And Out Surgery [address] [place] [address] 01/17/2024 10:00 AM EDT Appointment Radiology, [facility] [address] [place] [address] 01/17/2024 10:00 AM EDT - 01/17/2024 11:00 AM EDT Surgery OR [facility], Operating Room, [facility] - 4th Floor [address] [place] [address] [address] [facility], In And Out Surgery [address] [place] [address] PRE / POST CARE 01/26/2024 9:00 AM EDT Office Visit Pharmacy, [facility] [address] [place] [address] [facility] [address] [place] [address] 01/31/2024 9:00 AM EDT Imaging Radiology [facility]st [facility] [address] [place] [address] 02/10/2024 11:40 AM EDT Office Visit [facility] [address] [facility] [address] Ivonne French PA-C [address] [facility] [address] 05/10/2024 8:15 AM EDT Office Visit Ophthalmology, Francisco J [address] [place] [address] Migel Ramires MD [address] [place] [address] Scheduled Procedures Name Priority Associated Diagnoses Date/Ti me PRE / POST CARE Acute myeloid leukemia not having achieved remission (HCC) 01/17/2024 10:00 AM EDT COLONOSCOPY FLEXIBLE PROXIMAL DIAGNOSTIC Recall History of colon polyps Scheduled Referrals Name Type Priority Associated Diagnoses Orde r Schedule POPULATION HEALTH REFERRAL OP Referral Within 3 days (urgent) Acute myeloid leukemia not having achieved remission [...] this encounter Medical Devices Implanted Type Area Mineral Engineer Device Identifier Shelf Expiration Date Model / Serial / Lot Lens Intraoc 21.0 - [id number] - [id number] Implanted:Qty : 1 on 07/06/2017 by Luis Eduardo Cole MD at [facility] Left: Eye BAUSCH [employer] LOMB 01/05/2022 [id number] / [id number] / Lens Intraoc 21.0 - [id number] - [id number] Implanted:Qty : 1 on 07/20/2017 by Luis Eduardo Cole MD at OR [facility] Right: Eye BAUSCH & LOMB 01/05/2022 [id number] / [id number] / Syringe Prolaryn Del 1.0cc - [id number] Implanted:Qty : 1 on 11/20/2019 by Amber Jain MD at [place] [facility] Right: Mouth [employer] 10/21/2021 [id number] / / [id number] Implant Silastic 7 Silicone Sw - [id number] Implanted:Qty : 1 on 05/28/2020 by Farhat Pate MD at OR [facility] Right: Throat codetag [id number] / / documented as of this encounter Visit Diagnoses Diagnosis Acute myeloid leukemia not having achieved remission (HCC)- Primary Palliative care encounter Encounter for palliative care ASCVD (arteriosclerotic cardiovascular disease) Unspecified cardiovascular disease Acute myeloid leukemia not having achieved remission [...] the patient have Health Care Power of Master Motorcycle Technician? No Code Status History Code Status [...] and were consensually agreed upon. Care Teams Wire Drawing Die Maker Relationship Specialty Start Date End Date Ivonne French PA-C [address] [facility] [place] [address] PCP - General Physician Exchange Clerk 07/24/21 documented as of this encounter"
--- OUTSIDE RECORDS SUMMARY | 2024-01-29 21:28 | External Medical Summary | Summary of Care ---
Author Name Unknown Organization [facility] Address [address] [place] [address] Phone [phone] Care Team Providers Care Biomedical Scientist Name Role Phone Ivonne French PA-C Primary Care Provider +1 [phone] Encounter Details Date Type Department Care Team (Late st Contact Info) Description 01/03/2024 Orders Only Hematology/Oncology Treatment, [facility] [address] [place] [address] Ortega Verde MD [address] [place] [address] Acute myeloid leukemia not having [...] E11.9 1 Kit 0 05/25/2023 Active Pen [place] 32G X 4 MM Use as [...] Hour (toPROL XL)Indications:Craig nary artery disease involving citizen [place] coronary artery of [place] heart without angina pectoris Take 2 [...] Strip 5 12/28/2023 Active OneTouch Delica Plus [id number] Use as directed. Use when checking blood [...] Description 01/05/2024 10:40 AM EST Laboratory Laboratory, [facility] [place] [address] [facility], Lab [address] [facility] [place] [address] 01/05/2024 11:30 AM EST Office Visit Hematology/Oncology , [address] [place] [address] Tasneem Bryant CRNP 400 [facility] [place] [address] 01/05/2024 12:00 PM EST Hem/Onc Treatment Hematology/Oncology Treatment, [address] [place] [address] [facility], Chair5 Hem Onc [address] [place] [address] 01/07/2024 10:00 AM EST Office Visit [facility] [address] [place] [phone] Ivonne French PA-C [address] [place], [place] [phone] 01/07/2024 11:30 AM EST Laboratory Laboratory, [address] [address] [facility], Lab [address] [place] [address] 01/07/2024 12:30 PM EST Hem/Onc Treatment Hematology/Oncology Treatment, [address] [place] [address] [facility], Chair4 Hem Onc [address] [place] [address], [place] [address] 01/10/2024 11:30 AM EST Telemedicine Hematology/Oncology , [address] [address] Ortega Verde MD [address] [place] [address] Shayla, Telemed [facility] Hem Onc [facility] [address] [place] [address] 01/10/2024 2:30 PM EST Office Visit Cardiology, [facility] [address] [place] [address] Maria Luz aSunders CRNP [address] [place] [address] 01/17/2024 10:00 AM EDT Hospital Encounter OR [facility], Operating Room, [facility] - 4th Floor [address] [place] [address] [facility], In And Out Surgery [address] [place] [address] 01/17/2024 10:00 AM EDT Appointment Radiology, [facility] [address] [place] [address] 01/17/2024 10:00 AM EDT - 01/17/2024 11:00 AM EDT Surgery OR [facility], Operating Room, [facility] - 4th Floor [address] [place] [address] [facility], In And Out Surgery [address] [place] [address] PRE / POST CARE 01/26/2024 9:00 AM EDT Office Visit Pharmacy, [facility] [address] [place] [address] [place] [address] [place] [address] 01/31/2024 9:00 AM EDT Imaging Radiology [facility] [address] [facility] [address] [place] [address] 02/10/2024 11:40 AM EDT Office Visit Family [facility] [address] [facility] [phone] Ivonne French PA-C [address] [place] [address] 05/10/2024 8:15 AM EDT Office Visit Ophthalmology[address] [place] [address] Migel Ramires MD [address] [place] [address] Scheduled Orders Name Type Priority Associated Diagnoses [...] for 52 Occurrences starting 01/03/2024 until 01/03/2025 Scheduled Procedures Name Priority Associated Diagnoses Date/Ti [...] this encounter Medical Devices Implanted Type Area Oyster Floater Device Identifier Shelf Expiration Date Model / Serial / Lot Lens Intraoc 21.0 - [id number] - [id number] Implanted:Qty : 1 on 07/06/2017 by Luis Eduardo Cole MD at OR [facility] Left: Eye BAUSCH & LOMB 01/05/2022 [id number] / [id number] / Lens Intraoc 21.0 - [id number] - [id number] Implanted:Qty : 1 on 07/20/2017 by Luis Eduardo Cole MD at OR [facility] Right: Eye BAUSCH & LOMB 01/05/2022 [id number] / [id number] / Syringe Prolaryn Del 1.0cc - [id number] Implanted:Qty : 1 on 11/20/2019 by Amber Jain MD at OR [facility] Right: Mouth [employer] 10/21/2021 [id number] / / [id number] Implant Silastic 7 Silicone Sw - [id number] Implanted:Qty : 1 on 05/28/2020 by Farhat Pate MD at OR [facility] Right: Throat [employer] [id number] / / documented as of this [...] the patient have Health Care Power of Stitcher Special Machine? No Code Status History Code Status Date [...] and were consensually agreed upon. Care Teams Biomedical Scientist Relationship Specialty Start Date End Date Ivonne French PA-C [address] [place] [address] PCP - General Physician Broaching Machine Set Up Operator 07/24/21 documented as of this encounter
--- OUTSIDE RECORDS SUMMARY | 2024-01-29 21:29 | External Medical Summary ---
Author Name Unknown Address Unknown Organization K1F:LABORATORY [facility] - [address] [place] [place] [address] Laboratory Report Ordering Provider Test Date Status RAMIN HACKETT 01/03/2024 08:33:12 Final Observation Date Value Abnormality Reference (Units ) Status SYNC LEUKOCYTES IN BLOOD BY AUTOMATED COUNT 01/03/2024 08:33:12 0.85 Below lower panic limits 4.00-10.80 (K/uL) Final Lymphocytes/100 leukocytes in Blood by Manual count 01/03/2024 08:33:12 99.0 Above high normal 18.0-42.0 (%) Final Monocytes/100 leukocytes in Blood by Manual count 01/03/2024 08:33:12 1.0 1.0-11.0 (%) Final Lymphocytes [#/volume] in Blood by Manual count 01/03/2024 08:33:12 0.84 Below low normal 1.00-4.80 (K/uL) Final Monocytes [#/volume] in Blood by Manual count 01/03/2024 08:33:12 0.01 0.00-1.10 (K/uL) Final Performing Location [facility] [address] [place] [address]
--- OUTSIDE RECORDS SUMMARY | 2024-01-29 21:29 | External Medical Summary | Summary of Care ---
Author Name Unknown Organization [facility] Address [address] [place] [address] Phone [phone] Care Team Providers Care Car Tracer Name Role Phone Ivonne French PA-C Primary Care Provider [phone] [phone] Reason for Visit * Reason Onset Date Comments Scheduling 12/31/2023 Encounter Details Date Type Department Care Team (Late st Contact Info) Description 12/31/2023 Telephone Interventional Radiology, [facility] [address] [place] [address] Richard Moreira PA-C [address] [place] [address] Scheduling Allergies Active Allergy Reactions Criticality Noted Date Comments Adhesive Tape 04/21/2016 Glue off the old style medical tape. documented as of this encounter (statuses as of 12/31/2023) Medications Medication Sig Dispensed Refills Start Date [...] E11.9 1 Kit 0 05/25/2023 Active Pen [place] 32G X 4 MM Use as directed. [...] Hour (toPROL XL)Indications:Craig nary artery disease involving [place] coronary artery of [place] heart without angina pectoris Take 2 Tablets [...] per day 200 Strip 5 12/28/2023 Active NakedRoomTouch Delica Plus [id number] Use as directed. Use when checking blood [...] as of this encounter (statuses as of 12/31/2023) Active Problems Problem Noted Date Diagnosed Date [...] as of this encounter (statuses as of 12/31/2023) Resolved Problems Problem Noted Date Diagnosed Date [...] as of this encounter (statuses as of 12/31/2023) Immunizations Name Administration Dates Next Due COVID-19 [...] - Maria R Agosto OSA - 12/31/2023 10:14 AM EST Called patient to schedule Bone Marrow Biopsy . No answer. Left message for patient to return call. documented in this encounter Plan of Treatment Upcoming Encounters Date Type Department Care Team (Late st Contact Info) Description 01/03/2024 9:00 AM EST Laboratory Laboratory, [address] [place] [address] [facility], Lab [address] [place], [place] [address] [address] 01/03/2024 10:00 AM EST Hem/Onc Treatment Hematology/Oncology Treatment, [address] [place] [address] [facility], Chair8 Hem Onc [address] [place], [place] [address] [address] 01/05/2024 10:40 AM EST Laboratory Laboratory, [address], [place] [address] [facility], Lab [address] [place] [address], [place] [address] 01/05/2024 11:30 AM EST Office Visit Hematology/Oncology, [address], [place] [address] Tasneem Bryant CRNP [address] [place] [address], [place] [address] 01/05/2024 12:00 PM EST Hem/Onc Treatment Hematology/Oncology Treatment, [address], [place] [address] [facility], Chair5 Hem Onc [address] [place] [address], [place] [address] 01/07/2024 10:00 AM EST Office Visit [address] [phone] Ivonne French PA-C [address] [place] [address] 01/07/2024 11:30 AM EST Laboratory Laboratory, [address], [place] [address] [facility], Lab [address] [place] [address], [place] [address] 01/07/2024 12:30 PM EST Hem/Onc Treatment Hematology/Oncology Treatment, [address], [place] [address] [facility], Chair4 Hem Onc [address] [place] [address], [place] [address] 01/26/2024 9:00 AM EDT Office Visit Pharmacy, [facility] 132 [facility] [place] [address] [facility] [place] [address] 01/31/2024 9:00 AM EDT Imaging Radiology [facility] 1st [facility] 132 [facility] [place] [address] 02/10/2024 11:40 AM EDT Office Visit Family [facility] [place] [address] [place] [phone] Ivonne French PA-C [address] [place] [address] 05/10/2024 8:15 AM EDT Office Visit Ophthalmology, [place] [address] [place] [address] Migel Ramires MD [address] [place] [address] Scheduled Procedures Name Priority Associated Diagnoses Date/Ti [...] this encounter Medical Devices Implanted Type Area Food And Drug Research Scientist Device Identifier Shelf Expiration Date Model / Serial / Lot Lens Intraoc 21.0 - [id number] - [id number] Implanted:Qty : 1 on 07/06/2017 by Luis Eduardo Cole MD at [facility] Left: Eye BAUSCH & LOMB 01/05/2022 [id number] / [id number] / Lens Intraoc 21.0 - [id number] - [id number] Implanted:Qty : 1 on 07/20/2017 by Luis Eduardo Cole MD at OR [facility] Right: Eye BAUSCH & LOMB 01/05/2022 [id number] / [id number] / Syringe Prolaryn Del 1.0cc - [id number] Implanted:Qty : 1 on 11/20/2019 by Amber Jain MD at OR [facility] Right: Mouth [employer] 10/21/2021 [id number] / / [id number] Implant Silastic 7 Silicone Sw - [id number] Implanted:Qty : 1 on 05/28/2020 by Farhat Pate MD at OR [facility] Right: Throat [employer] [id number] / / documented as of this [...] the patient have Health Care Power of Marine Design Engineer? No Code Status History Code Status [...] were consensually agreed upon. Care Teams Car Tracer Relationship Specialty Start Date End Date Ivonne French PA-C [address] [address] PCP - General Physician Sales Planner 07/24/21 documented as of this encounter
--- OUTSIDE RECORDS SUMMARY | 2024-01-29 21:29 | External Medical Summary | Summary of Care ---
Author Name Unknown Organization [facility] Address [address] [place] [address] Phone [phone] Care Team Providers Care Coffee Blender Name Role Phone Ivonne French PA-C Primary Care Provider [phone] [phone] Reason for Visit * Reason Comments Outpatient Testing Encounter Details Date Type Department Care Team (Late st Contact Info) Description 12/31/2023 8:00 AM EST Laboratory Laboratory, [facility] [address] [place] [phone] [facility], Lab [address] [place] [address] Acute myeloid leukemia not having achieved remission (HCC); Encounter for antineoplastic chemotherapy Allergies Active Allergy [...] E11.9 1 Kit 0 05/25/2023 Active Pen [place] 32G X 4 MM Use as directed. 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 Use when checking blood [...] Upcoming Encounters Date Type Department Care Team (Latest Contact Info) Description 12/31/2023 9:00 AM EST Telemedicine Hematology/Oncolog y, [address] [address] Ortega Verde MD [address] [place] [address] [place], Telemed [facility] Hem Onc Clinic [address] [place], [place] [address] [address] Encounter for antineoplastic chemotherapy* 12/31/2023 10:00 AM EST Hem/Onc Treatment Hematology/Oncolog y Treatment, [address] [place] [address] [facility], Chair8 Hem Onc [address] [place] [address] [place] [address] Arrived 01/03/2024 9:00 AM EST Laboratory Laboratory, [address] [place] [phone] [facility], Lab 400 [place] [address] 01/03/2024 10:00 AM EST Hem/Onc Treatment Hematology/Oncolog y Treatment, [address], [place] [address] [facility], Chair8 Hem Onc [address] [place] [address], [place] [address] 01/05/2024 10:40 AM EST Laboratory Laboratory, [address], [place] [phone] [facility], Lab [address] [place] [address], [place] [address] 01/05/2024 11:30 AM EST Office Visit Hematology/Oncolog y, [address], [place] [address] Tasneem Bryant [address], [place] [address] 01/05/2024 12:00 PM EST Hem/Onc Treatment Hematology/Oncolog y Treatment, [address], [place] [address] [facility], Chair5 Hem Onc [address] [place] [address], [place] [address] 01/07/2024 10:00 AM EST Office Visit [facility] [address] [facility], [place] [phone] Ivonne Frnech PA-C [address] [place] [facility] [place] [address] 01/07/2024 11:30 AM EST Laboratory Laboratory, [facility] 400 [facility] [address] [place] [address] [facility], Lab 400 [facility], [place] [address] 01/07/2024 12:30 PM EST Hem/Onc Treatment Hematology/Oncolog y Treatment, [facility] 400 [facility] [place] [place] [address] [facility], Chair4 Hem Onc [address] [place], [place] [address] [address] 01/26/2024 9:00 AM EDT Office Visit Pharmacy, [facility] 132 [facility] [place] [address] [facility] 132 [facility] [place] [address] 01/31/2024 9:00 AM EDT Imaging Radiology [facility] 1st [facility] 132 [facility] [place] [address] 02/10/2024 11:40 AM EDT Office Visit [facility] [address] [place] [address] Ivonne French PA-C [address] [place] [address] 05/10/2024 8:15 AM EDT Office Visit Ophthalmology, [place] [address] [place] [address] Migel Ramires MD [address] [place] [address] Pending Results Name Type Priority Associated Diagnoses Date /Time CBC WITH WBC DIFFERENTIAL Lab Routine Acute myeloid leukemia not having achieved remission (HCC) 12/31/2023 7:58 AM EST TYPE AND SCREEN Lab Routine Acute myeloid leukemia not having achieved remission (HCC) 12/31/2023 7:58 AM EST DIFFERENTIAL, AUTOMATED Lab Routine Acute myeloid leukemia not having achieved remission (HCC) 12/31/2023 7:58 AM EST COMPREHENSIVE METABOLIC PANEL Lab STAT Encounter for antineoplastic chemotherapy 12/31/2023 7:45 AM EST Scheduled Procedures Name Priority Associated [...] 12/12/2024 12/12/2023, 04/09, 12/25/2022, Additional history exists GFR 12/28/2024 12/28/2023, 12/09, 12/26/2023, Additional history exists Depression Screening 12/30/2024 12/30/2023 PAP SMEAR-EVERY 3 YRS,AGES 18-100 09/09/2026 09/09/2023, [...] this encounter Medical Devices Implanted Type Area Furniture Cleaner Device Identifier Shelf Expiration Date Model / Serial / Lot Lens Intraoc 21.0 - [id number] - [id number] Implanted:Qty : 1 on 07/06/2017 by Luis Eduardo Cole MD at OR [facility] Left: Eye BAUSCH & LOMB 01/05/2022 [id number] / [id number] / Lens Intraoc 21.0 - [id number] - [id number] Implanted:Qty : 1 on 07/20/2017 by Luis Eduardo Cole MD at OR [facility] Right: Eye BAUSCH & LOMB 01/05/2022 [id number] / [id number] / Syringe Prolaryn Del 1.0cc - [id number] Implanted:Qty : 1 on 11/20/2019 by Amber Jain MD at OR [facility] Right: Mouth [employer] 10/21/2021 [id number] / / [id number] Implant Silastic 7 Silicone Sw - [id number] Implanted:Qty : 1 on 05/28/2020 by Farhat Pate MD at OR [facility] Right: Throat [employer] [id number] / / documented as of this encounter Procedures Procedure Name Priority Date/Time Associated Diagnosis Comments CBC Routine 12/31/2023 7:58 AM EST Acute myeloid leukemia not having achieved remission (HCC) documented in this encounter Results * (ABNORMAL) CBC (12/31/2023 7:58 AM EST) WBC 0.87(LL) 4.00 - 10.80 K/uL 12/31/2023 8:30 AM EST LABORATORY [facility] RBC 2.57 3.85 - 5.15 M/uL 12/31/2023 8:30 AM EST LABORATORY [facility] HGB 7.8(L) 12.0 - 15.3 g/dL 12/31/2023 8:30 AM EST LABORATORY [facility] HCT 22.0(L) 36.0 - 45.2 % 12/31/2023 8:30 AM EST LAB[facility]ATORY [facility] MCV 85.6 81.5 - 97.5 fL 12/31/2023 8:30 AM EST LABORATORY [facility] MCH 30.4 27.0 - 34.0 pg 12/31/2023 8:30 AM EST LABORATORY GL MCHC 35.5 32.0 - 36.0 g/dL 12/31/2023 8:30 AM EST LABORATORY [facility] RDW 14.1 11.5 - 15.5 % 12/31/2023 8:30 AM EST LABORATORY GL PLT 28(L) 140 - 400 K/uL 12/31/2023 8:30 AM EST LABORATORY GL MPV 10.6 6.6 - 11.1 fL 12/31/2023 8:30 AM EST LABORATORY [facility] nRBCs 0 <=0 /100 WBCs 12/31/2023 8:30 AM EST LABORATORY [facility] Blood Venous blood specimen / Unknown Venipuncture / Unknown 12/31/2023 7:58 AM EST 12/31/2023 7:58 AM EST Nilton Senior MD LAB BLOOD ORDERABLES LABORATORY [facility] [address] [place] [address] documented in this encounter Visit Diagnoses Diagnosis Encounter for antineoplastic chemotherapy- Primary Acute myeloid leukemia not having achieved remission (HCC) Encounter for antineoplastic chemotherapy documented in this encounter Advance Directives Latest Code Status on File Code Status Date Activated Date Inactivated Comments No Code 11/24/2023 7:24 PM 12/28/2023 9:25 PM This order reflects the patients wishes and were consensually agreed upon. Question Answer Comments Discussion of Advance Directives occurred with: Patient Does the patient have a Living Will? No Does the patient have Health Care Power of Dry Kiln Operator Helper? No Code Status History Code Status Date [...] and were consensually agreed upon. Care Teams Coffee Blender Relationship Specialty Start Date End Date Ivonne French PA-C [address] [facility] [place] [address] PCP - General Physician Director Of Quality Control 07/24/21 documented as of this encounter
--- OUTSIDE RECORDS SUMMARY | 2024-01-29 21:29 | External Medical Summary ---
Author Name Unknown Address Unknown Organization K1F:LABORATORY [facility] - [address] [place] [address] Laboratory Report Ordering Provider Test Date Status RAMIN HACKETT 01/03/2024 08:33:12 Final Observation Date Value Abnormality Reference (Units ) Status WBC, Total 01/03/2024 08:33:12 0.85 Below lower panic limits 4.00-10.80 (K/uL) Final RBC 01/03/2024 08:33:12 2.31 3.85-5.15 (M/uL) Final Hemoglobin 01/03/2024 08:33:12 6.9 Below low normal 12.0-15.3 (g/dL) Final HCT 01/03/2024 08:33:12 19.7 Below low normal 36.0-45.2 (%) Final MCV 01/03/2024 08:33:12 85.3 81.5-97.5 (fL) Final MCH 01/03/2024 08:33:12 29.9 27.0-34.0 (pg) Final MCHC 01/03/2024 08:33:12 35.0 32.0-36.0 (g/dL) Final RDW 01/03/2024 08:33:12 14.0 11.5-15.5 (%) Final Platelets 01/03/2024 08:33:12 30 Below low normal 140-400 (K/uL) Final MPV 01/03/2024 08:33:12 10.8 6.6-11.1 (fL) Final Nucleated erythrocytes/100 leukocytes [Ratio] in Blood by Automated count 01/03/2024 08:33:12 0 <=0 (/100 WBCs) Final Performing Location LABORATORY [facility] - [address] [place] [address]
--- OUTSIDE RECORDS SUMMARY | 2024-01-29 21:29 | External Medical Summary | Summary of Care ---
Author Name Unknown Organization [facility] Address [address] [place] [address] Phone [phone] Care Team Providers Care Product Design Engineer Name Role Phone Ivonne French PA-C Primary Care Provider [phone] Reason for Visit * Reason Comments Outpatient Testing Encounter Details Date Type Department Care Team (Late st Contact Info) Description 12/31/2023 8:00 AM EST Laboratory Laboratory, [facility] [address] [place] [id number] [facility], Lab [address] [place] [address] Acute myeloid leukemia not having achieved remission [...] E11.9 1 Kit 0 05/25/2023 Active Pen [place] 32G X 4 MM Use as directed. 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 30 Tablet 1 12/29/2023 Active Bridge Software LLCTouch Verio In Vitro Strip (Glucose Blood) Use when checking blood glucose levels 4 times per day 200 Strip 5 12/28/2023 Active [employer] Software LLCTouch Delica Plus [id number] Use as directed. Use when checking blood [...] Team (Late st Contact Info) Description 12/31/2023 8:30 AM EST Pharmacy Pharmacy Hematology Oncology [facility] [address] [place] [address] [facility], [facility] Hem/Onc [address] [place] [address] 12/31/2023 9:00 AM EST Telemedicine Hematology/Oncology, [address] [address] Ortega Verde MD [address] [place] [address] Shayla, Telemed [facility] Hem Onc Clinic [address] [address] [address] Arrived 12/31/2023 10:00 AM EST Hem/Onc Treatment Hematology/Oncology Treatment, [facility] [address] [facility] [address] [facility], Chair8 Hem Onc [address] [address] Arrived 01/03/2024 9:00 AM EST Laboratory Laboratory, [address], [place] [address] [facility], Lab [address] [place] [address], [place] [address] 01/03/2024 10:00 AM EST Hem/Onc Treatment Hematology/Oncology Treatment, [address], [place] [address] [facility], Chair8 Hem Onc [address] [place] [address], [place] [address] 01/05/2024 10:40 AM EST Laboratory Laboratory, [address], [place] [address] [facility], Lab [address] [place] [address], [place] [address] 01/05/2024 11:30 AM EST Office Visit Hematology/Oncology, [address], [place] [address] Tasneem Bryant [address], [place] [address] 01/05/2024 12:00 PM EST Hem/Onc Treatment Hematology/Oncology Treatment, [address], [place] [address] [facility], Chair5 Hem Onc [address] [place] [address], [place] [address] 01/07/2024 10:00 AM EST [address] [address] Ivonne French PA-C [address] [facility], [place] [address] 01/07/2024 11:30 AM EST Laboratory Laboratory, [address], [place] [address] [facility], Lab 400 [place] [address] 01/07/2024 12:30 PM EST Hem/Onc Treatment Hematology/Oncology Treatment, [facility] 400 [facility], [place] [address] [facility], Chair Hem Onc [address] [place] [address], [place] [address] 01/26/2024 9:00 AM EDT Office Visit Pharmacy, [facility] [address] [facility] [place] [address] [facility] [address] [facility] [place] [address] 01/31/2024 9:00 AM EDT Imaging Radiology [address] [facility] [place] [address] 02/10/2024 11:40 AM EDT [facility] [address] [facility] [address] Ivonne French PA-C [address] [facility] [address] [facility] [address] 05/10/2024 8:15 AM EDT Office Visit [facility], [place] [address] [place] [address] Migel Ramires MD [address] [place] [address] Pending Results Name Type Priority Associated Diagnoses Date /Time CBC WITH WBC DIFFERENTIAL Lab Routine Acute myeloid leukemia not having achieved remission (HCC) 12/31/2023 7:58 AM EST TYPE AND SCREEN Lab Routine Acute myeloid leukemia not having achieved remission (HCC) 12/31/2023 7:58 AM EST CBC Lab Routine Acute myeloid leukemia not having achieved remission (HCC) 12/31/2023 7:58 AM EST DIFFERENTIAL, AUTOMATED Lab Routine Acute myeloid leukemia not having achieved remission (HCC) 12/31/2023 7:58 AM EST Scheduled Procedures Name Priority Associated [...] this encounter Medical Devices Implanted Type Area Certified Technician Specialist Device Identifier Shelf Expiration Date Model / Serial / Lot Lens Intraoc 21.0 - [id number] - [id number] Implanted:Qty : 1 on 07/06/2017 by Luis Eduardo Cole MD at OR [facility] Left: Eye BAUSCH & LOMB 01/05/2022 [id number] / [id number] / Lens Intraoc 21.0 - [id number] - [id number] Implanted:Qty : 1 on 07/20/2017 by Luis Eduardo Cole MD at OR [facility] Right: Eye BAUSCH & LOMB 01/05/2022 [id number] / [id number] / Syringe Prolaryn Del 1.0cc - [id number] Implanted:Qty : 1 on 11/20/2019 by Amber Jain MD at OR [facility] Right: Mouth [employer] 10/21/2021 [id number] / / [id number] Implant Silastic 7 Silicone Sw - [id number] Implanted:Qty : 1 on 05/28/2020 by Farhat Pate MD at OR [facility] Right: Throat RecruitLoop [id number] / / documented as of this [...] the patient have Health Care Power of Iron And Steel Work Supervisor? No Code Status History Code Status [...] and were consensually agreed upon. Care Teams Product Design Engineer Relationship Specialty Start Date End Date Ivonne French PA-C [address] [facility] [place] [address] PCP - General Physician Research Computing Specialist 07/24/21 documented as of this encounter
--- OUTSIDE RECORDS SUMMARY | 2024-01-29 21:29 | External Medical Summary | Summary of Care ---
Author Name Unknown Organization [facility] Address [address] [place] [address] Phone [phone] Care Team Providers Care 3D Specialist Name Role Phone Ivonne French PA-C Primary Care Provider [phone] Reason for Visit * Reason Comments Outpatient Testing Encounter Details Date Type Department Care Team (Late st Contact Info) Description 01/03/2024 8:40 AM EST Laboratory Laboratory, [facility] [address] [place] [phone] [facility], Lab [address] [place] [address] Acute myeloid leukemia not having achieved remission [...] E11.9 1 Kit 0 05/25/2023 Active Pen [place]ell 32G X 4 MM Use as directed. 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 135 Tablet 1 12/28/2023 Active Acyclovir 400 MG Oral Tablet (Zovirax) Take 1 Tablet by mouth in the morning and 1 Tablet before bedtime. 60 Tablet 3 12/28/2023 Active levoFLOXacin 500 MG Oral Tablet (Levaquin) Take 1 Tablet by mouth daily in the morning. 30 Tablet 1 12/29/2023 Active BringItTouch Verio In Vitro Strip (Glucose Blood) Use when checking blood glucose levels 4 times per day 200 Strip 5 12/28/2023 Active BringItTouch Delica Plus [id number] Use as directed. Use when checking blood [...] encounter Miscellaneous Notes * Addendum Note - Lenore López PBT - 01/03/2024 8:39 AM ESTAddended by: LENORE LÓPEZ on: 01/03/2024 08:39 AM Modules accepted: Orders documented in this encounter Plan of Treatment Upcoming Encounters Date Type Department Care Team (Late st Contact Info) Description 01/03/2024 9:30 AM EST Office Visit Hematology/Oncology , [address] [place] [address] Ortega Verde MD [address] [place] [address] Arrived 01/03/2024 10:00 AM EST Hem/Onc Treatment Hematology/Oncology Treatment, [address] [address] [facility], Chair8 Hem Onc [address] [place] [address] [place] [address] Arrived 01/05/2024 10:40 AM EST Laboratory Laboratory, [address] [place] [address] [facility], Lab [address] [place] [address], [place] [address] 01/05/2024 11:30 AM EST Office Visit Hematology/Oncology , [address] [place] [address] Tasneem Bryant CRNP [address] [place] [address], [place] [address] 01/05/2024 12:00 PM EST Hem/Onc Treatment Hematology/Oncology Treatment, [address], [place] [address] [facility], Chair5 Hem Onc [address] [place] [address], [place] [address] 01/07/2024 10:00 AM EST Office Visit [facility] [address] [place] [address] Ivonne French, PA-C [address] [place] [address] 01/07/2024 11:30 AM EST Laboratory Laboratory, [address] [place] [address] [facility], Lab 400 [place] [address] 01/07/2024 12:30 PM EST Hem/Onc Treatment Hematology/Oncology Treatment, [address], [place] [address] [facility], Chair4 Hem Onc [address] [place] [address], [place] [address] 01/17/2024 10:00 AM EDT Hospital Encounter OR GL, Operating Room, [facility] - 4th Floor [address] [place] [address] [facility], In And Out Surgery [address] [place] [address] 01/17/2024 10:00 AM EDT Appointment Radiology, [facility] [address] [place] [address] 01/17/2024 10:00 AM EDT - 01/17/2024 11:00 AM EDT Surgery OR [facility], Operating Room, [facility] - 4th Floor [address] [place] [address] [facility], In And Out Surgery [address] [place] [address] PRE / POST CARE 01/26/2024 9:00 AM EDT Office Visit Pharmacy, [facility] 132 [facility] [place] [address] [facility] 132 [facility] [place] [address] 01/31/2024 9:00 AM EDT Imaging Radiology [facility] 1st [facility] [address] [facility] [place] [address] 02/10/2024 11:40 AM EDT Office Visit [facility] [address] [facility] [place] [address] Ivonne French PA-C [address] [place] [address] 05/10/2024 8:15 AM EDT Office Visit Ophthalmology, [place] [address] [place] [address] Migel Ramires MD [address] [place] [address] Pending Results Name Type Priority Associated Diagnoses Date /Time CBC WITH WBC DIFFERENTIAL Lab Routine Acute myeloid leukemia not having achieved remission (HCC) 01/03/2024 8:33 AM EST TYPE AND SCREEN Lab Routine Acute myeloid leukemia not having achieved remission (HCC) 01/03/2024 8:33 AM EST DIFFERENTIAL, AUTOMATED Lab Routine Acute myeloid leukemia not having achieved remission (HCC) 01/03/2024 8:33 AM EST EXTRA TUBES Lab Routine 01/03/2024 8: 33 AM EST EXTRA GREEN TOP WITH GEL Lab Routine 01/03/2024 8:33 AM EST Scheduled Procedures Name Priority Associated [...] this encounter Medical Devices Implanted Type Area City Plant Supervisor Device Identifier Shelf Expiration Date Model / Serial / Lot Lens Intraoc 21.0 - [id number] - [id number] Implanted:Qty : 1 on 07/06/2017 by Luis Eduardo Cole MD at OR [facility] Left: Eye BAUSCH & LOMB 01/05/2022 [id number] / [id number] / Lens Intraoc 21.0 - [id number] - [id number] Implanted:Qty : 1 on 07/20/2017 by Luis Eduardo Cole MD at OR [facility] Right: Eye BAUSCH [employer] LOM[employer] 01/05/2022 [id number] / [id number] / Syringe Prolaryn Del 1.0cc - [id number] Implanted:Qty : 1 on 11/20/2019 by Amber Jain MD at OR [facility] Right: Mouth [employer] 10/21/2021 [id number] / / [id number] Implant Silastic 7 Silicone Sw - [id number] Implanted:Qty : 1 on 05/28/2020 by Farhat Pate MD at OR [facility] Right: Throat FittingRoom [id number] / / documented as of this encounter Procedures Procedure Name Priority Date/Time Associated Diagnosis Comments CBC Routine 01/03/2024 8:33 AM EST Acute myeloid leukemia not having achieved remission (HCC) documented in this encounter Results * (ABNORMAL) CBC (01/03/2024 8:33 AM EST) WBC 0.85(LL) 4.00 - 10.80 K/uL 01/03/2024 8:49 AM EST LAB[facility]ATORY [facility] RBC 2.31 3.85 - 5.15 M/uL 01/03/2024 8:49 AM EST [facility] HGB 6.9(L) 12.0 - 15.3 g/dL 01/03/2024 8:49 AM EST [facility] HCT 19.7(L) 36.0 - 45.2 % 01/03/2024 8:49 AM EST [facility] MCV 85.3 81.5 - 97.5 fL 01/03/2024 8:49 AM EST [facility] MCH 29.9 27.0 - 34.0 pg 01/03/2024 8:49 AM EST [facility] MCHC 35.0 32.0 - 36.0 g/dL 01/03/2024 8:49 AM EST [facility] RDW 14.0 11.5 - 15.5 % 01/03/2024 8:49 AM EST [facility] PLT 30(L) 140 - 400 K/uL 01/03/2024 8:49 AM EST [facility] MPV 10.8 6.6 - 11.1 fL 01/03/2024 8:49 AM EST [facility] nRBCs 0 <=0 /100 WBCs 01/03/2024 8:49 AM EST [facility] Blood Venous blood specimen / Unknown Venipuncture / Unknown 01/03/2024 8:33 AM EST 01/03/2024 8:35 AM EST Nilton Senior MD LAB BLOOD ORDERABLES [facility] [address] [place] [address] documented in this encounter Visit Diagnoses Diagnosis [...] the patient have Health Care Power of Rubber Moulding Machine Operator? No Code Status History Code Status [...] and were consensually agreed upon. Care Teams 3D Specialist Relationship Specialty Start Date End Date Ivonne French PA-C [address] [facility] [place] [address] PCP - General Physician Glued Wood Tester 07/24/21 documented as of this encounter
--- OUTSIDE RECORDS SUMMARY | 2024-01-29 21:29 | External Medical Summary ---
Author Name Unknown Address Unknown Organization [id number]:LABORATORY [facility] - [address] [place] [address] Laboratory Report Ordering Provider Test Date Status RAMIN HACKETT 01/03/2024 08:33:12 Final Observation Date Value Abnormality Reference (Units ) Status ABO 01/03/2024 08:33:12 O Final RH 01/03/2024 08:33:12 Positive Final RED BLOOD CELL ANTIBODY SCREEN 01/03/2024 08:33:12 Negative Final SPECIMEN EXPIRATION DATE 01/03/2024 08:33:12 01/06/2024 23:59 Final Performing Location LABORATORY [facility] - [address] [place] [address]
--- OUTSIDE RECORDS SUMMARY | 2024-01-29 21:29 | External Medical Summary | Summary of Care ---
Author Name Unknown Organization [facility] Address [address] [place] [address] Phone [phone] Care Team Providers Care Supervisor Fabrication Name Role Phone Ivonne French PA-C Primary Care Provider [phone] Reason for Visit * Reason Comments Follow Up Encounter Details Date Type Department Care Team (Late st Contact Info) Description 12/31/2023 9:00 AM EST Telemedicine Hematology/Oncology , [facility] [address] [place] [address] Ortega Verde MD [address] [place] [address] Alexandra Mcguireed [facility] Onc [facility] [address] [place] [address] Acute myeloid leukemia not having achieved remission (HCC)*; Encounter for antineoplastic chemotherapy; Encounter to establish care with new doctor; Encounter for examination following treatment at hospital; Encounter to discuss test results; Encounter to discuss treatment options; Goals of care, counseling/discussion; Difficulty coping; Postsurgical hypothyroidism; Thrombocytopenia (HCC); Pancytopenia (HCC) Allergies Active Allergy Reactions Criticality Noted [...] E11.9 1 Kit 0 05/25/2023 Active Pen Vaughn 32G X 4 MM Use as directed. [...] Hour (toPROL XL)Indications:Craig nary artery disease involving [place] coronary artery of [place] heart without angina pectoris Take 2 Tablets by mouth daily in the morning. 135 Tablet 1 12/28/2023 Active Acyclovir 400 MG Oral Tablet (Zovirax) Take 1 Tablet by mouth in the morning and 1 Tablet before bedtime. 60 Tablet 3 12/28/2023 Active levoFLOXacin 500 MG Oral Tablet (Levaquin) Take 1 Tablet by mouth daily in the morning. 30 Tablet 1 12/29/2023 Active NumerexTouch Verio In Vitro Strip (Glucose Blood) Use when checking blood glucose levels 4 times per day 200 Strip 5 12/28/2023 Active Zartisuch Delica Plus [id number] Use as directed. Use when checking blood [...] Sign Reading Time Taken Comments Blood Pressure 94/41 12/31/2023 9:14 AM EST Pulse 73 12/31/2023 9:14 AM EST Temperature 37 C (98.6 F) 12/31/2023 9:14 AM EST Respiratory Rate - - Oxygen Saturation 100% 12/31/2023 9:14 AM EST Inhaled Oxygen Concentration - - Weight 87.2 kg (192 lb 4.8 oz) 12/31/2023 9:14 A M EST Height - - Body Mass Index 29.24 11/24/2023 5:00 PM EST documented in this [...] this encounter Patient Instructions * Patient Instructions* Ortega Verde MD - 12/31/2023 9:40 AM EST You have AML ( Acute Myeloid Leukemia) documented in this encounter Progress Notes * Ortega Verde MD - 12/31/2023 9:14 AM EST Images from the original note were not included. TeleVIDEO Visit Patient location: CLINIC. I was in a different facility from the patient. After connecting through televideo, patient was verified with two unique identifiers. Patient (or authorized legal order entry representative) was then informed that this was [...] that I have reviewed their record in [facility] and presented the opportunity for them to ask any questions regarding the visit today. The patient agreed to participate. 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 Molecular: [...] Decitabine and Venetoclax with Inpatient ramp-up (AML) [id number] ECOG: Performance Status 2 = 60-70% Bedtime, < 50% daytime History of present illness (at time of my initial evaluation on 12/31/2023 ): Juany Resendez is a 58 year old female who presented to my office today, unaccompanied, to establish care with linter tender for her newly diagnosed AML. Patient is a , she lives alone. She lives about 1 hour away from [facility].Currently on disability. Her brother lives 10 minutes away from her. She had history of partial bigtoe amputation, and she started using cane recently. Patient was initially evaluated by Dr. Rice, then by Dr. Senior in [place], then admitted to the hospital, and coming now to [facility] follow-up with me as an outpatient. He had prolonged hospital stay, with the following hospital course 11/24/2023 - 12/28/2023 (34 days) : "ADMISSION HISTORY & PHYSICAL EXAM (focused): Ms. Resendez is a 58 y/o female who lives in [place] by herself. Her PMH includes DM2 on insulin with partial great toe amputation, HTN, dyslipidemia, multinodular goiter s/p total thyroidectomy with resulting postsurgical hypothyroidism, enchondroma femur, paralytic ptosis left eyelid, HTN/CAD s/p [place] years ago, s/p ischemic stroke x 2 [...] for last 1 year. She states her visitor services assistant is aware of these sx and they [...] as much as possible to help prevent [place]. her blood counts dropped as expected and [...] discharged her home with close follow-up at [facility]." Patient is still feel weak [...] DIAGNOSTIC (RECTUM) 12/16/2016 adenomatous polyps, repeat 5 yrs/[facility] COLONOSCOPY, DIAGNOSTIC (RECTUM) 06/03/2022 diverticulosis, fair prep, repeat 5 yrs / [facility] EGD, FLEXIBLE, DIAGNOSTIC 12/16/2016 normal bx/[facility] EGD, FLEXIBLE, W/BIOPSY 07/30/2010 esophagitis, await BX LARYNGOPLASTY MEDIALIZATION UNILATERAL Right 05/28/2020 LARYNGOPLASTY, MEDIALIZATION UNILATERAL performed by Farhat Pate MD at [place] [facility] LARYNGOSCOPY, VOCAL CORD INJECTION Right 11/20/2019 LARYNGOSCOPY DIRECT INJECTION VOCAL CORD WITH MICROSCOPE performed by Amber Jain MD at [place] [facility] MISCELLANEOUS ORDER ([facility] ONLY) Bilateral 11/24/2017 Reinheimer-bleph/levators-ou OTHER (3 times) 8 inch benign tumor removed from L femur; regrew x 3 OTHER Removal of a benign LN from L axilla REMOVAL OF THYROID GLAND 10/23/2009 total thyroidectomy 10/23/09, [facility], Dr. Vazquez REMOVE CATARACT, INSERT LENS PROSTH Right 07/20/2017 right EXTRACAPSULAR CATARACT REMOVAL WITH INTRAOCULAR LENS performed by Luis Eduardo Cole MD at OR [facility] REMOVE CATARACT, INSERT LENS PROSTH Left 07/06/2017 left EXTRACAPSULAR CATARACT REMOVAL WITH INTRAOCULAR LENS performed by Luis Eduardo Cole MD at [facility] REMOVE GALLBLADDER 2004 appox date Social [...] a day E11.9 1 Kit 0 Pen Vaughn 32G X 4 MM Use as directed. [...] day 200 Strip 5 OneTouch Delica Plus [id number] Use as directed. Use when checking blood [...] old style medical tape. Physical exam: Vitals 12/25/2023 12/26/2023 12/27/2023 12/28/2023 12/29/2023 12/30/2023 Vitals BP 108/77 110/51 97/54 103/46 Pulse 60 64 58 54 Resp 18 20 16 16 Temp 36.4 C (97.5 F) 36.9 C (98.4 F) 35.6 C (96.1 F) 36.4 C (97.5 F) SpO2 97 % 98 % 96 % 100 % Weight 186 lb 184 lb 185 lb 180 lb Notes Notes Progress Notes Attested Pablo Gage PA-C Care Plan Signed Laura Lora RN Inpatient Ask-A-Doc Signed Harjeet Villaseñor DO Progress Notes Signed Zuri Alejandra [facility] Progress Notes Signed Carolina Gustafson RN Progress Notes Signed Carolina Gustafson RN Details More values are hidden. Newest values shown. Go to activity for more data. Wt Readings from Last 6 Encounters: 12/28/23 81.6 kg (180 lb) 11/23/23 88.9 kg (196 lb) 11/17/23 89.6 kg (197 lb 8 oz) 11/12/23 89.8 kg (198 lb) 11/09/23 90.1 kg (198 lb 9.6 oz) 10/14/23 90.1 kg (198 lb 9.6 oz) Patient is comfortable and privacy is respected General: alert and no distress Head: Normocephalic, No masses, lesions, tenderness or abnormalities Remaining of physical exam was not performed because of being on telehealth visit Labs: Results for orders placed or performed in visit on 12/31/23 TYPE AND SCREEN Result Value Ref Range ABO O Rh Positive Red Blood Cell Antibody Screen Negative Specimen Expiration Date 01/03/2024 23:59 CBC Result Value Ref Range WBC 0.87 (LL) 4.00 - 10.80 K/uL RBC 2.57 3.85 - 5.15 M/uL HGB 7.8 (L) 12.0 - 15.3 g/dL HCT 22.0 (L) 36.0 - 45.2 % MCV 85.6 81.5 - 97.5 fL MCH 30.4 27.0 - 34.0 pg MCHC 35.5 32.0 - 36.0 g/dL RDW 14.1 11.5 - 15.5 % PLT 28 (L) 140 - 400 K/uL MPV 10.6 6.6 - 11.1 fL nRBCs 0 <=0 /100 WBCs COMPREHENSIVE METABOLIC PANEL Result Value Ref Range BUN 24 (H) 6 - 20 mg/dL Creatinine 1.1 (H) 0.5 - 1.0 mg/dL Estimated Glomerular Filtration Rate 56 (L) >=60 mL/min Sodium 143 135 - 146 mmol/L Potassium 4.4 3.5 - 5.1 mmol/L Chloride 107 98 - 107 mmol/L CO2 25 22 - 32 mmol/L Anion Gap 11 7 - 15 mmol/L Glucose 249 (H) 70 - 120 mg/dL Albumin 3.7 (L) 3.8 - 5.0 g/dL AST 67 (H) 10 - 35 U/L Alkaline Phosphatase 153 (H) 35 - 130 U/L Bilirubin, Total 0.4 <=1.2 mg/dL Calcium 8.0 (L) 8.4 - 10.2 mg/dL Protein 6.2 6.0 - 8.3 g/dL ALT 106 (H) 10 - 35 U/L DIFFERENTIAL, TECHNOLOGIST REVIEW Result Value Ref Range WBC 0.87 (LL) 4.00 - 10.80 K/uL Lymphocytes % 99.0 (H) 18.0 - 42.0 % Monocytes % 1.0 1.0 - 11.0 % Absolute Lymphocytes 0.86 (L) 1.00 - 4.80 K/uL Absolute Monocytes [...] This exam was submitted to the radiology ship officer worklist and the ordering provider will [...] loss of RUNX1 or chromosome 21/21q, del 8t21-e54, monosomy 7, consistent with complex karyotype. Molecular: TP53 + (tier 2) 91.5%, CBL+ Plan: Patient is very anxious, and was confused [...] overload from blood transfusions. D/W inpatient team(Dr. Wakefiled, and Richard) Education material for AML, and leukemia was printed out and given to the patient for more education about leukemia. Patient appreciated our efforts. In patients with AML with TP53 mutation, a 10-day course of decitabine may be considered (Shine MOHAN,et al. N Engl J Med 2016;375:5231-1781). Response may not be evident before 3-4 cycles of treatmentwith HMAs (ie, azacitidine, decitabine). Continue HMA treatment until progression if patient is tolerating therapy. Similar delays in response are likely with novel agents in a clinical trial, but endpoints will be defined by the protocol. Plan Comprehensive Metabolic Panel Check-out note: Please give the patient print out for education material of AML/leukemia. Please facilitate bone marrow biopsy through IR (order was placed while inpatient) RTC with Mehreen on Wednesday January 03, 2024 for a visit, CBC/Diff, CMP, LDH, iron panel, and B12 This chart was completed in part utilizing [employer] Speech Voice Recognition Software. Grammatical errors, random [...] Notes * Ursula Camacho MED ASSIST - 12/31/2023 9:16 AM EST Chief Complaint Patient presents with Follow Up Provider aware of VS. BP 94/41 | Pulse 73 | Temp 37 C (98.6 F) (Tympanic) | Wt 87.2 kg (192 lb 4.8 oz) | LMP 09/08/2016 | SpO2 100% | BMI 29.24 kg/m | BSA 2.05 m Patient was [...] comprehension of instructions. documented in this encounter Miscellaneous Notes * Pt Handout (on AVS) - Ortega Verde MD - 12/31/2023 9:41 AM EST Images from the original note were not included. [id number] What Is Leukemia? Cancer happens when cells in the body change. They grow out of control and don't work the way they should. Cancer that starts in blood cells in the bone marrow and spreads to the bloodstream is called leukemia. Understanding the blood Blood is made up of cells and fluid. The body is always making new blood cells to keep the blood healthy. New blood cells are made in the bone marrow. This is the spongy, thick liquid that's inside bones. The major types of blood cells are: White blood cells help the body fight infections and disease. Red blood cells carry oxygen from the lungs to all parts of the body. They also carry carbon dioxide back to the lungs. Platelets help form blood clots and stop bleeding. When leukemia forms Leukemia is a cancer of the white blood cells. The cells involved are not mature, and they don't function. The cancer usually starts in the bone marrow where white cells are made or in the lymph nodes. With leukemia, the body makes a lot of white blood cells that don't work the way they should, so they can't fight infections. Over time, the abnormal leukemia cells crowd out the normal cells in the bone marrow. Normal, healthy blood cells are no longer made. The abnormal white cells spill into the bloodstream. There are four major subtypes of leukemia. They are defined by the gene mutations and specific bonemarrow cells involved. Acute lymphocytic leukemia (ALL) Acute myeloid leukemia (AML) Chronic lymphocytic leukemia (CLL) Chronic myeloid leukemia (CML) Definitions: Acute or chronic. Acute leukemia grows very quickly. Chronic leukemia tends to be slow growing, but it may get worse over time. Myeloid (myelocytic) or lymphoid (lymphocytic). These refer to the subtype of white blood cell that the cancer starts in. Treatment choices for leukemia You and your healthcare provider will decide on a treatment plan that's best for you. The main treatments for leukemia are: Chemotherapy. This uses strong medicines to kill cancer cells. Targeted therapy. This uses medicines that attack parts of leukemia cells that make them different from normal cells. Immunotherapy. This works with or like the body's own immune system to help fight cancer. Stem cell transplant. This destroys the tissues or cells that make blood cells and replaces themwith healthy tissues or cells. Radiation therapy. This uses strong beams of energy to help prevent or treat leukemia in certainparts of the body. Treatment depends on many factors, such as the type of leukemia you have, your overall health, whether there's a stem cell match for you, and your preferences. Last Reviewed Date: 06/08/202219994886-5152 [employer]. All rights reserved. This information is not intended as a substitute for professional medical care. Always follow your healthcare professional's instructions. documented in this encounter Plan of Treatment Upcoming Encounters Date Type Department Care Team (Late st Contact Info) Description 01/03/2024 8:40 AM EST Laboratory Laboratory, [address] [phone] [facility], Lab [address] [place] [address] 01/03/2024 9:30 AM EST Office Visit Hematology/Oncology , [address] [address] Ortega Verde MD [address] [place] [address] 01/03/2024 10:00 AM EST Hem/Onc Treatment Hematology/Oncology Treatment, [address] [place] [address] [facility], Chair8 Hem Onc [address] [place] [address] 01/05/2024 10:40 AM EST Laboratory Laboratory, [address], [place] [address] [facility], Lab [address] [place] [address], [place] [address] 01/05/2024 11:30 AM EST Office Visit Hematology/Oncology , [address], [place] [address] Tasneem Bryant CRNP [address] [place] [address], [place] [address] 01/05/2024 12:00 PM EST Hem/Onc Treatment Hematology/Oncology Treatment, [address], [place] [address] [facility], Chair Hem Onc [address] [place] [address], [place] [address] 01/07/2024 10:00 AM EST Office Visit [address] [phone] Ivonne French PA-C [address] [place] [address] 01/07/2024 11:30 AM EST Laboratory Laboratory, [address], [place] [address] [facility], Lab [address] [place] [address], [place] [address] 01/07/2024 12:30 PM EST Hem/Onc Treatment Hematology/Oncology Treatment, [address], [place] [address] [facility], Chair4 Hem Onc [address] [place] [address] 01/17/2024 10:00 AM EDT Hospital Encounter OR [facility], Operating Room, [facility] - 4th Floor [address] [place] [address] [facility], In And Out Surgery [address] [place] [address] 01/17/2024 10:00 AM EDT Appointment Radiology, [facility] [address] [place] [place] [address] 01/17/2024 10:00 AM EDT - 01/17/2024 11:00 AM EDT Surgery OR [facility], Operating Room, [facility] - 4th Floor [address] [place] [address] [facility], In And Out Surgery [address] [place] [address] PRE / POST CARE 01/26/2024 9:00 AM EDT Office Visit Pharmacy, [facility] [address] [facility] [place] [address] [facility] [address] [place] [address] 01/31/2024 9:00 AM EDT Imaging Radiology [facility] [address] [facility] [address] [place] [address] 02/10/2024 11:40 AM EDT [facility] [address] [facility] [phone] Ivonne French PA-C [address] [facility] [address] 05/10/2024 8:15 AM EDT Office Visit Ophthalmology, [place] [address] [place] [address] Migel Ramires MD [address] [place] [address] Scheduled Procedures Name Priority Associated Diagnoses Date/Ti [...] this encounter Medical Devices Implanted Type Area Binding Bench Worker Device Identifier Shelf Expiration Date Model / Serial / Lot Lens Intraoc 21.0 - [id number] - [id number] Implanted:Qty : 1 on 07/06/2017 by Luis Eduardo Cole MD at OR [facility] Left: Eye [employer] 01/05/2022 [id number] / [id number] / Lens Intraoc 21.0 - [id number] - [id number] Implanted:Qty : 1 on 07/20/2017 by Luis Eduardo Cole MD at OR [facility] Right: Eye [employer] 01/05/2022 [id number] / [id number] / Syringe Prolaryn Del 1.0cc - [id number] Implanted:Qty : 1 on 11/20/2019 by Amber Jain MD at [place] [facility] Right: Mouth [employer] 10/21/2021 [id number] / / [id number] Implant Silastic 7 Silicone Sw - [id number] Implanted:Qty : 1 on 05/28/2020 by Farhat Pate MD at [place] [facility] Right: Throat [employer] [id number] / / documented as of this encounter Results * (ABNORMAL) COMPREHENSIVE METABOLIC PANEL (12/31/2023 7:45 AM EST) BUN 24(H) 6 - 20 mg/dL 12/31/2023 8:53 AM EST [facility] Creatinine 1.1(H) 0.5 - 1.0 mg/dL 12/31/2023 8:53 AM EST [facility] Estimated Glomerular Filtration Rate 56(L) >=60 mL/min 12/31/2023 8:53 AM EST [facility] Comment:eGFR is calculated b ased on the CKD-EPI 2020 equation Sodium 143 135 - 146 mmol/L 12/31/2023 8:53 AM EST [facility] Potassium 4.4 3.5 - 5.1 mmol/L 12/31/2023 8:53 AM EST [facility] Chloride 107 98 - 107 mmol/L 12/31/2023 8:53 AM EST [facility] CO2 25 22 - 32 mmol/L 12/31/2023 8:53 AM EST [facility] Anion Gap 11 7 - 15 mmol/L 12/31/2023 8:53 AM EST [facility] Glucose 249(H) 70 - 120 mg/dL 12/31/2023 8:53 AM EST [facility] Albumin 3.7(L) 3.8 - 5.0 g/dL 12/31/2023 8:53 AM EST [facility] AST 67(H) 10 - 35 U/L 12/31/2023 8:53 AM EST [facility] Alkaline Phosphatase 153(H) 35 - 130 U/L 12/31/2023 8:53 AM EST [facility] Bilirubin, Total 0.4 <=1.2 mg/dL 12/31/2023 8:53 AM EST [facility] Calcium 8.0(L) 8.4 - 10.2 mg/dL 12/31/2023 8:53 AM EST [facility] Protein 6.2 6.0 - 8.3 g/dL 12/31/2023 8:53 AM EST [facility] ALT 106(H) 10 - 35 U/L 12/31/2023 8:53 AM EST [facility] Blood Venous blood specimen / Unknown Venipuncture / Unknown 12/31/2023 7:45 AM EST 12/31/2023 8:30 AM EST Ortega Verde MD LAB BLOOD O RDERABLES [facility] [address] [place] [address] documented in this encounter Visit Diagnoses Diagnosis Acute myeloid leukemia not having achieved remission (HCC)- Primary Encounter for antineoplastic chemotherapy Encounter to establish care with new doctor Other reasons for seeking consultation Encounter for examination following treatment at hospital Encounter to discuss test results Other specified counseling Encounter to discuss treatment options Other specified counseling Goals of care, counseling/discussion Other specified counseling Difficulty coping Other signs and symptoms involving emotional state Postsurgical hypothyroidism Thrombocytopenia (HCC) Thrombocytopenia, unspecified Pancytopenia (HCC) Other pancytopenia Acute myeloid leukemia not having achieved remission [...] the patient have Health Care Power of Asphalt Spreader Operator? No Code Status History Code Status [...] and were consensually agreed upon. Care Teams Supervisor Fabrication Relationship Specialty Start Date End Date Ivonne French PA-C [address] [facility] [place] [address] PCP - General Physician Activity Therapist 07/24/21 documented as of this encounter
--- OUTSIDE RECORDS SUMMARY | 2024-01-29 21:29 | External Medical Summary | Summary of Care ---
Author Name Unknown Organization [facility] Address [address] [place] [address] Phone [phone] Care Team Providers Care Putty And Caulking Supervisor Name Role Phone Ivonne French PA-C Primary Care Provider [phone] [phone] Reason for Visit * Reason Comments Outpatient Testing Encounter Details Date Type Department Care Team (Late st Contact Info) Description 12/31/2023 8:00 AM EST Laboratory Laboratory, [facility] [address] [place] [phone] [facility], Lab [address] [place] [address] Acute myeloid leukemia not having achieved remission [...] E11.9 1 Kit 0 05/25/2023 Active Pen [place] 32G X 4 MM Use as directed. [...] the morning. 30 Tablet 1 12/29/2023 Active PloredTouch Verio In Vitro Strip (Glucose Blood) Use when checking blood glucose levels 4 times per day 200 Strip 5 12/28/2023 Active PloredTouch Delica Plus Dsgoul07S Use as directed. Use when checking blood [...] 8:30 AM EST Pharmacy Pharmacy Hematology Oncology [facility] [address] [place] [address] [facility] Hem/Onc [address] [place] [address] 12/31/2023 9:00 AM EST Telemedicine Hematology/Oncology, [address] [address] Ortega Verde MD [address] [place] [address] Shayla, Telemed [facility] Hem Onc [facility] [address] [facility] [address] Arrived 12/31/2023 10:00 AM EST Hem/Onc Treatment Hematology/Oncology Treatment, [facility] [address] [facility] [place] [address] [facility], Chair8 Hem Onc [address] [facility] [address] Arrived 01/03/2024 9:00 AM EST Laboratory Laboratory, [address], [place] [address] [facility], Lab [address] [place] [address], [place] [address] 01/03/2024 10:00 AM EST Hem/Onc Treatment Hematology/Oncology Treatment, [address], [place] [address] [facility], Chair8 Hem Onc [address] [place] [address], [place] [address] 01/05/2024 10:40 AM EST Laboratory Laboratory, [address], [place] [address] [facility], Lab [address] [place] [address], [place] [address] 01/05/2024 11:30 AM EST Office Visit Hematology/Oncology, [address], [place] [address] Tasneem [address], [place] [address] 01/05/2024 12:00 PM EST Hem/Onc Treatment Hematology/Oncology Treatment, [address], [place] [address] [facility], Chair5 Hem Onc [address] [place] [address], [place] [address] 01/07/2024 10:00 AM EST Office [address] [address] Ivonne French PA-C [address] [facility], [place] [address] 01/07/2024 11:30 AM EST Laboratory Laboratory, [address], [place] [address] [facility], Lab 400 [facility] [place] [address] 01/07/2024 12:30 PM EST Hem/Onc Treatment Hematology/Oncology Treatment, [facility] 400 [facility], [place] [address] [facility], Chair Hem Onc [address] [place] [address], [place] [address] 01/26/2024 9:00 AM EDT Office Visit Pharmacy, [facility] [address] [facility] [place] [address] [facility] [address] [facility] [place] [address] 01/31/2024 9:00 AM EDT Imaging Radiology [address] [facility] [place] [address] 02/10/2024 11:40 AM EDT Office Visit [facility] [address] [facility] [address] Ivonne French PA-C [address] [facility] [address] 05/10/2024 8:15 AM EDT Office Visit [facility] [address] [place] [address] Migel Ramires MD [address] [place] [address] Pending Results Name Type Priority Associated Diagnoses [...] this encounter Medical Devices Implanted Type Area Billing Clinician Device Identifier Shelf Expiration Date Model / Serial / Lot Lens Intraoc 21.0 - [id number] - [id number] Implanted:Qty : 1 on 07/06/2017 by Luis Eduardo Cole MD at OR [facility] Left: Eye [employer]USCH [employer] LOMB 01/05/2022 [id number] / [id number] / Lens Intraoc 21.0 - [id number] - [id number] Implanted:Qty : 1 on 07/20/2017 by Luis Eduardo Cole MD at OR [facility] Right: Eye BAUSCH [employer] LOMB 01/05/2022 [id number] / [id number] / Syringe Prolaryn Del 1.0cc - [id number] Implanted:Qty : 1 on 11/20/2019 by Amber Jain MD at OR [facility] Right: Mouth [employer] 10/21/2021 [id number] / / [id number] Implant Silastic 7 Silicone Sw - [id number] Implanted:Qty : 1 on 05/28/2020 by Farhat Pate MD at OR [facility] Right: Throat [employer] [id number] / / documented as of this [...] the patient have Health Care Power of Deoiling Machine Operator? No Code Status History Code [...] and were consensually agreed upon. Care Teams Putty And Caulking Supervisor Relationship Specialty Start Date End Date Ivonne French PA-C [address] [facility] [place] [address] PCP - General Physician Senior Cost Estimator 07/24/21 documented as of this encounter
--- OUTSIDE RECORDS SUMMARY | 2024-01-29 21:29 | External Medical Summary | Summary of Care ---
Author Name Unknown Organization [facility] Address [address] [place] [address] Phone [phone] Care Team Providers Care Epic Cupid Specialists Name Role Phone Ivonne French PA-C Primary Care Provider [phone] Reason for Visit * Reason Comments Outpatient Testing Encounter Details Date Type Department Care Team (Late st Contact Info) Description 01/03/2024 8:40 AM EST Laboratory Laboratory, [facility] [address] [place] [phone] [facility], Lab [address] [place] [address] Acute myeloid leukemia not having achieved remission [...] E11.9 1 Kit 0 05/25/2023 Active Pen [place] 32G X 4 MM Use as directed. 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 135 Tablet 1 12/28/2023 Active Acyclovir 400 MG Oral Tablet (Zovirax) Take 1 Tablet by mouth in the morning and 1 Tablet before bedtime. 60 Tablet 3 12/28/2023 Active levoFLOXacin 500 MG Oral Tablet (Levaquin) Take 1 Tablet by mouth daily in the morning. 30 Tablet 1 12/29/2023 Active 5151tuanTouch Verio In Vitro Strip (Glucose Blood) Use when checking blood glucose levels 4 times per day 200 Strip 5 12/28/2023 Active 5151tuanTouch Delica Plus Qndiqe56T Use as directed. Use when checking blood [...] 9:30 AM EST Office Visit Hematology/Oncology , [address] [place] [address] Ortega Verde MD [address] [place] [address] 01/03/2024 10:00 AM EST Hem/Onc Treatment Hematology/Oncology Treatment, [address] [address] [facility], Chair8 Hem Onc [address] [place], [place] [address] [address] 01/05/2024 10:40 AM EST Laboratory Laboratory, [address] [place] [address] [facility], Lab [address] [place] [address], [place] [address] 01/05/2024 11:30 AM EST Office Visit Hematology/Oncology , [address] [place] [address] Tasneem Bryant CRNP [address] [place] [address], [place] [address] 01/05/2024 12:00 PM EST Hem/Onc Treatment Hematology/Oncology Treatment, [address], [place] [address] [facility], Chair5 Hem Onc [address] [place] [address], [place] [address] 01/07/2024 10:00 AM EST Office Visit [facility] [address] [place] [phone] Ivonne French, PA-C [address] [place] [address] 01/07/2024 11:30 AM EST Laboratory Laboratory, [address] [place] [address] [facility], Lab 400 [place] [address] 01/07/2024 12:30 PM EST Hem/Onc Treatment Hematology/Oncology Treatment, [address], [place] [address] [facility], Chair4 Hem Onc [address] [place] [address], [place] [address] 01/17/2024 10:00 AM EDT Hospital Encounter OR [facility], Operating Room, [facility] - 4th Floor [address] [place] [address] [facility], In And Out Surgery [address] [place] [address] 01/17/2024 10:00 AM EDT Appointment Radiology, [facility] [address] [place] [address] 01/17/2024 10:00 AM EDT - 01/17/2024 11:00 AM EDT Surgery OR [facility], Operating Room, [facility] - 4th Floor [address] [place] [address] [facility], In And Out Surgery 400 [place] [address] PRE / POST CARE 01/26/2024 9:00 AM EDT Office Visit Pharmacy, [facility] [address] [facility] [place] [address] [facility] [address] [facility] [place] [address] 01/31/2024 9:00 AM EDT Imaging Radiology [facility]st [facility] [address] [facility] [place] [address] 02/10/2024 11:40 AM EDT Office Visit [facility] [address] [facility] [place] [address] Ivonne French PA-C [address] [facility] [place] [address] 05/10/2024 8:15 AM EDT Office Visit Ophthalmology, [place] [address] [place] [address] Migel Ramires MD [address] [place] [address] Pending Results Name Type Priority Associated Diagnoses Date /Time CBC WITH WBC DIFFERENTIAL Lab Routine Acute myeloid leukemia not having achieved remission (HCC) 01/03/2024 8:33 AM EST TYPE AND SCREEN Lab Routine Acute myeloid leukemia not having achieved remission (HCC) 01/03/2024 8:33 AM EST CBC Lab Routine Acute myeloid [...] this encounter Medical Devices Implanted Type Area Vibrating Screen Operator Device Identifier Shelf Expiration Date Model / Serial / Lot Lens Intraoc 21.0 - [id number] - [id number] Implanted:Qty : 1 on 07/06/2017 by Luis Eduardo Cole MD at OR [facility] Left: Eye BAUSCH [employer] LOMB 01/05/2022 [id number] / [id number] / Lens Intraoc 21.0 - [id number] - [id number] Implanted:Qty : 1 on 07/20/2017 by Luis Eduardo Cole MD at OR [facility] Right: Eye BAUSCH [employer] LOMB 01/05/2022 [id number] / [id number] / Syringe Prolaryn Del 1.0cc - [id number] Implanted:Qty : 1 on 11/20/2019 by Amber Jain MD [place] [facility] Right: Mouth [employer] 10/21/2021 [id number] / / [id number] Implant Silastic 7 Silicone Sw - [id number] Implanted:Qty : 1 on 05/28/2020 by Farhat Pate MD at [place] [facility] Right: Throat [employer] 4707 / / documented as of this [...] the patient have Health Care Power of Special Education Supervisor? No Code Status History Code Status [...] and were consensually agreed upon. Care Teams Epic Cupid Specialists Relationship Specialty Start Date End Date Ivonne French PA-C [address] [place] [address] PCP - General Physician Supervisor Calibration 07/24/21 documented as of this encounter
--- OUTSIDE RECORDS SUMMARY | 2024-01-29 21:29 | External Medical Summary ---
Author Name Unknown Address Unknown Organization K1F:LABORATORY [facility] - [address] [place] [address] Laboratory Report Ordering Provider Test Date Status DIEGO BERMANAPPLE 01/03/2024 08:33:00 Final Observation Date Value Abnormality Reference (Units ) Status Uric Acid 01/03/2024 08:33:00 2.0 Below low normal 2.4 -5.7 (mg/dL) Final Performing Location LABORATORY [facility] - [address] [place] [address]
--- OUTSIDE RECORDS SUMMARY | 2024-01-29 21:29 | External Medical Summary | Summary of Care ---
Author Name Unknown Organization [facility] Address [address] [place] [address] Phone [phone] Care Team Providers Care Public Health Technologist Name Role Phone Ivonne French PA-C Primary Care Provider [phone] Reason for Visit * Reason Onset Date Comments Scheduling 12/31/2023 Encounter Details Date Type Department Care Team (Late st Contact Info) Description 12/31/2023 Telephone Interventional Radiology, [facility] 400 [place] [address] Richard Moreira PA-C [address] [place] [address] Scheduling Allergies Active Allergy Reactions [...] E11.9 1 Kit 0 05/25/2023 Active Pen [place] 32G X 4 MM Use as directed. [...] Hour (toPROL XL)Indications:Craig nary artery disease involving tolowa dee-ni' coronary artery of tolowa dee-ni' heart without angina pectoris Take 2 Tablets [...] per day 200 Strip 5 12/28/2023 Active DevoliaTouch Delica Plus Bjcevn80B Use as directed. Use when checking blood [...] the Bone Marrow Biopsy for 01/16 at [facility]. Patient identified by: name/birthdate Person taught: Patient METHOD: Lecture-telephone interview Patient Preferred Learning Methods: Lecture-Telephone interview PATIENT INSTRUCTIONS GIVEN: - General Preoperative Instructions Reviewed - NPO Instructions Reviewed, pt to stop eating 8 hours prior to procedure and stop drinking 2 hoursprior to procedure. -Technical Editor required Location and check-in instructions Verbalizes understanding [...] Description 01/03/2024 8:40 AM EST Laboratory Laboratory, [address] [phone] [facility], Lab [address] [place] [address] [place] [address] 01/03/2024 9:30 AM EST Office Visit Hematology/Oncology, [address] [address] Ortega Verde MD [address] [place] [address] 01/03/2024 10:00 AM EST Hem/Onc Treatment Hematology/Oncology Treatment, [address] [address] [facility], Chair8 Hem Onc [address] [place] [address] 01/05/2024 10:40 AM EST Laboratory Laboratory, [address] [address] [facility], Lab [address] [place] [address] 01/05/2024 11:30 AM EST Office Visit Hematology/Oncology, [address] [address] Tasneem Bryant CRNP [address] [place] [address] 01/05/2024 12:00 PM EST Hem/Onc Treatment Hematology/Oncology Treatment, [address] [address] [facility], Chair5 Hem Onc [address] [place] [address], [place] [address] 01/07/2024 10:00 AM EST Office Visit [address], [place] [phone] Ivonne French PA-C [address] [facility] [address] 01/07/2024 11:30 AM EST Laboratory Laboratory, [address], [place] [address] [facility], Lab 400 [place] [address] 01/07/2024 12:30 PM EST Hem/Onc Treatment Hematology/Oncology Treatment, [facility] 400 [facility], [place] [address] [facility], Chair4 Hem Onc [address] [place] [address], [place] [address] 01/26/2024 9:00 AM EDT Office Visit Pharmacy, [facility] 132 [facility] [place] [address] [facility] 132 [facility] [place] [address] 01/31/2024 9:00 AM EDT Imaging Radiology [address] [facility] [place] [address] 02/10/2024 11:40 AM EDT Office Visit [facility] [address] [facility] [phone] Ivonne French PA-C [address] [facility] [address] 05/10/2024 8:15 AM EDT Office Visit Ophthalmology, [place] [address] [address] Migel Ramires MD [address] [facility] [address] Scheduled Procedures Name Priority Associated Diagnoses Date/Ti [...] 07/23/2021, Additional history exists Mammogram 01/28/2024 01/27/2023, 2 [...] this encounter Medical Devices Implanted Type Area Cosmetology Professor Device Identifier Shelf Expiration Date Model / Serial / Lot Lens Intraoc 21.0 - [id number] - [id number] Implanted:Qty : 1 on 07/06/2017 by Luis Eduardo Cole MD at OR [facility] Left: Eye BAUSCH [employer] LOMB 01/05/2022 [id number] / [id number] / Lens Intraoc 21.0 - [id number] - [id number] Implanted:Qty : 1 on 07/20/2017 by Luis Eduardo Cole MD at OR [facility] Right: Eye BAUSCH [employer] LOMB 01/05/2022 [id number] / [id number] / Syringe Prolaryn Del 1.0cc - [id number] Implanted:Qty : 1 on 11/20/2019 by Amber Jain MD at [place] [facility] Right: Mouth [employer] 10/21/2021 [id number] / / [id number] Implant Silastic 7 Silicone Sw - [id number] Implanted:Qty : 1 on 05/28/2020 by Farhat Pate MD at [place] [facility] Right: Throat [employer] [id number] / / documented as of this [...] the patient have Health Care Power of Credit Risk Analytics Manager? No Code Status History Code Status [...] consensually agreed upon. Care Teams Public Health Technologist Relationship Specialty Start Date End Date Ivonne French PA-C [address] [facility] [place] [address] PCP - General Physician Analytical Clerk 07/24/21 documented as of this encounter
--- OUTSIDE RECORDS SUMMARY | 2024-01-29 21:29 | External Medical Summary | Summary of Care ---
Author Name Unknown Organization [facility] Address [address] [place] [address] Phone [phone] Care Team Providers Care Plumbing Engineer Name Role Phone Ivonne French PA-C Primary Care Provider [phone] Reason for Visit * Reason Comments Follow Up Encounter Details Date Type Department Care Team (Late st Contact Info) Description 12/31/2023 9:00 AM EST Telemedicine Hematology/Oncology , [facility] [address] [place] [address] Ortega Verde MD [address] [place] [address] Alexandra Mcguireed [facility] [address] [place] [address] Acute myeloid leukemia not having [...] E11.9 1 Kit 0 05/25/2023 Active Pen [place] 32G X 4 MM Use as directed. [...] Hour (toPROL XL)Indications:Craig nary artery disease involving re[place]-sparks coronary artery of re[place]sparks heart without angina pectoris Take 2 Tablets by mouth daily in the morning. 135 Tablet 1 12/28/2023 Active Acyclovir 400 MG Oral Tablet (Zovirax) Take 1 Tablet by mouth in the morning and 1 Tablet before bedtime. 60 Tablet 3 12/28/2023 Active levoFLOXacin 500 MG Oral Tablet (Levaquin) Take 1 Tablet by mouth daily in the morning. 30 Tablet 1 12/29/2023 Active StrohoTouch Verio In Vitro Strip (Glucose Blood) Use when checking blood glucose levels 4 times per day 200 Strip 5 12/28/2023 Active Tier 3uch Delica Plus [id number] Use as directed. Use when checking blood [...] two unique identifiers. Patient (or authorized legal hvac sales representative) was then informed that this [...] that I have reviewed their record in appAttach and presented the opportunity for them to ask any questions regarding the visit today. The patient agreed to participate. 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 Molecular: [...] Decitabine and Venetoclax with Inpatient ramp-up (AML) [id number] ECOG: Performance Status 2 = 60-70% Bedtime, < 50% daytime History of present illness (at time of my initial evaluation on 12/31/2023 ): Juany Resendez is a 58 year old female who presented to my office today, unaccompanied, to establish care with lithograph press operator tinware for her newly diagnosed AML. Patient is a , she lives alone. She lives about [place] hour away from [facility].Currently on disability. Her brother lives 10 minutes away from her. She had history of partial bigtoe amputation, and she started using cane recently. Patient was initially evaluated by Dr. Rice, then by Dr. Senior in [place], then admitted to the hospital, and coming now to [facility] follow-up with me as an outpatient. He had prolonged hospital stay, with the following hospital course 11/24/2023 - 12/28/2023 (34 days) : "ADMISSION HISTORY & PHYSICAL EXAM (focused): Ms. Resendez is a 58 y/o female who lives in [place] by herself. Her PMH includes DM2 on [...] for last 1 year. She states her home restoration service cleaner is aware of these sx and they [...] discharged her home with close follow-up at [facility]." Patient is still feel weak [...] DIAGNOSTIC (RECTUM) 12/16/2016 adenomatous polyps, repeat 5 yrs/[facility] COLONOSCOPY, DIAGNOSTIC (RECTUM) 06/03/2022 diverticulosis, fair prep, repeat 5 yrs / [facility] EGD, FLEXIBLE, DIAGNOSTIC 12/16/2016 normal bx/[facility] EGD, FLEXIBLE, W/BIOPSY 07/30/2010 esophagitis, await BX LARYNGOPLASTY MEDIALIZATION UNILATERAL Right 05/28/2020 LARYNGOPLASTY, MEDIALIZATION UNILATERAL performed by Farhat Pate MD at [place] [facility] LARYNGOSCOPY, VOCAL CORD INJECTION Right 11/20/2019 LARYNGOSCOPY DIRECT INJECTION VOCAL CORD WITH MICROSCOPE performed by Amber Jain MD at [place] [facility] MISCELLANEOUS ORDER ([facility] ONLY) Bilateral 11/24/2017 Reinheimer-bleph/levators-ou OTHER (3 times) 8 inch benign tumor removed from L femur; regrew x 3 OTHER Removal of a benign LN from L axilla REMOVAL OF THYROID GLAND 10/23/2009 total thyroidectomy 10/23/09, [facility], Dr. Vazquez REMOVE CATARACT, INSERT LENS PROSTH Right 07/20/2017 right EXTRACAPSULAR CATARACT REMOVAL WITH INTRAOCULAR LENS performed by Luis Eduardo Cole MD at OR [facility] REMOVE CATARACT, INSERT LENS PROSTH Left 07/06/2017 left EXTRACAPSULAR CATARACT REMOVAL WITH INTRAOCULAR LENS performed by Luis Eduardo Cole MD at [facility] REMOVE GALLBLADDER 2004 appox date Social [...] a day E11.9 1 Kit 0 Pen [place] 32G X 4 MM Use as directed. [...] day 200 Strip 5 OneTouch Delica Plus [id number] Use as directed. Use when checking blood [...] DO Progress Notes Signed Zuri Alejandra [facility] Progress Notes Signed Carolina Gustafson RN Progress [...] This exam was submitted to the radiology physician office nurse worklist and the ordering provider will be notified that the final report is available in [facility]. XR CHEST 1 VIEW Result Date: [...] loss of RUNX1 or chromosome 21/21q, del 7x14-d75, monosomy 7, consistent with complex karyotype. Molecular: [...] (Shine MOHAN,et al. N Engl J Med 2016;375:8132-6336). Response may not be evident before 3-4 [...] This chart was completed in part utilizing [employer] Speech Voice Recognition Software. Grammatical errors, random [...] from the original note were not included. 14006 What Is Leukemia? Cancer happens when cells [...] you, and your preferences. Last Reviewed Date: 06/08/202219996758-6803 [employer] All rights reserved. This information is not intended as a substitute for professional medical care. Always follow your healthcare professional's instructions. documented in this encounter Plan of Treatment Upcoming Encounters Date Type Department Care Team (Late st Contact Info) Description 01/03/2024 8:40 AM EST Laboratory Laboratory, [address] [phone] [facility], Lab [address] [place] [address] 01/03/2024 9:30 AM EST Office Visit Hematology/Oncology , [address] [address] Ortega Verde MD [address] [place] [address] 01/03/2024 10:00 AM EST Hem/Onc Treatment Hematology/Oncology Treatment, [address] [place] [address] [facility], Chair8 Hem Onc [address] [place] [address] 01/05/2024 10:40 AM EST Laboratory Laboratory, [address], [place] [address] [facility], Lab [address] [place] [address], [place] [address] 01/05/2024 11:30 AM EST Office Visit Hematology/Oncology , [address], [place] [address] Tasneem Bryant CRNP [address] [place] [address], [place] [address] 01/05/2024 12:00 PM EST Hem/Onc Treatment Hematology/Oncology Treatment, [address], [place] [address] [facility], Chair Hem Onc [address] [place] [address], [place] [address] 01/07/2024 10:00 AM EST Office Visit [address] [phone] Ivonne French PA-C [address] [place] [address] 01/07/2024 11:30 AM EST Laboratory Laboratory, [address], [place] [address] [facility], Lab [address] [place] [address], [place] [address] 01/07/2024 12:30 PM EST Hem/Onc Treatment Hematology/Oncology Treatment, [address], [place] [address] [facility], Chair4 Hem Onc [address] [place] [address] 01/17/2024 10:00 AM EDT Hospital Encounter OR [facility], Operating Room, [facility] - 4th Floor [address] [place] [address] [facility], In And Out Surgery [address] [place] [address] 01/17/2024 10:00 AM EDT Appointment Radiology, [facility] [address] [place] [address] 01/17/2024 10:00 AM EDT - 01/17/2024 11:00 AM EDT Surgery OR [facility], Operating Room, [facility] - 4th Floor [address] [place] [address] [facility], In And Out Surgery [address] [place] [address] PRE / POST CARE 01/26/2024 9:00 AM EDT Office Visit Pharmacy, [facility] [address] [facility] [place] [address] [facility] [address] [place] [address] 01/31/2024 9:00 AM EDT Imaging Radiology [facility] 1st [facility] [address] [place] [address] 02/10/2024 11:40 AM EDT Office Visit [facility] [address] [facility] [phone] [facility]vonne French PA-C [address] [facility] [address] 05/10/2024 8:15 AM EDT Office Visit Ophthalmology, [facility] [address] [place] [address] Migel Ramires MD [address] [place] [address] Scheduled Procedures Name Priority Associated Diagnoses Date/Ti [...] this encounter Medical Devices Implanted Type Area Kersey Department Supervisor Device Identifier Shelf Expiration Date Model / Serial / Lot Lens Intraoc 21.0 - [id number] - [id number] Implanted:Qty : 1 on 07/06/2017 by Luis Eduardo Cole MD at OR [facility] Left: Eye BAUSCH [employer] LOMB 01/05/2022 [id number] / [id number] / Lens Intraoc 21.0 - [id number] - [id number] Implanted:Qty : 1 on 07/20/2017 by Luis Eduardo Cole MD at OR [facility] Right: Eye BAUSCH & LOMB 01/05/2022 [id number] / [id number] / Syringe Prolaryn Del 1.0cc - [id number] Implanted:Qty : 1 on 11/20/2019 by Amber Jain MD at [place] [facility] Right: Mouth [employer] 10/21/2021 [id number] / / [id number] Implant Silastic 7 Silicone Sw - [id number] Implanted:Qty : 1 on 05/28/2020 by Farhat Pate MD at [facility] Right: Throat Kwaab [id number] / / documented as of this [...] MD LAB BLOOD [facility] [address] [place] [address] documented in this encounter Visit Diagnoses [...] the patient have Health Care Power of Still Worker Helper? No Code Status History Code Status [...] and were consensually agreed upon. Care Teams Plumbing Engineer Relationship Specialty Start Date End Date Ivonne French PA-C [address] [facility] [place] [address] PCP - General Physician Concrete Craftsman 07/24/21 documented as of this encounter
--- OUTSIDE RECORDS SUMMARY | 2024-01-29 21:29 | External Medical Summary | Summary of Care ---
Author Name Unknown Organization [facility] Address [address] [place] [address] Phone [phone] Care Team Providers Care Fitness And Wellness Manager Name Role Phone Ivonne French PA-C Primary Care Provider [phone] Reason for Visit * Reason Comments Nurse Documentation Hold blood products, parameters not met Encounter Details Date Type Department Care Team (Late st Contact Info) Description 12/31/2023 10:00 AM EST Hem/Onc Treatment Hematology/Oncology Treatment, [facility] [address] [place] [address] [facility], Chair8 Hem Onc [address] [place] [address] Allergies Active Allergy Reactions Criticality Noted Date [...] E11.9 1 Kit 0 05/25/2023 Active Pen [place] 32G X 4 MM Use as directed. 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 135 Tablet 1 12/28/2023 Active Acyclovir 400 MG Oral Tablet (Zovirax) Take 1 Tablet by mouth in the morning and 1 Tablet before bedtime. 60 Tablet 3 12/28/2023 Active levoFLOXacin 500 MG Oral Tablet (Levaquin) Take 1 Tablet by mouth daily in the morning. 30 Tablet 1 12/29/2023 Active BTC TripTouch Verio In Vitro Strip (Glucose Blood) Use when checking blood glucose levels 4 times per day 200 Strip 5 12/28/2023 Active BTC TripTouch Delica Plus [id number] Use as directed. Use when checking blood [...] Nursing Notes * Amy Baires, RN - 12/31/2023 10:51 AM EST Pt seen by provider, pt current hgb 7.8 Per parameters, pt does not meet requirements Pt aware documented in this encounter Plan of Treatment Upcoming Encounters Date Type Department Care Team (Late st Contact Info) Description 01/03/2024 8:40 AM EST Laboratory Laboratory, [address] [address] [facility], Lab [address] [place] [address] 01/03/2024 9:30 AM EST Office Visit Hematology/Oncology, [address] [place] [address] Ortega Verde MD [address] [place] [address] 01/03/2024 10:00 AM EST Hem/Onc Treatment Hematology/Oncology Treatment, [address], [place] [address] [facility], Chair8 Hem Onc [address] [place] [address], [place] [address] 01/05/2024 10:40 AM EST Laboratory Laboratory, [address], [place] [address] [facility], Lab [address] [place] [address], [place] [address] 01/05/2024 11:30 AM EST Office Visit Hematology/Oncology, [address], [place] [address] Tasneem Bryant CRNP [address] [place] [address], [place] [address] 01/05/2024 12:00 PM EST Hem/Onc Treatment Hematology/Oncology Treatment, [address], [place] [address] [facility], Chair5 Hem Onc [address] [place] [address], [place] [address] 01/07/2024 10:00 AM EST Office Visit [facility] [address] [facility], [place] [phone] Ivonne French PA-C [address] [facility], [place] [address] 01/07/2024 11:30 AM EST Laboratory Laboratory, [address], [place] [address] [facility], Lab [address] [place] [address], [place] [address] 01/07/2024 12:30 PM EST Hem/Onc Treatment Hematology/Oncology Treatment, [facility] [address] [place] [address] [facility], Chair4 Hem Onc [address] [address] 01/26/2024 9:00 AM EDT Office Visit Pharmacy, [facility] [address] [facility] [place] [address] [facility] [address] [facility] [place] [address] 01/31/2024 9:00 AM EDT Imaging Radiology [facility] 1st [facility] [address] [facility] [place] [address] 02/10/2024 11:40 AM EDT Office Visit Family [facility] [address] [place] [phone] Ivonne French PA-C [address] [place] [address] 05/10/2024 8:15 AM EDT Office Visit Ophthalmology, [place] [facility] [place] [address] Migel Ramires MD 21 [facility] [place] [address] Scheduled Procedures Name Priority Associated Diagnoses Date/Ti [...] 09/16/2022, Additional history exists TSH 12/12/2024 12/12/2023, 2 , 12/25/2022, Additional history exists Depression Screening [...] this encounter Medical Devices Implanted Type Area Professional Development Instructor Device Identifier Shelf Expiration Date Model / Serial / Lot Lens Intraoc 21.0 - [id number] - [id number] Implanted:Qty : 1 on 07/06/2017 by Luis Eduardo Cole MD at OR [facility] Left: Eye BAUSCH & LOMB 01/05/2022 [id number] / [id number] / Lens Intraoc 21.0 - [id number] - [id number] Implanted:Qty : 1 on 07/20/2017 by Luis Eduardo Cole MD at OR [facility] Right: Eye BAUSCH & LOMB 01/05/2022 [id number] / [id number] / Syringe Prolaryn Del 1.0cc - [id number] Implanted:Qty : 1 on 11/20/2019 by Amber Jain MD at [place] [facility] Right: Mouth [employer] 10/21/2021 [id number] / / [id number] Implant Silastic 7 Silicone Sw - [id number] Implanted:Qty : 1 on 05/28/2020 by Farhat Pate MD at [place] [facility] Right: Throat [email or web address] [id number] / / documented as of this [...] the patient have Health Care Power of Brush Holder Assembler? No Code Status History Code Status [...] and were consensually agreed upon. Care Teams Fitness And Wellness Manager Relationship Specialty Start Date End Date Ivonne French PA-C [address] [place] [address] PCP - General Physician Medical Transcription Editor 07/24/21 documented as of this encounter
--- OUTSIDE RECORDS SUMMARY | 2024-01-29 21:30 | External Medical Summary ---
Author Name Unknown Address Unknown Organization K01:[facility] - [address] [facility] [address] Laboratory Report Ordering Provider Test Date Status SONIA VILLARREAL 12/27/2023 07:33:00 Final Observation Date Value Abnormality Reference (Units ) Status SYNC LEUKOCYTES IN BLOOD BY AUTOMATED COUNT 12/27/2023 07:33:00 0.95 Below lower panic limits 4.00-10.80 (K/uL) Final Lymphocytes/100 leukocytes in Blood by Manual count 12/27/2023 07:33:00 98.0 Above high normal 18.0-42.0 (%) Final Monocytes/100 leukocytes in Blood by Manual count 12/27/2023 07:33:00 2.0 1.0-11.0 (%) Final Lymphocytes [#/volume] in Blood by Manual count 12/27/2023 07:33:00 0.93 Below low normal 1.00-4.80 (K/uL) Final Monocytes [#/volume] in Blood by Manual count 12/27/2023 07:33:00 0.02 0.00-1.10 (K/uL) Final Performing Location [facility] - [address] [place] [address]
--- OUTSIDE RECORDS SUMMARY | 2024-01-29 21:30 | External Medical Summary ---
Author Name Unknown Address Unknown Organization : Laboratory Report Ordering Provider Test Date Status ELVIA DE DIOS 12/27/2023 11:20:33 Final Observation Date Value Abnormality Reference (Units ) Status Glucose Point of Care 12/27/2023 11:20:33 305 Above high normal 70-120 (mg/dL) Final Performing Location
--- OUTSIDE RECORDS SUMMARY | 2024-01-29 21:30 | External Medical Summary ---
Author Name Unknown Address Unknown Organization : Laboratory Report Ordering Provider Test Date Status ELVIA DE DIOS 12/27/2023 07:43:43 Final Observation Date Value Abnormality Reference (Units ) Status Glucose Point of Care 12/27/2023 07:43:43 165 Above high normal 70-120 (mg/dL) Final Performing Location
--- OUTSIDE RECORDS SUMMARY | 2024-01-29 21:30 | External Medical Summary ---
Author Name Unknown Address Unknown Organization K01:[facility] [place] [address] [facility] [place] [address] Laboratory Report Ordering Provider Test Date Status PHOEBE VILLARREALROSA MARIA 12/27/2023 07:33:00 Final Observation Date Value Abnormality Reference (Units ) Status BUN 12/27/2023 07:33:00 27 Above high normal 6-20 (mg/dL) Final Creatinine 12/27/2023 07:33:00 1.3 Above high normal 0.5-1.0 (mg/dL) Final Glomerular filtration rate/1.73 sq M.predicted [Volume Rate/Area] in Serum, Plasma or Blood by Creatinine-based formula (CKD-EPI) 12/27/2023 07:33:00 45 Below low normal >=60 (mL/min) Final eGFR is calculated based on the CKD-EPI 2020 equation SODIUM 12/27/2023 07:33:00 138 135-146 (m mol/L) Final Potassium 12/27/2023 07:33:00 4.8 3.5-5.1 (m mol/L) Final Cl 12/27/2023 07:33:00 102 98-107 (mm ol/L) Final CO2 12/27/2023 07:33:00 24 22-32 (mmo l/L) Final Anion gap 12/27/2023 07:33:00 12 7-15 (mmol /L) Final Glucose 12/27/2023 07:33:00 173 Above high normal 70 -120 (mg/dL) Final Albumin 12/27/2023 07:33:00 3.5 Below low normal 3.8 -5.0 (g/dL) Final AST (Aspartate aminotransferase) 12/27/2023 07:33:00 123 Above high normal 10-35 (U/L) Final Alk Phos 12/27/2023 07:33:00 158 Above high normal 35 -130 (U/L) Final Bilirubin, Total 12/27/2023 07:33:00 0.5 <=1 .2 (mg/dL) Final Calcium 12/27/2023 07:33:00 8.8 8.4-10.2 ( mg/dL) Final Protein 12/27/2023 07:33:00 6.2 6.0-8.3 (g /dL) Final ALT (Alanine aminotransferase) 12/27/2023 07:33:00 124 Above high normal 10-35 (U/L) Final Performing Location [facility] [place] [address] [facility] [address]
--- OUTSIDE RECORDS SUMMARY | 2024-01-29 21:30 | External Medical Summary | Summary of Care ---
Author Name Unknown Organization [facility] Address [address] [place] [address] Phone [phone] Care Team Providers Care Dining Car Waiter/Waitress Name Role Phone Ivonne French PA-C Primary Care Provider [phone] Reason for Visit * Reason Comments Outpatient Testing Encounter Details Date Type Department Care Team (Late st Contact Info) Description 12/31/2023 8:00 AM EST Laboratory Laboratory, [facility] [address] [place] [phone] [facility], Lab [address] [place] [address] Acute myeloid leukemia not having achieved remission [...] E11.9 1 Kit 0 05/25/2023 Active Pen Greenwood 32G X 4 MM Use as directed. [...] Hour (toPROL XL)Indications:Craig nary artery disease involving confederated coos coronary artery of confederated coos heart without angina pectoris Take 2 Tablets by mouth daily in the morning. 135 Tablet 1 12/28/2023 Active Acyclovir 400 MG Oral Tablet (Zovirax) Take 1 Tablet by mouth in the morning and 1 Tablet before bedtime. 60 Tablet 3 12/28/2023 Active levoFLOXacin 500 MG Oral Tablet (Levaquin) Take 1 Tablet by mouth daily in the morning. 30 Tablet 1 12/29/2023 Active Given.toTouch Verio In Vitro Strip (Glucose Blood) Use when checking blood glucose levels 4 times per day 200 Strip 5 12/28/2023 Active Given.toTouch Delica Plus [id number] Use as directed. Use when checking blood [...] 8:30 AM EST Pharmacy Pharmacy Hematology Oncology [facility] [address] [place] [address] [facility] Hem/Onc [address] [place] [address] 12/31/2023 9:00 AM EST Telemedicine Hematology/Oncology, [address] [address] Ortega Verde MD [address] [place] [address] Shayla, Telemed [facility] [address] [facility] [address] Arrived 12/31/2023 10:00 AM EST Hem/Onc Treatment Hematology/Oncology Treatment, [facility] 400 [facility] [address] [facility], Chair8 Hem Onc [address] [facility] [address] Arrived 01/03/2024 9:00 AM EST Laboratory Laboratory, [address], [place] [address] [facility], Lab [address] [place] [address], [place] [address] 01/03/2024 10:00 AM EST Hem/Onc Treatment Hematology/Oncology Treatment, [address], [place] [address] [facility], Chair8 Hem Onc [address] [place] [address], [place] [address] 01/05/2024 10:40 AM EST Laboratory Laboratory, [address], [place] [address] [facility], Lab [address] [place] [address], [place] [address] 01/05/2024 11:30 AM EST Office Visit Hematology/Oncology, [address], [place] [address] Tasneem Bryant [address], [place] [address] 01/05/2024 12:00 PM EST Hem/Onc Treatment Hematology/Oncology Treatment, [address], [place] [address] [facility], Chair5 Hem Onc [address] [place] [address], [place] [address] 01/07/2024 10:00 AM EST Office [address] [address] Ivonne French PA-C [address] [facility], [place] [address] 01/07/2024 11:30 AM EST Laboratory Laboratory, [address], [place] [address] [facility], Lab 400 [place] [address] 01/07/2024 12:30 PM EST Hem/Onc Treatment Hematology/Oncology Treatment, [facility] [address] [facility], [place] [address] [facility], Chair Hem Onc [address] [place] [address], [place] [address] 01/26/2024 9:00 AM EDT Office Visit Pharmacy, [facility] [address] [facility] [place] [address] [facility] [address] [facility] [place] [address] 01/31/2024 9:00 AM EDT Imaging Radiology [address] [facility] [place] [address] 02/10/2024 11:40 AM EDT Office Visit [facility] [address] [facility] [address] Ivonne French PA-C [address] [facility] [address] 05/10/2024 8:15 AM EDT Office Visit [facility] [place] [address] [place] [address] Migel Ramires MD [address] [place] [address] Pending Results Name Type Priority Associated Diagnoses [...] this encounter Medical Devices Implanted Type Area Commercial Carpet Installer Device Identifier Shelf Expiration Date Model / Serial / Lot Lens Intraoc 21.0 - [id number] - [id number] Implanted:Qty : 1 on 07/06/2017 by Luis Eduardo Cole MD at OR [facility] Left: Eye [employer] LOMB 01/05/2022 [id number] / [id number] / Lens Intraoc 21.0 - [id number] - [id number] Implanted:Qty : 1 on 07/20/2017 by Luis Eduardo Cole MD at OR [facility] Right: Eye BAUSCH [employer] LOMB 01/05/2022 [id number] / [id number] / Syringe Prolaryn Del 1.0cc - [id number] Implanted:Qty : 1 on 11/20/2019 by Amber Jain MD [place] [facility] Right: Mouth [employer] 10/21/2021 [id number] / / [id number] Implant Silastic 7 Silicone Sw - [id number] Implanted:Qty : 1 on 05/28/2020 by Farhat Pate MD [place] [facility] Right: Throat Good Technology [id number] / / documented as of this [...] the patient have Health Care Power of Print Production Associate? No Code Status History Code Status Date [...] and were consensually agreed upon. Care Teams Dining Car Waiter/Waitress Relationship Specialty Start Date End Date Ivonne French PA-C [address] [facility] [place] [address] PCP - General Physician Clock And Watch Hands Mounter 07/24/21 documented as of this encounter
--- OUTSIDE RECORDS SUMMARY | 2024-01-29 21:30 | External Medical Summary ---
Author Name Unknown Address Unknown Organization : Laboratory Report Ordering Provider Test Date Status ELVIA DE DIOS 12/25/2023 21:19:30 Final Observation Date Value Abnormality Reference (Units ) Status Glucose Point of Care 12/25/2023 21:19:30 235 Above high normal 70-120 (mg/dL) Final Performing Location
--- OUTSIDE RECORDS SUMMARY | 2024-01-29 21:30 | External Medical Summary ---
Author Name Unknown Address Unknown Organization : Laboratory Report Ordering Provider Test Date Status SONIA VILLARREAL 12/28/2023 04:23:00 Final Observation Date Value Abnormality Reference (Units ) Status Performing Location
--- OUTSIDE RECORDS SUMMARY | 2024-01-29 21:30 | External Medical Summary ---
Author Name Unknown Address Unknown Organization : Laboratory Report Ordering Provider Test Date Status ELVIA DE DIOS 12/28/2023 11:35:33 Final Observation Date Value Abnormality Reference (Units ) Status Glucose Point of Care 12/28/2023 11:35:33 212 Above high normal 70-120 (mg/dL) Final Performing Location
--- OUTSIDE RECORDS SUMMARY | 2024-01-29 21:30 | External Medical Summary ---
Author Name Unknown Address Unknown Organization K01:LABORATORY [facility] - [address] [facility] [address] Laboratory Report Ordering Provider Test Date Status SONIA VILLARREAL 12/27/2023 07:33:00 Final Observation Date Value Abnormality Reference (Units ) Status WBC, Total 12/27/2023 07:33:00 0.95 Below lower panic limits 4.00-10.80 (K/uL) Final RBC 12/27/2023 07:33:00 2.38 3.85-5.15 (M/uL) Final Hemoglobin 12/27/2023 07:33:00 7.1 Below low normal 12.0-15.3 (g/dL) Final HCT 12/27/2023 07:33:00 20.8 Below low normal 36.0-45.2 (%) Final MCV 12/27/2023 07:33:00 87.4 81.5-97.5 (fL) Final MCH 12/27/2023 07:33:00 29.8 27.0-34.0 (pg) Final MCHC 12/27/2023 07:33:00 34.1 32.0-36.0 (g/dL) Final RDW 12/27/2023 07:33:00 14.1 11.5-15.5 (%) Final Platelets 12/27/2023 07:33:00 32 Below low normal 140-400 (K/uL) Final MPV 12/27/2023 07:33:00 11.5 6.6-11.1 (fL) Final Nucleated erythrocytes/100 leukocytes [Ratio] in Blood by Automated count 12/27/2023 07:33:00 0 <=0 (/100 WBCs) Final Performing Location LABORATORY [facility] - [address] [place] [address]
--- OUTSIDE RECORDS SUMMARY | 2024-01-29 21:30 | External Medical Summary | Summary of Care ---
Author Name Unknown Organization [facility] Address [address] [place] [address] Phone [phone] Care Team Providers Care Telephone Information Supervisor Name Role Phone Ivonne French PA-C Primary Care Provider [phone] Reason for Visit * Reason Comments Outpatient Testing Encounter Details Date Type Department Care Team (Late st Contact Info) Description 12/31/2023 8:00 AM EST Laboratory Laboratory, [facility] [address] [place] [address] [facility], Lab [address] [place] [address] Acute myeloid leukemia not having achieved remission [...] E11.9 1 Kit 0 05/25/2023 Active Pen Brussels 32G X 4 MM Use as directed. [...] the morning. 30 Tablet 1 12/29/2023 Active AttendifyTouch Verio In Vitro Strip (Glucose Blood) Use when checking blood glucose levels 4 times per day 200 Strip 5 12/28/2023 Active AttendifyTouch Delica Plus [id number] Use as directed. Use when checking blood [...] Oncology [facility] [address] [place] [address] [facility] Hem/Onc [address] [place] [address] 12/31/2023 9:00 AM EST Telemedicine Hematology/Oncology, [address] [address] Ortega Verde MD [address] [place] [address] Shayla, Telemed [facility] [address] [facility] [address] Arrived 12/31/2023 10:00 AM EST Hem/Onc Treatment Hematology/Oncology Treatment, [facility] [address] [facility] [address] [facility], Chair8 Hem Onc [address] [facility] [address] Arrived 01/03/2024 9:00 AM EST Laboratory Laboratory, [address], [place] [address] [facility], Lab [address] [place] [address], [place] [address] 01/03/2024 10:00 AM EST Hem/Onc Treatment Hematology/Oncology Treatment, [address], [place] [address] [facility], Chair8 Hem Onc [address] [place] [address], [place] [address] 01/05/2024 10:40 AM EST Laboratory Laboratory, [address], [place] [address] [facility], Lab [address] [place] [address], [place] [address] 01/05/2024 11:30 AM EST Office Visit Hematology/Oncology, [address], [place] [address] Tasneem Bryant [address], [place] [address] 01/05/2024 12:00 PM EST Hem/Onc Treatment Hematology/Oncology Treatment, [address], [place] [address] [facility], Chair5 Hem Onc [address] [place] [address], [place] [address] 01/07/2024 10:00 AM EST Office Visit [address] [address] Ivonne French PA-C [address] [facility], [place] [address] 01/07/2024 11:30 AM EST Laboratory Laboratory, [address], [place] [address] [facility], Lab 400 [place] [address] 01/07/2024 12:30 PM EST Hem/Onc Treatment Hematology/Oncology Treatment, [facility] 400 [facility], [place] [address] [facility], Chair Hem Onc [address] [place] [address], [place] [address] 01/26/2024 9:00 AM EDT Office Visit Pharmacy, [facility] [address] [facility] [place] [address] [facility] [address] [facility] [place] [address] 01/31/2024 9:00 AM EDT Imaging Radiology [address] [facility] [place] [address] 02/10/2024 11:40 AM EDT Office Visit [facility] [address] [facility] [address] Ivonne French PA-C [address] [facility] [address] 05/10/2024 8:15 AM EDT Office Visit [facility] [place] [address] [place] [address] Migel Ramires MD [address] [place] [address] Pending Results Name Type Priority Associated Diagnoses [...] this encounter Medical Devices Implanted Type Area Addiction Specialist Device Identifier Shelf Expiration Date Model / Serial / Lot Lens Intraoc 21.0 - [id number] - [id number] Implanted:Qty : 1 on 07/06/2017 by Luis Eduardo Cole MD at OR [facility] Left: Eye BAUSCH [employer] LOMB 01/05/2022 [id number] / [id number] / Lens Intraoc 21.0 - [id number] - [id number] Implanted:Qty : 1 on 07/20/2017 by Luis Eduardo Cole MD at OR [facility] Right: Eye BAUSCH [employer] LOMB 01/05/2022 [id number] / [id number] / Syringe Prolaryn Del 1.0cc - [id number] Implanted:Qty : 1 on 11/20/2019 by Amber Jain MD at [place] [facility] Right: Mouth [employer] 10/21/2021 [id number] / / [id number] Implant Silastic 7 Silicone Sw - [id number] Implanted:Qty : 1 on 05/28/2020 by Farhat Pate MD at [place] [facility] Right: Throat [id number] / / documented as of this [...] the patient have Health Care Power of Reclamation Kettle Tender? No Code Status History Code Status Date [...] and were consensually agreed upon. Care Teams Telephone Information Supervisor Relationship Specialty Start Date End Date Ivonne French PA-C [address] [facility] [place] [address] PCP - General Physician Manager Hotel 07/24/21 documented as of this encounter
--- OUTSIDE RECORDS SUMMARY | 2024-01-29 21:30 | External Medical Summary ---
Author Name Unknown Address Unknown Organization K01:LABORATORY [facility] - [address] [place] [address] Laboratory Report Ordering Provider Test Date Status SONIA VILLARREAL 12/26/2023 07:00:00 Final Observation Date Value Abnormality Reference (Units ) Status Phosphate 12/26/2023 07:00:00 4.2 2.5-4.8 (m g/dL) Final Performing Location LABORATORY [facility] - [address] [place] [address]
--- OUTSIDE RECORDS SUMMARY | 2024-01-29 21:30 | External Medical Summary | Summary of Care ---
Author Name Unknown Organization [facility] Address [address] [facility] [address] Phone [phone] Care Team Providers Care Sieve Repairer Name Role Phone Ivonne French PA-C Primary Care Provider [phone] Reason for Visit * Reason Comments Dosage Adjustment In Person (Anticoag Cl inic) Encounter Details Date Type Department Care Team (Late st Contact Info) Description 12/29/2023 8:10 AM EST Office Visit Pharmacy, [facility] [address] [facility] [place] [address] [facility] 132 [facility] [place] [address] Type 2 diabetes mellitus with hemoglobin A1c goal of 7.0%-8.0% ([facility])* Allergies Active Allergy Reactions Criticality Noted Date Comments Adhesive Tape 04/21/2016 Glue off the old style medical tape. documented as of this encounter (statuses as of 12/29/2023) Medications Medication Sig Dispensed Refills Start Date [...] the morning. 30 Tablet 1 12/29/2023 Active ItsGoinOnTouch Verio In Vitro Strip (Glucose Blood) Use when checking blood glucose levels 4 times per day 200 Strip 5 12/28/2023 Active ItsGoinOnTouch Delica Plus [id number] Use as directed. Use when checking blood [...] as of this encounter (statuses as of 12/29/2023) Active Problems Problem Noted Date Diagnosed Date [...] as of this encounter (statuses as of 12/29/2023) Resolved Problems Problem Noted Date Diagnosed Date [...] as of this encounter (statuses as of 12/29/2023) Immunizations Name Administration Dates Next Due COVID-19 [...] Answer Date Recorded PHQ Adult Total Score 12 12/25/2022 Hunger Vital Sign Answer Date Recorded Within the past 12 months, y ou worried that your food would run out before you got the money to buy more. Never true 12/25/19 23 Within the past 12 months, t he food you bought just didn't last and you didn't have money to get more. Never true 12/25/2022 Sex and Gender Information Value Date Recorded [...] as of this encounter Progress Notes * Mary Grace Farmer, [facility] - 12/29/2023 8:08 AM EST Medication Therapy Disease Management Clinic - Diabetes Management Progress Note Juany Resendez, identified by name and date of , is a 58 year old female being seen for diabetes management/education. Patient presents for return diabetic visit. DIABETES: Current diabetic medications: Mounjaro 10 mg weekly STOP: Metformin 1000 mg BID Decrease: Lantus 25 units HS DecreaseNovolog 1:20 over 80 Medication Injection Site: Abdomen Lifestyle: Diet: decrease appetite/recent hospital discharge Glucose Review/SMBG: Readings per patient memory/recall: Patient is currently testing 1-3 times a day Hypoglycemia: Does your blood sugar go below 70 mg/dL? No Hyperglycemia symptoms present: none Recent Labs Units 11/09/23 1517 06/15/23 1006 04/27/23 0944 HEMOGLOBIN A1C - [facility] % 10.7* 8.8* 9.9* Recent Labs Units 12/28/23 0423 12/27/23 0733 12/26/23 0700 ESTIMATED GLOMERULAR FILTRATION RATE - [facility] mL/min 50* 45* 47* CREATININE - [facility] mg/dL 1.2* 1.3* 1.3* HYPERTENSION: Patient on ACEi/ARB: no, not indicated BP Readings from Last 3 Encounters: 12/28/23 103/46 11/23/23 114/68 11/17/23 121/73 Blood pressure at goal: yes HYPERLIPIDEMIA: Patient is taking moderate or high intensity statin: yes HEALTH MAINTENANCE REVIEW: Health Maintenance Due Topic Date Due Pneumococcal Vaccine: Pediatrics (0 to 5 Years) and At-Risk Patients (6 to 64 Years) (2 of 2 - PCV)12/20/2007 Hepatitis B (3 of 3 - 19+ 3-dose series) 08/20/2017 COVID-19 Vaccine (3 - Moderna risk series) 09/16/2021 Depression, Most Recent Score >= 10 (will fire each visit until score < 10) 12/26/2022 Influenza Vaccine (FLU shot) (1) Never done Diabetic Foot Exam 11/24/2023 B-12 12/25/2023 ASSESSMENT & PLAN: No diagnosis found. BG Readings - Blood sugars controlled. Medications - Reviewed current regimen, patient is not adherent to regimen. Patient cannot understand a sliding scale. Will do set dosing as patient is able to do this. Patient was very confused about medications from hospital discharge, updated patient's medication and assisted her with new medication schedule and removal of discontinued medications. Patient still needs to follow upwith hem/onc regarding her chemo. Diet, Exercise, Lifestyle - No significant lifestyle changes since last visit. Discussed with patient. Patient is agreeable to SMBG 1-3 time(s) daily. Patient aware to contact clinic if any hypoglycemia before next visit. MEDICATION CHANGES: yes, see below; preferred pharmacy: [facility] Diabetic Medications: Mounjaro 10 mg weekly Lantus 25 units HS CHANGED: Novolog 8 units HEALTH MAINTENANCE INTERVENTIONS: Labs: Up to Date Immunizations: Up to Date Foot Exam: Up to Date Eye Exam: Up to Date Annual Wellness Visit: Up to Date FOLLOW UP: Return to clinic in 4 weeks 01/26/2024 Mary Grace Farmer RPh Clinical Pharmacist - Carbon Capture Power Plant Engineer Medication Therapy Management Clinic 12/29/2023, 8:08 AM documented in this encounter Plan of Treatment Upcoming Encounters Date Type Department Care Team (Late st Contact Info) Description 12/31/2023 8:00 AM EST Laboratory Laboratory, [address] [place] [address] [facility], Lab [address] [place] [address], [place] [address] 12/31/2023 9:00 AM EST Telemedicine Hematology/Oncology, [address] [address] Ortega Verde MD [address] [place] [address] Shayla, Telemed [facility] Hem Onc Clinic [address] [place] [address] 12/31/2023 10:00 AM EST Hem/Onc Treatment Hematology/Oncology Treatment, [address], [place] [address] [facility], Chair8 Hem Onc [address] [place] [address], [place] [address] 01/03/2024 9:00 AM EST Laboratory Laboratory, [address], [place] [address] [facility], Lab [address] [place] [address], [place] [address] 01/03/2024 10:00 AM EST Hem/Onc Treatment Hematology/Oncology Treatment, [address], [place] [address] [facility], Chair8 Hem Onc [address] [place] [address], [place] [address] 01/05/2024 10:40 AM EST Laboratory Laboratory, [address], [place] [address] [facility], Lab [address] [place] [address], [place] [address] 01/05/2024 11:30 AM EST Office Visit Hematology/Oncology, [address], [place] [address] Tasneem Bryant CRNP [address] [place] [address], [place] [address] 01/05/2024 12:00 PM EST Hem/Onc Treatment Hematology/Oncology Treatment, [address], [place] [address] [facility], Chair5 Hem Onc [address] [place] [address], [place] [address] 01/07/2024 10:00 AM EST Office Visit [place] [address] [place] [address] Ivonne French PA-C [address] [place] [address] 01/07/2024 11:30 AM EST Laboratory Laboratory, [address], [place] [address] [facility], Lab [address] [place] [address], [place] [address] 01/07/2024 12:30 PM EST Hem/Onc Treatment Hematology/Oncology Treatment, [address], [place] [address] [facility], Chair4 Hem Onc [address] [place] [address], [place] [address] 01/26/2024 9:00 AM EDT Office Visit Pharmacy, [facility] 132 [facility] [place] [address] [facility] 132 [facility] [place] [address] 01/31/2024 9:00 AM EDT Imaging Radiology [facility] 1st [facility] [place] [address] [facility] [place] [address] 02/10/2024 11:40 AM EDT Office Visit Family [facility] [place] [address] [place] [address] Ivonne French PA-C [address] [place] [address] 05/10/2024 8:15 AM EDT Office Visit Ophthalmology, [place] [address] [place] [address] Migel Ramires MD [address] [place] [address] Scheduled Procedures Name Priority Associated Diagnoses Date/Ti [...] - Moderna risk series) 09/16/2021 08/19/2021, 07/22/2021 Depression, Most Recent Score >= 10 (will fire each visit until score < 10) 12/26/2022 12/25/2022 Influenza Vaccine (FLU shot) (#1) 2023 Diabetic Foot Exam 11/24/2023 11/24/2022, 0 07/22/2021, 07/03/2020, Additional history exists B-12 12/25/2023 12/25/2022, 06/2022, 07/23/2021, Additional history exists Mammogram 01/28/2024 01/27/2023, 01/07, 08/03/2022, Additional history exists Diabetic Eye Exam 05/06/2024 05/06/2023, , 01/21/2022, Additional history exists HbA1c 05/09/2024 11/09/2023, 06/2023, 04/27/2023, Additional history exists Albumin/Creatinine Ratio 11/15/2024 024, 12/25/2022, 09/16/2022, Additional history exists TSH 12/12/2024 12/12/2023, 04/09, 12/25/2022, Additional history exists GFR 12/28/2024 12/28/2023, 12/09, 12/26/2023, Additional history exists PAP SMEAR-EVERY 3 YRS,AGES [...] this encounter Medical Devices Implanted Type Area Top Installer Device Identifier Shelf Expiration Date Model / Serial / Lot Lens Intraoc 21.0 - [id number] - [id number] Implanted:Qty : 1 on 07/06/2017 by Luis Eduardo Cole MD at [facility] Left: Eye [employer] 01/05/2022 [id number] / [id number] / Lens Intraoc 21.0 - [id number] - [id number] Implanted:Qty : 1 on 07/20/2017 by Luis Eduardo Cole MD at OR [facility] Right: Eye [employer]OM[employer] 01/05/2022 [id number] / [id number] / Syringe Prolaryn Del 1.0cc - [id number] Implanted:Qty : 1 on 11/20/2019 by Amber Jain MD at OR [facility] Right: Mouth [employer] 10/21/2021 [id number] / / [id number] Implant Silastic 7 Silicone Sw - [id number] Implanted:Qty : 1 on 05/28/2020 by Farhat Pate MD at OR [facility] Right: Throat [employer] [id number] / / documented as of this encounter Visit Diagnoses Diagnosis Type 2 diabetes mellitus with hemoglobin A1c goal of 7.0%-8.0% ([facility])- Primary documented in this encounter Advance Directives [...] the patient have Health Care Power of Size Changer? No Code Status History Code Status Date [...] and were consensually agreed upon. Care Teams Sieve Repairer Relationship Specialty Start Date End Date Ivonne French PA-C [address] [place] [address] PCP - General Physician Back End Developer 07/24/21 documented as of this encounter
--- OUTSIDE RECORDS SUMMARY | 2024-01-29 21:30 | External Medical Summary ---
Author Name Unknown Address Unknown Organization : Laboratory Report Ordering Provider Test Date Status ELVIA DE DIOS 12/25/2023 11:34:33 Final Observation Date Value Abnormality Reference (Units ) Status Glucose Point of Care 12/25/2023 11:34:33 267 Above high normal 70-120 (mg/dL) Final Performing Location
--- OUTSIDE RECORDS SUMMARY | 2024-01-29 21:30 | External Medical Summary ---
Author Name Unknown Address Unknown Organization : Laboratory Report Ordering Provider Test Date Status ELVIA DE DIOS 12/27/2023 16:25:00 Final Observation Date Value Abnormality Reference (Units ) Status Glucose Point of Care 12/27/2023 16:25:00 197 Above high normal 70-120 (mg/dL) Final Performing Location
--- OUTSIDE RECORDS SUMMARY | 2024-01-29 21:30 | External Medical Summary ---
Author Name Unknown Address Unknown Organization : Laboratory Report Ordering Provider Test Date Status ELVIA DE DIOS 12/26/2023 21:10:57 Final Observation Date Value Abnormality Reference (Units ) Status Glucose Point of Care 12/26/2023 21:10:57 309 Above high normal 70-120 (mg/dL) Final Performing Location
--- OUTSIDE RECORDS SUMMARY | 2024-01-29 21:30 | External Medical Summary ---
Author Name Unknown Address Unknown Organization [id number]:LABORATORY [facility] - [address] [place] [address] Laboratory Report Ordering Provider Test Date Status RAMIN HACKETT 12/31/2023 07:58:17 Final Observation Date Value Abnormality Reference (Units ) Status SYNC LEUKOCYTES IN BLOOD BY AUTOMATED COUNT 12/31/2023 07:58:17 0.87 Below lower panic limits 4.00-10.80 (K/uL) Final Lymphocytes/100 leukocytes in Blood by Manual count 12/31/2023 07:58:17 99.0 Above high normal 18.0-42.0 (%) Final Monocytes/100 leukocytes in Blood by Manual count 12/31/2023 07:58:17 1.0 1.0-11.0 (%) Final Lymphocytes [#/volume] in Blood by Manual count 12/31/2023 07:58:17 0.86 Below low normal 1.00-4.80 (K/uL) Final Monocytes [#/volume] in Blood by Manual count 12/31/2023 07:58:17 0.01 0.00-1.10 (K/uL) Final Performing Location [facility]ATORY [facility] [address] [address] [place] [address]
--- OUTSIDE RECORDS SUMMARY | 2024-01-29 21:30 | External Medical Summary ---
Author Name Unknown Address Unknown Organization [id number]:LABORATORY [facility] [place] [facility] - [address] [place] [address] Laboratory Report Ordering Provider Test Date Status SONIA VILLARREAL 12/25/2023 06:54:00 Final Observation Date Value Abnormality Reference (Units ) Status ABO 12/25/2023 06:54:00 O Final RH 12/25/2023 06:54:00 Positive Final RED BLOOD CELL ANTIBODY SCREEN 12/25/2023 06:54:00 Negative Final SPECIMEN EXPIRATION DATE 12/25/2023 06:54:00 12/28/2023 23:59 Final Performing Location LABORATORY [facility] [place] [facility] - [address] [place] [address]
--- OUTSIDE RECORDS SUMMARY | 2024-01-29 21:30 | External Medical Summary ---
Author Name Unknown Address Unknown Organization [id number]:[place] [facility] [place] [address] [facility] [place] [address] Laboratory Report Ordering Provider Test Date Status PHOEBE VILLARREALROSA MARIA 12/28/2023 04:23:00 Final Observation Date Value Abnormality Reference (Units ) Status BUN 12/28/2023 04:23:00 25 Above high normal 6-20 (mg/dL) Final Creatinine 12/28/2023 04:23:00 1.2 Above high normal 0.5-1.0 (mg/dL) Final Glomerular filtration rate/1.73 sq M.predicted [Volume Rate/Area] in Serum, Plasma or Blood by Creatinine-based formula (CKD-EPI) 12/28/2023 04:23:00 50 Below low normal >=60 (mL/min) Final eGFR is calculated based on the CKD-EPI 2020 equation SODIUM 12/28/2023 04:23:00 139 135-146 (m mol/L) Final Potassium 12/28/2023 04:23:00 4.2 3.5-5.1 (m mol/L) Final Cl 12/28/2023 04:23:00 104 98-107 (mm ol/L) Final CO2 12/28/2023 04:23:00 23 22-32 (mmo l/L) Final Anion gap 12/28/2023 04:23:00 12 7-15 (mmol /L) Final Glucose 12/28/2023 04:23:00 132 Above high normal 70 -120 (mg/dL) Final Albumin 12/28/2023 04:23:00 3.6 Below low normal 3.8 -5.0 (g/dL) Final AST (Aspartate aminotransferase) 12/28/2023 04:23:00 115 Above high normal 10-35 (U/L) Final Alk Phos 12/28/2023 04:23:00 150 Above high normal 35 -130 (U/L) Final Bilirubin, Total 12/28/2023 04:23:00 0.5 <=1 .2 (mg/dL) Final Calcium 12/28/2023 04:23:00 8.7 8.4-10.2 ( mg/dL) Final Protein 12/28/2023 04:23:00 6.6 6.0-8.3 (g /dL) Final ALT (Alanine aminotransferase) 12/28/2023 04:23:00 118 Above high normal 10-35 (U/L) Final Performing Location [place] [facility] [place] [address] [facility] [address]
--- OUTSIDE RECORDS SUMMARY | 2024-01-29 21:30 | External Medical Summary ---
Author Name Unknown Address Unknown Organization : Laboratory Report Ordering Provider Test Date Status ELVIA DED IOS 12/26/2023 16:46:36 Final Observation Date Value Abnormality Reference (Units ) Status Glucose Point of Care 12/26/2023 16:46:36 166 Above high normal 70-120 (mg/dL) Final Performing Location
--- OUTSIDE RECORDS SUMMARY | 2024-01-29 21:30 | External Medical Summary ---
Author Name Unknown Address Unknown Organization K01:LABORATORY [facility] - [address] [place] [address] Laboratory Report Ordering Provider Test Date Status SONIA VILLARREAL 12/27/2023 07:33:00 Final Observation Date Value Abnormality Reference (Units ) Status Phosphate 12/27/2023 07:33:00 4.5 2.5-4.8 (m g/dL) Final Performing Location LABORATORY [facility] - [address] [place] [address]
--- OUTSIDE RECORDS SUMMARY | 2024-01-29 21:30 | External Medical Summary ---
Author Name Unknown Address Unknown Organization K01:[place] [place] [facility] [facility] - [address] [place] [address] Laboratory Report Ordering Provider Test Date Status SONIA VILLARREAL 12/28/2023 04:23:00 Final Observation Date Value Abnormality Reference (Units ) Status ABO 12/28/2023 04:23:00 O Final RH 12/28/2023 04:23:00 Positive Final RED BLOOD CELL ANTIBODY SCREEN 12/28/2023 04:23:00 Negative Final SPECIMEN EXPIRATION DATE 12/28/2023 04:23:00 12/31/2023 23:59 Final Performing Location LAB[facility] [place] [facility] - [address] [place] [address]
--- OUTSIDE RECORDS SUMMARY | 2024-01-29 21:30 | External Medical Summary ---
Author Name Unknown Address Unknown Organization : Laboratory Report Ordering Provider Test Date Status ELVIA DE DIOS 12/25/2023 07:51:21 Final Observation Date Value Abnormality Reference (Units ) Status Glucose Point of Care 12/25/2023 07:51:21 102 70-120 (mg/dL) Final Performing Location
--- OUTSIDE RECORDS SUMMARY | 2024-01-29 21:30 | External Medical Summary ---
Author Name Unknown Address Unknown Organization K01:[place] [facility] [place] [address] [place] [address] Laboratory Report Ordering Provider Test Date Status SONIA VILLARREAL 12/28/2023 04:23:00 Final Observation Date Value Abnormality Reference (Units ) Status WBC, Total 12/28/2023 04:23:00 1.03 Below low normal 4.00-10.80 (K/uL) Final RBC 12/28/2023 04:23:00 2.78 3.85-5.15 (M/uL) Final Hemoglobin 12/28/2023 04:23:00 8.4 Below low normal 12.0-15.3 (g/dL) Final HCT 12/28/2023 04:23:00 24.2 Below low normal 36.0-45.2 (%) Final MCV 12/28/2023 04:23:00 87.1 81.5-97.5 (fL) Final MCH 12/28/2023 04:23:00 30.2 27.0-34.0 (pg) Final MCHC 12/28/2023 04:23:00 34.7 32.0-36.0 (g/dL) Final RDW 12/28/2023 04:23:00 13.8 11.5-15.5 (%) Final Platelets 12/28/2023 04:23:00 31 Below low normal 140-400 (K/uL) Final MPV 12/28/2023 04:23:00 11.2 6.6-11.1 (fL) Final Nucleated erythrocytes/100 leukocytes [Ratio] in Blood by Automated count 12/28/2023 04:23:00 0 <=0 (/100 WBCs) Final Performing Location [facility] [place] [address] [place] [address]
--- OUTSIDE RECORDS SUMMARY | 2024-01-29 21:30 | External Medical Summary ---
Author Name Unknown Address Unknown Organization : Laboratory Report Ordering Provider Test Date Status ELVIA DE DIOS 12/25/2023 16:23:59 Final Observation Date Value Abnormality Reference (Units ) Status Glucose Point of Care 12/25/2023 16:23:59 159 Above high normal 70-120 (mg/dL) Final Performing Location
--- OUTSIDE RECORDS SUMMARY | 2024-01-29 21:30 | External Medical Summary ---
Author Name Unknown Address Unknown Organization K01:LABORATORY [facility] [place] - [address] [facility] [place] [address] Laboratory Report Ordering Provider Test Date Status SONIA VILLARREAL 12/26/2023 07:00:00 Final Observation Date Value Abnormality Reference (Units ) Status WBC, Total 12/26/2023 07:00:00 1.01 Below low normal 4.00-10.80 (K/uL) Final RBC 12/26/2023 07:00:00 2.56 3.85-5.15 (M/uL) Final Hemoglobin 12/26/2023 07:00:00 7.5 Below low normal 12.0-15.3 (g/dL) Final HCT 12/26/2023 07:00:00 22.2 Below low normal 36.0-45.2 (%) Final MCV 12/26/2023 07:00:00 86.7 81.5-97.5 (fL) Final MCH 12/26/2023 07:00:00 29.3 27.0-34.0 (pg) Final MCHC 12/26/2023 07:00:00 33.8 32.0-36.0 (g/dL) Final RDW 12/26/2023 07:00:00 14.4 11.5-15.5 (%) Final Platelets 12/26/2023 07:00:00 30 Below low normal 140-400 (K/uL) Final MPV 12/26/2023 07:00:00 9.7 6.6-11.1 (fL) Final Nucleated erythrocytes/100 leukocytes [Ratio] in Blood by Automated count 12/26/2023 07:00:00 0 <=0 (/100 WBCs) Final Performing Location LABORATORY [facility] [place] - [address] [place] [address]
--- OUTSIDE RECORDS SUMMARY | 2024-01-29 21:30 | External Medical Summary ---
Author Name Unknown Address Unknown Organization K01:LABORATORY [facility] - [address] [place] [address] Laboratory Report Ordering Provider Test Date Status SONIA VILLARREAL 12/28/2023 04:23:00 Final Observation Date Value Abnormality Reference (Units ) Status Phosphate 12/28/2023 04:23:00 4.5 2.5-4.8 (m g/dL) Final Performing Location LABORATORY [facility] - [address] [place] [address]
--- OUTSIDE RECORDS SUMMARY | 2024-01-29 21:30 | External Medical Summary ---
Author Name Unknown Address Unknown Organization K01:[place] [place] [facility] [address] [facility] [place] [facility] [address] Laboratory Report Ordering Provider Test Date Status SONIA VILLARREAL 12/25/2023 06:54:00 Final Observation Date Value Abnormality Reference (Units ) Status WBC, Total 12/25/2023 06:54:00 0.93 Below lower panic limits 4.00-10.80 (K/uL) Final RBC 12/25/2023 06:54:00 2.79 3.85-5.15 (M/uL) Final Hemoglobin 12/25/2023 06:54:00 8.4 Below low normal 12.0-15.3 (g/dL) Final HCT 12/25/2023 06:54:00 24.2 Below low normal 36.0-45.2 (%) Final MCV 12/25/2023 06:54:00 86.7 81.5-97.5 (fL) Final MCH 12/25/2023 06:54:00 30.1 27.0-34.0 (pg) Final MCHC 12/25/2023 06:54:00 34.7 32.0-36.0 (g/dL) Final RDW 12/25/2023 06:54:00 14.5 11.5-15.5 (%) Final Platelets 12/25/2023 06:54:00 34 Below low normal 140-400 (K/uL) Final MPV 12/25/2023 06:54:00 11.7 6.6-11.1 (fL) Final Nucleated erythrocytes/100 leukocytes [Ratio] in Blood by Automated count 12/25/2023 06:54:00 0 <=0 (/100 WBCs) Final Performing Location [place] [facility] [place] [address] [place] [address]
--- OUTSIDE RECORDS SUMMARY | 2024-01-29 21:30 | External Medical Summary ---
Author Name Unknown Address Unknown Organization K01:LABORATORY [facility] [place] - [address] [place] [facility] [place] [address] Laboratory Report Ordering Provider Test Date Status PHOEBE VILLARREALROSA MARIA 12/25/2023 06:54:00 Final Observation Date Value Abnormality Reference (Units ) Status BUN 12/25/2023 06:54:00 28 Above high normal 6-20 (mg/dL) Final Creatinine 12/25/2023 06:54:00 1.3 Above high normal 0.5-1.0 (mg/dL) Final Glomerular filtration rate/1.73 sq M.predicted [Volume Rate/Area] in Serum, Plasma or Blood by Creatinine-based formula (CKD-EPI) 12/25/2023 06:54:00 49 Below low normal >=60 (mL/min) Final eGFR is calculated based on the CKD-EPI 2020 equation SODIUM 12/25/2023 06:54:00 140 135-146 (m mol/L) Final Potassium 12/25/2023 06:54:00 4.3 3.5-5.1 (m mol/L) Final Cl 12/25/2023 06:54:00 104 98-107 (mm ol/L) Final CO2 12/25/2023 06:54:00 25 22-32 (mmo l/L) Final Anion gap 12/25/2023 06:54:00 11 7-15 (mmol /L) Final Glucose 12/25/2023 06:54:00 101 70-120 (mg /dL) Final Albumin 12/25/2023 06:54:00 3.7 Below low normal 3.8 -5.0 (g/dL) Final AST (Aspartate aminotransferase) 12/25/2023 06:54:00 125 Above high normal 10-35 (U/L) Final Alk Phos 12/25/2023 06:54:00 156 Above high normal 35 -130 (U/L) Final Bilirubin, Total 12/25/2023 06:54:00 0.5 <=1 .2 (mg/dL) Final Calcium 12/25/2023 06:54:00 9.6 8.4-10.2 ( mg/dL) Final Protein 12/25/2023 06:54:00 6.7 6.0-8.3 (g /dL) Final ALT (Alanine aminotransferase) 12/25/2023 06:54:00 123 Above high normal 10-35 (U/L) Final Performing Location LABORATORY [facility] [place] - [address] [facility] [address]
--- OUTSIDE RECORDS SUMMARY | 2024-01-29 21:30 | External Medical Summary ---
Author Name Unknown Address Unknown Organization : Laboratory Report Ordering Provider Test Date Status ELVIA DE DIOS 12/26/2023 07:38:58 Final Observation Date Value Abnormality Reference (Units ) Status Glucose Point of Care 12/26/2023 07:38:58 172 Above high normal 70-120 (mg/dL) Final Performing Location
--- OUTSIDE RECORDS SUMMARY | 2024-01-29 21:30 | External Medical Summary ---
Author Name Unknown Address Unknown Organization K01:LABORATORY [facility] - [address] [place] [address] Laboratory Report Ordering Provider Test Date Status SONIA VILLARREAL 12/25/2023 06:54:00 Final Observation Date Value Abnormality Reference (Units ) Status Phosphate 12/25/2023 06:54:00 3.7 2.5-4.8 (m g/dL) Final Performing Location LABORATORY [facility] - [address] [place] [address]
--- OUTSIDE RECORDS SUMMARY | 2024-01-29 21:30 | External Medical Summary ---
Author Name Unknown Address Unknown Organization K1F:LAB[facility]ATORY [facility] [address] [place] [address] Laboratory Report Ordering Provider Test Date Status BRADLY BERMAN 12/31/2023 07:45:00 Final Observation Date Value Abnormality Reference (Units ) Status BUN 12/31/2023 07:45:00 24 Above high normal 6-20 (mg/dL) Final Creatinine 12/31/2023 07:45:00 1.1 Above high normal 0.5-1.0 (mg/dL) Final Glomerular filtration rate/1.73 sq M.predicted [Volume Rate/Area] in Serum, Plasma or Blood by Creatinine-based formula (CKD-EPI) 12/31/2023 07:45:00 56 Below low normal >=60 (mL/min) Final eGFR is calculated based on the CKD-EPI 2020 equation SODIUM 12/31/2023 07:45:00 143 135-146 (m mol/L) Final Potassium 12/31/2023 07:45:00 4.4 3.5-5.1 (m mol/L) Final Cl 12/31/2023 07:45:00 107 98-107 (mm ol/L) Final CO2 12/31/2023 07:45:00 25 22-32 (mmo l/L) Final Anion gap 12/31/2023 07:45:00 11 7-15 (mmol /L) Final Glucose 12/31/2023 07:45:00 249 Above high normal 70 -120 (mg/dL) Final Albumin 12/31/2023 07:45:00 3.7 Below low normal 3.8 -5.0 (g/dL) Final AST (Aspartate aminotransferase) 12/31/2023 07:45:00 67 Above high normal 10-35 (U/L) Final Alk Phos 12/31/2023 07:45:00 153 Above high normal 35 -130 (U/L) Final Bilirubin, Total 12/31/2023 07:45:00 0.4 <=1 .2 (mg/dL) Final Calcium 12/31/2023 07:45:00 8.0 Below low normal 8.4 -10.2 (mg/dL) Final Protein 12/31/2023 07:45:00 6.2 6.0-8.3 (g /dL) Final ALT (Alanine aminotransferase) 12/31/2023 07:45:00 106 Above high normal 10-35 (U/L) Final Performing Location LABORATORY [facility] - [facility] [place] [address]
--- OUTSIDE RECORDS SUMMARY | 2024-01-29 21:30 | External Medical Summary ---
Author Name Unknown Address Unknown Organization K01:LABORATORY [facility] - [address] [facility] [address] [facility] [address] Laboratory Report Ordering Provider Test Date Status SONIA VILLARREAL 12/26/2023 07:00:00 Final Observation Date Value Abnormality Reference (Units ) Status SYNC LEUKOCYTES IN BLOOD BY AUTOMATED COUNT 12/26/2023 07:00:00 1.01 Below low normal 4.00-10.80 (K/uL) Final Neutrophils/100 leukocytes in Blood by Manual count 12/26/2023 07:00:00 1.0 Below low normal 40.0-75.0 (%) Final Lymphocytes/100 leukocytes in Blood by Manual count 12/26/2023 07:00:00 99.0 Above high normal 18.0-42.0 (%) Final Neutrophils [#/volume] in Blood by Manual count 12/26/2023 07:00:00 0.01 Below low normal 1.80-7.70 (K/uL) Final Lymphocytes [#/volume] in Blood by Manual count 12/26/2023 07:00:00 1.00 1.00-4.80 (K/uL) Final Performing Location LABORATORY [facility] - [address] [place] [address]
--- OUTSIDE RECORDS SUMMARY | 2024-01-29 21:30 | External Medical Summary ---
Author Name Unknown Address Unknown Organization K1F:LABORATORY [facility] - [address] [place] [address] Laboratory Report Ordering Provider Test Date Status RAMIN HACKETT 12/31/2023 07:58:17 Final Observation Date Value Abnormality Reference (Units ) Status ABO 12/31/2023 07:58:17 O Final RH 12/31/2023 07:58:17 Positive Final RED BLOOD CELL ANTIBODY SCREEN 12/31/2023 07:58:17 Negative Final SPECIMEN EXPIRATION DATE 12/31/2023 07:58:17 01/03/2024 23:59 Final Performing Location LABORATORY [facility] B[facility]OD [facility] - [address] [place] [address]
--- OUTSIDE RECORDS SUMMARY | 2024-01-29 21:30 | External Medical Summary ---
Author Name Unknown Address Unknown Organization : Laboratory Report Ordering Provider Test Date Status ELVIA DE DIOS 12/26/2023 11:44:49 Final Observation Date Value Abnormality Reference (Units ) Status Glucose Point of Care 12/26/2023 11:44:49 246 Above high normal 70-120 (mg/dL) Final Performing Location
--- OUTSIDE RECORDS SUMMARY | 2024-01-29 21:30 | External Medical Summary ---
Author Name Unknown Address Unknown Organization K01:LABORATORY [facility] [place] - [address] [facility] [place] [address] Laboratory Report Ordering Provider Test Date Status PHOEBE VILLARREALROSA MARIA 12/26/2023 07:00:00 Final Observation Date Value Abnormality Reference (Units ) Status BUN 12/26/2023 07:00:00 26 Above high normal 6-20 (mg/dL) Final Creatinine 12/26/2023 07:00:00 1.3 Above high normal 0.5-1.0 (mg/dL) Final Glomerular filtration rate/1.73 sq M.predicted [Volume Rate/Area] in Serum, Plasma or Blood by Creatinine-based formula (CKD-EPI) 12/26/2023 07:00:00 47 Below low normal >=60 (mL/min) Final eGFR is calculated based on the CKD-EPI 2020 equation SODIUM 12/26/2023 07:00:00 138 135-146 (m mol/L) Final Potassium 12/26/2023 07:00:00 4.8 3.5-5.1 (m mol/L) Final Cl 12/26/2023 07:00:00 101 98-107 (mm ol/L) Final CO2 12/26/2023 07:00:00 24 22-32 (mmo l/L) Final Anion gap 12/26/2023 07:00:00 13 7-15 (mmol /L) Final Glucose 12/26/2023 07:00:00 168 Above high normal 70 -120 (mg/dL) Final Albumin 12/26/2023 07:00:00 3.5 Below low normal 3.8 -5.0 (g/dL) Final AST (Aspartate aminotransferase) 12/26/2023 07:00:00 148 Above high normal 10-35 (U/L) Final Alk Phos 12/26/2023 07:00:00 168 Above high normal 35 -130 (U/L) Final Bilirubin, Total 12/26/2023 07:00:00 0.5 <=1 .2 (mg/dL) Final Calcium 12/26/2023 07:00:00 9.1 8.4-10.2 ( mg/dL) Final Protein 12/26/2023 07:00:00 6.4 6.0-8.3 (g /dL) Final ALT (Alanine aminotransferase) 12/26/2023 07:00:00 132 Above high normal 10-35 (U/L) Final Performing Location LABORATORY [facility] [place] - [address] [facility] [address]
--- OUTSIDE RECORDS SUMMARY | 2024-01-29 21:30 | External Medical Summary ---
Author Name Unknown Address Unknown Organization : Laboratory Report Ordering Provider Test Date Status ELVIA DE DIOS 12/27/2023 21:17:44 Final Observation Date Value Abnormality Reference (Units ) Status Glucose Point of Care 12/27/2023 21:17:44 217 Above high normal 70-120 (mg/dL) Final Performing Location
--- OUTSIDE RECORDS SUMMARY | 2024-01-29 21:30 | External Medical Summary ---
Author Name Unknown Address Unknown Organization K01:LABORATORY [facility] - [address] [facility] [address] [facility] [address] Laboratory Report Ordering Provider Test Date Status SONIA VILLARREAL 12/28/2023 04:23:00 Final Observation Date Value Abnormality Reference (Units ) Status SYNC LEUKOCYTES IN BLOOD BY AUTOMATED COUNT 12/28/2023 04:23:00 1.03 Below low normal 4.00-10.80 (K/uL) Final Lymphocytes/100 leukocytes in Blood by Manual count 12/28/2023 04:23:00 97.0 Above high normal 18.0-42.0 (%) Final Monocytes/100 leukocytes in Blood by Manual count 12/28/2023 04:23:00 3.0 1.0-11.0 (%) Final Lymphocytes [#/volume] in Blood by Manual count 12/28/2023 04:23:00 1.00 1.00-4.80 (K/uL) Final Monocytes [#/volume] in Blood by Manual count 12/28/2023 04:23:00 0.03 0.00-1.10 (K/uL) Final Performing Location LABORATORY [facility] - [address] [facility] [address]
--- OUTSIDE RECORDS SUMMARY | 2024-01-29 21:30 | External Medical Summary ---
Author Name Unknown Address Unknown Organization K01:LABORATORY [facility] - [address] [facility] [address] [facility] [address] Laboratory Report Ordering Provider Test Date Status CHERELLEPHOEBEROSA MARIA 12/27/2023 07:33:00 Final Observation Date Value Abnormality Reference (Units) Status Pathologist review of results 12/27/2023 07:33:00 Blood smear: Final Pathologist review of results 12/27/2023 07:33:00 - Pancytopenia, consistent with clinical history. Final Pathologist review of results 12/27/2023 07:33:00 Final Pathologist review of results 12/27/2023 07:33:00 Comment: Clinical history of chemotherapy for AML is noted. No blasts identified. Final Pathologist review of results 12/27/2023 07:33:00 Final Pathologist review of results 12/27/2023 07:33:00 WBC morphology: leukopenia; predominance of lymphocytes with large granular forms. Final Pathologist review of results 12/27/2023 07:33:00 RBC morphology: normocytic anemia. Final Pathologist review of results 12/27/2023 07:33:00 PLT morphology: decreased with predominantly small, well granulated, forms. Final Performing Location LABORATORY [facility] - [address] [facility] [address]
--- OUTSIDE RECORDS SUMMARY | 2024-01-29 21:30 | External Medical Summary ---
Author Name Unknown Address Unknown Organization K01:LABORATORY [facility] - [address] [facility] [address] [facility] [address] Laboratory Report Ordering Provider Test Date Status SONIA VILLARREAL 12/25/2023 06:54:00 Final Observation Date Value Abnormality Reference (Units ) Status SYNC LEUKOCYTES IN BLOOD BY AUTOMATED COUNT 12/25/2023 06:54:00 0.93 Below lower panic limits 4.00-10.80 (K/uL) Final Lymphocytes/100 leukocytes in Blood by Manual count 12/25/2023 06:54:00 98.0 Above high normal 18.0-42.0 (%) Final Monocytes/100 leukocytes in Blood by Manual count 12/25/2023 06:54:00 2.0 1.0-11.0 (%) Final Lymphocytes [#/volume] in Blood by Manual count 12/25/2023 06:54:00 0.91 Below low normal 1.00-4.80 (K/uL) Final Monocytes [#/volume] in Blood by Manual count 12/25/2023 06:54:00 0.02 0.00-1.10 (K/uL) Final Variant lymphocytes [Presence] in Blood by Light microscopy 12/25/2023 06:54:00 Present Abnormal None Seen Final Performing Location LABORATORY [facility] - [address] [facility] [address]
--- OUTSIDE RECORDS SUMMARY | 2024-01-29 21:31 | External Medical Summary ---
Author Name Unknown Address Unknown Organization [id number]:LAB[facility]ATORY [facility] [place] - [address] [facility] [address] Laboratory Report Ordering Provider Test Date Status SONIA VILLARREAL 12/22/2023 07:35:00 Final Observation Date Value Abnormality Reference (Units ) Status WBC, Total 12/22/2023 07:35:00 0.96 Below lower panic limits 4.00-10.80 (K/uL) Final RBC 12/22/2023 07:35:00 2.73 3.85-5.15 (M/uL) Final Hemoglobin 12/22/2023 07:35:00 8.2 Below low normal 12.0-15.3 (g/dL) Final HCT 12/22/2023 07:35:00 24.0 Below low normal 36.0-45.2 (%) Final MCV 12/22/2023 07:35:00 87.9 81.5-97.5 (fL) Final MCH 12/22/2023 07:35:00 30.0 27.0-34.0 (pg) Final MCHC 12/22/2023 07:35:00 34.2 32.0-36.0 (g/dL) Final RDW 12/22/2023 07:35:00 14.5 11.5-15.5 (%) Final Platelets 12/22/2023 07:35:00 31 Below low normal 140-400 (K/uL) Final MPV 12/22/2023 07:35:00 12.5 6.6-11.1 (fL) Final Nucleated erythrocytes/100 leukocytes [Ratio] in Blood by Automated count 12/22/2023 07:35:00 0 <=0 (/100 WBCs) Final Performing Location [facility] [place] - [address] [place] [address]
--- OUTSIDE RECORDS SUMMARY | 2024-01-29 21:31 | External Medical Summary ---
Author Name Unknown Address Unknown Organization [id number]:[facility] [place] [address] [place] [address] Laboratory Report Ordering Provider Test Date Status PHOEBE VILLARREALROSA MARIA 12/22/2023 07:35:00 Final Observation Date Value Abnormality Reference (Units ) Status BUN 12/22/2023 07:35:00 32 Above high normal 6-20 (mg/dL) Final Creatinine 12/22/2023 07:35:00 1.6 Above high normal 0.5-1.0 (mg/dL) Final Glomerular filtration rate/1.73 sq M.predicted [Volume Rate/Area] in Serum, Plasma or Blood by Creatinine-based formula (CKD-EPI) 12/22/2023 07:35:00 37 Below low normal >=60 (mL/min) Final eGFR is calculated based on the CKD-EPI 2020 equation SODIUM 12/22/2023 07:35:00 138 135-146 (m mol/L) Final Potassium 12/22/2023 07:35:00 4.1 3.5-5.1 (m mol/L) Final Cl 12/22/2023 07:35:00 97 Below low normal 98- 107 (mmol/L) Final CO2 12/22/2023 07:35:00 29 22-32 (mmo l/L) Final Anion gap 12/22/2023 07:35:00 12 7-15 (mmol /L) Final Glucose 12/22/2023 07:35:00 177 Above high normal 70 -120 (mg/dL) Final Albumin 12/22/2023 07:35:00 3.6 Below low normal 3.8 -5.0 (g/dL) Final AST (Aspartate aminotransferase) 12/22/2023 07:35:00 152 Above high normal 10-35 (U/L) Final Alk Phos 12/22/2023 07:35:00 162 Above high normal 35 -130 (U/L) Final Bilirubin, Total 12/22/2023 07:35:00 0.7 <=1 .2 (mg/dL) Final Calcium 12/22/2023 07:35:00 9.1 8.4-10.2 ( mg/dL) Final Protein 12/22/2023 07:35:00 6.6 6.0-8.3 (g /dL) Final ALT (Alanine aminotransferase) 12/22/2023 07:35:00 120 Above high normal 10-35 (U/L) Final Performing Location [facility] [place] [address] [facility] [address]
--- OUTSIDE RECORDS SUMMARY | 2024-01-29 21:31 | External Medical Summary ---
Author Name Unknown Address Unknown Organization [id number]:LABORATORY [facility] - [address] [facility] [address] Laboratory Report Ordering Provider Test Date Status CHERELLEKATINAPHUONGROSA MARIA 12/24/2023 05:27:00 Final Observation Date Value Abnormality Reference (Units ) Status SYNC LEUKOCYTES IN BLOOD BY AUTOMATED COUNT 12/24/2023 05:27:00 0.95 Below lower panic limits 4.00-10.80 (K/uL) Final Lymphocytes/100 leukocytes in Blood by Manual count 12/24/2023 05:27:00 99.0 Above high normal 18.0-42.0 (%) Final Known AML. Monocytes/100 leukocytes in Blood by Manual count 12/24/2023 05:27:00 1.0 1.0-11.0 (%) Final Lymphocytes [#/volume] in Blood by Manual count 12/24/2023 05:27:00 0.94 Below low normal 1.00-4.80 (K/uL) Final Monocytes [#/volume] in Blood by Manual count 12/24/2023 05:27:00 0.01 0.00-1.10 (K/uL) Final Variant lymphocytes [Presence] in Blood by Light microscopy 12/24/2023 05:27:00 Present Abnormal None Seen Final Performing Location [facility] - [address] [facility] [address]
--- OUTSIDE RECORDS SUMMARY | 2024-01-29 21:31 | External Medical Summary ---
Author Name Unknown Address Unknown Organization : Laboratory Report Ordering Provider Test Date Status SONIA VILLARREAL 12/23/2023 07:02:00 Final Observation Date Value Abnormality Reference (Units ) Status Performing Location
--- OUTSIDE RECORDS SUMMARY | 2024-01-29 21:31 | External Medical Summary ---
Author Name Unknown Address Unknown Organization : Laboratory Report Ordering Provider Test Date Status ELVIA DE DIOS 12/24/2023 16:36:40 Final Observation Date Value Abnormality Reference (Units ) Status Glucose Point of Care 12/24/2023 16:36:40 192 Above high normal 70-120 (mg/dL) Final Performing Location
--- OUTSIDE RECORDS SUMMARY | 2024-01-29 21:31 | External Medical Summary ---
Author Name Unknown Address Unknown Organization : Laboratory Report Ordering Provider Test Date Status ELVIA DE DIOS 12/22/2023 15:57:01 Final Observation Date Value Abnormality Reference (Units ) Status Glucose Point of Care 12/22/2023 15:57:01 195 Above high normal 70-120 (mg/dL) Final Performing Location
--- OUTSIDE RECORDS SUMMARY | 2024-01-29 21:31 | External Medical Summary ---
Author Name Unknown Address Unknown Organization : Laboratory Report Ordering Provider Test Date Status ELVIA DE DIOS 12/24/2023 07:55:00 Final Observation Date Value Abnormality Reference (Units ) Status Glucose Point of Care 12/24/2023 07:55:00 137 Above high normal 70-120 (mg/dL) Final Performing Location
--- OUTSIDE RECORDS SUMMARY | 2024-01-29 21:31 | External Medical Summary ---
Author Name Unknown Address Unknown Organization : Laboratory Report Ordering Provider Test Date Status ELVIA DE DIOS 12/21/2023 16:02:38 Final Observation Date Value Abnormality Reference (Units ) Status Glucose Point of Care 12/21/2023 16:02:38 233 Above high normal 70-120 (mg/dL) Final Performing Location
--- OUTSIDE RECORDS SUMMARY | 2024-01-29 21:31 | External Medical Summary ---
Author Name Unknown Address Unknown Organization K01:[facility] - [address] [facility] [address] Laboratory Report Ordering Provider Test Date Status CHERELLEKATINAPHUONGROSA MARIA 12/23/2023 07:02:00 Final Observation Date Value Abnormality Reference (Units ) Status SYNC LEUKOCYTES IN BLOOD BY AUTOMATED COUNT 12/23/2023 07:02:00 0.95 Below lower panic limits 4.00-10.80 (K/uL) Final Lymphocytes/100 leukocytes in Blood by Manual count 12/23/2023 07:02:00 97.0 Above high normal 18.0-42.0 (%) Final Monocytes/100 leukocytes in Blood by Manual count 12/23/2023 07:02:00 3.0 1.0-11.0 (%) Final Lymphocytes [#/volume] in Blood by Manual count 12/23/2023 07:02:00 0.92 Below low normal 1.00-4.80 (K/uL) Final Monocytes [#/volume] in Blood by Manual count 12/23/2023 07:02:00 0.03 0.00-1.10 (K/uL) Final Variant lymphocytes [Presence] in Blood by Light microscopy 12/23/2023 07:02:00 Present Abnormal None Seen Final Performing Location [facility] - [address] [facility] [address]
--- OUTSIDE RECORDS SUMMARY | 2024-01-29 21:31 | External Medical Summary ---
Author Name Unknown Address Unknown Organization : Laboratory Report Ordering Provider Test Date Status ELVIA DE DIOS 12/22/2023 22:07:56 Final Observation Date Value Abnormality Reference (Units ) Status Glucose Point of Care 12/22/2023 22:07:56 238 Above high normal 70-120 (mg/dL) Final Performing Location
--- OUTSIDE RECORDS SUMMARY | 2024-01-29 21:31 | External Medical Summary ---
Author Name Unknown Address Unknown Organization K01:[facility]ORY [facility] [place] - [address] [address] Laboratory Report Ordering Provider Test Date Status LUIS ALBERTOYAZANDEONTE 12/20/2023 06:24:00 Final Exclude Heart Failure: <300 pg/mL
Diagnose Heart Failure:
Age <50 yr: >450 pg/mL
50-75 yr: >900 pg/mL
>75 yr: >1800 pg/mL
GFR is 30-59 mL/min: >1200 pg/mL or Age- adjusted values
GFR <30 mL/min: do not use, not reliable

Prognostic threshold: 1000 pg/mL Observation Date Value Abnormality Reference (Units ) Status BNP, Pro-hormone 12/20/2023 06:24:00 349 Above high no rmal <300 (pg/mL) Final Performing Location LAB[facility]ORY [facility] [place] - [facility] [address] [address]
--- OUTSIDE RECORDS SUMMARY | 2024-01-29 21:31 | External Medical Summary ---
Author Name Unknown Address Unknown Organization K01:[facility] - [address] [place] [address] Laboratory Report Ordering Provider Test Date Status SONIA VILLARREAL 12/22/2023 07:35:00 Final Observation Date Value Abnormality Reference (Units ) Status Phosphate 12/22/2023 07:35:00 3.1 2.5-4.8 (m g/dL) Final Performing Location [facility] - [address] [place] [address]
--- OUTSIDE RECORDS SUMMARY | 2024-01-29 21:31 | External Medical Summary ---
Author Name Unknown Address Unknown Organization K01:[facility] [place] [address] [place] [address] Laboratory Report Ordering Provider Test Date Status SONIA VILLARREAL 12/20/2023 06:24:00 Final Observation Date Value Abnormality Reference (Units ) Status WBC, Total 12/20/2023 06:24:00 0.81 Below lower panic limits 4.00-10.80 (K/uL) Final RBC 12/20/2023 06:24:00 3.05 3.85-5.15 (M/uL) Final Hemoglobin 12/20/2023 06:24:00 9.0 Below low normal 12.0-15.3 (g/dL) Final HCT 12/20/2023 06:24:00 27.1 Below low normal 36.0-45.2 (%) Final MCV 12/20/2023 06:24:00 88.9 81.5-97.5 (fL) Final MCH 12/20/2023 06:24:00 29.5 27.0-34.0 (pg) Final MCHC 12/20/2023 06:24:00 33.2 32.0-36.0 (g/dL) Final RDW 12/20/2023 06:24:00 15.0 11.5-15.5 (%) Final Platelets 12/20/2023 06:24:00 36 Below low normal 140-400 (K/uL) Final MPV 12/20/2023 06:24:00 11.7 6.6-11.1 (fL) Final Nucleated erythrocytes/100 leukocytes [Ratio] in Blood by Automated count 12/20/2023 06:24:00 0 <=0 (/100 WBCs) Final Performing Location [facility] [place] [address] [place] [address]
--- OUTSIDE RECORDS SUMMARY | 2024-01-29 21:31 | External Medical Summary ---
Author Name Unknown Address Unknown Organization : Laboratory Report Ordering Provider Test Date Status ELVIA DE DIOS 12/21/2023 10:57:23 Final Observation Date Value Abnormality Reference (Units ) Status Glucose Point of Care 12/21/2023 10:57:23 184 Above high normal 70-120 (mg/dL) Final Performing Location
--- OUTSIDE RECORDS SUMMARY | 2024-01-29 21:31 | External Medical Summary ---
Author Name Unknown Address Unknown Organization K01[place] [facility] [place] [address] [facility] [place] [address] Laboratory Report Ordering Provider Test Date Status PHOEBE VILLARREALROSA MARIA 12/21/2023 07:29:00 Final Observation Date Value Abnormality Reference (Units ) Status BUN 12/21/2023 07:29:00 32 Above high normal 6-20 (mg/dL) Final Creatinine 12/21/2023 07:29:00 1.6 Above high normal 0.5-1.0 (mg/dL) Final Glomerular filtration rate/1.73 sq M.predicted [Volume Rate/Area] in Serum, Plasma or Blood by Creatinine-based formula (CKD-EPI) 12/21/2023 07:29:00 36 Below low normal >=60 (mL/min) Final eGFR is calculated based on the CKD-EPI 2020 equation SODIUM 12/21/2023 07:29:00 135 135-146 (m mol/L) Final Potassium 12/21/2023 07:29:00 3.5 3.5-5.1 (m mol/L) Final Cl 12/21/2023 07:29:00 94 Below low normal 98- 107 (mmol/L) Final CO2 12/21/2023 07:29:00 31 22-32 (mmo l/L) Final Anion gap 12/21/2023 07:29:00 10 7-15 (mmol /L) Final Glucose 12/21/2023 07:29:00 174 Above high normal 70 -120 (mg/dL) Final Albumin 12/21/2023 07:29:00 3.6 Below low normal 3.8 -5.0 (g/dL) Final AST (Aspartate aminotransferase) 12/21/2023 07:29:00 236 Above high normal 10-35 (U/L) Final Alk Phos 12/21/2023 07:29:00 168 Above high normal 35 -130 (U/L) Final Bilirubin, Total 12/21/2023 07:29:00 0.7 <=1 .2 (mg/dL) Final Calcium 12/21/2023 07:29:00 8.9 8.4-10.2 ( mg/dL) Final Protein 12/21/2023 07:29:00 6.6 6.0-8.3 (g /dL) Final ALT (Alanine aminotransferase) 12/21/2023 07:29:00 136 Above high normal 10-35 (U/L) Final Performing Location [place] [place] [address] [facility] [address]
--- OUTSIDE RECORDS SUMMARY | 2024-01-29 21:31 | External Medical Summary ---
Author Name Unknown Address Unknown Organization : Laboratory Report Ordering Provider Test Date Status SAMI HACKETT 12/19/2023 15:42:38 Final Observation Date Value Abnormality Reference (Units ) Status Glucose Point of Care 12/19/2023 15:42:38 177 Above high normal 70-120 (mg/dL) Final Performing Location
--- OUTSIDE RECORDS SUMMARY | 2024-01-29 21:31 | External Medical Summary ---
Author Name Unknown Address Unknown Organization : Laboratory Report Ordering Provider Test Date Status ELVIA DE DIOS 12/20/2023 11:55:19 Final Observation Date Value Abnormality Reference (Units ) Status Glucose Point of Care 12/20/2023 11:55:19 202 Above high normal 70-120 (mg/dL) Final Performing Location
--- OUTSIDE RECORDS SUMMARY | 2024-01-29 21:31 | External Medical Summary ---
Author Name Unknown Address Unknown Organization : Laboratory Report Ordering Provider Test Date Status ELVIA DE DIOS 12/23/2023 20:39:30 Final Observation Date Value Abnormality Reference (Units ) Status Glucose Point of Care 12/23/2023 20:39:30 269 Above high normal 70-120 (mg/dL) Final Performing Location
--- OUTSIDE RECORDS SUMMARY | 2024-01-29 21:31 | External Medical Summary ---
Author Name Unknown Address Unknown Organization : Laboratory Report Ordering Provider Test Date Status ELVIA DE DIOS 12/23/2023 16:23:39 Final Observation Date Value Abnormality Reference (Units ) Status Glucose Point of Care 12/23/2023 16:23:39 240 Above high normal 70-120 (mg/dL) Final Performing Location
--- OUTSIDE RECORDS SUMMARY | 2024-01-29 21:31 | External Medical Summary | Summary of Care ---
Author Name Unknown Organization [facility] Address [address] [place] [address] Phone [phone] Care Team Providers Care Habilitation Training Specialist Name Role Phone Ivonne French PA-C Primary Care Provider [phone] Reason for Visit * Auth/Cert Specialty Diagnoses / Procedures Referred By Lupis t Referred To Contact Referral ID Status Reason Start Date Expiration Date Visits Re quested Visits Authorized [id number] Encounter Details Date Type Department Care Team (Latest Contact Info) Description 12/20/2023 2:05 PM EST - 12/20/2023 11:59 PM EST Hospital Encounter Cardiac Studies [facility] [address], [place] [id number] Discharge Disposition: Home - Self Care Allergies Active Allergy Reactions Criticality Noted Date Comments Adhesive Tape 04/21/2016 Glue off the old style medical tape. documented as of this encounter (statuses as of 12/21/2023) Medications Medication Sig Dispensed Refills Start Date End Date Status Aspirin 81 MG Tablet Take 1 Tablet by mouth in the morning. 0 Suspended DULoxetine HCl 60 MG Oral Capsule Delayed Release Particles (Cymbalta) Take 1 Capsule by mouth in the morning. 180 Capsule 0 11/24/2022 Suspended Additional Information Lactulose 10 GM/15ML Oral Solution (Constulose)Indic ations:Constipati on, unspecified constipation type Take 30 mL by mouth in the morning and 30 mL at noon and 30 mL before bedtime. 240 mL 0 05/25/2023 Suspended Additional Information Melatonin 10 MG Oral Capsule Take 1 Capsule by mouth at bedtime. 100 Capsule 3 05/25/2023 Suspended Additional Information metFORMIN HCl 1000 MG Oral Tablet (Glucophage)Indic ations:Type 2 diabetes mellitus with hemoglobin A1c goal of 7.0%-8.0% (HCC) TAKE ONE TABLET BY MOUTH TWICE A DAY WITH MORNING AND EVENING MEALS 180 Tablet 1 05/25/2023 Suspended Additional Information MongoHQ Delica Lancets 33G Use to test blood sugar three times daily E 11.9 300 Each 05/25/2023 Suspended Additional Information Figleaves.comTouch Verio w/Device Kit Use up to 3 times a day E11.9 1 Kit 0 05/25/2023 Suspended Additional Information Pen [place] 32G X 4 MM Use as directed. Use to inject insulin 4 times daily 100 Each 05/25/2023 Suspended Additional Information Triamcinolone Acetonide 0.1 % External Ointment (Aristocort)Indic ations:Contact dermatitis, unspecified contact dermatitis type, unspecified trigger Apply topically to affected area 2 times a day. Apply to hands and feet 80 g 2 05/25/2023 Suspended Additional Information Levothyroxine Sodium 150 MCG Oral Tablet (Synthroid) One tab daily Wednesday through Wednesday - half tab daily Wednesday and wednesday 90 Tablet 1 07/20/2023 Suspended Additional Information Isosorbide Mononitrate ER 30 MG Oral Tablet Extended Release 24 Hour (Imdur) Take 1 Tablet by mouth in the morning. 30 Tablet 1 09/03/2023 Suspended Additional Information Magnesium 400 MG Oral TabletIndications :Restless legs syndrome Take 1 Tablet by mouth at bedtime. 90 Tablet 1 09/03/2023 Suspended Additional Information Mounjaro 10 MG/0.5ML Subcutaneous Solution Pen-injector (Tirzepatide) Inject 10 mg under the skin once a week. 6 mL 1 09/09/2023 Suspended Additional Information Linzess 72 MCG Oral Capsule (linaCLOtide)Lety cations:Drug-marian isael constipation Take 1 Capsule by mouth daily before breakfast. 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 135 Tablet 1 10/14/2023 Suspended Additional Information Omeprazole 20 MG Oral Capsule Delayed Release (PriLOSEC) Take 1 Capsule by mouth in the morning and 1 Capsule before bedtime. 180 Capsule 1 10/14/2023 Suspended Additional Information amLODIPine Besylate 2.5 MG Oral Tablet (Norvasc)Indicati ons:Essential hypertension with goal blood pressure less than 130/80 Take 1 Tablet by mouth in the morning. 90 Tablet 3 10/14/2023 Suspended Additional Information Rosuvastatin Calcium 20 MG Oral Tablet (Crestor) Take 1 Tablet by mouth daily. 90 Tablet 3 11/16/2023 Suspended Additional Information OneTouch Verio In Vitro Strip (Glucose Blood) Use up to 3 times a day E11.9 400 Strip 3 11/19/2023 Suspended Additional Information Insulin Glargine Solostar 100 UNIT/ML Subcutaneous Solution Pen-injector (Lantus SoloStar) Inject 45 Units under the skin at bedtime. 45 mL 3 11/19/2023 Suspended Additional Information Patient taking differently:45 Units Subcutaneous HS,Taking 35 units qhs, Reported on 11/24/2023 Insulin Lispro (1 Unit Dial) 100 UNIT/ML Subcutaneous Solution Pen-injector (HumaLOG KwikPen) Inject 24 Units under the skin in the morning and 24 Units at noon and 24 Units in the evening. Inject with meals. 60 mL 3 11/19/2023 Suspended Additional Information Patient taking differently:24 Units Subcutaneous WITH MEALS,Taking 20 units with meals, Reported on 11/24/2023 Allopurinol 300 MG Oral Tablet (Zyloprim)Indicat ions:Acute myeloid leukemia not having achieved remission (HCC) Take 1 Tablet by mouth in the morning. 30 Tablet 2 11/23/2023 Suspended Additional Information Hydroxyurea 500 MG Oral Capsule (Hydrea)Indicatio ns:Acute myeloid leukemia not having achieved remission (HCC) Take 1 Capsule by mouth 2 times a day 30 minutes before morning and evening meals. 60 Capsule 0 11/23/2023 Suspended Additional Information documented as of this encounter (statuses as of 12/21/2023) Active Problems Problem Noted Date Diagnosed Date [...] as of this encounter (statuses as of 12/21/2023) Resolved Problems Problem Noted Date Diagnosed Date [...] as of this encounter (statuses as of 12/21/2023) Immunizations Name Administration Dates Next Due COVID-19 [...] the money to buy more. Never true 02/17/20 23 Within the past 12 months, t [...] Care Team (Late st Contact Info) Description 12/23/2023 1:00 PM EST Office Visit Neurology, [place] [address] [facility] [place] [phone] Oralia Glass MD [address] [place] [facility] [place] [address] 12/29/2023 8:10 AM EST Pharmacy Pharmacy, [facility] [address] [facility] [place] [address] [place], [facility] [place] [address] [facility] [place] [address] 01/07/2024 10:00 AM EST [facility] [place] [id number] [facility] [phone] Ivonne French PA-C [address] [facility] [address] 01/31/2024 9:00 AM EDT Imaging Radiology [address], [place] [address] [facility] [place] [address] 02/10/2024 11:40 AM EDT Office Visit [facility] [place] [address] [facility] [phone] Ivonne French PA-C [address] [facility] [address] 05/10/2024 8:15 AM EDT Office Visit Ophthalmology, [place] [address] [place] [address] Migel Ramires MD [address] [place] [address] Scheduled Procedures Name Priority Associated Diagnoses Date/Ti me COLONOSCOPY FLEXIBLE PROXIMAL DIAGNOSTIC Recall History of colon polyps Health Maintenance Due Date Last Done Comments Pneumococcal Vaccine: Pediatrics (0 to 5 Years) and At-Risk Patients (6 to 64 Years) (2 - PCV) 12/20/2007 12/20/2006 Hepatitis B (3 of 3 - Risk 3-dose series) 08/20/2017 06/25/2017, 03/28/2015 COVID-19 Vaccine (3 - Moderna risk series) 09/16/2021 08/19/2021, 07/22/2021 Depression, Most Recent Score >= 10 (will fire each visit until score < 10) 12/26/2022 12/25/2022 Influenza Vaccine (FLU shot) (#1) 2023 Diabetic Foot Exam 11/24/2023 11/24/2022, 0 07/22/2021, 07/03/2020, Additional history exists B-12 12/25/2023 12/25/2022, 0 06/2022, 07/23/2021, Additional history exists Mammogram 01/28/2024 01/27/2023, 01/07, 08/03/2022, Additional history exists Diabetic Eye Exam 05/06/2024 05/06/2023, , 01/21/2022, Additional history exists HbA1c 05/09/2024 11/09/2023, 06/2023, 04/27/2023, Additional history exists Albumin/Creatinine Ratio 11/15/2024 024, 12/25/2022, 09/16/2022, Additional history exists TSH 12/12/2024 12/12/2023, 04/09, 12/25/2022, Additional history exists GFR 12/21/2024 12/21/2023, 12/09, 12/19/2023, Additional history exists PAP SMEAR-EVERY 3 YRS,AGES [...] this encounter Medical Devices Implanted Type Area Edge Inker Uppers Device Identifier Shelf Expiration Date Model / Serial / Lot Lens Intraoc 21.0 - [id number] - [id number] Implanted:Qty : 1 on 07/06/2017 by Luis Eduardo Cole MD at [facility] Left: Eye [employer] 01/05/2022 [id number] / [id number] / Lens Intraoc 21.0 - [id number] - [id number] Implanted:Qty : 1 on 07/20/2017 by Luis Eduardo Cole MD at OR [facility] Right: Eye [employer] 01/05/2022 [id number] / [id number] / Syringe Prolaryn Del 1.0cc - [id number] Implanted:Qty : 1 on 11/20/2019 by Amber Jain MD [place] [facility] [place]: Mouth [employer] 10/21/2021 [id number] / / [id number] Implant Silastic 7 Silicone Sw - [id number] Implanted:Qty : 1 on 05/28/2020 by Farhat Pate MD [place] [facility] Right: Throat [employer] [id number] / / documented as of this encounter Procedures Procedure Name Priority Date/Time Associated Diagnosis Comments ECHO, COMPLETE (2D), TRANS-THORACIC STAT 12/20/2023 3:25 PM EST Heart failure (HCC) documented in this encounter Visit Diagnoses Diagnosis family history ovarian cancer (mother)- Primary Family history of genetic disease carrier Other ill-defined heart diseases documented in this encounter Administered Medications Inactive Administered Medications - up to 3 most recent administrations Medication Order MAR Action Action Date Dose Rate Site perflutren lipid microsphere inj SUSP 1.956 mg 1.956 mg, Intravenous, ONCE PRN Other, For Echo Only - Suboptimal Echo Images, Starting on Wed12/20/23 at 1433, Until Wed12/20/23 at 1632, For 2 hours, Administer IVP over 45 seconds, Cardiac Studies_HODHOV Given 12/20/2023 2:55 PM EST 1.956 mg documented in this encounter Advance Directives Latest Code Status on File Code Status Date Activated Date Inactivated Comments No Code 11/24/2023 7:24 PM This orde r reflects the patients wishes and were consensually agreed upon. Question Answer Comments Discussion of Advance Directives occurred with: Patient Does the patient have a Living Will? No Does the patient have Health Care Power of Building Manager? No Code Status History Code Status [...] and were consensually agreed upon. Care Teams Habilitation Training Specialist Relationship Specialty Start Date End Date Ivonne French PA-C [address] [place] [id number] PCP - General Physician Ambulatory Care Nurse 07/24/21 documented as of this encounter
--- OUTSIDE RECORDS SUMMARY | 2024-01-29 21:31 | External Medical Summary ---
Author Name Unknown Address Unknown Organization [id number] [address] [place] [address] Laboratory Report Ordering Provider Test Date Status SONIA VILLARREAL 12/21/2023 07:29:00 Final Observation Date Value Abnormality Reference (Units ) Status Phosphate 12/21/2023 07:29:00 3.3 2.5-4.8 (m g/dL) Final Performing Location [facility] [address] [place] [address]
--- OUTSIDE RECORDS SUMMARY | 2024-01-29 21:31 | External Medical Summary ---
Author Name Unknown Address Unknown Organization [id number] - [address] [place] [address] Laboratory Report Ordering Provider Test Date Status SILAS ROCHE 12/19/2023 06:36:00 Final Observation Date Value Abnormality Reference (Units ) Status Magnesium 12/19/2023 06:36:00 1.9 1.5-2.6 (m g/dL) Final Performing Location [facility] - [address] [place] [address]
--- OUTSIDE RECORDS SUMMARY | 2024-01-29 21:31 | External Medical Summary ---
Author Name Unknown Address Unknown Organization : Laboratory Report Ordering Provider Test Date Status ELVIA DE DIOS 12/20/2023 07:31:07 Final Observation Date Value Abnormality Reference (Units ) Status Glucose Point of Care 12/20/2023 07:31:07 156 Above high normal 70-120 (mg/dL) Final Performing Location
--- OUTSIDE RECORDS SUMMARY | 2024-01-29 21:31 | External Medical Summary ---
Author Name Unknown Address Unknown Organization : Laboratory Report Ordering Provider Test Date Status ELVIA DE DIOS 12/23/2023 10:51:18 Final Observation Date Value Abnormality Reference (Units ) Status Glucose Point of Care 12/23/2023 10:51:18 168 Above high normal 70-120 (mg/dL) Final Performing Location
--- OUTSIDE RECORDS SUMMARY | 2024-01-29 21:31 | External Medical Summary ---
Author Name Unknown Address Unknown Organization : Laboratory Report Ordering Provider Test Date Status ELVIA DE DIOS 12/22/2023 11:09:26 Final Observation Date Value Abnormality Reference (Units ) Status Glucose Point of Care 12/22/2023 11:09:26 224 Above high normal 70-120 (mg/dL) Final Performing Location
--- OUTSIDE RECORDS SUMMARY | 2024-01-29 21:31 | External Medical Summary ---
Author Name Unknown Address Unknown Organization : Laboratory Report Ordering Provider Test Date Status ELVIA DE DIOS 12/20/2023 21:35:47 Final Observation Date Value Abnormality Reference (Units ) Status Glucose Point of Care 12/20/2023 21:35:47 252 Above high normal 70-120 (mg/dL) Final Performing Location
--- OUTSIDE RECORDS SUMMARY | 2024-01-29 21:31 | External Medical Summary ---
Author Name Unknown Address Unknown Organization [facility] [address] [place] [address] Laboratory Report Ordering Provider Test Date Status SONIA VILLARREAL 12/23/2023 07:02:00 Final Observation Date Value Abnormality Reference (Units ) Status Phosphate 12/23/2023 07:02:00 3.5 2.5-4.8 (m g/dL) Final Performing Location [facility] [address] [place] [address]
--- OUTSIDE RECORDS SUMMARY | 2024-01-29 21:31 | External Medical Summary ---
Author Name Unknown Address Unknown Organization K[facility] [place] [facility] [id number] Laboratory Report Ordering Provider Test Date Status SONIA VILLARREAL 12/24/2023 05:27:00 Final Observation Date Value Abnormality Reference (Units ) Status WBC, Total 12/24/2023 05:27:00 0.95 Below lower panic limits 4.00-10.80 (K/uL) Final RBC 12/24/2023 05:27:00 2.61 3.85-5.15 (M/uL) Final Hemoglobin 12/24/2023 05:27:00 7.8 Below low normal 12.0-15.3 (g/dL) Final HCT 12/24/2023 05:27:00 22.7 Below low normal 36.0-45.2 (%) Final MCV 12/24/2023 05:27:00 87.0 81.5-97.5 (fL) Final MCH 12/24/2023 05:27:00 29.9 27.0-34.0 (pg) Final MCHC 12/24/2023 05:27:00 34.4 32.0-36.0 (g/dL) Final RDW 12/24/2023 05:27:00 14.3 11.5-15.5 (%) Final Platelets 12/24/2023 05:27:00 27 Below low normal 140-400 (K/uL) Final MPV 12/24/2023 05:27:00 10.1 6.6-11.1 (fL) Final Nucleated erythrocytes/100 leukocytes [Ratio] in Blood by Automated count 12/24/2023 05:27:00 0 <=0 (/100 WBCs) Final Performing Location [facility] [place] [address] [place] [address]
--- OUTSIDE RECORDS SUMMARY | 2024-01-29 21:31 | External Medical Summary ---
Author Name Unknown Address Unknown Organization K01[facility] [place] [address] [facility] [place] [address] Laboratory Report Ordering Provider Test Date Status CHERELLEPHOEBE HERNANDEZROSA MARIA 12/20/2023 06:24:00 Final Observation Date Value Abnormality Reference (Units ) Status BUN 12/20/2023 06:24:00 32 Above high normal 6-20 (mg/dL) Final Creatinine 12/20/2023 06:24:00 1.8 Above high normal 0.5-1.0 (mg/dL) Final Glomerular filtration rate/1.73 sq M.predicted [Volume Rate/Area] in Serum, Plasma or Blood by Creatinine-based formula (CKD-EPI) 12/20/2023 06:24:00 33 Below low normal >=60 (mL/min) Final eGFR is calculated based on the CKD-EPI 2020 equation SODIUM 12/20/2023 06:24:00 140 135-146 (m mol/L) Final Potassium 12/20/2023 06:24:00 3.6 3.5-5.1 (m mol/L) Final Cl 12/20/2023 06:24:00 96 Below low normal 98- 107 (mmol/L) Final CO2 12/20/2023 06:24:00 31 22-32 (mmo l/L) Final Anion gap 12/20/2023 06:24:00 13 7-15 (mmol /L) Final Glucose 12/20/2023 06:24:00 150 Above high normal 70 -120 (mg/dL) Final Albumin 12/20/2023 06:24:00 3.5 Below low normal 3.8 -5.0 (g/dL) Final AST (Aspartate aminotransferase) 12/20/2023 06:24:00 276 Above high normal 10-35 (U/L) Final Alk Phos 12/20/2023 06:24:00 162 Above high normal 35 -130 (U/L) Final Bilirubin, Total 12/20/2023 06:24:00 0.8 <=1 .2 (mg/dL) Final Calcium 12/20/2023 06:24:00 9.2 8.4-10.2 ( mg/dL) Final Protein 12/20/2023 06:24:00 6.8 6.0-8.3 (g /dL) Final ALT (Alanine aminotransferase) 12/20/2023 06:24:00 130 Above high normal 10-35 (U/L) Final Performing Location [facility] [place] [address] [facility] [address]
--- OUTSIDE RECORDS SUMMARY | 2024-01-29 21:31 | External Medical Summary ---
Author Name Unknown Address Unknown Organization : Laboratory Report Ordering Provider Test Date Status ELVIA DE DIOS 12/22/2023 06:39:37 Final Observation Date Value Abnormality Reference (Units ) Status Glucose Point of Care 12/22/2023 06:39:37 189 Above high normal 70-120 (mg/dL) Final Performing Location
--- OUTSIDE RECORDS SUMMARY | 2024-01-29 21:31 | External Medical Summary ---
Author Name Unknown Address Unknown Organization K01:[facility] [address] [facility] [address] [facility] [address] Laboratory Report Ordering Provider Test Date Status SONIA VILLARREAL 12/21/2023 07:29:00 Final Observation Date Value Abnormality Reference (Units ) Status SYNC LEUKOCYTES IN BLOOD BY AUTOMATED COUNT 12/21/2023 07:29:00 0.88 Below lower panic limits 4.00-10.80 (K/uL) Final Lymphocytes/100 leukocytes in Blood by Manual count 12/21/2023 07:29:00 98.0 Above high normal 18.0-42.0 (%) Final Monocytes/100 leukocytes in Blood by Manual count 12/21/2023 07:29:00 2.0 1.0-11.0 (%) Final Lymphocytes [#/volume] in Blood by Manual count 12/21/2023 07:29:00 0.86 Below low normal 1.00-4.80 (K/uL) Final Monocytes [#/volume] in Blood by Manual count 12/21/2023 07:29:00 0.02 0.00-1.10 (K/uL) Final Performing Location [facility] - [address] [place] [address]
--- OUTSIDE RECORDS SUMMARY | 2024-01-29 21:31 | External Medical Summary ---
Author Name Unknown Address Unknown Organization : Laboratory Report Ordering Provider Test Date Status SMAI HACKETT 12/19/2023 21:09:16 Final Observation Date Value Abnormality Reference (Units ) Status Glucose Point of Care 12/19/2023 21:09:16 187 Above high normal 70-120 (mg/dL) Final Performing Location
--- OUTSIDE RECORDS SUMMARY | 2024-01-29 21:31 | External Medical Summary ---
Author Name Unknown Address Unknown Organization : Laboratory Report Ordering Provider Test Date Status SAMI HACKETT 12/19/2023 11:10:54 Final Observation Date Value Abnormality Reference (Units ) Status Glucose Point of Care 12/19/2023 11:10:54 195 Above high normal 70-120 (mg/dL) Final Performing Location
--- OUTSIDE RECORDS SUMMARY | 2024-01-29 21:31 | External Medical Summary ---
Author Name Unknown Address Unknown Organization K01:[facility] - [address] [facility] [address] [facility] [address] Laboratory Report Ordering Provider Test Date Status CHERELLEPHOEBEROSA MARIA 12/22/2023 07:35:00 Final Observation Date Value Abnormality Reference (Units ) Status SYNC LEUKOCYTES IN BLOOD BY AUTOMATED COUNT 12/22/2023 07:35:00 0.96 Below lower panic limits 4.00-10.80 (K/uL) Final Neutrophils/100 leukocytes in Blood by Manual count 12/22/2023 07:35:00 1.0 Below low normal 40.0-75.0 (%) Final Lymphocytes/100 leukocytes in Blood by Manual count 12/22/2023 07:35:00 96.0 Above high normal 18.0-42.0 (%) Final Monocytes/100 leukocytes in Blood by Manual count 12/22/2023 07:35:00 3.0 1.0-11.0 (%) Final Neutrophils [#/volume] in Blood by Manual count 12/22/2023 07:35:00 0.01 Below low normal 1.80-7.70 (K/uL) Final Lymphocytes [#/volume] in Blood by Manual count 12/22/2023 07:35:00 0.92 Below low normal 1.00-4.80 (K/uL) Final Monocytes [#/volume] in Blood by Manual count 12/22/2023 07:35:00 0.03 0.00-1.10 (K/uL) Final Variant lymphocytes [Presence] in Blood by Light microscopy 12/22/2023 07:35:00 Present Abnormal None Seen Final Performing Location [facility] - [address] [facility] [address] [facility] [address]
--- OUTSIDE RECORDS SUMMARY | 2024-01-29 21:31 | External Medical Summary ---
Author Name Unknown Address Unknown Organization : Laboratory Report Ordering Provider Test Date Status ELVIA ED DIOS 12/23/2023 06:55:24 Final Observation Date Value Abnormality Reference (Units ) Status Glucose Point of Care 12/23/2023 06:55:24 176 Above high normal 70-120 (mg/dL) Final Performing Location
--- OUTSIDE RECORDS SUMMARY | 2024-01-29 21:31 | External Medical Summary ---
Author Name Unknown Address Unknown Organization : Laboratory Report Ordering Provider Test Date Status ELVIA DE DIOS 12/20/2023 16:19:26 Final Observation Date Value Abnormality Reference (Units ) Status Glucose Point of Care 12/20/2023 16:19:26 193 Above high normal 70-120 (mg/dL) Final Performing Location
--- OUTSIDE RECORDS SUMMARY | 2024-01-29 21:31 | External Medical Summary ---
Author Name Unknown Address Unknown Organization K01:[facility] [place] [place] - [address] [facility] [place] [address] Laboratory Report Ordering Provider Test Date Status CHERELLEPHOEBE HERNANDEZROSA MARIA 12/23/2023 07:02:00 Final Observation Date Value Abnormality Reference (Units ) Status BUN 12/23/2023 07:02:00 35 Above high normal 6-20 (mg/dL) Final Creatinine 12/23/2023 07:02:00 1.5 Above high normal 0.5-1.0 (mg/dL) Final Glomerular filtration rate/1.73 sq M.predicted [Volume Rate/Area] in Serum, Plasma or Blood by Creatinine-based formula (CKD-EPI) 12/23/2023 07:02:00 38 Below low normal >=60 (mL/min) Final eGFR is calculated based on the CKD-EPI 2020 equation SODIUM 12/23/2023 07:02:00 139 135-146 (m mol/L) Final Potassium 12/23/2023 07:02:00 4.3 3.5-5.1 (m mol/L) Final Cl 12/23/2023 07:02:00 101 98-107 (mm ol/L) Final CO2 12/23/2023 07:02:00 28 22-32 (mmo l/L) Final Anion gap 12/23/2023 07:02:00 10 7-15 (mmol /L) Final Glucose 12/23/2023 07:02:00 179 Above high normal 70 -120 (mg/dL) Final Albumin 12/23/2023 07:02:00 3.4 Below low normal 3.8 -5.0 (g/dL) Final AST (Aspartate aminotransferase) 12/23/2023 07:02:00 202 Above high normal 10-35 (U/L) Final Alk Phos 12/23/2023 07:02:00 164 Above high normal 35 -130 (U/L) Final Bilirubin, Total 12/23/2023 07:02:00 0.6 <=1 .2 (mg/dL) Final Calcium 12/23/2023 07:02:00 9.1 8.4-10.2 ( mg/dL) Final Protein 12/23/2023 07:02:00 6.4 6.0-8.3 (g /dL) Final ALT (Alanine aminotransferase) 12/23/2023 07:02:00 140 Above high normal 10-35 (U/L) Final Performing Location [facility]ORY [facility] [place] [place] - [address] [facility] [place] [address]
--- OUTSIDE RECORDS SUMMARY | 2024-01-29 21:31 | External Medical Summary ---
Author Name Unknown Address Unknown Organization K01:[facility] [place] [address] [facility] [place] [address] Laboratory Report Ordering Provider Test Date Status PHOEBE VILLARREALROSA MARIA 12/24/2023 05:27:00 Final Observation Date Value Abnormality Reference (Units ) Status BUN 12/24/2023 05:27:00 35 Above high normal 6-20 (mg/dL) Final Creatinine 12/24/2023 05:27:00 1.5 Above high normal 0.5-1.0 (mg/dL) Final Glomerular filtration rate/1.73 sq M.predicted [Volume Rate/Area] in Serum, Plasma or Blood by Creatinine-based formula (CKD-EPI) 12/24/2023 05:27:00 40 Below low normal >=60 (mL/min) Final eGFR is calculated based on the CKD-EPI 2020 equation SODIUM 12/24/2023 05:27:00 139 135-146 (m mol/L) Final Potassium 12/24/2023 05:27:00 4.3 3.5-5.1 (m mol/L) Final Cl 12/24/2023 05:27:00 102 98-107 (mm ol/L) Final CO2 12/24/2023 05:27:00 24 22-32 (mmo l/L) Final Anion gap 12/24/2023 05:27:00 13 7-15 (mmol /L) Final Glucose 12/24/2023 05:27:00 124 Above high normal 70 -120 (mg/dL) Final Albumin 12/24/2023 05:27:00 3.5 Below low normal 3.8 -5.0 (g/dL) Final AST (Aspartate aminotransferase) 12/24/2023 05:27:00 184 Above high normal 10-35 (U/L) Final Alk Phos 12/24/2023 05:27:00 166 Above high normal 35 -130 (U/L) Final Bilirubin, Total 12/24/2023 05:27:00 0.6 <=1 .2 (mg/dL) Final Calcium 12/24/2023 05:27:00 9.5 8.4-10.2 ( mg/dL) Final Protein 12/24/2023 05:27:00 6.5 6.0-8.3 (g /dL) Final ALT (Alanine aminotransferase) 12/24/2023 05:27:00 145 Above high normal 10-35 (U/L) Final Performing Location [facility] [place] [address] [facility] [address]
--- OUTSIDE RECORDS SUMMARY | 2024-01-29 21:31 | External Medical Summary ---
Author Name Unknown Address Unknown Organization : Laboratory Report Ordering Provider Test Date Status ELVIA DE DIOS 12/21/2023 06:47:40 Final Observation Date Value Abnormality Reference (Units ) Status Glucose Point of Care 12/21/2023 06:47:40 180 Above high normal 70-120 (mg/dL) Final Performing Location
--- OUTSIDE RECORDS SUMMARY | 2024-01-29 21:31 | External Medical Summary ---
Author Name Unknown Address Unknown Organization : Laboratory Report Ordering Provider Test Date Status ELVIA DE DIOS 12/21/2023 21:36:40 Final Observation Date Value Abnormality Reference (Units ) Status Glucose Point of Care 12/21/2023 21:36:40 267 Above high normal 70-120 (mg/dL) Final Performing Location
--- OUTSIDE RECORDS SUMMARY | 2024-01-29 21:31 | External Medical Summary ---
Author Name Unknown Address Unknown Organization : Laboratory Report Ordering Provider Test Date Status ELVIA DE DIOS 12/24/2023 12:03:38 Final Observation Date Value Abnormality Reference (Units ) Status Glucose Point of Care 12/24/2023 12:03:38 250 Above high normal 70-120 (mg/dL) Final Performing Location
--- OUTSIDE RECORDS SUMMARY | 2024-01-29 21:31 | External Medical Summary ---
Author Name Unknown Address Unknown Organization : Laboratory Report Ordering Provider Test Date Status ELVIA DE DIOS 12/24/2023 21:00:02 Final Observation Date Value Abnormality Reference (Units ) Status Glucose Point of Care 12/24/2023 21:00:02 256 Above high normal 70-120 (mg/dL) Final Performing Location
--- OUTSIDE RECORDS SUMMARY | 2024-01-29 21:31 | External Medical Summary ---
Author Name Unknown Address Unknown Organization K01:[facility]ATORY [facility] - [address] [place] [address] Laboratory Report Ordering Provider Test Date Status SONIA VILLARREAL 12/24/2023 05:27:00 Final Observation Date Value Abnormality Reference (Units ) Status Phosphate 12/24/2023 05:27:00 3.7 2.5-4.8 (m g/dL) Final Performing Location LAB[facility]AT[facility] - [address] [place] [address]
--- OUTSIDE RECORDS SUMMARY | 2024-01-29 21:31 | External Medical Summary ---
Author Name Unknown Address Unknown Organization K01:[facility]ORY [facility] [place] [facility] - [address] [address] Laboratory Report Ordering Provider Test Date Status SONIA VILLARREAL 12/22/2023 07:35:00 Final Observation Date Value Abnormality Reference (Units ) Status ABO 12/22/2023 07:35:00 O Final RH 12/22/2023 07:35:00 Positive Final RED BLOOD CELL ANTIBODY SCREEN 12/22/2023 07:35:00 Negative Final SPECIMEN EXPIRATION DATE 12/22/2023 07:35:00 12/25/2023 23:59 Final Performing Location LABORATORY [facility] - [address] [place] [address]
--- OUTSIDE RECORDS SUMMARY | 2024-01-29 21:31 | External Medical Summary ---
Author Name Unknown Address Unknown Organization K01:LABORATORY [facility] - [address] [facility] [address] Laboratory Report Ordering Provider Test Date Status CHERELLESONIA 12/20/2023 06:24:00 Final Observation Date Value Abnormality Reference (Units ) Status SYNC LEUKOCYTES IN BLOOD BY AUTOMATED COUNT 12/20/2023 06:24:00 0.81 Below lower panic limits 4.00-10.80 (K/uL) Final Neutrophils/100 leukocytes in Blood by Manual count 12/20/2023 06:24:00 1.0 Below low normal 40.0-75.0 (%) Final Lymphocytes/100 leukocytes in Blood by Manual count 12/20/2023 06:24:00 94.0 Above high normal 18.0-42.0 (%) Final Monocytes/100 leukocytes in Blood by Manual count 12/20/2023 06:24:00 5.0 1.0-11.0 (%) Final Neutrophils [#/volume] in Blood by Manual count 12/20/2023 06:24:00 0.01 Below low normal 1.80-7.70 (K/uL) Final Lymphocytes [#/volume] in Blood by Manual count 12/20/2023 06:24:00 0.76 Below low normal 1.00-4.80 (K/uL) Final Monocytes [#/volume] in Blood by Manual count 12/20/2023 06:24:00 0.04 0.00-1.10 (K/uL) Final Performing Location LAB[facility]ATORY [facility] - [address] [facility] [address] [place] [address]
--- OUTSIDE RECORDS SUMMARY | 2024-01-29 21:31 | External Medical Summary ---
Author Name Unknown Address Unknown Organization K01:LAB[facility]ATORY [facility] [place] - [address] [place] [address] Laboratory Report Ordering Provider Test Date Status SONIA VILLARREAL 12/23/2023 07:02:00 Final Observation Date Value Abnormality Reference (Units ) Status WBC, Total 12/23/2023 07:02:00 0.95 Below lower panic limits 4.00-10.80 (K/uL) Final RBC 12/23/2023 07:02:00 2.66 3.85-5.15 (M/uL) Final Hemoglobin 12/23/2023 07:02:00 7.9 Below low normal 12.0-15.3 (g/dL) Final HCT 12/23/2023 07:02:00 23.1 Below low normal 36.0-45.2 (%) Final MCV 12/23/2023 07:02:00 86.8 81.5-97.5 (fL) Final MCH 12/23/2023 07:02:00 29.7 27.0-34.0 (pg) Final MCHC 12/23/2023 07:02:00 34.2 32.0-36.0 (g/dL) Final RDW 12/23/2023 07:02:00 14.5 11.5-15.5 (%) Final Platelets 12/23/2023 07:02:00 31 Below low normal 140-400 (K/uL) Final MPV 12/23/2023 07:02:00 11.5 6.6-11.1 (fL) Final Nucleated erythrocytes/100 leukocytes [Ratio] in Blood by Automated count 12/23/2023 07:02:00 0 <=0 (/100 WBCs) Final Performing Location LABORATORY [facility] [place] - [address] [place] [address]
--- OUTSIDE RECORDS SUMMARY | 2024-01-29 21:31 | External Medical Summary ---
Author Name Unknown Address Unknown Organization K01:[facility]ORY [facility] [place] [facility] - [address] [address] Laboratory Report Ordering Provider Test Date Status SONIA VILLARREAL 12/19/2023 06:36:00 Final Observation Date Value Abnormality Reference (Units ) Status ABO 12/19/2023 06:36:00 O Final RH 12/19/2023 06:36:00 Positive Final RED BLOOD CELL ANTIBODY SCREEN 12/19/2023 06:36:00 Negative Final SPECIMEN EXPIRATION DATE 12/19/2023 06:36:00 12/22/2023 23:59 Final Performing Location LAB[facility] [place] [facility] - [address] [place] [address]
--- OUTSIDE RECORDS SUMMARY | 2024-01-29 21:32 | External Medical Summary ---
Author Name Unknown Address Unknown Organization K01:LAB[facility]ATORY [facility] - [address] [place] [address] Laboratory Report Ordering Provider Test Date Status SONIA VILLARREAL 12/14/2023 06:41:00 Final Observation Date Value Abnormality Reference (Units ) Status Phosphate 12/14/2023 06:41:00 3.0 2.5-4.8 (m g/dL) Final Performing Location LAB[facility]ATORY [facility] - [address] [place] [address]
--- OUTSIDE RECORDS SUMMARY | 2024-01-29 21:32 | External Medical Summary ---
Author Name Unknown Address Unknown Organization : Laboratory Report Ordering Provider Test Date Status RAMIN HACKETT 12/16/2023 16:37:05 Final Observation Date Value Abnormality Reference (Units ) Status Glucose Point of Care 12/16/2023 16:37:05 216 Above high normal 70-120 (mg/dL) Final Performing Location
--- OUTSIDE RECORDS SUMMARY | 2024-01-29 21:32 | External Medical Summary ---
Author Name Unknown Address Unknown Organization K01:LABORATORY [facility] [place] - [address] [place] [address] Laboratory Report Ordering Provider Test Date Status PHOEBE VILLARREALROSA MARIA 12/19/2023 06:36:00 Final Observation Date Value Abnormality Reference (Units ) Status BUN 12/19/2023 06:36:00 35 Above high normal 6-20 (mg/dL) Final Creatinine 12/19/2023 06:36:00 1.7 Above high normal 0.5-1.0 (mg/dL) Final Glomerular filtration rate/1.73 sq M.predicted [Volume Rate/Area] in Serum, Plasma or Blood by Creatinine-based formula (CKD-EPI) 12/19/2023 06:36:00 34 Below low normal >=60 (mL/min) Final eGFR is calculated based on the CKD-EPI 2020 equation SODIUM 12/19/2023 06:36:00 137 135-146 (m mol/L) Final Potassium 12/19/2023 06:36:00 3.6 3.5-5.1 (m mol/L) Final Cl 12/19/2023 06:36:00 95 Below low normal 98- 107 (mmol/L) Final CO2 12/19/2023 06:36:00 29 22-32 (mmo l/L) Final Anion gap 12/19/2023 06:36:00 13 7-15 (mmol /L) Final Glucose 12/19/2023 06:36:00 199 Above high normal 70 -120 (mg/dL) Final Albumin 12/19/2023 06:36:00 3.5 Below low normal 3.8 -5.0 (g/dL) Final AST (Aspartate aminotransferase) 12/19/2023 06:36:00 124 Above high normal 10-35 (U/L) Final Alk Phos 12/19/2023 06:36:00 111 35-130 (U/ L) Final Bilirubin, Total 12/19/2023 06:36:00 0.7 <=1 .2 (mg/dL) Final Calcium 12/19/2023 06:36:00 8.6 8.4-10.2 ( mg/dL) Final Protein 12/19/2023 06:36:00 6.6 6.0-8.3 (g /dL) Final ALT (Alanine aminotransferase) 12/19/2023 06:36:00 57 Above high normal 10-35 (U/L) Final Performing Location LABORATORY [facility] [place] - [address] [facility] [address]
--- OUTSIDE RECORDS SUMMARY | 2024-01-29 21:32 | External Medical Summary ---
Author Name Unknown Address Unknown Organization : Laboratory Report Ordering Provider Test Date Status SAMI HACKETT 12/19/2023 06:32:31 Final Observation Date Value Abnormality Reference (Units ) Status Glucose Point of Care 12/19/2023 06:32:31 202 Above high normal 70-120 (mg/dL) Final Performing Location
--- OUTSIDE RECORDS SUMMARY | 2024-01-29 21:32 | External Medical Summary ---
Author Name Unknown Address Unknown Organization K01:LABORATORY [facility] - [address] [place] [address] Laboratory Report Ordering Provider Test Date Status SONIA VILLARREAL 12/15/2023 09:53:00 Final Observation Date Value Abnormality Reference (Units ) Status Phosphate 12/15/2023 09:53:00 2.8 2.5-4.8 (m g/dL) Final Performing Location LAB[facility]ATORY [facility] - [address] [place] [address]
--- OUTSIDE RECORDS SUMMARY | 2024-01-29 21:32 | External Medical Summary ---
Author Name Unknown Address Unknown Organization : Laboratory Report Ordering Provider Test Date Status SAMI HACKETT 12/18/2023 20:55:22 Final Observation Date Value Abnormality Reference (Units ) Status Glucose Point of Care 12/18/2023 20:55:22 215 Above high normal 70-120 (mg/dL) Final Performing Location
--- OUTSIDE RECORDS SUMMARY | 2024-01-29 21:32 | External Medical Summary ---
Author Name Unknown Address Unknown Organization K01:LABORATORY [facility] - [address] [facility] [address] [facility] [address] Laboratory Report Ordering Provider Test Date Status SONIA VILLARREAL 12/19/2023 06:36:00 Final Observation Date Value Abnormality Reference (Units ) Status SYNC LEUKOCYTES IN BLOOD BY AUTOMATED COUNT 12/19/2023 06:36:00 0.88 Below lower panic limits 4.00-10.80 (K/uL) Final Lymphocytes/100 leukocytes in Blood by Manual count 12/19/2023 06:36:00 99.0 Above high normal 18.0-42.0 (%) Final Monocytes/100 leukocytes in Blood by Manual count 12/19/2023 06:36:00 1.0 1.0-11.0 (%) Final Lymphocytes [#/volume] in Blood by Manual count 12/19/2023 06:36:00 0.87 Below low normal 1.00-4.80 (K/uL) Final Monocytes [#/volume] in Blood by Manual count 12/19/2023 06:36:00 0.01 0.00-1.10 (K/uL) Final Performing Location LABORATORY [facility] - [address] [place] [address]
--- OUTSIDE RECORDS SUMMARY | 2024-01-29 21:32 | External Medical Summary ---
Author Name Unknown Address Unknown Organization K01:[place] [place] [address] [facility] [address] Laboratory Report Ordering Provider Test Date Status SONIA VILLARREAL 12/15/2023 09:53:00 Final Observation Date Value Abnormality Reference (Units ) Status SYNC LEUKOCYTES IN BLOOD BY AUTOMATED COUNT 12/15/2023 09:53:00 0.85 Below lower panic limits 4.00-10.80 (K/uL) Final Lymphocytes/100 leukocytes in Blood by Manual count 12/15/2023 09:53:00 82.0 Above high normal 18.0-42.0 (%) Final Monocytes/100 leukocytes in Blood by Manual count 12/15/2023 09:53:00 11.0 1.0-11.0 (%) Final Blasts/100 leukocytes in Blood by Manual count 12/15/2023 09:53:00 7.0 Above high normal <=0.0 (%) Final Lymphocytes [#/volume] in Blood by Manual count 12/15/2023 09:53:00 0.70 Below low normal 1.00-4.80 (K/uL) Final Monocytes [#/volume] in Blood by Manual count 12/15/2023 09:53:00 0.09 0.00-1.10 (K/uL) Final Blasts [#/volume] in Blood by Manual count 12/15/2023 09:53:00 0.06 Above high normal <=0.00 (K/uL) Final Performing Location LABORATORY [facility] - [address] [facility] [address]
--- OUTSIDE RECORDS SUMMARY | 2024-01-29 21:32 | External Medical Summary ---
Author Name Unknown Address Unknown Organization : Laboratory Report Ordering Provider Test Date Status SONIA VILLARRAEL 12/14/2023 06:41:00 Final Observation Date Value Abnormality Reference (Units ) Status Performing Location
--- OUTSIDE RECORDS SUMMARY | 2024-01-29 21:32 | External Medical Summary ---
Author Name Unknown Address Unknown Organization K01:LABORATORY [facility] [place] - [address] [facility] [address] Laboratory Report Ordering Provider Test Date Status SONIA VILLARREAL 12/18/2023 07:28:00 Final Observation Date Value Abnormality Reference (Units ) Status WBC, Total 12/18/2023 07:28:00 0.87 Below lower panic limits 4.00-10.80 (K/uL) Final RBC 12/18/2023 07:28:00 2.88 3.85-5.15 (M/uL) Final Hemoglobin 12/18/2023 07:28:00 8.6 Below low normal 12.0-15.3 (g/dL) Final HCT 12/18/2023 07:28:00 25.2 Below low normal 36.0-45.2 (%) Final MCV 12/18/2023 07:28:00 87.5 81.5-97.5 (fL) Final MCH 12/18/2023 07:28:00 29.9 27.0-34.0 (pg) Final MCHC 12/18/2023 07:28:00 34.1 32.0-36.0 (g/dL) Final RDW 12/18/2023 07:28:00 16.0 11.5-15.5 (%) Final Platelets 12/18/2023 07:28:00 33 Below low normal 140-400 (K/uL) Final MPV 12/18/2023 07:28:00 11.4 6.6-11.1 (fL) Final Nucleated erythrocytes/100 leukocytes [Ratio] in Blood by Automated count 12/18/2023 07:28:00 0 <=0 (/100 WBCs) Final Performing Location LABORATORY [facility] [place] - [address] [place] [address]
--- OUTSIDE RECORDS SUMMARY | 2024-01-29 21:32 | External Medical Summary ---
Author Name Unknown Address Unknown Organization K01:LABORATORY [facility] [place] - [address] [place] [address] Laboratory Report Ordering Provider Test Date Status CHERELLEPHOEBE HERNANDEZROSA MARIA 12/14/2023 06:41:00 Final Observation Date Value Abnormality Reference (Units ) Status BUN 12/14/2023 06:41:00 26 Above high normal 6-20 (mg/dL) Final Creatinine 12/14/2023 06:41:00 1.3 Above high normal 0.5-1.0 (mg/dL) Final Glomerular filtration rate/1.73 sq M.predicted [Volume Rate/Area] in Serum, Plasma or Blood by Creatinine-based formula (CKD-EPI) 12/14/2023 06:41:00 47 Below low normal >=60 (mL/min) Final eGFR is calculated based on the CKD-EPI 2020 equation SODIUM 12/14/2023 06:41:00 135 135-146 (m mol/L) Final Potassium 12/14/2023 06:41:00 3.9 3.5-5.1 (m mol/L) Final Cl 12/14/2023 06:41:00 100 98-107 (mm ol/L) Final CO2 12/14/2023 06:41:00 23 22-32 (mmo l/L) Final Anion gap 12/14/2023 06:41:00 12 7-15 (mmol /L) Final Glucose 12/14/2023 06:41:00 204 Above high normal 70 -120 (mg/dL) Final Albumin 12/14/2023 06:41:00 3.1 Below low normal 3.8 -5.0 (g/dL) Final AST (Aspartate aminotransferase) 12/14/2023 06:41:00 28 10-35 (U/L) Fin al Alk Phos 12/14/2023 06:41:00 121 35-130 (U/ L) Final Bilirubin, Total 12/14/2023 06:41:00 0.8 <=1 .2 (mg/dL) Final Calcium 12/14/2023 06:41:00 7.4 Below low normal 8.4 -10.2 (mg/dL) Final Protein 12/14/2023 06:41:00 6.1 6.0-8.3 (g /dL) Final ALT (Alanine aminotransferase) 12/14/2023 06:41:00 11 10-35 (U/L) Colin lee Performing Location LABORATORY [facility] [place] - [address] [facility] [address]
--- OUTSIDE RECORDS SUMMARY | 2024-01-29 21:32 | External Medical Summary ---
Author Name Unknown Address Unknown Organization K01:LABORATORY [facility] [place] - [address] [place] [address] Laboratory Report Ordering Provider Test Date Status PHOEBE VILLARREALROSA MARIA 12/18/2023 07:28:00 Final Observation Date Value Abnormality Reference (Units ) Status BUN 12/18/2023 07:28:00 35 Above high normal 6-20 (mg/dL) Final Creatinine 12/18/2023 07:28:00 1.8 Above high normal 0.5-1.0 (mg/dL) Final Glomerular filtration rate/1.73 sq M.predicted [Volume Rate/Area] in Serum, Plasma or Blood by Creatinine-based formula (CKD-EPI) 12/18/2023 07:28:00 33 Below low normal >=60 (mL/min) Final eGFR is calculated based on the CKD-EPI 2020 equation SODIUM 12/18/2023 07:28:00 140 135-146 (m mol/L) Final Potassium 12/18/2023 07:28:00 3.7 3.5-5.1 (m mol/L) Final Cl 12/18/2023 07:28:00 96 Below low normal 98- 107 (mmol/L) Final CO2 12/18/2023 07:28:00 29 22-32 (mmo l/L) Final Anion gap 12/18/2023 07:28:00 15 7-15 (mmol /L) Final Glucose 12/18/2023 07:28:00 225 Above high normal 70 -120 (mg/dL) Final Albumin 12/18/2023 07:28:00 3.4 Below low normal 3.8 -5.0 (g/dL) Final AST (Aspartate aminotransferase) 12/18/2023 07:28:00 81 Above high normal 10-35 (U/L) Final Alk Phos 12/18/2023 07:28:00 108 35-130 (U/ L) Final Bilirubin, Total 12/18/2023 07:28:00 0.7 <=1 .2 (mg/dL) Final Calcium 12/18/2023 07:28:00 8.2 Below low normal 8.4 -10.2 (mg/dL) Final Protein 12/18/2023 07:28:00 6.5 6.0-8.3 (g /dL) Final ALT (Alanine aminotransferase) 12/18/2023 07:28:00 37 Above high normal 10-35 (U/L) Final Performing Location LABORATORY [facility] [place] - [address] [facility] [address]
--- OUTSIDE RECORDS SUMMARY | 2024-01-29 21:32 | External Medical Summary ---
Author Name Unknown Address Unknown Organization : Laboratory Report Ordering Provider Test Date Status SONIA VILLARREAL 12/16/2023 08:14:00 Final Observation Date Value Abnormality Reference (Units ) Status Performing Location
--- OUTSIDE RECORDS SUMMARY | 2024-01-29 21:32 | External Medical Summary ---
Author Name Unknown Address Unknown Organization : Laboratory Report Ordering Provider Test Date Status SAMI HACKETT 12/17/2023 06:48:22 Final Observation Date Value Abnormality Reference (Units ) Status Glucose Point of Care 12/17/2023 06:48:22 113 70-120 (mg/dL) Final Performing Location
--- OUTSIDE RECORDS SUMMARY | 2024-01-29 21:32 | External Medical Summary ---
Author Name Unknown Address Unknown Organization K01:LABORATORY [facility] [place] - [facility] [address] [facility] [address] Laboratory Report Ordering Provider Test Date Status SONIA VILLARREAL 12/14/2023 06:41:00 Final Observation Date Value Abnormality Reference (Units ) Status WBC, Total 12/14/2023 06:41:00 0.85 Below lower panic limits 4.00-10.80 (K/uL) Final RBC 12/14/2023 06:41:00 2.71 3.85-5.15 (M/uL) Final Hemoglobin 12/14/2023 06:41:00 7.9 Below low normal 12.0-15.3 (g/dL) Final HCT 12/14/2023 06:41:00 24.0 Below low normal 36.0-45.2 (%) Final MCV 12/14/2023 06:41:00 88.6 81.5-97.5 (fL) Final MCH 12/14/2023 06:41:00 29.2 27.0-34.0 (pg) Final MCHC 12/14/2023 06:41:00 32.9 32.0-36.0 (g/dL) Final RDW 12/14/2023 06:41:00 18.8 11.5-15.5 (%) Final Platelets 12/14/2023 06:41:00 28 Below low normal 140-400 (K/uL) Final MPV 12/14/2023 06:41:00 11.5 6.6-11.1 (fL) Final Nucleated erythrocytes/100 leukocytes [Ratio] in Blood by Automated count 12/14/2023 06:41:00 0 <=0 (/100 WBCs) Final Performing Location LABORATORY [facility] [place] - [address] [place] [address]
--- OUTSIDE RECORDS SUMMARY | 2024-01-29 21:32 | External Medical Summary ---
Author Name Unknown Address Unknown Organization K01:LAB[facility]ORY [facility] [place] - [facility] [address] [facility] [address] Laboratory Report Ordering Provider Test Date Status SIMON ROCHEURSZULA 12/17/2023 22:51:00 Final Observation Date Value Abnormality Reference (Units ) Status BUN 12/17/2023 22:51:00 36 Above high normal 6-20 (mg/dL) Final Creatinine 12/17/2023 22:51:00 1.8 Above high normal 0.5-1.0 (mg/dL) Final Glomerular filtration rate/1.73 sq M.predicted [Volume Rate/Area] in Serum, Plasma or Blood by Creatinine-based formula (CKD-EPI) 12/17/2023 22:51:00 32 Below low normal >=60 (mL/min) Final eGFR is calculated based on the CKD-EPI 2020 equation SODIUM 12/17/2023 22:51:00 137 135-146 (m mol/L) Final Potassium 12/17/2023 22:51:00 3.0 Below low normal 3.5 -5.1 (mmol/L) Final Cl 12/17/2023 22:51:00 95 Below low normal 98- 107 (mmol/L) Final CO2 12/17/2023 22:51:00 27 22-32 (mmo l/L) Final Anion gap 12/17/2023 22:51:00 15 7-15 (mmol /L) Final Glucose 12/17/2023 22:51:00 279 Above high normal 70 -120 (mg/dL) Final Calcium 12/17/2023 22:51:00 8.1 Below low normal 8.4 -10.2 (mg/dL) Final Performing Location LABORATORY [facility] [place] - [address] [place] [address]
--- OUTSIDE RECORDS SUMMARY | 2024-01-29 21:32 | External Medical Summary ---
Author Name Unknown Address Unknown Organization K01:LABORATORY [facility] - [address] [place] [id number] Laboratory Report Ordering Provider Test Date Status SONIA VILLARREAL 12/16/2023 08:14:00 Final Observation Date Value Abnormality Reference (Units ) Status Phosphate 12/16/2023 08:14:00 3.6 2.5-4.8 (m g/dL) Final Performing Location LAB[facility] - [address] [place] [id number]
--- OUTSIDE RECORDS SUMMARY | 2024-01-29 21:32 | External Medical Summary ---
Author Name Unknown Address Unknown Organization K01:[place] [facility] [place] [address] [place] [address] Laboratory Report Ordering Provider Test Date Status PHOEBE VILLARREALROSA MARIA 12/16/2023 08:14:00 Final Observation Date Value Abnormality Reference (Units ) Status BUN 12/16/2023 08:14:00 33 Above high normal 6-20 (mg/dL) Final Creatinine 12/16/2023 08:14:00 1.9 Above high normal 0.5-1.0 (mg/dL) Final Glomerular filtration rate/1.73 sq M.predicted [Volume Rate/Area] in Serum, Plasma or Blood by Creatinine-based formula (CKD-EPI) 12/16/2023 08:14:00 30 Below low normal >=60 (mL/min) Final eGFR is calculated based on the CKD-EPI 2020 equation SODIUM 12/16/2023 08:14:00 137 135-146 (m mol/L) Final Potassium 12/16/2023 08:14:00 3.1 Below low normal 3.5 -5.1 (mmol/L) Final Cl 12/16/2023 08:14:00 95 Below low normal 98- 107 (mmol/L) Final CO2 12/16/2023 08:14:00 27 22-32 (mmo l/L) Final Anion gap 12/16/2023 08:14:00 15 7-15 (mmol /L) Final Glucose 12/16/2023 08:14:00 188 Above high normal 70 -120 (mg/dL) Final Albumin 12/16/2023 08:14:00 3.2 Below low normal 3.8 -5.0 (g/dL) Final AST (Aspartate aminotransferase) 12/16/2023 08:14:00 55 Above high normal 10-35 (U/L) Final Alk Phos 12/16/2023 08:14:00 113 35-130 (U/ L) Final Bilirubin, Total 12/16/2023 08:14:00 1.0 <=1 .2 (mg/dL) Final Calcium 12/16/2023 08:14:00 8.0 Below low normal 8.4 -10.2 (mg/dL) Final Protein 12/16/2023 08:14:00 6.4 6.0-8.3 (g /dL) Final ALT (Alanine aminotransferase) 12/16/2023 08:14:00 16 10-35 (U/L) Colin lee Performing Location [facility] [place] [address] [facility] [address]
--- OUTSIDE RECORDS SUMMARY | 2024-01-29 21:32 | External Medical Summary ---
Author Name Unknown Address Unknown Organization K01:LABORATORY C - [address] [facility] [address] Laboratory Report Ordering Provider Test Date Status CHERELLEKATINAPHUONGROSA MARIA 12/17/2023 07:33:00 Final Observation Date Value Abnormality Reference (Units ) Status SYNC LEUKOCYTES IN BLOOD BY AUTOMATED COUNT 12/17/2023 07:33:00 0.92 Below lower panic limits 4.00-10.80 (K/uL) Final Neutrophils/100 leukocytes in Blood by Manual count 12/17/2023 07:33:00 1.0 Below low normal 40.0-75.0 (%) Final Lymphocytes/100 leukocytes in Blood by Manual count 12/17/2023 07:33:00 91.0 Above high normal 18.0-42.0 (%) Final Monocytes/100 leukocytes in Blood by Manual count 12/17/2023 07:33:00 8.0 1.0-11.0 (%) Final Neutrophils [#/volume] in Blood by Manual count 12/17/2023 07:33:00 0.01 Below low normal 1.80-7.70 (K/uL) Final Lymphocytes [#/volume] in Blood by Manual count 12/17/2023 07:33:00 0.84 Below low normal 1.00-4.80 (K/uL) Final Monocytes [#/volume] in Blood by Manual count 12/17/2023 07:33:00 0.07 0.00-1.10 (K/uL) Final Performing Location [facility] - [address] [facility] [address]
--- OUTSIDE RECORDS SUMMARY | 2024-01-29 21:32 | External Medical Summary ---
Author Name Unknown Address Unknown Organization : Laboratory Report Ordering Provider Test Date Status RAMIN HACKETT 12/14/2023 16:49:08 Final Observation Date Value Abnormality Reference (Units ) Status Glucose Point of Care 12/14/2023 16:49:08 194 Above high normal 70-120 (mg/dL) Final Performing Location
--- OUTSIDE RECORDS SUMMARY | 2024-01-29 21:32 | External Medical Summary ---
Author Name Unknown Address Unknown Organization : Laboratory Report Ordering Provider Test Date Status RAMIN HACKETT 12/15/2023 16:15:25 Final Observation Date Value Abnormality Reference (Units ) Status Glucose Point of Care 12/15/2023 16:15:25 197 Above high normal 70-120 (mg/dL) Final Performing Location
--- OUTSIDE RECORDS SUMMARY | 2024-01-29 21:32 | External Medical Summary ---
Author Name Unknown Address Unknown Organization : Laboratory Report Ordering Provider Test Date Status RAMIN HACKETT 12/14/2023 07:00:36 Final Observation Date Value Abnormality Reference (Units ) Status Glucose Point of Care 12/14/2023 07:00:36 186 Above high normal 70-120 (mg/dL) Final Performing Location
--- OUTSIDE RECORDS SUMMARY | 2024-01-29 21:32 | External Medical Summary ---
Author Name Unknown Address Unknown Organization : Laboratory Report Ordering Provider Test Date Status RAMIN HACKETT 12/16/2023 11:38:53 Final Observation Date Value Abnormality Reference (Units ) Status Glucose Point of Care 12/16/2023 11:38:53 283 Above high normal 70-120 (mg/dL) Final Performing Location
--- OUTSIDE RECORDS SUMMARY | 2024-01-29 21:32 | External Medical Summary ---
Author Name Unknown Address Unknown Organization [id number]:[facility] [place] [facility] [place] [address] [place] [address] Laboratory Report Ordering Provider Test Date Status SONIA VILLARREAL 12/16/2023 08:13:00 Final Observation Date Value Abnormality Reference (Units ) Status ABO 12/16/2023 08:13:00 O Final RH 12/16/2023 08:13:00 Positive Final RED BLOOD CELL ANTIBODY SCREEN 12/16/2023 08:13:00 Negative Final SPECIMEN EXPIRATION DATE 12/16/2023 08:13:00 12/19/2023 23:59 Final Performing Location [facility] [place] [address] [place] [address]
--- OUTSIDE RECORDS SUMMARY | 2024-01-29 21:32 | External Medical Summary ---
Author Name Unknown Address Unknown Organization : Laboratory Report Ordering Provider Test Date Status SAMI HACKETT 12/18/2023 16:19:39 Final Observation Date Value Abnormality Reference (Units ) Status Glucose Point of Care 12/18/2023 16:19:39 182 Above high normal 70-120 (mg/dL) Final Performing Location
--- OUTSIDE RECORDS SUMMARY | 2024-01-29 21:32 | External Medical Summary ---
Author Name Unknown Address Unknown Organization : Laboratory Report Ordering Provider Test Date Status SAMI HACKETT 12/17/2023 11:14:22 Final Observation Date Value Abnormality Reference (Units ) Status Glucose Point of Care 12/17/2023 11:14:22 222 Above high normal 70-120 (mg/dL) Final Performing Location
--- OUTSIDE RECORDS SUMMARY | 2024-01-29 21:32 | External Medical Summary ---
Author Name Unknown Address Unknown Organization : Laboratory Report Ordering Provider Test Date Status RAMIN HACKETT 12/14/2023 10:40:56 Final Observation Date Value Abnormality Reference (Units ) Status Glucose Point of Care 12/14/2023 10:40:56 204 Above high normal 70-120 (mg/dL) Final Performing Location
--- OUTSIDE RECORDS SUMMARY | 2024-01-29 21:32 | External Medical Summary ---
Author Name Unknown Address Unknown Organization : Laboratory Report Ordering Provider Test Date Status RAMIN HACKETT 12/16/2023 21:51:27 Final Observation Date Value Abnormality Reference (Units ) Status Glucose Point of Care 12/16/2023 21:51:27 246 Above high normal 70-120 (mg/dL) Final Performing Location
--- OUTSIDE RECORDS SUMMARY | 2024-01-29 21:32 | External Medical Summary ---
Author Name Unknown Address Unknown Organization K01[place] [facility] [place] [address] [facility] [address] Laboratory Report Ordering Provider Test Date Status DASHA STYLES 12/15/2023 09:53:00 Final Observation Date Value Abnormality Reference (Units ) Status Body temperature 12/15/2023 09:53:00 37.0 (C) Final pH of Venous blood 12/15/2023 09:53:00 7.404 7.320-7.430 (units) Final Carbon dioxide [Partial pressure] in Venous blood 12/15/2023 09:53:00 42.4 40.0-60.0 (mmHg) Final Oxygen [Partial pressure] in Venous blood 12/15/2023 09:53:00 36.3 25.0-50.0 (mmHg) Final Base excess, Capillary 12/15/2023 09:53:00 1.6 -2.0-2.0 (mmol/L) Final Hemoglobin [Mass/volume] in Blood by Oximetry 12/15/2023 09:53:00 8.1 Below low normal 12.0-15.3 (g/dL) Final Oxyhemoglobin, Venous (FO2HB) 12/15/2023 09:53:00 64.0 40.0-85.0 (% total Hgb) Final Carboxyhemoglobin 12/15/2023 09:53:00 1.5 <=1.5 (% total Hgb) Final Smokers: 0-9.0 % Methemoglobin 12/15/2023 09:53:00 0.9 <=1.5 (% total Hgb) Final Deoxyhemoglobin/Hemoglobin.t otal in Venous blood 12/15/2023 09:53:00 33.6 (% total Hgb) Alexa l Oxygen content in Venous blood 12/15/2023 09:53:00 7.3 7.0-18.0 (%vol) Final Bicarbonate, Venous, POC (i-STAT) 12/15/2023 09:53:00 25.9 23.0-31.0 (mmol/L) Fi nal Performing Location [facility] [place] [address] [facility] [address]
--- OUTSIDE RECORDS SUMMARY | 2024-01-29 21:32 | External Medical Summary ---
Author Name Unknown Address Unknown Organization K01:[place] [facility] [place] [address] [place] [address] Laboratory Report Ordering Provider Test Date Status SILAS ROCHE 12/14/2023 06:41:00 Final Observation Date Value Abnormality Reference (Units ) Status Troponin T 12/14/2023 06:41:00 86 Above high normal < =14 (ng/L) Final Performing Location LABORATORY [facility] - [address] [place] [address]
--- OUTSIDE RECORDS SUMMARY | 2024-01-29 21:32 | External Medical Summary ---
Author Name Unknown Address Unknown Organization K01:[place] [facility] [place] [address] [facility] [address] Laboratory Report Ordering Provider Test Date Status SONIA VILLARREAL 12/15/2023 09:53:00 Final Observation Date Value Abnormality Reference (Units ) Status WBC, Total 12/15/2023 09:53:00 0.85 Below lower panic limits 4.00-10.80 (K/uL) Final RBC 12/15/2023 09:53:00 2.73 3.85-5.15 (M/uL) Final Hemoglobin 12/15/2023 09:53:00 8.1 Below low normal 12.0-15.3 (g/dL) Final HCT 12/15/2023 09:53:00 24.1 Below low normal 36.0-45.2 (%) Final MCV 12/15/2023 09:53:00 88.3 81.5-97.5 (fL) Final MCH 12/15/2023 09:53:00 29.7 27.0-34.0 (pg) Final MCHC 12/15/2023 09:53:00 33.6 32.0-36.0 (g/dL) Final RDW 12/15/2023 09:53:00 18.5 11.5-15.5 (%) Final Platelets 12/15/2023 09:53:00 31 Below low normal 140-400 (K/uL) Final MPV 12/15/2023 09:53:00 11.5 6.6-11.1 (fL) Final Nucleated erythrocytes/100 leukocytes [Ratio] in Blood by Automated count 12/15/2023 09:53:00 0 <=0 (/100 WBCs) Final Performing Location [facility] [facility] [place] [address] [place] [address]
--- OUTSIDE RECORDS SUMMARY | 2024-01-29 21:32 | External Medical Summary ---
Author Name Unknown Address Unknown Organization K01:[facility] - [address] [facility] [address] Laboratory Report Ordering Provider Test Date Status SOINA VILLARREAL 12/18/2023 07:28:00 Final Observation Date Value Abnormality Reference (Units ) Status SYNC LEUKOCYTES IN BLOOD BY AUTOMATED COUNT 12/18/2023 07:28:00 0.87 Below lower panic limits 4.00-10.80 (K/uL) Final Lymphocytes/100 leukocytes in Blood by Manual count 12/18/2023 07:28:00 99.0 Above high normal 18.0-42.0 (%) Final Monocytes/100 leukocytes in Blood by Manual count 12/18/2023 07:28:00 1.0 1.0-11.0 (%) Final Lymphocytes [#/volume] in Blood by Manual count 12/18/2023 07:28:00 0.86 Below low normal 1.00-4.80 (K/uL) Final Monocytes [#/volume] in Blood by Manual count 12/18/2023 07:28:00 0.01 0.00-1.10 (K/uL) Final Performing Location [facility] - [address] [place] [address]
--- OUTSIDE RECORDS SUMMARY | 2024-01-29 21:32 | External Medical Summary ---
Author Name Unknown Address Unknown Organization K01[place] [facility] [place] [address] [place] [address] Laboratory Report Ordering Provider Test Date Status SILAS ROCHE 12/14/2023 11:07:00 Final Exclude Heart Failure: <300 pg/mL
Diagnose Heart Failure:
Age <50 yr: >450 pg/mL
50-75 yr: >900 pg/mL
>75 yr: >1800 pg/mL
GFR is 30-59 mL/min: >1200 pg/mL or Age- adjusted values
GFR <30 mL/min: do not use, not reliable

Prognostic threshold: 1000 pg/mL Observation Date Value Abnormality Reference (Units ) Status BNP, Pro-hormone 12/14/2023 11:07:00 1297 Above high no rmal <300 (pg/mL) Final Performing Location [place] [place] [address] [place] [address]
--- OUTSIDE RECORDS SUMMARY | 2024-01-29 21:32 | External Medical Summary ---
Author Name Unknown Address Unknown Organization : Laboratory Report Ordering Provider Test Date Status RAMIN HACKETT 12/15/2023 07:11:54 Final Observation Date Value Abnormality Reference (Units ) Status Glucose Point of Care 12/15/2023 07:11:54 193 Above high normal 70-120 (mg/dL) Final Performing Location
--- OUTSIDE RECORDS SUMMARY | 2024-01-29 21:32 | External Medical Summary ---
Author Name Unknown Address Unknown Organization K01:[facility] [place] [address] [facility] [address] Laboratory Report Ordering Provider Test Date Status SIMON ROCHEURSZULA 12/17/2023 16:45:54 Final ADMITTED patient Observation Date Value Abnormality Reference (Units ) Status Adenovirus DNA [Presence] in Nasopharynx by WILLIAM with non-probe detection 12/17/2023 16:45:54 Negative Negative Final Human coronavirus 229E RNA [Presence] in Nasopharynx by WILLIAM with non-probe detection 12/17/2023 16:45:54 Negative Negative Final Human coronavirus HKU1 RNA [Presence] in Nasopharynx by WILLIAM with non-probe detection 12/17/2023 16:45:54 Negative Negative Final Human coronavirus NL63 RNA [Presence] in Nasopharynx by WILLIAM with non-probe detection 12/17/2023 16:45:54 Negative Negative Final Human coronavirus OC43 RNA [Presence] in Nasopharynx by WILLIAM with non-probe detection 12/17/2023 16:45:54 Negative Negative Final SARS-CoV-2 (COVID-19) RNA [Presence] in Nasopharynx by WILLIAM with non-probe detection 12/17/2023 16:45:54 Negative Negative Final Human metapneumovirus RNA [Presence] in Nasopharynx by WILLIAM with non-probe detection 12/17/2023 16:45:54 Negative Negative Final Rhinovirus+Enterovirus RNA [Presence] in Nasopharynx by WILLIAM with non-probe detection 12/17/2023 16:45:54 Negative Negative Final Influenza virus A RNA [Presence] in Nasopharynx by WILLIAM with non-probe detection 12/17/2023 16:45:54 Negative Negative Final Influenza virus B RNA [Presence] in Nasopharynx by WILLIAM with non-probe detection 12/17/2023 16:45:54 Negative Negative Final Parainfluenza virus 1 RNA [Presence] in Nasopharynx by WILLIAM with non-probe detection 12/17/2023 16:45:54 Negative Negative Final Parainfluenza virus 2 RNA [Presence] in Nasopharynx by WILLIAM with non-probe detection 12/17/2023 16:45:54 Negative Negative Final Parainfluenza virus 3 RNA [Presence] in Nasopharynx by WILLIAM with non-probe detection 12/17/2023 16:45:54 Negative Negative Final Parainfluenza virus 4 RNA [Presence] in Nasopharynx by WILLIAM with non-probe detection 12/17/2023 16:45:54 Negative Negative Final Respiratory syncytial virus RNA [Presence] in Nasopharynx by WILLIAM with non-probe detection 12/17/2023 16:45:54 Negative Negative Final Bordetella pertussis.pertussis toxin promoter region [Presence] in Nasopharynx by WILLIAM with non-probe detection 12/17/2023 16:45:54 Negative Negative Final Chlamydophila pneumoniae DNA [Presence] in Nasopharynx by WILLIAM with non-probe detection 12/17/2023 16:45:54 Negative Negative Final Mycoplasma pneumoniae DNA [Presence] in Nasopharynx by WILLIAM with non-probe detection 12/17/2023 16:45:54 Negative Negative Final Bordetella parapertussis [id number] DNA [Presence] in Nasopharynx by WILLIAM with non-probe detection 12/17/2023 16:45:54 Negative Negative Final
The primers that detect Rhinovirus may cross react with some Enterorviruses. The validation of bronchial specimens, tracheal aspirates, and throats for this assay was developed and performance characteristics determined by [employer]. The validation of alternate specimen types has not been cleared or approved by the U.S. Food and Drug Administration (FDA). It has been determined that such clearance or approval is not necessary. Performing Location LAB[facility]ORY [facility] [place] - [address] [facility] [address]
--- OUTSIDE RECORDS SUMMARY | 2024-01-29 21:32 | External Medical Summary ---
Author Name Unknown Address Unknown Organization K01:LABORATORY [facility] - [address] [facility] [address] Laboratory Report Ordering Provider Test Date Status SONIA VILLARREAL 12/16/2023 08:14:00 Final Observation Date Value Abnormality Reference (Units ) Status SYNC LEUKOCYTES IN BLOOD BY AUTOMATED COUNT 12/16/2023 08:14:00 0.94 Below lower panic limits 4.00-10.80 (K/uL) Final Lymphocytes/100 leukocytes in Blood by Manual count 12/16/2023 08:14:00 92.0 Above high normal 18.0-42.0 (%) Final Monocytes/100 leukocytes in Blood by Manual count 12/16/2023 08:14:00 3.0 1.0-11.0 (%) Final Blasts/100 leukocytes in Blood by Manual count 12/16/2023 08:14:00 5.0 Above high normal <=0.0 (%) Final Lymphocytes [#/volume] in Blood by Manual count 12/16/2023 08:14:00 0.86 Below low normal 1.00-4.80 (K/uL) Final Monocytes [#/volume] in Blood by Manual count 12/16/2023 08:14:00 0.03 0.00-1.10 (K/uL) Final Blasts [#/volume] in Blood by Manual count 12/16/2023 08:14:00 0.05 Above high normal <=0.00 (K/uL) Final Performing Location [facility] - [address] [facility] [address]
--- OUTSIDE RECORDS SUMMARY | 2024-01-29 21:32 | External Medical Summary ---
Author Name Unknown Address Unknown Organization : Laboratory Report Ordering Provider Test Date Status SAMI HACKETT 12/18/2023 11:03:29 Final Observation Date Value Abnormality Reference (Units ) Status Glucose Point of Care 12/18/2023 11:03:29 255 Above high normal 70-120 (mg/dL) Final Performing Location
--- OUTSIDE RECORDS SUMMARY | 2024-01-29 21:32 | External Medical Summary ---
Author Name Unknown Address Unknown Organization : Laboratory Report Ordering Provider Test Date Status RAMIN HACKETT 12/16/2023 06:50:34 Final Observation Date Value Abnormality Reference (Units ) Status Glucose Point of Care 12/16/2023 06:50:34 186 Above high normal 70-120 (mg/dL) Final Performing Location
--- OUTSIDE RECORDS SUMMARY | 2024-01-29 21:32 | External Medical Summary ---
Author Name Unknown Address Unknown Organization K01:[place] [facility] [place] [address] [place] [address] Laboratory Report Ordering Provider Test Date Status CHERELLEPHOEBE HERNANDEZROSA MARIA 12/15/2023 09:53:00 Final Observation Date Value Abnormality Reference (Units ) Status BUN 12/15/2023 09:53:00 29 Above high normal 6-20 (mg/dL) Final Creatinine 12/15/2023 09:53:00 1.5 Above high normal 0.5-1.0 (mg/dL) Final Glomerular filtration rate/1.73 sq M.predicted [Volume Rate/Area] in Serum, Plasma or Blood by Creatinine-based formula (CKD-EPI) 12/15/2023 09:53:00 39 Below low normal >=60 (mL/min) Final eGFR is calculated based on the CKD-EPI 2020 equation SODIUM 12/15/2023 09:53:00 134 Below low normal 135 -146 (mmol/L) Final Potassium 12/15/2023 09:53:00 3.5 3.5-5.1 (m mol/L) Final Cl 12/15/2023 09:53:00 99 98-107 (mm ol/L) Final CO2 12/15/2023 09:53:00 20 Below low normal 22- 32 (mmol/L) Final Anion gap 12/15/2023 09:53:00 15 7-15 (mmol /L) Final Glucose 12/15/2023 09:53:00 233 Above high normal 70 -120 (mg/dL) Final Albumin 12/15/2023 09:53:00 2.8 Below low normal 3.8 -5.0 (g/dL) Final AST (Aspartate aminotransferase) 12/15/2023 09:53:00 37 Above high normal 10-35 (U/L) Final Result may be falsely elevat ed due to hemolysis. Alk Phos 12/15/2023 09:53:00 113 35-130 (U/ L) Final Bilirubin, Total 12/15/2023 09:53:00 0.8 <=1 .2 (mg/dL) Final Calcium 12/15/2023 09:53:00 7.7 Below low normal 8.4 -10.2 (mg/dL) Final Protein 12/15/2023 09:53:00 6.1 6.0-8.3 (g /dL) Final ALT (Alanine aminotransferase) 12/15/2023 09:53:00 12 10-35 (U/L) Colin lee Performing Location [facility] [place] [address] [facility] [address]
--- OUTSIDE RECORDS SUMMARY | 2024-01-29 21:32 | External Medical Summary ---
Author Name Unknown Address Unknown Organization K01:[facility] [place] [address] [facility] [address] Laboratory Report Ordering Provider Test Date Status DASHA STYLES 12/16/2023 22:42:00 Final Observation Date Value Abnormality Reference (Units ) Status BUN 12/16/2023 22:42:00 34 Above high normal 6-20 (mg/dL) Final Creatinine 12/16/2023 22:42:00 1.7 Above high normal 0.5-1.0 (mg/dL) Final Glomerular filtration rate/1.73 sq M.predicted [Volume Rate/Area] in Serum, Plasma or Blood by Creatinine-based formula (CKD-EPI) 12/16/2023 22:42:00 35 Below low normal >=60 (mL/min) Final eGFR is calculated based on the CKD-EPI 2020 equation SODIUM 12/16/2023 22:42:00 135 135-146 (m mol/L) Final Potassium 12/16/2023 22:42:00 4.4 3.5-5.1 (m mol/L) Final Cl 12/16/2023 22:42:00 96 Below low normal 98- 107 (mmol/L) Final CO2 12/16/2023 22:42:00 27 22-32 (mmo l/L) Final Anion gap 12/16/2023 22:42:00 12 7-15 (mmol /L) Final Glucose 12/16/2023 22:42:00 248 Above high normal 70 -120 (mg/dL) Final Calcium 12/16/2023 22:42:00 8.1 Below low normal 8.4 -10.2 (mg/dL) Final Performing Location LABORATORY [facility] [place] - [address] [place] [address]
--- OUTSIDE RECORDS SUMMARY | 2024-01-29 21:32 | External Medical Summary ---
Author Name Unknown Address Unknown Organization K01:[place] [facility] [place] [address] [place] [address] [place] [address] Laboratory Report Ordering Provider Test Date Status PHOEBE VILLARREALROSA MARIA 12/17/2023 07:33:00 Final Observation Date Value Abnormality Reference (Units ) Status BUN 12/17/2023 07:33:00 33 Above high normal 6-20 (mg/dL) Final Creatinine 12/17/2023 07:33:00 1.7 Above high normal 0.5-1.0 (mg/dL) Final Glomerular filtration rate/1.73 sq M.predicted [Volume Rate/Area] in Serum, Plasma or Blood by Creatinine-based formula (CKD-EPI) 12/17/2023 07:33:00 33 Below low normal >=60 (mL/min) Final eGFR is calculated based on the CKD-EPI 2020 equation SODIUM 12/17/2023 07:33:00 139 135-146 (m mol/L) Final Potassium 12/17/2023 07:33:00 3.5 3.5-5.1 (m mol/L) Final Cl 12/17/2023 07:33:00 99 98-107 (mm ol/L) Final CO2 12/17/2023 07:33:00 28 22-32 (mmo l/L) Final Anion gap 12/17/2023 07:33:00 12 7-15 (mmol /L) Final Glucose 12/17/2023 07:33:00 118 70-120 (mg /dL) Final Albumin 12/17/2023 07:33:00 3.3 Below low normal 3.8 -5.0 (g/dL) Final AST (Aspartate aminotransferase) 12/17/2023 07:33:00 73 Above high normal 10-35 (U/L) Final Alk Phos 12/17/2023 07:33:00 105 35-130 (U/ L) Final Bilirubin, Total 12/17/2023 07:33:00 0.8 <=1 .2 (mg/dL) Final Calcium 12/17/2023 07:33:00 8.2 Below low normal 8.4 -10.2 (mg/dL) Final Protein 12/17/2023 07:33:00 6.3 6.0-8.3 (g /dL) Final ALT (Alanine aminotransferase) 12/17/2023 07:33:00 25 10-35 (U/L) Colin lee Performing Location [facility] [place] [address] [facility] [address]
--- OUTSIDE RECORDS SUMMARY | 2024-01-29 21:32 | External Medical Summary ---
Author Name Unknown Address Unknown Organization : Laboratory Report Ordering Provider Test Date Status SAMI HACKETT 12/17/2023 16:15:09 Final Observation Date Value Abnormality Reference (Units ) Status Glucose Point of Care 12/17/2023 16:15:09 175 Above high normal 70-120 (mg/dL) Final Performing Location
--- OUTSIDE RECORDS SUMMARY | 2024-01-29 21:32 | External Medical Summary ---
Author Name Unknown Address Unknown Organization : Laboratory Report Ordering Provider Test Date Status RAMIN HACKETT 12/15/2023 11:16:09 Final Observation Date Value Abnormality Reference (Units ) Status Glucose Point of Care 12/15/2023 11:16:09 226 Above high normal 70-120 (mg/dL) Final Performing Location
--- OUTSIDE RECORDS SUMMARY | 2024-01-29 21:32 | External Medical Summary ---
Author Name Unknown Address Unknown Organization K01:[place] [facility] [place] [address] [facility] [address] Laboratory Report Ordering Provider Test Date Status SONIA VILLARREAL 12/16/2023 08:14:00 Final Observation Date Value Abnormality Reference (Units ) Status WBC, Total 12/16/2023 08:14:00 0.94 Below lower panic limits 4.00-10.80 (K/uL) Final RBC 12/16/2023 08:14:00 2.59 3.85-5.15 (M/uL) Final Hemoglobin 12/16/2023 08:14:00 7.8 Below low normal 12.0-15.3 (g/dL) Final HCT 12/16/2023 08:14:00 22.8 Below low normal 36.0-45.2 (%) Final MCV 12/16/2023 08:14:00 88.0 81.5-97.5 (fL) Final MCH 12/16/2023 08:14:00 30.1 27.0-34.0 (pg) Final MCHC 12/16/2023 08:14:00 34.2 32.0-36.0 (g/dL) Final RDW 12/16/2023 08:14:00 17.7 11.5-15.5 (%) Final Platelets 12/16/2023 08:14:00 31 Below low normal 140-400 (K/uL) Final MPV 12/16/2023 08:14:00 11.6 6.6-11.1 (fL) Final Nucleated erythrocytes/100 leukocytes [Ratio] in Blood by Automated count 12/16/2023 08:14:00 0 <=0 (/100 WBCs) Final Performing Location [place] [facility] [place] [address] [place] [address]
--- OUTSIDE RECORDS SUMMARY | 2024-01-29 21:32 | External Medical Summary ---
Author Name Unknown Address Unknown Organization K01:LABORATORY [facility] – [place] - [address] [place] [address] Laboratory Report Ordering Provider Test Date Status SILAS ROCHE 12/14/2023 11:07:00 Final Observation Date Value Abnormality Reference (Units ) Status Troponin T 12/14/2023 11:07:00 80 Above high normal < =14 (ng/L) Final Performing Location LABORATORY C - [address] [place] [address]
--- OUTSIDE RECORDS SUMMARY | 2024-01-29 21:32 | External Medical Summary ---
Author Name Unknown Address Unknown Organization K01:[facility]ATORY [facility] [place] - [address] [facility] [address] Laboratory Report Ordering Provider Test Date Status SONIA VILLARREAL 12/17/2023 07:33:00 Final Observation Date Value Abnormality Reference (Units ) Status WBC, Total 12/17/2023 07:33:00 0.92 Below lower panic limits 4.00-10.80 (K/uL) Final RBC 12/17/2023 07:33:00 2.41 3.85-5.15 (M/uL) Final Hemoglobin 12/17/2023 07:33:00 7.1 Below low normal 12.0-15.3 (g/dL) Final HCT 12/17/2023 07:33:00 21.2 Below low normal 36.0-45.2 (%) Final MCV 12/17/2023 07:33:00 88.0 81.5-97.5 (fL) Final MCH 12/17/2023 07:33:00 29.5 27.0-34.0 (pg) Final MCHC 12/17/2023 07:33:00 33.5 32.0-36.0 (g/dL) Final RDW 12/17/2023 07:33:00 17.2 11.5-15.5 (%) Final Platelets 12/17/2023 07:33:00 32 Below low normal 140-400 (K/uL) Final MPV 12/17/2023 07:33:00 10.1 6.6-11.1 (fL) Final Nucleated erythrocytes/100 leukocytes [Ratio] in Blood by Automated count 12/17/2023 07:33:00 0 <=0 (/100 WBCs) Final Performing Location LABORATORY [facility] [place] - [address] [place] [address]
--- OUTSIDE RECORDS SUMMARY | 2024-01-29 21:32 | External Medical Summary ---
Author Name Unknown Address Unknown Organization K01:[facility] - [address] [place] [address] Laboratory Report Ordering Provider Test Date Status SONIA VILLARREAL 12/17/2023 07:33:00 Final Observation Date Value Abnormality Reference (Units ) Status Phosphate 12/17/2023 07:33:00 3.5 2.5-4.8 (m g/dL) Final Performing Location [facility] - [address] [place] [address]
--- OUTSIDE RECORDS SUMMARY | 2024-01-29 21:32 | External Medical Summary ---
Author Name Unknown Address Unknown Organization K01:LAB[facility]ATORY [facility] - [address] [place] [address] Laboratory Report Ordering Provider Test Date Status SONIA VILLARREAL 12/14/2023 06:41:00 Final Observation Date Value Abnormality Reference (Units ) Status SYNC LEUKOCYTES IN BLOOD BY AUTOMATED COUNT 12/14/2023 06:41:00 0.85 Below lower panic limits 4.00-10.80 (K/uL) Final Lymphocytes/100 leukocytes in Blood by Manual count 12/14/2023 06:41:00 68.0 Above high normal 18.0-42.0 (%) Final Monocytes/100 leukocytes in Blood by Manual count 12/14/2023 06:41:00 22.0 Above high normal 1.0-11.0 (%) Final Blasts/100 leukocytes in Blood by Manual count 12/14/2023 06:41:00 10.0 Above high normal <=0.0 (%) Final Lymphocytes [#/volume] in Blood by Manual count 12/14/2023 06:41:00 0.58 Below low normal 1.00-4.80 (K/uL) Final Monocytes [#/volume] in Blood by Manual count 12/14/2023 06:41:00 0.19 0.00-1.10 (K/uL) Final Blasts [#/volume] in Blood by Manual count 12/14/2023 06:41:00 0.09 Above high normal <=0.00 (K/uL) Final Performing Location LAB[facility] - [address] [place] [address] [place] [address]
--- OUTSIDE RECORDS SUMMARY | 2024-01-29 21:32 | External Medical Summary ---
Author Name Unknown Address Unknown Organization : Laboratory Report Ordering Provider Test Date Status SAIM HACKETT 12/18/2023 06:54:22 Final Observation Date Value Abnormality Reference (Units ) Status Glucose Point of Care 12/18/2023 06:54:22 217 Above high normal 70-120 (mg/dL) Final Performing Location
--- OUTSIDE RECORDS SUMMARY | 2024-01-29 21:32 | External Medical Summary ---
Author Name Unknown Address Unknown Organization K01:LABORATORY [facility] [place] - [address] [place] [address] Laboratory Report Ordering Provider Test Date Status DASHA STYLES 12/15/2023 09:53:00 Final Exclude Heart Failure: <300 pg/mL
Diagnose Heart Failure:
Age <50 yr: >450 pg/mL
50-75 yr: >900 pg/mL
>75 yr: >1800 pg/mL
GFR is 30-59 mL/min: >1200 pg/mL or Age- adjusted values
GFR <30 mL/min: do not use, not reliable

Prognostic threshold: 1000 pg/mL Observation Date Value Abnormality Reference (Units ) Status BNP, Pro-hormone 12/15/2023 09:53:00 1199 Above high no rmal <300 (pg/mL) Final Performing Location LABORATORY [facility] [place] - [facility] [address] [place] [address]
--- OUTSIDE RECORDS SUMMARY | 2024-01-29 21:32 | External Medical Summary ---
Author Name Unknown Address Unknown Organization K01:[facility]ATORY [facility] - [address] [place] [address] Laboratory Report Ordering Provider Test Date Status SONIA VILLARREAL 12/18/2023 07:28:00 Final Observation Date Value Abnormality Reference (Units ) Status Phosphate 12/18/2023 07:28:00 3.6 2.5-4.8 (m g/dL) Final Performing Location [facility] - [address] [place] [address]
--- OUTSIDE RECORDS SUMMARY | 2024-01-29 21:32 | External Medical Summary ---
Author Name Unknown Address Unknown Organization : Laboratory Report Ordering Provider Test Date Status SAMI HACKETT 12/17/2023 21:24:21 Final Observation Date Value Abnormality Reference (Units ) Status Glucose Point of Care 12/17/2023 21:24:21 223 Above high normal 70-120 (mg/dL) Final Performing Location
--- OUTSIDE RECORDS SUMMARY | 2024-01-29 21:32 | External Medical Summary ---
Author Name Unknown Address Unknown Organization K01:[place] [facility] [place] [facility] [address] [facility] [address] Laboratory Report Ordering Provider Test Date Status SONIA VILLARREAL 12/19/2023 06:36:00 Final Observation Date Value Abnormality Reference (Units ) Status WBC, Total 12/19/2023 06:36:00 0.88 Below lower panic limits 4.00-10.80 (K/uL) Final RBC 12/19/2023 06:36:00 2.88 3.85-5.15 (M/uL) Final Hemoglobin 12/19/2023 06:36:00 8.6 Below low normal 12.0-15.3 (g/dL) Final HCT 12/19/2023 06:36:00 25.3 Below low normal 36.0-45.2 (%) Final MCV 12/19/2023 06:36:00 87.8 81.5-97.5 (fL) Final MCH 12/19/2023 06:36:00 29.9 27.0-34.0 (pg) Final MCHC 12/19/2023 06:36:00 34.0 32.0-36.0 (g/dL) Final RDW 12/19/2023 06:36:00 15.5 11.5-15.5 (%) Final Platelets 12/19/2023 06:36:00 27 Below low normal 140-400 (K/uL) Final MPV 12/19/2023 06:36:00 9.5 6.6-11.1 (fL) Final Nucleated erythrocytes/100 leukocytes [Ratio] in Blood by Automated count 12/19/2023 06:36:00 0 <=0 (/100 WBCs) Final Performing Location [place] [facility] [place] [address] [place] [address]
--- OUTSIDE RECORDS SUMMARY | 2024-01-29 21:33 | External Medical Summary ---
Author Name Unknown Address Unknown Organization : Laboratory Report Ordering Provider Test Date Status KENNY SON 12/12/2023 06:41:12 Final Observation Date Value Abnormality Reference (Units ) Status Glucose Point of Care 12/12/2023 06:41:12 163 Above high normal 70-120 (mg/dL) Final Performing Location
--- OUTSIDE RECORDS SUMMARY | 2024-01-29 21:33 | External Medical Summary ---
Author Name Unknown Address Unknown Organization K01:LABORATORY [facility] [place] [facility] - [address] [place] [address] Laboratory Report Ordering Provider Test Date Status SONIA VILLARREAL 12/13/2023 06:34:00 Final Observation Date Value Abnormality Reference (Units ) Status ABO 12/13/2023 06:34:00 O Final RH 12/13/2023 06:34:00 Positive Final RED BLOOD CELL ANTIBODY SCREEN 12/13/2023 06:34:00 Negative Final SPECIMEN EXPIRATION DATE 12/13/2023 06:34:00 12/16/2023 23:59 Final Performing Location LABORATORY [facility] [place] [facility] - [address] [place] [address]
--- OUTSIDE RECORDS SUMMARY | 2024-01-29 21:33 | External Medical Summary ---
Author Name Unknown Address Unknown Organization K01:LABORATORY [facility] [place] - [facility] [address] [place] [address] Laboratory Report Ordering Provider Test Date Status SONIA VILLARREAL 12/11/2023 07:02:00 Final Observation Date Value Abnormality Reference (Units ) Status WBC, Total 12/11/2023 07:02:00 0.80 Below lower panic limits 4.00-10.80 (K/uL) Final RBC 12/11/2023 07:02:00 2.52 3.85-5.15 (M/uL) Final Hemoglobin 12/11/2023 07:02:00 7.5 Below low normal 12.0-15.3 (g/dL) Final HCT 12/11/2023 07:02:00 21.7 Below low normal 36.0-45.2 (%) Final MCV 12/11/2023 07:02:00 86.1 81.5-97.5 (fL) Final MCH 12/11/2023 07:02:00 29.8 27.0-34.0 (pg) Final MCHC 12/11/2023 07:02:00 34.6 32.0-36.0 (g/dL) Final RDW 12/11/2023 07:02:00 18.5 11.5-15.5 (%) Final Platelets 12/11/2023 07:02:00 16 Below lower panic limits 140-400 (K/uL) Final MPV 12/11/2023 07:02:00 12.2 6.6-11.1 (fL) Final Nucleated erythrocytes/100 leukocytes [Ratio] in Blood by Automated count 12/11/2023 07:02:00 3 Above high normal <=0 (/100 WBCs) Final Performing Location LABORATORY [facility] [place] - [address] [place] [address]
--- OUTSIDE RECORDS SUMMARY | 2024-01-29 21:33 | External Medical Summary ---
Author Name Unknown Address Unknown Organization K01:LABORATORY [facility] [place] - [address] [place] [address] [place] [address] Laboratory Report Ordering Provider Test Date Status CHERELLEPHOEBE HERNANDEZROSA MARIA 12/12/2023 07:14:00 Final Observation Date Value Abnormality Reference (Units ) Status BUN 12/12/2023 07:14:00 26 Above high normal 6-20 (mg/dL) Final Creatinine 12/12/2023 07:14:00 1.4 Above high normal 0.5-1.0 (mg/dL) Final Glomerular filtration rate/1.73 sq M.predicted [Volume Rate/Area] in Serum, Plasma or Blood by Creatinine-based formula (CKD-EPI) 12/12/2023 07:14:00 44 Below low normal >=60 (mL/min) Final eGFR is calculated based on the CKD-EPI 2020 equation SODIUM 12/12/2023 07:14:00 136 135-146 (m mol/L) Final Potassium 12/12/2023 07:14:00 3.6 3.5-5.1 (m mol/L) Final Cl 12/12/2023 07:14:00 99 98-107 (mm ol/L) Final CO2 12/12/2023 07:14:00 21 Below low normal 22- 32 (mmol/L) Final Anion gap 12/12/2023 07:14:00 16 Above high normal 7- 15 (mmol/L) Final Glucose 12/12/2023 07:14:00 175 Above high normal 70 -120 (mg/dL) Final Albumin 12/12/2023 07:14:00 3.3 Below low normal 3.8 -5.0 (g/dL) Final AST (Aspartate aminotransferase) 12/12/2023 07:14:00 25 10-35 (U/L) Fin al Alk Phos 12/12/2023 07:14:00 113 35-130 (U/ L) Final Bilirubin, Total 12/12/2023 07:14:00 0.9 <=1 .2 (mg/dL) Final Calcium 12/12/2023 07:14:00 7.6 Below low normal 8.4 -10.2 (mg/dL) Final Protein 12/12/2023 07:14:00 6.5 6.0-8.3 (g /dL) Final ALT (Alanine aminotransferase) 12/12/2023 07:14:00 11 10-35 (U/L) Colin lee Performing Location LABORATORY [facility] [place] - [address] [facility] [address]
--- OUTSIDE RECORDS SUMMARY | 2024-01-29 21:33 | External Medical Summary ---
Author Name Unknown Address Unknown Organization K01:LABORATORY [facility] [place] - [address] [place] [address] Laboratory Report Ordering Provider Test Date Status SONIA VILLARREAL 12/11/2023 17:16:46 Final Observation Date Value Abnormality Reference (Units ) Status Methicillin resistant Staphylococcus aureus (MRSA) DNA [Presence] in Nose by WILLIAM with probe detection 12/11/2023 17:16:46 Negative Negative Final No Methicillin resistant Sta phylococcus aureus detected by PCR (amplified probe). Performing Location LABORATORY [facility] [place] - [address] [place] [address]
--- OUTSIDE RECORDS SUMMARY | 2024-01-29 21:33 | External Medical Summary ---
Author Name Unknown Address Unknown Organization K01:[place] [facility] [place] [address] [place] [address] Laboratory Report Ordering Provider Test Date Status SANJU SAHU 12/11/2023 23:07:41 Final Observation Date Value Abnormality Reference (Units ) Status Legionella pneumophila 1 Ag [Presence] in Urine 12/11/2023 23:07:41 Negative Negative Final Presumptive negative for L. pneumophila serogroup 1 antigens. A negative result does not rule out the possibility of Legionella infection due to other serogroups or species of Legionella. Performing Location LABOR[facility]ORY [facility] [place] [address] [facility] [address]
--- OUTSIDE RECORDS SUMMARY | 2024-01-29 21:33 | External Medical Summary ---
Author Name Unknown Address Unknown Organization : Laboratory Report Ordering Provider Test Date Status SANJU SAHU 12/12/2023 07:14:00 Final Observation Date Value Abnormality Reference (Units ) Status Galactomannan Ag [Units/volume] in Serum or Plasma by Immunoassay 12/12/2023 07:14:00 0.04 <0.50 Final Galactomannan Ag [Presence] in Serum or Plasma by Immunoassay 12/12/2023 07:14:00 Not Detected Not Detected Final A negative result does not e xclude invasive
aspergillosis. Follow-up testing may be
indicated for high-risk patients.
An Index <0.50 is considered to be negative.
An Index >=0.50 is considered to be positive.
A positive result for patients being treated with
piperacillin-tazobactam and other beta-lactam
antibiotics such as amoxicillin-clavulanate may be
a false positive due to cross reactivity and should
be viewed in conjunction with all clinical findings.
Positive results with this assay has also been reported
in patients infected with Penicillium marneffei and
Cryptococcus.

Test Performed at:
[facility]
[address]
[place] [address]
Elgin Redman M.D., Ph.D.,Director of Laboratories Performing Location
--- OUTSIDE RECORDS SUMMARY | 2024-01-29 21:33 | External Medical Summary ---
Author Name Unknown Address Unknown Organization : Laboratory Report Ordering Provider Test Date Status ELVIA DE DIOS 12/10/2023 11:28:37 Final Observation Date Value Abnormality Reference (Units ) Status Glucose Point of Care 12/10/2023 11:28:37 192 Above high normal 70-120 (mg/dL) Final Performing Location
--- OUTSIDE RECORDS SUMMARY | 2024-01-29 21:33 | External Medical Summary | Summary of Care ---
Author Name Unknown Organization [facility] Address [address] [place] [address] Phone [phone] Care Team Providers Care Range Operator Name Role Phone Ivonne French PA-C Primary Care Provider [phone] Reason for Visit * Auth/Cert Specialty Diagnoses / Procedures Referred By Lupis t Referred To Contact Referral ID Status Reason Start Date Expiration Date Visits Re quested Visits Authorized [id number] Encounter Details Date Type Department Care Team (Latest Contact Info) Description 12/10/2023 12:54 PM EST - 12/10/2023 11:59 PM EST Hospital Encounter Cardiac Studies [facility] [address], [place] [id number] Discharge Disposition: Home - Self Care Allergies Active Allergy Reactions Criticality Noted Date Comments Adhesive Tape 04/21/2016 Glue off the old style medical tape. documented as of this encounter (statuses as of 12/11/2023) Medications Medication Sig Dispensed Refills Start Date [...] 180 Tablet 1 05/25/2023 Suspended Additional Information NanoInk Delica Lancets 33G Use to test blood sugar three times daily E 11.9 300 Each 05/25/2023 Suspended Additional Information First Class EV ConversionsTouch Verio w/Device Kit Use up to 3 times a day E11.9 1 Kit 0 05/25/2023 Suspended Additional Information Pen [place] 32G X 4 MM Use as directed. [...] Hour (toPROL XL)Indications:Co ronary artery disease involving walker river coronary artery of walker river heart without angina pectoris Take 1.5 Tablets [...] as of this encounter (statuses as of 12/11/2023) Active Problems Problem Noted Date Diagnosed Date EBONY (acute kidney injury) 12/10/2023 Acute urinary [...] as of this encounter (statuses as of 12/11/2023) Resolved Problems Problem Noted Date Diagnosed Date [...] as of this encounter (statuses as of 12/11/2023) Immunizations Name Administration Dates Next Due COVID-19 [...] Care Team (Late st Contact Info) Description 12/16/2023 11:20 AM EST Office Visit [facility] [address] [place] [phone] Ivonne French PAHanyC [address] [place] [address] 12/16/2023 1:45 PM EST Office Visit Hematology/Oncology [facility] [address] [place] [address] Shon Rice MD [address] [facility] [place] [address] 12/23/2023 1:00 PM EST Office Visit Neurology[address] [phone] Oralia Glass MD [address] [place] [address] 12/29/2023 8:10 AM EST Pharm[address] Pharmacy, [address] [address] [facility] [address] [place] [id number] 01/07/2024 10:00 AM EST Office Visit [facility] [place] [address] [place] [phone] Ivonne French PA-C [address] [place] [address] 01/31/2024 9:00 AM EDT Imaging Radiology [facility] [address] [facility] [address] [facility] [place] [address] 02/10/2024 11:40 AM EDT Office Visit [facility] [place] [address] [facility], [place] [phone] Ivonne French PA-C [address] [place] [address] 05/10/2024 8:15 AM EDT Office Visit Ophthalmology, Francisco J [address] [address] Migel Ramires MD [address] [address] Scheduled Procedures Name Priority Associated Diagnoses Date/Ti [...] 01/28/2024 01/27/2023, 01/07, 08/03/2022, Additional history exists TSH 04/27/2024 04/27/2023, 12/09, 04/15/2022, Additional history exists Diabetic Eye Exam 05/06/2024 05/06/2023, , 01/21/2022, Additional history exists HbA1c 05/09/2024 11/09/2023, 08/0 06/2023, 04/27/2023, Additional history exists Albumin/Creatinine Ratio 11/15/2024 024, 12/25/2022, 09/16/2022, Additional history exists GFR 12/11/2024 12/11/2023, 02/0 12/2023, 12/10/2023, Additional history exists PAP SMEAR-EVERY 3 YRS,AGES [...] Medical Devices Implanted Type Area Video Game Tester Device Identifier Shelf Expiration Date Model / Serial / Lot Lens Intraoc 21.0 - [id number] - [id number] Implanted:Qty : 1 on 07/06/2017 by Luis Eduardo Cole MD at OR [facility] Left: Eye [employer] 01/05/2022 [id number] / [id number] / Lens Intraoc 21.0 - [id number] - [id number] Implanted:Qty : 1 on 07/20/2017 by Luis Eduardo Cole MD at OR [facility] Right: Eye [employer] 01/05/2022 [id number] / [id number] / Syringe Prolaryn Del 1.0cc - [id number] Implanted:Qty : 1 on 11/20/2019 by Amber Jain MD at OR [facility] [place] [place] Right: Mouth [employer] 10/21/2021 [id number] / / [id number] Implant Silastic 7 Silicone Sw - [id number] Implanted:Qty : 1 on 05/28/2020 by Farhat Pate MD at OR [facility] [place] [place] Right: Throat Bango [id number] / / documented as of this encounter Procedures Procedure Name Priority Date/Time Associated Diagnosis Comments ECHO, COMPLETE (2D), TRANS-THORACIC Routine 12/10/2023 1:09 PM EST Heart failure (HCC) documented in this encounter Visit Diagnoses Diagnosis Coronary artery disease involving walker river coronary artery of walker river heart, unspecified whether angina present- Primary documented in this encounter Administered Medications Inactive Administered Medications - up to 3 most recent administrations Medication Order MAR Action Action Date Dose Rate Site perflutren lipid microsphere inj SUSP 1.956 mg 1.956 mg, Intravenous, ONCE PRN Other, For Echo Only - Suboptimal Echo Images, Starting on Wed12/10/23 at 1305, Until Wed12/10/23 at 1504, For 2 hours, Administer IVP over 45 seconds, Cardiac Studies_HODHOV Given 12/10/2023 1:06 PM EST 1.956 mg documented in this encounter Advance Directives Latest Code Status on File Code Status Date Activated Date Inactivated Comments No Code 11/24/2023 7:24 PM This order reflects the patients wishes and were consensually agreed upon. Question Answer Comments Discussion of Advance Directives occurred with: Patient Does the patient have a Living Will? No Does the patient have Health Care Power of Quad Stayer? No Code Status History Code Status Date [...] and were consensually agreed upon. Care Teams Range Operator Relationship Specialty Start Date End Date Ivonne French PA-C [address] [address] PCP - General Physician Scale And Skip Car Operator 07/24/21 documented as of this encounter
--- OUTSIDE RECORDS SUMMARY | 2024-01-29 21:33 | External Medical Summary ---
Author Name Unknown Address Unknown Organization K01:LAB[facility]ATORY [facility] - [address] [place] [address] Laboratory Report Ordering Provider Test Date Status SANJU SAHU 12/10/2023 21:26:00 Final Observation Date Value Abnormality Reference (Units ) Status Phosphate 12/10/2023 21:26:00 3.5 2.5-4.8 (m g/dL) Final Performing Location [facility] - [address] [place] [address]
--- OUTSIDE RECORDS SUMMARY | 2024-01-29 21:33 | External Medical Summary ---
Author Name Unknown Address Unknown Organization : Laboratory Report Ordering Provider Test Date Status SANJU SAHU 12/11/2023 23:07:41 Final Observation Date Value Abnormality Reference (Units ) Status Streptococcus pneumoniae Ag [Presence] in Urine 12/11/2023 23:07:41 Not Detected Not Detected Final
Test Performed at:
[facility]
[address] [place] [address]
Elgin Redman M.D., Ph.D.,Director of Laboratories Performing Location
--- OUTSIDE RECORDS SUMMARY | 2024-01-29 21:33 | External Medical Summary ---
Author Name Unknown Address Unknown Organization K01:LAB[facility]ATORY [facility] - [address] [place] [address] Laboratory Report Ordering Provider Test Date Status CHERELLESONIA 12/10/2023 08:57:00 Final Observation Date Value Abnormality Reference (Units ) Status Bacteria identified in Specimen by Culture 12/10/2023 08:57:00 No growth Final Test: Culture, Blood (Site 2 )
Specimen Source: Blood, Venous
Specimen Type: Blood
Specimen Date: 12/10/2023 8:57 AM
Result Date: 12/15/2023 10:01 AM
Result Status: Final result
Resulting Lab: [facility]
[address]
[place] [address]

CULTURE

No growth

null Performing Location LABORATORY [facility] - [address] [place] [address]
--- OUTSIDE RECORDS SUMMARY | 2024-01-29 21:33 | External Medical Summary ---
Author Name Unknown Address Unknown Organization K01:LABORATORY [facility] [place] - [address] [place] [address] Laboratory Report Ordering Provider Test Date Status SANJU SAHU 12/12/2023 07:14:00 Final Observation Date Value Abnormality Reference (Units ) Status TSH 12/12/2023 07:14:00 0.75 0.27-4.20 (uIU/mL) Final Performing Location LABORATORY [facility] [place] - [address] [place] [address]
--- OUTSIDE RECORDS SUMMARY | 2024-01-29 21:33 | External Medical Summary ---
Author Name Unknown Address Unknown Organization K01:LABORATORY [facility] [place] - [address] [place] [address] Laboratory Report Ordering Provider Test Date Status SONIA VILLARREAL 12/10/2023 08:58:00 Final Observation Date Value Abnormality Reference (Units ) Status Uric Acid 12/10/2023 08:58:00 2.8 2.4-5.7 (m g/dL) Final Performing Location LABORATORY [facility] [place] - [address] [place] [address]
--- OUTSIDE RECORDS SUMMARY | 2024-01-29 21:33 | External Medical Summary ---
Author Name Unknown Address Unknown Organization [id number]:[facility] [place] [address] [place] [address] Laboratory Report Ordering Provider Test Date Status LUIS ALBERTOYAZANDEONTE 12/10/2023 08:58:00 Final Exclude Heart Failure: <300 pg/mL
Diagnose Heart Failure:
Age <50 yr: >450 pg/mL
50-75 yr: >900 pg/mL
>75 yr: >1800 pg/mL
GFR is 30-59 mL/min: >1200 pg/mL or Age- adjusted values
GFR <30 mL/min: do not use, not reliable

Prognostic threshold: 1000 pg/mL Observation Date Value Abnormality Reference (Units ) Status BNP, Pro-hormone 12/10/2023 08:58:00 4104 Above high no rmal <300 (pg/mL) Final Performing Location [facility] [place] [facility] [address] [place] [address]
--- OUTSIDE RECORDS SUMMARY | 2024-01-29 21:33 | External Medical Summary ---
Author Name Unknown Address Unknown Organization : Laboratory Report Ordering Provider Test Date Status RAMIN HACKETT 12/13/2023 21:31:36 Final Observation Date Value Abnormality Reference (Units ) Status Glucose Point of Care 12/13/2023 21:31:36 201 Above high normal 70-120 (mg/dL) Final Performing Location
--- OUTSIDE RECORDS SUMMARY | 2024-01-29 21:33 | External Medical Summary ---
Author Name Unknown Address Unknown Organization K01:[facility] [place] [facility] [address] [facility] [address] Laboratory Report Ordering Provider Test Date Status SONIA VILLARREAL 12/10/2023 08:58:00 Final Observation Date Value Abnormality Reference (Units ) Status WBC, Total 12/10/2023 08:58:00 0.64 Below lower panic limits 4.00-10.80 (K/uL) Final RBC 12/10/2023 08:58:00 2.34 3.85-5.15 (M/uL) Final Hemoglobin 12/10/2023 08:58:00 7.0 Below low normal 12.0-15.3 (g/dL) Final HCT 12/10/2023 08:58:00 20.0 Below low normal 36.0-45.2 (%) Final MCV 12/10/2023 08:58:00 85.5 81.5-97.5 (fL) Final MCH 12/10/2023 08:58:00 29.9 27.0-34.0 (pg) Final MCHC 12/10/2023 08:58:00 35.0 32.0-36.0 (g/dL) Final RDW 12/10/2023 08:58:00 17.2 11.5-15.5 (%) Final Platelets 12/10/2023 08:58:00 13 Below lower panic limits 140-400 (K/uL) Final MPV 12/10/2023 08:58:00 9.6 6.6-11.1 (fL) Final Nucleated erythrocytes/100 leukocytes [Ratio] in Blood by Automated count 12/10/2023 08:58:00 0 <=0 (/100 WBCs) Final Performing Location [facility] [place] [address] [place] [address]
--- OUTSIDE RECORDS SUMMARY | 2024-01-29 21:33 | External Medical Summary ---
Author Name Unknown Address Unknown Organization : Laboratory Report Ordering Provider Test Date Status RAMIN HACKETT 12/13/2023 15:52:37 Final Observation Date Value Abnormality Reference (Units ) Status Glucose Point of Care 12/13/2023 15:52:37 152 Above high normal 70-120 (mg/dL) Final Performing Location
--- OUTSIDE RECORDS SUMMARY | 2024-01-29 21:33 | External Medical Summary ---
Author Name Unknown Address Unknown Organization K01:[facility]ORY [facility] [place] - [facility] [address] [facility] [address] Laboratory Report Ordering Provider Test Date Status SONIA VILLARREAL 12/13/2023 06:34:00 Final Observation Date Value Abnormality Reference (Units ) Status WBC, Total 12/13/2023 06:34:00 0.68 Below lower panic limits 4.00-10.80 (K/uL) Final RBC 12/13/2023 06:34:00 2.63 3.85-5.15 (M/uL) Final Hemoglobin 12/13/2023 06:34:00 7.8 Below low normal 12.0-15.3 (g/dL) Final HCT 12/13/2023 06:34:00 23.1 Below low normal 36.0-45.2 (%) Final MCV 12/13/2023 06:34:00 87.8 81.5-97.5 (fL) Final MCH 12/13/2023 06:34:00 29.7 27.0-34.0 (pg) Final MCHC 12/13/2023 06:34:00 33.8 32.0-36.0 (g/dL) Final RDW 12/13/2023 06:34:00 19.1 11.5-15.5 (%) Final Platelets 12/13/2023 06:34:00 26 Below low normal 140-400 (K/uL) Final MPV 12/13/2023 06:34:00 11.8 6.6-11.1 (fL) Final Nucleated erythrocytes/100 leukocytes [Ratio] in Blood by Automated count 12/13/2023 06:34:00 0 <=0 (/100 WBCs) Final Performing Location LABORATORY [facility] [place] - [address] [place] [address]
--- OUTSIDE RECORDS SUMMARY | 2024-01-29 21:33 | External Medical Summary ---
Author Name Unknown Address Unknown Organization K01:LABORATORY [facility] - [address] [place] [address] Laboratory Report Ordering Provider Test Date Status SANJU SAHU 12/10/2023 21:26:00 Final Observation Date Value Abnormality Reference (Units ) Status Magnesium 12/10/2023 21:26:00 1.8 1.5-2.6 (m g/dL) Final Performing Location LABORATORY [facility] - [address] [place] [address]
--- OUTSIDE RECORDS SUMMARY | 2024-01-29 21:33 | External Medical Summary ---
Author Name Unknown Address Unknown Organization K01:LABORATORY [facility] - [address] [facility] [address] Laboratory Report Ordering Provider Test Date Status SONIA VILLARREAL 12/11/2023 07:02:00 Final Observation Date Value Abnormality Reference (Units ) Status SYNC LEUKOCYTES IN BLOOD BY AUTOMATED COUNT 12/11/2023 07:02:00 0.80 Below lower panic limits 4.00-10.80 (K/uL) Final Lymphocytes/100 leukocytes in Blood by Manual count 12/11/2023 07:02:00 87.0 Above high normal 18.0-42.0 (%) Final Monocytes/100 leukocytes in Blood by Manual count 12/11/2023 07:02:00 5.0 1.0-11.0 (%) Final Blasts/100 leukocytes in Blood by Manual count 12/11/2023 07:02:00 8.0 Above high normal <=0.0 (%) Final Lymphocytes [#/volume] in Blood by Manual count 12/11/2023 07:02:00 0.70 Below low normal 1.00-4.80 (K/uL) Final Monocytes [#/volume] in Blood by Manual count 12/11/2023 07:02:00 0.04 0.00-1.10 (K/uL) Final Blasts [#/volume] in Blood by Manual count 12/11/2023 07:02:00 0.06 Above high normal <=0.00 (K/uL) Final Performing Location LABORATORY [facility] - [address] [facility] [address]
--- OUTSIDE RECORDS SUMMARY | 2024-01-29 21:33 | External Medical Summary ---
Author Name Unknown Address Unknown Organization : Laboratory Report Ordering Provider Test Date Status RAMIN HACKETT 12/13/2023 11:00:18 Final Observation Date Value Abnormality Reference (Units ) Status Glucose Point of Care 12/13/2023 11:00:18 83 70-120 (mg/dL) Final Performing Location
--- OUTSIDE RECORDS SUMMARY | 2024-01-29 21:33 | External Medical Summary ---
Author Name Unknown Address Unknown Organization : Laboratory Report Ordering Provider Test Date Status ELVIA DE DIOS 12/10/2023 06:31:09 Final Observation Date Value Abnormality Reference (Units ) Status Glucose Point of Care 12/10/2023 06:31:09 179 Above high normal 70-120 (mg/dL) Final Performing Location
--- OUTSIDE RECORDS SUMMARY | 2024-01-29 21:33 | External Medical Summary ---
Author Name Unknown Address Unknown Organization K01:LABORATORY [facility] - [address] [place] [address] Laboratory Report Ordering Provider Test Date Status SONIA VILLARREAL 12/10/2023 08:58:00 Final Observation Date Value Abnormality Reference (Units ) Status Phosphate 12/10/2023 08:58:00 1.9 Below low normal 2.5 -4.8 (mg/dL) Final Performing Location LABORATORY [facility] - [address] [place] [address]
--- OUTSIDE RECORDS SUMMARY | 2024-01-29 21:33 | External Medical Summary ---
Author Name Unknown Address Unknown Organization : Laboratory Report Ordering Provider Test Date Status KENNY SON 12/11/2023 22:09:18 Final Observation Date Value Abnormality Reference (Units ) Status Glucose Point of Care 12/11/2023 22:09:18 166 Above high normal 70-120 (mg/dL) Final Performing Location
--- OUTSIDE RECORDS SUMMARY | 2024-01-29 21:33 | External Medical Summary ---
Author Name Unknown Address Unknown Organization : Laboratory Report Ordering Provider Test Date Status SONIA VILLARREAL 12/12/2023 07:13:00 Final Observation Date Value Abnormality Reference (Units ) Status Performing Location
--- OUTSIDE RECORDS SUMMARY | 2024-01-29 21:33 | External Medical Summary ---
Author Name Unknown Address Unknown Organization K01:LABORATORY [facility] [place] - [address] [facility] [place] [address] Laboratory Report Ordering Provider Test Date Status CHERELLEPHOEBE HERNANDEZROSA MARIA 12/10/2023 08:58:00 Final Observation Date Value Abnormality Reference (Units ) Status BUN 12/10/2023 08:58:00 31 Above high normal 6-20 (mg/dL) Final Creatinine 12/10/2023 08:58:00 1.3 Above high normal 0.5-1.0 (mg/dL) Final Glomerular filtration rate/1.73 sq M.predicted [Volume Rate/Area] in Serum, Plasma or Blood by Creatinine-based formula (CKD-EPI) 12/10/2023 08:58:00 47 Below low normal >=60 (mL/min) Final eGFR is calculated based on the CKD-EPI 2020 equation SODIUM 12/10/2023 08:58:00 132 Below low normal 135 -146 (mmol/L) Final Potassium 12/10/2023 08:58:00 2.9 Below low normal 3.5 -5.1 (mmol/L) Final Cl 12/10/2023 08:58:00 98 98-107 (mm ol/L) Final CO2 12/10/2023 08:58:00 19 Below low normal 22- 32 (mmol/L) Final Anion gap 12/10/2023 08:58:00 15 7-15 (mmol /L) Final Glucose 12/10/2023 08:58:00 204 Above high normal 70 -120 (mg/dL) Final Albumin 12/10/2023 08:58:00 3.4 Below low normal 3.8 -5.0 (g/dL) Final AST (Aspartate aminotransferase) 12/10/2023 08:58:00 22 10-35 (U/L) Fin al Alk Phos 12/10/2023 08:58:00 70 35-130 (U/ L) Final Bilirubin, Total 12/10/2023 08:58:00 0.7 <=1 .2 (mg/dL) Final Calcium 12/10/2023 08:58:00 7.9 Below low normal 8.4 -10.2 (mg/dL) Final Protein 12/10/2023 08:58:00 6.5 6.0-8.3 (g /dL) Final ALT (Alanine aminotransferase) 12/10/2023 08:58:00 11 10-35 (U/L) Colin lee Performing Location LABORATORY [facility] [place] - [address] [facility] [address]
--- OUTSIDE RECORDS SUMMARY | 2024-01-29 21:33 | External Medical Summary ---
Author Name Unknown Address Unknown Organization : Laboratory Report Ordering Provider Test Date Status KENNY SON 12/11/2023 16:29:07 Final Observation Date Value Abnormality Reference (Units ) Status Glucose Point of Care 12/11/2023 16:29:07 142 Above high normal 70-120 (mg/dL) Final Performing Location
--- OUTSIDE RECORDS SUMMARY | 2024-01-29 21:33 | External Medical Summary ---
Author Name Unknown Address Unknown Organization K01:LABORATORY [facility] [place] [facility] - [address] [place] [address] Laboratory Report Ordering Provider Test Date Status SONIA VILLARREAL 12/10/2023 08:58:00 Final Observation Date Value Abnormality Reference (Units ) Status ABO 12/10/2023 08:58:00 O Final RH 12/10/2023 08:58:00 Positive Final RED BLOOD CELL ANTIBODY SCREEN 12/10/2023 08:58:00 Negative Final SPECIMEN EXPIRATION DATE 12/10/2023 08:58:00 12/13/2023 23:59 Final Performing Location LABORATORY [facility] [place] [facility] - [address] [place] [address]
--- OUTSIDE RECORDS SUMMARY | 2024-01-29 21:33 | External Medical Summary ---
Author Name Unknown Address Unknown Organization : Laboratory Report Ordering Provider Test Date Status KENNY SON 12/12/2023 11:04:57 Final Observation Date Value Abnormality Reference (Units ) Status Glucose Point of Care 12/12/2023 11:04:57 145 Above high normal 70-120 (mg/dL) Final Performing Location
--- OUTSIDE RECORDS SUMMARY | 2024-01-29 21:33 | External Medical Summary ---
Author Name Unknown Address Unknown Organization K01:LABORATORY [facility] - [address] [facility] [address] Laboratory Report Ordering Provider Test Date Status CHERELLEKATNIAPHUONGROSA MARIA 12/13/2023 06:34:00 Final Observation Date Value Abnormality Reference (Units ) Status SYNC LEUKOCYTES IN BLOOD BY AUTOMATED COUNT 12/13/2023 06:34:00 0.68 Below lower panic limits 4.00-10.80 (K/uL) Final Neutrophils/100 leukocytes in Blood by Manual count 12/13/2023 06:34:00 1.0 Below low normal 40.0-75.0 (%) Final Lymphocytes/100 leukocytes in Blood by Manual count 12/13/2023 06:34:00 75.0 Above high normal 18.0-42.0 (%) Final Monocytes/100 leukocytes in Blood by Manual count 12/13/2023 06:34:00 13.0 Above high normal 1.0-11.0 (%) Final Blasts/100 leukocytes in Blood by Manual count 12/13/2023 06:34:00 11.0 Above high normal <=0.0 (%) Final Neutrophils [#/volume] in Blood by Manual count 12/13/2023 06:34:00 0.01 Below low normal 1.80-7.70 (K/uL) Final Lymphocytes [#/volume] in Blood by Manual count 12/13/2023 06:34:00 0.51 Below low normal 1.00-4.80 (K/uL) Final Monocytes [#/volume] in Blood by Manual count 12/13/2023 06:34:00 0.09 0.00-1.10 (K/uL) Final Blasts [#/volume] in Blood by Manual count 12/13/2023 06:34:00 0.07 Above high normal <=0.00 (K/uL) Final Performing Location LABORATORY [facility] - [address] [place] [address]
--- OUTSIDE RECORDS SUMMARY | 2024-01-29 21:33 | External Medical Summary ---
Author Name Unknown Address Unknown Organization K01:[facility] [place] [address] [place] [address] Laboratory Report Ordering Provider Test Date Status CHERELLEKATINA HERNANDEZDARA 12/11/2023 07:02:00 Final Observation Date Value Abnormality Reference (Units ) Status BUN 12/11/2023 07:02:00 27 Above high normal 6-20 (mg/dL) Final Creatinine 12/11/2023 07:02:00 1.3 Above high normal 0.5-1.0 (mg/dL) Final Glomerular filtration rate/1.73 sq M.predicted [Volume Rate/Area] in Serum, Plasma or Blood by Creatinine-based formula (CKD-EPI) 12/11/2023 07:02:00 46 Below low normal >=60 (mL/min) Final eGFR is calculated based on the CKD-EPI 2020 equation SODIUM 12/11/2023 07:02:00 134 Below low normal 135 -146 (mmol/L) Final Potassium 12/11/2023 07:02:00 3.2 Below low normal 3.5 -5.1 (mmol/L) Final Cl 12/11/2023 07:02:00 101 98-107 (mm ol/L) Final CO2 12/11/2023 07:02:00 19 Below low normal 22- 32 (mmol/L) Final Anion gap 12/11/2023 07:02:00 14 7-15 (mmol /L) Final Glucose 12/11/2023 07:02:00 177 Above high normal 70 -120 (mg/dL) Final Albumin 12/11/2023 07:02:00 3.6 Below low normal 3.8 -5.0 (g/dL) Final AST (Aspartate aminotransferase) 12/11/2023 07:02:00 22 10-35 (U/L) Fin al Alk Phos 12/11/2023 07:02:00 84 35-130 (U/ L) Final Bilirubin, Total 12/11/2023 07:02:00 0.9 <=1 .2 (mg/dL) Final Calcium 12/11/2023 07:02:00 7.7 Below low normal 8.4 -10.2 (mg/dL) Final Protein 12/11/2023 07:02:00 6.4 6.0-8.3 (g /dL) Final ALT (Alanine aminotransferase) 12/11/2023 07:02:00 9 Below low normal 10-35 (U/L) Final Performing Location [facility] [place] [address] [facility] [address]
--- OUTSIDE RECORDS SUMMARY | 2024-01-29 21:33 | External Medical Summary ---
Author Name Unknown Address Unknown Organization : Laboratory Report Ordering Provider Test Date Status RAMIN HACKETT 12/13/2023 06:23:49 Final Observation Date Value Abnormality Reference (Units ) Status Glucose Point of Care 12/13/2023 06:23:49 102 70-120 (mg/dL) Final Performing Location
--- OUTSIDE RECORDS SUMMARY | 2024-01-29 21:33 | External Medical Summary ---
Author Name Unknown Address Unknown Organization K01:LABORATORY [facility] [place] - [address] [place] [id number] Laboratory Report Ordering Provider Test Date Status SONIA VILLARREAL 12/10/2023 09:12:38 Final Observation Date Value Abnormality Reference (Units) Status Bacteria identified in Specimen by Culture 12/10/2023 09:12:38 No significant growth Final Test: Culture, Urine, Quanti tative
Specimen Source: Urine, Catheter
Specimen Type: Urine
Specimen Date: 12/10/2023 9:12 AM
Result Date: 12/11/2023 9:32 AM
Result Status: Final result
Resulting Lab: LABORATORY [facility] [place]
[address]
[place] [address]

CULTURE

No significant growth

null Performing Location LABORATORY [facility] [place] - [address] [facility] [id number]
--- OUTSIDE RECORDS SUMMARY | 2024-01-29 21:33 | External Medical Summary ---
Author Name Unknown Address Unknown Organization K01:LABORATORY [facility] - [address] [place] [address] Laboratory Report Ordering Provider Test Date Status KENNY SON 12/13/2023 06:34:00 Final Observation Date Value Abnormality Reference (Units ) Status Vancomycin, level 12/13/2023 06:34:00 14.5 10 .0-40.0 (ug/mL) Final Performing Location LABORATORY [facility] - [address] [place] [address]
--- OUTSIDE RECORDS SUMMARY | 2024-01-29 21:33 | External Medical Summary ---
Author Name Unknown Address Unknown Organization : Laboratory Report Ordering Provider Test Date Status KENNY SON 12/11/2023 11:11:24 Final Observation Date Value Abnormality Reference (Units ) Status Glucose Point of Care 12/11/2023 11:11:24 140 Above high normal 70-120 (mg/dL) Final Performing Location
--- OUTSIDE RECORDS SUMMARY | 2024-01-29 21:33 | External Medical Summary ---
Author Name Unknown Address Unknown Organization K01:LABORATORY [facility] [place] - [address] [facility] [address] Laboratory Report Ordering Provider Test Date Status SONIA VILLARREAL 12/10/2023 09:12:38 Final Observation Date Value Abnormality Reference (Units ) Status Color of Urine by Auto 12/10/2023 09:12:38 Yellow Colorless, Light Yellow, Yellow, Dark Yellow Final Clarity, Urine 12/10/2023 09:12:38 Clear Clear Final Glucose [Mass/volume] in Urine by Automated test strip 12/10/2023 09:12:38 50 Abnormal Negative (mg/dL) Final Bilirubin.total [Presence] in Urine by Automated test strip 12/10/2023 09:12:38 Negative Negative Final Ketones [Mass/volume] in Urine by Automated test strip 12/10/2023 09:12:38 Trace Abnormal Negative (mg/dL) Final Specific gravity, Urine 12/10/2023 09:12:38 1.020 1.003-1.030 Final Hemoglobin [Presence] in Urine by Automated test strip 12/10/2023 09:12:38 Negative Negative Final pH, Urine 12/10/2023 09:12:38 6.0 5.0-7.5 (Units) Final Protein [Mass/volume] in Urine by Automated test strip 12/10/2023 09:12:38 30 Abnormal Negative (mg/dL) Final Urobilinogen [Mass/volume] in Urine by Automated test strip 12/10/2023 09:12:38 Normal Normal (mg/dL) Final Nitrite [Presence] in Urine by Automated test strip 12/10/2023 09:12:38 Negative Negative Final Leukocyte esterase [Presence] in Urine by Automated test strip 12/10/2023 09:12:38 Negative Negative Final RBC, Urine 12/10/2023 09:12:38 0-2 0-2 (/HPF) Final WBC, Urine 12/10/2023 09:12:38 3-5 Abnormal 0-2 (/HPF) Final Bacteria [#/area] in Urine sediment by Microscopy high power field 12/10/2023 09:12:38 0-25 0-25 (/HPF) Final Hyaline casts, Urine 12/10/2023 09:12:38 1-4 Abnormal None (/LPF) Final Granular casts [#/area] in Urine sediment by Microscopy low power field 12/10/2023 09:12:38 5-9 Abnormal None (/LPF) Final Performing Location LABORATORY [facility] [place] - [address] [facility] [address]
--- OUTSIDE RECORDS SUMMARY | 2024-01-29 21:33 | External Medical Summary ---
Author Name Unknown Address Unknown Organization K01:LABORATORY [facility] [place] - [address] [place] [address] Laboratory Report Ordering Provider Test Date Status CHERELLESONIA 12/10/2023 09:05:00 Final Observation Date Value Abnormality Reference (Units ) Status Bacteria identified in Specimen by Culture 12/10/2023 09:05:00 No growth Final Test: Culture, Blood
Spe cimen Source: Blood, Venous
Specimen Type: Blood
Specimen Date: 12/10/2023 9:05 AM
Result Date: 12/15/2023 10:01 AM
Result Status: Final result
Resulting Lab: LABORATORY [facility] [place]
[address]
[place] [address]

CULTURE

No growth

null Performing Location LABORATORY [facility] [place] - [address] [place] [address]
--- OUTSIDE RECORDS SUMMARY | 2024-01-29 21:33 | External Medical Summary ---
Author Name Unknown Address Unknown Organization : Laboratory Report Ordering Provider Test Date Status ELVIA DE DIOS 12/10/2023 08:56:00 Final Observation Date Value Abnormality Reference (Units ) Status Color of Urine by Auto 12/10/2023 08:56:00 Yellow Light Yellow, Yellow Final Clarity, Urine 12/10/2023 08:56:00 Clear Clear Final Glucose [Mass/volume] in Urine by Automated test strip 12/10/2023 08:56:00 Negative Negative (mg/dL) Final Bilirubin.total [Presence] in Urine by Automated test strip 12/10/2023 08:56:00 Negative Negative Final Ketones [Mass/volume] in Urine by Automated test strip 12/10/2023 08:56:00 Negative Negative (mg/dL) Final Specific gravity, Urine 12/10/2023 08:56:00 1.020 1.003-1.030 Final Hemoglobin [Presence] in Urine by Automated test strip 12/10/2023 08:56:00 Trace-intact Abnormal Negative Final pH, Urine 12/10/2023 08:56:00 5.5 5.0, 5.5, 6.0, 6.5, 7.0, 7.5 (units) Final Protein [Mass/volume] in Urine by Automated test strip 12/10/2023 08:56:00 100 Abnormal Negative (mg/dL) Final Urobilinogen, Urine 12/10/2023 08:56:00 0.2 0.2, 1.0 (mg/dL) Final Nitrite [Presence] in Urine by Automated test strip 12/10/2023 08:56:00 Negative Negative Final Leukocyte esterase [Presence] in Urine by Automated test strip 12/10/2023 08:56:00 Negative Negative Final Performing Location
--- OUTSIDE RECORDS SUMMARY | 2024-01-29 21:33 | External Medical Summary ---
Author Name Unknown Address Unknown Organization K01:[facility]ORY [facility] [place] [address] [facility] [place] [address] Laboratory Report Ordering Provider Test Date Status SONIA VILLARREAL 12/12/2023 07:13:00 Final Observation Date Value Abnormality Reference (Units ) Status WBC, Total 12/12/2023 07:13:00 1.04 Below low normal 4.00-10.80 (K/uL) Final RBC 12/12/2023 07:13:00 2.51 3.85-5.15 (M/uL) Final Hemoglobin 12/12/2023 07:13:00 7.5 Below low normal 12.0-15.3 (g/dL) Final HCT 12/12/2023 07:13:00 21.9 Below low normal 36.0-45.2 (%) Final MCV 12/12/2023 07:13:00 87.3 81.5-97.5 (fL) Final MCH 12/12/2023 07:13:00 29.9 27.0-34.0 (pg) Final MCHC 12/12/2023 07:13:00 34.2 32.0-36.0 (g/dL) Final RDW 12/12/2023 07:13:00 19.0 11.5-15.5 (%) Final Platelets 12/12/2023 07:13:00 21 Below low normal 140-400 (K/uL) Final MPV 12/12/2023 07:13:00 12.5 6.6-11.1 (fL) Final Nucleated erythrocytes/100 leukocytes [Ratio] in Blood by Automated count 12/12/2023 07:13:00 0 <=0 (/100 WBCs) Final Performing Location LABOR[facility]ORY [facility] [place] [address] [place] [address]
--- OUTSIDE RECORDS SUMMARY | 2024-01-29 21:33 | External Medical Summary ---
Author Name Unknown Address Unknown Organization K01:LABORATORY [facility] [place] [address] [place] [facility] [place] [address] Laboratory Report Ordering Provider Test Date Status PHOEBE VILLARREALROSA MARIA 12/13/2023 06:34:00 Final Observation Date Value Abnormality Reference (Units ) Status BUN 12/13/2023 06:34:00 26 Above high normal 6-20 (mg/dL) Final Creatinine 12/13/2023 06:34:00 1.4 Above high normal 0.5-1.0 (mg/dL) Final Glomerular filtration rate/1.73 sq M.predicted [Volume Rate/Area] in Serum, Plasma or Blood by Creatinine-based formula (CKD-EPI) 12/13/2023 06:34:00 44 Below low normal >=60 (mL/min) Final eGFR is calculated based on the CKD-EPI 2020 equation SODIUM 12/13/2023 06:34:00 135 135-146 (m mol/L) Final Potassium 12/13/2023 06:34:00 3.8 3.5-5.1 (m mol/L) Final Cl 12/13/2023 06:34:00 100 98-107 (mm ol/L) Final CO2 12/13/2023 06:34:00 24 22-32 (mmo l/L) Final Anion gap 12/13/2023 06:34:00 11 7-15 (mmol /L) Final Glucose 12/13/2023 06:34:00 100 70-120 (mg /dL) Final Albumin 12/13/2023 06:34:00 3.2 Below low normal 3.8 -5.0 (g/dL) Final AST (Aspartate aminotransferase) 12/13/2023 06:34:00 29 10-35 (U/L) Fin al Alk Phos 12/13/2023 06:34:00 120 35-130 (U/ L) Final Bilirubin, Total 12/13/2023 06:34:00 0.9 <=1 .2 (mg/dL) Final Calcium 12/13/2023 06:34:00 7.7 Below low normal 8.4 -10.2 (mg/dL) Final Protein 12/13/2023 06:34:00 6.5 6.0-8.3 (g /dL) Final ALT (Alanine aminotransferase) 12/13/2023 06:34:00 13 10-35 (U/L) Colin lee Performing Location LAB[facility]ORY [facility] [place] [address] [facility] [address]
--- OUTSIDE RECORDS SUMMARY | 2024-01-29 21:33 | External Medical Summary ---
Author Name Unknown Address Unknown Organization K01:LABORATORY C - [address] [facility] [address] Laboratory Report Ordering Provider Test Date Status SONIA VILLARREAL 12/12/2023 07:13:00 Final Observation Date Value Abnormality Reference (Units ) Status SYNC LEUKOCYTES IN BLOOD BY AUTOMATED COUNT 12/12/2023 07:13:00 1.04 Below low normal 4.00-10.80 (K/uL) Final Lymphocytes/100 leukocytes in Blood by Manual count 12/12/2023 07:13:00 74.0 Above high normal 18.0-42.0 (%) Final Monocytes/100 leukocytes in Blood by Manual count 12/12/2023 07:13:00 8.0 1.0-11.0 (%) Final Blasts/100 leukocytes in Blood by Manual count 12/12/2023 07:13:00 18.0 Above high normal <=0.0 (%) Final Lymphocytes [#/volume] in Blood by Manual count 12/12/2023 07:13:00 0.77 Below low normal 1.00-4.80 (K/uL) Final Monocytes [#/volume] in Blood by Manual count 12/12/2023 07:13:00 0.08 0.00-1.10 (K/uL) Final Blasts [#/volume] in Blood by Manual count 12/12/2023 07:13:00 0.19 Above high normal <=0.00 (K/uL) Final Performing Location [facility] - [address] [address] [facility] [address]
--- OUTSIDE RECORDS SUMMARY | 2024-01-29 21:33 | External Medical Summary ---
Author Name Unknown Address Unknown Organization : Laboratory Report Ordering Provider Test Date Status ELVIA DE DIOS 12/10/2023 16:12:06 Final Observation Date Value Abnormality Reference (Units ) Status Glucose Point of Care 12/10/2023 16:12:06 232 Above high normal 70-120 (mg/dL) Final Performing Location
--- OUTSIDE RECORDS SUMMARY | 2024-01-29 21:33 | External Medical Summary ---
Author Name Unknown Address Unknown Organization : Laboratory Report Ordering Provider Test Date Status KENNY SON 12/12/2023 16:06:28 Final Observation Date Value Abnormality Reference (Units ) Status Glucose Point of Care 12/12/2023 16:06:28 188 Above high normal 70-120 (mg/dL) Final Performing Location
--- OUTSIDE RECORDS SUMMARY | 2024-01-29 21:33 | External Medical Summary ---
Author Name Unknown Address Unknown Organization [id number]:[facility]ORATORY [facility] [place] [facility] [address] [facility] [facility] [address] Laboratory Report Ordering Provider Test Date Status SANJU SAHU 12/10/2023 21:26:00 Final Observation Date Value Abnormality Reference (Units ) Status BUN 12/10/2023 21:26:00 31 Above high normal 6-20 (mg/dL) Final Creatinine 12/10/2023 21:26:00 1.3 Above high normal 0.5-1.0 (mg/dL) Final Glomerular filtration rate/1.73 sq M.predicted [Volume Rate/Area] in Serum, Plasma or Blood by Creatinine-based formula (CKD-EPI) 12/10/2023 21:26:00 49 Below low normal >=60 (mL/min) Final eGFR is calculated based on the CKD-EPI 2020 equation SODIUM 12/10/2023 21:26:00 135 135-146 (m mol/L) Final Potassium 12/10/2023 21:26:00 3.9 3.5-5.1 (m mol/L) Final Cl 12/10/2023 21:26:00 102 98-107 (mm ol/L) Final CO2 12/10/2023 21:26:00 19 Below low normal 22- 32 (mmol/L) Final Anion gap 12/10/2023 21:26:00 14 7-15 (mmol /L) Final Glucose 12/10/2023 21:26:00 193 Above high normal 70 -120 (mg/dL) Final Calcium 12/10/2023 21:26:00 7.5 Below low normal 8.4 -10.2 (mg/dL) Final Performing Location LABORATORY [facility] [place] - [address] [place] [address]
--- OUTSIDE RECORDS SUMMARY | 2024-01-29 21:33 | External Medical Summary ---
Author Name Unknown Address Unknown Organization K01:LABORATORY C - [address] [place] [address] Laboratory Report Ordering Provider Test Date Status SONIA VILLARREAL 12/11/2023 07:02:00 Final Observation Date Value Abnormality Reference (Units ) Status Phosphate 12/11/2023 07:02:00 1.7 Below low normal 2.5 -4.8 (mg/dL) Final Performing Location [facility] - [address] [place] [address]
--- OUTSIDE RECORDS SUMMARY | 2024-01-29 21:33 | External Medical Summary ---
Author Name Unknown Address Unknown Organization K01:[facility] - [address] [place] [address] Laboratory Report Ordering Provider Test Date Status SONIA VILLARREAL 12/12/2023 07:14:00 Final Observation Date Value Abnormality Reference (Units ) Status Phosphate 12/12/2023 07:14:00 2.5 2.5-4.8 (m g/dL) Final Performing Location [facility] - [address] [place] [address]
--- OUTSIDE RECORDS SUMMARY | 2024-01-29 21:33 | External Medical Summary ---
Author Name Unknown Address Unknown Organization : Laboratory Report Ordering Provider Test Date Status KENNY SON 12/12/2023 21:14:21 Final Observation Date Value Abnormality Reference (Units ) Status Glucose Point of Care 12/12/2023 21:14:21 185 Above high normal 70-120 (mg/dL) Final Performing Location
--- OUTSIDE RECORDS SUMMARY | 2024-01-29 21:33 | External Medical Summary ---
Author Name Unknown Address Unknown Organization : Laboratory Report Ordering Provider Test Date Status KENNY SON 12/11/2023 06:22:40 Final Observation Date Value Abnormality Reference (Units ) Status Glucose Point of Care 12/11/2023 06:22:40 168 Above high normal 70-120 (mg/dL) Final Performing Location
--- OUTSIDE RECORDS SUMMARY | 2024-01-29 21:33 | External Medical Summary ---
Author Name Unknown Address Unknown Organization K01:LABORATORY C - [address] [place] [address] Laboratory Report Ordering Provider Test Date Status SONIA VILLARREAL 12/13/2023 06:34:00 Final Observation Date Value Abnormality Reference (Units ) Status Phosphate 12/13/2023 06:34:00 2.0 Below low normal 2.5 -4.8 (mg/dL) Final Performing Location [facility] - [address] [place] [address]
--- OUTSIDE RECORDS SUMMARY | 2024-01-29 21:34 | External Medical Summary ---
Author Name Unknown Address Unknown Organization : Laboratory Report Ordering Provider Test Date Status ELVIA DE DIOS 12/05/2023 16:09:48 Final Observation Date Value Abnormality Reference (Units ) Status Glucose Point of Care 12/05/2023 16:09:48 259 Above high normal 70-120 (mg/dL) Final Performing Location
--- OUTSIDE RECORDS SUMMARY | 2024-01-29 21:34 | External Medical Summary ---
Author Name Unknown Address Unknown Organization K01:[facility] - [address] [place] [address] Laboratory Report Ordering Provider Test Date Status SONIA VILLARREAL 12/08/2023 06:13:00 Final Observation Date Value Abnormality Reference (Units ) Status Phosphate 12/08/2023 06:13:00 3.2 2.5-4.8 (m g/dL) Final Performing Location [facility] - [address] [place] [address]
--- OUTSIDE RECORDS SUMMARY | 2024-01-29 21:34 | External Medical Summary ---
Author Name Unknown Address Unknown Organization : Laboratory Report Ordering Provider Test Date Status ELVIA DE DIOS 12/08/2023 21:45:20 Final Observation Date Value Abnormality Reference (Units ) Status Glucose Point of Care 12/08/2023 21:45:20 221 Above high normal 70-120 (mg/dL) Final Performing Location
--- OUTSIDE RECORDS SUMMARY | 2024-01-29 21:34 | External Medical Summary ---
Author Name Unknown Address Unknown Organization K01:[facility]ORY [facility] [place] [address] [place] [address] Laboratory Report Ordering Provider Test Date Status CY DE ANDA II 12/05/2023 12:35:00 Final Observation Date Value Abnormality Reference (Units ) Status Troponin T 12/05/2023 12:35:00 22 Above high normal < =14 (ng/L) Final Performing Location [facility] - [address] [place] [address]
--- OUTSIDE RECORDS SUMMARY | 2024-01-29 21:34 | External Medical Summary ---
Author Name Unknown Address Unknown Organization : Laboratory Report Ordering Provider Test Date Status ELVIA DE DIOS 12/06/2023 11:25:42 Final Observation Date Value Abnormality Reference (Units ) Status Glucose Point of Care 12/06/2023 11:25:42 155 Above high normal 70-120 (mg/dL) Final Performing Location
--- OUTSIDE RECORDS SUMMARY | 2024-01-29 21:34 | External Medical Summary ---
Author Name Unknown Address Unknown Organization K01:[place]ATORY [facility] [place] [address] [facility] [address] Laboratory Report Ordering Provider Test Date Status SONIA VILLARREAL 12/07/2023 15:37:00 Final Collect 3 mL whole blood and send to blood bank. Observation Date Value Abnormality Reference (Units) Status Transfusion reaction [Interpretation] in Plasma or RBC Narrative 12/07/2023 15:37:00 Diagnosis: Febrile non-hemolytic transfusion reaction (FNHTR). Final Transfusion reaction [Interpretation] in Plasma or RBC Narrative 12/07/2023 15:37:00 Severity: Non-severe Final Transfusion reaction [Interpretation] in Plasma or RBC Narrative 12/07/2023 15:37:00 Imputability: Possible Final Transfusion reaction [Interpretation] in Plasma or RBC Narrative 12/07/2023 15:37:00 Final Transfusion reaction [Interpretation] in Plasma or RBC Narrative 12/07/2023 15:37:00 Patient admitted with acute myeloid leukemia and received 1 unit of platelets on 12/07/2023. The patient was transfused 253 mL of 253 mL and experienced elevation of temperature without chills or rigors. Final Transfusion reaction [Interpretation] in Plasma or RBC Narrative 12/07/2023 15:37:00 Final Transfusion reaction [Interpretation] in Plasma or RBC Narrative 12/07/2023 15:37:00 Pre-transfusion vitals: 37.4C / 113/64 mmHg / 87 beats/min / 16 breaths/min / 96% saturation on room air Final Transfusion reaction [Interpretation] in Plasma or RBC Narrative 12/07/2023 15:37:00 Final Transfusion reaction [Interpretation] in Plasma or RBC Narrative 12/07/2023 15:37:00 Post-transfusion vitals: 38.6C / 121/53 mmHg / 86 beats/min / 18 breaths/min / 94% saturation on room air Final Transfusion reaction [Interpretation] in Plasma or RBC Narrative 12/07/2023 15:37:00 Final Transfusion reaction [Interpretation] in Plasma or RBC Narrative 12/07/2023 15:37:00 The WHITNEY and screen were not performed. Final Transfusion reaction [Interpretation] in Plasma or RBC Narrative 12/07/2023 15:37:00 Final Transfusion reaction [Interpretation] in Plasma or RBC Narrative 12/07/2023 15:37:00 Patient identification, chart copy, and component label were reviewed and no clerical error detected. Final Transfusion reaction [Interpretation] in Plasma or RBC Narrative 12/07/2023 15:37:00 Blood product was sent for bacterial testing. No organisms were identified and no growth was seen after 3 days. Final Transfusion reaction [Interpretation] in Plasma or RBC Narrative 12/07/2023 15:37:00 Final Performing Location LAB[facility]ORY [facility] [place] [address] [facility] [address]
--- OUTSIDE RECORDS SUMMARY | 2024-01-29 21:34 | External Medical Summary ---
Author Name Unknown Address Unknown Organization : Laboratory Report Ordering Provider Test Date Status ELVIA DE DIOS 12/09/2023 21:13:15 Final Observation Date Value Abnormality Reference (Units ) Status Glucose Point of Care 12/09/2023 21:13:15 195 Above high normal 70-120 (mg/dL) Final Performing Location
--- OUTSIDE RECORDS SUMMARY | 2024-01-29 21:34 | External Medical Summary ---
Author Name Unknown Address Unknown Organization K01:[facility] - [address] [place] [address] Laboratory Report Ordering Provider Test Date Status SONIA VILLARREAL 12/06/2023 07:44:00 Final Observation Date Value Abnormality Reference (Units ) Status Phosphate 12/06/2023 07:44:00 3.5 2.5-4.8 (m g/dL) Final Performing Location [facility] - [address] [place] [address]
--- OUTSIDE RECORDS SUMMARY | 2024-01-29 21:34 | External Medical Summary ---
Author Name Unknown Address Unknown Organization K01:[facility] - [address] [place] [address] Laboratory Report Ordering Provider Test Date Status CHERELLESONIA 12/07/2023 15:33:00 Final Observation Date Value Abnormality Reference (Units ) Status Bacteria identified in Specimen by Culture 12/07/2023 15:33:00 No growth Final Test: Culture, Blood (Site 2 )
Specimen Source: Blood, Venous
Specimen Type: Blood
Specimen Date: 12/07/2023 3:33 PM
Result Date: 12/12/2023 4:01 PM
Result Status: Final result
Resulting Lab: LABORATORY [facility]
[address]
[place] [address]

CULTURE

No growth

null Performing Location LABORATORY [facility] [place] - [address] [place] [facility]
--- OUTSIDE RECORDS SUMMARY | 2024-01-29 21:34 | External Medical Summary ---
Author Name Unknown Address Unknown Organization : Laboratory Report Ordering Provider Test Date Status ELVIA DE DIOS 12/09/2023 11:06:31 Final Observation Date Value Abnormality Reference (Units ) Status Glucose Point of Care 12/09/2023 11:06:31 218 Above high normal 70-120 (mg/dL) Final Performing Location
--- OUTSIDE RECORDS SUMMARY | 2024-01-29 21:34 | External Medical Summary ---
Author Name Unknown Address Unknown Organization K01:LABORATORY [facility] [place] - [facility] [address] [facility] [address] [facility] [address] Laboratory Report Ordering Provider Test Date Status SONIA VILLARREAL 12/06/2023 07:44:00 Final Observation Date Value Abnormality Reference (Units ) Status WBC, Total 12/06/2023 07:44:00 0.94 Below lower panic limits 4.00-10.80 (K/uL) Final RBC 12/06/2023 07:44:00 2.80 3.85-5.15 (M/uL) Final Hemoglobin 12/06/2023 07:44:00 8.1 Below low normal 12.0-15.3 (g/dL) Final HCT 12/06/2023 07:44:00 23.8 Below low normal 36.0-45.2 (%) Final MCV 12/06/2023 07:44:00 85.0 81.5-97.5 (fL) Final MCH 12/06/2023 07:44:00 28.9 27.0-34.0 (pg) Final MCHC 12/06/2023 07:44:00 34.0 32.0-36.0 (g/dL) Final RDW 12/06/2023 07:44:00 17.0 11.5-15.5 (%) Final Platelets 12/06/2023 07:44:00 27 Below low normal 140-400 (K/uL) Final MPV 12/06/2023 07:44:00 10.3 6.6-11.1 (fL) Final Nucleated erythrocytes/100 leukocytes [Ratio] in Blood by Automated count 12/06/2023 07:44:00 0 <=0 (/100 WBCs) Final Performing Location LABORATORY [facility] [place] - [address] [place] [address]
--- OUTSIDE RECORDS SUMMARY | 2024-01-29 21:34 | External Medical Summary ---
Author Name Unknown Address Unknown Organization K01:LABORATORY [facility] [place] [facility] - [address] [place] [address] Laboratory Report Ordering Provider Test Date Status SONIA VILLARREAL 12/07/2023 15:37:00 Final Collect 3 mL whole blood and send to blood bank. Observation Date Value Abnormality Reference (Units) Status SUSPECTED TRANSFUSION REACTION EVALUATION 12/07/2023 15:37:00 See Pathology Interpretation Final Performing Location LABORATORY [facility] [place] [facility] - [address] [place] [address]
--- OUTSIDE RECORDS SUMMARY | 2024-01-29 21:34 | External Medical Summary ---
Author Name Unknown Address Unknown Organization : Laboratory Report Ordering Provider Test Date Status ELVIA DE DIOS 12/08/2023 10:47:40 Final Observation Date Value Abnormality Reference (Units ) Status Glucose Point of Care 12/08/2023 10:47:40 217 Above high normal 70-120 (mg/dL) Final Performing Location
--- OUTSIDE RECORDS SUMMARY | 2024-01-29 21:34 | External Medical Summary ---
Author Name Unknown Address Unknown Organization K01:[place] [facility] [place] [address] [place] [address] Laboratory Report Ordering Provider Test Date Status JENNY SHEETS 12/07/2023 17:02:20 Final [id number] Observation Date Value Abnormality Reference (Units ) Status Bacteria identified in Specimen by Culture 12/07/2023 17:02:20 No growth Final Gram Stain 12/07/2023 17:02:20 No organisms seen Final Test: Culture, Transfusion Reaction Product
Specimen Source: PLT Product
Specimen Type: Blood Bank Product or Transfusion Medicine Product
Specimen Date: 12/07/2023 5:02 PM
Result Date: 12/16/2023 12:48 PM
Result Status: Final result
Resulting Lab: [place] [facility] [place]
[address]
[place] [address]

CULTURE

No growth

STAIN

No organisms seen

null Performing Location [place] [facility] [place] [address] [place] [address]
--- OUTSIDE RECORDS SUMMARY | 2024-01-29 21:34 | External Medical Summary ---
Author Name Unknown Address Unknown Organization K01:LAB[facility]ORY [facility] [place] [address] [place] [facility] [place] [address] Laboratory Report Ordering Provider Test Date Status PHOEBE VILLARREALROSA MARIA 12/07/2023 07:25:00 Final Observation Date Value Abnormality Reference (Units ) Status BUN 12/07/2023 07:25:00 21 Above high normal 6-20 (mg/dL) Final Creatinine 12/07/2023 07:25:00 0.9 0.5-1.0 (mg/dL) Final Glomerular filtration rate/1.73 sq M.predicted [Volume Rate/Area] in Serum, Plasma or Blood by Creatinine-based formula (CKD-EPI) 12/07/2023 07:25:00 77 >=60 (mL/min) Final eGFR is calculated based on the CKD-EPI 2020 equation SODIUM 12/07/2023 07:25:00 137 135-146 (m mol/L) Final Potassium 12/07/2023 07:25:00 3.9 3.5-5.1 (m mol/L) Final Cl 12/07/2023 07:25:00 103 98-107 (mm ol/L) Final CO2 12/07/2023 07:25:00 23 22-32 (mmo l/L) Final Anion gap 12/07/2023 07:25:00 11 7-15 (mmol /L) Final Glucose 12/07/2023 07:25:00 201 Above high normal 70 -120 (mg/dL) Final Albumin 12/07/2023 07:25:00 3.9 3.8-5.0 (g /dL) Final AST (Aspartate aminotransferase) 12/07/2023 07:25:00 15 10-35 (U/L) Fin al Alk Phos 12/07/2023 07:25:00 63 35-130 (U/ L) Final Bilirubin, Total 12/07/2023 07:25:00 0.5 <=1 .2 (mg/dL) Final Calcium 12/07/2023 07:25:00 8.7 8.4-10.2 ( mg/dL) Final Protein 12/07/2023 07:25:00 6.4 6.0-8.3 (g /dL) Final ALT (Alanine aminotransferase) 12/07/2023 07:25:00 14 10-35 (U/L) Colin lee Performing Location LAB[facility]ORY [facility] [place] [facility] [address] [facility] [address]
--- OUTSIDE RECORDS SUMMARY | 2024-01-29 21:34 | External Medical Summary ---
Author Name Unknown Address Unknown Organization K01:LAB[facility]ATORY [facility] [place] - [address] [place] [address] Laboratory Report Ordering Provider Test Date Status CY DE ANDA II 12/05/2023 10:45:00 Final Observation Date Value Abnormality Reference (Units ) Status Troponin T 12/05/2023 10:45:00 24 Above high normal < =14 (ng/L) Final Performing Location [facility] - [address] [place] [address]
--- OUTSIDE RECORDS SUMMARY | 2024-01-29 21:34 | External Medical Summary ---
Author Name Unknown Address Unknown Organization : Laboratory Report Ordering Provider Test Date Status ELVIA DE DIOS 12/07/2023 21:22:40 Final Observation Date Value Abnormality Reference (Units ) Status Glucose Point of Care 12/07/2023 21:22:40 211 Above high normal 70-120 (mg/dL) Final Performing Location
--- OUTSIDE RECORDS SUMMARY | 2024-01-29 21:34 | External Medical Summary ---
Author Name Unknown Address Unknown Organization : Laboratory Report Ordering Provider Test Date Status ELVIA DE DIOS 12/06/2023 21:10:31 Final Observation Date Value Abnormality Reference (Units ) Status Glucose Point of Care 12/06/2023 21:10:31 260 Above high normal 70-120 (mg/dL) Final Performing Location
--- OUTSIDE RECORDS SUMMARY | 2024-01-29 21:34 | External Medical Summary ---
Author Name Unknown Address Unknown Organization : Laboratory Report Ordering Provider Test Date Status ELVIA DE DIOS 12/07/2023 16:12:50 Final Observation Date Value Abnormality Reference (Units ) Status Glucose Point of Care 12/07/2023 16:12:50 192 Above high normal 70-120 (mg/dL) Final Performing Location
--- OUTSIDE RECORDS SUMMARY | 2024-01-29 21:34 | External Medical Summary ---
Author Name Unknown Address Unknown Organization K01:LAB[facility]ATORY [facility] [place] [address] [place] [facility] [place] [address] Laboratory Report Ordering Provider Test Date Status PHOEBE VILLARREALROSA MARIA 12/06/2023 07:44:00 Final Observation Date Value Abnormality Reference (Units ) Status BUN 12/06/2023 07:44:00 20 6-20 (mg/dL) Final Creatinine 12/06/2023 07:44:00 0.8 0.5-1.0 (mg/dL) Final Glomerular filtration rate/1.73 sq M.predicted [Volume Rate/Area] in Serum, Plasma or Blood by Creatinine-based formula (CKD-EPI) 12/06/2023 07:44:00 81 >=60 (mL/min) Final eGFR is calculated based on the CKD-EPI 2020 equation SODIUM 12/06/2023 07:44:00 139 135-146 (m mol/L) Final Potassium 12/06/2023 07:44:00 3.7 3.5-5.1 (m mol/L) Final Cl 12/06/2023 07:44:00 103 98-107 (mm ol/L) Final CO2 12/06/2023 07:44:00 23 22-32 (mmo l/L) Final Anion gap 12/06/2023 07:44:00 13 7-15 (mmol /L) Final Glucose 12/06/2023 07:44:00 122 Above high normal 70 -120 (mg/dL) Final Albumin 12/06/2023 07:44:00 4.3 3.8-5.0 (g /dL) Final AST (Aspartate aminotransferase) 12/06/2023 07:44:00 21 10-35 (U/L) Fin al Alk Phos 12/06/2023 07:44:00 62 35-130 (U/ L) Final Bilirubin, Total 12/06/2023 07:44:00 0.6 <=1 .2 (mg/dL) Final Calcium 12/06/2023 07:44:00 8.9 8.4-10.2 ( mg/dL) Final Protein 12/06/2023 07:44:00 6.9 6.0-8.3 (g /dL) Final ALT (Alanine aminotransferase) 12/06/2023 07:44:00 17 10-35 (U/L) Colin lee Performing Location [facility]ORY [facility] [place] [facility] [address] [facility] [address]
--- OUTSIDE RECORDS SUMMARY | 2024-01-29 21:34 | External Medical Summary ---
Author Name Unknown Address Unknown Organization K01:LABORATORY [facility] [place] - [address] [place] [address] Laboratory Report Ordering Provider Test Date Status CY DE ANDA II 12/05/2023 11:52:00 Final Observation Date Value Abnormality Reference (Units ) Status Troponin T 12/05/2023 11:52:00 24 Above high normal < =14 (ng/L) Final Performing Location [facility] - [address] [place] [address]
--- OUTSIDE RECORDS SUMMARY | 2024-01-29 21:34 | External Medical Summary ---
Author Name Unknown Address Unknown Organization K01:[place]ORY [facility] [place] [facility] [address] [facility] [address] Laboratory Report Ordering Provider Test Date Status SONIA VILLARREAL 12/08/2023 06:13:00 Final Observation Date Value Abnormality Reference (Units ) Status WBC, Total 12/08/2023 06:13:00 0.36 Below lower panic limits 4.00-10.80 (K/uL) Final RBC 12/08/2023 06:13:00 2.59 3.85-5.15 (M/uL) Final Hemoglobin 12/08/2023 06:13:00 7.6 Below low normal 12.0-15.3 (g/dL) Final HCT 12/08/2023 06:13:00 22.2 Below low normal 36.0-45.2 (%) Final MCV 12/08/2023 06:13:00 85.7 81.5-97.5 (fL) Final MCH 12/08/2023 06:13:00 29.3 27.0-34.0 (pg) Final MCHC 12/08/2023 06:13:00 34.2 32.0-36.0 (g/dL) Final RDW 12/08/2023 06:13:00 17.1 11.5-15.5 (%) Final Platelets 12/08/2023 06:13:00 14 Below lower panic limits 140-400 (K/uL) Final MPV 12/08/2023 06:13:00 8.2 6.6-11.1 (fL) Final Nucleated erythrocytes/100 leukocytes [Ratio] in Blood by Automated count 12/08/2023 06:13:00 0 <=0 (/100 WBCs) Final Performing Location LABORATORY [facility] [place] [address] [place] [address]
--- OUTSIDE RECORDS SUMMARY | 2024-01-29 21:34 | External Medical Summary ---
Author Name Unknown Address Unknown Organization : Laboratory Report Ordering Provider Test Date Status ELVIA DE DIOS 12/08/2023 06:48:04 Final Observation Date Value Abnormality Reference (Units ) Status Glucose Point of Care 12/08/2023 06:48:04 246 Above high normal 70-120 (mg/dL) Final Performing Location
--- OUTSIDE RECORDS SUMMARY | 2024-01-29 21:34 | External Medical Summary ---
Author Name Unknown Address Unknown Organization K01:[facility]ORY [facility] - [address] [place] [address] Laboratory Report Ordering Provider Test Date Status SONIA VILLARREAL 12/07/2023 07:25:00 Final Observation Date Value Abnormality Reference (Units ) Status Phosphate 12/07/2023 07:25:00 3.3 2.5-4.8 (m g/dL) Final Performing Location [facility] - [address] [place] [address]
--- OUTSIDE RECORDS SUMMARY | 2024-01-29 21:34 | External Medical Summary ---
Author Name Unknown Address Unknown Organization K01:[facility] - [address] [place] [address] Laboratory Report Ordering Provider Test Date Status SONIA VILLARREAL 12/09/2023 06:43:00 Final Observation Date Value Abnormality Reference (Units ) Status Phosphate 12/09/2023 06:43:00 2.9 2.5-4.8 (m g/dL) Final Performing Location [facility] - [address] [place] [address]
--- OUTSIDE RECORDS SUMMARY | 2024-01-29 21:34 | External Medical Summary ---
Author Name Unknown Address Unknown Organization : Laboratory Report Ordering Provider Test Date Status ELVIA DE DIOS 12/06/2023 07:00:55 Final Observation Date Value Abnormality Reference (Units ) Status Glucose Point of Care 12/06/2023 07:00:55 128 Above high normal 70-120 (mg/dL) Final Performing Location
--- OUTSIDE RECORDS SUMMARY | 2024-01-29 21:34 | External Medical Summary ---
Author Name Unknown Address Unknown Organization : Laboratory Report Ordering Provider Test Date Status ELVIA DE DIOS 12/05/2023 11:03:40 Final Observation Date Value Abnormality Reference (Units ) Status Glucose Point of Care 12/05/2023 11:03:40 138 Above high normal 70-120 (mg/dL) Final Performing Location
--- OUTSIDE RECORDS SUMMARY | 2024-01-29 21:34 | External Medical Summary ---
Author Name Unknown Address Unknown Organization K01:LABORATORY [facility] [place] - [address] [facility] [address] Laboratory Report Ordering Provider Test Date Status SONIA VILLARREAL 12/08/2023 17:30:11 Final ADMITTED patient Observation Date Value Abnormality Reference (Units ) Status Adenovirus DNA [Presence] in Nasopharynx by WILLIAM with non-probe detection 12/08/2023 17:30:11 Negative Negative Final Human coronavirus 229E RNA [Presence] in Nasopharynx by WILLIAM with non-probe detection 12/08/2023 17:30:11 Negative Negative Final Human coronavirus HKU1 RNA [Presence] in Nasopharynx by WILLIAM with non-probe detection 12/08/2023 17:30:11 Negative Negative Final Human coronavirus NL63 RNA [Presence] in Nasopharynx by WILLIAM with non-probe detection 12/08/2023 17:30:11 Negative Negative Final Human coronavirus OC43 RNA [Presence] in Nasopharynx by WILLIAM with non-probe detection 12/08/2023 17:30:11 Negative Negative Final SARS-CoV-2 (COVID-19) RNA [Presence] in Nasopharynx by WILLIAM with non-probe detection 12/08/2023 17:30:11 Negative Negative Final Human metapneumovirus RNA [Presence] in Nasopharynx by WILLIAM with non-probe detection 12/08/2023 17:30:11 Negative Negative Final Rhinovirus+Enterovirus RNA [Presence] in Nasopharynx by WILLIAM with non-probe detection 12/08/2023 17:30:11 Negative Negative Final Influenza virus A RNA [Presence] in Nasopharynx by WILLIAM with non-probe detection 12/08/2023 17:30:11 Negative Negative Final Influenza virus B RNA [Presence] in Nasopharynx by WILLIAM with non-probe detection 12/08/2023 17:30:11 Negative Negative Final Parainfluenza virus 1 RNA [Presence] in Nasopharynx by WILLIAM with non-probe detection 12/08/2023 17:30:11 Negative Negative Final Parainfluenza virus 2 RNA [Presence] in Nasopharynx by WILLIAM with non-probe detection 12/08/2023 17:30:11 Negative Negative Final Parainfluenza virus 3 RNA [Presence] in Nasopharynx by WILLIAM with non-probe detection 12/08/2023 17:30:11 Negative Negative Final Parainfluenza virus 4 RNA [Presence] in Nasopharynx by WILLIAM with non-probe detection 12/08/2023 17:30:11 Negative Negative Final Respiratory syncytial virus RNA [Presence] in Nasopharynx by WILLIAM with non-probe detection 12/08/2023 17:30:11 Negative Negative Final Bordetella pertussis.pertussis toxin promoter region [Presence] in Nasopharynx by WILLIAM with non-probe detection 12/08/2023 17:30:11 Negative Negative Final Chlamydophila pneumoniae DNA [Presence] in Nasopharynx by WILLIAM with non-probe detection 12/08/2023 17:30:11 Negative Negative Final Mycoplasma pneumoniae DNA [Presence] in Nasopharynx by WILLIAM with non-probe detection 12/08/2023 17:30:11 Negative Negative Final Bordetella parapertussis [id number] DNA [Presence] in Nasopharynx by WILLIAM with non-probe detection 12/08/2023 17:30:11 Negative Negative Final
The primers that detect Rhinovirus may cross react with some Enterorviruses. The validation of bronchial specimens, tracheal aspirates, and throats for this assay was developed and performance characteristics determined by [employer]. The validation of alternate specimen types has not been cleared or approved by the U.S. Food and Drug Administration (FDA). It has been determined that such clearance or approval is not necessary. Performing Location LABORATORY [facility] [place] - [address] [facility] [address] [facility] [address]
--- OUTSIDE RECORDS SUMMARY | 2024-01-29 21:34 | External Medical Summary ---
Author Name Unknown Address Unknown Organization K01:[facility]ATORY [facility] - [address] [place] [address] Laboratory Report Ordering Provider Test Date Status SONIA VILLARREAL 12/07/2023 07:25:00 Final Observation Date Value Abnormality Reference (Units ) Status SYNC LEUKOCYTES IN BLOOD BY AUTOMATED COUNT 12/07/2023 07:25:00 0.91 Below lower panic limits 4.00-10.80 (K/uL) Final Neutrophils/100 leukocytes in Blood by Manual count 12/07/2023 07:25:00 1.0 Below low normal 40.0-75.0 (%) Final Lymphocytes/100 leukocytes in Blood by Manual count 12/07/2023 07:25:00 96.0 Above high normal 18.0-42.0 (%) Final Monocytes/100 leukocytes in Blood by Manual count 12/07/2023 07:25:00 1.0 1.0-11.0 (%) Final Blasts/100 leukocytes in Blood by Manual count 12/07/2023 07:25:00 2.0 Above high normal <=0.0 (%) Final Neutrophils [#/volume] in Blood by Manual count 12/07/2023 07:25:00 0.01 Below low normal 1.80-7.70 (K/uL) Final Lymphocytes [#/volume] in Blood by Manual count 12/07/2023 07:25:00 0.87 Below low normal 1.00-4.80 (K/uL) Final Monocytes [#/volume] in Blood by Manual count 12/07/2023 07:25:00 0.01 0.00-1.10 (K/uL) Final Blasts [#/volume] in Blood by Manual count 12/07/2023 07:25:00 0.02 Above high normal <=0.00 (K/uL) Final Performing Location [facility] - [address] [place] [address]
--- OUTSIDE RECORDS SUMMARY | 2024-01-29 21:34 | External Medical Summary ---
Author Name Unknown Address Unknown Organization K01:[facility]ORY [facility] [address] [place] [address] Laboratory Report Ordering Provider Test Date Status CHERELLESONIA 12/07/2023 15:33:00 Final Observation Date Value Abnormality Reference (Units ) Status Bacteria identified in Specimen by Culture 12/07/2023 15:33:00 No growth Final Test: Culture, Blood
Spe cimen Source: Blood, Venous
Specimen Type: Blood
Specimen Date: 12/07/2023 3:33 PM
Result Date: 12/12/2023 4:01 PM
Result Status: Final result
Resulting Lab: [facility]ORY [facility]
[address]
[place] [address]

CULTURE

No growth

null Performing Location LAB[facility]ATORY [facility] [place] [address] [place] [address]
--- OUTSIDE RECORDS SUMMARY | 2024-01-29 21:34 | External Medical Summary ---
Author Name Unknown Address Unknown Organization : Laboratory Report Ordering Provider Test Date Status ELVIA DE DIOS 12/09/2023 06:48:00 Final Observation Date Value Abnormality Reference (Units ) Status Glucose Point of Care 12/09/2023 06:48:00 178 Above high normal 70-120 (mg/dL) Final Performing Location
--- OUTSIDE RECORDS SUMMARY | 2024-01-29 21:34 | External Medical Summary ---
Author Name Unknown Address Unknown Organization K01:LABORATORY [facility] - [address] [place] [address] Laboratory Report Ordering Provider Test Date Status CHERELLEPHOEBE HERNANDEZROSA MARIA 12/06/2023 07:44:00 Final Observation Date Value Abnormality Reference (Units ) Status SYNC LEUKOCYTES IN BLOOD BY AUTOMATED COUNT 12/06/2023 07:44:00 0.94 Below lower panic limits 4.00-10.80 (K/uL) Final Neutrophils/100 leukocytes in Blood by Manual count 12/06/2023 07:44:00 1.0 Below low normal 40.0-75.0 (%) Final Lymphocytes/100 leukocytes in Blood by Manual count 12/06/2023 07:44:00 95.0 Above high normal 18.0-42.0 (%) Final Monocytes/100 leukocytes in Blood by Manual count 12/06/2023 07:44:00 2.0 1.0-11.0 (%) Final Blasts/100 leukocytes in Blood by Manual count 12/06/2023 07:44:00 2.0 Above high normal <=0.0 (%) Final Neutrophils [#/volume] in Blood by Manual count 12/06/2023 07:44:00 0.01 Below low normal 1.80-7.70 (K/uL) Final Lymphocytes [#/volume] in Blood by Manual count 12/06/2023 07:44:00 0.89 Below low normal 1.00-4.80 (K/uL) Final Monocytes [#/volume] in Blood by Manual count 12/06/2023 07:44:00 0.02 0.00-1.10 (K/uL) Final Blasts [#/volume] in Blood by Manual count 12/06/2023 07:44:00 0.02 Above high normal <=0.00 (K/uL) Final Performing Location [facility] - [address] [place] [address]
--- OUTSIDE RECORDS SUMMARY | 2024-01-29 21:34 | External Medical Summary ---
Author Name Unknown Address Unknown Organization K01:LAB[facility]ATORY [facility] [place] [address] [facility] [address] [facility] [address] Laboratory Report Ordering Provider Test Date Status SONIA VILLARREAL 12/09/2023 06:43:00 Final WBC < 0.60, WBC differential cancelled. Please call Client Services if differential is required. Observation Date Value Abnormality Reference (Units ) Status SYNC LEUKOCYTES IN BLOOD BY AUTOMATED COUNT 12/09/2023 06:43:00 0.56 Below lower panic limits 4.00-10.80 (K/uL) Final Performing Location [facility] - [address] [place] [address]
--- OUTSIDE RECORDS SUMMARY | 2024-01-29 21:34 | External Medical Summary ---
Author Name Unknown Address Unknown Organization K01:LABORATORY [facility] [place] - [facility] [address] [facility] [address] Laboratory Report Ordering Provider Test Date Status SONIA VILLARREAL 12/09/2023 06:43:00 Final Observation Date Value Abnormality Reference (Units ) Status WBC, Total 12/09/2023 06:43:00 0.56 Below lower panic limits 4.00-10.80 (K/uL) Final RBC 12/09/2023 06:43:00 2.62 3.85-5.15 (M/uL) Final Hemoglobin 12/09/2023 06:43:00 7.9 Below low normal 12.0-15.3 (g/dL) Final HCT 12/09/2023 06:43:00 22.6 Below low normal 36.0-45.2 (%) Final MCV 12/09/2023 06:43:00 86.3 81.5-97.5 (fL) Final MCH 12/09/2023 06:43:00 30.2 27.0-34.0 (pg) Final MCHC 12/09/2023 06:43:00 35.0 32.0-36.0 (g/dL) Final RDW 12/09/2023 06:43:00 16.6 11.5-15.5 (%) Final Platelets 12/09/2023 06:43:00 12 Below lower panic limits 140-400 (K/uL) Final MPV 12/09/2023 06:43:00 12.8 6.6-11.1 (fL) Final Nucleated erythrocytes/100 leukocytes [Ratio] in Blood by Automated count 12/09/2023 06:43:00 0 <=0 (/100 WBCs) Final Performing Location LABORATORY [facility] [place] - [address] [place] [address]
--- OUTSIDE RECORDS SUMMARY | 2024-01-29 21:34 | External Medical Summary | Summary of Care ---
Author Name Unknown Organization [facility] Address [address] [place] [address] Phone [phone] Care Team Providers Care Bridge Painter Helper Name Role Phone Ivonne French PA-C Primary Care Provider [phone] Encounter Details Date Type Department Care Team (Late st Contact Info) Description 09/09/2023 Telephone [facility] [address] [place] [address] Ivonne French PA-C [address] [place] [address] Allergies Active Allergy Reactions Criticality Noted Date Comments Adhesive Tape 04/21/2016 Glue off the old style medical tape. documented as of this encounter (statuses as of 12/09/2023) Medications Medication Sig Dispensed Refills Start Date End Date Status Aspirin 81 MG Tablet Take 1 Tablet by mouth in the morning. 0 Suspended DULoxetine HCl 60 MG Oral Capsule Delayed Release Particles (Cymbalta) Take 1 Capsule by mouth in the morning. 180 Capsule 0 3 Suspended Additional Information amLODIPine Besylate 2.5 MG Oral Tablet (Norvasc)Indicat ions:Essential hypertension with goal blood pressure less than 130/80 Take 1 Tablet by mouth in the morning. 90 Tablet 3 3 10/14/20 23 Discontinued(Ref ill) Insulin Glargine Solostar 100 UNIT/ML Subcutaneous Solution Pen-injector (Lantus SoloStar) Inject 30 Units under the skin at bedtime. 30 mL 3 3 09/17/20 23 Discontinued(Ref ill) Lactulose 10 GM/15ML Oral Solution (Constulose)Lety cations:Constipa tion, unspecified constipation type Take 30 mL by mouth in the morning and 30 mL at noon and 30 mL before bedtime. 240 mL 0 3 Suspended Additional Information Linzess 72 MCG Oral Capsule (linaCLOtide)Ind ications:Drug-in duced constipation Take 1 Capsule by mouth daily before breakfast. 90 Capsule 1 3 10/14/20 23 Discontinued(Ref ill) Melatonin 10 MG Oral Capsule Take 1 Capsule by mouth at bedtime. 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 135 Tablet 1 3 10/14/20 23 Discontinued(Ref ill) NovoLOG FlexPen 100 UNIT/ML Subcutaneous Solution Pen-injector (insulin aspart) Inject 20 Units under the skin in the morning and 20 Units at noon and 20 Units in the evening. Inject with meals. 30 mL 3 3 09/17/20 23 Discontinued(Ref ill) Omeprazole 20 MG Oral Capsule Delayed Release (PriLOSEC) Take 1 Capsule by mouth in the morning and 1 Capsule before bedtime. 180 Capsule 1 3 10/14/20 23 Discontinued(Ref ill) RBM TechnologiesTouch Delica Lancets 33G Use to test blood sugar three times daily E 11.9 300 Each 3 Suspended Additional Information [employer]Touch Verio w/Device Kit Use up to 3 times a day E11.9 1 Kit 0 3 Suspended Additional Information Pen [place] 32G X 4 MM Use as directed. Use to inject insulin 4 times daily 100 Each 3 Suspended Additional Information Triamcinolone Acetonide 0.1 % External Ointment (Aristocort)Lety cations:Contact dermatitis, unspecified contact dermatitis type, unspecified trigger Apply topically to affected area 2 times a day. Apply to hands and feet 80 g 2 3 Suspended Additional Information Furosemide 20 MG Oral Tablet (Lasix)Indicatio ns:Edema, unspecified type Take 1 Tablet by mouth once a day on Wednesday, Wednesday, and Wednesday only. 90 Tablet 3 3 11/24/19 24 Discontinued(End of Procedure) OneTouch Verio In Vitro Strip (Glucose Blood) Use up to 3 times a day E11.9 100 Strip 11 3 11/19/19 24 Discontinued(Ref ill) Levothyroxine Sodium 150 MCG Oral Tablet (Synthroid) One tab daily Wednesday through Wednesday - half tab daily Wednesday and wednesday 90 Tablet 1 3 Suspended Additional Information Mounjaro 7.5 MG/0.5ML Subcutaneous Solution Pen-injector (Tirzepatide)Ind ications:Type 2 diabetes mellitus with hemoglobin A1c goal of 7.0%-8.0% ([facility]),Compulsive eating patterns,Overwei ght (BMI 25.0-29.9) Inject 7.5 mg under the skin once a week. 2 mL 1 3 09/09/20 23 Discontinued Isosorbide Mononitrate ER 30 MG Oral Tablet Extended Release 24 Hour (Imdur) Take 1 Tablet by mouth in the morning. 30 Tablet 1 3 Suspended Additional Information Magnesium 400 MG Oral TabletIndication s:Restless legs syndrome Take 1 Tablet by mouth at bedtime. 90 Tablet 1 3 Suspended Additional Information Mounjaro 10 MG/0.5ML Subcutaneous Solution Pen-injector (Tirzepatide) Inject 10 mg under the skin once a week. 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 No 05/28/2020 Are you blind or do you have serious difficulty seeing, even when wearing glasses? No 05/28/2020 Do you have serious difficul ty walking or climbing stairs? (5 years old or older) No 05/28/2020 Do you have difficulty dress ing or bathing? (5 years old or older) No 05/28/2020 Because of a physical, menta l, or emotional condition, do you have difficulty doing errands alone such as visiting a doctor s office or shopping? (15 years old or older) No 05/28/20 Cognitive Status Response Date of Assessm ent Because of a physical, menta l, or emotional condition, do you have serious difficulty concentrating, remembering, or making decisions? (5 years old or older) No 05/28/2020 documented as of this encounter Miscellaneous Notes * Telephone Encounter - Mounika Sepulveda LPN - 09/10/2023 9:16 AM EDT Left a message on patients voicemail to cotton picking machine operator her [facility] at the [facility] and that it was bumped up to 10 mg. Phone number was given with any questions or concerns. * Telephone Encounter - Ivonne French PA-C - 09/09/2023 3:51 PM EDT [facility]-C 09/09/2023 3:51 PM * Telephone Encounter - Estephania Crenshaw LPN - 09/09/2023 2:26 PM EDT [facility] and [facility]'t have the 7.5 mg is stock and they don't have a projecteddate for any incoming stock of 7.5 mg. [facility]'t [facility] a [facility]-pay, but when she goes outside to another pharmacy she has to pay 25% of the the cost which is $258.55 out of pt's pocket. Pt was made aware. Pt was wondering if she should pay out of pocket for this one dose? And asked when you were going to bump her up to 10 mg? Thanks! Please advise. * Telephone Encounter - Ivonne French PA-C - 09/09/2023 1:09 PM EDT Pt 7.5 Gabriel was denied She has been getting up to now Can we check with [facility] to see if it needs PA? Ivonne French PA-C documented in this encounter Plan of Treatment Upcoming Encounters Date Type Department Care Team (Late st Contact Info) Description 12/16/2023 11:20 AM EST Office Visit [facility] [address] [place] [phone] Ivonne French PA-C [address] [place] [address] 12/16/2023 1:45 PM EST Office Visit Hematology/Oncology [facility] [place] [address] [place] [address] Shon Rice MD [address] [place] [address] 12/23/2023 1:00 PM EST Office Visit Neurology, [place] [address] [place] [phone] Oralia Glass MD [address] [place] [address] 12/29/2023 8:10 AM EST Pharmacy Pharmacy, [facility] [address] [facility] [place] [address] [facility] [address] [facility] [place] [address] 01/07/2024 10:00 AM EST Office Visit [facility] [address] [phone] Ivonne French PA-C [address] [facility] [place] [address] 01/31/2024 9:00 AM EDT Imaging Radiology [facility] [address] [facility] [address] [facility] [place] [address] 02/10/2024 11:40 AM EDT Office Visit [facility] [place] [address] [facility], [place] [phone] Ivonne French PA-C [address] [facility] [place] [address] 05/10/2024 8:15 AM EDT [facility] [address] [place] [address] Migel Ramires MD [address] [place] [address] Scheduled Procedures Name Priority Associated Diagnoses Date/Ti [...] 07/03/2020, Additional history exists B-12 12/25/2023 12/25/2022, 060 06/2022, 07/23/2021, Additional history exists Mammogram 01/28/2024 01/27/2023, 01/07, 08/03/2022, Additional history exists TSH 04/27/2024 04/27/2023, 12/09, 04/15/2022, Additional history exists Diabetic Eye Exam 05/06/2024 05/06/2023, , 01/21/2022, Additional history exists HbA1c 05/09/2024 11/09/2023, 08/0 06/2023, 04/27/2023, Additional history exists Albumin/Creatinine Ratio 11/15/2024 024, 12/25/2022, 09/16/2022, Additional history exists GFR 12/09/2024 12/09/2023, 11/10, 12/07/2023, Additional history exists PAP SMEAR-EVERY 3 YRS,AGES [...] this encounter Medical Devices Implanted Type Area Media Production Manager Device Identifier Shelf Expiration Date Model / Serial / Lot Lens Intraoc 21.0 - [id number] - [id number] Implanted:Qty : 1 on 07/06/2017 by Luis Eduardo Cole MD at [facility] Left: Eye [employer] 01/05/2022 [id number] / [id number] / Lens Intraoc 21.0 - [id number] - [id number] Implanted:Qty : 1 on 07/20/2017 by Luis Eduardo Cole MD at OR [facility] Right: Eye [employer] 01/05/2022 [id number] / [id number] / Syringe Prolaryn Del 1.0cc - [id number] Implanted:Qty : 1 on 11/20/2019 by Amber Jain MD at OR [facility] Right: Mouth [employer] 10/21/2021 [id number] / / [id number] Implant Silastic 7 Silicone Sw - [id number] Implanted:Qty : 1 on 05/28/2020 by Farhat Pate MD at OR [facility] Right: Throat [employer] [id number] / / documented as of this encounter Additional Health Concerns Infection Onset Date Last Indicated Resolved Time Respiratory Rule-Out 12/08/2023 12/08/2023 024 6:46 PM EST COVID-19 Rule-Out 12/08/2023 12/08/2023 12/08/2023 6:46 PM EST C. difficile Rule-Out 12/09/2023 12/09/20232023 1:49 PM EST documented as of this encounter Advance Directives Latest Code Status on File Code Status Date Activated Date Inactivated Comments No Code 11/24/2023 7:24 PM This order reflects the patients wishes and were consensually agreed upon. Question Answer Comments Discussion of Advance Directives occurred with: Patient Does the patient have a Living Will? No Does the patient have Health Care Power of Bed Manager? No Code Status History Code Status [...] and were consensually agreed upon. Care Teams Bridge Painter Helper Relationship Specialty Start Date End Date Ivonne French PA-C [address] [place] [address] PCP - General Physician Tire Technician 07/24/21 documented as of this encounter
--- OUTSIDE RECORDS SUMMARY | 2024-01-29 21:34 | External Medical Summary ---
Author Name Unknown Address Unknown Organization K01:LABORATORY [facility] [place] - [address] [facility] [place] [address] Laboratory Report Ordering Provider Test Date Status SONIA VILLARREAL 12/09/2023 06:42:00 Final Observation Date Value Abnormality Reference (Units ) Status Uric Acid 12/09/2023 06:42:00 2.8 2.4-5.7 (m g/dL) Final Performing Location LABORATORY [facility] [place] - [address] [place] [address]
--- OUTSIDE RECORDS SUMMARY | 2024-01-29 21:34 | External Medical Summary ---
Author Name Unknown Address Unknown Organization K01:[facility]ATORY [facility] - [address] [place] [address] Laboratory Report Ordering Provider Test Date Status CHERELLEPHOEBEROSA MARIA 12/08/2023 19:06:00 Final Observation Date Value Abnormality Reference (Units ) Status Bacteria identified in Specimen by Culture 12/08/2023 19:06:00 No growth Final Test: Culture, Blood (Site 2 )
Specimen Source: Blood, Venous
Specimen Type: Blood
Specimen Date: 12/08/2023 7:06 PM
Result Date: 12/13/2023 8:01 PM
Result Status: Final result
Resulting Lab: LABORATORY [facility]
[address]
[place] [address]

CULTURE

No growth

null Performing Location LABORATORY [facility] - [address] [place] [address]
--- OUTSIDE RECORDS SUMMARY | 2024-01-29 21:34 | External Medical Summary ---
Author Name Unknown Address Unknown Organization : Laboratory Report Ordering Provider Test Date Status ELVIA DE DIOS 12/07/2023 06:55:12 Final Observation Date Value Abnormality Reference (Units ) Status Glucose Point of Care 12/07/2023 06:55:12 176 Above high normal 70-120 (mg/dL) Final Performing Location
--- OUTSIDE RECORDS SUMMARY | 2024-01-29 21:34 | External Medical Summary ---
Author Name Unknown Address Unknown Organization K01:LABORATORY [facility] [place] - [address] [place] [address] Laboratory Report Ordering Provider Test Date Status SAGE RASHID 12/08/2023 08:48:00 Final Observation Date Value Abnormality Reference (Units ) Status Troponin T 12/08/2023 08:48:00 70 Above high normal < =14 (ng/L) Final Performing Location [facility] - [address] [place] [address]
--- OUTSIDE RECORDS SUMMARY | 2024-01-29 21:34 | External Medical Summary ---
Author Name Unknown Address Unknown Organization K01:[facility] [place] [address] [place] [address] Laboratory Report Ordering Provider Test Date Status CHERELLEPHOEBEROSA MARIA 12/08/2023 19:00:00 Final Observation Date Value Abnormality Reference (Units ) Status Bacteria identified in Specimen by Culture 12/08/2023 19:00:00 No growth Final Test: Culture, Blood
Spe cimen Source: Blood, Venous
Specimen Type: Blood
Specimen Date: 12/08/2023 7:00 PM
Result Date: 12/13/2023 8:01 PM
Result Status: Final result
Resulting Lab: [facility] [place]
[address]
[place] [address]

CULTURE

No growth

null Performing Location [facility] [place] [address] [place] [address]
--- OUTSIDE RECORDS SUMMARY | 2024-01-29 21:34 | External Medical Summary ---
Author Name Unknown Address Unknown Organization [id number]:LABORATORY [facility] [place] - [address] [facility] [place] [address] Laboratory Report Ordering Provider Test Date Status SONIA VILLARREAL 12/07/2023 07:26:00 Final Observation Date Value Abnormality Reference (Units ) Status Uric Acid 12/07/2023 07:26:00 2.4 2.4-5.7 (m g/dL) Final Performing Location LABORATORY [facility] [place] - [address] [place] [address]
--- OUTSIDE RECORDS SUMMARY | 2024-01-29 21:34 | External Medical Summary ---
Author Name Unknown Address Unknown Organization [id number]:LABORATORY [facility] [place] [facility] - [address] [place] [address] Laboratory Report Ordering Provider Test Date Status SONIA VILLARREAL 12/07/2023 07:25:00 Final Observation Date Value Abnormality Reference (Units ) Status ABO 12/07/2023 07:25:00 O Final RH 12/07/2023 07:25:00 Positive Final RED BLOOD CELL ANTIBODY SCREEN 12/07/2023 07:25:00 Negative Final SPECIMEN EXPIRATION DATE 12/07/2023 07:25:00 12/10/2023 23:59 Final Performing Location LABORATORY [facility] [place] [facility] - [address] [place] [address]
--- OUTSIDE RECORDS SUMMARY | 2024-01-29 21:34 | External Medical Summary ---
Author Name Unknown Address Unknown Organization [id number]:LABORATORY [facility] [place] - [address] [place] [facility] [place] [address] Laboratory Report Ordering Provider Test Date Status CHERELLEPHOEBE HERNANDEZROSA MARIA 12/09/2023 06:43:00 Final Observation Date Value Abnormality Reference (Units ) Status BUN 12/09/2023 06:43:00 24 Above high normal 6-20 (mg/dL) Final Creatinine 12/09/2023 06:43:00 1.2 Above high normal 0.5-1.0 (mg/dL) Final Glomerular filtration rate/1.73 sq M.predicted [Volume Rate/Area] in Serum, Plasma or Blood by Creatinine-based formula (CKD-EPI) 12/09/2023 06:43:00 54 Below low normal >=60 (mL/min) Final eGFR is calculated based on the CKD-EPI 2020 equation SODIUM 12/09/2023 06:43:00 137 135-146 (m mol/L) Final Potassium 12/09/2023 06:43:00 3.4 Below low normal 3.5 -5.1 (mmol/L) Final Cl 12/09/2023 06:43:00 101 98-107 (mm ol/L) Final CO2 12/09/2023 06:43:00 23 22-32 (mmo l/L) Final Anion gap 12/09/2023 06:43:00 13 7-15 (mmol /L) Final Glucose 12/09/2023 06:43:00 184 Above high normal 70 -120 (mg/dL) Final Albumin 12/09/2023 06:43:00 3.7 Below low normal 3.8 -5.0 (g/dL) Final AST (Aspartate aminotransferase) 12/09/2023 06:43:00 25 10-35 (U/L) Fin al Alk Phos 12/09/2023 06:43:00 61 35-130 (U/ L) Final Bilirubin, Total 12/09/2023 06:43:00 0.9 <=1 .2 (mg/dL) Final Calcium 12/09/2023 06:43:00 8.2 Below low normal 8.4 -10.2 (mg/dL) Final Protein 12/09/2023 06:43:00 6.6 6.0-8.3 (g /dL) Final ALT (Alanine aminotransferase) 12/09/2023 06:43:00 12 10-35 (U/L) Colin lee Performing Location LABORATORY [facility] [place] - [address] [facility] [address]
--- OUTSIDE RECORDS SUMMARY | 2024-01-29 21:34 | External Medical Summary ---
Author Name Unknown Address Unknown Organization K01:LABORATORY [facility] - [address] [place] [address] Laboratory Report Ordering Provider Test Date Status SONIA VILLARREAL 12/08/2023 06:13:00 Final Observation Date Value Abnormality Reference (Units ) Status COMMENT 12/08/2023 06:13:00 WBC < 0.60, WBC differential cancelled. Please call Client Services if differential is required. Final Performing Location LAB[facility]ATORY [facility] - [address] [place] [address]
--- OUTSIDE RECORDS SUMMARY | 2024-01-29 21:34 | External Medical Summary ---
Author Name Unknown Address Unknown Organization K01:LABORATORY [facility] [place] - [address] [place] [address] Laboratory Report Ordering Provider Test Date Status SONIA VILLARREAL 12/08/2023 06:13:00 Final Observation Date Value Abnormality Reference (Units ) Status Uric Acid 12/08/2023 06:13:00 2.6 2.4-5.7 (m g/dL) Final Performing Location LABORATORY [facility] [place] - [address] [place] [address]
--- OUTSIDE RECORDS SUMMARY | 2024-01-29 21:34 | External Medical Summary ---
Author Name Unknown Address Unknown Organization : Laboratory Report Ordering Provider Test Date Status ELVIA DE DIOS 12/05/2023 21:35:53 Final Observation Date Value Abnormality Reference (Units ) Status Glucose Point of Care 12/05/2023 21:35:53 300 Above high normal 70-120 (mg/dL) Final Performing Location
--- OUTSIDE RECORDS SUMMARY | 2024-01-29 21:34 | External Medical Summary ---
Author Name Unknown Address Unknown Organization : Laboratory Report Ordering Provider Test Date Status ELVIA DE DIOS 12/08/2023 16:31:17 Final Observation Date Value Abnormality Reference (Units ) Status Glucose Point of Care 12/08/2023 16:31:17 231 Above high normal 70-120 (mg/dL) Final Performing Location
--- OUTSIDE RECORDS SUMMARY | 2024-01-29 21:34 | External Medical Summary ---
Author Name Unknown Address Unknown Organization : Laboratory Report Ordering Provider Test Date Status ELVIA DE DIOS 12/09/2023 15:42:10 Final Observation Date Value Abnormality Reference (Units ) Status Glucose Point of Care 12/09/2023 15:42:10 200 Above high normal 70-120 (mg/dL) Final Performing Location
--- OUTSIDE RECORDS SUMMARY | 2024-01-29 21:34 | External Medical Summary ---
Author Name Unknown Address Unknown Organization K01:LABORATORY [facility] [place] - [address] [place] [address] Laboratory Report Ordering Provider Test Date Status SONIA VILLARREAL 12/06/2023 07:44:00 Final Observation Date Value Abnormality Reference (Units ) Status Uric Acid 12/06/2023 07:44:00 2.7 2.4-5.7 (m g/dL) Final Performing Location LABORATORY [facility] [place] - [address] [place] [address]
--- OUTSIDE RECORDS SUMMARY | 2024-01-29 21:34 | External Medical Summary ---
Author Name Unknown Address Unknown Organization K01:LABORATORY [facility] [place] - [address] [place] [address] Laboratory Report Ordering Provider Test Date Status PHOEBE VILLARREALROSA MARIA 12/08/2023 06:13:00 Final Observation Date Value Abnormality Reference (Units ) Status BUN 12/08/2023 06:13:00 24 Above high normal 6-20 (mg/dL) Final Creatinine 12/08/2023 06:13:00 1.0 0.5-1.0 (mg/dL) Final Glomerular filtration rate/1.73 sq M.predicted [Volume Rate/Area] in Serum, Plasma or Blood by Creatinine-based formula (CKD-EPI) 12/08/2023 06:13:00 64 >=60 (mL/min) Final eGFR is calculated based on the CKD-EPI 2020 equation SODIUM 12/08/2023 06:13:00 136 135-146 (m mol/L) Final Potassium 12/08/2023 06:13:00 4.1 3.5-5.1 (m mol/L) Final Cl 12/08/2023 06:13:00 101 98-107 (mm ol/L) Final CO2 12/08/2023 06:13:00 21 Below low normal 22- 32 (mmol/L) Final Anion gap 12/08/2023 06:13:00 14 7-15 (mmol /L) Final Glucose 12/08/2023 06:13:00 265 Above high normal 70 -120 (mg/dL) Final Albumin 12/08/2023 06:13:00 3.9 3.8-5.0 (g /dL) Final AST (Aspartate aminotransferase) 12/08/2023 06:13:00 20 10-35 (U/L) Fin al Alk Phos 12/08/2023 06:13:00 66 35-130 (U/ L) Final Bilirubin, Total 12/08/2023 06:13:00 0.7 <=1 .2 (mg/dL) Final Calcium 12/08/2023 06:13:00 8.4 8.4-10.2 ( mg/dL) Final Protein 12/08/2023 06:13:00 6.7 6.0-8.3 (g /dL) Final ALT (Alanine aminotransferase) 12/08/2023 06:13:00 14 10-35 (U/L) Colin lee Performing Location LABORATORY [facility] [place] - [facility] [address] [facility] [address]
--- OUTSIDE RECORDS SUMMARY | 2024-01-29 21:34 | External Medical Summary ---
Author Name Unknown Address Unknown Organization K01:[facility] [place] [facility] [address] [facility] [address] [facility] [address] Laboratory Report Ordering Provider Test Date Status SONIA VILLARREAL 12/07/2023 07:25:00 Final Observation Date Value Abnormality Reference (Units ) Status WBC, Total 12/07/2023 07:25:00 0.91 Below lower panic limits 4.00-10.80 (K/uL) Final RBC 12/07/2023 07:25:00 2.69 3.85-5.15 (M/uL) Final Hemoglobin 12/07/2023 07:25:00 7.9 Below low normal 12.0-15.3 (g/dL) Final HCT 12/07/2023 07:25:00 22.9 Below low normal 36.0-45.2 (%) Final MCV 12/07/2023 07:25:00 85.1 81.5-97.5 (fL) Final MCH 12/07/2023 07:25:00 29.4 27.0-34.0 (pg) Final MCHC 12/07/2023 07:25:00 34.5 32.0-36.0 (g/dL) Final RDW 12/07/2023 07:25:00 17.0 11.5-15.5 (%) Final Platelets 12/07/2023 07:25:00 19 Below lower panic limits 140-400 (K/uL) Final MPV 12/07/2023 07:25:00 10.6 6.6-11.1 (fL) Final Nucleated erythrocytes/100 leukocytes [Ratio] in Blood by Automated count 12/07/2023 07:25:00 0 <=0 (/100 WBCs) Final Performing Location [facility] [place] [address] [place] [address]
--- OUTSIDE RECORDS SUMMARY | 2024-01-29 21:34 | External Medical Summary ---
Author Name Unknown Address Unknown Organization K01:LABORATORY [facility] [place] - [address] [place] [address] Laboratory Report Ordering Provider Test Date Status CY DE ANDA II 12/05/2023 13:54:00 Final Observation Date Value Abnormality Reference (Units ) Status Troponin T 12/05/2023 13:54:00 20 Above high normal < =14 (ng/L) Final Performing Location LAB[facility] - [address] [place] [address]
--- OUTSIDE RECORDS SUMMARY | 2024-01-29 21:34 | External Medical Summary ---
Author Name Unknown Address Unknown Organization K01:LABORATORY [facility] [place] - [address] [facility] [address] [place] [address] Laboratory Report Ordering Provider Test Date Status ELVIA DE DIOS 12/07/2023 20:40:00 Final Observation Date Value Abnormality Reference (Units ) Status Lactic Acid, Whole Blood 12/07/2023 20:40:00 1.5 0.4-2.0 (mmol/L) Final Performing Location LABORATORY [facility] [place] - [address] [place] [address]
[2024-01-29 21:35] LABS: iSTAT Creatinine 1.4 mg/dl (0.6-1.3); iSTAT Hemoglobin 7.5 g/dl (12.0-16.0); iSTAT Ionized Calcium 1.13 mmol/l (1.12-1.32); iSTAT Potassium 4.3 mmol/L (3.3-5.0)
--- OUTSIDE RECORDS SUMMARY | 2024-01-29 21:35 | External Medical Summary ---
Author Name Unknown Address Unknown Organization : Laboratory Report Ordering Provider Test Date Status ELVIA DE DIOS 11/29/2023 15:54:04 Final Observation Date Value Abnormality Reference (Units ) Status Glucose Point of Care 11/29/2023 15:54:04 126 Above high normal 70-120 (mg/dL) Final Performing Location
--- OUTSIDE RECORDS SUMMARY | 2024-01-29 21:35 | External Medical Summary ---
Author Name Unknown Address Unknown Organization K01:LABORATORY [facility] [place] - [address] [facility] [place] [address] Laboratory Report Ordering Provider Test Date Status SONIA VILLARREAL 12/02/2023 06:35:00 Final Observation Date Value Abnormality Reference (Units ) Status Uric Acid 12/02/2023 06:35:00 2.6 2.4-5.7 (m g/dL) Final Performing Location LABORATORY [facility] [place] - [address] [place] [address]
--- OUTSIDE RECORDS SUMMARY | 2024-01-29 21:35 | External Medical Summary ---
Author Name Unknown Address Unknown Organization : Laboratory Report Ordering Provider Test Date Status SONIA VILLARREAL 12/03/2023 08:03:00 Final Observation Date Value Abnormality Reference (Units ) Status Performing Location
--- OUTSIDE RECORDS SUMMARY | 2024-01-29 21:35 | External Medical Summary ---
Author Name Unknown Address Unknown Organization K01:LAB[facility]ATORY [facility] - [address] [place] [address] Laboratory Report Ordering Provider Test Date Status SONIA VILLARREAL 12/03/2023 08:03:00 Final Observation Date Value Abnormality Reference (Units ) Status Phosphate 12/03/2023 08:03:00 4.0 2.5-4.8 (m g/dL) Final Performing Location LAB[facility] - [address] [place] [address]
--- OUTSIDE RECORDS SUMMARY | 2024-01-29 21:35 | External Medical Summary ---
Author Name Unknown Address Unknown Organization K01:LABORATORY [facility] - [address] [place] [address] Laboratory Report Ordering Provider Test Date Status SONIA VILLARREAL 12/04/2023 07:22:00 Final Observation Date Value Abnormality Reference (Units ) Status Phosphate 12/04/2023 07:22:00 4.0 2.5-4.8 (m g/dL) Final Performing Location LAB[facility] - [address] [place] [address]
--- OUTSIDE RECORDS SUMMARY | 2024-01-29 21:35 | External Medical Summary ---
Author Name Unknown Address Unknown Organization K01:LAB[facility]ATORY [facility] - [address] [place] [address] Laboratory Report Ordering Provider Test Date Status SONIA VILLARREAL 12/05/2023 06:50:00 Final Observation Date Value Abnormality Reference (Units ) Status Phosphate 12/05/2023 06:50:00 4.1 2.5-4.8 (m g/dL) Final Performing Location LAB[facility] - [address] [place] [address]
--- OUTSIDE RECORDS SUMMARY | 2024-01-29 21:35 | External Medical Summary ---
Author Name Unknown Address Unknown Organization K01:[facility] [place] [facility] [place] [address] [place] [address] [place] [address] Laboratory Report Ordering Provider Test Date Status SONIA VILLARREAL 12/03/2023 08:03:00 Final Observation Date Value Abnormality Reference (Units ) Status Uric Acid 12/03/2023 08:03:00 2.8 2.4-5.7 (m g/dL) Final Performing Location [facility] [place] [facility] [place] [address] [place] [address]
--- OUTSIDE RECORDS SUMMARY | 2024-01-29 21:35 | External Medical Summary ---
Author Name Unknown Address Unknown Organization K01:[facility] [place] [address] [place] [facility] [place] [address] Laboratory Report Ordering Provider Test Date Status PHOEBE VILLARREALROSA MARIA 12/04/2023 07:22:00 Final Observation Date Value Abnormality Reference (Units ) Status BUN 12/04/2023 07:22:00 25 Above high normal 6-20 (mg/dL) Final Creatinine 12/04/2023 07:22:00 1.0 0.5-1.0 (mg/dL) Final Glomerular filtration rate/1.73 sq M.predicted [Volume Rate/Area] in Serum, Plasma or Blood by Creatinine-based formula (CKD-EPI) 12/04/2023 07:22:00 66 >=60 (mL/min) Final eGFR is calculated based on the CKD-EPI 2020 equation SODIUM 12/04/2023 07:22:00 137 135-146 (m mol/L) Final Potassium 12/04/2023 07:22:00 4.1 3.5-5.1 (m mol/L) Final Cl 12/04/2023 07:22:00 102 98-107 (mm ol/L) Final CO2 12/04/2023 07:22:00 24 22-32 (mmo l/L) Final Anion gap 12/04/2023 07:22:00 11 7-15 (mmol /L) Final Glucose 12/04/2023 07:22:00 177 Above high normal 70 -120 (mg/dL) Final Albumin 12/04/2023 07:22:00 4.2 3.8-5.0 (g /dL) Final AST (Aspartate aminotransferase) 12/04/2023 07:22:00 21 10-35 (U/L) Fin al Alk Phos 12/04/2023 07:22:00 61 35-130 (U/ L) Final Bilirubin, Total 12/04/2023 07:22:00 0.6 <=1 .2 (mg/dL) Final Calcium 12/04/2023 07:22:00 9.2 8.4-10.2 ( mg/dL) Final Protein 12/04/2023 07:22:00 6.8 6.0-8.3 (g /dL) Final ALT (Alanine aminotransferase) 12/04/2023 07:22:00 15 10-35 (U/L) Colin lee Performing Location [facility] [facility] [place] [facility] [address] [facility] [address]
--- OUTSIDE RECORDS SUMMARY | 2024-01-29 21:35 | External Medical Summary ---
Author Name Unknown Address Unknown Organization : Laboratory Report Ordering Provider Test Date Status ELVIA DE DIOS 12/05/2023 06:47:33 Final Observation Date Value Abnormality Reference (Units ) Status Glucose Point of Care 12/05/2023 06:47:33 110 70-120 (mg/dL) Final Performing Location
--- OUTSIDE RECORDS SUMMARY | 2024-01-29 21:35 | External Medical Summary ---
Author Name Unknown Address Unknown Organization K01:LABORATORY [facility] [place] - [address] [place] [address] Laboratory Report Ordering Provider Test Date Status PHOEBE VILLARREALROSA MARIA 12/02/2023 06:35:00 Final Observation Date Value Abnormality Reference (Units ) Status BUN 12/02/2023 06:35:00 30 Above high normal 6-20 (mg/dL) Final Creatinine 12/02/2023 06:35:00 1.1 Above high normal 0.5-1.0 (mg/dL) Final Glomerular filtration rate/1.73 sq M.predicted [Volume Rate/Area] in Serum, Plasma or Blood by Creatinine-based formula (CKD-EPI) 12/02/2023 06:35:00 58 Below low normal >=60 (mL/min) Final eGFR is calculated based on the CKD-EPI 2020 equation SODIUM 12/02/2023 06:35:00 138 135-146 (m mol/L) Final Potassium 12/02/2023 06:35:00 3.9 3.5-5.1 (m mol/L) Final Cl 12/02/2023 06:35:00 103 98-107 (mm ol/L) Final CO2 12/02/2023 06:35:00 23 22-32 (mmo l/L) Final Anion gap 12/02/2023 06:35:00 12 7-15 (mmol /L) Final Glucose 12/02/2023 06:35:00 139 Above high normal 70 -120 (mg/dL) Final Albumin 12/02/2023 06:35:00 4.3 3.8-5.0 (g /dL) Final AST (Aspartate aminotransferase) 12/02/2023 06:35:00 24 10-35 (U/L) Fin al Alk Phos 12/02/2023 06:35:00 53 35-130 (U/ L) Final Bilirubin, Total 12/02/2023 06:35:00 0.6 <=1 .2 (mg/dL) Final Calcium 12/02/2023 06:35:00 9.3 8.4-10.2 ( mg/dL) Final Protein 12/02/2023 06:35:00 6.8 6.0-8.3 (g /dL) Final ALT (Alanine aminotransferase) 12/02/2023 06:35:00 12 10-35 (U/L) Colin lee Performing Location LABORATORY [facility] [place] - [address] [facility] [address]
--- OUTSIDE RECORDS SUMMARY | 2024-01-29 21:35 | External Medical Summary ---
Author Name Unknown Address Unknown Organization K01:LABORATORY [facility] - [address] [place] [address] Laboratory Report Ordering Provider Test Date Status CHERELLESONIA HERNANDEZ 12/04/2023 07:22:00 Final Observation Date Value Abnormality Reference (Units ) Status SYNC LEUKOCYTES IN BLOOD BY AUTOMATED COUNT 12/04/2023 07:22:00 1.06 Below low normal 4.00-10.80 (K/uL) Final Neutrophils/100 leukocytes in Blood by Manual count 12/04/2023 07:22:00 4.0 Below low normal 40.0-75.0 (%) Final Lymphocytes/100 leukocytes in Blood by Manual count 12/04/2023 07:22:00 93.0 Above high normal 18.0-42.0 (%) Final Monocytes/100 leukocytes in Blood by Manual count 12/04/2023 07:22:00 1.0 1.0-11.0 (%) Final Blasts/100 leukocytes in Blood by Manual count 12/04/2023 07:22:00 2.0 Above high normal <=0.0 (%) Final Neutrophils [#/volume] in Blood by Manual count 12/04/2023 07:22:00 0.04 Below low normal 1.80-7.70 (K/uL) Final Lymphocytes [#/volume] in Blood by Manual count 12/04/2023 07:22:00 0.99 Below low normal 1.00-4.80 (K/uL) Final Monocytes [#/volume] in Blood by Manual count 12/04/2023 07:22:00 0.01 0.00-1.10 (K/uL) Final Blasts [#/volume] in Blood by Manual count 12/04/2023 07:22:00 0.02 Above high normal <=0.00 (K/uL) Final Performing Location LABORATORY [facility] - [address] [place] [address]
--- OUTSIDE RECORDS SUMMARY | 2024-01-29 21:35 | External Medical Summary ---
Author Name Unknown Address Unknown Organization : Laboratory Report Ordering Provider Test Date Status ELVIA DE DIOS 11/30/2023 06:53:34 Final Observation Date Value Abnormality Reference (Units ) Status Glucose Point of Care 11/30/2023 06:53:34 121 Above high normal 70-120 (mg/dL) Final Performing Location
--- OUTSIDE RECORDS SUMMARY | 2024-01-29 21:35 | External Medical Summary ---
Author Name Unknown Address Unknown Organization : Laboratory Report Ordering Provider Test Date Status ELVIA DE DIOS 12/03/2023 06:33:35 Final Observation Date Value Abnormality Reference (Units ) Status Glucose Point of Care 12/03/2023 06:33:35 165 Above high normal 70-120 (mg/dL) Final Performing Location
--- OUTSIDE RECORDS SUMMARY | 2024-01-29 21:35 | External Medical Summary ---
Author Name Unknown Address Unknown Organization : Laboratory Report Ordering Provider Test Date Status ELVIA DE DIOS 12/03/2023 21:49:05 Final Observation Date Value Abnormality Reference (Units ) Status Glucose Point of Care 12/03/2023 21:49:05 197 Above high normal 70-120 (mg/dL) Final Performing Location
--- OUTSIDE RECORDS SUMMARY | 2024-01-29 21:35 | External Medical Summary ---
Author Name Unknown Address Unknown Organization K01:LABORATORY [facility] - [address] [place] [address] Laboratory Report Ordering Provider Test Date Status SONIA VILLARREAL 12/01/2023 07:03:00 Final Observation Date Value Abnormality Reference (Units ) Status Phosphate 12/01/2023 07:03:00 5.6 Above high normal 2. 5-4.8 (mg/dL) Final Performing Location LABORATORY [facility] - [address] [place] [address]
--- OUTSIDE RECORDS SUMMARY | 2024-01-29 21:35 | External Medical Summary ---
Author Name Unknown Address Unknown Organization : Laboratory Report Ordering Provider Test Date Status ELVIA DE DIOS 12/04/2023 11:05:43 Final Observation Date Value Abnormality Reference (Units ) Status Glucose Point of Care 12/04/2023 11:05:43 284 Above high normal 70-120 (mg/dL) Final Performing Location
--- OUTSIDE RECORDS SUMMARY | 2024-01-29 21:35 | External Medical Summary ---
Author Name Unknown Address Unknown Organization K01:LABORATORY [facility] [place] - [address] [facility] [place] [address] Laboratory Report Ordering Provider Test Date Status SONIA VILLARREAL 12/05/2023 06:50:00 Final Observation Date Value Abnormality Reference (Units ) Status WBC, Total 12/05/2023 06:50:00 1.13 Below low normal 4.00-10.80 (K/uL) Final RBC 12/05/2023 06:50:00 2.90 3.85-5.15 (M/uL) Final Hemoglobin 12/05/2023 06:50:00 8.5 Below low normal 12.0-15.3 (g/dL) Final HCT 12/05/2023 06:50:00 24.8 Below low normal 36.0-45.2 (%) Final MCV 12/05/2023 06:50:00 85.5 81.5-97.5 (fL) Final MCH 12/05/2023 06:50:00 29.3 27.0-34.0 (pg) Final MCHC 12/05/2023 06:50:00 34.3 32.0-36.0 (g/dL) Final RDW 12/05/2023 06:50:00 17.2 11.5-15.5 (%) Final Platelets 12/05/2023 06:50:00 30 Below low normal 140-400 (K/uL) Final MPV 12/05/2023 06:50:00 9.0 6.6-11.1 (fL) Final Nucleated erythrocytes/100 leukocytes [Ratio] in Blood by Automated count 12/05/2023 06:50:00 0 <=0 (/100 WBCs) Final Performing Location LABORATORY [facility] [place] - [address] [place] [address]
--- OUTSIDE RECORDS SUMMARY | 2024-01-29 21:35 | External Medical Summary ---
Author Name Unknown Address Unknown Organization : Laboratory Report Ordering Provider Test Date Status ELVIA DE DIOS 12/01/2023 16:19:31 Final Observation Date Value Abnormality Reference (Units ) Status Glucose Point of Care 12/01/2023 16:19:31 134 Above high normal 70-120 (mg/dL) Final Performing Location
--- OUTSIDE RECORDS SUMMARY | 2024-01-29 21:35 | External Medical Summary ---
Author Name Unknown Address Unknown Organization K01:[facility]ORY [facility] - [address] [facility] [address] Laboratory Report Ordering Provider Test Date Status KATINA VILLARREALPHUONGROSA MARIA 11/30/2023 08:08:00 Final Observation Date Value Abnormality Reference (Units ) Status SYNC LEUKOCYTES IN BLOOD BY AUTOMATED COUNT 11/30/2023 08:08:00 1.36 Below low normal 4.00-10.80 (K/uL) Final Neutrophils/100 leukocytes in Blood by Manual count 11/30/2023 08:08:00 3.0 Below low normal 40.0-75.0 (%) Final Lymphocytes/100 leukocytes in Blood by Manual count 11/30/2023 08:08:00 89.0 Above high normal 18.0-42.0 (%) Final Monocytes/100 leukocytes in Blood by Manual count 11/30/2023 08:08:00 1.0 1.0-11.0 (%) Final Eosinophils/100 leukocytes in Blood by Manual count 11/30/2023 08:08:00 2.0 0.0-6.0 (%) Final Metamyelocytes/100 leukocytes in Blood by Manual count 11/30/2023 08:08:00 1.0 Above high normal <=0.0 (%) Final Blasts/100 leukocytes in Blood by Manual count 11/30/2023 08:08:00 4.0 Above high normal <=0.0 (%) Final Neutrophils [#/volume] in Blood by Manual count 11/30/2023 08:08:00 0.04 Below low normal 1.80-7.70 (K/uL) Final Lymphocytes [#/volume] in Blood by Manual count 11/30/2023 08:08:00 1.21 1.00-4.80 (K/uL) Final Monocytes [#/volume] in Blood by Manual count 11/30/2023 08:08:00 0.01 0.00-1.10 (K/uL) Final Eosinophils [#/volume] in Blood by Manual count 11/30/2023 08:08:00 0.03 0.00-0.70 (K/uL) Final Metamyelocytes [#/volume] in Blood by Manual count 11/30/2023 08:08:00 0.01 Above high normal <=0.00 (K/uL) Final Blasts [#/volume] in Blood by Manual count 11/30/2023 08:08:00 0.05 Above high normal <=0.00 (K/uL) Final Performing Location LABORATORY [facility] [place] - [address] [facility] [address]
--- OUTSIDE RECORDS SUMMARY | 2024-01-29 21:35 | External Medical Summary ---
Author Name Unknown Address Unknown Organization : Laboratory Report Ordering Provider Test Date Status ELVIA DE DIOS 12/02/2023 10:27:46 Final Observation Date Value Abnormality Reference (Units ) Status Glucose Point of Care 12/02/2023 10:27:46 161 Above high normal 70-120 (mg/dL) Final Performing Location
--- OUTSIDE RECORDS SUMMARY | 2024-01-29 21:35 | External Medical Summary ---
Author Name Unknown Address Unknown Organization [id number]:LABORATORY [facility] [place] - [address] [place] [place] [address] Laboratory Report Ordering Provider Test Date Status PHOEBE VILLARREALROSA MARIA 12/01/2023 07:03:00 Final Observation Date Value Abnormality Reference (Units ) Status BUN 12/01/2023 07:03:00 27 Above high normal 6-20 (mg/dL) Final Creatinine 12/01/2023 07:03:00 1.2 Above high normal 0.5-1.0 (mg/dL) Final Glomerular filtration rate/1.73 sq M.predicted [Volume Rate/Area] in Serum, Plasma or Blood by Creatinine-based formula (CKD-EPI) 12/01/2023 07:03:00 53 Below low normal >=60 (mL/min) Final eGFR is calculated based on the CKD-EPI 2020 equation SODIUM 12/01/2023 07:03:00 141 135-146 (m mol/L) Final Potassium 12/01/2023 07:03:00 3.6 3.5-5.1 (m mol/L) Final Cl 12/01/2023 07:03:00 103 98-107 (mm ol/L) Final CO2 12/01/2023 07:03:00 25 22-32 (mmo l/L) Final Anion gap 12/01/2023 07:03:00 13 7-15 (mmol /L) Final Glucose 12/01/2023 07:03:00 108 70-120 (mg /dL) Final Albumin 12/01/2023 07:03:00 4.3 3.8-5.0 (g /dL) Final AST (Aspartate aminotransferase) 12/01/2023 07:03:00 26 10-35 (U/L) Final Alk Phos 12/01/2023 07:03:00 52 35-130 (U/ L) Final Bilirubin, Total 12/01/2023 07:03:00 0.6 <=1 .2 (mg/dL) Final Calcium 12/01/2023 07:03:00 9.4 8.4-10.2 ( mg/dL) Final Protein 12/01/2023 07:03:00 6.9 6.0-8.3 (g /dL) Final ALT (Alanine aminotransferase) 12/01/2023 07:03:00 13 10-35 (U/L) Final Performing Location LABORATORY [facility] [place] - [address] [facility] [address]
--- OUTSIDE RECORDS SUMMARY | 2024-01-29 21:35 | External Medical Summary ---
Author Name Unknown Address Unknown Organization : Laboratory Report Ordering Provider Test Date Status ELVIA DE DIOS 12/03/2023 11:27:19 Final Observation Date Value Abnormality Reference (Units ) Status Glucose Point of Care 12/03/2023 11:27:19 163 Above high normal 70-120 (mg/dL) Final Performing Location
--- OUTSIDE RECORDS SUMMARY | 2024-01-29 21:35 | External Medical Summary ---
Author Name Unknown Address Unknown Organization : Laboratory Report Ordering Provider Test Date Status ELVIA DE DIOS 12/03/2023 16:22:57 Final Observation Date Value Abnormality Reference (Units ) Status Glucose Point of Care 12/03/2023 16:22:57 196 Above high normal 70-120 (mg/dL) Final Performing Location
--- OUTSIDE RECORDS SUMMARY | 2024-01-29 21:35 | External Medical Summary ---
Author Name Unknown Address Unknown Organization K01:LABORATORY [facility] [place] [address] [facility] [place] [address] Laboratory Report Ordering Provider Test Date Status SONIA VILLARREAL 11/30/2023 08:08:00 Final Observation Date Value Abnormality Reference (Units ) Status WBC, Total 11/30/2023 08:08:00 1.36 Below low normal 4.00-10.80 (K/uL) Final RBC 11/30/2023 08:08:00 3.95 3.85-5.15 (M/uL) Final Hemoglobin 11/30/2023 08:08:00 11.3 Below low normal 12.0-15.3 (g/dL) Final HCT 11/30/2023 08:08:00 34.2 Below low normal 36.0-45.2 (%) Final MCV 11/30/2023 08:08:00 86.6 81.5-97.5 (fL) Final MCH 11/30/2023 08:08:00 28.6 27.0-34.0 (pg) Final MCHC 11/30/2023 08:08:00 33.0 32.0-36.0 (g/dL) Final RDW 11/30/2023 08:08:00 18.4 11.5-15.5 (%) Final Platelets 11/30/2023 08:08:00 92 Below low normal 140-400 (K/uL) Final MPV 11/30/2023 08:08:00 8.1 6.6-11.1 (fL) Final Nucleated erythrocytes/100 leukocytes [Ratio] in Blood by Automated count 11/30/2023 08:08:00 0 <=0 (/100 WBCs) Final Performing Location LABORATORY [facility] - [address] [place] [address]
--- OUTSIDE RECORDS SUMMARY | 2024-01-29 21:35 | External Medical Summary ---
Author Name Unknown Address Unknown Organization K01:[facility]ORY [facility] - [address] [facility] [address] Laboratory Report Ordering Provider Test Date Status SONIA VILLARREAL 12/01/2023 07:04:00 Final Observation Date Value Abnormality Reference (Units ) Status SYNC LEUKOCYTES IN BLOOD BY AUTOMATED COUNT 12/01/2023 07:04:00 1.70 Below low normal 4.00-10.80 (K/uL) Final Neutrophils/100 leukocytes in Blood by Manual count 12/01/2023 07:04:00 3.0 Below low normal 40.0-75.0 (%) Final Lymphocytes/100 leukocytes in Blood by Manual count 12/01/2023 07:04:00 85.0 Above high normal 18.0-42.0 (%) Final Monocytes/100 leukocytes in Blood by Manual count 12/01/2023 07:04:00 6.0 1.0-11.0 (%) Final Eosinophils/100 leukocytes in Blood by Manual count 12/01/2023 07:04:00 2.0 0.0-6.0 (%) Final Blasts/100 leukocytes in Blood by Manual count 12/01/2023 07:04:00 4.0 Above high normal <=0.0 (%) Final Neutrophils [#/volume] in Blood by Manual count 12/01/2023 07:04:00 0.05 Below low normal 1.80-7.70 (K/uL) Final Lymphocytes [#/volume] in Blood by Manual count 12/01/2023 07:04:00 1.45 1.00-4.80 (K/uL) Final Monocytes [#/volume] in Blood by Manual count 12/01/2023 07:04:00 0.10 0.00-1.10 (K/uL) Final Eosinophils [#/volume] in Blood by Manual count 12/01/2023 07:04:00 0.03 0.00-0.70 (K/uL) Final Blasts [#/volume] in Blood by Manual count 12/01/2023 07:04:00 0.07 Above high normal <=0.00 (K/uL) Final Variant lymphocytes [Presence] in Blood by Light microscopy 12/01/2023 07:04:00 Present Abnormal None Seen Final Performing Location LABORATORY [facility] [place] - [address] [facility] [address]
--- OUTSIDE RECORDS SUMMARY | 2024-01-29 21:35 | External Medical Summary ---
Author Name Unknown Address Unknown Organization : Laboratory Report Ordering Provider Test Date Status ELVIA DE DIOS 12/01/2023 21:43:11 Final Observation Date Value Abnormality Reference (Units ) Status Glucose Point of Care 12/01/2023 21:43:11 155 Above high normal 70-120 (mg/dL) Final Performing Location
--- OUTSIDE RECORDS SUMMARY | 2024-01-29 21:35 | External Medical Summary ---
Author Name Unknown Address Unknown Organization K01:LABORATORY [facility] - [address] [facility] [address] Laboratory Report Ordering Provider Test Date Status SONIA VILLARREAL 12/02/2023 06:35:00 Final Observation Date Value Abnormality Reference (Units ) Status SYNC LEUKOCYTES IN BLOOD BY AUTOMATED COUNT 12/02/2023 06:35:00 1.43 Below low normal 4.00-10.80 (K/uL) Final Neutrophils/100 leukocytes in Blood by Manual count 12/02/2023 06:35:00 1.0 Below low normal 40.0-75.0 (%) Final Lymphocytes/100 leukocytes in Blood by Manual count 12/02/2023 06:35:00 90.0 Above high normal 18.0-42.0 (%) Final Known AML. Monocytes/100 leukocytes in Blood by Manual count 12/02/2023 06:35:00 2.0 1.0-11.0 (%) Final Eosinophils/100 leukocytes in Blood by Manual count 12/02/2023 06:35:00 4.0 0.0-6.0 (%) Final Blasts/100 leukocytes in Blood by Manual count 12/02/2023 06:35:00 3.0 Above high normal <=0.0 (%) Final Neutrophils [#/volume] in Blood by Manual count 12/02/2023 06:35:00 0.01 Below low normal 1.80-7.70 (K/uL) Final Lymphocytes [#/volume] in Blood by Manual count 12/02/2023 06:35:00 1.29 1.00-4.80 (K/uL) Alexa l Monocytes [#/volume] in Blood by Manual count 12/02/2023 06:35:00 0.03 0.00-1.10 (K /uL) Final Eosinophils [#/volume] in Blood by Manual count 12/02/2023 06:35:00 0.06 0.00-0.70 (K/uL) Alexa l Blasts [#/volume] in Blood by Manual count 12/02/2023 06:35:00 0.04 Above high normal <=0.00 (K/uL) Final Performing Location LABORATORY [facility] [place] - [address] [facility] [address]
--- OUTSIDE RECORDS SUMMARY | 2024-01-29 21:35 | External Medical Summary ---
Author Name Unknown Address Unknown Organization : Laboratory Report Ordering Provider Test Date Status ELVIA DE DIOS 12/04/2023 21:01:26 Final Observation Date Value Abnormality Reference (Units ) Status Glucose Point of Care 12/04/2023 21:01:26 223 Above high normal 70-120 (mg/dL) Final Performing Location
--- OUTSIDE RECORDS SUMMARY | 2024-01-29 21:35 | External Medical Summary ---
Author Name Unknown Address Unknown Organization K01:LABORATORY [address] [facility] [address] Laboratory Report Ordering Provider Test Date Status SANJU SAHU 11/30/2023 08:08:00 Final Observation Date Value Abnormality Reference (Units ) Status HIV 1+2 Ab+HIV1 p24 Ag [Presence] in Serum or Plasma by Immunoassay 11/30/2023 08:08:00 Negative Negative Final Negative HIV-1/2 antigen and antibody screening tset results usually indicate the absence of HIV-1 and HIV-2 infection. However, such negative results do not rule-out acute HIV infection. If acute HIV-1 infection is highly suspected, it is recommended that a specimen be submitted for detection of HIV-1 RNA. Performing Location LABORATORY [facility] [place] [address] [facility] [address]
--- OUTSIDE RECORDS SUMMARY | 2024-01-29 21:35 | External Medical Summary ---
Author Name Unknown Address Unknown Organization : Laboratory Report Ordering Provider Test Date Status ELVIA DE DIOS 12/01/2023 06:34:17 Final Observation Date Value Abnormality Reference (Units ) Status Glucose Point of Care 12/01/2023 06:34:17 118 70-120 (mg/dL) Final Performing Location
--- OUTSIDE RECORDS SUMMARY | 2024-01-29 21:35 | External Medical Summary ---
Author Name Unknown Address Unknown Organization K01:LABORATORY [facility] - [address] [place] [address] Laboratory Report Ordering Provider Test Date Status SONIA VILLARREAL 12/01/2023 07:04:00 Final Observation Date Value Abnormality Reference (Units ) Status ABO 12/01/2023 07:04:00 O Final RH 12/01/2023 07:04:00 Positive Final RED BLOOD CELL ANTIBODY SCREEN 12/01/2023 07:04:00 Negative Final SPECIMEN EXPIRATION DATE 12/01/2023 07:04:00 12/04/2023 23:59 Final Performing Location LABORATORY [facility] - [address] [place] [address]
--- OUTSIDE RECORDS SUMMARY | 2024-01-29 21:35 | External Medical Summary ---
Author Name Unknown Address Unknown Organization : Laboratory Report Ordering Provider Test Date Status ELVIA DE DIOS 11/29/2023 21:32:13 Final Observation Date Value Abnormality Reference (Units ) Status Glucose Point of Care 11/29/2023 21:32:13 132 Above high normal 70-120 (mg/dL) Final Performing Location
--- OUTSIDE RECORDS SUMMARY | 2024-01-29 21:35 | External Medical Summary ---
Author Name Unknown Address Unknown Organization : Laboratory Report Ordering Provider Test Date Status ELVIA DE DIOS 12/04/2023 16:14:57 Final Observation Date Value Abnormality Reference (Units ) Status Glucose Point of Care 12/04/2023 16:14:57 228 Above high normal 70-120 (mg/dL) Final Performing Location
--- OUTSIDE RECORDS SUMMARY | 2024-01-29 21:35 | External Medical Summary ---
Author Name Unknown Address Unknown Organization : Laboratory Report Ordering Provider Test Date Status ELVIA DE DIOS 11/30/2023 21:34:02 Final Observation Date Value Abnormality Reference (Units ) Status Glucose Point of Care 11/30/2023 21:34:02 126 Above high normal 70-120 (mg/dL) Final Performing Location
--- OUTSIDE RECORDS SUMMARY | 2024-01-29 21:35 | External Medical Summary ---
Author Name Unknown Address Unknown Organization K01:LABORATORY [facility] - [address] [facility] [address] [facility] [address] Laboratory Report Ordering Provider Test Date Status CHERELLEKATINAPHUONGROSA MARIA 12/05/2023 06:50:00 Final Observation Date Value Abnormality Reference (Units ) Status SYNC LEUKOCYTES IN BLOOD BY AUTOMATED COUNT 12/05/2023 06:50:00 1.13 Below low normal 4.00-10.80 (K/uL) Final Neutrophils/100 leukocytes in Blood by Manual count 12/05/2023 06:50:00 2.0 Below low normal 40.0-75.0 (%) Final Lymphocytes/100 leukocytes in Blood by Manual count 12/05/2023 06:50:00 90.0 Above high normal 18.0-42.0 (%) Final Monocytes/100 leukocytes in Blood by Manual count 12/05/2023 06:50:00 8.0 1.0-11.0 (%) Final Neutrophils [#/volume] in Blood by Manual count 12/05/2023 06:50:00 0.02 Below low normal 1.80-7.70 (K/uL) Final Lymphocytes [#/volume] in Blood by Manual count 12/05/2023 06:50:00 1.02 1.00-4.80 (K/uL) Final Monocytes [#/volume] in Blood by Manual count 12/05/2023 06:50:00 0.09 0.00-1.10 (K/uL) Final Performing Location [facility] [address] [facility] [address]
--- OUTSIDE RECORDS SUMMARY | 2024-01-29 21:35 | External Medical Summary ---
Author Name Unknown Address Unknown Organization K01:LABORATORY [address] [facility] [address] Laboratory Report Ordering Provider Test Date Status SANJU SAHU 12/01/2023 07:03:00 Final Observation Date Value Abnormality Reference (Units ) Status HIV 1+2 Ab+HIV1 p24 Ag [Presence] in Serum or Plasma by Immunoassay 12/01/2023 07:03:00 Negative Negative Final Negative HIV-1/2 antigen and antibody screening tset results usually indicate the absence of HIV-1 and HIV-2 infection. However, such negative results do not rule-out acute HIV infection. If acute HIV-1 infection is highly suspected, it is recommended that a specimen be submitted for detection of HIV-1 RNA. Performing Location LAB[place]ATORY [facility] [place] [address] [facility] [address]
--- OUTSIDE RECORDS SUMMARY | 2024-01-29 21:35 | External Medical Summary ---
Author Name Unknown Address Unknown Organization K01:LABORATORY [facility] [place] [facility] - [address] [place] [address] Laboratory Report Ordering Provider Test Date Status SONIA VILLARREAL 12/04/2023 07:22:00 Final Observation Date Value Abnormality Reference (Units ) Status ABO 12/04/2023 07:22:00 O Final RH 12/04/2023 07:22:00 Positive Final RED BLOOD CELL ANTIBODY SCREEN 12/04/2023 07:22:00 Negative Final SPECIMEN EXPIRATION DATE 12/04/2023 07:22:00 12/07/2023 23:59 Final Performing Location LABORATORY [facility] [place] [facility] - [address] [place] [address]
--- OUTSIDE RECORDS SUMMARY | 2024-01-29 21:35 | External Medical Summary ---
Author Name Unknown Address Unknown Organization K01:LABORATORY [facility] [place] - [address] [facility] [address] [facility] [address] Laboratory Report Ordering Provider Test Date Status SONIA IVLLARREAL 12/02/2023 06:35:00 Final Observation Date Value Abnormality Reference (Units ) Status WBC, Total 12/02/2023 06:35:00 1.43 Below low normal 4.00-10.80 (K/uL) Final RBC 12/02/2023 06:35:00 3.30 3.85-5.15 (M/uL) Final Hemoglobin 12/02/2023 06:35:00 9.5 Below low normal 12.0-15.3 (g/dL) Final HCT 12/02/2023 06:35:00 28.4 Below low normal 36.0-45.2 (%) Final MCV 12/02/2023 06:35:00 86.1 81.5-97.5 (fL) Final MCH 12/02/2023 06:35:00 28.8 27.0-34.0 (pg) Final MCHC 12/02/2023 06:35:00 33.5 32.0-36.0 (g/dL) Final RDW 12/02/2023 06:35:00 18.1 11.5-15.5 (%) Final Platelets 12/02/2023 06:35:00 65 Below low normal 140-400 (K/uL) Final MPV 12/02/2023 06:35:00 8.3 6.6-11.1 (fL) Final Nucleated erythrocytes/100 leukocytes [Ratio] in Blood by Automated count 12/02/2023 06:35:00 0 <=0 (/100 WBCs) Final Performing Location LABORATORY [facility] [place] - [address] [place] [address]
--- OUTSIDE RECORDS SUMMARY | 2024-01-29 21:35 | External Medical Summary ---
Author Name Unknown Address Unknown Organization K01:[facility] - [address] [place] [address] Laboratory Report Ordering Provider Test Date Status SONIA VILLARREAL 12/02/2023 06:35:00 Final Observation Date Value Abnormality Reference (Units ) Status Phosphate 12/02/2023 06:35:00 4.6 2.5-4.8 (m g/dL) Final Performing Location LAB[facility]ATORY [facility] - [address] [place] [address]
--- OUTSIDE RECORDS SUMMARY | 2024-01-29 21:35 | External Medical Summary ---
Author Name Unknown Address Unknown Organization K01:[place] [facility] [place] [address] [place] [facility] [place] [address] Laboratory Report Ordering Provider Test Date Status PHOEBE VILLARREALROSA MARIA 11/30/2023 08:08:00 Final Observation Date Value Abnormality Reference (Units ) Status BUN 11/30/2023 08:08:00 17 6-20 (mg/dL) Final Creatinine 11/30/2023 08:08:00 0.8 0.5-1.0 (mg/dL) Final Glomerular filtration rate/1.73 sq M.predicted [Volume Rate/Area] in Serum, Plasma or Blood by Creatinine-based formula (CKD-EPI) 11/30/2023 08:08:00 81 >=60 (mL/min) Final eGFR is calculated based on the CKD-EPI 2020 equation SODIUM 11/30/2023 08:08:00 139 135-146 (m mol/L) Final Potassium 11/30/2023 08:08:00 3.7 3.5-5.1 (m mol/L) Final Cl 11/30/2023 08:08:00 100 98-107 (mm ol/L) Final CO2 11/30/2023 08:08:00 25 22-32 (mmo l/L) Final Anion gap 11/30/2023 08:08:00 14 7-15 (mmol /L) Final Glucose 11/30/2023 08:08:00 123 Above high normal 70 -120 (mg/dL) Final Albumin 11/30/2023 08:08:00 4.8 3.8-5.0 (g /dL) Final AST (Aspartate aminotransferase) 11/30/2023 08:08:00 32 10-35 (U/L) Fin al Alk Phos 11/30/2023 08:08:00 58 35-130 (U/ L) Final Bilirubin, Total 11/30/2023 08:08:00 0.7 <=1 .2 (mg/dL) Final Calcium 11/30/2023 08:08:00 9.7 8.4-10.2 ( mg/dL) Final Protein 11/30/2023 08:08:00 7.9 6.0-8.3 (g /dL) Final ALT (Alanine aminotransferase) 11/30/2023 08:08:00 13 10-35 (U/L) Colin lee Performing Location [place] [facility] [place] [facility] [address] [facility] [address]
--- OUTSIDE RECORDS SUMMARY | 2024-01-29 21:35 | External Medical Summary ---
Author Name Unknown Address Unknown Organization K01:LABORATORY [facility] [place] - [address] [facility] [place] [address] Laboratory Report Ordering Provider Test Date Status PHOEBE VILLARREALROSA MARIA 12/05/2023 06:50:00 Final Observation Date Value Abnormality Reference (Units ) Status BUN 12/05/2023 06:50:00 22 Above high normal 6-20 (mg/dL) Final Creatinine 12/05/2023 06:50:00 1.0 0.5-1.0 (mg/dL) Final Glomerular filtration rate/1.73 sq M.predicted [Volume Rate/Area] in Serum, Plasma or Blood by Creatinine-based formula (CKD-EPI) 12/05/2023 06:50:00 64 >=60 (mL/min) Final eGFR is calculated based on the CKD-EPI 2020 equation SODIUM 12/05/2023 06:50:00 140 135-146 (m mol/L) Final Potassium 12/05/2023 06:50:00 4.0 3.5-5.1 (m mol/L) Final Cl 12/05/2023 06:50:00 105 98-107 (mm ol/L) Final CO2 12/05/2023 06:50:00 26 22-32 (mmo l/L) Final Anion gap 12/05/2023 06:50:00 9 7-15 (mmol /L) Final Glucose 12/05/2023 06:50:00 105 70-120 (mg /dL) Final Albumin 12/05/2023 06:50:00 4.0 3.8-5.0 (g /dL) Final AST (Aspartate aminotransferase) 12/05/2023 06:50:00 23 10-35 (U/L) Final Alk Phos 12/05/2023 06:50:00 60 35-130 (U/ L) Final Bilirubin, Total 12/05/2023 06:50:00 0.6 <=1 .2 (mg/dL) Final Calcium 12/05/2023 06:50:00 9.0 8.4-10.2 ( mg/dL) Final Protein 12/05/2023 06:50:00 6.8 6.0-8.3 (g /dL) Final ALT (Alanine aminotransferase) 12/05/2023 06:50:00 17 10-35 (U/L) Final Performing Location LABORATORY [facility] [place] - [address] [facility] [address]
--- OUTSIDE RECORDS SUMMARY | 2024-01-29 21:35 | External Medical Summary ---
Author Name Unknown Address Unknown Organization : Laboratory Report Ordering Provider Test Date Status ELVIA DE DIOS 11/30/2023 16:10:42 Final Observation Date Value Abnormality Reference (Units ) Status Glucose Point of Care 11/30/2023 16:10:42 171 Above high normal 70-120 (mg/dL) Final Performing Location
--- OUTSIDE RECORDS SUMMARY | 2024-01-29 21:35 | External Medical Summary ---
Author Name Unknown Address Unknown Organization : Laboratory Report Ordering Provider Test Date Status ELVIA DE DIOS 12/02/2023 07:02:10 Final Observation Date Value Abnormality Reference (Units ) Status Glucose Point of Care 12/02/2023 07:02:10 140 Above high normal 70-120 (mg/dL) Final Performing Location
--- OUTSIDE RECORDS SUMMARY | 2024-01-29 21:35 | External Medical Summary ---
Author Name Unknown Address Unknown Organization K01:LABORATORY [facility] - [address] [place] [address] Laboratory Report Ordering Provider Test Date Status SONIA VILLARREAL 11/30/2023 08:08:00 Final Observation Date Value Abnormality Reference (Units ) Status Phosphate 11/30/2023 08:08:00 5.1 Above high normal 2. 5-4.8 (mg/dL) Final Performing Location LABORATORY [facility] - [address] [place] [address]
--- OUTSIDE RECORDS SUMMARY | 2024-01-29 21:35 | External Medical Summary ---
Author Name Unknown Address Unknown Organization K01:LABORATORY [facility] [place] - [address] [facility] [address] [facility] [address] Laboratory Report Ordering Provider Test Date Status SONIA VILLARREAL 12/01/2023 07:04:00 Final Observation Date Value Abnormality Reference (Units ) Status WBC, Total 12/01/2023 07:04:00 1.70 Below low normal 4.00-10.80 (K/uL) Final RBC 12/01/2023 07:04:00 3.43 3.85-5.15 (M/uL) Final Hemoglobin 12/01/2023 07:04:00 9.9 Below low normal 12.0-15.3 (g/dL) Final HCT 12/01/2023 07:04:00 29.5 Below low normal 36.0-45.2 (%) Final MCV 12/01/2023 07:04:00 86.0 81.5-97.5 (fL) Final MCH 12/01/2023 07:04:00 28.9 27.0-34.0 (pg) Final MCHC 12/01/2023 07:04:00 33.6 32.0-36.0 (g/dL) Final RDW 12/01/2023 07:04:00 18.3 11.5-15.5 (%) Final Platelets 12/01/2023 07:04:00 79 Below low normal 140-400 (K/uL) Final MPV 12/01/2023 07:04:00 9.1 6.6-11.1 (fL) Final Nucleated erythrocytes/100 leukocytes [Ratio] in Blood by Automated count 12/01/2023 07:04:00 0 <=0 (/100 WBCs) Final Performing Location LABORATORY C - [address] [place] [address]
--- OUTSIDE RECORDS SUMMARY | 2024-01-29 21:35 | External Medical Summary ---
Author Name Unknown Address Unknown Organization [id number]:[place] [facility] [place] [address] [facility] [place] [address] Laboratory Report Ordering Provider Test Date Status SONIA VILLARREAL 12/04/2023 07:22:00 Final Observation Date Value Abnormality Reference (Units ) Status WBC, Total 12/04/2023 07:22:00 1.06 Below low normal 4.00-10.80 (K/uL) Final RBC 12/04/2023 07:22:00 3.03 3.85-5.15 (M/uL) Final Hemoglobin 12/04/2023 07:22:00 8.7 Below low normal 12.0-15.3 (g/dL) Final HCT 12/04/2023 07:22:00 25.9 Below low normal 36.0-45.2 (%) Final MCV 12/04/2023 07:22:00 85.5 81.5-97.5 (fL) Final MCH 12/04/2023 07:22:00 28.7 27.0-34.0 (pg) Final MCHC 12/04/2023 07:22:00 33.6 32.0-36.0 (g/dL) Final RDW 12/04/2023 07:22:00 17.5 11.5-15.5 (%) Final Platelets 12/04/2023 07:22:00 44 Below low normal 140-400 (K/uL) Final MPV 12/04/2023 07:22:00 8.2 6.6-11.1 (fL) Final Nucleated erythrocytes/100 leukocytes [Ratio] in Blood by Automated count 12/04/2023 07:22:00 0 <=0 (/100 WBCs) Final Performing Location [facility] [place] [address] [place] [address]
--- OUTSIDE RECORDS SUMMARY | 2024-01-29 21:35 | External Medical Summary ---
Author Name Unknown Address Unknown Organization K01:LABORATORY [facility] [place] - [address] [place] [address] Laboratory Report Ordering Provider Test Date Status CY DE ANDA II 12/05/2023 09:43:00 Final Observation Date Value Abnormality Reference (Units ) Status Troponin T 12/05/2023 09:43:00 23 Above high normal < =14 (ng/L) Final Performing Location [facility] - [address] [place] [address]
--- OUTSIDE RECORDS SUMMARY | 2024-01-29 21:35 | External Medical Summary ---
Author Name Unknown Address Unknown Organization : Laboratory Report Ordering Provider Test Date Status ELVIA DE DIOS 12/02/2023 21:49:35 Final Observation Date Value Abnormality Reference (Units ) Status Glucose Point of Care 12/02/2023 21:49:35 171 Above high normal 70-120 (mg/dL) Final Performing Location
--- OUTSIDE RECORDS SUMMARY | 2024-01-29 21:35 | External Medical Summary ---
Author Name Unknown Address Unknown Organization [id number]:[place]ORY [facility] [place] [address] [facility] [address] [facility] [address] Laboratory Report Ordering Provider Test Date Status SONIA VILLARREAL 12/03/2023 08:03:00 Final Observation Date Value Abnormality Reference (Units ) Status WBC, Total 12/03/2023 08:03:00 1.11 Below low normal 4.00-10.80 (K/uL) Final RBC 12/03/2023 08:03:00 3.34 3.85-5.15 (M/uL) Final Hemoglobin 12/03/2023 08:03:00 9.6 Below low normal 12.0-15.3 (g/dL) Final HCT 12/03/2023 08:03:00 28.8 Below low normal 36.0-45.2 (%) Final MCV 12/03/2023 08:03:00 86.2 81.5-97.5 (fL) Final MCH 12/03/2023 08:03:00 28.7 27.0-34.0 (pg) Final MCHC 12/03/2023 08:03:00 33.3 32.0-36.0 (g/dL) Final RDW 12/03/2023 08:03:00 17.7 11.5-15.5 (%) Final Platelets 12/03/2023 08:03:00 57 Below low normal 140-400 (K/uL) Final MPV 12/03/2023 08:03:00 9.3 6.6-11.1 (fL) Final Nucleated erythrocytes/100 leukocytes [Ratio] in Blood by Automated count 12/03/2023 08:03:00 0 <=0 (/100 WBCs) Final Performing Location LAB[facility]ATORY [facility] [place] - [address] [place] [address]
--- OUTSIDE RECORDS SUMMARY | 2024-01-29 21:35 | External Medical Summary ---
Author Name Unknown Address Unknown Organization K01:LABORATORY [facility] [place] - [address] [place] [address] Laboratory Report Ordering Provider Test Date Status SONIA VILLARREAL 12/01/2023 07:04:00 Final Observation Date Value Abnormality Reference (Units ) Status Uric Acid 12/01/2023 07:04:00 2.1 Below low normal 2.4 -5.7 (mg/dL) Final Performing Location LABORATORY [facility] [place] - [address] [place] [address]
--- OUTSIDE RECORDS SUMMARY | 2024-01-29 21:35 | External Medical Summary ---
Author Name Unknown Address Unknown Organization : Laboratory Report Ordering Provider Test Date Status ELVIA DE DIOS 12/01/2023 11:14:03 Final Observation Date Value Abnormality Reference (Units ) Status Glucose Point of Care 12/01/2023 11:14:03 158 Above high normal 70-120 (mg/dL) Final Performing Location
--- OUTSIDE RECORDS SUMMARY | 2024-01-29 21:35 | External Medical Summary ---
Author Name Unknown Address Unknown Organization [id number]:[place] [facility] [place] [address] [place] [address] Laboratory Report Ordering Provider Test Date Status SONIA VILLARREAL 11/30/2023 08:08:00 Final Observation Date Value Abnormality Reference (Units ) Status Uric Acid 11/30/2023 08:08:00 1.5 Below low normal 2.4 -5.7 (mg/dL) Final Performing Location [place] [facility] [place] [address] [place] [address]
--- OUTSIDE RECORDS SUMMARY | 2024-01-29 21:35 | External Medical Summary ---
Author Name Unknown Address Unknown Organization : Laboratory Report Ordering Provider Test Date Status ELVIA DE DIOS 12/04/2023 07:15:54 Final Observation Date Value Abnormality Reference (Units ) Status Glucose Point of Care 12/04/2023 07:15:54 179 Above high normal 70-120 (mg/dL) Final Performing Location
--- OUTSIDE RECORDS SUMMARY | 2024-01-29 21:35 | External Medical Summary ---
Author Name Unknown Address Unknown Organization K01:LABORATORY [facility] - [address] [facility] [address] [facility] [address] Laboratory Report Ordering Provider Test Date Status CHERELLEPHOEBEROSA MARIA 12/03/2023 08:03:00 Final Observation Date Value Abnormality Reference (Units ) Status SYNC LEUKOCYTES IN BLOOD BY AUTOMATED COUNT 12/03/2023 08:03:00 1.11 Below low normal 4.00-10.80 (K/uL) Final Neutrophils/100 leukocytes in Blood by Manual count 12/03/2023 08:03:00 6.0 Below low normal 40.0-75.0 (%) Final Lymphocytes/100 leukocytes in Blood by Manual count 12/03/2023 08:03:00 90.0 Above high normal 18.0-42.0 (%) Final Monocytes/100 leukocytes in Blood by Manual count 12/03/2023 08:03:00 4.0 1.0-11.0 (%) Final Neutrophils [#/volume] in Blood by Manual count 12/03/2023 08:03:00 0.07 Below low normal 1.80-7.70 (K/uL) Final Lymphocytes [#/volume] in Blood by Manual count 12/03/2023 08:03:00 1.00 1.00-4.80 (K/uL) Final Monocytes [#/volume] in Blood by Manual count 12/03/2023 08:03:00 0.04 0.00-1.10 (K/uL) Final Performing Location [facility] [address] [facility] [address] [facility] [address]
--- OUTSIDE RECORDS SUMMARY | 2024-01-29 21:36 | External Medical Summary ---
Author Name Unknown Address Unknown Organization K01:LAB[facility]ATORY [facility] - [address] [place] [address] Laboratory Report Ordering Provider Test Date Status SONIA VILLARREAL 11/27/2023 13:47:00 Final Observation Date Value Abnormality Reference (Units ) Status Phosphate 11/27/2023 13:47:00 4.8 2.5-4.8 (m g/dL) Final Performing Location [facility] - [address] [place] [address]
--- OUTSIDE RECORDS SUMMARY | 2024-01-29 21:36 | External Medical Summary ---
Author Name Unknown Address Unknown Organization : Laboratory Report Ordering Provider Test Date Status SONIA VILLARREAL 11/28/2023 06:13:00 Final Observation Date Value Abnormality Reference (Units ) Status Performing Location
--- OUTSIDE RECORDS SUMMARY | 2024-01-29 21:36 | External Medical Summary ---
Author Name Unknown Address Unknown Organization K01:LABORATORY [facility] [place] - [address] [place] [address] Laboratory Report Ordering Provider Test Date Status SONIA VILLARREAL 11/27/2023 13:47:00 Final Observation Date Value Abnormality Reference (Units ) Status Uric Acid 11/27/2023 13:47:00 0.7 Below low normal 2.4 -5.7 (mg/dL) Final Performing Location LABORATORY [facility] [place] - [address] [place] [address]
--- OUTSIDE RECORDS SUMMARY | 2024-01-29 21:36 | External Medical Summary ---
Author Name Unknown Address Unknown Organization K01:[place] [facility] [place] [address] [place] [address] Laboratory Report Ordering Provider Test Date Status SONIA VILLARREAL 11/27/2023 07:13:00 Final Warfarin Therapy
INR: 2 .0-3.0 conventional anticoagulation
INR: 2.5- 3.5 high intensity anticoagulation Observation Date Value Abnormality Reference (Units ) Status PT 11/27/2023 07:13:00 15.2 11.6-15.2 (seconds) Final INR 11/27/2023 07:13:00 1.2 0.8-1.2 Final Performing Location LABORATORY [facility] - [address] [place] [address]
--- OUTSIDE RECORDS SUMMARY | 2024-01-29 21:36 | External Medical Summary ---
Author Name Unknown Address Unknown Organization : Laboratory Report Ordering Provider Test Date Status ELVIA DE DIOS 11/26/2023 20:54:09 Final Observation Date Value Abnormality Reference (Units ) Status Glucose Point of Care 11/26/2023 20:54:09 114 70-120 (mg/dL) Final Performing Location
--- OUTSIDE RECORDS SUMMARY | 2024-01-29 21:36 | External Medical Summary ---
Author Name Unknown Address Unknown Organization : Laboratory Report Ordering Provider Test Date Status ELVIA DE DIOS 11/27/2023 16:07:34 Final Observation Date Value Abnormality Reference (Units ) Status Glucose Point of Care 11/27/2023 16:07:34 120 70-120 (mg/dL) Final Performing Location
--- OUTSIDE RECORDS SUMMARY | 2024-01-29 21:36 | External Medical Summary ---
Author Name Unknown Address Unknown Organization K01:LABORATORY [facility] - [address] [place] [address] Laboratory Report Ordering Provider Test Date Status SONIA VILLARREAL 11/27/2023 19:52:00 Final Observation Date Value Abnormality Reference (Units ) Status Phosphate 11/27/2023 19:52:00 4.8 2.5-4.8 (m g/dL) Final Performing Location LAB[facility] - [address] [place] [address]
--- OUTSIDE RECORDS SUMMARY | 2024-01-29 21:36 | External Medical Summary ---
Author Name Unknown Address Unknown Organization K01:LABORATORY [address] [facility] [address] Laboratory Report Ordering Provider Test Date Status SANJU SAHU 11/27/2023 07:13:00 Final Observation Date Value Abnormality Reference (Units ) Status HIV 1+2 Ab+HIV1 p24 Ag [Presence] in Serum or Plasma by Immunoassay 11/27/2023 07:13:00 Negative Negative Final Negative HIV-1/2 antigen and antibody screening tset results usually indicate the absence of HIV-1 and HIV-2 infection. However, such negative results do not rule-out acute HIV infection. If acute HIV-1 infection is highly suspected, it is recommended that a specimen be submitted for detection of HIV-1 RNA. Performing Location LABORATORY [facility] [place] - [facility] [address] [address]
--- OUTSIDE RECORDS SUMMARY | 2024-01-29 21:36 | External Medical Summary ---
Author Name Unknown Address Unknown Organization K01:LABORATORY [facility] - [address] [place] [address] Laboratory Report Ordering Provider Test Date Status SONIA VILLARREAL 11/28/2023 06:13:00 Final Observation Date Value Abnormality Reference (Units ) Status Phosphate 11/28/2023 06:13:00 5.3 Above high normal 2. 5-4.8 (mg/dL) Final Performing Location [facility] - [address] [place] [address]
--- OUTSIDE RECORDS SUMMARY | 2024-01-29 21:36 | External Medical Summary ---
Author Name Unknown Address Unknown Organization K01:LABORATORY [facility] - [address] [address] [facility] [address] Laboratory Report Ordering Provider Test Date Status SONIA VILLARREAL 11/27/2023 07:12:00 Final Observation Date Value Abnormality Reference (Units ) Status SYNC LEUKOCYTES IN BLOOD BY AUTOMATED COUNT 11/27/2023 07:12:00 5.62 4.00-10.80 (K/uL) Final Neutrophils/100 leukocytes in Blood by Manual count 11/27/2023 07:12:00 3.0 Below low normal 40.0-75.0 (%) Final Lymphocytes/100 leukocytes in Blood by Manual count 11/27/2023 07:12:00 60.0 Above high normal 18.0-42.0 (%) Final Monocytes/100 leukocytes in Blood by Manual count 11/27/2023 07:12:00 2.0 1.0-11.0 (%) Final Blasts/100 leukocytes in Blood by Manual count 11/27/2023 07:12:00 35.0 Above high normal <=0.0 (%) Final Neutrophils [#/volume] in Blood by Manual count 11/27/2023 07:12:00 0.17 Below low normal 1.80-7.70 (K/uL) Final Lymphocytes [#/volume] in Blood by Manual count 11/27/2023 07:12:00 3.37 1.00-4.80 (K/uL) Final Monocytes [#/volume] in Blood by Manual count 11/27/2023 07:12:00 0.11 0.00-1.10 (K/uL) Final Blasts [#/volume] in Blood by Manual count 11/27/2023 07:12:00 1.97 Above high normal <=0.00 (K/uL) Final Performing Location LAB[facility]ATORY [facility] - [address] [facility] [place] [address]
--- OUTSIDE RECORDS SUMMARY | 2024-01-29 21:36 | External Medical Summary ---
Author Name Unknown Address Unknown Organization K01:LABORATORY [facility] - [address] [facility] [address] Laboratory Report Ordering Provider Test Date Status SONIA VILLARREAL 11/29/2023 06:03:00 Final Observation Date Value Abnormality Reference (Units ) Status SYNC LEUKOCYTES IN BLOOD BY AUTOMATED COUNT 11/29/2023 06:03:00 1.92 Below low normal 4.00-10.80 (K/uL) Final Neutrophils/100 leukocytes in Blood by Manual count 11/29/2023 06:03:00 12.0 Below low normal 40.0-75.0 (%) Final Lymphocytes/100 leukocytes in Blood by Manual count 11/29/2023 06:03:00 57.0 Above high normal 18.0-42.0 (%) Final Monocytes/100 leukocytes in Blood by Manual count 11/29/2023 06:03:00 2.0 1.0-11.0 (%) Final Eosinophils/100 leukocytes in Blood by Manual count 11/29/2023 06:03:00 7.0 Above high normal 0.0-6.0 (%) Final Basophils/100 leukocytes in Blood by Manual count 11/29/2023 06:03:00 3.0 Above high normal 0.0-2.0 (%) Final Metamyelocytes/100 leukocytes in Blood by Manual count 11/29/2023 06:03:00 1.0 Above high normal <=0.0 (%) Final Blasts/100 leukocytes in Blood by Manual count 11/29/2023 06:03:00 18.0 Above high normal <=0.0 (%) Final Neutrophils [#/volume] in Blood by Manual count 11/29/2023 06:03:00 0.23 Below low normal 1.80-7.70 (K/uL) Final Lymphocytes [#/volume] in Blood by Manual count 11/29/2023 06:03:00 1.09 1.00-4.80 (K/uL) Final Monocytes [#/volume] in Blood by Manual count 11/29/2023 06:03:00 0.04 0.00-1.10 (K/uL) Final Eosinophils [#/volume] in Blood by Manual count 11/29/2023 06:03:00 0.13 0.00-0.70 (K/uL) Final Basophils [#/volume] in Blood by Manual count 11/29/2023 06:03:00 0.06 0.00-0.20 (K/uL) Final Metamyelocytes [#/volume] in Blood by Manual count 11/29/2023 06:03:00 0.02 Above high normal <=0.00 (K/uL) Final Blasts [#/volume] in Blood by Manual count 11/29/2023 06:03:00 0.35 Above high normal <=0.00 (K/uL) Final Variant lymphocytes [Presence] in Blood by Light microscopy 11/29/2023 06:03:00 Present Abnormal None Seen Final Performing Location LABORATORY [facility] [place] [address] [facility] [address]
--- OUTSIDE RECORDS SUMMARY | 2024-01-29 21:36 | External Medical Summary ---
Author Name Unknown Address Unknown Organization K01:[place] [facility] [place] [address] [facility] [address] Laboratory Report Ordering Provider Test Date Status PHOEBE VILLARREALROSA MARIA 11/26/2023 13:25:00 Final Observation Date Value Abnormality Reference (Units ) Status BUN 11/26/2023 13:25:00 25 Above high normal 6-20 (mg/dL) Final Creatinine 11/26/2023 13:25:00 1.0 0.5-1.0 (mg/dL) Final Glomerular filtration rate/1.73 sq M.predicted [Volume Rate/Area] in Serum, Plasma or Blood by Creatinine-based formula (CKD-EPI) 11/26/2023 13:25:00 64 >=60 (mL/min) Final eGFR is calculated based on the CKD-EPI 2020 equation SODIUM 11/26/2023 13:25:00 137 135-146 (m mol/L) Final Potassium 11/26/2023 13:25:00 5.2 Above high normal 3. 5-5.1 (mmol/L) Final Cl 11/26/2023 13:25:00 103 98-107 (mm ol/L) Final CO2 11/26/2023 13:25:00 23 22-32 (mmo l/L) Final Anion gap 11/26/2023 13:25:00 11 7-15 (mmol /L) Final Glucose 11/26/2023 13:25:00 178 Above high normal 70 -120 (mg/dL) Final Albumin 11/26/2023 13:25:00 4.6 3.8-5.0 (g /dL) Final AST (Aspartate aminotransferase) 11/26/2023 13:25:00 41 Above high normal 10-35 (U/L) Final Alk Phos 11/26/2023 13:25:00 63 35-130 (U/ L) Final Bilirubin, Total 11/26/2023 13:25:00 0.3 <=1 .2 (mg/dL) Final Calcium 11/26/2023 13:25:00 9.8 8.4-10.2 ( mg/dL) Final Protein 11/26/2023 13:25:00 7.7 6.0-8.3 (g /dL) Final ALT (Alanine aminotransferase) 11/26/2023 13:25:00 13 10-35 (U/L) Colin lee Performing Location [place] [facility] [place] - [facility] [address] [facility] [address]
--- OUTSIDE RECORDS SUMMARY | 2024-01-29 21:36 | External Medical Summary ---
Author Name Unknown Address Unknown Organization K01:LABORATORY [facility] - [address] [place] [address] Laboratory Report Ordering Provider Test Date Status SILAS ROCHE 11/29/2023 06:03:00 Final Observation Date Value Abnormality Reference (Units ) Status Fibrinogen 11/29/2023 06:03:00 189 178-467 ( mg/dL) Final Performing Location LAB[facility] - [address] [place] [address]
--- OUTSIDE RECORDS SUMMARY | 2024-01-29 21:36 | External Medical Summary ---
Author Name Unknown Address Unknown Organization : Laboratory Report Ordering Provider Test Date Status ELVIA DE DIOS 11/28/2023 16:05:48 Final Observation Date Value Abnormality Reference (Units ) Status Glucose Point of Care 11/28/2023 16:05:48 91 70-120 (mg/dL) Final Performing Location
--- OUTSIDE RECORDS SUMMARY | 2024-01-29 21:36 | External Medical Summary ---
Author Name Unknown Address Unknown Organization : Laboratory Report Ordering Provider Test Date Status ELVIA DE DIOS 11/26/2023 16:01:19 Final Observation Date Value Abnormality Reference (Units ) Status Glucose Point of Care 11/26/2023 16:01:19 124 Above high normal 70-120 (mg/dL) Final Performing Location
--- OUTSIDE RECORDS SUMMARY | 2024-01-29 21:36 | External Medical Summary ---
Author Name Unknown Address Unknown Organization : Laboratory Report Ordering Provider Test Date Status ELVIA DE DIOS 11/29/2023 11:34:35 Final Observation Date Value Abnormality Reference (Units ) Status Glucose Point of Care 11/29/2023 11:34:35 108 70-120 (mg/dL) Final Performing Location
--- OUTSIDE RECORDS SUMMARY | 2024-01-29 21:36 | External Medical Summary ---
Author Name Unknown Address Unknown Organization K01:LABORATORY [facility] - [address] [place] [address] Laboratory Report Ordering Provider Test Date Status SONIA VILLARREAL 11/29/2023 06:03:00 Final Observation Date Value Abnormality Reference (Units ) Status Phosphate 11/29/2023 06:03:00 5.0 Above high normal 2. 5-4.8 (mg/dL) Final Performing Location LAB[facility] - [address] [place] [address]
--- OUTSIDE RECORDS SUMMARY | 2024-01-29 21:36 | External Medical Summary ---
Author Name Unknown Address Unknown Organization K01:LABORATORY [facility] [place] [address] [place] [address] Laboratory Report Ordering Provider Test Date Status SILAS ROCHE 11/29/2023 06:03:00 Final Warfarin Therapy
INR: 2 .0-3.0 conventional anticoagulation
INR: 2.5- 3.5 high intensity anticoagulation Observation Date Value Abnormality Reference (Units ) Status PT 11/29/2023 06:03:00 14.6 11.6-15.2 (seconds) Final INR 11/29/2023 06:03:00 1.1 0.8-1.2 Final Performing Location LABORATORY [facility] [place] [address] [place] [address]
--- OUTSIDE RECORDS SUMMARY | 2024-01-29 21:36 | External Medical Summary ---
Author Name Unknown Address Unknown Organization : Laboratory Report Ordering Provider Test Date Status ELVIA DE DIOS 11/29/2023 06:41:46 Final Observation Date Value Abnormality Reference (Units ) Status Glucose Point of Care 11/29/2023 06:41:46 102 70-120 (mg/dL) Final Performing Location
--- OUTSIDE RECORDS SUMMARY | 2024-01-29 21:36 | External Medical Summary ---
Author Name Unknown Address Unknown Organization K01:LABORATORY [facility] - [address] [place] [address] Laboratory Report Ordering Provider Test Date Status SANJU SAHU 11/28/2023 06:13:00 Final Observation Date Value Abnormality Reference (Units ) Status Fibrinogen 11/28/2023 06:13:00 171 Below low normal 17 8-467 (mg/dL) Final Performing Location LAB[facility] - [address] [place] [address]
--- OUTSIDE RECORDS SUMMARY | 2024-01-29 21:36 | External Medical Summary ---
Author Name Unknown Address Unknown Organization K01:LABORATORY [address] [facility] [address] Laboratory Report Ordering Provider Test Date Status SANJU SAHU 11/29/2023 06:03:00 Final Observation Date Value Abnormality Reference (Units ) Status HIV 1+2 Ab+HIV1 p24 Ag [Presence] in Serum or Plasma by Immunoassay 11/29/2023 06:03:00 Negative Negative Final Negative HIV-1/2 antigen and antibody screening tset results usually indicate the absence of HIV-1 and HIV-2 infection. However, such negative results do not rule-out acute HIV infection. If acute HIV-1 infection is highly suspected, it is recommended that a specimen be submitted for detection of HIV-1 RNA. Performing Location LABORATORY [facility] [place] - [facility] [address] [address]
--- OUTSIDE RECORDS SUMMARY | 2024-01-29 21:36 | External Medical Summary ---
Author Name Unknown Address Unknown Organization : Laboratory Report Ordering Provider Test Date Status ELVIA DE DIOS 11/28/2023 11:52:40 Final Observation Date Value Abnormality Reference (Units ) Status Glucose Point of Care 11/28/2023 11:52:40 115 70-120 (mg/dL) Final Performing Location
--- OUTSIDE RECORDS SUMMARY | 2024-01-29 21:36 | External Medical Summary ---
Author Name Unknown Address Unknown Organization K01:LABORATORY [address] [facility] [address] Laboratory Report Ordering Provider Test Date Status SANJU SAHU 11/26/2023 13:26:00 Final Observation Date Value Abnormality Reference (Units ) Status HIV 1+2 Ab+HIV1 p24 Ag [Presence] in Serum or Plasma by Immunoassay 11/26/2023 13:26:00 Negative Negative Final Negative HIV-1/2 antigen and antibody screening tset results usually indicate the absence of HIV-1 and HIV-2 infection. However, such negative results do not rule-out acute HIV infection. If acute HIV-1 infection is highly suspected, it is recommended that a specimen be submitted for detection of HIV-1 RNA. Performing Location [place] [facility] [place] [facility] [address] [address]
--- OUTSIDE RECORDS SUMMARY | 2024-01-29 21:36 | External Medical Summary ---
Author Name Unknown Address Unknown Organization : Laboratory Report Ordering Provider Test Date Status ELVIA DE DIOS 11/27/2023 06:20:52 Final Observation Date Value Abnormality Reference (Units ) Status Glucose Point of Care 11/27/2023 06:20:52 106 70-120 (mg/dL) Final Performing Location
--- OUTSIDE RECORDS SUMMARY | 2024-01-29 21:36 | External Medical Summary ---
Author Name Unknown Address Unknown Organization K01:[place]ORY [facility] [place] [address] [facility] [address] [facility] [address] Laboratory Report Ordering Provider Test Date Status SONIA VILLARREAL 11/27/2023 07:13:00 Final Anticoagulation may affect t esting. Refer to [employer] Test Catalog for a list of effects. Observation Date Value Abnormality Reference (Units ) Status aPTT panel - Platelet poor plasma 11/27/2023 07:13:00 40 Above high normal 21-38 (seconds) Final Performing Location LAB[facility] [facility] [place] [address] [facility] [address]
--- OUTSIDE RECORDS SUMMARY | 2024-01-29 21:36 | External Medical Summary ---
Author Name Unknown Address Unknown Organization : Laboratory Report Ordering Provider Test Date Status ELVIA DE DIOS 11/28/2023 06:31:34 Final Observation Date Value Abnormality Reference (Units ) Status Glucose Point of Care 11/28/2023 06:31:34 105 70-120 (mg/dL) Final Performing Location
--- OUTSIDE RECORDS SUMMARY | 2024-01-29 21:36 | External Medical Summary ---
Author Name Unknown Address Unknown Organization : Laboratory Report Ordering Provider Test Date Status ELVIA DE DIOS 11/27/2023 11:34:42 Final Observation Date Value Abnormality Reference (Units ) Status Glucose Point of Care 11/27/2023 11:34:42 124 Above high normal 70-120 (mg/dL) Final Performing Location
--- OUTSIDE RECORDS SUMMARY | 2024-01-29 21:36 | External Medical Summary ---
Author Name Unknown Address Unknown Organization K01:[facility]ORY [facility] [place] [facility] [address] [place] [address] Laboratory Report Ordering Provider Test Date Status SONIA VILLARREAL 11/28/2023 06:13:00 Final Observation Date Value Abnormality Reference (Units ) Status WBC, Total 11/28/2023 06:13:00 2.70 Below low normal 4.00-10.80 (K/uL) Final RBC 11/28/2023 06:13:00 3.93 3.85-5.15 (M/uL) Final Hemoglobin 11/28/2023 06:13:00 11.4 Below low normal 12.0-15.3 (g/dL) Final HCT 11/28/2023 06:13:00 33.6 Below low normal 36.0-45.2 (%) Final MCV 11/28/2023 06:13:00 85.5 81.5-97.5 (fL) Final MCH 11/28/2023 06:13:00 29.0 27.0-34.0 (pg) Final MCHC 11/28/2023 06:13:00 33.9 32.0-36.0 (g/dL) Final RDW 11/28/2023 06:13:00 18.9 11.5-15.5 (%) Final Platelets 11/28/2023 06:13:00 95 Below low normal 140-400 (K/uL) Final MPV 11/28/2023 06:13:00 9.0 6.6-11.1 (fL) Final Nucleated erythrocytes/100 leukocytes [Ratio] in Blood by Automated count 11/28/2023 06:13:00 1 Above high normal <=0 (/100 WBCs) Final Performing Location [facility] [place] [address] [place] [address]
--- OUTSIDE RECORDS SUMMARY | 2024-01-29 21:36 | External Medical Summary ---
Author Name Unknown Address Unknown Organization K01:[facility] [place] [address] [place] [address] Laboratory Report Ordering Provider Test Date Status SONIA VILLARREAL 11/28/2023 06:13:00 Final Observation Date Value Abnormality Reference (Units ) Status Uric Acid 11/28/2023 06:13:00 0.9 Below low normal 2.4 -5.7 (mg/dL) Final Performing Location [facility] [place] [address] [place] [address]
--- OUTSIDE RECORDS SUMMARY | 2024-01-29 21:36 | External Medical Summary ---
Author Name Unknown Address Unknown Organization K01:[facility] [place] [address] [facility] [address] Laboratory Report Ordering Provider Test Date Status SONIA VILLARREAL 11/27/2023 13:47:00 Final Observation Date Value Abnormality Reference (Units ) Status BUN 11/27/2023 13:47:00 20 6-20 (mg/dL) Final Creatinine 11/27/2023 13:47:00 0.9 0.5-1.0 (mg/dL) Final Glomerular filtration rate/1.73 sq M.predicted [Volume Rate/Area] in Serum, Plasma or Blood by Creatinine-based formula (CKD-EPI) 11/27/2023 13:47:00 69 >=60 (mL/min) Final eGFR is calculated based on the CKD-EPI 2020 equation SODIUM 11/27/2023 13:47:00 138 135-146 (m mol/L) Final Potassium 11/27/2023 13:47:00 4.7 3.5-5.1 (m mol/L) Final Cl 11/27/2023 13:47:00 103 98-107 (mm ol/L) Final CO2 11/27/2023 13:47:00 23 22-32 (mmo l/L) Final Anion gap 11/27/2023 13:47:00 12 7-15 (mmol /L) Final Glucose 11/27/2023 13:47:00 135 Above high normal 70 -120 (mg/dL) Final Albumin 11/27/2023 13:47:00 4.6 3.8-5.0 (g /dL) Final AST (Aspartate aminotransferase) 11/27/2023 13:47:00 64 Above high normal 10-35 (U/L) Final Alk Phos 11/27/2023 13:47:00 54 35-130 (U/ L) Final Bilirubin, Total 11/27/2023 13:47:00 0.5 <=1 .2 (mg/dL) Final Calcium 11/27/2023 13:47:00 10.0 8.4-10.2 ( mg/dL) Final Protein 11/27/2023 13:47:00 7.2 6.0-8.3 (g /dL) Final ALT (Alanine aminotransferase) 11/27/2023 13:47:00 15 10-35 (U/L) Colin lee Performing Location [facility] [place] [facility] [address] [facility] [address]
--- OUTSIDE RECORDS SUMMARY | 2024-01-29 21:36 | External Medical Summary | Summary of Care ---
Author Name Unknown Organization [facility] Address [address] [place] [address] Phone [phone] Care Team Providers Care Fur Designer Name Role Phone Ivonne French PA-C Primary Care Provider [phone] Encounter Details Date Type Department Care Team (Late st Contact Info) Description 11/29/2023 Orders Only Outcomes Research Department [address] [place] [address] Socorro Waller [employer]RA [employer] Other*[id number] Allergies Active Allergy Reactions Criticality Noted Date Comments Adhesive Tape 04/21/2016 Glue off the old style medical tape. documented as of this encounter (statuses as of 11/29/2023) Medications Medication Sig Dispensed Refills Start Date [...] 180 Tablet 1 05/25/2023 Suspended Additional Information [employer] Delica Lancets 33G Use to test blood sugar three times daily E 11.9 300 Each 5 05/25/2023 Suspended Additional Information FlixpressTouch Verio w/Device Kit Use up to 3 times a day E11.9 1 Kit 0 05/25/2023 Suspended Additional Information Pen [place] 32G X 4 MM Use as directed. Use to inject insulin 4 times daily 100 Each 5 05/25/2023 Suspended Additional Information Triamcinolone Acetonide 0.1 [...] a week. 6 mL 1 09/09/2023 4 Suspended Additional Information Linzess 72 MCG Oral Capsule (linaCLOtide)Lety cations:Drug-marian isael constipation Take 1 Capsule by mouth daily before breakfast. 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 (arteriosclerotic cardiovascular disease) 11/24/2023 Neutropenia 11/24/2023 Pyogenic inflammation of bone 11/24/2023 Osteomyelitis [...] as of this encounter (statuses as of 11/29/2023) Resolved Problems Problem Noted Date Diagnosed Date [...] as of this encounter (statuses as of 11/29/2023) Immunizations Name Administration Dates Next Due COVID-19 [...] Description 12/16/2023 11:20 AM EST Office Visit [facility] [address] [place] [phone] Ivonne French PA-C [address] [place] [address] 12/16/2023 1:45 PM EST Office Visit [facility] [address] [facility] [place] [address] Shon Rice MD [address] [place] [address] 12/23/2023 1:00 PM EST Office Visit Neurology, [place] [address] [place] [place] [phone] Oralia Glass MD [address] [place] [address] 12/29/2023 8:10 AM EST Pharmacy Pharmacy, [facility] [address] [facility] [place] [address] [facility] [address] [facility] [place] [address] 01/07/2024 10:00 AM EST Office Visit [facility] [place] [address] [facility] [phone] Ivonne French PA-C [address] [facility] [place] [address] 01/31/2024 9:00 AM EDT Imaging Radiology [address], [place] [address] [facility] [place] [address] 02/10/2024 11:40 AM EDT Office Visit [facility] [place] [address] [facility] [phone] Ivonne French PA-C [address] [facility] [place] [address] 05/10/2024 8:15 AM EDT Office Visit Ophthalmology, [place] [address] [place] [address] Migel Ramires MD [address] [place] [address] Scheduled Orders Name Type Priority Associated Diagnoses Orde r Schedule MYCODE SUBSEQUENT ADULT Lab Routine [employer] Research Other*[id number] Every 6 Months for 2 Occurrences starting 11/29/2023 until 12/18/2024 Scheduled Procedures Name Priority Associated Diagnoses Date/Ti [...] 024, 12/25/2022, 09/16/2022, Additional history exists GFR 11/29/2024 11/29/2023, 11/09, 11/27/2023, Additional history exists PAP SMEAR-EVERY 3 YRS,AGES [...] this encounter Medical Devices Implanted Type Area Behavioral Science Chair Device Identifier Shelf Expiration Date Model / Serial / Lot Lens Intraoc 21.0 - [id number] - [id number] Implanted:Qty : 1 on 07/06/2017 by Luis Eduardo Cloe MD at OR [facility] Left: Eye [employer] 01/05/2022 [id number] / [id number] / Lens Intraoc 21.0 - [id number] - [id number] Implanted:Qty : 1 on 07/20/2017 by Luis Eduardo Cole MD at OR [facility] Right: Eye [employer] 01/05/2022 [id number] / [id number] / Syringe Prolaryn Del 1.0cc - [id number] Implanted:Qty : 1 on 11/20/2019 by Amber Jain MD at OR [facility] [place] [facility] Right: Mouth [employer] 10/21/2021 [id number] / / [id number] Implant Silastic 7 Silicone Sw - [id number] Implanted:Qty : 1 on 05/28/2020 by Farhat Pate MD at OR [facility] Right: Throat [employer] [id number] / / documented as of this encounter Visit Diagnoses Diagnosis [employer] Research Other*[id number] documented in this encounter Advance Directives Latest Code Status on File Code Status Date Activated Date Inactivated Comments No Code 11/24/2023 7:24 PM This order reflects the patients wishes and were consensually agreed upon. Question Answer Comments Discussion of Advance Directives occurred with: Patient Does the patient have a Living Will? No Does the patient have Health Care Power of Hospital Education Coordinator? No Code Status History Code Status [...] and were consensually agreed upon. Care Teams Fur Designer Relationship Specialty Start Date End Date Ivonne French PA-C [address] [place] [address] [place] [address] PCP - General Physician Sap Consultant 9/16/21 documented as of this encounter
--- OUTSIDE RECORDS SUMMARY | 2024-01-29 21:36 | External Medical Summary ---
Author Name Unknown Address Unknown Organization K01:[facility] [place] [address] [place] [facility] [place] [address] Laboratory Report Ordering Provider Test Date Status PHOEBE VILLARREALROSA MARIA 11/26/2023 22:02:00 Final Observation Date Value Abnormality Reference (Units ) Status BUN 11/26/2023 22:02:00 24 Above high normal 6-20 (mg/dL) Final Creatinine 11/26/2023 22:02:00 1.1 Above high normal 0.5-1.0 (mg/dL) Final Glomerular filtration rate/1.73 sq M.predicted [Volume Rate/Area] in Serum, Plasma or Blood by Creatinine-based formula (CKD-EPI) 11/26/2023 22:02:00 59 Below low normal >=60 (mL/min) Final eGFR is calculated based on the CKD-EPI 2020 equation SODIUM 11/26/2023 22:02:00 138 135-146 (m mol/L) Final Potassium 11/26/2023 22:02:00 4.4 3.5-5.1 (m mol/L) Final Cl 11/26/2023 22:02:00 103 98-107 (mm ol/L) Final CO2 11/26/2023 22:02:00 23 22-32 (mmo l/L) Final Anion gap 11/26/2023 22:02:00 12 7-15 (mmol /L) Final Glucose 11/26/2023 22:02:00 116 70-120 (mg /dL) Final Albumin 11/26/2023 22:02:00 4.3 3.8-5.0 (g /dL) Final AST (Aspartate aminotransferase) 11/26/2023 22:02:00 52 Above high normal 10-35 (U/L) Final Alk Phos 11/26/2023 22:02:00 56 35-130 (U/ L) Final Bilirubin, Total 11/26/2023 22:02:00 0.4 <=1 .2 (mg/dL) Final Calcium 11/26/2023 22:02:00 9.5 8.4-10.2 ( mg/dL) Final Protein 11/26/2023 22:02:00 7.0 6.0-8.3 (g /dL) Final ALT (Alanine aminotransferase) 11/26/2023 22:02:00 14 10-35 (U/L) Colin lee Performing Location [facility] [place] [address] [facility] [address]
--- OUTSIDE RECORDS SUMMARY | 2024-01-29 21:36 | External Medical Summary ---
Author Name Unknown Address Unknown Organization K01:[facility] [place] [address] [place] [facility] [place] [address] Laboratory Report Ordering Provider Test Date Status PHOEBE VILLARREALROSA MARIA 11/27/2023 07:13:00 Final Observation Date Value Abnormality Reference (Units ) Status BUN 11/27/2023 07:13:00 21 Above high normal 6-20 (mg/dL) Final Creatinine 11/27/2023 07:13:00 0.9 0.5-1.0 (mg/dL) Final Glomerular filtration rate/1.73 sq M.predicted [Volume Rate/Area] in Serum, Plasma or Blood by Creatinine-based formula (CKD-EPI) 11/27/2023 07:13:00 71 >=60 (mL/min) Final eGFR is calculated based on the CKD-EPI 2020 equation SODIUM 11/27/2023 07:13:00 138 135-146 (m mol/L) Final Potassium 11/27/2023 07:13:00 4.3 3.5-5.1 (m mol/L) Final Cl 11/27/2023 07:13:00 102 98-107 (mm ol/L) Final CO2 11/27/2023 07:13:00 22 22-32 (mmo l/L) Final Anion gap 11/27/2023 07:13:00 14 7-15 (mmol /L) Final Glucose 11/27/2023 07:13:00 107 70-120 (mg /dL) Final Albumin 11/27/2023 07:13:00 4.7 3.8-5.0 (g /dL) Final AST (Aspartate aminotransferase) 11/27/2023 07:13:00 66 Above high normal 10-35 (U/L) Final Alk Phos 11/27/2023 07:13:00 59 35-130 (U/ L) Final Bilirubin, Total 11/27/2023 07:13:00 0.5 <=1 .2 (mg/dL) Final Calcium 11/27/2023 07:13:00 9.9 8.4-10.2 ( mg/dL) Final Protein 11/27/2023 07:13:00 7.4 6.0-8.3 (g /dL) Final ALT (Alanine aminotransferase) 11/27/2023 07:13:00 10 10-35 (U/L) Colin lee Performing Location [facility] [place] [facility] [address] [facility] [address]
--- OUTSIDE RECORDS SUMMARY | 2024-01-29 21:36 | External Medical Summary ---
Author Name Unknown Address Unknown Organization K01:LABORATORY [facility] [place] [address] [facility] [place] [address] Laboratory Report Ordering Provider Test Date Status SONIA VILLARREAL 11/27/2023 07:12:00 Final Observation Date Value Abnormality Reference (Units ) Status WBC, Total 11/27/2023 07:12:00 5.62 4.00-10.80 (K/uL) Final RBC 11/27/2023 07:12:00 4.03 3.85-5.15 (M/uL) Final Hemoglobin 11/27/2023 07:12:00 11.5 Below low normal 12.0-15.3 (g/dL) Final HCT 11/27/2023 07:12:00 34.7 Below low normal 36.0-45.2 (%) Final MCV 11/27/2023 07:12:00 86.1 81.5-97.5 (fL) Final MCH 11/27/2023 07:12:00 28.5 27.0-34.0 (pg) Final MCHC 11/27/2023 07:12:00 33.1 32.0-36.0 (g/dL) Final RDW 11/27/2023 07:12:00 19.7 11.5-15.5 (%) Final Platelets 11/27/2023 07:12:00 99 Below low normal 140-400 (K/uL) Final MPV 11/27/2023 07:12:00 8.8 6.6-11.1 (fL) Final Nucleated erythrocytes/100 leukocytes [Ratio] in Blood by Automated count 11/27/2023 07:12:00 1 Above high normal <=0 (/100 WBCs) Final Performing Location LABORATORY [facility] [place] - [address] [place] [address]
--- OUTSIDE RECORDS SUMMARY | 2024-01-29 21:36 | External Medical Summary ---
Author Name Unknown Address Unknown Organization K01:LABORATORY C - [address] [place] [address] Laboratory Report Ordering Provider Test Date Status SANJU SAHU 11/27/2023 07:13:00 Final Observation Date Value Abnormality Reference (Units ) Status Fibrinogen 11/27/2023 07:13:00 149 Below low normal 17 8-467 (mg/dL) Final Performing Location LABORATORY [facility] - [address] [place] [address]
--- OUTSIDE RECORDS SUMMARY | 2024-01-29 21:36 | External Medical Summary ---
Author Name Unknown Address Unknown Organization K01:LABORATORY [facility] [place] [address] [place] [address] Laboratory Report Ordering Provider Test Date Status CHERELLEPHOEBE HERNANDEZROSA MARIA 11/29/2023 06:03:00 Final Observation Date Value Abnormality Reference (Units ) Status BUN 11/29/2023 06:03:00 13 6-20 (mg/dL) Final Creatinine 11/29/2023 06:03:00 0.9 0.5-1.0 (mg/dL) Final Glomerular filtration rate/1.73 sq M.predicted [Volume Rate/Area] in Serum, Plasma or Blood by Creatinine-based formula (CKD-EPI) 11/29/2023 06:03:00 78 >=60 (mL/min) Final eGFR is calculated based on the CKD-EPI 2020 equation SODIUM 11/29/2023 06:03:00 139 135-146 (m mol/L) Final Potassium 11/29/2023 06:03:00 3.7 3.5-5.1 (m mol/L) Final Cl 11/29/2023 06:03:00 102 98-107 (mm ol/L) Final CO2 11/29/2023 06:03:00 25 22-32 (mmo l/L) Final Anion gap 11/29/2023 06:03:00 12 7-15 (mmol /L) Final Glucose 11/29/2023 06:03:00 110 70-120 (mg /dL) Final Albumin 11/29/2023 06:03:00 4.7 3.8-5.0 (g /dL) Final AST (Aspartate aminotransferase) 11/29/2023 06:03:00 40 Above high normal 10-35 (U/L) Final Alk Phos 11/29/2023 06:03:00 54 35-130 (U/ L) Final Bilirubin, Total 11/29/2023 06:03:00 0.6 <=1 .2 (mg/dL) Final Calcium 11/29/2023 06:03:00 9.5 8.4-10.2 ( mg/dL) Final Protein 11/29/2023 06:03:00 7.3 6.0-8.3 (g /dL) Final ALT (Alanine aminotransferase) 11/29/2023 06:03:00 14 10-35 (U/L) Colin lee Performing Location LABORATORY [facility] [place] - [facility] [address] [facility] [address]
--- OUTSIDE RECORDS SUMMARY | 2024-01-29 21:36 | External Medical Summary ---
Author Name Unknown Address Unknown Organization K01:LAB[facility]ATORY [facility] [place] [address] [facility] [address] Laboratory Report Ordering Provider Test Date Status PHOEBE VILLARREALROSA MARIA 11/27/2023 19:52:00 Final Observation Date Value Abnormality Reference (Units ) Status BUN 11/27/2023 19:52:00 19 6-20 (mg/dL) Final Creatinine 11/27/2023 19:52:00 1.0 0.5-1.0 (mg/dL) Final Glomerular filtration rate/1.73 sq M.predicted [Volume Rate/Area] in Serum, Plasma or Blood by Creatinine-based formula (CKD-EPI) 11/27/2023 19:52:00 63 >=60 (mL/min) Final eGFR is calculated based on the CKD-EPI 2020 equation SODIUM 11/27/2023 19:52:00 139 135-146 (m mol/L) Final Potassium 11/27/2023 19:52:00 4.1 3.5-5.1 (m mol/L) Final Cl 11/27/2023 19:52:00 103 98-107 (mm ol/L) Final CO2 11/27/2023 19:52:00 24 22-32 (mmo l/L) Final Anion gap 11/27/2023 19:52:00 12 7-15 (mmol /L) Final Glucose 11/27/2023 19:52:00 132 Above high normal 70 -120 (mg/dL) Final Albumin 11/27/2023 19:52:00 4.5 3.8-5.0 (g /dL) Final AST (Aspartate aminotransferase) 11/27/2023 19:52:00 56 Above high normal 10-35 (U/L) Final Alk Phos 11/27/2023 19:52:00 55 35-130 (U/ L) Final Bilirubin, Total 11/27/2023 19:52:00 0.5 <=1 .2 (mg/dL) Final Calcium 11/27/2023 19:52:00 9.9 8.4-10.2 ( mg/dL) Final Protein 11/27/2023 19:52:00 7.1 6.0-8.3 (g /dL) Final ALT (Alanine aminotransferase) 11/27/2023 19:52:00 12 10-35 (U/L) Colin lee Performing Location LABORATORY [facility] [place] - [facility] [address] [facility] [address]
--- OUTSIDE RECORDS SUMMARY | 2024-01-29 21:36 | External Medical Summary ---
Author Name Unknown Address Unknown Organization K01:[place] [facility] [place] [address] [facility] [address] Laboratory Report Ordering Provider Test Date Status SILAS ROCHE 11/29/2023 06:03:00 Final Anticoagulation may affect t esting. Refer to [employer] Test Catalog for a list of effects. Observation Date Value Abnormality Reference (Units ) Status aPTT panel - Platelet poor plasma 11/29/2023 06:03:00 41 Above high normal 21-38 (seconds) Final Performing Location [facility] [facility] [place] [address] [facility] [address]
--- OUTSIDE RECORDS SUMMARY | 2024-01-29 21:36 | External Medical Summary ---
Author Name Unknown Address Unknown Organization K01:LAB[facility]ORY [facility] [place] [facility] - [address] [place] [address] Laboratory Report Ordering Provider Test Date Status SONIA VILLARREAL 11/28/2023 06:14:00 Final Observation Date Value Abnormality Reference (Units ) Status ABO 11/28/2023 06:14:00 O Final RH 11/28/2023 06:14:00 Positive Final RED BLOOD CELL ANTIBODY SCREEN 11/28/2023 06:14:00 Negative Final SPECIMEN EXPIRATION DATE 11/28/2023 06:14:00 12/01/2023 23:59 Final Performing Location LAB[facility]ORY [facility] - [address] [place] [address]
--- OUTSIDE RECORDS SUMMARY | 2024-01-29 21:36 | External Medical Summary ---
Author Name Unknown Address Unknown Organization K01:LABORATORY [facility] - [address] [place] [address] Laboratory Report Ordering Provider Test Date Status SONIA VILLARREAL 11/27/2023 07:13:00 Final Observation Date Value Abnormality Reference (Units ) Status Phosphate 11/27/2023 07:13:00 5.3 Above high normal 2. 5-4.8 (mg/dL) Final Performing Location LABORATORY [facility] - [address] [place] [address]
--- OUTSIDE RECORDS SUMMARY | 2024-01-29 21:36 | External Medical Summary ---
Author Name Unknown Address Unknown Organization : Laboratory Report Ordering Provider Test Date Status ELVIA DE DIOS 11/28/2023 21:05:12 Final Observation Date Value Abnormality Reference (Units ) Status Glucose Point of Care 11/28/2023 21:05:12 120 70-120 (mg/dL) Final Performing Location
--- OUTSIDE RECORDS SUMMARY | 2024-01-29 21:36 | External Medical Summary ---
Author Name Unknown Address Unknown Organization K01:LABORATORY [facility] - [address] [facility] [address] Laboratory Report Ordering Provider Test Date Status SONIA VILLARREAL 11/28/2023 06:13:00 Final Observation Date Value Abnormality Reference (Units ) Status SYNC LEUKOCYTES IN BLOOD BY AUTOMATED COUNT 11/28/2023 06:13:00 2.70 Below low normal 4.00-10.80 (K/uL) Final Neutrophils/100 leukocytes in Blood by Manual count 11/28/2023 06:13:00 6.0 Below low normal 40.0-75.0 (%) Final Lymphocytes/100 leukocytes in Blood by Manual count 11/28/2023 06:13:00 69.0 Above high normal 18.0-42.0 (%) Final Monocytes/100 leukocytes in Blood by Manual count 11/28/2023 06:13:00 1.0 1.0-11.0 (%) Final Eosinophils/100 leukocytes in Blood by Manual count 11/28/2023 06:13:00 1.0 0.0-6.0 (%) Final Blasts/100 leukocytes in Blood by Manual count 11/28/2023 06:13:00 23.0 Above high normal <=0.0 (%) Final Neutrophils [#/volume] in Blood by Manual count 11/28/2023 06:13:00 0.16 Below low normal 1.80-7.70 (K/uL) Final Lymphocytes [#/volume] in Blood by Manual count 11/28/2023 06:13:00 1.86 1.00-4.80 (K/uL) Final Monocytes [#/volume] in Blood by Manual count 11/28/2023 06:13:00 0.03 0.00-1.10 (K/uL) Final Eosinophils [#/volume] in Blood by Manual count 11/28/2023 06:13:00 0.03 0.00-0.70 (K/uL) Final Blasts [#/volume] in Blood by Manual count 11/28/2023 06:13:00 0.62 Above high normal <=0.00 (K/uL) Final Variant lymphocytes [Presence] in Blood by Light microscopy 11/28/2023 06:13:00 Present Abnormal None Seen Final Performing Location LABORATORY [facility] [place] - [address] [facility] [address]
--- OUTSIDE RECORDS SUMMARY | 2024-01-29 21:36 | External Medical Summary ---
Author Name Unknown Address Unknown Organization K01:LABORATORY [address] [facility] [address] Laboratory Report Ordering Provider Test Date Status SANJU SAHU 11/28/2023 06:13:00 Final Observation Date Value Abnormality Reference (Units ) Status HIV 1+2 Ab+HIV1 p24 Ag [Presence] in Serum or Plasma by Immunoassay 11/28/2023 06:13:00 Negative Negative Final Negative HIV-1/2 antigen and antibody screening tset results usually indicate the absence of HIV-1 and HIV-2 infection. However, such negative results do not rule-out acute HIV infection. If acute HIV-1 infection is highly suspected, it is recommended that a specimen be submitted for detection of HIV-1 RNA. Performing Location LAB[facility]ATORY [facility] [place] - [facility] [address] [facility] [address] [facility] [address]
--- OUTSIDE RECORDS SUMMARY | 2024-01-29 21:36 | External Medical Summary ---
Author Name Unknown Address Unknown Organization K01:[place] [facility] [place] [address] [place] [address] Laboratory Report Ordering Provider Test Date Status SONIA VILLARREAL 11/26/2023 22:02:00 Final Observation Date Value Abnormality Reference (Units ) Status Uric Acid 11/26/2023 22:02:00 0.6 Below low normal 2.4 -5.7 (mg/dL) Final Performing Location [facility] [facility] [place] [address] [place] [address]
--- OUTSIDE RECORDS SUMMARY | 2024-01-29 21:36 | External Medical Summary ---
Author Name Unknown Address Unknown Organization K01:[facility]ATORY [facility] [place] - [address] [facility] [place] [facility] [address] Laboratory Report Ordering Provider Test Date Status SONIA VILLARREAL 11/29/2023 06:03:00 Final Observation Date Value Abnormality Reference (Units ) Status WBC, Total 11/29/2023 06:03:00 1.92 Below low normal 4.00-10.80 (K/uL) Final RBC 11/29/2023 06:03:00 3.93 3.85-5.15 (M/uL) Final Hemoglobin 11/29/2023 06:03:00 11.3 Below low normal 12.0-15.3 (g/dL) Final HCT 11/29/2023 06:03:00 34.0 Below low normal 36.0-45.2 (%) Final MCV 11/29/2023 06:03:00 86.5 81.5-97.5 (fL) Final MCH 11/29/2023 06:03:00 28.8 27.0-34.0 (pg) Final MCHC 11/29/2023 06:03:00 33.2 32.0-36.0 (g/dL) Final RDW 11/29/2023 06:03:00 18.6 11.5-15.5 (%) Final Platelets 11/29/2023 06:03:00 94 Below low normal 140-400 (K/uL) Final MPV 11/29/2023 06:03:00 9.0 6.6-11.1 (fL) Final Nucleated erythrocytes/100 leukocytes [Ratio] in Blood by Automated count 11/29/2023 06:03:00 0 <=0 (/100 WBCs) Final Performing Location [facility] - [address] [place] [address]
--- OUTSIDE RECORDS SUMMARY | 2024-01-29 21:36 | External Medical Summary ---
Author Name Unknown Address Unknown Organization K01:LABORATORY [facility] [place] - [address] [place] [address] Laboratory Report Ordering Provider Test Date Status SONIA VILLARREAL 11/27/2023 19:53:00 Final Observation Date Value Abnormality Reference (Units ) Status Uric Acid 11/27/2023 19:53:00 0.8 Below low normal 2.4 -5.7 (mg/dL) Final Performing Location LAB[facility]ORY [facility] [place] - [address] [place] [address]
--- OUTSIDE RECORDS SUMMARY | 2024-01-29 21:36 | External Medical Summary | Summary of Care ---
Author Name Unknown Organization [facility] Address [address] [place] [address] Phone [phone] Care Team Providers Care In Home Sales Representative Name Role Phone Ivonne French PA-C Primary Care Provider [phone] Reason for Visit * Auth/Cert Specialty Diagnoses / Procedures Referred By Lupis t Referred To Contact Referral ID Status Reason Start Date Expiration Date Visits Re quested Visits Authorized [id number] Encounter Details Date Type Department Care Team (Latest Contact Info) Description 11/25/2023 4:05 PM EST - 11/25/2023 11:59 PM EST Hospital Encounter Cardiac Studies [facility] [address], [place] [id number] Discharge Disposition: Home - Self Care Allergies Active Allergy Reactions Criticality Noted Date Comments Adhesive Tape 04/21/2016 Glue off the old style medical tape. documented as of this encounter (statuses as of 11/26/2023) Medications Medication Sig Dispensed Refills Start Date [...] 180 Tablet 1 05/25/2023 Suspended Additional Information [facility] Delica Lancets 33G Use to test blood sugar three times daily E 11.9 300 Each 05/25/2023 Suspended Additional Information [employer] Verio w/Device Kit Use up to 3 times a day E11.9 1 Kit 0 05/25/2023 Suspended Additional Information Pen Bogart 32G X 4 MM Use as directed. 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 [...] as of this encounter (statuses as of 11/26/2023) Resolved Problems Problem Noted Date Diagnosed Date [...] as of this encounter (statuses as of 11/26/2023) Immunizations Name Administration Dates Next Due COVID-19 [...] Description 12/16/2023 11:20 AM EST Office Visit [facility] [address] [place] [address] Ivonne French PA-C [address] [place] [address] 12/16/2023 1:45 PM EST Office Visit Hematology/Oncology [facility] [address] [facility] [place] [address] Shon Rice MD [address] [place] [address] 12/23/2023 1:00 PM EST Office Visit Neurology, [place] [address] [place] [address] Oralia Glass MD [address] [place] [address] 12/29/2023 8:10 AM [facility], [facility] [address] [place] [address] [facility] [address] [facility] [place] [address] 01/07/2024 10:00 AM EST Office Visit [facility] [place] [address] [phone] Ivonne French PA-C [address] [facility] [address] 01/31/2024 9:00 AM EDT Imaging Radiology [address] [place] [address] 02/10/2024 11:40 AM EDT Office Visit [facility] [place] [address] [facility] [phone] Ivonne French PA-C [address] [facility] [address] 05/10/2024 8:15 AM EDT Office Visit Ophthalmology, [address] [place] [address] Migel Ramires MD [address] [place] [address] Scheduled Procedures Name Priority Associated Diagnoses Date/Ti [...] 024, 12/25/2022, 09/16/2022, Additional history exists GFR 11/26/2024 11/26/2023, 11/08, 11/25/2023, Additional history exists PAP SMEAR-EVERY 3 YRS,AGES [...] this encounter Medical Devices Implanted Type Area Ship'S Surveyor Device Identifier Shelf Expiration Date Model / Serial / Lot Lens Intraoc 21.0 - [id number] - [id number] Implanted:Qty : 1 on 07/06/2017 by Luis Eduardo Cole MD at OR [facility] Left: Eye [employer] 01/05/2022 [id number] / [id number] / Lens Intraoc 21.0 - [id number] - [id number] Implanted:Qty : 1 on 07/20/2017 by Luis Eduardo Cole MD at OR [facility] Right: Eye [employer] 01/05/2022 [id number] / [id number] / Syringe Prolaryn Del 1.0cc - [id number] Implanted:Qty : 1 on 11/20/2019 by Amber Jain MD at OR [facility] Right: Mouth [employer] 10/21/2021 [id number] / / [id number] Implant Silastic 7 Silicone Sw - [id number] Implanted:Qty : 1 on 05/28/2020 by Farhat Pate MD at OR [facility] Right: Throat [id number] [id number] / / documented as of this encounter Procedures Procedure Name Priority Date/Time Associated Diagnosis Comments ECHO, COMPLETE (2D), TRANS-THORACIC Routine 11/25/2023 4:28 PM EST Chemoprevention documented in this encounter Visit Diagnoses Diagnosis Encounter for antineoplastic chemotherapy- Primary Other ill-defined heart diseases documented in this encounter Administered Medications Inactive Administered Medications - up to 3 most recent administrations Medication Order MAR Action Action Date Dose Rate Site perflutren lipid microsphere inj SUSP 1.956 mg 1.956 mg, Intravenous, ONCE PRN Other, For Echo Only - Suboptimal Echo Images, Starting on Kaity 11/25/23 at 1627, Until Kaity 11/25/23 at 1826, For 2 hours, Administer IVP over 45 seconds, Cardiac Studies_HODHOV Given 11/25/2023 4:28 PM EST 1.956 mg documented in this [...] the patient have Health Care Power of Ebd Special Education Teacher? No Code Status History Code Status [...] and were consensually agreed upon. Care Teams In Home Sales Representative Relationship Specialty Start Date End Date Ivonne French PA-C [address] [facility] [place] [address] PCP - General Physician Quality Control Scientist 07/24/21 documented as of this encounter
--- OUTSIDE RECORDS SUMMARY | 2024-01-29 21:36 | External Medical Summary ---
Author Name Unknown Address Unknown Organization K01:[facility] [place] - [address] [place] [address] Laboratory Report Ordering Provider Test Date Status SONIA VILLARREAL 11/29/2023 06:03:00 Final Observation Date Value Abnormality Reference (Units ) Status Uric Acid 11/29/2023 06:03:00 1.1 Below low normal 2.4 -5.7 (mg/dL) Final Performing Location [facility] [place] - [address] [place] [address]
--- OUTSIDE RECORDS SUMMARY | 2024-01-29 21:37 | External Medical Summary | Summary of Care ---
Author Name Unknown Organization [facility] Address [address] [place] [address] Phone [phone] Care Team Providers Care Deputy Treasurer Name Role Phone Ivonne French PA-C Primary Care Provider [phone] Reason for Visit * Reason Comments NEW PATIENT * Evaluate & Treat - Unlimited Visits (Within 3 days (urgent)) - Authorized Specialty Diagnoses / Procedures Referred By Contsumanth t Referred To Contact Hematology/Oncology / Hematology Oncology Diagnoses Acute myeloid leukemia not having achieved remission (HCC) Shon Rice MD [address] [place] [address] Referral ID Status Reason Start Date Expiration Date Visits Requested Visits Authorized [id number] Authorized Specialty Services Required 11/22/[phone] Encounter Details Date Type Department Care Team (Latest Contact Info) Description 11/23/2023 1:00 PM EST Office Visit Hematology Oncology [facility] [address] [place] [address] Nilton Senior MD [address] [place] [address] Acute myeloid leukemia not having achieved remission (HCC)*; Myelodysplastic disease, not elsewhere classified (HCC); Other myelodysplastic syndromes (HCC) Allergies Active Allergy Reactions Criticality Noted Date Comments Adhesive Tape 04/21/2016 Glue off the old style medical tape. documented as of this encounter (statuses as of 11/24/2023) Medications Medication Sig Dispensed Refills Start Date End Date Status Aspirin 81 MG Tablet Take 1 Tablet by mouth in the morning. 0 Active DULoxetine HCl 60 MG Oral Capsule Delayed Release Particles (Cymbalta) Take 1 Capsule by mouth in the morning. 180 Capsule 0 11/24/2022 Active Lactulose 10 GM/15ML Oral Solution (Constulose)Indica tions:Constipation , unspecified constipation type Take 30 mL by mouth in the morning and 30 mL at noon and 30 mL before bedtime. 240 mL 0 05/25/2023 Active Melatonin 10 MG Oral Capsule Take 1 Capsule by mouth at bedtime. 100 Capsule 3 05/25/2023 Active metFORMIN HCl 1000 MG Oral Tablet (Glucophage)Indica tions:Type 2 diabetes mellitus with hemoglobin A1c goal of 7.0%-8.0% ([facility]) TAKE ONE TABLET BY MOUTH TWICE A DAY WITH MORNING AND EVENING MEALS 180 Tablet 1 05/25/2023 Active Hansen And SonTouch Delica Lancets 33G Use to test blood sugar three times daily E 11.9 300 Each 5 05/25/2023 Active Hansen And SonTouch Verio w/Device Kit Use up to 3 times a day E11.9 1 Kit 0 05/25/2023 Active Pen [place] 32G X 4 MM Use as directed. Use to inject insulin 4 times daily 100 Each 5 05/25/2023 Active Triamcinolone Acetonide 0.1 % External Ointment (Aristocort)Indica tions:Contact dermatitis, unspecified contact dermatitis type, unspecified trigger Apply topically to affected area 2 times a day. Apply to hands and feet 80 g 2 05/25/2023 Active Furosemide 20 MG Oral Tablet (Lasix)Indications :Edema, unspecified type Take 1 Tablet by mouth once a day on Wednesday, Wednesday, and Wednesday only. 90 Tablet 3 06/14/2023 Active Levothyroxine Sodium 150 MCG Oral Tablet [...] 4 Active Linzess 72 MCG Oral Capsule (linaCLOtide)Indic ations:Drug-induce d constipation Take 1 Capsule by mouth daily before breakfast. 90 Capsule 1 10/14/2023 Active Metoprolol Succinate ER 25 MG Oral Tablet Extended Release 24 Hour (toPROL XL)Indications:Cor onary artery disease involving lower [place] coronary artery of lower [place] heart without angina pectoris Take 1.5 Tablets by mouth in the morning. 135 Tablet 1 10/14/2023 Active Omeprazole 20 MG Oral Capsule Delayed Release (PriLOSEC) Take 1 Capsule by mouth in the morning and 1 Capsule before bedtime. 180 Capsule 1 10/14/2023 Active amLODIPine Besylate 2.5 MG Oral Tablet (Norvasc)Indicatio ns:Essential hypertension with goal blood pressure less than 130/80 Take 1 Tablet by mouth in the morning. 90 Tablet 3 10/14/2023 Active Rosuvastatin Calcium 20 MG Oral Tablet (Crestor) Take 1 Tablet by mouth daily. 90 Tablet 3 11/16/2023 Active OneTouch Verio In Vitro Strip (Glucose Blood) Use up to 3 times a day E11.9 400 Strip 3 11/19/2023 Active Insulin Glargine Solostar 100 UNIT/ML Subcutaneous Solution Pen-injector (Lantus SoloStar) Inject 45 Units under the skin at bedtime. 45 mL 3 11/19/2023 Active Insulin Lispro (1 Unit Dial) 100 UNIT/ML Subcutaneous Solution Pen-injector (HumaLOG KwikPen) Inject 24 Units under the skin in the morning and 24 Units at noon and 24 Units in the evening. Inject with meals. 60 mL 3 11/19/2023 Active Allopurinol 300 MG Oral Tablet (Zyloprim)Indicati ons:Acute myeloid leukemia not having achieved remission (HCC) Take 1 Tablet by mouth in the morning. 30 Tablet 2 11/23/2023 Active Hydroxyurea 500 MG Oral Capsule (Hydrea)Indication s:Acute myeloid leukemia not having achieved remission (HCC) Take 1 Capsule by mouth 2 times a day 30 minutes before morning and evening meals. 60 Capsule 0 11/23/2023 Active Allopurinol 300 MG Oral Tablet (Zyloprim)Indicati ons:Acute myeloid leukemia not having achieved remission (HCC) Take 1 Tablet by mouth in the morning. 30 Tablet 2 11/23/2023 4 Discontinue d(Refill) Allopurinol 300 MG Oral Tablet (Zyloprim)Indicati ons:Acute myeloid leukemia not having achieved remission (HCC) Take 1 Tablet by mouth in the morning. 30 Tablet 2 11/23/2023 4 Discontinue d(Refill) documented as of this encounter (statuses as of 11/24/2023) Active Problems Problem Noted Date Diagnosed Date Acute myeloid leukemia not having achieved remis nya 11/24/2023 Osteomyelitis of great toe of left [...] positive 06/07/20 13 Enchondroma of femur 05/10/2013 OBESITY, BMI 30-34 (SEE ACTUAL BMI) 01/30/2010 Overview: Per Obesity Taxonomy Non-toxic multinodular goiter 12/09/2009 Overview: Main path dx was Nodular hyperplasia Postsurgical hypothyroidism 12/09/2009 History of thyroid cancer 12/05/2009 Overview: Incidental finding of a 1 mm focus of 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 Gastroparesis 07/13/2008 Diabetic neuropathy 12/14/2007 Idiopathic scoliosis 05/16/2007 Overview: Mild lower lumbar ADVANCE DIRECTIVE INFORMATION 03/10/2006 Overview: Pt given information Depressive disorder 03/23/2003 Overview: ICD-10 update of inactive term family history ovarian cancer (mother) documented as of this encounter (statuses as of 11/24/2023) Resolved Problems Problem Noted Date Diagnosed Date Resolved Date Toe osteomyelitis, left 05/29/2021 02/0 02/2022 Ulcer of left great toe due to diabetes mellitus 05/29/2021 11/10/2021 Morbid obesity, unspecified obesity type 02/13/2020 04/24/2021 Diabetes mellitus 08/16/2013 11/24/2022 Type 2 diabetes mellitus wit h hemoglobin A1c goal of 7.0%-8.0% 12/03/2011 08/16/2013 Overview: ICD-10 update of inactive term Candidal vulvovaginitis 12/02/201003/08 DM type 2, not at goal 03/23/200308/22 Overview: Modified per Diabetes protocol #14. OBESITY, UNSPECIFIED 03/23/2003 010 Overview: Per Obesity Taxonomy documented as of this encounter (statuses as of 11/24/2023) Immunizations Name Administration Dates Next Due COVID-19 [...] Sign Reading Time Taken Comments Blood Pressure 114/68 11/23/2023 12:51 PM EST ma nurosa Pulse 79 11/23/2023 12:51 PM EST Temperature 36.8 C (98.2 F) 11/23/2023 12:[address] Respiratory Rate 16 11/23/2023 12:51 PM EST Oxygen Saturation 96% 11/23/2023 12:51 PM EST ra Inhaled Oxygen Concentration - - Weight 88.9 kg (196 lb) 11/23/2023 12:51 PM EST Height 172.7 cm (5' 7.99") 11/23/2023 12:[address] Body Mass Index 29.81 11/23/2023 12:51 PM EST documented in this encounter Functional [...] (15 years old or older) No 05/28/20 20 Cognitive Status Response Date of Assessm ent Because of a physical, menta l, or emotional condition, do you have serious difficulty concentrating, remembering, or making decisions? (5 years old or older) No 05/28/2020 documented as of this encounter Progress Notes * Nilton Senior MD - 11/23/2023 1:02 PM EST Images from the original note were not included. 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 Had blood work for that in preparation for that and noted blood work was off Was repeated and then referred to Dr Rice He did additional blood work and bone marrow biopsy NO fevers, chills nights, sweats or weight loss Denies bleeding from any site. 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 Hydroxyurea 500 MG Oral Capsule (Hydrea) Take 1 Capsule by mouth 2 times a day 30 minutes before morning and evening meals. Insulin Glargine Solostar 100 UNIT/ML Subcutaneous Solution Pen-injector (Lantus SoloStar) Inject 45 Units under the skin at bedtime. Insulin Lispro (1 Unit Dial) 100 UNIT/ML Subcutaneous Solution Pen-injector (HumaLOG KwikPen) Inject 24 Units under the skin in the morning and 24 Units at noon and 24 Units in the evening. Inject with meals. OneTouch Verio In Vitro Strip (Glucose Blood) Use up to 3 times a day E11.9 Rosuvastatin Calcium 20 MG Oral Tablet (Crestor) Take 1 Tablet by mouth daily. amLODIPine Besylate 2.5 MG Oral Tablet (Norvasc) Take 1 Tablet by mouth in the morning. Linzess 72 MCG Oral Capsule (linaCLOtide) Take 1 Capsule by mouth daily before breakfast. Metoprolol Succinate ER 25 MG Oral Tablet Extended Release 24 Hour (toPROL XL) Take 1.5 Tablets by mouth in the morning. Omeprazole 20 MG Oral Capsule Delayed Release (PriLOSEC) Take 1 Capsule by mouth in the morning and1 Capsule before bedtime. Mounjaro 10 MG/0.5ML Subcutaneous Solution Pen-injector (Tirzepatide) Inject 10 mg under the skin once a week. Isosorbide Mononitrate ER 30 MG Oral Tablet Extended Release 24 Hour (Imdur) Take 1 Tablet by mouthin the morning. Magnesium 400 MG Oral Tablet Take 1 Tablet by mouth at bedtime. Levothyroxine Sodium 150 MCG Oral Tablet (Synthroid) One tab daily Wednesday through Wednesday - half tabdaily Wednesday and wednesday Furosemide 20 MG Oral Tablet (Lasix) Take 1 Tablet by mouth once a day on Wednesday, Wednesday, and Wednesday only. Lactulose 10 GM/15ML Oral Solution (Constulose) Take 30 mL by mouth in the morning and 30 mL at noon and 30 mL before bedtime. Melatonin 10 MG Oral Capsule Take 1 Capsule by mouth at bedtime. metFORMIN HCl 1000 MG Oral Tablet (Glucophage) TAKE ONE TABLET BY MOUTH TWICE A DAY WITH MORNING AND EVENING MEALS HomeTouch DelRadario Lancets 33G Use to test blood sugar three times daily E 11.9 avoxuch Verio w/Device Kit Use up to 3 times a day E11.9 Pen [place] 32G X 4 MM Use as directed. Use to inject insulin 4 times daily Triamcinolone Acetonide 0.1 % External Ointment (Aristocort) Apply topically to affected area 2 times a day. Apply to hands and feet DULoxetine HCl 60 MG Oral Capsule Delayed Release Particles (Cymbalta) Take 1 Capsule by mouth in the morning. Aspirin 81 MG Tablet Take 1 Tablet by mouth in the morning. 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 Post op Patient Active Problem List Diagnosis Date Noted Osteomyelitis of great toe of left foot (HCC) [M86.9] 11/09/2023 Varicose veins of both lower extremities [I83.93] 06/04/2023 Gastroesophageal reflux disease [K21.9] 08/15/2021 Hyperlipidemia [E78.5] 08/15/2021 Hyperthyroidism [E05.90] 08/15/2021 MEDICATION USE AGREEMENT [HG3877] 08/15/2021 Toe amputee ([facility]) [Z89.429] 07/31/2021 S/P foot surgery, right [Z98.890] 07/17/2021 Major depressive disorder, single episode, mild ([facility]) [F32.0] 01/06/2021 Diabetic polyneuropathy associated with type 2 diabetes mellitus (HCC) [E11.42] 01/06/2021 Vocal fold paralysis, 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/09/2019 Post op HNP (herniated nucleus pulposus), cervical [M50.20] 05/09/2019 Diabetic retinopathy associated with diabetes mellitus due to underlying condition ([facility]) [E08.319] 08/24/2016 Herpes simplex virus infection [B00.9] 06/07/2015 NBA (generalized anxiety disorder) [F41.1] 03/11/2015 Compulsive eating patterns [F50.9] 08/09/2013 Herpes simplex type 1 antibody positive [B00.9] 06/07/2013 Enchondroma of femur [D16.20] 05/10/2013 family history ovarian cancer (mother) [Z84.81] OBESITY, BMI 30-34 (SEE ACTUAL BMI) [E66.9] 01/30/2010 Per Obesity Taxonomy Non-toxic multinodular goiter [E04.2] 12/09/2009 Main path dx was Nodular hyperplasia Postsurgical hypothyroidism [E89.0] 12/09/2009 History of thyroid cancer [Z85.850] 12/05/2009 Incidental finding of a 1 mm focus of 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 Gastroparesis [K31.84] 07/13/2008 Diabetic neuropathy (HCC) [E11.40] 12/14/2007 Idiopathic scoliosis [M41.20] 05/16/2007 Mild lower lumbar ADVANCE DIRECTIVE INFORMATION 03/10/2006 Pt given information Depressive disorder [F32.A] 03/23/2003 ICD-10 update of inactive term Past Surgical History: Procedure Laterality Date AMPUTATION OF TOE Left tip of great toe COLONOSCOPY W/ BIOPSY [...] performed by Farhat Pate MD at [place] [facility] [place]ARYNGOSCOPY, VOCAL CORD INJECTION Right 11/20/2019 LARYNGOSCOPY DIRECT INJECTION VOCAL CORD WITH MICROSCOPE performed by Amber Jain MD at [facility] MISCELLANEOUS ORDER ([facility] ONLY) Bilateral 11/24/2017 Reinheimer-bleph/levators-ou OTHER (3 times) [...] MD at OR [facility] REMOVE CATARACT, INSERT LENS PROSTH Left 07/06/2017 left EXTRACAPSULAR CATARACT REMOVAL WITH INTRAOCULAR LENS performed by Luis Eduardo Cole MD at OR [facility] REMOVE GALLBLADDER 2005 or so Social History Socioeconomic History Marital status: Spouse [...] on file Food Insecurity: No Food Insecurity (12/25/2022) Hunger Vital Sign Worried About Running Out of Food in the Last Year: Never true Ran Out of Food in the Last Year: Never true Transportation Needs: Not on file Physical Activity: Not on file Stress: Not on file Social Connections: Not on file Intimate Partner Violence: Not on file Housing Stability: Not on file Family History Problem Relation Age of Onset Ovarian cancer Mother Multiple Sclerosis Mother Heart Disorder Father Diabetes Brother Diabetes Brother Multiple Sclerosis Grandmother (Maternal) Glaucoma Grandmother (Maternal) Thyroid Disorder Daughter Stroke No significant family history Eye Problems No significant family history Patient denies HX AMD, retinal detachments or blindness Breast Cancer No significant family history Physical Exam: BP 114/68 Comment: manual | Pulse 79 | Temp 36.8 C (98.2 F) (Tympanic) | Resp 16| Ht 1.727 m (5' 7.99") | Wt 88.9 kg (196 lb) | LMP 09/08/2016 | SpO2 96% Comment: ra | BMI 29.81 kg/m | BSA 2.07 m General Appearance: well appearing female in no obvious distress. Skin: Normal HEENT: Normal Neck: Normal - Supple Lymph Nodes: Normal - No palpable lymph nodes in the neck, supraclavicular, axillary, inguinal, or epitrochlear areas Lungs/Thorax:Clear Heart: Normal - S1 S2 + Abdomen: Normal - Soft Musculoskeletal: big toe amputated appears clean and without infection Neurologic: Normal - Grossly intact Results for orders placed or performed in visit on 11/23/23 COMPREHENSIVE METABOLIC PANEL Result Value Ref Range BUN 24 (H) 6 - 20 mg/dL Creatinine 1.0 0.5 - 1.0 mg/dL Estimated Glomerular Filtration Rate 63 >=60 mL/min Sodium 138 135 - 146 mmol/L Potassium 4.5 3.5 - 5.1 mmol/L Chloride 99 98 - 107 mmol/L CO2 26 22 - 32 mmol/L Anion Gap 13 7 - 15 mmol/L Glucose 165 (H) 70 - 120 mg/dL Albumin 4.6 3.8 - 5.0 g/dL AST 27 10 - 35 U/L Alkaline Phosphatase 63 35 - 130 U/L Bilirubin, Total 0.4 <=1.2 mg/dL Calcium 9.6 8.4 - 10.2 mg/dL Protein 7.7 6.0 - 8.3 g/dL ALT 14 10 - 35 U/L URIC ACID Result Value Ref Range Uric Acid 7.0 (H) 2.4 - 5.7 mg/dL PHOSPHORUS Result Value Ref Range Phosphorus 4.3 2.5 - 4.8 mg/dL LD Result Value Ref Range LD 506 (H) <=250 U/L CBC Result Value Ref Range WBC 15.67 (H) 4.00 - 10.80 K/uL RBC 4.27 3.85 - 5.15 M/uL HGB 12.1 12.0 - 15.3 g/dL HCT 36.3 36.0 - 45.2 % MCV 85.0 81.5 - 97.5 fL MCH 28.3 27.0 - 34.0 pg MCHC 33.3 32.0 - 36.0 g/dL RDW 19.7 11.5 - 15.5 % PLT 123 (L) 140 - 400 K/uL MPV 8.7 6.6 - 11.1 fL nRBCs 1 (H) <=0 /100 WBCs DIFFERENTIAL, TECHNOLOGIST REVIEW Result Value Ref Range WBC 15.67 (H) 4.00 - 10.80 K/uL Neutrophils % 3.0 (L) 40.0 - 75.0 % Lymphocytes % 80.0 (H) 18.0 - 42.0 % Monocytes % 2.0 1.0 - 11.0 % Eosinophils % 2.0 0.0 - 6.0 % Blasts % 13.0 (H) <=0.0 % Absolute Neutrophils 0.47 (L) 1.80 - 7.70 K/uL Absolute Lymphocytes 12.54 (H) 1.00 - 4.80 K/uL Absolute Monocytes 0.31 0.00 - 1.10 K/uL Absolute Eosinophils 0.31 0.00 - 0.70 K/uL Absolute Blasts 2.04 (H) <=0.00 K/uL Reactive Lymphocytes Present (A) None Seen *Note: Due to a large number of results and/or encounters for the requested time period, some results have not been displayed. A complete set of results can be found in Results Review. MRI FOOT LEFT W WO CONTRAST Result Date: 10/01/2023 IMPRESSION No evidence of osteomyelitis or abscess. MRI L SPINE W WO CONTRAST Result Date: 06/04/2023 IMPRESSION: Multilevel degenerative changes of the lumbar spine as described above, without evidence of a high-grade canal or foraminal stenosis. No suspicious enhancing abnormalities. Path: [facility] RAPID ACUTE LEUKEMIA GENE PANEL, NEXT GENERATION SEQUENCING Specimen: Bone Marrow, Aspirate Result Value Ref Range Result Summary This is a PRELIMINARY REPORT. Refer to [facility] Hematology Gene Panel (GP) final report for additional variants detected. The results of complete testing and interpretation will be issued in the [facility] final report, which could contain information that may influence therapy decisions. Gene Result GeneBank Accession Exons FLT3 Mutation not detected [id number] 8, 11, 14, 15, 16, 20, 23, 24 IDH1 Mutation not detected [id number] 4 IDH2 Mutation not detected [id number] 5 KMT2A Mutation not detected [id number] 2, 7, 8, 9, 10, 11 NPM1 Mutation not detected [id number] 11 TP53 Mutation detected [id number] 2, 3, 4, 5, 6, 7, 8, 9, 10, 11 [id number] 10 Fusion Client Partner Gene Result Common Fusion Partners Tested (see complete list in methodology) ABL1 Fusion not detected BCR t(9;22) CBFB Fusion not detected MYH11 inv(16)/t(16;16) CREBBP Fusion not detected KAT6A t(8;16) ETV6 Fusion not detected MECOM t(3;12), RUNX1 t(12;21) KMT2A Fusion not detected AFF1 t(4;11), MLLT3 t(9;11), MLLT4 t(6;11), MLLT10 t(10;11) MECOM Fusion not detected ETV6 t(3;12), RUNX1 t(3;21) UID245 Fusion not detected DEK t(6;9) MARLYS Fusion not detected PML t(15;17) RUNX1 Fusion not detected ETV6 t(12;21), MECOM t(3;21), XWMD3N2 t(8;21) Result Detail Gene Variant Tier Amino Acid Change Nucleotide Change Consequence Allele Frequency Sequencing Depth TP53 V173M Tier 2: Potential significance p.Pmn435Zdr [id number]: c.517G>A Missense Variant 91.5% [address] Lia Ponce FLOW CYTOMETRY, LEUKEMIA LYMPHOMA PANEL Result Value Ref Range Indication for Flow Testing Neutropenia, blasts in the peripheral smear Viability (%) Specimen A: 80 % Cell Count Specimen A: Cells/uL in mL of Fluid 29491 Cells/uL in 3.0 mL of fluid Gross Description A. Bone Marrow, Aspirate. Specimen: A, Source: Bone Marrow, Aspirate See Flow Interpretation Bone marrow aspirate: - 77% blasts, consistent with acute myeloid leukemia. COMMENT: Blasts comprise 77% of total events analyzed and express (dim to negative)CD45, CD13, CD33, CD38, CD43, CD117, and (dim)HLA-DR. They are negative for CD2, CD3, CD4, CD5, CD7, CD8, CD10, CD11b, CD14, CD15, CD16, CD19, CD20, CD22, CD23, CD56, CD64, FMC-7, kappa, and lambda. These findings are consistent with prior peripheral blood analysis (please see [id number] for cytoplasmic markers). Correlation with morphology ([id number]) and the complete clinicopathologic work-up is required for finalclassification. BLASTS: Increased blast population identified, see above comment. LYMPHOCYTES: Lymphocytes (identified by CD45 vs. SSC) comprise 7% of total events analyzed. B-cellscomprise 6% of total lymphocytes and show a normal kappa:lambda ratio. No abnormal B-cell antigen expression is seen. CD3+ T-cells comprise 88% of total lymphocytes and show a slightly decreased CD4:CD8 ratio [0.9:1]. No aberrant T-cell antigen expression is identified with the antibodies examined.NK cells (CD3- CD56+) comprise 4% of total lymphocytes. PLASMA CELLS: No significant increase in (bright)CD38+ plasma cells. MYELOID/MONOCYTIC CELLS: No significant maturing myeloid or monocytic populations identified by CD45 vs. SSC. Markers Performed A1: KAPPA (FITC), LAMBDA (PE), CD5 (GQSELMD22), CD19 (PE-CY7), CD20 (APC), CD23 (APC R700), CD45 (APCH7), FMC7 (BV450), CD43 RUO (BV510), CD10 (BV605). A2: CD8 (FITC), CD16 (PE), CD3 (USJMENL34), CD5(PE-CY7), CD14 (APC), CD56 (APC R700), CD45 (APCH7), CD2 (BV450), CD4 (BV510), CD7 (BV605). A3: CD7(FITC), CD64 (PE), CD38 (JPDUXEM09), CD33 (PE-CY7), CD13 (APC), CD34 (APC R700), CD45 (APCH7), CD14 (BV450), YO87-F818 (BV510), CD117 (BV605). A4: CD16 (FITC), CD11B (PE), CD22 (OKILHQM08), CD19 (PE-CY7), HLADR (APC), CD45 (APCH7), CD15 (BV450), CD10 (BV605), CD34 (APC R700). Performing Labs AML FAVORABLE-RISK FISH PANEL Result Value Ref Range External Lab Report See Scanned Report PML/MARLYS T(15;17) FISH Result Value Ref Range External Lab Report See Scanned Report AML [id number] FISH PANEL Result Value Ref Range External Lab Report See Scanned Report BONE MARROW WITH REFLEX TESTING Result Value Ref Range Diagnosis Bone marrow, right posterior iliac crest, aspirate, biopsy, clot, touch imprints, and peripheral blood: - Acute myeloid leukemia, pending ancillary testing for final classification. Comment: Flow cytometric immunophenotypic analysis ([id number]) shows 77% blasts, consistent with acute myeloid leukemia. Ancillary studies including immunohistochemical stains, AML FISH panels, hematology gene panel, andchromosome analysis are pending. These results require correlation with morphology and clinical history for final disease classification. Please see Comprehensive Bone Marrow Consultation when complet ed. Clinical History Neutropenia, blasts in the peripheral smear Bone Marrow Aspirate Microscopic Findings Aspirate Adequacy: adequate cellularity. Core Touch Imprint Adequacy: adequate cellularity. Blasts: marked increase in blasts with morphology consistent with peripheral blood . Myelopoiesis: markedly decreased . Erythropoiesis: markedly decreased . Megakaryocytes: few megakaryocytes seen . Iron Status Stainable Iron: decreased 1+. Ring Sideroblasts: occasional ring sideroblasts seen . Bone Marrow Biopsy and Clot Microscopic Findings Core Biopsy Adequacy: adequate. Clot Section Adequacy: adequate. Marrow Cellularity: 80-90% hypercellular. Cellular Composition: similar to aspirate smears; marked diffuse and interstitial increase in blasts with occasional erythroid islands and few scattered megakaryocytes. Trabecular Bone: unremarkable. Peripheral Blood Microscopic Findings CBC resulted date/time: 11/17/2023 1428 EST. WBC: 9.25 K/uL, HGB: 12.6 g/dL, MCV: 88.4 fL, RDW: 18.8 %, PLT: 134 K/uL Red Blood Cells: normocytic anemia with moderate anisocytosis; rare circulating nucleated red bloodcell . White Blood Cells: 54% blasts that are medium to large in size with round nuclear contours and scant to moderate basophilic cytoplasm and occasional cytoplasmic vacuoles . Platelets: decreased in number; occasional large and/or giant platelets. Bone Marrow Aspirate Differential Value % Reference Range % Blasts 80 0-3 Neutrophils and other late precursors 1 22-40 Erythroid precursors 5 15-25 Lymphocytes 14 10-15 Peripheral Blood Differential Value % Reference Range % Neutrophils 3 40-75 Lymphocytes 39 18-42 Monocytes 2 1-11 Eosinophils 2 0-6 Blasts 54 <=0 Nucleated Red Blood Cells/100 WBC 1 <=0 Gross Description B. Bone Marrow Biopsy, Right Iliac Crest. Received in B+ fixative with a container labeled with "gAuto", "[id number]", "1965" and "right iliac crest". Received is a red-brown cylindrical portion of bone measuring 1.6 x 0.2 cm. The specimen is wrapped and submitted in B1 following decalcification. Grossed By: VICTORINA Corrales. Bone Marrow Clot, Right Iliac Crest. Received in B+ fixative with a container labeled with "[employer]", "[id number]", "1965" and " right iliac crest". Received is a 4.5 x 3.0 x 0.5 cm aggregate of red-brown blood clot. The specimen is wrapped and submitted entirely in C1-C6 . Gross By: VICTORINA Sign Out Location Pathologist sign out performed at [facility] ([facility] [address] [place] [id number]. *Note: Due to a large number of results and/or encounters for the requested time period, some results have not been displayed. A complete set of results can be found in Results Review. FISH inv(3)/t(3;3): Not Detected Del(5q): DETECTED Monosomy 7: DETECTED Trisomy 8: Not Detected Del(17p) TP53: Not Detected t(6;9): Not Detected ETV6 Rearrangement: Not Detected KMT2A(MLL) Rearrangement: Not Detected (see below) ?Loss of Runx1 or chromosome 21/21q Objective Assessment:Juany Resendez is a 58 year old female with AML Plan: AML: Reviewed pathology with the patient. She has acute myeloid leukemia. 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 I reviewed the natural history of the disease and given her poor risk features she would necessarily need a bone marrow transplant to achieve cure. We discussed therapeutic options and given her poor risk features I would favor using a combinationof decitabine and venetoclax. I gave her printed information about these medications. Wanted to wait and have a blood count done to see if her white count is rising rapidly unfortunately she left as she was told to leave after her blood counts. I prescribed allopurinol for her and have also prescribed hydroxyurea 500 mg twice a day restarted tonight. Shall have her get blood counts again 117 if she is rising rapidly she may need to be admitted to the hospital for cytoreduction and possibly starting induction therapy with decitabine and venetoclax with ramp up of venetoclax done in the hospital Full cytogenetics and NGS panel is currently pending Spoke to Dr Wakefield for admission to the hospital Patient accepted Spoke to Transfer center they will call once bed available Nilton Senior MD Hematology Oncology [address] [phone] documented in this encounter Nursing Notes * Jan Garner, MED ASSIST - 11/23/2023 12:55 PM EST Patient was instructed to not get up on the exam table/exam chair until directed and assisted by their provider; patient is to remain seated in the chair/ wheelchair/ exam table/ exam chair for fall prevention and safety reasons. Patient is aware to have assistance to step down off exam table/exam chair with personnel. Patient voiced full comprehension of instructions. Room 14 documented in this encounter Plan of Treatment Upcoming Encounters Date Type Department Care Team (Late st Contact Info) Description 12/16/2023 11:20 AM EST Office Visit [facility] [place] [address] [facility] [phone] Ivonne French PA-C [address] [facility] [address] 12/16/2023 1:45 PM EST Office Visit [facility]ology[facility]On[facility] [address] [facility] [address] Shon Rice MD [address] [facility] [address] 12/23/2023 1:00 PM EST Office Visit Neurology, [place] [address] [place] [phone] Oralia Glass MD [address], [place] [phone] 12/29/2023 8:10 AM EST Pharmacy Pharmacy, [facility] [address] [facility] [place] [address] [facility] [address] [facility] [place] [address] 01/07/2024 10:00 AM EST Office Visit [facility] [address] [facility] [phone] Ivonne French PA-C [address] [facility] [address] 01/31/2024 9:00 AM EDT Imaging Radiology [address] [facility] [place] [address] 02/10/2024 11:40 AM EDT Office Visit [facility] [address] [facility] [place] [phone] Ivonne French PA-C [address] [place] [address] 05/10/2024 8:15 AM EDT Office Visit Ophthalmology, [place] [address] [place] [address] Migel Ramires MD [address] [place] [address] Pending Results Name Type Priority Associated Diagnoses Date /Time APTT Lab Routine Acute myeloid leukemia not having achieved remission (HCC) Myelodysplastic disease, not elsewhere classified (HCC) 11/24/2023 9:57 AM EST FIBRINOGEN Lab Routine Acute myeloid leukemia not having achieved remission (HCC) 11/24/2023 9:57 AM EST D-DIMER Lab Routine Acute myeloid leukemia not having achieved remission (HCC) 11/24/2023 9:57 AM EST Scheduled Orders Name Type Priority Associated Diagnoses Orde r Schedule CBC WITH WBC DIFFERENTIAL Lab Routine Acute myeloid leukemia not having achieved remission (HCC) 5 Occurrences starting 11/23/2023 until 11/23/2024, 1 completed URIC ACID Lab Routine Acute myeloid leukemia not having achieved remission (HCC) Every , , Sat for 5 Occurrences starting 11/23/2023 until 11/23/2024 LD Lab Routine Acute myeloid leukemia not having achieved remission (HCC) Every , urs, Sat for 5 Occurrences starting 11/23/2023 until 11/23/2024 TYPE AND SCREEN Lab Routine Acute myeloid leukemia not having achieved remission (HCC) Every , , Sat for 5 Occurrences starting 11/23/2023 until 01/22/2024 ABO/RH Lab Routine Acute myeloid leukemia not having achieved remission (HCC) Every , urs, Sat for 5 Occurrences starting 11/23/2023 until 01/22/2024 Scheduled Procedures Name Priority Associated Diagnoses Date/Ti [...] 024, 12/25/2022, 09/16/2022, Additional history exists GFR 11/23/2024 11/23/2023, 11/08, 11/09/2023, Additional history exists PAP SMEAR-EVERY 3 YRS,AGES 18-100 09/09/2026 09/09/2023, 12/12/2021, 12/20/2015, Additional history exists COLONOSCOPY-EVERY 5 YRS AGES 18-100 06/03/2027 06/03/2022, 06/03/2022, 12/16/2016, Additional history exists Lipid Panel 11/15/2028 11/15/2023, 12/09, 07/23/2021, Additional history exists DTaP,Tdap,and Td Vaccines (4 - Td or Tdap) 09/24/2031 09/24/2021, 10/26/2019, 02/28/2009 GARDASIL-HPV IMMUNIZATION SERIES Aged Out No longer eligible based on patient's age to complete this topic MENINGOCOCCAL (MENACTRA/MENVEO) Aged Out No longer eligible based on patient's age to complete this topic Zoster Vaccines Discontinued documented as of this encounter Medical Devices Implanted Type Area [employer] Manager Device Identifier Shelf Expiration Date Model / Serial / Lot Lens Intraoc 21.0 - [id number] - [id number] Implanted:Qty : 1 on 07/06/2017 by Luis Eduardo Cole MD at OR [facility] Left: Eye [employer] 01/05/2022 [id number] / [id number] / Lens Intraoc 21.0 - [id number] - [id number] Implanted:Qty : 1 on 07/20/2017 by Luis Eduardo Cole MD at OR [facility] Right: Eye [employer] 01/05/2022 [id number] / [id number] / Syringe Prolaryn Del 1.0cc - [id number] Implanted:Qty : 1 on 11/20/2019 by Amber Jain MD at [place] [facility] Right: Mouth [employer] 10/21/2021 [id number] / / [id number] Implant Silastic 7 Silicone Sw - [id number] Implanted:Qty : 1 on 05/28/2020 by Farhat Pate MD at [place] [facility] Right: Throat [employer] [id number] / / documented as of this encounter Procedures Procedure Name Priority Date/Time Associated Diagnosis Comments PT INR Routine 11/24/2023 9:57 AM EST Acute myeloid leukemia not having achieved remission (HCC) Other myelodysplastic syndromes (HCC) DIFFERENTIAL, AUTOMATED Routine 11/23/2023 2:08 PM EST Acute myeloid leukemia not having achieved remission (HCC) COMPREHENSIVE METABOLIC PANEL STAT 11/23/2023 2:08 PM EST Acute myeloid leukemia not having achieved remission (HCC) CBC Routine 11/23/2023 2:08 PM EST Acute myeloid leukemia not having achieved remission (HCC) PHOSPHORUS Routine 11/23/2023 2:08 PM EST Acute myeloid leukemia not having achieved remission (HCC) LD Routine 11/23/2023 2:08 PM EST Acute myeloid leukemia not having achieved remission (HCC) CBC Routine 11/23/2023 2:08 PM EST Acute myeloid leukemia not having achieved remission (HCC) DIFFERENTIAL, TECHNOLOGIST REVIEW Routine 11/23/2023 2:08 PM EST Acute myeloid leukemia not having achieved remission (HCC) URIC ACID Routine 11/23/2023 2:08 PM EST Acute myeloid leukemia not having achieved remission (HCC) documented in this encounter Results * PT INR (11/24/2023 9:57 AM EST) Pathologist [facility] [place] Prothrombin Time 14.2 11.6 - 15.2 seconds 11/24/2023 10:17 AM EST [facility] INR 1.1 0.8 - 1.2 11/24/2023 10:17 AM EST [facility] Blood Venous blood specimen / Unknown Venipuncture / Unknown 11/24/2023 9:57 AM EST 11/24/2023 9:57 AM EST Narrative [facility] - 11/24/2023 10:17 AM EST Warfarin Therapy INR: 2.0-3.0 conventional anticoagulation INR: 2.5-3.5 high intensity anticoagulation Nilton Senior MD LAB BLOOD ORDERABLES [facility] [place] [address] * (ABNORMAL) DIFFERENTIAL, TECHNOLOGIST REVIEW (11/23/2023 2:08 PM EST) Pathologist [facility] [place] WBC 15.67(H) 4.00 - 10.80 K/uL 11/23/2023 2:46 PM EST LAB[facility]ATORY [facility] Neutrophils % 3.0(L) 40.0 - 75.0 % 11/23/2023 2:46 PM EST [facility] Lymphocytes % 80.0(H) 18.0 - 42.0 % 11/23/2023 2:46 PM EST [facility] Monocytes % 2.0 1.0 - 11.0 % 11/23/2023 2:46 PM EST [facility] Eosinophils % 2.0 0.0 - 6.0 % 11/23/2023 2:46 PM EST [facility] Blasts % 13.0(H) <=0.0 % 11/23/2023 2:46 PM EST [facility] Absolute Neutrophils 0.47(L) 1.80 - 7.70 K/uL 11/23/2023 2:46 PM EST [facility] Absolute Lymphocytes 12.54(H) 1.00 - 4.80 K/uL 11/23/2023 2:46 PM EST [facility] Absolute Monocytes 0.31 0.00 - 1.10 K/uL 11/23/2023 2:46 PM EST [facility] Absolute Eosinophils 0.31 0.00 - 0.70 K/uL 11/23/2023 2:46 PM EST [facility] Absolute Blasts 2.04(H) <=0.00 K/uL 11/23/2023 2:46 PM EST [facility] Reactive Lymphocytes Present(A ) None Seen 11/23/2023 2:46 PM EST [facility] Blood Venous blood specimen / Unknown Venipuncture / Unknown 11/23/2023 2:08 PM EST 11/23/2023 2:09 PM EST Nilton Senior MD LAB BLOOD ORDERABLES [facility] [address] [place] [address] * DIFFERENTIAL, AUTOMATED (11/23/2023 2:08 PM EST) Blood Venous blood specimen / Unknown Venipuncture / Unknown 11/23/2023 2:08 PM EST 11/23/2023 2:09 PM EST Nilton Senior MD LAB BLOOD ORDERABLES [facility] [address] [place] [address] * (ABNORMAL) CBC (11/23/2023 2:08 PM EST) WBC 15.67(H) 4.00 - 10.80 K/uL 11/23/2023 2:15 PM EST [facility] RBC 4.27 3.85 - 5.15 M/uL 11/23/2023 2:15 PM EST [facility] HGB 12.1 12.0 - 15.3 g/dL 11/23/2023 2:15 PM EST [facility] HCT 36.3 36.0 - 45.2 % 11/23/2023 2:15 PM EST [facility] MCV 85.0 81.5 - 97.5 fL 11/23/2023 2:15 PM EST [facility] MCH 28.3 27.0 - 34.0 pg 11/23/2023 2:15 PM EST [facility] MCHC 33.3 32.0 - 36.0 g/dL 11/23/2023 2:15 PM EST [facility] RDW 19.7 11.5 - 15.5 % 11/23/2023 2:15 PM EST [facility] PLT 123(L) 140 - 400 K/uL 11/23/2023 2:15 PM EST [facility] MPV 8.7 6.6 - 11.1 fL 11/23/2023 2:15 PM EST [facility] nRBCs 1(H) <=0 /100 WBCs 11/23/2023 2:15 PM EST [facility] Blood Venous blood specimen / Unknown Venipuncture / Unknown 11/23/2023 2:08 PM EST 11/23/2023 2:09 PM EST Nilton Senior MD LAB BLOOD ORDERABLES Performing Organization Address [facility]/ZIP Co de Phone Number LAB[facility]ATORY [facility] [address] [place] [address] * (ABNORMAL) LD (11/23/2023 2:08 PM EST) LD 506(H) <=250 U/L 11/23/2023 2:47 PM EST [facility] Comment:Result may be falsel y elevated due to hemolysis. Blood Venous blood specimen / Unknown Venipuncture / Unknown 11/23/2023 2:08 PM EST 11/23/2023 2:15 PM EST Nilton Senior MD LAB BLOOD ORDERABLES Performing Organization Address [facility] Co de Phone Number [facility]ATORY [facility] [address] [place] [address] * PHOSPHORUS (11/23/2023 2:08 PM EST) Pathologist [facility] Phosphorus 4.3 2.5 - 4.8 mg/dL 11/23/2023 2:47 PM EST [facility] Blood Venous blood specimen / Unknown Venipuncture / Unknown 11/23/2023 2:08 PM EST 11/23/2023 2:15 PM EST Nilton Senior MD LAB BLOOD ORDERABLES Performing Organization Address [facility] Co de Phone Number LAB[facility]ATORY [facility] [address] [place] [address] * (ABNORMAL) URIC ACID (11/23/2023 2:08 PM EST) Uric Acid 7.0(H) 2.4 - 5.7 mg/dL 11/23/2023 2:47 PM EST [facility] Blood Venous blood specimen / Unknown Venipuncture / Unknown 11/23/2023 2:08 PM EST 11/23/2023 2:15 PM EST Nilton Senior MD LAB BLOOD ORDERABLES [facility] [address] [place] [address] * (ABNORMAL) COMPREHENSIVE METABOLIC PANEL (11/23/2023 2:08 PM EST) BUN 24(H) 6 - 20 mg/dL 11/23/2023 2:47 PM EST [facility] Creatinine 1.0 0.5 - 1.0 mg/dL 11/23/2023 2:47 PM EST [facility] Estimated Glomerular Filtration Rate 63 >=60 mL/min 11/23/2023 2:47 PM EST [facility] Comment:eGFR is calculated b ased on the CKD-EPI 2020 equation Sodium 138 135 - 146 mmol/L 11/23/2023 2:47 PM EST [facility] Potassium 4.5 3.5 - 5.1 mmol/L 11/23/2023 2:47 PM EST [facility] Chloride 99 98 - 107 mmol/L 11/23/2023 2:47 PM EST [facility] CO2 26 22 - 32 mmol/L 11/23/2023 2:47 PM EST [facility] Anion Gap 13 7 - 15 mmol/L 11/23/2023 2:47 PM EST [facility] Glucose 165(H) 70 - 120 mg/dL 11/23/2023 2:47 PM EST [facility] Albumin 4.6 3.8 - 5.0 g/dL 11/23/2023 2:47 PM EST [facility] AST 27 10 - 35 U/L 11/23/2023 2:47 PM EST [facility] Comment:Result may be falsel y elevated due to hemolysis. Alkaline Phosphatase 63 35 - 130 U/L 11/23/2023 2:47 PM EST [facility] Bilirubin, Total 0.4 <=1.2 mg/dL 11/23/2023 2:47 PM EST [facility] Calcium 9.6 8.4 - 10.2 mg/dL 11/23/2023 2:47 PM EST [facility] Protein 7.7 6.0 - 8.3 g/dL 11/23/2023 2:47 PM EST [facility] ALT 14 10 - 35 U/L 11/23/2023 2:47 PM EST [facility] Blood Venous blood specimen / Unknown Venipuncture / Unknown 11/23/2023 2:08 PM EST 11/23/2023 2:15 PM EST Nilton Senior MD LAB BLOOD ORDERABLES [facility] [address] [place] [address] documented in this encounter Visit Diagnoses Diagnosis Acute myeloid leukemia not having achieved remission (HCC)- Primary Myelodysplastic disease, not elsewhere classified (HCC) Other myelodysplastic syndromes (HCC) documented in this encounter Advance Directives Latest Code Status on File Code Status Date Activated Date Inactivated Comments Full Code 05/28/2020 5:20 PM 05/29/2020 6:19 PM Question Answer Comments Discussion of Advance Direct karen occurred with: Not Discussed Code Status History Code Status Date Activated Date Inactivated Comments Full Code 07/20/2017 6:51 AM 07/20/2017 12:59 PM This order reflects the patients wishes and were consensually agreed upon. Full Code 07/06/2017 7:58 AM 07/06/2017 1:37 PM This order reflects the patients wishes and were consensually agreed upon. Care Teams Deputy Treasurer Relationship Specialty Start Date End Date Ivonne French PA-C [address] [place] [facility] [place] [address] PCP - General Physician [employer] M[employer] 07/24/21 documented as of this encounter
--- OUTSIDE RECORDS SUMMARY | 2024-01-29 21:37 | External Medical Summary ---
Author Name Unknown Address Unknown Organization K01:LABORATORY [address] [facility] [address] Laboratory Report Ordering Provider Test Date Status SANJU SAHU 11/25/2023 06:49:00 Final Observation Date Value Abnormality Reference (Units ) Status HIV 1+2 Ab+HIV1 p24 Ag [Presence] in Serum or Plasma by Immunoassay 11/25/2023 06:49:00 Negative Negative Final Negative HIV-1/2 antigen and antibody screening tset results usually indicate the absence of HIV-1 and HIV-2 infection. However, such negative results do not rule-out acute HIV infection. If acute HIV-1 infection is highly suspected, it is recommended that a specimen be submitted for detection of HIV-1 RNA. Performing Location LABORATORY [facility] - [address] [facility] [address]
--- OUTSIDE RECORDS SUMMARY | 2024-01-29 21:37 | External Medical Summary ---
Author Name Unknown Address Unknown Organization : Laboratory Report Ordering Provider Test Date Status ELVIA DE DIOS 11/26/2023 11:05:43 Final Observation Date Value Abnormality Reference (Units ) Status Glucose Point of Care 11/26/2023 11:05:43 135 Above high normal 70-120 (mg/dL) Final Performing Location
--- OUTSIDE RECORDS SUMMARY | 2024-01-29 21:37 | External Medical Summary ---
Author Name Unknown Address Unknown Organization : Laboratory Report Ordering Provider Test Date Status SONIA VILLARREAL 11/26/2023 06:59:00 Final Observation Date Value Abnormality Reference (Units ) Status Performing Location
--- OUTSIDE RECORDS SUMMARY | 2024-01-29 21:37 | External Medical Summary ---
Author Name Unknown Address Unknown Organization : Laboratory Report Ordering Provider Test Date Status ELVIA DE DIOS 11/25/2023 06:38:13 Final Observation Date Value Abnormality Reference (Units ) Status Glucose Point of Care 11/25/2023 06:38:13 199 Above high normal 70-120 (mg/dL) Final Performing Location
--- OUTSIDE RECORDS SUMMARY | 2024-01-29 21:37 | External Medical Summary ---
Author Name Unknown Address Unknown Organization K01:LAB[facility]ATORY [facility] - [address] [place] [address] Laboratory Report Ordering Provider Test Date Status SONIA VILLARREAL 11/26/2023 07:00:00 Final Observation Date Value Abnormality Reference (Units ) Status Uric Acid 11/26/2023 07:00:00 1.1 Below low normal 2.4 -5.7 (mg/dL) Final Performing Location LABORATORY [facility] - [address] [place] [address]
--- OUTSIDE RECORDS SUMMARY | 2024-01-29 21:37 | External Medical Summary ---
Author Name Unknown Address Unknown Organization K01:LABORATORY [facility] - [address] [place] [facility] [place] [address] Laboratory Report Ordering Provider Test Date Status SONIA VILLARREAL 11/26/2023 07:00:00 Final Observation Date Value Abnormality Reference (Units ) Status BUN 11/26/2023 07:00:00 24 Above high normal 6-20 (mg/dL) Final Creatinine 11/26/2023 07:00:00 1.1 Above high normal 0.5-1.0 (mg/dL) Final Glomerular filtration rate/1.73 sq M.predicted [Volume Rate/Area] in Serum, Plasma or Blood by Creatinine-based formula (CKD-EPI) 11/26/2023 07:00:00 56 Below low normal >=60 (mL/min) Final eGFR is calculated based on the CKD-EPI 2020 equation SODIUM 11/26/2023 07:00:00 139 135-146 (m mol/L) Final Potassium 11/26/2023 07:00:00 4.3 3.5-5.1 (m mol/L) Final Cl 11/26/2023 07:00:00 103 98-107 (mm ol/L) Final CO2 11/26/2023 07:00:00 23 22-32 (mmo l/L) Final Anion gap 11/26/2023 07:00:00 13 7-15 (mmol /L) Final Glucose 11/26/2023 07:00:00 125 Above high normal 70 -120 (mg/dL) Final Albumin 11/26/2023 07:00:00 4.4 3.8-5.0 (g /dL) Final AST (Aspartate aminotransferase) 11/26/2023 07:00:00 28 10-35 (U/L) Fin al Alk Phos 11/26/2023 07:00:00 58 35-130 (U/ L) Final Bilirubin, Total 11/26/2023 07:00:00 0.3 <=1 .2 (mg/dL) Final Calcium 11/26/2023 07:00:00 9.3 8.4-10.2 ( mg/dL) Final Protein 11/26/2023 07:00:00 6.8 6.0-8.3 (g /dL) Final ALT (Alanine aminotransferase) 11/26/2023 07:00:00 12 10-35 (U/L) Colin lee Performing Location LABORATORY [facility] - [address] [facility] [address]
--- OUTSIDE RECORDS SUMMARY | 2024-01-29 21:37 | External Medical Summary | Summary of Care ---
Author Name Unknown Organization [facility] Address [address] [facility] [address] Phone [phone] Care Team Providers Care Staff Rn Name Role Phone Ivonne French PA-C Primary Care Provider [phone] Encounter Details Date Type Department Care Team (Late st Contact Info) Description 11/25/2023 Population Health External Data Unspecified Department Allergies Active Allergy Reactions Criticality Noted Date Comments Adhesive Tape 04/21/2016 Glue off the old style medical tape. documented as of this encounter (statuses as of 11/25/2023) Medications Medication Sig Dispensed Refills Start Date [...] hemoglobin A1c goal of 7.0%-8.0% ([facility]) TAKE ONE TABLET BY MOUTH TWICE A DAY WITH MORNING AND EVENING MEALS 180 Tablet 1 05/25/2023 Suspended Additional Information OneTouch Delica Lancets 33G Use to test blood sugar three times daily E 11.9 300 Each 5 05/25/2023 Suspended Additional Information OneTouch Verio w/Device Kit Use up to 3 times a day E11.9 1 Kit 0 05/25/2023 Suspended Additional Information Pen [place] 32G X 4 MM Use as directed. 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 Take 1.5 Tablets [...] as of this encounter (statuses as of 11/25/2023) Active Problems Problem Noted Date Diagnosed Date [...] as of this encounter (statuses as of 11/25/2023) Resolved Problems Problem Noted Date Diagnosed Date [...] as of this encounter (statuses as of 11/25/2023) Immunizations Name Administration Dates Next Due COVID-19 [...] Description 12/16/2023 11:20 AM EST [facility] [address] [facility] [phone] Ivonne French PA-C [address] [facility] [place] [address] 12/16/2023 1:45 PM EST Office Visit Hematology/Oncology [facility] [address] [facility] [place] [address] Shon Rice MD [address] [facility] [place] [address] 12/23/2023 1:00 PM EST Office Visit Neurology, [place] [address] [place] [phone] Oralia Glass MD [address] [place], [place] [phone] 12/29/2023 8:10 AM EST Pharmacy Pharmacy, [facility] [address] [facility] [place] [address] [facility] [place] [address] 01/07/2024 10:00 AM EST Office Visit [place] [address] [facility] [phone] Ivonne French PA-C [address] [facility] [address] 01/31/2024 9:00 AM EDT Imaging Radiology [facility] [address] [facility] [place] [address] [place] [address] 02/10/2024 11:40 AM EDT Office Visit [facility] [address] [facility] [phone] Ivonne French PA-C [address] [facility] [address] 05/10/2024 8:15 AM EDT Office Visit Ophthalmology, [place] [address] [place] [address] Migel Ramires MD [address] [place] [address] Scheduled Procedures Name Priority Associated Diagnoses Date/Ti [...] 024, 12/25/2022, 09/16/2022, Additional history exists GFR 11/25/2024 11/25/2023, 11/08, 11/17/2023, Additional history exists PAP SMEAR-EVERY 3 YRS,AGES [...] this encounter Medical Devices Implanted Type Area Public Relations Sales Marketing Device Identifier Shelf Expiration Date Model / Serial / Lot Lens Intraoc 21.0 - [id number] - [id number] Implanted:Qty : 1 on 07/06/2017 by Luis Eduardo Cole MD at OR [facility] Left: Eye BAUSCH [employer] LOMB 01/05/2022 [id number] / [id number] / Lens Intraoc 21.0 - [id number] - [id number] Implanted:Qty : 1 on 07/20/2017 by Luis Eduardo Cole MD at OR [facility] Right: Eye BAUSCH [employer] LOMB 01/05/2022 [id number] / [id number] / Syringe Prolaryn Del 1.0cc - [id number] Implanted:Qty : 1 on 11/20/2019 by Amber Jain MD [place] [facility] Right: Mouth [employer] 10/21/2021 [id number] / / [id number] Implant Silastic 7 Silicone - [id number] Implanted:Qty : 1 on 05/28/2020 by Farhat Pate MD [place] [facility] [place]: Throat [id number] / / documented as of this [...] the patient have Health Care Power of Manager Terminal? No Code Status History Code Status Date [...] and were consensually agreed upon. Care Teams Staff Rn Relationship Specialty Start Date End Date Ivonne French PA-C [address] [facility] [place] [address] PCP - General Physician Gathering Machine Setter 07/24/21 documented as of this encounter
--- OUTSIDE RECORDS SUMMARY | 2024-01-29 21:37 | External Medical Summary ---
Author Name Unknown Address Unknown Organization K01:LABORATORY [facility] - [address] [facility] [address] [facility] [address] Laboratory Report Ordering Provider Test Date Status SONIA VILLARREAL 11/24/2023 17:45:00 Final SCREENING Observation Date Value Abnormality Reference (Units ) Status SARS Coronavirus 2 11/24/2023 17:45:00 Negative N egative Final 2018 Novel Coronavirus not d etected.

This express test was developed and its performance characteristics determined by [facility]. It has not been cleared or approved by the U.S. Food and Drug Administration (FDA). FDA does not require this test to go thru premarket FDA review. This test is used for clinical purposes. It should not be regarded as investigational or for research. This laboratory is certified under the Clinical Laboratory Improvement Amendments (CLIA) as qualified to perform high complexity clinical laboratory testing.

This test is a nucleic acid amplification test (NAAT), a reverse transcriptase polymerase chain reaction (RT-PCR) test, or a Centers for Disease Control-acceptable equivalent. The test is performed in a high complexity Clinical Laboratory Improvement Amendments-(CLIA) certified laboratory. The test is acceptable for SARS-CoV-2 diagnosis, surveillance, and travel within the [place] and to most countries. Please check with local testing authorities about requirements before travel.

The validation of bronchial specimens, tracheal aspirates, and sputum for this assay was developed and performance characteristics determined by [facility]. The validation of alternate specimen types has not been cleared or approved by the U.S. Food and Drug Administration (FDA). It has been determined that such clearance is not necessary. Performing Location LABORATORY [facility] - [facility] [address] [facility] [address]
--- OUTSIDE RECORDS SUMMARY | 2024-01-29 21:37 | External Medical Summary ---
Author Name Unknown Address Unknown Organization : Laboratory Report Ordering Provider Test Date Status ELVIA DE DIOS 11/24/2023 21:58:13 Final Observation Date Value Abnormality Reference (Units ) Status Glucose Point of Care 11/24/2023 21:58:13 244 Above high normal 70-120 (mg/dL) Final Performing Location
--- OUTSIDE RECORDS SUMMARY | 2024-01-29 21:37 | External Medical Summary ---
Author Name Unknown Address Unknown Organization K01:LABORATORY [facility] - [facility] [address] [facility] [address] Laboratory Report Ordering Provider Test Date Status SONIA VILLARREAL 11/25/2023 06:49:00 Final Observation Date Value Abnormality Reference (Units ) Status WBC, Total 11/25/2023 06:49:00 13.71 Above high normal 4.00-10.80 (K/uL) Final RBC 11/25/2023 06:49:00 4.05 3.85-5.15 (M/uL) Final Hemoglobin 11/25/2023 06:49:00 11.6 Below low normal 12.0-15.3 (g/dL) Final HCT 11/25/2023 06:49:00 35.2 Below low normal 36.0-45.2 (%) Final MCV 11/25/2023 06:49:00 86.9 81.5-97.5 (fL) Final MCH 11/25/2023 06:49:00 28.6 27.0-34.0 (pg) Final MCHC 11/25/2023 06:49:00 33.0 32.0-36.0 (g/dL) Final RDW 11/25/2023 06:49:00 19.9 11.5-15.5 (%) Final Platelets 11/25/2023 06:49:00 112 Below low normal 140-400 (K/uL) Final MPV 11/25/2023 06:49:00 8.7 6.6-11.1 (fL) Final Nucleated erythrocytes/100 leukocytes [Ratio] in Blood by Automated count 11/25/2023 06:49:00 1 Above high normal <=0 (/100 WBCs) Final Performing Location LABORATORY [facility] - [address] [place] [address]
--- OUTSIDE RECORDS SUMMARY | 2024-01-29 21:37 | External Medical Summary ---
Author Name Unknown Address Unknown Organization K01:[facility] [place] [address] [place] [address] Laboratory Report Ordering Provider Test Date Status SONIA VILLARREAL 11/26/2023 13:25:00 Final Observation Date Value Abnormality Reference (Units ) Status Uric Acid 11/26/2023 13:25:00 0.5 Below low normal 2.4 -5.7 (mg/dL) Final Performing Location [facility] [place] [address] [place] [address]
--- OUTSIDE RECORDS SUMMARY | 2024-01-29 21:37 | External Medical Summary ---
Author Name Unknown Address Unknown Organization : Laboratory Report Ordering Provider Test Date Status ELVIA DE DIOS 11/26/2023 07:01:22 Final Observation Date Value Abnormality Reference (Units ) Status Glucose Point of Care 11/26/2023 07:01:22 125 Above high normal 70-120 (mg/dL) Final Performing Location
--- OUTSIDE RECORDS SUMMARY | 2024-01-29 21:37 | External Medical Summary ---
Author Name Unknown Address Unknown Organization K01:LABORATORY [facility] - [address] [place] [address] Laboratory Report Ordering Provider Test Date Status SANJU SAHU 11/26/2023 06:59:00 Final Observation Date Value Abnormality Reference (Units ) Status Fibrinogen 11/26/2023 06:59:00 151 Below low normal 17 8-467 (mg/dL) Final Performing Location LABORATORY [facility] - [address] [place] [address]
--- OUTSIDE RECORDS SUMMARY | 2024-01-29 21:37 | External Medical Summary ---
Author Name Unknown Address Unknown Organization K01:LABORATORY [facility] [place] - [address] [place] [address] Laboratory Report Ordering Provider Test Date Status SONIA VILLARREAL 11/25/2023 21:29:00 Final Observation Date Value Abnormality Reference (Units ) Status Uric Acid 11/25/2023 21:29:00 2.7 2.4-5.7 (m g/dL) Final Performing Location LABORATORY [facility] - [address] [place] [address]
--- OUTSIDE RECORDS SUMMARY | 2024-01-29 21:37 | External Medical Summary ---
Author Name Unknown Address Unknown Organization K01:LABORATORY [facility] [place] [place] [facility] - [address] [place] [address] Laboratory Report Ordering Provider Test Date Status SONIA VILLARREAL 11/25/2023 06:49:00 Final Observation Date Value Abnormality Reference (Units ) Status ABO 11/25/2023 06:49:00 O Final RH 11/25/2023 06:49:00 Positive Final RED BLOOD CELL ANTIBODY SCREEN 11/25/2023 06:49:00 Negative Final SPECIMEN EXPIRATION DATE 11/25/2023 06:49:00 11/28/2023 23:59 Final Performing Location LABORATORY [facility] [place] [facility] - [address] [place] [address]
--- OUTSIDE RECORDS SUMMARY | 2024-01-29 21:37 | External Medical Summary | Summary of Care ---
Author Name Unknown Organization [facility] Address [address] [place] [address] Phone [phone] Care Team Providers Care Commodity Specialist Name Role Phone Ivonne French PA-C Primary Care Provider [phone] Reason for Visit * Reason Onset Date Comments Test Results Biopsy 11/22/2023 Advice 11/22/2023 Rice patient. Encounter Details Date Type Department Care Team (Late st Contact Info) Description 11/22/2023 Telephone Hematology/Oncology Treatment, [place] [address] [place] [address] Shon Rice MD [address] [place] [address] Test Results Biopsy; Advice (Dwayne patient./) Allergies Active Allergy Reactions Criticality Noted [...] 11/24/2022 Active Lactulose 10 GM/15ML Oral Solution (Constulose)Indicat ions:Constipation, unspecified constipation type Take 30 mL by mouth in the morning and 30 mL at noon and 30 mL before bedtime. 240 mL 0 05/25/2023 Active Melatonin 10 MG Oral Capsule Take 1 Capsule by mouth at bedtime. 100 Capsule 3 05/25/2023 Active metFORMIN HCl 1000 MG Oral Tablet (Glucophage)Indicat ions:Type 2 diabetes mellitus with hemoglobin A1c goal of 7.0%-8.0% ([facility]) TAKE ONE TABLET BY MOUTH TWICE A DAY WITH MORNING AND EVENING MEALS 180 Tablet 1 05/25/2023 Active SOPATecTouch Delica Lancets 33G Use to test blood sugar three times daily E 11.9 300 Each 05/25/2023 Active OneTouch Verio w/Device Kit Use up to 3 times a day E11.9 1 Kit 0 05/25/2023 Active Pen [place] 32G X 4 MM Use as directed. Use to inject insulin 4 times daily 100 Each 05/25/2023 Active Triamcinolone Acetonide 0.1 % External Ointment (Aristocort)Indicat ions:Contact dermatitis, unspecified contact dermatitis type, unspecified trigger Apply topically to affected area 2 times a day. 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 135 Tablet 1 10/14/2023 Active Omeprazole 20 MG Oral Capsule Delayed Release (PriLOSEC) Take 1 Capsule by mouth in the morning and 1 Capsule before bedtime. 180 Capsule 1 10/14/2023 Active amLODIPine Besylate 2.5 MG Oral Tablet (Norvasc)Indication s:Essential hypertension with goal blood pressure less than [...] with meals. 60 mL 3 11/19/2023 Active documented as of this encounter (statuses [...] encounter Miscellaneous Notes * Telephone Encounter - oRsette Clinton RN - 11/24/2023 10:37 AM EST Patients daughter is not listed as a contact for patient. Called patient regarding her lab results. She states that Dr Senior called her and is going to beadmitting her for chemotherapy today. She is going home to get a few things and then will be waiting to hear when she can go to [place]. Advised her that her daughter called with questions, asked if she wanted us to call Jessica back. She states that she would prefer if we did not call Jessica back at this time. * Telephone Encounter - Jeannette Oconnor OSA - 11/24/2023 9:32 AM EST Patients daughter was advised by patient of the previous message from Dr. Rice. Daughter Jessica wanting to confirm patients diagnosis as well as discuss her concerns that follow. Please advise Jessica. * Telephone Encounter - Shon Rice MD - 11/22/2023 4:17 PM EST I spoke with her on the phone, reviewed the bone marrow findings, she says that she has already received a message from [facility], she is seeing Dr. Senior tomorrow at 1:00 p.m.. * Telephone Encounter - Shon Rice MD - 11/22/2023 3:16 PM EST I called her twice on herself or, she was not available. Will try to reach her later on. When I saw her earlier and did a bone marrow, I told her that I am suspecting acute leukemia and now bone marrow confirms the same findings with acute myeloid leukemia. * Telephone Encounter - Rosette Clinton RN - 11/22/2023 2:[address] Rice: "Bone marrow examination done on 11/17/2023: - Acute myeloid leukemia. NGS checkup--> Negative for known mutations, FLT3 negative, IDH mutation negative. TP53 mutationdetected. Would like to have hematology evaluation at [facility] soon." Patient is not active on her portal. See other TE- sent to [facility] scheduling. Dr Rice: please call patient to review results of biopsy (new diagnosis) documented in this encounter Plan of Treatment Upcoming Encounters Date Type Department Care Team (Late st Contact Info) Description 12/16/2023 11:20 AM EST Office Visit [facility] [address] [place] [phone] Ivonne French PA-C [address] [place] [address] 12/16/2023 1:45 PM EST Office Visit Hematology/Oncology [facility] [address] [facility] [place] [address] Shon Rice MD [address] [place] [address] 12/23/2023 1:00 PM EST Office Visit Neurology, [place] [address] [place] [phone] Oralia Glass MD [address] [place] [address] 12/29/2023 8:10 AM EST Pharmacy Pharmacy, [facility] [address] [facility] [place] [address] [facility] [address] [facility] [place] [address] 01/07/2024 10:00 AM EST Office Visit [facility] [place] [address] [facility] [phone] Ivonne French PA-C [address] [facility] [address] 01/31/2024 9:00 AM EDT Imaging Radiology [address], [address] [place] [address] 02/10/2024 11:40 AM EDT Office Visit [facility] [place] [address] [facility] [phone] Ivonne French PA-C [address] [facility] [place] [address] 05/10/2024 8:15 AM EDT Office Visit Ophthalmology, [place] [address] [place] [address] Migel Ramires MD [address] [place] [address] Scheduled Procedures Name Priority Associated Diagnoses Date/Ti [...] encounter Medical Devices Implanted Type Area Production Grader Device Identifier Shelf Expiration Date Model / Serial / Lot Lens Intraoc 21.0 - [id number] - [id number] Implanted:Qty : 1 on 07/06/2017 by Luis Eduardo Cole MD at OR [facility] Left: Eye [employer]OMB 01/05/2022 [id number] / [id number] / Lens Intraoc 21.0 - [id number] - [id number] Implanted:Qty : 1 on 07/20/2017 by Luis Eduardo Cole MD at OR [facility] Right: Eye BAUSCH [employer] LOMB 01/05/2022 [id number] / [id number] / Syringe Prolaryn Del 1.0cc - [id number] Implanted:Qty : 1 on 11/20/2019 by Amber Jain MD [place] [facility] [place] Right: Mouth [employer] 10/21/2021 [id number] / / [id number] Implant Silastic 7 Silicone Sw - [id number] Implanted:Qty : 1 on 05/28/2020 by Farhat Pate MD [place] [facility] [place] Right: Throat Cloud[employer] [id number] / / documented as of this [...] and were consensually agreed upon. Care Teams Commodity Specialist Relationship Specialty Start Date End Date Ivonne French PA-C [address] [place] [address] PCP - General Physician Exhaust Tender 07/24/21 documented as of this encounter
--- OUTSIDE RECORDS SUMMARY | 2024-01-29 21:37 | External Medical Summary ---
Author Name Unknown Address Unknown Organization : Laboratory Report Ordering Provider Test Date Status ELVIA DE DIOS 11/25/2023 11:14:14 Final Observation Date Value Abnormality Reference (Units ) Status Glucose Point of Care 11/25/2023 11:14:14 168 Above high normal 70-120 (mg/dL) Final Performing Location
--- OUTSIDE RECORDS SUMMARY | 2024-01-29 21:37 | External Medical Summary ---
Author Name Unknown Address Unknown Organization K01:LABORATORY [facility] - [address] [facility] [address] Laboratory Report Ordering Provider Test Date Status PHOEBE VILLARREALROSA MARIA 11/25/2023 21:28:00 Final Observation Date Value Abnormality Reference (Units ) Status BUN 11/25/2023 21:28:00 28 Above high normal 6-20 (mg/dL) Final Creatinine 11/25/2023 21:28:00 1.4 Above high normal 0.5-1.0 (mg/dL) Final Glomerular filtration rate/1.73 sq M.predicted [Volume Rate/Area] in Serum, Plasma or Blood by Creatinine-based formula (CKD-EPI) 11/25/2023 21:28:00 45 Below low normal >=60 (mL/min) Final eGFR is calculated based on the CKD-EPI 2020 equation SODIUM 11/25/2023 21:28:00 136 135-146 (m mol/L) Final Potassium 11/25/2023 21:28:00 4.6 3.5-5.1 (m mol/L) Final Cl 11/25/2023 21:28:00 103 98-107 (mm ol/L) Final CO2 11/25/2023 21:28:00 21 Below low normal 22- 32 (mmol/L) Final Anion gap 11/25/2023 21:28:00 12 7-15 (mmol /L) Final Glucose 11/25/2023 21:28:00 131 Above high normal 70 -120 (mg/dL) Final Albumin 11/25/2023 21:28:00 4.5 3.8-5.0 (g /dL) Final AST (Aspartate aminotransferase) 11/25/2023 21:28:00 28 10-35 (U/L) Fin al Result may be falsely elevat ed due to hemolysis. Alk Phos 11/25/2023 21:28:00 60 35-130 (U/ L) Final Bilirubin, Total 11/25/2023 21:28:00 0.4 <=1 .2 (mg/dL) Final Calcium 11/25/2023 21:28:00 9.6 8.4-10.2 ( mg/dL) Final Protein 11/25/2023 21:28:00 7.3 6.0-8.3 (g /dL) Final ALT (Alanine aminotransferase) 11/25/2023 21:28:00 16 10-35 (U/L) Final Performing Location LABORATORY [facility] - [address] [facility] [address]
--- OUTSIDE RECORDS SUMMARY | 2024-01-29 21:37 | External Medical Summary | Summary of Care ---
Author Name Unknown Organization [facility] Address [address] [place] [address] Phone [phone] Care Team Providers Care Fastener Sewing Machine Operator Name Role Phone Ivonne French PA-C Primary Care Provider [phone] Reason for Visit * Reason Onset Date Comments Test Results Biopsy 11/22/2023 Advice 11/22/2023 Rice patient. Encounter Details Date Type Department Care Team (Late st Contact Info) Description 11/22/2023 Telephone Hematology/Oncology Treatment, [place] [address] [place] [address] Shon Rice MD [address] [place] [address] Test Results Biopsy; Advice (Dwayne patient./) Allergies [...] 180 Capsule 0 3 Suspended Additional Information Lactulose 10 GM/15ML Oral Solution (Constulose)Indic ations:Constipati on, unspecified constipation type Take 30 mL by mouth in the morning and 30 mL at noon and 30 mL before bedtime. 240 mL 0 3 Suspended Additional Information Melatonin 10 MG Oral Capsule Take 1 Capsule by mouth at bedtime. 100 Capsule 3 3 Suspended Additional Information metFORMIN HCl 1000 MG Oral Tablet (Glucophage)Indic ations:Type 2 diabetes mellitus with hemoglobin A1c goal of 7.0%-8.0% (HCC) TAKE ONE TABLET BY MOUTH TWICE A DAY WITH MORNING AND EVENING MEALS 180 Tablet 1 3 Suspended Additional Information Trendslide Delica Lancets 33G Use to test blood sugar three times daily E 11.9 300 Each 3 Suspended Additional Information Traddr.comTouch Verio w/Device Kit Use up to 3 times a day E11.9 1 Kit 0 3 Suspended Additional Information Pen [place] 32G X 4 MM Use as directed. Use to inject insulin 4 times daily 100 Each 5 3 Suspended Additional Information Triamcinolone Acetonide 0.1 % External Ointment (Aristocort)Indic ations:Contact dermatitis, unspecified contact dermatitis type, unspecified trigger Apply topically to affected area 2 times a day. Apply to hands and feet 80 g 2 3 Suspended Additional Information Furosemide 20 MG Oral Tablet (Lasix)Indication s:Edema, unspecified type Take 1 Tablet by mouth once a day on Wednesday, Wednesday, and Wednesday only. 90 Tablet 3 3 11/24/19 24 Discontinued( End of Procedure) Levothyroxine Sodium 150 MCG Oral Tablet (Synthroid) One tab daily Wednesday through Wednesday - half tab daily Wednesday and wednesday 90 Tablet 1 3 Suspended Additional Information Isosorbide Mononitrate ER 30 [...] 1 3 09/08/20 24 Suspended Additional Information Linzess 72 MCG Oral Capsule (linaCLOtide)Lety cations:Drug-marian isael constipation Take 1 Capsule by mouth daily before breakfast. 90 Capsule 1 3 Suspended Additional Information Metoprolol Succinate ER 25 MG Oral Tablet Extended Release 24 Hour (toPROL XL)Indications:Co ronary artery disease involving red cliff coronary artery of red cliff heart without angina pectoris Take 1.5 Tablets by mouth in the morning. 135 Tablet 1 3 Suspended Additional Information Omeprazole 20 MG Oral Capsule Delayed Release (PriLOSEC) Take 1 Capsule by mouth in the morning and 1 Capsule before bedtime. 180 Capsule 1 3 Suspended Additional Information amLODIPine Besylate 2.5 MG Oral Tablet (Norvasc)Indicati ons:Essential hypertension with goal blood pressure less than 130/80 Take 1 Tablet by mouth in the morning. 90 Tablet 3 3 Suspended Additional Information Rosuvastatin Calcium 20 MG Oral Tablet (Crestor) Take 1 Tablet by mouth daily. 90 Tablet 3 4 Suspended Additional Information OneTouch Verio In Vitro Strip (Glucose Blood) Use up to 3 times a day E11.9 400 Strip 3 4 Suspended Additional Information Insulin Glargine Solostar 100 UNIT/ML Subcutaneous Solution Pen-injector (Lantus SoloStar) Inject 45 Units under the skin at bedtime. 45 mL 3 4 Suspended Additional Information Patient taking differently:45 Units Subcutaneous HS,Taking 35 units qhs, Reported on 11/24/2023 Insulin Lispro (1 Unit Dial) 100 UNIT/ML Subcutaneous Solution Pen-injector (HumaLOG KwikPen) Inject 24 Units under the skin in the morning and 24 Units at noon and 24 Units in the evening. Inject with meals. 60 mL 3 4 Suspended Additional Information Patient taking differently:24 Units Subcutaneous WITH MEALS,Taking 20 units with meals, Reported on 11/24/2023 documented as of this encounter (statuses as of 11/25/2023) Active Problems Problem Noted Date Diagnosed Date Acute myeloid leukemia not having achieved remis nya 11/24/2023 DM type 2 causing neurological disease 4 ASCVD (arteriosclerotic cardiovascular disease) 11/24/2023 Neutropenia 11/24/2023 [...] encounter Miscellaneous Notes * Telephone Encounter - Albania Gamble OSA - 11/25/2023 9:02 AM EST Jessica called back in regards to above - I let her know she is not listed on Juany's contact list so we cannot speak with her at this time - Jessica verbalized understanding * Telephone Encounter - Rosette Clinton RN - 11/24/2023 10:37 AM EST Patients daughter is not listed as a contact for patient. Called patient regarding her lab results. She states that Dr Senior called her and is going to beadmitting her for chemotherapy today. She is going home to get a few things and then will be waiting to hear when she can go to [place]. Advised her that her daughter called with [...] she has already received a message from [facility], she is seeing Dr. Senior tomorrow [...] Would like to have hematology evaluation at [facility] soon." Patient is not active on her portal. See other TE- sent to [facility] scheduling. Dr Rice: please call patient to review results of biopsy (new diagnosis) documented in this encounter Plan of Treatment Upcoming Encounters Date Type Department Care Team (Late st Contact Info) Description 12/16/2023 11:20 AM EST [facility] [address] [facility] [phone] Ivonne French PA-C [address] [facility] [phone] 12/16/2023 1:45 PM EST Office Visit Hematology/Oncology [facility] [address] [facility] [place] [address] Shon Rice MD [address] [place] [address] 12/23/2023 1:00 PM EST Office Visit Neurology, [place] [address] [place] [phone] Oralia Glass MD [address] [place] [address] 12/29/2023 8:10 AM EST Pharmacy Pharmacy, [facility] [address] [facility] [place] [address] [facility] [address] [facility] [place] [address] 01/07/2024 10:00 AM EST Office Visit [facility] [place] [address] [phone] Ivonne French PA-C [address] [place] [address] 01/31/2024 9:00 AM EDT Imaging Radiology [facility] [facility] [address] [facility] [place] [address] 02/10/2024 11:40 AM EDT Office Visit [facility] [place] [address] [facility] [phone] Ivonne French PA-C [address] [place] [address] 05/10/2024 8:15 AM EDT Office Visit Ophthalmology, [place] [address] [facility] [place] [address] Migel Ramires MD [address] [facility] [place] [address] Scheduled Procedures Name Priority Associated Diagnoses Date/Ti [...] this encounter Medical Devices Implanted Type Area Concessions Manager Device Identifier Shelf Expiration Date Model / Serial / Lot Lens Intraoc 21.0 - [id number] - [id number] Implanted:Qty : 1 on 07/06/2017 by Luis Eduardo Cole MD at OR [facility] [address] Left: Eye [employer] 01/05/2022 [id number] / [id number] / Lens Intraoc 21.0 - [id number] - [id number] Implanted:Qty : 1 on 07/20/2017 by Luis Eduardo Cole MD at OR [facility] [address] Right: Eye [employer] 01/05/2022 [id number] / [id number] / Syringe Prolaryn Del 1.0cc - [id number] Implanted:Qty : 1 on 11/20/2019 by Amber Jain MD at [facility] Right: Mouth [employer] 10/21/2021 [id number] / / [id number] Implant Silastic 7 Silicone Sw - [id number] Implanted:Qty : 1 on 05/28/2020 by Farhat Pate MD at OR [facility] Right: Throat [employer] [id number] / / documented as of this [...] the patient have Health Care Power of Crop Duster? No Code Status History Code Status Date [...] and were consensually agreed upon. Care Teams Fastener Sewing Machine Operator Relationship Specialty Start Date End Date Ivonne French PA-C [address] [place] [address] PCP - General Physician Electronic Field Service Engineer 07/24/21 documented as of this encounter
--- OUTSIDE RECORDS SUMMARY | 2024-01-29 21:37 | External Medical Summary ---
Author Name Unknown Address Unknown Organization [id number]:LABORATORY [facility] - [address] [facility] [place] [address] Laboratory Report Ordering Provider Test Date Status SANJU SAHU 11/25/2023 06:49:00 Final Observation Date Value Abnormality Reference (Units ) Status BUN 11/25/2023 06:49:00 27 Above high normal 6-20 (mg/dL) Final Creatinine 11/25/2023 06:49:00 1.0 0.5-1.0 (mg/dL) Final Glomerular filtration rate/1.73 sq M.predicted [Volume Rate/Area] in Serum, Plasma or Blood by Creatinine-based formula (CKD-EPI) 11/25/2023 06:49:00 62 >=60 (mL/min) Final eGFR is calculated based on the CKD-EPI 2020 equation SODIUM 11/25/2023 06:49:00 137 135-146 (m mol/L) Final Potassium 11/25/2023 06:49:00 4.5 3.5-5.1 (m mol/L) Final Cl 11/25/2023 06:49:00 101 98-107 (mm ol/L) Final CO2 11/25/2023 06:49:00 24 22-32 (mmo l/L) Final Anion gap 11/25/2023 06:49:00 12 7-15 (mmol /L) Final Glucose 11/25/2023 06:49:00 229 Above high normal 70 -120 (mg/dL) Final Albumin 11/25/2023 06:49:00 4.7 3.8-5.0 (g /dL) Final AST (Aspartate aminotransferase) 11/25/2023 06:49:00 24 10-35 (U/L) Fin al Alk Phos 11/25/2023 06:49:00 64 35-130 (U/ L) Final Bilirubin, Total 11/25/2023 06:49:00 0.3 <=1 .2 (mg/dL) Final Calcium 11/25/2023 06:49:00 9.2 8.4-10.2 ( mg/dL) Final Protein 11/25/2023 06:49:00 7.3 6.0-8.3 (g /dL) Final ALT (Alanine aminotransferase) 11/25/2023 06:49:00 14 10-35 (U/L) Colin lee Performing Location LABORATORY [facility] - [facility] [address] [facility] [address]
--- OUTSIDE RECORDS SUMMARY | 2024-01-29 21:37 | External Medical Summary ---
Author Name Unknown Address Unknown Organization K01:[facility]ORY [facility] - [address] [place] [address] Laboratory Report Ordering Provider Test Date Status SANJU SAHU 11/25/2023 06:49:00 Final Observation Date Value Abnormality Reference (Units ) Status Phosphate 11/25/2023 06:49:00 5.1 Above high normal 2. 5-4.8 (mg/dL) Final Performing Location [facility] - [address] [place] [address]
--- OUTSIDE RECORDS SUMMARY | 2024-01-29 21:37 | External Medical Summary ---
Author Name Unknown Address Unknown Organization K01:[facility] - [address] [facility] [address] Laboratory Report Ordering Provider Test Date Status SONIA VILLARREAL 11/26/2023 06:59:00 Final Observation Date Value Abnormality Reference (Units ) Status SYNC LEUKOCYTES IN BLOOD BY AUTOMATED COUNT 11/26/2023 06:59:00 13.39 Above high normal 4.00-10.80 (K/uL) Final Neutrophils/100 leukocytes in Blood by Manual count 11/26/2023 06:59:00 4.0 Below low normal 40.0-75.0 (%) Final Lymphocytes/100 leukocytes in Blood by Manual count 11/26/2023 06:59:00 79.0 Above high normal 18.0-42.0 (%) Final Monocytes/100 leukocytes in Blood by Manual count 11/26/2023 06:59:00 2.0 1.0-11.0 (%) Final Eosinophils/100 leukocytes in Blood by Manual count 11/26/2023 06:59:00 2.0 0.0-6.0 (%) Final Blasts/100 leukocytes in Blood by Manual count 11/26/2023 06:59:00 13.0 Above high normal <=0.0 (%) Final Neutrophils [#/volume] in Blood by Manual count 11/26/2023 06:59:00 0.54 Below low normal 1.80-7.70 (K/uL) Final Lymphocytes [#/volume] in Blood by Manual count 11/26/2023 06:59:00 10.58 Above high normal 1.00-4.80 (K/uL) Final Monocytes [#/volume] in Blood by Manual count 11/26/2023 06:59:00 0.27 0.00-1.10 (K/uL) Final Eosinophils [#/volume] in Blood by Manual count 11/26/2023 06:59:00 0.27 0.00-0.70 (K/uL) Final Blasts [#/volume] in Blood by Manual count 11/26/2023 06:59:00 1.74 Above high normal <=0.00 (K/uL) Final Variant lymphocytes [Presence] in Blood by Light microscopy 11/26/2023 06:59:00 Present Abnormal None Seen Final Performing Location [facility] [place] [address] [facility] [address]
--- OUTSIDE RECORDS SUMMARY | 2024-01-29 21:37 | External Medical Summary ---
Author Name Unknown Address Unknown Organization K01:LABORATORY [facility] [place] - [address] [place] [address] Laboratory Report Ordering Provider Test Date Status SANJU SAHU 11/25/2023 06:49:00 Final Observation Date Value Abnormality Reference (Units ) Status Uric Acid 11/25/2023 06:49:00 6.7 Above high normal 2. 4-5.7 (mg/dL) Final Performing Location LABORATORY [facility] [place] - [address] [place] [address]
--- OUTSIDE RECORDS SUMMARY | 2024-01-29 21:37 | External Medical Summary ---
Author Name Unknown Address Unknown Organization K01:[facility] - [address] [place] [address] Laboratory Report Ordering Provider Test Date Status SONIA VILLARREAL 11/25/2023 21:28:00 Final Observation Date Value Abnormality Reference (Units ) Status Phosphate 11/25/2023 21:28:00 5.0 Above high normal 2. 5-4.8 (mg/dL) Final Performing Location [facility] - [address] [place] [address]
--- OUTSIDE RECORDS SUMMARY | 2024-01-29 21:37 | External Medical Summary ---
Author Name Unknown Address Unknown Organization K01:[facility] - [address] [place] [address] Laboratory Report Ordering Provider Test Date Status SONIA VILLARREAL 11/26/2023 07:00:00 Final Observation Date Value Abnormality Reference (Units ) Status Phosphate 11/26/2023 07:00:00 4.4 2.5-4.8 (m g/dL) Final Performing Location [facility] - [address] [place] [address]
--- OUTSIDE RECORDS SUMMARY | 2024-01-29 21:37 | External Medical Summary ---
Author Name Unknown Address Unknown Organization K01:[facility] - [address] [place] [address] Laboratory Report Ordering Provider Test Date Status RAMIN HACKETT 11/25/2023 06:49:00 Final Observation Date Value Abnormality Reference (Units ) Status LDH 11/25/2023 06:49:00 473 Above high normal <= 250 (U/L) Final Performing Location [facility] - [address] [place] [address]
--- OUTSIDE RECORDS SUMMARY | 2024-01-29 21:37 | External Medical Summary ---
Author Name Unknown Address Unknown Organization K01:[facility] - [address] [place] [address] Laboratory Report Ordering Provider Test Date Status SANJU SAHU 11/25/2023 06:49:00 Final Observation Date Value Abnormality Reference (Units ) Status Fibrinogen 11/25/2023 06:49:00 161 Below low normal 17 8-467 (mg/dL) Final Performing Location [facility] - [address] [place] [address]
--- OUTSIDE RECORDS SUMMARY | 2024-01-29 21:37 | External Medical Summary ---
Author Name Unknown Address Unknown Organization K01:LABORATORY [facility] - [address] [place] [address] Laboratory Report Ordering Provider Test Date Status SONIA VILLARREAL 11/25/2023 06:49:00 Final Observation Date Value Abnormality Reference (Units ) Status ABO 11/25/2023 06:49:00 O Final RH 11/25/2023 06:49:00 Positive Final Performing Location LABORATORY [facility] - [address] [place] [address]
--- OUTSIDE RECORDS SUMMARY | 2024-01-29 21:37 | External Medical Summary ---
Author Name Unknown Address Unknown Organization K01:LABORATORY [facility] - [address] [facility] [address] Laboratory Report Ordering Provider Test Date Status SONIA VILLARREAL 11/25/2023 06:49:00 Final Observation Date Value Abnormality Reference (Units ) Status SYNC LEUKOCYTES IN BLOOD BY AUTOMATED COUNT 11/25/2023 06:49:00 13.71 Above high normal 4.00-10.80 (K/uL) Final Neutrophils/100 leukocytes in Blood by Manual count 11/25/2023 06:49:00 5.0 Below low normal 40.0-75.0 (%) Final Lymphocytes/100 leukocytes in Blood by Manual count 11/25/2023 06:49:00 91.0 Above high normal 18.0-42.0 (%) Final Monocytes/100 leukocytes in Blood by Manual count 11/25/2023 06:49:00 3.0 1.0-11.0 (%) Final Eosinophils/100 leukocytes in Blood by Manual count 11/25/2023 06:49:00 1.0 0.0-6.0 (%) Final Neutrophils [#/volume] in Blood by Manual count 11/25/2023 06:49:00 0.69 Below low normal 1.80-7.70 (K/uL) Final Lymphocytes [#/volume] in Blood by Manual count 11/25/2023 06:49:00 12.48 Above high normal 1.00-4.80 (K/uL) Final Monocytes [#/volume] in Blood by Manual count 11/25/2023 06:49:00 0.41 0.00-1.10 (K/uL) Final Eosinophils [#/volume] in Blood by Manual count 11/25/2023 06:49:00 0.14 0.00-0.70 (K/uL) Final Variant lymphocytes [Presence] in Blood by Light microscopy 11/25/2023 06:49:00 Present Abnormal None Seen Final Performing Location [facility] - [address] [facility] [address]
--- OUTSIDE RECORDS SUMMARY | 2024-01-29 21:37 | External Medical Summary ---
Author Name Unknown Address Unknown Organization K01:LABORATORY [facility] [place] - [address] [place] [address] Laboratory Report Ordering Provider Test Date Status SONIA VILLARREAL 11/26/2023 06:59:00 Final Observation Date Value Abnormality Reference (Units ) Status WBC, Total 11/26/2023 06:59:00 13.39 Above high normal 4.00-10.80 (K/uL) Final RBC 11/26/2023 06:59:00 3.96 3.85-5.15 (M/uL) Final Hemoglobin 11/26/2023 06:59:00 11.1 Below low normal 12.0-15.3 (g/dL) Final HCT 11/26/2023 06:59:00 35.0 Below low normal 36.0-45.2 (%) Final MCV 11/26/2023 06:59:00 88.4 81.5-97.5 (fL) Final MCH 11/26/2023 06:59:00 28.0 27.0-34.0 (pg) Final MCHC 11/26/2023 06:59:00 31.7 32.0-36.0 (g/dL) Final RDW 11/26/2023 06:59:00 19.7 11.5-15.5 (%) Final Platelets 11/26/2023 06:59:00 100 Below low normal 140-400 (K/uL) Final MPV 11/26/2023 06:59:00 8.8 6.6-11.1 (fL) Final Nucleated erythrocytes/100 leukocytes [Ratio] in Blood by Automated count 11/26/2023 06:59:00 1 Above high normal <=0 (/100 WBCs) Final Performing Location LABORATORY [facility] [place] - [address] [place] [address]
--- OUTSIDE RECORDS SUMMARY | 2024-01-29 21:37 | External Medical Summary ---
Author Name Unknown Address Unknown Organization : Laboratory Report Ordering Provider Test Date Status SONIA VILLARREAL 11/26/2023 06:58:00 Final Observation Date Value Abnormality Reference (Units ) Status REFERENCE LAB SCANNED REPORT 11/26/2023 06:58:00 RESULT SCAN Final Performing Location
--- OUTSIDE RECORDS SUMMARY | 2024-01-29 21:37 | External Medical Summary ---
Author Name Unknown Address Unknown Organization : Laboratory Report Ordering Provider Test Date Status ELVIA DE DIOS 11/25/2023 16:58:24 Final Observation Date Value Abnormality Reference (Units ) Status Glucose Point of Care 11/25/2023 16:58:24 78 70-120 (mg/dL) Final Performing Location
--- OUTSIDE RECORDS SUMMARY | 2024-01-29 21:37 | External Medical Summary ---
Author Name Unknown Address Unknown Organization K01:[facility] - [address] [place] [address] Laboratory Report Ordering Provider Test Date Status SONIA VILLARREAL 11/26/2023 13:25:00 Final Observation Date Value Abnormality Reference (Units ) Status Phosphate 11/26/2023 13:25:00 4.6 2.5-4.8 (m g/dL) Final Performing Location [facility] - [address] [place] [address]
--- OUTSIDE RECORDS SUMMARY | 2024-01-29 21:37 | External Medical Summary ---
Author Name Unknown Address Unknown Organization : Laboratory Report Ordering Provider Test Date Status ELVIA DE DIOS 11/25/2023 21:17:39 Final Observation Date Value Abnormality Reference (Units ) Status Glucose Point of Care 11/25/2023 21:17:39 137 Above high normal 70-120 (mg/dL) Final Performing Location
--- OUTSIDE RECORDS SUMMARY | 2024-01-29 21:38 | External Medical Summary | Summary of Care ---
Author Name Unknown Organization [facility] Address [address] [facility] [place] [address] Phone [phone] Care Team Providers Care Design Engineer Marine Equipment Name Role Phone Ivonne French PA-C Primary Care Provider [phone] Reason for Visit * Reason Onset Date Comments Appointment 11/22/2023 Encounter Details Date Type Department Care Team (Late st Contact Info) Description 11/22/2023 Telephone Hematology/Oncology Camryn Carrizales [place] [address] [facility] [place] [address] Shon Rice MD [facility] [address] Appointment Allergies Active Allergy Reactions Criticality Noted Date Comments Adhesive Tape 04/21/2016 Glue off the old style medical tape. documented as of this encounter (statuses as of 11/22/2023) Medications Medication Sig Dispensed Refills Start Date [...] before bedtime. 240 mL 0 05/25/2023 Active Additional Information Patient not taking.Reported on 11/12/2023 Melatonin 10 MG Oral Capsule Take 1 Capsule by mouth at bedtime. 100 Capsule 3 05/25/2023 Active metFORMIN HCl 1000 MG Oral Tablet (Glucophage)Indica tions:Type 2 diabetes mellitus with hemoglobin A1c goal of 7.0%-8.0% ([facility]) TAKE ONE TABLET BY MOUTH TWICE A DAY WITH MORNING AND EVENING MEALS 180 Tablet 1 05/25/2023 Active Nuro PharmaTouch Delica Lancets 33G Use to test blood sugar three times daily E 11.9 300 Each 05/25/2023 Active Nuro PharmaTouch Verio w/Device Kit Use up to 3 times a day E11.9 1 Kit 0 05/25/2023 Active Pen [place] 32G X 4 MM Use as directed. [...] Wednesday only. 90 Tablet 3 06/14/2023 Active Additional Information Patient not taking.Reported on 11/12/2023 Levothyroxine Sodium 150 MCG Oral Tablet (Synthroid) [...] 09/08/2024 Active Linzess 72 MCG Oral Capsule (linaCLOtide)Indic ations:Drug-induce d constipation Take 1 Capsule by mouth daily before breakfast. 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 Take 1.5 Tablets [...] as of this encounter (statuses as of 11/22/2023) Active Problems Problem Noted Date Diagnosed Date Osteomyelitis of great toe of left foot [...] as of this encounter (statuses as of 11/22/2023) Resolved Problems Problem Noted Date Diagnosed Date [...] as of this encounter (statuses as of 11/22/2023) Immunizations Name Administration Dates Next Due COVID-19 [...] encounter Miscellaneous Notes * Telephone Encounter - Daphne DennisGILBERT - 11/22/2023 11:06 AM EST Sent to incorrect pool-sent to [facility] not [facility] Please send to correct pool * Telephone Encounter - Arita Amara LGILBERT - 11/22/2023 10:30 AM EST [facility] HEM/ONC-please contact patient for an appt in regards to Would like to have hematology evaluation at [facility] soon. Thank you documented in this encounter Plan of Treatment Upcoming Encounters Date Type Department Care Team (Late st Contact Info) Description 12/16/2023 11:20 AM EST Office Visit [facility] [address] [place] [phone] Ivonne French PA-C [address] [place] [address] 12/16/2023 1:45 PM EST Office Visit Hematology/Oncology [facility] 200 [place] [address] Shon Rice MD 200 [facility] [place] [address] 12/23/2023 1:00 PM EST Office Visit Neurology, [place] [address] [place] [phone] Oralia Glass MD [address] [place], [place] [phone] 12/29/2023 8:10 AM EST Pharmacy Pharmacy, [facility] 132 [facility] [place] [address] [facility] 132 [facility] [place] [address] 01/07/2024 10:00 AM EST Office Visit [facility] [place] [address] [facility] [phone] Ivonne French PA-C [address] [facility] [address] 01/31/2024 9:00 AM EDT Imaging Radiology [facility] 1st [facility], [place] [address] [facility] [place] [address] 02/10/2024 11:40 AM EDT Office Visit [facility] [place] [address] [facility] [phone] Ivonne French PA-C [address] [facility] [address] 05/10/2024 8:15 AM EDT Office Visit OphthalmologyFrancisco J 21 [place] [address] Migel Ramires MD [address] [place] [address] Scheduled Procedures Name Priority Associated Diagnoses Date/Ti me COLONOSCOPY FLEXIBLE PROXIMAL DIAGNOSTIC Recall History of colon polyps Health Maintenance Due Date Last Done Comments Pneumococcal Vaccine: Pediatrics (0 to 5 Years) and At-Risk Patients (6 to 64 Years) (2 - PCV) 12/20/2007 12/20/2006 Hepatitis B (3 of 3 - Risk 3-dose series) 08/20/2017 06/25/2017, 03/28/2015 Depression, Most Recent Score >= 10 (will fire each visit until score < 10) 12/26/2022 12/25/2022 COVID-19 Vaccine (3 - 2022- season) 2023 08/19/2021, 07/22/2021 Influenza Vaccine (FLU shot) (#1) [...] 024, 12/25/2022, 09/16/2022, Additional history exists GFR 11/17/2024 11/17/2023, 12/2023, 06/15/2023, Additional history exists PAP SMEAR-EVERY 3 YRS,AGES [...] this encounter Medical Devices Implanted Type Area Insurance Investigator Device Identifier Shelf Expiration Date Model / Serial / Lot Lens Intraoc 21.0 - [id number] - [id number] Implanted:Qty : 1 on 07/06/2017 by Luis Eduardo Cole MD at OR [facility] Left: Eye BAUSCH & LOMB 01/05/2022 [id number] / [id number] / Lens Intraoc 21.0 - [id number] - [id number] Implanted:Qty : 1 on 07/20/2017 by Luis Eduardo Cole MD at OR [facility] Right: Eye BAUSCH & LOMB 01/05/2022 [id number] / [id number] / Syringe Prolaryn Del 1.0cc - [id number] Implanted:Qty : 1 on 11/20/2019 by Amber Jain MD at [facility] Right: Mouth [employer] 10/21/2021 [id number] / / [id number] Implant Silastic 7 Silicone Sw - [id number] Implanted:Qty : 1 on 05/28/2020 by Farhat Pate MD at OR [facility] Right: Throat CID[employer] 4707 / / documented as of this [...] and were consensually agreed upon. Care Teams Design Engineer Marine Equipment Relationship Specialty Start Date End Date Ivonne French PA-C [address] [facility] [place] [address] PCP - General Physician Director Digital Advertising 07/24/21 documented as of this encounter
--- OUTSIDE RECORDS SUMMARY | 2024-01-29 21:38 | External Medical Summary | Summary of Care ---
Author Name Unknown Organization [facility] Address [address] [facility] [place] [address] Phone [phone] Care Team Providers Care Mirror Machine Feeder Name Role Phone Ivonne French PA-C Primary Care Provider [phone] Reason for Visit * Reason Onset Date Comments Appointment 11/22/2023 Encounter Details Date Type Department Care Team (Late st Contact Info) Description 11/22/2023 Telephone Hematology/Oncology Camryn Carrizales [place] 200 [facility] [place] [address] Shon Rice MD 200 [facility] [address] Appointment Allergies Active Allergy Reactions Criticality Noted [...] mellitus with hemoglobin A1c goal of 7.0%-8.0% ([facility]) TAKE ONE TABLET BY MOUTH TWICE A DAY WITH MORNING AND EVENING MEALS 180 Tablet 1 05/25/2023 Active Spring Mobile SolutionsTouch Delica Lancets 33G Use to test blood sugar three times daily E 11.9 300 Each 05/25/2023 Active Spring Mobile SolutionsTouch Verio w/Device Kit Use up to 3 times a day E11.9 1 Kit 0 05/25/2023 Active Pen [place] 32G X 4 MM Use as directed. [...] Hour (toPROL XL)Indications:Cor onary artery disease involving wiyot coronary artery of wiyot heart without angina pectoris Take 1.5 Tablets [...] AM EST Sent to incorrect pool-sent to [facility] not [facility] Please send to correct pool * Telephone Encounter - Arita Amara LGILBERT - 11/22/2023 10:30 AM EST [facility] HEM/ONC-please contact patient for an appt in regards to Would like to have hematology evaluation at [facility] soon. Thank you documented in this encounter Plan of Treatment Upcoming Encounters Date Type Department Care Team (Late st Contact Info) Description 12/16/2023 11:20 AM EST Office Visit [facility] [address] [place] [phone] Ivonne French PA-C [address] [place] [address] 12/16/2023 1:45 PM EST Office Visit Hematology/Oncology [facility] 200 [facility] [place] [address] Shon Rice MD 200 [place] [address] 12/23/2023 1:00 PM EST Office Visit Neurology, [place] [address] [place] [phone] Oralia Glass MD [address] [place], [place] [phone] 12/29/2023 8:10 AM EST Pharmacy Pharmacy, [facility] 132 [facility] [place] [address] [facility] 132 [facility] [place] [address] 01/07/2024 10:00 AM EST Office Visit [facility] [place] [address] [facility] [phone] Ivonne French PA-C [address] [facility] [address] 01/31/2024 9:00 AM EDT Imaging Radiology [facility]st [facility], [place] [address] [facility] [place] [address] 02/10/2024 11:40 AM EDT Office Visit [facility] [place] [address] [facility] [phone] Ivonne French PA-C [address] [facility] [address] 05/10/2024 8:15 AM EDT Office Visit OphthalmologyFrancisco J 21 [place] [address] Migel Ramires MD [address] [place] [address] Scheduled Procedures Name Priority Associated Diagnoses Date/Ti [...] this encounter Medical Devices Implanted Type Area Foaming Machine Operator Device Identifier Shelf Expiration Date Model / Serial / Lot Lens Intraoc 21.0 - [id number] - [id number] Implanted:Qty : 1 on 07/06/2017 by Luis Eduardo Cole MD at OR [facility] Left: Eye BAUSCH & LOMB 01/05/2022 [id number] / [id number] / Lens Intraoc 21.0 - [id number] - [id number] Implanted:Qty : 1 on 07/20/2017 by Luis Eduardo Cole MD at OR [facility] Right: Eye BAUSCH & LOMB 01/05/2022 [id number] / [id number] / Syringe Prolaryn Del 1.0cc - [id number] Implanted:Qty : 1 on 11/20/2019 by Amber Jain MD at OR [facility] Right: Mouth [employer] 10/21/2021 [id number] / / [id number] Implant Silastic 7 Silicone Sw - [id number] Implanted:Qty : 1 on 05/28/2020 by Farhat Pate MD at OR [facility] Right: Throat [employer]Me! 4707 / / documented as of this [...] and were consensually agreed upon. Care Teams Mirror Machine Feeder Relationship Specialty Start Date End Date Ivonne French PA-C [address] [facility] [place] [address] PCP - General Physician Beater Room Helper 07/24/21 documented as of this encounter
--- OUTSIDE RECORDS SUMMARY | 2024-01-29 21:38 | External Medical Summary | Summary of Care ---
Author Name Unknown Organization [facility] Address [address] [place] [place] [place] [address] Phone [phone] Care Team Providers Care Ctc Operator Name Role Phone Ivonne French PA-C Primary Care Provider [phone] Reason for Visit * Reason Onset Date Comments Test Results Biopsy 11/22/2023 Advice 11/22/2023 Rice patient. Encounter Details Date Type Department Care Team (Late st Contact Info) Description 11/22/2023 Telephone Hematology/Oncology Treatment, [place] [address] [place] [address] Shon Rice MD [address] [place] [address] Test Results Biopsy; Advice (Dwayne patient./) Allergies [...] EVENING MEALS 180 Tablet 1 05/25/2023 Active Sammy's great American barTouch Delica Lancets 33G Use to test blood sugar three times daily E 11.9 300 Each 05/25/2023 Active OneTouch Verio w/Device Kit Use up to 3 times a day E11.9 1 Kit 0 05/25/2023 Active Pen [place] 32G X 4 MM Use as directed. 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 Senior tomorrow [...] Would like to have hematology evaluation at [facility] soon." Patient is not active on her portal. See other TE- sent to [facility] scheduling. Dr Rice: please call patient to review results of biopsy (new diagnosis) documented in this encounter Plan of Treatment Upcoming Encounters Date Type Department Care Team (Late st Contact Info) Description 12/16/2023 11:20 AM EST Office Visit Family Practice, [place] [address] [facility] [phone] Ivonne French PA-C [address] [facility] [address] 12/16/2023 1:45 PM EST Office Visit Hematology/Oncology [facility] 200 [facility] [place] [address] Shon Rice MD 200 [facility] [place] [address] 12/23/2023 1:00 PM EST Office Visit Neurology, [place] [address] [place] [phone] Oralia Glass MD [address] [place], [place] [address] 12/29/2023 8:10 AM EST Pharmacy Pharmacy, [facility] 132 [facility] [place] [address] [facility] 132 [facility] [place] [address] 01/07/2024 10:00 AM EST Office Visit [facility] [place] [address] [facility] [phone] Ivonne French PA-C [address] [facility] [address] 01/31/2024 9:00 AM EDT Imaging Radiology [address] 132 [facility] [place] [address] 02/10/2024 11:40 AM EDT Office Visit [facility], [place] [address] [facility] [phone] Ivonne French PA-C [address] [place] [address] 05/10/2024 8:15 AM EDT Office Visit Ophthalmology, [place] [address] [place] [address] Migel Ramires MD [address] [place] [address] Scheduled Procedures Name Priority Associated Diagnoses Date/Ti [...] this encounter Medical Devices Implanted Type Area Cotton Buyer Device Identifier Shelf Expiration Date Model / Serial / Lot Lens Intraoc 21.0 - [id number] - [id number] Implanted:Qty : 1 on 07/06/2017 by Luis Eduardo Cole MD at OR [facility] Left: Eye BAUSCH & LOMB 01/05/2022 [id number] / [id number] / Lens Intraoc 21.0 - [id number] - [id number] Implanted:Qty : 1 on 07/20/2017 by Luis Eduardo Cole MD at OR [facility] Right: Eye BAUSCH & LOMB 01/05/2022 [id number] / [id number] / Syringe Prolaryn Del 1.0cc - [id number] Implanted:Qty : 1 on 11/20/2019 by Amber Jain MD at [place] [facility] Right: Mouth [employer] 10/21/2021 [id number] / / [id number] Implant Silastic 7 Silicone Sw - [id number] Implanted:Qty : 1 on 05/28/2020 by Farhat Pate MD at OR [facility] Right: Throat [employer] 4707 / / documented as of this [...] and were consensually agreed upon. Care Teams Ctc Operator Relationship Specialty Start Date End Date Ivonne French PA-C [address] [facility] [place] [address] PCP - General Physician Lead Painter 07/24/21 documented as of this encounter
--- OUTSIDE RECORDS SUMMARY | 2024-01-29 21:38 | External Medical Summary | Summary of Care ---
Author Name Unknown Organization [facility] Address [address] [facility] [address] Phone [phone] Care Team Providers Care Shampooer Name Role Phone Ivonne French PA-C Primary Care Provider [phone] Reason for Visit * Reason Onset Date Comments Test Results Biopsy 11/22/2023 Encounter Details Date Type Department Care Team (Late st Contact Info) Description 11/22/2023 Telephone Hematology/Oncology Treatment, [place] [address] [place] [address] Shon Rice MD 200 [place] [address] Test Results Biopsy Allergies Active Allergy Reactions Criticality Noted Date [...] EVENING MEALS 180 Tablet 1 05/25/2023 Active Nowsupplier InternationalTouch Delica Lancets 33G Use to test blood sugar three times daily E 11.9 300 Each 05/25/2023 Active OneTouch Verio w/Device Kit Use up to 3 times a day E11.9 1 Kit 0 05/25/2023 Active Pen [place] 32G X 4 MM Use as [...] of nightm[place] heart without angina pectoris Take 1.5 Tablets [...] encounter Miscellaneous Notes * Telephone Encounter - Rice, Shon A, MD - 11/22/2023 4:17 PM EST I spoke with her on the phone, reviewed the bone marrow findings, she says that she has already received a message from [facility], she is seeing Dr. Senior tomorrow [...] Would like to have hematology evaluation at [facility] soon." Patient is not active on her portal. See other TE- sent to [facility] scheduling. Dr Rice: please call patient to review results of biopsy (new diagnosis) documented in this encounter Plan of Treatment Upcoming Encounters Date Type Department Care Team (Late st Contact Info) Description 11/23/2023 1:00 PM EST Office Visit Hematology Oncology [facility] [address] [place] [phone] Nilton Senior MD [address] [place] [address] 12/16/2023 11:20 AM EST Office Visit Family Practice, [place] [address] [facility] [phone] Ivonne French PA-C [address] [facility] [address] 12/16/2023 1:45 PM EST Office Visit Hematology/Oncology [facility] [place] [facility] [place] [address] Shon Rice MD [address] [facility] [place] [address] 12/23/2023 1:00 PM EST Office Visit Neurology, [place] [address] [place] [phone] Oralia Glass MD [address] [place], [place] [phone] 12/29/2023 8:10 AM EST Pharmacy Pharmacy, [facility] 132 [facility] [place] [address] [facility] 132 [facility] [place] [address] 01/07/2024 10:00 AM EST Office Visit [facility] [place] [address] [facility] [phone] Ivonne French PA-C [address] [facility], [place] [address] 01/31/2024 9:00 AM EDT Imaging Radiology [address] 132 [facility] [place] [address] 02/10/2024 11:40 AM EDT Office Visit [facility] [place] [address] [facility] [phone] Ivonne French PA-C [address] [place] [facility] [place] [address] 05/10/2024 8:15 AM EDT Office Visit Ophthalmology, [place] [address] [place] [address] Migel Ramires MD [address] [place] [address] Scheduled Procedures Name Priority Associated Diagnoses Date/Ti [...] this encounter Medical Devices Implanted Type Area Licensed Physical Therapist Device Identifier Shelf Expiration Date Model / Serial / Lot Lens Intraoc 21.0 - [id number] - [id number] Implanted:Qty : 1 on 07/06/2017 by Luis Eduardo Cole MD at OR [facility] Left: Eye BAUSCH & LOMB 01/05/2022 [id number] / [id number] / Lens Intraoc 21.0 - [id number] - [id number] Implanted:Qty : 1 on 07/20/2017 by Luis Eduardo Cole MD at OR [facility] Right: Eye BAUSCH & LOMB 01/05/2022 [id number] / [id number] / Syringe Prolaryn Del 1.0cc - [id number] Implanted:Qty : 1 on 11/20/2019 by Amber Jain MD at [place] [facility] Right: Mouth [employer] 10/21/2021 [id number] / / [id number] Implant Silastic 7 Silicone Sw - [id number] Implanted:Qty : 1 on 05/28/2020 by Farhat Pate MD at [place] [facility] Right: Throat [employer] [id number] / / documented as of this [...] and were consensually agreed upon. Care Teams Shampooer Relationship Specialty Start Date End Date Ivonne French PA-C [address] [place] [address] PCP - General Physician Data Modeling Specialist 07/24/21 documented as of this encounter
--- OUTSIDE RECORDS SUMMARY | 2024-01-29 21:38 | External Medical Summary | Summary of Care ---
Author Name Unknown Organization [facility] Address [address] [facility] [address] Phone [phone] Care Team Providers Care Motorcycle Repairer Name Role Phone Ivonne French PA-C Primary Care Provider [phone] Reason for Visit * Reason Onset Date Comments Test Results Biopsy 11/22/2023 Encounter Details Date Type Department Care Team (Late st Contact Info) Description 11/22/2023 Telephone Hematology/Oncology Treatment, [place] [address] [place] [address] Shon Rice MD [address] [place] [address] Test Results Biopsy Allergies Active Allergy Reactions [...] EVENING MEALS 180 Tablet 1 05/25/2023 Active CrowdCurityTouch Delica Lancets 33G Use to test blood sugar three times daily E 11.9 300 Each 05/25/2023 Active OneTouch Verio w/Device Kit Use up to 3 times a day E11.9 1 Kit 0 05/25/2023 Active Pen [place] 32G X 4 MM Use as directed. 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 NGS checkup--> Negative for known mutations, FLT3 negative, IDH mutation negative. TP53 mutationdetected. Would like to have hematology evaluation at [facility] soon." Patient is not active on her portal. See other TE- sent to [facility] scheduling. Dr Rice: please call patient to review results of biopsy (new diagnosis) documented in this encounter Plan of Treatment Upcoming Encounters Date Type Department Care Team (Late st Contact Info) Description 12/16/2023 11:20 AM EST Office Visit [facility] [address] [place] [phone] Ivonne French PA-C [address] [place] [address] 12/16/2023 1:45 PM EST Office Visit Hematology/Oncology [facility] [address] [place] [address] Shon Rice MD [address] [place] [address] 12/23/2023 1:00 PM EST Office Visit Neurology, [place] [address] [place] [phone] Oralia Glass MD [address] [place] [address] 12/29/2023 8:10 AM EST Pharmacy Pharmacy, [facility] [address] [facility] [place] [address] [facility] [address] [facility] [place] [address] 01/07/2024 10:00 AM EST Office Visit [facility] [place] [address] [facility] [phone] Ivonne French PA-C [address] [facility] [address] 01/31/2024 9:00 AM EDT Imaging Radiology [address], [place] [address] [facility] [place] [address] 02/10/2024 11:40 AM EDT Office Visit [facility] [place] [address] [facility] [phone] Ivonne French PA-C [address] [facility] [place] [address] 05/10/2024 8:15 AM EDT Office Visit Ophthalmology, [place] [address] [place] [address] Migel Ramires MD [address] [place] [address] Scheduled Procedures Name Priority Associated Diagnoses Date/Ti [...] 10) 12/26/2022 12/25/2022 COVID-19 Vaccine (3 - season) 2023 08/19/2021, 07/22/2021 Influenza Vaccine (FLU [...] this encounter Medical Devices Implanted Type Area Ladle Cleaner Device Identifier Shelf Expiration Date Model / Serial / Lot Lens Intraoc 21.0 - [id number] - [id number] Implanted:Qty : 1 on 07/06/2017 by Luis Eduardo Cole MD at OR [facility] Left: Eye BAUSCH & LOMB 01/05/2022 [id number] / [id number] / Lens Intraoc 21.0 - [id number] - [id number] Implanted:Qty : 1 on 07/20/2017 by Luis Eduardo Cole MD at OR [facility] Right: Eye BAUSCH & LOMB 01/05/2022 [id number] / [id number] / Syringe Prolaryn Del 1.0cc - [id number] Implanted:Qty : 1 on 11/20/2019 by Amber Jain MD at [place] [facility] Right: Mouth [employer] 10/21/2021 [id number] / / [id number] Implant Silastic 7 Silicone Sw - [id number] Implanted:Qty : 1 on 05/28/2020 by Farhat Pate MD at [place] [facility] Right: Throat [employer] [id number] / / documented as of [...] and were consensually agreed upon. Care Teams Motorcycle Repairer Relationship Specialty Start Date End Date Ivonne French PA-C [address] [place] [address] PCP - General Physician Attendant [facility] 07/24/21 documented as of this encounter
--- OUTSIDE RECORDS SUMMARY | 2024-01-29 21:38 | External Medical Summary ---
Author Name Unknown Address Unknown Organization K01:[facility] - [address] [place] [address] Laboratory Report Ordering Provider Test Date Status RAMIN HACKETT 11/23/2023 14:08:05 Final Observation Date Value Abnormality Reference (Units ) Status Phosphate 11/23/2023 14:08:05 4.3 2.5-4.8 (m g/dL) Final Performing Location [facility] - [address] [place] [address]
--- OUTSIDE RECORDS SUMMARY | 2024-01-29 21:38 | External Medical Summary ---
Author Name Unknown Address Unknown Organization K[facility] [address] [address] Laboratory Report Ordering Provider Test Date Status RAMIN HACKETT 11/23/2023 14:08:05 Final Observation Date Value Abnormality Reference (Units ) Status SYNC LEUKOCYTES IN BLOOD BY AUTOMATED COUNT 11/23/2023 14:08:05 15.67 Above high normal 4.00-10.80 (K/uL) Final Neutrophils/100 leukocytes in Blood by Manual count 11/23/2023 14:08:05 3.0 Below low normal 40.0-75.0 (%) Final Lymphocytes/100 leukocytes in Blood by Manual count 11/23/2023 14:08:05 80.0 Above high normal 18.0-42.0 (%) Final Monocytes/100 leukocytes in Blood by Manual count 11/23/2023 14:08:05 2.0 1.0-11.0 (%) Final Eosinophils/100 leukocytes in Blood by Manual count 11/23/2023 14:08:05 2.0 0.0-6.0 (%) Final Blasts/100 leukocytes in Blood by Manual count 11/23/2023 14:08:05 13.0 Above high normal <=0.0 (%) Final Neutrophils [#/volume] in Blood by Manual count 11/23/2023 14:08:05 0.47 Below low normal 1.80-7.70 (K/uL) Final Lymphocytes [#/volume] in Blood by Manual count 11/23/2023 14:08:05 12.54 Above high normal 1.00-4.80 (K/uL) Final Monocytes [#/volume] in Blood by Manual count 11/23/2023 14:08:05 0.31 0.00-1.10 (K/uL) Final Eosinophils [#/volume] in Blood by Manual count 11/23/2023 14:08:05 0.31 0.00-0.70 (K/uL) Final Blasts [#/volume] in Blood by Manual count 11/23/2023 14:08:05 2.04 Above high normal <=0.00 (K/uL) Final Variant lymphocytes [Presence] in Blood by Light microscopy 11/23/2023 14:08:05 Present Abnormal None Seen Final Performing Location [facility] - [address] [facility] [address]
--- OUTSIDE RECORDS SUMMARY | 2024-01-29 21:38 | External Medical Summary ---
Author Name Unknown Address Unknown Organization K09:[facility] [place] [address] Laboratory Report Ordering Provider Test Date Status RAMIN HACKETT 11/24/2023 09:57:16 Final Warfarin Therapy
INR: 2 .0-3.0 conventional anticoagulation
INR: 2.5- 3.5 high intensity anticoagulation Observation Date Value Abnormality Reference (Units ) Status PT 11/24/2023 09:57:16 14.2 11.6-15.2 (seconds) Final INR 11/24/2023 09:57:16 1.1 0.8-1.2 Final Performing Location [facility] [place] [address]
--- OUTSIDE RECORDS SUMMARY | 2024-01-29 21:38 | External Medical Summary | Summary of Care ---
Author Name Unknown Organization [facility] Address [address] [facility] [address] Phone [phone] Care Team Providers Care Booster Plant Operator Name Role Phone Ivonne French PA-C Primary Care Provider [phone] [phone] Reason for Visit * Reason Onset Date Comments Test Results Biopsy 11/22/2023 Encounter Details Date Type Department Care Team (Late st Contact Info) Description 11/22/2023 Telephone Hematology/Oncology Treatment, [place] [address] [place] [place] [address] Shon Rice MD 200 [place] [address] Test Results Biopsy Allergies Active Allergy Reactions [...] EVENING MEALS 180 Tablet 1 05/25/2023 Active Aequus TechnologiesTouch Delica Lancets 33G Use to test blood sugar three times daily E 11.9 300 Each 05/25/2023 Active OneTouch Verio w/Device Kit Use up to 3 times a day E11.9 1 Kit 0 05/25/2023 Active Pen [place] 32G X 4 MM Use as directed. [...] Hour (toPROL XL)Indications:Cor onary artery disease involving [place] coronary artery of [place] heart without angina pectoris Take 1.5 Tablets [...] - Rice, Shon A, MD - 11/22/2023 3:16 PM EST I called her twice on herself or, she was not available. Will try to reach her later on. When I saw her earlier and did a bone marrow, I told her that I am suspecting acute leukemia and now bone marrow confirms the same findings with acute myeloid leukemia. * Telephone Encounter - Rosette Clinton, RN - 11/22/2023 2:[address] Rice: "Bone marrow examination done on 11/17/2023: - Acute myeloid leukemia. NGS checkup--> Negative for known mutations, FLT3 negative, IDH mutation negative. TP53 mutationdetected. Would like to have hematology evaluation at [facility] soon." Patient is not active on her portal. See other TE- sent to [facility] [place]. [place] Rice: please call patient to review results of biopsy (new diagnosis) documented in this encounter Plan of Treatment Upcoming Encounters Date Type Department Care Team (Late st Contact Info) Description 12/16/2023 11:20 AM EST Office Visit [facility] [address] [place] [phone] Ivonne French PA-C [address] [place] [address] 12/16/2023 1:45 PM EST Office Visit Hematology/Oncology [employer] [address] [facility] [place] [address] Shon Rice MD [address] [place] [address] 12/23/2023 1:00 PM EST Office Visit Neurology, [address] [place] [phone] Oralia Glass MD [address] [place] [facility] [place] [address] 12/29/2023 8:10 AM EST Pharmacy Pharmacy, [facility] [place] [address] [facility] 132 [place] [address] 01/07/2024 10:00 AM EST Office Visit [facility] [place] [address] [facility], [place] [phone] Ivonne French PA-C [address] [facility] [place] [address] 01/31/2024 9:00 AM EDT Imaging Radiology [facility] 1st [facility] [address] [facility] [place] [address] 02/10/2024 11:40 AM EDT Office Visit [facility] [place] [address] [facility], [place] [phone] Ivonne French PA-C [address] [place] [facility] [address] 05/10/2024 8:15 AM EDT Office Visit Ophthalmology, [place] [address] [place] [address] Migel Ramires MD [address] [place] [address] Scheduled Procedures Name Priority Associated Diagnoses Date/Ti [...] score < 10) 12/26/2022 12/25/2022 COVID-19 Vaccine ( season) 2023 08/19/2021, 07/22/2021 Influenza Vaccine (FLU [...] 09/16/2022, Additional history exists GFR 11/17/2024 11/17/2023, 0 12/2023, 06/15/2023, Additional history exists P[employer] S[employer]-EVERY [...] this encounter Medical Devices Implanted Type Area Supervisor Of Operations Device Identifier Shelf Expiration Date Model / Serial / Lot Lens Intraoc 21.0 - [id number] - [id number] Implanted:Qty : 1 on 07/06/2017 by Luis Eduardo Cole MD at OR [facility] Left: Eye BAUSCH [employer] LOMB 01/05/2022 [id number] / [id number] / Lens Intraoc 21.0 - [id number] - [id number] Implanted:Qty : 1 on 07/20/2017 by Luis Eduardo Cole MD at OR [facility] Right: Eye BAUSCH [employer] LOMB 01/05/2022 [id number] / [id number] / Syringe Prolaryn Del 1.0cc - [id number] Implanted:Qty : 1 on 11/20/2019 by Amber Jain MD [place] [facility] Right: Mouth [employer] 10/21/2021 [id number] / / [id number] Implant Silastic 7 Silicone Sw - [id number] Implanted:Qty : 1 on 05/28/2020 by Farhat Pate MD [place] [facility] Right: Throat [employer] [id number] / / documented as of this [...] and were consensually agreed upon. Care Teams Booster Plant Operator Relationship Specialty Start Date End Date Ivonne French PA-C [address] [place] [facility] [place] [address] PCP - General Physician Dairy Bar Manager 07/24/21 documented as of this encounter
--- OUTSIDE RECORDS SUMMARY | 2024-01-29 21:38 | External Medical Summary ---
Author Name Unknown Address Unknown Organization K01:[facility] - [facility] [place] [address] Laboratory Report Ordering Provider Test Date Status RAMIN HACKETT 11/24/2023 09:57:16 Final Rheumatoid factor at a level above 50 IU/mL may lead to an overestimation of the D-dimer level. A normal D-dimer result (<0.50 ug/mL FEU) has a negative predictive value of approximately 95% for the exclusion of acute pulmonary embolism (PE) or deep vein thrombosis when there is low or moderate pretest PE probability. Increased D-dimer values are abnormal but do not indicate a specific disease state and the D-dimer increase does not definitively correlate with clinical severity of disease. Observation Date Value Abnormality Reference (Units ) Status Fibrin D-dimer FEU [Mass/volume] in Platelet poor plasma by Immunoassay 11/24/2023 09:57:16 >20.00 Above high normal <0.50 (ug/mL FEU) Final Performing Location [facility] - [facility] [address] [place] [address]
--- OUTSIDE RECORDS SUMMARY | 2024-01-29 21:38 | External Medical Summary | Summary of Care ---
Author Name Unknown Organization [facility] Address [address] [facility] [place] [address] Phone [phone] Care Team Providers Care Patient Scheduling Manager Name Role Phone Ivonne French PA-C Primary Care Provider [phone] [phone] Encounter Details Date Type Department Care Team (Late st Contact Info) Description 11/23/2023 Orders Only PATIENT PORTAL DO NOT DELETE THIS DEPT USED BY [place] [address] Allergies Active Allergy Reactions Criticality Noted Date Comments Adhesive Tape 04/21/2016 Glue off the old style medical tape. documented as of this encounter (statuses as of 11/23/2023) Medications Medication Sig Dispensed Refills Start Date [...] with hemoglobin A1c goal of 7.0%-8.0% ([facility]) TAKE ONE TABLET BY MOUTH TWICE A DAY WITH MORNING AND EVENING MEALS 180 Tablet 1 05/25/2023 Active OneTouch Delica Lancets 33G Use to test blood sugar three times daily E 11.9 300 Each 05/25/2023 Active OneTouch Verio w/Device Kit Use up to 3 times a day E11.9 1 Kit 0 05/25/2023 Active Pen [place] 32G X 4 MM Use as directed. 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 Take 1.5 Tablets [...] as of this encounter (statuses as of 11/23/2023) Active Problems Problem Noted Date Diagnosed Date [...] as of this encounter (statuses as of 11/23/2023) Resolved Problems Problem Noted Date Diagnosed Date [...] as of this encounter (statuses as of 11/23/2023) Immunizations Name Administration Dates Next Due COVID-19 [...] No 05/28/2020 documented as of this encounter Plan of Treatment Upcoming Encounters Date Type Department Care Team (Late st Contact Info) Description 12/16/2023 11:20 AM EST Office Visit [address] [phone] Ivonne French PA-C [address] [facility], [place] [address] 12/16/2023 1:45 PM EST Office Visit Hematology/Oncology [facility] [address] [facility] [place] [address] Shon Rice MD [address] [facility] [place], [place] [address] 12/23/2023 1:00 PM EST Office Visit Neurology, [place] [address] [place] [address] Oralia Glass MD [address] [place] [address] 12/29/2023 8:10 AM EST Pharmacy Pharmacy, [facility] [address] [facility] [place] [address] [facility] 132 [facility] [place] [address] 01/07/2024 10:00 AM EST Office Visit [facility] [place] [address] [facility] [phone] Ivonne French PA-C [address] [facility] [address] 01/31/2024 9:00 AM EDT Imaging Radiology [facility] 1st [facility] [address] [facility] [place] [address] 02/10/2024 11:40 AM EDT Office Visit [facility] [place] [address] [facility] [phone] Ivonne French PA-C [address] [facility] [address] 05/10/2024 8:15 AM EDT Office Visit Ophthalmology, [place] [address] [place] [address] Migel Ramires MD [address] [place] [address] Scheduled Procedures Name Priority Associated Diagnoses Date/Ti [...] 01/21/2022, Additional history exists HbA1c 05/09/2024 11/09/2023, 0 06/2023, 04/27/2023, Additional history exists Albumin/Creatinine Ratio [...] encounter Medical Devices Implanted Type Area Freight Receiver Device Identifier Shelf Expiration Date Model / Serial / Lot Lens Intraoc 21.0 - [id number] - [id number] Implanted:Qty : 1 on 07/06/2017 by Luis Eduardo Cole MD at OR [facility] Left: Eye [employer]CH [employer] LOMB 01/05/2022 [id number] / [id number] / Lens Intraoc 21.0 - [id number] - [id number] Implanted:Qty : 1 on 07/20/2017 by Luis Eduardo Cole MD at OR [facility] Right: Eye [employer]CH [employer] LOMB 01/05/2022 [id number] / [id number] / Syringe Prolaryn Del 1.0cc - [id number] Implanted:Qty : 1 on 11/20/2019 by Amber Jain MD at OR [facility] Right: Mouth [employer] 10/21/2021 [id number] / / [id number] Implant Silastic 7 Silicone Sw - [id number] Implanted:Qty : 1 on 05/28/2020 by Farhat Pate MD at OR [facility] Right: Throat [employer] [id number] / / documented as of this [...] and were consensually agreed upon. Care Teams Patient Scheduling Manager Relationship Specialty Start Date End Date Ivonne French PA-C [address] [place] [address] PCP - General Physician Scrap Cutter 07/24/21 documented as of this encounter
--- OUTSIDE RECORDS SUMMARY | 2024-01-29 21:38 | External Medical Summary ---
Author Name Unknown Address Unknown Organization K01:[facility] - [address] [place] [address] Laboratory Report Ordering Provider Test Date Status RAMNI HACKETT 11/23/2023 14:08:05 Final Observation Date Value Abnormality Reference (Units ) Status LDH 11/23/2023 14:08:05 506 Above high normal <= 250 (U/L) Final Result may be falsely elevat ed due to hemolysis. Performing Location [facility] - [address] [place] [address]
--- OUTSIDE RECORDS SUMMARY | 2024-01-29 21:38 | External Medical Summary ---
Author Name Unknown Address Unknown Organization K09:[facility] [place] - [address] [place] [address] Laboratory Report Ordering Provider Test Date Status RAMIN HACKETT 11/24/2023 09:57:16 Final Observation Date Value Abnormality Reference (Units ) Status SYNC LEUKOCYTES IN BLOOD BY AUTOMATED COUNT 11/24/2023 09:57:16 13.06 Above high normal 4.00-10.80 (K/uL) Final Neutrophils/100 leukocytes in Blood by Manual count 11/24/2023 09:57:16 3.0 Below low normal 40.0-75.0 (%) Final Lymphocytes/100 leukocytes in Blood by Manual count 11/24/2023 09:57:16 80.0 Above high normal 18.0-42.0 (%) Final Monocytes/100 leukocytes in Blood by Manual count 11/24/2023 09:57:16 5.0 1.0-11.0 (%) Final Blasts/100 leukocytes in Blood by Manual count 11/24/2023 09:57:16 12.0 Above high normal <=0.0 (%) Final Neutrophils [#/volume] in Blood by Manual count 11/24/2023 09:57:16 0.39 Below low normal 1.80-7.70 (K/uL) Final Lymphocytes [#/volume] in Blood by Manual count 11/24/2023 09:57:16 10.45 Above high normal 1.00-4.80 (K/uL) Final Monocytes [#/volume] in Blood by Manual count 11/24/2023 09:57:16 0.65 0.00-1.10 (K/uL) Final Blasts [#/volume] in Blood by Manual count 11/24/2023 09:57:16 1.57 Above high normal <=0.00 (K/uL) Final Nucleated erythrocytes/100 leukocytes [Ratio] in Blood by Automated count 11/24/2023 09:57:16 1 Above high normal <=0 (/100 WBCs) Final Acanthocytes [Presence] in Blood by Light microscopy 11/24/2023 09:57:16 Moderate Abnormal None Seen Final Variant lymphocytes [Presence] in Blood by Light microscopy 11/24/2023 09:57:16 Present Abnormal None Seen Final Smudge cells [Presence] in Blood by Light microscopy 11/24/2023 09:57:16 Present Abnormal None Seen Final Performing Location [facility] [place] [address] [place] [address]
--- OUTSIDE RECORDS SUMMARY | 2024-01-29 21:38 | External Medical Summary ---
Author Name Unknown Address Unknown Organization K01:[facility] - [address] [place] [address] Laboratory Report Ordering Provider Test Date Status RAMIN HACKETT 11/23/2023 14:08:05 Final Observation Date Value Abnormality Reference (Units ) Status WBC, Total 11/23/2023 14:08:05 15.67 Above high normal 4.00-10.80 (K/uL) Final RBC 11/23/2023 14:08:05 4.27 3.85-5.15 (M/uL) Final Hemoglobin 11/23/2023 14:08:05 12.1 12.0-15.3 (g/dL) Final HCT 11/23/2023 14:08:05 36.3 36.0-45.2 (%) Final MCV 11/23/2023 14:08:05 85.0 81.5-97.5 (fL) Final MCH 11/23/2023 14:08:05 28.3 27.0-34.0 (pg) Final MCHC 11/23/2023 14:08:05 33.3 32.0-36.0 (g/dL) Final RDW 11/23/2023 14:08:05 19.7 11.5-15.5 (%) Final Platelets 11/23/2023 14:08:05 123 Below low normal 140-400 (K/uL) Final MPV 11/23/2023 14:08:05 8.7 6.6-11.1 (fL) Final Nucleated erythrocytes/100 leukocytes [Ratio] in Blood by Automated count 11/23/2023 14:08:05 1 Above high normal <=0 (/100 WBCs) Final Performing Location [facility] - [address] [facility] [place] [address]
--- OUTSIDE RECORDS SUMMARY | 2024-01-29 21:38 | External Medical Summary ---
Author Name Unknown Address Unknown Organization K01:[facility] [place] [address] [place] [address] Laboratory Report Ordering Provider Test Date Status RAMIN HACKETT 11/24/2023 09:57:16 Final Anticoagulation may affect t esting. Refer to [employer] Test Catalog for a list of effects. Observation Date Value Abnormality Reference (Units ) Status aPTT panel - Platelet poor plasma 11/24/2023 09:57:16 40 Above high normal 21-38 (seconds) Final Performing Location LAB[facility]ORY [facility] - [address] [place] [address]
--- OUTSIDE RECORDS SUMMARY | 2024-01-29 21:38 | External Medical Summary | Summary of Care ---
Author Name Unknown Organization [facility] Address [address] [place] [place] [address] Phone [phone] Care Team Providers Care Classifications Officer Cc/Cm Name Role Phone Ivonne French PA-C Primary Care Provider [phone] Reason for Visit * Reason Onset Date Comments Test Results Biopsy 11/22/2023 Advice 11/22/2023 Rice patient. Encounter Details Date Type Department Care Team (Late st Contact Info) Description 11/22/2023 Telephone Hematology/Oncology Treatment, [place] [address] [place] [address] Shon Rice MD [address] [place] [address] Test Results Biopsy; Advice (Dwayne patient./) Allergies [...] EVENING MEALS 180 Tablet 1 05/25/2023 Active LikeBetter.comTouch Delica Lancets 33G Use to test blood sugar three times daily E 11.9 300 Each 05/25/2023 Active OneTouch Verio w/Device Kit Use up to 3 times a day E11.9 1 Kit 0 05/25/2023 Active Pen [place] 32G X 4 MM Use as [...] Hour (toPROL XL)Indications:Craig nary artery disease involving [place] coronary artery of [place] heart without angina pectoris Take 1.5 Tablets [...] to hear when she can go to [place]. Advised her that her daughter called with [...] a message from [facility], she is seeing Dr. Senior tomorrow [...] her portal. See other TE- sent to [facility] scheduling. Dr Rice: please call patient to review results of biopsy (new diagnosis) documented in this encounter Plan of Treatment Upcoming Encounters Date Type Department Care Team (Late st Contact Info) Description 11/24/2023 10:50 AM EST Laboratory Laboratory [facility] [place] [address] [facility] [place] [address] [facility] [address] [facility] [place] [address] Acute myeloid leukemia not having achieved remission (HCC) 12/16/2023 11:20 AM EST Office Visit [facility] [address] [place] [phone] Ivonne French PA-C [address] [place] [address] 12/16/2023 1:45 PM EST Office Visit Hematology/Oncology [facility] [place] [address] [place] [address] Shon Rice MD [address] [place] [address] 12/23/2023 1:00 PM EST Office Visit Neurology, [place] [address] [place] [phone] Oralia Glass MD [address] [place] [address] 12/29/2023 8:10 AM EST Pharmacy Pharmacy, [facility] [address] [facility] [place] [address] [facility] [place] [address] 01/07/2024 10:00 AM EST Office [facility] [place] [address] [facility] [phone] Ivonne French PA-C [address] [facility] [address] 01/31/2024 9:00 AM EDT Imaging Radiology [facility] [address] [place] [address] 02/10/2024 11:40 AM EDT Office Visit [facility] [place] [address] [facility] [phone] Ivonne French PA-C [address] [facility] [address] 05/10/2024 8:15 AM EDT Office Visit OphthalmologyFrancisco J [address] [place] [address] Migel Ramires MD [address] [place] [address] Scheduled Procedures Name Priority Associated Diagnoses Date/Ti [...] this encounter Medical Devices Implanted Type Area Entertainment Reporter Device Identifier Shelf Expiration Date Model / Serial / Lot Lens Intraoc 21.0 - [id number] - [id number] Implanted:Qty : 1 on 07/06/2017 by Luis Eduardo Cole MD at OR [facility] Left: Eye BAUSCH & LOMB 01/05/2022 [id number] / [id number] / Lens Intraoc 21.0 - [id number] - [id number] Implanted:Qty : 1 on 07/20/2017 by Luis Eduardo Cole MD at OR [facility] Right: Eye BAUSCH & LOMB 01/05/2022 [id number] / [id number] / Syringe Prolaryn Del 1.0cc - [id number] Implanted:Qty : 1 on 11/20/2019 by Amber Jain MD at OR [facility] Right: Mouth [employer] 10/21/2021 [id number] / / [id number] Implant Silastic 7 Silicone Sw - [id number] Implanted:Qty : 1 on 05/28/2020 by Farhat Pate MD at OR [facility] Right: Throat Re-APP [id number] / / documented as of this [...] and were consensually agreed upon. Care Teams Classifications Officer Cc/Cm Relationship Specialty Start Date End Date Ivonne French PA-C [address] [facility] [place] [address] PCP - General Physician State Director 07/24/21 documented as of this encounter
--- OUTSIDE RECORDS SUMMARY | 2024-01-29 21:38 | External Medical Summary ---
Author Name Unknown Address Unknown Organization K01:[facility] [address] [place] [address] Laboratory Report Ordering Provider Test Date Status RAMIN HACKETT 11/24/2023 09:57:16 Final Observation Date Value Abnormality Reference (Units ) Status Fibrinogen 11/24/2023 09:57:16 199 178-467 ( mg/dL) Final Performing Location [facility] [address] [place] [address]
--- OUTSIDE RECORDS SUMMARY | 2024-01-29 21:38 | External Medical Summary | Summary of Care ---
Author Name Unknown Organization [facility] Address [address] [facility] [address] Phone [phone] Care Team Providers Care Ear Pull Machine Operator Name Role Phone Ivonne French PA-C Primary Care Provider [phone] Reason for Visit * Reason Comments Outpatient Testing Encounter Details Date Type Department Care Team (Late st Contact Info) Description 11/24/2023 10:50 AM EST Laboratory Laboratory [facility] [address] [place] [address] [facility] [address] [place] [address] Acute myeloid leukemia not having achieved remission [...] hemoglobin A1c goal of 7.0%-8.0% ([facility]) TAKE ONE TABLET BY MOUTH TWICE A DAY WITH MORNING AND EVENING MEALS 180 Tablet 1 05/25/2023 Active OurpalmTouch Delica Lancets 33G Use to test blood sugar three times daily E 11.9 300 Each 05/25/2023 Active OneTouch Verio w/Device Kit Use up to 3 times a day E11.9 1 Kit 0 05/25/2023 Active Pen [place] 32G X 4 MM Use as directed. [...] Hour (toPROL XL)Indications:Craig nary artery disease involving [place] coronary artery of [place] heart without angina pectoris Take 1.5 Tablets [...] 11/23/2023 Active Hydroxyurea 500 MG Oral Capsule (Hydrea)Indications :Acute myeloid leukemia not having achieved remission (HCC) Take 1 Capsule by mouth 2 times a day 30 minutes before morning and evening meals. 60 Capsule 0 11/23/2023 Active documented as of this encounter (statuses [...] Description 12/16/2023 11:20 AM EST Office Visit [facility] [place] [facility] [place] [phone] Ivonne French PA-C [address] [facility] [address] 12/16/2023 1:45 PM EST Office Visit Hematology/Oncology [facility] [address] [facility] [place] [address] Shon Rice MD [address] [facility] [place] [address] 12/23/2023 1:00 PM EST Office Visit Neurology, [place] [address] [place] [phone] Oralia Glass MD [address] [place], [place] [address] 12/29/2023 8:10 AM EST Pharmacy Pharmacy, [facility] [address] [facility] [place] [address] [facility] [place] [address] 01/07/2024 10:00 AM EST Office Visit [facility] [place] [address] [facility] [place] [phone] Ivonne French PA-C [address] [facility] [address] 01/31/2024 9:00 AM EDT Imaging Radiology [facility] [facility], [place] [address] [place] [address] 02/10/2024 11:40 AM EDT Office Visit [facility] [place] [address] [facility] [phone] Ivonne French PA-C [address] [facility] [place] [address] 05/10/2024 8:15 AM EDT Office Visit Ophthalmology, [place] [address] [place] [address] Migel Ramires MD [address] [place] [address] Pending Results Name Type Priority Associated Diagnoses Date /Time CBC WITH WBC DIFFERENTIAL Lab Routine Acute myeloid leukemia not having achieved remission (HCC) 11/24/2023 9:57 AM EST CBC Lab Routine Acute myeloid leukemia not having achieved remission (HCC) 11/24/2023 9:57 AM EST DIFFERENTIAL, AUTOMATED Lab Routine Acute myeloid leukemia not having achieved remission (HCC) 11/24/2023 9:57 AM EST Scheduled Procedures Name Priority Associated [...] encounter Medical Devices Implanted Type Area Die Cast Engineer Device Identifier Shelf Expiration Date Model / Serial / Lot Lens Intraoc 21.0 - [id number] - [id number] Implanted:Qty : 1 on 07/06/2017 by Luis Eduardo Cole MD at OR [facility] Left: Eye BAUSCH & LOMB 01/05/2022 [id number] / [id number] / Lens Intraoc 21.0 - [id number] - [id number] Implanted:Qty : 1 on 07/20/2017 by Luis Eduardo Cole MD at OR [facility] Right: Eye BAUSCH & LOMB 01/05/2022 [id number] / [id number] / Syringe Prolaryn Del 1.0cc - [id number] Implanted:Qty : 1 on 11/20/2019 by Amber Jain MD [place] [facility] Right: Mouth [employer] 10/21/2021 [id number] / / [id number] Implant Silastic 7 Silicone Sw - [id number] Implanted:Qty : 1 on 05/28/2020 by Farhat Pate MD [place] [facility] Right: Throat [employer] [id number] / / documented as of [...] and were consensually agreed upon. Care Teams Ear Pull Machine Operator Relationship Specialty Start Date End Date Ivonne French PA-C [address] [facility] [place] [address] PCP - General Physician Manager Call 07/24/21 documented as of this encounter
--- OUTSIDE RECORDS SUMMARY | 2024-01-29 21:38 | External Medical Summary | Summary of Care ---
Author Name Unknown Organization [facility] Address [address] [facility] [place] [address] Phone [phone] Care Team Providers Care Personal Banking Assistant Name Role Phone Ivonne French PA-C Primary Care Provider [phone] Reason for Visit * Reason Onset Date Comments Appointment 11/22/2023 Encounter Details Date Type Department Care Team (Late st Contact Info) Description 11/22/2023 Telephone Hematology/Oncology [facility] [place] [address] [facility] [place] [address] Shon Rice MD [address] [facility] [address] Appointment Allergies Active Allergy Reactions Criticality Noted [...] mellitus with hemoglobin A1c goal of 7.0%-8.0% ([facility]) TAKE ONE TABLET BY MOUTH TWICE A DAY WITH MORNING AND EVENING MEALS 180 Tablet 1 05/25/2023 Active YardsaleTouch Delica Lancets 33G Use to test blood sugar three times daily E 11.9 300 Each 05/25/2023 Active YardsaleTouch Verio w/Device Kit Use up to 3 times a day E11.9 1 Kit 0 05/25/2023 Active Pen [place] 32G X 4 MM Use as directed. 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 Thank you documented in this encounter Plan of Treatment Upcoming Encounters Date Type Department Care Team (Late st Contact Info) Description 12/16/2023 11:20 AM EST Office Visit [facility] [address] [facility] [phone] Ivonne French PA-C [address] [facility] [address] 12/16/2023 1:45 PM EST Office Visit Hematology/Oncology [facility] [address] [facility] [place] [address] Shon Rice MD [address] [facility] [place] [address] 12/23/2023 1:00 PM EST Office Visit Neurology, [place] [address] [place] [phone] Oralia Glass MD [address] [place], [place] [address] 12/29/2023 8:10 AM EST Pharmacy Pharmacy, [facility] [address] [place] [address] [facility] [address] [place] [address] 01/07/2024 10:00 AM EST Office Visit [facility] [address] [facility] [phone] Ivonne French PA-C [address] [facility] [phone] 01/31/2024 9:00 AM EDT Imaging Radiology [facility]st [facility] [place] [address] [facility] [place] [address] 02/10/2024 11:40 AM EDT Office Visit Located Within [facility] [address] [facility] [place] [phone] Ivonne French PA-C [address] [place] [address] 05/10/2024 8:15 AM EDT Office Visit Ophthalmology, [place] [address] [place] [address] Migel Ramires MD [address] [place] [address] Scheduled Procedures Name Priority Associated Diagnoses Date/Ti [...] encounter Medical Devices Implanted Type Area Marine Underwriter Device Identifier Shelf Expiration Date Model / Serial / Lot Lens Intraoc 21.0 - [id number] - [id number] Implanted:Qty : 1 on 07/06/2017 by Luis Eduardo Cole MD at OR [facility] Left: Eye BAUSCH & LOMB 01/05/2022 [id number] / [id number] / Lens Intraoc 21.0 - [id number] - [id number] Implanted:Qty : 1 on 07/20/2017 by KelseyLuis Eduardo pedro MD at OR [facility] Right: Eye BAUSCH & LOMB 01/05/2022 [id number] / [id number] / Syringe Prolaryn Del 1.0cc - [id number] Implanted:Qty : 1 on 11/20/2019 by Amber Jain MD [place] [facility] Right: Mouth [employer] 10/21/2021 [id number] / / [id number] Implant Silastic 7 Silicone Sw - [id number] Implanted:Qty : 1 on 05/28/2020 by Farhat Pate MD [place] [facility] Right: Throat Zzish [id number] / / documented as of this [...] and were consensually agreed upon. Care Teams Personal Banking Assistant Relationship Specialty Start Date End Date Ivonne French PA-C [address] [place] [address] PCP - General Physician Wood Tank Builder 07/24/21 documented as of this encounter
--- OUTSIDE RECORDS SUMMARY | 2024-01-29 21:38 | External Medical Summary ---
Author Name Unknown Address Unknown Organization K01:[facility] - [address] [place] [address] Laboratory Report Ordering Provider Test Date Status RAMIN HACKETT 11/23/2023 14:08:05 Final Observation Date Value Abnormality Reference (Units ) Status BUN 11/23/2023 14:08:05 24 Above high normal 6-20 (mg/dL) Final Creatinine 11/23/2023 14:08:05 1.0 0.5-1.0 (mg/dL) Final Glomerular filtration rate/1.73 sq M.predicted [Volume Rate/Area] in Serum, Plasma or Blood by Creatinine-based formula (CKD-EPI) 11/23/2023 14:08:05 63 >=60 (mL/min) Final eGFR is calculated based on the CKD-EPI 2020 equation SODIUM 11/23/2023 14:08:05 138 135-146 (m mol/L) Final Potassium 11/23/2023 14:08:05 4.5 3.5-5.1 (m mol/L) Final Cl 11/23/2023 14:08:05 99 98-107 (mm ol/L) Final CO2 11/23/2023 14:08:05 26 22-32 (mmo l/L) Final Anion gap 11/23/2023 14:08:05 13 7-15 (mmol /L) Final Glucose 11/23/2023 14:08:05 165 Above high normal 70 -120 (mg/dL) Final Albumin 11/23/2023 14:08:05 4.6 3.8-5.0 (g /dL) Final AST (Aspartate aminotransferase) 11/23/2023 14:08:05 27 10-35 (U/L) Fin al Result may be falsely elevat ed due to hemolysis. Alk Phos 11/23/2023 14:08:05 63 35-130 (U/ L) Final Bilirubin, Total 11/23/2023 14:08:05 0.4 <=1 .2 (mg/dL) Final Calcium 11/23/2023 14:08:05 9.6 8.4-10.2 ( mg/dL) Final Protein 11/23/2023 14:08:05 7.7 6.0-8.3 (g /dL) Final ALT (Alanine aminotransferase) 11/23/2023 14:08:05 14 10-35 (U/L) Final Performing Location [facility] - [address] [facility] [address]
--- OUTSIDE RECORDS SUMMARY | 2024-01-29 21:38 | External Medical Summary | Summary of Care ---
Author Name Unknown Organization [facility] Address [address] [place] [address] Phone [phone] Care Team Providers Care Cloud Engagement Partner Name Role Phone Ivonne French PA-C Primary Care Provider [phone] Reason for Visit * Reason Comments NEW PATIENT * Evaluate & Treat - Unlimited Visits (Within 3 days (urgent)) - Authorized Specialty Diagnoses / Procedures Referred By Contsumanth t Referred To Contact Hematology/Oncology / Hematology Oncology Diagnoses Acute myeloid leukemia not having achieved remission (HCC) Shon Rice MD [address] [place] [id number] Referral ID Status Reason Start Date Expiration Date Visits Requested Visits Authorized [id number] Authorized Specialty Services Required 11/22/2023 999 [id number] Encounter Details Date Type Department Care Team (Latest Contact Info) Description 11/23/2023 1:00 PM EST Office Visit Hematology Oncology [facility] [address] [place] [address] Nilton Senior MD [address] [place] [address] Acute myeloid leukemia not having [...] EVENING MEALS 180 Tablet 1 05/25/2023 Active Global VelocityTouch Delica Lancets 33G Use to test blood sugar three times daily E 11.9 300 Each 5 05/25/2023 Active Global VelocityTouch Verio w/Device Kit Use up to 3 [...] of atka heart without angina pectoris Take 1.5 Tablets [...] Pressure 114/68 11/23/2023 12:51 PM EST ma nual Pulse 79 11/23/2023 12:51 PM EST Temperature [...] as of this encounter Progress Notes * VadNilton martins MD - 11/23/2023 1:02 PM EST Images [...] Symptoms: as above History of Blood Transfusions:Never DISABILITY EXAMINER history: Dental history:Has plates Dietary:Regular Bleeding:None Ethnicity: [...] A DAY WITH MORNING AND EVENING MEALS Likehack Lancets 33G Use to test blood sugar three times daily E 11.9 Lecorpiouch Verio w/Device Kit Use up to 3 times a day E11.9 Pen [place] 32G X 4 MM Use [...] 08/15/2021 Hyperthyroidism [E05.90] 08/15/2021 MEDICATION USE AGREEMENT [[id number]] 08/15/2021 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] 07/31/2021 S/P foot surgery, right [Z98.890] 07/17/2021 Major depressive disorder, single episode, mild ([facility]) [F32.0] 01/06/2021 Diabetic polyneuropathy associated with type 2 diabetes mellitus (HCC) [E11.42] 01/06/2021 Vocal fold paralysis, 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/09/2019 Post op HNP (herniated nucleus pulposus), cervical [M50.20] 05/09/2019 Diabetic retinopathy associated with diabetes mellitus due to underlying condition ([facility]) [E08.319] 08/24/2016 Herpes simplex virus infection [...] DIAGNOSTIC (RECTUM) 12/16/2016 adenomatous polyps, repeat 5 yrs/[facility] COLONOSCOPY, DIAGNOSTIC (RECTUM) 06/03/2022 diverticulosis, fair prep, repeat 5 yrs / [facility] EGD, FLEXIBLE, DIAGNOSTIC 12/16/2016 normal bx/[facility] EGD, FLEXIBLE, W/BIOPSY 07/30/2010 esophagitis, await BX LARYNGOPLASTY MEDIALIZATION UNILATERAL Right 05/28/2020 LARYNGOPLASTY, MEDIALIZATION UNILATERAL performed by Farhat Pate MD at OR [facility] LARYNGOSCOPY, VOCAL CORD INJECTION Right 11/20/2019 LARYNGOSCOPY DIRECT INJECTION VOCAL CORD WITH MICROSCOPE performed by Amber Jain MD at [facility] MISCELLANEOUS ORDER ([facility] ONLY) Bilateral 11/24/2017 Reinheimer-bleph/levators-ou OTHER (3 times) 8 inch benign tumor removed from L femur; regrew x 3 OTHER Removal of a benign LN from L axilla REMOVAL OF THYROID GLAND 10/23/2009 total thyroidectomy 10/23/09, [facility], Dr. Vazquez REMOVE CATARACT, INSERT LENS PROSTH Right 07/20/2017 right EXTRACAPSULAR CATARACT REMOVAL WITH INTRAOCULAR LENS performed by Luis Eduardo Cole MD at OR [facility] REMOVE CATARACT, INSERT LENS PROSTH Left 07/06/2017 left EXTRACAPSULAR CATARACT REMOVAL WITH INTRAOCULAR LENS performed by Luis Eduardo Cole MD at [facility] REMOVE GALLBLADDER 2004 or so Social History Socioeconomic History Marital [...] foraminal stenosis. No suspicious enhancing abnormalities. Path: [facility] RAPID ACUTE LEUKEMIA GENE PANEL, NEXT GENERATION SEQUENCING Specimen: Bone Marrow, Aspirate Result Value Ref Range Result Summary This is a PRELIMINARY REPORT. Refer to [facility] Hematology Gene Panel ([facility]) final report for additional variants detected. The results of complete testing and interpretation will be issued in the [facility] final report, which could contain information that [...] 8, 9, 10, 11 [id number] Fusion Atv Mechanic Gene Result [employer] Tested (see complete list in methodology) ABL1 Fusion not detected BCR t(9;22) CBFB Fusion not detected MYH11 inv(16)/t(16;16) CREBBP Fusion not detected KAT6A t(8;16) ETV6 Fusion not detected MECOM t(3;12), RUNX1 t(12;21) KMT2A Fusion not detected AFF1 t(4;11), MLLT3 t(9;11), MLLT4 t(6;11), MLLT10 t(10;11) MECOM Fusion not detected ETV6 t(3;12), RUNX1 t(3;21) FOH216 Fusion not detected DEK t(6;9) MARLYS Fusion not detected PML t(15;17) RUNX1 Fusion not detected ETV6 t(12;21), MECOM t(3;21), ASXL8C2 t(8;21) Result Detail Gene Variant Tier Amino Acid Change Nucleotide Change Consequence Allele Frequency Sequencing Depth TP53 V173M Tier 2: Potential significance [id number].[id number] [id number]: c.517G>A Missense Variant 91.5% [address] Lia Ponce FLOW CYTOMETRY, LEUKEMIA LYMPHOMA PANEL Result Value Ref Range Indication for Flow Testing Neutropenia, blasts in the peripheral smear Viability (%) Specimen A: 80 % Cell Count Specimen A: Cells/uL in mL of Fluid 76412 Cells/uL in 3.0 mL of fluid Gross [...] with prior peripheral blood analysis (please see [id number] for cytoplasmic markers). Correlation with morphology ([id number]) and the complete clinicopathologic work-up is required [...] Performed A1: KAPPA (FITC), LAMBDA (PE), CD5 (JWCGHDG74), CD19 (PE-CY7), CD20 (APC), CD23 (APC R700), CD45 (APCH7), FMC7 (BV450), CD43 RUO (BV510), CD10 (BV605). A2: CD8 (FITC), CD16 (PE), CD3 (OXGRFZO84), CD5(PE-CY7), CD14 (APC), CD56 (APC R700), CD45 (APCH7), CD2 (BV450), CD4 (BV510), CD7 (BV605). A3: CD7(FITC), CD64 (PE), CD38 (ITBXGEQ27), CD33 (PE-CY7), CD13 (APC), CD34 (APC R700), CD45 (APCH7), CD14 (BV450), WA50-N097 (BV510), CD117 (BV605). A4: CD16 (FITC), CD11B (PE), CD22 (DPGSAEE42), CD19 (PE-CY7), HLADR (APC), CD45 (APCH7), CD15 (BV450), CD10 (BV605), CD34 (APC R700). Performing Labs AML FAVORABLE-RISK FISH PANEL Result Value Ref Range External Lab Report See Scanned Report PML/MARLYS T(15;17) FISH Result Value Ref Range External Lab Report See Scanned Report AML [id number] FISH PANEL Result Value Ref Range External Lab Report See Scanned Report BONE MARROW WITH REFLEX TESTING Result Value Ref Range Diagnosis Bone marrow, right posterior iliac crest, aspirate, biopsy, clot, touch imprints, and peripheral blood: - Acute myeloid leukemia, pending ancillary testing for final classification. Comment: Flow cytometric immunophenotypic analysis ([id number]) shows 77% blasts, consistent with acute myeloid [...] B+ fixative with a container labeled with "RiteTag", "[id number]", "1965" and "right iliac crest". Received is a red-brown cylindrical portion of bone measuring 1.6 x 0.2 cm. The specimen is wrapped and submitted in B1 following decalcification. Grossed By: VICTORINA C. Bone Marrow Clot, Right Iliac Crest. Received in B+ fixative with a container labeled with "Taliciouser", "[id number]", "1965" and " right iliac crest". Received is a 4.5 x 3.0 x 0.5 cm aggregate of red-brown blood clot. The specimen is wrapped and submitted entirely in C1-C6 . Gross By: VICTORINA Sign Out Location Pathologist sign out performed at [facility] ([facility]), [address] [place] [address]. *Note: Due to a large number of [...] bed available Nilton Senior MD Hematology Oncology [address] [address] documented in this encounter Nursing Notes * [...] Description 12/16/2023 11:20 AM EST Office Visit [facility], [place] [address], [place] [phone] Ivonne French PA-C [address] [facility] [address] 12/16/2023 1:45 PM EST Office Visit Hematology[facility] [address] [facility] [address] Shon Rice MD [address] [facility] [address] 12/23/2023 1:00 PM EST Office Visit Neurology, [place] [address] [place] [phone] Oralia Glass MD [address] [place] [address] 12/29/2023 8:10 AM EST Pharmacy Pharmacy, [facility] [address] [facility] [place] [address] [facility] [address] [facility] [place] [address] 01/07/2024 10:00 AM EST Office Visit [facility] [place] [address] [phone] Ivonne French PA-C [address] [facility] [address] 01/31/2024 9:00 AM EDT Imaging Radiology [address] [facility] [place] [address] 02/10/2024 11:40 AM EDT Office Visit [facility] [address] [place] [phone] Ivonne French PA-C [address] [place] [facility] [place] [address] 05/10/2024 8:15 AM EDT Office Visit Ophthalmology, [place] [address] [place] [address] Migel Ramires MD [address] [place] [address] Pending Results Name Type Priority Associated Diagnoses [...] not having achieved remission (HCC) Every , Thurs, Sat for 5 Occurrences starting 11/23/2023 until 01/22/2024 ABO/RH Lab Routine Acute myeloid leukemia not having achieved remission (HCC) Every , Thurs, Sat for 5 Occurrences starting 11/23/2023 until [...] this encounter Medical Devices Implanted Type Area Application Packaging Consultant Device Identifier Shelf Expiration Date Model / Serial / Lot Lens Intraoc 21.0 - [id number] - [id number] Implanted:Qty : 1 on 07/06/2017 by Luis Eduardo Cole MD at OR [facility] Left: Eye [employer] 01/05/2022 [id number] / [id number] / Lens Intraoc 21.0 - [id number] - [id number] Implanted:Qty : 1 on 07/20/2017 by Luis Eduardo Cole MD at [facility] Right: Eye [employer] 01/05/2022 [id number] / [id number] / Syringe Prolaryn Del 1.0cc - [id number] Implanted:Qty : 1 on 11/20/2019 by Amber Jain MD at OR [facility] Right: Mouth [employer] 10/21/2021 [id number] / / [id number] Implant Silastic 7 Silicone Sw - [id number] Implanted:Qty : 1 on 05/28/2020 by Farhat Pate MD at OR [facility] Right: Throat Deed [id number] / / documented as of this [...] * PT INR (11/24/2023 9:57 AM EST) Prothrombin Time 14.2 11.6 - 15.2 seconds 11/24/2023 10:17 AM EST [facility] 56-02 INR 1.1 0.8 - 1.2 11/24/2023 10:17 AM EST [facility] 56-02 Blood Venous blood specimen / Unknown Venipuncture / Unknown 11/24/2023 9:57 AM EST 11/24/2023 9:57 AM EST Narrative [facility] 56-02 - 11/24/2023 10:17 AM EST Warfarin Therapy INR: 2.0-3.0 conventional anticoagulation INR: 2.5-3.5 high intensity anticoagulation Nilton Senior MD LAB BLOOD ORDERABLES [facility] 56-[address] [place] [address] * (ABNORMAL) DIFFERENTIAL, TECHNOLOGIST REVIEW (11/23/2023 2:08 PM EST) WBC 15.67(H) 4.00 - 10.80 K/uL 11/23/2023 2:46 PM EST LABORATORY [facility]3] Neutrophils % 3.0(L) 40.0 - 75.0 % 11/23/2023 2:46 PM EST LABORATORY [facility]3] Lymphocytes % 80.0(H) 18.0 - 42.0 % 11/23/2023 2:46 PM EST LAB[facility]ATORY [facility]3] Monocytes % 2.0 1.0 - 11.0 % 11/23/2023 2:46 PM EST LAB[facility]ORY [facility]3] Eosinophils % 2.0 0.0 - 6.0 % 11/23/2023 2:46 PM EST LAB[facility]ATORY [facility]3] Blasts % 13.0(H) <=0.0 % 11/23/2023 2:46 PM EST LAB[facility]ATORY [facility]3] Absolute Neutrophils 0.47(L) 1.80 - 7.70 K/uL 11/23/2023 2:46 PM EST LAB[facility]ATORY [facility]3] Absolute Lymphocytes 12.54(H) 1.00 - 4.80 K/uL 11/23/2023 2:46 PM EST LAB[facility]ATORY [facility]3] Absolute Monocytes 0.31 0.00 - 1.10 K/uL 11/23/2023 2:46 PM EST LAB[facility]ATORY [facility]3] Absolute Eosinophils 0.31 0.00 - 0.70 K/uL 11/23/2023 2:46 PM EST LAB[facility]ATORY [facility]3] Absolute Blasts 2.04(H) <=0.00 K/uL 11/23/2023 2:46 PM EST LAB[facility]ATORY [facility]3] Reactive Lymphocytes Present(A ) None Seen 11/23/2023 2:46 PM EST LAB[facility]ATORY [facility]3] Blood Venous blood specimen / Unknown Venipuncture / Unknown 11/23/2023 2:08 PM EST 11/23/2023 2:09 PM EST Nilton Senior MD LAB BLOOD ORDERABLES LABORATORY [facility]3] [address] [place] [address] * DIFFERENTIAL, AUTOMATED (11/23/2023 2:08 PM EST) Blood Venous blood specimen / Unknown Venipuncture / Unknown 11/23/2023 2:08 PM EST 11/23/2023 2:09 PM EST Nilton Senior MD LAB BLOOD ORDERABLES LABORATORY [facility]3] [address] [place] [address] * (ABNORMAL) CBC (11/23/2023 2:08 PM EST) WBC 15.67(H) 4.00 - 10.80 K/uL 11/23/2023 2:15 PM EST LAB[facility]ATORY [facility]3] RBC 4.27 3.85 - 5.15 M/uL 11/23/2023 2:15 PM EST LAB[facility]ORY [facility]3] HGB 12.1 12.0 - 15.3 g/dL 11/23/2023 2:15 PM EST LAB[facility]ORY [facility]3] HCT 36.3 36.0 - 45.2 % 11/23/2023 2:15 PM EST LAB[facility]ORY [facility]3] MCV 85.0 81.5 - 97.5 fL 11/23/2023 2:15 PM EST LAB[facility]ORY [facility]3] MCH 28.3 27.0 - 34.0 pg 11/23/2023 2:15 PM EST LAB[facility]ATORY [facility]3] MCHC 33.3 32.0 - 36.0 g/dL 11/23/2023 2:15 PM EST LAB[facility]ORY [facility]3] RDW 19.7 11.5 - 15.5 % 11/23/2023 2:15 PM EST LAB[facility]ATORY [facility]3] PLT 123(L) 140 - 400 K/uL 11/23/2023 2:15 PM EST LAB[facility]ORY [facility]3] MPV 8.7 6.6 - 11.1 fL 11/23/2023 2:15 PM EST LAB[facility]ORY [facility]3] nRBCs 1(H) <=0 /100 WBCs 11/23/2023 2:15 PM EST LAB[facility]ATORY [facility]3] Blood Venous blood specimen / Unknown Venipuncture / Unknown 11/23/2023 2:08 PM EST 11/23/2023 2:09 PM EST Nilton Senior MD LAB BLOOD ORDERABLES LABORATORY [facility]3] [address] [place] [address] * (ABNORMAL) LD (11/23/2023 2:08 PM EST) LD 506(H) <=250 U/L 11/23/2023 2:47 PM EST LABORATORY [facility] Comment:Result may be falsel y elevated due to hemolysis. Blood Venous blood specimen / Unknown Venipuncture / Unknown 11/23/2023 2:08 PM EST 11/23/2023 2:15 PM EST Nilton Senior MD LAB BLOOD ORDERABLES Performing Organization Address [facility]/ZIP Co de Phone Number LABORATORY [facility] [address] [place] [address] * PHOSPHORUS (11/23/2023 2:08 PM EST) Phosphorus 4.3 2.5 - 4.8 mg/dL 11/23/2023 2:47 PM EST LABORATORY [facility] Blood Venous blood specimen / Unknown Venipuncture / Unknown 11/23/2023 2:08 PM EST 11/23/2023 2:15 PM EST Nilton Senior MD LAB BLOOD ORDERABLES Performing Organization Address City/[facility] Co de Phone Number LABORATORY [facility] [address] [place] [address] * (ABNORMAL) URIC ACID (11/23/2023 2:08 PM EST) Uric Acid 7.0(H) 2.4 - 5.7 mg/dL 11/23/2023 2:47 PM EST LABORATORY [facility] Blood Venous blood specimen / Unknown Venipuncture / Unknown 11/23/2023 2:08 PM EST 11/23/2023 2:15 PM EST Nilton Senior MD LAB BLOOD ORDERABLES [facility] [address] [place] [address] * (ABNORMAL) COMPREHENSIVE METABOLIC PANEL (11/23/2023 2:08 [...] LAB BLOOD ORDERABLES [facility] [address] [place] [address] documented in this encounter Visit Diagnoses Diagnosis [...] and were consensually agreed upon. Care Teams Cloud Engagement Partner Relationship Specialty Start Date End Date Ivonne French PA-C [address] [place] [address] PCP - General Physician Director Medical Science 07/24/21 documented as of this encounter
--- OUTSIDE RECORDS SUMMARY | 2024-01-29 21:38 | External Medical Summary ---
Author Name Unknown Address Unknown Organization K01:LABORATORY [facility] - [address] [place] [address] Laboratory Report Ordering Provider Test Date Status RAMIN HACKETT 11/23/2023 14:08:05 Final Observation Date Value Abnormality Reference (Units ) Status Uric Acid 11/23/2023 14:08:05 7.0 Above high normal 2. 4-5.7 (mg/dL) Final Performing Location LABORATORY C - [address] [place] [address]
--- OUTSIDE RECORDS SUMMARY | 2024-01-29 21:38 | External Medical Summary ---
Author Name Unknown Address Unknown Organization K09:LABORATORY [place] [address] Laboratory Report Ordering Provider Test Date Status RAMIN HACKETT 11/24/2023 09:57:16 Final Observation Date Value Abnormality Reference (Units ) Status WBC, Total 11/24/2023 09:57:16 13.06 Above high normal 4 .00-10.80 (K/uL) Final RBC 11/24/2023 09:57:16 4.15 3.85-5.15 (M/uL) Final Hemoglobin 11/24/2023 09:57:16 11.7 Below low normal 12 .0-15.3 (g/dL) Final HCT 11/24/2023 09:57:16 36.0 36.0-45.2 (%) Final MCV 11/24/2023 09:57:16 86.7 81.5-97.5 (fL) Final MCH 11/24/2023 09:57:16 28.2 27.0-34.0 (pg) Final MCHC 11/24/2023 09:57:16 32.5 32.0-36.0 (g/dL) Final RDW 11/24/2023 09:57:16 20.2 11.5-15.5 (%) Final Platelets 11/24/2023 09:57:16 94 Below low normal 140 -400 (K/uL) Final MPV 11/24/2023 09:57:16 8.6 6.6-11.1 ( fL) Final Performing Location [facility] [place] [address]
--- OUTSIDE RECORDS SUMMARY | 2024-01-29 21:39 | External Medical Summary | Summary of Care ---
Author Name Unknown Organization [facility] Address [address] [place] [facility] [place] [place] [address] Phone [phone] Care Team Providers Care Upset Welding Machine Operator Name Role Phone Ivonne French PA-C Primary Care Provider [phone] Reason for Referral * Evaluate & Treat - Unlimited Visits (Within 3 days (urgent)) - Authorized Specialty Diagnoses / Procedures Referred By Contac t Referred To Contact Hematology/Oncology / Hematology Oncology Diagnoses Acute myeloid leukemia not having achieved remission (HCC) Shon Rice MD [address] [facility] [place] [address] Referral ID Status Reason Start Date Expiration Date Visits Requested Visits Authorized [id number] Authorized Specialty Services Required 11/22/2023 999 999 Question Answer Referral Priority Within 3 days (urgent) Where should this appointment be scheduled? ising Reason for Referral Malignant Hematology (Blood Cancer) Comments 58-year-old female, who presented with new onset of neutropenia, bone marrow examination suggest acute myeloid leukemia, NGS checkup negative for known mutations, TP53 positive. Would like to hematology evaluation. Thanks. Dr. Shon Rice Hem/Onc Encounter Details Date Type Department Care Team (Late st Contact Info) Description 11/22/2023 Orders Only Hematology/Oncology [facility] [address] [place] [address] Shon Rice MD [address] [facility] [place] [id number] Acute myeloid leukemia not having achieved remission [...] hemoglobin A1c goal of 7.0%-8.0% ([facility]) TAKE ONE TABLET BY MOUTH TWICE A DAY WITH MORNING AND EVENING MEALS 180 Tablet 1 05/25/2023 Active emotion.meTouch Delica Lancets 33G Use to test blood sugar three times daily E 11.9 300 Each 05/25/2023 Active emotion.meTouch Verio w/Device Kit Use up to 3 times a day E11.9 1 Kit 0 05/25/2023 Active Pen [place] 32G X 4 MM Use as directed. 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 NGS checkup--> Negative for known mutations, FLT3 negative, IDH mutation negative. TP53 mutationdetected. Would like to have hematology evaluation at [facility] soon. documented in this encounter Plan of Treatment Upcoming Encounters Date Type Department Care Team (Late st Contact Info) Description 12/16/2023 11:20 AM EST Office Visit [facility] [address] [facility] [phone] Ivonne French PA-C [address] [facility] [address] 12/16/2023 1:45 PM EST Office Visit Hematology/Oncology [facility] [place] [address] [place] [address] Shon Rice MD [address] [facility] [place] [address] 12/23/2023 1:00 PM EST Office Visit Neurology, [place] [address] [place] [address] Oralia Glass MD [address] [place] [address] 12/29/2023 8:10 AM EST Pharmacy Pharmacy, [facility] [address] [facility] [place] [address] [facility] [address] [facility] [place] [address] 01/07/2024 10:00 AM EST Office Visit [facility] [address] [place] [phone] Ivonne French PA-C [address] [place] [address] 01/31/2024 9:00 AM EDT Imaging Radiology [address] [facility] [place] [address] 02/10/2024 11:40 AM EDT Office Visit [facility] [address] [place] [phone] Ivonne French PA-C [address] [place] [address] 05/10/2024 8:15 AM EDT Office Visit Ophthalmology, [place] [address] [place] [address] Migel Ramires [place] [address] Scheduled Procedures Name Priority Associated Diagnoses Date/Ti me COLONOSCOPY FLEXIBLE PROXIMAL DIAGNOSTIC Recall History of colon polyps Scheduled Referrals Name Type Priority Associated Diagnoses Orde r Schedule HEMATOLOGY/ONCOLOGY REFERRAL OP Referral Within 3 days (urgent) Acute myeloid leukemia not having achieved remission (HCC) Ordered: 11/22/2023 Health Maintenance Due Date Last Done Comments [...] this encounter Medical Devices Implanted Type Area Covered Buckle Assembler Device Identifier Shelf Expiration Date Model / Serial / Lot Lens Intraoc 21.0 - [id number] - [id number] Implanted:Qty : 1 on 07/06/2017 by Luis Eduardo Cole MD at OR [facility] Left: Eye BAUSCH [employer] LOMB 01/05/2022 [id number] / [id number] / Lens Intraoc 21.0 - [id number] - [id number] Implanted:Qty : 1 on 07/20/2017 by Luis Eduardo Cole MD at OR [facility] Right: Eye BAUSCH & LOMB 01/05/2022 [id number] / [id number] / Syringe Prolaryn Del 1.0cc - [id number] Implanted:Qty : 1 on 11/20/2019 by Amber Jain MD [place] [facility] [place]: Mouth [employer] 10/21/2021 [id number] / / [id number] Implant Silastic 7 Silicone Sw - [id number] Implanted:Qty : 1 on 05/28/2020 by Farhat Pate MD [place] [facility] [place] Right: Throat Site[employer]cell [employer] [id number] / / documented as of this [...] and were consensually agreed upon. Care Teams Upset Welding Machine Operator Relationship Specialty Start Date End Date Ivonne French PA-C [address] [place] [address] PCP - General Physician Oil Well Driller 07/24/21 documented as of this encounter
--- OUTSIDE RECORDS SUMMARY | 2024-01-29 21:39 | External Medical Summary ---
Author Name Unknown Address Unknown Organization K01:LABORATORY [facility] [place] - [address] [place] [address] Laboratory Report Ordering Provider Test Date Status BRENNAN JOSEPH 11/17/2023 09:00:00 Final Bone marrow from right poste rior superior iliac crest Observation Date Value Abnormality Reference (Units ) Status BONE MARROW FOR FLOW CYTOMETRY 11/17/2023 09:00:00 Yes Final Performing Location [facility] - [address] [place] [address]
--- OUTSIDE RECORDS SUMMARY | 2024-01-29 21:39 | External Medical Summary ---
Author Name Unknown Address Unknown Organization K01:[place] [facility] [place] [address] [place] [address] Laboratory Report Ordering Provider Test Date Status BRENNAN JOSEPH 11/17/2023 09:00:00 Final Bone marrow from right poste rior superior iliac crest Observation Date Value Abnormality Reference (Units ) Status REFERENCE LAB SCANNED REPORT 11/17/2023 09:00:00 See Scanned Report Final Performing Location LABORATORY [facility] - [address] [place] [address]
--- OUTSIDE RECORDS SUMMARY | 2024-01-29 21:39 | External Medical Summary ---
Author Name Unknown Address Unknown Organization : Laboratory Report Ordering Provider Test Date Status BRENNAN JOSEPH 11/17/2023 09:00:00 Final Bone marrow from right poste rior superior iliac crest Observation Date Value Abnormality Reference (Units) Status BONE MARROW COLLECTION 11/17/2023 09:00:00 Sent to [facility] Final Performing Location
--- OUTSIDE RECORDS SUMMARY | 2024-01-29 21:39 | External Medical Summary | Summary of Care ---
Author Name Unknown Organization [facility] Address [address] [facility] [address] Phone [phone] Care Team Providers Care Drapery Estimator Name Role Phone Ivonne French PA-C Primary Care Provider [phone] Reason for Visit * Reason Comments Outpatient Testing Encounter Details Date Type Department Care Team (Late st Contact Info) Description 11/17/2023 9:30 AM EST Laboratory Laboratory [facility] [address] [place] [address] [facility] [address] [place] [address] Arrived Allergies Active Allergy Reactions Criticality Noted Date Comments Adhesive Tape 04/21/2016 Glue off the old style medical tape. documented as of this encounter (statuses as of 11/17/2023) Medications Medication Sig Dispensed Refills Start Date [...] mellitus with hemoglobin A1c goal of 7.0%-8.0% ([facility]) TAKE ONE TABLET BY MOUTH TWICE A DAY WITH MORNING AND EVENING MEALS 180 Tablet 1 05/25/2023 Active [employer] Delica Lancets 33G Use to test blood sugar three times daily E 11.9 300 Each 05/25/2023 Active ConzoomTouch Verio w/Device Kit Use up to 3 times a day E11.9 1 Kit 0 05/25/2023 Active Pen Correll 32G X 4 MM Use as directed. [...] Additional Information Patient not taking.Reported on 11/12/2023 [employer] Verio In Vitro Strip (Glucose Blood) Use up to 3 times a day E11.9 100 Strip 11 07/16/2023 Active Levothyroxine Sodium 150 MCG Oral Tablet [...] week. 6 mL 1 09/09/2023 09/08/2024 Active Insulin Glargine Solostar 100 UNIT/ML Subcutaneous Solution Pen-injector (Lantus SoloStar) Inject 35 Units under the skin at bedtime. 45 mL 3 09/17/2023 Active Insulin Lispro (1 Unit Dial) 100 UNIT/ML Subcutaneous Solution Pen-injector (HumaLOG KwikPen) Inject 20 Units under the skin in the morning and 20 Units at noon and 20 Units in the evening. Inject with meals. 15 mL 0 10/12/2023 Active Linzess 72 MCG Oral Capsule (linaCLOtide)Indic ations:Drug-induce d constipation Take 1 Capsule by mouth daily before breakfast. 90 Capsule 1 10/14/2023 Active Metoprolol Succinate ER 25 MG Oral Tablet Extended Release 24 Hour (toPROL XL)Indications:Cor onary artery disease involving knik coronary artery of knik heart without angina pectoris Take 1.5 Tablets [...] mouth daily. 90 Tablet 3 11/16/2023 Active documented as of this encounter (statuses as of 11/17/2023) Active Problems Problem Noted Date Diagnosed Date [...] as of this encounter (statuses as of 11/17/2023) Resolved Problems Problem Noted Date Diagnosed Date [...] as of this encounter (statuses as of 11/17/2023) Immunizations Name Administration Dates Next Due COVID-19 [...] Care Team (Late st Contact Info) Description 11/19/2023 8:00 AM EST Office Visit Pharmacy, [facility] [address] [employer] [address] [place] [address] [facility] [address] [facility] [place] [address] 12/16/2023 11:20 AM EST Office Visit [facility] [place] [address] [facility] [phone] Ivonne French PA-C [address] [facility] [address] 12/16/2023 1:45 PM EST Office Visit Hematology/Oncology [facility] [address] [facility] [place] [address] Shon Rice MD [address] [facility] [place] [address] 12/23/2023 1:00 PM EST Office Visit Neurology, [place] [address] [place] [phone] Oralia Glass MD [address] [place], [place] [phone] 01/07/2024 10:00 AM EST Office Visit Family [facility], [place] [address] [facility] [phone] Ivonne French PA-C [address] [facility] [place] [address] 01/31/2024 9:00 AM EDT Imaging Radiology [facility] [address] [address] [place] [address] 02/10/2024 11:40 AM EDT Office Visit Family [facility], [place] [address] [facility] [phone] Ivonne French PA-C [address] [place] [address] 05/10/2024 8:15 AM EDT Office Visit Ophthalmology, [place] [address] [place] [address] Migel Ramires MD [address] [place] [address] Scheduled Procedures Name Priority Associated Diagnoses Date/Ti [...] encounter Medical Devices Implanted Type Area Bulk Fluids Handler Device Identifier Shelf Expiration Date Model / Serial / Lot Lens Intraoc 21.0 - [id number] - [id number] Implanted:Qty : 1 on 07/06/2017 by Luis Eduardo Cole MD at [facility] Left: Eye [employer]OM[employer] 01/05/2022 [id number] / [id number] / Lens Intraoc 21.0 - [id number] - [id number] Implanted:Qty : 1 on 07/20/2017 by Luis Eduardo Cole MD at OR [facility] Right: Eye [employer] 01/05/2022 [id number] / [id number] / Syringe Prolaryn Del 1.0cc - [id number] Implanted:Qty : 1 on 11/20/2019 by Amber Jain [place] [facility] [place] Mouth [employer] 10/21/2021 [id number] / / [id number] Implant Silastic 7 Silicone Sw - [id number] Implanted:Qty : 1 on 05/28/2020 by Farhat Pate MD [place] [facility] [place]: Throat [employer] [id number] / / documented as of this [...] and were consensually agreed upon. Care Teams Drapery Estimator Relationship Specialty Start Date End Date Ivonne French PA-C [address] [facility] [place] [address] PCP - General Physician Transit Operator 07/24/21 documented as of this encounter
--- OUTSIDE RECORDS SUMMARY | 2024-01-29 21:39 | External Medical Summary ---
Author Name Unknown Address Unknown Organization K01:LABORATORY [facility] - [address] [place] [address] [place] [address] Laboratory Report Ordering Provider Test Date Status BRENNAN JOSEPH 11/17/2023 09:39:23 Final Observation Date Value Abnormality Reference (Units ) Status Hep B surface Ag 11/17/2023 09:39:23 Negative Neg ative Final Performing Location [facility] - [address] [place] [address]
--- OUTSIDE RECORDS SUMMARY | 2024-01-29 21:39 | External Medical Summary ---
Author Name Unknown Address Unknown Organization K01:LABORATORY [place] [address] [address] [facility] [address] [place] [address] Laboratory Report Ordering Provider Test Date Status BRENNAN JOSEPH 11/17/2023 09:39:23 Final Observation Date Value Abnormality Reference (Units) Status Hepatitis B virus surface Ab [Units/volume] in Serum or Plasma by Immunoassay 11/17/2023 09:39:23 327.0 (mIU/mL) Final Hepatitis B virus surface Ab [Presence] in Serum by Immunoassay 11/17/2023 09:39:23 Positive Final HEPATITIS B SURFACE ANTIBODY, INTERPRETATION 11/17/2023 09:39:23 Immune to Hepatitis B Virus Final POSITIVE: >=11.5 mIU/mL
INDETERMINATE: 8.5-<11.5 mIU/mL
NEGATIVE: <8.5 mIU/mL Performing Location LABORATORY [place] [address] [place] [address]
--- OUTSIDE RECORDS SUMMARY | 2024-01-29 21:39 | External Medical Summary ---
Author Name Unknown Address Unknown Organization K01:LABORATORY [facility] [place] - [address] [place] [address] Laboratory Report Ordering Provider Test Date Status BRENNAN JOSEPH 11/17/2023 09:00:00 Final Bone marrow from right poste rior superior iliac crest Observation Date Value Abnormality Reference (Units ) Status REFERENCE LAB SCANNED REPORT 11/17/2023 09:00:00 See Scanned Report Final Performing Location [facility] - [address] [place] [address]
--- OUTSIDE RECORDS SUMMARY | 2024-01-29 21:39 | External Medical Summary ---
Author Name Unknown Address Unknown Organization K01:LABORATORY [facility] [place] - [address] [place] [address] Laboratory Report Ordering Provider Test Date Status BRENNAN JOSEPH 11/17/2023 09:39:23 Final Observation Date Value Abnormality Reference (Units ) Status Hepatitis B virus core Ab [Presence] in Serum 11/17/2023 09:39:23 Negative Negative Final Performing Location LABORATORY [facility] [place] - [address] [place] [address]
--- OUTSIDE RECORDS SUMMARY | 2024-01-29 21:39 | External Medical Summary ---
Author Name Unknown Address Unknown Organization K01:[facility]ORY [facility] [place] [address] [place] [address] Laboratory Report Ordering Provider Test Date Status MICKI JOSEPHEL 11/17/2023 09:39:23 Final Observation Date Value Abnormality Reference (Units ) Status Uric Acid 11/17/2023 09:39:23 6.2 Above high normal 2. 4-5.7 (mg/dL) Final Performing Location LABORATORY [facility] - [address] [place] [address]
--- OUTSIDE RECORDS SUMMARY | 2024-01-29 21:39 | External Medical Summary ---
Author Name Unknown Address Unknown Organization K01:[facility] - [address] [facility] [place] [address] Laboratory Report Ordering Provider Test Date Status BRENNAN JOSEPH 11/17/2023 09:39:23 Final Observation Date Value Abnormality Reference (Units ) Status SYNC LEUKOCYTES IN BLOOD BY AUTOMATED COUNT 11/17/2023 09:39:23 9.25 4.00-10.80 (K/uL) Final Neutrophils/100 leukocytes in Blood by Manual count 11/17/2023 09:39:23 4.0 Below low normal 40.0-75.0 (%) Final Lymphocytes/100 leukocytes in Blood by Manual count 11/17/2023 09:39:23 76.0 Above high normal 18.0-42.0 (%) Final Monocytes/100 leukocytes in Blood by Manual count 11/17/2023 09:39:23 1.0 1.0-11.0 (%) Final Blasts/100 leukocytes in Blood by Manual count 11/17/2023 09:39:23 19.0 Above high normal <=0.0 (%) Final Neutrophils [#/volume] in Blood by Manual count 11/17/2023 09:39:23 0.37 Below low normal 1.80-7.70 (K/uL) Final Lymphocytes [#/volume] in Blood by Manual count 11/17/2023 09:39:23 7.03 Above high normal 1.00-4.80 (K/uL) Final Monocytes [#/volume] in Blood by Manual count 11/17/2023 09:39:23 0.09 0.00-1.10 (K/uL) Final Blasts [#/volume] in Blood by Manual count 11/17/2023 09:39:23 1.76 Above high normal <=0.00 (K/uL) Final Variant lymphocytes [Presence] in Blood by Light microscopy 11/17/2023 09:39:23 Present Abnormal None Seen Final Smudge cells [Presence] in Blood by Light microscopy 11/17/2023 09:39:23 Present Abnormal None Seen Final Performing Location [place] [facility] [place] [address] [place] [address]
--- OUTSIDE RECORDS SUMMARY | 2024-01-29 21:39 | External Medical Summary ---
Author Name Unknown Address Unknown Organization K01:[facility] [place] [facility] [address] [facility] [address] [facility] [address] Laboratory Report Ordering Provider Test Date Status BRENNAN JOSEPH 11/17/2023 09:39:23 Final Observation Date Value Abnormality Reference (Units ) Status WBC, Total 11/17/2023 09:39:23 9.25 4.00-10.80 (K/uL) Final RBC 11/17/2023 09:39:23 4.49 3.85-5.15 (M/uL) Final Hemoglobin 11/17/2023 09:39:23 12.6 12.0-15.3 (g/dL) Final HCT 11/17/2023 09:39:23 39.7 36.0-45.2 (%) Final MCV 11/17/2023 09:39:23 88.4 81.5-97.5 (fL) Final MCH 11/17/2023 09:39:23 28.1 27.0-34.0 (pg) Final MCHC 11/17/2023 09:39:23 31.7 32.0-36.0 (g/dL) Final RDW 11/17/2023 09:39:23 18.8 11.5-15.5 (%) Final Platelets 11/17/2023 09:39:23 134 Below low normal 140-400 (K/uL) Final MPV 11/17/2023 09:39:23 9.2 6.6-11.1 (fL) Final Nucleated erythrocytes/100 leukocytes [Ratio] in Blood by Automated count 11/17/2023 09:39:23 1 Above high normal <=0 (/100 WBCs) Final Performing Location LABORATORY [facility] [place] [address] [place] [address]
--- OUTSIDE RECORDS SUMMARY | 2024-01-29 21:39 | External Medical Summary ---
Author Name Unknown Address Unknown Organization K01:[facility]ORY [facility] - [address] [place] [address] Laboratory Report Ordering Provider Test Date Status BRENNAN JOSEPH 11/17/2023 09:39:23 Final Observation Date Value Abnormality Reference (Units ) Status LDH 11/17/2023 09:39:23 437 Above high normal <= 250 (U/L) Final Performing Location [facility] - [address] [place] [address]
--- OUTSIDE RECORDS SUMMARY | 2024-01-29 21:39 | External Medical Summary | Summary of Care ---
Author Name Unknown Organization [facility] Address [address] [facility] [place] [address] Phone [phone] Care Team Providers Care New Car Sales Manager Name Role Phone Ivonne French PA-C Primary Care Provider [phone] Reason for Visit * Reason Comments Dosage Adjustment In Person (Anticoag Cl inic) Diabetes Follow-Up Encounter Details Date Type Department Care Team (Late st Contact Info) Description 11/19/2023 8:00 AM EST Office Visit Pharmacy, [facility] [address] [facility] [place] [address] [facility] [address] [facility] [place] [address] Type 2 diabetes mellitus with hemoglobin A1c goal of 7.0%-8.0% ([facility])* Allergies Active Allergy Reactions Criticality Noted Date Comments Adhesive Tape 04/21/2016 Glue off the old style medical tape. documented as of this encounter (statuses as of 11/19/2023) Medications Medication Sig Dispensed Refills Start Date End Date Status Aspirin 81 MG Tablet Take 1 Tablet by mouth in the morning. 0 Active DULoxetine HCl 60 MG Oral Capsule Delayed Release Particles (Cymbalta) Take 1 Capsule by mouth in the morning. 180 Capsule 0 11/24/2022 Active Lactulose 10 GM/15ML Oral Solution (Constulose)Indic ations:Constipati [...] Active metFORMIN HCl 1000 MG Oral Tablet (Glucophage)Indic ations:Type 2 diabetes mellitus with hemoglobin A1c goal of 7.0%-8.0% (HCC) TAKE ONE TABLET BY MOUTH TWICE A DAY WITH MORNING AND EVENING MEALS 180 Tablet 1 05/25/2023 Active PortfoliaTouch Delica Lancets 33G Use to test blood sugar three times daily E 11.9 300 Each 5 05/25/2023 Active PortfoliaTouch Verio w/Device Kit Use up to 3 times a day E11.9 1 Kit 0 05/25/2023 Active Pen [place] 32G X 4 MM Use as directed. Use to inject insulin 4 times daily 100 Each 5 05/25/2023 Active Triamcinolone Acetonide 0.1 % External Ointment (Aristocort)Indic ations:Contact dermatitis, unspecified contact dermatitis type, unspecified trigger Apply topically to affected area 2 times a day. Apply to hands and feet 80 g 2 05/25/2023 Active Furosemide 20 MG Oral Tablet (Lasix)Indication s:Edema, [...] 09/09/2023 Active Linzess 72 MCG Oral Capsule (linaCLOtide)Lety cations:Drug-marian isael constipation Take 1 Capsule by mouth daily before breakfast. 90 Capsule 1 10/14/2023 Active Metoprolol Succinate ER 25 MG Oral Tablet Extended Release 24 Hour (toPROL XL)Indications:Co ronary artery disease involving [place] coronary artery of [place] heart without angina pectoris Take 1.5 Tablets by mouth in the morning. 135 Tablet 1 10/14/2023 Active Omeprazole 20 MG Oral Capsule Delayed Release (PriLOSEC) Take 1 Capsule by mouth in the morning and 1 Capsule before bedtime. 180 Capsule 1 10/14/2023 Active amLODIPine Besylate 2.5 MG Oral Tablet (Norvasc)Indicati [...] with meals. 60 mL 3 11/19/2023 Active OneTouch Verio In Vitro Strip (Glucose Blood) Use up to 3 times a day E11.9 100 Strip 11 07/16/2023 4 Discontinue d(Refill) Insulin Glargine Solostar 100 UNIT/ML Subcutaneous Solution Pen-injector (Lantus SoloStar) Inject 35 Units under the skin at bedtime. 45 mL 3 09/17/2023 4 Discontinue d(Refill) Insulin Lispro (1 Unit Dial) 100 UNIT/ML Subcutaneous Solution Pen-injector (HumaLOG KwikPen) Inject 20 Units under the skin in the morning and 20 Units at noon and 20 Units in the evening. Inject with meals. 15 mL 0 10/12/2023 4 Discontinue d(Refill) documented as of this encounter (statuses as of 11/19/2023) Active Problems Problem Noted Date Diagnosed Date [...] as of this encounter (statuses as of 11/19/2023) Resolved Problems Problem Noted Date Diagnosed Date [...] as of this encounter (statuses as of 11/19/2023) Immunizations Name Administration Dates Next Due COVID-19 [...] encounter Progress Notes * Mary Grace Farmer, [facility] - 11/19/2023 7:59 AM EST Medication Therapy Disease Management [facility] - Diabetes Management Progress Note Juany Resendez, identified by name and date of , is a 58 year old female being seen for diabetes management/education. Patient presents for return diabetic visit. DIABETES: Current diabetic medications: Mounjaro 10 mg weekly Metformin 1000 mg BID INCREASE: Lantus 35 units HS Novolog 20 units TID with meals Medication Injection Site: Abdomen Lifestyle: Diet: unchanged Glucose Review/SMBG: Readings obtained from patient device Pre am Post am Pre Lunch Post Lunch Pre pm Post pm HS 3am 259 267 423 325 230 208 228 269 234 230 248 204 242 232 180 211 189 180 194 218 162 208 294 225 275 217 231 232 279 Average 231 #DIV/0! 220 #DIV/0! 263 #DIV/0! 238 #DIV/0! Hi 269 0 275 0 423 0 325 0 Lo 180 0 180 0 [address] [phone] 0 [phone] 0 245.6 0 228 0 Range 89 0 95 0 234 0 163 0 Hypoglycemia: Does your blood sugar go below 70 mg/dL? No Hyperglycemia symptoms present: none Recent Labs Units 11/09/23 1517 06/15/23 1006 04/27/23 0944 HEMOGLOBIN A1C - [facility] % 10.7* 8.8* 9.9* Recent Labs Units 11/17/23 0939 11/09/23 1517 06/15/23 1006 ESTIMATED GLOMERULAR FILTRATION RATE - [facility] mL/min 60 64 65 CREATININE - [facility] mg/dL 1.1* 1.0 1.0 HYPERTENSION: Patient on ACEi/ARB: no, not indicated BP Readings from Last 3 Encounters: 11/17/23 121/73 11/12/23 124/66 11/09/23 122/62 Blood pressure at goal: yes HYPERLIPIDEMIA: Patient is taking moderate or high intensity statin: yes HEALTH MAINTENANCE REVIEW: Health Maintenance Due Topic Date Due Pneumococcal Vaccine: Pediatrics (0 to 5 Years) and At-Risk Patients (6 to 64 Years) (2 - PCV) 12/20/2007 Hepatitis B (3 of 3 - Risk 3-dose series) 08/20/2017 Depression, Most Recent Score >= 10 (will fire each visit until score < 10) 12/26/2022 Influenza Vaccine (FLU shot) (1) Never done COVID-19 Vaccine (3 - season) 2023 Diabetic Foot Exam 11/24/2023 ASSESSMENT & PLAN: BG Readings - Blood sugars uncontrolled. Patient's A1c is now 10.7%. Medications - Reviewed current regimen, patient is adherent to regimen. Will increase both lantus and novolog. Diet, Exercise, Lifestyle - No significant lifestyle changes since last visit. Discussed with patient, patient awaiting results of bone marrow biopsy. Patient is agreeable to SMBG 3-4 time(s) daily. Patient aware to contact clinic if any hypoglycemia before next visit. MEDICATION CHANGES: yes, see below; preferred pharmacy: [facility] Medications: Mounjaro 10 mg weekly Metformin 1000 mg BID INCREASE: Lantus 45 units HS INCREASE: Novolog 24 units TID with meals HEALTH MAINTENANCE INTERVENTIONS: Labs: Up to Date Immunizations: Up to Date Foot Exam: Up to Date Eye Exam: Up to Date Annual Wellness Visit: Up to Date FOLLOW UP: Return to clinic in 5 weeks 12/29/2023 Mary Grace Farmer RPh Clinical Pharmacist - Engagement Mgr Medication Therapy Management Clinic 11/19/2023, 8:00 AM documented in this encounter Plan of Treatment Upcoming Encounters Date Type Department Care Team (Late st Contact Info) Description 12/16/2023 11:20 AM EST Office Visit [facility] [place] [address] [facility] [place] [phone] Ivonne French PA-C [address] [facility] [place] [address] 12/16/2023 1:45 PM EST Office Visit Hematology/Oncology [facility] [address] [facility] [place] [address] Shon Rice MD [address] [facility] [place] [address] 12/23/2023 1:00 PM EST Office Visit Neurology, [place] [address] [place] [phone] Oralia Glass MD [address] [place] [address] 12/29/2023 8:10 AM EST Pharmacy Pharmacy, [facility] [address] [facility] [address] [facility] [place] [address] 01/07/2024 10:00 AM EST Office Visit [facility] [place] [address] [facility] [place] [phone] Ivonne French PA-C [address] [facility] [address] 01/31/2024 9:00 AM EDT Imaging Radiology [address] [facility] [place] [address] 02/10/2024 11:40 AM EDT Office Visit [facility] [place] [address] [place] [facility] [place] [phone] Ivonne French PA-C [address] [place] [address] 05/10/2024 8:15 AM EDT Office Visit Ophthalmology, [place] [address] [place] [address] Migel Ramires MD [address] [place] [address] Scheduled Procedures Name Priority Associated Diagnoses Date/Ti [...] this encounter Medical Devices Implanted Type Area Embossing Clerk Device Identifier Shelf Expiration Date Model / Serial / Lot Lens Intraoc 21.0 - [id number] - [id number] Implanted:Qty : 1 on 07/06/2017 by Luis Eduardo Cole MD at OR [facility] Left: Eye BAUSCH [employer] LOMB 01/05/2022 [id number] / [id number] / Lens Intraoc 21.0 - [id number] - [id number] Implanted:Qty : 1 on 07/20/2017 by Luis Eduardo Cole MD at OR [facility] Right: Eye BAUSCH [employer] LOMB 01/05/2022 [id number] / [id number] / Syringe Prolaryn Del 1.0cc - [id number] Implanted:Qty : 1 on 11/20/2019 by Amber Jain MD at OR [facility] Right: Mouth [employer] 10/21/2021 [id number] / / [id number] Implant Silastic 7 Silicone Sw - [id number] Implanted:Qty : 1 on 05/28/2020 by Farhat Pate MD at [facility] Right: Throat [place] [id number] / / documented as of this encounter Visit Diagnoses Diagnosis Type 2 diabetes mellitus with hemoglobin A1c goal of 7.0%-8.0% ([facility])- Primary documented in this encounter Advance Directives [...] and were consensually agreed upon. Care Teams New Car Sales Manager Relationship Specialty Start Date End Date Ivonne French PA-C [address] [place] [address] PCP - General Physician Silverlight Developer 07/24/21 documented as of this encounter
--- OUTSIDE RECORDS SUMMARY | 2024-01-29 21:39 | External Medical Summary ---
Author Name Unknown Address Unknown Organization K01:[facility] [place] [address] [place] [address] Laboratory Report Ordering Provider Test Date Status BRENNAN JOSEPH 11/17/2023 09:00:00 Final Bone marrow from right poste rior superior iliac crest Observation Date Value Abnormality Reference (Units ) Status REFERENCE LAB SCANNED REPORT 11/17/2023 09:00:00 See Scanned Report Final Performing Location [facility] - [address] [place] [address]
--- OUTSIDE RECORDS SUMMARY | 2024-01-29 21:39 | External Medical Summary | Summary of Care ---
Author Name Unknown Organization [facility] Address [address] [facility] [address] Phone [phone] Care Team Providers Care Clean Up Worker Name Role Phone Ivonne French PA-C Primary Care Provider [phone] Reason for Visit * Reason Comments Outpatient Testing Encounter Details Date Type Department Care Team (Late st Contact Info) Description 11/17/2023 9:30 AM EST Laboratory Laboratory [facility] [address] [place] [address] [facility] [address] [place] [address] Arrived Allergies Active Allergy Reactions Criticality Noted [...] with hemoglobin A1c goal of 7.0%-8.0% ([facility]) TAKE ONE TABLET BY MOUTH TWICE A DAY WITH MORNING AND EVENING MEALS 180 Tablet 1 05/25/2023 Active [facility] Delica Lancets 33G Use to test blood sugar three times daily E 11.9 300 Each 05/25/2023 Active SkySpecsTouch Verio w/Device Kit Use up to 3 times a day E11.9 1 Kit 0 05/25/2023 Active Pen Bergoo 32G X 4 MM Use as directed. [...] Additional Information Patient not taking.Reported on 11/12/2023 [facility] Verio In Vitro Strip (Glucose Blood) Use [...] Hour (toPROL XL)Indications:Cor onary artery disease involving [place] coronary artery of [place] heart without angina pectoris Take 1.5 Tablets [...] 11/19/2023 8:00 AM EST Office Visit Pharmacy, [facility] [address] [facility] [place] [address] [facility] [address] [facility] [place] [address] 12/16/2023 11:20 AM EST Office Visit [facility], [place] [address] [facility] [phone] Ivonne French PA-C [address] [facility] [address] 12/16/2023 1:45 PM EST Office Visit Hematology/Oncology [facility] [address] [facility] [place] [address] Shon Rice MD [address] [facility] [place] [address] 12/23/2023 1:00 PM EST Office Visit Neurology, [place] [address] [place] [phone] Oralia Glass MD [address] [place], [place] [phone] 01/07/2024 10:00 AM EST Office Visit Family [facility], [place] [address] [facility] [phone] Ivonne French PA-C [address] [facility] [place] [address] 01/31/2024 9:00 AM EDT Imaging Radiology [facility] [address] [facility] [place] [address] 02/10/2024 11:40 AM EDT Office Visit Family [facility], [place] [address] [facility] [phone] Ivonne French PA-C [address] [place] [address] 05/10/2024 8:15 AM EDT Office Visit Ophthalmology, [place] [address] [place] [address] Migel Ramires MD [address] [place] [address] Scheduled Procedures Name Priority Associated Diagnoses Date/Ti [...] 11/09/2023, 08/0 06/2023, 04/27/2023, Additional history exists GFR 11/09/2024 11/09/2023, 08/0 06/2023, 05/12/2023, Additional history exists Albumin/Creatinine Ratio 11/15/2024 024, 12/25/2022, 09/16/2022, Additional history exists PAP SMEAR-EVERY 3 YRS,AGES [...] this encounter Medical Devices Implanted Type Area Straightening Press Operator Device Identifier Shelf Expiration Date Model / Serial / Lot Lens Intraoc 21.0 - [id number] - [id number] Implanted:Qty : 1 on 07/06/2017 by Luis Eduardo Cole MD at OR [facility] Left: Eye BAUSCH [employer] LOMB 01/05/2022 [id number] / [id number] / Lens Intraoc 21.0 - [id number] - [id number] Implanted:Qty : 1 on 07/20/2017 by Luis Eduardo Cole MD at OR [facility] Right: Eye BAUSCH [employer]OMB 01/05/2022 [id number] / [id number] / Syringe Prolaryn Del 1.0cc - [id number] Implanted:Qty : 1 on 11/20/2019 by Amber Jain MD at OR [facility] Right: Mouth [employer] 10/21/2021 [id number] / / [id number] Implant Silastic 7 Silicone Sw - [id number] Implanted:Qty : 1 on 05/28/2020 by Farhat Pate MD at OR [facility] Right: Throat [place] [id number] / / documented as of this [...] and were consensually agreed upon. Care Teams Clean Up Worker Relationship Specialty Start Date End Date Ivonne French PA-C [address] [facility] [place] [address] PCP - General Physician Telephone Operator 07/24/21 documented as of this encounter
--- OUTSIDE RECORDS SUMMARY | 2024-01-29 21:39 | External Medical Summary | Summary of Care ---
Author Name Unknown Organization [facility] Address [address] [facility] [place] [address] Phone [phone] Care Team Providers Care Dirt Contractor Name Role Phone Ivonne French PA-C Primary Care Provider [phone] Reason for Visit * Reason Comments Procedure BONE MARROW BIOPSY Encounter Details Date Type Department Care Team (Late st Contact Info) Description 11/17/2023 8:45 AM EST Office Visit Hematology/Oncology [facility] [address] [facility] [place] [address] Shon Rice MD [address] 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 [...] Additional Information Patient not taking.Reported on 11/12/2023 Bluff WarsTouch Verio In Vitro Strip (Glucose Blood) Use [...] Hour (toPROL XL)Indications:Cor onary artery disease involving saxman coronary artery of saxman heart without angina pectoris Take 1.5 Tablets [...] Sign Reading Time Taken Comments Blood Pressure 121/73 11/17/2023 8:33 AM EST Pulse 85 11/17/2023 8:33 AM EST Temperature 36.6 C (97.8 F) 11/17/2023 8:33 AM ES T Respiratory Rate 16 11/17/2023 8:33 AM EST Oxygen Saturation 92% 11/17/2023 8:33 AM EST Inhaled Oxygen Concentration - - Weight 89.6 kg (197 lb 8 oz) 11/17/2023 8:33 AM EST Height 172.7 cm (5' 8") 11/17/2023 8:33 AM EST Body Mass Index 30.03 11/17/2023 8:33 AM EST documented in this encounter Functional [...] No 05/28/2020 documented as of this encounter Patient Instructions * Patient Instructions* Shon Rice MD - 11/17/2023 9:07 AM EST Patient Instructions for Bone Marrow [...] Progress Notes * Shon Rice MD - 11/17/2023 3:06 PM EST Hematology/Oncology Outpatient Clinic note [address] [place] 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 Free lambda light chain in the blood. SPEP --> negative for monoclonal paraprotein. Peripheral neuropathy for the last 5 years. -longstanding diabetes mellitus since the age of 14. She scheduled to have amputation of the left great toe on 11/15/2023 but It has been canceled. CURRENT TREATMENT: Will wait for the bone marrow result. DIAGNOSTIC WORKUP: She is having left great toe amputation and so routine preoperative blood workup done as follows: I reviewed her recent CBC done on 11/09/2023, - WBC 5900, H&H of 13.4/41.7, platelet count of 141,000 - Differential count showed ANC of 420, Absolute Lymphocyte count 5100, - Myelocytes noted in the blood. - Normal kidney liver function test noted. No hypercalcemia. Repeat blood workup done on 11/15/2023: - WBC 8700, - ANC 350, absolute blast is around 1400 - H&H of 13/40, platelet count of 154,000. Pathologist reviewed the slide, increase the blast noted in the blood, proximal around 40%. Peripheral blood for flow cytometry --> pending Bone marrow examination done today. OTHER IMPORTANT HISTORY: - thyroid cancer, S/P thyroidectomy man years back, did not receive any radioactive iodine treatment. -she says that some tumor was removed from the right femur several years back, does not remember the exact pathology, did not receive any chemotherapy radiation treatment following that. -hypertension -diabetes mellitus since the age of 14 -hypothyroidism -GERD -history of Coronary artery disease, -history of CV stroke x2 -vocal cord paralysis S/P cholecystectomy. Diabetic retinopathy and neuropathy. INTERVAL HISTORY: She has come the clinic for the follow-up, she came to clinic by herself. She says that she lives by herself, lately feeling slightly weak and tired, she scheduled for left great toe amputation but now It has been canceled because of neutropenia noted in the recent blood workup findings No fever, currently she has not on any antibiotic treatment. No new cardiac or pulmonary symptom no leg edema. 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 [...] (RECTUM) 12/16/2016 adenomatous polyps, repeat 5 yrs/[facility] COLONOSCOPY, DIAGNOSTIC (RECTUM) 06/03/2022 diverticulosis, fair prep, repeat 5 yrs / [facility] EGD, FLEXIBLE, DIAGNOSTIC 12/16/2016 normal bx/[facility] EGD, FLEXIBLE, W/BIOPSY 07/30/2010 esophagitis, await BX LARYNGOPLASTY MEDIALIZATION UNILATERAL Right 05/28/2020 LARYNGOPLASTY, MEDIALIZATION UNILATERAL performed by Farhat Pate MD [place] [facility] LARYNGOSCOPY, VOCAL CORD INJECTION Right 11/20/2019 LARYNGOSCOPY DIRECT INJECTION VOCAL CORD WITH MICROSCOPE performed by Amber Jain MD at [facility] MISCELLANEOUS ORDER ([facility] ONLY) Bilateral 11/24/2017 Reinheimer-bleph/levators-ou OTHER (3 times) 8 inch benign tumor removed from L femur; regrew x 3 OTHER Removal of a benign LN from L axilla REMOVAL OF THYROID GLAND 10/23/2009 total thyroidectomy 10/23/09, [facility], Dr. Vazquez REMOVE CATARACT, INSERT LENS PROSTH Right 07/20/2017 right EXTRACAPSULAR CATARACT REMOVAL WITH INTRAOCULAR LENS performed by Luis Eduardo Cole MD at OR [facility] REMOVE CATARACT, INSERT LENS PROSTH Left 07/06/2017 left EXTRACAPSULAR CATARACT REMOVAL WITH INTRAOCULAR LENS performed by Luis Eduardo Cole MD at OR [facility] REMOVE GALLBLADDER 2004 or so Current Outpatient Medications Medication Sig Dispense Refill Aspirin 81 MG Tablet Take 1 Tablet by mouth in the morning. DULoxetine HCl 60 MG Oral Capsule Delayed Release Particles (Cymbalta) Take 1 Capsule by mouth in the morning. 180 Capsule 0 Lactulose 10 GM/15ML Oral Solution (Constulose) Take 30 mL by mouth in the morning and 30 mL at noon and 30 mL before bedtime. (Patient not taking: Reported on 11/12/2023) 240 mL 0 Melatonin 10 MG Oral Capsule Take 1 Capsule by mouth at bedtime. 100 Capsule 3 metFORMIN HCl 1000 MG Oral Tablet (Glucophage) TAKE ONE TABLET BY MOUTH TWICE A DAY WITH MORNING AND EVENING MEALS 180 Tablet 1 RAREFORM Lancets 33G Use to test blood sugar three times daily E 11.9 300 Each 5 Vine Girls Verio w/Device Kit Use up to 3 times a day E11.9 1 Kit 0 Pen Cold Spring 32G X 4 MM Use as directed. Use to inject insulin 4 times daily 100 Each 5 Triamcinolone Acetonide 0.1 % External Ointment (Aristocort) Apply topically to affected area 2 times a day. Apply to hands and feet 80 g 2 Furosemide 20 MG Oral Tablet (Lasix) Take 1 Tablet by mouth once a day on Wednesday, Wednesday, and Wednesday only. (Patient not taking: Reported on 11/12/2023) 90 Tablet 3 OneTouch Verio In Vitro Strip (Glucose Blood) Use up to 3 times a day E11.9 100 Strip 11 Levothyroxine Sodium 150 MCG Oral Tablet (Synthroid) [...] skin once a week. 6 mL 1 Insulin Glargine Solostar 100 UNIT/ML Subcutaneous Solution Pen-injector (Lantus SoloStar) Inject 35 Units under the skin at bedtime. 45 mL 3 Insulin Lispro (1 Unit Dial) 100 UNIT/ML Subcutaneous Solution Pen-injector (HumaLOG KwikPen) Inject 20 Units under the skin in the morning and 20 Units at noon and 20 Units in the evening. Inject with meals. 15 mL 0 Linzess 72 MCG Oral Capsule (linaCLOtide) Take 1 Capsule by mouth daily before breakfast. 90 Capsule 1 Metoprolol Succinate ER 25 MG Oral Tablet Extended Release 24 Hour (toPROL XL) Take 1.5 Tablets by mouth in the morning. 135 Tablet 1 Omeprazole 20 MG Oral Capsule Delayed Release (PriLOSEC) Take 1 Capsule by mouth in the morning and1 Capsule before bedtime. 180 Capsule 1 amLODIPine Besylate 2.5 MG Oral Tablet (Norvasc) Take 1 Tablet by mouth in the morning. 90 Tablet 3 Rosuvastatin Calcium 20 MG Oral Tablet (Crestor) Take 1 Tablet by mouth daily. 90 Tablet 3 No current facility-administered medications for this visit. Family History Problem Relation Age of Onset Heart Disorder Father Ovarian cancer Mother Multiple Sclerosis Mother Diabetes Brother Thyroid Disorder Daughter Multiple Sclerosis Grandmother (Maternal) Glaucoma Grandmother (Maternal) Stroke No significant family history Eye Problems No significant family history Patient denies HX AMD, retinal detachments or blindness Breast Cancer No significant family history Social History Socioeconomic History Marital status: Spouse [...] on file Housing Stability: Not on file On exam: BP 121/73 (BP Site: Left Arm, BP Position: Sitting, BP Cuff Size: Large) | Pulse 85 | Temp 36.6 C(97.8 F) (Tympanic) | Resp 16 | Ht 1.727 m (5' 8") | Wt 89.6 kg (197 lb 8 oz) | LMP 09/08/2016 |SpO2 92% | BMI 30.03 kg/m | BSA 2.07 m Constitutional: Patient is alert, cooperative and oriented x 3. Well built female, Patient is in noacute distress. HEENT: No icterus, no pallor, Throat and pharynx normal. Sinuses are non-tender. Neck: Supple and without lymphadenopathy or masses. No JVD. No Palpable supraclavicular lymph nodes. Lungs: Clear to auscultation. Bilateral symmetric air entry. No wheezing or rhonchi. Cardiovascular: Normal heart sounds, no murmurs.Regular rate and rhythm. Abdomen: Soft, nontender, no hepatomegaly, no splenomegaly. Bowel sounds are normal. Neurological: No gross focal neurological deficit; walks with a normal gait. Extremities: No finger clubbing, No cyanosis. No leg edema. Skin:: No skin rash. SPINE: No spinal or paraspinal tenderness. LABS: Blood workup done on 11/17/2022: -WBC 9200, H&H of 12.6/39.7, Platelet count of 205234. -BUN/Creat: 25/1.1, Calcium 10.2, normal LFT. -LDH, Uric acid --> pending IMAGING: MRI of the left foot (10/01/2023).--> No evidence of osteomyelitis or abscess. ASSESSMENT AND PLAN: 58-year-old female, She had preoperative CBCD checkup (she was scheduled for left great toe amputation), found to have new onset of neutropenia, normal hemoglobin normal Platelet count. Peripheral blood reviewed by pathologist suggest presence of blasts cell around 40% Flow cytometry result pending. Overall she is somewhat tired, has several comorbid conditions including diabetes mellitus and the neuropathy related to that. I reviewed with her regarding possibility of acute leukemia in her case and she is in agreement forthe bone marrow. Bone marrow examination done today, will wait for the results Currently she has not on any antibiotic treatment, she does complain of intermittent pain in the left great toe with some changes in the color mainly redness. Will see her in the office once the bone marrow result is back Dr. Shon Rice Hem/Onc (This note was completed using the dictation program Fluency Direct. As such, there may be misspellings word substitutions, or other variations that should not change the essence of the clinical content of this encounter note. If there is need for further clarification, please direct questions to the provider listed above.) PROCEDURE: Bone Marrow Biopsy and Aspiration INDICATION: Evaluation of new onset neutropenia INFORMED CONSENT: Obtain and in chart. Risks, benefits, and complications discussed with patient prior to procedure. ANESTHESIA: 1% Lidocaine - Local SUMMARY OF [...] bone marrow biopsy sent to the laboratory. ESTIMATED BLOOD LOSS: Less than approx 2 milliliters. COMPLICATIONS: NONE DISPOSITION: As above, patient to remain in Heme/Onc Clinic for approx 30 minutes prior to going home. May remove pressure dressing tomorrow AM. Dr. Shon Rice Hem/Onc documented in this encounter Nursing Notes * Lenore Diaz CMA - 11/17/2023 8:35 AM EST Patient identifed by name and [...] it for you? ALREADY ACTIVE Filed Vitals: 11/17/23 0833 BP: 121/73 Pulse: 85 Resp: 16 Temp: 36.6 C (97.8 F) TempSrc: Tympanic SpO2: 92% Weight: 89.6 kg (197 lb 8 oz) Height: 1.727 m (5' [...] 11/19/2023 8:00 AM EST [facility] [address] [facility] [place] [address] [place], [facility] [address] [facility] [place] [address] 12/16/2023 11:20 AM EST [address] [phone] Ivonne French PA-C [address] [place] [facility] [place] [address] 12/16/2023 1:45 PM EST Office Visit Hematology/Oncology [facility] [address] [facility] [place] [address] Shon Rice MD [address] [facility] [place] [address] 12/23/2023 1:00 PM EST Office Visit Neurology, [place] [address] [place] [phone] Oralia Glass MD [address] [place] [address] 01/07/2024 10:00 AM EST Office Visit [facility] [place] [address] [facility] [phone] Ivonne French PA-C [address] [place] [address] 01/31/2024 9:00 AM EDT Imaging Radiology [address] [place] [address] 02/10/2024 11:40 AM EDT Office Visit [facility] [place] [address] [phone] Ivonne French PA-C [address] [facility] [place] [address] 05/10/2024 8:15 AM EDT Office Visit Ophthalmology, [place] [address] Migel Ramires MD [address] [place] [address] Pending Results Name Type Priority Associated Diagnoses Date /Time CBC WITH WBC DIFFERENTIAL Lab STAT Neutropenia, unspecified type (HCC) 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) 11/17/2023 9:39 AM EST LD Lab Routine Neutropenia, unspecified type (HCC) 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) 11/17/2023 9:39 AM EST URIC ACID Lab STAT Neutropenia, unspecified type (HCC) 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) 11/17/2023 9:39 AM EST HEPATITIS B SURFACE ANTIGEN Lab Routine Neutropenia, unspecified type (HCC) 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) Screening for viral disease 11/17/2023 9:39 AM EST HEPATITIS B SURFACE ANTIBODY Lab Routine Neutropenia, unspecified type (HCC) 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) Screening for viral disease 11/17/2023 9:39 AM EST HEPATITIS B CORE ANTIBODIES IGG AND IGM Lab Routine Neutropenia, unspecified type (HCC) 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) Screening for viral disease 11/17/2023 9:39 AM EST BONE MARROW PANEL Lab Routine Neutropenia, unspecified type (HCC) 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) 11/17/2023 9:00 AM EST SURGICAL PATHOLOGY Pathology Routine Neutropenia, unspecified type (HCC) 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) 11/17/2023 9:00 AM EST BONE MARROW ASPIRATE LAVENDER (MOLECULAR) - 2 TUB* Lab Routine Neutropenia, unspecified type (HCC) 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) 11/17/2023 9:00 AM EST BONE MARROW ASPIRATE GREEN (FLOW) Lab Routine Neutropenia, unspecified type (HCC) 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) 11/17/2023 9:00 AM EST BONE MARROW ASPIRATE GREEN (REFERRED) Lab Routine Neutropenia, unspecified type (HCC) 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) 11/17/2023 9:00 AM EST BONE MARROW WITH REFLEX TESTING Pathology Routine Neutropenia, unspecified type (HCC) 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) 11/17/2023 9:00 AM EST DIFFERENTIAL, AUTOMATED Lab STAT Neutropenia, unspecified type (HCC) 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) 11/17/2023 9:39 AM EST COMPREHENSIVE BONE MARROW CONSULTATION Pathology Routine Neutropenia, unspecified type (HCC) 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) 11/17/2023 9:00 AM EST DIFFERENTIAL, TECHNOLOGIST REVIEW Lab Routine Neutropenia, unspecified type (HCC) 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 Left: Eye [employer] 01/05/2022 [id number] / [id number] / Lens Intraoc 21.0 - [id number] - [id number] Implanted:Qty : 1 on 07/20/2017 by Luis Eduardo Cole MD at OR [facility] Right: Eye [employer] 01/05/2022 [id number] / [id number] / Syringe Prolaryn Del 1.0cc - [id number] Implanted:Qty : 1 on 11/20/2019 by Amber Jain MD [place] [facility] Right: Mouth [employer] 10/21/2021 [id number] / / [id number] Implant Silastic 7 Silicone Sw - [id number] Implanted:Qty : 1 on 05/28/2020 by Farhat Pate MD [place] [facility] Right: Throat [employer] [place] [id number] / / documented as of this encounter Procedures Procedure Name Priority Date/Time Associated Diagnosis Comments COMPREHENSIVE METABOLIC PANEL STAT 11/17/2023 9:39 AM EST Neutropenia, unspecified type (HCC) 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) CBC STAT 11/17/2023 9:39 AM EST Neutropenia, unspecified type (HCC) 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) documented in this encounter Results * (ABNORMAL) CBC (11/17/2023 9:39 AM EST) WBC 9.25 4.00 - 10.80 K/uL 11/17/2023 2:30 PM EST [facility] RBC 4.49 3.85 - 5.15 M/uL 11/17/2023 2:30 PM EST [facility] HGB 12.6 12.0 - 15.3 g/dL 11/17/2023 2:30 PM EST [facility] HCT 39.7 36.0 - 45.2 % 11/17/2023 2:30 PM EST [facility] MCV 88.4 81.5 - 97.5 fL 11/17/2023 2:30 PM EST [facility] MCH 28.1 27.0 - 34.0 pg 11/17/2023 2:30 PM EST [facility] MCHC 31.7 32.0 - 36.0 g/dL 11/17/2023 2:30 PM EST [facility] RDW 18.8 11.5 - 15.5 % 11/17/2023 2:30 PM EST [facility] PLT 134(L) 140 - 400 K/uL 11/17/2023 2:30 PM EST [facility] MPV 9.2 6.6 - 11.1 fL 11/17/2023 2:30 PM EST [facility] nRBCs 1(H) <=0 /100 WBCs 11/17/2023 2:30 PM EST [facility] Blood Venous blood specimen / Unknown Venipuncture / Unknown 11/17/2023 9:39 AM EST 11/17/2023 9:39 AM EST Shon Rice MD LAB BLOOD ORDERABLES [facility] [address] [place] [address] * (ABNORMAL) COMPREHENSIVE METABOLIC PANEL (11/17/2023 9:39 AM EST) BUN 25(H) 6 - 20 mg/dL 11/17/2023 10:05 AM [facility] 56-02 Creatinine 1.1(H) 0.5 - 1.0 mg/dL 11/17/2023 10:05 AM [facility] 56- Estimated Glomerular Filtration Rate 60 >=60 mL/min 11/17/2023 10:05 AM [facility] 56- Comment:eGFR is calculated b ased on the CKD-EPI 2020 equation Sodium 137 135 - 146 mmol/L 11/17/2023 10:05 AM [facility] 56- Potassium 4.8 3.5 - 5.1 mmol/L 11/17/2023 10:05 AM [facility] 56- Chloride 97(L) 98 - 107 mmol/L 11/17/2023 10:05 AM [facility] 56- CO2 28 22 - 32 mmol/L 11/17/2023 10:05 AM [facility] 56- Anion Gap 12 7 - 15 mmol/L 11/17/2023 10:05 AM [facility] 56- Glucose 324(H) 70 - 120 mg/dL 11/17/2023 10:05 AM [facility] 56- Albumin 4.7 3.8 - 5.0 g/dL 11/17/2023 10:05 AM [facility] 56- AST 23 10 - 35 U/L 11/17/2023 10:05 AM [facility] 56-02 Alkaline Phosphatase 66 35 - 130 U/L 11/17/2023 10:05 AM [facility] 56- Bilirubin, Total 0.4 <=1.2 mg/dL 11/17/2023 10:05 AM [facility] 56- Calcium 10.2 8.4 - 10.2 mg/dL 11/17/2023 10:05 AM [facility] 56- Protein 7.9 6.0 - 8.3 g/dL 11/17/2023 10:05 AM EST [facility] 56- ALT 11 10 - 35 U/L 11/17/2023 10:05 AM EST [facility] 56- Blood Venous blood specimen / Unknown Venipuncture / Unknown 11/17/2023 9:39 AM EST 11/17/2023 9:39 AM EST Shon Rice MD LAB BLOOD ORDERABLES 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 Care Teams Dirt Contractor Relationship Specialty Start Date End Date Ivonne French PA-C [address] [facility] [place] [address] PCP - General Physician Yard Loader Operator 07/24/21 documented as of this encounter
--- OUTSIDE RECORDS SUMMARY | 2024-01-29 21:39 | External Medical Summary ---
Author Name Unknown Address Unknown Organization [id number]:LABORATORY [facility] - [address] [place] [address] Laboratory Report Ordering Provider Test Date Status BRENNAN JOSEPH 11/17/2023 09:00:00 Final Bone marrow from right poste rior superior iliac crest Observation Date Value Abnormality Reference (Units ) Status REFERENCE LAB SCANNED REPORT 11/17/2023 09:00:00 See Scanned Report Final Performing Location [facility] - [address] [place] [address]
--- OUTSIDE RECORDS SUMMARY | 2024-01-29 21:39 | External Medical Summary | Summary of Care ---
Author Name Unknown Organization [facility] Address [address] [facility] [address] Phone [phone] Care Team Providers Care Taxi Driver Supervisor Name Role Phone Ivonne French PA-C Primary Care Provider [phone] Reason for Visit * Reason Comments Outpatient Testing Encounter Details Date Type Department Care Team (Late st Contact Info) Description 11/17/2023 9:30 AM EST Laboratory Laboratory [facility] [address] [place] [address] [facility] [address] [place] [address] Arrived Allergies Active Allergy Reactions Criticality Noted [...] mellitus with hemoglobin A1c goal of 7.0%-8.0% ([facility]) TAKE ONE TABLET BY MOUTH TWICE A DAY WITH MORNING AND EVENING MEALS 180 Tablet 1 05/25/2023 Active Magnetic [employer] Delica Lancets 33G Use to test blood sugar three times daily E 11.9 300 Each 05/25/2023 Active Hotel[employer]Touch Verio w/Device Kit Use up to 3 times a day E11.9 1 Kit 0 05/25/2023 Active Pen [place] 32G X 4 MM Use as directed. 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 Take 1.5 Tablets [...] 11/19/2023 8:00 AM EST Office Visit Pharmacy, [facility] [address] [place] [address] [facility] [address] [facility] [place] [address] 12/16/2023 11:20 AM EST Office Visit [facility], [place] [address] [facility] [phone] Ivonne French PA-C [address] [facility] [address] 12/16/2023 1:45 PM EST Office Visit Hematology/Oncology [facility] [address] [facility] [place] [address] Shon Rice MD [address] [facility] [place] [address] 12/23/2023 1:00 PM EST Office Visit Neurology, [place] [address] [place] [phone] Oralia Glass MD [address] [place], [place] [id number] 01/07/2024 10:00 AM EST Office Visit Family [facility], [place] [address] [facility] [phone] Ivonne French PA-C [address] [facility] [place] [address] 01/31/2024 9:00 AM EDT Imaging Radiology [facility] [facility] [address] [facility] [place] [address] 02/10/2024 11:40 AM EDT Office Visit Family [facility], [place] [address] [facility] [phone] Ivonne French PA-C [address] [place] [address] 05/10/2024 8:15 AM EDT Office Visit Ophthalmology, [place] [address] [place] [address] Migel Ramires MD [address] [place] [address] Scheduled Procedures Name Priority Associated Diagnoses Date/Ti [...] this encounter Medical Devices Implanted Type Area Passenger Conductor Device Identifier Shelf Expiration Date Model / Serial / Lot Lens Intraoc 21.0 - [id number] - [id number] Implanted:Qty : 1 on 07/06/2017 by Luis Eduardo Cole MD at OR [facility] [address] Left: Eye [employer] 01/05/2022 [id number] / [id number] / Lens Intraoc 21.0 - [id number] - [id number] Implanted:Qty : 1 on 07/20/2017 by Luis Eduardo Cole MD at OR [facility] [address] Right: Eye [employer] 01/05/2022 [id number] / [id number] / Syringe Prolaryn Del 1.0cc - [id number] Implanted:Qty : 1 on 11/20/2019 by Amber Jain [place] [facility] [place] Mouth [employer] 10/21/2021 [id number] / / [id number] Implant Silastic 7 Silicone Sw - [id number] Implanted:Qty : 1 on 05/28/2020 by Farhat Pate [place] [facility] [place] Throat [employer] [id number] / / documented as of this [...] and were consensually agreed upon. Care Teams Taxi Driver Supervisor Relationship Specialty Start Date End Date Ivonne French PA-C [address] [facility] [place] [address] PCP - General Physician Amphibious Operations Officer 07/24/21 documented as of this encounter
--- OUTSIDE RECORDS SUMMARY | 2024-01-29 21:39 | External Medical Summary | Summary of Care ---
Author Name Unknown Organization [facility] Address [address] [facility] [place] [address] Phone [phone] Care Team Providers Care Rug Designer Name Role Phone Ivonne French PA-C Primary Care Provider [phone] Reason for Visit * Reason Comments Physical-Exam Surgery for LT Amput ation great toe Encounter Details Date Type Department Care Team (Latest Contact Info) Description 11/09/2023 2:40 PM EST Office Visit [facility] [address] [place] [address] Ivonne French PA-C [address] [place] [address] Preoperative general physical examination*; Drug-induced constipation; Essential hypertension with goal blood pressure less than 130/80; Toe amputee (HCC); Type 2 diabetes mellitus with hemoglobin A1c goal of 7.0%-8.0% ([facility]); Other specified diabetes mellitus with diabetic peripheral angiopathy without gangrene, with long-term current use of insulin ([facility]); Osteomyelitis of great toe of left foot ([facility]); Major depressive disorder, single episode, mild (HCC); Diabetic polyneuropathy associated with type 2 diabetes mellitus ([facility]) Allergies Active Allergy Reactions Criticality [...] EVENING MEALS 180 Tablet 1 05/25/2023 Active PriceTagTouch Delica Lancets 33G Use to test blood sugar three times daily E 11.9 300 Each 5 05/25/2023 Active PriceTagTouch Verio w/Device Kit Use up to 3 times a day E11.9 1 Kit 0 05/25/2023 Active Pen [place] 32G X 4 MM Use as directed. [...] Hour (toPROL XL)Indications:Co ronary artery disease involving [place] coronary artery of [place] heart without angina pectoris Take 1.5 Tablets [...] the morning. 90 Tablet 3 10/14/2023 Active OneTouch Verio In Vitro Strip (Glucose [...] Sign Reading Time Taken Comments Blood Pressure 122/62 11/09/2023 2:33 PM EST Pulse 75 11/09/2023 2:33 PM EST Temperature 36.3 C (97.3 F) 11/09/2023 2:33 PM ES T Respiratory Rate 16 11/09/2023 2:33 PM EST Oxygen Saturation 95% 11/09/2023 2:33 PM EST Inhaled Oxygen Concentration - - Weight 90.1 kg (198 lb 9.6 oz) 11/09/2023 2:33 P M EST Height 172.7 cm (5' 8") 11/09/2023 2:33 PM EST Body Mass Index 30.2 11/09/2023 2:33 PM EST documented in this encounter Functional [...] Progress Notes * Ivonne French PA-C - 11/09/2023 2:37 PM EST Images from the original note were not included. Pre-Operative Medical Evaluation Procedure Information Type of Surgery: amputation of toe Referring Physician / Surgeon: Rigoberto Date of procedure: 11/15/2023 Brief History of Present Illness: Fairly complicated patient here today for pre-op. Her L great toe has had partial amputation. This has continued to cause her issues and she has seen podiatry. They feel full amputation is necessary as she has osteomyelitis. ROS: Constitutional ROS: No change in weight, No weakness, No fatigue, and No fevers, sweats, or chills Eye ROS: No recent significant change in vision, No eye pain, redness, discharge, No diplopia, No h/o cataracts, and No h/o glaucoma Ear ROS: No ear pain, No drainage, No tinnitus or vertigo, and No recent change in hearing Nose ROS: No history of frequent colds or sinusitis, No nasal stuffiness, No history of Hay Fever, and No significant epistaxis Mouth/Throat ROS: No bleeding gums, No thrush, or No sore throat Neck ROS: No lumps or masses, No swollen glands, No recent swelling in thyroid area, No significantpain in neck, and No h/o goiter or thyroid disease Pulmonary ROS: No cough, sputum, or hemoptysis, No wheezing, No rales, No shortness of breath, and No recent change in breathing Cardiovascular ROS: No chest pain, No shortness of breath, No dyspnea on exertion, No orthopnea, Noparoxysmal nocturnal dyspnea, No edema, No palpitations, and No syncope Gastrointestinal ROS: No abdominal pain, No significant heartburn, No significant change in appetite, No nausea, vomiting, diarrhea, or constipation, No hematemesis, No blood in stools or black tarrystools, No abdominal bloating or early satiety, No dysphagia, and + constipation Genito-Urinary Female ROS: No STDs, No dysuria, No frequency, No incontinence, No irregular menstruation, No urgency, and No vaginal discharge Musculoskeletal/Extremities ROS: L great toe osteomyelitis Hematologic/Lymphatic ROS: No coagulation disorder, No anemia, No abnormal bleeding, No chills, No bruising, No HIV risk factors, No night sweats, No swollen nodes, No weight loss, and No history of transfusion Skin/Integumentary ROS: No edema, No rash, and No itching Neurologic ROS: Normal balance, No headaches, No seizures, and No weakness Endocrine ROS: No heat intolerance, No cold intolerance, No thyroid trouble, and No excessive thirst or urination Psychiatric ROS: No depression, No anxiety, and No psychosis Allergy/Immunologic ROS: No allergic triggers, No sneeze, nasal itch, ocular symptoms of allergy, No reactions to insect sting, No chemical sensitivities, and No Food Allergies Sleep: No sleep disorders Medical History Problem List: Varicose veins of both lower extremities (06/04/2023) Gastroesophageal reflux disease (08/15/2021) Hyperlipidemia (08/15/2021) Hyperthyroidism (08/15/2021) MEDICATION USE AGREEMENT (08/15/2021) Toe amputee ([facility]) (07/31/2021) S/P foot surgery, right (07/17/2021) Toe osteomyelitis, left ([facility]) (05/29/2021) Ulcer of left great toe due to diabetes mellitus ([facility]) (05/29/2021) Major depressive disorder, single episode, mild ([facility]) (01/06/2021) Diabetic polyneuropathy associated with type 2 diabetes mellitus ([facility]) (01/06/2021) Morbid obesity, unspecified obesity type ([facility]) (02/13/2020) Vocal fold paralysis, 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) HNP (herniated nucleus pulposus), cervical (05/09/2019) Diabetic retinopathy associated with diabetes mellitus due to underlying condition ([facility]) (08/24/2016) Herpes simplex virus infection (06/07/2015) NBA (generalized anxiety disorder) (03/11/2015) Diabetes mellitus ([facility]) (08/16/2013) Compulsive eating patterns (08/09/2013) Herpes simplex type 1 antibody positive (06/07/2013) Enchondroma of femur (05/10/2013) Type 2 diabetes mellitus with hemoglobin A1c goal of 7.0%-8.0% ([facility]) (12/03/2011) Candidal vulvovaginitis (12/02/2010) OBESITY, BMI 30-34 (SEE ACTUAL BMI) (01/30/2010) Non-toxic multinodular goiter (12/09/2009) Postsurgical hypothyroidism (12/09/2009) History of thyroid cancer (12/05/2009) Gastroparesis (07/13/2008) Diabetic neuropathy ([facility]) (12/14/2007) Idiopathic scoliosis (05/16/2007) ADVANCE DIRECTIVE INFORMATION (03/10/2006) Depressive disorder (03/23/2003) DM type 2, not at goal ([facility]) (03/23/2003) OBESITY, UNSPECIFIED (03/23/2003) family history ovarian cancer (mother) Current Medications amLODIPine Besylate 2.5 MG Oral Tablet (Norvasc), 2.5 mg, Oral, Daily(AM) Linzess 72 MCG Oral Capsule (linaCLOtide), 72 mcg, Oral, Before breakfast Metoprolol Succinate ER 25 MG Oral Tablet Extended Release 24 Hour (toPROL XL), 37.5 mg, Oral, Daily(AM) Omeprazole 20 MG Oral Capsule Delayed Release (PriLOSEC), 20 mg, Oral, BID(AM/PM) Insulin Lispro (1 Unit Dial) 100 UNIT/ML Subcutaneous Solution Pen-injector (HumaLOG KwikPen), 20 Units, Subcutaneous, With meals Insulin Glargine Solostar 100 UNIT/ML Subcutaneous Solution Pen-injector (Lantus SoloStar), 35 Units, Subcutaneous, HS Mounjaro 10 MG/0.5ML Subcutaneous Solution Pen-injector (Tirzepatide), 10 mg, Subcutaneous, Q Week Isosorbide Mononitrate ER 30 MG Oral Tablet Extended Release 24 Hour (Imdur), 30 mg, Oral, Daily(AM) Magnesium 400 MG Oral Tablet, 1 Tablet, Oral, HS Levothyroxine Sodium 150 MCG Oral Tablet (Synthroid), One tab daily Wednesday through Wednesday - half tab daily Wednesday and wednesday OneToForseva In Vitro Strip (Glucose Blood), Use up to 3 times a day E11.9 Furosemide 20 MG Oral Tablet (Lasix), 20 mg, Oral, M;W;F Lactulose 10 GM/15ML Oral Solution (Constulose), 20 g, Oral, TID(AM/NOON/HS) Melatonin 10 MG Oral Capsule, 10 mg, Oral, HS metFORMIN HCl 1000 MG Oral Tablet (Glucophage), TAKE ONE TABLET BY MOUTH TWICE A DAY WITH MORNING AND EVENING MEALS [employer] Delica Lancets 33G, Use to test blood sugar three times daily E 11.9 PriceTagTouch Verio w/Device Kit, Use up to 3 times a day E11.9 Pen [place] 32G X 4 MM, Use as directed. Use to inject insulin 4 times daily Triamcinolone Acetonide 0.1 % External Ointment (Aristocort), Apply topically to affected area 2 times a day. 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 Past Surgical History: has a past surgical history that includes removal of thyroid gland (10/23/2009); other ( (3 times)); remove gallbladder (2004 or so); other; Colonoscopy w/ Biopsy (Rectum) (04/14/2010); EGD, Flexible, w/Biopsy (07/30/2010); Colonoscopy, Diagnostic (Rectum) (12/16/2016); EGD, Flexible, Diagnostic (12/16/2016); remove cataract, insert lens prosth (Right, 07/20/2017); Miscellaneous Order (HSHSOnly) (Bilateral, 11/24/2017); remove cataract, insert lens prosth (Left, 07/06/2017); laryngoscopy, vocal cord injection (Right, 11/20/2019); Laryngoplasty Medialization Unilateral (Right, 05/28/2020); amputation of toe (Left); and Colonoscopy, Diagnostic (Rectum) (06/03/2022). Social History: reports that she has never smoked. She has been exposed to tobacco smoke. She has never used smokeless tobacco. She reports that she does not drink alcohol and does not use drugs. Family History: family history includes Diabetes in her brother; Glaucoma in her grandmother (maternal); Heart Disorder in her father; Multiple Sclerosis in her grandmother (maternal) and mother; Ovarian cancer in her mother; Thyroid Disorder in her daughter. Anesthesia History Type of Anesthesia: General Endotracheal Anesthesia reaction: No History of surgical complications: none Personal history of venous thromboembolic disease: none Physical Exam Vitals: 11/09/23 1433 Temp: 36.3 C (97.3 F) Pulse: 75 Resp: 16 SpO2: 95% BP: 122/62 BMI: 30.2 General: alert, healthy, and no distress Head: Normocephalic, No masses, lesions, tenderness or abnormalities Eye Exam: PERRLA, extraocular movements intact, conjunctiva are pink and non- injected, sclera clear Ears: External ears normal, Canals clear, TM's Normal Nose: no mucosal erythema, no mucosal edema, no purulent discharge Oropharynx: no exudate, no erythema, lips, buccal mucosa, and tongue normal, and mucous membranes are moist Neck: supple, no adenopathy, no bruits, thyroid normal size, non-tender, without nodularity Heart: regular rate & rhythm, no murmur, no gallops, S-1 normal, and S-2 normal Lungs: chest symmetric with normal AP diameter, no chest deformities noted, no chest wall tenderness, lungs clear to auscultation Pulses: carotid=2/4 w/o bruits Abdomen: abdomen soft, non-tender, normal bowel sounds, and no masses or organomegaly Back: back symmetric, no curvature, no costovertebral angle tenderness, range of motion is normal Extremities: less than 2 second capillary refill, no joint deformities, effusion, or inflammation Skin: skin color, texture, turgor are normal, no rashes or significant lesions Labs reviewed and are significant for: abnormal cbc, needs hematology input EKG cardiac clearance - pending [facility] Surgical Risk Scoring Revised Cardiac Risk Index (RCRI) High-risk type of surgery (examples include vascular and any open intraperitoneal or intrathoracic procedures): 0=No History of ischemic heart disease (history of myocardial infarction or positive exercise test, current compliant of chest pain considered to be secondary to myocardia ischemia, use of nitrate therapy, or ECG with pathological Q waves; do not count prior coronary revascularization procedure unless one of the other criteria for ischemic heart disease is present): 0=No History of heart failure: 0=No History of cerebrovascular disease: 0=No Diabetes mellitus requiring treatment with insulin: 1=Yes Preoperative serum creatinine >2.0 mg/dL (177 micromol/L): 0=No Pt has revised cardiac index score of: One Risk Factor- 1.0% (95% CI: 0.5-1.4) Screening for Obstructive Sleep Apnea (STOP-BANG) Do you Snore loudly? 1=Yes Do you often feel Tired, Fatigued, or Sleep? 1=Yes Has anyone Observed you Stop Breathing or Choking/Gasping during sleep? 0=No Do you have or are you being treated for High Blood Pressure? 0=No BMI over 35? 0=No Age older than 50? 1=Yes Neck size large? (For males - 17 inches or larger, For females - 16 inches or larger) 0=No Male? 0=No Score 0-2:low risk GILBERT, 3-4: intermediate risk of GILBERT, 5-8: high risk GILBERT 3 Assessment and Plan There are no diagnoses linked to this encounter. Functional Assessment They are able to walk up a flight of stairs. The patient's functional status is good (greater than 4 METS). 1 MET: 4 METs: 4-10 METs: Can take care of self, such as eat, dress or use the toilet. Can walk to block or go up a flight of steps. Can do heavy house work. Surgical Risk Assessment Patient is indeterminate medical risk for the listed procedure. Medication adjustments: None Additional consults or testing: Cardiovascular clearance We are clearing medically Preoperative general physical examination (Primary) - PT INR; Future; Expected date: 11/09/2023 - CBC WITH WBC DIFFERENTIAL; Future; Expected date: 11/09/2023 Drug-induced constipation Essential hypertension with goal blood pressure less than 130/80 - COMPREHENSIVE METABOLIC PANEL; Future; Expected date: 11/09/2023 Toe amputee (HCC) Type 2 diabetes mellitus with hemoglobin A1c goal of 7.0%-8.0% ([facility]) - PT INR; Future; Expected date: 11/09/2023 - CBC WITH WBC DIFFERENTIAL; Future; Expected date: 11/09/2023 - COMPREHENSIVE METABOLIC PANEL; Future; Expected date: 11/09/2023 - HEMOGLOBIN A1C; Future; Expected date: 11/09/2023 - LIPASE; Future; Expected date: 11/09/2023 - ALBUMIN / CREATININE RATIO, URINE; Future; Expected date: 11/09/2023 Other specified diabetes mellitus with diabetic peripheral angiopathy without gangrene, with long-term current use of insulin ([facility]) - PT INR; Future; Expected date: 11/09/2023 Osteomyelitis of great toe of left foot (HCC) - needs amputation Major depressive disorder, single episode, mild (HCC) - sees psychiatry for medication Diabetic polyneuropathy associated with type 2 diabetes mellitus (HCC) Hemoglobin AIC Results: Lab Results Component Value Date/Time HEMOGLOBIN A1C - [facility] 10.7 (H) 11/09/2023 03:17 PM HEMOGLOBIN A1C - [facility] 8.8 (H) 06/15/2023 10:06 AM HEMOGLOBIN A1C - [facility] 9.9 (H) 04/27/2023 09:44 AM HEMOGLOBIN A1C - [facility] 10.9 (H) 10/14/2020 12:10 PM HEMOGLOBIN A1C - [facility] 10.2 (H) 05/25/2020 09:43 AM HEMOGLOBIN A1C - [facility] 10.3 (H) 02/13/2020 12:01 PM Poorly controlled Patient is not cleared at this time Ivonne French PA-C 11/09/2023 2:51 PM documented in this encounter Nursing Notes * Iman Rapp CCMA - 11/09/2023 2:33 PM EST Juany Resendez is a 58 year old female who presents today for Chief Complaint Patient presents with Physical-Exam Surgery for LT Amputation great toe documented in this encounter Plan of Treatment Upcoming Encounters Date Type Department Care Team (Late st Contact Info) Description 12/16/2023 11:20 AM EST Office Visit [facility] [address] [place] [phone] Ivonne French PA-C [address] [place] [address] 12/16/2023 1:45 PM EST Office Visit Hematology/Oncology [facility] [place] [address] [facility] [place] [address] Shon Rice MD [address] [facility] [place] [address] 12/23/2023 1:00 PM EST Office Visit Neurology, [place] [address] [place] [phone] Oralia Glass MD [address] [place] [address] 12/29/2023 8:10 AM EST Pharmacy Pharmacy, [facility] [address] [facility] [place] [address] [facility] [address] [facility] [place] [address] 01/07/2024 10:00 AM EST Office [facility] [address] [facility] [phone] Ivonne French PA-C [address] [facility] [address] 01/31/2024 9:00 AM EDT Imaging Radiology [facility] [facility] [address] [facility] [place] [address] 02/10/2024 11:40 AM EDT [facility] [place] [facility] [place] [place] [address] [facility] [phone] Ivonne French PA-C [address] [facility] [place] [address] 05/10/2024 8:15 AM EDT Office Visit OphthalmologyFrancisco J [address] [place] [address] Migel Ramires MD [address] [place] [address] Scheduled Procedures Name Priority Associated Diagnoses Date/Ti [...] this encounter Medical Devices Implanted Type Area Structures Technician Device Identifier Shelf Expiration Date Model / Serial / Lot Lens Intraoc 21.0 - [id number] - [id number] Implanted:Qty : 1 on 07/06/2017 by Luis Eduardo Cole MD at OR [facility] Left: Eye [employer] 01/05/2022 [id number] / [id number] / Lens Intraoc 21.0 - [id number] - [id number] Implanted:Qty : 1 on 07/20/2017 by Luis Eduardo Cole MD at OR [facility] Right: Eye [employer] 01/05/2022 [id number] / [id number] / Syringe Prolaryn Del 1.0cc - [id number] Implanted:Qty : 1 on 11/20/2019 by Amber Jain MD at OR [facility] [place] [place] Right: Mouth [employer] 10/21/2021 [id number] / / [id number] Implant Silastic 7 Silicone Sw - [id number] Implanted:Qty : 1 on 05/28/2020 by Farhat Pate MD at OR [facility] [place] [place] Right: Throat Helpr [id number] / / documented as of this encounter Results * (ABNORMAL) COMPREHENSIVE METABOLIC PANEL (11/09/2023 3:17 PM EST) BUN 18 6 - 20 mg/dL 11/09/2023 10:01 PM EST LABORATORY [facility] [place] [place] Creatinine 1.0 0.5 - 1.0 mg/dL 11/09/2023 10:01 PM EST LAB[facility]ORY [facility] [place] [place] Estimated Glomerular Filtration Rate 64 >=60 mL/min 11/09/2023 10:01 PM EST LAB[facility]ORY [facility] [place] [place] Comment:eGFR is calculated b ased on the CKD-EPI 2020 equation Sodium 137 135 - 146 mmol/L 11/09/2023 10:01 PM EST LAB[facility]ORY [facility] [place] [place] Potassium 4.5 3.5 - 5.1 mmol/L 11/09/2023 10:01 PM EST [facility] Chloride 97(L) 98 - 107 mmol/L 11/09/2023 10:01 PM EST [facility] CO2 28 22 - 32 mmol/L 11/09/2023 10:01 PM EST [facility] Anion Gap 12 7 - 15 mmol/L 11/09/2023 10:01 PM EST [facility]ORY [facility] [place] [place] Glucose 151(H) 70 - 120 mg/dL 11/09/2023 10:01 PM EST [facility] Albumin 5.0 3.8 - 5.0 g/dL 11/09/2023 10:01 PM EST [facility] AST 26 10 - 35 U/L 11/09/2023 10:01 PM EST [facility] Alkaline Phosphatase 67 35 - 130 U/L 11/09/2023 10:01 PM EST LAB[facility]ATORY [facility] Bilirubin, Total 0.4 <=1.2 mg/dL 11/09/2023 10:01 PM EST [facility] Calcium 9.9 8.4 - 10.2 mg/dL 11/09/2023 10:01 PM EST [facility] Protein 7.8 6.0 - 8.3 g/dL 11/09/2023 10:01 PM EST LABORATORY [facility] ALT 14 10 - 35 U/L 11/09/2023 10:01 PM EST LAB[facility]ATORY [facility] [place] [place] Blood Venous blood specimen / Unknown Venipuncture / Unknown 11/09/2023 3:17 PM EST 11/09/2023 3:22 PM EST Ivonne French PA-C LAB BLOOD ORDERAB LES LAB[facility]ATORY [facility] [place] [place] [address] [place], [place] [id number] * PT INR (11/09/2023 3:17 PM EST) Prothrombin Time 14.3 11.6 - 15.2 seconds 11/09/2023 10:16 PM EST LABORATORY [facility] INR 1.1 0.8 - 1.2 11/09/2023 10:16 PM EST LAB[facility]ORY [facility] [place] [place] Blood Venous blood specimen / Unknown Venipuncture / Unknown 11/09/2023 3:17 PM EST 11/09/2023 3:22 PM EST Narrative [facility] - 11/09/2023 10:16 PM EST Warfarin Therapy INR: 2.0-3.0 conventional anticoagulation INR: 2.5-3.5 high intensity anticoagulation Ivonne French PA-C LAB BLOOD ORDERAB LES LAB[facility] [place] [place] [address] [place] [address] documented in this encounter Visit Diagnoses Diagnosis Preoperative general physical examination- Primary Other specified pre-operative examination Drug-induced constipation Other constipation Essential hypertension with goal blood pressure less than 130/80 Toe amputee (HCC) Type 2 diabetes mellitus with hemoglobin A1c goal of 7.0%-8.0% (HCC) Other specified diabetes mellitus with diabetic peripheral angiopathy without gangrene, with long-term current use of insulin (HCC) Osteomyelitis of great toe of left foot (HCC) Major depressive disorder, single episode, mild (HCC) Major depressive disorder, single episode, mild Diabetic polyneuropathy associated with type 2 diabetes mellitus (HCC) documented in this encounter Advance Directives [...] and were consensually agreed upon. Care Teams Rug Designer Relationship Specialty Start Date End Date Ivonne French PA-C [address] [place] [address] PCP - General Physician Zigzag Tunnel Elastic Operator 07/24/21 documented as of this encounter
--- OUTSIDE RECORDS SUMMARY | 2024-01-29 21:39 | External Medical Summary | Summary of Care ---
Author Name Unknown Organization [facility] Address [address] [facility] [place] [address] Phone [phone] Care Team Providers Care Machine Stacker Name Role Phone Ivonne French PA-C Primary Care Provider +1 [phone] Reason for Visit * Reason Onset Date Comments Test Results 11/16/2023 Encounter Details Date Type Department Care Team (Late st Contact Info) Description 11/16/2023 Telephone Cardiology, [facility] [address] [facility] [place] [address] Christian Cardenas PA-C [address] [place] [address] Test Results Allergies Active Allergy Reactions Criticality Noted Date Comments Adhesive Tape 04/21/2016 Glue off the old style medical tape. documented as of this encounter (statuses as of 11/16/2023) Medications Medication Sig Dispensed Refills Start Date [...] EVENING MEALS 180 Tablet 1 05/25/2023 Active iGroup NetworkTo[employer]ie Delica Lancets 33G Use to test blood sugar three times daily E 11.9 300 Each 05/25/2023 Active OneTouch Verio w/Device Kit Use up to 3 times a day E11.9 1 Kit 0 05/25/2023 Active Pen [place] 32G X 4 MM Use as directed. [...] Additional Information Patient not taking.Reported on 11/12/2023 [employer]Group [employer]To[employer]ie Verio In Vitro Strip (Glucose Blood) Use [...] a week. 6 mL 1 09/09/2023 Active Insulin Glargine Solostar 100 UNIT/ML Subcutaneous [...] 10/12/2023 Active Linzess 72 MCG Oral Capsule (linaCLOtide)Lety cations:Drug-marian isael constipation Take 1 Capsule by mouth daily before breakfast. 90 Capsule 1 10/14/2023 Active Metoprolol Succinate ER 25 MG Oral Tablet Extended Release 24 Hour (toPROL XL)Indications:Co ronary artery disease involving [place] coronary artery of [place] heart without angina pectoris Take 1.5 Tablets [...] mouth daily. 90 Tablet 3 11/16/2023 Active Rosuvastatin Calcium 20 MG Oral Tablet (Crestor) Take 1 Tablet by mouth daily. 0 11/12/2023 4 Discontinue d(Refill) documented as of this encounter (statuses as of 11/16/2023) Active Problems Problem Noted Date Diagnosed Date [...] as of this encounter (statuses as of 11/16/2023) Resolved Problems Problem Noted Date Diagnosed Date [...] as of this encounter (statuses as of 11/16/2023) Immunizations Name Administration Dates Next Due COVID-19 [...] encounter Miscellaneous Notes * Telephone Encounter - Frandy Ward LPN - 11/16/2023 3:57 PM EST Called patient and informed of Christian's message. Patient verbalized understanding. Labs ordered. Prescription pended. ----- Message from Christian Cardenas PA-C sent at 11/16/2023 7:27 AM EST ----- Laboratory work indicative of noncompliance with rosuvastatin (Crestor) Patient with abnormal LFTs (AST 150, ALT 162) on February 22, 2023 while on rosuvastatin 40 mg/day andmultiple other possible offending agents Imaging of the right upper quadrant revealed hepatic steatosis on May 24, 2023 Recommendations: Resume rosuvastatin (Crestor) at 20 mg/day. Check a hepatic function panel in 1 month. Check a fasting lipid panel with direct LDL, AST, and ALT in 3-4 months. documented in this encounter Plan of Treatment Upcoming Encounters Date Type Department Care Team (Late st Contact Info) Description 11/19/2023 8:00 AM EST Office Visit Pharmacy, [facility] [address] [place] [address] [facility] 132 [facility] [place] [address] 12/16/2023 11:20 AM EST [facility] [address] [facility] [phone] Ivonne French PA-C [address] [facility] [place] [address] 12/16/2023 1:45 PM EST Office Visit Hematology/Oncology [facility] [address] [facility] [address] Shon Rice MD [address] [place] [address] 12/23/2023 1:00 PM EST Office Visit Neurology, [place] [address] [place] [address] Oralia Glass MD [address] [place] [address] 01/07/2024 10:00 AM EST Office Visit [facility], [place] [address] [place] [address] Ivonne French PA-C [address] [place] [address] 01/31/2024 9:00 AM EDT Imaging Radiology [facility] 1st [facility], [place] [address] [place] [address] 02/10/2024 11:40 AM EDT Office Visit [facility] [place] [address] [place] [phone] Ivonne French PA-C [address] [place] [address] 05/10/2024 8:15 AM EDT Office Visit Ophthalmology, [place] [address] [place] [address] Migel Ramires MD [address] [place] [address] Scheduled Orders Name Type Priority Associated Diagnoses Orde r Schedule HEPATIC FUNCTION PANEL Lab Routine Abnormal LFTs (liver function tests) Expected: 12/17/2023 (Approximate), Expires: 11/16/2024 LIPID PANEL WITH DIRECT LDL IF TG IS HIGH Lab Routine Dyslipidemia, goal LDL below 70 Expected: 02/15/2024 (Approximate), Expires: 11/16/2024 AST Lab Routine Dyslipidemia, goal LDL below 70 Expected: 02/15/2024 (Approximate), Expires: 11/16/2024 ALT Lab Routine Dyslipidemia, goal LDL below 70 Expected: 02/15/2024 (Approximate), Expires: 11/16/2024 Scheduled Procedures Name Priority Associated Diagnoses Date/Ti [...] score < 10) 12/26/2022 12/25/2022 COVID-19 Vaccine (2022- season) 2023 08/19/2021, 07/22/2021 Influenza Vaccine (FLU [...] this encounter Medical Devices Implanted Type Area Wood And Hardware Outfitter Device Identifier Shelf Expiration Date Model / Serial / Lot Lens Intraoc 21.0 - [id number] - [id number] Implanted:Qty : 1 on 07/06/2017 by Luis Eduardo Cole MD at OR [facility] Left: Eye BAUSCH & LOMB 01/05/2022 [id number] / [id number] / Lens Intraoc 21.0 - [id number] - [id number] Implanted:Qty : 1 on 07/20/2017 by Luis Eduardo Cole MD at OR [facility] Right: Eye BAUSCH & LOMB 01/05/2022 [id number] / [id number] / Syringe Prolaryn Del 1.0cc - [id number] Implanted:Qty : 1 on 11/20/2019 by Amber Jain MD [place] [facility] Right: Mouth [employer] 10/21/2021 [id number] / / [id number] Implant Silastic 7 Silicone Sw - [id number] Implanted:Qty : 1 on 05/28/2020 by Farhat Pate MD at [place] [facility] Right: Throat [employer] [id number] / / documented as of this encounter Visit Diagnoses Diagnosis Dyslipidemia, goal LDL below 70- Primary Other and unspecified hyperlipidemia Abnormal LFTs (liver function tests) Other abnormal blood chemistry documented in this encounter Advance Directives Latest [...] and were consensually agreed upon. Care Teams Machine Stacker Relationship Specialty Start Date End Date Ivonne French PA-C [address] [place] [address] PCP - General Physician Transportation Engineer 07/24/21 documented as of this encounter
--- OUTSIDE RECORDS SUMMARY | 2024-01-29 21:39 | External Medical Summary | Summary of Care ---
Author Name Unknown Organization [facility] Address [address] [facility] [place] [address] Phone [phone] Care Team Providers Care Thread Clipper Name Role Phone Ivonne French PA-C Primary Care Provider [phone] [phone] Reason for Visit * Reason Onset Date Comments Appointment 11/17/2023 Encounter Details Date Type Department Care Team (Late st Contact Info) Description 11/17/2023 Telephone Hematology/Oncology [facility] [place] [address] [facility] [place] [address] Shon Rice MD [address] [facility] [address] Appointment Allergies Active Allergy Reactions Criticality Noted [...] goal of 7.0%-8.0% ([facility]) TAKE ONE TABLET BY MOUTH TWICE A DAY WITH MORNING AND EVENING MEALS 180 Tablet 1 05/25/2023 Active [employer] Delica Lancets 33G Use to test blood sugar three times daily E 11.9 300 Each 05/25/2023 Active OneTouch Verio w/Device Kit Use up to 3 times a day E11.9 1 Kit 0 05/25/2023 Active Pen [place] 32G X 4 MM Use as directed. [...] Additional Information Patient not taking.Reported on 11/12/2023 [employer] Verio In Vitro Strip (Glucose Blood) Use [...] Hour (toPROL XL)Indications:Cor onary artery disease involving [place] coronary artery of [place] heart without angina pectoris Take 1.5 Tablets [...] Telephone Encounter - Amara Arita OSA - 11/17/2023 7:42 AM EST Per : Repeat blood workup done on 11/15/2023: - WBC 8700, - ANC 350, absolute blast is around 1400 - H&H of 13/40, platelet count of 154,000. Pathologist reviewed the slide, increase the blast noted in the blood, proximal around 40%. 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 I spoke with her on the phone, reviewed the blood workup findings, would like to see her in the clinic on 11/17/2023 at 8:45 AM. Also planning for bone marrow at the same time. She is aware about the appointment date and time. Patient has been scheduled. documented in this encounter Plan of Treatment Upcoming Encounters Date Type Department Care Team (Late st Contact Info) Description 11/17/2023 8:45 AM EST Office Visit Hematology/Oncology [facility] [address] [place] [address] Shon Rice MD [address] [place] [address] 11/19/2023 8:00 AM EST Office Visit Pharmacy, [facility] [place] [address] [facility] [place] [address] 12/16/2023 11:20 AM EST Office Visit [facility] [address] [place] [phone] Ivonne French PA-C [address] [place] [address] 12/16/2023 1:45 PM EST Office Visit Hematology/Oncology [facility] [address] [place] [address] Shon Rice MD [address] [facility] [place] [address] 12/23/2023 1:00 PM EST Office Visit Neurology, [place] [address] [place] [phone] Oralia Glass MD [address] [place] [address] 01/07/2024 10:00 AM EST Office Visit [place] [address] [place] [address] Ivonne French PA-C [address] [place] [address] 01/31/2024 9:00 AM EDT Imaging Radiology [facility] 1st [facility] [place] [address] [place] [address] 02/10/2024 11:40 AM EDT Office Visit [facility] [address] [place] [address] Ivonne French PA-C [address] [place] [address] 05/10/2024 8:15 AM EDT Office Visit OphthalmologyFrancisco J [address] [place] [address] Migel Ramires MD [address] [place] [address] Scheduled Procedures Name Priority Associated Diagnoses Date/Ti [...] this encounter Medical Devices Implanted Type Area Tobacco Warehouse Agent Device Identifier Shelf Expiration Date Model / Serial / Lot Lens Intraoc 21.0 - [id number] - [id number] Implanted:Qty : 1 on 07/06/2017 by Luis Eduardo Cole MD at OR [facility] Left: Eye BAUSCH & LOMB 01/05/2022 [id number] / [id number] / Lens Intraoc 21.0 - [id number] - [id number] Implanted:Qty : 1 on 07/20/2017 by Luis Eduardo Cole MD at OR [facility] Right: Eye BAUSCH & LOMB 01/05/2022 [id number] / [id number] / Syringe Prolaryn Del 1.0cc - [id number] Implanted:Qty : 1 on 11/20/2019 by Amber Jain MD at OR [facility] Right: Mouth [employer] 10/21/2021 [id number] / / [id number] Implant Silastic 7 Silicone Sw - [id number] Implanted:Qty : 1 on 05/28/2020 by Farhat Pate MD at OR [facility] Right: Throat [employer] [id number] / / documented as of this [...] and were consensually agreed upon. Care Teams Thread Clipper Relationship Specialty Start Date End Date Ivonne French PA-C [address] [place] [address] PCP - General Physician Physical Anthropologist 07/24/21 documented as of this encounter
--- OUTSIDE RECORDS SUMMARY | 2024-01-29 21:39 | External Medical Summary ---
Author Name Unknown Address Unknown Organization K09:[facility] [address] [place] [address] Laboratory Report Ordering Provider Test Date Status BRENNAN JOSEPH 11/17/2023 09:39:23 Final Observation Date Value Abnormality Reference (Units ) Status BUN 11/17/2023 09:39:23 25 Above high normal 6-20 (mg/dL) Final Creatinine 11/17/2023 09:39:23 1.1 Above high normal 0.5-1.0 (mg/dL) Final Glomerular filtration rate/1.73 sq M.predicted [Volume Rate/Area] in Serum, Plasma or Blood by Creatinine-based formula (CKD-EPI) 11/17/2023 09:39:23 60 >=60 (mL/min) Final eGFR is calculated based on the CKD-EPI 2020 equation SODIUM 11/17/2023 09:39:23 137 135-146 (m mol/L) Final Potassium 11/17/2023 09:39:23 4.8 3.5-5.1 (m mol/L) Final Cl 11/17/2023 09:39:23 97 Below low normal 98- 107 (mmol/L) Final CO2 11/17/2023 09:39:23 28 22-32 (mmo l/L) Final Anion gap 11/17/2023 09:39:23 12 7-15 (mmol /L) Final Glucose 11/17/2023 09:39:23 324 Above high normal 70 -120 (mg/dL) Final Albumin 11/17/2023 09:39:23 4.7 3.8-5.0 (g /dL) Final AST (Aspartate aminotransferase) 11/17/2023 09:39:23 23 10-35 (U/L) Fin al Alk Phos 11/17/2023 09:39:23 66 35-130 (U/ L) Final Bilirubin, Total 11/17/2023 09:39:23 0.4 <=1 .2 (mg/dL) Final Calcium 11/17/2023 09:39:23 10.2 8.4-10.2 ( mg/dL) Final Protein 11/17/2023 09:39:23 7.9 6.0-8.3 (g /dL) Final ALT (Alanine aminotransferase) 11/17/2023 09:39:23 11 10-35 (U/L) Colin lee Performing Location [facility] [address] [place] [address]
--- OUTSIDE RECORDS SUMMARY | 2024-01-29 21:40 | External Medical Summary ---
Author Name Unknown Address Unknown Organization K01:[facility] - [address] [place] [address] Laboratory Report Ordering Provider Test Date Status BRENNAN JOSEPH 11/15/2023 13:05:23 Final Observation Date Value Abnormality Reference (Units ) Status SYNC LEUKOCYTES IN BLOOD BY AUTOMATED COUNT 11/15/2023 13:05:23 8.79 4.00-10.80 (K/uL) Final Neutrophils/100 leukocytes in Blood by Manual count 11/15/2023 13:05:23 4.0 Below low normal 40.0-75.0 (%) Final Lymphocytes/100 leukocytes in Blood by Manual count 11/15/2023 13:05:23 75.0 Above high normal 18.0-42.0 (%) Final Monocytes/100 leukocytes in Blood by Manual count 11/15/2023 13:05:23 3.0 1.0-11.0 (%) Final Eosinophils/100 leukocytes in Blood by Manual count 11/15/2023 13:05:23 2.0 0.0-6.0 (%) Final Blasts/100 leukocytes in Blood by Manual count 11/15/2023 13:05:23 16.0 Above high normal <=0.0 (%) Final Neutrophils [#/volume] in Blood by Manual count 11/15/2023 13:05:23 0.35 Below low normal 1.80-7.70 (K/uL) Final Lymphocytes [#/volume] in Blood by Manual count 11/15/2023 13:05:23 6.59 Above high normal 1.00-4.80 (K/uL) Final Monocytes [#/volume] in Blood by Manual count 11/15/2023 13:05:23 0.26 0.00-1.10 (K/uL) Final Eosinophils [#/volume] in Blood by Manual count 11/15/2023 13:05:23 0.18 0.00-0.70 (K/uL) Final Blasts [#/volume] in Blood by Manual count 11/15/2023 13:05:23 1.41 Above high normal <=0.00 (K/uL) Final Performing Location [facility] [place] [facility] [address] [facility] [address]
--- OUTSIDE RECORDS SUMMARY | 2024-01-29 21:40 | External Medical Summary | Summary of Care ---
Author Name Unknown Organization [facility] Address [address] [place] [address] Phone [phone] Care Team Providers Care Charging Operator Name Role Phone Ivonne French PA-C Primary Care Provider [phone] [phone] Reason for Visit * Reason Comments Outpatient Testing Encounter Details Date Type Department Care Team (Latest Contact Info) Description 11/15/2023 12:50 PM EST Laboratory Laboratory, [place] [address] [place] [address] [place], [facility] [address] [place] [address] Dyslipidemia, goal LDL below 70; Monoclonal paraproteinemia Allergies Active Allergy Reactions Criticality Noted Date Comments Adhesive Tape 04/21/2016 Glue off the old style medical tape. documented as of this encounter (statuses as of 11/15/2023) Medications Medication Sig Dispensed Refills Start Date [...] mellitus with hemoglobin A1c goal of 7.0%-8.0% ([facility]) TAKE ONE TABLET BY MOUTH TWICE A DAY WITH MORNING AND EVENING MEALS 180 Tablet 1 05/25/2023 Active 41st ParameterTouch Delica Lancets 33G Use to test blood sugar three times daily E 11.9 300 Each 05/25/2023 Active OneTouch Verio w/Device Kit Use up to 3 times a day E11.9 1 Kit 0 05/25/2023 Active Pen [place] 32G X 4 MM Use as directed. [...] Additional Information Patient not taking.Reported on 11/12/2023 OneTouch Verio In Vitro Strip (Glucose Blood) [...] Hour (toPROL XL)Indications:Cor onary artery disease involving [place] coronary artery of [place] heart without angina pectoris Take 1.5 Tablets [...] 1 Tablet by mouth daily. 0 11/12/2023 Active documented as of this encounter (statuses as of 11/15/2023) Active Problems Problem Noted Date Diagnosed Date [...] as of this encounter (statuses as of 11/15/2023) Resolved Problems Problem Noted Date Diagnosed Date [...] as of this encounter (statuses as of 11/15/2023) Immunizations Name Administration Dates Next Due COVID-19 [...] 11/19/2023 8:00 AM EST Office Visit Pharmacy, [facility] [address] [facility] [place] [address] [facility] [address] [place] [address] 12/16/2023 11:20 AM EST Office Visit [facility] [place] [address] [facility] [address] Ivonne French PA-C [address] [facility] [address] 12/16/2023 1:45 PM EST Office Visit [facility]ology[facility] [address] [facility] [place] [address] Shon Rice MD [address] [facility] [place] [address] 12/23/2023 1:00 PM EST Office Visit Neurology, [place] [address] [place] [phone] Oralia Glass MD [address] [place] [address] 01/07/2024 10:00 AM EST Office Visit [facility] [place] [address] [facility] [address] Ivonne French PA-C [address] [facility] [address] 01/31/2024 9:00 AM EDT Imaging Radiology [facility] 1st [facility] [address] [facility] [place] [address] 02/10/2024 11:40 AM EDT Office Visit [facility] [place] [address] [place] [address] Ivonne French PA-C [address] [place] [address] 05/10/2024 8:15 AM EDT Office Visit Ophthalmology, [place] [address] [place] [address] Migel Ramires MD 21 [facility] [place] [address] Pending Results Name Type Priority Associated Diagnoses Date /Time LIPID PANEL WITH DIRECT LDL IF TG IS HIGH Lab Routine Dyslipidemia, goal LDL below 70 11/15/2023 1:05 PM EST Scheduled Procedures Name Priority Associated Diagnoses [...] 11/24/2022, 0 07/22/2021, 07/03/2020, Additional history exists Albumin/Creatinine Ratio 12/25/2023 023, 09/16/2022, 12/12/2021, Additional history exists B-12 12/25/2023 12/25/2022, 0606/2022, 07/23/2021, Additional history exists Mammogram 01/28/2024 01/27/2023, 01/07, 08/03/2022, Additional history exists TSH 04/27/2024 04/27/2023, 12/09, 04/15/2022, Additional history exists Diabetic Eye Exam 05/06/2024 05/06/2023, , 01/21/2022, Additional history exists HbA1c 05/09/2024 11/09/2023, 08/0 06/2023, 04/27/2023, Additional history exists GFR 11/09/2024 11/09/2023, 08/0 06/2023, 05/12/2023, Additional history exists PAP SMEAR-EVERY 3 YRS,AGES 18-100 09/09/2026 09/09/2023, 12/12/2021, 12/20/2015, Additional history exists COLONOSCOPY-EVERY 5 YRS AGES 18-100 06/03/2027 06/03/2022, 06/03/2022, 12/16/2016, Additional history exists Lipid Panel 12/25/2027 12/25/2022, 07/09, 01/06/2021, Additional history exists DTaP,Tdap,and Td Vaccines (4 - Td or Tdap) 09/24/2031 09/24/2021, 10/26/2019, 02/28/2009 GARDASIL-HPV IMMUNIZATION SERIES Aged Out No longer eligible based on patient's age to complete this topic MENINGOCOCCAL (MENACTRA/MENVEO) Aged Out No longer eligible based on patient's age to complete this topic Zoster Vaccines Discontinued documented as of this encounter Medical Devices Implanted Type Area Janitor And Cleaner Device Identifier Shelf Expiration Date Model / Serial / Lot Lens Intraoc 21.0 - [id number] - [id number] Implanted:Qty : 1 on 07/06/2017 by Luis Eduardo Cole MD at OR [facility] Left: Eye BAUSCH [employer] LOMB 01/05/2022 [id number] / [id number] / Lens Intraoc 21.0 - [id number] - [id number] Implanted:Qty : 1 on 07/20/2017 by Luis Eduardo Cole MD at OR [facility] Right: Eye [employer] 01/05/2022 [id number] / [id number] / Syringe Prolaryn Del 1.0cc - [id number] Implanted:Qty : 1 on 11/20/2019 by Amber Jain MD at [place] [facility] Right: Mouth [employer] 10/21/2021 [id number] / / [id number] Implant Silastic 7 Silicone Sw - [id number] Implanted:Qty : 1 on 05/28/2020 by Farhat Pate MD at [place] [facility] Right: Throat [employer] [id number] / / documented as of this encounter Visit Diagnoses Diagnosis Dyslipidemia, goal LDL below 70 Other and unspecified hyperlipidemia Monoclonal paraproteinemia documented in this encounter Advance Directives Latest [...] and were consensually agreed upon. Care Teams Charging Operator Relationship Specialty Start Date End Date Ivonne French PA-C [address] [place] [address] PCP - General Physician Refueling Rampman 07/24/21 documented as of this encounter
--- OUTSIDE RECORDS SUMMARY | 2024-01-29 21:40 | External Medical Summary | Summary of Care ---
Author Name Unknown Organization [facility] Address [address] [facility] [place] [address] Phone [phone] Care Team Providers Care Psychotherapist Social Worker Name Role Phone Ivonne French PA-C Primary Care Provider [phone] Reason for Visit * Reason Comments Follow Up Encounter Details Date Type Department Care Team (Late st Contact Info) Description 11/12/2023 9:30 AM EST Office Visit Cardiology, [facility] [address] [facility] [place] [address] Christian Cardenas PA-C [address] [place] [address] Coronary artery disease involving [place] coronary artery of [place] heart without angina pectoris*; HTN, goal below 130/80; Abnormal LFTs (liver function tests); Dyslipidemia, goal LDL below 70 Allergies Active Allergy Reactions Criticality Noted Date Comments Adhesive Tape 04/21/2016 Glue off the old style medical tape. documented as of this encounter (statuses as of 11/12/2023) Medications Medication Sig Dispensed Refills Start Date [...] EVENING MEALS 180 Tablet 1 05/25/2023 Active tastytrade Delica Lancets 33G Use to test blood sugar three times daily E 11.9 300 Each 05/25/2023 Active BitLitTouch Verio w/Device Kit Use up to 3 times a day E11.9 1 Kit 0 05/25/2023 Active Pen Benton 32G X 4 MM Use as directed. [...] Additional Information Patient not taking.Reported on 11/12/2023 tastytrade Verio In Vitro Strip (Glucose Blood) Use [...] Hour (toPROL XL)Indications:Cor onary artery disease involving qu[place] coronary artery of [place] heart without angina pectoris Take 1.5 Tablets [...] as of this encounter (statuses as of 11/12/2023) Active Problems Problem Noted Date Diagnosed Date [...] as of this encounter (statuses as of 11/12/2023) Resolved Problems Problem Noted Date Diagnosed Date [...] as of this encounter (statuses as of 11/12/2023) Immunizations Name Administration Dates Next Due COVID-19 [...] Sign Reading Time Taken Comments Blood Pressure 124/66 11/12/2023 9:19 AM EST Pulse 72 11/12/2023 9:19 AM EST Temperature - - Respiratory Rate 16 11/12/2023 9:19 AM EST Oxygen Saturation - - Inhaled Oxygen Concentration - - Weight 89.8 kg (198 lb) 11/12/2023 9:19 AM EST Height - - Body Mass Index 30.11 11/09/2023 2:33 PM EST documented in this [...] Progress Notes * Christian Cardenas PA-C - 11/12/2023 9:30 AM EST History of Present Illness: Juany Resendez is a 58 year old female who returns today for routine cardiology follow-up Down. Two deaths since the new year. Following with Josie Sahu at [place] monthly. Chronic chest pain - rare heaviness (one resting episode last week) and occasional little pinches also rest. No significant activity related chest pain. No recent sublingual nitroglycerin use. Patient not particularly concerned, notes "not wanting to hide anything from you." No tachypalpitations, occasionally feeling the heart beat in her head. No unusual shortness of breath. No recent lightheadedness/dizziness with quick positional changes. No near syncope or syncope. No fluid retention since the summer. No epistaxis, hemoptysis, melena, hematochezia, or hematuria. Scheduled for left greater toe amputation on 11/15/[address] Franklin. Past Medical and Surgical History ASCVD Abnormal [...] with associated laceration and open fracture, healed. Patient Active Problem List Diagnosis Code Depressive disorder F32.A ADVANCE DIRECTIVE INFORMATION Idiopathic scoliosis M41.20 Diabetic neuropathy ([facility]) E11.40 Gastroparesis K31.84 History of thyroid cancer Z85.850 Non-toxic multinodular goiter E04.2 Postsurgical hypothyroidism E89.0 OBESITY, BMI 30-34 (SEE ACTUAL BMI) E66.9 family history ovarian cancer (mother) Z84.81 Enchondroma of femur D16.20 Herpes simplex type 1 antibody positive B00.9 Compulsive eating patterns F50.9 NBA (generalized anxiety disorder) F41.1 Herpes simplex virus infection B00.9 Diabetic retinopathy associated with diabetes mellitus due to underlying condition ([facility]) E08.319 Vocal fold paralysis, 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 Major depressive disorder, single episode, mild ([facility]) F32.0 Diabetic polyneuropathy associated with type 2 diabetes mellitus ([facility]) E11.42 Gastroesophageal reflux disease K21.9 HNP (herniated nucleus pulposus), cervical M50.20 Hyperlipidemia E78.5 Hyperthyroidism E05.90 S/P foot surgery, right Z98.890 Toe amputee ([facility]) Z89.429 MEDICATION USE AGREEMENT [id number] Varicose veins of both lower extremities I83.93 Osteomyelitis of great toe of left foot ([facility]) M86.9 Past Medical History: Diagnosis Date Diabetic neuropathy ([facility]) DM type 2, not at goal ([facility]) Enchondroma of femur left Family history of carrier of genetic disease History of thyroid cancer 10/2009 microcarcinoma right lobe Mild nonproliferative diabetic retinopathy of both eyes without macular edema ([facility]) Non-toxic multinodular goiter 12/09/[address] dx was Nodular hyperplasia Obsessive-compulsive disorder Paralytic ptosis of left eyelid Postsurgical hypothyroidism 12/09/2009 Pseudophakia OU Regular astigmatism of both eyes Vocal fold paralysis, right 10/09/2019 Post op Past Surgical History: Procedure Laterality Date AMPUTATION OF TOE Left tip of great toe COLONOSCOPY W/ BIOPSY (RECTUM) 04/14/2010 bxs COLONOSCOPY, DIAGNOSTIC (RECTUM) 12/16/2016 adenomatous polyps, repeat 5 yrs/[facility] COLONOSCOPY, DIAGNOSTIC (RECTUM) 06/03/2022 diverticulosis, fair prep, repeat 5 yrs / [facility] EGD, FLEXIBLE, DIAGNOSTIC 12/16/2016 normal bx/[facility] EGD, FLEXIBLE, W/BIOPSY 07/30/2010 esophagitis, await BX LARYNGOPLASTY MEDIALIZATION UNILATERAL Right 05/28/2020 LARYNGOPLASTY, MEDIALIZATION UNILATERAL performed by Farhat Pate MD at [facility] LARYNGOSCOPY, VOCAL CORD INJECTION Right 11/20/2019 LARYNGOSCOPY DIRECT INJECTION VOCAL CORD WITH MICROSCOPE performed by Amber Jain MD at [facility] MISCELLANEOUS ORDER ([facility] ONLY) Bilateral 11/24/2017 Reinheimer-bleph/levators-ou OTHER (3 times) 8 inch benign tumor removed from L femur; regrew x 3 OTHER Removal of a benign LN from L axilla REMOVAL OF THYROID GLAND 10/23/2009 total thyroidectomy 10/23/09, [facility], Dr. Vazquez REMOVE CATARACT, INSERT LENS PROSTH Right 07/20/2017 right EXTRACAPSULAR CATARACT REMOVAL WITH INTRAOCULAR LENS performed by Luis Eduardo Cole MD at OR [facility] REMOVE CATARACT, INSERT LENS PROSTH Left 07/06/2017 left EXTRACAPSULAR CATARACT REMOVAL WITH INTRAOCULAR LENS performed by Luis Eduardo Cole MD at [facility] REMOVE GALLBLADDER 2005 or so Family History: Father with an ND at 60. Mother at 75 with ovarian cancer. Two brothers with diabetes mellitus. Two children without cardiac issues. Social History: Nonsmoker. No alcohol. No illegal drug use. . Two children. [place]. Daughter lives in [place]. Three grandchild (daughter). Disabled. Lives alone. Complete [...] mouth in the morning. 180 Capsule 0 Melatonin 10 MG Oral Capsule Take 1 Capsule by mouth at bedtime. 100 Capsule 3 metFORMIN HCl 1000 MG Oral Tablet (Glucophage) TAKE ONE TABLET BY MOUTH TWICE A DAY WITH MORNING AND EVENING MEALS 180 Tablet 1 Triamcinolone Acetonide 0.1 % External Ointment (Aristocort) [...] mouth in the morning. 90 Tablet 3 Lactulose 10 GM/15ML Oral Solution (Constulose) Take 30 mL by mouth in the morning and 30 mL at noon and 30 mL before bedtime. (Patient not taking: Reported on 11/12/2023) 240 mL 0 PayClipica Lancets 33G Use to test blood sugar three times daily E 11.9 300 Each 5 TriplePulseio w/Device Kit Use up to 3 times a day E11.9 1 Kit 0 Pen Benton 32G X 4 MM Use as directed. Use to inject insulin 4 times daily 100 Each 5 Furosemide 20 MG Oral Tablet (Lasix) Take 1 Tablet by mouth once a day on Wednesday, Wednesday, and Wednesday only. (Patient not taking: Reported on 11/12/2023) 90 Tablet 3 OneTouch Verio In Vitro Strip (Glucose Blood) Use up to 3 times a day E11.9 100 Strip 11 No current facility-administered medications for this visit. OBJECTIVE/PHYSICAL EXAMINATION: BP 124/66 | Pulse 72 | Resp 16 | Wt 89.8 kg (198 lb) | LMP 09/08/2016 | BMI 30.11 kg/m | BSA 2.08m General: Alert, no distress, comfortable and cooperative Skin: No rash Eyes: PER. Conjunctiva pink, sclera clear. HENT: Normocephalic. Atraumatic. Neck: No carotid bruits. No JVD. No HJR. Heart: RRR, 72 bpm. No murmur. No rub. No gallop. Lungs: Clear to auscultation Abdomen: +BS. Soft. Nontender. No masses. No organomegaly. Extremities: No edema. No clubbing. No cyanosis. Pulses: radial=2/4, posterior tibial=1/4. Limited neurological examination: No focal deficit. Data: ZIO monitor was obtained April 08, 2022 to April 14, 2022, demonstrating sinus as a predominant rhythm with an average heart rate of 79 bpm. Minimum heart rate was 62 bpm. Maximum heart rate was 146 bpm.One asymptomatic episode of SVT was observed lasting 12.8 seconds. Rare atrial and ventricular ectopy observed. Symptoms noted to correlate with sinus rhythm. Chest CTA negative for PE or acute intrathoracic findings on June 16, 2022 December 03, 2022 TTE Interpretation Summary ([facility], Dr. Michael): Normal size left ventricle. Normal LV systolic function. Ejection fraction 55 to 60%. RV not well visualized. RV systolic function qualitatively normal. Normal left atrial size. Normal right atrial size. Grade 2 diastolic dysfunction. Mild aortic valve sclerosis without significant aortic valve stenosis. EKG performed on May 12, 2023 revealed normal sinus rhythm at 77 bpm with a chronic right bundle branch block. When compared to prior available tracings, there is no significant change. ASSESSMENT AND RECOMMENDATIONS/PLAN: ASCVD. Seemingly stable. Titration of Imdur offered and declined. Continue appropriate medical management. Hypertension. Controlled. Chronic right bundle branch block. Asymptomatic. Dyslipidemia. LDL cholesterol 34 mg/ dL on December 25, 2022. Off rosuvastatin 40 mg/day from Februaryto May 2023. Abnormal LFTs, hepatic steatosis. Rosuvastatin resumed at the reduced dose of 20 mg/day in May 2023. LFTs normal in June 2023 and November 2023. Continue rosuvastatin at 20 mg/day. Update lipids when able. Preoperative cardiology consultation. Formal preoperative cardiology consultation not ordered though requested in PCPs documentation. Patient with pending left great toe amputation for pain and ? Osteomyelitis on 11/15/2023. Options and risks discussed with patient. In my opinion, further cardiac eval uation at this time would not reduce her perioperative risk. Okay to proceed if deemed necessary. Recommend performing the procedure under local anesthesia with uninterrupted perioperative continuation of aspirin, metoprolol, isosorbide, and amlodipine. Ms. Resendez states that she understands the proposed plan and verbally consents. Patient to call with any questions, concerns, etc. Cardiac follow-up in 6 months or as needed. ER with emergencies. Christian Cardenas PA-C Department of Cardiology I spent a total of 40-54 minutes (exact time 40 mins) on the date of service in preparation, delivery, and documentation of the care provided to Juany Resendez excluding any time spent in the performance of separately billed services. This chart was completed in part utilizing [employer] Speech Voice Recognition Software. Grammatical errors, random word insertions, prounoun errors, and incomplete sen tences are an occasional consequence of this system due to software limitations, ambient noise, andhardware issues. Any formal questions or concerns about the content, text, or information containedwithin the body of this dictation should be directly addressed to the provider for clarification. documented in this encounter Nursing Notes * Laz Richmond RN - 11/12/2023 9:18 AM EST Examination Room: room 3 Name: Juany M Mal Date of : (1965). Reason for Visit: for follow had some chest heaviness last week fup Interim Hospitalization(s): denies Problems/Concerns: denies Chest Pain/SOB: had sos chest heaviness last week. Did not last long, denies shortness of braeth orDOE [facility] Discussed: Not applicable [facility] is a way you can talk to your provider online through e-mail. Would you like to sign up? I can activate it for you? ALREADY ACTIVE Patient was instructed to not get up [...] Care Team (Latest Contact Info) Description 11/15/2023 10:57 AM EST Hospital Encounter OR [facility], Operating Room, [facility] 1st Floor [address] [place] [address] Nayan Franklin [address] [address] 11/15/2023 10:57 AM EST - 11/15/2023 12:05 PM EST Surgery OR [facility], Operating Room, [facility] 1st Floor [address] [place] [address] Nayan Franklin [address] [address] AMPUTATION TOE METATARSOPHALANGEAL JOINT 11/19/2023 8:00 AM EST [facility] [address] [facility] [place] [address] [facility] [place] [address] 11/23/2023 1:00 PM EST Office Visit Podiatry [address] [place] [phone] Nayan Franklin, DPM [address] [place] [address] 11/26/2023 9:15 AM EST Office Visit Podiatry [facility] [place] [address] [facility] [address] [place] [phone] Nayan Franklin, DPM [address] [place] [address] 12/16/2023 11:20 AM EST Office Visit Family [facility] [place] [address] [place] [address] Ivonne French PA-C [address] [place], [place] [phone] 12/16/2023 1:45 PM EST Office Visit Hematology/Oncolo gy [facility] [address] [place] [address] Shon Rice MD [address] [place] [address] 12/23/2023 1:00 PM EST Office Visit Neurology, [place] [address] [place] [phone] Oralia Glass MD [address], [place] [phone] 01/07/2024 10:00 AM EST Office Visit Family [facility] [place] [address] [place] [address] Ivonne French PA-C [address] [place] [address] 01/31/2024 9:00 AM EDT Imaging Radiology [address], [place] [address] [facility] [place] [address] 02/10/2024 11:40 AM EDT Office Visit [facility] [address] [facility] [place] [phone] Ivonne French PA-C [address] [place] [address] 05/10/2024 8:15 AM EDT Office Visit Ophthalmology, [place] [address] [place] [address] Migel Ramires MD [address] [place] [address] Scheduled Orders Name Type Priority Associated Diagnoses Orde r Schedule LIPID PANEL WITH DIRECT LDL IF TG IS HIGH Lab Routine Dyslipidemia, goal LDL below 70 Expected: 11/13/2023, Expires: 11/12/2024 Scheduled Procedures Name Priority Associated Diagnoses Date/Ti me AMPUTATION TOE METATARSOPHALANGEAL JOINT Osteomyelitis of great toe of left foot (HCC) 11/15/2023 10:57 AM EST COLONOSCOPY FLEXIBLE PROXIMA L DIAGNOSTIC Recall History of colon polyps Health [...] 10) 12/26/2022 12/25/2022 COVID-19 Vaccine (3 - 2022-24 season) 2023 08/19/2021, 07/22/2021 Influenza Vaccine (FLU shot) (#1) 2023 Diabetic Foot Exam 11/24/2023 11/24/2022, 0 07/22/2021, 07/03/2020, Additional history exists Albumin/Creatinine Ratio 12/25/2023 023, 09/16/2022, 12/12/2021, Additional history exists B-12 12/25/2023 12/25/2022, 06/0 [...] this encounter Medical Devices Implanted Type Area Puppet Maker Device Identifier Shelf Expiration Date Model / Serial / Lot Lens Intraoc 21.0 - [id number] - [id number] Implanted:Qty : 1 on 07/06/2017 by Luis Eduardo Cole MD at OR [facility] Left: Eye [employer] 01/05/2022 [id number] / [id number] / Lens Intraoc 21.0 - [id number] - [id number] Implanted:Qty : 1 on 07/20/2017 by Luis Eduardo Cole MD at OR [facility] Right: Eye [employer] LOMB 01/05/2022 [id number] / [id number] / Syringe Prolaryn Del 1.0cc - [id number] Implanted:Qty : 1 on 11/20/2019 by Amber Jain MD at [place] [facility] Right: Mouth [employer] 10/21/2021 [id number] / / [id number] Implant Silastic 7 Silicone Sw - [id number] Implanted:Qty : 1 on 05/28/2020 by Farhat Pate MD at [place] [facility] Right: Throat [employer] [id number] / / documented as of this encounter Visit Diagnoses Diagnosis Coronary artery disease involving [place] coronary artery of [place] heart without angina pectoris- Primary HTN, goal below 130/80 Unspecified essential hypertension Abnormal LFTs (liver function tests) Other abnormal blood chemistry Dyslipidemia, goal LDL below 70 Other and unspecified hyperlipidemia Osteomyelitis of great toe of left foot (HCC) documented in this encounter Advance Directives [...] and were consensually agreed upon. Care Teams Psychotherapist Social Worker Relationship Specialty Start Date End Date Ivonne French PA-C [place] [address] PCP - General Physician Motor Equipment Commanding Officer 07/24/21 documented as of this encounter
--- OUTSIDE RECORDS SUMMARY | 2024-01-29 21:40 | External Medical Summary | Summary of Care ---
Author Name Unknown Organization [facility] Address [address] [place] [address] Phone [phone] Care Team Providers Care Study Specialist Name Role Phone Ivonne French PA-C Primary Care Provider [phone] Reason for Visit * Reason Comments Outpatient Testing Encounter Details Date Type Department Care Team (Latest Contact Info) Description 11/15/2023 12:50 PM EST Laboratory Laboratory, [place] [address] [place] [address] [place], Laboratory [address] [place] [address] Dyslipidemia, goal LDL below 70; [...] EVENING MEALS 180 Tablet 1 05/25/2023 Active Nanotech SecurityTouch Delica Lancets 33G Use to test blood sugar three times daily E 11.9 300 Each 05/25/2023 Active OneTouch Verio w/Device Kit Use up to 3 times a day E11.9 1 Kit 0 05/25/2023 Active Pen Hamilton 32G X 4 MM Use as directed. [...] of marshall heart without angina pectoris Take 1.5 Tablets [...] 11/19/2023 8:00 AM EST Office Visit Pharmacy, [facility] [address] [facility] [place] [address] [facility] [address] [place] [address] 12/16/2023 11:20 AM EST Office Visit [facility] [place] [address] [facility] [place] [phone] Ivonne French [facility]-C [address] [facility] [address] 12/16/2023 1:45 PM EST Office Visit Hematology/On[facility] [address] [facility] [place] [address] Shon Rice MD [address] [facility] [place] [address] 12/23/2023 1:00 PM EST Office Visit Neurology, [place] [address] [place] [phone] Oralia Glass MD [address] [place] [address] 01/07/2024 10:00 AM EST Office Visit [facility] [place] [address] [facility] [place] [phone] Ivonne French PA-C [address] [facility] [address] 01/31/2024 9:00 AM EDT Imaging Radiology [facility] [address] [facility] [address] [facility] [place] [address] 02/10/2024 11:40 AM EDT Office Visit [facility] [place] [address] [place] [phone] Ivonne French PA-C [address] [place] [address] 05/10/2024 8:15 AM EDT Office Visit Ophthalmology, [place] [address] [place] [address] Migel Ramires MD [address] [place] [address] Pending Results Name Type Priority Associated Diagnoses Date /Time LIPID PANEL WITH DIRECT LDL IF TG IS HIGH Lab Routine Dyslipidemia, goal LDL below 70 11/15/2023 1:05 PM EST CLINICIAN PERIPHERAL BLOOD SLIDE REQUEST Lab Routine Monoclonal paraproteinemia 11/15/2023 1:32 PM EST Scheduled Procedures Name Priority Associated [...] this encounter Medical Devices Implanted Type Area Educational Institution Curator Device Identifier Shelf Expiration Date Model / Serial / Lot Lens Intraoc 21.0 - [id number] - [id number] Implanted:Qty : 1 on 07/06/2017 by Luis Eduardo Cole MD at OR [facility] Left: Eye [employer] 01/05/2022 [id number] / [id number] / Lens Intraoc 21.0 - [id number] - [id number] Implanted:Qty : 1 on 07/20/2017 by Luis Eduardo Cole MD at OR [facility] Right: Eye [employer] 01/05/2022 [id number] / [id number] / Syringe Prolaryn Del 1.0cc - [id number] Implanted:Qty : 1 on 11/20/2019 by Amber Jain MD at [place] [facility] Right: Mouth [employer] 10/21/2021 [id number] / / [id number] Implant Silastic 7 Silicone Sw - [id number] Implanted:Qty : 1 on 05/28/2020 by Farhat Pate MD at [place] [facility] Right: Throat [employer] [id number] / / documented as of this [...] and were consensually agreed upon. Care Teams Study Specialist Relationship Specialty Start Date End Date Ivonne French PA-C [address] [facility] [place] [address] PCP - General Physician Audit Consultant 07/24/21 documented as of this encounter
--- OUTSIDE RECORDS SUMMARY | 2024-01-29 21:40 | External Medical Summary | Summary of Care ---
Author Name Unknown Organization [facility] Address [address] [address] Phone [phone] Care Team Providers Care Valve Liner Rubber Name Role Phone Ivonne French PA-C Primary Care Provider [phone] [phone] Reason for Visit * Reason Onset Date Comments Advice 11/12/2023 Encounter Details Date Type Department Care Team (Late st Contact Info) Description 11/12/2023 Telephone Podiatry, [place] [phone] [place] [address] Nayan Franklin DPM [address] [phone] Advice Allergies Active Allergy Reactions Criticality Noted Date [...] mellitus with hemoglobin A1c goal of 7.0%-8.0% ([facility]) TAKE ONE TABLET BY MOUTH TWICE A DAY WITH MORNING AND EVENING MEALS 180 Tablet 1 05/25/2023 Active [employer] Delica Lancets 33G Use to test blood sugar three times daily E 11.9 300 Each 05/25/2023 Active VringoTouch Verio w/Device Kit Use up to 3 times a day E11.9 1 Kit 0 05/25/2023 Active Pen Busby 32G X 4 MM Use as directed. [...] Additional Information Patient not taking.Reported on 11/12/2023 [employer] Verio In Vitro Strip (Glucose Blood) Use [...] Hour (toPROL XL)Indications:Cor onary artery disease involving [place] coronary artery of [place] heart without angina pectoris Take 1.5 Tablets [...] Telephone Encounter - Mounika Sepulveda LPN - 11/12/2023 4:57 PM EST Patient made aware and had no further questions. * Telephone Encounter - Ivonne French PA-C - 11/12/2023 3:44 PM EST Please notify patient Cbc was significantly abnormal; Need input of heme /onc Procedure on hold until heme weighs in Ask a doc sent Ivonne French PA-C 11/12/2023 3:47 PM * Telephone Encounter - Lalitha Roche OSA - 11/12/2023 10:37 AM EST Patient is scheduled to have Amputation of left great toe MPJ level this coming Wednesday11/15/23. Ptwas seen on 11/09/23 by PCP for H&P/PCP Clearance. Pt was cleared by PCP pending clearance by Cardiology. Pt was seen today 11/12/23 by Christian STOREY but there's no mention of Cardiac Clearance for surgery in the office note. Please update office note to advise if patient is cleared for surge ry for this coming Wednesday11/15/23. documented in this encounter Plan of Treatment Upcoming Encounters Date Type Department Care Team (Latest Contact Info) Description 11/15/2023 10:57 AM EST Hospital Encounter OR [facility], Operating Room, [facility] 1st Floor [address] [place] [address] Nayan Franklin DPM [address] [place] [address] 11/15/2023 10:57 AM EST - 11/15/2023 12:05 PM EST Surgery OR [facility], Operating Room, [facility] 1st Floor [address] [place] [address] Nayan Franklin DP [address] [place] [address] AMPUTATION TOE METATARSOPHALANGEAL JOINT 11/19/2023 8:00 AM EST Office Visit Pharmacy, [facility] [address] [place] [address] [facility] [address] [place] [address] 11/23/2023 1:00 PM EST Office Visit Podiatry [address] [place] [phone] Nayan Franklin, DP [address] [place] [address] 11/26/2023 9:15 AM EST Office Visit Podiatry [address] [place] [address] Nayan Franklin, [facility] [address] [place] [address] 12/16/2023 11:20 AM EST Office Visit Family [address] [phone] Ivonne French PA-C [address] [place] [address] 12/16/2023 1:45 PM EST Office Visit Hematology/Oncolo gy [facility] [place] [address] [place] [address] Shon Rice MD [address] [place] [address] 12/23/2023 1:00 PM EST Office Visit Neurology, [place] [address] [place] [address] Oralia Glass MD [address] [place] [address] 01/07/2024 10:00 AM EST Office Visit [facility], [place] [address] [facility] [phone] Ivonne French PA-C [address] [facility] [place] [phone] 01/31/2024 9:00 AM EDT Imaging Radiology [address], [place] [address] [facility] [address] 02/10/2024 11:40 AM EDT Office Visit [facility], [place] [address] [facility] [address] Ivonne French PA-C [address] [facility] [phone] 05/10/2024 8:15 AM EDT Office Visit Ophthalmology, [place] [address] [place] [address] Migel Ramires MD [address] [place] [address] Scheduled Procedures Name Priority Associated Diagnoses Date/Ti [...] this encounter Medical Devices Implanted Type Area Pan Reclaim Processor Device Identifier Shelf Expiration Date Model / Serial / Lot Lens Intraoc 21.0 - [id number] - [id number] Implanted:Qty : 1 on 07/06/2017 by Luis Eduardo Cole MD at OR [facility] Left: Eye BAUSCH & LOMB 01/05/2022 [id number] / [id number] / Lens Intraoc 21.0 - [id number] - [id number] Implanted:Qty : 1 on 07/20/2017 by Luis Eduardo Cole MD at OR [facility] Right: Eye BAUSCH & LOMB 01/05/2022 [id number] / [id number] / Syringe Prolaryn Del 1.0cc - [id number] Implanted:Qty : 1 on 11/20/2019 by Amber Jain MD at [place] [facility] [place] Right: Mouth [employer] 10/21/2021 [id number] / / [id number] Implant Silastic 7 Silicone Sw - [id number] Implanted:Qty : 1 on 05/28/2020 by Farhat Pate MD at [place] [facility] Right: Throat Imaginatik [id number] / / documented as of this [...] and were consensually agreed upon. Care Teams Valve Liner Rubber Relationship Specialty Start Date End Date Ivonne French PA-C [address] [facility] [place] [address] PCP - General Physician Boiler Tube Reamer 07/24/21 documented as of this encounter
--- OUTSIDE RECORDS SUMMARY | 2024-01-29 21:40 | External Medical Summary | Summary of Care ---
Author Name Unknown Organization [facility] Address [address] [place] [facility] [place] [address] Phone [phone] Care Team Providers Care Fire Services Plumber Name Role Phone Ivonne French PA-C Primary Care Provider [phone] Reason for Visit * Reason Comments Outpatient Testing Encounter Details Date Type Department Care Team (Late st Contact Info) Description 11/09/2023 3:10 PM EST Laboratory Laboratory, [place] [address] [place] [address] [place], Laboratory [address] [place], [place] [phone] [employer] Other*[id number]; Type 2 diabetes mellitus with hemoglobin A1c goal of 7.0%-8.0% ([facility]); Restless legs syndrome; Preoperative general physical examination; Other specified diabetes mellitus with diabetic peripheral angiopathy without gangrene, with long-term current use of insulin ([facility]); Essential hypertension with goal blood pressure less than 130/80 Allergies Active Allergy Reactions Criticality Noted Date Comments Adhesive Tape 04/21/2016 Glue off the old style medical tape. documented as of this encounter (statuses as of 11/09/2023) Medications Medication Sig Dispensed Refills Start Date [...] EVENING MEALS 180 Tablet 1 05/25/2023 Active [employer] Delica Lancets 33G Use to test blood sugar three times daily E 11.9 300 Each 05/25/2023 Active NanameueTouch Verio w/Device Kit Use up to 3 times a day E11.9 1 Kit 0 05/25/2023 Active Pen Cloudcroft 32G X 4 MM Use as directed. [...] Wednesday only. 90 Tablet 3 06/14/2023 Active NanameueTo[employer] Verio In Vitro Strip (Glucose Blood) Use [...] 10/12/2023 Active Linzess 72 MCG Oral Capsule (linaCLOtide)Indica tions:Drug-induced constipation Take 1 Capsule by mouth daily before breakfast. 90 Capsule 1 10/14/2023 Active Metoprolol Succinate ER 25 MG Oral Tablet Extended Release 24 Hour (toPROL XL)Indications:Craig nary artery disease involving [place] coronary artery of [place] heart without angina pectoris Take 1.5 Tablets [...] the morning. 90 Tablet 3 10/14/2023 Active documented as of this encounter (statuses as of 11/09/2023) Active Problems Problem Noted Date Diagnosed Date [...] as of this encounter (statuses as of 11/09/2023) Resolved Problems Problem Noted Date Diagnosed Date [...] as of this encounter (statuses as of 11/09/2023) Immunizations Name Administration Dates Next Due COVID-19 [...] Department Care Team (Latest Contact Info) Description 11/12/2023 9:30 AM EST Office Visit Cardiology, [facility] [address] [place] [address] Christian Cardenas PA-C [address] [place] [address] 11/15/2023 7:30 AM EST Hospital Encounter OR [facility], Operating Room, [facility] 1st Floor [address] [place] [address] Nayan Franklin DPM [address] [place] [address] 11/15/2023 7:30 AM EST - 11/15/2023 8:23 AM EST Surgery OR [facility], Operating Room, [facility] 1st Floor [address] [place] [address] Nayan Franklin DPM [address] [place] [address] AMPUTATION TOE METATARSOPHALANGEAL JOINT 11/19/2023 8:00 AM EST Office Visit Pharmacy, [facility] [address] [place] [address] [facility] [address] [place] [address] 11/23/2023 1:00 PM EST Office Visit Podiatry [address] [place] [address] Nayan Franklin DPM [address] [place] [address] 11/26/2023 9:15 AM EST Office Visit Podiatry [address] [place] [phone] Nayan Franklin DPM [address] [place] [address] 12/16/2023 11:20 AM EST [facility] [place] [address] [place] [address] Ivonne French PA-C [address] [place] [address] 12/16/2023 1:45 PM EST Office Visit Hematology/Oncolo gy [facility] [place] 200 [facility] [place], [place] [address] Shon Rice MD 200 [facility], [place] [address] 12/23/2023 1:00 PM EST Office Visit Neurology, [place] [address] [place] [address] Oralia Glass MD [address] [place] [address] 01/07/2024 10:00 AM EST Office Visit [facility] [address] [place] [phone] Ivonne French PA-C [address] [place] [address] 01/31/2024 9:00 AM EDT Imaging Radiology [address] 132 [facility] [place] [address] 02/10/2024 11:40 AM EDT [facility] Visit [facility], [place] [address] [place] [address] Ivonne French PA-C [address] [facility] [place] [phone] 05/10/2024 8:15 AM EDT Office Visit Ophthalmology, [place] [address] [place] [address] Migel Ramires MD [address] [place] [address] Pending Results Name Type Priority Associated Diagnoses Date /Time MYCODE SUBSEQUENT ADULT Lab Routine MyCode Research Other*[id number] 11/09/2023 3:17 PM EST HEMOGLOBIN A1C Lab Routine Type 2 diabetes mellitus with hemoglobin A1c goal of 7.0%-8.0% ([facility]) 11/09/2023 3:17 PM EST LIPASE Lab Routine Type 2 diabetes mellitus with hemoglobin A1c goal of 7.0%-8.0% ([facility]) 11/09/2023 3:17 PM EST CBC WITH WBC DIFFERENTIAL AND ANEMIA REFLEX WORKUP Lab Routine Restless legs syndrome 11/09/2023 3:17 PM EST PT INR Lab Routine Preoperative general physical examination Type 2 diabetes mellitus with hemoglobin A1c goal of 7.0%-8.0% ([facility]) Other specified diabetes mellitus with diabetic peripheral angiopathy without gangrene, with long-term current use of insulin ([facility]) 11/09/2023 3:17 PM EST COMPREHENSIVE METABOLIC PANEL Lab Routine Essential hypertension with goal blood pressure less than 130/80 Type 2 diabetes mellitus with hemoglobin A1c goal of 7.0%-8.0% ([facility]) 11/09/2023 3:17 PM EST MYCODE SST1 Lab Routine MyCode Research Other*[id number] 11/09/2023 3:17 PM EST MYCODE SST2 Lab Routine MyCode Research Other*[id number] 11/09/2023 3:17 PM EST ANEMIA CBC Lab Routine Restless legs syndrome 11/09/2023 3:17 PM EST DIFFERENTIAL, AUTOMATED Lab Routine Restless legs syndrome 11/09/2023 3:17 PM EST ANEMIA REFLEX CHEMISTRY HOLD Lab Routine Restless legs syndrome 11/09/2023 3:17 PM EST Scheduled Procedures Name Priority Associated Diagnoses Date/Ti me AMPUTATION TOE METATARSOPHALANGEAL JOINT Osteomyelitis of great toe of left foot ([facility]) 11/15/2023 7:30 AM EST COLONOSCOPY FLEXIBLE PROXIMA L DIAGNOSTIC [...] 11/24/2022, 0 07/22/2021, 07/03/2020, Additional history exists HbA1c 12/16/2023 06/15/2023, 04/09, 12/25/2022, Additional history exists Albumin/Creatinine Ratio 12/25/2023 023, 09/16/2022, 12/12/2021, Additional history exists B-12 12/25/2023 12/25/2022, 06/0 06/2022, 07/23/2021, Additional history exists Mammogram 01/28/2024 01/27/2023, 01/07, 08/03/2022, Additional history exists TSH 04/27/2024 04/27/2023, 12/09, 04/15/2022, Additional history exists Diabetic Eye Exam 05/06/2024 05/06/2023, , 01/21/2022, Additional history exists GFR 06/15/2024 06/15/2023, 07/0 03/2023, 02/22/2023, Additional history exists PAP SMEAR-EVERY 3 YRS,AGES [...] this encounter Medical Devices Implanted Type Area Timber Treatment Plant Operator Device Identifier Shelf Expiration Date Model / Serial / Lot Lens Intraoc 21.0 - [id number] - [id number] Implanted:Qty : 1 on 07/06/2017 by Luis Eduardo Cole MD at OR [facility] Left: Eye BAUSCH & LOMB 01/05/2022 [id number] / [id number] / Lens Intraoc 21.0 - [id number] - [id number] Implanted:Qty : 1 on 07/20/2017 by Luis Eduardo Cole MD at OR [facility] Right: Eye BAUSCH & LOMB 01/05/2022 [id number] / [id number] / Syringe Prolaryn Del 1.0cc - [id number] Implanted:Qty : 1 on 11/20/2019 [place] Amber J[place] [facility] [place]: Mouth [employer] 10/21/2021 [id number] / / [id number] Implant Silastic 7 Silicone Sw - [id number] Implanted:Qty : 1 on 05/28/2020 by Farhat Pate [place] [facility] [place]: Throat [employer] [id number] / / documented as of this encounter Visit Diagnoses Diagnosis MyCode Research Other*[id number] Type 2 diabetes mellitus with hemoglobin A1c goal of 7.0%-8.0% (HCC) Restless legs syndrome Restless legs syndrome (RLS) Preoperative general physical examination Other specified pre-operative examination Other specified diabetes mellitus with diabetic peripheral angiopathy without gangrene, with long-term current use of insulin (HCC) Essential hypertension with goal blood pressure less than 130/80 Osteomyelitis of great toe of left foot [...] and were consensually agreed upon. Care Teams Fire Services Plumber Relationship Specialty Start Date End Date Ivonne French PA-C [address] [place] [address] PCP - General Physician Senior Health Physics Technician 07/24/21 documented as of this encounter
--- OUTSIDE RECORDS SUMMARY | 2024-01-29 21:40 | External Medical Summary | Summary of Care ---
Author Name Unknown Organization [facility] Address [address] [facility] [address] Phone [phone] Care Team Providers Care Bander And Cellophaner Machine Name Role Phone Ivonne French PA-C Primary Care Provider [phone] Reason for Visit * Reason Onset Date Comments Advice 11/12/2023 Encounter Details Date Type Department Care Team (Late st Contact Info) Description 11/12/2023 Telephone Podiatry, [place] [address] [place] [address] Nayan Franklin DPM [address] [phone] Advice Allergies Active Allergy Reactions Criticality Noted [...] EVENING MEALS 180 Tablet 1 05/25/2023 Active [employer] Delica Lancets 33G Use to test blood sugar three times daily E 11.9 300 Each 05/25/2023 Active Avalon Solutions GroupTouch Verio w/Device Kit Use up to 3 times a day E11.9 1 Kit 0 05/25/2023 Active Pen Des Lacs 32G X 4 MM Use as directed. [...] Additional Information Patient not taking.Reported on 11/12/2023 [employer] Verio In Vitro Strip (Glucose Blood) Use [...] Hour (toPROL XL)Indications:Cor onary artery disease involving [place] coronary artery of [place] heart without angina pectoris Take 1.5 Tablets [...] encounter Miscellaneous Notes * Telephone Encounter - Lalitha Roche OSA - 11/15/2023 7:09 AM EST Pt not cleared for surgery due to lab results - please cancel pt for today 11/15/23 * Telephone Encounter - Mounika Sepulveda LPN [...] 11/19/2023 8:00 AM EST Office Visit Pharmacy, [facility] [address] [place] [address] [address] [place] [address] 11/23/2023 1:00 PM EST Office Visit Podiatry [address] [place] [address] Nayan Franklin, [facility] [address] [place] [address] 11/26/2023 9:15 AM EST Office Visit Podiatry [address] [place] [phone] Nayan Franklin, [facility] [address] [place], [place] [address] 12/16/2023 11:20 AM EST Office Visit [address] [phone] Ivonne French PA-C [address] [place], [place] [phone] 12/16/2023 1:45 PM EST Office Visit Hematology/Oncology [facility] 200 [place] [address] Shon Rice MD 200 [place] [address] 12/23/2023 1:00 PM EST Office Visit Neurology, [place] [address] [place] [address] Oralia Glass MD [address] [place] [address] 01/07/2024 10:00 AM EST Office Visit [place] [address] [place] [phone] Ivonne French PA-C [address] [place], [place] [phone] 01/31/2024 9:00 AM EDT Imaging Radiology [facility] 1[address] [facility], [place] [address] [place] [address] 02/10/2024 11:40 AM EDT Office Visit Family [facility], [place] [address] [facility] [phone] Ivonne French PA-C [address] [facility], [place] [address] 05/10/2024 8:15 AM EDT Office Visit Ophthalmology, [place] [address] [place] [address] Migel Ramires MD [address] [place] [address] Scheduled Procedures Name Priority Associated Diagnoses Date/Ti [...] 12/12/2021, Additional history exists B-12 12/25/2023 12/25/2022, 060 [...] this encounter Medical Devices Implanted Type Area Digital Media Representative Device Identifier Shelf Expiration Date Model / Serial / Lot Lens Intraoc 21.0 - [id number] - [id number] Implanted:Qty : 1 on 07/06/2017 by Luis Eduardo Cole MD at [facility] Left: Eye BAUSCH & LOMB 01/05/2022 [id number] / [id number] / Lens Intraoc 21.0 - [id number] - [id number] Implanted:Qty : 1 on 07/20/2017 by Luis Eduardo Cole MD at OR [facility] Right: Eye BAUSCH & LOMB 01/05/2022 [id number] / [id number] / Syringe Prolaryn Del 1.0cc - [id number] Implanted:Qty : 1 on 11/20/2019 by Amber Jain MD [place] [facility] [place] Right: Mouth [employer] 10/21/2021 [id number] / / [id number] Implant Silastic 7 Silicone Sw - [id number] Implanted:Qty : 1 on 05/28/2020 by Farhat Pate MD [place] [facility] Right: Throat Qianmi [id number] / / documented as of this [...] and were consensually agreed upon. Care Teams Bander And Cellophaner Machine Relationship Specialty Start Date End Date Ivonne French PA-C [address] [facility] [place] [address] PCP - General Physician Dental Mechanic 07/24/21 documented as of this encounter
--- OUTSIDE RECORDS SUMMARY | 2024-01-29 21:40 | External Medical Summary | Summary of Care ---
Author Name Unknown Organization [facility] Address [address] [facility] [address] Phone [phone] Care Team Providers Care Corrosion Control Technician Name Role Phone Ivonne French PA-C Primary Care Provider [phone] Reason for Visit * Reason Onset Date Comments Advice 11/12/2023 Encounter Details Date Type Department Care Team (Late st Contact Info) Description 11/12/2023 Telephone Podiatry, [place] [address] [place] [address] Nayan Franklin DPM [address] [place] [phone] Advice Allergies Active Allergy Reactions Criticality Noted [...] hemoglobin A1c goal of 7.0%-8.0% ([facility]) TAKE ONE TABLET BY MOUTH TWICE A DAY WITH MORNING AND EVENING MEALS 180 Tablet 1 05/25/2023 Active [employer] Delica Lancets 33G Use to test blood sugar three times daily E 11.9 300 Each 05/25/2023 Active VitrinepixTouch Verio w/Device Kit Use up to 3 times a day E11.9 1 Kit 0 05/25/2023 Active [place] 32G X 4 MM Use as directed. [...] Additional Information Patient not taking.Reported on 11/12/2023 [employer] Verio In Vitro Strip (Glucose Blood) Use [...] Hour (toPROL XL)Indications:Cor onary artery disease involving [place] coronary artery of [place] heart without angina pectoris Take 1.5 Tablets [...] encounter Miscellaneous Notes * Telephone Encounter - Ivonne French PA-C [...] 11/15/2023 10:57 AM EST Hospital Encounter OR [facility], Operating Room, [facility] 1st Floor [address] [place] [address] Nayan Franklin DPM [address] [place] [address] 11/15/2023 10:57 AM EST - 11/15/2023 12:05 PM EST Surgery OR G[facility], Operating Room, [facility] 1st Floor [address] [place] [address] Nayan Franklin DPM [address] [place] [address] AMPUTATION TOE METATARSOPHALANGEAL JOINT 11/19/2023 8:00 AM EST Office Visit Pharmacy, [address] [place] [address] [facility] 132 [facility] [place] [address] 11/23/2023 1:00 PM EST Office Visit Podiatry [address] [place] [phone] Nayan Franklin, [facility] [address] [place] [address] 11/26/2023 9:15 AM EST Office Visit Podiatry [address] [place] [address] Nayan Franklin, [facility] [address] [place] [address] 12/16/2023 11:20 AM EST Office Visit [address] [phone] Ivonne French PA-C [address] [place] [address] 12/16/2023 1:45 PM EST Office Visit Hematology/Oncolo gy [facility] 200 [place] [address] Shon Rice MD 200 [place] [address] 12/23/2023 1:00 PM EST Office Visit Neurology, [place] [address] [place] [address] Oralia Glass MD [address] [place] [address] 01/07/2024 10:00 AM EST Office Visit [address] [phone] Ivonne French PA-C [address] [facility] [address] 01/31/2024 9:00 AM EDT Imaging Radiology [address], [place] [address] [place] [address] 02/10/2024 11:40 AM EDT Office Visit Family Practice, [place] [address] [facility] [phone] Ivonne French PA-C [address] [facility] [address] 05/10/2024 8:15 AM EDT Office Visit Ophthalmology, [place] [address] [place] [address] Migel Ramires MD [address] [place] [address] Scheduled Procedures Name Priority Associated Diagnoses Date/Ti [...] this encounter Medical Devices Implanted Type Area Groover Operator Device Identifier Shelf Expiration Date Model / Serial / Lot Lens Intraoc 21.0 - [id number] - [id number] Implanted:Qty : 1 on 07/06/2017 by Luis Eduardo Cole MD at OR [facility] Left: Eye BAUSCH & LOMB 01/05/2022 [id number] / [id number] / Lens Intraoc 21.0 - [id number] - [id number] Implanted:Qty : 1 on 07/20/2017 by Luis Eduardo Cole MD at OR [facility] Right: Eye BAUSCH & LOMB 01/05/2022 [id number] / [id number] / Syringe Prolaryn Del 1.0cc - [id number] Implanted:Qty : 1 on 11/20/2019 [place] [facility] [place] Mouth [employer] 10/21/2021 [id number] / / [id number] Implant Silastic 7 Silicone Sw - [id number] Implanted:Qty : 1 on 05/28/2020 [place] Farhat P[place] [facility]: Throat FoodText [id number] / / documented as of this [...] and were consensually agreed upon. Care Teams Corrosion Control Technician Relationship Specialty Start Date End Date Ivonne French PA-C [address] [facility] [place] [address] PCP - General Physician Vermin Exterminator 07/24/21 documented as of this encounter
--- OUTSIDE RECORDS SUMMARY | 2024-01-29 21:40 | External Medical Summary ---
Author Name Unknown Address Unknown Organization K01:[facility] [place] [address] [place] [address] Laboratory Report Ordering Provider Test Date Status RUSH BELL 11/15/2023 13:05:23 Final Observation Date Value Abnormality Reference (Units ) Status LDL, (direct) 11/15/2023 13:05:23 142 Above high oziel l <=129 (mg/dL) Final LDL Cholesterol Reference Ra nges (mg/dL):
<70 Target level for high risk ASCVD patient
<100 Optimal for general population
100-129 Near optimal for general population
130-159 Borderline high
160-189 High
>=190 Very high Performing Location [facility] - [address] [place] [address]
--- OUTSIDE RECORDS SUMMARY | 2024-01-29 21:40 | External Medical Summary | Summary of Care ---
Author Name Unknown Organization [facility] Address [address] [place] [place] [address] Phone [phone] Care Team Providers Care Certified Medical Asst Name Role Phone Ivonne French PA-C Primary Care Provider [phone] [phone] Reason for Visit * Reason Comments Outpatient Testing Encounter Details Date Type Department Care Team (Late st Contact Info) Description 11/15/2023 12:50 PM EST Laboratory Laboratory, [place] [address] [place] [address] [place], [facility] [address] [place], [place] [phone] Dyslipidemia, goal LDL below 70 Allergies Active [...] EVENING MEALS 180 Tablet 1 05/25/2023 Active tuta.coTouch Delica Lancets 33G Use to test blood sugar three times daily E 11.9 300 Each 05/25/2023 Active OneTouch Verio w/Device Kit Use up to 3 times a day E11.9 1 Kit 0 05/25/2023 Active Pen [place] 32G X 4 MM Use as directed. [...] Hour (toPROL XL)Indications:Cor onary artery disease involving sitka coronary artery of sitka heart without angina pectoris Take 1.5 Tablets [...] Office Visit Pharmacy, [facility] 132 [facility] [place] [address] [facility] [address] [place] [address] 12/16/2023 11:20 AM EST [facility] [address] [facility] [phone] Ivonne French PA-C [address] [facility] [address] 12/16/2023 1:45 PM EST Office Visit Hematology/Oncology [facility] 200 [facility] [place] [address] Shon Rice MD 200 [facility] [address] 12/23/2023 1:00 PM EST Office Visit Neurology, [place] [address] [place] [phone] Oralia Glass MD [address] [place] [address] 01/07/2024 10:00 AM EST [facility] [address] [facility] [phone] Ivonne French PA-C [address] [facility] [address] 01/31/2024 9:00 AM EDT Imaging Radiology [facility] 1st [facility] 132 [facility] [place] [address] 02/10/2024 11:40 AM EDT [facility] [address] [facility] [phone] Ivonne French PA-C [address] [place] [address] 05/10/2024 8:15 AM EDT Office Visit Ophthalmology, [place] [address] [place] [address] Migel Ramires MD 21 [place] [address] Pending Results Name Type Priority Associated Diagnoses [...] this encounter Medical Devices Implanted Type Area Cigar Making Machine Operator Device Identifier Shelf Expiration Date Model / Serial / Lot Lens Intraoc 21.0 - [id number] - [id number] Implanted:Qty : 1 on 07/06/2017 by Luis Eduardo Cole MD at OR [facility] Left: Eye BAUSCH & LOMB 01/05/2022 [id number] / [id number] / Lens Intraoc 21.0 - [id number] - [id number] Implanted:Qty : 1 on 07/20/2017 by Luis Eduardo Cole MD at OR [facility] Right: Eye BAUSCH & LOMB 01/05/2022 [id number] / [id number] / Syringe Prolaryn Del 1.0cc - [id number] Implanted:Qty : 1 on 11/20/2019 by Amber Jain MD at OR [facility] Right: Mouth [employer] 10/21/2021 [id number] / / [id number] Implant Silastic 7 Silicone Sw - [id number] Implanted:Qty : 1 on 05/28/2020 by Farhat Pate MD at OR [facility] Right: Throat [employer] [id number] / / documented as of this encounter Visit Diagnoses Diagnosis Dyslipidemia, goal LDL below 70 Other and unspecified hyperlipidemia documented in this encounter Advance Directives Latest [...] and were consensually agreed upon. Care Teams Certified Medical Asst Relationship Specialty Start Date End Date Ivonne French PA-C [address] [place] [address] PCP - General Physician B2B Outside Sales Representative 07/24/21 documented as of this encounter
--- OUTSIDE RECORDS SUMMARY | 2024-01-29 21:40 | External Medical Summary ---
Author Name Unknown Address Unknown Organization K01:[place] [facility] [place] [address] [place] [address] Laboratory Report Ordering Provider Test Date Status GRETA WELLINGTONMARIEL 11/15/2023 13:05:23 Final Normal: <30 mg/g creatinine< br/>High: 30-300 mg/g creatinine
Very High: >300 mg/g creatinine
Nephrotic: >2200 mg/g creatinine Observation Date Value Abnormality Reference (Units ) Status Albumin, Urine 11/15/2023 13:05:23 5.65 (mg/dL) Final Creatinine, Urine 11/15/2023 13:05:23 129 (mg/dL) Final Albumin/Creatinine [Mass Ratio] in Urine 11/15/2023 13:05:23 44 Above high normal <30 (mg/g Creat) Final Performing Location [facility] [place] [address] [place] [address]
--- OUTSIDE RECORDS SUMMARY | 2024-01-29 21:40 | External Medical Summary | Summary of Care ---
Author Name Unknown Organization [facility] Address [address] [facility] [address] Phone [phone] Care Team Providers Care Slicing Machine Operator/Tender Name Role Phone Ivonne French PA-C Primary Care Provider [phone] Reason for Visit * Reason Onset Date Comments Advice 11/12/2023 Encounter Details Date Type Department Care Team (Late st Contact Info) Description 11/12/2023 Telephone Podiatry, [place] [address] [place] [address] Nayan Franklin DPM [address] [phone] Advice Allergies Active Allergy Reactions Criticality Noted [...] hemoglobin A1c goal of 7.0%-8.0% ([facility]) TAKE ONE TABLET BY MOUTH TWICE A DAY WITH MORNING AND EVENING MEALS 180 Tablet 1 05/25/2023 Active [employer] Delica Lancets 33G Use to test blood sugar three times daily E 11.9 300 Each 05/25/2023 Active MedClaims LiaisonTouch Verio w/Device Kit Use up to 3 times a day E11.9 1 Kit 0 05/25/2023 Active Pen [place] 32G X 4 MM Use as directed. [...] Additional Information Patient not taking.Reported on 11/12/2023 [employer] Verio In Vitro Strip (Glucose Blood) Use [...] Hour (toPROL XL)Indications:Cor onary artery disease involving suquamish coronary artery of suquamish heart without angina pectoris Take 1.5 Tablets [...] EST Hospital Encounter OR [facility], Operating Room, [facility] 1st Floor [address] [place] [address] Nayan Franklin DPM [address] [place] [address] 11/15/2023 10:57 AM EST - 11/15/2023 12:05 PM EST Surgery OR [facility], Operating Room, [facility] 1st Floor [address] [place] [address] Nayan Franklin, EVANGELINA [address] [place] [address] AMPUTATION TOE METATARSOPHALANGEAL JOINT 11/19/2023 8:00 AM EST Office Visit Pharmacy, [facility] 132 [facility] [place] [address] [facility] 132 [facility] [place] [address] 11/23/2023 1:00 PM EST Office Visit Podiatry [address] [place] [address] Nayan Franklin DPM [address] [place] [address] 11/26/2023 9:15 AM EST Office Visit Podiatry [address] [place] [address] Nayan Franklin, DPM [address] [place] [address] 12/16/2023 11:20 AM EST Office Visit [facility] [address] [place] [phone] Ivonne French PA-C [address] [place] [address] 12/16/2023 1:45 PM EST Office Visit [facility] [address] [place] [address] Shon Rice MD 200 [facility] [place] [address] 12/23/2023 1:00 PM EST Office Visit Neurology, [place] [address] [place] [phone] Oralia Glass MD [address] [place] [address] 01/07/2024 10:00 AM EST Office Visit [facility] [address] [place] [phone] Ivonne French PA-C [address] [place] [address] 01/31/2024 9:00 AM EDT Imaging Radiology [address], [place] 132 [facility] [place] [address] 02/10/2024 11:40 AM EDT Office Visit [facility] [address] [place] [facility] [place] [phone] Ivonne French PA-C [address] [facility] [place] [address] 05/10/2024 8:15 AM EDT Office Visit Ophthalmology, [place] [address] [place] [address] Migel Ramires MD [address] [place] [address] Scheduled Procedures Name Priority Associated Diagnoses Date/Ti [...] 12/12/2021, Additional history exists B-12 12/25/2023 12/25/2022, 06/2022, [...] this encounter Medical Devices Implanted Type Area Associate Sales Manager Device Identifier Shelf Expiration Date Model / Serial / Lot Lens Intraoc 21.0 - [id number] - [id number] Implanted:Qty : 1 on 07/06/2017 by Luis Eduardo Cole MD at OR [facility] Left: Eye BAUSCH & LOMB 01/05/2022 [id number] / [id number] / Lens Intraoc 21.0 - [id number] - [id number] Implanted:Qty : 1 on 07/20/2017 by Luis Eduardo Cole MD at OR [facility] Right: Eye BAUSCH [employer] LOMB 01/05/2022 [id number] / [id number] / Syringe Prolaryn Del 1.0cc - [id number] Implanted:Qty : 1 on 11/20/2019 by Amber Jain MD [place] [facility] [place]: Mouth [employer] 10/21/2021 [id number] / / [id number] Implant Silastic 7 Silicone Sw - [id number] Implanted:Qty : 1 on 05/28/2020 by Farhat Pate MD at [place] [facility] Right: Throat [employer] [id number] / / documented as of this [...] and were consensually agreed upon. Care Teams Slicing Machine Operator/Tender Relationship Specialty Start Date End Date Ivonne French PA-C [address] [place] [address] PCP - General Physician Material Handler 2Nd Shift 07/24/21 documented as of this encounter
--- OUTSIDE RECORDS SUMMARY | 2024-01-29 21:40 | External Medical Summary ---
Author Name Unknown Address Unknown Organization K01:[facility]ORY [facility] - [address] 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 See flow cytometry report for further details ([id number]). Results were reported to Dr Shon Rice on 11/16/23 at 7:25pm. Final Performing Location LAB[facility]ORY [facility] - [address] [place] [address]
--- OUTSIDE RECORDS SUMMARY | 2024-01-29 21:40 | External Medical Summary ---
Author Name Unknown Address Unknown Organization K01:[facility] [place] [address] [place] [address] Laboratory Report Ordering Provider Test Date Status NATY WELLINGTON 11/09/2023 15:17:15 Final Observation Date Value Abnormality Reference (Units ) Status Lipase 11/09/2023 15:17:15 19 13-60 (U/L ) Final Performing Location [facility] - [address] [place] [address]
--- OUTSIDE RECORDS SUMMARY | 2024-01-29 21:40 | External Medical Summary ---
Author Name Unknown Address Unknown Organization K01:LABORATORY [facility] - [address] [place] [address] Laboratory Report Ordering Provider Test Date Status BRENNAN JOSEPH 11/15/2023 13:05:23 Final Observation Date Value Abnormality Reference (Units ) Status LDH 11/15/2023 13:05:23 507 Above high normal <= 250 (U/L) Final Result may be falsely elevat ed due to hemolysis. Performing Location [facility] - [address] [place] [address]
--- OUTSIDE RECORDS SUMMARY | 2024-01-29 21:40 | External Medical Summary | Summary of Care ---
Author Name Unknown Organization [facility] Address [address] [place] [place] [place] [address] Phone [phone] Care Team Providers Care Battalion Fire Chief Name Role Phone Ivonne French PA-C Primary Care Provider [phone] Reason for Visit * Reason Comments Outpatient Testing Encounter Details Date Type Department Care Team (Late st Contact Info) Description 11/09/2023 3:10 PM EST Laboratory Laboratory, [place] [address] [place] [address] [place], Laboratory [address] [place], [place] [phone] [employer] Other*[id number]; Type 2 diabetes mellitus with hemoglobin A1c goal of 7.0%-8.0% ([facility]); Restless legs syndrome; Preoperative general physical examination; Other specified diabetes mellitus with diabetic peripheral angiopathy without gangrene, with long-term current use of insulin ([facility]); Essential hypertension with goal blood [...] EVENING MEALS 180 Tablet 1 05/25/2023 Active Movinto Fun Delica Lancets 33G Use to test blood sugar three times daily E 11.9 300 Each 05/25/2023 Active Eucalyptus SystemsTouch Verio w/Device Kit Use up to 3 times a day E11.9 1 Kit 0 05/25/2023 Active Pen [place] 32G X 4 MM Use as directed. [...] Wednesday only. 90 Tablet 3 06/14/2023 Active Eucalyptus SystemsToMultifonds Verio In Vitro Strip (Glucose Blood) Use [...] Hour (toPROL XL)Indications:Craig nary artery disease involving grayling coronary artery of grayling heart without angina pectoris Take 1.5 Tablets [...] 11/12/2023 9:30 AM EST Office Visit Cardiology, [facility] [address] [place] [address] Christian Cardenas PA-C [address] [place] [address] 11/15/2023 7:30 AM EST Hospital Encounter [facility], Operating Room, [facility] 1st Floor [address] [place] [address] Nayan Franklin DPM [address] [place] [address] 11/15/2023 7:30 AM EST - 11/15/2023 8:23 AM EST Surgery OR [facility], Operating Room, [facility] 1st Floor [address] [place] [address] Nayan Franklin DPM [address] [place] [address] AMPUTATION TOE METATARSOPHALANGEAL JOINT 11/19/2023 8:00 AM EST Office Visit Pharmacy, [facility] [address] [place] [address] [facility] [address] [place] [address] 11/23/2023 1:00 PM EST Office Visit Podiatry [address] [place] [address] Nayan Franklin DPM [address] [place] [address] 11/26/2023 9:15 AM EST Office Visit Podiatry [address] [place] [phone] Nayan Franklin DPM [address] [place] [address] 12/16/2023 11:20 AM EST Office Visit [facility], [place] [address] [place] [address] Ivonne French PA-C [address] [place] [address] 12/16/2023 1:45 PM EST Office Visit Hematology/Oncolo gy [facility] [place] 200 [facility] [place], [place] [address] Shon Rice MD 200 [facility], [place] [address] 12/23/2023 1:00 PM EST Office Visit Neurology, [place] [address] [place] [phone] Oralia Glass MD [address] [place] [address] 01/07/2024 10:00 AM EST Office Visit [facility] [address] [place] [phone] Ivonne French PA-C [address] [place] [address] 01/31/2024 9:00 AM EDT Imaging Radiology [address] 132 [facility] [place] [address] 02/10/2024 11:40 AM EDT Office Visit [facility], [place] [address] [place] [address] Ivonne French PA-C [address] [facility] [place] [id number] 05/10/2024 8:15 AM EDT Office Visit Ophthalmology, [place] J [address] [place] [address] Migel Ramires MD [address] [place] [address] Pending Results Name Type Priority Associated Diagnoses Date /Time MYCODE SUBSEQUENT ADULT Lab Routine MyCode Research Other*[id number] 11/09/2023 3:17 PM EST HEMOGLOBIN A1C Lab Routine Type 2 diabetes mellitus with hemoglobin A1c goal of 7.0%-8.0% ([facility]) 11/09/2023 3:17 PM EST LIPASE Lab Routine Type 2 diabetes mellitus with hemoglobin A1c goal of 7.0%-8.0% ([facility]) 11/09/2023 3:17 PM EST CBC WITH WBC DIFFERENTIAL AND ANEMIA REFLEX WORKUP Lab Routine Restless legs syndrome 11/09/2023 3:17 PM EST PT INR Lab Routine Preoperative general physical examination Type 2 diabetes mellitus with hemoglobin A1c goal of 7.0%-8.0% ([facility]) Other specified diabetes mellitus with diabetic peripheral angiopathy without gangrene, with long-term current use of insulin ([facility]) 11/09/2023 3:17 PM EST COMPREHENSIVE METABOLIC PANEL Lab Routine Essential hypertension with goal blood pressure less than 130/80 Type 2 diabetes mellitus with hemoglobin A1c goal of 7.0%-8.0% ([facility]) 11/09/2023 3:17 PM EST MYCODE SST1 Lab Routine [employer] Other*[id number] 11/09/2023 3:17 PM EST MYCODE SST2 Lab Routine [employer] Other*[id number] 11/09/2023 3:17 PM EST ANEMIA CBC Lab Routine Restless legs syndrome 11/09/2023 3:17 PM EST DIFFERENTIAL, AUTOMATED Lab Routine Restless legs syndrome 11/09/2023 3:17 PM EST ANEMIA REFLEX CHEMISTRY HOLD Lab Routine Restless legs syndrome 11/09/2023 3:17 PM EST Scheduled Procedures Name Priority Associated Diagnoses Date/Ti me AMPUTATION TOE METATARSOPHALANGEAL JOINT Osteomyelitis of great toe of left foot ([facility]) 11/15/2023 7:30 AM EST COLONOSCOPY [...] this encounter Medical Devices Implanted Type Area Mortgage Loan Assistant Device Identifier Shelf Expiration Date Model / Serial / Lot Lens Intraoc 21.0 - [id number] - [id number] Implanted:Qty : 1 on 07/06/2017 by Luis Eduardo Cole MD at OR [facility] Left: Eye [employer] 01/05/2022 [id number] / [id number] / Lens Intraoc 21.0 - [id number] - [id number] Implanted:Qty : 1 on 07/20/2017 by Luis Eduardo Cole MD at OR [facility] Right: Eye [employer] 01/05/2022 [id number] / [id number] / Syringe Prolaryn Del 1.0cc - [id number] Implanted:Qty : 1 on 11/20/2019 by Amber Jain MD [place] [facility] Right: Mouth [employer] 10/21/2021 [id number] / / [id number] Implant Silastic 7 Silicone Sw - [id number] Implanted:Qty : 1 on 05/28/2020 by Farhat Pate MD [place] [facility] [place] Right: Throat [employer] [id number] / / documented as of this encounter Visit Diagnoses Diagnosis My[employer] Other*[id number] Type 2 diabetes mellitus with hemoglobin A1c [...] and were consensually agreed upon. Care Teams Battalion Fire Chief Relationship Specialty Start Date End Date Ivonne French PA-C [address] [place] [address] PCP - General Physician Hammer Shop Supervisor 07/24/21 documented as of this encounter
--- OUTSIDE RECORDS SUMMARY | 2024-01-29 21:40 | External Medical Summary ---
Author Name Unknown Address Unknown Organization K01:[facility] [place] [address] [facility] [address] [facility] [address] Laboratory Report Ordering Provider Test Date Status RUSH BELL 11/15/2023 13:05:23 Final Observation Date Value Abnormality Reference (Units ) Status Triglyceride 11/15/2023 13:05:23 509 Above high normal <=174 (mg/dL) Final Triglyceride Reference Range s (mg/dL):
<150 Acceptable
150-174 Borderline high
175-499 High
>=500 Very high Cholesterol 11/15/2023 13:05:23 327 Above high normal <200 (mg/dL) Final Total Cholesterol Reference Ranges (mg/dL):
<200 Desirable
200-239 Borderline high
>=240 High HDL 11/15/2023 13:05:23 50 >49 (mg/dL ) Final HDL Cholesterol Reference Ra nges (mg/dL):
>=60 High (Desirable)
<50 Low (Undesirable) For Females
<40 Low (Undesirable) For Males NON-HDL CHOLESTEROL 11/15/2023 13:05:23 277 Above high normal <=159 (mg/dL) Final Non-HDL Cholesterol Referenc e Range (mg/dL):
<100 Target level for high risk ASCVD patient
<130 Optimal for general population
130-159 Near optimal for general population
160-189 Borderline High
190-219 High
>=220 Very High Performing Location LAB[facility] [place] [address] [place] [address]
--- OUTSIDE RECORDS SUMMARY | 2024-01-29 21:40 | External Medical Summary | Summary of Care ---
Author Name Unknown Organization [facility] Address [address] [place] [address] Phone [phone] Care Team Providers Care Conveyancer Name Role Phone Ivonne French PA-C Primary Care Provider [phone] Reason for Visit * Reason Onset Date Comments Advice 11/15/2023 Encounter Details Date Type Department Care Team (Late st Contact Info) Description 11/15/2023 Telephone [facility] [address] [place] [address] Ivonne French PA-C [address] [place] [address] Advice Allergies Active Allergy Reactions Criticality Noted [...] with hemoglobin A1c goal of 7.0%-8.0% ([facility]ERLY [facility]) TAKE ONE TABLET BY MOUTH TWICE A DAY WITH MORNING AND EVENING MEALS 180 Tablet 1 05/25/2023 Active OneTouch Delica Lancets 33G Use to test blood sugar three times daily E 11.9 300 Each 05/25/2023 Active OneTouch Verio w/Device Kit Use up to 3 times a day E11.9 1 Kit 0 05/25/2023 Active Pen Kim 32G X 4 MM Use as directed. [...] Hour (toPROL XL)Indications:Cor onary artery disease involving [place] coronary artery of [place] heart without angina pectoris Take 1.5 Tablets [...] Telephone Encounter - Lalitha Roche OSA - 11/16/2023 1:55 PM EST Pt called to see about rescheduling her surgery with Dr Franklin. Pt spoke to the front desk lead. I tried to call pt right back but no answer. I left a mesg for a return call. Pt can't be r/s for surgeryuntil she's cleared by her PCP. From the prev notes/tel enc the pt needs labs done and poss ref to heme/onc ? * Telephone Encounter - Elgin De Dios RN - 11/15/2023 9:43 AM EST I called and spoke with patient, advised her the reasoning why they want to hold on the surgery andthat we need to repeat her labs riki. Pt is going to [facility] today to have them done. Ivonne- jaclyni. I spoke with patient and we will await stat labs. * Telephone Encounter - Mounika Sepulveda LPN - 11/15/2023 9:27 AM EST Called patient and spoke with her about her appointment. She was told that her appointment would need to be on hold until the provider spoke with Heme/Onc. Patient verbalized understanding. * Telephone Encounter - Teena Mccarthy OSA - 11/15/2023 8:43 AM EST Pt would like to speak to someone about her sx that was canceled for toe amputation, she thinks someone is playing a joke on her. She states she received a call Wednesday. Please advise documented in this encounter Plan of Treatment Upcoming Encounters Date Type Department Care Team (Late st Contact Info) Description 11/19/2023 8:00 AM EST Office Visit Pharmacy, [facility] [address] [facility] [place] [address] [facility] [address] [facility] [place] [address] 12/16/2023 11:20 AM EST Office Visit [facility] [place] [address] [facility] [phone] Ivonne French [facility]-C [address] [facility] [address] 12/16/2023 1:45 PM EST Office Visit Hematology/Oncology [facility] [address] [facility] [place] [address] Shon Rice MD [address] [facility] [place] [address] 12/23/2023 1:00 PM EST Office Visit Neurology, [place] [address] [place] [phone] Oralia Glass MD [address], [place] [phone] 01/07/2024 10:00 AM EST Office Visit [facility]1], [place] [address] [facility] [phone] Ivonne French [facility]C [address] [facility] [address] 01/31/2024 9:00 AM EDT Imaging Radiology [facility] [facility] [address] [facility] [place] [address] 02/10/2024 11:40 AM EDT Office Visit [facility][1], [place] [address] [facility] [phone] Ivonne French PA-C [address] [place] [address] 05/10/2024 8:15 AM EDT Office Visit Ophthalmology, [place] [address] [place] [address] Migel Ramires MD [address] [place] [address] Scheduled Procedures Name Priority Associated Diagnoses Date/Ti [...] this encounter Medical Devices Implanted Type Area Frame Table Operator Device Identifier Shelf Expiration Date Model / Serial / Lot Lens Intraoc 21.0 - [id number] - [id number] Implanted:Qty : 1 on 07/06/2017 by Luis Eduardo Cole MD at OR [facility] Left: Eye [employer] 01/05/2022 [id number] / [id number] / Lens Intraoc 21.0 - [id number] - [id number] Implanted:Qty : 1 on 07/20/2017 by Luis Eduardo Cole MD at OR [facility] Right: Eye [employer] 01/05/2022 [id number] / [id number] / Syringe Prolaryn Del 1.0cc - [id number] Implanted:Qty : 1 on 11/20/2019 by Amber Jain MD at OR [facility] Right: Mouth [employer] 10/21/2021 [id number] / / [id number] Implant Silastic 7 Silicone Sw - [id number] Implanted:Qty : 1 on 05/28/2020 by Farhat Pate MD at OR [facility] Right: Throat [place] [id number] / / documented as of this [...] and were consensually agreed upon. Care Teams Conveyancer Relationship Specialty Start Date End Date Ivonne French PA-C [address] [facility] [place] [address] PCP - General Physician Chemical Preparer 07/24/21 documented as of this encounter
--- OUTSIDE RECORDS SUMMARY | 2024-01-29 21:40 | External Medical Summary ---
Author Name Unknown Address Unknown Organization K01:LABORATORY [facility] [place] - [address] [address] Laboratory Report Ordering Provider Test Date Status BRENNAN JOSEPH 11/15/2023 13:05:23 Final Observation Date Value Abnormality Reference (Units ) Status WBC, Total 11/15/2023 13:05:23 8.79 4.00-10.80 (K/uL) Final RBC 11/15/2023 13:05:23 4.63 3.85-5.15 (M/uL) Final Hemoglobin 11/15/2023 13:05:23 13.1 12.0-15.3 (g/dL) Final HCT 11/15/2023 13:05:23 40.1 36.0-45.2 (%) Final MCV 11/15/2023 13:05:23 86.6 81.5-97.5 (fL) Final MCH 11/15/2023 13:05:23 28.3 27.0-34.0 (pg) Final MCHC 11/15/2023 13:05:23 32.7 32.0-36.0 (g/dL) Final RDW 11/15/2023 13:05:23 18.5 11.5-15.5 (%) Final Platelets 11/15/2023 13:05:23 154 140-400 (K/uL) Final MPV 11/15/2023 13:05:23 9.6 6.6-11.1 (fL) Final Nucleated erythrocytes/100 leukocytes [Ratio] in Blood by Automated count 11/15/2023 13:05:23 1 Above high normal <=0 (/100 WBCs) Final Performing Location LABORATORY [facility] - [address] [place] [address]
--- OUTSIDE RECORDS SUMMARY | 2024-01-29 21:41 | External Medical Summary ---
Author Name Unknown Address Unknown Organization K01:[place] [place] [address] [facility] [address] Laboratory Report Ordering Provider Test Date Status NATY WELLINGTON 11/09/2023 15:17:15 Final Observation Date Value Abnormality Reference (Units ) Status BUN 11/09/2023 15:17:15 18 6-20 (mg/dL) Final Creatinine 11/09/2023 15:17:15 1.0 0.5-1.0 (mg/dL) Final Glomerular filtration rate/1.73 sq M.predicted [Volume Rate/Area] in Serum, Plasma or Blood by Creatinine-based formula (CKD-EPI) 11/09/2023 15:17:15 64 >=60 (mL/min) Final eGFR is calculated based on the CKD-EPI 2020 equation SODIUM 11/09/2023 15:17:15 137 135-146 (m mol/L) Final Potassium 11/09/2023 15:17:15 4.5 3.5-5.1 (m mol/L) Final Cl 11/09/2023 15:17:15 97 Below low normal 98- 107 (mmol/L) Final CO2 11/09/2023 15:17:15 28 22-32 (mmo l/L) Final Anion gap 11/09/2023 15:17:15 12 7-15 (mmol /L) Final Glucose 11/09/2023 15:17:15 151 Above high normal 70 -120 (mg/dL) Final Albumin 11/09/2023 15:17:15 5.0 3.8-5.0 (g /dL) Final AST (Aspartate aminotransferase) 11/09/2023 15:17:15 26 10-35 (U/L) Fin al Alk Phos 11/09/2023 15:17:15 67 35-130 (U/ L) Final Bilirubin, Total 11/09/2023 15:17:15 0.4 <=1 .2 (mg/dL) Final Calcium 11/09/2023 15:17:15 9.9 8.4-10.2 ( mg/dL) Final Protein 11/09/2023 15:17:15 7.8 6.0-8.3 (g /dL) Final ALT (Alanine aminotransferase) 11/09/2023 15:17:15 14 10-35 (U/L) Colin lee Performing Location [place] [facility] [place] [facility] [address] [facility] [address]
--- OUTSIDE RECORDS SUMMARY | 2024-01-29 21:41 | External Medical Summary | Summary of Care ---
Author Name Unknown Organization [facility] Address [address] [place] [address] Phone [phone] Care Team Providers Care Director Of Spa And Guest Experience Name Role Phone Ivonne Alfonso PA-C Primary Care Provider [phone] Reason for Visit * Reason Onset Date Comments Medication Refill 05/25/2023 Encounter Details Date Type Department Care Team (Late st Contact Info) Description 05/25/2023 Refill [facility] [address] [place] [address] Ivonne Alfonso PA-C [address] [place] [address] Essential hypertension with goal blood pressure less than 130/80; Constipation, unspecified constipation type; Drug-induced constipation; Type 2 diabetes mellitus with hemoglobin A1c goal of 7.0%-8.0% ([facility]); Coronary artery disease involving [place] coronary artery of [place] heart without angina pectoris; Contact dermatitis, unspecified contact dermatitis type, unspecified trigger Allergies Active Allergy Reactions Criticality Noted Date Comments Adhesive Tape 04/21/2016 Glue off the old style medical tape. documented as of this encounter (statuses as of 09/10/2023) Medications Medication Sig Dispensed Refills Start Date End Date Status Aspirin 81 MG Tablet Take 1 Tablet by mouth in the morning. 0 Active DULoxetine HCl 60 MG Oral Capsule Delayed Release Particles (Cymbalta) Take 1 Capsule by mouth in the morning. 180 Capsule 0 11/24/2022 Active amLODIPine Besylate 2.5 MG Oral Tablet (Norvasc)Indicatio ns:Essential hypertension with goal blood pressure less than 130/80 Take 1 Tablet by mouth in the morning. 90 Tablet 05/25/2023 Active Insulin Glargine Solostar 100 UNIT/ML Subcutaneous Solution Pen-injector (Lantus SoloStar) Inject 30 Units under the skin at bedtime. 30 mL 05/25/2023 Active Lactulose 10 GM/15ML Oral Solution (Constulose)Indica tions:Constipation , unspecified constipation type Take 30 mL by mouth in the morning and 30 mL at noon and 30 mL before bedtime. 240 mL 0 05/25/2023 Active Linzess 72 MCG Oral Capsule (linaCLOtide)Indic ations:Drug-induce d constipation Take 1 Capsule by mouth daily before breakfast. 90 Capsule 05/25/2023 Active Melatonin 10 MG Oral Capsule Take 1 Capsule by mouth at bedtime. 100 Capsule 05/25/2023 Active metFORMIN HCl 1000 MG Oral Tablet (Glucophage)Indica tions:Type 2 diabetes mellitus with hemoglobin A1c goal of 7.0%-8.0% ([facility]) TAKE ONE TABLET BY MOUTH TWICE A DAY WITH MORNING AND EVENING MEALS 180 Tablet 05/25/2023 Active Metoprolol Succinate ER 25 MG Oral Tablet Extended Release 24 Hour (toPROL XL)Indications:Cor onary artery disease involving [place] coronary artery of [place] heart without angina pectoris Take 1.5 Tablets by mouth in the morning. 135 Tablet 05/25/2023 Active NovoLOG FlexPen 100 UNIT/ML Subcutaneous Solution Pen-injector (insulin aspart) Inject 20 Units under the skin in the morning and 20 Units at noon and 20 Units in the evening. Inject with meals. 30 mL 05/25/2023 Active Omeprazole 20 MG Oral Capsule Delayed Release (PriLOSEC) Take 1 Capsule by mouth in the morning and 1 Capsule before bedtime. 180 Capsule 05/25/2023 Active Codon DevicesTouch Delica Lancets 33G Use to test blood sugar three times daily E 11.9 300 Each 05/25/2023 Active OneTouch Verio w/Device Kit Use up to 3 times a day E11.9 1 Kit 0 05/25/2023 Active Pen Fairview 32G X 4 MM Use as directed. Use to inject insulin 4 times daily 100 Each 05/25/2023 Active Triamcinolone Acetonide 0.1 % External Ointment (Aristocort)Indica tions:Contact dermatitis, unspecified contact dermatitis type, unspecified trigger Apply topically to affected area 2 times a day. Apply to hands and feet 80 g 2 05/25/2023 Active metFORMIN HCl 1000 MG Oral Tablet (Glucophage)Indica tions:Type 2 diabetes mellitus with hemoglobin A1c goal of 7.0%-8.0% ([facility]) TAKE ONE TABLET BY MOUTH TWICE A DAY WITH MORNING AND EVENING MEALS 180 Tablet 1 05/24/2023 3 Discontinue d(Refill) Trulicity 4.5 MG/0.5ML Subcutaneous Solution Pen-injector (Dulaglutide) Take 1 pen once weekly 6 mL 3 05/24/2023 3 Discontinue d(Refill) Levothyroxine Sodium 150 MCG Oral Tablet (Synthroid) One tab daily Wednesday through Wednesday - half tab daily Wednesday and wednesday 90 Tablet 1 05/24/2023 3 Discontinue d(Refill) Omeprazole 20 MG Oral Capsule Delayed Release (PriLOSEC) Take 1 Capsule by mouth in the morning and 1 Capsule before bedtime. 180 Capsule 1 05/24/2023 3 Discontinue d(Refill) Triamcinolone Acetonide 0.1 % External Ointment (Aristocort)Indica tions:Contact dermatitis, unspecified contact dermatitis type, unspecified trigger Apply topically to affected area 2 times a day. Apply to hands and feet 80 g 2 05/24/2023 3 Discontinue d(Refill) NovoLOG FlexPen 100 UNIT/ML Subcutaneous Solution Pen-injector (insulin aspart) Inject 20 Units under the skin in the morning and 20 Units at noon and 20 Units in the evening. Inject with meals. 30 mL 3 05/24/2023 3 Discontinue d(Refill) Insulin Glargine Solostar 100 UNIT/ML Subcutaneous Solution Pen-injector (Lantus SoloStar) Inject 30 Units under the skin at bedtime. 30 mL 3 05/24/2023 3 Discontinue d(Refill) Lactulose 10 GM/15ML Oral Solution (Constulose)Indica tions:Constipation , unspecified constipation type Take 30 mL by mouth in the morning and 30 mL at noon and 30 mL before bedtime. 240 mL 0 05/24/2023 3 Discontinue d(Refill) Isosorbide Mononitrate ER 30 MG Oral Tablet Extended Release 24 Hour (Imdur) Take 0.5 Tablets by mouth in the morning. 31 Tablet 5 05/24/2023 3 Discontinue d(Refill) Pen Fairview 32G X 4 MM Use as directed. Use to inject insulin 4 times daily 100 Each 5 05/24/2023 3 Discontinue d(Refill) amLODIPine Besylate 2.5 MG Oral Tablet (Norvasc)Indicatio ns:Essential hypertension with goal blood pressure less than 130/80 Take 1 Tablet by mouth in the morning. 90 Tablet 3 05/24/2023 3 Discontinue d(Refill) Metoprolol Succinate ER 25 MG Oral Tablet Extended Release 24 Hour (toPROL XL)Indications:Cor onary artery disease involving [place] coronary artery of [place] heart without angina pectoris Take 1.5 Tablets by mouth in the morning. 135 Tablet 1 05/24/2023 3 Discontinue d(Refill) OneTouch Delica Lancets 33G Use to test blood sugar three times daily E 11.9 300 Each 5 05/24/2023 3 Discontinue d(Refill) Melatonin 10 MG Oral Capsule Take 1 Capsule by mouth at bedtime. 100 Capsule 3 05/24/2023 3 Discontinue d(Refill) Linzess 72 MCG Oral Capsule (linaCLOtide)Indic ations:Drug-induce d constipation Take 1 Capsule by mouth daily before breakfast. 90 Capsule 1 05/24/2023 3 Discontinue d(Refill) OneTouch Verio w/Device Kit Use up to 3 times a day E11.9 1 Kit 0 05/24/2023 3 Discontinue d(Refill) OneTouch Verio In Vitro Strip (Glucose Blood) Use up to 3 times a day E11.9 50 Strip 1 05/24/2023 3 Discontinue d(Refill) Isosorbide Mononitrate ER 30 MG Oral Tablet Extended Release 24 Hour (Imdur) Take 0.5 Tablets by mouth in the morning. 31 Tablet 5 05/25/2023 3 Discontinue d(Refill) Levothyroxine Sodium 150 MCG Oral Tablet (Synthroid) One tab daily Wednesday through Wednesday - half tab daily Wednesday and wednesday 90 Tablet 1 05/25/2023 3 Discontinue d(Refill) OneTouch Verio In Vitro Strip (Glucose Blood) Use up to 3 times a day E11.9 50 Strip 1 05/25/2023 3 Discontinue d(Refill) Trulicity 4.5 MG/0.5ML Subcutaneous Solution Pen-injector (Dulaglutide) Take 1 pen once weekly 6 mL 3 05/25/2023 3 Discontinue d(Medicatio n/Dose Changed) documented as of this encounter (statuses as of 09/10/2023) Active Problems Problem Noted Date Diagnosed Date Varicose veins of both lower extremities 023 [...] as of this encounter (statuses as of 09/10/2023) Resolved Problems Problem Noted Date Diagnosed Date [...] as of this encounter (statuses as of 09/10/2023) Immunizations Name Administration Dates Next Due COVID-19 [...] or making decisions? (5 years old or older No 05/28/2020 documented as of this encounter Miscellaneous Notes * Telephone Encounter - James Montez, mail processing clerk - 09/10/2023 2:53 PM EDT Pt calling to request Amlodipine and linzess. Informed pt that RX is available at their pharmacy. Pt verbalized understanding and stated they will check with their pharmacy regarding this medication. Thanks, James Quintanilla, t Library Technology Instructor [facility] ([facility]) (formerly Telepharmacy). 09/10/2023,2:53 PM * Telephone Encounter - Harman Hampton, [facility] - 05/25/2023 8:54 AM EDT Signed Prescriptions: Disp Refills amLODIPine Besylate 2.5 MG Oral Tablet (No*90 Tab*3 Sig: Take 1 Tablet by mouth in the morning.Authorizing Provider: IVONNE ALFONSO User: HARMAN HAMPTON Insulin Glargine Solostar 100 UNIT/ML Subc*30 mL 3 Sig: Inject 30 Units under the skin at bedti ma.Authorizing Provider: IVONNE ALFONSO User: HARMAN HAMPTON Isosorbide MononitrateER 30 MG Oral Table*31 Tab*5 Sig: Take 0.5 Tablets by mouth in the morning.Authorizing Provider: IVONNE ALFONSO User: HARMAN HAMPTON Lactulose 10 GM/15ML Oral Solution (Constu*240 mL0 Sig: Take 30 mL by mouth in the morning and 30 mL at noon and 30 mL before bedtime.Authorizing Provider: IVONNE ALFONSO User: HARMAN HAMPTON Levothyroxine Sodium 150 MCG Oral Tablet (*90 Tab*1 Sig: One tab daily Wednesday through Wednesday - half tab daily Wednesday and ayAuthorizing Provider: IVONNE ALFONSO User: HARMAN HAMPTON Linzess 72 MCG Oral Capsule (linaCLOtide) 90 Cap*1Sig: Take 1 Capsule by mouth daily before breakfast.Authorizing Provider: IVONNE ALFONSO User: HARMAN HAMPTON Melatonin 10 MG Oral Capsule 100 Ca*3 Sig: Take 1 Capsule by mouth at bedtime.Authorizing Provider: IVONNE ALFONSO User: HARMAN HAMPTON metFORMIN HCl 1000 MG Oral Tablet (Glucoph*180 Ta*1 Sig: TAKE ONE TABLET BY MOUTH TWICE A DAY WITH MORNING AND EVENING MEALSAuthorizing Provider: IVONNE ALFONSO User: HARMAN HAMPTON Metoprolol Succinate ER 25 MG Oral Tablet *135 Ta*1 Sig: Take 1.5 Tablets by mouth in the morning.Authorizing Provider: IVONNE ALFONSOUser: HARMAN HAMPTON NovoLOG FlexPen 100 UNIT/ML Subcutaneous S*30 mL 3 Sig: Inject 20 Units under the skin in the morning and 20 Units at noon and 20 Units in the evening. Inject with meals.Authorizing Provider: IVONNE ALFONSO User: HARMAN HAMPTON Omeprazole 20 MG Oral Capsule Delayed Rele*180 Ca*1 Sig: Take 1 Capsule by mouth in the morning and 1 Capsule before bedtime.Aut horizing Provider: IVONNE ALFONSO User: HARMAN HAMPTONTonohemi Delica Lancets 33G 300 Ea*5 Sig: Use to test blood sugar three times daily E 11.9Authorizing Provider: IVONNE ALFONSO User: HARMAN HAMPTON Verbernnan In Vitro Strip (Glucose Blo*50 Str*1 Sig: Use up to 3 times a day E11.9Authorizing Provider: IVONNE ALFONSO User: HARMAN HAMPTON Verbrennan w/Device Kit 1 Kit 0 Sig: Use up to 3 times a day E11.9Authorizing Provider: IVONNE ALFONSO User: HARMAN HAMPTON Pen Fairview 32G X 4 MM 100 Ea*5 Sig: Use as directed. Use to inject insulin 4 times dailyAuthorizing Provider: IVONNE ALFONSO User: HARMAN HAMPTON Triamcinolone Acetonide 0.1 % External Oin*80 g 2 Sig: Apply topically to affected area 2 times a day. Apply to hands and feetAuthorizing Provider: IVONNE ALFONSO User: HARMAN HAMPTON Trulicity 4.5 MG/0.5ML Subcutaneous Soluti*6 mL 3 Sig: Take 1 pen once weeklyAuthorizing Provider: IVONNE ALFONSO User: HARMAN HAMPTON * Telephone Encounter - Vee Galan - 05/25/2023 8:40 AM EDT Pt is requesting high priority. Please reroute Rx to [facility] [address] [facility]. Pending Prescriptions: Disp Refills amLODIPine Besylate 2.5 MG Oral Tablet (N*90 Tab*3 Sig: Take 1 Tablet by mouth in the morning. Insulin Glargine Solostar 100 UNIT/ML Sub*30 mL 3 Sig: Inject 30 Units under the skin at bedtime. Isosorbide Mononitrate ER 30 MG Oral Tabl*31 Tab*5 Sig: Take 0.5 Tablets by mouth in the morning. Lactulose 10 GM/15ML Oral Solution (Const*240 mL 0 Sig: Take 30 mL by mouth in the morning and 30 mL at noon and 30 mL before bedtime. Levothyroxine Sodium 150 MCG Oral Tablet *90 Tab*1 Sig: One tab daily Wednesday through Wednesday - half tab daily Wednesday and wednesday Linzess 72 MCG Oral Capsule (linaCLOtide) 90 Cap*1 Sig: Take 1 Capsule by mouth daily before breakfast. Melatonin 10 MG Oral Capsule 100 Ca*3 Sig: Take 1 Capsule by mouth at bedtime. metFORMIN HCl 1000 MG Oral Tablet (Glucop*180 Ta*1 Sig: TAKE ONE TABLET BY MOUTH TWICE A DAY WITH MORNING AND EVENING MEALS Metoprolol Succinate ER 25 MG Oral Tablet*135 Ta*1 Sig: Take 1.5 Tablets by mouth in the morning. NovoLOG FlexPen 100 UNIT/ML Subcutaneous *30 mL 3 Sig: Inject 20 Units under the skin in the morning and 20 Units at noon and 20 Units in the evening. Inject with meals. Omeprazole 20 MG Oral Capsule Delayed Rel*180 Ca*1 Sig: Take 1 Capsule by mouth in the morning and 1 Capsule before bedtime. Codon DevicesTouch Delica Lancets 33G 300 Ea*5 Sig: Use to test blood sugar three times daily E 11.9 OneTouch Verio In Vitro Strip (Glucose Bl*50 Str*1 Sig: Use up to 3 times a day E11.9 OneTouch Verio w/Device Kit 1 Kit 0 Sig: Use up to 3 times a day E11.9 Pen Fairview 32G X 4 MM 100 Ea*5 Sig: Use as directed. Use to inject insulin 4 times daily Triamcinolone Acetonide 0.1 % External Oi*80 g 2 Sig: Apply topically to affected area 2 times a day. Apply to hands and feet Trulicity 4.5 MG/0.5ML Subcutaneous Solut*6 mL 3 Sig: Take 1 pen once weekly Last Visit: 05/24/2023 (in office), 10/22/2022 (telemedicine) 06/18/2023 If no future appointments scheduled, and last appointment is greater than a year ago, please schedule patient for a follow-up appointment Last date the medication was ordered: 05/24/2023 Patient Phone Numbers Labs: Lab Results Component Value Date/Time CREAT 1.0 05/12/2023 10:10 AM CREAT 0.8 10/14/2020 12:10 PM POTASSIUM 4.9 05/12/2023 10:10 AM POTASSIUM 4.8 10/14/2020 12:10 PM TSH 1.20 04/27/2023 09:44 AM TSH 1.14 10/14/2020 12:10 PM LDLCALC 49 07/23/2021 08:43 AM LDLCALC 82 07/15/2016 12:38 PM LDLDIRECT 34 12/25/2022 10:44 AM LDLDIRECT 78 10/14/2020 12:10 PM LDLDIRECT 72 07/20/2018 01:52 PM ALT 27 05/12/2023 10:10 AM ALT 26 05/25/2020 09:44 AM HGBA1C 9.9 (H) 04/27/2023 09:44 AM HGBA1C 10.9 (H) 10/14/2020 12:10 PM documented in this encounter Plan of Treatment Upcoming Encounters Date Type Department Care Team (Late st Contact Info) Description 09/17/2023 8:00 AM EST Office Visit Pharmacy, [facility] [address] [place] [address] [facility] [address] [facility] [place] [address] 10/01/2023 8:15 AM EST Imaging Radiology [facility] [address] [facility] [address] [facility] [place] [address] 10/08/2023 9:15 AM EST Office Visit Podiatry [facility], [address] [place] [phone] Nayan Franklin, [facility] [address] [place] [address] 10/14/2023 1:40 PM EST Office Visit Family [facility], [place] [address] [place] [phone] Ivonne Alfonso PA-C [address] [place] [address] 11/12/2023 8:40 AM EST Office Visit [facility], [place] [address] [facility] [place] [phone] Ivonne Alfonso PA-C [address] [place] [facility] [place] [address] 11/12/2023 9:30 AM EST Office Visit Cardiology, [facility] [address] [facility] [place] [address] Christian Cardenas PA-C [address] [facility] [place] [address] 12/16/2023 1:45 PM EST Office Visit Hematology/Oncology [facility] [address] [place] [address] Shon Rice MD [address] [place] [address] 12/23/2023 1:00 PM EST Office Visit Neurology, [place] [address] [place] [address] Oralia Glass MD [address] [place] [address] 05/10/2024 8:15 AM EDT Office Visit Ophthalmology, [place] [address] [facility] [place] [address] Migel Ramires MD [address] [facility] [place] [address] Scheduled Procedures Name Priority Associated Diagnoses Date/Ti [...] 07/23/2021, Additional history exists Mammogram 01/28/2024 01/27/2023, 07/10, 07/31/2021, Additional history exists TSH 04/27/2024 04/27/2023, 12/09, 04/15/2022, Additional history exists Diabetic Eye Exam 05/06/2024 05/06/2023, , 01/21/2022, Additional history exists GFR 06/15/2024 06/15/2023, 07/03/2023, 02/22/2023, Additional history exists PAP SMEAR-EVERY 3 YRS,AGES 18-100 12/12/2024 12/12/2021, 12/20/2015, 07/12/2014 (Done elsewhere), Additional history exists COLONOSCOPY-EVERY 5 YRS AGES 18-100 06/03/2027 06/03/2022, 12/16/2016, 04/14/2010 Lipid Panel 12/25/2027 12/25/2022, 07/09, 01/06/2021, Additional history exists DTaP,Tdap,and Td Vaccines (3 - Td or Tdap) 10/26/2029 10/26/2019, 02/28/2009 GARDASIL-HPV IMMUNIZATION SERIES Aged Out No longer eligible based on patient's age to complete this topic MENINGOCOCCAL (MENACTRA/MENVEO) Aged Out No longer eligible based on patient's age to complete this topic Zoster Vaccines Discontinued documented as of this encounter Medical Devices Implanted Type Area Senior Engineering Team Leader Device Identifier Shelf Expiration Date Model / Serial / Lot Lens Intraoc 21.0 - [id number] - [id number] Implanted:Qty : 1 on 07/06/2017 by Luis Eduardo Cole MD at [facility] Left: Eye [employer] 01/05/2022 [id number] / [id number] / Lens Intraoc 21.0 - [id number] - [id number] Implanted:Qty : 1 on 07/20/2017 by Luis Eduardo Cole MD at OR [facility] Right: Eye [employer] 01/05/2022 [id number] / [id number] / Syringe Prolaryn Del 1.0cc - [id number] Implanted:Qty : 1 on 11/20/2019 by Amber Jain MD [place] [facility] [place]: Mouth [employer] 10/21/2021 [id number] / / [id number] Implant Silastic 7 Silicone Sw - [id number] Implanted:Qty : 1 on 05/28/2020 by Farhat Pate MD at [place] [facility] Right: Throat [employer] [id number] / / documented as of this encounter Visit Diagnoses Diagnosis Essential hypertension with goal blood pressure less than 130/80 Constipation, unspecified constipation type Drug-induced constipation Other constipation Type 2 diabetes mellitus with hemoglobin A1c goal of 7.0%-8.0% ([facility]) Coronary artery disease involving [place] coronary artery of [place] heart without angina pectoris Contact dermatitis, unspecified contact dermatitis type, unspecified trigger documented in this encounter Advance Directives Latest [...] were consensually agreed upon. Care Teams Director Of Spa And Guest Experience Relationship Specialty Start Date End Date Ivonne Alfonso PA-C [address] [place] [address] PCP - General Physician Brewery Cellar Worker 07/24/21 documented as of this encounter
--- OUTSIDE RECORDS SUMMARY | 2024-01-29 21:41 | External Medical Summary | Summary of Care ---
Author Name Unknown Organization [facility] Address [address] [place] [address] Phone [phone] Care Team Providers Care Medicinal Chemist Name Role Phone Ivonne French PA-C Primary Care Provider [phone] Encounter Details Date Type Department Care Team (Late st Contact Info) Description 07/06/2023 Telephone [facility] [place] [address] [place] [address] Ivonne French PA-C [address] [place] [address] Allergies Active Allergy Reactions Criticality Noted Date Comments Adhesive Tape 04/21/2016 Glue off the old style medical tape. documented as of this encounter (statuses as of 10/05/2023) Medications Medication Sig Dispensed Refills Start Date [...] mouth in the morning. 90 Tablet 3 05/25/2023 Active Lactulose 10 GM/15ML Oral Solution (Constulose)Indica tions:Constipation , unspecified constipation type Take 30 mL by mouth in the morning and 30 mL at noon and 30 mL before bedtime. 240 mL 0 05/25/2023 Active Linzess 72 MCG Oral Capsule (linaCLOtide)Indic ations:Drug-induce d constipation Take 1 Capsule by mouth daily before breakfast. 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 135 Tablet 05/25/2023 Active Omeprazole 20 MG Oral Capsule Delayed Release (PriLOSEC) Take 1 Capsule by mouth in the morning and 1 Capsule before bedtime. 180 Capsule 05/25/2023 Active ciValueToNewACT Delica Lancets 33G Use to test blood sugar three times daily E 11.9 300 Each 05/25/2023 Active ciValueTouch Verio w/Device Kit Use up to 3 times a day E11.9 1 Kit 0 05/25/2023 Active Pen Willard 32G X 4 MM Use as directed. [...] Wednesday only. 90 Tablet 3 06/14/2023 Active Insulin Glargine Solostar 100 UNIT/ML Subcutaneous Solution Pen-injector (Lantus SoloStar) Inject 30 Units under the skin at bedtime. 30 mL 05/25/2023 3 Discontinue d(Refill) Isosorbide Mononitrate ER 30 MG Oral Tablet Extended Release 24 Hour (Imdur) Take 0.5 Tablets by mouth in the morning. 31 Tablet 5 05/25/2023 3 Discontinue d(Refill) Levothyroxine Sodium 150 MCG Oral Tablet (Synthroid) One tab daily Wednesday through Wednesday - half tab daily Wednesday and wednesday 90 Tablet 1 05/25/2023 3 Discontinue d(Refill) NovoLOG FlexPen 100 UNIT/ML Subcutaneous Solution Pen-injector (insulin aspart) Inject 20 Units under the skin in the morning and 20 Units at noon and 20 Units in the evening. Inject with meals. 30 mL 3 05/25/2023 3 Discontinue d(Refill) OneTouch Verio In Vitro Strip (Glucose Blood) Use up to 3 times a day E11.9 50 Strip 1 05/25/2023 3 Discontinue d(Refill) Trulicity 4.5 MG/0.5ML Subcutaneous Solution Pen-injector (Dulaglutide) Take 1 pen once weekly 6 mL 3 05/25/2023 3 Discontinue d(Medicatio n/Dose Changed) documented as of this encounter (statuses as of 10/05/2023) Active Problems Problem Noted Date Diagnosed Date [...] as of this encounter (statuses as of 10/05/2023) Resolved Problems Problem Noted Date Diagnosed Date [...] as of this encounter (statuses as of 10/05/2023) Immunizations Name Administration Dates Next Due COVID-19 [...] Telephone Encounter - Ivonne French PA-C - 07/20/2023 10:17 AM EDT I sent over Gabriel for her,. She burroughs kimmy on trulicity until it comes Ivonne French PA-C 07/20/2023 10:17 AM * Telephone Encounter - Mary Grace Farmer RP - 07/08/2023 8:13 AM EDT Mounajro prescription can come from pcp office or weight loss clinic, MTM cannot prescribe for weight loss. Mary Grace Farmer, Pharm D, [facility] 07/08/2023, 8:13 AM Electronically signed by Mary Grace Farmer [facility], located within [facility] at 07/08/2023 8:14 AM EDT * Telephone Encounter - Estephania Crenshaw LPN - 07/07/2023 4:20 PM EDT ? WhAAAAt?? Was this for us? Thanks, hope you are having a GREAT day * Telephone Encounter - Ivonne French PA-C - 07/06/2023 10:27 AM EDT Pt wants to start Mounjaro to try to improve bg control as well as drop some weight Hemoglobin AIC Results: Lab Results Component Value Date/Time HEMOGLOBIN A1C - [facility] 8.8 (H) 06/15/2023 10:06 AM HEMOGLOBIN A1C - [facility] 9.9 (H) 04/27/2023 09:44 AM HEMOGLOBIN A1C - [facility] 9.7 (H) 12/25/2022 10:38 AM HEMOGLOBIN A1C - [facility] 10.9 (H) 10/14/2020 12:10 PM HEMOGLOBIN A1C - [facility] 10.2 (H) 05/25/2020 09:43 AM HEMOGLOBIN A1C - [facility] 10.3 (H) 02/13/2020 12:01 PM Can you please advise as to if you are willing to prescribe? Ivonne French PA-C documented in this encounter Plan of Treatment Upcoming Encounters Date Type Department Care Team (Late st Contact Info) Description 10/08/2023 9:15 AM EST Office Visit Podiatry [address] [place] [phone] Nayan Franklin, [facility] [address] [place] [address] 10/14/2023 1:40 PM EST Office Visit [place] [address] [facility] [place] [address] Ivonne French PA-C [address] [place] [address] 11/12/2023 8:40 AM EST Office Visit [facility], [place] [address] [facility], [place] [phone] Ivonne French PA-C [address] [facility] [place] [address] 11/12/2023 9:30 AM EST Office Visit Cardiology, [facility] [place] [address] [facility] [place] [address] Christian Cardenas PA-C [address] [place] [address] 11/19/2023 8:00 AM EST Office Visit Pharmacy, [facility] [place] [facility] [place] [address] [facility] [address] [place] [address] 12/16/2023 1:45 PM EST Office [facility] [address] [place] [address] Shon Rice MD [address] [place] [address] 12/23/2023 1:00 PM EST Office Visit Neurology, [place] [address] [place] [phone] Oralia Glass MD [address] [place] [address] 05/10/2024 8:15 AM EDT Office Visit Ophthalmology, [place] [address] [place] [address] Migel Ramires MD 21 [facility] [place], [place] [phone] Scheduled Procedures Name Priority Associated Diagnoses Date/Ti [...] 01/21/2022, Additional history exists GFR 06/15/2024 06/15/2023, 03/2023, 02/22/2023, Additional history exists PAP SMEAR-EVERY [...] this encounter Medical Devices Implanted Type Area Environmental Services Specialist Device Identifier Shelf Expiration Date Model / Serial / Lot Lens Intraoc 21.0 - [id number] - [id number] Implanted:Qty : 1 on 07/06/2017 by Luis Eduardo Cole MD at OR [facility] Left: Eye [employer] 01/05/2022 [id number] / [id number] / Lens Intraoc 21.0 - [id number] - [id number] Implanted:Qty : 1 on 07/20/2017 by Luis Eduardo Cole MD at OR [facility] Right: Eye [employer]OM[employer] 01/05/2022 [id number] / [id number] / Syringe Prolaryn Del 1.0cc - [id number] Implanted:Qty : 1 on 11/20/2019 by Amber Jain [place] [facility] [place]: Mouth [employer] 10/21/2021 [id number] / / [id number] Implant Silastic 7 Silicone Sw - [id number] Implanted:Qty : 1 on 05/28/2020 by Farhat Pate [place] [facility] [place]: Throat [employer] [id number] / / documented as of this [...] and were consensually agreed upon. Care Teams Medicinal Chemist Relationship Specialty Start Date End Date Ivonne French PA-C [address] [place] [address] PCP - General Physician Wastewater Treatment Supervisor 07/24/21 documented as of this encounter
--- OUTSIDE RECORDS SUMMARY | 2024-01-29 21:41 | External Medical Summary | Summary of Care ---
Author Name Unknown Organization [facility] Address [address] [place] [address] Phone [phone] Care Team Providers Care General Magistrate Name Role Phone Ivonne French PA-C Primary Care Provider [phone] Reason for Referral * Evaluate & Treat - Unlimited Visits (Within 30 days (routine)) - Authorized Specialty Diagnoses / Procedures Referred By Contsumanth t Referred To Contact Psychiatry Diagnoses Compulsive eating patterns NBA (generalized anxiety disorder) Major depressive disorder, single episode, mild (HCC) Ivonne French PA-C [address] [place] [address] Referral ID Status Reason Start Date Expiration Date Visits Requested Visits Authorized [id number] Authorized Specialty Services Required 09/09/[phone] Question Answer Referral Priority Within 30 days (routine) Where should this appointment be scheduled? External Is this referral for medication management? Yes Referral To Outside [facility] Reason for Referral Anxiety Reason for Visit * Reason Comments Acute PAP Encounter Details Date Type Department Care Team (Latest Contact Info) Description 09/09/2023 1:00 PM EDT Office Visit [facility] [address] [place] [phone] Ivonne French PA-C [address] [place], [place] [phone] Compulsive eating patterns*; NBA (generalized anxiety disorder); Major depressive disorder, single episode, mild (HCC); Pap smear for cervical cancer screening; Encounter for gynecological examination without abnormal finding Allergies Active Allergy Reactions Criticality Noted Date Comments Adhesive Tape 04/21/2016 Glue off the old style medical tape. documented as of this encounter (statuses as of 09/09/2023) Medications Medication Sig Dispensed Refills Start Date [...] the morning. 90 Tablet 3 05/25/2023 Active Insulin Glargine Solostar 100 UNIT/ML Subcutaneous Solution Pen-injector (Lantus SoloStar) Inject 30 Units under the skin at bedtime. 30 mL 05/25/2023 Active Lactulose 10 GM/15ML Oral Solution (Constulose)Indicat ions:Constipation, unspecified constipation type Take 30 mL by mouth in the morning and 30 mL at noon and 30 mL before bedtime. 240 mL 0 05/25/2023 Active Linzess 72 MCG Oral Capsule (linaCLOtide)Indica tions:Drug-induced constipation Take 1 Capsule by mouth daily before breakfast. 90 Capsule 1 05/25/2023 Active Melatonin 10 MG Oral Capsule Take 1 Capsule by mouth at bedtime. 100 Capsule 3 05/25/2023 Active metFORMIN HCl 1000 MG Oral Tablet (Glucophage)Indicat ions:Type 2 diabetes mellitus with hemoglobin A1c goal of 7.0%-8.0% ([facility]) TAKE ONE TABLET BY MOUTH TWICE A DAY WITH MORNING AND EVENING MEALS 180 Tablet 05/25/2023 Active Metoprolol Succinate ER 25 MG Oral Tablet Extended Release 24 Hour (toPROL XL)Indications:Craig nary artery disease involving campo coronary artery of campo heart without angina pectoris Take 1.5 Tablets [...] 1 Capsule before bedtime. 180 Capsule 1 05/25/2023 Active OpenSesame Delica Lancets 33G Use to test blood sugar three times daily E 11.9 300 Each 5 05/25/2023 Active [employer]Touch Verio w/Device Kit Use up to 3 times a day E11.9 1 Kit 0 05/25/2023 Active Pen Mentone 32G X 4 MM Use as directed. [...] Wednesday only. 90 Tablet 3 06/14/2023 Active OpenSesame Verio In Vitro Strip (Glucose Blood) Use up to 3 times a day E11.9 100 Strip 11 07/16/2023 Active Levothyroxine Sodium 150 MCG Oral Tablet (Synthroid) One tab daily Wednesday through Wednesday - half tab daily Wednesday and wednesday 90 Tablet 1 07/20/2023 Active Mounjaro 7.5 MG/0.5ML Subcutaneous Solution Pen-injector (Tirzepatide)Indica tions:Type 2 diabetes mellitus with hemoglobin A1c goal of 7.0%-8.0% ([facility]),Compulsive eating patterns,Overweight (BMI 25.0-29.9) Inject 7.5 mg under the skin once a week. 2 mL 1 09/03/2023 09/02/2024 Active Isosorbide Mononitrate ER 30 MG Oral Tablet Extended Release 24 Hour (Imdur) Take 1 Tablet by mouth in the morning. 30 Tablet 1 09/03/2023 Active Magnesium 400 MG Oral TabletIndications:R estless legs syndrome Take 1 Tablet by mouth at bedtime. 90 Tablet 1 09/03/2023 Active documented as of this encounter (statuses as of 09/09/2023) Active Problems Problem Noted Date Diagnosed Date [...] as of this encounter (statuses as of 09/09/2023) Resolved Problems Problem Noted Date Diagnosed Date [...] as of this encounter (statuses as of 09/09/2023) Immunizations Name Administration Dates Next Due COVID-19 [...] Sign Reading Time Taken Comments Blood Pressure 100/56 09/09/2023 12:46 PM EDT Pulse 82 09/09/2023 12:46 PM EDT Temperature 36.4 C (97.5 F) 09/09/2023 12:46 PM E DT Respiratory Rate 17 09/09/2023 12:46 PM EDT Oxygen Saturation 95% 09/09/2023 12:46 PM EDT Inhaled Oxygen Concentration - - Weight 91.8 kg (202 lb 6.4 oz) 09/09/2023 12:46 PM EDT Height - - Body Mass Index 30.77 07/20/2023 9:58 AM EDT documented in this encounter Functional Status Functional [...] Progress Notes * Ivonne French PA-C - 09/09/2023 12:56 PM EDT Images from the original note were not included. History of Present Illness Juany Resendez is a 58 year old female that presents for Acute (PAP) Here for pap. Patient's last menstrual period was 09/08/2016. Patient is postmenopausal. No pmpb. Not sexually active. Pap smears have always been normal for her. Mammo current. 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 Post op Extensive ROS Constitutional (f/c/wt/vision/hearing): Negative Resp (cough/sob/davila): Negative CV (cp/palp/fluttering/diaphoresis/davila/pnd):Negative GI (n/v/d/hrtburn): Negative Endo (hair/cold or heat intol/ 3 p's): Negative Neuro (shaking/weak/fatigu/parasthesi/): Negative Skin (rash/easy bruis/xerosis): Negative Psy (si/hi/halluc/): Negative (nocturia/hesit/drib/sexual review): Negative Lymph (swollen glands/b sx's/: Negative Physical Exam Vitals: 09/09/23 1246 Temp: 36.4 C (97.5 F) Pulse: 82 Resp: 17 SpO2: 95% BP: 100/56 BP Readings from Last 3 Encounters: 09/09/23 100/56 09/03/23 110/60 07/20/23 124/60 Wt Readings from Last 3 Encounters: 09/09/23 91.8 kg (202 lb 6.4 oz) 09/03/23 90.2 kg (198 lb 12.8 oz) 07/20/23 88.8 kg (195 lb 12.8 oz) BMI Readings from Last 3 Encounters: 09/09/23 30.77 kg/m 09/03/23 30.23 kg/m 07/20/23 29.77 kg/m Ht Readings from Last 3 Encounters: 07/20/23 1.727 m (5' 8") 07/19/23 1.727 m (5' 8") 06/15/23 1.727 m (5' 8") General: alert, healthy, and no distress Head: [...] refill, no joint deformities, effusion, or inflammation Neuro Exam: alert & oriented x 3 with fluent speech, no focal motor/sensory deficits, gait normal, reflexes normal and symmetric Breasts: Inspection negative, No nipple retraction or dimpling, No nipple discharge or bleeding, Noaxillary or supraclavicular adenopathy, Normal to palpation without dominant masses, Taught monthlybreast self examination Pelvic Exam: External genitalia and vagina anatomy within normal limits, No significant vulvar lesions, No significant vaginal discharge, Cervix normal in appearance without lesions or purulent discharge, Uterus is normal size, shape, and consistency, Adnexea normal bilaterally. No abnormal pelvic masses, Pap obtained with broom Exam (Female): external genitalia and vagina anatomy within normal limits, no vaginal discharge,cervix normal in appearance without lesions or purulent discharge, normal bimanual exam, urethra normal with no lesion or discharge, bladder non tneder Skin: skin color, texture, turgor are normal, no rashes or significant lesions Assessment and Plan Compulsive eating patterns (Primary) - ADULT/PEDS PSYCHIATRY REFERRAL OP NBA (generalized anxiety disorder) - ADULT/PEDS PSYCHIATRY REFERRAL OP Major depressive disorder, single episode, mild (HCC) - ADULT/PEDS PSYCHIATRY REFERRAL OP Pap smear for cervical cancer screening - BRIDGE INSTRUCTOR PAP SCREEN Encounter for gynecological examination without abnormal finding - BRIDGE INSTRUCTOR PAP SCREEN Pap today Wrap-Up Time: I spent a total of 20-29 minutes (exact time 27 mins) on the date of service in preparation, delivery, and documentation of the care provided to Juany Resendez excluding any time spent in the performance of separately billed services. Ivonne French PA-C 09/09/2023 1:17 PM documented in this encounter Nursing Notes * Mounika Sepulveda LPN - 09/09/2023 12:51 PM EDT The patient has been properly identified by confirmation of name and date of . Chief Complaint Patient presents with Acute PAP documented in this encounter Plan of Treatment Upcoming Encounters Date Type Department Care Team (Late st Contact Info) Description 09/17/2023 8:00 AM EST Office Visit Pharmacy, [facility] [address] [facility] 132 [facility] [place] [address] 10/01/2023 8:15 AM EST Imaging Radiology [address] [facility] [place] [address] 10/08/2023 9:15 AM EST Office Visit Podiatry [address] [place] [phone] Nayan [place], [place] [address] [place] [address] 10/14/2023 1:40 PM EST Office Visit [facility] [address] [place] [phone] Ivonne French PA-C [address] [place] [address] 11/12/2023 8:40 AM EST Office [facility] [address] [place] [address] Ivonne French PA-C [address] [place] [address] 11/12/2023 9:30 AM EST Office Visit Cardiology, [facility] [address] [facility] [place] [address] Christian Cardenas PA-C [address] [place] [address] 12/16/2023 1:45 PM EST Office Visit Hematology/Oncology [facility] [address] [facility] [place] [address] Shon Rice MD 200 [place] [address] 12/23/2023 1:00 PM EST Office Visit Neurology, [place] [address] [place] [phone] Oralia Glass MD [address] [place], [place] [phone] 05/10/2024 8:15 AM EDT Office Visit Ophthalmology, [place] [address] [place] [address] Migel Ramires MD 21 [facility] [place] [address] Scheduled Orders Name Type Priority Associated Diagnoses Orde r Schedule BRIDGE INSTRUCTOR PAP SCREEN Pathology Routine Pap smear for cervical cancer screening Encounter for gynecological examination without abnormal finding Ordered: 09/09/2023 Scheduled Procedures Name Priority Associated Diagnoses Date/Ti me COLONOSCOPY FLEXIBLE PROXIMAL DIAGNOSTIC Recall History of colon polyps Scheduled Referrals Name Type Priority Associated Diagnoses Orde r Schedule ADULT/PEDS PSYCHIATRY REFERRAL OP Referral Within 30 days (routine) Compulsive eating patterns NBA (generalized anxiety disorder) Major depressive disorder, single episode, mild (HCC) Ordered: 09/09/2023 Health Maintenance Due Date Last Done Comments [...] this encounter Medical Devices Implanted Type Area Pilot Can Router Device Identifier Shelf Expiration Date Model / Serial / Lot Lens Intraoc 21.0 - [id number] - [id number] Implanted:Qty : 1 on 07/06/2017 by Luis Eduardo Cole MD at OR [facility] Left: Eye [employer] 01/05/2022 [id number] / [id number] / Lens Intraoc 21.0 - [id number] - [id number] Implanted:Qty : 1 on 07/20/2017 by Luis Eduardo Cole MD at OR [facility] Right: Eye [employer] 01/05/2022 [id number] / [id number] / Syringe Prolaryn Del 1.0cc - [id number] Implanted:Qty : 1 on 11/20/2019 by Amber Jain MD at [place] [facility] Right: Mouth [employer] 10/21/2021 [id number] / / [id number] Implant Silastic 7 Silicone Sw - [id number] Implanted:Qty : 1 on 05/28/2020 by Farhat Pate MD at [place] [facility] Right: Throat [id number] / / documented as of this encounter Visit Diagnoses Diagnosis Compulsive eating patterns- Primary Eating disorder, unspecified NBA (generalized anxiety disorder) Generalized anxiety disorder Major depressive disorder, single episode, mild (HCC) Major depressive disorder, single episode, mild Pap smear for cervical cancer screening Screening for malignant neoplasm of the cervix Encounter for gynecological examination without abnormal finding Routine gynecological examination documented in this encounter Advance Directives Latest [...] and were consensually agreed upon. Care Teams General Magistrate Relationship Specialty Start Date End Date Ivonne French PA-C [address] [place] [address] PCP - General Physician Laminating Machine Operator 07/24/21 documented as of this encounter
--- OUTSIDE RECORDS SUMMARY | 2024-01-29 21:41 | External Medical Summary | Summary of Care ---
Author Name Unknown Organization [facility] Address [address] [facility] [address] Phone [phone] Care Team Providers Care Electrotyper Apprentice Name Role Phone Ivonne French PA-C Primary Care Provider [phone] Reason for Visit * Reason Onset Date Comments FYI 06/15/2023 Encounter Details Date Type Department Care Team (Late st Contact Info) Description 06/15/2023 Telephone [facility] [address] [place] [address] Ivonne French PA-C [address] [place] [address] FYI Allergies Active Allergy Reactions Criticality Noted Date Comments Adhesive Tape 04/21/2016 Glue off the old style medical tape. documented as of this encounter (statuses as of 09/14/2023) Medications Medication Sig Dispensed Refills Start Date End Date Status Aspirin 81 MG Tablet Take 1 Tablet by mouth in the morning. 0 Active DULoxetine HCl 60 MG Oral Capsule Delayed Release Particles (Cymbalta) Take 1 Capsule by mouth in the morning. 180 Capsule 0 11/24/2022 Active amLODIPine Besylate 2.5 MG Oral Tablet (Norvasc)Indications :Essential hypertension with goal blood pressure less than 130/80 Take 1 Tablet by mouth in the morning. 90 Tablet 3 05/25/2023 Active Insulin Glargine Solostar 100 UNIT/ML Subcutaneous Solution Pen-injector (Lantus SoloStar) Inject 30 Units under the skin at bedtime. 30 mL 3 05/25/2023 Active Lactulose 10 GM/15ML Oral Solution (Constulose)Indicati ons:Constipation, unspecified constipation type Take 30 mL by mouth in the morning and 30 mL at noon and 30 mL before bedtime. 240 mL 0 05/25/2023 Active Linzess 72 MCG Oral Capsule (linaCLOtide)Indicat ions:Drug-induced constipation Take 1 Capsule by mouth daily before breakfast. 90 Capsule 05/25/2023 Active Melatonin 10 MG Oral Capsule Take 1 Capsule by mouth at bedtime. 100 Capsule 3 05/25/2023 Active metFORMIN HCl 1000 MG Oral Tablet (Glucophage)Indicati ons:Type 2 diabetes mellitus with hemoglobin A1c goal of 7.0%-8.0% (HCC) TAKE ONE TABLET BY MOUTH TWICE A DAY WITH MORNING AND EVENING MEALS 180 Tablet 05/25/2023 Active Metoprolol Succinate ER 25 MG Oral Tablet Extended Release 24 Hour (toPROL XL)Indications:Coron jo ann artery disease involving citizen [place] coronary artery of citizen [place] heart without angina pectoris Take 1.5 Tablets [...] Capsule before bedtime. 180 Capsule 05/25/2023 Active OneTouch Delica Lancets 33G Use to test blood sugar three times daily E 11.9 300 Each 05/25/2023 Active OneTouch Verio w/Device Kit Use up to 3 times a day E11.9 1 Kit 0 05/25/2023 Active Pen [place] 32G X 4 MM Use as directed. Use to inject insulin 4 times daily 100 Each 05/25/2023 Active Triamcinolone Acetonide 0.1 % External Ointment (Aristocort)Indicati ons:Contact dermatitis, unspecified contact dermatitis type, unspecified trigger Apply topically to affected area 2 times a day. Apply to hands and feet 80 g 2 05/25/2023 Active Furosemide 20 MG Oral Tablet (Lasix)Indications:E glen, unspecified type Take 1 Tablet by mouth once a day on Wednesday, Wednesday, and Wednesday only. 90 Tablet 3 06/14/2023 Active documented as of this encounter (statuses as of 09/14/2023) Active Problems Problem Noted Date Diagnosed Date [...] as of this encounter (statuses as of 09/14/2023) Resolved Problems Problem Noted Date Diagnosed Date [...] as of this encounter (statuses as of 09/14/2023) Immunizations Name Administration Dates Next Due COVID-19 [...] encounter Miscellaneous Notes * Telephone Encounter - Socorro Velez OSA - 06/15/2023 3:14 PM EDT Felicitas with [facility] calling to verify patient appointment. documented in this encounter Plan of Treatment Upcoming Encounters Date Type Department Care Team ([facility] st Contact Info) Description 09/17/2023 8:00 AM EST Office Visit Pharmacy, [facility] [address] [facility] [place] [address] [facility] [address] [facility] [place] [address] 10/01/2023 8:15 AM EST Imaging Radiology [facility] [address]st [facility] [address] [place] [address] 10/08/2023 9:15 AM EST Office Visit Podiatry [address] [place] [phone] Nayan Franklin, DPM [address] [place] [address] 10/14/2023 1:40 PM EST Office Visit [facility], [place] [address] [place] [place] [address] Ivonne French PA-C [address], [place] [id number] 11/12/2023 8:40 AM EST Office Visit [facility], [place] [address] [place] [address] Ivonne French PA-C [address] [place] [address] 11/12/2023 9:30 AM EST Office Visit Cardiology, [facility] [address] [facility] [place] [address] Christian Cardenas PA-C [address] [facility] [address] 12/16/2023 1:45 PM EST Office Visit Hematology/Oncology [facility] [address] [place] [address] Shon Rice MD [address] [place] [address] 12/23/2023 1:00 PM EST Office Visit Neurology, [place] [address] [place] [address] Oralia Glass MD [address] [place] [address] 05/10/2024 8:15 AM EDT Office Visit Ophthalmology, [place] [address] [facility] [place] [address] Migel Ramires MD [address] [place] [address] Scheduled Procedures Name Priority Associated Diagnoses Date/Ti [...] this encounter Medical Devices Implanted Type Area Assistant Women'S Tennis Coach Device Identifier Shelf Expiration Date Model / Serial / Lot Lens Intraoc 21.0 - [id number] - [id number] Implanted:Qty : 1 on 07/06/2017 by Luis Eduardo Cole MD at OR [facility] Left: Eye [employer] 01/05/2022 [id number] / [id number] / Lens Intraoc 21.0 - [id number] - [id number] Implanted:Qty : 1 on 07/20/2017 by Luis Eduardo Cole MD at OR [facility] Right: Eye [employer] 01/05/2022 [id number] / [id number] / Syringe Prolaryn Del 1.0cc - [id number] Implanted:Qty : 1 on 11/20/2019 by Amber Jain MD at OR [facility] Right: Mouth [employer] 10/21/2021 [id number] / / [id number] Implant Silastic 7 Silicone Sw - [id number] Implanted:Qty : 1 on 05/28/2020 by Farhat Pate MD at OR [facility] Right: Throat dianboom [id number] / / documented as of this [...] and were consensually agreed upon. Care Teams Electrotyper Apprentice Relationship Specialty Start Date End Date Ivonne French PA-C [address] [place] [address] PCP - General Physician Storage And Backup Administrator 07/24/21 documented as of this encounter
--- OUTSIDE RECORDS SUMMARY | 2024-01-29 21:41 | External Medical Summary | Summary of Care ---
Author Name Unknown Organization [facility] Address [address] [place] [address] Phone [phone] Care Team Providers Care Retail Analytics Manager Name Role Phone Ivonne French PA-C Primary Care Provider [phone] Reason for Visit * Reason Comments Follow Up No concerns Encounter Details Date Type Department Care Team (Late st Contact Info) Description 10/14/2023 1:40 PM EST Office Visit [facility] [address] [place] [address] Ivonne French PA-C [address] [place] [address] Encounter for screening mammogram for breast cancer*; Drug-induced constipation; Coronary artery disease involving holy cross coronary artery of holy cross heart without angina pectoris; Essential hypertension with goal blood pressure less than 130/80; Toe amputee (HCC); OBESITY, BMI 30-34 (SEE ACTUAL BMI) Allergies Active Allergy Reactions Criticality Noted Date Comments Adhesive Tape 04/21/2016 Glue off the old style medical tape. documented as of this encounter (statuses as of 10/14/2023) Medications Medication Sig Dispensed Refills Start Date [...] A1c goal of 7.0%-8.0% ([facility]) TAKE ONE TABLET BY MOUTH TWICE A DAY WITH MORNING AND EVENING MEALS 180 Tablet 1 05/25/2023 Active CONSTRVCTTouch Delica Lancets 33G Use to test blood sugar three times daily E 11.9 300 Each 5 05/25/2023 Active OneTouch Verio w/Device Kit Use up to 3 times a day E11.9 1 Kit 0 05/25/2023 Active Pen [place] 32G X 4 MM Use as [...] Wednesday only. 90 Tablet 3 06/14/2023 Active CONSTRVCTToRadiojar Verio In Vitro Strip (Glucose Blood) Use [...] Hour (toPROL XL)Indications:Cor onary artery disease involving holy cross coronary artery of holy cross heart without angina pectoris Take 1.5 Tablets [...] the morning. 90 Tablet 3 10/14/2023 Active amLODIPine Besylate 2.5 MG Oral Tablet (Norvasc)Indicatio ns:Essential hypertension with goal blood pressure less than 130/80 Take 1 Tablet by mouth in the morning. 90 Tablet 3 05/25/2023 3 Discontinue d(Refill) Linzess 72 MCG Oral Capsule (linaCLOtide)Indic ations:Drug-induce d constipation Take 1 Capsule by mouth daily before breakfast. 90 Capsule 1 05/25/2023 3 Discontinue d(Refill) Metoprolol Succinate ER 25 MG Oral Tablet Extended Release 24 Hour (toPROL XL)Indications:Cor onary artery disease involving holy cross coronary artery of holy cross heart without angina pectoris Take 1.5 Tablets by mouth in the morning. 135 Tablet 1 05/25/2023 3 Discontinue d(Refill) Omeprazole 20 MG Oral Capsule Delayed Release (PriLOSEC) Take 1 Capsule by mouth in the morning and 1 Capsule before bedtime. 180 Capsule 1 05/25/2023 3 Discontinue d(Refill) documented as of this encounter (statuses as of 10/14/2023) Active Problems Problem Noted Date Diagnosed Date [...] as of this encounter (statuses as of 10/14/2023) Resolved Problems Problem Noted Date Diagnosed Date [...] as of this encounter (statuses as of 10/14/2023) Immunizations Name Administration Dates Next Due COVID-19 [...] Sign Reading Time Taken Comments Blood Pressure 104/56 10/14/2023 1:28 PM EST Pulse 82 10/14/2023 1:28 PM EST Temperature 36.5 C (97.7 F) 10/14/2023 1:28 PM ES T Respiratory Rate 16 10/14/2023 1:28 PM EST Oxygen Saturation 96% 10/14/2023 1:28 PM EST Inhaled Oxygen Concentration - - Weight 90.1 kg (198 lb 9.6 oz) 10/14/2023 1:28 P M EST Height 172.7 cm (5' 8") 10/14/2023 1:28 PM EST Body Mass Index 30.2 10/14/2023 1:28 PM EST documented in this encounter Functional [...] Progress Notes * Ivonne French PA-C - 10/14/2023 1:37 PM EST Images from the original note were not included. History of Present Illness Juany Resendez is a 58 year old female that presents for Follow Up (No concerns/) Here for regular return. Need refills of her linzess , norvasc and metoprolol. Wants to know if she can drink liquid IV. Has a surgery date for her toe on November 15. There is a doctor at [place]. They are going to take her toe down to the next knuckle. There is apparently some calcification that is causing issues.This is Dr Franklin. She has been using peroxide to clear them. Down 4 lbs since last month. Taking her 10 mg of mounjaro now. This was her first dose of it. No other concerns. 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 Post op Physical Exam Vitals: 10/14/23 1328 Temp: 36.5 C (97.7 F) Pulse: 82 Resp: 16 SpO2: 96% BP: 104/56 BMI: 30.2 BP Readings from Last 3 Encounters: 10/14/23 104/56 09/09/23 100/56 09/03/23 110/60 Wt Readings from Last 3 Encounters: 10/14/23 90.1 kg (198 lb 9.6 oz) 09/09/23 91.8 kg (202 lb 6.4 oz) 09/03/23 90.2 kg (198 lb 12.8 oz) BMI Readings from Last 3 Encounters: 10/14/23 30.20 kg/m 09/09/23 30.77 kg/m 09/03/23 30.23 kg/m Ht Readings from Last 3 Encounters: 10/14/23 1.727 m (5' 8") 07/20/23 1.727 m (5' 8") 07/19/23 1.727 m (5' 8") General: alert, healthy, and no distress Head: Normocephalic, No masses, lesions, tenderness or abnormalities Heart: regular rate & rhythm, no murmur, no gallops, S-1 normal, and S-2 normal Lungs: chest symmetric with normal AP diameter, no chest deformities noted, no chest wall tenderness, lungs clear to auscultation Extremities: less than 2 second capillary refill Skin: skin color, texture, turgor are normal, R great toe - partial avulsion of the nail of the great toe. Skin is irritated but not infected. Assessment and Plan Encounter for screening mammogram for breast cancer (Primary) - MAMMOGRAM SCREENING CONRADO BILATERAL; Future; Expected date: 01/29/2024 Drug-induced constipation - Linzess 72 MCG Oral Capsule (linaCLOtide); Take 1 Capsule by mouth daily before breakfast. Coronary artery disease involving holy cross coronary artery of holy cross heart without angina pectoris - Metoprolol Succinate ER 25 MG Oral Tablet Extended Release 24 Hour (toPROL XL); Take 1.5 Tablets by mouth in the morning. Essential hypertension with goal blood pressure less than 130/80 - amLODIPine Besylate 2.5 MG Oral Tablet (Norvasc); Take 1 Tablet by mouth in the morning. Toe amputee ([facility]) - seeing Dr Franklin OBESITY, BMI 30-34 (SEE ACTUAL BMI) Cont on Mounjaro at 10 mg dose Revisit next month Congratulated on 4 lb weight loss. Other orders - Omeprazole 20 MG Oral Capsule Delayed Release (PriLOSEC); Take 1 Capsule by mouth in the morning and 1 Capsule before bedtime. Follow Up: Return in about 9 weeks (around 12/16/2023) for reg return . | For: reg return | Check-outnote: Mammo due january Wrap-Up Refills done Labs current Mammo due january Time: I spent a total of 10-19 minutes (exact time 18 mins) on the date of service in preparation, delivery, and documentation of the care provided to Juany Resendez excluding any time spent in the performance of separately billed services. Ivonne French PA-C 10/14/2023 1:48 PM documented in this encounter Nursing Notes * Lianet Carrizales Student - 10/14/2023 1:31 PM EST Chief Complaint Patient presents with Follow Up No concerns documented in this encounter Plan of Treatment Upcoming Encounters Date Type Department Care Team (Latest Contact Info) Description 11/09/2023 2:40 PM EST Office Visit Family [facility], [place] [address] [facility] [address] Ivonne French PA-C [address] [place] [address] 11/12/2023 9:30 AM EST Office Visit Cardiology, [facility] [address] [facility] [place] [address] Christian Cardenas PA-C [address] [place] [address] 11/15/2023 7:30 AM EST Hospital Encounter OR [facility], Operating Room, [facility] 1st Floor [address] [place] [address] Nayan Franklin, [facility] [address] [place] [address] 11/15/2023 7:30 AM EST - 11/15/2023 8:23 AM EST Surgery OR [facility], Operating Room, [facility] 1st Floor [address] [place] [address] Nayan Franklin, [address] [address] AMPUTATION TOE METATARSOPHALANGEAL JOINT 11/19/2023 8:00 AM EST Office Visit Pharmacy, [facility] [address] [facility] [place] [address] [facility] [place] [address] 11/19/2023 9:15 AM EST Office Visit Podiatry [address] [place] [phone] Nayan Franklin, DPM [address] [place] [address] 11/26/2023 9:15 AM EST Office Visit Podiatry [address] [place] [address] Nayan Franklin, DP [address] [place] [address] 12/16/2023 11:20 AM EST Office Visit Family [facility] [address] [place] [address] Ivonne French PA-C [address] [place] [address] 12/16/2023 1:45 PM EST Office Visit Hematology/Oncolo gy [facility] [address] [place] [address] Shon Rice MD [address] [place] [address] 12/23/2023 1:00 PM EST Office Visit Neurology, [place] [address] [place] [address] Oralia Glass MD [address] [place] [address] 01/31/2024 9:00 AM EDT Imaging Radiology [facility] 1st [facility] [address] [facility] [place] [address] 05/10/2024 8:15 AM EDT Office Visit Ophthalmology, [place] [address] Migel Ramires MD [address] [place] [address] Scheduled Orders Name Type Priority Associated Diagnoses Orde r Schedule MAMMOGRAM SCREENING CONRADO BILATERAL Medical Imaging Routine Encounter for screening mammogram for breast cancer Expected: 01/29/2024, Expires: 11/14/2024 Scheduled Procedures Name Priority Associated Diagnoses Date/Ti me AMPUTATION TOE METATARSOPHALANGEAL JOINT Osteomyelitis of great toe of left foot (HCC) 11/15/2023 7:30 AM EST COLONOSCOPY FLEXIBLE PROXIMA [...] < 10) 12/26/2022 12/25/2022 COVID-19 Vaccine ( - 2022- season) 2023 08/19/2021, 07/22/2021 Influenza [...] this encounter Medical Devices Implanted Type Area Biofuels Plant Superintendent Device Identifier Shelf Expiration Date Model / Serial / Lot Lens Intraoc 21.0 - [id number] - [id number] Implanted:Qty : 1 on 07/06/2017 by Luis Eduardo Cole MD at OR [facility] Left: Eye [employer] 01/05/2022 [id number] / [id number] / Lens Intraoc 21.0 - [id number] - [id number] Implanted:Qty : 1 on 07/20/2017 by Luis Eduardo Cole MD at OR [facility] Right: Eye [employer] 01/05/2022 [id number] / [id number] / Syringe Prolaryn Del 1.0cc - [id number] Implanted:Qty : 1 on 11/20/2019 by Amber Jain MD [place] [facility] Right: Mouth [employer] 10/21/2021 [id number] / / [id number] Implant Silastic 7 Silicone Sw - [id number] Implanted:Qty : 1 on 05/28/2020 by Farhat Pate MD at [place] [facility] Right: Throat [employer] [id number] / / documented as of this encounter Visit Diagnoses Diagnosis Encounter for screening mammogram for breast cancer- Primary Drug-induced constipation Other constipation Coronary artery disease involving holy cross coronary artery of holy cross heart without angina pectoris Essential hypertension with goal blood pressure less than 130/80 Toe amputee (HCC) OBESITY, BMI 30-34 (SEE ACTUAL BMI) Obesity, unspecified Osteomyelitis of great toe of left foot [...] were consensually agreed upon. Care Teams Retail Analytics Manager Relationship Specialty Start Date End Date Ivonne French PA-C [address] [facility] [place] [address] PCP - General Physician Transplant Worker 07/24/21 documented as of this encounter
--- OUTSIDE RECORDS SUMMARY | 2024-01-29 21:41 | External Medical Summary | Summary of Care ---
Author Name Unknown Organization [facility] Address [address] [place] [facility] [address] Phone [phone] Care Team Providers Care Lawn Care Professional Name Role Phone Ivonne French PA-C Primary Care Provider [phone] [phone] Reason for Visit * Reason Comments Follow Up DM, MRI Encounter Details Date Type Department Care Team ([facility] st Contact Info) Description 10/08/2023 9:15 AM EST Office Visit Podiatry [address] [place] [address] Nayan Franklin, EVANGLEINA [address] [place] [address] Status post amputation of great toe, left (HCC)*; Pain of great toe, left; Osteomyelitis of great toe of left foot (HCC) Allergies Active Allergy Reactions Criticality Noted Date Comments Adhesive Tape 04/21/2016 Glue off the old style medical tape. 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 135 Tablet 1 05/25/2023 Active Omeprazole 20 MG Oral Capsule Delayed Release (PriLOSEC) Take 1 Capsule by mouth in the morning and 1 Capsule before bedtime. 180 Capsule 1 05/25/2023 Active Von BismarkToSgnam Delica Lancets 33G Use to test blood sugar three times daily E 11.9 300 Each 05/25/2023 Active Von BismarkTouch Verio w/Device Kit Use up to 3 times a day E11.9 1 Kit 0 05/25/2023 Active Pen Lothair 32G X 4 MM Use as directed. [...] Wednesday only. 90 Tablet 3 06/14/2023 Active OneTouch Verio In Vitro Strip (Glucose [...] week. 6 mL 1 09/09/2023 09/08/2024 Active NovoLOG FlexPen 100 UNIT/ML Subcutaneous Solution Pen-injector (insulin aspart) Inject 20 Units under the skin in the morning and 20 Units at noon and 20 Units in the evening. Inject with meals. 45 mL 3 09/17/2023 Active Insulin Glargine Solostar 100 UNIT/ML Subcutaneous Solution Pen-injector (Lantus SoloStar) Inject 35 Units under the skin at bedtime. 45 mL 3 09/17/2023 Active documented as of this encounter (statuses as of 10/08/2023) Active Problems Problem Noted Date Diagnosed Date [...] as of this encounter (statuses as of 10/08/2023) Resolved Problems Problem Noted Date Diagnosed Date [...] as of this encounter (statuses as of 10/08/2023) Immunizations Name Administration Dates Next Due COVID-19 [...] as of this encounter Progress Notes * Nayan Franklin, EVANGELINA - 10/08/2023 9:19 AM EST Subjective: Patient presents in office today for review of MRI results. Patient states that the end of her leftgreat toe gets ivory red by the end of the day and very painful. Patient states that the stump of the big toe rubs against her 2nd toe HISTORY Past Medical History: Diagnosis Date Diabetic neuropathy [...] DIAGNOSTIC (RECTUM) 12/16/2016 adenomatous polyps, repeat 5 yrs/[facility] COLONOSCOPY, DIAGNOSTIC (RECTUM) 06/03/2022 diverticulosis, fair prep, repeat 5 yrs / [facility] EGD, FLEXIBLE, DIAGNOSTIC 12/16/2016 normal bx/[facility] EGD, FLEXIBLE, W/BIOPSY 07/30/2010 esophagitis, await BX LARYNGOPLASTY MEDIALIZATION UNILATERAL Right 05/28/2020 LARYNGOPLASTY, MEDIALIZATION UNILATERAL performed by Farhat Pate MD at [facility] LARYNGOSCOPY, VOCAL CORD INJECTION Right 11/20/2019 LARYNGOSCOPY DIRECT INJECTION VOCAL CORD WITH MICROSCOPE performed by Amber Jain MD at [facility] MISCELLANEOUS ORDER ([facility] ONLY) Bilateral 11/24/2017 Reinheimer-bleph/levators-ou OTHER (3 times) 8 inch 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 Vazquez REMOVE CATARACT, INSERT LENS PROSTH Right 07/20/2017 right EXTRACAPSULAR CATARACT REMOVAL WITH INTRAOCULAR LENS performed by Luis Eduardo Cole MD at [facility] REMOVE CATARACT, INSERT LENS PROSTH Left 07/06/2017 left EXTRACAPSULAR CATARACT REMOVAL WITH INTRAOCULAR LENS performed by Luis Eduardo Cole MD at [facility] REMOVE GALLBLADDER 2005 or so Family History Problem Relation Age of Onset [...] on file Housing Stability: Not on file Current Outpatient Medications Medication Sig Dispense Refill Aspirin 81 MG Tablet Take 1 Tablet by mouth in the morning. DULoxetine HCl 60 MG Oral Capsule Delayed Release Particles (Cymbalta) Take 1 Capsule by mouth in the morning. 180 Capsule 0 amLODIPine Besylate 2.5 MG Oral Tablet (Norvasc) Take 1 Tablet by mouth in the morning. 90 Tablet 3 Lactulose 10 GM/15ML Oral Solution (Constulose) Take 30 mL by mouth in the morning and 30 mL at noon and 30 mL before bedtime. 240 mL 0 Linzess 72 MCG Oral Capsule (linaCLOtide) Take 1 Capsule by mouth daily before breakfast. 90 Capsule 1 Melatonin 10 MG Oral Capsule Take 1 Capsule by mouth at bedtime. 100 Capsule 3 metFORMIN HCl 1000 MG Oral Tablet (Glucophage) TAKE ONE TABLET BY MOUTH TWICE A DAY WITH MORNING AND EVENING MEALS 180 Tablet 1 Metoprolol Succinate ER 25 MG Oral Tablet Extended Release 24 Hour (toPROL XL) Take 1.5 Tablets by mouth in the morning. 135 Tablet 1 Omeprazole 20 MG Oral Capsule Delayed Release (PriLOSEC) Take 1 Capsule by mouth in the morning and1 Capsule before bedtime. 180 Capsule 1 Von BismarkToSgnam Delica Lancets 33G Use to test blood sugar three times daily E 11.9 300 Each 5 OneTouch Verio w/Device Kit Use up to 3 times a day E11.9 1 Kit 0 Pen Lothair 32G X 4 MM Use as directed. [...] Wednesday, and Wednesday only. 90 Tablet 3 OneTouch Verio In Vitro [...] skin once a week. 6 mL 1 NovoLOG FlexPen 100 UNIT/ML Subcutaneous Solution Pen-injector (insulin aspart) Inject 20 Units under the skin in the morning and 20 Units at noon and 20 Units in the evening. Inject with meals. 45 mL 3 Insulin Glargine Solostar 100 UNIT/ML Subcutaneous Solution Pen-injector (Lantus SoloStar) Inject 35 Units under the skin at bedtime. 45 mL 3 No current facility-administered medications for this visit. ROS EXAM: CONSTITUTIONAL: No change in weight, No weakness, No fatigue, and No fevers, sweats, or chills EXTREMITIES: No pain, redness or swelling on the joints SKIN/INTEGUMENTARY: No edema, No rash, and No itching NEUROLOGIC: Normal balance, No headaches, No seizures, and No weakness Objective: Vascular examination: DP 2/4 PT 1/4 SPVFT 3sec Dermatological examination: mild erythema of distal stump left great toe Orthopedic examination: pain upon palpation of left great toe stump Neurological examination: Epicritic sensation intact Radiological: Again noted are postoperative changes of partial hallux amputation, including the distal phalanx and distal portion of the proximal phalanx. Minimal subcortical edema at what remains ofthe proximal phalanx is unchanged and is felt to be postoperative in nature. There is no significant bone marrow edema, enhancement, or loss of T1 marrow signal to suggest recurrent or residual osteomyelitis. No evidence of abscess. Diffuse atrophy of the intrinsic forefoot musculature. Assessment: The primary encounter diagnosis was Status post amputation of great toe, left (HCC). Diagnoses of Pain of great toe, left and Osteomyelitis of great toe of left foot (HCC) were also pertinent to thisvisit. Plan: Reviewed MRI results with patient. Patient told that MRI did not reveal osteomyelitis however the only truly definitive is a bone culture Patient wants to have revisional amputation since pain and redness are continuing and she can no longer put up with it Consent form gone over thoroughly with patient and signed. All questions answered and no guaranteesgiven. documented in this encounter Nursing Notes * Kristen Nagel MED ASSIST - 10/08/2023 8:59 AM EST DM, MRI documented in this encounter Plan of Treatment Upcoming Encounters Date Type Department Care Team (Late st Contact Info) Description 10/14/2023 1:40 PM EST Office [facility] [address] [facility] [address] Ivonne French PA-C [address] [facility] [place] [address] 11/12/2023 8:40 AM EST Office Visit [facility] [address] [facility] [place] [phone] Ivonne French PA-C [address] [place] [address] 11/12/2023 9:30 AM EST Office Visit Cardiology, [facility] [address] [facility] [place] [address] Christian Cardenas PA-C [address] [facility] [place], [place] [address] 11/19/2023 8:00 AM EST Office Visit Pharmacy, [facility] [address] [facility] [place] [address] [facility] 132 [facility] [place] [address] 12/16/2023 1:45 PM EST Office Visit Hematology/Oncology [facility] [address] [place] [address] Shon Rice MD 200 [place] [address] 12/23/2023 1:00 PM EST Office Visit Neurology, [place] [address] [place] [address] Oralia Glass MD [address] [place], [place] [address] 05/10/2024 8:15 AM EDT Office Visit Ophthalmology, [place] [address] [place] [address] Migel Ramries MD [address] [place] [address] Scheduled Procedures Name Priority Associated Diagnoses Date/Ti [...] this encounter Medical Devices Implanted Type Area [employer] Sales Consultant Device Identifier Shelf Expiration Date Model / Serial / Lot Lens Intraoc 21.0 - [id number] - [id number] Implanted:Qty : 1 on 07/06/2017 by Luis Eduardo Cole MD at OR [facility] Left: Eye BAUSCH & LOMB 01/05/2022 [id number] / [id number] / Lens Intraoc 21.0 - [id number] - [id number] Implanted:Qty : 1 on 07/20/2017 by Luis Eduardo Cole MD at OR [facility] Right: Eye BAUSCH & LOMB 01/05/2022 [id number] / [id number] / Syringe Prolaryn Del 1.0cc - [id number] Implanted:Qty : 1 on 11/20/2019 by Amber Jain MD [place] [facility] [place]: Mouth [employer] 10/21/2021 [id number] / / [id number] Implant Silastic 7 Silicone Sw - [id number] Implanted:Qty : 1 on 05/28/2020 by Farhat Pate MD [place] [facility] [place]: Throat [employer] [id number] / / documented as of this encounter Visit Diagnoses Diagnosis Status post amputation of great toe, left (HCC)- Primary Pain of great toe, left Osteomyelitis of great toe of left foot [...] and were consensually agreed upon. Care Teams Lawn Care Professional Relationship Specialty Start Date End Date Ivonne French PA-C [address] [place] [address] PCP - General Physician Butter Grader 07/24/21 documented as of this encounter
--- OUTSIDE RECORDS SUMMARY | 2024-01-29 21:41 | External Medical Summary ---
Author Name Unknown Address Unknown Organization [id number]:LABORATORY [facility] - [facility] [address] [place] [address] Laboratory Report Ordering Provider Test Date Status NATY WELLINGTON 11/09/2023 15:17:15 Final Observation Date Value Abnormality Reference (Units ) Status WBC, Total 11/09/2023 15:17:15 5.95 4.00-10.8 0 (K/uL) Final RBC 11/09/2023 15:17:15 4.85 3.85-5.15 (M/uL) Final Hemoglobin 11/09/2023 15:17:15 13.4 12.0-15.3 (g/dL) Final Anemia reflex testing trigge rs on a HGB < 12.0 for Females and HGB < 13.0 for Males in accordance with the WHO Anemia Guidelines
Anemia reflex testing triggers on a HGB < 12.0 for Females and HGB < 13.0 for Males in accordance with the WHO Anemia Guidelines HCT 11/09/2023 15:17:15 41.7 36.0-45.2 (%) Final MCV 11/09/2023 15:17:15 86.0 81.5-97.5 (fL) Final MCH 11/09/2023 15:17:15 27.6 27.0-34.0 (pg) Final MCHC 11/09/2023 15:17:15 32.1 32.0-36.0 (g/dL) Final RDW 11/09/2023 15:17:15 17.9 11.5-15.5 (%) Final Platelets 11/09/2023 15:17:15 141 140-400 (K /uL) Final MPV 11/09/2023 15:17:15 9.2 6.6-11.1 ( fL) Final Nucleated erythrocytes/100 leukocytes [Ratio] in Blood by Automated count 11/09/2023 15:17:15 1 Above high normal <=0 (/100 WBCs) Final Performing Location LAB[facility]ATORY [facility] - [address] [facility] [address]
--- OUTSIDE RECORDS SUMMARY | 2024-01-29 21:41 | External Medical Summary ---
Author Name Unknown Address Unknown Organization K01:LABORATORY [facility] - [address] [place] [address] Laboratory Report Ordering Provider Test Date Status SAMI KAY 11/09/2023 15:17:15 Final Observation Date Value Abnormality Reference (Units ) Status MYCODE SPECIMEN-SST 11/09/2023 15:17:15 Freezing of extracted DNA, whole blood and/or serum. Final Performing Location LAB[facility]ATORY C - [address] [facility] [address]
--- OUTSIDE RECORDS SUMMARY | 2024-01-29 21:41 | External Medical Summary | Summary of Care ---
Author Name Unknown Organization [facility] Address [address] [place] [place] [place] [address] Phone [phone] Care Team Providers Care School Bus Driver/Custodian Name Role Phone Ivonne French PA-C Primary Care Provider +1 [phone] Reason for Visit * Reason Onset Date Comments Med Request 10/19/2023 Encounter Details Date Type Department Care Team ([facility] st Contact Info) Description 10/19/2023 Telephone [facility] [address] [place] [address] Ivonne French PA-C [address] [place] [address] Med Request Allergies Active Allergy Reactions Criticality Noted Date Comments Adhesive Tape 04/21/2016 Glue off the old style medical tape. documented as of this encounter (statuses as of 10/19/2023) Medications Medication Sig Dispensed Refills Start Date [...] EVENING MEALS 180 Tablet 1 05/25/2023 Active Proteus Digital HealthTouch Delica Lancets 33G Use to test blood sugar three times daily E 11.9 300 Each 5 05/25/2023 Active OneTouch Verio w/Device Kit Use up to 3 times a day E11.9 1 Kit 0 05/25/2023 Active Pen [place] 32G X 4 MM Use as directed. [...] Wednesday only. 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 90 Tablet 3 10/14/2023 Active Mupirocin 2 % External Ointment (Bactroban) Apply topically to affected area 3 times a day for 14 days. Apply to affected area. 22 g 1 10/19/2023 11/02/2023 Active documented as of this encounter (statuses as of 10/19/2023) Active Problems Problem Noted Date Diagnosed Date [...] as of this encounter (statuses as of 10/19/2023) Resolved Problems Problem Noted Date Diagnosed Date [...] as of this encounter (statuses as of 10/19/2023) Immunizations Name Administration Dates Next Due COVID-19 [...] encounter Miscellaneous Notes * Telephone Encounter - Angelica Keenan LPN - 10/19/2023 10:34 AM EST Patient requesting Rx for mupirocen ointment * Telephone Encounter - Yue Long OSA - 10/19/2023 8:02 AM EST Patient was given a sample of ointment during last visit for her toe. Patient would like to have a refill. This was for Mupirocin. Any question please contact patient. GILBERT Yeager documented in this encounter Plan of Treatment Upcoming Encounters Date Type Department Care Team (Latest Contact Info) Description 11/09/2023 2:40 PM EST Office Visit [place] [address] [place] [address] Ivonne French PA-C [address] [place] [address] 11/12/2023 9:30 AM EST Office Visit Cardiology, [facility] [address] [facility] [place] [address] Christian Cardenas PA-C [address] [facility] [place] [address] 11/15/2023 7:30 AM EST Hospital Encounter OR [facility], Operating Room, [facility] 1st Floor [address] [place] [address] Nayan Franklin DPM [address] [place] [address] 11/15/2023 7:30 AM EST - 11/15/2023 8:23 AM EST Surgery OR [facility], Operating Room, [facility] 1st Floor [address] [place] [address] Nayan Franklin, DP [address] [place] [address] AMPUTATION TOE METATARSOPHALANGEAL JOINT 11/19/2023 8:00 AM EST Office Visit Pharmacy, [facility] 132 [facility] [place] [address] [facility] [address] [place] [address] 11/19/2023 9:15 AM EST Office Visit Podiatry [address] [place] [address] Nayan Franklin, DP [address] [place] [address] 11/26/2023 9:15 AM EST Office Visit Podiatry [address] [place] [address] Nayan Franklin, [address] [address] 12/16/2023 11:20 AM EST Office Visit [facility] [address] [place] [phone] Ivonne French PA-C [address] [place] [address] 12/16/2023 1:45 PM EST Office Visit Hematology/Oncolo gy [facility] [place] [address] [place] [address] Shon Rice MD [address] [place] [address] 12/23/2023 1:00 PM EST Office Visit Neurology, [place] [address] [place] [address] Oralia Glass MD [address] [place] [address] 01/31/2024 9:00 AM EDT Imaging Radiology [facility] 1st [facility] [place] [address] [place] [address] 05/10/2024 8:15 AM EDT Office Visit Ophthalmology, [place] [address] [place] [address] Migel Ramires MD [address] [place] [address] Scheduled Procedures Name Priority Associated Diagnoses Date/Ti [...] this encounter Medical Devices Implanted Type Area Street Railway Line Installer Device Identifier Shelf Expiration Date Model / Serial / Lot Lens Intraoc 21.0 - [id number] - [id number] Implanted:Qty : 1 on 07/06/2017 by Luis Eduardo Cole MD at OR [facility] Left: Eye [employer]OM[employer] 01/05/2022 [id number] / [id number] / Lens Intraoc 21.0 - [id number] - [id number] Implanted:Qty : 1 on 07/20/2017 by Luis Eduardo Cole MD at OR [facility] Right: Eye BAUSCH [employer] LOMB 01/05/2022 [id number] / [id number] / Syringe Prolaryn Del 1.0cc - [id number] Implanted:Qty : 1 on 11/20/2019 by Amber Jain MD at [place] [facility] Right: Mouth [employer] 10/21/2021 [id number] / / [id number] Implant Silastic 7 Silicone Sw - [id number] Implanted:Qty : 1 on 05/28/2020 by Farhat Pate MD at [place] [facility] Right: Throat [employer] [id number] / / documented as of this [...] and were consensually agreed upon. Care Teams School Bus Driver/Custodian Relationship Specialty Start Date End Date Ivonne French PA-C [address] [place] [address] PCP - General Physician Dumping Machine Operator 07/24/21 documented as of this encounter
--- OUTSIDE RECORDS SUMMARY | 2024-01-29 21:41 | External Medical Summary ---
Author Name Unknown Address Unknown Organization K01:[facility] [place] [address] [place] [address] Laboratory Report Ordering Provider Test Date Status SAMI KAY 11/09/2023 15:17:15 Final Observation Date Value Abnormality Reference (Units ) Status MYCODE SPECIMEN-SST 11/09/2023 15:17:15 Freezing of extracted DNA, whole blood and/or serum. Final Performing Location LAB[facility]ATORY C - [address] [facility] [address]
--- OUTSIDE RECORDS SUMMARY | 2024-01-29 21:41 | External Medical Summary ---
Author Name Unknown Address Unknown Organization K01:[facility] [place] [address] [place] [address] Laboratory Report Ordering Provider Test Date Status NATY WELLINGTON 11/09/2023 15:17:15 Final Warfarin Therapy
INR: 2 .0-3.0 conventional anticoagulation
INR: 2.5- 3.5 high intensity anticoagulation Observation Date Value Abnormality Reference (Units ) Status PT 11/09/2023 15:17:15 14.3 11.6-15.2 (seconds) Final INR 11/09/2023 15:17:15 1.1 0.8-1.2 Final Performing Location LABORATORY C - [address] [place] [address]
--- OUTSIDE RECORDS SUMMARY | 2024-01-29 21:41 | External Medical Summary | Summary of Care ---
Author Name Unknown Organization [facility] Address [address] [place] [address] Phone [phone] Care Team Providers Care Home Teaching Grades 7 And 8 Teacher Name Role Phone Ivonne French PA-C Primary Care Provider [phone] Reason for Referral * Evaluate & Treat - Unlimited Visits (Within 30 days (routine)) - Authorized Specialty Diagnoses / Procedures Referred By Contsumanth t Referred To Contact Psychiatry Diagnoses Compulsive eating patterns NBA (generalized anxiety disorder) Major depressive disorder, single episode, mild (HCC) Ivonne French PA-C [address] [place] [address] Referral ID Status Reason Start Date Expiration Date Visits Requested Visits Authorized [id number] Authorized Specialty Services Required 09/09/2023 999 999 Question Answer Referral Priority Within 30 days (routine) Where should this appointment be scheduled? External Is this referral for medication management? Yes Referral To Outside [facility] Reason for Referral Anxiety Reason for Visit * Reason Comments Acute PAP Encounter Details Date Type Department Care Team (Latest Contact Info) Description 09/09/2023 1:00 PM EDT Office Visit [facility] [address] [place] [phone] Ivonne French PA-C [address] [place], [place] [phone] Compulsive eating patterns*; NBA (generalized anxiety disorder); [...] mellitus with hemoglobin A1c goal of 7.0%-8.0% (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 180 Capsule 1 05/25/2023 Active Ambature Delica Lancets 33G Use to test blood sugar three times daily E 11.9 300 Each 5 05/25/2023 Active The IQ CollectiveTouch Verio w/Device Kit Use up to 3 times a day E11.9 1 Kit 0 05/25/2023 Active Pen [place] 32G X 4 MM Use as directed. [...] Wednesday only. 90 Tablet 3 06/14/2023 Active Ambature Verio In Vitro Strip (Glucose Blood) Use up to 3 times a day E11.9 100 Strip 11 07/16/2023 Active Levothyroxine Sodium 150 MCG Oral Tablet (Synthroid) One tab daily Wednesday through Wednesday - half tab daily Wednesday and wednesday 90 Tablet 1 07/20/2023 Active Mounjaro 7.5 MG/0.5ML Subcutaneous Solution Pen-injector (Tirzepatide)Indica tions:Type 2 diabetes mellitus with hemoglobin A1c goal of 7.0%-8.0% ([facility]),Compulsive eating patterns,Overweight (BMI 25.0-29.9) Inject 7.5 mg [...] Pap smear for cervical cancer screening - [employer] SUPERVISOR PAP SCREEN Encounter for gynecological examination without abnormal finding - [employer] SUPERVISOR PAP SCREEN Pap today Wrap-Up Time: I [...] 09/17/2023 8:00 AM EST Office Visit Pharmacy, [facility] [address] [address] [facility] 132 [facility] [place] [address] 10/01/2023 8:15 AM EST Imaging Radiology [address] 132 [facility] [place] [address] 10/08/2023 9:15 AM EST Office Visit Podiatry [address] [place] [phone] Nayan Franklin, [place] [address] [place] [address] 10/14/2023 1:40 PM EST Office Visit [facility] [address] [place] [phone] Ivonne French PA-C [address] [place] [address] 11/12/2023 8:40 AM EST Office Visit [facility] [address] [place] [address] Ivonne French PA-C [address] [place] [address] 11/12/2023 9:30 AM EST Office Visit Cardiology, [facility] [address] [facility] [place] [address] Christian Cardenas PA-C [address] [place] [address] 12/16/2023 1:45 PM EST Office Visit Hematology/Oncology [facility] [address] Shon Rice MD 200 [facility] [place] [address] 12/23/2023 1:00 PM EST Office Visit Neurology, [place] [address] [place] [address] Oralia Glass MD [address] [place], [place] [phone] 05/10/2024 8:15 AM EDT Office Visit Ophthalmology, [place] [address] [place] [address] Migel Ramires MD 21 [facility] [place] [address] Pending Results Name Type Priority Associated Diagnoses Date /Time [employer] PAP SCREEN Pathology Routine Pap smear for cervical cancer screening Encounter for gynecological examination without abnormal finding 09/09/2023 2:04 PM EDT Scheduled Procedures Name Priority Associated Diagnoses [...] this encounter Medical Devices Implanted Type Area Pictures Editor Device Identifier Shelf Expiration Date Model / Serial / Lot Lens Intraoc 21.0 - [id number] - [id number] Implanted:Qty : 1 on 07/06/2017 by Luis Eduardo Cole MD at OR [facility] Left: Eye BAUSCH & LOMB 01/05/2022 [id number] / [id number] / Lens Intraoc 21.0 - [id number] - [id number] Implanted:Qty : 1 on 07/20/2017 by Luis Eduardo Cole MD at OR [facility] Right: Eye BAUSCH & LOMB 01/05/2022 [id number] / [id number] / Syringe Prolaryn Del 1.0cc - [id number] Implanted:Qty : 1 on 11/20/2019 by Amber Jain MD at OR [facility] Right: Mouth [employer] 10/21/2021 [id number] / / [id number] Implant Silastic 7 Silicone Sw - [id number] Implanted:Qty : 1 on 05/28/2020 by Farhat Pate MD at OR [facility] Right: Throat Minekey [id number] / / documented as of this [...] were consensually agreed upon. Care Teams Home Teaching Grades 7 And 8 Teacher Relationship Specialty Start Date End Date Ivonne French PA-C [address] [place] [address] PCP - General Physician Echo Technician 07/24/21 documented as of this encounter
--- OUTSIDE RECORDS SUMMARY | 2024-01-29 21:41 | External Medical Summary ---
Author Name Unknown Address Unknown Organization K01:[facility] [address] [facility] [place] [facility] [address] Laboratory Report Ordering Provider Test Date Status NATY [place] 11/09/2023 15:17:15 Final Observation Date Value Abnormality Reference (Units ) Status HbA1C 11/09/2023 15:17:15 10.7 Above high normal 4. 0-5.6 (%) Final The use of HbA1c to monitor glycemic status is based on normal hemoglobin and HbA composition. This test should not be used in patients with abnormal hemoglobin that affects the half life of the red blood cell or the in vivo glycation rates. Glucose, estimated average 11/09/2023 15:17:15 260 Above high normal <126 (mg/dL) Colin lee Performing Location [facility] [address] [facility] [address]
--- OUTSIDE RECORDS SUMMARY | 2024-01-29 21:41 | External Medical Summary | Summary of Care ---
Author Name Unknown Organization [facility] Address [address] [facility] [place] [address] Phone [phone] Care Team Providers Care Line Camera Operator Name Role Phone Ivonne French PA-C Primary Care Provider [phone] Reason for Visit * Reason Onset Date Comments Returning Call 10/12/2023 Encounter Details Date Type Department Care Team (Late st Contact Info) Description 10/12/2023 Telephone Pharmacy, [facility] [address] [place] [address] [facility] [place] 132 [facility] [place] [address] Returning Call Allergies Active Allergy Reactions Criticality Noted Date Comments Adhesive Tape 04/21/2016 Glue off the old style medical tape. 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 135 Tablet 05/25/2023 Active Omeprazole 20 MG Oral Capsule Delayed Release (PriLOSEC) Take 1 Capsule by mouth in the morning and 1 Capsule before bedtime. 180 Capsule 1 05/25/2023 Active Kinnser Software Delica Lancets 33G Use to test blood sugar three times daily E 11.9 300 Each 05/25/2023 Active NomadeskToMoney Mover Verio w/Device Kit Use up to 3 times a day E11.9 1 Kit 0 05/25/2023 Active Pen [place] 32G X 4 MM Use as directed. [...] Wednesday only. 90 Tablet 3 06/14/2023 Active NomadeskTouch Verio In Vitro Strip (Glucose Blood) Use [...] week. 6 mL 1 09/09/2023 4 Active Insulin Glargine Solostar 100 UNIT/ML Subcutaneous [...] with meals. 15 mL 0 10/12/2023 Active Insulin Lispro (1 Unit Dial) 100 UNIT/ML Subcutaneous Solution Pen-injector (HumaLOG KwikPen) Inject 20 Units under the skin in the morning and 20 Units at noon and 20 Units in the evening. Inject with meals. 45 mL 3 10/11/2023 3 Discontinue d(Refill) documented as of this encounter (statuses as of 10/12/2023) Active Problems Problem Noted Date Diagnosed Date [...] as of this encounter (statuses as of 10/12/2023) Resolved Problems Problem Noted Date Diagnosed Date [...] as of this encounter (statuses as of 10/12/2023) Immunizations Name Administration Dates Next Due COVID-19 [...] Encounter - Mary Grace Farmer RPh - 10/12/2023 4:09 PM EST Patient Phone Numbers Left message for patient via voicemail. Prescription was sent to the pharmacy. Mary Grace Farmer, Pharm D, [facility] Clinical Pharmacist 10/12/2023, 4:09 PM * Telephone Encounter - Samuel Alvarez chipper machine operator - 10/12/2023 2:35 PM EST Caller's name: Juany Morfin call back number(OFFICE NUMBER FOR ): [phone] Reason for call: Pt returning call from [facility] regarding holdover RX till mail order insulin arrives, local pharm selected. Thank you, Samuel Alvarez [facility] Baking Factory Worker [facility] Telepharmacy 10/12/2023,2:35 PM documented in this encounter Plan of Treatment Upcoming Encounters Date Type Department Care Team (Latest Contact Info) Description 10/14/2023 1:40 PM EST Office Visit [place] [address] [facility] [phone] Ivonne French PA-C [address] [facility] [address] 11/09/2023 2:40 PM EST Office Visit [place] [address] [facility] [phone] Ivonne French PA-C [address] [facility] [address] 11/12/2023 9:30 AM EST Office Visit Cardiology, [address] [place] [address] Christian Cardenas PA-C [address] [place] [address] 11/15/2023 7:30 AM EST Hospital Encounter OR [facility], Operating Room, [facility] 1st Floor [address] [place] [address] Nayan Franklin, DP [address] [place] [address] 11/15/2023 7:30 AM EST - 11/15/2023 8:23 AM EST Surgery OR [facility], Operating Room, [facility] 1st Floor [address] [place] [address] Nayan Franklin, [facility] [address] [place] [address] AMPUTATION TOE METATARSOPHALANGEAL JOINT 11/19/2023 8:00 AM EST Office Visit Pharmacy, [facility] [place] [address] [facility] 132 [facility] [place] [address] 11/19/2023 9:15 AM EST Office Visit Podiatry [address] [place] [phone] Nayan Franklin, [facility] [address] [place] [address] 11/26/2023 9:15 AM EST Office Visit Podiatry [address] [place] [phone] Nayan Franklin, [facility] [address] [place] [address] 12/16/2023 1:45 PM EST Office Visit Hematology/Oncolo gy [facility] 200 [place] [address] Shon Rice MD [address] [place], [place] [address] 12/23/2023 1:00 PM EST Office Visit Neurology, [place] [address] [place] [address] Oralia Glass MD [address], [place] [address] 05/10/2024 8:15 AM EDT Office Visit Ophthalmology, [place] [facility] [place] [address] Migel Ramires MD 21 [facility] [place] [address] Scheduled Procedures Name Priority Associated Diagnoses Date/Ti [...] 12/12/2021, Additional history exists B-12 12/25/2023 12/25/2022, 0 [...] this encounter Medical Devices Implanted Type Area Systems Mgr Device Identifier Shelf Expiration Date Model / Serial / Lot Lens Intraoc 21.0 - [id number] - [id number] Implanted:Qty : 1 on 07/06/2017 by Luis Eduardo Cole MD at [facility] Left: Eye BAUSCH & LOMB 01/05/2022 [id number] / [id number] / Lens Intraoc 21.0 - [id number] - [id number] Implanted:Qty : 1 on 07/20/2017 by Luis Eduardo Cole MD at OR [facility] Right: Eye BAUSCH & LOMB 01/05/2022 [id number] / [id number] / Syringe Prolaryn Del 1.0cc - [id number] Implanted:Qty : 1 on 11/20/2019 by Amber Jain MD at OR [facility] Right: Mouth [employer] 10/21/2021 [id number] / / [id number] Implant Silastic 7 Silicone Sw - [id number] Implanted:Qty : 1 on 05/28/2020 by Farhat Pate MD at OR [facility] Right: Throat [employer] [id number] / / documented as of this [...] and were consensually agreed upon. Care Teams Line Camera Operator Relationship Specialty Start Date End Date Ivonne French PA-C [address] [place] [address] PCP - General Physician Nurse Researcher 07/24/21 documented as of this encounter
--- OUTSIDE RECORDS SUMMARY | 2024-01-29 21:41 | External Medical Summary | Summary of Care ---
Author Name Unknown Organization [facility] Address [address] [facility] [place] [address] Phone [phone] Care Team Providers Care Spanish Speaking Babysitter Name Role Phone Ivonne French PA-C Primary Care Provider [phone] Reason for Visit * Reason Onset Date Comments Medication Problem 10/11/2023 Encounter Details Date Type Department Care Team (Late st Contact Info) Description 10/11/2023 Tele[address] Pharmacy, [facility] [address] [facility] [address] [facility] [place] [address] Medication Problem Allergies Active Allergy Reactions Criticality Noted Date Comments Adhesive Tape 04/21/2016 Glue off the old style medical tape. documented as of this encounter (statuses as of 10/11/2023) Medications Medication Sig Dispensed Refills Start Date [...] Hour (toPROL XL)Indications:Cor onary artery disease involving ewiiaapaayp coronary artery of ewiia[place]ayp heart without angina pectoris Take 1.5 Tablets by mouth in the morning. 135 Tablet 05/25/2023 Active Omeprazole 20 MG Oral Capsule Delayed Release (PriLOSEC) Take 1 Capsule by mouth in the morning and 1 Capsule before bedtime. 180 Capsule 05/25/2023 Active Thorne Holding Delica Lancets 33G Use to test blood sugar three times daily E 11.9 300 Each 05/25/2023 Active Spotfav Reporting Technologies w/Device Kit Use up to 3 times a day E11.9 1 Kit 0 05/25/[address] 32G X 4 MM Use as directed. [...] Wednesday only. 90 Tablet 3 06/14/2023 Active KickboardToSpreadsave Verio In Vitro Strip (Glucose Blood) Use [...] Inject with meals. 45 mL 3 10/11/2023 Active NovoLOG FlexPen 100 UNIT/ML Subcutaneous Solution Pen-injector (insulin aspart) Inject 20 Units under the skin in the morning and 20 Units at noon and 20 Units in the evening. Inject with meals. 45 mL 3 09/17/2023 3 Discontinue d(Medicatio n/Dose Changed) documented as of this encounter (statuses as of 10/11/2023) Active Problems Problem Noted Date Diagnosed Date [...] as of this encounter (statuses as of 10/11/2023) Resolved Problems Problem Noted Date Diagnosed Date [...] as of this encounter (statuses as of 10/11/2023) Immunizations Name Administration Dates Next Due COVID-19 [...] * Telephone Encounter - Mary Grace Farmer [facility] - 10/11/2023 8:27 AM EST Patient Phone Numbers Spoke to patient via phone. Notes she has not gotten any insulin. Notes [facility]ella is telling her they are out of stock. Spoke to greg, novolog on back order, humalog sent down. Left message for patient informing her of this and offering a short supply to be sent to a local pharmacy, she is to return call if would like that. Mary Grace Farmer, Pharm D, [facility] Clinical Pharmacist 10/11/2023, 8:56 AM Electronically signed by Mary Grace Farmer [facility] at 10/11/2023 8:56 AM EST * Telephone Encounter - Socorro Jeter OSA - 10/11/2023 8:21 AM EST Caller's name: Juany Preferred call back number(OFFICE NUMBER FOR ): [phone] Reason for call: Medication question: Patient still hasn't received her Novolog insulin. She would like to speak to the [facility] . Please advise and return her call. Thank you, Socorro Jeter Fill Manager Centralized Clinical Pharmacy Services 10/11/2023,8:21 AM documented in this encounter Plan of Treatment Upcoming Encounters Date Type Department Care Team (Late st Contact Info) Description 10/14/2023 1:40 PM EST [address] [phone] Ivonne French PA-C [address] [facility] [place] [phone] 11/12/2023 8:40 AM EST Office [address] [phone] Ivonne French PA-C [address] [place] [address] 11/12/2023 9:30 AM EST Office Visit Cardiology, [facility] [address] [facility] [address] Christian Cardenas PA-C 132 [place] [address] 11/19/2023 8:00 AM EST Office Visit Pharmacy, [facility] [address] [facility] [address] [facility] 132 [place] [address] 12/16/2023 1:45 PM EST Office Visit Hematology/Oncology [facility] 200 [place] [address] Shon Rice MD 200 [place] [address] 12/23/2023 1:00 PM EST Office Visit Neurology, [place] [address] [place] [address] Oralia Glass MD [address] [place], [place] [address] 05/10/2024 8:15 AM EDT Office Visit Ophthalmology, [place] [address] [place] [address] Migel Ramires MD [address] [place] [address] Scheduled Procedures Name Priority Associated Diagnoses Date/Ti [...] this encounter Medical Devices Implanted Type Area Stove Refinisher Device Identifier Shelf Expiration Date Model / Serial / Lot Lens Intraoc 21.0 - [id number] - [id number] Implanted:Qty : 1 on 07/06/2017 by Luis Eduardo Cole MD at OR [facility] Left: Eye BAUSCH & LOMB 01/05/2022 [id number] / [id number] / Lens Intraoc 21.0 - [id number] - [id number] Implanted:Qty : 1 on 07/20/2017 by Luis Eduardo Cole MD at OR [facility] Right: Eye BAUSCH & LOMB 01/05/2022 [id number] / [id number] / Syringe Prolaryn Del 1.0cc - [id number] Implanted:Qty : 1 on 11/20/2019 by Amber Jain MD [place] [facility] Right: Mouth [employer] 10/21/2021 [id number] / / [id number] Implant Silastic 7 Silicone Sw - [id number] Implanted:Qty : 1 on 05/28/2020 by Farhat Pate MD [place] [facility] Right: Throat [employer] [id number] / / documented as of this [...] and were consensually agreed upon. Care Teams Spanish Speaking Babysitter Relationship Specialty Start Date End Date Ivonne French PA-C [address] [place] [address] PCP - General Physician Machine Etcher 07/24/21 documented as of this encounter
--- OUTSIDE RECORDS SUMMARY | 2024-01-29 21:41 | External Medical Summary | Summary of Care ---
Author Name Unknown Organization [facility] Address [address] [facility] [place] [address] Phone [phone] Care Team Providers Care Mobile Application Architect Name Role Phone Ivonne French PA-C Primary Care Provider [phone] [phone] Reason for Visit * Reason Comments Dosage Adjustment In Person (Anticoag Cl inic) Diabetes Follow-Up Encounter Details Date Type Department Care Team (Late st Contact Info) Description 09/17/2023 8:00 AM EST Office Visit Pharmacy, [facility] [address] [facility] [place] [address] [facility] [address] [facility] [place] [address] Type 2 diabetes mellitus with hemoglobin A1c goal of 7.0%-8.0% ([facility]ERLY [facility])* Allergies Active Allergy Reactions Criticality Noted Date Comments Adhesive Tape 04/21/2016 Glue off the old style medical tape. documented as of this encounter (statuses as of 09/17/2023) Medications Medication Sig Dispensed Refills Start Date [...] Hour (toPROL XL)Indications:Cor onary artery disease involving [place] coronary artery of [place] heart without angina pectoris Take 1.5 Tablets by mouth in the morning. 135 Tablet 1 05/25/2023 Active Omeprazole 20 MG Oral Capsule Delayed Release (PriLOSEC) Take 1 Capsule by mouth in the morning and 1 Capsule before bedtime. 180 Capsule 1 05/25/2023 Active [employer] Delica Lancets 33G Use to test blood sugar three times daily E 11.9 300 Each 05/25/2023 Active Ocean Power TechnologiesTouch Verio w/Device Kit Use up to 3 times a day E11.9 1 Kit 0 05/25/2023 Active Pen [place] 32G X 4 MM Use as directed. [...] week. 6 mL 1 09/09/2023 4 Active NovoLOG FlexPen 100 UNIT/ML Subcutaneous Solution Pen-injector (insulin aspart) Inject 20 Units under the skin in the morning and 20 Units at noon and 20 Units in the evening. Inject with meals. 45 mL 3 09/17/2023 Active Insulin Glargine Solostar 100 UNIT/ML Subcutaneous Solution Pen-injector (Lantus SoloStar) Inject 35 Units under the skin at bedtime. 45 mL 3 09/17/2023 Active Insulin Glargine Solostar 100 UNIT/ML Subcutaneous Solution Pen-injector (Lantus SoloStar) Inject 30 Units under the skin at bedtime. 30 mL 3 05/25/2023 3 Discontinue d(Refill) NovoLOG FlexPen 100 UNIT/ML Subcutaneous Solution Pen-injector (insulin aspart) Inject 20 Units under the skin in the morning and 20 Units at noon and 20 Units in the evening. Inject with meals. 30 mL 3 05/25/2023 3 Discontinue d(Refill) documented as of this encounter (statuses as of 09/17/2023) Active Problems Problem Noted Date Diagnosed Date [...] as of this encounter (statuses as of 09/17/2023) Resolved Problems Problem Noted Date Diagnosed Date [...] as of this encounter (statuses as of 09/17/2023) Immunizations Name Administration Dates Next Due COVID-19 [...] encounter Progress Notes * Mary Grace Farmer, [facility] - 09/17/2023 8:00 AM EST Medication Therapy Disease Management Clinic - Diabetes Management Progress Note Juany Resendez, identified by name and date of , is a 58 year old female being seen for diabetes management/education. Patient presents for return diabetic visit. DIABETES: Current diabetic medications: Mounjaro 10 mg weekly - taking 5 mg weekly right now Metformin 1000 mg BID INCREASE: Lantus 35 units HS Novolog 20 units TID with meals Medication Injection Site: Abdomen Lifestyle: Diet: unchanged Glucose Review/SMBG: Readings obtained from patient device Pre am Post am Pre Lunch Post Lunch Pre pm Post pm HS 3am 299 242 217 201 266 196 178 225 243 212 180 159 205 267 222 Average 218 #DIV/0! 267 #DIV/0! #DIV/0! #DIV/0! #DIV/0! #DIV/0! Hi 299 0 267 0 0 0 0 0 Lo 159 0 267 0 [address]5833 0 267 0 0 0 0 0 Range 140 0 0 0 0 0 0 0 Hypoglycemia: Does your blood sugar go below 70 mg/dL? No Hyperglycemia symptoms present: none Recent Labs Units 06/15/23 1006 04/27/23 0944 12/25/22 1038 HEMOGLOBIN A1C - [facility] % 8.8* 9.9* 9.7* Recent Labs Units 06/15/23 1006 05/12/23 1010 02/22/23 1027 ESTIMATED GLOMERULAR FILTRATION RATE - [facility] mL/min 65 65 53* CREATININE - [facility] mg/dL 1.0 1.0 1.2* HYPERTENSION: Patient on ACEi/ARB: no, not indicated BP Readings from Last 3 Encounters: 09/09/23 100/56 09/03/23 110/60 07/20/23 124/60 Blood pressure at goal: yes HYPERLIPIDEMIA: Patient is taking moderate or high intensity statin: No Current regimen: None Goal statin intensity: high The 10-year ASCVD risk score (Nayan PHAM, et al., 2019) is: 3.6% Values used to calculate the score: Age: 58 years Sex: Female Is Non- : No Diabetic: Yes Tobacco smoker: No Systolic Blood Pressure: 100 mmHg Is BP treated: Yes HDL Cholesterol: 54 mg/dL Total Cholesterol: 122 mg/dL Recent Labs Units 12/25/22 1044 LDL CHOLESTEROL (DIRECT MEASURE) - [facility] mg/dL 34 HEALTH MAINTENANCE REVIEW: Health Maintenance Due Topic Date Due Pneumococcal Vaccine: Pediatrics (0 to 5 Years) and At-Risk Patients (6 to 64 Years) (2 - PCV) 12/20/2007 Hepatitis B (3 of 3 - Risk 3-dose series) 08/20/2017 Depression, Most Recent Score >= 10 (will fire each visit until score < 10) 12/26/2022 Influenza Vaccine (FLU shot) (1) Never done COVID-19 Vaccine ( season) 2023 ASSESSMENT & PLAN: No diagnosis found. BG Readings - Blood sugars uncontrolled. BG values still elevated. Medications - Reviewed current regimen, patient is adherent to regimen. Patient will be increasing mounjaro to 10 mg in the next week or so when new dose arrives. Will see how BG values respond to that. Patient notes out of novolog, refill sent to pharmacy. Diet, Exercise, Lifestyle - No significant lifestyle changes since last visit. Discussed with patient. Patient is agreeable to SMBG 1 time(s) daily. Patient aware to contact clinic if any hypoglycemia before next visit. MEDICATION CHANGES: yes, see below; preferred pharmacy: [place] Diabetic Medications: Mounjaro 10 mg weekly Metformin 1000 mg BID INCREASE: Lantus 35 units HS Novolog 20 units TID with meals HEALTH MAINTENANCE INTERVENTIONS: Labs: Up to Date Immunizations: Up to Date Foot Exam: Up to Date Eye Exam: Up to Date Annual Wellness Visit: N/A FOLLOW UP: Return to clinic in 8 weeks 11/19/2023 Mray Grace Farmer RPh Clinical Pharmacist - Equipment Processor Medication Therapy Management Clinic 09/17/2023, 8:00 AM documented in this encounter Plan of Treatment Upcoming Encounters Date Type Department Care Team (Late st Contact Info) Description 10/01/2023 8:15 AM EST Imaging Radiology [facility] [address] [facility] [place] [address] 10/08/2023 9:15 AM EST Office Visit Podiatry [address] [place] [address] Nayan Franklin, [facility] [address] [place] [address] 10/14/2023 1:40 PM EST Office Visit Family [place] [address] [address] [facility] [place] [phone] Ivonne French PA-C [address] [facility] [place] [address] 11/12/2023 8:40 AM EST Office Visit Family [facility], [place] [address] [address] [facility] [phone] Ivonne French PA-C [address] [facility] [place] [address] 11/12/2023 9:30 AM EST Office Visit Cardiology, [facility] [address] [place] [address] Christian Cardenas PA-C [address] [place] [address] 11/19/2023 8:00 AM EST Office Visit Pharmacy, [facility] [address] [place] [address] [facility] [place] [address] 12/16/2023 1:45 PM EST Office Visit Hematology/Oncology [facility] [address] [facility] [address] Shon Rice MD [address] [facility] [place] [address] 12/23/2023 1:00 PM EST Office Visit Neurology, [place] [address] [place] [phone] Oralia Glass MD [address] [place] [address] 05/10/2024 8:15 AM EDT Office Visit Ophthalmology, [place] [address] [facility] [place] [address] Migel Ramires MD [address] [facility] [place] [address] Scheduled Procedures Name Priority Associated Diagnoses Date/Ti [...] this encounter Medical Devices Implanted Type Area Museum Guide Device Identifier Shelf Expiration Date Model / Serial / Lot Lens Intraoc 21.0 - [id number] - [id number] Implanted:Qty : 1 on 07/06/2017 by Luis Eduardo Cole MD at OR [facility] Left: Eye BAUSCH [employer] LOMB 01/05/2022 [id number] / [id number] / Lens Intraoc 21.0 - [id number] - [id number] Implanted:Qty : 1 on 07/20/2017 by Luis Eduardo Cole MD at OR [facility] Right: Eye [employer]CH [employer] LOMB 01/05/2022 [id number] / [id number] / Syringe Prolaryn Del 1.0cc - [id number] Implanted:Qty : 1 on 11/20/2019 by Amber Jain MD at OR [facility] Right: Mouth [employer] 10/21/2021 [id number] / / [id number] Implant Silastic 7 Silicone Sw - [id number] Implanted:Qty : 1 on 05/28/2020 by Farhat Pate MD at OR [facility] Right: Throat [employer] [id number] / / documented as of this encounter Visit Diagnoses Diagnosis Type 2 diabetes mellitus with hemoglobin A1c goal of 7.0%-8.0% ([facility])- Primary documented in this encounter Advance Directives [...] were consensually agreed upon. Care Teams Mobile Application Architect Relationship Specialty Start Date End Date vIonne French PA-C [address] [facility] [place] [address] PCP - General Physician Floor Covering Printer Assistant 07/24/21 documented as of this encounter
--- OUTSIDE RECORDS SUMMARY | 2024-01-29 21:41 | External Medical Summary ---
Author Name Unknown Address Unknown Organization K01:[facility] [address] [place] [address] Laboratory Report Ordering Provider Test Date Status NATY WELLINGTON 11/09/2023 15:17:15 Final Observation Date Value Abnormality Reference (Units ) Status SYNC LEUKOCYTES IN BLOOD BY AUTOMATED COUNT 11/09/2023 15:17:15 5.95 4.00-10.80 (K/uL) Final Neutrophils/100 leukocytes in Blood by Manual count 11/09/2023 15:17:15 7.0 Below low normal 40.0-75.0 (%) Final Lymphocytes/100 leukocytes in Blood by Manual count 11/09/2023 15:17:15 87.0 Above high normal 18.0-42.0 (%) Final Eosinophils/100 leukocytes in Blood by Manual count 11/09/2023 15:17:15 5.0 0.0-6.0 (%) Final Myelocytes/100 leukocytes in Blood by Manual count 11/09/2023 15:17:15 1.0 Above high normal <=0.0 (%) Final Neutrophils [#/volume] in Blood by Manual count 11/09/2023 15:17:15 0.42 Below low normal 1.80-7.70 (K/uL) Final Lymphocytes [#/volume] in Blood by Manual count 11/09/2023 15:17:15 5.18 Above high normal 1.00-4.80 (K/uL) Final Eosinophils [#/volume] in Blood by Manual count 11/09/2023 15:17:15 0.30 0.00-0.70 (K/uL) Final Myelocytes [#/volume] in Blood by Manual count 11/09/2023 15:17:15 0.06 Above high normal <=0.00 (K/uL) Final Performing Location [facility] [address] [place] [address]
--- OUTSIDE RECORDS SUMMARY | 2024-01-29 21:42 | External Medical Summary | Summary of Care ---
Author Name Unknown Organization [facility] Address [address] [facility] [address] Phone [phone] Care Team Providers Care Community Service Organization Director Name Role Phone Ivonne French PA-C Primary Care Provider [phone] Reason for Referral * Precert (Within 10 days (routine)) - Authorized Specialty Diagnoses / Procedures Referred By Contsumanth t Referred To Contact Radiology Diagnoses Status post amputation of great toe, left (HCC) Pain of great toe, left Osteomyelitis of great toe of left foot (HCC) Procedures MRI FOOT LEFT WO CONTRAST Nayan Franklin DPM [address] [place] [address] Referral ID Status Reason Start Date Expiration Date V isits Requested Visits Authorized [id number] Authorized 09/10/2023 999 999 Reason for Visit * Reason Comments Follow Up X-ray follow up Encounter Details Date Type Department Care Team ([facility] st Contact Info) Description 09/03/2023 10:00 AM EDT Office Visit Podiatry [address] [place] [phone] Nayan Franklin DPM [address] [place], [place] [phone] Status post amputation of great toe, left (HCC)*; Pain of great toe, left; Osteomyelitis of great toe of left foot (HCC) Allergies Active Allergy Reactions Criticality Noted Date Comments Adhesive Tape 04/21/2016 Glue off the old style medical tape. 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 90 Tablet 3 06/14/2023 Active ProCertus BioPharmTouch Verio In Vitro Strip (Glucose Blood) Use up to 3 times a day E11.9 100 Strip 11 07/16/2023 Active Mounjaro 5 MG/0.5ML Subcutaneous Solution Pen-injector (Tirzepatide)Indica tions:Type 2 diabetes mellitus with hemoglobin A1c goal of 7.0%-8.0% ([facility]),Compulsive eating patterns,Overweight (BMI 25.0-29.9) Inject 5 mg under the skin once a week. 6 mL 1 07/20/2023 07/19/2024 Active Levothyroxine Sodium 150 MCG Oral Tablet (Synthroid) One tab daily Wednesday through Wednesday - half tab daily Wednesday and wednesday 90 Tablet 1 07/20/2023 Active Isosorbide Mononitrate ER 30 MG Oral Tablet Extended Release 24 Hour (Imdur) Take 0.5 Tablets by mouth in the morning. 31 Tablet 1 07/20/2023 Active documented as of this encounter (statuses as of 09/03/2023) Active Problems Problem Noted Date Diagnosed Date [...] as of this encounter (statuses as of 09/03/2023) Resolved Problems Problem Noted Date Diagnosed Date [...] as of this encounter (statuses as of 09/03/2023) Immunizations Name Administration Dates Next Due COVID-19 [...] this encounter Progress Notes * Nayan Franklin, DPM - 09/03/2023 10:20 AM EDT Subjective: Patient presents in office today for review of x-rays. Patient states that her toe is constantly painful and sometimes gets red and swollen. HISTORY Past Medical History: Diagnosis Date Diabetic [...] polyps, repeat 5 yrs/[facility] COLONOSCOPY, DIAGNOSTIC (RECTUM) 06/03/2022 diverticulosis, fair prep, repeat 5 yrs / [facility] EGD, FLEXIBLE, DIAGNOSTIC 12/16/2016 normal bx/[facility] EGD, FLEXIBLE, W/BIOPSY 07/30/2010 esophagitis, await BX LARYNGOPLASTY MEDIALIZATION UNILATERAL Right 05/28/2020 LARYNGOPLASTY, MEDIALIZATION UNILATERAL performed by Farhat Pate MD at OR [facility] LARYNGOSCOPY, VOCAL CORD INJECTION Right 11/20/2019 LARYNGOSCOPY DIRECT INJECTION VOCAL CORD WITH MICROSCOPE performed by Amber Jain MD at OR [facility] MISCELLANEOUS ORDER (HS ONLY) Bilateral 11/24/2017 Reinheimer-bleph/levators-ou OTHER (3 times) 8 inch 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 Vazquez REMOVE CATARACT, INSERT LENS PROSTH Right 07/20/2017 right EXTRACAPSULAR CATARACT REMOVAL WITH INTRAOCULAR LENS performed by Luis Eduardo Cole MD at OR [facility] [address] REMOVE CATARACT, INSERT LENS PROSTH Left 07/06/2017 left EXTRACAPSULAR CATARACT REMOVAL WITH INTRAOCULAR LENS performed by Luis Eduardo Cole MD at OR [facility] [address] [address] REMOVE GALLBLADDER 2005 or so Family History [...] mouth in the morning. 90 Tablet 3 Insulin Glargine Solostar 100 UNIT/ML Subcutaneous Solution Pen-injector (Lantus SoloStar) Inject 30 Units under the skin at bedtime. 30 mL 3 Lactulose 10 GM/15ML Oral Solution (Constulose) [...] mouth in the morning. 135 Tablet 1 NovoLOG FlexPen 100 UNIT/ML Subcutaneous Solution Pen-injector (insulin aspart) Inject 20 Units under the skin in the morning and 20 Units at noon and 20 Units in the evening. Inject with meals. 30 mL 3 Omeprazole 20 MG Oral Capsule Delayed Release (PriLOSEC) Take 1 Capsule by mouth in the morning and1 Capsule before bedtime. 180 Capsule 1 iiMondeuch Delica Lancets 33G Use to test blood sugar three times daily E 11.9 300 Each 5 OneTouch Verio w/Device Kit Use up to 3 times a day E11.9 1 Kit 0 [place] 32G X 4 MM Use as [...] times a day E11.9 100 Strip 11 Mounjaro 5 MG/0.5ML Subcutaneous Solution Pen-injector (Tirzepatide) Inject 5 mg under the skin once a week. 6 mL 1 Levothyroxine Sodium 150 MCG Oral Tablet (Synthroid) One tab daily Wednesday through Wednesday - half tabdaily Wednesday and wednesday 90 Tablet 1 Isosorbide Mononitrate ER 30 MG Oral Tablet Extended Release 24 Hour (Imdur) Take 0.5 Tablets by mouth in the morning. 31 Tablet 1 No current facility-administered medications for this visit. ROS EXAM: CONSTITUTIONAL: No change in weight, No weakness, No fatigue, and No fevers, sweats, or chills EXTREMITIES: No pain, redness or swelling on the joints SKIN/INTEGUMENTARY: No edema, No rash, and No itching NEUROLOGIC: Normal balance, No headaches, No seizures, and No weakness Objective: Vascular examination: DP / PT 11/11 SPVFT 3sec Dermatological examination: mild erythema of stump left great toe Orthopedic examination: unremarkable Neurological examination: Epicritic sensation intact Radiological: My interpretation of x-rays. Possible chronic OM of head of proximal phalanx left great toe with some erosive changes and new bone proliferation Assessment: The primary encounter diagnosis was Status post amputation of great toe, left (HCC). Diagnoses of Pain of great toe, left and Osteomyelitis of great toe of left foot (HCC) were also pertinent to thisvisit. Plan: Reviewed x-rays with patient Patient sent for MRI left foot documented in this encounter Nursing Notes * Kristen Nagel MED ASSIST - 09/03/2023 9:56 AM EDT X-ray follow up documented in this encounter Plan of Treatment Upcoming Encounters Date Type Department Care Team (Latest Contact Info) Description 09/03/2023 2:40 PM EDT Office Visit [facility] [address] [place] [phone] Ivonne French PA-C [address] [place] [facility] [place] [address] 09/09/2023 7:30 AM EDT Hospital Encounter ENDO [facility], Endoscopy Room [facility] [address] [place], [place] [address] [phone] Lucio Machado, DO [address] [place] [address] 09/09/2023 7:30 AM EDT - 09/09/2023 8:00 AM EDT Surgery ENDO [facility], Endoscopy Room [facility] [address] [address] [place] [address] Lucio Machado, DO [address] [place] [address] ESOPHAGOGASTRODUODENOSCOPY (EGD), FLEXIBLE, TRANSORAL, DIAGNOSTIC 09/09/2023 1:00 PM EDT Office Visit [facility] [place] [address] [facility] [phone] Ivonne French PA-C [address] [facility] [address] 09/17/2023 8:00 AM EST Office Visit Pharmacy, [facility] [address] [facility] [place] [address] [facility] [place] [address] 10/01/2023 8:15 AM EST Imaging Radiology [facility] [address] [facility] [place] [address] 10/08/2023 8:40 AM EST Office Visit [facility] [address] [facility] [phone] Ivonne French PA-C [address] [facility] [place] [address] 10/08/2023 9:15 AM EST Office Visit Podiatry [address] [place] [phone] Nayan Franklin, DPM [address] [place] [address] 11/12/2023 9:30 AM EST Office Visit Cardiology, [facility] [address] [facility] [place] [address] Christian Cardenas PA-C [address] [place] [address] 12/16/2023 1:45 PM EST Office Visit Hematology[facility]Onco logy [facility] [address] [place] [address] Shon Rice MD [address] [place] [address] 12/23/2023 1:00 PM EST Office Visit Neurology, [place] [address] [place] [phone] Oralia Glass MD [address] [place], [place] [phone] 05/10/2024 8:15 AM EDT Office Visit Ophthalmology, [place] [address] [place] [address] Migel Ramires MD [address] [place] [address] Scheduled Orders Name Type Priority Associated Diagnoses Orde r Schedule MRI FOOT LEFT WO CONTRAST Medical Imaging Routine Status post amputation of great toe, left (HCC) Pain of great toe, left Osteomyelitis of great toe of left foot (HCC) Expected: 09/10/2023, Expires: 10/04/2024 Scheduled Procedures Name Priority Associated Diagnoses Date/Ti me ESOPHAGOGASTRODUODENOSCOPY ( EGD), FLEXIBLE, TRANSORAL, DIAGNOSTIC Esophageal dysphagia Swallowing problem 09/09/2023 7:30 AM EDT COLONOSCOPY FLEXIBLE PROXIMA L DIAGNOSTIC Recall History [...] 04/27/2024 04/27/2023, 12/09, 04/15/2022, Additional history exists DIABETES-EYE EXAM 05/06/2024 05/06/2023, , 09/16/2020, Additional history exists GFR 06/15/2024 06/15/2023, 07/0 [...] this encounter Medical Devices Implanted Type Area Plant Engineering Manager Device Identifier Shelf Expiration Date Model / Serial / Lot Lens Intraoc 21.0 - [id number] - [id number] Implanted:Qty : 1 on 07/06/2017 by Luis Eduardo Cole MD at OR [facility] [address] Left: Eye [employer]OMB 01/05/2022 [id number] / [id number] / Lens Intraoc 21.0 - [id number] - [id number] Implanted:Qty : 1 on 07/20/2017 by Luis Eduardo Cole MD at OR [facility] [address] Right: Eye [employer] LOMB 01/05/2022 [id number] / [id number] / Syringe Prolaryn Del 1.0cc - [id number] Implanted:Qty : 1 on 11/20/2019 by Amber Jain MD at OR [facility] Right: Mouth [employer] 10/21/2021 [id number] / / [id number] Implant Silastic 7 Silicone Sw - [id number] Implanted:Qty : 1 on 05/28/2020 by Farhat Pate MD at OR [facility] Right: Throat [employer] [id number] / / documented as of this encounter Visit Diagnoses Diagnosis Status post amputation of great toe, left (HCC)- Primary Pain of great toe, left Osteomyelitis of great toe of left foot (HCC) Esophageal dysphagia Dysphagia, pharyngoesophageal phase Swallowing problem Dysphagia, unspecified documented in this encounter Advance Directives Latest [...] and were consensually agreed upon. Care Teams Community Service Organization Director Relationship Specialty Start Date End Date Ivonne French PA-C [address] [place] [address] PCP - General Physician Merchandise Presentation Manager 07/24/21 documented as of this encounter
--- OUTSIDE RECORDS SUMMARY | 2024-01-29 21:42 | External Medical Summary ---
Author Name Unknown Address Unknown Organization K01:LAB[facility] [address] [address] Laboratory Report Ordering Provider Test Date Status NATY WELLINGTON 09/09/2023 14:04:00 Final Observation Date Value Abnormality Reference (Units ) Status Human papilloma virus E6+E7 mRNA [Presence] in Cervix by WILLIAM with probe detection 09/09/2023 14:04:00 Negative Not Applicable Final No high/intermediate-risk Hu man Papillomavirus (HPV E6/E7 messenger RNA) detected by nucleic acid amplification.

This assay looks for high/intermediate risk Human Papillomavirus (HPV E6/E7 messenger RNA) by nucleic acid amplification. This assay includes the qualitative detection of HPV types 16,18,31,33,35,39,45,51,52,56,58,59,66 and 68 from cervical specimens.
This assay has been FDA cleared for Thin prep collection vials.
This assay has not been approved for use as a primary screening test for HPV and should be tested in conjunction with a PAP screen.
If collected utilizing a Surepath vial, the collection and specimen preparation of this test was developed, and its performance characteristics determined by [employer]. It has not been cleared or approved by the U.S. Food and Drug Administration (FDA). The FDA has determined that such clearance or approval is not necessary.
This assay has been performed at [facility], [address] [place] [address], [place]. [address]. Performing Location LABORATORY [address] [address]
--- OUTSIDE RECORDS SUMMARY | 2024-01-29 21:42 | External Medical Summary | Summary of Care ---
Author Name Unknown Organization [facility] Address [address] [facility] [place] [address] Phone [phone] Care Team Providers Care Rotary Lithographic Press Operator Name Role Phone Ivonne French PA-C Primary Care Provider [phone] Reason for Visit * Reason Onset Date Comments Advice 06/08/2023 Encounter Details Date Type Department Care Team (Late st Contact Info) Description 06/08/2023 Telephone Cardiology, [facility] [address] [facility] [place] [address] Christian Cardenas PA-C [address] [facility] [place] [address] Advice Allergies Active Allergy Reactions Criticality Noted Date Comments Adhesive Tape 04/21/2016 Glue off the old style medical tape. documented as of this encounter (statuses as of 09/07/2023) Medications Medication Sig Dispensed Refills Start Date [...] XL)Indications:Cor onary artery disease involving [place] coronary artery of [place] heart without angina pectoris Take 1.5 Tablets by mouth in the morning. 135 Tablet 05/25/2023 Active NovoLOG FlexPen 100 UNIT/ML Subcutaneous Solution Pen-injector (insulin aspart) Inject 20 Units under the skin in the morning and 20 Units at noon and 20 Units in the evening. Inject with meals. 30 mL 3 05/25/2023 Active Omeprazole 20 MG Oral Capsule Delayed Release (PriLOSEC) Take 1 Capsule by mouth in the morning and 1 Capsule before bedtime. 180 Capsule 05/25/2023 Active OneTouch Delica Lancets 33G Use to test blood sugar three times daily E 11.9 300 Each 05/25/2023 Active OneTouch Verio w/Device Kit Use up to 3 times a day E11.9 1 Kit 0 05/25/2023 Active Pen Cleveland 32G X 4 MM Use as directed. Use to inject insulin 4 times daily 100 Each 05/25/2023 Active Triamcinolone Acetonide 0.1 % External Ointment (Aristocort)Indica tions:Contact dermatitis, unspecified contact dermatitis type, unspecified trigger Apply topically to affected area 2 times a day. Apply to hands and feet 80 g 2 05/25/2023 Active Isosorbide Mononitrate ER 30 MG Oral [...] as of this encounter (statuses as of 09/07/2023) Active Problems Problem Noted Date Diagnosed Date [...] as of this encounter (statuses as of 09/07/2023) Resolved Problems Problem Noted Date Diagnosed Date [...] as of this encounter (statuses as of 09/07/2023) Immunizations Name Administration Dates Next Due COVID-19 [...] Miscellaneous Notes * Telephone Encounter - Amara Duran OSA - 06/10/2023 2:36 PM EDT Spoke with pt. Offered appt tomorrow, pt declined. Pt is scheduled 06/14/23 with Maria Luz. * Telephone Encounter - Laz Richmond RN - 06/10/2023 2:00 PM EDT Called and spoke with the patient and she stated she is no better. Reviewed the messaage with her from Christian Cardenas. Will have schedulers call her with an appointment. * Telephone Encounter - Christian Cardenas PA-C - 06/08/2023 3:02 PM EDT Noted. Aware. Reduce sodium intake Elevate lower extremities Increase free water intake Avoid NSAIDs Appointment with persistent or progressive issues Christian Cardenas PA-C Department of Cardiology * Telephone Encounter - Laz Richmond RN - 06/08/2023 1:48 PM EDT Called and spoke tot he patient and she repeated the symptoms in the message below. She said her feet swelling is worse. She was seen recently by family medicine and she stated they did nothing. She wants Christian to be aware. She denies chest zamora or discomfort but has some pinching feeling in her chest in which she has had before she states her arms ache. Explained if she continues to get worse to go to the ER immediately. She stated she understood. * Telephone Encounter - Oralia Aguilera OSA - 06/08/2023 1:07 PM EDT Pt called in to report swelling in feet, legs, fingers, slight pinching feeling in chest but reports no distress or breathing issues, requesting Dr. Cardenas be alerted and nurse return her call. Please advise pt at [phone] documented in this encounter Plan of Treatment Upcoming Encounters Date Type Department Care Team (Late st Contact Info) Description 09/09/2023 1:00 PM EDT Office Visit [facility] [address] [facility], [place] [address] Ivonne French PA-C [address] [facility], [place] [address] 09/17/2023 8:00 AM EST Office Visit Pharmacy, [facility] [address] [facility] [place] [address] [facility] [address] [facility] [place] [address] 10/01/2023 8:15 AM EST Imaging [facility] [address] [facility] [place] [address] 10/08/2023 9:15 AM EST Office Visit Podiatry [address] [place] [address] Nayan Franklin, [place] [address] [place] [address] 10/14/2023 1:40 PM EST Office Visit [facility], [place] [address] [address] [facility], [place] [address] Ivonne French PA-C [address] [facility], [place] [address] 11/12/2023 8:40 AM EST Office Visit [facility], [place] [address] [address] [facility], [place] [address] Ivonne French PA-C [address] [facility], [place] [address] 11/12/2023 9:30 AM EST Office Visit Cardiology, [facility] [address] [facility] [place] [address] Christian Cardenas PA-C [address] [place] [address] 12/16/2023 1:45 PM EST Office Visit Hematology/Oncology [facility] [place] [address] [facility] [place] [address] Shon Rice MD [address] [facility] [place] [address] 12/23/2023 1:00 PM EST Office Visit Neurology, [place] [address] [place] [address] Oralia Glass MD [address] [place] [address] 05/10/2024 8:15 AM EDT Office Visit Ophthalmology, [place] [address] [facility] [place] [address] Migel Ramires MD [address] [facility] [place] [address] Scheduled Procedures Name Priority Associated Diagnoses Date/Ti [...] 07/03/2020, Additional history exists HbA1c 12/16/2023 06/15/2023, 06/2 , 12/25/2022, Additional history exists Albumin/Creatinine Ratio 12/25/2023 023, 09/16/2022, 12/12/2021, Additional history exists B-12 12/25/2023 12/25/2022, 06/2022, 07/23/2021, Additional history exists Mammogram 01/28/2024 01/27/2023, 07/10, 07/31/2021, Additional history exists TSH 04/27/2024 04/27/2023, 12/09, 04/15/2022, Additional history exists Diabetic Eye Exam 05/06/2024 05/06/2023, , 09/16/2020, Additional history exists GFR 06/15/2024 06/15/2023, 03/2023, [...] this encounter Medical Devices Implanted Type Area Practice Or Student Teacher Device Identifier Shelf Expiration Date Model / Serial / Lot Lens Intraoc 21.0 - [id number] - [id number] Implanted:Qty : 1 on 07/06/2017 by Luis Eduardo [facility] Left: Eye [employer]USCH [employer] LOMB 01/05/2022 [id number] / [id number] / Lens Intraoc 21.0 - [id number] - [id number] Implanted:Qty : 1 on 07/20/2017 by Luis Eduardo Cole MD at OR [facility] Right: Eye [employer]CH [employer] LOMB 01/05/2022 [id number] / [id number] / Syringe Prolaryn Del 1.0cc - [id number] Implanted:Qty : 1 on 11/20/2019 by Amber Jain MD at OR [facility] Right: Mouth [employer] 10/21/2021 [id number] / / [id number] Implant Silastic 7 Silicone Sw - [id number] Implanted:Qty : 1 on 05/28/2020 by Farhat Pate MD at OR [facility] Right: Throat Pryv [id number] / / documented as of this [...] and were consensually agreed upon. Care Teams Rotary Lithographic Press Operator Relationship Specialty Start Date End Date Ivonne French PA-C [address] [place] [address] PCP - General Physician Property Utilization Manager 07/24/21 documented as of this encounter
--- OUTSIDE RECORDS SUMMARY | 2024-01-29 21:42 | External Medical Summary | Summary of Care ---
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, DM, RFC * Evaluate & Treat - Unlimited Visits (Within 30 days (routine)) - Authorized Specialty Diagnoses / Procedures Referred By Lupis t Referred To Contact Podiatry Diagnoses Diabetic mononeuropathy associated with type 2 diabetes mellitus (HCC) Toe amputee (HCC) Thickened nails Impaired mobility and ADLs Ivonne French PA-C [address] [place] [address] Referral ID Status Reason Start Date Expiration Date Visits Requested Visits Authorized [id number] Authorized Second Opinion 07/06/2023 999 999 Encounter Details Date Type Department Care Team Description 08/20/2023 Office Visit Podiatry [address] [place] [address] Nayan Franklin, EVANGELINA [facility] [place] [address] Pain of great toe, left*; Status post amputation of great toe, left (HCC); Diabetic polyneuropathy associated with type 2 diabetes mellitus (HCC) Allergies Active Allergy Reactions Severity Noted Date Comments Adhesive Tape 04/21/2016 Glue off the old style medical tape. 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 90 Tablet 3 06/14/2023 Active [email or web address] Verio In Vitro Strip (Glucose Blood) Use up to 3 times a day E11.9 100 Strip 11 07/16/2023 Active Mounjaro 5 MG/0.5ML Subcutaneous Solution Pen-injector (Tirzepatide)Indica tions:Type 2 diabetes mellitus with hemoglobin A1c goal of 7.0%-8.0% ([facility]),Compulsive eating patterns,Overweight (BMI 25.0-29.9) Inject 5 mg [...] as of this encounter (statuses as of 08/20/2023) Active Problems Problem Noted Date Varicose veins of both lower extremities 06/04/2023 Gastroesophageal reflux disease 08/15/20 21 Hyperlipidemia 08/15/2021 Hyperthyroidism 08/15/2021 MEDICATION USE AGREEMENT 08/15/2021 Toe amputee 07/31/2021 S/P foot surgery, right 07/17/2021 Major depressive disorder, single episod e, mild 01/06/2021 Diabetic polyneuropathy associated with type 2 diabetes mellitus 01/06/2021 Vocal fold paralysis, right 10/09/2019 Overview: Post op HNP (herniated nucleus pulposus), cervic al 05/09/2019 Diabetic retinopathy associa bimal with diabetes mellitus due to underlying condition 08/24/2016 Herpes simplex virus infection 5 NBA (generalized anxiety disorder) 03/11 Compulsive eating patterns 08/09/2013 Herpes simplex type 1 antibody positive 06/07/2013 Enchondroma of femur 05/10/2013 OBESITY, BMI 30-34 (SEE ACTUAL BMI) 01/07 Overview: Per Obesity Taxonomy Non-toxic multinodular goiter [...] as of this encounter (statuses as of 08/20/2023) Resolved Problems Problem Noted Date Resolved Date Toe osteomyelitis, left 05/29/2021 12/12/19 22 Ulcer of left great toe due to diabetes mellitus 05/29/2021 11/10/2021 Morbid obesity, unspecified obesity type 020 04/24/2021 Diabetes mellitus 08/16/2013 11/24/2022 Type 2 diabetes mellitus wit h hemoglobin A1c goal of 7.0%-8.0% 12/03/2011 08/16/2013 Overview: ICD-10 update of inactive term Candidal vulvovaginitis 12/02/2010 03/22/20 17 DM type 2, not at goal 03/23/2003 9 Overview: Modified per Diabetes protocol #14. OBESITY, UNSPECIFIED 03/23/2003 01/30/2010 Overview: Per Obesity Taxonomy documented as of this encounter (statuses as of 08/20/2023) Immunizations Name Administration Dates Next Due COVID-19 [...] drink = 0.6 oz pur e alcohol) Food Insecurity Answer Date Recorded Within the past 12 months, y ou worried that your food would run out before you got money to buy more. Never true 12/25/2022 Within the past 12 months, t he food you bought just didn't last and you didn't have money to get more. Never true 12/25/2022 Sex Assigned at Date Recorded Female 11/24/2022 9:[address] Job Start Date Occupation Industry Not on [...] Progress Notes * Nayan [place], DPM - 08/20/2023 11:03 AM EDT Subjective: Patient presents with painful left great toe stump. Patient had IPJ level amputation due to osteomyelitis several years ago. Patient states that it still gets red and swollen occasionally. Patient states that the provider who did the surgery couldn't see her and one of his associates refused to treat her Patient alert and oriented to person, place and time. Past Medical History: Diagnosis Date Diabetic neuropathy [...] DIAGNOSTIC (RECTUM) 12/16/2016 adenomatous polyps, repeat 5 yrs/[facility] COLONOSCOPY, DIAGNOSTIC (RECTUM) 06/03/2022 diverticulosis, fair prep, repeat 5 yrs / [facility] EGD, FLEXIBLE, DIAGNOSTIC 12/16/2016 normal bx/[facility] EGD, FLEXIBLE, W/BIOPSY 07/30/2010 esophagitis, await BX LARYNGOPLASTY MEDIALIZATION UNILATERAL Right 05/28/2020 LARYNGOPLASTY, MEDIALIZATION UNILATERAL performed by Farhat Pate MD at [place] [facility] LARYNGOSCOPY, VOCAL CORD INJECTION Right 11/20/2019 LARYNGOSCOPY DIRECT INJECTION VOCAL CORD WITH MICROSCOPE performed by Amber Jain MD at [place] [facility] MISCELLANEOUS ORDER (HS ONLY) Bilateral 11/24/2017 Reinheimer-bleph/levators-ou OTHER (3 times) 8 inch benign tumor removed from L femur; regrew x 3 OTHER Removal of a benign LN from L axilla REMOVAL OF THYROID GLAND 10/23/2009 total thyroidectomy 10/23/09, [facility], Dr. Vazquez REMOVE CATARACT, INSERT LENS PROSTH Right 07/20/2017 right EXTRACAPSULAR CATARACT REMOVAL WITH INTRAOCULAR LENS performed by Luis Eduardo oCle MD at OR [facility] REMOVE CATARACT, INSERT LENS PROSTH Left 07/06/2017 left EXTRACAPSULAR CATARACT REMOVAL WITH INTRAOCULAR LENS performed by Luis Eduardo Cole MD at OR [facility] REMOVE GALLBLADDER 2005 or so Family History [...] on file Food Insecurity: No Food Insecurity Worried About Running Out of Food in [...] and1 Capsule before bedtime. 180 Capsule 1 [employer] Lancets 33G Use to test blood sugar three times daily E 11.9 300 Each 5 OneTouch Verio w/Device Kit Use up to 3 times a day E11.9 1 Kit 0 Pen Salem 32G X 4 MM Use as [...] facility-administered medications for this visit. REVIEW OF SYSTEMS ROS EXAM: CONSTITUTIONAL: No change in weight, No weakness, No fatigue, and No fevers, sweats, or chills EXTREMITIES: No pain, redness or swelling on the joints SKIN/INTEGUMENTARY: No edema, No rash, and No itching NEUROLOGIC: Normal balance, No headaches, No seizures, and No weakness DERMATOLOGICAL Temperature: wnl Texture: smooth Turger: normal Scaling: mild Hair Distribution: normal Right foot Interdigital Maceration: - Left foot Interdigital Maceration: - Right foot Nails: no problems Left foot Nails: no problems Lesions: Heloma durum 0 Left, 0 Right Submetatarsal tyloma 0 Left, 0 Right Heel callous: negative Pinch callous:negative VASCULAR EXAM Right foot Pulses: Dorsalis Pedis-2/4 palpable Left foot Pulses: Dorsalis Pedis- 2/4 palpable Right foot Subpapillary venous plexus filling time: within limits Left foot Subpapillary venous plexus filling time: within limits Right foot Posterior Tibial Pulse-1/4 palpable Left foot Posterior Tibial Pulse- 1/4 palpable Right foot Edema: none Left foot Edema: none Right foot Cyanosis: - Left foot Cyanosis: - Right foot Telangiectasias: - Left foot Telangiectasias: - Right foot Rubor: - Left foot Rubor: - Right foot Varicosities: - Left foot Varicosities: - NEUROLOGICAL Right foot Posterior Tibial Nerve: insensate Left foot Posterior Tibial Nerve: insensate Right foot Deep Peroneal Nerve: insensate Left foot Deep Peroneal Nerve: insensate Right foot Sural Nerve: insensate Left foot Sural Nerve: insensate Right foot Superficial Peroneal Nerve:sensate Left foot Superficial Peroneal Nerve: sensate [facility] is 0/10 bilateral Right Vibratory: decreased Left Vibratory:absent ORTHOPEDIC Muscles: Right inverters 5 Left inverters 5 Right everters: 5 Left everters: 5 Right Dorsiflexors: 5 Left Dorsiflexors: 5 Right Plantarflexors: 5 Left Plantarflexors: 5 Joint ROM: Right foot Ankle Joint: WNL Left foot Ankle Joint: WNL Right foot Subtalar joint: WNL Left foot Subtalar joint: WNL Right foot Midtarsal joint: WNL Left foot Midtarsal joint: WNL Right foot Metatarsal Phalangeal joint: WNL Left foot Metatarsal Phalangeal joint: WNL Right Equinus: - Left Equinus: - Right Masses: - Left Masses: - Right Effusions: - Left Effusions: - Left Deformities: previous IPJ amputation, no erythema or edema Right Deformities: N/A Gait Analysis: wnl Assessment: The primary encounter diagnosis was Pain of great toe, left. Diagnoses of Status post amputation of great toe, left (HCC) and Diabetic polyneuropathy associated with type 2 diabetes mellitus (HCC) were also pertinent to this visit. Plan: Discussed differential diagnoses Patient sent for x-rays of toes left foot to evaluate documented in this encounter Nursing Notes * MORRIS Montgomery - 08/20/2023 10:17 AM EDT SHAKER TENDER, DM, RFC. Juany states that part of her left great toe was amputated. Her toe is bothering. It'sred and irritated. It is catching on carpets. This has been happening for about 6 months. Her pain today is 6/10. documented in this encounter Plan of Treatment Upcoming Encounters Date Type Specialty Care Team Description 3 Office Visit Podiatry Nayan Franklin DPM [address] [place] [address] 3 Office Visit Family Medicine Ivonne French PA-C [address] [place] [address] 3 Hospital Encounter Endoscopy Lucio Machado, DO [address] [place] [address] 3 Surgery Endoscopy Lucio Machado, [address] [place] [address] ESOPHAGOGASTRODUODENOSCOPY (EGD), FLEXIBLE, TRANSORAL, DIAGNOSTIC 3 Office Visit Family Medicine Ivonne French PA-C [address] [place] [address] 3 Office Visit [facility] [address] [place] [address] 3 Office Visit [facility] Ivonne French PA-C [address] [place] [address] 4 Office Visit Cardiology Christian Cardenas PA-C [address] [place] [address] 4 Office Visit Hematology Oncology Shon Rice MD [address] [place] [address] 4 Office Visit Neurology Oralia Glass MD [address] [place] [address] 4 Office Visit Ophthalmology Migel Ramires MD [address] [place] [address] Pending Results Name Type Priority Associated Diagnoses Date /Time XR TOES 2 OR MORE VIEWS Medical Imaging Routine Pain of great toe, left 08/20/2023 11:11 AM EDT Scheduled Procedures Name Priority Associated Diagnoses Date/Ti sd ESOPHAGOGASTRODUODENOSCOPY ( EGD), FLEXIBLE, TRANSORAL, DIAGNOSTIC Esophageal dysphagia Swallowing problem 09/09/2023 7:30 AM EDT COLONOSCOPY FLEXIBLE PROXIMA L DIAGNOSTIC Recall History of colon polyps Health Maintenance Due Date Last Done Comments Pneumococcal Vaccine: Pediatrics (0 to 5 Years) and At-Risk Patients (6 to 64 Years) (2 - PCV) 12/20/2007 12/20/2006 Hepatitis B (3 of 3 - 19+ 3-dose series) 08/20/2017 06/25/2017, 03/28/2015 Depression, Most [...] encounter Medical Devices Implanted Type Area Physical Laboratory Assistant Device Identifier Shelf Expiration Date Model / Serial / Lot Lens Intraoc 21.0 - [id number] - [id number] Implanted:Qty : 1 on 07/06/2017 by Luis Eduardo Cole MD at OR [facility] Left: Eye [employer] LOM[employer] 01/05/2022 [id number] / [id number] / Lens Intraoc 21.0 - [id number] - [id number] Implanted:Qty : 1 on 07/20/2017 by Luis Eduardo Cole MD at OR [facility] Right: Eye BAUSCH [employer] LOMB 01/05/2022 [id number] / [id number] / Syringe Prolaryn Del 1.0cc - [id number] Implanted:Qty : 1 on 11/20/2019 by Amber Jain MD at [place] [facility] Right: Mouth [employer] 10/21/2021 [id number] / / [id number] Implant Silastic 7 Silicone Sw - [id number] Implanted:Qty : 1 on 05/28/2020 by Farhat Pate MD at [place] [facility] Right: Throat Two Tap [id number] / / documented as of this encounter Visit Diagnoses Diagnosis Pain of great toe, left- Primary Status post amputation of great toe, left (HCC) Diabetic polyneuropathy associated with type 2 diabetes mellitus (HCC) Esophageal dysphagia Dysphagia, pharyngoesophageal phase Swallowing [...] were consensually agreed upon. Care Teams Fur Sorter Relationship Specialty Start Date End Date Ivonne French PA-C [address] [place] [address] PCP - General Physician Manager Of Supply Chain 07/24/21 documented as of this encounter
--- OUTSIDE RECORDS SUMMARY | 2024-01-29 21:42 | External Medical Summary | Summary of Care ---
Author Name Unknown Organization [facility] Address [address] [place] [facility] [place] [address] Phone [phone] Care Team Providers Care Private Detective Name Role Phone Ivonne French PA-C Primary Care Provider [phone] Reason for Visit * Reason Comments Follow Up Pt presents for 3 mo nt follow up.No concerns. Encounter Details Date Type Department Care Team (Late st Contact Info) Description 09/03/2023 2:40 PM EDT Office Visit [facility] [address] [place] [facility] [place] [address] Ivonne French PA-C [address] [place] [address] Type 2 diabetes mellitus with hemoglobin A1c goal of 7.0%-8.0% ([facility])*; Compulsive eating patterns; Overweight (BMI 25.0-29.9); Influenza vaccination declined; Pneumococcal vaccination declined; Restless legs syndrome Allergies Active Allergy Reactions Criticality Noted Date [...] in the morning. 180 Capsule 0 3 Active amLODIPine Besylate 2.5 MG Oral Tablet (Norvasc)Indicati ons:Essential hypertension with goal blood pressure less than 130/80 Take 1 Tablet by mouth in the morning. 90 Tablet 3 3 Active Insulin Glargine Solostar 100 UNIT/ML Subcutaneous Solution Pen-injector (Lantus SoloStar) Inject 30 Units under the skin at bedtime. 30 mL 3 Active Lactulose 10 GM/15ML Oral Solution (Constulose)Indic ations:Constipati on, unspecified constipation type Take 30 mL by mouth in the morning and 30 mL at noon and 30 mL before bedtime. 240 mL 0 3 Active Linzess 72 MCG Oral Capsule (linaCLOtide)Lety cations:Drug-marian isael constipation Take 1 Capsule by mouth daily before breakfast. 90 Capsule 3 Active Melatonin 10 MG Oral Capsule Take 1 Capsule by mouth at bedtime. 100 Capsule 3 Active metFORMIN HCl 1000 MG Oral Tablet (Glucophage)Indic ations:Type 2 diabetes mellitus with hemoglobin A1c goal of 7.0%-8.0% (HCC) TAKE ONE TABLET BY MOUTH TWICE A DAY WITH MORNING AND EVENING MEALS 180 Tablet 3 Active Metoprolol Succinate ER 25 MG Oral Tablet Extended Release 24 Hour (toPROL XL)Indications:Co ronary artery disease involving [place] coronary artery of [place] heart without angina pectoris Take 1.5 Tablets by mouth in the morning. 135 Tablet 3 Active NovoLOG FlexPen 100 UNIT/ML Subcutaneous Solution Pen-injector (insulin aspart) Inject 20 Units under the skin in the morning and 20 Units at noon and 20 Units in the evening. Inject with meals. 30 mL 3 Active Omeprazole 20 MG Oral Capsule Delayed Release (PriLOSEC) Take 1 Capsule by mouth in the morning and 1 Capsule before bedtime. 180 Capsule 3 Active OneTouch Delica Lancets 33G Use to test blood sugar three times daily E 11.9 300 Each 3 Active OneTouch Verio w/Device Kit Use up to 3 times a day E11.9 1 Kit 3 Active Pen [place] 32G X 4 MM Use as directed. Use to inject insulin 4 times daily 100 Each 3 Active Triamcinolone Acetonide 0.1 % External Ointment (Aristocort)Indic ations:Contact dermatitis, unspecified contact dermatitis type, unspecified trigger Apply topically to affected area 2 times a day. Apply to hands and feet 80 g 2 3 Active Furosemide 20 MG Oral Tablet (Lasix)Indication s:Edema, unspecified type Take 1 Tablet by mouth once a day on Wednesday, Wednesday, and Wednesday only. 90 Tablet 3 3 Active OneTouch Verio In Vitro Strip (Glucose Blood) Use up to 3 times a day E11.9 100 Strip 11 3 Active Levothyroxine Sodium 150 MCG Oral Tablet (Synthroid) One tab daily Wednesday through Wednesday - half tab daily Wednesday and wednesday 90 Tablet 1 3 Active Mounjaro 7.5 MG/0.5ML Subcutaneous Solution Pen-injector (Tirzepatide)Lety cations:Type 2 diabetes mellitus with hemoglobin A1c goal of 7.0%-8.0% (HCC),Compulsive eating patterns,Overweig ht (BMI 25.0-29.9) Inject 7.5 mg under the skin once a week. 2 mL 1 3 09/02/20 24 Active Isosorbide Mononitrate ER 30 MG Oral Tablet Extended Release 24 Hour (Imdur) Take 1 Tablet by mouth in the morning. 30 Tablet 1 3 Active Magnesium 400 MG Oral TabletIndications :Restless legs syndrome Take 1 Tablet by mouth at bedtime. 90 Tablet 1 3 Active Mounjaro 5 MG/0.5ML Subcutaneous Solution Pen-injector (Tirzepatide)Lety cations:Type 2 diabetes mellitus with hemoglobin A1c goal of 7.0%-8.0% (HCC),Compulsive eating patterns,[place] ht (BMI 25.0-29.9) Inject 5 mg under the skin once a week. 6 mL 1 3 09/03/20 23 Discontinued Isosorbide Mononitrate ER 30 MG Oral Tablet Extended Release 24 Hour (Imdur) Take 0.5 Tablets by mouth in the morning. 31 Tablet 1 3 09/03/20 23 Discontinued(Ref ill) Isosorbide Mononitrate ER 30 MG Oral Tablet Extended Release 24 Hour (Imdur) Take 1 Tablet by mouth in the morning. 90 Tablet 1 3 09/03/20 23 Discontinued(Ref ill) documented as of this encounter (statuses as [...] Sign Reading Time Taken Comments Blood Pressure 110/60 09/03/2023 2:27 PM EDT Pulse 78 09/03/2023 2:27 PM EDT Temperature 36.6 C (97.8 F) 09/03/2023 2:27 PM ED T Respiratory Rate 16 09/03/2023 2:27 PM EDT Oxygen Saturation - - Inhaled Oxygen Concentration - - Weight 90.2 kg (198 lb 12.8 oz) 09/03/2023 2:27 PM EDT Height - - Body Mass Index 30.23 07/20/2023 9:58 AM EDT documented in this [...] Progress Notes * Ivonne French PA-C - 09/03/2023 2:34 PM EDT Images from the original note were not included. History of Present Illness Juany Resendez is a 58 year old female that presents for Follow Up (Pt presents for 3 month follow up./No concerns.) Here for reg return At her last appt she was switched to Mounjaro at her behest so she could try to drop some weight. Her first shot was 02 of August. She is doing this on Mondays. She has not noted any side affects of problems. It does not seem to be limiting her appetite at all. No other concerns Having some issues with restless leg. When she get sin bed her legs jerk and turn and ache. Hemoglobin AIC Results: Lab Results Component Value Date/Time HEMOGLOBIN A1C - [facility] 8.8 (H) 06/15/2023 10:06 AM HEMOGLOBIN A1C - [facility] 9.9 (H) 04/27/2023 09:44 AM HEMOGLOBIN A1C - [facility] 9.7 (H) 12/25/2022 10:38 AM HEMOGLOBIN A1C - [facility] 10.9 (H) 10/14/2020 12:10 PM HEMOGLOBIN A1C - [facility] 10.2 (H) 05/25/2020 09:43 AM HEMOGLOBIN A1C - [facility] 10.3 (H) 02/13/2020 12:01 PM Physical Exam Vitals: 09/03/23 1427 Temp: 36.6 C (97.8 F) Pulse: 78 Resp: 16 BP: 110/60 BP Readings from Last 3 Encounters: 09/03/23 110/60 07/20/23 124/60 07/19/23 114/66 Wt Readings from Last 3 Encounters: 09/03/23 90.2 kg (198 lb 12.8 oz) 07/20/23 88.8 kg (195 lb 12.8 oz) 07/19/23 88.3 kg (194 lb 9.6 oz) BMI Readings from Last 3 Encounters: 09/03/23 30.23 kg/m 07/20/23 29.77 kg/m 07/19/23 29.59 kg/m Ht Readings from Last 3 Encounters: [...] auscultation Extremities: less than 2 second capillary refill, no joint deformities, effusion, or inflammation Skin: skin color, texture, turgor are normal, no rashes or significant lesions Assessment and Plan Type 2 diabetes mellitus with hemoglobin A1c goal of 7.0%-8.0% ([facility]) (Primary) - Mounjaro 7.5 MG/0.5ML Subcutaneous Solution Pen-injector (Tirzepatide); Inject 7.5 mg under the skin once a week. - HEMOGLOBIN A1C; Future; Expected date: 09/03/2023 - LIPASE; Future; Expected date: 09/03/2023 - ALBUMIN / CREATININE RATIO, URINE; Future; Expected date: 09/03/2023 Compulsive eating patterns - Mounjaro 7.5 MG/0.5ML Subcutaneous Solution Pen-injector (Tirzepatide); Inject 7.5 mg under the skin once a week. Overweight (BMI 25.0-29.9) - Mounjaro 7.5 MG/0.5ML Subcutaneous Solution Pen-injector (Tirzepatide); Inject 7.5 mg under the skin once a week. Influenza vaccination declined Pneumococcal vaccination declined Restless legs syndrome - CBC WITH WBC DIFFERENTIAL AND ANEMIA REFLEX WORKUP; Future; Expected date: 09/03/2023 - Magnesium 400 MG Oral Tablet; Take 1 Tablet by mouth at bedtime. Start mag Consider requip if needed Other orders - Isosorbide Mononitrate ER 30 MG Oral Tablet Extended Release 24 Hour (Imdur); Take 1 Tablet by mouth in the morning. Refill done Wrap-Up Try next dose of mounjaro. Can then use 2 of the 5 mg for the dose change after that. Pt agrees with plan. Time: I spent a total of 20-29 minutes (exact time 23 mins) on the date of service in preparation, delivery, and documentation of the care provided to Juany Resendez excluding any time spent in the performance of separately billed services. Ivonne French PA-C 09/03/2023 2:43 PM documented in this encounter Nursing Notes * Beatriz Wall MED ASSIST - 09/03/2023 2:27 PM EDT The patient has been properly identified by confirmation of name and date of . Chief Complaint Patient presents with Follow Up Pt presents for 3 month follow up. No concerns. documented in this encounter Plan of Treatment Upcoming Encounters Date Type Department Care Team (Latest Contact Info) Description 09/09/2023 7:30 AM EDT Hospital Encounter ENDO [facility], Endoscopy Room [facility] [address] [place] [phone] Lucio Machado, DO [address] [place] [address] 09/09/2023 7:30 AM EDT - 09/09/2023 8:00 AM EDT Surgery ENDO [facility], Endoscopy Room [facility] [address] [place] [address] Lucio Machado, [address] [place] [address] ESOPHAGOGASTRODUODENOSCOPY (EGD), FLEXIBLE, TRANSORAL, DIAGNOSTIC 09/09/2023 1:00 PM EDT Office Visit [facility] [address] [facility], [place] [phone] Ivonne French PA-C [address] [facility], [place] [address] 09/17/2023 8:00 AM EST Office Visit Pharmacy, [facility] [address] [place] [address] [facility] [address] [facility] [place] [address] 10/01/2023 8:15 AM EST Imaging Radiology [facility] 1st [facility] [address] [facility] [place] [address] 10/08/2023 8:40 AM EST Office Visit Family Practice, [place] [address] [facility], [place] [phone] Ivonne French PA-C [address] [facility] [place] [address] 10/08/2023 9:15 AM EST Office Visit Podiatry [facility], [address] [place] [address] Nayan Franklin, [address] [address] 11/12/2023 8:40 AM EST Office Visit Family [facility], [place] [address] [facility], [place] [address] Ivonne French PA-C [address] [facility] [place] [address] 11/12/2023 9:30 AM EST Office Visit Cardiology, [facility] [address] [facility] [place] [address] Christian Cardenas PA-C [address] [facility] [place] [address] 12/16/2023 1:45 PM EST Office Visit Hematology/Onco logy [facility] [address] [place] [address] Shon Rice MD [address] [place] [address] 12/23/2023 1:00 PM EST Office Visit Neurology, [place] [address] [place] [address] Oralia Glass MD [address] [place] [address] 05/10/2024 8:15 AM EDT Office Visit Ophthalmology, [place] [address] [place] [address] Migel Ramires MD [address] [facility] [place] [address] Scheduled Orders Name Type Priority Associated Diagnoses Orde r Schedule HEMOGLOBIN A1C Lab Routine Type 2 diabetes mellitus with hemoglobin A1c goal of 7.0%-8.0% (HCC) Expected: 09/03/2023 (Approximate), Expires: 09/02/2024 LIPASE Lab Routine Type 2 diabetes mellitus with hemoglobin A1c goal of 7.0%-8.0% (HCC) Expected: 09/03/2023 (Approximate), Expires: 09/02/2024 ALBUMIN / CREATININE RATIO, URINE Lab Routine Type 2 diabetes mellitus with hemoglobin A1c goal of 7.0%-8.0% (HCC) Expected: 09/03/2023 (Approximate), Expires: 09/02/2024 CBC WITH WBC DIFFERENTIAL AND ANEMIA REFLEX WORKUP Lab Routine Restless legs syndrome Expected: 09/03/2023 (Approximate), Expires: 09/03/2024 Scheduled Procedures Name Priority Associated Diagnoses Date/Ti [...] this encounter Medical Devices Implanted Type Area Retail Store Clerk Device Identifier Shelf Expiration Date Model / Serial / Lot Lens Intraoc 21.0 - [id number] - [id number] Implanted:Qty : 1 on 07/06/2017 by Luis Eduardo Cole MD at OR [facility] Left: Eye BAUSCH [employer] LOMB 01/05/2022 [id number] / [id number] / Lens Intraoc 21.0 - [id number] - [id number] Implanted:Qty : 1 on 07/20/2017 by Luis Eduardo Cole MD at OR [facility] Right: Eye BAUSCH [employer] LOMB 01/05/2022 [id number] / [id number] / Syringe Prolaryn Del 1.0cc - [id number] Implanted:Qty : 1 on 11/20/2019 by Amber Jain MD [place] [facility] Right: Mouth [employer] 10/21/2021 [id number] / / [id number] Implant Silastic 7 Silicone Sw - [id number] Implanted:Qty : 1 on 05/28/2020 by Farhat Pate MD at [place] [facility] Right: Throat [employer] [id number] / / documented as of this encounter Visit Diagnoses Diagnosis Type 2 diabetes mellitus with hemoglobin A1c goal of 7.0%-8.0% ([facility])- Primary Compulsive eating patterns Eating disorder, unspecified Overweight (BMI 25.0-29.9) Overweight Influenza vaccination declined Vaccination not carried out because of patient refusal Pneumococcal vaccination declined Restless legs syndrome Restless legs syndrome (RLS) Esophageal dysphagia Dysphagia, pharyngoesophageal phase Swallowing problem [...] and were consensually agreed upon. Care Teams Private Detective Relationship Specialty Start Date End Date Ivonne French PA-C [address] [place] [address] PCP - General Physician Front Office Developer 07/24/21 documented as of this encounter
--- OUTSIDE RECORDS SUMMARY | 2024-01-29 21:42 | External Medical Summary | Summary of Care ---
Author Name Unknown Organization [facility] Address [address] [facility] [place] [address] Phone [phone] Care Team Providers Care Websphere Portal Architect Name Role Phone Ivonne French PA-C Primary Care Provider [phone] Reason for Visit * Reason Onset Date Comments Pre Op Discussion 05/25/2023 Encounter Details Date Type Department Care Team Description 05/25/2023 Telephone OR [facility], Operating Room [facility] [address] [place] [address] Kali Pritchard MD [address] [place] [address] Pre Op Discussion Allergies Active Allergy Reactions Severity Noted Date Comments Adhesive Tape 04/21/2016 Glue off the old style medical tape. documented as of this encounter (statuses as of 08/24/2023) Medications Medication Sig Dispensed Refills Start Date [...] Hour (toPROL XL)Indications:Cor onary artery disease involving [place] coronary artery of [place] heart without angina pectoris Take 1.5 Tablets [...] Capsule before bedtime. 180 Capsule 05/25/2023 Active Press-senseTouch Delica Lancets 33G Use to test blood sugar three times daily E 11.9 300 Each 05/25/2023 Active OneTouch Verio w/Device Kit Use up to 3 times a day E11.9 1 Kit 0 05/25/2023 Active Pen [place] 32G X 4 MM Use as directed. [...] as of this encounter (statuses as of 08/24/2023) Active Problems Problem Noted Date Varicose veins [...] as of this encounter (statuses as of 08/24/2023) Resolved Problems Problem Noted Date Resolved Date Toe osteomyelitis, left 05/29/2021 12/12/19 Ulcer of left great toe due to [...] as of this encounter (statuses as of 08/24/2023) Immunizations Name Administration Dates Next Due COVID-19 [...] Miscellaneous Notes * Telephone Encounter - Lalitha Daniels RN - 05/27/2023 1:51 PM EDT Attempted to call for pre anesthesia evaluation. No answer. Voice mail left requesting return call * Telephone Encounter - Sylvia Shukla RN - 05/25/2023 2:52 PM EDT Called patient for pre anesthesia evaluation for upcoming procedure ,no answer. Left message on machine /request return call documented in this encounter Plan of Treatment Upcoming Encounters Date Type Specialty Care Team Description 3 Office Visit Podiatry Nayan Franklin, EVANGELINA [address] [place] [address] 3 Office Visit Family Medicine Ivonne French PA-C [address] [facility] [place] [address] 3 Hospital Encounter Endoscopy Lucio Machado, DO [address] [place], [place] [address] 3 Surgery Endoscopy Lucio Machado, DO [address] [place] [address] ESOPHAGOGASTRODUODENOSCOPY (EGD), FLEXIBLE, TRANSORAL, DIAGNOSTIC 3 Office Visit Family Medicine Ivonne French PA-C [address] [facility] [place] [address] 3 Office Visit Pharmacy [facility] [address] [place] [address] 3 Office Visit Family Medicine Ivonne French PA-C [address] [facility] [place] [address] 4 Office Visit Cardiology Christian Cardenas PA-C [address] [place] [address] 4 Office Visit Hematology Oncology Shon Rice MD [address] [place] [address], [place] [address] 4 Office Visit Neurology Oralia Glass MD [address] [place] [address] 4 Office Visit Ophthalmology Migel Ramires MD 21 [facility] [place] [address] Scheduled Procedures Name Priority Associated Diagnoses Date/Ti [...] 09/16/2020, Additional history exists GFR 06/15/2024 06/15/2023, 0703/2023, 02/22/2023, Additional history exists PAP SMEAR-EVERY 3 [...] this encounter Medical Devices Implanted Type Area Dining Chair Seat Cushion Trimmer Device Identifier Shelf Expiration Date Model / Serial / Lot Lens Intraoc 21.0 - [id number] - [id number] Implanted:Qty : 1 on 07/06/2017 by Luis Eduardo Cole MD at OR [facility] Left: Eye [employer] 01/05/2022 [id number] / [id number] / Lens Intraoc 21.0 - [id number] - [id number] Implanted:Qty : 1 on 07/20/2017 by Luis Eduardo Cole MD at OR [facility] Right: Eye [employer] 01/05/2022 [id number] / [id number] / Syringe Prolaryn Del 1.0cc - [id number] Implanted:Qty : 1 on 11/20/2019 by Amber Jain MD at OR [facility] Right: Mouth [employer] 10/21/2021 [id number] / / [id number] Implant Silastic 7 Silicone Sw - [id number] Implanted:Qty : 1 on 05/28/2020 by Farhat Pate MD at OR [facility] Right: Throat [employer] [id number] / / documented as of this [...] and were consensually agreed upon. Care Teams Websphere Portal Architect Relationship Specialty Start Date End Date Ivonne French PA-C [address] [facility] [place] [address] PCP - General Physician Career Technical Education Teacher 07/24/21 documented as of this encounter
--- OUTSIDE RECORDS SUMMARY | 2024-01-29 21:42 | External Medical Summary | Summary of Care ---
Author Name Unknown Organization [facility] Address [address] [facility] [place] [address] Phone [phone] Care Team Providers Care Instructor Kindergarten Name Role Phone Ivonne French PA-C Primary Care Provider [phone] Reason for Visit * Reason Onset Date Comments Pre Op Discussion 09/06/2023 PAT call Encounter Details Date Type Department Care Team (Late st Contact Info) Description 09/06/2023 Telephone OR [facility], Operating Room [facility] [address] [place] [phone] Lucio Machado, [address] [place] [address] Pre Op Discussion (PAT call) Allergies Active Allergy Reactions Criticality Noted Date Comments Adhesive Tape 04/21/2016 Glue off the old style medical tape. documented as of this encounter (statuses as of 09/06/2023) Medications Medication Sig Dispensed Refills Start Date [...] Hour (toPROL XL)Indications:Craig nary artery disease involving [place] coronary artery of [place] heart without angina pectoris Take 1.5 Tablets [...] Capsule before bedtime. 180 Capsule 05/25/2023 Active Exchange GroupTouch Delica Lancets 33G Use to test blood sugar three times daily E 11.9 300 Each 05/25/2023 Active OneTouch Verio w/Device Kit Use up to 3 times a day E11.9 1 Kit 0 05/25/2023 Active Pen [place] 32G X 4 MM Use as directed. [...] of 7.0%-8.0% ([facility]),Compulsive eating patterns,Overweight (BMI 25.0-29.9) Inject 7.5 mg [...] as of this encounter (statuses as of 09/06/2023) Active Problems Problem Noted Date Diagnosed Date [...] as of this encounter (statuses as of 09/06/2023) Resolved Problems Problem Noted Date Diagnosed Date [...] as of this encounter (statuses as of 09/06/2023) Immunizations Name Administration Dates Next Due COVID-19 [...] Description 09/09/2023 1:00 PM EDT Office Visit Family Practice, [place] [address] [facility], [place] [address] Ivonne French PA-C [address] [facility], [place] [address] 09/17/2023 8:00 AM EST Office Visit Pharmacy, [facility] [address] [facility] [place] [address] [facility] [address] [facility] [place] [address] 10/01/2023 8:15 AM EST Imaging Radiology [facility] 1st [facility] [address] [facility] [place] [address] 10/08/2023 9:15 AM EST Office Visit Podiatry [address] [place] [address] Nayan Franklin, [facility] [address] [place] [address] 10/14/2023 1:40 PM EST Office Visit Family Practice, [place] [address] [facility], [place] [address] Ivonne French PA-C [address] [facility], [place] [address] 11/12/2023 8:40 AM EST Office Visit Family Practice, [place] [address] [facility] [address] Ivonne French PA-C [address] [facility], [place] [address] 11/12/2023 9:30 AM EST Office Visit Cardiology, [facility] [address] [facility] [place] [address] Christian Cardenas PA-C [address] [place] [address] 12/16/2023 1:45 PM EST Office Visit Hematology/Oncology [place] [address] [facility] [place] [address] Shon Rice MD [address] [facility] [place] [address] 12/23/2023 1:00 PM EST Office Visit Neurology, [place] [address] [place] [address] Oralia Glass MD [address] [place], [place] [address] 05/10/2024 8:15 AM EDT Office Visit Ophthalmology, [place] [facility] [place] [address] Migel Ramires MD 21 [facility] [place] [address] Scheduled Procedures Name Priority Associated Diagnoses Date/Ti [...] 09/16/2020, Additional history exists GFR 06/15/2024 06/15/2023, 070 03/2023, 02/22/2023, Additional history exists PAP SMEAR-EVERY [...] this encounter Medical Devices Implanted Type Area Card Decorator Device Identifier Shelf Expiration Date Model / Serial / Lot Lens Intraoc 21.0 - [id number] - [id number] Implanted:Qty : 1 on 07/06/2017 by Luis Eduardo Cole MD at OR [facility] Left: Eye [employer]OM[employer] 01/05/2022 [id number] / [id number] / Lens Intraoc 21.0 - [id number] - [id number] Implanted:Qty : 1 on 07/20/2017 by Luis Eduardo Cole MD at OR [facility] Right: Eye [employer] 01/05/2022 [id number] / [id number] / Syringe Prolaryn Del 1.0cc - [id number] Implanted:Qty : 1 on 11/20/2019 by Amber Jain MD at [place] [facility] Right: Mouth [employer] 10/21/2021 [id number] / / [id number] Implant Silastic 7 Silicone Sw - [id number] Implanted:Qty : 1 on 05/28/2020 by Farhat Pate MD at OR [facility] Right: Throat [employer] [id number] / / documented as of this [...] and were consensually agreed upon. Care Teams Instructor Kindergarten Relationship Specialty Start Date End Date Ivonne French PA-C [address] [facility] [place] [address] PCP - General Physician Office Automation Clerk 07/24/21 documented as of this encounter
[2024-01-29] MEDS: SODIUM CHLORIDE 0.9% 500 ML IV SCH (21:48)
[2024-01-29] MEDS: ACETAMINOPHEN 1,000 MG/100 ML VIAL IV STA (21:49)
[2024-01-29 22:04] LABS: Prothrombin Time 11.3 Seconds (9.0-12.0)
[2024-01-29 22:10] LABS: Albumin Globulin Ratio 1.2 (0.9-2); BUN Creatinine Ratio 17.7 (10-20); Bilirubin,Total 0.8 mg/dl (0.2-1.0); Calcium 8.6 mg/dl (8.6-10.3); Creatinine Clr Calc Pharmacy 48.9 ml/min; Est GFR (African American) 46.8 ml/min; Est GFR (Non-African American) 40.4 ml/min; Globulin 3.3 gm/dl (2.5-4.0); Magnesium 1.9 mg/dl (1.7-2.4); Phosphorus 3.7 mg/dl (2.5-4.9); Potassium 4.3 mmol/L (3.5-5.1); Thyroid Stimulating Hormone 1.187 uIu/ml (0.300-4.500); Total Protein 7.3 gm/dl (6.0-8.3)
[2024-01-29 22:53] LABS: Hematocrit (blood only) 20.6 % (37.0-47.0); Hemoglobin 7.3 g/dl (12.0-16.0); Mean Corpuscular Hemoglobin 30.2 pg (25.0-34.0); Mean Corpuscular Hgb Conc 35.4 g/dL (32.0-36.0); Mean Corpuscular Volume 85.1 fL (80.0-100.0); Mean Platelet Volume 10.8 fL (9.4-12.4); Platelet Count 92 K/uL (130-400); RDW Coefficient of Variation 14.8 % (11.5-14.5); RDW Standard Deviation 41.5 fL (36.4-46.3); Red Blood Count 2.42 M/uL (4.20-5.40); White Blood Count 0.85 K/ul (4.8-10.8)
[2024-01-29 22:54] LABS: Anisocytosis Present; Basophils # (auto) 0.01 K/uL (0.00-0.20); Basophils % (auto) 1.2 %; Eosinophils # (auto) 0.01 K/uL (0.00-0.50); Eosinophils % (auto) 1.2 %; Lymphocytes # (auto) 0.78 K/uL (1.20-3.40); Lymphocytes % (auto) 91.8 %; Monocytes # (auto) 0.01 K/uL (0.11-0.59); Monocytes % (auto) 1.2 %; Neutrophils # (auto) 0.04 K/uL (1.40-6.50); Neutrophils % (auto) 4.6 %
[2024-01-29] MEDS: SODIUM CHLORIDE 0.9% 1,000 ML IV ONE (23:41)
[2024-01-29 23:57] LABS: Reticulocyte % 1.68 % (0.50-2.00); Reticulocytes # 0.04 10^6/uL (0.020-0.100)
--- NOTE | 2024-01-29 23:57 | CT Scan Report ---
Exam(s): CT PELVIS Without Contrast EXAM: CT Pelvis Without Intravenous Contrast CLINICAL HISTORY: Reason for exam: pain fall. TECHNIQUE: Axial computed tomography images of the pelvis without intravenous contrast. Automated exposure control was utilized for the study. A dose lowering technique was utilized adhering to the principles of ALARA. COMPARISON: No relevant prior studies available. FINDINGS: No femoral neck or intertrochanteric hip fracture. No pelvic fracture. Intact bilateral superior and inferior pubic rami. Degenerative changes of the bilateral hip joints, pubic symphysis, and sacroiliac joints. Diffuse osseous demineralization. Lumbar spondylosis and disc space narrowing. Intrapelvic contents are within normal limits for the patient's age. Intact sacrum. IMPRESSION: No hip or pelvic fracture. Electronically signed by: Scott Esquivel MD 01/29/24 23:56 PM
--- NOTE | 2024-01-29 23:58 | CT Scan Report ---
Exam(s): CT C SPINE EXAM: CT Cervical Spine Without Intravenous Contrast CLINICAL HISTORY: Reason for exam: pain fall. TECHNIQUE: Axial computed tomography images of the cervical spine without intravenous contrast. Automated exposure control was utilized for the study. A dose lowering technique was utilized adhering to the principles of ALARA. COMPARISON: Comparison made to prior CT scan of the cervical spine from June 15, 2022. FINDINGS: Vertebrae: Status post anterior fusion of C6 and C7. No acute fracture. Discs/spinal canal/neural foramina: No acute findings. There is a severe spinal canal stenosis at C6-7. Soft tissues: Unremarkable. IMPRESSION: No evidence of acute cervical spine pathology. Electronically signed by: Sharlene Rawls MD 01/29/24 23:57 PM
--- NOTE | 2024-01-30 | CT Scan Report ---
Exam(s): CT HEAD Without Contrast EXAM: CT Head Without Intravenous Contrast CLINICAL HISTORY: Reason for exam: pain fall. TECHNIQUE: Axial computed tomography images of the head/brain without intravenous contrast. Automated exposure control was utilized for the study. A dose lowering technique was utilized adhering to the principles of ALARA. COMPARISON: No relevant prior studies available. FINDINGS: Brain: Unremarkable. No hemorrhage. No significant white matter disease. No edema. Ventricles: Unremarkable. No ventriculomegaly. Bones/joints: Hyperostosis frontalis interna. No acute fracture. Soft tissues: There are bilateral lens replacements. Sinuses: Unremarkable as visualized. No acute sinusitis. Mastoid air cells: Unremarkable as visualized. No mastoid effusion. IMPRESSION: No evidence of acute intracranial pathology. Electronically signed by: Sharlene Rawls MD 01/29/24 23:59 PM
--- NOTE | 2024-01-30 00:13 | CT Scan Report ---
Exam(s): CT T SPINE EXAM: CT Thoracic Spine Without Intravenous Contrast CLINICAL HISTORY: Reason for exam: pain fall. TECHNIQUE: Axial computed tomography images of the thoracic spine without intravenous contrast. Automated exposure control was utilized for the study. A dose lowering technique was utilized adhering to the principles of ALARA. COMPARISON: No relevant prior studies available. FINDINGS: Vertebrae: Unremarkable. No acute fracture. Anterior fusion of C6-C7. Discs/spinal canal/neural foramina: No acute findings. No spinal canal stenosis. Soft tissues: Findings concerning bronchitis, which may be infectious or inflammatory etiologies. IMPRESSION: No evidence of acute thoracic spine pathology. Electronically signed by: Sharlene Rawls MD 01/30/24 00:12 AM
--- NOTE | 2024-01-30 00:22 | CT Scan Report ---
Exam(s): CT L SPINE EXAM: CT Lumbar Spine Without Intravenous Contrast CLINICAL HISTORY: Reason for exam: pain fall. TECHNIQUE: Axial computed tomography images of the lumbar spine without intravenous contrast. Automated exposure control was utilized for the study. A dose lowering technique was utilized adhering to the principles of ALARA. COMPARISON: No relevant prior studies available. FINDINGS: Vertebrae: Unremarkable. No acute fracture. Discs/spinal canal/neural foramina: No acute findings. No spinal canal stenosis. Soft tissues: Unremarkable. IMPRESSION: No evidence of acute lumbar spine pathology. Electronically signed by: Sharlene Rawls MD 01/30/24 00:21 AM
[2024-01-30] MEDS ORDERED: GLUCOSE 10 TAB/TUBE PO PRN ×2 (00:45→01:30)
[2024-01-30] MEDS ORDERED: CARBOHYDRATES FOR HYPOGLYCEMIA PO PRN ×2 (00:45→01:30)
[2024-01-30] MEDS ORDERED: DEXTROSE 50% 50 ML SYRINGE IV PRN ×2 (00:45→01:30)
[2024-01-30] MEDS ORDERED: GLUCOSE 40% GEL 15 GM TUBE PO PRN ×2 (00:45→01:30)
[2024-01-30] MEDS ORDERED: GLUCAGON FOR INJ 1 MG VIAL IM PRN (00:45)
[2024-01-30] MEDS ORDERED: SODIUM CHLORIDE 0.9% 250 ML IV PRN ×2 (00:54→09:54)
[2024-01-30 01:30] LABS: Appearance Urine Clear (Clear); Bilirubin Urine Negative (Negative); Blood Urine Negative (Negative); Color Urine Yellow; Glucose Urine UA 3+ (Negative); Ketones Urine Negative (Negative); Leukocyte Esterase Urine Negative (Negative); Nitrite Urine Negative (Negative); Protein Urine Negative (Negative); Specific Gravity Urine 1.017 (1.000-1.030); Urobilinogen Urine Negative (Negative); pH Urine 5.5 (4.5-7.5)
[2024-01-30] MEDS ORDERED: GLUCAGON FOR INJ 1 MG VIAL SQ PRN (01:30)
[2024-01-30] MEDS: NovoLIN-R BOLUS FROM BAG IV ONE (01:41)
[2024-01-30] MEDS: INSULIN REGULAR 250 UNITS in SODIUM CHLORIDE 0.9% 247.5 ML IV SCH (01:42)
[2024-01-30] MEDS: STAT IV Infusion **Titration per Protocol STA (01:42)
[2024-01-30] MEDS: HHS GOAL RANGE 250-350 mg/dl ONE (01:42)
[2024-01-30] MEDS: INSULIN ASPART PER UNIT CHARGE SC SCH ×2 (01:55→08:40)
[2024-01-30] MEDS: LANTUS PER UNIT CHARGE SQ STA (01:56)
--- NOTE | 2024-01-30 02:29 | History & Physical Report ---
Date of Service January 30, 2024 Assessment & Plan (1) Symptomatic anemia: Plan: Hemoglobin drop from baseline secondary to pancytopenia secondary to chemotherapy for AML Head and neck trauma post fall Recurrent falls history ambulatory dysfunction, peripheral neuropathy as per records ARF, hypovolemia, patient hypotensive upon arrival at the ER Orthostasis contributory given likely autonomic neuropathy from poorly controlled DM Hyperglycemic crisis Suboptimal control as of recent hemoglobin A1c of 10.7 from December 2023 hx CAD/CVA valvular heart disease (mild AR/TR, TTE 2023) hyperlipidemia, on statin Rx thyroid CA status post surgery, postsurgical hypothyroidism, euthyroid as of today's TSH history left toe osteomyelitis anxiety/mood disorder/OCD, at baseline Medical telemetry Transfuse PRBC to maintain hemoglobin of at least of at least 8 Hold home diuretic until creatinine back to baseline Monitor creatinine response to IVF Hold aspirin for now until H&H stable Repeat CT head and neck after 12 hours Basal bolus insulin, ISS BG goal 1 10-1 40, carb count coverage PT OT eval once medically stable. DVT prophylaxis per SCDs Re: Traumatic neck contusion DNR Text document was generated using [employer] voice recognition software. It may contain grammatical or spelling errors. Kindly contact undersigned for clarification of any documentation item in question. History of Present Illness Chief Complaint: Fall Primary Care Provider: Ivonne French PA-C History obtained from patient and records. Medical history significant for CAD/CVA, valvular heart disease (mild AR/TR, TTE 2023), hypertension, hyperlipidemia, DM2 insulin requiring, thyroid CA status post surgery, postsurgical hypothyroidism, AML ongoing chemotherapy, pancytopenia (baseline hemoglobin of 8), history left toe osteomyelitis, anxiety/mood disorder/OCD, ambulatory dysfunction, neuropathy, frequent falls. Last confinement [facility] November 24-2023 for induction treatment for newly diagnosed AML. Patient saw outpatient [facility] Oncology provider last week on follow-up visit. Outpatient hemoglobin noted to be 7.9 two days ago from usual baseline of 8. Patient noted easy fatigability symptoms without chest pain or SOB. Denies black/bloody stools. Patient fell at home today after her legs gave out. Head and neck trauma resulting in bruise at the back of her neck. No LOC. Patient called her brother who subsequently called EMS. Initial SBP of 90s documented at the ER. 1 unit PRBC transfused at the ER. Medical History as above Surgical History : Toe amputation left, laryngoplasty, thyroidectomy, blepharoplasty, cataract surgeries, cholecystectomy, Family History : Heart disease, ovarian cancer, MS, DM Personal/Social history : Non-smoker, no EtOH intake, disabled Allergies Allergy/AdvReac Type Severity Reaction Status Date / Time adhesive tape Allergy Mild PER PT Verified 01/29/24 23:05 "GLUE ON TAPE"--SKIN IRRITATION Home Medications Medication Instructions Recorded Confirmed Type aspirin 81 mg tablet,delayed 81 mg PO QAM 02/18/19 01/29/24 History release omeprazole 20 mg tablet,delayed 20 mg PO BID 02/18/19 01/29/24 History release metoprolol succinate 25 mg 50 mg PO QAM 05/24/21 01/29/24 History tablet,extended release 24 hr insulin pump cart,cont inf,BT 12/30/21 01/30/24 History (Omnipod Dash Pods (Gen 4) subcutaneous cartridge) levothyroxine 150 mcg tablet 150 mcg PO 5XWK 12/30/21 01/29/24 History (Synthroid) duloxetine 60 mg capsule,delayed 60 mg PO QAM 12/02/22 01/29/24 History release insulin aspart U-100 100 unit/mL 0 unit subcut TIDM 12/02/22 01/29/24 History (3 mL) subcutaneous pen (Novolog FlexPen U-100 Insulin aspart) insulin glargine 100 unit/mL 25 unit subcut HS 12/02/22 01/29/24 History subcutaneous solution (Lantus U-100 Insulin) melatonin 10 mg tablet 10 mg PO HS 12/02/22 01/29/24 History acyclovir 400 mg tablet 400 mg PO BID 01/29/24 01/29/24 History allopurinol 300 mg tablet 300 mg PO QAM 01/29/24 01/29/24 History calcium carb,cit ER 600 mg-vit D3 1 tab PO QAM 01/29/24 01/29/24 History 12.5 mcg (500 unit) tablet,ext.rel furosemide 40 mg tablet 40 mg PO QAM 01/29/24 01/29/24 History isosorbide mononitrate 30 mg 30 mg PO QAM 01/29/24 01/29/24 History tablet,extended release 24 hr lactulose 10 gram/15 mL oral 15 ml PO BID PRN Constipation 01/29/24 01/29/24 History solution levothyroxine 75 mcg tablet 75 mcg PO 2XWK 01/29/24 01/29/24 History linaclotide 72 mcg capsule 72 mcg PO DAILYBB 01/29/24 01/29/24 History (Linzess) magnesium oxide 400 mg PO HS 01/29/24 01/29/24 History potassium chloride 20 mEq 20 meq PO QAM 01/29/24 01/29/24 History tablet,extended release rosuvastatin 20 mg tablet 20 mg PO DAILY 01/29/24 01/29/24 History sennosides 8.6 mg-docusate sodium 2 tab-cap PO BID PRN Constipation 01/29/24 01/29/24 History 50 mg tablet tirzepatide 10 mg/0.5 mL 10 mg subcut WK 01/29/24 01/29/24 History subcutaneous pen injector (Gabriel) triamcinolone acetonide 0.1 % 1 applic topical BID PRN Skin 01/29/24 01/29/24 History topical ointment Irritation Past Med/Surg History Medical History Paronychia of great toe of right foot GERD (gastroesophageal reflux disease) Hyperglycemia Amputation of toe CAD (coronary artery disease) Suicidal ideation resolved per pt Vulvitis resolved per pt Benign neoplasm of vulva of clitoris Restless leg syndrome Hypertension Tumor LEFT FEMUR (BENIGN) 2 TUMORS REMOVED > several yrs ago Peripheral neuropathy Stroke 7 YEARS AGO (LEFT SIDE WEAKNESS/LEFT EYE DROOPING) > follows with a neurologist unsure of name Myocardial Infarction 12 YEARS AGO (FOLLOWED BY DR. DODSON) VERBALIZED NO HEART CATH DONE Schwannoma REMOVED BY DR. GROSSMAN MARCH 2018 Diabetes mellitus, type II insulin pump History of thyroid cancer with surgical intervention Anxiety Surgical History History of cardiac cath March 2022, [facility] > no stents/ just check up per pt History of neck surgery anterior cervical discectomy with bilateral foraminotomies C6-7. #2 anterior cervical arthrodesis C6-7. #3 placement of titanium 9.9 mm cage filled with DBM and C6-7. #4 occasional hernandez plate and screws across C6-7 >> ROM no limitations History of surgery robot-assist left thorascopic resection of schwannoma from left upper mediastinum. 03/16/2018. SANG. A line. No issues. S/P LASIK surgery of both eyes Status post hysteroscopic ablation of endometrium Family history of reaction to anesthesia BROTHER-NAUSEA History of anesthesia reaction SLOW TO WAKE UP History of esophagogastroduodenoscopy (EGD) History of colonoscopy History of cholecystectomy History of thyroidectomy, total History of tooth extraction History of tonsillectomy H/O blepharoplasty RT/LEFT Family History Grandmother (Maternal) Family history of diabetes mellitus Mother Ovarian cancer Father Myocardial infarction Social History Smoking Status: Never smoker Second Hand Exposure: No; Do You Dip or Chew Tobacco: No; Hx Alcohol Use: No Hx Substance Use: No Preferred Language: Albanian Communication Ability: Effective [employer] Required: No Beliefs That Will Affect Care: None marital status: / Current Living Situation: Alone How many Children do You have: 2 Feels Safe at Home: Yes Assistive Devices: None Review of Systems Review of Systems: As per HPI, all other systems reviewed and negative Physical Exam Physical Exam: GENERAL: Apathetic, obese, no respiratory distress SKIN: Pallor, warm HEENT: Pale palpebral conjunctivae, no ptosis, dry buccal mucosa NECK : Supple, contusion over posterior neck, posterior cervical tenderness CHEST : Decreased breath sounds, no tenderness HEART : RRR, no obvious murmurs ABDOMEN: Some distention, nontender EXTREMITIES : No LE swelling/tenderness, no other conspicuous deformities noted NEUROLOGIC : Coherent, no facial asymmetry, gait and stance not assessed Results & Data Results & Data Vital Signs (Past 12 Hours) Vital Signs Temp Pulse Resp BP Pulse Ox O2 Del Method 01/30/24 02:25 36.5 C 71 18 120/61 96 01/30/24 00:30 69 15 115/61 96 01/30/24 00:00 70 16 112/60 95 01/29/24 23:30 70 16 109/59 L 96 01/29/24 23:00 70 16 104/59 L 95 01/29/24 22:30 118/58 L 01/29/24 22:30 69 16 95 Room Air 01/29/24 22:13 73 9 L 96 Room Air 01/29/24 21:30 99/46 L 01/29/24 21:30 72 16 96 01/29/24 21:29 95 Room Air 01/29/24 21:10 72 12 96 01/29/24 21:09 73 01/29/24 20:56 36.6 C 73 17 124/61 96 Room Air Laboratory Results Laboratory Results WBC 0.85 K/ul (4.8-10.8) L* 01/29/24 21:16 RBC 2.42 M/uL (4.20-5.40) L 01/29/24 21:16 Hgb 7.3 g/dl (12.0-16.0) L 01/29/24 21:16 POC Hgb 7.5 g/dl (12.0-16.0) L 01/29/24 21:22 Hct 20.6 % (37.0-47.0) L* 01/29/24 21:16 POC Hct 22 % (37-47) L 01/29/24 21:22 MCV 85.1 fL (80.0-100.0) 01/29/24 21:16 MCH 30.2 pg (25.0-34.0) 01/29/24 21:16 MCHC 35.4 g/dL (32.0-36.0) 01/29/24 21:16 RDW Std Deviation 41.5 fL (36.4-46.3) 01/29/24 21:16 RDW Coeff of Daphney 14.8 % (11.5-14.5) H 01/29/24 21:16 Plt Count 92 K/uL (130-400) L 01/29/24 21:16 MPV 10.8 fL (9.4-12.4) 01/29/24 21:16 Immature Gran % (Auto) 0.0 % 01/29/24 21:16 Neut % (Auto) 4.6 % 01/29/24 21:16 Lymph % (Auto) 91.8 % 01/29/24 21:16 [place] % (Auto) 1.2 % 01/29/24 21:16 Eos % (Auto) 1.2 % 01/29/24 21:16 Baso % (Auto) 1.2 % 01/29/24 21:16 Reticulocyte % (Auto) 1.68 % (0.50-2.00) 01/29/24 21:16 Neut # (Auto) 0.04 K/uL (1.40-6.50) L* 01/29/24 21:16 Lymph # (Auto) 0.78 K/uL (1.20-3.40) L 01/29/24 21:16 [place] # (Auto) 0.01 K/uL (0.11-0.59) L 01/29/24 21:16 Eos # (Auto) 0.01 K/uL (0.00-0.50) 01/29/24 21:16 Baso # (Auto) 0.01 K/uL (0.00-0.20) 01/29/24 21:16 Reticulocyte # 0.040 10^6/uL (0.020-0.100) 01/29/24 21:16 Immature Gran # (Auto) 0.00 K/uL (0.01-0.20) L 01/29/24 21:16 Anisocytosis Present 01/29/24 21:16 PT 11.3 Seconds (9.0-12.0) 01/29/24 21:16 INR 1.0 (0.9-1.1) 01/29/24 21:16 POC Sodium 131 mmol/L (135-144) L 01/29/24 21:22 Sodium 130 mmol/L (136-145) L 01/29/24 21:16 POC Potassium 4.3 mmol/L (3.3-5.0) 01/29/24 21:22 Potassium 4.3 mmol/L (3.5-5.1) 01/29/24 21:16 POC Chloride 92 mmol/L (101-112) L 01/29/24 21:22 Chloride 94 mmol/L (98-107) L 01/29/24 21:16 Carbon Dioxide 27 mmol/L (21-32) 01/29/24 21:16 POC Total CO2 26 mmol/L (24-31) 01/29/24 21:22 Anion Gap 9 (3-11) 01/29/24 21:16 POC Anion Gap 18.0 mmol/L (16-25) 01/29/24 21:22 POC BUN 24 mg/dl (7-18) H 01/29/24 21:22 BUN 25 mg/dl (6-23) H 01/29/24 21:16 Creatinine 1.41 mg/dl (0.6-1.2) H 01/29/24 21:16 POC Creatinine 1.4 mg/dl (0.6-1.3) H 01/29/24 21:22 Est Cr Clr Drug Dosing 48.9 ml/min 01/29/24 21:16 Est GFR ( Amer) 46.8 ml/min 01/29/24 21:16 Est GFR (Non-Af Amer) 40.4 ml/min 01/29/24 21:16 BUN/Creatinine Ratio 17.7 (10-20) 01/29/24 21:16 Glucose 524 mg/dl (70-99(Fasting)) H* 01/29/24 21:16 POC Glucose 486 mg/dl (70-99) H* 01/30/24 00:42 POC Glucose (other) 516 mg/dl (70-99) H* 01/29/24 21:22 Osmolality 308 mOsm/kg (280-300) H 01/29/24 21:16 Calcium 8.6 mg/dl (8.6-10.3) 01/29/24 21:16 POC Ioniz Calcium [place] 1.13 mmol/l (1.12-1.32) 01/29/24 21:22 Phosphorus 3.7 mg/dl (2.5-4.9) 01/29/24 21:16 Magnesium 1.9 mg/dl (1.7-2.4) 01/29/24 21:16 Iron 141 mcg/dl (35-150) 01/29/24 21:16 Unsaturated IBC 146 mcg/dl (155-355) L 01/29/24 21:16 Transferrin 197 mg/dl (200-360) L 01/29/24 21:16 Ferritin 1292.0 ng/ml (8-388) H 01/29/24 21:16 Total Bilirubin 0.8 mg/dl (0.2-1.0) 01/29/24 21:16 AST 22 U/L (13-39) 01/29/24 21:16 ALT 28 U/L (7-52) 01/29/24 21:16 Alkaline Phosphatase 128 U/L (34-104) H 01/29/24 21:16 Total Creatine Kinase 48 U/L (26-192) 01/29/24 21:16 Total Protein 7.3 gm/dl (6.0-8.3) 01/29/24 21:16 Albumin 4.0 gm/dl (3.4-5.0) 01/29/24 21:16 Globulin 3.3 gm/dl (2.5-4.0) 01/29/24 21:16 Albumin/Globulin Ratio 1.2 (0.9-2) 01/29/24 21:16 TSH 1.187 uIu/ml (0.300-4.500) 01/29/24 21:16 Urine Color Yellow 01/30/24 Unknown Urine Appearance Clear (Clear) 01/30/24 Unknown Urine pH 5.5 (4.5-7.5) 01/30/24 Unknown Ur Specific [place] 1.017 (1.000-1.030) 01/30/24 Unknown Urine Protein Negative (Negative) 01/30/24 Unknown Urine Glucose (UA) 3+ (Negative) H 01/30/24 Unknown Urine Ketones Negative (Negative) 01/30/24 Unknown Urine Blood Negative (Negative) 01/30/24 Unknown Urine Nitrite Negative (Negative) 01/30/24 Unknown Urine Bilirubin Negative (Negative) 01/30/24 Unknown Urine Urobilinogen Negative (Negative) 01/30/24 Unknown Ur Leukocyte Esterase Negative (Negative) 01/30/24 Unknown Blood Type O Positive 01/30/24 00:43 Antibody Screen NEGATIVE 01/30/24 00:43 Crossmatch See Detail 01/30/24 00:[address] 01/29/24 21:39 Exam(s): CT C SPINE EXAM: CT Cervical Spine Without Intravenous Contrast CLINICAL HISTORY: Reason for exam: pain fall. TECHNIQUE: Axial computed tomography images of the cervical spine without intravenous contrast. Automated exposure control was utilized for the study. A dose lowering technique was utilized adhering to the principles of ALARA. COMPARISON: Comparison made to prior CT scan of the cervical spine from June 15, 2022. FINDINGS: Vertebrae: Status post anterior fusion of C6 and C7. No acute fracture. Discs/spinal canal/neural foramina: No acute findings. There is a severe spinal canal stenosis at C6-7. Soft tissues: Unremarkable. IMPRESSION: No evidence of acute cervical spine pathology. Electronically signed by: Sharlene Rawls MD 01/29/24 23:[address] 01/29/24 21:39 Exam(s): CT HEAD Without Contrast EXAM: CT Head Without Intravenous Contrast CLINICAL HISTORY: Reason for exam: pain fall. TECHNIQUE: Axial computed tomography images of the head/brain without intravenous contrast. Automated exposure control was utilized for the study. A dose lowering technique was utilized adhering to the principles of ALARA. COMPARISON: No relevant prior studies available. FINDINGS: Brain: Unremarkable. No hemorrhage. No significant white matter disease. No edema. Ventricles: Unremarkable. No ventriculomegaly. Bones/joints: Hyperostosis frontalis interna. No acute fracture. Soft tissues: There are bilateral lens replacements. Sinuses: Unremarkable as visualized. No acute sinusitis. Mastoid air cells: Unremarkable as visualized. No mastoid effusion. IMPRESSION: No evidence of acute intracranial pathology. Electronically signed by: Sharlene Rawls MD 01/29/24 23:[address] 01/29/24 21:39 Exam(s): CT L SPINE EXAM: CT Lumbar Spine Without Intravenous Contrast CLINICAL HISTORY: Reason for exam: pain fall. TECHNIQUE: Axial computed tomography images of the lumbar spine without intravenous contrast. Automated exposure control was utilized for the study. A dose lowering technique was utilized adhering to the principles of ALARA. COMPARISON: No relevant prior studies available. FINDINGS: Vertebrae: Unremarkable. No acute fracture. Discs/spinal canal/neural foramina: No acute findings. No spinal canal stenosis. Soft tissues: Unremarkable. IMPRESSION: No evidence of acute lumbar spine pathology. Electronically signed by: Sharlene Rawls MD 01/30/24 00:[address] 01/29/24 21:39 Exam(s): CT PELVIS Without Contrast EXAM: CT Pelvis Without Intravenous Contrast CLINICAL HISTORY: Reason for exam: pain fall. TECHNIQUE: Axial computed tomography images of the pelvis without intravenous contrast. Automated exposure control was utilized for the study. A dose lowering technique was utilized adhering to the principles of ALARA. COMPARISON: No relevant prior studies available. FINDINGS: No femoral neck or intertrochanteric hip fracture. No pelvic fracture. Intact bilateral superior and inferior pubic rami. Degenerative changes of the bilateral hip joints, pubic symphysis, and sacroiliac joints. Diffuse osseous demineralization. Lumbar spondylosis and disc space narrowing. Intrapelvic contents are within normal limits for the patient's age. Intact sacrum. IMPRESSION: No hip or pelvic fracture. Electronically signed by: Scott Esquivel MD 01/29/24 23:[address] 01/29/24 21:39 Exam(s): CT T SPINE EXAM: CT Thoracic Spine Without Intravenous Contrast CLINICAL HISTORY: Reason for exam: pain fall. TECHNIQUE: Axial computed tomography images of the thoracic spine without intravenous contrast. Automated exposure control was utilized for the study. A dose lowering technique was utilized adhering to the principles of ALARA. COMPARISON: No relevant prior studies available. FINDINGS: Vertebrae: Unremarkable. No acute fracture. Anterior fusion of C6-C7. Discs/spinal canal/neural foramina: No acute findings. No spinal canal stenosis. Soft tissues: Findings concerning bronchitis, which may be infectious or inflammatory etiologies. IMPRESSION: No evidence of acute thoracic spine pathology. Electronically signed by: Sharlene Rawls MD 01/30/24 00:12 AM Diagnostic Findings EKG as per my interpretation :Rate 75, NSR, normal axis, RBBB, T wave abnormalities inferior leads
[2024-01-30] MEDS ORDERED: ACETAMINOPHEN 325 MG TAB PO PRN (02:33)
[2024-01-30] MEDS ORDERED: PROMETHAZINE HCL 6.25 MG in SODIUM CHLORIDE 0.9% 50 ML IV PRN (02:33)
[2024-01-30] MEDS ORDERED: oxyCODONE HCL IR 5 MG TAB (IMMEDIATE RELEASE) PO PRN (02:33)
[2024-01-30] MEDS ORDERED: DOCUSATE SODIUM/SENNA 50/8.6MG TAB PO PRN (03:25)
[2024-01-30] MEDS: SODIUM CHLORIDE 0.9% 500 ML IV ONE (05:45)
[2024-01-30 06:45] LABS: Hematocrit (blood only) 21.7 % (37.0-47.0); Hemoglobin 7.5 g/dl (12.0-16.0); Mean Corpuscular Hemoglobin 29.1 pg (25.0-34.0); Mean Corpuscular Hgb Conc 34.6 g/dL (32.0-36.0); Mean Corpuscular Volume 84.1 fL (80.0-100.0); Platelet Count 56 K/uL (130-400); RDW Standard Deviation 41.8 fL (36.4-46.3); Red Blood Count 2.58 M/uL (4.20-5.40); White Blood Count 0.99 K/ul (4.8-10.8)
[2024-01-30 06:49] LABS: BUN Creatinine Ratio 21.2 (10-20); Calcium 8.1 mg/dl (8.6-10.3); Creatinine Clr Calc Pharmacy 69.6 ml/min; Est GFR (African American) 71.8 ml/min; Est GFR (Non-African American) 61.9 ml/min; Potassium 3.8 mmol/L (3.5-5.1)
[2024-01-30 07:40] LABS: Ovalocytes 1+; Polychromasia 1+; Tear Drop Cells 1+
[2024-01-30] MEDS: LEVOTHYROXINE SODIUM 75 MCG TABLET PO SCH (07:42)
[2024-01-30] MEDS: linaCLOtide 72 MCG CAPSULE PO SCH (07:42)
[2024-01-30 07:52] LABS: Basophils # (auto) 0.01 K/uL (0.00-0.20); Eosinophils # (auto) 0.01 K/uL (0.00-0.50); Lymphocytes # (auto) 0.92 K/uL (1.20-3.40); Lymphocytes % (auto) 92.9 %; Monocytes # (auto) 0.01 K/uL (0.11-0.59); Neutrophils # (auto) 0.04 K/uL (1.40-6.50); Neutrophils % (auto) 4.1 %
--- NOTE | 2024-01-30 07:57 | CT Scan Report ---
CT head/brain wo con CLINICAL HISTORY: ffup, head trauma, eliquis Technique: Contiguous axial CT images of the head were acquired from the base of the skull to the jose home without intravenous contrast administration. Images were viewed in brain, subdural and bone windo ws. Automated dose lowering techniques and/or adjustment according to patient size were utilized for this exam. Comparison: Comparison is made to CT head 01/29/2024 Findings: The ventricles, basal cisterns, and cerebral sulci are normal. There is no acute intracranial hemorrh age or evidence of acute territorial infarction. Neither mass effect, shift of the midline structures , nor abnormal extra-axial fluid collections are shown. Minimal soft tissue thickening is seen in the right maxillary sinus. The orbits appear normal. There are no acute fractures of the calvaria or scalp swelling. Impression: No acute intracranial hemorrhage, no evidence of acute territorial infarction or other acute intracra nial disease process. ACT 112: Negative or not required by law. Electronically signed by: Ayaz Santana M.D. 01/30/2024 7:56 AM
--- NOTE | 2024-01-30 08:06 | CT Scan Report ---
CT cervical spine wo con CLINICAL HISTORY: ffup, neck trauma/bruise, eliquis TECHNIQUE: Multidetector row helical CT of the cervical spine was performed without administration of intravenous contrast. Coronal and sagittal reformations were obtained. Automated dose lowering techn iques and/or adjustment according to patient size were utilized for this exam. Comparison: Comparison is made to CT cervical spine 01/29/2024 FINDINGS: No acute fractures or subluxations are identified. Degenerative changes are seen in the visualized sp ine. The alignment is normal. Soft tissues are unremarkable. IMPRESSION: Degenerative changes without evidence of acute bony injury. ACT 112: Negative or not required by law. Electronically signed by: Ayaz Santana M.D. 01/30/2024 8:04 AM
--- NOTE | 2024-01-30 08:34 | XRay Report ---
XR chest 1V portable CLINICAL HISTORY: hyponatremia TECHNIQUE: Single frontal radiograph of the chest was obtained. Comparison: Comparison is made to chest radiograph 12/02/2022 FINDINGS: No lines and tubes are seen. Cardiomegaly is noted. The aortic arch is calcified. The lungs are clear . No evidence of pleural effusion or pneumothorax. IMPRESSION: No acute chest disease. Cardiomegaly is noted. ACT 112: Negative or not required by law. Electronically signed by: Ayaz Santana M.D. 01/30/2024 8:33 AM
--- NOTE | 2024-01-30 08:49 | Electrocardiogram Report ---
Test Reason : Blood Pressure : / mmHG Vent. Rate : 073 BPM Atrial Rate : 073 BPM P-R Int : 162 ms QRS Dur : 136 ms QT Int : 458 ms P-R-T Axes : 043 076 018 degrees QTc Int : 504 ms Normal sinus rhythm Right bundle branch block with repolarization abnormality Abnormal ECG When compared with ECG of 04-DEC-2022 05:10, No significant change Confirmed by Enrique Madden ([id number]) on 01/30/2024 8:48:58 AM Referred By: REFERRED SELF Confirmed By:Enrique Madden
[2024-01-30] MEDS: ACYCLOVIR 400 MG TAB PO SCH (09:42)
[2024-01-30] MEDS: allopurinoL 300 MG TAB PO SCH (09:43)
[2024-01-30] MEDS: DULoxetine HCL 60 MG CAP PO SCH (09:43)
[2024-01-30] MEDS: ISOSORBIDE MONO EXTENDED REL 30 MG TABCR PO SCH (09:44)
[2024-01-30] MEDS: ROSUVASTATIN CALCIUM 20 MG TAB PO SCH (09:45)
[2024-01-30] MEDS: METOPROLOL SUCC 25MG EXT REL TAB PO SCH (09:45)
[2024-01-30] MEDS: PANTOprazole 40 MG TAB PO SCH (09:45)
[2024-01-30 14:33] LABS: Hematocrit (blood only) 25.2 % (37.0-47.0); Hemoglobin 8.6 g/dl (12.0-16.0)
--- NOTE | 2024-01-30 15:33 | Discharge Summary ---
Date of Service January 30, 2024 Admission HPI Per Admitting Provider History obtained from patient and records. Medical history significant for CAD/CVA, valvular heart disease (mild AR/TR, TTE 2023), hypertension, hyperlipidemia, DM2 insulin requiring, thyroid CA status post surgery, postsurgical hypothyroidism, AML ongoing chemotherapy, pancytopenia (baseline hemoglobin of 8), history left toe osteomyelitis, anxiety/mood disorder/OCD, ambulatory dysfunction, neuropathy, frequent falls. Last confinement [facility] November 24-2023 for induction treatment for newly diagnosed AML. Patient saw outpatient [facility] Oncology provider last week on follow-up visit. Outpatient hemoglobin noted to be 7.9 two days ago from usual baseline of 8. Patient noted easy fatigability symptoms without chest pain or SOB. Denies black/bloody stools. Patient fell at home today after her legs gave out. Head and neck trauma resulting in bruise at the back of her neck. No LOC. Patient called her brother who subsequently called EMS. Initial SBP of 90s documented at the ER. 1 unit PRBC transfused at the ER. Medical History as above Surgical History : Toe amputation left, laryngoplasty, thyroidectomy, blepharoplasty, cataract surgeries, cholecystectomy, Family History : Heart disease, ovarian cancer, MS, DM Personal/Social history : Non-smoker, no EtOH intake, disabled Admission Exam Per Admitting Provider GENERAL: Apathetic, obese, no respiratory distress SKIN: Pallor, warm HEENT: Pale palpebral conjunctivae, no ptosis, dry buccal mucosa NECK : Supple, contusion over posterior neck, posterior cervical tenderness CHEST : Decreased breath sounds, no tenderness HEART : RRR, no obvious murmurs ABDOMEN: Some distention, nontender EXTREMITIES : No LE swelling/tenderness, no other conspicuous deformities noted NEUROLOGIC : Coherent, no facial asymmetry, gait and stance not assessed Principal Diagnosis Symptomatic anemia Easy fatigability Weakness Discharge Exam GENERAL: Apathetic, obese, no respiratory distress SKIN: No Pallor, warm HEENT: Pale palpebral conjunctivae, no ptosis, moist buccal mucosa NECK : Supple, contusion over posterior neck, posterior cervical tenderness CHEST : Decreased breath sounds, no tenderness HEART : RRR, no obvious murmurs ABDOMEN: Some distention, nontender EXTREMITIES : No LE swelling/tenderness, no other conspicuous deformities noted NEUROLOGIC : Coherent, no facial asymmetry, gait and stance not assessed Discharge Data Allergies Allergy/AdvReac Type Severity Reaction Status Date / Time adhesive tape Allergy Mild PER PT Verified 01/29/24 23:05 "GLUE ON TAPE"--SKIN IRRITATION Consultations 01/30/24 00:54 ED Decision to Admit Stat Ordered Studies 01/29/24 21:39 CT cervical spine wo con Stat CT head/brain wo con Stat CT lumbar spine wo con Stat CT pelvis wo con Stat CT thoracic spine wo con Stat 01/30/24 02:35 CT cervical spine wo con Urgent 01/30/24 09:30 CT head/brain wo con Urgent Hospital Course (1) Symptomatic anemia: Patient was seen and examined at bedside as a follow-up of symptomatic anemia in the setting of pancytopenia secondary to chemotherapy for AML. She also sustained a fall due to weakness and hit her head and neck. Admitting and repeat CT scan of head and neck were negative for any bleed. She received 2 units PRBC, hemoglobin was 8.6. Her electrolyte abnormalities and EBONY did improve today. Her neutropenia is gradually improving and expect to improve with time further away from last chemo dose. Pt advised to avoid sick contacts if she prefers to go home. Patient insists that she would like to go home and would not like to wait for PT/OT evaluation. Per RN, patient is moving to and back from bathroom okay with a steady gait. Patient reports she feels back to her baseline. She declined any SI/HI. She denies any viral illness/cough/sob/chest pain. Patient has been advised to closely follow-up with PCP and oncology physician upon discharge. Same has been communicated to patient's brother Juan Manuel who states he is going to take her home and will take care of her closely. She is being discharged with following instruction at the point of discharge: Follow-up with your primary care physician within a week time and likely you will need labs CBC/CMP/magnesium/phosphorus. Since it was discussed in detail with you at bedside (w/ RN present at bedside) and also again follow-up conversation over the phone that it is important that you stay overnight and have your self evaluated by physical therapy before deciding on discharge back to home. And since you have stated you feel back to your baseline and would like to go home regardless, please take care of yourself. If you have worsening weakness or anything other concerns please feel free to consult back to the hospital. You can use over the counter Tylenol for mild to moderate pain. Take your meds as prior. Please make sure that you are able to get your medications today by calling your pharmacy before you leave the hospital so that your treatment continuity is not broken. Text document was generated using [employer] voice recognition software. It may contain grammatical or spelling errors. Kindly contact undersigned for clarification of any documentation item in question. Home Health Attestation I certify that this patient is under my care and that I, or a physicians physician assistant surgery working with me, had a face to-face encounter that meets the home health [id number] encounter requirements with this patient. The encounter with the patient was in whole, or in part, for the following medical condition, which is the primary reason for home health care (list medical condition): I certify that, based on my findings, the following services are medically necessary home health services: My clinical findings support the need for the above services because: Further, I certify that my clinical findings support that this patient is homebound (i.e. absences from home require considerable and taxing effort and are for medical reasons or jainism services or infrequently or of short duration when for other reasons) because: Certification for Home Health Services: Based on the above findings, I certify that this patient is confined to the home and needs intermittent chcf care, physical therapy and/or speech therapy or continues to need occupational therapy. The patient is under my care, and I have initiated the establishment of the plan of care. This patient will be followed by a physician who will periodically review the plan of care. Total Time Total Time Spent Total Time Spent (In Minutes): 45 Discharge Plan Discharge Items Patient Disposition: Home - Self-Care Reason For Visit: SYMPTOMATIC ANEMIA Discharge Diagnosis: Symptomatic anemia Easy fatigability Weakness Activity: Resume your previous activity Non-emergency contact: Primary Care Provider Call non-emergency contact if: you have any medication questions, your symptoms worsen and your temperature is above 101 Follow-up/Referrals: Ivonne French PA-C [Primary Care Provider] - Diet: Carb Consistent or DM2 and Heart Healthy Addtl Attending Provider Instructions: Follow-up with your primary care physician within a week time and likely you w ill need labs CBC/CMP/magnesium/phosphorus. Since it was discussed in detail with you at bedside (w/ RN present at bedside) and also again follow-up conversation over the phone that it is important that you stay overnight and have your self evaluated by physical therapy before deciding on discharge back to home. And since you have stated you feel back to your baseline and would like to go home regardless, please take care of yourself. If you have worsening weakness or anything other concerns please feel free to consult back to the hospital. You can use over the counter Tylenol for mild to moderate pain. Take your meds as prior. Please make sure that you are able to get your medications today by calling your pharmacy before you leave the hospital so that your treatment continuity is not broken. Pending Studies at Discharge: No Stand-Alone Forms: My [facility] [employer], Smoking Cessation Medications and DC Order Prescriptions: Continued aspirin 81 mg Tablet,Delayed Release (Dr/Ec) 81 mg PO QAM omeprazole 20 mg Tablet,Delayed Release (Dr/Ec) 20 mg PO BID metoprolol succinate 25 mg Tablet Extended Release 24 Hr 50 mg PO QAM levothyroxine [Synthroid] 150 mcg Tablet 150 mcg PO 5XWK Rx Instructions: TAKE THIS MED EVERY WEDNESDAY THRU WEDNESDAY IN THE MORNING BEFORE BREAKFAST. (DME) Omnipod Dash Pods (Gen 4) Cartridge SUBCUT insulin glargine [Lantus U-100 Insulin] 100 unit/mL Solution 25 unit SUBCUT HS insulin aspart U-100 [Novolog FlexPen U-100 Insulin] 100 unit/mL (3 mL) Insulin Pen 0 unit SUBCUT TIDM Rx Instructions: PER SLIDING SCALE duloxetine 60 mg Capsule,Delayed Release(Dr/Ec) 60 mg PO QAM melatonin 10 mg Tablet 10 mg PO HS Mounjaro 10 mg/0.5 mL Pen Injector 10 mg SUBCUT WK Rx Instructions: TAKE THIS MED EVERY WEDNESDAY calcium carb and citrate-vitD3 600 mg-12.5 mcg (500 unit) Tablet Extended Release 1 tab PO QAM magnesium oxide 400 mg magnesium Tablet 400 mg PO HS isosorbide mononitrate 30 mg Tablet Extended Release 24 Hr 30 mg PO QAM rosuvastatin 20 mg Tablet 20 mg PO DAILY Linzess 72 mcg Capsule 72 mcg PO DAILYBB triamcinolone acetonide 0.1 % Ointment 1 applic TOPICAL BID PRN (Reason: Skin Irritation) Rx Instructions: APPLY TO HANDS AND FEET levothyroxine 75 mcg Tablet 75 mcg PO 2XWK Rx Instructions: TAKE THIS MED EVERY WEDNESDAY AND WEDNESDAY IN THE MORNING BEFORE BREAKFAST. allopurinol 300 mg Tablet 300 mg PO QAM potassium chloride 20 mEq Tablet Extended Release 20 meq PO QAM acyclovir 400 mg Tablet 400 mg PO BID furosemide 40 mg Tablet 40 mg PO QAM lactulose 10 gram/15 mL Solution 15 ml PO BID PRN (Reason: Constipation) sennosides-docusate sodium 8.6-50 mg Tablet 2 tab-cap PO BID PRN (Reason: Constipation) Discharge Orders: Discharge Order (Routine); Ordered 01/30/24 Ordered By: Sal Anguiano Admission Data Admit Date/Time: 01/30/24 02:32 Attending Provider: Sal Anguiano Admit Provider: Nilton Morales Primary Care Provider: Ivonne French Other Providers: Nilton Morales
[2024-01-30] MEDS ORDERED: LANTUS PER UNIT CHARGE SQ SCH (21:00)
[2024-01-31] MEDS ORDERED: LEVOTHYROXINE SODIUM 150 MCG TABLET PO SCH (06:30)
== END 2024-01-30 15:51 | disposition home or self-care (01) | DRG 637 ==
LOC: ED 21:03 → EDINP 01-30 02:32